=== PATIENT | male | born 1950 | race Caucasian/White ===

== ENCOUNTER 2016-09-15 08:14 | Emergency (ER) | payer OTHER ==
--- NOTE | 2016-09-15 08:38 | ED ---
Fall HPI - General Chief Complaint: Fall Stated Complaint: LEFT SHOULDER INJURY FROM FALL Time Seen by Provider: 09/15/16 08:14 Source: patient, EMS, RN notes reviewed Mode of arrival: EMS - History of Present Illness Initial Comments: This is a 66-year-old male who states he tripped while he was walking prior to admission he fell landing on his left shoulder. He complains left shoulder pain. He denies any head neck or back pain. He denies any loss of function to his lower extremities he has limited range of motion of left upper because of the pain. He points to the anterior left shoulder. He denies any hand wrist or forearm or elbow pain on the left side. No other injuries are reported. MD Complaint: fall - Related Data Home Medications Medication Instructions Recorded Confirmed amLODIPine [Norvasc] 10 mg PO DAILY 07/29/15 09/15/16 Previous Rx's Medication Instructions Recorded Metoprolol Tartrate [Lopressor] 12.5 mg PO BID #60 tab 12/31/14 Ibuprofen 800 mg PO Q6HR PRN #20 tablet 09/15/16 Allergies Allergy/AdvReac Type Severity Reaction Status Date / Time No Known Allergies Allergy Verified 09/15/16 08:41 Review of Systems ROS Statement: Those systems with pertinent positive or pertinent negative responses have been documented in the HPI. ROS Other: All systems not noted in ROS Statement are negative. Past Medical History Past Medical History: Hypertension Additional Past Medical History / Comment(s): Hx calculus of bile duct, acute cholecystitis, pancreatitis. History of Any Multi-Drug Resistant Organisms: None Reported Past Surgical History: Orthopedic Surgery Additional Past Surgical History / Comment(s): cervical surgery, bilateral cataract removal with lens implants, umbilical hernia as a baby, bile duct stent , ERCP, C3-6 plate Past Anesthesia/Blood Transfusion Reactions: No Reported Reaction Past Psychological History: No Psychological Hx Reported Additional Psychological History / Comment(s): Pt states at this time his younger brother lives with him. He ambulates with a cane. He does not drive. He has helpful neighbors who will drive him places. Smoking Status: Current every day smoker Past Alcohol Use History: Occasional Additional Past Alcohol Use History / Comment(s): Started smoking at age 27, smokes less than a ppd. Past Drug Use History: None Reported - Past Family History Father Family Medical History: Cancer Additional Family Medical History / Comment(s): Melanoma Mother Family Medical History: Cancer Additional Family Medical History / Comment(s): Breast cancer. General Exam - General Exam Comments Initial Comments: This is a well-developed well-nourished awake alert oriented times 3 male he does demonstrate a [place] Coma Scale of 15 Limitations: no limitations General appearance: alert Head exam: Present: atraumatic, normocephalic, normal inspection Eye exam: Present: normal appearance, PERRL, EOMI. Absent: scleral icterus, conjunctival injection, periorbital swelling ENT exam: Present: normal exam, mucous membranes moist Neck exam: Present: normal inspection, full ROM. Absent: tenderness, meningismus, lymphadenopathy Respiratory exam: Present: normal lung sounds bilaterally. Absent: respiratory distress, wheezes, rales, rhonchi, stridor Cardiovascular Exam: Present: regular rate, normal rhythm, normal heart sounds. Absent: systolic murmur, diastolic murmur, rubs, gallop, clicks GI/Abdominal exam: Present: soft, normal bowel sounds. Absent: distended, tenderness, guarding, rebound, rigid Extremities exam: Present: full ROM, tenderness (Tenderness to the anterior shoulder no clinical evidence of subluxation or some tenderness over the distal left clavicle no definite before meals step-off no crepitation. Distal to the proximal humerus no tenderness. Full range of motion elbow. There is some tenderness over the before meals joint with some evidence of separation.), normal capillary refill. Absent: pedal edema, joint swelling, calf tenderness Back exam: Present: normal inspection Neurological exam: Present: alert, oriented X3, CN II-XII intact Psychiatric exam: Present: normal affect, normal mood Skin exam: Present: warm, dry, intact, normal color. Absent: rash Course Vital Signs 09/15/16 08:15 Temperature 97.5 F L Pulse Rate 86 Respiratory 18 Rate Blood Pressure 146/76 O2 Sat by Pulse 98 Oximetry Medical Decision Making - Medical Decision Making I did discuss [employer] the patient he will be discharged with sling pain medication and orthopedic referral. - Radiology Data Radiology results: report reviewed (I did review the imaging and reports are is evidence of a grade 3 before meals separation a lot of no definite fractures with dorsal suspicious possible chip seen.), image reviewed Disposition Clinical Impression: Fall, Grade 3 separation of left shoulder Disposition: HOME SELF-CARE Condition: Good Instructions: Fall Prevention for Older Adults (ED), Acromioclavicular Separation (ED) Prescriptions: Ibuprofen 800 mg PO Q6HR PRN #20 tablet PRN Reason: Pain Referrals: Justice Silva MD [Primary Care Provider] - 1-2 days Gabriel Jensen DO [Doctor of Osteopathic Medicine] - 1-2 days
[2016-09-15] MEDS: IBUPROFEN 800 MG TAB PO STA (08:43)
--- NOTE | 2016-09-15 09:34 | XR ---
EXAMINATION TYPE: XR clavicle LT DATE OF EXAM: 09/15/2016 COMPARISON: NONE HISTORY: Pain TECHNIQUE: 2 views submitted FINDINGS: There is widening of the AC joint and elevation of the left clavicle. Bony density noted ap pears corticated. Clavicle grossly intact. Previous surgery involving the cervical spine and arthropa thy of the AC joint. IMPRESSION: 1. Findings are suggestive of grade 3 AC joint separation. 2. Nonspecific bony densities in the region of the AC joint could potentially represent tiny chip fra cture. Suspect this is more likely chronic given appears to be well corticated.
--- NOTE | 2016-09-15 09:35 | XR ---
EXAMINATION TYPE: XR shoulder limited LT DATE OF EXAM: 09/15/2016 COMPARISON: NONE HISTORY: Pain TECHNIQUE: 2 views left shoulder FINDINGS: Glenohumeral joint maintained. Humerus intact. There is marked elevation of the clavicle an d widening of the AC joint. Tiny bony densities are seen superior to the acromion. IMPRESSION: 1. AC joint separation grade 3. 2. Tiny bony densities in the soft tissues may been the basis of previous trauma. Tiny chip fracture not entirely excluded correlate with point tenderness.
[2016-09-15 10:09] VITALS: BP 134/76; PULSE 81; RESP 16; TEMP 97.9
== END 2016-09-15 10:37 | disposition home or self-care (01) ==
LOC: EC 08:14
DX: S43.102A Unspecified dislocation of left acromioclavicular joint, initial encounter (principal); I10 Essential (primary) hypertension; F17.200 Nicotine dependence, unspecified, uncomplicated; Z79.899 Other long term (current) drug therapy; W18.09XA Striking against other object with subsequent fall, initial encounter; Y93.01 Activity, walking, marching and hiking; Y92.009 Unspecified place in unspecified non-institutional (private) residence as the place of occurrence of the external cause
CPT/HCPCS: 99284

== ENCOUNTER 2018-06-29 01:11 | Inpatient (IN) | payer MEDICARE, OTHER ==
--- NOTE | 2018-06-29 01:31 | ED ---
SOB HPI - General Chief Complaint: Shortness of Breath Stated Complaint: NOEMI Time Seen by Provider: 06/29/18 01:25 Source: patient, EMS Mode of arrival: EMS Limitations: no limitations - History of Present Illness Initial Comments: R be 68-year-old gentleman with limited past medical history who presents to the emergency department today for evaluation of shortness of breath. Patient reports that over the past couple days she's been feeling progressively more short of breath today he feels like he is coughing up a lot of clear fluid. He's never experienced anything like this in the past. Patient denies any history of congestive heart failure or heart disease. He denies any history of COPD. He is not a smoker. Signed patient denies any fevers but does admit to feeling cold and tired. He denies any specific body aches was does report he's been having a pretty significant charley horse-like discomfort in his right calf. Skin happening intermittently throughout the evening and throughout his time in the emergency department. Denies any chest pain or palpitations. Denies any abdominal pain or change in bowel or bladder habits. - Related Data Home Medications Medication Instructions Recorded Confirmed amLODIPine [Norvasc] 10 mg PO DAILY 07/29/15 09/15/16 Previous Rx's Medication Instructions Recorded Metoprolol Tartrate [Lopressor] 12.5 mg PO BID #60 tab 12/31/14 Ibuprofen 800 mg PO Q6HR PRN #20 tablet 09/15/16 HYDROcodone/APAP 5-325MG [[place] 5] 1 each PO Q6HR PRN #12 tab 03/10/17 Allergies Allergy/AdvReac Type Severity Reaction Status Date / Time No Known Allergies Allergy Verified 06/29/18 01:19 Review of Systems ROS Statement: Those systems with pertinent positive or pertinent negative responses have been documented in the HPI. ROS Other: All systems not noted in ROS Statement are negative. Past Medical History Past Medical History: Hypertension Additional Past Medical History / Comment(s): Hx calculus of bile duct, acute cholecystitis, pancreatitis. History of Any Multi-Drug Resistant Organisms: None Reported Past Surgical History: Orthopedic Surgery Additional Past Surgical History / Comment(s): cervical surgery, bilateral cataract removal with lens implants, umbilical hernia as a baby, bile duct stent, ERCP, C3-6 plate Past Anesthesia/Blood Transfusion Reactions: No Reported Reaction Past Psychological History: No Psychological Hx Reported Smoking Status: Current every day smoker Past Alcohol Use History: Occasional Past Drug Use History: None Reported - Past Family History Father Family Medical History: Cancer Additional Family Medical History / Comment(s): Melanoma Mother Family Medical History: Cancer Additional Family Medical History / Comment(s): Breast cancer. General Exam - General Exam Comments Initial Comments: Physical Exam GENERAL: Chronically ill-appearing gentleman who appears much older than his stated age HENT: Normocephalic, Atraumatic. EYES: PERRL, EOMI Conjunctival pallor PULMONARY: Tachypnea, wet lung sounds Productive cough of clear sputum CARDIOVASCULAR: Bradycardic, regular 1+ pitting edema bilateral lower extremities ABDOMEN: Soft and nontender with normal bowel sounds. SKIN: Skin is pale and dry : Deferred NEUROLOGIC: Patient is alert and oriented x3. Moving all extremities spontaneously MUSCULOSKELETAL: Normal extremities with adequate strength and full range of motion. No lower extremity swelling or edema. No calf tenderness. PSYCHIATRIC: Normal psychiatric evaluation. Limitations: no limitations Limitations: no limitations Course Vital Signs 06/29/18 06/29/18 06/29/18 01:14 01:32 02:00 Pulse Rate 62 56 L 60 Respiratory 20 20 20 Rate Blood Pressure 88/46 90/44 90/44 O2 Sat by Pulse 95 100 Oximetry 06/29/18 06/29/18 06/29/18 02:30 03:00 03:30 Pulse Rate 60 60 64 Respiratory 20 20 20 Rate Blood Pressure 90/45 89/41 114/60 O2 Sat by Pulse 97 96 Oximetry Medical Decision Making - Medical Decision Making The patient was seen and evaluated, history was obtained from the patient Patient has not seen often in in our hospital has limited past medical history he is presenting with generalized malaise and cough productive of clear sputum Upon initial evaluation the patient's noted be hypotensive, bradycardic and hypothermic Sepsis workup was initiated as well as a TSH and evaluation for heart failure Labs resulted with significant abnormalities including acute anemia with hemoglobin of only 8.1, most recent hemoglobin was 14 but that was a number of years ago Patient has chronic kidney disease at baseline baseline creatinine is usually to however today his creatinine is greater than 4 with a very high BUNs suggestive of prerenal cause. I suspect that this is multifactorial relating to the acute anemia possible heart failure and dehydration TSH resulted greater than 8, this is indicative of hypothyroidism After patient's hemoglobin resulted low a stool guaiac was obtained. This is noted to be positive however there was no gross melena or bleeding. GI will be consult to during this admission. [facility] orders were placed - Lab Data Result diagrams: 06/29/18 01:56 06/29/18 01:56 Lab Results 06/29/18 06/29/18 06/29/18 Range/Units 01:56 01:56 01:56 WBC 7.7 (3.8-10.6) k/uL RBC 2.34 L (4.30-5.90) m/uL Hgb 8.1 L (13.0-17.5) gm/dL Hct 27.2 L (39.0-53.0) % MCV 116.4 H (80.0-100.0) fL MCH 34.6 (25.0-35.0) pg MCHC 29.8 L (31.0-37.0) g/dL RDW 18.1 H (11.5-15.5) % PT (9.0-12.0) sec INR (<1.2) APTT (22.0-30.0) sec Sodium 142 (137-145) mmol/L Potassium 5.0 (3.5-5.1) mmol/L Chloride 116 H (98-107) mmol/L Carbon Dioxide 11 L (22-30) mmol/L Anion Gap 15 mmol/L BUN 82 H (9-20) mg/dL Creatinine 4.84 H (0.66-1.25) mg/dL Est GFR (CKD-EPI)AfAm 13 (>60 ml/min/1.73 sqM) Est GFR (CKD-EPI)NonAf 12 (>60 ml/min/1.73 sqM) Glucose 85 (74-99) mg/dL Plasma Lactic Acid Fred 1.0 (0.7-2.0) mmol/L Calcium 6.5 L (8.4-10.2) mg/dL Total Bilirubin 0.3 (0.2-1.3) mg/dL AST 55 (17-59) U/L ALT 55 (21-72) U/L Alkaline Phosphatase 109 (38-126) U/L Troponin I (0.000-0.034) ng/mL Total Protein 5.1 L (6.3-8.2) g/dL Albumin 2.6 L (3.5-5.0) g/dL TSH 8.700 H (0.465-4.680) mIU/L Free T4 0.47 L (0.78-2.19) ng/dL Stool Occult Blood (Negative) 06/29/18 06/29/18 06/29/18 Range/Units 01:56 01:56 04:16 WBC (3.8-10.6) k/uL RBC (4.30-5.90) m/uL Hgb (13.0-17.5) gm/dL Hct (39.0-53.0) % MCV (80.0-100.0) fL MCH (25.0-35.0) pg MCHC (31.0-37.0) g/dL RDW (11.5-15.5) % PT 10.5 (9.0-12.0) sec INR 1.0 (<1.2) APTT 31.8 H (22.0-30.0) sec Sodium (137-145) mmol/L Potassium (3.5-5.1) mmol/L Chloride (98-107) mmol/L Carbon Dioxide (22-30) mmol/L Anion Gap mmol/L BUN (9-20) mg/dL Creatinine (0.66-1.25) mg/dL Est GFR (CKD-EPI)AfAm (>60 ml/min/1.73 sqM) Est GFR (CKD-EPI)NonAf (>60 ml/min/1.73 sqM) Glucose (74-99) mg/dL Plasma Lactic Acid Fred (0.7-2.0) mmol/L Calcium (8.4-10.2) mg/dL Total Bilirubin (0.2-1.3) mg/dL AST (17-59) U/L ALT (21-72) U/L Alkaline Phosphatase (38-126) U/L Troponin I <0.012 (0.000-0.034) ng/mL Total Protein (6.3-8.2) g/dL Albumin (3.5-5.0) g/dL TSH (0.465-4.680) mIU/L Free T4 (0.78-2.19) ng/dL Stool Occult Blood Positive (Negative) Disposition Clinical Impression: Acute anemia, GIB (gastrointestinal bleeding), Hypothyroid, MUMTAZ (acute kidney injury), Dehydration Disposition: ADMITTED IP TO THIS HOSP Condition: Serious Is patient prescribed a controlled substance at d/c from ED?: No Referrals: Justice Silva MD [Primary Care Provider] - 1-2 days
[2018-06-29] MEDS ORDERED: SODIUM CHLORIDE 0.9% 500 ML 500 ML IV SCH (01:45)
[2018-06-29 02:06] LABS: Anisocytosis Slight; Basophils % (A) 0 %; Eosinophils # (A) 0.1 k/uL (0-0.7); Eosinophils % (A) 1 %; HCT 27.2 % (39.0-53.0); HGB 8.1 gm/dL (13.0-17.5); Hypochromasia Marked; Lymphocytes # (A) 0.9 k/uL (1.0-4.8); Lymphocytes % (A) 12 %; MCH 34.6 pg (25.0-35.0); MCHC 29.8 g/dL (31.0-37.0); MCV 116.4 fL (80.0-100.0); Monocytes # (A) 0.3 k/uL (0-1.0); Monocytes % (A) 4 %; Neutrophils # (A) 6.3 k/uL (1.3-7.7); Neutrophils % (A) 83 %; Poikilocytosis Slight; RBC 2.34 m/uL (4.30-5.90); RDW 18.1 % (11.5-15.5); WBC 7.7 k/uL (3.8-10.6)
[2018-06-29 02:16] LABS: Albumin 2.6 g/dL (3.5-5.0); Total Bilirubin 0.3 mg/dL (0.2-1.3); Total Protein 5.1 g/dL (6.3-8.2)
[2018-06-29 02:20] LABS: Partial Thromboplastin Time 31.8 sec (22.0-30.0); Prothrombin Time 10.5 sec (9.0-12.0)
[2018-06-29 02:22] LABS: Calcium 6.5 mg/dL (8.4-10.2)
[2018-06-29] MEDS ORDERED: NALOXONE 0.4 MG/ML 1 ML VIAL IV PRN (02:51)
[2018-06-29] MEDS ORDERED: FUROSEMIDE 10 MG/ML 2 ML VIAL IV PRN (02:58)
[2018-06-29] MEDS ORDERED: SODIUM CHLORIDE 0.9% 1,000 ML IV ONE (02:58)
[2018-06-29 03:13] LABS: T4, Free (Free Thyroxine) 0.47 ng/dL (0.78-2.19)
[2018-06-29 05:52] LABS: Platelet Count 81 k/uL (150-450)
[2018-06-29 05:53] LABS: Macrocytosis Marked; Poikilocytosis (M) Present
[2018-06-29 06:49] LABS: Appearance,Urine Cloudy (Clear); Bilirubin,Urine Negative (Negative); Blood,Urine Moderate (Negative); Color,Urine Yellow; Glucose,Urine (UA) Negative (Negative); Ketones,Urine Negative (Negative); Leukocyte Esterase,Urine Moderate (Negative); Mucus,Urine Rare /hpf; Nitrite,Urine Negative (Negative); PH, Urine 5.5 (5.0-8.0); Protein,Urine 2+ (Negative); RBC,Urine 56 /hpf (0-5); Specific Gravity,Urine 1.015 (1.001-1.035); Squamous Epithelial Cell,Urine <1 /hpf (0-4); Urobilinogen,Urine <2.0 mg/dL (<2.0); WBC,Urine 26 /hpf (0-5)
--- NOTE | 2018-06-29 07:36 | XR ---
EXAMINATION TYPE: XR chest 2V DATE OF EXAM: 06/29/2018 COMPARISON: 12/30/2014 HISTORY: Fever TECHNIQUE: Frontal and lateral views of the chest are obtained. FINDINGS: Flattening of the diaphragms on the lateral view relates underlying COPD. Chronic healed l eft fracture deformity is seen of the humerus. Only trace pleural effusions remain, improved from the prior. No focal consolidation or pneumothorax. Cervical fusion device is partially visualized. Degen erative changes of the osseous structures are redemonstrated. Cardiomediastinal silhouette is stable. Minimal pulmonary vascular congestion is suspected. IMPRESSION: 1. Improved aeration of the left lung base. No focal consolidation to suggest pneumonia. 3. Very mild pulmonary vascular congestion.
[2018-06-29] MEDS ORDERED: LEVOTHYROXINE IVP 100 MCG/5 ML VIAL IV SCH (09:00)
--- NOTE | 2018-06-29 13:20 | P.CONS ---
History of Present Illness - Reason for Consult Consult date: 06/29/18 [facility] Requesting physician: Sabas Dukes - Chief Complaint Dyspnea - History of Present Illness 68-year-old gentleman admitted with shortness of breath 2-3 days with exertion. Past medical history of EtOH abuse drinks liquor beer on a daily basis, distal common bile duct stricture 2014 pancreatitis with previous biliary stenting, thrombocytopenia, macrocytic anemia. Admission hemoglobin 8.1. MCV 116. Platelet 81,000. INR 1.0. Previous hemoglobin 2016 was 14.6. BUN 82. Creatinine 4.8. FOBT positive. Chest x-ray no pneumonia. Very mild pulmonary vascular congestion. LFTs within normal limits. Troponin less than 0.012. Denies overt bleeding such as hematemesis hematochezia or melena. No history of GI bleed. No recent EGD colonoscopy. Mild indigestion over the last few days nothing severe no emesis. Review of Systems Constitutional: Denies fever, chills, sweats, weight gain, or loss. HEENT: Negative for migraines, blurred vision or loss, earaches, drainage, tinnitus, oral mucosal lesions, dysphagia, or odynophagia. Cardiac: Negative for chest pain, arrhythmias, or palpitation. Respiratory: Admitted with for shortness of breath, denies hemoptysis, cough, or sputum production. Gastrointestinal: See HPI for pertinent findings. Genitourinary: Negative for hematuria, urgency, frequency, polyuria, dysuria, or penile discharge. Musculoskeletal: Negative for muscle aches, swelling, arthritis, and arthralgias. Neurologic: Negative for stroke or TIA. Endocrine: Negative for thyroid problems. Skin: Negative for rash or itching. Psychiatric: Negative history for depression and anxiety Past Medical History Past Medical History: Hypertension Additional Past Medical History / Comment(s): Hx calculus of bile duct, acute cholecystitis, pancreatitis. History of Any Multi-Drug Resistant Organisms: None Reported Past Surgical History: Orthopedic Surgery Additional Past Surgical History / Comment(s): cervical surgery, bilateral cataract removal with lens implants, umbilical hernia as a baby, bile duct stent, ERCP, C3-6 plate Past Anesthesia/Blood Transfusion Reactions: No Reported Reaction Past Psychological History: No Psychological Hx Reported Smoking Status: Current every day smoker Past Alcohol Use History: Occasional Past Drug Use History: None Reported - Past Family History Father Family Medical History: Cancer Additional Family Medical History / Comment(s): Melanoma Mother Family Medical History: Cancer Additional Family Medical History / Comment(s): Breast cancer. Medications and Allergies Home Medications Medication Instructions Recorded Confirmed Type Metoprolol Tartrate [Lopressor] 12.5 mg PO BID #60 tab 12/31/14 06/29/18 Rx Ergocalciferol [Vitamin D2] 50,000 unit PO Q7D 06/29/18 06/29/18 History Magnesium Oxide [Mag-Ox] 400 mg PO DAILY 06/29/18 06/29/18 History Sodium Bicarbonate Tab 650 mg PO DAILY 06/29/18 06/29/18 History amLODIPine BESYLATE [Norvasc] 10 mg PO DAILY 06/29/18 06/29/18 History Allergies Allergy/AdvReac Type Severity Reaction Status Date / Time No Known Allergies Allergy Verified 06/29/18 10:05 Physical Exam Vitals: Vital Signs Temp Pulse Resp BP Pulse Ox 06/29/18 10:17 98 F 73 22 98/51 98 06/29/18 09:40 98.2 F 22 102/48 98 06/29/18 09:01 97.3 F L 72 22 99/52 98 06/29/18 08:39 97.4 F L 74 22 99/50 99 06/29/18 07:54 97.3 F L 74 22 97/49 99 06/29/18 07:14 97.3 F L 73 24 96/49 99 06/29/18 06:30 68 12 90/46 86 L 06/29/18 06:00 71 12 89/44 97 06/29/18 05:30 68 12 89/53 97 06/29/18 05:00 66 12 112/52 100 06/29/18 04:30 71 16 99/39 100 06/29/18 04:00 69 16 103/47 99 06/29/18 03:30 64 20 114/60 96 06/29/18 03:00 60 20 89/41 06/29/18 02:30 60 20 90/45 97 06/29/18 02:00 60 20 90/44 100 06/29/18 01:32 56 L 20 90/44 95 06/29/18 01:14 62 20 88/46 Intake and Output 06/28/18 06/29/18 06/29/18 22:59 06:59 14:59 Intake Total 0 Balance 0 Intake: Blood Product 0 Rc As-1 Unit 0 [id number] Rc As-1 Unit 0 [id number] Other: Weight 64.41 kg General appearance: The patient is alert, oriented, in no acute distress. HET: Head is normocephalic and atraumatic. Pupils are equal and reactive. Oropharynx is clear without lesions. Neck: Supple without lymphadenopathy. Trachea midline. Heart: S1 S2. Regular rate and rhythm. Lungs: Congested diminished in bases bilaterally intermittent dry cough. Abdomen: Soft, nontender, nondistended with bowel sounds. No peritoneal signs. No palpable organomegaly or masses. Extremities: Normal skin color and turgor. No cyanosis, rash, ulceration, clubbing, or edema. Radial and pedal pulses are 2/4 bilaterally. Neurological: No focal deficits. Strength and sensation are grossly intact. Results CBC & Chem 7: 06/29/18 01:56 06/29/18 01:56 Labs: Abnormal Lab Results - Last 24 Hours (Table) 06/29/18 06/29/18 06/29/18 Range/Units 01:56 01:56 01:56 RBC 2.34 L (4.30-5.90) m/uL Hgb 8.1 L (13.0-17.5) gm/dL Hct 27.2 L (39.0-53.0) % MCV 116.4 H (80.0-100.0) fL MCHC 29.8 L (31.0-37.0) g/dL RDW 18.1 H (11.5-15.5) % Plt Count 81 L (150-450) k/uL Lymphocytes # 0.9 L (1.0-4.8) k/uL APTT 31.8 H (22.0-30.0) sec Chloride 116 H (98-107) mmol/L Carbon Dioxide 11 L (22-30) mmol/L BUN 82 H (9-20) mg/dL Creatinine 4.84 H (0.66-1.25) mg/dL Calcium 6.5 L (8.4-10.2) mg/dL Total Protein 5.1 L (6.3-8.2) g/dL Albumin 2.6 L (3.5-5.0) g/dL TSH 8.700 H (0.465-4.680) mIU/L Free T4 0.47 L (0.78-2.19) ng/dL Urine Protein (Negative) Urine Blood (Negative) Ur Leukocyte Esterase (Negative) Urine RBC (0-5) /hpf Urine WBC (0-5) /hpf Urine Mucus (None) /hpf Crossmatch 06/29/18 06/29/18 Range/Units 03:30 06:22 RBC (4.30-5.90) m/uL Hgb (13.0-17.5) gm/dL Hct (39.0-53.0) % MCV (80.0-100.0) fL MCHC (31.0-37.0) g/dL RDW (11.5-15.5) % Plt Count (150-450) k/uL Lymphocytes # (1.0-4.8) k/uL APTT (22.0-30.0) sec Chloride (98-107) mmol/L Carbon Dioxide (22-30) mmol/L BUN (9-20) mg/dL Creatinine (0.66-1.25) mg/dL Calcium (8.4-10.2) mg/dL Total Protein (6.3-8.2) g/dL Albumin (3.5-5.0) g/dL TSH (0.465-4.680) mIU/L Free T4 (0.78-2.19) ng/dL Urine Protein 2+ H (Negative) Urine Blood Moderate H (Negative) Ur Leukocyte Esterase Moderate H (Negative) Urine RBC 56 H (0-5) /hpf Urine WBC 26 H (0-5) /hpf Urine Mucus Rare H (None) /hpf Crossmatch See Detail Chest x-ray: report reviewed (Dr. Bean) Assessment and Plan (1) Macrocytic anemia Narrative/Plan: 68-year-old male with a history of underlying daily EtOH abuse suspect underlying alcohol liver disease presents with acute kidney injury symptomatic anemia suspect component of acute blood loss dyspnea without overt bleeding macrocytic anemia underlying thrombocytopenia with positive FOBT. Underlying peptic ulcer disease portal gastropathy esophageal gastric varices in the setting of long-standing EtOH abuse bleeding AVM cannot be excluded. Current Visit: Yes Status: Acute Code(s): D53.9 - NUTRITIONAL ANEMIA, UNSPECIFIED SNOMED Code(s): 09483610 (2) Thrombocytopenia Current Visit: Yes Status: Acute Code(s): D69.6 - THROMBOCYTOPENIA, UNS PECIFIED SNOMED Code(s): 913992858 (3) Dyspnea Current Visit: Yes Status: Acute Code(s): R06.00 - DYSPNEA, UNSPECIFIED SNOMED Code(s): 698791710 (4) MUMTAZ (acute kidney injury) Current Visit: Yes Status: Acute Code(s): N17.9 - ACUTE KIDNEY FAILURE, UNSPECIFIED SNOMED Code(s): 99467423 Plan: 1. Stabilization of respiratory patient is still reporting shortness of breath status. Consideration for inpatient EGD colonoscopy per clinical course. Daily CBC. Protonix 40 mg twice daily. Alcohol abstinence advised. Clear liquid diet. Will follow closely with you. Thank you for this kind referral and the opportunity to participate in the care of your patient. This consultation was discussed with Dr. Bean. The impression and plan of care have been directed as dictated.
[2018-06-29] MEDS: PANTOPRAZOLE 40 MG/10 ML VIAL IVP SCH ×2 (16:04→20:46)
--- NOTE | 2018-06-29 16:14 | P.HPIM ---
History of Present Illness This is a pleasant 68 years old male with past medical history of hypertension and pancreatitis, status post ERCP and bile duct stent with cholecystitis, alcohol abuse. Presents because of dyspnea of one week duration getting wors ened over the last 3-4 days duration. With no chest pain, no nausea vomiting. The patient says he has a lot of is patent. He has harsh breath sounds that looks like weight. He has bilateral leg swelling. Patient looks tired and weak On admission his hemoglobin is 8.1, platelets 81, WBC 7.7. INR 1.0, sodium 142, creatinine 4.8, baseline creatinine 1.5-2.0. TSH 8.7, free T4 is low at 0.47. Urinalysis suspicious for infection. He is status post 2 units of blood transfusion . Chest x-ray showing mild pulmonary congestion as per radiologist's report. FOBT is positive. EKG shows sinus bradycardia at 59 with QTC is 522. Review of Systems CONSTITUTIONAL: No fever, no malaise, no fatigue. HEENT: No recent visual problems or hearing problems. Denied any sore throat. CARDIOVASCULAR: No orthopnea, PND, no palpitations, no syncope. PULMONARY: No shortness of breath, no cough, no hemoptysis. GASTROINTESTINAL: No diarrhea, no nausea, no vomiting, no abdominal pain. Normoactive bowel sounds. NEUROLOGICAL: No headaches, no weakness, no numbness. HEMATOLOGICAL: Denies any bleeding or petechiae. GENITOURINARY: Denies any burning micturition, frequency, or urgency. MUSCULOSKELETAL/RHEUMATOLOGICAL: Denies any joint pain, swelling, or any muscle pain. ENDOCRINE: Denies any polyuria or polydipsia. Past Medical History Past Medical History: Hypertension Additional Past Medical History / Comment(s): Hx calculus of bile duct, acute cholecystitis, pancreatitis. History of Any Multi-Drug Resistant Organisms: None Reported Past Surgical History: Orthopedic Surgery Additional Past Surgical History / Comment(s): cervical surgery, bilateral cataract removal with lens implants, umbilical hernia as a baby, bile duct stent, ERCP, C3-6 plate Past Anesthesia/Blood Transfusion Reactions: No Reported Reaction Past Psychological History: No Psychological Hx Reported Smoking Status: Current every day smoker Past Alcohol Use History: Occasional Past Drug Use History: None Reported - Past Family History Father Family Medical History: Cancer Additional Family Medical History / Comment(s): Melanoma Mother Family Medical History: Cancer Additional Family Medical History / Comment(s): Breast cancer. Medications and Allergies Home Medications Medication Instructions Recorded Confirmed Type Metoprolol Tartrate [Lopressor] 12.5 mg PO BID #60 tab 12/31/14 06/29/18 Rx Ergocalciferol [Vitamin D2] 50,000 unit PO Q7D 06/29/18 06/29/18 History Magnesium Oxide [Mag-Ox] 400 mg PO DAILY 06/29/18 06/29/18 History Sodium Bicarbonate Tab 650 mg PO DAILY 06/29/18 06/29/18 History amLODIPine BESYLATE [Norvasc] 10 mg PO DAILY 06/29/18 06/29/18 History Allergies Allergy/AdvReac Type Severity Reaction Status Date / Time No Known Allergies Allergy Verified 06/29/18 10:05 Physical Exam Vitals: Vital Signs Temp Pulse Pulse Resp BP BP Pulse Ox 06/29/18 14:57 97.7 F 66 16 112/57 95 06/29/18 12:03 72 24 108/55 98 06/29/18 12:00 79.9 F L 69 17 122/61 96 06/29/18 11:35 70 24 115/78 98 06/29/18 11:24 97.8 F 72 22 106/65 98 06/29/18 10:50 98 F 70 22 103/50 98 06/29/18 10:17 98 F 73 22 98/51 98 06/29/18 09:40 98.2 F 22 102/48 98 06/29/18 09:01 97.3 F L 72 22 99/52 98 06/29/18 08:39 97.4 F L 74 22 99/50 99 06/29/18 07:54 97.3 F L 74 22 97/49 99 06/29/18 07:14 97.3 F L 73 24 96/49 99 06/29/18 06:30 68 12 90/46 86 L 06/29/18 06:00 71 12 89/44 97 06/29/18 05:30 68 12 89/53 97 06/29/18 05:00 66 12 112/52 100 06/29/18 04:30 71 16 99/39 100 06/29/18 04:00 69 16 103/47 99 06/29/18 03:30 64 20 114/60 96 06/29/18 03:00 60 20 89/41 06/29/18 02:30 60 20 90/45 97 06/29/18 02:00 60 20 90/44 100 06/29/18 01:32 56 L 20 90/44 95 06/29/18 01:14 62 20 88/46 Intake and Output 06/29/18 06/29/18 06/29/18 06:59 14:59 22:59 Intake Total 0 Balance 0 Intake: Blood Product 0 Rc As-1 Unit 0 [id number] Rc As-1 Unit 0 [id number] Other: Voiding Method Indwelling Catheter Weight 64.41 kg GENERAL: The patient is alert and oriented x3, not in any acute distress. Well developed, well nourished. HEENT: Pupils are round and equally reacting to light. EOMI. No scleral icterus. No conjunctival pallor. Normocephalic, atraumatic. No pharyngeal erythema. No thyromegaly. CARDIOVASCULAR: S1 and S2 present. No murmurs, rubs, or gallops. -PULMONARY: Chest is clear to auscultation, no wheezing . Bilateral course crackles. ABDOMEN: Soft, nontender, nondistended, normoactive bowel sounds. No palpable organomegaly. MUSCULOSKELETAL: No joint swelling or deformity. -EXTREMITIES: No cyanosis, clubbing, . Bilateral leg edema NEUROLOGICAL: Gross neurological examination did not reveal any focal deficits. SKIN: No rashes. Results CBC & Chem 7: 06/29/18 01:56 06/29/18 01:56 Labs: Abnormal Lab Results - Last 24 Hours (Table) 06/29/18 06/29/18 06/29/18 Range/Units 01:56 01:56 01:56 RBC 2.34 L (4.30-5.90) m/uL Hgb 8.1 L (13.0-17.5) gm/dL Hct 27.2 L (39.0-53.0) % MCV 116.4 H (80.0-100.0) fL MCHC 29.8 L (31.0-37.0) g/dL RDW 18.1 H (11.5-15.5) % Plt Count 81 L (150-450) k/uL Lymphocytes # 0.9 L (1.0-4.8) k/uL APTT 31.8 H (22.0-30.0) sec Chloride 116 H (98-107) mmol/L Carbon Dioxide 11 L (22-30) mmol/L BUN 82 H (9-20) mg/dL Creatinine 4.84 H (0.66-1.25) mg/dL Calcium 6.5 L (8.4-10.2) mg/dL Total Protein 5.1 L (6.3-8.2) g/dL Albumin 2.6 L (3.5-5.0) g/dL TSH 8.700 H (0.465-4.680) mIU/L Free T4 0.47 L (0.78-2.19) ng/dL Urine Protein (Negative) Urine Blood (Negative) Ur Leukocyte Esterase (Negative) Urine RBC (0-5) /hpf Urine WBC (0-5) /hpf Urine Mucus (None) /hpf Crossmatch 06/29/18 06/29/18 Range/Units 03:30 06:22 RBC (4.30-5.90) m/uL Hgb (13.0-17.5) gm/dL Hct (39.0-53.0) % MCV (80.0-100.0) fL MCHC (31.0-37.0) g/dL RDW (11.5-15.5) % Plt Count (150-450) k/uL Lymphocytes # (1.0-4.8) k/uL APTT (22.0-30.0) sec Chloride (98-107) mmol/L Carbon Dioxide (22-30) mmol/L BUN (9-20) mg/dL Creatinine (0.66-1.25) mg/dL Calcium (8.4-10.2) mg/dL Total Protein (6.3-8.2) g/dL Albumin (3.5-5.0) g/dL TSH (0.465-4.680) mIU/L Free T4 (0.78-2.19) ng/dL Urine Protein 2+ H (Negative) Urine Blood Moderate H (Negative) Ur Leukocyte Esterase Moderate H (Negative) Urine RBC 56 H (0-5) /hpf Urine WBC 26 H (0-5) /hpf Urine Mucus Rare H (None) /hpf Crossmatch See Detail Microbiology - Last 24 Hours (Table) 06/29/18 06:22 Urine Culture - Preliminary Urine,Catheterized Thrombosis Risk Factor Assmnt - Choose All That Apply Any of the Below Risk Factors Present?: Yes Other Risk Factors: Yes Each Risk Factor Represents 2 Points: Age 61-74 years Other congenital or acquired thrombophilia - If yes, enter type in comment: No Thrombosis Risk Factor Assessment Total Risk Factor Score: 2 Thrombosis Risk Factor Assessment Level: Low Risk Assessment and Plan Assessment: Fluid overload, with pulmonary congestion, leg swelling. Possible GI bleed Acute blood loss anemia secondary to above Urinary tract infection Acute kidney injury Chronic kidney disease stage III Hypothyroidism Essential hypertension History of pancreatitis History of acute cholecystitis History of bilateral stones status post biliary stent Plan: This is a pleasant 68 years old male who presents because of GI bleed, renal failure and UTI. Continue with IV lasix. GI consult is appreciated and they plan for EGD/colonoscopy. Continue with Protonix twice a day. Continue with thyroid hormone therapy. Pulmonary consult was called. Pain management. Labs and medication were reviewed.. Continue same treatment. Continue with symptomatic treatment. Resume home medication. Monitor lytes and vitals. DVT and GI prophylaxis. Further recommendations of the clinical course of the patient DVT prophylaxis: no heparin and review of GI bleed GI Prophylaxis: ppi Prognosis is guarded
[2018-06-29] MEDS ORDERED: FUROSEMIDE 10 MG/ML 4 ML VIAL IV ONE (16:16)
[2018-06-29 17:28] LABS: Glucose,Whole Blood 111 mg/dL (75-99)
[2018-06-29 20:12] LABS: Glucose,Whole Blood 150 mg/dL (75-99)
[2018-06-30 06:56] LABS: Glucose,Whole Blood 129 mg/dL (75-99)
[2018-06-30] MEDS: PANTOPRAZOLE 40 MG/10 ML VIAL IVP SCH ×2 (08:21→22:24)
[2018-06-30] MEDS: SODIUM BICARBONATE TAB 650 MG TAB PO SCH (08:28)
[2018-06-30] MEDS: IPRATROPIUM-ALBUTEROL 3 ML NEB INHALATION PRN ×2 (08:57→19:48)
[2018-06-30 08:59] LABS: Potassium 5.5 mmol/L (3.5-5.1)
[2018-06-30 09:00] LABS: ABG Base Excess -19.1 mmol/L; ABG HCO3 11 mmol/L (21-25); ABG Oxygen Saturation 95.8 % (94-97); ABG PCO2 39 mmHg (35-45); ABG PO2 87 mmHg (83-108); ABG TCO2 12 mmol/L (19-24)
[2018-06-30] MEDS ORDERED: amLODIPine 10 MG TAB PO SCH (09:00)
[2018-06-30] MEDS ORDERED: METOPROLOL TARTRATE 25 MG TAB PO SCH (09:00)
[2018-06-30] MEDS ORDERED: FUROSEMIDE 10 MG/ML 4 ML VIAL IV SCH (09:00)
[2018-06-30 09:05] LABS: Anisocytosis Moderate; HGB 9.9 gm/dL (13.0-17.5); Hypochromasia Marked; MCH 35.3 pg (25.0-35.0); MCHC 31.8 g/dL (31.0-37.0); Macrocytosis Marked; Mean Platelet Volume 10.2; Poikilocytosis Slight; RBC 2.79 m/uL (4.30-5.90); WBC 15.5 k/uL (3.8-10.6)
[2018-06-30 09:07] LABS: ABG PH 7.07 (7.35-7.45)
[2018-06-30 09:08] LABS: MCV 111.1 fL (80.0-100.0); Platelet Count 67 k/uL (150-450)
[2018-06-30 09:09] LABS: Calcium 6.1 mg/dL (8.4-10.2)
--- NOTE | 2018-06-30 09:11 | XR ---
EXAMINATION TYPE: XR chest 1V portable DATE OF EXAM: 06/30/2018 HISTORY: dyspnea. REFERENCE: Previous study dated 06/29/2018. FINDINGS: Heart size upper limits of normal. Pulmonary vasculature has improved. Interstitial change has improved. There continues to be a small left effusion. IMPRESSION: IMPROVING CHANGES OF PULMONARY EDEMA.
[2018-06-30 09:24] LABS: Band Neutrophils % 8 %; Metamyelocytes # (M) 0.31 k/uL (0); Metamyelocytes % 2 %; Myelocytes # (M) 0.16 k/uL (0); Myelocytes % 1 %; Nucleated Red Blood Cells 0 /100 WBC (0-0)
[2018-06-30 09:26] LABS: Large Platelets Present; Lymphocytes # (M) 1.24 k/uL (1.0-4.8); Monocytes # (M) 0.62 k/uL (0-1.0); Neutrophils % (M) 78 %; Poikilocytosis (M) Present; Total Cells Counted 200; Toxic Granulation Present
[2018-06-30] MEDS ORDERED: SUCCINYLCHOLINE CHLORIDE 100 MG/5 ML SYR IV ONE (09:30)
[2018-06-30] MEDS ORDERED: ETOMIDATE 2 MG/ML 10 ML VIAL ONE (09:30)
[2018-06-30] MEDS ORDERED: ePHEDrine SULFATE/0.9% NACL/PF 50 MG/5 ML SYRINGE IV ONE (09:30)
[2018-06-30] MEDS ORDERED: MIDAZOLAM 2 MG/2 ML VIAL ONE (09:30)
[2018-06-30] MEDS ORDERED: PROPOFOL 10 MG/ML 20 ML VIAL IV ONE (09:30)
[2018-06-30] MEDS ORDERED: NOREPINEPHRINE 4 MG in SODIUM CHLORIDE 0.9% 250 ML IV SCH (10:00)
[2018-06-30 10:09] LABS: Magnesium 2.2 mg/dL (1.6-2.3)
[2018-06-30 10:19] LABS: Phosphorus 11.1 mg/dL (2.5-4.5)
--- NOTE | 2018-06-30 10:19 | XR ---
EXAMINATION TYPE: XR chest 1V portable DATE OF EXAM: 06/30/2018 HISTORY: Tube placement. REFERENCE: Previous study dated 06/30/2018. FINDINGS: The patient has been intubated. The tip of the ET tube overlies the T3 vertebral body appro ximately 10 cm from the brett. An NG tube is been passed but its tip cannot be followed beyond the m id esophagus. The heart is not enlarged. The lungs appear clear. There is a small left effusion. IMPRESSION: 1. HIGH RIDING NG TUBE. 2. SMALL LEFT EFFUSION.
[2018-06-30 10:43] LABS: Glucose,Whole Blood 129 mg/dL (75-99)
[2018-06-30 10:51] LABS: ABG HCO3 11 mmol/L (21-25); ABG PCO2 39 mmHg (35-45); ABG PO2 >400 mmHg (83-108); ABG TCO2 12 mmol/L (19-24)
[2018-06-30 10:54] LABS: ABG PH 7.07 (7.35-7.45)
[2018-06-30] MEDS ORDERED: CISATRACURIUM 2 MG/ML 5 ML VIAL IV ONE (11:00)
[2018-06-30] MEDS: DEXTROSE 5% IN WATER 1,000 ML with SODIUM BICARB (1 MEQ/ML) 150 ML IV SCH ×2 (11:00→16:18)
--- NOTE | 2018-06-30 11:12 | PN ---
PROGRESS NOTE DATE OF DICTATION: June 30, 2018 Patient is a 68-year-old white male admitted to the hospital with shortness of breath, chest tightness for the last 2 days duration. While in the hospital, he was noted to have anemia, and hence we are consulted in regards to this issue. The patient is known to our service from previous office visits. He had history of heavy alcohol abuse in the past, had chronic pancreatitis with distal common bile duct stricture for which he underwent multiple ERCPs with CBD stent placement. The last one was approximately 2 years ago. The patient was in fact scheduled for a stent removal about a year and half ago, but never followed up. He presently denies any abdominal pain. He reports no nausea or vomiting. Denies any rectal bleeding or melena. He states that his shortness of the breath has been progressively getting worse and presently he is being transferred to the intensive care unit for closer monitoring. PHYSICAL EXAMINATION: He appears slightly uncomfortable because of respiratory distress. VITAL SIGNS: Stable. Blood pressure is 120/49, pulse is 72, temperature 96.4. HEENT examination unremarkable. Conjunctivae pink. Sclerae anicteric. Oral cavity no lesions. NECK: No jugular venous distention or lymph node enlargement. CHEST: Decreased breath sounds bilaterally. HEART: Regular rate and rhythm. ABDOMEN: Soft. Bowel sounds are positive. No organomegaly. Extremities: No pedal edema. Skin no rashes. The skin severe dry skin with rash around the neck and upper abdomen and upper chest. NEUROLOGIC: Awake, alert and oriented x3. No focal deficits. LABS: Done at the time of admission to the hospital, WBC was 7.7. Today it is increased to 15.5, hemoglobin 9.9, platelets are 67,000. BUN 101, creatinine 6.33, T-bilirubin 0.3. ALT, AST and alkaline phosphatase is within normal limits. ABGs from today, pH is 7.07, pCO2 39, PO2 87, and saturation is 95.8%. Influenza A and B were negative. IMPRESSION: 1. Shortness of breath, probably evidence of pulmonary congestion/fluid overload. The patient has severe metabolic acidosis and hence has been transferred to the intensive care unit for close monitoring of his respiratory status. 2. Anemia with no clinical evidence of active bleeding. 3. Thrombocytopenia. 4. History of heavy alcohol abuse with chronic liver disease. 5. History of pancreatitis with a CBD stricture, status post ERCP with stent placement about 2 years ago. 6. Chronic kidney disease. RECOMMENDATIONS: 1. Agree with transfer to the intensive care unit for closer monitoring of his respiratory status. 2. No plans on any endoscopic intervention at the present time. 3. His cardiopulmonary status is stabilized. 4. At this time, we will follow him closely during his hospital stay. Thank you for this consultation. ENRIQUE / RAMILA: [id number] /
[2018-06-30 11:35] LABS: ABG Base Excess -7.5 mmol/L; ABG HCO3 20 mmol/L (21-25); ABG Oxygen Saturation 98.6 % (94-97); ABG PCO2 44 mmHg (35-45); ABG PH 7.26 (7.35-7.45); ABG PO2 157 mmHg (83-108); ABG TCO2 21 mmol/L (19-24)
--- NOTE | 2018-06-30 11:53 | P.CRDCN ---
History of Present Illness Consult date: 06/30/18 Consult reason: chest pain History of present illness: IMPRESSION / ASSESSMENT: Chest pain Hypertension Acute hypoxic respiratory failure, acidosis, hypotension Acute renal failure Possible GI bleed and acute blood loss anemia Acute kidney injury with chronic kidney disease stage III Hypothyroidism History of pancreatitis, acute cholecystitis and common bile duct stenosis status post biliary stent History of alcohol abuse Acute coronary syndrome ruled out PLAN: Continue current plan per Dr. Singh Cardiology will follow on an as-needed basis. No sign of acute coronary syndrome. Please contact for any cardiac concerns. HPI This is a 68-year-old male with past medical history of hypertension and pancreatitis status post ERCP of bile duct stent with colitis and alcohol abuse. Patient presented to [facility] for dyspnea for a week worsening over the past 3-4 days. Patient was transfused 2 units packed RBCs for hemoglobin of 8.1 and stool for occult blood was positive. GI is considering for EGD colonoscopy. Patient has been started on Protonix twice daily. Through the night, patient was hypothermic and was placed on a bear hugger. Lab work this morning was completely abnormal and patient developed respiratory distress and transferred to the intensive care unit where Dr. Singh is managing his care. Patient has been intubated and placed on mechanical ventilation. Apparently patient had complained this morning of chest pain and this consult was requested. Prior to that patient was on clear liquid diet without nausea or vomiting. He was coughing up copious amounts of yellow tinged sputum. ROS: No fever chills or rigors, no cough, phlegm or expectoration, no nausea, vomiting or diarrhea, no hematuria, dysuria, no musculoskeletal complaints, no strokes or seizures, no skin lesions. EXAMINATION: Gen: This is a 68-year-old male. He is resting in bed appears to be comfortable and in no acute distress. Vital signs: Afebrile, heart rate in the 60s and 70s, blood pressure 120/49, pulse ox 98% on 3 L HEENT: Head is atraumatic, normocephalic. Pupils equal, round. Sclerae is anicteric. NECK: Supple. No JVD. No lymphadenopathy. No thyromegaly. LUNGS: Clear to auscultation. No wheezes or rhonchi. No intercostal retractions. HEART: Regular rate and rhythm. No murmur. ABDOMEN: Soft. Bowel sounds are present. No masses. No tenderness. EXTREMITIES: No pedal edema. No calf tenderness. NEUROLOGICAL: Patient is awake, alert and oriented x3. Cranial nerves 2 through 12 are grossly intact. REVIEW OF LABS, ECG & MEDICAL DATA WBC 15.5, hemoglobin 9.9, platelet count 67. ABGs pH 7.07, pCO2 39, pCO2 87, bicarb 11, total CO2 12, base excess -19.1, O2 saturation 95.8. Sodium 144, potassium 5.5, chloride 119, CO2 12, BUN 101, creatinine 6.33. Calcium 6.1, troponin negative 2 draws. TSH 8.7, free T4 0.47. Influenza testing negative. Chest x-ray showing mild pulmonary congestion. EKG sinus bradycardia at 59. No acute ST-T wave changes. Nurse practitioner note has been reviewed, I agree with documented findings and plan of care. Patient was seen and examined. Past Medical History Past Medical History: Hypertension Additional Past Medical History / Comment(s): Hx calculus of bile duct, acute cholecystitis, pancreatitis. History of Any Multi-Drug Resistant Organisms: None Reported Past Surgical History: Orthopedic Surgery Additional Past Surgical History / Comment(s): cervical surgery, bilateral cataract removal with lens implants, umbilical hernia as a baby, bile duct stent, ERCP, C3-6 plate Past Anesthesia/Blood Transfusion Reactions: No Reported Reaction Past Psychological History: No Psychological Hx Reported Smoking Status: Current every day smoker Past Alcohol Use History: Occasional Past Drug Use History: None Reported - Past Family History Father Family Medical History: Cancer Additional Family Medical History / Comment(s): Melanoma Mother Family Medical History: Cancer Additional Family Medical History / Comment(s): Breast cancer. Medications and Allergies Home Medications Medication Instructions Recorded Confirmed Type Metoprolol Tartrate [Lopressor] 12.5 mg PO BID #60 tab 12/31/14 06/29/18 Rx Ergocalciferol [Vitamin D2] 50,000 unit PO Q7D 06/29/18 06/29/18 History Magnesium Oxide [Mag-Ox] 400 mg PO DAILY 06/29/18 06/29/18 History Sodium Bicarbonate Tab 650 mg PO DAILY 06/29/18 06/29/18 History amLODIPine BESYLATE [Norvasc] 10 mg PO DAILY 06/29/18 06/29/18 History Allergies Allergy/AdvReac Type Severity Reaction Status Date / Time No Known Allergies Allergy Verified 06/29/18 10:05 Physical Exam Vitals: Vital Signs Temp Pulse Pulse Resp BP BP Pulse Ox 06/30/18 09:05 66 18 06/30/18 08:57 66 20 06/30/18 08:30 72 16 120/49 06/30/18 07:28 96.4 F L 06/30/18 07:03 96.1 F L 68 16 112/66 98 06/29/18 23:54 97.6 F 67 16 111/55 94 L 06/29/18 21:48 20 06/29/18 19:42 97.5 F L 82 20 120/62 95 06/29/18 17:13 92 L 06/29/18 14:57 97.7 F 66 16 112/57 95 06/29/18 12:03 72 24 108/55 98 06/29/18 12:00 79.9 F L 69 17 122/61 96 06/29/18 11:35 70 24 115/78 98 06/29/18 11:24 97.8 F 72 22 106/65 98 06/29/18 10:50 98 F 70 22 103/50 98 06/29/18 10:17 98 F 73 22 98/51 98 Intake and Output 06/29/18 06/30/18 06/30/18 22:59 06:59 14:59 Intake Total 150 Output Total 375 Balance 150 -375 Intake: Oral 150 Output: Urine 375 Other: Voiding Method Indwelling Catheter Indwelling Catheter # Voids 0 Weight 64.41 kg 69 kg Results 06/30/18 07:48 06/30/18 07:48 Cardiac Enzymes 06/30/18 Range/Units 07:48 Troponin I <0.012 (0.000-0.034) ng/mL CBC 06/30/18 Range/Units 07:48 WBC 15.5 H (3.8-10.6) k/uL RBC 2.79 L (4.30-5.90) m/uL Hgb 9.9 L D (13.0-17.5) gm/dL Hct 31.0 L (39.0-53.0) % Plt Count 67 L (150-450) k/uL Comprehensive Metabolic Panel 06/30/18 Range/Units 07:48 Sodium 144 (137-145) mmol/L Potassium 5.5 H (3.5-5.1) mmol/L Chloride 119 H (98-107) mmol/L Carbon Dioxide 12 L (22-30) mmol/L BUN 101 H* (9-20) mg/dL Creatinine 6.33 H (0.66-1.25) mg/dL Glucose 105 H (74-99) mg/dL Calcium 6.1 L* (8.4-10.2) mg/dL Current Medications Generic Name Dose Route Start Last Admin Trade Name Freq PRN Reason Stop Dose Admin Albuterol/Ipratropium 3 ml 06/30/18 08:41 06/30/18 08:57 Duoneb 0.5 Mg-3 Mg/3 Ml Soln INHALATION 3 ml RT-QID PRN Administration Shortness Of Breath Or Wheezing Amlodipine Besylate 10 mg 06/30/18 09:00 06/30/18 08:27 Norvasc PO 10 mg DAILY ANTHONY Administration Chlorhexidine Gluconate 15 ml 06/30/18 21:00 Peridex MUCOUS MEM BID [facility] Furosemide 40 mg 06/30/18 09:00 06/30/18 08:22 Lasix IV 40 mg Q12HR ANTHONY Administration Ceftriaxone Sodium 1 gm/ 50 mls @ 100 mls/hr 06/29/18 23:45 06/30/18 00:37 Sodium Chloride IVPB 100 mls/hr Q24H ANTHONY Administration Piperacillin Sod/Tazobactam 100 mls @ 25 mls/hr 06/30/18 10:00 Sod 3.375 gm/ Sodium Chloride IVPB Q12HR [facility] Sodium Bicarbonate 150 ml/ 1,150 mls @ 100 mls/hr 06/30/18 10:00 Dextrose/Water IV .[id number] [facility] Propofol 1,000 mg/ IV Solution 100 mls @ 0 mls/hr 06/30/18 09:45 IV .Q0M [facility] Protocol Titrate Norepinephrine Bitartrate 4 mg 254 mls @ 13.145 mls/hr 06/30/18 10:00 / Sodium Chloride IV .[id number] [facility] Protocol 0.05 MCG/KG/MIN Levothyroxine Sodium 100 mcg 07/01/18 06:30 Synthroid PO DAILY@0630 [facility] Metoprolol Tartrate 12.5 mg 06/30/18 09:00 Lopressor PO BID ANTHONY Naloxone HCl 0.2 mg 06/29/18 02:51 Narcan IV Q2M PRN Opioid Reversal Pantoprazole Sodium 40 mg 06/29/18 13:30 06/30/18 08:21 Protonix IVP 40 mg BID ANTHONY Administration Sodium Bicarbonate 650 mg 06/30/18 09:00 06/30/18 08:28 Sodium Bicarbonate Tab PO 650 mg DAILY ANTHONY Administration Intake and Output 06/29/18 06/30/18 06/30/18 22:59 06:59 14:59 Intake Total 150 Output Total 375 Balance 150 -375 Intake: Oral 150 Output: Urine 375 Other: Voiding Method Indwelling Catheter Indwelling Catheter # Voids 0 Weight 64.41 kg 69 kg 06/30/18 07:48 06/30/18 07:48
[2018-06-30] MEDS: NOREPINEPHRINE 32 MG in SODIUM CHLORIDE 0.9% 218 ML IV SCH (12:20)
[2018-06-30] MEDS ORDERED: SODIUM BICARB 8.4% 50 ML SYR (1 MEQ/ML) IV ONE (12:21)
[2018-06-30] MEDS ORDERED: SODIUM CHLORIDE 0.9% 1,000 ML IV ONE ×2 (12:23→12:24)
[2018-06-30] MEDS: SODIUM CHLORIDE 0.9% 1,000 ML IV ONE ×3 (12:40→12:43)
[2018-06-30] MEDS: PIPERACILLIN-TAZOBACTAM 3.375 GM in SODIUM CHLORIDE 0.9% 100 ML IVPB SCH ×2 (12:41→22:24)
--- NOTE | 2018-06-30 12:43 | P.CNPUL ---
History of Present Illness Consult date: 06/30/18 Requesting physician: [place] E Sheet Reason for consult: other (septic shock, severe metabolic acidosis and hypotension.) Chief complaint: Shortness of breath History of present illness: This is a 68-year-old white male, known history of pancreatitis, attention, he had previous ERCP for bile duct stent with colitis and history of alcohol abuse. Patient presented to [facility] with 1 week history of worsening shortness of breath. Patient was noted to be anemic, and he was t ransfused with 2 units of packed RBCs upon presentation. He was seen by gastroenterology on consultation and he was being considered for EGD. In the meantime the patient was placed on Protonix. Patient is known to have history of alcohol abuse, drinks liquor on a daily basis, patient had previous history of bile duct stricture in 2014 and pancreatitis, requiring biliary stenting. Patient is also known to have history of thrombocytopenia and macrocytic anemia. Upon presentation, the patient was noted to have fecal occult blood test positive. The patient was admitted on 06/29, and this morning the rapid response team from the ICU and responded to the patient being hypotensive and short of breath. I was notified about the patient's ABG showing a pO2 of 87 pCO2 of 39 and pH of 7.07. His bicarb was noted to be 12. Hence I recommended immediate intubation fluids, and immediate transfer to the intensive care unit. Shortly after, the patient arrived to the ICU, and he was again noted to be hypotensive, more fluid boluses were given. Started the patient on norepinephrine and this will be titrated accordingly to a mean arterial pressure of 65 or higher. Patient was noted to be oliguric, and he likely developed acute tubular necrosis because of low blood pressure, and nephrology consultation was initiated. In the meantime the patient will need to be on broad-spectrum antibiotics for presumptive sepsis. His chest x-ray showed no evidence of infiltrate, however his urine may be infected based on the urinalysis upon admission. Patient is on Rocephin, and he is also on Zosyn. Review of Systems ROS unobtainable: due to endotracheal tube Past Medical History Past Medical History: Hypertension Additional Past Medical History / Comment(s): Hx calculus of bile duct, acute cholecystitis, pancreatitis. History of Any Multi-Drug Resistant Organisms: None Reported Past Surgical History: Orthopedic Surgery Additional Past Surgical History / Comment(s): cervical surgery, bilateral cataract removal with lens implants, umbilical hernia as a baby, bile duct stent, ERCP, C3-6 plate Past Anesthesia/Blood Transfusion Reactions: No Reported Reaction Past Psychological History: No Psychological Hx Reported Smoking Status: Current every day smoker Past Alcohol Use History: Occasional Past Drug Use History: None Reported - Past Family History Father Family Medical History: Cancer Additional Family Medical History / Comment(s): Melanoma Mother Family Medical History: Cancer Additional Family Medical History / Comment(s): Breast cancer. Medications and Allergies Home Medications Medication Instructions Recorded Confirmed Type Metoprolol Tartrate [Lopressor] 12.5 mg PO BID #60 tab 12/31/14 06/29/18 Rx Ergocalciferol [Vitamin D2] 50,000 unit PO Q7D 06/29/18 06/29/18 History Magnesium Oxide [Mag-Ox] 400 mg PO DAILY 06/29/18 06/29/18 History Sodium Bicarbonate Tab 650 mg PO DAILY 06/29/18 06/29/18 History amLODIPine BESYLATE [Norvasc] 10 mg PO DAILY 06/29/18 06/29/18 History Allergies Allergy/AdvReac Type Severity Reaction Status Date / Time No Known Allergies Allergy Verified 06/29/18 10:05 Physical Exam Vitals: Vital Signs Temp Pulse Pulse Resp BP Pulse Ox 06/30/18 09:05 66 18 06/30/18 08:57 66 20 06/30/18 08:30 72 16 120/49 06/30/18 07:28 96.4 F L 06/30/18 07:03 96.1 F L 68 16 112/66 98 06/29/18 23:54 97.6 F 67 16 111/55 94 L 06/29/18 21:48 20 06/29/18 19:42 97.5 F L 82 20 120/62 95 06/29/18 17:13 92 L 06/29/18 14:57 97.7 F 66 16 112/57 95 Intake and Output 06/29/18 06/30/18 06/30/18 22:59 06:59 14:59 Intake Total 150 Output Total 375 Balance 150 -375 Intake: Oral 150 Output: Urine 375 Other: Voiding Method Indwelling Catheter Indwelling Catheter # Voids 0 Weight 64.41 kg 69 kg Physical Exam: Revealed a 68-year-old white male, intubated, sedated, in no distress. Head: Atraumatic, normocephalic, HEENT:[Neck is supple.] [No neck masses.] [No thyromegaly.] [No JVD.] PERRLA, EOMI, no neck masses, Chest: [Diminished breath sounds at the bases no crackles or rhonchi or wheezes. Cardiac Exam: [Normal S1 and S2, no S3 gallop, no murmur.] Abdomen: [Soft, nontender, no megaly, no rebound, no guarding, normal bowel sounds.] Extremities: [No clubbing, no edema, no cyanosis.] Neurological Exam: Not be assessed, patient is sedated, on propofol drip, however according to the notes from previous physicians patient had normal mental status upon arrival. And he had no focal deficit. Psychiatric could not be assessed. Skin: Evidence of exfoliation of the skin and eczema-like lesions involving the neck area, clavicular areas, and even the arms bilaterally. Results - Laboratory Findings CBC and BMP: 06/30/18 07:48 06/30/18 07:48 ABG ABG pH 7.26 (7.35-7.45) L 06/30/18 11:34 ABG pCO2 44 mmHg (35-45) 06/30/18 11:34 ABG pO2 157 mmHg (83-108) H 06/30/18 11:34 ABG O2 Saturation 98.6 % (94-97) H 06/30/18 11:34 PT/INR, D-dimer PT 10.5 sec (9.0-12.0) 06/29/18 01:56 INR 1.0 (<1.2) 06/29/18 01:56 Abnormal lab findings: Abnormal Labs 06/29/18 06/29/18 06/29/18 01:56 01:56 01:56 WBC RBC 2.34 L Hgb 8.1 L Hct 27.2 L MCV 116.4 H MCH MCHC 29.8 L RDW 18.1 H Plt Count 81 L Neutrophils # (Manual) Lymphocytes # 0.9 L Metamyelocytes # (Man) Myelocytes # (Manual) APTT 31.8 H ABG pH ABG pO2 ABG HCO3 ABG Total CO2 ABG O2 Saturation Potassium Chloride 116 H Carbon Dioxide 11 L BUN 82 H Creatinine 4.84 H Glucose POC Glucose (mg/dL) Plasma Lactic Acid Fred Calcium 6.5 L Phosphorus Total Protein 5.1 L Albumin 2.6 L TSH 8.700 H Free T4 0.47 L Urine Protein Urine Blood Ur Leukocyte Esterase Urine RBC Urine WBC Urine Mucus Crossmatch 06/29/18 06/29/18 06/29/18 03:30 06:22 17:26 WBC RBC Hgb Hct MCV MCH MCHC RDW Plt Count Neutrophils # (Manual) Lymphocytes # Metamyelocytes # (Man) Myelocytes # (Manual) APTT ABG pH ABG pO2 ABG HCO3 ABG Total CO2 ABG O2 Saturation Potassium Chloride Carbon Dioxide BUN Creatinine Glucose POC Glucose (mg/dL) 111 H Plasma Lactic Acid Fred Calcium Phosphorus Total Protein Albumin TSH Free T4 Urine Protein 2+ H Urine Blood Moderate H Ur Leukocyte Esterase Moderate H Urine RBC 56 H Urine WBC 26 H Urine Mucus Rare H Crossmatch See Detail 06/29/18 06/30/18 06/30/18 20:00 06:55 07:48 WBC 15.5 H RBC 2.79 L Hgb 9.9 L D Hct 31.0 L MCV 111.1 H D MCH 35.3 H MCHC RDW 21.0 H Plt Count 67 L Neutrophils # (Manual) 13.30 H Lymphocytes # Metamyelocytes # (Man) 0.31 H Myelocytes # (Manual) 0.16 H APTT ABG pH ABG pO2 ABG HCO3 ABG Total CO2 ABG O2 Saturation Potassium Chloride Carbon Dioxide BUN Creatinine Glucose POC Glucose (mg/dL) 150 H 129 H Plasma Lactic Acid Fred Calcium Phosphorus Total Protein Albumin TSH Free T4 Urine Protein Urine Blood Ur Leukocyte Esterase Urine RBC Urine WBC Urine Mucus Crossmatch 06/30/18 06/30/18 06/30/18 07:48 07:48 08:57 WBC RBC Hgb Hct MCV MCH MCHC RDW Plt Count Neutrophils # (Manual) Lymphocytes # Metamyelocytes # (Man) Myelocytes # (Manual) APTT ABG pH ABG pO2 ABG HCO3 ABG Total CO2 ABG O2 Saturation Potassium 5.5 H Chloride 119 H Carbon Dioxide 12 L BUN 101 H* Creatinine 6.33 H Glucose 105 H POC Glucose (mg/dL) Plasma Lactic Acid Fred <0.5 L Calcium 6.1 L* Phosphorus 11.1 H* Total Protein Albumin TSH Free T4 Urine Protein Urine Blood Ur Leukocyte Esterase Urine RBC Urine WBC Urine Mucus Crossmatch 06/30/18 06/30/18 06/30/18 08:58 10:13 10:45 WBC RBC Hgb Hct MCV MCH MCHC RDW Plt Count Neutrophils # (Manual) Lymphocytes # Metamyelocytes # (Man) Myelocytes # (Manual) APTT ABG pH 7.07 L* 7.07 L* ABG pO2 >400 H ABG HCO3 11 L 11 L ABG Total CO2 12 L 12 L ABG O2 Saturation 100.0 H Potassium Chloride Carbon Dioxide BUN Creatinine Glucose POC Glucose (mg/dL) 129 H Plasma Lactic Acid Fred Calcium Phosphorus Total Protein Albumin TSH Free T4 Urine Protein Urine Blood Ur Leukocyte Esterase Urine RBC Urine WBC Urine Mucus Crossmatch 06/30/18 11:34 WBC RBC Hgb Hct MCV MCH MCHC RDW Plt Count Neutrophils # (Manual) Lymphocytes # Metamyelocytes # (Man) Myelocytes # (Manual) APTT ABG pH 7.26 L ABG pO2 157 H ABG HCO3 20 L ABG Total CO2 ABG O2 Saturation 98.6 H Potassium Chloride Carbon Dioxide BUN Creatinine Glucose POC Glucose (mg/dL) Plasma Lactic Acid Fred Calcium Phosphorus Total Protein Albumin TSH Free T4 Urine Protein Urine Blood Ur Leukocyte Esterase Urine RBC Urine WBC Urine Mucus Crossmatch - Diagnostic Findings Chest x-ray: image reviewed Assessment and Plan Assessment: Impression: 1 septic shock, exact source is not clear at this point, probably the primary source is urinary tract infection. However other sources are not entirely ruled out, but felt to be less likely from the lung since his chest x-ray showed no evidence of infiltrate. There is a small tiny left pleural effusion. 2 urinary tract infection is strongly suspected. 3 Acute metabolic acidosis and hypotension secondary to septic shock. 4 acute kidney injury and renal failure will be addressed by nephrology on the case. 5 possible GI bleeding on presentation. 6 hypothyroidism 7 history of pancreatitis 8 history of vocal abuse 9 chest pain, exact etiology not are not clear, could be cardiac in nature being addressed by cardiology. Recommendation: Continue ventilatory support, hemodynamic support, nutritional support, GI and DVT prophylaxis, broad-spectrum antibiotics, his ventilator settings will be adjusted accordingly and according to the next ABG which is pending. I have placed a central line and arterial line in this patient, and recommended norepinephrine. Prognosis is definitely poor and guarded, we'll continue to follow. Critical care time is 55 minutes not including the time spent on procedures Time with Patient: Greater than 30
--- NOTE | 2018-06-30 12:45 | PCN ---
PROCEDURE NOTE OPERATIVE REPORT: Placement of right femoral triple-lumen catheter. PREOPERATIVE DIAGNOSIS: Profound hypotension and acute septic shock requiring pressors. POSTOPERATIVE DIAGNOSIS: Profound hypotension and acute septic shock requiring pressors. ANESTHESIA USED: 2 mL of 1% lidocaine. PROCEDURE: The patient was placed in the supine position, the right groin was prepared in a sterile fashion and drapes were applied. The right femoral vein was cannulated easily, a guidewire was placed, and a triple-lumen catheter was inserted over the guidewire, and the guidewire was removed. Good blood flow was noted in the 3 different ports of the triple lumen catheter. The procedure was well tolerated and no evidence of any immediate complications. Line was secured using 3.0 silk sutures. MMODL / IJN: [id number] /
--- NOTE | 2018-06-30 12:48 | PCN ---
PROCEDURE NOTE PROCEDURE PERFORMED: Placement of a left radial arterial line. PREOPERATIVE DIAGNOSIS: Acute septic shock. POSTOPERATIVE DIAGNOSIS: Acute septic shock. ANESTHESIA: Used none deployed. PROCEDURE IN DETAIL: The left wrist was prepared in a sterile fashion and drapes were applied. The left radial artery was palpated, cannulated, and a guidewire was placed. A Cook's catheter was inserted over the guidewire, the guidewire was removed. Good blood flow and good waveform were noted, no evidence of any immediate complications. The line was secured using 3.0 silk sutures. MMODL / IJN: [id number] /
--- NOTE | 2018-06-30 14:15 | P.NPCON ---
History of Present Illness - Reason for Consult Consult date: 06/30/18 acute renal failure - Chief Complaint Shortness of breath - History of Present Illness Admitted to the hospital last night on the floor with the above complaints. This morning was transferred to ICU with metabolic acidosis and currently on a ventilator. Home medications reviewed no NSAID use. Currently hypotensive on levo fed. Baseline creatinine is 1.5-2.2 MG per DL. When presented to the hospital creatinine was 4.8 and 6.33 today. He was severely acidotic with a bicarb of 11 and a pH of 7.1. Currently on bicarb drip. No clear history available. Urine analysis showed blood and WBC and blood pressures in 70 systolic. Currently treated as urinary tract infection with ceftriaxone and Zosyn. Chest x-ray showed mild pulmonary congestion. No recent contrast studies. No history of nausea vomiting diarrhea. He is getting IV fluids normal saline and on bicarb drip. Urine output of 375 ML's since morning. Review of Systems ROS unobtainable: due to endotracheal tube Past Medical History Past Medical History: Hypertension Additional Past Medical History / Comment(s): Hx calculus of bile duct, acute cholecystitis, pancreatitis. History of Any Multi-Drug Resistant Organisms: None Reported Past Surgical History: Orthopedic Surgery Additional Past Surgical History / Comment(s): cervical surgery, bilateral cataract removal with lens implants, umbilical hernia as a baby, bile duct stent, ERCP, C3-6 plate Past Anesthesia/Blood Transfusion Reactions: No Reported Reaction Past Psychological History: No Psychological Hx Reported Smoking Status: Current every day smoker Past Alcohol Use History: Occasional Past Drug Use History: None Reported - Past Family History Father Family Medical History: Cancer Additional Family Medical History / Comment(s): Melanoma Mother Family Medical History: Cancer Additional Family Medical History / Comment(s): Breast cancer. Medications and Allergies Home Medications Medication Instructions Recorded Confirmed Type Metoprolol Tartrate [Lopressor] 12.5 mg PO BID #60 tab 12/31/14 06/29/18 Rx Ergocalciferol [Vitamin D2] 50,000 unit PO Q7D 06/29/18 06/29/18 History Magnesium Oxide [Mag-Ox] 400 mg PO DAILY 06/29/18 06/29/18 History Sodium Bicarbonate Tab 650 mg PO DAILY 06/29/18 06/29/18 History amLODIPine BESYLATE [Norvasc] 10 mg PO DAILY 06/29/18 06/29/18 History Allergies Allergy/AdvReac Type Severity Reaction Status Date / Time No Known Allergies Allergy Verified 06/29/18 10:05 Physical Exam Vitals: Vital Signs Temp Pulse Pulse Resp BP Pulse Ox 06/30/18 09:05 66 18 06/30/18 08:57 66 20 06/30/18 08:30 72 16 120/49 06/30/18 07:28 96.4 F L 06/30/18 07:03 96.1 F L 68 16 112/66 98 06/29/18 23:54 97.6 F 67 16 111/55 94 L 06/29/18 21:48 20 06/29/18 19:42 97.5 F L 82 20 120/62 95 06/29/18 17:13 92 L 06/29/18 14:57 97.7 F 66 16 112/57 95 Intake and Output 06/29/18 06/30/18 06/30/18 22:59 06:59 14:59 Intake Total 150 Output Total 375 Balance 150 -375 Intake: Oral 150 Output: Urine 375 Other: Voiding Method Indwelling Catheter Indwelling Catheter # Voids 0 Weight 64.41 kg 69 kg Intubated on a ventilator. S1-S2 heard Decreased breath sounds Abdomen soft Zhu Trace edema Results - Lab Results Most recent lab results ABG pH 7.26 (7.35-7.45) L 06/30/18 11:34 ABG pCO2 44 mmHg (35-45) 06/30/18 11:34 ABG pO2 157 mmHg (83-108) H 06/30/18 11:34 ABG HCO3 20 mmol/L (21-25) L 06/30/18 11:34 ABG O2 Saturation 98.6 % (94-97) H 06/30/18 11:34 Calcium 6.1 mg/dL (8.4-10.2) L* 06/30/18 07:48 Phosphorus 11.1 mg/dL (2.5-4.5) H* 06/30/18 07:48 Magnesium 2.2 mg/dL (1.6-2.3) 06/30/18 07:48 06/30/18 07:48 06/30/18 07:48 Assessment and Plan Assessment: #1 oliguric acute kidney injury suspect hemodynamic ATN with low blood pressures. Possible urinary sepsis. Rule out acute GN. #2 anion gap metabolic acidosis improving #3 hyperkalemia secondary to acute kidney injury #4 vent-dependent respiratory failure #5 shock #6 anemia with thrombocytopenia. Rule out TTP. Plan: #1 agree with fluid resuscitation. Stop Lasix. Continue with bicarb drip for now #2 check vasculitis screen. Also check osmolality #3 hematology evaluation for thrombocytopenia with normal coags to rule out TTP. #4 continue with vasopressors for hemodynamic support. #5 avoid nephrotoxic agents and hypotensive episodes #6 no acute indication for hemodialysis today. If renal function continues to worsen and electrolyte changes plan hemodialysis based on the labs
--- NOTE | 2018-06-30 14:51 | US ---
EXAMINATION TYPE: US kidneys/renal and bladder DATE OF EXAM: 06/30/2018 COMPARISON: CT 12/17/2014 CLINICAL HISTORY: Acute kidney injury. Difficult and limited exam. ICU patient who is intubated and c annot reposition. EXAM MEASUREMENTS: Right Kidney: 9.7 x 5.0 x 5.4 cm Left Kidney: Not visualized Right Kidney: No hydronephrosis. No cystic or solid mass visualized Left Kidney: Not visualized due to large amount of overlying bowel and inability to reposition patien t Bladder: Not assessed. There is a trace amount of free fluid visualized within the right upper quadrant and the left upper q uadrant. IMPRESSION: 1. Normal sonographic evaluation of the right kidney. 2. Nonvisualization of the left kidney. 3. Trace amount of ascites.
[2018-06-30] MEDS: PROPOFOL 1,000 MG in EMPTY BAG 1 BAG IV SCH ×3 (15:04→23:47)
--- NOTE | 2018-06-30 17:05 | P.PN ---
Subjective This is a pleasant 68 years old male with past medical history of hypertension and pancreatitis, status post ERCP and bile duct stent with cholecystitis, alcohol abuse. Presents because of dyspnea of one week duration getting worsened over the last 3-4 days duration. With no chest pain, no nausea vomiting. The patient says he has a lot of is patent. He has harsh breath sounds that looks like weight. He has bilateral leg swelling. Patient looks tired and weak On admission his hemoglobin is 8.1, platelets 81, WBC 7.7. INR 1.0, sodium 142, creatinine 4.8, baseline creatinine 1.5-2.0. TSH 8.7, free T4 is low at 0.47. Urinalysis suspicious for infection. He is status post 2 units of blood transfusion . Chest x-ray showing mild pulmonary congestion as per radiologist's report. FOBT is positive. EKG shows sinus bradycardia at 59 with QTC is 522. 06/30/2018 patient today become more hypotensive and hypothermic.when I saw the patient early this morning he was more awake however his blood pressure was 98/60s . he developed leukocytosis, his hemoglobin was 9.9,his creatinine went up to 6.3, potassium 5.5, glucose was 129, lactic acid less than 0.5,ABG showing pH of 7.0 patient has been transferred to the intensive care unit, where he got intubated and central line was placed, patient was started on pressors.patient developed probably acute tubular necrosis and acute renal failure secondary to hypotension and septic shock, and nephrology consult has been called. There is air this morning patient was complaining of from chest pressure, cartilage team has been consulted. Troponins were negative. review of system: Not applicable medication: Albuterol, ceftriaxone, Zosyn, levothyroxine,norepinephrine, Protonix Objective - Vital Signs Vital signs: Vital Signs Temp 96.4 F L 06/30/18 07:28 Pulse 61 06/30/18 15:00 Resp 20 06/30/18 15:00 BP 120/49 06/30/18 08:30 Pulse Ox 98 06/30/18 15:00 Intake & Output 06/29/18 06/30/18 06/30/18 18:59 06:59 18:59 Intake Total 0 150 3669.953 Output Total 375 Balance 0 150 3294.953 Weight 64.41 kg 69 kg Intake: IV 3650.0 Dextrose 5% in Water 1, 600 000 ml @ 100 mls/hr IV . [id number] ANTHONY with Sodium Bicarb (1 Meq/ml) 150 ml Rx#:[id number] Piperacillin-Tazobactam 3 50.0 .375 gm In Sodium Chloride 0.9% 100 ml @ 25 mls/hr IVPB Q12HR ANTHONY Rx #:[id number] Sodium Chloride 0.9% 1, 3000 000 ml @ 999 mls/hr IV . Q1H1M ONE Rx#:[id number] Intake, IV Titration 19.953 Amount Norepinephrine 32 mg In 4.635 Sodium Chloride 0.9% 218 ml @ 0.05 MCG/KG/MIN 1. 617 mls/hr IV .Q24H ANTHONY Rx#:[id number] Propofol 1,000 mg In 15.318 Empty Bag 1 bag @ Titrate IV .Q0M ANTHONY Rx#: [id number] Oral 150 Blood Product 0 Rc As-1 Unit 0 [id number] Rc As-1 Unit 0 [id number] Output: Urine 375 Other: Voiding Method Indwelling Catheter Indwelling Catheter Indwelling Catheter # Voids 0 ABP, PAP, CO, CI - Last Documented Arterial Blood Pressure 108/53 - Exam -GENERAL: patient is intubated and sedated HEENT: Pupils are round and equally reacting to light. EOMI. No scleral icterus. No conjunctival pallor. Normocephalic, atraumatic. No pharyngeal erythema. No thyromegaly. CARDIOVASCULAR: S1 and S2 present. No murmurs, rubs, or gallops. -PULMONARY: Chest is clear to auscultation, no wheezing . Bilateral course crackles. ABDOMEN: Soft, nontender, nondistended, normoactive bowel sounds. No palpable organomegaly. MUSCULOSKELETAL: No joint swelling or deformity. -EXTREMITIES: No cyanosis, clubbing, . Bilateral leg edema NEUROLOGICAL: Gross neurological examination did not reveal any focal deficits. SKIN: No rashes. - Labs CBC & Chem 7: 06/30/18 07:48 06/30/18 07:48 Labs: Abnormal Lab Results - Last 24 Hours (Table) 06/29/18 06/29/18 06/30/18 Range/Units 17:26 20:00 06:55 WBC (3.8-10.6) k/uL RBC (4.30-5.90) m/uL Hgb (13.0-17.5) gm/dL Hct (39.0-53.0) % MCV (80.0-100.0) fL MCH (25.0-35.0) pg RDW (11.5-15.5) % Plt Count (150-450) k/uL Neutrophils # (Manual) (1.3-7.7) k/uL Metamyelocytes # (Man) (0) k/uL Myelocytes # (Manual) (0) k/uL ABG pH (7.35-7.45) ABG pO2 (83-108) mmHg ABG HCO3 (21-25) mmol/L ABG Total CO2 (19-24) mmol/L ABG O2 Saturation (94-97) % Potassium (3.5-5.1) mmol/L Chloride (98-107) mmol/L Carbon Dioxide (22-30) mmol/L BUN (9-20) mg/dL Creatinine (0.66-1.25) mg/dL Glucose (74-99) mg/dL POC Glucose (mg/dL) 111 H 150 H 129 H (75-99) mg/dL Osmolality (280-301) mosm/kg Plasma Lactic Acid Fred (0.7-2.0) mmol/L Calcium (8.4-10.2) mg/dL Phosphorus (2.5-4.5) mg/dL 06/30/18 06/30/18 06/30/18 Range/Units 07:48 07:48 07:48 WBC 15.5 H (3.8-10.6) k/uL RBC 2.79 L (4.30-5.90) m/uL Hgb 9.9 L D (13.0-17.5) gm/dL Hct 31.0 L (39.0-53.0) % MCV 111.1 H D (80.0-100.0) fL MCH 35.3 H (25.0-35.0) pg RDW 21.0 H (11.5-15.5) % Plt Count 67 L (150-450) k/uL Neutrophils # (Manual) 13.30 H (1.3-7.7) k/uL Metamyelocytes # (Man) 0.31 H (0) k/uL Myelocytes # (Manual) 0.16 H (0) k/uL ABG pH (7.35-7.45) ABG pO2 (83-108) mmHg ABG HCO3 (21-25) mmol/L ABG Total CO2 (19-24) mmol/L ABG O2 Saturation (94-97) % Potassium 5.5 H (3.5-5.1) mmol/L Chloride 119 H (98-107) mmol/L Carbon Dioxide 12 L (22-30) mmol/L BUN 101 H* (9-20) mg/dL Creatinine 6.33 H (0.66-1.25) mg/dL Glucose 105 H (74-99) mg/dL POC Glucose (mg/dL) (75-99) mg/dL Osmolality (280-301) mosm/kg Plasma Lactic Acid Fred (0.7-2.0) mmol/L Calcium 6.1 L* (8.4-10.2) mg/dL Phosphorus 11.1 H* (2.5-4.5) mg/dL 06/30/18 06/30/18 06/30/18 Range/Units 07:48 08:57 08:58 WBC (3.8-10.6) k/uL RBC (4.30-5.90) m/uL Hgb (13.0-17.5) gm/dL Hct (39.0-53.0) % MCV (80.0-100.0) fL MCH (25.0-35.0) pg RDW (11.5-15.5) % Plt Count (150-450) k/uL Neutrophils # (Manual) (1.3-7.7) k/uL Metamyelocytes # (Man) (0) k/uL Myelocytes # (Manual) (0) k/uL ABG pH 7.07 L* (7.35-7.45) ABG pO2 (83-108) mmHg ABG HCO3 11 L (21-25) mmol/L ABG Total CO2 12 L (19-24) mmol/L ABG O2 Saturation (94-97) % Potassium (3.5-5.1) mmol/L Chloride (98-107) mmol/L Carbon Dioxide (22-30) mmol/L BUN (9-20) mg/dL Creatinine (0.66-1.25) mg/dL Glucose (74-99) mg/dL POC Glucose (mg/dL) (75-99) mg/dL Osmolality 340 H* (280-301) mosm/kg Plasma Lactic Acid Fred <0.5 L (0.7-2.0) mmol/L Calcium (8.4-10.2) mg/dL Phosphorus (2.5-4.5) mg/dL 06/30/18 06/30/18 06/30/18 Range/Units 10:13 10:45 11:34 WBC (3.8-10.6) k/uL RBC (4.30-5.90) m/uL Hgb (13.0-17.5) gm/dL Hct (39.0-53.0) % MCV (80.0-100.0) fL MCH (25.0-35.0) pg RDW (11.5-15.5) % Plt Count (150-450) k/uL Neutrophils # (Manual) (1.3-7.7) k/uL Metamyelocytes # (Man) (0) k/uL Myelocytes # (Manual) (0) k/uL ABG pH 7.07 L* 7.26 L (7.35-7.45) ABG pO2 >400 H 157 H (83-108) mmHg ABG HCO3 11 L 20 L (21-25) mmol/L ABG Total CO2 12 L (19-24) mmol/L ABG O2 Saturation 100.0 H 98.6 H (94-97) % Potassium (3.5-5.1) mmol/L Chloride (98-107) mmol/L Carbon Dioxide (22-30) mmol/L BUN (9-20) mg/dL Creatinine (0.66-1.25) mg/dL Glucose (74-99) mg/dL POC Glucose (mg/dL) 129 H (75-99) mg/dL Osmolality (280-301) mosm/kg Plasma Lactic Acid Fred (0.7-2.0) mmol/L Calcium (8.4-10.2) mg/dL Phosphorus (2.5-4.5) mg/dL Microbiology - Last 24 Hours (Table) 06/29/18 06:22 Urine Culture - Final Urine,Catheterized 06/29/18 01:56 Blood Culture - Preliminary Blood No Growth after 24 hours Assessment and Plan Assessment: septic shock Metabolic encephalopathy secondary to above metabolic acidosis Fluid overload, with pulmonary congestion, leg swelling. Possible GI bleed Acute blood loss anemia secondary to above Urinary tract infection Acute kidney injury Chronic kidney disease stage III Hypothyroidism Essential hypertension History of pancreatitis History of acute cholecystitis History of bilateral stones status post biliary stent Plan: patient's was sent to the ICU. He got intubated and started on a process. Several consults R following the case including critical/pulmonary care team. Hospice Fellow. Patient was started on Zosyn. Over ceftriaxone for possible urinary tract infection. However infectious disease consult for optimize his antibiotic therapy follow-up culture results. GI and cardiology team R following the case as well.DVT and GI prophylaxis. Monitor labs and vitals. Continue with the current medication. Further recommendations based on the clinical course of the patient Patient is in critical condition and prognosis is guarded
[2018-06-30 18:51] LABS: Glucose,Whole Blood 227 mg/dL (75-99)
[2018-06-30] MEDS ORDERED: INSULIN REGULAR BOLUS (FROM DRIP BAG) IV PRN (19:18)
[2018-06-30] MEDS ORDERED: INSULIN REGULAR 100 UNIT in SODIUM CHLORIDE 0.9% 100 ML IV SCH (19:30)
[2018-06-30] MEDS: CHLORHEXIDINE GLUCONATE 15 ML CUP MUCOUS MEM SCH (22:24)
[2018-06-30 22:54] LABS: Glucose,Whole Blood 194 mg/dL (75-99)
[2018-07-01 00:09] LABS: Glucose,Whole Blood 109 mg/dL (75-99)
[2018-07-01 00:52] LABS: Glucose,Whole Blood 92 mg/dL (75-99)
[2018-07-01 01:08] LABS: Glucose,Whole Blood 85 mg/dL (75-99)
[2018-07-01 01:56] LABS: Glucose,Whole Blood 90 mg/dL (75-99)
[2018-07-01 02:16] LABS: Glucose,Whole Blood 106 mg/dL (75-99)
[2018-07-01 03:13] LABS: Glucose,Whole Blood 131 mg/dL (75-99)
[2018-07-01 04:13] LABS: Glucose,Whole Blood 154 mg/dL (75-99)
[2018-07-01 05:12] LABS: Glucose,Whole Blood 166 mg/dL (75-99)
[2018-07-01 05:36] LABS: Anisocytosis Moderate; Basophils % (A) 0 %; Eosinophils # (A) 0.1 k/uL (0-0.7); Eosinophils % (A) 1 %; HCT 28.5 % (39.0-53.0); HGB 9.1 gm/dL (13.0-17.5); Hypochromasia Slight; Lymphocytes # (A) 0.7 k/uL (1.0-4.8); Lymphocytes % (A) 5 %; Mean Platelet Volume 9.9; Monocytes # (A) 0.6 k/uL (0-1.0); Monocytes % (A) 5 %; Neutrophils # (A) 11.1 k/uL (1.3-7.7); Neutrophils % (A) 88 %; Poikilocytosis Slight; RBC 2.76 m/uL (4.30-5.90); RDW 20.9 % (11.5-15.5); WBC 12.7 k/uL (3.8-10.6)
[2018-07-01 05:40] LABS: Platelet Count 59 k/uL (150-450)
[2018-07-01 05:43] LABS: MCV 103.1 fL (80.0-100.0); Macrocytosis Marked
[2018-07-01 05:45] LABS: Magnesium 1.7 mg/dL (1.6-2.3); Phosphorus 6.6 mg/dL (2.5-4.5); Potassium 3.9 mmol/L (3.5-5.1)
[2018-07-01] MEDS: PROPOFOL 1,000 MG in EMPTY BAG 1 BAG IV SCH (06:15)
[2018-07-01 06:16] LABS: Glucose,Whole Blood 162 mg/dL (75-99)
[2018-07-01] MEDS: LEVOTHYROXINE 100 MCG TAB PO SCH (06:16)
[2018-07-01] MEDS ORDERED: CALCIUM GLUCONATE 1 GM in SODIUM CHLORIDE 0.9% 100 ML IVPB ONE (06:51)
[2018-07-01 07:10] LABS: Glucose,Whole Blood 153 mg/dL (75-99)
[2018-07-01 07:13] LABS: ABG Base Excess -5.8 mmol/L; ABG HCO3 20 mmol/L (21-25); ABG Oxygen Saturation 97.4 % (94-97); ABG PCO2 38 mmHg (35-45); ABG PH 7.33 (7.35-7.45); ABG PO2 92 mmHg (83-108); ABG TCO2 21 mmol/L (19-24)
[2018-07-01] MEDS: IPRATROPIUM-ALBUTEROL 3 ML NEB INHALATION PRN ×4 (07:21→19:59)
[2018-07-01 09:07] LABS: Glucose,Whole Blood 128 mg/dL (75-99)
[2018-07-01] MEDS: PANTOPRAZOLE 40 MG/10 ML VIAL IVP SCH ×2 (09:42→22:08)
[2018-07-01] MEDS: CHLORHEXIDINE GLUCONATE 15 ML CUP MUCOUS MEM SCH ×2 (09:42→22:08)
[2018-07-01 09:46] LABS: Amylase 31 U/L (30-110); Lipase 127 U/L (23-300)
[2018-07-01] MEDS: SODIUM BICARBONATE TAB 650 MG TAB PO SCH (09:59)
--- NOTE | 2018-07-01 10:02 | P.PN ---
Subjective Progress Note Date: 07/01/18 Seen and examined for the follow-up of acute kidney injury. Still on ventilator. FiO2 of 40% with a PEEP of 5. Vasopressor requirement went down currently on 12.5 mics of levo fed. Urine output around 30 ML's an hour. Objective - Vital Signs Vital signs: Vital Signs Temp 94.5 F L 07/01/18 07:00 Pulse 58 L 07/01/18 07:41 Resp 20 07/01/18 07:00 BP 127/69 06/30/18 18:00 Pulse Ox 97 07/01/18 07:00 Intake & Output 06/30/18 07/01/18 07/01/18 18:59 06:59 18:59 Intake Total 4076.486 1380.159 100 Output Total 375 355 30 Balance 3701.486 1025.159 70 Weight 72.5 kg Intake: IV 4050.0 1100 100 Dextrose 5% in Water 1, 1000 1100 100 000 ml @ 100 mls/hr IV . [id number] ANTHONY with Sodium Bicarb (1 Meq/ml) 150 ml Rx#:[id number] Piperacillin-Tazobactam 3 50.0 .375 gm In Sodium Chloride 0.9% 100 ml @ 25 mls/hr IVPB Q12HR ANTHONY Rx #:[id number] Sodium Chloride 0.9% 1, 3000 000 ml @ 999 mls/hr IV . Q1H1M ONE Rx#:[id number] Intake, IV Titration 26.486 280.159 Amount Insulin Regular 100 unit 6.392 In Sodium Chloride 0.9% 100 ml @ Per Protocol IV .Q0M ANTHONY Rx#:[id number] Norepinephrine 32 mg In 11.168 73.767 Sodium Chloride 0.9% 218 ml @ 0.05 MCG/KG/MIN 1. 617 mls/hr IV .Q24H ANTHONY Rx#:[id number] Propofol 1,000 mg In 15.318 200.000 Empty Bag 1 bag @ Titrate IV .Q0M ANTHONY Rx#: [id number] Output: Urine 375 355 30 Other: Voiding Method Indwelling Catheter Indwelling Catheter # Voids 35 ABP, PAP, CO, CI - Last Documented Arterial Blood Pressure 134/56 - Exam Lying in the bed. Sedated on a ventilator S1-S2 heard Decreased breath sounds Trace edema Zhu catheter - Labs CBC & Chem 7: 07/01/18 05:15 07/01/18 05:15 Labs: Abnormal Lab Results - Last 24 Hours (Table) 06/30/18 06/30/18 06/30/18 Range/Units 07:48 07:48 10:13 WBC (3.8-10.6) k/uL RBC (4.30-5.90) m/uL Hgb (13.0-17.5) gm/dL Hct (39.0-53.0) % MCV (80.0-100.0) fL RDW (11.5-15.5) % Plt Count (150-450) k/uL Neutrophils # (1.3-7.7) k/uL Lymphocytes # (1.0-4.8) k/uL ABG pH (7.35-7.45) ABG pO2 (83-108) mmHg ABG HCO3 (21-25) mmol/L ABG Total CO2 (19-24) mmol/L ABG O2 Saturation (94-97) % Chloride (98-107) mmol/L Carbon Dioxide (22-30) mmol/L BUN (9-20) mg/dL Creatinine (0.66-1.25) mg/dL Glucose (74-99) mg/dL POC Glucose (mg/dL) 129 H (75-99) mg/dL Osmolality 340 H* (280-301) mosm/kg Calcium (8.4-10.2) mg/dL Ionized Calcium Cornelius (4.5-5.3) mg/dL Phosphorus 11.1 H* (2.5-4.5) mg/dL 06/30/18 06/30/18 06/30/18 Range/Units 10:45 11:34 18:39 WBC (3.8-10.6) k/uL RBC (4.30-5.90) m/uL Hgb (13.0-17.5) gm/dL Hct (39.0-53.0) % MCV (80.0-100.0) fL RDW (11.5-15.5) % Plt Count (150-450) k/uL Neutrophils # (1.3-7.7) k/uL Lymphocytes # (1.0-4.8) k/uL ABG pH 7.07 L* 7.26 L (7.35-7.45) ABG pO2 >400 H 157 H (83-108) mmHg ABG HCO3 11 L 20 L (21-25) mmol/L ABG Total CO2 12 L (19-24) mmol/L ABG O2 Saturation 100.0 H 98.6 H (94-97) % Chloride (98-107) mmol/L Carbon Dioxide (22-30) mmol/L BUN (9-20) mg/dL Creatinine (0.66-1.25) mg/dL Glucose (74-99) mg/dL POC Glucose (mg/dL) 227 H (75-99) mg/dL Osmolality (280-301) mosm/kg Calcium (8.4-10.2) mg/dL Ionized Calcium Cornelius (4.5-5.3) mg/dL Phosphorus (2.5-4.5) mg/dL 06/30/18 06/30/18 07/01/18 Range/Units 22:43 23:57 02:05 WBC (3.8-10.6) k/uL RBC (4.30-5.90) m/uL Hgb (13.0-17.5) gm/dL Hct (39.0-53.0) % MCV (80.0-100.0) fL RDW (11.5-15.5) % Plt Count (150-450) k/uL Neutrophils # (1.3-7.7) k/uL Lymphocytes # (1.0-4.8) k/uL ABG pH (7.35-7.45) ABG pO2 (83-108) mmHg ABG HCO3 (21-25) mmol/L ABG Total CO2 (19-24) mmol/L ABG O2 Saturation (94-97) % Chloride (98-107) mmol/L Carbon Dioxide (22-30) mmol/L BUN (9-20) mg/dL Creatinine (0.66-1.25) mg/dL Glucose (74-99) mg/dL POC Glucose (mg/dL) 194 H 109 H 106 H (75-99) mg/dL Osmolality (280-301) mosm/kg Calcium (8.4-10.2) mg/dL Ionized Calcium Cornelius (4.5-5.3) mg/dL Phosphorus (2.5-4.5) mg/dL 07/01/18 07/01/18 07/01/18 Range/Units 03:01 04:01 05:01 WBC (3.8-10.6) k/uL RBC (4.30-5.90) m/uL Hgb (13.0-17.5) gm/dL Hct (39.0-53.0) % MCV (80.0-100.0) fL RDW (11.5-15.5) % Plt Count (150-450) k/uL Neutrophils # (1.3-7.7) k/uL Lymphocytes # (1.0-4.8) k/uL ABG pH (7.35-7.45) ABG pO2 (83-108) mmHg ABG HCO3 (21-25) mmol/L ABG Total CO2 (19-24) mmol/L ABG O2 Saturation (94-97) % Chloride (98-107) mmol/L Carbon Dioxide (22-30) mmol/L BUN (9-20) mg/dL Creatinine (0.66-1.25) mg/dL Glucose (74-99) mg/dL POC Glucose (mg/dL) 131 H 154 H 166 H (75-99) mg/dL Osmolality (280-301) mosm/kg Calcium (8.4-10.2) mg/dL Ionized Calcium Cornelius (4.5-5.3) mg/dL Phosphorus (2.5-4.5) mg/dL 07/01/18 07/01/18 07/01/18 Range/Units 05:15 05:15 06:05 WBC 12.7 H (3.8-10.6) k/uL RBC 2.76 L (4.30-5.90) m/uL Hgb 9.1 L (13.0-17.5) gm/dL Hct 28.5 L (39.0-53.0) % MCV 103.1 H D (80.0-100.0) fL RDW 20.9 H (11.5-15.5) % Plt Count 59 L (150-450) k/uL Neutrophils # 11.1 H (1.3-7.7) k/uL Lymphocytes # 0.7 L (1.0-4.8) k/uL ABG pH (7.35-7.45) ABG pO2 (83-108) mmHg ABG HCO3 (21-25) mmol/L ABG Total CO2 (19-24) mmol/L ABG O2 Saturation (94-97) % Chloride 115 H (98-107) mmol/L Carbon Dioxide 19 L (22-30) mmol/L BUN 94 H (9-20) mg/dL Creatinine 5.81 H (0.66-1.25) mg/dL Glucose 154 H (74-99) mg/dL POC Glucose (mg/dL) 162 H (75-99) mg/dL Osmolality (280-301) mosm/kg Calcium 5.0 L* (8.4-10.2) mg/dL Ionized Calcium Cornelius (4.5-5.3) mg/dL Phosphorus 6.6 H (2.5-4.5) mg/dL 07/01/18 07/01/18 07/01/18 Range/Units 06:12 06:58 07:09 WBC (3.8-10.6) k/uL RBC (4.30-5.90) m/uL Hgb (13.0-17.5) gm/dL Hct (39.0-53.0) % MCV (80.0-100.0) fL RDW (11.5-15.5) % Plt Count (150-450) k/uL Neutrophils # (1.3-7.7) k/uL Lymphocytes # (1.0-4.8) k/uL ABG pH 7.33 L (7.35-7.45) ABG pO2 (83-108) mmHg ABG HCO3 20 L (21-25) mmol/L ABG Total CO2 (19-24) mmol/L ABG O2 Saturation 97.4 H (94-97) % Chloride (98-107) mmol/L Carbon Dioxide (22-30) mmol/L BUN (9-20) mg/dL Creatinine (0.66-1.25) mg/dL Glucose (74-99) mg/dL POC Glucose (mg/dL) 153 H (75-99) mg/dL Osmolality (280-301) mosm/kg Calcium (8.4-10.2) mg/dL Ionized Calcium Cornelius 3.2 L* (4.5-5.3) mg/dL Phosphorus (2.5-4.5) mg/dL 07/01/18 Range/Units 08:56 WBC (3.8-10.6) k/uL RBC (4.30-5.90) m/uL Hgb (13.0-17.5) gm/dL Hct (39.0-53.0) % MCV (80.0-100.0) fL RDW (11.5-15.5) % Plt Count (150-450) k/uL Neutrophils # (1.3-7.7) k/uL Lymphocytes # (1.0-4.8) k/uL ABG pH (7.35-7.45) ABG pO2 (83-108) mmHg ABG HCO3 (21-25) mmol/L ABG Total CO2 (19-24) mmol/L ABG O2 Saturation (94-97) % Chloride (98-107) mmol/L Carbon Dioxide (22-30) mmol/L BUN (9-20) mg/dL Creatinine (0.66-1.25) mg/dL Glucose (74-99) mg/dL POC Glucose (mg/dL) 128 H (75-99) mg/dL Osmolality (280-301) mosm/kg Calcium (8.4-10.2) mg/dL Ionized Calcium Cornelius (4.5-5.3) mg/dL Phosphorus (2.5-4.5) mg/dL Microbiology - Last 24 Hours (Table) 06/29/18 01:56 Blood Culture - Preliminary Blood No Growth after 48 hours 06/30/18 13:10 Gram Stain - Preliminary Sputum Sputum Culture - Preliminary 06/30/18 08:51 Urine Culture - Preliminary Urine,Catheterized 06/29/18 06:22 Urine Culture - Final Urine,Catheterized Assessment and Plan Assessment: #1 oliguric acute kidney injury currently nonoliguric suspect hemodynamic ATN with low blood pressures. Possible urinary sepsis. Rule out acute GN with active urine. #2 anion gap metabolic acidosis improving #3 hyperkalemia secondary to acute kidney injury, resolved. #4 vent-dependent respiratory failure #5 shock suspect septic on vasopressors #6 hypocalcemia secondary to hyperphosphatemia. #7 anemia with thrombocytopenia. Rule out TTP, low suspicion. Plan: #1 renal functions improving. Continue with bicarb drip. #2 vasculitis screen requested. #3 wean off pressors and ventilator area did #4 avoid nephrotoxic agents and hypotensive episodes. #5 hematology evaluation for thrombocytopenia with normal coags to rule out TTP. #6 no acute indication for hemodialysis today.
[2018-07-01] MEDS: DEXTROSE 5% IN WATER 1,000 ML with SODIUM BICARB (1 MEQ/ML) 150 ML IV SCH (10:11)
--- NOTE | 2018-07-01 10:22 | ECHOF ---
Referral Reason:chest pain MEASUREMENTS -------- HEIGHT: 172.7 cm WEIGHT: 68.9 kg BP: IVSd: 1.3 cm (0.6 - 1.1) LVIDd: 4.1 cm (3.9 - 5.3) LVPWd: 1.3 cm (0.6 - 1.1) IVSs: 1.7 cm LVIDs: 2.5 cm LVPWs: 1.9 cm RVIDd: 3.0 cm (< 3.3) LAESV Index (A-L): 23.20 ml/m Ao Diam: 2.9 cm (2.0 - 3.7) LA Diam: 3.9 cm (2.7 - 3.8) AV Cusp: 2.0 cm (1.5 - 2.6) EPSS: 0.8 cm MV E Juan Antonio: 1.08 m/s MV DecT: 229 ms MV A Juan Antonio: 0.97 m/s MV E/A Ratio: 1.12 AR PHT: 280 ms RAP: 20.00 mmHg RVSP: 44.59 mmHg MV EF SLOPE: 55.88 mm/s (70 - 150) MV EXCURSION: 11.45 mm (> 18.000) FINDINGS -------- Resting bradycardia (HR<60bpm). This was a technically good study. The left ventricular size is normal. There is mild concentric left ventricular hypertrophy. Overa ll left ventricular systolic function is low-normal with, an EF between 50 - 55 %. The right ventricle is normal in size. The left atrial size is normal. The right atrial size is normal. Aortic valve is trileaflet and is mildly thickened. There is mild aortic regurgitation. The mitral valve leaflets are mildly thickened. Mild mitral annular calcification present. Modera te mitral regurgitation is present. Mild tricuspid regurgitation present. The right ventricular systolic pressure, as measured by Doppl er, is 44.59mmHg. There is no pulmonic regurgitation present. The aortic root size is normal. The inferior vena cava is dilated with no significant inspiratory collapse which is consistent estima torri right atrial pressure of >20 mmHg. The pericardium is normal. CONCLUSIONS -------- 1. Resting bradycardia (HR<60bpm). 2. This was a technically good study. 3. The left ventricular size is normal. 4. There is mild concentric left ventricular hypertrophy. 5. Overall left ventricular systolic function is low-normal with, an EF between 50 - 55 %. 6. The right ventricle is normal in size. 7. The left atrial size is normal. 8. The right atrial size is normal. 9. Aortic valve is trileaflet and is mildly thickened. 10. There is mild aortic regurgitation. 11. The mitral valve leaflets are mildly thickened. 12. Mild mitral annular calcification present. 13. Moderate mitral regurgitation is present. 14. Mild tricuspid regurgitation present. 15. The right ventricular systolic pressure, as measured by Doppler, is 44.59mmHg. 16. There is no pulmonic regurgitation present. 17. The aortic root size is normal. 18. The inferior vena cava is dilated with no significant inspiratory collapse which is consistent es timated right atrial pressure of >20 mmHg. 19. The pericardium is normal. WAYS OPERATOR: Aubrie Back RDCS
--- NOTE | 2018-07-01 10:37 | P.PN ---
Subjective Patient remains intubated. Blood pressure 108-40 mmHg pulse rate in the 60s Breath sounds are reduced bilaterally heart sounds are distant S1 and S2 soft Elevated white count of 12.7 thousand, improving hemoglobin 9.1, remains acidotic Creatinine 5.81 Impression Patient initially complained of chest pain but became extremely short of breath was transferred urgently to the ICU from the medical floor and was rapidly extubated because he was acidotic. History of hypertension history of renal failure acute and chronic History of pancreatitis Suggest continue ICU care. From a chronic standpoint no further workup at this point. 2-D echo and Doppler studies reviewed left ventricular ejection fraction 50-55% Please call us for any new cardiac issue Will sign off Objective - Vital Signs Vital signs: Vital Signs Temp 97.9 F 07/01/18 08:00 Pulse 60 07/01/18 10:00 Resp 20 07/01/18 10:00 BP 127/69 06/30/18 18:00 Pulse Ox 97 07/01/18 10:00 Intake & Output 06/30/18 07/01/18 07/01/18 18:59 06:59 18:59 Intake Total 4076.486 1380.159 193.797 Output Total 375 355 30 Balance 3701.486 1025.159 163.797 Weight 72.5 kg Intake: IV 4050.0 1100 100 Dextrose 5% in Water 1, 1000 1100 100 000 ml @ 100 mls/hr IV . [id number] ANTHONY with Sodium Bicarb (1 Meq/ml) 150 ml Rx#:[id number] Piperacillin-Tazobactam 3 50.0 .375 gm In Sodium Chloride 0.9% 100 ml @ 25 mls/hr IVPB Q12HR ANTHON[facility] Rx #:[id number] Sodium Chloride 0.9% 1, 3000 000 ml @ 999 mls/hr IV . Q1H1M ONE Rx#:[id number] Intake, IV Titration 26.486 280.159 93.797 Amount Insulin Regular 100 unit 6.392 In Sodium Chloride 0.9% 100 ml @ Per Protocol IV .Q0M ANTHON[facility] Rx#:[id number] Norepinephrine 32 mg In 11.168 73.767 27.557 Sodium Chloride 0.9% 218 ml @ 0.05 MCG/KG/MIN 1. 617 mls/hr IV .Q24H ANTHONY Rx#:[id number] Propofol 1,000 mg In 15.318 200.000 66.24 Empty Bag 1 bag @ Titrate IV .Q0M [facility] Rx#: [id number] Output: Urine 375 355 30 Other: Voiding Method Indwelling Catheter Indwelling Catheter # Voids 35 ABP, PAP, CO, CI - Last Documented Arterial Blood Pressure 108/40 - Labs CBC & Chem 7: 07/01/18 05:15 07/01/18 05:15 Labs: Abnormal Lab Results - Last 24 Hours (Table) 06/30/18 06/30/18 06/30/18 Range/Units 07:48 10:13 10:45 WBC (3.8-10.6) k/uL RBC (4.30-5.90) m/uL Hgb (13.0-17.5) gm/dL Hct (39.0-53.0) % MCV (80.0-100.0) fL RDW (11.5-15.5) % Plt Count (150-450) k/uL Neutrophils # (1.3-7.7) k/uL Lymphocytes # (1.0-4.8) k/uL ABG pH 7.07 L* (7.35-7.45) ABG pO2 >400 H (83-108) mmHg ABG HCO3 11 L (21-25) mmol/L ABG Total CO2 12 L (19-24) mmol/L ABG O2 Saturation 100.0 H (94-97) % Chloride (98-107) mmol/L Carbon Dioxide (22-30) mmol/L BUN (9-20) mg/dL Creatinine (0.66-1.25) mg/dL Glucose (74-99) mg/dL POC Glucose (mg/dL) 129 H (75-99) mg/dL Osmolality 340 H* (280-301) mosm/kg Calcium (8.4-10.2) mg/dL Ionized Calcium Cornelius (4.5-5.3) mg/dL Phosphorus (2.5-4.5) mg/dL 06/30/18 06/30/18 06/30/18 Range/Units 11:34 18:39 22:43 WBC (3.8-10.6) k/uL RBC (4.30-5.90) m/uL Hgb (13.0-17.5) gm/dL Hct (39.0-53.0) % MCV (80.0-100.0) fL RDW (11.5-15.5) % Plt Count (150-450) k/uL Neutrophils # (1.3-7.7) k/uL Lymphocytes # (1.0-4.8) k/uL ABG pH 7.26 L (7.35-7.45) ABG pO2 157 H (83-108) mmHg ABG HCO3 20 L (21-25) mmol/L ABG Total CO2 (19-24) mmol/L ABG O2 Saturation 98.6 H (94-97) % Chloride (98-107) mmol/L Carbon Dioxide (22-30) mmol/L BUN (9-20) mg/dL Creatinine (0.66-1.25) mg/dL Glucose (74-99) mg/dL POC Glucose (mg/dL) 227 H 194 H (75-99) mg/dL Osmolality (280-301) mosm/kg Calcium (8.4-10.2) mg/dL Ionized Calcium Cornelius (4.5-5.3) mg/dL Phosphorus (2.5-4.5) mg/dL 06/30/18 07/01/18 07/01/18 Range/Units 23:57 02:05 03:01 WBC (3.8-10.6) k/uL RBC (4.30-5.90) m/uL Hgb (13.0-17.5) gm/dL Hct (39.0-53.0) % MCV (80.0-100.0) fL RDW (11.5-15.5) % Plt Count (150-450) k/uL Neutrophils # (1.3-7.7) k/uL Lymphocytes # (1.0-4.8) k/uL ABG pH (7.35-7.45) ABG pO2 (83-108) mmHg ABG HCO3 (21-25) mmol/L ABG Total CO2 (19-24) mmol/L ABG O2 Saturation (94-97) % Chloride (98-107) mmol/L Carbon Dioxide (22-30) mmol/L BUN (9-20) mg/dL Creatinine (0.66-1.25) mg/dL Glucose (74-99) mg/dL POC Glucose (mg/dL) 109 H 106 H 131 H (75-99) mg/dL Osmolality (280-301) mosm/kg Calcium (8.4-10.2) mg/dL Ionized Calcium Cornelius (4.5-5.3) mg/dL Phosphorus (2.5-4.5) mg/dL 07/01/18 07/01/18 07/01/18 Range/Units 04:01 05:01 05:15 WBC 12.7 H (3.8-10.6) k/uL RBC 2.76 L (4.30-5.90) m/uL Hgb 9.1 L (13.0-17.5) gm/dL Hct 28.5 L (39.0-53.0) % MCV 103.1 H D (80.0-100.0) fL RDW 20.9 H (11.5-15.5) % Plt Count 59 L (150-450) k/uL Neutrophils # 11.1 H (1.3-7.7) k/uL Lymphocytes # 0.7 L (1.0-4.8) k/uL ABG pH (7.35-7.45) ABG pO2 (83-108) mmHg ABG HCO3 (21-25) mmol/L ABG Total CO2 (19-24) mmol/L ABG O2 Saturation (94-97) % Chloride (98-107) mmol/L Carbon Dioxide (22-30) mmol/L BUN (9-20) mg/dL Creatinine (0.66-1.25) mg/dL Glucose (74-99) mg/dL POC Glucose (mg/dL) 154 H 166 H (75-99) mg/dL Osmolality (280-301) mosm/kg Calcium (8.4-10.2) mg/dL Ionized Calcium Cornelius (4.5-5.3) mg/dL Phosphorus (2.5-4.5) mg/dL 07/01/18 07/01/18 07/01/18 Range/Units 05:15 06:05 06:12 WBC (3.8-10.6) k/uL RBC (4.30-5.90) m/uL Hgb (13.0-17.5) gm/dL Hct (39.0-53.0) % MCV (80.0-100.0) fL RDW (11.5-15.5) % Plt Count (150-450) k/uL Neutrophils # (1.3-7.7) k/uL Lymphocytes # (1.0-4.8) k/uL ABG pH (7.35-7.45) ABG pO2 (83-108) mmHg ABG HCO3 (21-25) mmol/L ABG Total CO2 (19-24) mmol/L ABG O2 Saturation (94-97) % Chloride 115 H (98-107) mmol/L Carbon Dioxide 19 L (22-30) mmol/L BUN 94 H (9-20) mg/dL Creatinine 5.81 H (0.66-1.25) mg/dL Glucose 154 H (74-99) mg/dL POC Glucose (mg/dL) 162 H (75-99) mg/dL Osmolality (280-301) mosm/kg Calcium 5.0 L* (8.4-10.2) mg/dL Ionized Calcium Cornelius 3.2 L* (4.5-5.3) mg/dL Phosphorus 6.6 H (2.5-4.5) mg/dL 07/01/18 07/01/18 07/01/18 Range/Units 06:58 07:09 08:56 WBC (3.8-10.6) k/uL RBC (4.30-5.90) m/uL Hgb (13.0-17.5) gm/dL Hct (39.0-53.0) % MCV (80.0-100.0) fL RDW (11.5-15.5) % Plt Count (150-450) k/uL Neutrophils # (1.3-7.7) k/uL Lymphocytes # (1.0-4.8) k/uL ABG pH 7.33 L (7.35-7.45) ABG pO2 (83-108) mmHg ABG HCO3 20 L (21-25) mmol/L ABG Total CO2 (19-24) mmol/L ABG O2 Saturation 97.4 H (94-97) % Chloride (98-107) mmol/L Carbon Dioxide (22-30) mmol/L BUN (9-20) mg/dL Creatinine (0.66-1.25) mg/dL Glucose (74-99) mg/dL POC Glucose (mg/dL) 153 H 128 H (75-99) mg/dL Osmolality (280-301) mosm/kg Calcium (8.4-10.2) mg/dL Ionized Calcium Cornelius (4.5-5.3) mg/dL Phosphorus (2.5-4.5) mg/dL Microbiology - Last 24 Hours (Table) 06/29/18 01:56 Blood Culture - Preliminary Blood No Growth after 48 hours 06/30/18 13:10 Gram Stain - Preliminary Sputum Sputum Culture - Preliminary 06/30/18 08:51 Urine Culture - Preliminary Urine,Catheterized 06/29/18 06:22 Urine Culture - Final Urine,Catheterized
[2018-07-01] MEDS: PIPERACILLIN-TAZOBACTAM 3.375 GM in SODIUM CHLORIDE 0.9% 100 ML IVPB SCH (10:41)
--- NOTE | 2018-07-01 10:55 | PN ---
PROGRESS NOTE DATE OF SERVICE: 07/01/2018 Patient is a 68-year-old pleasant white male admitted to hospital with shortness of breath and anemia. He was on the floor yesterday, transferred to the Intensive Care Unit because of worsening shortness of breath/acute respiratory failure. Presently intubated and remains on the vent and sedated. As per the nursing staff, he was hypotensive and remains on Levophed at 12 mics an hour. Since being in the hospital, did not have any evidence of active gastrointestinal bleed. At the time of admission to the hospital, he did have a hemoglobin of 8 g/dL, but no history of melena or rectal bleeding. PHYSICAL EXAMINATION: He appears comfortable. No apparent distress. VITAL SIGNS: Stable. Blood pressure is 112/42, pulse 86, temperature 98. The patient is sedated on the vent. HEENT examination unremarkable. Conjunctivae pink. Sclerae anicteric. Oral cavity no lesions. CHEST: Clear to auscultation. HEART: Regular rate and rhythm. ABDOMEN: Soft, nontender, nondistended. Bowel sounds are positive. Extremities no pedal edema. Skin: Severe rash along the neckline. Neurological: Could not be assessed as the patient is sedated. LABS: Done today WBC 9.1, hemoglobin 12.7, platelets 59,000. Basic metabolic panel showed a BUN of 94 and creatinine 5.81. IMPRESSION: 1. Normocytic normochromic anemia with no active gastrointestinal bleed. 2. Acute respiratory failure. On the vent, sedated .. 3. History of chronic pancreatitis. 4. 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 RECOMMENDATION: 1. Continue with current ICU management. 2. No plans for any endoscopy intervention for workup of anemia until his cardiorespiratory status stabilizes. 3. We will follow him closely during his hospital stay. Thank you for this consultation. MMODL / IJN: [id number] /
--- NOTE | 2018-07-01 12:14 | P.PN ---
Subjective Progress Note Date: 07/01/18 Principal diagnosis: This is a 68-year-old white male, known history of pancreatitis, attention, he had previous ERCP for bile duct stent with colitis and history of alcohol abuse. Patient presented to [facility] with 1 week history of worsening shortness of breath. Patient was noted to be anemic, and he was transfused with 2 units of packed RBCs upon presentation. He was seen by gastroenterology on consultation and he was being considered for EGD. In the meantime the patient was placed on Protonix. Patient is known to have history of alcohol abuse, drinks liquor on a daily basis, patient had previous history of bile duct stricture in 2014 and pancreatitis, requiring biliary stenting. Patient is also known to have history of thrombocytopenia and macrocytic anemia. Upon presentation, the patient was noted to have fecal occult blood test positive. The patient was admitted on 06/29, and this morning the rapid response team from the ICU and responded to the patient being hypotensive and short of breath. I was notified about the patient's ABG showing a pO2 of 87 pCO2 of 39 and pH of 7.07. His bicarb was noted to be 12. Hence I recommended immediate intubation fluids, and immediate transfer to the intensive care unit. Shortly after, the patient arrived to the ICU, and he was again noted to be hypotensive, more fluid boluses were given. Started the patient on norepinephrine and this will be titrated accordingly to a mean arterial pressure of 65 or higher. Patient was noted to be oliguric, and he likely developed acute tubular necrosis because of low blood pressure, and nephrology consultation was initiated. In the meantime the patient will need to be on broad-spectrum antibiotics for presumptive sepsis. His chest x-ray showed no evidence of infiltrate, however his urine may be infected based on the urinalysis upon admission. Patient is on Rocephin, and he is also on Zosyn. Patient was reevaluated today on 07/01/2018, he remains on mechanical ventilation, his ventilator settings are assist control rate of 20, tidal volume of 450, FiO2 of 40%, and PEEP of 5. Chest x-ray is now shaving clearly bilateral pneumonia right lower lobe infiltrate is noted, and suspect left retrocardiac opacity/consolidation. His sputum is positive for presumptive Pseudomonas. ABG this morning showed a pO2 of 92 pCO2 of 38 pH of 7.33. Patient is metabolically acidotic, remains on sodium bicarb drip and this is related to his sepsis, and acute tubular necrosis/acute kidney injury. Patient remains on propofol, he is also on norepinephrine, 6 mcg/m,. Patient is also on insulin drip. Urine output is about 30 mL per hour. Continues to have a nasogastric tube in place, and he would have enteral feeding started today. Medication-alvarez the patient is on DuoNeb updrafts, Rocephin and Zosyn, will likely change Rocephin to Levaquin since we may be dealing with pseudomonas aeruginosa pneumonia. Patient received significant amount of fluid boluses yesterday, roughly a total of 4 L. And later on he required to be placed on norepinephrine. Again his blood pressure is marginal, but urine output seems to be improving steadily. His BUN today is 94, creatinine is 5.81, improved compared to creatinine yesterday. Patient does have a low ionized calcium, will give the patient calcium gluconate. We'll also cut down on the bicarb drip today. Objective - Vital Signs Vital signs: Vital Signs Temp 97.9 F 07/01/18 08:00 Pulse 60 07/01/18 11:20 Resp 20 07/01/18 10:00 BP 127/69 06/30/18 18:00 Pulse Ox 97 07/01/18 10:00 Intake & Output 06/30/18 07/01/18 07/01/18 18:59 06:59 18:59 Intake Total 4076.486 1380.159 193.797 Output Total 375 355 30 Balance 3701.486 1025.159 163.797 Weight 72.5 kg Intake: IV 4050.0 1100 100 Dextrose 5% in Water 1, 1000 1100 100 000 ml @ 100 mls/hr IV . [id number] ANTHONY with Sodium Bicarb (1 Meq/ml) 150 ml Rx#:[id number] Piperacillin-Tazobactam 3 50.0 .375 gm In Sodium Chloride 0.9% 100 ml @ 25 mls/hr IVPB Q12HR ANTHON[facility] Rx #:[id number] Sodium Chloride 0.9% 1, 3000 000 ml @ 999 mls/hr IV . Q1H1M ONE Rx#:[id number] Intake, IV Titration 26.486 280.159 93.797 Amount Insulin Regular 100 unit 6.392 In Sodium Chloride 0.9% 100 ml @ Per Protocol IV .Q0M ANTHONY Rx#:[id number] Norepinephrine 32 mg In 11.168 73.767 27.557 Sodium Chloride 0.9% 218 ml @ 0.05 MCG/KG/MIN 1. 617 mls/hr IV .Q24H ANTHONY Rx#:[id number] Propofol 1,000 mg In 15.318 200.000 66.24 Empty Bag 1 bag @ Titrate IV .Q0M AN[facility]ONY Rx#: [id number] Output: Urine 375 355 30 Other: Voiding Method Indwelling Catheter Indwelling Catheter # Voids 35 ABP, PAP, CO, CI - Last Documented Arterial Blood Pressure 108/40 - Exam Physical Exam: Revealed a 68-year-old white male, intubated, sedated, in no distress. On propofol, sodium bicarb drip, insulin, norepinephrine, Head: Atraumatic, normocephalic, HEENT:[Neck is supple.] [No neck masses.] [No thyromegaly.] [No JVD.] PERRLA, EOMI, no neck masses, Chest: [Diminished breath sounds at the bases no crackles or rhonchi or wheezes. Cardiac Exam: [Normal S1 and S2, no S3 gallop, no murmur.] Abdomen: [Soft, nontender, no megaly, no rebound, no guarding, normal bowel sounds.] Extremities: [No clubbing, no edema, no cyanosis.] Neurological Exam: Not be assessed, patient is sedated, on propofol drip, Psychiatric could not be assessed. Skin: Evidence of exfoliation of the skin and eczema-like lesions involving the neck area, clavicular areas, and even the arms bilaterally. - Labs CBC & Chem 7: 07/01/18 05:15 07/01/18 05:15 Labs: Abnormal Lab Results - Last 24 Hours (Table) 06/30/18 06/30/18 06/30/18 Range/Units 07:48 18:39 22:43 WBC (3.8-10.6) k/uL RBC (4.30-5.90) m/uL Hgb (13.0-17.5) gm/dL Hct (39.0-53.0) % MCV (80.0-100.0) fL RDW (11.5-15.5) % Plt Count (150-450) k/uL Neutrophils # (1.3-7.7) k/uL Lymphocytes # (1.0-4.8) k/uL ABG pH (7.35-7.45) ABG HCO3 (21-25) mmol/L ABG O2 Saturation (94-97) % Chloride (98-107) mmol/L Carbon Dioxide (22-30) mmol/L BUN (9-20) mg/dL Creatinine (0.66-1.25) mg/dL Glucose (74-99) mg/dL POC Glucose (mg/dL) 227 H 194 H (75-99) mg/dL Osmolality 340 H* (280-301) mosm/kg Calcium (8.4-10.2) mg/dL Ionized Calcium Cornelius (4.5-5.3) mg/dL Phosphorus (2.5-4.5) mg/dL 06/30/18 07/01/18 07/01/18 Range/Units 23:57 02:05 03:01 WBC (3.8-10.6) k/uL RBC (4.30-5.90) m/uL Hgb (13.0-17.5) gm/dL Hct (39.0-53.0) % MCV (80.0-100.0) fL RDW (11.5-15.5) % Plt Count (150-450) k/uL Neutrophils # (1.3-7.7) k/uL Lymphocytes # (1.0-4.8) k/uL ABG pH (7.35-7.45) ABG HCO3 (21-25) mmol/L ABG O2 Saturation (94-97) % Chloride (98-107) mmol/L Carbon Dioxide (22-30) mmol/L BUN (9-20) mg/dL Creatinine (0.66-1.25) mg/dL Glucose (74-99) mg/dL POC Glucose (mg/dL) 109 H 106 H 131 H (75-99) mg/dL Osmolality (280-301) mosm/kg Calcium (8.4-10.2) mg/dL Ionized Calcium Cornelius (4.5-5.3) mg/dL Phosphorus (2.5-4.5) mg/dL 07/01/18 07/01/1807/01/19 Range/Units 04:01 05:01 05:15 WBC 12.7 H (3.8-10.6) k/uL RBC 2.76 L (4.30-5.90) m/uL Hgb 9.1 L (13.0-17.5) gm/dL Hct 28.5 L (39.0-53.0) % MCV 103.1 H D (80.0-100.0) fL RDW 20.9 H (11.5-15.5) % Plt Count 59 L (150-450) k/uL Neutrophils # 11.1 H (1.3-7.7) k/uL Lymphocytes # 0.7 L (1.0-4.8) k/uL ABG pH (7.35-7.45) ABG HCO3 (21-25) mmol/L ABG O2 Saturation (94-97) % Chloride (98-107) mmol/L Carbon Dioxide (22-30) mmol/L BUN (9-20) mg/dL Creatinine (0.66-1.25) mg/dL Glucose (74-99) mg/dL POC Glucose (mg/dL) 154 H 166 H (75-99) mg/dL Osmolality (280-301) mosm/kg Calcium (8.4-10.2) mg/dL Ionized Calcium Cornelius (4.5-5.3) mg/dL Phosphorus (2.5-4.5) mg/dL 07/01/18 07/01/18 07/01/18 Range/Units 05:15 06:05 06:12 WBC (3.8-10.6) k/uL RBC (4.30-5.90) m/uL Hgb (13.0-17.5) gm/dL Hct (39.0-53.0) % MCV (80.0-100.0) fL RDW (11.5-15.5) % Plt Count (150-450) k/uL Neutrophils # (1.3-7.7) k/uL Lymphocytes # (1.0-4.8) k/uL ABG pH (7.35-7.45) ABG HCO3 (21-25) mmol/L ABG O2 Saturation (94-97) % Chloride 115 H (98-107) mmol/L Carbon Dioxide 19 L (22-30) mmol/L BUN 94 H (9-20) mg/dL Creatinine 5.81 H (0.66-1.25) mg/dL Glucose 154 H (74-99) mg/dL POC Glucose (mg/dL) 162 H (75-99) mg/dL Osmolality (280-301) mosm/kg Calcium 5.0 L* (8.4-10.2) mg/dL Ionized Calcium Cornelius 3.2 L* (4.5-5.3) mg/dL Phosphorus 6.6 H (2.5-4.5) mg/dL 07/01/18 07/01/18 07/01/18 Range/Units 06:58 07:09 08:56 WBC (3.8-10.6) k/uL RBC (4.30-5.90) m/uL Hgb (13.0-17.5) gm/dL Hct (39.0-53.0) % MCV (80.0-100.0) fL RDW (11.5-15.5) % Plt Count (150-450) k/uL Neutrophils # (1.3-7.7) k/uL Lymphocytes # (1.0-4.8) k/uL ABG pH 7.33 L (7.35-7.45) ABG HCO3 20 L (21-25) mmol/L ABG O2 Saturation 97.4 H (94-97) % Chloride (98-107) mmol/L Carbon Dioxide (22-30) mmol/L BUN (9-20) mg/dL Creatinine (0.66-1.25) mg/dL Glucose (74-99) mg/dL POC Glucose (mg/dL) 153 H 128 H (75-99) mg/dL Osmolality (280-301) mosm/kg Calcium (8.4-10.2) mg/dL Ionized Calcium Cornelius (4.5-5.3) mg/dL Phosphorus (2.5-4.5) mg/dL Microbiology - Last 24 Hours (Table) 06/30/18 13:10 Gram Stain - Preliminary Sputum Sputum Culture - Preliminary Presumptive Staph aureus 06/30/18 08:54 Blood Culture - Preliminary Blood No Growth after 24 hours 06/29/18 01:56 Blood Culture - Preliminary Blood No Growth after 48 hours 06/30/18 08:51 Urine Culture - Preliminary Urine,Catheterized 06/29/18 06:22 Urine Culture - Final Urine,Catheterized Assessment and Plan Assessment: Impression: 1 septic shock, most likely secondary to Pseudomonas pneumonia infection involving the lungs as noted on the chest x-ray today, this was not clearly appreciated on the chest x-ray upon admission. 2 urinary tract infection is strongly suspected. However cultures are pending 3 Acute metabolic acidosis and hypotension secondary to septic shock. 4 acute kidney injury and renal failure will be addressed by nephrology on the case. 5 possible GI bleeding on presentation. 6 hypothyroidism 7 history of pancreatitis 8 history of vocal abuse 9 chest pain, exact etiology not are not clear, could be cardiac in nature being addressed by cardiology. Recommendation: Patient will remain on mechanical ventilation today, ventilator settings will remain basically about the same. Continue norepinephrine, continue bicarb drip, continue insulin, nutritional support will be initiated, this will be via enteral feeding. Patient will have his antibiotics switched, I would recommend Zosyn and Levaquin since we are dealing with mostly Pseudomonas from the sputum cultures so far. Not ready for any weaning at this point, and continue GI and DVT prophylaxis, his platelets are low, hence the patient will have no heparin, but Venodyne boots and compression stockings were applied. Pr ognosis is definitely guarded, patient remains critically ill, we will continue to follow. Critical care time is 35 minutes. Time with Patient: Greater than 30
[2018-07-01 12:34] LABS: Glucose,Whole Blood 133 mg/dL (75-99)
[2018-07-01] MEDS: INSULIN ASPART (NovoLOG) 100 UNIT/ML VIAL SQ SCH ×3 (13:34→22:08)
--- NOTE | 2018-07-01 14:01 | XR ---
EXAMINATION TYPE: XR chest 1V portable DATE OF EXAM: 07/01/2018 COMPARISON: 06/30/2018 INDICATION: Tube placement TECHNIQUE: Single frontal view of the chest is obtained. FINDINGS: The heart size is normal. The pulmonary vasculature is normal. There is a right lower lobe consolidation. Correlate for pneumonia. Endotracheal tube tip remains above the brett. Nasogastric tube transverses the thorax. IMPRESSION: 1. Right lower lobe infiltrate. Correlate for pneumonia. 2. Lines and catheters discussed above.
[2018-07-01] MEDS: LEVOFLOXACIN 250MG-D5W PMX 250 MG in DEXTROSE/WATER 1 50ML.BAG IVPB SCH (14:19)
[2018-07-01] MEDS: NOREPINEPHRINE 32 MG in SODIUM CHLORIDE 0.9% 218 ML IV SCH (14:19)
--- NOTE | 2018-07-01 16:03 | P.PN ---
Subjective This is a pleasant 68 years old male with past medical history of hypertension and pancreatitis, status post ERCP and bile duct stent with cholecystitis, alcohol abuse. Presents because of dyspnea of one week duration getting worsened over the last 3-4 days duration. With no chest pain, no nausea vomiting. The patient says he has a lot of is patent. He has harsh breath sounds that looks like weight. He has bilateral leg swelling. Patient looks tired and weak On admission his hemoglobin is 8.1, platelets 81, WBC 7.7. INR 1.0, sodium 142, creatinine 4.8, baseline creatinine 1.5-2.0. TSH 8.7, free T4 is low at 0.47. Urinalysis suspicious for infection. He is status post 2 units of blood transfusion . Chest x-ray showing mild pulmonary congestion as per radiologist's report. FOBT is positive. EKG shows sinus bradycardia at 59 with QTC is 522. 06/30/2018 patient today become more hypotensive and hypothermic.when I saw the patient early this morning he was more awake however his blood pressure was 98/60s . he developed leukocytosis, his hemoglobin was 9.9,his creatinine went up to 6.3, potassium 5.5, glucose was 129, lactic acid less than 0.5,ABG showing pH of 7.0 patient has been transferred to the intensive care unit, where he got intubated and central line was placed, patient was started on pressors.patient developed probably acute tubular necrosis and acute renal failure secondary to hypotension and septic shock, and nephrology consult has been called. There is air this morning patient was complaining of from chest pressure, cartilage team has been consulted. Troponins were negative. 07/01/2018 Patient remains in the ICU intubated and sedated. His chest x-ray showing pneumonia today which wasn't obvious and the first chest x-ray. His leukocytosis is improved from 15.5 down to 12.7 K. Platelets is trending down 81 down to 59. Sugar controlled. Creatinine slightly improved from 6.3 down to 5.8. His urine output about 30 mL/h. He has low calcium which is replaced. PH 7.3 which is improved from yesterday. INR is 1.0. Influenza is negative. Sputum culture is growing staph aureus. Blood culture no growth after 24 hours. Urine culture is in the process. Discussed the findings with the infectious disease team. He is currently on clindamycin and livofloxacin. Enteric feeding started today through NG tube. He remains on pressors needing 12.5 mics of norepinephrine. Patient remains critically ill. review of system: Not applicable medication: Albuterol, ceftriaxone, clindamycin , levothyroxine, norepinephrine, Protonix, livofloxacin. Objective - Vital Signs Vital signs: Vital Signs Temp 97.9 F 07/01/18 12:00 Pulse 62 07/01/18 15:27 Resp 20 07/01/18 12:30 BP 127/69 06/30/18 18:00 Pulse Ox 97 07/01/18 12:30 Intake & Output 06/30/18 07/01/18 07/01/18 18:59 06:59 18:59 Intake Total 4076.486 1380.159 662.359 Output Total 375 355 165 Balance 3701.486 1025.159 497.359 Weight 72.5 kg 72.5 kg Intake: IV 4050.0 1100 537.5 Dextrose 5% in Water 1, 1000 1100 500 000 ml @ 75 mls/hr IV . [id number] ANTHONY with Sodium Bicarb (1 Meq/ml) 150 ml Rx#:[id number] Piperacillin-Tazobactam 3 50.0 37.5 .375 gm In Sodium Chloride 0.9% 100 ml @ 25 mls/hr IVPB Q12HR ANTHONY Rx #:[id number] Sodium Chloride 0.9% 1, 3000 000 ml @ 999 mls/hr IV . Q1H1M ONE Rx#:[id number] Intake, IV Titration 26.486 280.159 124.859 Amount Insulin Regular 100 unit 6.392 In Sodium Chloride 0.9% 100 ml @ Per Protocol IV .Q0M ANTHONY Rx#:[id number] Norepinephrine 32 mg In 11.168 73.767 58.619 Sodium Chloride 0.9% 218 ml @ 0.05 MCG/KG/MIN 1. 617 mls/hr IV .Q24H ANTHONY Rx#:[id number] Propofol 1,000 mg In 15.318 200.000 66.24 Empty Bag 1 bag @ Titrate IV .Q0M ANTHONY Rx#: [id number] Output: Urine 375 355 165 Other: Voiding Method Indwelling Catheter Indwelling Catheter # Voids 35 ABP, PAP, CO, CI - Last Documented Arterial Blood Pressure 139/47 - Exam -GENERAL: patient is intubated and sedated HEENT: Pupils are round and equally reacting to light. EOMI. No scleral icterus. No conjunctival pallor. Normocephalic, atraumatic. No pharyngeal erythema. No thyromegaly. CARDIOVASCULAR: S1 and S2 present. No murmurs, rubs, or gallops. -PULMONARY: Chest is clear to auscultation, no wheezing . Bilateral course crackles. ABDOMEN: Soft, nontender, nondistended, normoactive bowel sounds. No palpable organomegaly. MUSCULOSKELETAL: No joint swelling or deformity. -EXTREMITIES: No cyanosis, clubbing, . Bilateral leg edema NEUROLOGICAL: Gross neurological examination did not reveal any focal deficits. SKIN: No rashes. - Labs CBC & Chem 7: 07/01/18 05:15 07/01/18 05:15 Labs: Abnormal Lab Results - Last 24 Hours (Table) 06/30/18 06/30/18 06/30/18 Range/Units 18:39 22:43 23:57 WBC (3.8-10.6) k/uL RBC (4.30-5.90) m/uL Hgb (13.0-17.5) gm/dL Hct (39.0-53.0) % MCV (80.0-100.0) fL RDW (11.5-15.5) % Plt Count (150-450) k/uL Neutrophils # (1.3-7.7) k/uL Lymphocytes # (1.0-4.8) k/uL ABG pH (7.35-7.45) ABG HCO3 (21-25) mmol/L ABG O2 Saturation (94-97) % Chloride (98-107) mmol/L Carbon Dioxide (22-30) mmol/L BUN (9-20) mg/dL Creatinine (0.66-1.25) mg/dL Glucose (74-99) mg/dL POC Glucose (mg/dL) 227 H 194 H 109 H (75-99) mg/dL Calcium (8.4-10.2) mg/dL Ionized Calcium Cornelius (4.5-5.3) mg/dL Phosphorus (2.5-4.5) mg/dL 07/01/18 07/01/1819 Range/Units 02:05 03:01 04:01 WBC (3.8-10.6) k/uL RBC (4.30-5.90) m/uL Hgb (13.0-17.5) gm/dL Hct (39.0-53.0) % MCV (80.0-100.0) fL RDW (11.5-15.5) % Plt Count (150-450) k/uL Neutrophils # (1.3-7.7) k/uL Lymphocytes # (1.0-4.8) k/uL ABG pH (7.35-7.45) ABG HCO3 (21-25) mmol/L ABG O2 Saturation (94-97) % Chloride (98-107) mmol/L Carbon Dioxide (22-30) mmol/L BUN (9-20) mg/dL Creatinine (0.66-1.25) mg/dL Glucose (74-99) mg/dL POC Glucose (mg/dL) 106 H 131 H 154 H (75-99) mg/dL Calcium (8.4-10.2) mg/dL Ionized Calcium Cornelius (4.5-5.3) mg/dL Phosphorus (2.5-4.5) mg/dL 07/01/18 07/01/18 07/01/18 Range/Units 05:01 05:15 05:15 WBC 12.7 H (3.8-10.6) k/uL RBC 2.76 L (4.30-5.90) m/uL Hgb 9.1 L (13.0-17.5) gm/dL Hct 28.5 L (39.0-53.0) % MCV 103.1 H D (80.0-100.0) fL RDW 20.9 H (11.5-15.5) % Plt Count 59 L (150-450) k/uL Neutrophils # 11.1 H (1.3-7.7) k/uL Lymphocytes # 0.7 L (1.0-4.8) k/uL ABG pH (7.35-7.45) ABG HCO3 (21-25) mmol/L ABG O2 Saturation (94-97) % Chloride 115 H (98-107) mmol/L Carbon Dioxide 19 L (22-30) mmol/L BUN 94 H (9-20) mg/dL Creatinine 5.81 H (0.66-1.25) mg/dL Glucose 154 H (74-99) mg/dL POC Glucose (mg/dL) 166 H (75-99) mg/dL Calcium 5.0 L* (8.4-10.2) mg/dL Ionized Calcium Cornelius (4.5-5.3) mg/dL Phosphorus 6.6 H (2.5-4.5) mg/dL 07/01/18 07/01/18 07/01/18 Range/Units 06:05 06:12 06:58 WBC (3.8-10.6) k/uL RBC (4.30-5.90) m/uL Hgb (13.0-17.5) gm/dL Hct (39.0-53.0) % MCV (80.0-100.0) fL RDW (11.5-15.5) % Plt Count (150-450) k/uL Neutrophils # (1.3-7.7) k/uL Lymphocytes # (1.0-4.8) k/uL ABG pH (7.35-7.45) ABG HCO3 (21-25) mmol/L ABG O2 Saturation (94-97) % Chloride (98-107) mmol/L Carbon Dioxide (22-30) mmol/L BUN (9-20) mg/dL Creatinine (0.66-1.25) mg/dL Glucose (74-99) mg/dL POC Glucose (mg/dL) 162 H 153 H (75-99) mg/dL Calcium (8.4-10.2) mg/dL Ionized Calcium Cornelius 3.2 L* (4.5-5.3) mg/dL Phosphorus (2.5-4.5) mg/dL 07/01/18 07/01/18 07/01/18 Range/Units 07:09 08:56 12:21 WBC (3.8-10.6) k/uL RBC (4.30-5.90) m/uL Hgb (13.0-17.5) gm/dL Hct (39.0-53.0) % MCV (80.0-100.0) fL RDW (11.5-15.5) % Plt Count (150-450) k/uL Neutrophils # (1.3-7.7) k/uL Lymphocytes # (1.0-4.8) k/uL ABG pH 7.33 L (7.35-7.45) ABG HCO3 20 L (21-25) mmol/L ABG O2 Saturation 97.4 H (94-97) % Chloride (98-107) mmol/L Carbon Dioxide (22-30) mmol/L BUN (9-20) mg/dL Creatinine (0.66-1.25) mg/dL Glucose (74-99) mg/dL POC Glucose (mg/dL) 128 H 133 H (75-99) mg/dL Calcium (8.4-10.2) mg/dL Ionized Calcium Cornelius (4.5-5.3) mg/dL Phosphorus (2.5-4.5) mg/dL Microbiology - Last 24 Hours (Table) 06/30/18 13:10 Gram Stain - Preliminary Sputum Sputum Culture - Preliminary Presumptive Staph aureus 06/30/18 08:54 Blood Culture - Preliminary Blood No Growth after 24 hours 06/29/18 01:56 Blood Culture - Preliminary Blood No Growth after 48 hours 06/30/18 08:51 Urine Culture - Preliminary Urine,Catheterized Assessment and Plan Assessment: septic shock Metabolic encephalopathy secondary to above metabolic acidosis Fluid overload, with pulmonary congestion, leg swelling. Possible GI bleed Acute blood loss anemia secondary to above Urinary tract infection Acute kidney injury Chronic kidney disease stage III Hypothyroidism Essential hypertension History of pancreatitis History of acute cholecystitis History of bilateral stones status post biliary stent Plan: patient's was sent to the ICU. He got intubated and started on a process. Several consults R following the case including critical/pulmonary care team. [employer]. Patient was started on clindamycin and levofloxacin for possible urinary tract infection and pneumonia. However infectious disease consult for is appreciated to optimize his antibiotic therapy follow-up culture results. GI and cardiology team R following the case as well.DVT and GI prophylaxis. Monitor labs and vitals. Continue with the current medication. Further recommendations based on the clinical course of the patient Patient is in critical condition and prognosis is guarded
[2018-07-01] MEDS: CLINDAMYCIN 900 MG in DEXTROSE 5% IN WATER 50 ML IVPB SCH ×2 (16:55)
[2018-07-01 17:09] LABS: Glucose,Whole Blood 108 mg/dL (75-99)
--- NOTE | 2018-07-01 21:11 | P.CONS ---
History of Present Illness - Reason for Consult Consult date: 07/01/18 - Chief Complaint Progressive shortness of breath - History of Present Illness 68-year-old male that has multiple medical troubles that includes alcoholism, COPD and a history of pancreatitis. The patient required ERCP with pancreatic duct stenting after a recent illness. His related that in the week before admission he started to have progressive shortness of breath, he became profoundly weak and consequently did present for evaluation. Patient was noted to have acute blood loss anemia, acute renal failure and developed respiratory failure The patient did not have significant fever and influenza testing was negative and his lactic acid was normal. The patient hour developed progressive respiratory failure and is now required intubation with sedation and mechanical ventilation. Further information does come from the chart. Review of Systems ROS unobtainable: due to endotracheal tube Past Medical History Past Medical History: Hypertension Additional Past Medical History / Comment(s): Hx calculus of bile duct, acute cholecystitis, pancreatitis. History of Any Multi-Drug Resistant Organisms: None Reported Past Surgical History: Orthopedic Surgery Additional Past Surgical History / Comment(s): cervical surgery, bilateral cataract removal with lens implants, umbilical hernia as a baby, bile duct stent, ERCP, C3-6 plate Past Anesthesia/Blood Transfusion Reactions: No Reported Reaction Past Psychological History: No Psychological Hx Reported Smoking Status: Current every day smoker Past Alcohol Use History: Occasional Past Drug Use History: None Reported - Past Family History Father Family Medical History: Cancer Additional Family Medical History / Comment(s): Melanoma Mother Family Medical History: Cancer Additional Family Medical History / Comment(s): Breast cancer. Medications and Allergies Home Medications and Allergies Comment(s): Current Medications Albuterol/Ipratropium (Duoneb 0.5 Mg-3 Mg/3 Ml Soln) 3 ml INHALATION RT-QID PRN PRN Reason: Shortness Of Breath Or Wheezing Last Admin: 07/01/18 19:59 Dose: 3 ml Documented by: Chlorhexidine Gluconate (Peridex) 15 ml MUCOUS MEM BID [facility] Last Admin: 07/01/18 09:42 Dose: 15 ml Documented by: Sodium Bicarbonate 150 ml/ (Dextrose/Water) 1,150 mls @ 75 mls/hr IV .[id number] [facility] Last Admin: 07/01/18 10:11 Dose: 100 mls/hr Documented by: Propofol 1,000 mg/ IV Solution 100 mls @ 0 mls/hr IV .Q0M [facility]; Protocol Last Titration: 07/01/18 16:00 Dose: Infused Documented by: Norepinephrine Bitartrate 32 (mg/ Sodium Chloride) 250 mls @ 1.617 mls/hr IV .Q24H [facility]; Protocol Last Titration: 07/01/18 18:37 Dose: 0.1 mcg/kg/min, 3.234 mls/hr Documented by: Levofloxacin/Dextrose 250 mg/ (IV Solution) 50 mls @ 50 mls/hr IVPB Q24H [facility] Last Admin: 07/01/18 14:19 Dose: 50 mls/hr Documented by: Clindamycin Phosphate 900 mg/ (Dextrose/Water) 56 mls @ 50 mls/hr IVPB Q8HR [facility] Last Admin: 07/01/18 16:55 Dose: 50 mls/hr Documented by: Insulin Aspart (Novolog) 0 unit SQ Q4HR [facility]; Protocol Last Admin: 07/01/18 17:02 Dose: Not Given Documented by: Levothyroxine Sodium (Synthroid) 100 mcg PO DAILY@0630 [facility] Last Admin: 07/01/18 06:16 Dose: 100 mcg Documented by: Naloxone HCl (Narcan) 0.2 mg IV Q2M PRN PRN Reason: Opioid Reversal Pantoprazole Sodium (Protonix) 40 mg IVP BID [facility] Last Admin: 07/01/18 09:42 Dose: 40 mg Documented by: Sodium Bicarbonate (Sodium Bicarbonate Tab) 650 mg PO DAILY [facility] Last Admin: 07/01/18 09:59 Dose: 650 mg Documented by: Home Medications Medication Instructions Recorded Confirmed Type Metoprolol Tartrate [Lopressor] 12.5 mg PO BID #60 tab 12/31/14 06/29/18 Rx Ergocalciferol [Vitamin D2] 50,000 unit PO Q7D 06/29/18 06/29/18 History Magnesium Oxide [Mag-Ox] 400 mg PO DAILY 06/29/18 06/29/18 History Sodium Bicarbonate Tab 650 mg PO DAILY 06/29/18 06/29/18 History amLODIPine BESYLATE [Norvasc] 10 mg PO DAILY 06/29/18 06/29/18 History Allergies Allergy/AdvReac Type Severity Reaction Status Date / Time No Known Allergies Allergy Verified 06/29/18 10:05 Physical Exam Vitals: Vital Signs Temp Pulse Resp Pulse Ox 07/01/18 20:09 54 L 07/01/18 20:00 55 L 07/01/18 19:00 53 L 20 99 07/01/18 18:30 55 L 20 98 07/01/18 18:00 53 L 20 99 07/01/18 17:30 54 L 20 99 07/01/18 17:00 58 L 20 99 07/01/18 16:30 55 L 20 98 07/01/18 16:00 97.6 F 59 L 20 98 07/01/18 15:30 62 20 97 07/01/18 15:27 62 07/01/18 15:17 61 07/01/18 15:00 62 20 96 07/01/18 14:30 65 20 95 07/01/18 14:00 67 20 96 07/01/18 13:30 65 20 97 07/01/18 13:00 59 L 20 96 07/01/18 12:30 61 20 97 07/01/18 12:00 97.9 F 62 20 97 07/01/18 11:30 59 L 20 98 07/01/18 11:20 60 07/01/18 11:05 60 07/01/18 11:00 59 L 20 98 07/01/18 10:30 60 20 98 07/01/18 10:00 60 20 97 07/01/18 09:30 58 L 20 97 07/01/18 09:00 58 L 20 97 07/01/18 08:30 56 L 20 97 07/01/18 08:00 97.9 F 57 L 20 97 07/01/18 07:41 58 L 07/01/18 07:30 58 L 15 97 07/01/18 07:22 57 L 07/01/18 07:00 94.5 F L 57 L 20 97 07/01/18 06:30 56 L 20 98 07/01/18 06:00 59 L 21 97 07/01/18 05:30 58 L 20 97 07/01/18 05:00 57 L 20 97 07/01/18 04:30 51 L 20 99 07/01/18 04:00 94.5 F L 53 L 20 98 07/01/18 03:30 54 L 20 98 07/01/18 03:00 55 L 20 99 07/01/18 02:30 56 L 20 99 07/01/18 02:00 55 L 20 98 07/01/18 01:30 56 L 20 98 07/01/18 01:00 61 20 98 07/01/18 00:30 59 L 20 98 07/01/18 00:01 64 21 98 06/30/18 23:30 62 24 98 06/30/18 23:00 64 20 98 06/30/18 22:30 64 22 97 06/30/18 22:00 64 21 98 06/30/18 21:30 64 21 98 06/30/18 21:00 61 10 L 98 Intake and Output 07/01/18 07/01/18 07/01/18 06:59 14:59 22:59 Intake Total 1009.365 912.359 430.042 Output Total 190 230 165 Balance 819.365 682.359 265.042 Intake: IV 800 787.5 375 Clindamycin 900 mg In 50 Dextrose 5% in Water 50 ml @ 50 mls/hr IVPB Q8HR [facility] Rx#:[id number] Dextrose 5% in Water 1, 800 650 375 000 ml @ 75 mls/hr IV . [id number] ANTHONY with Sodium Bicarb (1 Meq/ml) 150 ml Rx#:[id number] Levofloxacin 250Mg-D5w 50 Pmx 250 mg In Dextrose/ Water 1 50ml.bag @ 50 mls /hr IVPB Q24H [facility] Rx#: [id number] Piperacillin-Tazobactam 3 37.5 .375 gm In Sodium Chloride 0.9% 100 ml @ 25 mls/hr IVPB Q12HR [facility] Rx #:[id number] Intake, IV Titration 209.365 124.859 55.042 Amount Insulin Regular 100 unit 6.392 In Sodium Chloride 0.9% 100 ml @ Per Protocol IV .Q0M ANTH[facility] Rx#:[id number] Norepinephrine 32 mg In 73.767 58.619 21.282 Sodium Chloride 0.9% 218 ml @ 0.05 MCG/KG/MIN 1. 617 mls/hr IV .Q24H [facility] Rx#:[id number] Propofol 1,000 mg In 129.206 66.24 33.76 Empty Bag 1 bag @ Titrate IV .Q0M [facility] Rx#: [id number] Output: Urine 190 230 165 Other: Voiding Method Indwelling Catheter Indwelling Catheter Indwelling Catheter # Voids 35 Weight 72.5 kg 72.5 kg ABP, PAP, CO, CI - Last 8 Hours Arterial Blood Pressure 121/47 Arterial Blood Pressure 121/48 Arterial Blood Pressure 135/51 Arterial Blood Pressure 135/51 Arterial Blood Pressure 147/55 Arterial Blood Pressure 138/51 Arterial Blood Pressure 142/50 Arterial Blood Pressure 138/48 Arterial Blood Pressure 129/44 Arterial Blood Pressure 125/43 Arterial Blood Pressure 156/50 Arterial Blood Pressure 170/54 Arterial Blood Pressure 105/36 68-year-old male who is intubated sedated and mechanically ventilated and has a normal body weight HEENT: Anicteric conjunctiva are pink and moist nasal mucosa grossly intact without significant lesions, no lesions are noted around the endotracheal tube and no thrush was seen Neck: The neck is not rigid without significant lymphadenopathy or thyromegaly. Lungs: Symmetrical bilateral air entry with coarse crackles throughout the lung yi Heart: Irregular with an audible S4no fever murmur click or rub PMI nondisplaced Abdomen: Positive bowel sounds soft without palpable masses or organomegaly. There was no rigidity Extremities: The upper extremities have excellent pulses they are symmetric, no significant petechiae or telangiectasia. No splinter hemorrhages were noted. Lower extremities have some trace edema no significant open ulcerations are seen Neuro: Intubated sedated and mechanically ventilated Results CBC & Chem 7: 07/01/18 05:15 07/01/18 05:15 Labs: Abnormal Lab Results - Last 24 Hours (Table) 06/30/18 06/30/18 07/01/18 Range/Units 22:43 23:57 02:05 WBC (3.8-10.6) k/uL RBC (4.30-5.90) m/uL Hgb (13.0-17.5) gm/dL Hct (39.0-53.0) % MCV (80.0-100.0) fL RDW (11.5-15.5) % Plt Count (150-450) k/uL Neutrophils # (1.3-7.7) k/uL Lymphocytes # (1.0-4.8) k/uL ABG pH (7.35-7.45) ABG HCO3 (21-25) mmol/L ABG O2 Saturation (94-97) % Chloride (98-107) mmol/L Carbon Dioxide (22-30) mmol/L BUN (9-20) mg/dL Creatinine (0.66-1.25) mg/dL Glucose (74-99) mg/dL POC Glucose (mg/dL) 194 H 109 H 106 H (75-99) mg/dL Calcium (8.4-10.2) mg/dL Ionized Calcium Cornelius (4.5-5.3) mg/dL Phosphorus (2.5-4.5) mg/dL 07/01/18 07/01/18 07/01/18 Range/Units 03:01 04:01 05:01 WBC (3.8-10.6) k/uL RBC (4.30-5.90) m/uL Hgb (13.0-17.5) gm/dL Hct (39.0-53.0) % MCV (80.0-100.0) fL RDW (11.5-15.5) % Plt Count (150-450) k/uL Neutrophils # (1.3-7.7) k/uL Lymphocytes # (1.0-4.8) k/uL ABG pH (7.35-7.45) ABG HCO3 (21-25) mmol/L ABG O2 Saturation (94-97) % Chloride (98-107) mmol/L Carbon Dioxide (22-30) mmol/L BUN (9-20) mg/dL Creatinine (0.66-1.25) mg/dL Glucose (74-99) mg/dL POC Glucose (mg/dL) 131 H 154 H 166 H (75-99) mg/dL Calcium (8.4-10.2) mg/dL Ionized Calcium Cornelius (4.5-5.3) mg/dL Phosphorus (2.5-4.5) mg/dL 07/01/18 07/01/18 07/01/18 Range/Units 05:15 05:15 06:05 WBC 12.7 H (3.8-10.6) k/uL RBC 2.76 L (4.30-5.90) m/uL Hgb 9.1 L (13.0-17.5) gm/dL Hct 28.5 L (39.0-53.0) % MCV 103.1 H D (80.0-100.0) fL RDW 20.9 H (11.5-15.5) % Plt Count 59 L (150-450) k/uL Neutrophils # 11.1 H (1.3-7.7) k/uL Lymphocytes # 0.7 L (1.0-4.8) k/uL ABG pH (7.35-7.45) ABG HCO3 (21-25) mmol/L ABG O2 Saturation (94-97) % Chloride 115 H (98-107) mmol/L Carbon Dioxide 19 L (22-30) mmol/L BUN 94 H (9-20) mg/dL Creatinine 5.81 H (0.66-1.25) mg/dL Glucose 154 H (74-99) mg/dL POC Glucose (mg/dL) 162 H (75-99) mg/dL Calcium 5.0 L* (8.4-10.2) mg/dL Ionized Calcium Cornelius (4.5-5.3) mg/dL Phosphorus 6.6 H (2.5-4.5) mg/dL 07/01/18 07/01/18 07/01/18 Range/Units 06:12 06:58 07:09 WBC (3.8-10.6) k/uL RBC (4.30-5.90) m/uL Hgb (13.0-17.5) gm/dL Hct (39.0-53.0) % MCV (80.0-100.0) fL RDW (11.5-15.5) % Plt Count (150-450) k/uL Neutrophils # (1.3-7.7) k/uL Lymphocytes # (1.0-4.8) k/uL ABG pH 7.33 L (7.35-7.45) ABG HCO3 20 L (21-25) mmol/L ABG O2 Saturation 97.4 H (94-97) % Chloride (98-107) mmol/L Carbon Dioxide (22-30) mmol/L BUN (9-20) mg/dL Creatinine (0.66-1.25) mg/dL Glucose (74-99) mg/dL POC Glucose (mg/dL) 153 H (75-99) mg/dL Calcium (8.4-10.2) mg/dL Ionized Calcium Cornelius 3.2 L* (4.5-5.3) mg/dL Phosphorus (2.5-4.5) mg/dL 07/01/18 07/01/18 07/01/18 Range/Units 08:56 12:21 16:57 WBC (3.8-10.6) k/uL RBC (4.30-5.90) m/uL Hgb (13.0-17.5) gm/dL Hct (39.0-53.0) % MCV (80.0-100.0) fL RDW (11.5-15.5) % Plt Count (150-450) k/uL Neutrophils # (1.3-7.7) k/uL Lymphocytes # (1.0-4.8) k/uL ABG pH (7.35-7.45) ABG HCO3 (21-25) mmol/L ABG O2 Saturation (94-97) % Chloride (98-107) mmol/L Carbon Dioxide (22-30) mmol/L BUN (9-20) mg/dL Creatinine (0.66-1.25) mg/dL Glucose (74-99) mg/dL POC Glucose (mg/dL) 128 H 133 H 108 H (75-99) mg/dL Calcium (8.4-10.2) mg/dL Ionized Calcium Cornelius (4.5-5.3) mg/dL Phosphorus (2.5-4.5) mg/dL Microbiology - Last 24 Hours (Table) 06/30/18 08:51 Urine Culture - Final Urine,Catheterized 06/30/18 13:10 Gram Stain - Preliminary Sputum Sputum Culture - Preliminary Presumptive Staph aureus 06/30/18 08:54 Blood Culture - Preliminary Blood No Growth after 24 hours 06/29/18 01:56 Blood Culture - Preliminary Blood No Growth after 48 hours Laboratory Results WBC 12.7 k/uL (3.8-10.6) H 07/01/18 05:15 RBC 2.76 m/uL (4.30-5.90) L 07/01/18 05:15 Hgb 9.1 gm/dL (13.0-17.5) L 07/01/18 05:15 Hct 28.5 % (39.0-53.0) L 07/01/18 05:15 MCV 103.1 fL (80.0-100.0) H D 07/01/18 05:15 MCH 33.0 pg (25.0-35.0) 07/01/18 05:15 MCHC 32.0 g/dL (31.0-37.0) 07/01/18 05:15 RDW 20.9 % (11.5-15.5) H 07/01/18 05:15 Plt Count 59 k/uL (150-450) L 07/01/18 05:15 Neutrophils % 88 % 07/01/18 05:15 Neutrophils % (Manual) 78 % 06/30/18 07:48 Band Neutrophils % 8 % 06/30/18 07:48 Lymphocytes % 5 % 07/01/18 05:15 Lymphocytes % (Manual) 8 % 06/30/18 07:48 Monocytes % 5 % 07/01/18 05:15 Monocytes % (Manual) 4 % 06/30/18 07:48 Eosinophils % 1 % 07/01/18 05:15 Basophils % 0 % 07/01/18 05:15 Metamyelocytes % 2 % 06/30/18 07:48 Myelocytes % 1 % 06/30/18 07:48 Neutrophils # 11.1 k/uL (1.3-7.7) H 07/01/18 05:15 Neutrophils # (Manual) 13.30 k/uL (1.3-7.7) H 06/30/18 07:48 Lymphocytes # 0.7 k/uL (1.0-4.8) L 07/01/18 05:15 Lymphocytes # (Manual) 1.24 k/uL (1.0-4.8) 06/30/18 07:48 Monocytes # 0.6 k/uL (0-1.0) 07/01/18 05:15 Monocytes # (Manual) 0.62 k/uL (0-1.0) 06/30/18 07:48 Eosinophils # 0.1 k/uL (0-0.7) 07/01/18 05:15 Basophils # 0.0 k/uL (0-0.2) 07/01/18 05:15 Metamyelocytes # (Man) 0.31 k/uL (0) H 06/30/18 07:48 Myelocytes # (Manual) 0.16 k/uL (0) H 06/30/18 07:48 Nucleated RBCs 0 /100 WBC (0-0) 06/30/18 07:48 Manual Slide Review Performed 06/30/18 07:48 Toxic Granulation Present 06/30/18 07:48 Large Platelets Present 06/30/18 07:48 Hypochromasia Slight 07/01/18 05:15 Poikilocytosis Slight 07/01/18 05:15 Poikilocytosis (manual Present 06/30/18 07:48 Anisocytosis Moderate 07/01/18 05:15 Macrocytosis Marked 07/01/18 05:15 PT 10.5 sec (9.0-12.0) 06/29/18 01:56 INR 1.0 (<1.2) 06/29/18 01:56 APTT 31.8 sec (22.0-30.0) H 06/29/18 01:56 Sample Site a line 07/01/18 07:09 ABG pH 7.33 (7.35-7.45) L 07/01/18 07:09 ABG pCO2 38 mmHg (35-45) 07/01/18 07:09 ABG pO2 92 mmHg (83-108) 07/01/18 07:09 ABG HCO3 20 mmol/L (21-25) L 07/01/18 07:09 ABG Total CO2 21 mmol/L (19-24) 07/01/18 07:09 ABG O2 Saturation 97.4 % (94-97) H 07/01/18 07:09 ABG Base Excess -5.8 mmol/L 07/01/18 07:09 Andreas Test no 07/01/18 07:09 FiO2 40 % 07/01/18 07:09 Sodium 144 mmol/L (137-145) 07/01/18 05:15 Potassium 3.9 mmol/L (3.5-5.1) 07/01/18 05:15 Chloride 115 mmol/L (98-107) H 07/01/18 05:15 Carbon Dioxide 19 mmol/L (22-30) L 07/01/18 05:15 Anion Gap 10 mmol/L 07/01/18 05:15 BUN 94 mg/dL (9-20) H 07/01/18 05:15 Creatinine 5.81 mg/dL (0.66-1.25) H 07/01/18 05:15 Est GFR (CKD-EPI)AfAm 11 (>60 ml/min/1.73 sqM) 07/01/18 05:15 Est GFR (CKD-EPI)NonAf 9 (>60 ml/min/1.73 sqM) 07/01/18 05:15 Glucose 154 mg/dL (74-99) H 07/01/18 05:15 POC Glucose (mg/dL) 108 mg/dL (75-99) H 07/01/18 16:57 POC Glu Breakfast Manager ID Radha Anderson 07/01/18 16:57 Osmolality 340 mosm/kg (280-301) H* 06/30/18 07:48 Plasma Lactic Acid Fred <0.5 mmol/L (0.7-2.0) L 06/30/18 08:57 Calcium 5.0 mg/dL (8.4-10.2) L* 07/01/18 05:15 Ionized Calcium Cornelius 3.2 mg/dL (4.5-5.3) L* 07/01/18 06:12 Phosphorus 6.6 mg/dL (2.5-4.5) H 07/01/18 05:15 Magnesium 1.7 mg/dL (1.6-2.3) 07/01/18 05:15 Total Bilirubin 0.3 mg/dL (0.2-1.3) 06/29/18 01:56 AST 55 U/L (17-59) 06/29/18 01:56 ALT 55 U/L (21-72) 06/29/18 01:56 Alkaline Phosphatase 109 U/L (38-126) 06/29/18 01:56 Troponin I <0.012 ng/mL (0.000-0.034) 06/30/18 07:48 Total Protein 5.1 g/dL (6.3-8.2) L 06/29/18 01:56 Albumin 2.6 g/dL (3.5-5.0) L 06/29/18 01:56 Amylase 31 U/L (30-110) 07/01/18 06:15 Lipase 127 U/L (23-300) 07/01/18 06:15 TSH 8.700 mIU/L (0.465-4.680) H 06/29/18 01:56 Free T4 0.47 ng/dL (0.78-2.19) L 06/29/18 01:56 Cortisol 16 ug/dL 07/01/18 06:15 Urine Color Yellow 06/29/18 06:22 Urine Appearance Cloudy (Clear) 06/29/18 06:22 Urine pH 5.5 (5.0-8.0) 06/29/18 06:22 Ur Specific Torrey 1.015 (1.001-1.035) 06/29/18 06:22 Urine Protein 2+ (Negative) H 06/29/18 06:22 Urine Glucose (UA) Negative (Negative) 06/29/18 06:22 Urine Ketones Negative (Negative) 06/29/18 06:22 Urine Blood Moderate (Negative) H 06/29/18 06:22 Urine Nitrite Negative (Negative) 06/29/18 06:22 Urine Bilirubin Negative (Negative) 06/29/18 06:22 Urine Urobilinogen <2.0 mg/dL (<2.0) 06/29/18 06:22 Ur Leukocyte Esterase Moderate (Negative) H 06/29/18 06:22 Urine RBC 56 /hpf (0-5) H 06/29/18 06:22 Urine WBC 26 /hpf (0-5) H 06/29/18 06:22 Ur Squamous Epith Cells <1 /hpf (0-4) 06/29/18 06:22 Urine Mucus Rare /hpf (None) H 06/29/18 06:22 Stool Occult Blood Positive (Negative) 06/29/18 04:16 Influenza Type A RNA Not Detected (Not Detectd) 06/30/18 07:50 Influenza Type B (PCR) Not Detected (Not Detectd) 06/30/18 07:50 Blood Type A Positive 06/29/18 03:30 Blood Type Recheck No 06/29/18 03:30 Antibody Screen NEGATIVE 06/29/18 03:30 Crossmatch See Detail 06/29/18 03:30 Spec Expiration Date 07/02/2018 - 6163 06/29/18 03:30 Microbiology 06/30/18 08:51 Urine,Catheterized Urine Culture - Final 06/30/18 13:10 Sputum Gram Stain - Preliminary 06/30/18 13:10 Sputum Sputum Culture - Preliminary Presumptive Staph aureus 06/30/18 08:54 Blood Blood Culture - Preliminary No Growth after 24 hours 06/29/18 01:56 Blood Blood Culture - Preliminary No Growth after 48 hours 06/29/18 06:22 Urine,Catheterized Urine Culture - Final Chest x-ray: image reviewed (Right lower lobe infiltrate, endotracheal tube in place) Assessment and Plan (1) MUMTAZ (acute kidney injury) Current Visit: Yes Status: Acute Code(s): N17.9 - ACUTE KIDNEY FAILURE, UNSPECIFIED SNOMED Code(s): 96753418 (2) Acute blood loss anemia Current Visit: Yes Status: Acute Code(s): D62 - ACUTE POSTHEMORRHAGIC ANEMIA SNOMED Code(s): 780698501 (3) Staphylococcus aureus pneumonia Narrative/Plan: 68 year old male that has multiple medical troubles including a history of pancreatitis requiring biliary stent. At this time he has developed respiratory failure as well as acute renal failure and blood loss anemia. The patient has been intubated and is mechanically ventilated. Sputum is showing evidence of a staphylococcal infection in is unknown at this point in time if this is MRSA. Consequently antibiotic therapy is enhanced by adding clindamycin intravenously. Vancomycin was avoided given his acute renal failure and avoidance of any other nephrotoxins. He is on Levophed consequently Zyvox is not possible Ceftaroline not available. Final culture result will help determine final choice of antibiotic therapy. With his chronic liver disease he is noticed to have thrombocytopenia which is likely worsened because of the current sepsis from his pneumonia. Blood cultures were negative so far. Influenza was negative. He did have relative hypothermia and a bear hugger is in place, this is concerning given his sepsis. Current Visit: Yes Status: Acute Code(s): J15.211 - PNEUMONIA DUE TO METHICILLIN SUSCEP STAPH SNOMED Code(s): 100291702
[2018-07-01 22:09] LABS: Glucose,Whole Blood 132 mg/dL (75-99)
[2018-07-01 23:52] LABS: Glucose,Whole Blood 138 mg/dL (75-99)
[2018-07-02] MEDS: DEXTROSE 5% IN WATER 1,000 ML with SODIUM BICARB (1 MEQ/ML) 150 ML IV SCH (00:10)
[2018-07-02] MEDS: INSULIN ASPART (NovoLOG) 100 UNIT/ML VIAL SQ SCH ×6 (00:14→22:01)
[2018-07-02] MEDS: CLINDAMYCIN 900 MG in DEXTROSE 5% IN WATER 50 ML IVPB SCH ×4 (00:30→08:10)
[2018-07-02] MEDS: PROPOFOL 1,000 MG in EMPTY BAG 1 BAG IV SCH ×3 (02:07→11:59)
[2018-07-02 04:22] LABS: ABG Base Excess 0.3 mmol/L; ABG HCO3 25 mmol/L (21-25); ABG Oxygen Saturation 99.4 % (94-97); ABG PCO2 38 mmHg (35-45); ABG PH 7.42 (7.35-7.45); ABG PO2 135 mmHg (83-108); ABG TCO2 26 mmol/L (19-24)
[2018-07-02 04:40] LABS: Glucose,Whole Blood 136 mg/dL (75-99)
[2018-07-02 04:44] LABS: Anisocytosis Moderate; Basophils % (A) 0 %; Eosinophils # (A) 0.2 k/uL (0-0.7); Eosinophils % (A) 2 %; HCT 26.1 % (39.0-53.0); HGB 8.5 gm/dL (13.0-17.5); Lymphocytes # (A) 0.9 k/uL (1.0-4.8); Lymphocytes % (A) 10 %; MCH 32.4 pg (25.0-35.0); MCHC 32.5 g/dL (31.0-37.0); MCV 99.6 fL (80.0-100.0); Macrocytosis Moderate; Mean Platelet Volume 10.9; Monocytes # (A) 0.6 k/uL (0-1.0); Monocytes % (A) 6 %; Neutrophils # (A) 7.5 k/uL (1.3-7.7); Neutrophils % (A) 81 %; Platelet Count 38 k/uL (150-450); Poikilocytosis Slight; RBC 2.62 m/uL (4.30-5.90); WBC 9.3 k/uL (3.8-10.6)
[2018-07-02 04:56] LABS: Potassium 3.2 mmol/L (3.5-5.1)
[2018-07-02] MEDS: LEVOTHYROXINE 100 MCG TAB PO SCH (07:01)
[2018-07-02] MEDS: IPRATROPIUM-ALBUTEROL 3 ML NEB INHALATION SCH ×5 (07:31→23:10)
--- NOTE | 2018-07-02 07:34 | XR ---
EXAMINATION TYPE: XR chest 1V portable DATE OF EXAM: 07/02/2018 CLINICAL HISTORY: Difficulty breathing progress study. TECHNIQUE: Single AP portable semiupright view of the chest is obtained. COMPARISON: Chest x-ray from one day earlier and older studies. FINDINGS: An endotracheal tube and orogastric tube are stable in appearance. There is cardiomegaly. There is bibasilar opacity. Upper lungs are clear without pneumothorax. Osseous structures are demine ralized. There is partial visualization of healing or healed fracture left proximal humerus. IMPRESSION: Overall stable findings, cardiomegaly with small bilateral pleural effusions and associ ated bibasilar atelectasis and/or infiltrate all redemonstrated.
[2018-07-02] MEDS: PANTOPRAZOLE 40 MG/10 ML VIAL IVP SCH ×2 (08:09→22:01)
[2018-07-02] MEDS: CHLORHEXIDINE GLUCONATE 15 ML CUP MUCOUS MEM SCH ×2 (08:10→22:01)
[2018-07-02] MEDS: SODIUM BICARBONATE TAB 650 MG TAB PO SCH (08:10)
--- NOTE | 2018-07-02 08:33 | PN ---
PROGRESS NOTE This is a patient seen by my partner in consultation a few days back. He apparently was admitted to the hospital on the 29 of June and was intubated for respiratory failure and shortness of breath on June 30. He was seen again in evaluation yesterday by my partner. The patient apparently has history of septic shock, likely secondary to pneumonia. He did have a sputum that was apparently positive for presumptive Staph aureus. In addition, he is suspected to have urinary tract infection, acute metabolic acidosis, acute kidney injury, possible GI bleed, hypothyroidism, pancreatitis, and chest pain. The patient was initially admitted with GI bleed and had 2 units of PRBCs, acute kidney injury and anemia. Currently, the patient is maintained on the mechanical ventilator. He is on the volume assist-control mode rate of 20, tidal volume 450, FiO2 40%, which is going to be dropped to 30% and PEEP of 5. Arterial blood gases show pO2 of 135, a PaCO2 of 38, pH 7.42. This is consistent with hyperoxia and a normal acid-base status. Because the pO2 was 135, the FiO2 was dropped down to 30%. He is getting IVs with 3 amps of sodium bicarbonate and D5W at 75 mL an hour, propofol at 27 mcg/kg per minute, Levophed at 7 mcg/minute, 0.9 at KVO and Vital high-protein at 35 with a goal of 50 mL an hour. Sputum does show evidence of presumptive Staph aureus. The patient is currently sedated. Apparently an uneventful night. When I went into the room initially, the patient's Levophed was off, but then it was turned back on as I entered the room. Current vital signs include a temperature 97.5, heart rate of 60, respiratory rate of 20, and a blood pressure of 94/44. Saturations are mid 90s. Appears in no acute distress, currently sedated. HEENT examination is grossly unremarkable. There is an orally placed endotracheal tube and NG tube. NECK: Supple. Full range of motion. No adenopathy or thyromegaly. Neck veins are flat. Cardiovascular examination reveals regular rhythm and rate. Heart rate about 60 per beats per minute. S1, S2 normal. Heart sounds are distant. Lungs reveal coarse breath sounds bilaterally. No wheezes or crackles. Breath sounds are equal. Abdomen is soft. Bowel sounds are heard. Extremities are intact. No cyanosis, clubbing, or edema. Skin without rash. Neurologic examination could not be adequately assessed. Current laboratory data includes a white count 9.3, hemoglobin 8.5, hematocrit 26.1, and platelet count is 38,000. Sodium 145, potassium 3.2, chloride 113, CO2 23. Anion gap is 9. BUN and creatinine were 95 and 5.78. Calcium is 5. C diff study is negative. Chest x-ray shows NG tube and endotracheal tube in proper position. There may be a right lower lobe infiltrate. There also may be some density in the retrocardiac area. Microbiology shows the sputum from the that show presumptive Staph aureus. Medications are reviewed. The patient received some calcium replacement, chlorhexidine, clindamycin, insulin, updrafts with DuoNeb, Levaquin, levothyroxine, Narcan, norepinephrine, Protonix, and the IVs. ASSESSMENT: 1. Acute hypoxemic respiratory failure requiring intubation and mechanical ventilation on June 30 for possible pneumonia secondary to Staphylococcus aureus. 2. Possible urinary tract infection, although urine sampling is thus far been negative. 3. Acute metabolic acidosis and hypotension secondary to septic shock. 4. History of acute kidney injury. 5. Gastrointestinal bleed, status post 2 units of PRBCs. 6. Hypothyroidism. 7. History of pancreatitis. 8. Chest discomfort/pain. 9. Thrombocytopenia. PLAN: The patient's FiO2 was dropped from 40% to 30%. We will turn off the IV bicarb drip. The acid-base status is now normal. The patient will get a daily interruption of sedation. The Levophed was turned back on for hypotension. The patient has received 2 units of PRBCs. The patient is being nourished with Vital high-protein. We will increase that to 50 mL an hour which is goal. Will have to add something for DVT prophylaxis. Additional recommendations and suggestions are forthcoming. Prognosis is very guarded given the fact that the patient does have multiorgan system failure. Additional recommendations and suggestions forthcoming. CRITICAL CARE TIME: 36 minutes. MMAMANUELL / HARPERN: [id number] /
[2018-07-02 08:54] LABS: Glucose,Whole Blood 150 mg/dL (75-99)
--- NOTE | 2018-07-02 09:29 | P.PN ---
Subjective This is a pleasant 68 years old male with past medical history of hypertension and pancreatitis, status post ERCP and bile duct stent with cholecystitis, alcohol abuse. Presents because of dyspnea of one week duration getting worsened over the last 3-4 days duration. With no chest pain, no nausea vomiting. The patient says he has a lot of is patent. He has harsh breath sounds that looks like weight. He has bilateral leg swelling. Patient looks tired and weak On admission his hemoglobin is 8.1, platelets 81, WBC 7.7. INR 1.0, sodium 142, creatinine 4.8, baseline creatinine 1.5-2.0. TSH 8.7, free T4 is low at 0.47. Urinalysis suspicious for infection. He is status post 2 units of blood transfusion . Chest x-ray showing mild pulmonary congestion as per radiologist's report. FOBT is positive. EKG shows sinus bradycardia at 59 with QTC is 522. 06/30/2018 patient today become more hypotensive and hypothermic.when I saw the patient early this morning he was more awake however his blood pressure was 98/60s . he developed leukocytosis, his hemoglobin was 9.9,his creatinine went up to 6.3, potassium 5.5, glucose was 129, lactic acid less than 0.5,ABG showing pH of 7.0 patient has been transferred to the intensive care unit, where he got intubated and central line was placed, patient was started on pressors.patient developed probably acute tubular necrosis and acute renal failure secondary to hypotension and septic shock, and nephrology consult has been called. There is air this morning patient was complaining of from chest pressure, cartilage team has been consulted. Troponins were negative. 07/01/2018 Patient remains in the ICU intubated and sedated. His chest x-ray showing pneumonia today which wasn't obvious and the first chest x-ray. His leukocytosis is improved from 15.5 down to 12.7 K. Platelets is trending down 81 down to 59. Sugar controlled. Creatinine slightly improved from 6.3 down to 5.8. His urine output about 30 mL/h. He has low calcium which is replaced. PH 7.3 which is improved from yesterday. INR is 1.0. Influenza is negative. Sputum culture is growing staph aureus. Blood culture no growth after 24 hours. Urine culture is in the process. Discussed the findings with the infectious disease team. He is currently on clindamycin and livofloxacin. Enteric feeding started today through NG tube. He remains on pressors needing 12.5 mics of norepinephrine. Patient remains critically ill. 07/02/2018 Patient remains in the ICU, his needing minimal amount of epinephrine drip, most likely is is going to be stopped today. Patient currently blood pressure is 106/44. Patient remains hypothermic with temperature 90.6 and he is on bear hugg. His culture and sputum is growing staph aureus, with final results are still pending. Patient is currently on clindamycin and Levaquin, recommended by infectious disease specialist. Patient bicarb drip was stopped and remains on oral bicarb. Patient is making about 30 mL per hour and his creatinine is 5.7. He has low calcium which is been replaced. Patient is still intubated, possible sedation holiday. Patient is minimally responsive to tactile and verbal stimuli. Patient has been followed by several consultants including pulmonary/critical care, infectious disease, GI, and entry level marketing assistant. Patient remains in critical condition review of system: Not applicable medication: Albuterol, ceftriaxone, clindamycin , levothyroxine, norepinephrine, Protonix, livofloxacin. Objective - Vital Signs Vital signs: Vital Signs Temp 96.0 F L 07/02/18 08:00 Pulse 55 L 07/02/18 08:00 Resp 20 07/02/18 08:00 BP 86/55 07/02/18 06:00 Pulse Ox 93 L 07/02/18 08:00 Intake & Output 07/01/18 07/02/18 07/02/18 18:59 06:59 18:59 Intake Total 8136.707 1129.948 254.210 Output Total 355 390 30 Balance 686.556 4905.948 224.210 Weight 72.5 kg Intake: IV 1087.5 1095 135 Clindamycin 900 mg In 50 50 Dextrose 5% in Water 50 ml @ 50 mls/hr IVPB Q8HR ANTHONY Rx#:[id number] Dextrose 5% in Water 1, 950 975 75 000 ml @ 75 mls/hr IV . [id number] ANTHONY with Sodium Bicarb (1 Meq/ml) 150 ml Rx#:[id number] Levofloxacin 250Mg-D5w 50 Pmx 250 mg In Dextrose/ Water 1 50ml.bag @ 50 mls /hr IVPB Q24H ANTHONY Rx#: [id number] Piperacillin-Tazobactam 3 37.5 .375 gm In Sodium Chloride 0.9% 100 ml @ 25 mls/hr IVPB Q12HR ANTHONY Rx #:[id number] carrier IV .9%NS 120 10 Intake, IV Titration 179.901 67.948 84.210 Amount Clindamycin 900 mg In 50 Dextrose 5% in Water 50 ml @ 50 mls/hr IVPB Q8HR ANTHONY Rx#:[id number] Norepinephrine 32 mg In 79.901 17.948 12.253 Sodium Chloride 0.9% 218 ml @ 0.05 MCG/KG/MIN 1. 617 mls/hr IV .Q24H ANTHONY Rx#:[id number] Propofol 1,000 mg In 100.00 71.957 Empty Bag 1 bag @ Titrate IV .Q0M ANTHONY Rx#: [id number] Tube Feeding 330 35 Other 60 Output: Urine 355 390 30 Other: Voiding Method Indwelling Catheter Indwelling Catheter # Voids 35 ABP, PAP, CO, CI - Last Documented Arterial Blood Pressure 106/44 - Exam -GENERAL: patient is intubated and sedated HEENT: Pupils are round and equally reacting to light. EOMI. No scleral icterus. No conjunctival pallor. Normocephalic, atraumatic. No pharyngeal erythema. No thyromegaly. CARDIOVASCULAR: S1 and S2 present. No murmurs, rubs, or gallops. -PULMONARY: Chest is clear to auscultation, no wheezing . Bilateral course crackles. ABDOMEN: Soft, nontender, nondistended, normoactive bowel sounds. No palpable organomegaly. MUSCULOSKELETAL: No joint swelling or deformity. -EXTREMITIES: No cyanosis, clubbing, . Bilateral leg edema NEUROLOGICAL: Gross neurological examination did not reveal any focal deficits. SKIN: No rashes. - Labs CBC & Chem 7: 07/02/18 04:20 07/02/18 04:20 Labs: Abnormal Lab Results - Last 24 Hours (Table) 07/01/18 07/01/18 07/01/18 Range/Units 12:21 16:57 21:58 RBC (4.30-5.90) m/uL Hgb (13.0-17.5) gm/dL Hct (39.0-53.0) % RDW (11.5-15.5) % Plt Count (150-450) k/uL Lymphocytes # (1.0-4.8) k/uL ABG pO2 (83-108) mmHg ABG Total CO2 (19-24) mmol/L ABG O2 Saturation (94-97) % Potassium (3.5-5.1) mmol/L Chloride (98-107) mmol/L BUN (9-20) mg/dL Creatinine (0.66-1.25) mg/dL Glucose (74-99) mg/dL POC Glucose (mg/dL) 133 H 108 H 132 H (75-99) mg/dL Calcium (8.4-10.2) mg/dL 07/01/18 07/02/18 07/02/18 Range/Units 23:41 04:19 04:20 RBC 2.62 L (4.30-5.90) m/uL Hgb 8.5 L (13.0-17.5) gm/dL Hct 26.1 L (39.0-53.0) % RDW 20.0 H (11.5-15.5) % Plt Count 38 L (150-450) k/uL Lymphocytes # 0.9 L (1.0-4.8) k/uL ABG pO2 135 H (83-108) mmHg ABG Total CO2 26 H (19-24) mmol/L ABG O2 Saturation 99.4 H (94-97) % Potassium (3.5-5.1) mmol/L Chloride (98-107) mmol/L BUN (9-20) mg/dL Creatinine (0.66-1.25) mg/dL Glucose (74-99) mg/dL POC Glucose (mg/dL) 138 H (75-99) mg/dL Calcium (8.4-10.2) mg/dL 07/02/18 07/02/18 07/02/18 Range/Units 04:20 04:30 08:33 RBC (4.30-5.90) m/uL Hgb (13.0-17.5) gm/dL Hct (39.0-53.0) % RDW (11.5-15.5) % Plt Count (150-450) k/uL Lymphocytes # (1.0-4.8) k/uL ABG pO2 (83-108) mmHg ABG Total CO2 (19-24) mmol/L ABG O2 Saturation (94-97) % Potassium 3.2 L (3.5-5.1) mmol/L Chloride 113 H (98-107) mmol/L BUN 95 H (9-20) mg/dL Creatinine 5.78 H (0.66-1.25) mg/dL Glucose 114 H (74-99) mg/dL POC Glucose (mg/dL) 136 H 150 H (75-99) mg/dL Calcium 5.0 L* (8.4-10.2) mg/dL Microbiology - Last 24 Hours (Table) 06/29/18 01:56 Blood Culture - Preliminary Blood No Growth after 72 hours 06/30/18 08:51 Urine Culture - Final Urine,Catheterized 06/30/18 13:10 Gram Stain - Preliminary Sputum Sputum Culture - Preliminary Presumptive Staph aureus 06/30/18 08:54 Blood Culture - Preliminary Blood No Growth after 24 hours Assessment and Plan Assessment: septic shock Metabolic encephalopathy secondary to above metabolic acidosis Fluid overload, with pulmonary congestion, leg swelling. Possible GI bleed Acute blood loss anemia secondary to above Urinary tract infection Acute kidney injury Chronic kidney disease stage III Hypothyroidism Essential hypertension History of pancreatitis History of acute cholecystitis History of bilateral stones status post biliary stent Plan: patient's was sent to the ICU. He got intubated and started on a process. Several consults R following the case including critical/pulmonary care team. Clinical Research Spec. Patient was started on clindamycin and levofloxacin for possible urinary tract infection and pneumonia. However infectious disease consult for is appreciated to optimize his antibiotic therapy follow-up culture results. GI and cardiology team R following the case as well.DVT and GI prophylaxis. Monitor labs and vitals. Continue with the current medication. Further recommendations based on the clinical course of the patient Patient is in critical condition and prognosis is guarded
[2018-07-02] MEDS: SODIUM CHLORIDE 0.45% 1,000 ML IV SCH ×2 (10:05→22:02)
--- NOTE | 2018-07-02 10:32 | P.CONS ---
History of Present Illness - Reason for Consult Consult date: 07/02/18 thrombocyopenia with normal coags Requesting physician: [place] E Sheet - Chief Complaint SOB - History of Present Illness Patient is seen in the intensive care unit. He is sedated and mechanically ventilated. History is taken from the chart. Patient was admitted 3 days ago with complaints of shortness of breath and difficulty in breathing, progressive over the past couple of days, increased sputum production, chills and fatigue. Shortly after admission patient deco mpensated rather quickly, hypotension, hypothermia, he was admitted to the intensive care unit intubated and on levophed. Blood and urine cultures are negative, influenza was negative, most recent chest x-ray showing a left lower lobe infiltrate, sputum culture is pending, presumptive staph. His labs showed macrocytic anemia with thrombocytopenia, and chart review this has been present but significantly worse this visit. He has been seen by Gastroenterology for suspect gastrointestinal bleeding- occult was positive, there is a suspicion for alcoholic liver disease due to patient's history of EtOH abuse, patient does have a history of ERCP with biliary stenting secondary to pancreatitis. C ardiology has evaluated the patient, no evidence of an acute coronary syndrome. Nephrology following for acute on chronic renal failure. He had a bronchoscopy with Pulmonary, patient is positive for infection with a staph species, Infectious Disease is seeing the patient for the same. Review of Systems ROS unobtainable: due to endotracheal tube Past Medical History Past Medical History: Hypertension Additional Past Medical History / Comment(s): Hx calculus of bile duct, acute cholecystitis, pancreatitis. History of Any Multi-Drug Resistant Organisms: None Reported Past Surgical History: Orthopedic Surgery Additional Past Surgical History / Comment(s): cervical surgery, bilateral cataract removal with lens implants, umbilical hernia as a baby, bile duct stent, ERCP, C3-6 plate Past Anesthesia/Blood Transfusion Reactions: No Reported Reaction Past Psychological History: No Psychological Hx Reported Smoking Status: Current every day smoker Past Alcohol Use History: Occasional Past Drug Use History: None Reported - Past Family History Father Family Medical History: Cancer Additional Family Medical History / Comment(s): Melanoma Mother Family Medical History: Cancer Additional Family Medical History / Comment(s): Breast cancer. Medications and Allergies Home Medications Medication Instructions Recorded Confirmed Type Metoprolol Tartrate [Lopressor] 12.5 mg PO BID #60 tab 12/31/14 06/29/18 Rx Ergocalciferol [Vitamin D2] 50,000 unit PO Q7D 06/29/18 06/29/18 History Magnesium Oxide [Mag-Ox] 400 mg PO DAILY 06/29/18 06/29/18 History Sodium Bicarbonate Tab 650 mg PO DAILY 06/29/18 06/29/18 History amLODIPine BESYLATE [Norvasc] 10 mg PO DAILY 06/29/18 06/29/18 History Allergies Allergy/AdvReac Type Severity Reaction Status Date / Time No Known Allergies Allergy Verified 06/29/18 10:05 Physical Exam Vitals: Vital Signs Temp Pulse Resp BP Pulse Ox 07/02/18 10:00 96.3 F L 59 L 20 95 07/02/18 09:00 57 L 20 97 07/02/18 08:00 96.0 F L 55 L 20 93 L 07/02/18 07:51 53 L 07/02/18 07:35 52 L 07/02/18 07:00 52 L 20 95 07/02/18 06:00 93.9 F L 51 L 20 86/55 94 L 07/02/18 05:00 48 L 20 95 07/02/18 04:00 97.5 F L 48 L 20 84/57 98 07/02/18 03:00 49 L 20 127/69 98 07/02/18 02:00 52 L 20 127/69 97 07/02/18 01:00 52 L 20 98 07/02/18 00:00 97.5 F L 56 L 20 127/69 99 07/01/18 23:00 56 L 20 127/69 96 07/01/18 22:00 56 L 20 127/69 97 07/01/18 21:00 56 L 20 127/69 97 07/01/18 20:09 54 L 07/01/18 20:00 97.6 F 53 L 20 127/69 98 07/01/18 19:00 53 L 20 99 07/01/18 18:30 55 L 20 98 07/01/18 18:00 53 L 20 99 07/01/18 17:30 54 L 20 99 07/01/18 17:00 58 L 20 99 07/01/18 16:30 55 L 20 98 07/01/18 16:00 97.6 F 59 L 20 98 07/01/18 15:30 62 20 97 07/01/18 15:27 62 07/01/18 15:17 61 07/01/18 15:00 62 20 96 07/01/18 14:30 65 20 95 07/01/18 14:00 67 20 96 07/01/18 13:30 65 20 97 07/01/18 13:00 59 L 20 96 07/01/18 12:30 61 20 97 07/01/18 12:00 97.9 F 62 20 97 07/01/18 11:30 59 L 20 98 07/01/18 11:20 60 07/01/18 11:05 60 07/01/18 11:00 59 L 20 98 07/01/18 10:30 60 20 98 Intake and Output 07/01/18 07/02/18 07/02/18 22:59 06:59 14:59 Intake Total 412.510 2114.36 524.210 Output Total 255 260 90 Balance 501.630 891.36 434.210 Intake: IV 630 765 155 Clindamycin 900 mg In 50 Dextrose 5% in Water 50 ml @ 50 mls/hr IVPB Q8HR ANTHON[facility] Rx#:[id number] Dextrose 5% in Water 1, 600 675 75 000 ml @ 75 mls/hr IV . [id number] ANTHONY with Sodium Bicarb (1 Meq/ml) 150 ml Rx#:[id number] carrier IV .9%NS 30 90 30 Intake, IV Titration 66.630 56.36 234.210 Amount Clindamycin 900 mg In 50 Dextrose 5% in Water 50 ml @ 50 mls/hr IVPB Q8HR ANTHONY Rx#:[id number] Norepinephrine 32 mg In 32.870 6.36 12.253 Sodium Chloride 0.9% 218 ml @ 0.05 MCG/KG/MIN 1. 617 mls/hr IV .Q24H ANTHONY Rx#:[id number] Propofol 1,000 mg In 33.76 71.957 Empty Bag 1 bag @ Titrate IV .Q0M ANTHONY Rx#: [id number] Sodium Chloride 0.45% 1, 150 000 ml @ 75 mls/hr IV . [id number] ANTHONY Rx#:[id number] Tube Feeding 60 270 105 Other 60 30 Output: Urine 255 260 90 Other: Voiding Method Indwelling Catheter Indwelling Catheter # Voids 35 ABP, PAP, CO, CI - Last 8 Hours Arterial Blood Pressure 114/50 Arterial Blood Pressure 130/55 Arterial Blood Pressure 106/44 Arterial Blood Pressure 124/52 Arterial Blood Pressure 86/40 Arterial Blood Pressure 94/44 Arterial Blood Pressure 141/66 Arterial Blood Pressure 129/54 - Constitutional General appearance: average body habitus, no acute distress - EENT Normocephalic, trachea is midline, no cervical, supraclavicular adenopathy Eyes: anicteric sclerae - Neck Neck: no lymphadenopathy - Respiratory Respiratory: bilateral: CTA - Cardiovascular Heart sounds: normal: S1, S2 Abnormal Heart Sounds: no systolic murmur, no diastolic murmur, no rub, no S3 Gallop, no S4 Gallop, no click, no other - Gastrointestinal General gastrointestinal: no absent bowel sounds, no decreased bowel sounds, no distended, no hepatomegaly, no hyperactive bowel sounds, normal bowel sounds, no organomegaly, no rigid, no scaphoid, soft, no tenderness, no umbilical hernia, no ventral hernia - Integumentary Integumentary: pale - Musculoskeletal Unable to assess due to sedation - Psychiatric Psychiatric: no A&O x's 3, no appropriate affect, no intact judgment & insight Results CBC & Chem 7: 07/02/18 04:20 07/02/18 04:20 Labs: Abnormal Lab Results - Last 24 Hours (Table) 06/30/18 07/01/18 07/01/18 Range/Units 15:43 12:21 16:57 RBC (4.30-5.90) m/uL Hgb (13.0-17.5) gm/dL Hct (39.0-53.0) % RDW (11.5-15.5) % Plt Count (150-450) k/uL Lymphocytes # (1.0-4.8) k/uL ABG pO2 (83-108) mmHg ABG Total CO2 (19-24) mmol/L ABG O2 Saturation (94-97) % Potassium (3.5-5.1) mmol/L Chloride (98-107) mmol/L BUN (9-20) mg/dL Creatinine (0.66-1.25) mg/dL Glucose (74-99) mg/dL POC Glucose (mg/dL) 133 H 108 H (75-99) mg/dL Calcium (8.4-10.2) mg/dL Complement C3 56.0 L (80.0-207.0) mg/dL Complement C4 9.7 L (10.0-53.0) mg/dL 07/01/18 07/01/18 07/02/18 Range/Units 21:58 23:41 04:19 RBC (4.30-5.90) m/uL Hgb (13.0-17.5) gm/dL Hct (39.0-53.0) % RDW (11.5-15.5) % Plt Count (150-450) k/uL Lymphocytes # (1.0-4.8) k/uL ABG pO2 135 H (83-108) mmHg ABG Total CO2 26 H (19-24) mmol/L ABG O2 Saturation 99.4 H (94-97) % Potassium (3.5-5.1) mmol/L Chloride (98-107) mmol/L BUN (9-20) mg/dL Creatinine (0.66-1.25) mg/dL Glucose (74-99) mg/dL POC Glucose (mg/dL) 132 H 138 H (75-99) mg/dL Calcium (8.4-10.2) mg/dL Complement C3 (80.0-207.0) mg/dL Complement C4 (10.0-53.0) mg/dL 07/02/18 07/02/18 07/02/18 Range/Units 04:20 04:20 04:30 RBC 2.62 L (4.30-5.90) m/uL Hgb 8.5 L (13.0-17.5) gm/dL Hct 26.1 L (39.0-53.0) % RDW 20.0 H (11.5-15.5) % Plt Count 38 L (150-450) k/uL Lymphocytes # 0.9 L (1.0-4.8) k/uL ABG pO2 (83-108) mmHg ABG Total CO2 (19-24) mmol/L ABG O2 Saturation (94-97) % Potassium 3.2 L (3.5-5.1) mmol/L Chloride 113 H (98-107) mmol/L BUN 95 H (9-20) mg/dL Creatinine 5.78 H (0.66-1.25) mg/dL Glucose 114 H (74-99) mg/dL POC Glucose (mg/dL) 136 H (75-99) mg/dL Calcium 5.0 L* (8.4-10.2) mg/dL Complement C3 (80.0-207.0) mg/dL Complement C4 (10.0-53.0) mg/dL 07/02/18 Range/Units 08:33 RBC (4.30-5.90) m/uL Hgb (13.0-17.5) gm/dL Hct (39.0-53.0) % RDW (11.5-15.5) % Plt Count (150-450) k/uL Lymphocytes # (1.0-4.8) k/uL ABG pO2 (83-108) mmHg ABG Total CO2 (19-24) mmol/L ABG O2 Saturation (94-97) % Potassium (3.5-5.1) mmol/L Chloride (98-107) mmol/L BUN (9-20) mg/dL Creatinine (0.66-1.25) mg/dL Glucose (74-99) mg/dL POC Glucose (mg/dL) 150 H (75-99) mg/dL Calcium (8.4-10.2) mg/dL Complement C3 (80.0-207.0) mg/dL Complement C4 (10.0-53.0) mg/dL Microbiology - Last 24 Hours (Table) 06/29/18 01:56 Blood Culture - Preliminary Blood No Growth after 72 hours 06/30/18 08:51 Urine Culture - Final Urine,Catheterized 06/30/18 13:10 Gram Stain - Preliminary Sputum Sputum Culture - Preliminary Presumptive Staph aureus 06/30/18 08:54 Blood Culture - Preliminary Blood No Growth after 24 hours Chest x-ray: report reviewed Assessment and Plan (1) Thrombocytopenia Narrative/Plan: Admission peripheral blood smear was reviewed, additional slide was requested on today's laboratory specimen. The initial slide did have some fragmented RBCs which appeared to be more related to artifact. The slide from today's laboratory draw showed no significant fragmentation of red blood cells, few crenated cells and toxic granulocytes. TTP is not highly suspected at this time. On chart review mild thrombocytopenia noted intermittently over the last several years. Suspect there is a component of splenic sequestration as well as decreased thrombopoiesis secondary to chronic liver disease. Exacerbation of the thrombocytopenia related to acute illness. LDH was ordered and pending. CBC daily Transfused for platelet count less than 10,000 or if patient is symptomatic Current Visit: Yes Status: Acute Priority: High Code(s): D69.6 - THROMBOCYTOPENIA, UNSPECIFIED SNOMED Code(s): 294679365 (2) Macrocytic anemia Narrative/Plan: Anemia workup ordered. Suspect related to EtOH marrow damage, exacerbated by acute illness. Transfuse for hemoglobin less than 7 or if symptomatic. Current Visit: Yes Status: Acute Priority: Medium Code(s): D53.9 - NUTRITIONAL ANEMIA, UNSPECIFIED SNOMED Code(s): 80073352 Plan: Doctor attests: I performed a history and physical examination of this patient and developed impression and plan with dictator. I agree with dictators note, documented as a scribe.
[2018-07-02] MEDS ORDERED: CALCIUM GLUCONATE 1 GM in SODIUM CHLORIDE 0.9% 100 ML IVPB ONE (11:07)
[2018-07-02] MEDS ORDERED: POTASSIUM BICARBONATE/CIT AC 20 MEQ TABLET.EFF PO ONE (11:15)
--- NOTE | 2018-07-02 11:27 | P.PN ---
Subjective Progress Note Date: 07/02/18 Principal diagnosis: Anemia, history of chronic pancreatitis Patient seen lying in bed intubated and sedated. Reports from nursing of frequent bowel movements with no signs or symptoms GI bleeding. No melena or hematochezia reported. Objective - Vital Signs Vital signs: Vital Signs Temp 96.3 F L 07/02/18 10:00 Pulse 59 L 07/02/18 10:00 Resp 20 07/02/18 10:00 BP 86/55 07/02/18 06:00 Pulse Ox 95 07/02/18 10:00 Intake & Output 07/01/18 07/02/18 07/02/18 18:59 06:59 18:59 Intake Total 2016.041 1189.948 542.915 Output Total 355 390 90 Balance 312.829 2654.948 452.915 Weight 72.5 kg Intake: IV 1087.5 1095 155 Clindamycin 900 mg In 50 50 Dextrose 5% in Water 50 ml @ 50 mls/hr IVPB Q8HR ANTHONY Rx#:[id number] Dextrose 5% in Water 1, 950 975 75 000 ml @ 75 mls/hr IV . [id number] ANTHONY with Sodium Bicarb (1 Meq/ml) 150 ml Rx#:[id number] Levofloxacin 250Mg-D5w 50 Pmx 250 mg In Dextrose/ Water 1 50ml.bag @ 50 mls /hr IVPB Q24H ANTHONY Rx#: [id number] Piperacillin-Tazobactam 3 37.5 .375 gm In Sodium Chloride 0.9% 100 ml @ 25 mls/hr IVPB Q12HR ANTHONY Rx #:[id number] carrier IV .9%NS 120 30 Intake, IV Titration 179.901 67.948 252.915 Amount Clindamycin 900 mg In 50 Dextrose 5% in Water 50 ml @ 50 mls/hr IVPB Q8HR ANTHONY Rx#:[id number] Norepinephrine 32 mg In 79.901 17.948 12.253 Sodium Chloride 0.9% 218 ml @ 0.05 MCG/KG/MIN 1. 617 mls/hr IV .Q24H ANTHONY Rx#:[id number] Propofol 1,000 mg In 100.00 90.662 Empty Bag 1 bag @ Titrate IV .Q0M ANTHONY Rx#: [id number] Sodium Chloride 0.45% 1, 150 000 ml @ 75 mls/hr IV . [id number] ANTHONY Rx#:[id number] Tube Feeding 330 105 Other 60 30 Output: Urine 355 390 90 Other: Voiding Method Indwelling Catheter Indwelling Catheter # Voids 35 # Bowel Movements 1 ABP, PAP, CO, CI - Last Documented Arterial Blood Pressure 114/50 - Exam On physical examination, patient appears comfortable in no apparent distress. HEAD: Normocephalic, atraumatic. EYES: No scleral icterus. No conjunctival injection. MOUTH: No lesions, tongue midline. NECK: Trachea midline, no gross abnormalities. CHEST: Coarse respiratory noises in all lung yi. HEART: Regular rate and rhythm. ABDOMEN: Soft, obese. Bowel sounds are positive. No organomegaly. No guarding or rigidity. EXTREMITIES: No pedal edema. SKIN: No rashes, no jaundice. NEUROLOGIC: Intubated and sedated. - Labs CBC & Chem 7: 07/02/18 04:20 07/02/18 04:20 Labs: Abnormal Lab Results - Last 24 Hours (Table) 06/30/18 07/01/18 07/01/18 Range/Units 15:43 12:21 16:57 RBC (4.30-5.90) m/uL Hgb (13.0-17.5) gm/dL Hct (39.0-53.0) % RDW (11.5-15.5) % Plt Count (150-450) k/uL Lymphocytes # (1.0-4.8) k/uL ABG pO2 (83-108) mmHg ABG Total CO2 (19-24) mmol/L ABG O2 Saturation (94-97) % Potassium (3.5-5.1) mmol/L Chloride (98-107) mmol/L BUN (9-20) mg/dL Creatinine (0.66-1.25) mg/dL Glucose (74-99) mg/dL POC Glucose (mg/dL) 133 H 108 H (75-99) mg/dL Calcium (8.4-10.2) mg/dL Ionized Calcium Cornelius (4.5-5.3) mg/dL Complement C3 56.0 L (80.0-207.0) mg/dL Complement C4 9.7 L (10.0-53.0) mg/dL 07/01/18 07/01/18 07/02/18 Range/Units 21:58 23:41 04:19 RBC (4.30-5.90) m/uL Hgb (13.0-17.5) gm/dL Hct (39.0-53.0) % RDW (11.5-15.5) % Plt Count (150-450) k/uL Lymphocytes # (1.0-4.8) k/uL ABG pO2 135 H (83-108) mmHg ABG Total CO2 26 H (19-24) mmol/L ABG O2 Saturation 99.4 H (94-97) % Potassium (3.5-5.1) mmol/L Chloride (98-107) mmol/L BUN (9-20) mg/dL Creatinine (0.66-1.25) mg/dL Glucose (74-99) mg/dL POC Glucose (mg/dL) 132 H 138 H (75-99) mg/dL Calcium (8.4-10.2) mg/dL Ionized Calcium Cornelius (4.5-5.3) mg/dL Complement C3 (80.0-207.0) mg/dL Complement C4 (10.0-53.0) mg/dL 07/02/18 07/02/18 07/02/18 Range/Units 04:20 04:20 04:30 RBC 2.62 L (4.30-5.90) m/uL Hgb 8.5 L (13.0-17.5) gm/dL Hct 26.1 L (39.0-53.0) % RDW 20.0 H (11.5-15.5) % Plt Count 38 L (150-450) k/uL Lymphocytes # 0.9 L (1.0-4.8) k/uL ABG pO2 (83-108) mmHg ABG Total CO2 (19-24) mmol/L ABG O2 Saturation (94-97) % Potassium 3.2 L (3.5-5.1) mmol/L Chloride 113 H (98-107) mmol/L BUN 95 H (9-20) mg/dL Creatinine 5.78 H (0.66-1.25) mg/dL Glucose 114 H (74-99) mg/dL POC Glucose (mg/dL) 136 H (75-99) mg/dL Calcium 5.0 L* (8.4-10.2) mg/dL Ionized Calcium Cornelius (4.5-5.3) mg/dL Complement C3 (80.0-207.0) mg/dL Complement C4 (10.0-53.0) mg/dL 07/02/18 07/02/18 Range/Units 08:33 08:35 RBC (4.30-5.90) m/uL Hgb (13.0-17.5) gm/dL Hct (39.0-53.0) % RDW (11.5-15.5) % Plt Count (150-450) k/uL Lymphocytes # (1.0-4.8) k/uL ABG pO2 (83-108) mmHg ABG Total CO2 (19-24) mmol/L ABG O2 Saturation (94-97) % Potassium (3.5-5.1) mmol/L Chloride (98-107) mmol/L BUN (9-20) mg/dL Creatinine (0.66-1.25) mg/dL Glucose (74-99) mg/dL POC Glucose (mg/dL) 150 H (75-99) mg/dL Calcium (8.4-10.2) mg/dL Ionized Calcium Cornelius 3.1 L* (4.5-5.3) mg/dL Complement C3 (80.0-207.0) mg/dL Complement C4 (10.0-53.0) mg/dL Microbiology - Last 24 Hours (Table) 06/30/18 08:54 Blood Culture - Preliminary Blood No Growth after 48 hours 06/30/18 13:10 Gram Stain - Final Sputum Sputum Culture - Final Staphylococcus aureus 06/29/18 01:56 Blood Culture - Preliminary Blood No Growth after 72 hours 06/30/18 08:51 Urine Culture - Final Urine,Catheterized Assessment and Plan (1) Macrocytic anemia Narrative/Plan: Patient with findings of macrocytic anemia on laboratory evaluation. No signs or symptoms of GI bleeding. The patient is having frequent stools with no hematochezia or melena reported. Hemoglobin remained stable at 8.5 from 9.1. Macrocytic indices. Current Visit: Yes Status: Acute Priority: Medium Code(s): D53.9 - NUTRITIONAL ANEMIA, UNSPECIFIED SNOMED Code(s): 65889939 (2) Pancreatitis Narrative/Plan: History of chronic pancreatitis. Current Visit: No Status: Acute Code(s): K85.9 - ACUTE PANCREATITIS, UNSPECIFIED * DO NOT USE * SNOMED Code(s): 76264293 Plan: Continue ICU management Plans for endoscopic intervention at this time Continue to monitor stool output Continue to monitor hemoglobin and hematocrit and transfuse as needed Gastroenterology will continue to follow, thank you for allowing us to participate in the care of the patient
[2018-07-02 11:40] LABS: ABG HCO3 26 mmol/L (21-25); ABG Oxygen Saturation 89.8 % (94-97); ABG PCO2 49 mmHg (35-45); ABG PH 7.34 (7.35-7.45); ABG PO2 62 mmHg (83-108); ABG TCO2 27 mmol/L (19-24)
[2018-07-02 12:07] LABS: Glucose,Whole Blood 113 mg/dL (75-99)
[2018-07-02 12:32] LABS: Anti-DNA, DS unit <1.0 IU/mL; DNA Double-Stranded NEGATIVE (NEGATIVE)
[2018-07-02 12:39] LABS: Reticulocyte % 0.7 % (0.5-2.0)
[2018-07-02] MEDS: LEVOFLOXACIN 250MG-D5W PMX 250 MG in DEXTROSE/WATER 1 50ML.BAG IVPB SCH (13:46)
--- NOTE | 2018-07-02 14:12 | PN ---
PROGRESS NOTE Patient is seen for followup for acute kidney injury. Currently patient is on a very low dose of Levophed. His blood pressure is better. The IV bicarb was discontinued. His Levophed is down to 1 mcg. The patient has been evaluated by Hematology and there is no significant concern for TTP at this time. A repeat peripheral smear has been ordered. The serum creatinine is down a little bit at 5.7 from 5.8 yesterday. The patient's mentation is also slightly better. He has had loose bowel movements. Patient had been tolerating his tube feedings. PHYSICAL EXAMINATION: On examination this morning, patient was sedated. Blood pressure was 130/55, heart rate of about 73 per minute. Patient is afebrile. He remains on the vent. FiO2 is at 30%. EXAMINATION OF THE HEART: S1, S2. EXAMINATION OF THE LUNGS: Decreased breath sounds at bases. Abdomen is soft, nontender. Examination of lower extremities shows 1+ edema bilaterally. TICKET ATTENDANT exam is not done. Mentation is better per nursing staff. LABS: Labs show this morning sodium 145, potassium 3.2, chloride 113, BUN 95, serum creatinine 5.78. Calcium was 5.0. Hemoglobin 8.5 g/dL, platelet count is 38,000. ASSESSMENT: 1. Acute kidney injury, mostly acute tubular necrosis, nonoliguric. Since patient does have hematuria and proteinuria, serologies for GN were sent out as well. So far, GENNA and anti double strand DNA are negative. However, C3 is low at 56 and C4 was site slightly low at 9.7. Other serologies are pending. At this time, I will hold off on proceeding with renal replacement therapy. Renal function is slightly better and patient is nonoliguric. We may need to consider a kidney biopsy down the road if his renal function does not improve, and this is mainly in view of the low complement levels. This could also be nonspecific. GENNA is so far negative. Will check a hepatitis profile and an ANCA level if it was not sent. No significant concern for TTP from Hematology standpoint. 2. Metabolic acidosis, currently off of bicarb drip. 3. Hypokalemia associated with gastrointestinal fluid loss, currently being replaced. 4. Vent dependent respiratory failure mainly acute hypoxic respiratory failure requiring mechanical ventilation. 5. Pneumonia secondary to Staphylococcus aureus. 6. Gastrointestinal bleed, status post 2 units packed RBCs transfusion. No active bleeding noted at this time. 7. Thrombocytopenia, most likely consumptive secondary to underlying infection, being followed by Hematology. PLAN: Continue with IV fluids for now. No need to proceed with renal replacement therapy. Follow up on ANCA levels as well as hepatitis profile. MMODL / IJN: [id number] /
[2018-07-02 14:14] LABS: C-ANCA <1:20 Titer (<1:20); P-ANCA <1:20 Titer (<1:20)
[2018-07-02] MEDS: ceFAZolin IN SWFI 2 GM/20 ML SYRINGE IVP SCH (15:23)
[2018-07-02] MEDS: NOREPINEPHRINE 32 MG in SODIUM CHLORIDE 0.9% 218 ML IV SCH (15:34)
[2018-07-02 16:06] LABS: Glucose,Whole Blood 125 mg/dL (75-99)
[2018-07-02 16:18] LABS: Magnesium 1.6 mg/dL (1.6-2.3); Potassium 3.9 mmol/L (3.5-5.1)
[2018-07-02 20:43] LABS: Hepatitis B Surface AB- Quant 3.5 mIU/mL; Hepatitis C IgG Antibody Non-Reactive (Non-Reactive)
--- NOTE | 2018-07-02 21:42 | P.PN ---
Subjective Progress Note Date: 07/02/18 68-year-old male that has multiple medical troubles that includes alcoholism, COPD and a history of pancreatitis. The patient required ERCP with pancreatic duct stenting after a recent illness. His related that in the week before admission he started to have progressive shortness of breath, he became profoundly weak and consequently did present for evaluation. Patient was noted to have acute blood loss anemia, acute renal failure and developed respiratory failure The patient did not have significant fever and influenza testing was negative and his lactic acid was normal. The patient hour developed progressive respiratory failure and is now required intubation with sedation and mechanical ventilation. Further information does come from the chart. 07/02/2018 patient remains intubated sedated and mechanically ventilated. Appears to be comfortable and is hematologically stable but still on vasopressor therapy. Objective - Vital Signs Vital signs: Vital Signs Temp 97.1 F L 07/02/18 16:00 Pulse 62 07/02/18 20:03 Resp 20 07/02/18 18:00 BP 86/55 07/02/18 16:00 Pulse Ox 97 07/02/18 18:00 Intake & Output 07/02/18 07/02/18 07/03/18 06:59 18:59 06:59 Intake Total 4084.826 6178.545 170 Output Total 390 332 100 Balance 1926.686 5569.545 70 Weight 72.8 kg Intake: IV 1095 760 170 Clindamycin 900 mg In 50 Dextrose 5% in Water 50 ml @ 50 mls/hr IVPB Q8HR ANTHONY Rx#:[id number] Dextrose 5% in Water 1, 975 75 000 ml @ 75 mls/hr IV . [id number] ANTHONY with Sodium Bicarb (1 Meq/ml) 150 ml Rx#:[id number] Sodium Chloride 0.45% 1, 525 150 000 ml @ 75 mls/hr IV . [id number] ANTHONY Rx#:[id number] carrier IV .9%NS 120 110 20 Intake, IV Titration 67.948 500.545 Amount Calcium Gluconate 1 gm In 100 Sodium Chloride 0.9% 100 ml @ 100 mls/hr IVPB ONCE ONE Rx#:[id number] Clindamycin 900 mg In 50 50 Dextrose 5% in Water 50 ml @ 50 mls/hr IVPB Q8HR ANTHONY Rx#:[id number] Norepinephrine 32 mg In 17.948 22.550 Sodium Chloride 0.9% 218 ml @ 0.05 MCG/KG/MIN 1. 617 mls/hr IV .Q24H ANTHONY Rx#:[id number] Propofol 1,000 mg In 177.995 Empty Bag 1 bag @ Titrate IV .Q0M ANTHONY Rx#: [id number] Sodium Chloride 0.45% 1, 150 000 ml @ 75 mls/hr IV . [id number] ANTHONY Rx#:[id number] Tube Feeding 330 390 Other 60 60 Output: Urine 390 332 100 Other: Voiding Method Indwelling Catheter Indwelling Catheter # Voids 35 # Bowel Movements 1 ABP, PAP, CO, CI - Last Documented Arterial Blood Pressure 116/47 - Exam 68-year-old male who is intubated sedated and mechanically ventilated and has a normal body weight HEENT: Anicteric conjunctiva are pink and moist nasal mucosa grossly intact with out significant lesions, no lesions are noted around the endotracheal tube and no thrush was seen Neck: The neck is not rigid without significant lymphadenopathy or thyromegaly. Lungs: Symmetrical bilateral air entry with coarse crackles throughout the lung yi Heart: Irregular with an audible S4no fever murmur click or rub PMI nondisplaced Abdomen: Positive bowel sounds soft without palpable masses or organomegaly. There was no rigidity Extremities: The upper extremities have excellent pulses they are symmetric, no significant petechiae or telangiectasia. No splinter hemorrhages were noted. Lower extremities have some trace edema no significant open ulcerations are seen Neuro: Intubated sedated and mechanically ventilated - Labs CBC & Chem 7: 07/02/18 04:20 07/02/18 15:59 Labs: Abnormal Lab Results - Last 24 Hours (Table) 06/30/18 07/01/18 07/01/18 Range/Units 15:43 21:58 23:41 RBC (4.30-5.90) m/uL Hgb (13.0-17.5) gm/dL Hct (39.0-53.0) % RDW (11.5-15.5) % Plt Count (150-450) k/uL Lymphocytes # (1.0-4.8) k/uL ABG pH (7.35-7.45) ABG pCO2 (35-45) mmHg ABG pO2 (83-108) mmHg ABG HCO3 (21-25) mmol/L ABG Total CO2 (19-24) mmol/L ABG O2 Saturation (94-97) % Potassium (3.5-5.1) mmol/L Chloride (98-107) mmol/L BUN (9-20) mg/dL Creatinine (0.66-1.25) mg/dL Glucose (74-99) mg/dL POC Glucose (mg/dL) 132 H 138 H (75-99) mg/dL Calcium (8.4-10.2) mg/dL Ionized Calcium Cornelius (4.5-5.3) mg/dL Iron (65-175) ug/dL TIBC (228-460) ug/dL Complement C3 56.0 L (80.0-207.0) mg/dL Complement C4 9.7 L (10.0-53.0) mg/dL 07/02/18 07/02/18 07/02/18 Range/Units 04:19 04:20 04:20 RBC 2.62 L (4.30-5.90) m/uL Hgb 8.5 L (13.0-17.5) gm/dL Hct 26.1 L (39.0-53.0) % RDW 20.0 H (11.5-15.5) % Plt Count 38 L (150-450) k/uL Lymphocytes # 0.9 L (1.0-4.8) k/uL ABG pH (7.35-7.45) ABG pCO2 (35-45) mmHg ABG pO2 135 H (83-108) mmHg ABG HCO3 (21-25) mmol/L ABG Total CO2 26 H (19-24) mmol/L ABG O2 Saturation 99.4 H (94-97) % Potassium 3.2 L (3.5-5.1) mmol/L Chloride 113 H (98-107) mmol/L BUN 95 H (9-20) mg/dL Creatinine 5.78 H (0.66-1.25) mg/dL Glucose 114 H (74-99) mg/dL POC Glucose (mg/dL) (75-99) mg/dL Calcium 5.0 L* (8.4-10.2) mg/dL Ionized Calcium Cornelius (4.5-5.3) mg/dL Iron (65-175) ug/dL TIBC (228-460) ug/dL Complement C3 (80.0-207.0) mg/dL Complement C4 (10.0-53.0) mg/dL 07/02/18 07/02/18 07/02/18 Range/Units 04:30 08:33 08:35 RBC (4.30-5.90) m/uL Hgb (13.0-17.5) gm/dL Hct (39.0-53.0) % RDW (11.5-15.5) % Plt Count (150-450) k/uL Lymphocytes # (1.0-4.8) k/uL ABG pH (7.35-7.45) ABG pCO2 (35-45) mmHg ABG pO2 (83-108) mmHg ABG HCO3 (21-25) mmol/L ABG Total CO2 (19-24) mmol/L ABG O2 Saturation (94-97) % Potassium (3.5-5.1) mmol/L Chloride (98-107) mmol/L BUN (9-20) mg/dL Creatinine (0.66-1.25) mg/dL Glucose (74-99) mg/dL POC Glucose (mg/dL) 136 H 150 H (75-99) mg/dL Calcium (8.4-10.2) mg/dL Ionized Calcium Cornelius 3.1 L* (4.5-5.3) mg/dL Iron (65-175) ug/dL TIBC (228-460) ug/dL Complement C3 (80.0-207.0) mg/dL Complement C4 (10.0-53.0) mg/dL 07/02/18 07/02/18 07/02/18 Range/Units 11:36 11:55 12:08 RBC (4.30-5.90) m/uL Hgb (13.0-17.5) gm/dL Hct (39.0-53.0) % RDW (11.5-15.5) % Plt Count (150-450) k/uL Lymphocytes # (1.0-4.8) k/uL ABG pH 7.34 L (7.35-7.45) ABG pCO2 49 H (35-45) mmHg ABG pO2 62 L (83-108) mmHg ABG HCO3 26 H (21-25) mmol/L ABG Total CO2 27 H (19-24) mmol/L ABG O2 Saturation 89.8 L (94-97) % Potassium (3.5-5.1) mmol/L Chloride (98-107) mmol/L BUN (9-20) mg/dL Creatinine (0.66-1.25) mg/dL Glucose (74-99) mg/dL POC Glucose (mg/dL) 113 H (75-99) mg/dL Calcium (8.4-10.2) mg/dL Ionized Calcium Cornelius (4.5-5.3) mg/dL Iron 52 L (65-175) ug/dL TIBC 200 L (228-460) ug/dL Complement C3 (80.0-207.0) mg/dL Complement C4 (10.0-53.0) mg/dL 07/02/18 Range/Units 15:53 RBC (4.30-5.90) m/uL Hgb (13.0-17.5) gm/dL Hct (39.0-53.0) % RDW (11.5-15.5) % Plt Count (150-450) k/uL Lymphocytes # (1.0-4.8) k/uL ABG pH (7.35-7.45) ABG pCO2 (35-45) mmHg ABG pO2 (83-108) mmHg ABG HCO3 (21-25) mmol/L ABG Total CO2 (19-24) mmol/L ABG O2 Saturation (94-97) % Potassium (3.5-5.1) mmol/L Chloride (98-107) mmol/L BUN (9-20) mg/dL Creatinine (0.66-1.25) mg/dL Glucose (74-99) mg/dL POC Glucose (mg/dL) 125 H (75-99) mg/dL Calcium (8.4-10.2) mg/dL Ionized Calcium Cornelius (4.5-5.3) mg/dL Iron (65-175) ug/dL TIBC (228-460) ug/dL Complement C3 (80.0-207.0) mg/dL Complement C4 (10.0-53.0) mg/dL Microbiology - Last 24 Hours (Table) 06/30/18 08:54 Blood Culture - Preliminary Blood No Growth after 48 hours 06/30/18 13:10 Gram Stain - Final Sputum Sputum Culture - Final Staphylococcus aureus 06/29/18 01:56 Blood Culture - Preliminary Blood No Growth after 72 hours 06/30/18 08:51 Urine Culture - Final Urine,Catheterized Laboratory Results WBC 9.3 k/uL (3.8-10.6) 07/02/18 04:20 RBC 2.62 m/uL (4.30-5.90) L 07/02/18 04:20 Hgb 8.5 gm/dL (13.0-17.5) L 07/02/18 04:20 Hct 26.1 % (39.0-53.0) L 07/02/18 04:20 MCV 99.6 fL (80.0-100.0) 07/02/18 04:20 MCH 32.4 pg (25.0-35.0) 07/02/18 04:20 MCHC 32.5 g/dL (31.0-37.0) 07/02/18 04:20 RDW 20.0 % (11.5-15.5) H 07/02/18 04:20 Plt Count 38 k/uL (150-450) L 07/02/18 04:20 Neutrophils % 81 % 07/02/18 04:20 Neutrophils % (Manual) 78 % 06/30/18 07:48 Band Neutrophils % 8 % 06/30/18 07:48 Lymphocytes % 10 % 07/02/18 04:20 Lymphocytes % (Manual) 8 % 06/30/18 07:48 Monocytes % 6 % 07/02/18 04:20 Monocytes % (Manual) 4 % 06/30/18 07:48 Eosinophils % 2 % 07/02/18 04:20 Basophils % 0 % 07/02/18 04:20 Metamyelocytes % 2 % 06/30/18 07:48 Myelocytes % 1 % 06/30/18 07:48 Neutrophils # 7.5 k/uL (1.3-7.7) 07/02/18 04:20 Neutrophils # (Manual) 13.30 k/uL (1.3-7.7) H 06/30/18 07:48 Lymphocytes # 0.9 k/uL (1.0-4.8) L 07/02/18 04:20 Lymphocytes # (Manual) 1.24 k/uL (1.0-4.8) 06/30/18 07:48 Monocytes # 0.6 k/uL (0-1.0) 07/02/18 04:20 Monocytes # (Manual) 0.62 k/uL (0-1.0) 06/30/18 07:48 Eosinophils # 0.2 k/uL (0-0.7) 07/02/18 04:20 Basophils # 0.0 k/uL (0-0.2) 07/02/18 04:20 Metamyelocytes # (Man) 0.31 k/uL (0) H 06/30/18 07:48 Myelocytes # (Manual) 0.16 k/uL (0) H 06/30/18 07:48 Nucleated RBCs 0 /100 WBC (0-0) 06/30/18 07:48 Manual Slide Review Performed 06/30/18 07:48 Toxic Granulation Present 06/30/18 07:48 Large Platelets Present 06/30/18 07:48 Hypochromasia Slight 07/01/18 05:15 Poikilocytosis Slight 07/02/18 04:20 Poikilocytosis (manual Present 06/30/18 07:48 Anisocytosis Moderate 07/02/18 04:20 Macrocytosis Moderate 07/02/18 04:20 Retic Count 0.7 % (0.5-2.0) 07/02/18 12:08 PT 10.5 sec (9.0-12.0) 06/29/18 01:56 INR 1.0 (<1.2) 06/29/18 01:56 APTT 31.8 sec (22.0-30.0) H 06/29/18 01:56 Sample Site poy sippi 07/02/18 11:36 ABG pH 7.34 (7.35-7.45) L 07/02/18 11:36 ABG pCO2 49 mmHg (35-45) H 07/02/18 11:36 ABG pO2 62 mmHg (83-108) L 07/02/18 11:36 ABG HCO3 26 mmol/L (21-25) H 07/02/18 11:36 ABG Total CO2 27 mmol/L (19-24) H 07/02/18 11:36 ABG O2 Saturation 89.8 % (94-97) L 07/02/18 11:36 ABG Base Excess 0.0 mmol/L 07/02/18 11:36 Andreas Test no 07/02/18 11:36 FiO2 30 % 07/02/18 11:36 Sodium 145 mmol/L (137-145) 07/02/18 04:20 Potassium 3.9 mmol/L (3.5-5.1) 07/02/18 15:59 Chloride 113 mmol/L (98-107) H 07/02/18 04:20 Carbon Dioxide 23 mmol/L (22-30) 07/02/18 04:20 Anion Gap 9 mmol/L 07/02/18 04:20 BUN 95 mg/dL (9-20) H 07/02/18 04:20 Creatinine 5.78 mg/dL (0.66-1.25) H 07/02/18 04:20 Est GFR (CKD-EPI)AfAm 11 (>60 ml/min/1.73 sqM) 07/02/18 04:20 Est GFR (CKD-EPI)NonAf 9 (>60 ml/min/1.73 sqM) 07/02/18 04:20 Glucose 114 mg/dL (74-99) H 07/02/18 04:20 POC Glucose (mg/dL) 125 mg/dL (75-99) H 07/02/18 15:53 POC Glu [employer] ID Samira 07/02/18 15:53 Osmolality 340 mosm/kg (280-301) H* 06/30/18 07:48 Plasma Lactic Acid Fred <0.5 mmol/L (0.7-2.0) L 06/30/18 08:57 Calcium 5.0 mg/dL (8.4-10.2) L* 07/02/18 04:20 Ionized Calcium Cornelius 3.1 mg/dL (4.5-5.3) L* 07/02/18 08:35 Phosphorus 6.6 mg/dL (2.5-4.5) H 07/01/18 05:15 Magnesium 1.6 mg/dL (1.6-2.3) 07/02/18 15:59 Iron 52 ug/dL (65-175) L 07/02/18 12:08 TIBC 200 ug/dL (228-460) L 07/02/18 12:08 Iron Saturation 26.00 (15.00-50.00) 07/02/18 12:08 Ferritin 76.9 ng/mL (22.0-322.0) 07/02/18 12:08 Total Bilirubin 0.3 mg/dL (0.2-1.3) 06/29/18 01:56 AST 55 U/L (17-59) 06/29/18 01:56 ALT 55 U/L (21-72) 06/29/18 01:56 Alkaline Phosphatase 109 U/L (38-126) 06/29/18 01:56 Lactate Dehydrogenase 563 U/L (313-618) 07/02/18 04:20 Troponin I <0.012 ng/mL (0.000-0.034) 06/30/18 07:48 Total Protein 5.1 g/dL (6.3-8.2) L 06/29/18 01:56 Albumin 2.6 g/dL (3.5-5.0) L 06/29/18 01:56 Amylase 31 U/L (30-110) 07/01/18 06:15 Lipase 127 U/L (23-300) 07/01/18 06:15 Vitamin B12 757.0 pg/mL (200.0-944.0) 07/02/18 12:08 TSH 8.700 mIU/L (0.465-4.680) H 06/29/18 01:56 Free T4 0.47 ng/dL (0.78-2.19) L 06/29/18 01:56 Cortisol 16 ug/dL 07/01/18 06:15 Urine Color Yellow 06/29/18 06:22 Urine Appearance Cloudy (Clear) 06/29/18 06:22 Urine pH 5.5 (5.0-8.0) 06/29/18 06:22 Ur Specific [place] 1.015 (1.001-1.035) 06/29/18 06:22 Urine Protein 2+ (Negative) H 06/29/18 06:22 Urine Glucose (UA) Negative (Negative) 06/29/18 06:22 Urine Ketones Negative (Negative) 06/29/18 06:22 Urine Blood Moderate (Negative) H 06/29/18 06:22 Urine Nitrite Negative (Negative) 06/29/18 06:22 Urine Bilirubin Negative (Negative) 06/29/18 06:22 Urine Urobilinogen <2.0 mg/dL (<2.0) 06/29/18 06:22 Ur Leukocyte Esterase Moderate (Negative) H 06/29/18 06:22 Urine RBC 56 /hpf (0-5) H 06/29/18 06:22 Urine WBC 26 /hpf (0-5) H 06/29/18 06:22 Ur Squamous Epith Cells <1 /hpf (0-4) 06/29/18 06:22 Urine Mucus Rare /hpf (None) H 06/29/18 06:22 Stool Occult Blood Positive (Negative) 06/29/18 04:16 GENNA Screen NEGATIVE (NEGATIVE) 06/30/18 15:43 c-ANCA <1:20 Titer (<1:20) 06/30/18 07:48 p-ANCA <1:20 Titer (<1:20) 06/30/18 07:48 Double Strand DNA Ab NEGATIVE (NEGATIVE) 06/30/18 15:43 Anti-DNA Ab Interp <1.0 IU/mL 06/30/18 15:43 Complement C3 56.0 mg/dL (80.0-207.0) L 06/30/18 15:43 Complement C4 9.7 mg/dL (10.0-53.0) L 06/30/18 15:43 C. difficile (EIA) Intrp Negative (Negative) 07/02/18 04:15 Hep Bs Antigen Non-Reactive (Non-Reactive) 07/02/18 04:20 Hep Bs Antibody Non-Reactive (Non-Reactive) 07/02/18 04:20 Hep Bs Antibody, Quant 3.5 mIU/mL 07/02/18 04:20 Hep C IgG Ab Non-Reactive (Non-Reactive) 07/02/18 04:20 Influenza Type A RNA Not Detected (Not Detectd) 06/30/18 07:50 Influenza Type B (PCR) Not Detected (Not Detectd) 06/30/18 07:50 Blood Type A Positive 06/29/18 03:30 Blood Type Recheck No 06/29/18 03:30 Antibody Screen NEGATIVE 06/29/18 03:30 Crossmatch See Detail 06/29/18 03:30 Spec Expiration Date 07/02/2018 - 2356 06/29/18 03:30 Microbiology 06/30/18 08:54 Blood Blood Culture - Preliminary No Growth after 48 hours 06/30/18 13:10 Sputum Gram Stain - Final 06/30/18 13:10 Sputum Sputum Culture - Final Staphylococcus aureus 06/29/18 01:56 Blood Blood Culture - Preliminary No Growth after 72 hours 06/30/18 08:51 Urine,Catheterized Urine Culture - Final 06/29/18 06:22 Urine,Catheterized Urine Culture - Final - Imaging and Cardiology Chest x-ray: image reviewed (Right lower lobe infiltrate) Assessment and Plan (1) MUMTAZ (acute kidney injury) Current Visit: Yes Status: Acute Code(s): N17.9 - ACUTE KIDNEY FAILURE, UNSPECIFIED SNOMED Code(s): 72355892 (2) Acute blood loss anemia Current Visit: Yes Status: Acute Code(s): D62 - ACUTE POSTHEMORRHAGIC ANEMIA SNOMED Code(s): 955089690 (3) Staphylococcus aureus pneumonia Narrative/Plan: 68 year old male that has multiple medical troubles including a hist ory of pancreatitis requiring biliary stent. At this time he has developed respiratory failure as well as acute renal failure and blood loss anemia. The patient has been intubated and is mechanically ventilated. Sputum is showing evidence of a staphylococcal infection in is unknown at this point in time if this is MRSA. Consequently antibiotic therapy is enhanced by adding clindamycin intravenously. Vancomycin was avoided given his acute renal failure and avoidance of any other nephrotoxins. He is on Levophed consequently Zyvox is not possible Ceftaroline not available. Final culture result will help determine final choice of antibiotic therapy. With his chronic liver disease he is noticed to have thrombocytopenia which is likely worsened because of the current sepsis from his pneumonia. Blood cultures were negative so far. Influenza was negative. He did have relative hypothermia and a bear hugger is in place, this is concerning given his sepsis. 07/02/2018 patient remains intubated sedated and mechanically ventilated and has evidence of MSSA infection. Consider clindamycin is discontinued. High-dose of Ancef is added dose appropriate for his current renal failure. Does appear to have some improvement of his status. His oxygen requirements have improved. He does have nonoliguric renal failure there's been some improvement of his creatinine. He is on less vasopressor therapy. He has not with evidence of acute bleeding. Has been seen by hematology and appears that there is bone marrow effect from his alcohol use with thrombocytopenia and anemia. No need for transfusions at this time. Current Visit: Yes Status: Acute Code(s): J15.211 - PNEUMONIA DUE TO METHICILLIN SUSCEP STAPH SNOMED Code(s): 189090769
[2018-07-02 23:08] LABS: Glucose,Whole Blood 144 mg/dL (75-99)
[2018-07-03 00:03] LABS: Glucose,Whole Blood 124 mg/dL (75-99)
[2018-07-03] MEDS: PROPOFOL 1,000 MG in EMPTY BAG 1 BAG IV SCH ×2 (00:59→02:06)
[2018-07-03] MEDS: INSULIN ASPART (NovoLOG) 100 UNIT/ML VIAL SQ SCH ×6 (00:59→21:05)
[2018-07-03] MEDS: IPRATROPIUM-ALBUTEROL 3 ML NEB INHALATION SCH ×6 (03:12→23:17)
[2018-07-03 04:12] LABS: Glucose,Whole Blood 90 mg/dL (75-99)
[2018-07-03 05:34] LABS: ABG Base Excess -1.3 mmol/L; ABG HCO3 24 mmol/L (21-25); ABG Oxygen Saturation 96.7 % (94-97); ABG PCO2 38 mmHg (35-45); ABG PO2 83 mmHg (83-108); ABG TCO2 25 mmol/L (19-24)
[2018-07-03 05:38] LABS: Potassium 3.8 mmol/L (3.5-5.1)
[2018-07-03 05:45] LABS: Anisocytosis Slight; Basophils % (A) 0 %; Eosinophils # (A) 0.2 k/uL (0-0.7); Eosinophils % (A) 3 %; HCT 22.3 % (39.0-53.0); HGB 7.5 gm/dL (13.0-17.5); Lymphocytes % (A) 11 %; MCH 33.2 pg (25.0-35.0); MCHC 33.6 g/dL (31.0-37.0); MCV 98.8 fL (80.0-100.0); Macrocytosis Slight; Mean Platelet Volume 11.2; Monocytes # (A) 0.5 k/uL (0-1.0); Monocytes % (A) 6 %; Neutrophils # (A) 7.2 k/uL (1.3-7.7); Neutrophils % (A) 80 %; Platelet Count 32 k/uL (150-450); RBC 2.26 m/uL (4.30-5.90); RDW 19.9 % (11.5-15.5)
[2018-07-03 05:49] LABS: Calcium 5.1 mg/dL (8.4-10.2)
[2018-07-03] MEDS: LEVOTHYROXINE 100 MCG TAB PO SCH (07:00)
[2018-07-03] MEDS ORDERED: CALCIUM GLUCONATE 2 GM in SODIUM CHLORIDE 0.9% 100 ML IVPB ONE (07:30)
--- NOTE | 2018-07-03 07:42 | XR ---
EXAMINATION TYPE: XR chest 1V portable DATE OF EXAM: 07/03/2018 COMPARISON: 07/02/2018 HISTORY: Shortness of breath TECHNIQUE: Single frontal view of the chest is obtained. FINDINGS: An endotracheal tube and orogastric tube are stable in appearance. There is cardiomegaly. There is bibasilar opacity. Upper lungs are clear without pneumothorax. Osseous structures are demine ralized. There is partial visualization of healing or healed fracture left proximal humerus. IMPRESSION: 1. Stable findings with bilateral consolidation and pleural effusion correlate for pneumonia versus C HF.
[2018-07-03 08:22] LABS: Glucose,Whole Blood 136 mg/dL (75-99)
[2018-07-03 08:51] LABS: ABG Base Excess -3.4 mmol/L; ABG HCO3 22 mmol/L (21-25); ABG Oxygen Saturation 96.3 % (94-97); ABG PCO2 42 mmHg (35-45); ABG PH 7.34 (7.35-7.45); ABG PO2 87 mmHg (83-108); ABG TCO2 24 mmol/L (19-24)
[2018-07-03] MEDS: SODIUM BICARBONATE TAB 650 MG TAB PO SCH (09:12)
[2018-07-03] MEDS: PANTOPRAZOLE 40 MG/10 ML VIAL IVP SCH ×2 (09:12→20:59)
[2018-07-03] MEDS: CHLORHEXIDINE GLUCONATE 15 ML CUP MUCOUS MEM SCH (09:12)
--- NOTE | 2018-07-03 09:20 | P.PN ---
Subjective This is a pleasant 68 years old male with past medical history of hypertension and pancreatitis, status post ERCP and bile duct stent with cholecystitis, alcohol abuse. Presents because of dyspnea of one week duration getting worsened over the last 3-4 days duration. With no chest pain, no nausea vomiting. The patient says he has a lot of is patent. He has harsh breath sounds that looks like weight. He has bilateral leg swelling. Patient looks tired and weak On admission his hemoglobin is 8.1, platelets 81, WBC 7.7. INR 1.0, sodium 142, creatinine 4.8, baseline creatinine 1.5-2.0. TSH 8.7, free T4 is low at 0.47. Urinalysis suspicious for infection. He is status post 2 units of blood transfusion . Chest x-ray showing mild pulmonary congestion as per radiologist's report. FOBT is positive. EKG shows sinus bradycardia at 59 with QTC is 522. 06/30/2018 patient today become more hypotensive and hypothermic.when I saw the patient early this morning he was more awake however his blood pressure was 98/60s . he developed leukocytosis, his hemoglobin was 9.9,his creatinine went up to 6.3, potassium 5.5, glucose was 129, lactic acid less than 0.5,ABG showing pH of 7.0 patient has been transferred to the intensive care unit, where he got intubated and central line was placed, patient was started on pressors.patient developed probably acute tubular necrosis and acute renal failure secondary to hypotension and septic shock, and nephrology consult has been called. There is air this morning patient was complaining of from chest pressure, cartilage team has been consulted. Troponins were negative. 07/01/2018 Patient remains in the ICU intubated and sedated. His chest x-ray showing pneumonia today which wasn't obvious and the first chest x-ray. His leukocytosis is improved from 15.5 down to 12.7 K. Platelets is trending down 81 down to 59. Sugar controlled. Creatinine slightly improved from 6.3 down to 5.8. His urine output about 30 mL/h. He has low calcium which is replaced. PH 7.3 which is improved from yesterday. INR is 1.0. Influenza is negative. Sputum culture is growing staph aureus. Blood culture no growth after 24 hours. Urine culture is in the process. Discussed the findings with the infectious disease team. He is currently on clindamycin and livofloxacin. Enteric feeding started today through NG tube. He remains on pressors needing 12.5 mics of norepinephrine. Patient remains critically ill. 07/02/2018 Patient remains in the ICU, his needing minimal amount of epinephrine drip, most likely is is going to be stopped today. Patient currently blood pressure is 106/44. Patient remains hypothermic with temperature 90.6 and he is on bear hugg. His culture and sputum is growing staph aureus, with final results are still pending. Patient is currently on clindamycin and Levaquin, recommended by infectious disease specialist. Patient bicarb drip was stopped and remains on oral bicarb. Patient is making about 30 mL per hour and his creatinine is 5.7. He has low calcium which is been replaced. Patient is still intubated, possible sedation holiday. Patient is minimally responsive to tactile and verbal stimuli. Patient has been followed by several consultants including pulmonary/critical care, infectious disease, GI, and cellars supervisor. Patient remains in critical condition 07/03/2018 Patient remains in the ICU, his of pressors currently. Hemodynamically impr oving. His oxygenation status is also improving and they were trying to wean him today. Patient is awake and he is been doing a lot of phlegm and secretions through the section of tube. Patient had hypothermia looks improved over the last 24 hours with no more such episodes. WBC came back to normal and his culture is growing MSSA, infectious disease input is appreciated and they switched his clindamycin to Ancef. His hematological picture which shows some external damage exacerbated by acute illness based upon hematological evaluation. His creatinine is slightly improved 5.7 down to 5.6. His sodium making about 30 mL/h urine output, patient has been followed by several consultants including critical care he units, cellars supervisor, cat scan technologist, test designer. Prognosis remains guarded review of system: Not applicable medication: Albuterol, ceftriaxone, Ancef , levothyroxine, norepinephrine, Protonix, livofloxacin. Objective - Vital Signs Vital signs: Vital Signs Temp 97.5 F L 07/03/18 08:00 Pulse 63 07/03/18 09:00 Resp 16 07/03/18 09:00 BP 110/65 07/03/18 09:00 Pulse Ox 96 07/03/18 09:00 Intake & Output 07/02/18 07/03/18 07/03/18 18:59 06:59 18:59 Intake Total 5858.399 1996.576 405 Output Total 332 405 80 Balance 1397.212 874.576 325 Weight 72.8 kg Intake: IV 760 1020 355 Calcium Gluconate 1 gm In 100 Sodium Chloride 0.9% 100 ml @ 100 mls/hr IVPB ONCE ONE Rx#:[id number] Clindamycin 900 mg In 50 Dextrose 5% in Water 50 ml @ 50 mls/hr IVPB Q8HR [facility] Rx#:[id number] Dextrose 5% in Water 1, 75 000 ml @ 75 mls/hr IV . [id number] [facility] with Sodium Bicarb (1 Meq/ml) 150 ml Rx#:[id number] Sodium Chloride 0.45% 1, 525 900 225 000 ml @ 75 mls/hr IV . [id number] [facility] Rx#:[id number] carrier IV .9%NS 110 120 30 Intake, IV Titration 519.212 59.576 Amount Calcium Gluconate 1 gm In 100 Sodium Chloride 0.9% 100 ml @ 100 mls/hr IVPB ONCE ONE Rx#:[id number] Clindamycin 900 mg In 50 Dextrose 5% in Water 50 ml @ 50 mls/hr IVPB Q8HR [facility] Rx#:[id number] Norepinephrine 32 mg In 22.550 5.737 Sodium Chloride 0.9% 218 ml @ 0.05 MCG/KG/MIN 1. 617 mls/hr IV .Q24H [facility] Rx#:[id number] Propofol 1,000 mg In 196.662 53.839 Empty Bag 1 bag @ Titrate IV .Q0M [facility] Rx#: [id number] Sodium Chloride 0.45% 1, 150 000 ml @ 75 mls/hr IV . [id number] [facility] Rx#:[id number] Oral 150 Tube Feeding 390 50 50 Other 60 Output: Urine 332 405 80 Other: Voiding Method Indwelling Catheter Indwelling Catheter # Bowel Movements 1 ABP, PAP, CO, CI - Last Documented Arterial Blood Pressure 144/58 - Exam -GENERAL: patient is intubated and sedated HEENT: Pupils are round and equally reacting to light. EOMI. No scleral icterus. No conjunctival pallor. Normocephalic, atraumatic. No pharyngeal erythema. No thyromegaly. CARDIOVASCULAR: S1 and S2 present. No murmurs, rubs, or gallops. -PULMONARY: Chest is clear to auscultation, no wheezing . Bilateral course crackles. ABDOMEN: Soft, nontender, nondistended, normoactive bowel sounds. No palpable o rganomegaly. MUSCULOSKELETAL: No joint swelling or deformity. -EXTREMITIES: No cyanosis, clubbing, . Bilateral leg edema NEUROLOGICAL: Gross neurological examination did not reveal any focal deficits. SKIN: No rashes. - Labs CBC & Chem 7: 07/03/18 05:10 07/03/18 05:10 Labs: Abnormal Lab Results - Last 24 Hours (Table) 06/30/18 07/02/18 07/02/18 Range/Units 15:43 08:35 11:36 RBC (4.30-5.90) m/uL Hgb (13.0-17.5) gm/dL Hct (39.0-53.0) % RDW (11.5-15.5) % Plt Count (150-450) k/uL ABG pH 7.34 L (7.35-7.45) ABG pCO2 49 H (35-45) mmHg ABG pO2 62 L (83-108) mmHg ABG HCO3 26 H (21-25) mmol/L ABG Total CO2 27 H (19-24) mmol/L ABG O2 Saturation 89.8 L (94-97) % Chloride (98-107) mmol/L Carbon Dioxide (22-30) mmol/L BUN (9-20) mg/dL Creatinine (0.66-1.25) mg/dL POC Glucose (mg/dL) (75-99) mg/dL Calcium (8.4-10.2) mg/dL Ionized Calcium Cornelius 3.1 L* (4.5-5.3) mg/dL Iron (65-175) ug/dL TIBC (228-460) ug/dL Complement C3 56.0 L (80.0-207.0) mg/dL Complement C4 9.7 L (10.0-53.0) mg/dL 07/02/18 07/02/18 07/02/18 Range/Units 11:55 12:08 15:53 RBC (4.30-5.90) m/uL Hgb (13.0-17.5) gm/dL Hct (39.0-53.0) % RDW (11.5-15.5) % Plt Count (150-450) k/uL ABG pH (7.35-7.45) ABG pCO2 (35-45) mmHg ABG pO2 (83-108) mmHg ABG HCO3 (21-25) mmol/L ABG Total CO2 (19-24) mmol/L ABG O2 Saturation (94-97) % Chloride (98-107) mmol/L Carbon Dioxide (22-30) mmol/L BUN (9-20) mg/dL Creatinine (0.66-1.25) mg/dL POC Glucose (mg/dL) 113 H 125 H (75-99) mg/dL Calcium (8.4-10.2) mg/dL Ionized Calcium Cornelius (4.5-5.3) mg/dL Iron 52 L (65-175) ug/dL TIBC 200 L (228-460) ug/dL Complement C3 (80.0-207.0) mg/dL Complement C4 (10.0-53.0) mg/dL 07/02/18 07/02/18 07/03/18 Range/Units 20:10 23:51 05:10 RBC 2.26 L (4.30-5.90) m/uL Hgb 7.5 L (13.0-17.5) gm/dL Hct 22.3 L (39.0-53.0) % RDW 19.9 H (11.5-15.5) % Plt Count 32 L (150-450) k/uL ABG pH (7.35-7.45) ABG pCO2 (35-45) mmHg ABG pO2 (83-108) mmHg ABG HCO3 (21-25) mmol/L ABG Total CO2 (19-24) mmol/L ABG O2 Saturation (94-97) % Chloride (98-107) mmol/L Carbon Dioxide (22-30) mmol/L BUN (9-20) mg/dL Creatinine (0.66-1.25) mg/dL POC Glucose (mg/dL) 144 H 124 H (75-99) mg/dL Calcium (8.4-10.2) mg/dL Ionized Calcium Cornelius (4.5-5.3) mg/dL Iron (65-175) ug/dL TIBC (228-460) ug/dL Complement C3 (80.0-207.0) mg/dL Complement C4 (10.0-53.0) mg/dL 07/03/18 07/03/18 07/03/18 Range/Units 05:10 05:31 08:10 RBC (4.30-5.90) m/uL Hgb (13.0-17.5) gm/dL Hct (39.0-53.0) % RDW (11.5-15.5) % Plt Count (150-450) k/uL ABG pH (7.35-7.45) ABG pCO2 (35-45) mmHg ABG pO2 (83-108) mmHg ABG HCO3 (21-25) mmol/L ABG Total CO2 25 H (19-24) mmol/L ABG O2 Saturation (94-97) % Chloride 113 H (98-107) mmol/L Carbon Dioxide 21 L (22-30) mmol/L BUN 95 H (9-20) mg/dL Creatinine 5.67 H (0.66-1.25) mg/dL POC Glucose (mg/dL) 136 H (75-99) mg/dL Calcium 5.1 L* (8.4-10.2) mg/dL Ionized Calcium Cornelius (4.5-5.3) mg/dL Iron (65-175) ug/dL TIBC (228-460) ug/dL Complement C3 (80.0-207.0) mg/dL Complement C4 (10.0-53.0) mg/dL 07/03/18 Range/Units 08:50 RBC (4.30-5.90) m/uL Hgb (13.0-17.5) gm/dL Hct (39.0-53.0) % RDW (11.5-15.5) % Plt Count (150-450) k/uL ABG pH 7.34 L (7.35-7.45) ABG pCO2 (35-45) mmHg ABG pO2 (83-108) mmHg ABG HCO3 (21-25) mmol/L ABG Total CO2 (19-24) mmol/L ABG O2 Saturation (94-97) % Chloride (98-107) mmol/L Carbon Dioxide (22-30) mmol/L BUN (9-20) mg/dL Creatinine (0.66-1.25) mg/dL POC Glucose (mg/dL) (75-99) mg/dL Calcium (8.4-10.2) mg/dL Ionized Calcium Cornelius (4.5-5.3) mg/dL Iron (65-175) ug/dL TIBC (228-460) ug/dL Complement C3 (80.0-207.0) mg/dL Complement C4 (10.0-53.0) mg/dL Microbiology - Last 24 Hours (Table) 06/29/18 01:56 Blood Culture - Preliminary Blood No Growth after 96 hours 06/30/18 08:54 Blood Culture - Preliminary Blood No Growth after 48 hours 06/30/18 13:10 Gram Stain - Final Sputum Sputum Culture - Final Staphylococcus aureus Assessment and Plan Assessment: septic shock Metabolic encephalopathy secondary to above metabolic acidosis Fluid overload, with pulmonary congestion, leg swelling. Possible GI bleed Acute blood loss anemia secondary to above Urinary tract infection Acute kidney injury Chronic kidney disease stage III Hypothyroidism Essential hypertension History of pancreatitis History of acute cholecystitis History of bilateral stones status post biliary stent Plan: patient's was sent to the ICU. He got intubated and started on a process. Several consults R following the case including critical/pulmonary care team. Cash Management Associate. Patient was started on clindamycin and levofloxacin for possible urinary tract infection and pneumonia. However infectious disease consult for is appreciated to optimize his antibiotic therapy follow-up culture results. GI and cardiology team R following the case as well.DVT and GI prophylaxis. Monitor labs and vitals. Continue with the current medication. Further recommendations based on the clinical course of the patient Patient is in critical condition and prognosis is guarded
--- NOTE | 2018-07-03 09:36 | PN ---
PROGRESS NOTE DATE OF SERVICE: July 03, 2018 This is a patient who is 68 years of age. The patient has acute respiratory failure with need for mechanical ventilation. The patient was admitted to the hospital on 29 of June and was intubated for respiratory failure on the . The patient has a history of septic shock, likely secondary to pneumonia. His sputum was positive for presumptive Staph aureus. In addition, he has a history of urinary tract infection, acute metabolic acidosis, acute kidney injury, possible GI bleed, hypothyroidism, pancreatitis, and chest pain. Currently, the patient is still on the mechanical ventilator. Yesterday, we did a daily interruption of sedation with a spontaneous breathing trial, but his parameters and his mental status were borderline so we chose not to extubate the patient. Today, he remains on the volume assist-control mode rate of 20, tidal volume 450, FiO2 30%, PEEP of 5. Blood gases show pO2 of 83 and PaCO2 of 38, and pH is 7.40. This is consistent with normoxemia and normal acid-base status. The sputum is positive for Staph. He is getting 0.45 IV at 75 mL an hour, propofol at 20 mcg/kg per minute, 0.9 at 20 mL an hour and Vital high-protein at 50 mL an hour with a goal of 50 mL an hour. The patient appears to be relatively stable at the current time, but is currently sedated. He had an uneventful night according to the nurses. Current vital signs are reviewed. His current temperature is 97.5, heart rate 63, respiratory rate 19, blood pressure 110/65, mean of 80, and saturations are 96%. Appears in no acute distress. He is currently sedated. He has got an orally placed endotracheal tube and NG tube. HEENT examination is grossly unremarkable. NECK: Supple. Full range of motion. No adenopathy or thyromegaly. Neck veins are flat. Cardiovascular examination reveals regular rhythm and rate. S1, S2 normal. No S3, S4, or murmur. Lungs reveal equal breath sounds bilaterally. Breath sounds are diminished throughout. There are a few scattered rhonchi. No wheezes or crackles. Abdomen is soft. Bowel sounds are heard. Extremities are intact. No cyanosis, clubbing, or edema. Skin without rash. Neurologic examination is difficult to assess given the fact that he is currently sedated. Microbiologic study show evidence of Staph aureus. The Staph is found in the sputum. It is oxacillin sensitive and not methicillin-resistant Staph aureus. Labs are reviewed. White count 9, hemoglobin 7.5, hematocrit 22.3, platelet count is 32,000. Sodium 142, potassium 3.8, chloride 113, CO2 is 21. Anion gap is 8. BUN and creatinine were 95 and 5.67. The rest of the labs look okay. His medications are reviewed. He is currently on Ancef, calcium replacement, Levaquin. He has been weaned off the Levophed. The rest of the medications are appropriate. ASSESSMENT: 1. Acute hypoxemic respiratory failure requiring intubation and mechanical ventilation on June 30 for pneumonia secondary to Staphylococcus aureus, oxacillin sensitive. 2. Possible urinary tract infection. 3. Acute metabolic acidosis and hypotension secondary to septic shock. 4. History of acute kidney injury. 5. Gastrointestinal bleed, status post 2 units of PRBCs. 6. Hypothyroidism. 7. History of pancreatitis. 8. Chest discomfort/pain. 9. Thrombocytopenia. PLAN: The patient will get a daily interruption of sedation and spontaneous breathing trial again. Hopefully we will be able to extubate the patient today. The patient's propofol will be discontinued. The Vital high-protein is on hold. The patient's antibiotics have been adjusted. The patient is currently on Ancef and Levaquin. That is more than adequate. Additional recommendations and suggestions are forthcoming. Labs, x-rays and medications are all reviewed. Unnecessary medications were discontinued. We will continue to follow. Prognosis is guarded. CRITICAL CARE TIME: 33 minutes. ENRIQUE / HARPERN: [id number] /
[2018-07-03] MEDS: ceFAZolin IN SWFI 2 GM/20 ML SYRINGE IVP SCH (12:01)
[2018-07-03] MEDS: SODIUM CHLORIDE 0.45% 1,000 ML IV SCH (12:02)
[2018-07-03 12:11] LABS: Glucose,Whole Blood 115 mg/dL (75-99)
--- NOTE | 2018-07-03 14:41 | P.PN ---
Subjective Progress Note Date: 07/03/18 Principal diagnosis: anemia, thrombocytopenia In follow-up today patient is extubated, has a harsh cough, expectorating copious amounts of thick clear sputum, no visible blood in the sputum. Patient denies any bleeding, difficulty in breathing or chest pain, he does have some pleuritic discomfort with deep inspiration, no other pain to report Objective - Vital Signs Vital signs: Vital Signs Temp 98.1 F 07/03/18 12:00 Pulse 70 07/03/18 13:07 Resp 14 07/03/18 12:00 BP 131/79 07/03/18 13:00 Pulse Ox 99 07/03/18 13:00 Intake & Output 07/02/18 07/03/18 07/03/18 18:59 06:59 18:59 Intake Total 9037.739 3457.576 745 Output Total 332 405 190 Balance 1397.212 874.576 555 Weight 72.8 kg Intake: IV 760 1020 695 Calcium Gluconate 1 gm In 100 Sodium Chloride 0.9% 100 ml @ 100 mls/hr IVPB ONCE ONE Rx#:[id number] Clindamycin 900 mg In 50 Dextrose 5% in Water 50 ml @ 50 mls/hr IVPB Q8HR [facility] Rx#:[id number] Dextrose 5% in Water 1, 75 000 ml @ 75 mls/hr IV . [id number] [facility] with Sodium Bicarb (1 Meq/ml) 150 ml Rx#:[id number] Sodium Chloride 0.45% 1, 525 900 525 000 ml @ 75 mls/hr IV . [id number] [facility] Rx#:[id number] carrier IV .9%NS 110 120 70 Intake, IV Titration 519.212 59.576 Amount Calcium Gluconate 1 gm In 100 Sodium Chloride 0.9% 100 ml @ 100 mls/hr IVPB ONCE ONE Rx#:[id number] Clindamycin 900 mg In 50 Dextrose 5% in Water 50 ml @ 50 mls/hr IVPB Q8HR [facility] Rx#:[id number] Norepinephrine 32 mg In 22.550 5.737 Sodium Chloride 0.9% 218 ml @ 0.05 MCG/KG/MIN 1. 617 mls/hr IV .Q24H [facility] Rx#:[id number] Propofol 1,000 mg In 196.662 53.839 Empty Bag 1 bag @ Titrate IV .Q0M [facility] Rx#: [id number] Sodium Chloride 0.45% 1, 150 000 ml @ 75 mls/hr IV . [id number] [facility] Rx#:[id number] Oral 150 Tube Feeding 390 50 50 Other 60 Output: Urine 332 405 190 Other: Voiding Method Indwelling Catheter Indwelling Catheter Indwelling Catheter # Bowel Movements 1 ABP, PAP, CO, CI - Last Documented Arterial Blood Pressure 144/58 - Constitutional General appearance: Present: average body habitus, cooperative, no acute distress - EENT Eyes: Present: anicteric sclerae, EOMI ENT: Present: hearing grossly normal - Respiratory Details: rhonchi inspiratory and expiratory, anterior and posterior - Cardiovascular Rhythm: regular Heart sounds: normal: S1, S2 Abnormal Heart Sounds: Absent: systolic murmur, diastolic murmur, rub, S3 Gallop, S4 Gallop, click, other - Peripheral edema leg Peripheral Edema: bilateral: None - Gastrointestinal General gastrointestinal: Present: normal bowel sounds, soft. Absent: absent scott wel sounds, decreased bowel sounds, distended, hepatomegaly, hyperactive bowel sounds, organomegaly, rigid, scaphoid, splenomegaly, tenderness, umbilical hernia, ventral hernia - Integumentary Integumentary Comment(s): dry skin and scaly plaques on several areas of the face, neck and chest - Musculoskeletal Musculoskeletal: Present: generalized weakness, strength equal bilaterally - Psychiatric Psychiatric Comment(s): Alert, oriented to self and place, patient has lost some time due to sedation, calm and pleasant - Labs CBC & Chem 7: 07/03/18 05:10 07/03/18 05:10 Labs: Abnormal Lab Results - Last 24 Hours (Table) 07/02/18 07/02/18 07/02/18 Range/Units 12:08 12:08 15:53 RBC (4.30-5.90) m/uL Hgb (13.0-17.5) gm/dL Hct (39.0-53.0) % RDW (11.5-15.5) % Plt Count (150-450) k/uL ABG pH (7.35-7.45) ABG Total CO2 (19-24) mmol/L Chloride (98-107) mmol/L Carbon Dioxide (22-30) mmol/L BUN (9-20) mg/dL Creatinine (0.66-1.25) mg/dL POC Glucose (mg/dL) 125 H (75-99) mg/dL Calcium (8.4-10.2) mg/dL Iron 52 L (65-175) ug/dL TIBC 200 L (228-460) ug/dL Erythropoietin 90.45 H (2.00-30.00) mIU/mL 07/02/18 07/02/18 07/03/18 Range/Units 20:10 23:51 05:10 RBC 2.26 L (4.30-5.90) m/uL Hgb 7.5 L (13.0-17.5) gm/dL Hct 22.3 L (39.0-53.0) % RDW 19.9 H (11.5-15.5) % Plt Count 32 L (150-450) k/uL ABG pH (7.35-7.45) ABG Total CO2 (19-24) mmol/L Chloride (98-107) mmol/L Carbon Dioxide (22-30) mmol/L BUN (9-20) mg/dL Creatinine (0.66-1.25) mg/dL POC Glucose (mg/dL) 144 H 124 H (75-99) mg/dL Calcium (8.4-10.2) mg/dL Iron (65-175) ug/dL TIBC (228-460) ug/dL Erythropoietin (2.00-30.00) mIU/mL 07/03/18 07/03/18 07/03/18 Range/Units 05:10 05:31 08:10 RBC (4.30-5.90) m/uL Hgb (13.0-17.5) gm/dL Hct (39.0-53.0) % RDW (11.5-15.5) % Plt Count (150-450) k/uL ABG pH (7.35-7.45) ABG Total CO2 25 H (19-24) mmol/L Chloride 113 H (98-107) mmol/L Carbon Dioxide 21 L (22-30) mmol/L BUN 95 H (9-20) mg/dL Creatinine 5.67 H (0.66-1.25) mg/dL POC Glucose (mg/dL) 136 H (75-99) mg/dL Calcium 5.1 L* (8.4-10.2) mg/dL Iron (65-175) ug/dL TIBC (228-460) ug/dL Erythropoietin (2.00-30.00) mIU/mL 07/03/18 07/03/18 Range/Units 08:50 12:00 RBC (4.30-5.90) m/uL Hgb (13.0-17.5) gm/dL Hct (39.0-53.0) % RDW (11.5-15.5) % Plt Count (150-450) k/uL ABG pH 7.34 L (7.35-7.45) ABG Total CO2 (19-24) mmol/L Chloride (98-107) mmol/L Carbon Dioxide (22-30) mmol/L BUN (9-20) mg/dL Creatinine (0.66-1.25) mg/dL POC Glucose (mg/dL) 115 H (75-99) mg/dL Calcium (8.4-10.2) mg/dL Iron (65-175) ug/dL TIBC (228-460) ug/dL Erythropoietin (2.00-30.00) mIU/mL Microbiology - Last 24 Hours (Table) 06/30/18 08:54 Blood Culture - Preliminary Blood No Growth after 72 hours 06/29/18 01:56 Blood Culture - Preliminary Blood No Growth after 96 hours 06/30/18 13:10 Gram Stain - Final Sputum Sputum Culture - Final Staphylococcus aureus Assessment and Plan (1) Thrombocytopenia Current Visit: Yes Status: Acute Priority: High Code(s): D69.6 - THROMBOCYTOPENIA, UNSPECIFIED SNOMED Code(s): 251710771 (2) Macrocytic anemia Current Visit: Yes Status: Acute Priority: Medium Code(s): D53.9 - NUTRITIONAL ANEMIA, UNSPECIFIED SNOMED Code(s): 83580241 Plan: Hemoglobin and platelet counts continue to trend down, slightly lower today than yesterday. No need for transfusion of either blood product today. Reticulocyte production index is more suggestive of a hyperproliferative anemia, i.e. marrow failure, iron deficiency, renal failure. Patient does have suspect EtOH marrow damage, iron deficiency- ferritin is 76, low iron and TIBC, and acute on chronic kidney disease. Erythropoetin is 3 times upper limit of normal at 90-kidneys trying to respond to anemia, low reticulocyte at 0.7-poor marrow response. Recommendations are reduce/abstinence from ETOH. Supplement with oral iron at t his time due to acute illness. Nephrology working to improve renal function CBC daily
[2018-07-03 15:55] LABS: Glucose,Whole Blood 105 mg/dL (75-99)
--- NOTE | 2018-07-03 19:49 | PN ---
PROGRESS NOTE Patient is seen for followup for acute kidney injury. This morning when patient was seen he was extubated. He was awake, comfortable, carrying on a conversation. Patient is maintained on half-normal saline at 75 mL/hour. He has been off of the Levophed. Calcium was low and this morning patient received 2 grams of calcium gluconate. Urine output has been about 30-40 mL/hour. On examination this morning, blood pressure was 110/65, heart rate of 63 per minute. Patient is afebrile. EXAMINATION OF THE HEART: S1 and S2. EXAMINATION OF LUNGS: Decreased breath sounds at the bases. ABDOMEN: Soft. Examination of lower extremities shows trace edema. POWER DISTRIBUTION ENGINEER exam is grossly intact. Patient is moving all 4 extremities. Labs reveal sodium 142, potassium 3.8, chloride 113, CO2 is 21, BUN 95, serum creatinine 5.67, calcium 5.1. ASSESSMENT: 1. Acute kidney injury, acute tubular necrosis, currently nonoliguric, with concern for possible acute GN, given the low complements. However, all other serologies are negative. Patient's renal function is not worsening. At this time he does not need renal replacement therapy; however, he may need a kidney biopsy prior to discharge. Previous creatinine was 1.5 to 2 mg/dL in 2016 and 2014. 2. Sepsis from pneumonia, maintained on antibiotics. Sputum was positive for Staph aureus. 3. Acute hypoxic respiratory failure from pneumonia and sepsis, currently extubated. 4. Thrombocytopenia from sepsis. Patient is being seen by Hematology, with no suspicion for TTP. 5. 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 However, regarding his acute anemia, the patient has not had any recent active bleed. However, his stool was positive for occult blood and he has been seen by GI this admission. He has not had an endoscopy, and again there has not been any active bleeding noted. Patient was transfused 2 units packed RBCs. I will start him on Aranesp. 6. Chronic kidney disease, stage IIIB. 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 In view of this, I believe patient should have a kidney biopsy done prior to discharge. I will also check a protein/creatinine ratio to quantify the proteinuria. So far serologies are negative, including GENNA, syry-pdbyfz-bohfzayp DNA, p-ANCA and C-ANCA, except for the complements, which are slightly on the lower side. Hepatitis serologies are negative as well. Serum and urine immunofixation has been ordered, currently pending. 7. Hypocalcemia, most likely secondary to underlying nutritional vitamin D deficiency which has become more apparent now after sepsis. A 25-hydroxy vitamin D level has been ordered. Previous level was as low as 5 in 2015. Patient has received IV calcium. He is maintained on oral Tums as well and I will start him on Rocaltrol. The hypocalcemia is also secondary to chronic kidney disease with underlying deficiency of active vitamin D. PTH will be ordered as well. PLAN: Check 25-hydroxy vitamin D. Check PTH level. Check random protein/creatinine ratio. Follow up on serum and urine immunofixation and consider kidney biopsy prior to discharge. No need for renal replacement therapy today. MMODL / IJN: [id number] /
--- NOTE | 2018-07-03 20:17 | P.PN ---
Subjective Progress Note Date: 07/03/18 Principal diagnosis: Anemia, history of chronic pancreatitis The patient is seen lying in bed, extubated this morning. Swallow study has not been performed to this point. The patient has a fecal management system in place with stool output but appears brown, nonbloody and non-melanotic. Objective - Vital Signs Vital signs: Vital Signs Temp 97.2 F L 07/03/18 16:00 Pulse 69 07/03/18 19:18 Resp 20 07/03/18 19:18 BP 113/66 07/03/18 19:00 Pulse Ox 100 07/03/18 19:00 Intake & Output 07/03/18 07/03/18 07/04/18 06:59 18:59 06:59 Intake Total 0654.760 5015 85 Output Total 405 990 40 Balance 874.576 170 45 Weight 72.8 kg Intake: IV 1020 1110 85 Calcium Gluconate 1 gm In 100 Sodium Chloride 0.9% 100 ml @ 100 mls/hr IVPB ONCE ONE Rx#:[id number] Sodium Chloride 0.45% 1, 900 900 75 000 ml @ 75 mls/hr IV . [id number] [facility] Rx#:[id number] carrier IV .9%NS 120 110 10 Intake, IV Titration 59.576 Amount Norepinephrine 32 mg In 5.737 Sodium Chloride 0.9% 218 ml @ 0.05 MCG/KG/MIN 1. 617 mls/hr IV .Q24H [facility] Rx#:[id number] Propofol 1,000 mg In 53.839 Empty Bag 1 bag @ Titrate IV .Q0M [facility] Rx#: [id number] Oral 150 Tube Feeding 50 50 Output: Urine 405 390 40 Stool 600 Other: Voiding Method Indwelling Catheter Indwelling Catheter ABP, PAP, CO, CI - Last Documented Arterial Blood Pressure 144/58 - Exam On physical examination, patient appears comfortable in no apparent distress. HEAD: Normocephalic, atraumatic. EYES: No scleral icterus. No conjunctival injection. MOUTH: No lesions, tongue midline. NECK: Trachea midline, no gross abnormalities. CHEST: Coarse respiratory noises in all lung yi. HEART: Regular rate and rhythm. ABDOMEN: Soft, obese. Bowel sounds are positive. No organomegaly. No guarding or rigidity. EXTREMITIES: No pedal edema. SKIN: No rashes, no jaundice. NEUROLOGIC: Awake and following commands. - Labs CBC & Chem 7: 07/03/18 05:10 07/03/18 05:10 Labs: Abnormal Lab Results - Last 24 Hours (Table) 07/02/18 07/02/18 07/02/18 Range/Units 12:08 12:08 20:10 RBC (4.30-5.90) m/uL Hgb (13.0-17.5) gm/dL Hct (39.0-53.0) % RDW (11.5-15.5) % Plt Count (150-450) k/uL ABG pH (7.35-7.45) ABG Total CO2 (19-24) mmol/L Chloride (98-107) mmol/L Carbon Dioxide (22-30) mmol/L BUN (9-20) mg/dL Creatinine (0.66-1.25) mg/dL POC Glucose (mg/dL) 144 H (75-99) mg/dL Calcium (8.4-10.2) mg/dL Erythropoietin 90.45 H (2.00-30.00) mIU/mL RBC Folate 840 H (280 - 791) ng/mL 07/02/18 07/03/18 07/03/18 Range/Units 23:51 05:10 05:10 RBC 2.26 L (4.30-5.90) m/uL Hgb 7.5 L (13.0-17.5) gm/dL Hct 22.3 L (39.0-53.0) % RDW 19.9 H (11.5-15.5) % Plt Count 32 L (150-450) k/uL ABG pH (7.35-7.45) ABG Total CO2 (19-24) mmol/L Chloride 113 H (98-107) mmol/L Carbon Dioxide 21 L (22-30) mmol/L BUN 95 H (9-20) mg/dL Creatinine 5.67 H (0.66-1.25) mg/dL POC Glucose (mg/dL) 124 H (75-99) mg/dL Calcium 5.1 L* (8.4-10.2) mg/dL Erythropoietin (2.00-30.00) mIU/mL RBC Folate (280 - 791) ng/mL 07/03/18 07/03/18 07/03/18 Range/Units 05:31 08:10 08:50 RBC (4.30-5.90) m/uL Hgb (13.0-17.5) gm/dL Hct (39.0-53.0) % RDW (11.5-15.5) % Plt Count (150-450) k/uL ABG pH 7.34 L (7.35-7.45) ABG Total CO2 25 H (19-24) mmol/L Chloride (98-107) mmol/L Carbon Dioxide (22-30) mmol/L BUN (9-20) mg/dL Creatinine (0.66-1.25) mg/dL POC Glucose (mg/dL) 136 H (75-99) mg/dL Calcium (8.4-10.2) mg/dL Erythropoietin (2.00-30.00) mIU/mL RBC Folate (280 - 791) ng/mL 07/03/18 07/03/18 Range/Units 12:00 15:43 RBC (4.30-5.90) m/uL Hgb (13.0-17.5) gm/dL Hct (39.0-53.0) % RDW (11.5-15.5) % Plt Count (150-450) k/uL ABG pH (7.35-7.45) ABG Total CO2 (19-24) mmol/L Chloride (98-107) mmol/L Carbon Dioxide (22-30) mmol/L BUN (9-20) mg/dL Creatinine (0.66-1.25) mg/dL POC Glucose (mg/dL) 115 H 105 H (75-99) mg/dL Calcium (8.4-10.2) mg/dL Erythropoietin (2.00-30.00) mIU/mL RBC Folate (280 - 791) ng/mL Microbiology - Last 24 Hours (Table) 06/30/18 08:54 Blood Culture - Preliminary Blood No Growth after 72 hours 06/29/18 01:56 Blood Culture - Preliminary Blood No Growth after 96 hours Assessment and Plan (1) Macrocytic anemia Narrative/Plan: Patient with findings of macrocytic anemia on laboratory evaluation. No signs or symptoms of GI bleeding. The patient is having frequent stools with no hematochezia or melena reported. Hemoglobin remained stable. Macrocytic indices. Current Visit: Yes Status: Acute Priority: Medium Code(s): D53.9 - NUTRITIONAL ANEMIA, UNSPECIFIED SNOMED Code(s): 58941526 (2) Pancreatitis Narrative/Plan: History of chronic pancreatitis. Current Visit: No Status: Acute Code(s): K85.9 - ACUTE PANCREATITIS, UNSPECIFIED * DO NOT USE * SNOMED Code(s): 97249190 Plan: Continue ICU management No plans for endoscopic intervention at this time Continue to monitor stool output, testing for Clostridium difficile negative Continue to monitor hemoglobin and hematocrit and transfuse as needed Hematology service following the patient, at this point is felt that the patient's anemia is likely multifactorial secondary to nutritional deficiencies, toxic effect of alcohol, iron deficiency etc. Gastroenterology will continue to follow, thank you for allowing us to participate in the care of the patient
[2018-07-03] MEDS: DARBEPOETIN ALFA 60 MCG/0.3 ML SYRINGE SQ SCH (21:14)
[2018-07-03 21:15] LABS: Glucose,Whole Blood 94 mg/dL (75-99)
[2018-07-03 23:38] LABS: Glucose,Whole Blood 87 mg/dL (75-99)
[2018-07-04] MEDS: SODIUM CHLORIDE 0.45% 1,000 ML IV SCH (02:30)
[2018-07-04] MEDS: INSULIN ASPART (NovoLOG) 100 UNIT/ML VIAL SQ SCH ×6 (03:23→21:48)
[2018-07-04] MEDS: IPRATROPIUM-ALBUTEROL 3 ML NEB INHALATION SCH ×5 (03:52→20:25)
[2018-07-04 05:00] LABS: Glucose,Whole Blood 91 mg/dL (75-99)
[2018-07-04 05:37] LABS: Potassium 2.7 mmol/L (3.5-5.1)
[2018-07-04 05:38] LABS: Calcium 4.4 mg/dL (8.4-10.2)
[2018-07-04 06:50] LABS: Anisocytosis Slight; Basophils % (A) 0 %; Eosinophils # (A) 0.2 k/uL (0-0.7); Eosinophils % (A) 2 %; HCT 23.1 % (39.0-53.0); HGB 7.6 gm/dL (13.0-17.5); Lymphocytes # (A) 0.7 k/uL (1.0-4.8); Lymphocytes % (A) 7 %; MCH 33.4 pg (25.0-35.0); MCHC 32.9 g/dL (31.0-37.0); MCV 101.6 fL (80.0-100.0); Macrocytosis Moderate; Mean Platelet Volume 11.1; Monocytes # (A) 0.4 k/uL (0-1.0); Monocytes % (A) 4 %; Neutrophils # (A) 7.9 k/uL (1.3-7.7); Neutrophils % (A) 86 %; RBC 2.28 m/uL (4.30-5.90); RDW 19.9 % (11.5-15.5); WBC 9.2 k/uL (3.8-10.6)
[2018-07-04] MEDS: LEVOTHYROXINE 100 MCG TAB PO SCH (07:07)
[2018-07-04 07:14] LABS: Platelet Count 40 k/uL (150-450)
--- NOTE | 2018-07-04 07:21 | XR ---
EXAMINATION TYPE: XR chest 1V portable DATE OF EXAM: 07/04/2018 COMPARISON: 07/03/2018 HISTORY: Shortness of breath TECHNIQUE: Single frontal view of the chest is obtained. FINDINGS: An endotracheal tube and orogastric tube have been removed. There is cardiomegaly. There i s bibasilar opacity. Upper lungs are clear without pneumothorax. Osseous structures are demineralized . There is partial visualization of healing or healed fracture left proximal humerus. IMPRESSION: Correlate for CHF otherwise consider pneumonia.
[2018-07-04 07:23] LABS: Magnesium 1.3 mg/dL (1.6-2.3); Potassium 3.2 mmol/L (3.5-5.1)
[2018-07-04] MEDS ORDERED: Potassium Replacement Protocol 1 EACH MISC MISCELLANE PRN (07:58)
[2018-07-04] MEDS ORDERED: CALCIUM GLUCONATE 2 GM in SODIUM CHLORIDE 0.9% 100 ML IVPB ONE (08:00)
[2018-07-04] MEDS ORDERED: POTASSIUM CHLORIDE 20 MEQ in WATER FOR INJECTION 1 100ML.BAG IVPB SCH (08:00)
[2018-07-04] MEDS: MAGNESIUM SULFATE-D5W PMX 1 GM in DEXTROSE/WATER 1 100ML.BAG IVPB SCH ×2 (08:07→10:20)
[2018-07-04 08:45] LABS: Glucose,Whole Blood 84 mg/dL (75-99)
[2018-07-04] MEDS: POTASSIUM CHLORIDE 20 MEQ in WATER FOR INJECTION 1 100ML.BAG IVPB SCH ×2 (08:51→11:05)
[2018-07-04] MEDS: PANTOPRAZOLE 40 MG/10 ML VIAL IVP SCH ×2 (08:52→22:18)
[2018-07-04] MEDS: ceFAZolin IN SWFI 2 GM/20 ML SYRINGE IVP SCH (08:52)
[2018-07-04] MEDS ORDERED: LEVOFLOXACIN 250MG-D5W PMX 250 MG in DEXTROSE/WATER 1 50ML.BAG IVPB SCH (09:00)
--- NOTE | 2018-07-04 09:53 | PN ---
PROGRESS NOTE DATE OF SERVICE: 07/04/2018 This is a 68-year-old male with a history of acute respiratory failure and hypoxemia, requiring intubation and mechanical ventilation. He was actually admitted to the hospital on June 29 and intubated for respiratory failure the next day on the June 30. He was actually extubated yesterday on July 03. He has a history of a septic shock, likely secondary to pneumonia. His sputum was positive for Staph aureus. He also has a history of urinary tract infection, acute metabolic acidosis, acute kidney injury, possible GI bleed, hypothyroidism, pancreatitis, and chest pain. Currently, the patient is on O2 by nasal cannula at 3 L. He is getting an IV of half-normal saline at 75 mL an hour. His C diff studies were negative. He has been having diarrhea and has a fecal management system in place. His Gram stain of the sputum was positive for Staph. His chest x-ray shows some mild fluid overload. Currently, his IV fluids as I mentioned is half-normal saline at 75 mL an hour. We are going to go ahead and pivil the IV. We are going to DC the arterial line and DC the triple-lumen catheter. Will make sure to replace his electrolytes to see if we cannot transfer the patient over to the general medical floor without telemetry. He is awake and alert, doing much better. His night last night according to the nurse was uneventful. Current vital signs are reviewed. Temperature is 97.5, heart rate 82, respiratory rate 12, blood pressure 142/92 mean 108 and 3 L saturation is 96%., 2 L saturation 94%. Appears in no acute distress. HEENT examination is grossly unremarkable. Mucous membranes are moist. Nasal O2 noted. Neck is supple. Full range of motion. No adenopathy or thyromegaly. Neck is otherwise normal. Cardiovascular examination reveals regular rhythm and rate. Heart rate 82. S1, S2 normal. No murmur. Lungs reveal a few scattered rhonchi. Breath sounds are diminished. No crackles. Breath sounds are equal bilaterally. Abdomen is soft. Bowel sounds are heard. Extremities are intact. No cyanosis, clubbing, or edema. Skin reveals very dry skin, almost like he has ichthyosis. No other lesions noted. Neurologic examination is brief but nonfocal. LABS: Reviewed. White count 9.2, hemoglobin 7.6, hematocrit 23.1, platelet count is 40,000. Sodium 145, potassium up to 3.2, chloride is 121, CO2 is 15, anion gap 9, BUN and creatinine were 74 and 0.48. His calcium is 5, his ionized calcium is 3.5, his magnesium is 1.3. His microbiologic studies show evidence of Staph aureus. The Staph is oxacillin sensitive. Off his medications are otherwise reviewed. ASSESSMENT: 1. Acute hypoxemic respiratory failure respiratory good acute hypoxemic respiratory failure requiring intubation and mechanical ventilation on June 30 for pneumonia secondary to oxacillin sensitive Staph aureus, with extubation yesterday on July 03. 2. Possible urinary tract infection. 3. Acute metabolic acidosis and hypotension secondary to septic shock, resolved. 4. History of acute kidney injury. 5. Gastrointestinal bleed, status post 2 units of PRBCs. 6. History of hypothyroidism. 7. History of pancreatitis. 8. Chest discomfort/pain, resolved. 9. Thrombocytopenia. PLAN: The patient was extubated successfully yesterday. He is on O2 at 2 L. Her going to have a Pivil. The patient's art line and triple-lumen will be discontinued. We will replace electrolytes including potassium and magnesium. He can be transferred to the general medical floor. Additional recommendations and suggestions are forthcoming. Prognosis is guarded. And start critical care time on Mr. Enamorado is 31 minutes. MMODL / IJN: [id number] /
[2018-07-04] MEDS: SODIUM BICARBONATE TAB 650 MG TAB PO SCH (11:06)
[2018-07-04 12:02] LABS: Glucose,Whole Blood 99 mg/dL (75-99)
--- NOTE | 2018-07-04 13:05 | P.PN ---
Subjective Progress Note Date: 07/04/18 Principal diagnosis: anemia, thrombocytopenia In follow-up today patient is more alert and able to speak, voice is hoarse, congested cough, expectorating copious amounts of thick clear sputum, no hemoptysis. No fever, nausea, bleeding or pain Objective - Vital Signs Vital signs: Vital Signs Temp 97.5 F L 07/04/18 08:00 Pulse 80 07/04/18 12:42 Resp 20 07/04/18 11:00 BP 135/75 07/04/18 11:00 Pulse Ox 93 L 07/04/18 11:00 Intake & Output 07/03/18 07/04/18 07/04/18 18:59 06:59 18:59 Intake Total 1160 1163 620 Output Total 990 605 195 Balance 170 558 425 Weight 72.8 kg 74.1 kg Intake: IV 1110 1163 620 Arterial line 0.9 33 15 Calcium Gluconate 1 gm In 100 Sodium Chloride 0.9% 100 ml @ 100 mls/hr IVPB ONCE ONE Rx#:[id number] Calcium Gluconate 2 gm In 100 Sodium Chloride 0.9% 100 ml @ 100 mls/hr IVPB ONCE ONE Rx#:[id number] Magnesium Sulfate-D5w Pmx 200 1 gm In Dextrose/Water 1 100ml.bag @ 100 mls/hr IVPB Q1H [facility] Rx#: [id number] Potassium Chloride 20 meq 150 In Water For Injection 1 100ml.bag @ 50 mls/hr IVPB Q2H [facility] Rx#: [id number] Sodium Chloride 0.45% 1, 900 900 95 000 ml @ 75 mls/hr IV . [id number] [facility] Rx#:[id number] carrier IV .9%NS 110 230 60 Tube Feeding 50 Output: Urine 390 605 195 Stool 600 Other: Voiding Method Indwelling Catheter Indwelling Catheter Indwelling Catheter ABP, PAP, CO, CI - Last Documented Arterial Blood Pressure 158/56 - Constitutional General appearance: Present: average body habitus, cooperative, no acute distress - EENT Eyes: Present: EOMI, poor dentition ENT: Present: hearing grossly normal - Respiratory Respiratory: bilateral: rhonchi (R>L), wheezing - Cardiovascular Heart sounds: normal: S1, S2 - Peripheral edema leg Peripheral Edema: bilateral: Trace - Gastrointestinal General gastrointestinal: Present: normal bowel sounds, soft - Musculoskeletal Musculoskeletal: Present: generalized weakness - Psychiatric Psychiatric: Present: A&O x's 3 - Labs CBC & Chem 7: 07/04/18 06:30 07/04/18 06:30 Labs: Abnormal Lab Results - Last 24 Hours (Table) 07/02/18 07/02/18 07/03/18 Range/Units 12:08 12:08 15:43 RBC (4.30-5.90) m/uL Hgb (13.0-17.5) gm/dL Hct (39.0-53.0) % MCV (80.0-100.0) fL RDW (11.5-15.5) % Plt Count (150-450) k/uL Neutrophils # (1.3-7.7) k/uL Lymphocytes # (1.0-4.8) k/uL Potassium (3.5-5.1) mmol/L Chloride (98-107) mmol/L Carbon Dioxide (22-30) mmol/L BUN (9-20) mg/dL Creatinine (0.66-1.25) mg/dL Glucose (74-99) mg/dL POC Glucose (mg/dL) 105 H (75-99) mg/dL Calcium (8.4-10.2) mg/dL Ionized Calcium Cornelius (4.5-5.3) mg/dL Magnesium (1.6-2.3) mg/dL Erythropoietin 90.45 H (2.00-30.00) mIU/mL RBC Folate 840 H (280 - 791) ng/mL U Random Total Protein (<12) mg/dL 07/03/18 07/04/18 07/04/18 Range/Units 22:50 04:50 05:45 RBC (4.30-5.90) m/uL Hgb (13.0-17.5) gm/dL Hct (39.0-53.0) % MCV (80.0-100.0) fL RDW (11.5-15.5) % Plt Count (150-450) k/uL Neutrophils # (1.3-7.7) k/uL Lymphocytes # (1.0-4.8) k/uL Potassium 2.7 L* (3.5-5.1) mmol/L Chloride 124 H (98-107) mmol/L Carbon Dioxide 13 L (22-30) mmol/L BUN 61 H (9-20) mg/dL Creatinine 3.93 H (0.66-1.25) mg/dL Glucose 56 L (74-99) mg/dL POC Glucose (mg/dL) (75-99) mg/dL Calcium 4.4 L* (8.4-10.2) mg/dL Ionized Calcium Cornelius 3.5 L* (4.5-5.3) mg/dL Magnesium (1.6-2.3) mg/dL Erythropoietin (2.00-30.00) mIU/mL RBC Folate (280 - 791) ng/mL U Random Total Protein 89 H (<12) mg/dL 07/04/18 07/04/18 Range/Units 06:30 06:30 RBC 2.28 L (4.30-5.90) m/uL Hgb 7.6 L (13.0-17.5) gm/dL Hct 23.1 L (39.0-53.0) % MCV 101.6 H (80.0-100.0) fL RDW 19.9 H (11.5-15.5) % Plt Count 40 L (150-450) k/uL Neutrophils # 7.9 H (1.3-7.7) k/uL Lymphocytes # 0.7 L (1.0-4.8) k/uL Potassium 3.2 L (3.5-5.1) mmol/L Chloride 121 H (98-107) mmol/L Carbon Dioxide 15 L (22-30) mmol/L BUN 70 H (9-20) mg/dL Creatinine 4.48 H (0.66-1.25) mg/dL Glucose 65 L (74-99) mg/dL POC Glucose (mg/dL) (75-99) mg/dL Calcium 5.0 L* (8.4-10.2) mg/dL Ionized Calcium Cornelius (4.5-5.3) mg/dL Magnesium 1.3 L (1.6-2.3) mg/dL Erythropoietin (2.00-30.00) mIU/mL RBC Folate (280 - 791) ng/mL U Random Total Protein (<12) mg/dL Microbiology - Last 24 Hours (Table) 06/30/18 08:54 Blood Culture - Preliminary Blood No Growth after 96 hours 06/29/18 01:56 Blood Culture - Preliminary Blood No Growth after 120 hours - Imaging and Cardiology Chest x-ray: report reviewed Assessment and Plan (1) Thrombocytopenia Narrative/Plan: Plt stable today at 40,000, LDH WNL. CBC daily. Transfused for platelet count less than 10,000 or if patient is symptomatic. On chart review mild thrombocytopenia noted intermittently over the last several years. 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 Exacerbation of the thrombocytopenia related to acute illness. Anticipate resolution to baseline with treatment of infection Current Visit: Yes Status: Acute Priority: High Code(s): D69.6 - THROMBOCYTOPENIA, UNSPECIFIED SNOMED Code(s): 289472668 (2) Macrocytic anemia Narrative/Plan: Anemia workup showing iron deficiency. Once pt out of intensive care will consider parenteral iron and oral iron at NM. GI notes reviewed. Does not appear to be any plans for endoscopy acutely. Suspect related to EtOH marrow damage, exacerbated by acute illness as contributing factor. Transfuse for hemoglobin less than 7 or if symptomatic. Current Visit: Yes Status: Acute Priority: Medium Code(s): D53.9 - NUTRITIONAL ANEMIA, UNSPECIFIED SNOMED Code(s): 87259090
[2018-07-04] MEDS ORDERED: ERGOCALCIFEROL 50,000 UNIT CAP PO SCH (14:15)
--- NOTE | 2018-07-04 15:47 | PN ---
PROGRESS NOTE Patient is seen for followup for acute kidney injury. His renal function has improved with serum creatinine going down to 4.48. The creatinine of 3.9 was not accurate. It was 5.6 yesterday. Patient has urine output about 40-50 mL an hour. He is currently awake, comfortable. He is not in any acute distress. This morning patient failed his swallowing eval and he had been choking on trying to eat or drink. Therefore, he has not received his oral medications including sodium bicarb. PHYSICAL EXAMINATION: On examination today, blood pressure was 142/92, heart rate of 70 per minute. Patient is afebrile. Examination of the heart, S1, S2. Examination of the lungs, bilateral breath sounds are heard. Decreased breath sounds at bases. Occasional basilar crackles are heard. Abdomen is soft, nontender. Examination of the lower extremities shows no significant edema. PARACHUTE TAPER exam shows patient moving all 4 extremities. LABS: Show sodium 145, potassium 3.2, chloride 121, CO2 is 15, BUN 70, serum creatinine 4.48, hemoglobin 7.6 g/dL. ASSESSMENT: 1. Acute kidney injury, acute tubular necrosis with possibility of underlying chronic GN. Protein creatinine ratio suggests about 1.5 g of proteinuria and complement levels are low. However, all other serologies are negative. Renal function is improving. Patient is not on any nephrotoxic medications. 2. Hypokalemia. We will replace the iron. The patient has had decreased oral intake. He is not maintained on any diuretics. 3. Hypocalcemia secondary to the hyperparathyroidism from CKD as well as primary nutrition vitamin D deficiency. Vitamin D level was quite low at 8.7. The patient is maintained on calcium. I will start him on vitamin D supplementation as well. 4. Metabolic acidosis. The patient is maintained on oral sodium bicarb. However, he is not able to take rolled oral tablets and another swallowing test has been scheduled. In the meantime, we will continue off of medications and if his acidosis is worse, I will start a small amount of IV bicarb. 5. 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 Patient did have proteinuria in 2014 as well. Again, all serologies are negative except for complements, which are slightly on the lower side. 6. Anemia with no active bleeding noted. Currently patient has been transfused packed RBCs. Previously the he is iron replete and the Aranesp was started. The stool was positive for occult blood and the patient has been evaluated by GI with no plans for endoscopy at this time. 7. A sepsis from pneumonia. The sputum was positive for Staph aureus. 8. Thrombocytopenia from sepsis as well as a history of ethanol abuse. 9. Acute hypoxic respiratory failure from pneumonia and sepsis status post extubation plan replace potassium. Start vitamin D in and we may need to start IV bicarb tomorrow depending on the labs. Continue with calcium supplementation. Continue with Aranesp and continue to avoid nephrotoxic medications. MMODL / IJN: [id number] /
[2018-07-04] MEDS: ERGOCALCIFEROL 50,000 UNIT CAP PO SCH (15:50)
--- NOTE | 2018-07-04 15:51 | P.PN ---
Subjective This is a pleasant 68 years old male with past medical history of hypertension and pancreatitis, status post ERCP and bile duct stent with cholecystitis, alcohol abuse. Presents because of dyspnea of one week duration getting worsened over the last 3-4 days duration. With no chest pain, no nausea vomiting. The patient says he has a lot of is patent. He has harsh breath sounds that looks like weight. He has bilateral leg swelling. Patient looks tired and weak On admission his hemoglobin is 8.1, platelets 81, WBC 7.7. INR 1.0, sodium 142, creatinine 4.8, baseline creatinine 1.5-2.0. TSH 8.7, free T4 is low at 0.47. Urinalysis suspicious for infection. He is status post 2 units of blood transfusion . Chest x-ray showing mild pulmonary congestion as per radiologist's report. FOBT is positive. EKG shows sinus bradycardia at 59 with QTC is 522. 06/30/2018 patient today become more hypotensive and hypothermic.when I saw the patient early this morning he was more awake however his blood pressure was 98/60s . he developed leukocytosis, his hemoglobin was 9.9,his creatinine went up to 6.3, potassium 5.5, glucose was 129, lactic acid less than 0.5,ABG showing pH of 7.0 patient has been transferred to the intensive care unit, where he got intubated and central line was placed, patient was started on pressors.patient developed probably acute tubular necrosis and acute renal failure secondary to hypotension and septic shock, and nephrology consult has been called. There is air this morning patient was complaining of from chest pressure, cartilage team has been consulted. Troponins were negative. 07/01/2018 Patient remains in the ICU intubated and sedated. His chest x-ray showing pneumonia today which wasn't obvious and the first chest x-ray. His leukocytosis is improved from 15.5 down to 12.7 K. Platelets is trending down 81 down to 59. Sugar controlled. Creatinine slightly improved from 6.3 down to 5.8. His urine output about 30 mL/h. He has low calcium which is replaced. PH 7.3 which is improved from yesterday. INR is 1.0. Influenza is negative. Sputum culture is growing staph aureus. Blood culture no growth after 24 hours. Urine culture is in the process. Discussed the findings with the infectious disease team. He is currently on clindamycin and livofloxacin. Enteric feeding started today through NG tube. He remains on pressors needing 12.5 mics of norepinephrine. Patient remains critically ill. 07/02/2018 Patient remains in the ICU, his needing minimal amount of epinephrine drip, most likely is is going to be stopped today. Patient currently blood pressure is 106/44. Patient remains hypothermic with temperature 90.6 and he is on bear hugg. His culture and sputum is growing staph aureus, with final results are still pending. Patient is currently on clindamycin and Levaquin, recommended by infectious disease specialist. Patient bicarb drip was stopped and remains on oral bicarb. Patient is making about 30 mL per hour and his creatinine is 5.7. He has low calcium which is been replaced. Patient is still intubated, possible sedation holiday. Patient is minimally responsive to tactile and verbal stimuli. Patient has been followed by several consultants including pulmonary/critical care, infectious disease, GI, and watch supervisor. Patient remains in critical condition 07/03/2018 Patient remains in the ICU, his of pressors currently. Hemodynamically impr oving. His oxygenation status is also improving and they were trying to wean him today. Patient is awake and he is been doing a lot of phlegm and secretions through the section of tube. Patient had hypothermia looks improved over the last 24 hours with no more such episodes. WBC came back to normal and his culture is growing MSSA, infectious disease input is appreciated and they switched his clindamycin to Ancef. His hematological picture which shows some external damage exacerbated by acute illness based upon hematological evaluation. His creatinine is slightly improved 5.7 down to 5.6. His sodium making about 30 mL/h urine output, patient has been followed by several consultants including critical care he units, watch supervisor, typesetting machine operator/tender, game design instructor. Prognosis remains guarded 07/04/2018 Patient remains in the ICU, no more on the pressors. He got extubated. He still dyspneic however improving gradually. Swallow evaluation done today showing patient have some subtle problem and we are going to order a swallow test. His creatinine is improved slightly to 4.4, similar to what he presented with. [employer] team thinking it might be some elements of mammary nephritis versus other and they recommended biopsy prior To discharge. Patient also with proteinuria. His urine output is around 30 mL/h. He remains on antibiotic for staph aureus, MSSA pneumonia review of system: CONSTITUTIONAL: No fever, no malaise, no fatigue. HEENT: No recent visual problems or hearing problems. Denied any sore throat. CARDIOVASCULAR: No orthopnea, PND, no palpitations, no syncope. PULMONARY: No shortness of breath, no cough, no hemoptysis. GASTROINTESTINAL: No diarrhea, no nausea, no vomiting, no abdominal pain. Normoactive bowel sounds. NEUROLOGICAL: No headaches, no weakness, no numbness. HEMATOLOGICAL: Denies any bleeding or petechiae. GENITOURINARY: Denies any burning micturition, frequency, or urgency. MUSCULOSKELETAL/RHEUMATOLOGICAL: Denies any joint pain, swelling, or any muscle pain. ENDOCRINE: Denies any polyuria or polydipsia. medication: Albuterol, ceftriaxone, Ancef , levothyroxine, norepinephrine, Protonix, livofloxacin. Objective - Vital Signs Vital signs: Vital Signs Temp 97.4 F L 07/04/18 12:00 Pulse 99 07/04/18 15:15 Resp 18 07/04/18 15:15 BP 138/85 07/04/18 15:00 Pulse Ox 97 07/04/18 15:00 Intake & Output 07/03/18 07/04/18 07/04/18 18:59 06:59 18:59 Intake Total 1160 1163 723 Output Total 990 605 385 Balance 170 558 338 Weight 72.8 kg 74.1 kg Intake: IV 1110 1163 723 Arterial line 0.9 33 18 Calcium Gluconate 1 gm In 100 Sodium Chloride 0.9% 100 ml @ 100 mls/hr IVPB ONCE ONE Rx#:[id number] Calcium Gluconate 2 gm In 100 Sodium Chloride 0.9% 100 ml @ 100 mls/hr IVPB ONCE ONE Rx#:[id number] Magnesium Sulfate-D5w Pmx 200 1 gm In Dextrose/Water 1 100ml.bag @ 100 mls/hr IVPB Q1H [facility] Rx#: [id number] Potassium Chloride 20 meq 200 In Water For Injection 1 100ml.bag @ 50 mls/hr IVPB Q2H [facility] Rx#: [id number] Sodium Chloride 0.45% 1, 900 900 105 000 ml @ 75 mls/hr IV . [id number] [facility] Rx#:[id number] carrier IV .9%NS 110 230 100 Tube Feeding 50 Output: Urine 390 605 385 Stool 600 Other: Voiding Method Indwelling Catheter Indwelling Catheter Indwelling Catheter ABP, PAP, CO, CI - Last Documented Arterial Blood Pressure 158/56 - Exam -GENERAL: patient is intubated and sedated HEENT: Pupils are round and equally reacting to light. EOMI. No scleral icterus. No conjunctival pallor. Normocephalic, atraumatic. No pharyngeal erythema. No thyromegaly. CARDIOVASCULAR: S1 and S2 present. No murmurs, rubs, or gallops. -PULMONARY: Chest is clear to auscultation, no wheezing . Bilateral course crackles. ABDOMEN: Soft, nontender, nondistended, normoactive bowel sounds. No palpable organomegaly. MUSCULOSKELETAL: No joint swelling or deformity. -EXTREMITIES: No cyanosis, clubbing, . Bilateral leg edema NEUROLOGICAL: Gross neurological examination did not reveal any focal deficits. SKIN: No rashes. - Labs CBC & Chem 7: 07/04/18 06:30 07/04/18 06:30 Labs: Abnormal Lab Results - Last 24 Hours (Table) 07/02/18 07/03/18 07/03/18 Range/Units 12:08 15:43 22:50 RBC (4.30-5.90) m/uL Hgb (13.0-17.5) gm/dL Hct (39.0-53.0) % MCV (80.0-100.0) fL RDW (11.5-15.5) % Plt Count (150-450) k/uL Neutrophils # (1.3-7.7) k/uL Lymphocytes # (1.0-4.8) k/uL Potassium (3.5-5.1) mmol/L Chloride (98-107) mmol/L Carbon Dioxide (22-30) mmol/L BUN (9-20) mg/dL Creatinine (0.66-1.25) mg/dL Glucose (74-99) mg/dL POC Glucose (mg/dL) 105 H (75-99) mg/dL Calcium (8.4-10.2) mg/dL Ionized Calcium Cornelius (4.5-5.3) mg/dL Magnesium (1.6-2.3) mg/dL Vitamin D 25-Hydroxy (30.0-100.0) ng/mL RBC Folate 840 H (280 - 791) ng/mL PTH Intact 208.7 H (14.0-72.0) pg/mL U Random Total Protein (<12) mg/dL 07/03/18 07/03/18 07/04/18 Range/Units 22:50 22:50 04:50 RBC (4.30-5.90) m/uL Hgb (13.0-17.5) gm/dL Hct (39.0-53.0) % MCV (80.0-100.0) fL RDW (11.5-15.5) % Plt Count (150-450) k/uL Neutrophils # (1.3-7.7) k/uL Lymphocytes # (1.0-4.8) k/uL Potassium 2.7 L* (3.5-5.1) mmol/L Chloride 124 H (98-107) mmol/L Carbon Dioxide 13 L (22-30) mmol/L BUN 61 H (9-20) mg/dL Creatinine 3.93 H (0.66-1.25) mg/dL Glucose 56 L (74-99) mg/dL POC Glucose (mg/dL) (75-99) mg/dL Calcium 4.4 L* (8.4-10.2) mg/dL Ionized Calcium Cornelius (4.5-5.3) mg/dL Magnesium (1.6-2.3) mg/dL Vitamin D 25-Hydroxy 8.7 L (30.0-100.0) ng/mL RBC Folate (280 - 791) ng/mL PTH Intact (14.0-72.0) pg/mL U Random Total Protein 89 H (<12) mg/dL 07/04/18 07/04/18 07/04/18 Range/Units 05:45 06:30 06:30 RBC 2.28 L (4.30-5.90) m/uL Hgb 7.6 L (13.0-17.5) gm/dL Hct 23.1 L (39.0-53.0) % MCV 101.6 H (80.0-100.0) fL RDW 19.9 H (11.5-15.5) % Plt Count 40 L (150-450) k/uL Neutrophils # 7.9 H (1.3-7.7) k/uL Lymphocytes # 0.7 L (1.0-4.8) k/uL Potassium 3.2 L (3.5-5.1) mmol/L Chloride 121 H (98-107) mmol/L Carbon Dioxide 15 L (22-30) mmol/L BUN 70 H (9-20) mg/dL Creatinine 4.48 H (0.66-1.25) mg/dL Glucose 65 L (74-99) mg/dL POC Glucose (mg/dL) (75-99) mg/dL Calcium 5.0 L* (8.4-10.2) mg/dL Ionized Calcium Cornelius 3.5 L* (4.5-5.3) mg/dL Magnesium 1.3 L (1.6-2.3) mg/dL Vitamin D 25-Hydroxy (30.0-100.0) ng/mL RBC Folate (280 - 791) ng/mL PTH Intact (14.0-72.0) pg/mL U Random Total Protein (<12) mg/dL Microbiology - Last 24 Hours (Table) 06/30/18 08:54 Blood Culture - Preliminary Blood No Growth after 96 hours 06/29/18 01:56 Blood Culture - Preliminary Blood No Growth after 120 hours Assessment and Plan Assessment: septic shock Metabolic encephalopathy secondary to above Aspiration pneumonia Possible GI bleed, Urinary tract infection Acute kidney injury Chronic kidney disease stage III Hypothyroidism Essential hypertension History of pancreatitis History of acute cholecystitis History of bilateral stones status post biliary stent Plan: patient's was sent to the ICU. He got intubated and started on a process. Several consults R following the case including critical/pulmonary care team. [employer]. Patient was started on clindamycin and levofloxacin for possible urinary tract infection and pneumonia. However infectious disease consult for is appreciated to optimize his antibiotic therapy follow-up culture results. GI and cardiology team R following the case as well.DVT and GI prophylaxis. Monitor labs and vitals. Continue with the current medication. Further recommendations based on the clinical course of the patient Patient is in critical condition and prognosis is guarded
[2018-07-04 16:21] LABS: Glucose,Whole Blood 87 mg/dL (75-99)
[2018-07-04 17:32] LABS: Potassium 4.5 mmol/L (3.5-5.1)
--- NOTE | 2018-07-04 17:39 | P.PN ---
Subjective Progress Note Date: 07/04/18 Principal diagnosis: Anemia, history of chronic pancreatitis Patient is seen sitting bedside. No reports of abdominal pain. He is still not eating as he was unable to pass a swallow evaluation. No reports of nausea, vomiting or coffee-ground emesis. No reports of lower GI bleeding. Objective - Vital Signs Vital signs: Vital Signs Temp 97.3 F L 07/04/18 16:36 Pulse 83 07/04/18 16:36 Resp 16 07/04/18 16:36 BP 147/77 07/04/18 16:36 Pulse Ox 96 07/04/18 16:36 Intake & Output 07/03/18 07/04/18 07/04/18 18:59 06:59 18:59 Intake Total 1160 1163 967.263 Output Total 990 605 385 Balance 170 558 582.263 Weight 72.8 kg 74.1 kg Intake: IV 1110 1163 723 Arterial line 0.9 33 18 Calcium Gluconate 1 gm In 100 Sodium Chloride 0.9% 100 ml @ 100 mls/hr IVPB ONCE ONE Rx#:[id number] Calcium Gluconate 2 gm In 100 Sodium Chloride 0.9% 100 ml @ 100 mls/hr IVPB ONCE ONE Rx#:[id number] Magnesium Sulfate-D5w Pmx 200 1 gm In Dextrose/Water 1 100ml.bag @ 100 mls/hr IVPB Q1H [facility] Rx#: [id number] Potassium Chloride 20 meq 200 In Water For Injection 1 100ml.bag @ 50 mls/hr IVPB Q2H [facility] Rx#: [id number] Sodium Chloride 0.45% 1, 900 900 105 000 ml @ 75 mls/hr IV . [id number] [facility] Rx#:[id number] carrier IV .9%NS 110 230 100 Intake, IV Titration 244.263 Amount Norepinephrine 32 mg In 244.263 Sodium Chloride 0.9% 218 ml @ 0.05 MCG/KG/MIN 1. 617 mls/hr IV .Q24H [facility] Rx#:[id number] Tube Feeding 50 Output: Urine 390 605 385 Stool 600 Other: Voiding Method Indwelling Catheter Indwelling Catheter Indwelling Catheter ABP, PAP, CO, CI - Last Documented Arterial Blood Pressure 158/56 - Exam On physical examination, patient appears comfortable in no apparent distress. HEAD: Normocephalic, atraumatic. EYES: No scleral icterus. No conjunctival injection. MOUTH: No lesions, tongue midline. NECK: Trachea midline, no gross abnormalities. CHEST: Coarse respiratory noises in all lung yi. HEART: Regular rate and rhythm. ABDOMEN: Soft, obese. Bowel sounds are positive. No organomegaly. No guarding o r rigidity. EXTREMITIES: No pedal edema. SKIN: No rashes, no jaundice. NEUROLOGIC: Awake and following commands. - Labs CBC & Chem 7: 07/04/18 06:30 07/04/18 16:56 Labs: Abnormal Lab Results - Last 24 Hours (Table) 06/29/18 07/02/18 07/03/18 Range/Units 03:30 12:08 22:50 RBC (4.30-5.90) m/uL Hgb (13.0-17.5) gm/dL Hct (39.0-53.0) % MCV (80.0-100.0) fL RDW (11.5-15.5) % Plt Count (150-450) k/uL Neutrophils # (1.3-7.7) k/uL Lymphocytes # (1.0-4.8) k/uL Potassium (3.5-5.1) mmol/L Chloride (98-107) mmol/L Carbon Dioxide (22-30) mmol/L BUN (9-20) mg/dL Creatinine (0.66-1.25) mg/dL Glucose (74-99) mg/dL Calcium (8.4-10.2) mg/dL Ionized Calcium Cornelius (4.5-5.3) mg/dL Magnesium (1.6-2.3) mg/dL Vitamin D 25-Hydroxy (30.0-100.0) ng/mL RBC Folate 840 H (280 - 791) ng/mL PTH Intact 208.7 H (14.0-72.0) pg/mL U Random Total Protein (<12) mg/dL Crossmatch See Detail 07/03/18 07/03/18 07/04/18 Range/Units 22:50 22:50 04:50 RBC (4.30-5.90) m/uL Hgb (13.0-17.5) gm/dL Hct (39.0-53.0) % MCV (80.0-100.0) fL RDW (11.5-15.5) % Plt Count (150-450) k/uL Neutrophils # (1.3-7.7) k/uL Lymphocytes # (1.0-4.8) k/uL Potassium 2.7 L* (3.5-5.1) mmol/L Chloride 124 H (98-107) mmol/L Carbon Dioxide 13 L (22-30) mmol/L BUN 61 H (9-20) mg/dL Creatinine 3.93 H (0.66-1.25) mg/dL Glucose 56 L (74-99) mg/dL Calcium 4.4 L* (8.4-10.2) mg/dL Ionized Calcium Cornelius (4.5-5.3) mg/dL Magnesium (1.6-2.3) mg/dL Vitamin D 25-Hydroxy 8.7 L (30.0-100.0) ng/mL RBC Folate (280 - 791) ng/mL PTH Intact (14.0-72.0) pg/mL U Random Total Protein 89 H (<12) mg/dL Crossmatch 07/04/18 07/04/18 07/04/18 Range/Units 05:45 06:30 06:30 RBC 2.28 L (4.30-5.90) m/uL Hgb 7.6 L (13.0-17.5) gm/dL Hct 23.1 L (39.0-53.0) % MCV 101.6 H (80.0-100.0) fL RDW 19.9 H (11.5-15.5) % Plt Count 40 L (150-450) k/uL Neutrophils # 7.9 H (1.3-7.7) k/uL Lymphocytes # 0.7 L (1.0-4.8) k/uL Potassium 3.2 L (3.5-5.1) mmol/L Chloride 121 H (98-107) mmol/L Carbon Dioxide 15 L (22-30) mmol/L BUN 70 H (9-20) mg/dL Creatinine 4.48 H (0.66-1.25) mg/dL Glucose 65 L (74-99) mg/dL Calcium 5.0 L* (8.4-10.2) mg/dL Ionized Calcium Cornelius 3.5 L* (4.5-5.3) mg/dL Magnesium 1.3 L (1.6-2.3) mg/dL Vitamin D 25-Hydroxy (30.0-100.0) ng/mL RBC Folate (280 - 791) ng/mL PTH Intact (14.0-72.0) pg/mL U Random Total Protein (<12) mg/dL Crossmatch 07/04/18 Range/Units 16:56 RBC (4.30-5.90) m/uL Hgb (13.0-17.5) gm/dL Hct (39.0-53.0) % MCV (80.0-100.0) fL RDW (11.5-15.5) % Plt Count (150-450) k/uL Neutrophils # (1.3-7.7) k/uL Lymphocytes # (1.0-4.8) k/uL Potassium (3.5-5.1) mmol/L Chloride 114 H (98-107) mmol/L Carbon Dioxide 18 L (22-30) mmol/L BUN (9-20) mg/dL Creatinine (0.66-1.25) mg/dL Glucose (74-99) mg/dL Calcium (8.4-10.2) mg/dL Ionized Calcium Cornelius (4.5-5.3) mg/dL Magnesium (1.6-2.3) mg/dL Vitamin D 25-Hydroxy (30.0-100.0) ng/mL RBC Folate (280 - 791) ng/mL PTH Intact (14.0-72.0) pg/mL U Random Total Protein (<12) mg/dL Crossmatch Microbiology - Last 24 Hours (Table) 06/30/18 08:54 Blood Culture - Preliminary Blood No Growth after 96 hours 06/29/18 01:56 Blood Culture - Preliminary Blood No Growth after 120 hours Assessment and Plan (1) Macrocytic anemia Narrative/Plan: Patient with findings of macrocytic anemia on laboratory evaluation. No signs or symptoms of GI bleeding. The patient is having frequent stools with no hematochezia or melena reported. Hemoglobin remained stable. Macrocytic indices. Current Visit: Yes Status: Acute Priority: Medium Code(s): D53.9 - NUTRITIONAL ANEMIA, UNSPECIFIED SNOMED Code(s): 48204614 (2) Pancreatitis Narrative/Plan: History of chronic pancreatitis. Current Visit: No Status: Acute Code(s): K85.9 - ACUTE PANCREATITIS, UNSPECIFIED * DO NOT USE * SNOMED Code(s): 77966439 Plan: Supportive care Okay for diet after patient passed a swallow evaluation No plans for endoscopic intervention at this time Continue to monitor stool output, testing for Clostridium difficile negative Continue to monitor hemoglobin and hematocrit and transfuse as needed Hematology service following the patient, at this point is felt that the patient's anemia is likely multifactorial secondary to nutritional deficiencies, toxic effect of alcohol, iron deficiency etc. Gastroenterology will continue to follow, thank you for allowing us to participate in the care of the patient
[2018-07-04] MEDS: CALCIUM GLUCONATE 1 GM in SODIUM CHLORIDE 0.9% 100 ML IVPB SCH (22:18)
--- NOTE | 2018-07-04 22:45 | P.PN ---
Subjective Progress Note Date: 07/04/18 68-year-old male that has multiple medical troubles that includes alcoholism, COPD and a history of pancreatitis. The patient required ERCP with pancreatic duct stenting after a recent illness. His related that in the week before admission he started to have progressive shortness of breath, he became profoundly weak and consequently did present for evaluation. Patient was noted to have acute blood loss anemia, acute renal failure and developed respiratory failure The patient did not have significant fever and influenza testing was negative and his lactic acid was normal. The patient hour developed progressive respiratory failure and is now required intubation with sedation and mechanical ventilation. Further information does come from the chart. 07/02/2018 patient remains intubated sedated and mechanically ventilated. Appears to be comfortable and is hemodynamically stable but still on vasopressor therapy. 07/04/2018 patient extubated having improvement of his status. His been moved out of the intensive care unit with his improved status. There is stability to his hemoglobin. He is tolerating high dose of Ancef for his MSSA pneumonia without difficulty. Objective - Vital Signs Vital signs: Vital Signs Temp 97.3 F L 07/04/18 22:14 Pulse 81 07/04/18 22:14 Resp 18 07/04/18 22:14 BP 146/76 07/04/18 22:14 Pulse Ox 98 07/04/18 22:14 Intake & Output 07/04/18 07/04/18 07/05/18 06:59 18:59 06:59 Intake Total 1163 967.263 Output Total 605 385 Balance 558 582.263 Weight 74.1 kg Intake: IV 1163 723 Arterial line 0.9 33 18 Calcium Gluconate 2 gm In 100 Sodium Chloride 0.9% 100 ml @ 100 mls/hr IVPB ONCE ONE Rx#:[id number] Magnesium Sulfate-D5w Pmx 200 1 gm In Dextrose/Water 1 100ml.bag @ 100 mls/hr IVPB Q1H [facility] Rx#: [id number] Potassium Chloride 20 meq 200 In Water For Injection 1 100ml.bag @ 50 mls/hr IVPB Q2H [facility] Rx#: [id number] Sodium Chloride 0.45% 1, 900 105 000 ml @ 75 mls/hr IV . [id number] [facility] Rx#:[id number] carrier IV .9%NS 230 100 Intake, IV Titration 244.263 Amount Norepinephrine 32 mg In 244.263 Sodium Chloride 0.9% 218 ml @ 0.05 MCG/KG/MIN 1. 617 mls/hr IV .Q24H [facility] Rx#:[id number] Output: Urine 605 385 Other: Voiding Method Indwelling Catheter Indwelling Catheter ABP, PAP, CO, CI - Last Documented Arterial Blood Pressure 158/56 - Exam 68-year-old male who extubated, comfortable denying severe shortness of breath HEENT: Anicteric conjunctiva are pink and moist nasal mucosa grossly intact without significant lesions, no lesions are noted around the endotracheal tube and no thrush was seen Neck: The neck is not rigid without significant lymphadenopathy or thyromegaly. Lungs: Symmetrical bilateral air entry with coarse crackles throughout the lung yi Heart: Irregular with an audible S4no fever murmur click or rub PMI nondisplaced Abdomen: Positive bowel sounds soft without palpable masses or organomegaly. There was no rigidity does have a fecal management system in place Extremities: The upper extremities have excellent pulses they are symmetric, no significant petechiae or telangiectasia. No splinter hemorrhages were noted. Lower extremities have some trace edema no significant open ulcerations are seen Neuro: Awake and alert but confused - Labs CBC & Chem 7: 07/04/18 06:30 07/04/18 16:56 Labs: Abnormal Lab Results - Last 24 Hours (Table) 06/29/18 07/03/18 07/03/18 Range/Units 03:30 22:50 22:50 RBC (4.30-5.90) m/uL Hgb (13.0-17.5) gm/dL Hct (39.0-53.0) % MCV (80.0-100.0) fL RDW (11.5-15.5) % Plt Count (150-450) k/uL Neutrophils # (1.3-7.7) k/uL Lymphocytes # (1.0-4.8) k/uL Potassium (3.5-5.1) mmol/L Chloride (98-107) mmol/L Carbon Dioxide (22-30) mmol/L BUN (9-20) mg/dL Creatinine (0.66-1.25) mg/dL Glucose (74-99) mg/dL Calcium (8.4-10.2) mg/dL Ionized Calcium Cornelius (4.5-5.3) mg/dL Magnesium (1.6-2.3) mg/dL Vitamin D 25-Hydroxy 8.7 L (30.0-100.0) ng/mL PTH Intact 208.7 H (14.0-72.0) pg/mL U Random Total Protein (<12) mg/dL Crossmatch See Detail 07/03/18 07/04/18 07/04/18 Range/Units 22:50 04:50 05:45 RBC (4.30-5.90) m/uL Hgb (13.0-17.5) gm/dL Hct (39.0-53.0) % MCV (80.0-100.0) fL RDW (11.5-15.5) % Plt Count (150-450) k/uL Neutrophils # (1.3-7.7) k/uL Lymphocytes # (1.0-4.8) k/uL Potassium 2.7 L* (3.5-5.1) mmol/L Chloride 124 H (98-107) mmol/L Carbon Dioxide 13 L (22-30) mmol/L BUN 61 H (9-20) mg/dL Creatinine 3.93 H (0.66-1.25) mg/dL Glucose 56 L (74-99) mg/dL Calcium 4.4 L* (8.4-10.2) mg/dL Ionized Calcium Cornelius 3.5 L* (4.5-5.3) mg/dL Magnesium (1.6-2.3) mg/dL Vitamin D 25-Hydroxy (30.0-100.0) ng/mL PTH Intact (14.0-72.0) pg/mL U Random Total Protein 89 H (<12) mg/dL Crossmatch 07/04/18 07/04/18 07/04/18 Range/Units 06:30 06:30 16:56 RBC 2.28 L (4.30-5.90) m/uL Hgb 7.6 L (13.0-17.5) gm/dL Hct 23.1 L (39.0-53.0) % MCV 101.6 H (80.0-100.0) fL RDW 19.9 H (11.5-15.5) % Plt Count 40 L (150-450) k/uL Neutrophils # 7.9 H (1.3-7.7) k/uL Lymphocytes # 0.7 L (1.0-4.8) k/uL Potassium 3.2 L (3.5-5.1) mmol/L Chloride 121 H 114 H (98-107) mmol/L Carbon Dioxide 15 L 18 L (22-30) mmol/L BUN 70 H (9-20) mg/dL Creatinine 4.48 H (0.66-1.25) mg/dL Glucose 65 L (74-99) mg/dL Calcium 5.0 L* (8.4-10.2) mg/dL Ionized Calcium Cornelius (4.5-5.3) mg/dL Magnesium 1.3 L (1.6-2.3) mg/dL Vitamin D 25-Hydroxy (30.0-100.0) ng/mL PTH Intact (14.0-72.0) pg/mL U Random Total Protein (<12) mg/dL Crossmatch Microbiology - Last 24 Hours (Table) 06/30/18 08:54 Blood Culture - Preliminary Blood No Growth after 96 hours 06/29/18 01:56 Blood Culture - Preliminary Blood No Growth after 120 hours Laboratory Results WBC 9.2 k/uL (3.8-10.6) 07/04/18 06:30 RBC 2.28 m/uL (4.30-5.90) L 07/04/18 06:30 Hgb 7.6 gm/dL (13.0-17.5) L 07/04/18 06:30 Hct 23.1 % (39.0-53.0) L 07/04/18 06:30 MCV 101.6 fL (80.0-100.0) H 07/04/18 06:30 MCH 33.4 pg (25.0-35.0) 07/04/18 06:30 MCHC 32.9 g/dL (31.0-37.0) 07/04/18 06:30 RDW 19.9 % (11.5-15.5) H 07/04/18 06:30 Plt Count 40 k/uL (150-450) L 07/04/18 06:30 Neutrophils % 86 % 07/04/18 06:30 Neutrophils % (Manual) 78 % 06/30/18 07:48 Band Neutrophils % 8 % 06/30/18 07:48 Lymphocytes % 7 % 07/04/18 06:30 Lymphocytes % (Manual) 8 % 06/30/18 07:48 Monocytes % 4 % 07/04/18 06:30 Monocytes % (Manual) 4 % 06/30/18 07:48 Eosinophils % 2 % 07/04/18 06:30 Basophils % 0 % 07/04/18 06:30 Metamyelocytes % 2 % 06/30/18 07:48 Myelocytes % 1 % 06/30/18 07:48 Neutrophils # 7.9 k/uL (1.3-7.7) H 07/04/18 06:30 Neutrophils # (Manual) 13.30 k/uL (1.3-7.7) H 06/30/18 07:48 Lymphocytes # 0.7 k/uL (1.0-4.8) L 07/04/18 06:30 Lymphocytes # (Manual) 1.24 k/uL (1.0-4.8) 06/30/18 07:48 Monocytes # 0.4 k/uL (0-1.0) 07/04/18 06:30 Monocytes # (Manual) 0.62 k/uL (0-1.0) 06/30/18 07:48 Eosinophils # 0.2 k/uL (0-0.7) 07/04/18 06:30 Basophils # 0.0 k/uL (0-0.2) 07/04/18 06:30 Metamyelocytes # (Man) 0.31 k/uL (0) H 06/30/18 07:48 Myelocytes # (Manual) 0.16 k/uL (0) H 06/30/18 07:48 Nucleated RBCs 0 /100 WBC (0-0) 06/30/18 07:48 Manual Slide Review Performed 06/30/18 07:48 Toxic Granulation Present 06/30/18 07:48 Large Platelets Present 06/30/18 07:48 Hypochromasia Slight 07/01/18 05:15 Poikilocytosis Slight 07/02/18 04:20 Poikilocytosis (manual Present 06/30/18 07:48 Anisocytosis Slight 07/04/18 06:30 Macrocytosis Moderate 07/04/18 06:30 Retic Count 0.7 % (0.5-2.0) 07/02/18 12:08 PT 10.5 sec (9.0-12.0) 06/29/18 01:56 INR 1.0 (<1.2) 06/29/18 01:56 APTT 31.8 sec (22.0-30.0) H 06/29/18 01:56 Sample Site dwayne 07/03/18 08:50 ABG pH 7.34 (7.35-7.45) L 07/03/18 08:50 ABG pCO2 42 mmHg (35-45) 07/03/18 08:50 ABG pO2 87 mmHg (83-108) 07/03/18 08:50 ABG HCO3 22 mmol/L (21-25) 07/03/18 08:50 ABG Total CO2 24 mmol/L (19-24) 07/03/18 08:50 ABG O2 Saturation 96.3 % (94-97) 07/03/18 08:50 ABG Base Excess -3.4 mmol/L 07/03/18 08:50 Andreas Test no 07/03/18 08:50 FiO2 30 % 07/03/18 08:50 Sodium 145 mmol/L (137-145) 07/04/18 16:56 Potassium 4.5 mmol/L (3.5-5.1) 07/04/18 16:56 Chloride 114 mmol/L (98-107) H 07/04/18 16:56 Carbon Dioxide 18 mmol/L (22-30) L 07/04/18 16:56 Anion Gap 13 mmol/L 07/04/18 16:56 BUN 70 mg/dL (9-20) H 07/04/18 06:30 Creatinine 4.48 mg/dL (0.66-1.25) H 07/04/18 06:30 Est GFR (CKD-EPI)AfAm 15 (>60 ml/min/1.73 sqM) 07/04/18 06:30 Est GFR (CKD-EPI)NonAf 13 (>60 ml/min/1.73 sqM) 07/04/18 06:30 Glucose 65 mg/dL (74-99) L 07/04/18 06:30 POC Glucose (mg/dL) 87 mg/dL (75-99) 07/04/18 16:09 POC Glu [employer] Bisi Nieto 07/04/18 16:09 Osmolality 340 mosm/kg (280-301) H* 06/30/18 07:48 Plasma Lactic Acid Fred <0.5 mmol/L (0.7-2.0) L 06/30/18 08:57 Calcium 5.0 mg/dL (8.4-10.2) L* 07/04/18 06:30 Ionized Calcium Cornelius 3.5 mg/dL (4.5-5.3) L* 07/04/18 05:45 Phosphorus 6.6 mg/dL (2.5-4.5) H 07/01/18 05:15 Magnesium 1.3 mg/dL (1.6-2.3) L 07/04/18 06:30 Iron 52 ug/dL (65-175) L 07/02/18 12:08 TIBC 200 ug/dL (228-460) L 07/02/18 12:08 Iron Saturation 26.00 (15.00-50.00) 07/02/18 12:08 Erythropoietin 90.45 mIU/mL (2.00-30.00) H 07/02/18 12:08 Ferritin 76.9 ng/mL (22.0-322.0) 07/02/18 12:08 Total Bilirubin 0.3 mg/dL (0.2-1.3) 06/29/18 01:56 AST 55 U/L (17-59) 06/29/18 01:56 ALT 55 U/L (21-72) 06/29/18 01:56 Alkaline Phosphatase 109 U/L (38-126) 06/29/18 01:56 Lactate Dehydrogenase 563 U/L (313-618) 07/02/18 04:20 Troponin I <0.012 ng/mL (0.000-0.034) 06/30/18 07:48 Total Protein 5.1 g/dL (6.3-8.2) L 06/29/18 01:56 Albumin 2.6 g/dL (3.5-5.0) L 06/29/18 01:56 Amylase 31 U/L (30-110) 07/01/18 06:15 Lipase 127 U/L (23-300) 07/01/18 06:15 Vitamin B12 757.0 pg/mL (200.0-944.0) 07/02/18 12:08 Vitamin D 25-Hydroxy 8.7 ng/mL (30.0-100.0) L 07/03/18 22:50 RBC Folate 840 ng/mL (280 - 791) H 07/02/18 12:08 TSH 8.700 mIU/L (0.465-4.680) H 06/29/18 01:56 Free T4 0.47 ng/dL (0.78-2.19) L 06/29/18 01:56 PTH Intact 208.7 pg/mL (14.0-72.0) H 07/03/18 22:50 Cortisol 16 ug/dL 07/01/18 06:15 Urine Color Yellow 06/29/18 06:22 Urine Appearance Cloudy (Clear) 06/29/18 06:22 Urine pH 5.5 (5.0-8.0) 06/29/18 06:22 Ur Specific [place] 1.015 (1.001-1.035) 06/29/18 06:22 Urine Protein 2+ (Negative) H 06/29/18 06:22 Urine Glucose (UA) Negative (Negative) 06/29/18 06:22 Urine Ketones Negative (Negative) 06/29/18 06:22 Urine Blood Moderate (Negative) H 06/29/18 06:22 Urine Nitrite Negative (Negative) 06/29/18 06:22 Urine Bilirubin Negative (Negative) 06/29/18 06:22 Urine Urobilinogen <2.0 mg/dL (<2.0) 06/29/18 06:22 Ur Leukocyte Esterase Moderate (Negative) H 06/29/18 06:22 Urine RBC 56 /hpf (0-5) H 06/29/18 06:22 Urine WBC 26 /hpf (0-5) H 06/29/18 06:22 Ur Squamous Epith Cells <1 /hpf (0-4) 06/29/18 06:22 Urine Mucus Rare /hpf (None) H 06/29/18 06:22 Ur Random Creatinine 57.8 mg/dL 07/03/18 22:50 U Random Total Protein 89 mg/dL (<12) H 07/03/18 22:50 Stool Occult Blood Positive (Negative) 06/29/18 04:16 Serum LUIS Interpret SEE NOTE 07/03/18 05:10 GENNA Screen NEGATIVE (NEGATIVE) 06/30/18 15:43 c-ANCA <1:20 Titer (<1:20) 06/30/18 07:48 p-ANCA <1:20 Titer (<1:20) 06/30/18 07:48 Double Strand DNA Ab NEGATIVE (NEGATIVE) 06/30/18 15:43 Anti-DNA Ab Interp <1.0 IU/mL 06/30/18 15:43 Complement C3 56.0 mg/dL (80.0-207.0) L 06/30/18 15:43 Complement C4 9.7 mg/dL (10.0-53.0) L 06/30/18 15:43 C. difficile (EIA) Intrp Negative (Negative) 07/02/18 04:15 Hep Bs Antigen Non-Reactive (Non-Reactive) 07/02/18 04:20 Hep Bs Antibody Non-Reactive (Non-Reactive) 07/02/18 04:20 Hep Bs Antibody, Quant 3.5 mIU/mL 07/02/18 04:20 Hep C IgG Ab Non-Reactive (Non-Reactive) 07/02/18 04:20 Influenza Type A RNA Not Detected (Not Detectd) 06/30/18 07:50 Influenza Type B (PCR) Not Detected (Not Detectd) 06/30/18 07:50 Blood Type A Positive 06/29/18 03:30 Blood Type Recheck No 06/29/18 03:30 Antibody Screen NEGATIVE 06/29/18 03:30 Crossmatch See Detail 06/29/18 03:30 Spec Expiration Date 07/02/2018235506/29/18 03:30 Microbiology 06/30/18 08:54 Blood Blood Culture - Preliminary No Growth after 96 hours 06/29/18 01:56 Blood Blood Culture - Preliminary No Growth after 120 hours 06/30/18 13:10 Sputum Gram Stain - Final 06/30/18 13:10 Sputum Sputum Culture - Final Staphylococcus aureus 06/30/18 08:51 Urine,Catheterized Urine Culture - Final 06/29/18 06:22 Urine,Catheterized Urine Culture - Final Assessment and Plan (1) MUMTAZ (acute kidney injury) Current Visit: Yes Status: Acute Code(s): N17.9 - ACUTE KIDNEY FAILURE, UNSPECIFIED SNOMED Code(s): 06573301 (2) Acute blood loss anemia Current Visit: Yes Status: Acute Code(s): D62 - ACUTE POSTHEMORRHAGIC ANEMIA SNOMED Code(s): 546742969 (3) Staphylococcus aureus pneumonia Narrative/Plan: 68 year old male that has multiple medical troubles including a history of pancreatitis requiring biliary stent. At this time he has developed respiratory failure as well as acute renal failure and blood loss anemia. The patient has been intubated and is mechanically ventilated. Sputum is showing evidence of a staphylococcal infection in is unknown at this point in time if this is MRSA. Consequently antibiotic therapy is enhanced by adding clindamycin intravenously. Vancomycin was avoided given his acute renal failure and avoidance of any other nephrotoxins. He is on Levophed consequently Zyvox is not possible Ceftaroline not available. Final culture result will help determine final choice of antibiotic therapy. With his chronic liver disease he is noticed to have thrombocytopenia which is likely worsened because of the current sepsis from his pneumonia. Blood cultures were negative so far. Influenza was negative. He did have relative hypothermia and a bear hugger is in place, this is concerning given his sepsis. 07/02/2018 patient remains intubated sedated and mechanically ventilated and has evidence of MSSA infection. Consider clindamycin is discontinued. High-dose of Ancef is added dose appropriate for his current renal failure. Does appear to have some improvement of his status. His oxygen requirements have improved. He does have nonoliguric renal failure there's been some improvement of his creatinine. He is on less vasopressor therapy. He has not with evidence of acute bleeding. Has been seen by hematology and appears that there is bone marrow effect from his alcohol use with thrombocytopenia and anemia. No need for transfusions at this time. 07/04/2018 the patient is improved. He has been extubated and is now on the medical floor. He has on high-dose cefazolin being dosed for his renal failure. This seemed to have some improvement in his status and has been seen by [facility]. GI is following with liver disease and pancreatitis in hematology is following regarding his hematological abnormality is all thought to be related to his chronic alcoholism. As he progresses will work with the discharge planners as to the best options for his antibiotic therapy as he transitions out of our facility. Current Visit: Yes Status: Acute Code(s): J15.211 - PNEUMONIA DUE TO METHICILLIN SUSCEP STAPH SNOMED Code(s): 734830625
[2018-07-05 00:11] LABS: Glucose,Whole Blood 84 mg/dL (75-99)
[2018-07-05] MEDS: INSULIN ASPART (NovoLOG) 100 UNIT/ML VIAL SQ SCH ×3 (00:28→13:26)
[2018-07-05] MEDS: IPRATROPIUM-ALBUTEROL 3 ML NEB INHALATION SCH ×7 (00:41→23:01)
[2018-07-05 01:51] LABS: Methylmalonic Acid 0.63 umol/L (<0.40)
[2018-07-05 06:08] LABS: Glucose,Whole Blood 81 mg/dL (75-99)
[2018-07-05] MEDS: LEVOTHYROXINE IVP 100 MCG/5 ML VIAL IV SCH (09:20)
[2018-07-05] MEDS: PANTOPRAZOLE 40 MG/10 ML VIAL IVP SCH ×2 (09:20→23:59)
[2018-07-05] MEDS: ceFAZolin IN SWFI 2 GM/20 ML SYRINGE IVP SCH (09:20)
[2018-07-05] MEDS: SODIUM BICARBONATE TAB 650 MG TAB PO SCH (09:21)
[2018-07-05] MEDS: CALCIUM GLUCONATE 1 GM in SODIUM CHLORIDE 0.9% 100 ML IVPB SCH ×2 (10:47→23:59)
[2018-07-05 11:00] LABS: Anisocytosis Slight; Basophils % (A) 0 %; Eosinophils # (A) 0.4 k/uL (0-0.7); Eosinophils % (A) 3 %; HCT 26.1 % (39.0-53.0); HGB 8.4 gm/dL (13.0-17.5); Hypochromasia Moderate; Lymphocytes # (A) 0.6 k/uL (1.0-4.8); Lymphocytes % (A) 5 %; MCH 33.7 pg (25.0-35.0); MCHC 32.2 g/dL (31.0-37.0); MCV 104.7 fL (80.0-100.0); Macrocytosis Marked; Mean Platelet Volume 10.6; Monocytes # (A) 0.4 k/uL (0-1.0); Monocytes % (A) 4 %; Neutrophils # (A) 10.2 k/uL (1.3-7.7); Neutrophils % (A) 87 %; RBC 2.49 m/uL (4.30-5.90); RDW 19.6 % (11.5-15.5); WBC 11.7 k/uL (3.8-10.6)
[2018-07-05 11:02] LABS: Calcium 7.8 mg/dL (8.4-10.2); Potassium 4.6 mmol/L (3.5-5.1)
[2018-07-05 11:10] LABS: Platelet Count 85 k/uL (150-450)
[2018-07-05] MEDS: SODIUM FERRIC GLUCONAT-SUCROSE 125 MG in SODIUM CHLORIDE 0.9% 100 ML IVPB SCH (11:47)
[2018-07-05] MEDS: methylPREDNISolone SOD SUCCI 40 MG/ML 1 ML VIAL IV SCH ×3 (12:19→23:59)
[2018-07-05 13:06] LABS: Polychromasia Present; Target Cells Present
[2018-07-05] MEDS ORDERED: DEXTROSE 50% SYRINGE 50 ML IVP ONE (13:24)
[2018-07-05 13:39] LABS: Glucose,Whole Blood 66 mg/dL (75-99)
[2018-07-05 13:48] LABS: Glucose,Whole Blood 73 mg/dL (75-99)
[2018-07-05] MEDS ORDERED: DEXTROSE 5%-0.45% NACL 1,000 ML IV SCH ×2 (14:30→17:00)
--- NOTE | 2018-07-05 14:37 | P.PN ---
Subjective Progress Note Date: 07/05/18 Principal diagnosis: Septic shock, likely related to Pseudomonas pneumonia infection, urinary tract infection, metabolic acidosis, acute kidney injury This is a 68-year-old white male, known history of pancreatitis, attention, he had previous ERCP for bile duct stent with colitis and history of alcohol abuse. Patient presented to [facility] with 1 week history of worsening shortness of breath. Patient was noted to be anemic, and he was transfused with 2 units of packed RBCs upon presentation. He was seen by gastroenterology on consultation and he was being considered for EGD. In the meantime the patient was placed on Protonix. Patient is known to have history of alcohol abuse, drinks liquor on a daily basis, patient had previous history of bile duct stricture in 2014 and pancreatitis, requiring biliary stenting. Patient is also known to have history of thrombocytopenia and macrocytic anemia. Upon presentation, the patient was noted to have fecal occult blood test positive. The patient was admitted on 06/29, and this morning the rapid response team from the ICU and responded to the patient being hypotensive and short of breath. I was notified about the patient's ABG showing a pO2 of 87 pCO2 of 39 and pH of 7.07. His bicarb was noted to be 12. Hence I recommended immediate intubation fluids, and immediate transfer to the intensive care unit. Shortly after, the patient arrived to the ICU, and he was again noted to be hypotensive, more fluid boluses were given. Started the patient on norepinephrine and this will be titrated accordingly to a mean arterial pressure of 65 or higher. Patient was noted to be oliguric, and he likely developed acute tubular necrosis because of low blood pressure, and nephrology consultation was initiated. In the meantime the patient will need to be on broad-spectrum antibiotics for presumptive sepsis. His chest x-ray showed no evidence of infiltrate, however his urine may be infected based on the urinalysis upon admission. Patient is on Rocephin, and he is also on Zosyn. Patient was reevaluated today on 07/01/2018, he remains on mechanical ventilation, his ventilator settings are assist control rate of 20, tidal volume of 450, FiO2 of 40%, and PEEP of 5. Chest x-ray is now shaving clearly bilateral pneumonia right lower lobe infiltrate is noted, and suspect left retrocardiac opacity/consolidation. His sputum is positive for presumptive Pseudomonas. ABG this morning showed a pO2 of 92 pCO2 of 38 pH of 7.33. Patient is metabolically acidotic, remains on sodium bicarb drip and this is related to his sepsis, and acute tubular necrosis/acute kidney injury. Patient remains on propofol, he is also on norepinephrine, 6 mcg/m,. Patient is also on insulin drip. Urine output is about 30 mL per hour. Continues to have a nasogastric tube in place, and he would have enteral feeding started today. Medication-alvarez the patient is on DuoNeb updrafts, Rocephin and Zosyn, will likely change Rocephin to Levaquin since we may be dealing with pseudomonas aeruginosa pneumonia. Patient received significant amount of fluid boluses yesterday, roughly a total of 4 L. And later on he required to be placed on norepinephrine. Again his blood pressure is marginal, but urine output seems to be improving steadily. His BUN today is 94, creatinine is 5.81, improved compared to creatinine yesterday. Patient does have a low ionized calcium, will give the patient calcium gluconate. We'll also cut down on the bicarb drip today. On 07/05/2018 patient seen in follow-up [facility] surgical floor. She is resting comfortably in bed, in no acute distress. 3 L of oxygen his pulse ox is 97%, no fever or chills, hemodynamic patient is stable, lung sounds are positive for coarse rhonchi, he is coughing, at times she is able to clear some stuff, but mostly dumbest nonproductive. Patient has failed a swallow evaluation, remains nothing by mouth at this time. Today's labs have been reviewed, shows a white blood cell count of 11.7, hemoglobin of 8.4, sodium is 147 potassium is 4.6. Sputum was positive for Staphylococcus aureus, with sensitivity to oxacillin. Abiotic coverage in the form of Kefzol, ID service is following, Objective - Vital Signs Vital signs: Vital Signs Temp 97.3 F L 07/05/18 13:22 Pulse 87 07/05/18 13:22 Resp 18 07/05/18 13:22 BP 158/80 07/05/18 13:22 Pulse Ox 97 07/05/18 13:22 Intake & Output 07/04/18 07/05/18 07/05/18 18:59 06:59 18:59 Intake Total 967.263 200 Output Total 385 1800 320 Balance 582.263 -1800 -120 Weight 74 kg Intake: IV 723 200 Arterial line 0.9 18 Calcium Gluconate 1 gm In 100 Sodium Chloride 0.9% 100 ml @ 100 mls/hr IVPB BID [facility] Rx#:[id number] Calcium Gluconate 2 gm In 100 Sodium Chloride 0.9% 100 ml @ 100 mls/hr IVPB ONCE ONE Rx#:[id number] Magnesium Sulfate-D5w Pmx 200 1 gm In Dextrose/Water 1 100ml.bag @ 100 mls/hr IVPB Q1H [facility] Rx#: [id number] Potassium Chloride 20 meq 200 In Water For Injection 1 100ml.bag @ 50 mls/hr IVPB Q2H [facility] Rx#: [id number] Sodium Chloride 0.45% 1, 105 000 ml @ 75 mls/hr IV . [id number] [facility] Rx#:[id number] Sodium Ferric Gluconat- 100 Sucrose 125 mg In Sodium Chloride 0.9% 100 ml @ 100 mls/hr IVPB DAILY [facility] Rx#:[id number] carrier IV .9%NS 100 Intake, IV Titration 244.263 Amount Norepinephrine 32 mg In 244.263 Sodium Chloride 0.9% 218 ml @ 0.05 MCG/KG/MIN 1. 617 mls/hr IV .Q24H [facility] Rx#:[id number] Output: Urine 385 900 320 Stool 900 Other: Voiding Method Indwelling Catheter Urinal # Voids 1 ABP, PAP, CO, CI - Last Documented Arterial Blood Pressure 158/56 - Exam GENERAL EXAM: Alert, pleasant 68-year-old white male on 3 L of oxygen comfortable in no apparent distress. HEAD: Normocephalic/atraumatic. EYES: Normal reaction of pupils, equal size. Conjunctiva pink, sclera white. NOSE: Clear with pink turbinates. THROAT: No erythema or exudates. NECK: No masses, no JVD, no thyroid enlargement, no adenopathy. CHEST: No chest wall deformity. Symmetrical expansion. LUNGS: Equal air entry with coarse rhonchi CVS: Regular rate and rhythm, normal S1 and S2, no gallops, no murmurs, no rubs ABDOMEN: Soft, nontender. No hepatosplenomegaly, normal bowel sounds, no guarding or rigidity. EXTREMITIES: No clubbing, no edema, no cyanosis, 2+ pulses and upper and lower extremities. MUSCULOSKELETAL: Muscle strength and tone normal. SPINE: No scoliosis or deformity SKIN: No rashes CENTRAL NERVOUS SYSTEM: Alert and oriented -3. No focal deficits, tone is normal in all 4 extremities. PSYCHIATRIC: Alert and oriented -3. Appropriate affect. Intact judgment and insight. - Labs CBC & Chem 7: 07/05/18 09:34 07/05/18 09:34 Labs: Abnormal Lab Results - Last 24 Hours (Table) 06/29/18 07/02/18 07/04/18 Range/Units 03:30 12:08 16:56 WBC (3.8-10.6) k/uL RBC (4.30-5.90) m/uL Hgb (13.0-17.5) gm/dL Hct (39.0-53.0) % MCV (80.0-100.0) fL RDW (11.5-15.5) % Plt Count (150-450) k/uL Neutrophils # (1.3-7.7) k/uL Lymphocytes # (1.0-4.8) k/uL Sodium (137-145) mmol/L Chloride 114 H (98-107) mmol/L Carbon Dioxide 18 L (22-30) mmol/L BUN (9-20) mg/dL Creatinine (0.66-1.25) mg/dL Glucose (74-99) mg/dL POC Glucose (mg/dL) (75-99) mg/dL Calcium (8.4-10.2) mg/dL Methylmalonic Acid 0.63 H (<0.40) umol/L Crossmatch See Detail 07/05/18 07/05/18 07/05/18 Range/Units 09:34 09:34 13:19 WBC 11.7 H (3.8-10.6) k/uL RBC 2.49 L (4.30-5.90) m/uL Hgb 8.4 L (13.0-17.5) gm/dL Hct 26.1 L (39.0-53.0) % MCV 104.7 H (80.0-100.0) fL RDW 19.6 H (11.5-15.5) % Plt Count 85 L D (150-450) k/uL Neutrophils # 10.2 H (1.3-7.7) k/uL Lymphocytes # 0.6 L (1.0-4.8) k/uL Sodium 147 H (137-145) mmol/L Chloride 116 H (98-107) mmol/L Carbon Dioxide 17 L (22-30) mmol/L BUN 78 H (9-20) mg/dL Creatinine 5.63 H (0.66-1.25) mg/dL Glucose 55 L (74-99) mg/dL POC Glucose (mg/dL) 66 L (75-99) mg/dL Calcium 7.8 L (8.4-10.2) mg/dL Methylmalonic Acid (<0.40) umol/L Crossmatch 07/05/18 Range/Units 13:44 WBC (3.8-10.6) k/uL RBC (4.30-5.90) m/uL Hgb (13.0-17.5) gm/dL Hct (39.0-53.0) % MCV (80.0-100.0) fL RDW (11.5-15.5) % Plt Count (150-450) k/uL Neutrophils # (1.3-7.7) k/uL Lymphocytes # (1.0-4.8) k/uL Sodium (137-145) mmol/L Chloride (98-107) mmol/L Carbon Dioxide (22-30) mmol/L BUN (9-20) mg/dL Creatinine (0.66-1.25) mg/dL Glucose (74-99) mg/dL POC Glucose (mg/dL) 73 L (75-99) mg/dL Calcium (8.4-10.2) mg/dL Methylmalonic Acid (<0.40) umol/L Crossmatch Microbiology - Last 24 Hours (Table) 06/30/18 08:54 Blood Culture - Preliminary Blood No Growth after 120 hours 06/29/18 01:56 Blood Culture - Final Blood No Growth after 144 hours Assessment and Plan Plan: Assessment: #1. Acute hypoxemic respiratory failure requiring intubation and mechanical ventilation for staph pneumonia, and the sputum culture showed staph was sensitive to oxacillin. She was intubated on June 30, and successfully extubated on July 03 #2. Astelin tract infection #3. Metabolic acidosis and hypotension secondary to septic shock, resolved #4. History of acute kidney injury #5. Gastrointestinal bleeding, status post 2 units of PRBCs #6. History of hypothyroidism #7. CODE STATUS #8. Thrombocytopenia Plan: Continue antibiotics per ID service recommendation. Continue aspiration precautions, patient remains nothing by mouth at this time, he has failed a swallow evaluation. We'll add IV Solu-Medrol 40 every 8 hours, continue with nebulized bronchodilators. Encourage patient to set up in the chair, encourage deep breathing and coughing clear of secretions. We'll continue to follow I performed a history & physical examination of the patient and discussed their management with my nurse practitioner, Ashley Vigil. I reviewed the nurse practitioner's note and agree with the documented findings and plan of care. Lung sounds are positive for diffuse rhonchi throughout the lung yi. The findings and the impression was discussed with the patient. I attest to the documentation by the nurse practitioner. Time with Patient: Less than 30
[2018-07-05 15:25] LABS: Anisocytosis Moderate; Basophils % (A) 0 %; Eosinophils # (A) 0.3 k/uL (0-0.7); Eosinophils % (A) 2 %; HCT 27.2 % (39.0-53.0); HGB 8.9 gm/dL (13.0-17.5); Hypochromasia Moderate; Lymphocytes # (A) 0.3 k/uL (1.0-4.8); Lymphocytes % (A) 2 %; MCH 34.4 pg (25.0-35.0); MCHC 32.6 g/dL (31.0-37.0); MCV 105.5 fL (80.0-100.0); Macrocytosis Marked; Mean Platelet Volume 9.8; Monocytes # (A) 0.4 k/uL (0-1.0); Monocytes % (A) 2 %; Neutrophils # (A) 13.7 k/uL (1.3-7.7); Neutrophils % (A) 93 %; Poikilocytosis Slight; RBC 2.58 m/uL (4.30-5.90); RDW 20.1 % (11.5-15.5); WBC 14.8 k/uL (3.8-10.6)
[2018-07-05 15:27] LABS: Platelet Count 99 k/uL (150-450)
[2018-07-05 15:48] LABS: Calcium 8.3 mg/dL (8.4-10.2); Potassium 4.8 mmol/L (3.5-5.1)
--- NOTE | 2018-07-05 15:53 | P.PN ---
Subjective Progress Note Date: 07/05/18 Principal diagnosis: anemia, thrombocytopenia In follow-up today patient continues to have a hoarse voice, cough is congested, he states his expectoration is decreased, no hemoptysis, no fever, nausea, bleeding or pain Objective - Vital Signs Vital signs: Vital Signs Temp 97.3 F L 07/05/18 13:22 Pulse 85 07/05/18 15:23 Resp 16 07/05/18 15:23 BP 158/80 07/05/18 13:22 Pulse Ox 97 07/05/18 13:22 Intake & Output 07/04/18 07/05/18 07/05/18 18:59 06:59 18:59 Intake Total 967.263 200 Output Total 385 1800 320 Balance 582.263 -1800 -120 Weight 74 kg Intake: IV 723 200 Arterial line 0.9 18 Calcium Gluconate 1 gm In 100 Sodium Chloride 0.9% 100 ml @ 100 mls/hr IVPB BID [facility] Rx#:[id number] Calcium Gluconate 2 gm In 100 Sodium Chloride 0.9% 100 ml @ 100 mls/hr IVPB ONCE ONE Rx#:[id number] Magnesium Sulfate-D5w Pmx 200 1 gm In Dextrose/Water 1 100ml.bag @ 100 mls/hr IVPB Q1H [facility] Rx#: [id number] Potassium Chloride 20 meq 200 In Water For Injection 1 100ml.bag @ 50 mls/hr IVPB Q2H [facility] Rx#: [id number] Sodium Chloride 0.45% 1, 105 000 ml @ 75 mls/hr IV . [id number] [facility] Rx#:[id number] Sodium Ferric Gluconat- 100 Sucrose 125 mg In Sodium Chloride 0.9% 100 ml @ 100 mls/hr IVPB DAILY [facility] Rx#:[id number] carrier IV .9%NS 100 Intake, IV Titration 244.263 Amount Norepinephrine 32 mg In 244.263 Sodium Chloride 0.9% 218 ml @ 0.05 MCG/KG/MIN 1. 617 mls/hr IV .Q24H [facility] Rx#:[id number] Output: Urine 385 900 320 Stool 900 Other: Voiding Method Indwelling Catheter Urinal # Voids 1 ABP, PAP, CO, CI - Last Documented Arterial Blood Pressure 158/56 - Constitutional General appearance: Present: average body habitus, cooperative, no acute distress - EENT Eyes: Present: anicteric sclerae, EOMI ENT: Present: hearing grossly normal - Respiratory Respiratory: bilateral: rhonchi, wheezing - Cardiovascular Heart sounds: normal: S1, S2 - Peripheral edema leg Peripheral Edema: bilateral: None - Gastrointestinal General gastrointestinal: Present: normal bowel sounds, soft - Neurologic Neurologic: Present: CNII-XII intact - Musculoskeletal Musculoskeletal: Present: generalized weakness - Psychiatric Psychiatric Comment(s): Unsure if patient is grasping what has recently happened to him, he seems suspicious, he stated "what are you coming to tell me?", When I mentioned his blood counts he seemed confused, he doesn't remember most of his hospital stay, he was intubated and sedated. Psychiatric: Present: A&O x's 3 - Labs CBC & Chem 7: 07/05/18 15:06 07/05/18 09:34 Labs: Abnormal Lab Results - Last 24 Hours (Table) 06/29/18 07/02/18 07/04/18 Range/Units 03:30 12:08 16:56 WBC (3.8-10.6) k/uL RBC (4.30-5.90) m/uL Hgb (13.0-17.5) gm/dL Hct (39.0-53.0) % MCV (80.0-100.0) fL RDW (11.5-15.5) % Plt Count (150-450) k/uL Neutrophils # (1.3-7.7) k/uL Lymphocytes # (1.0-4.8) k/uL Sodium (137-145) mmol/L Chloride 114 H (98-107) mmol/L Carbon Dioxide 18 L (22-30) mmol/L BUN (9-20) mg/dL Creatinine (0.66-1.25) mg/dL Glucose (74-99) mg/dL POC Glucose (mg/dL) (75-99) mg/dL Calcium (8.4-10.2) mg/dL Methylmalonic Acid 0.63 H (<0.40) umol/L Crossmatch See Detail 07/05/18 07/05/18 07/05/18 Range/Units 09:34 09:34 13:19 WBC 11.7 H (3.8-10.6) k/uL RBC 2.49 L (4.30-5.90) m/uL Hgb 8.4 L (13.0-17.5) gm/dL Hct 26.1 L (39.0-53.0) % MCV 104.7 H (80.0-100.0) fL RDW 19.6 H (11.5-15.5) % Plt Count 85 L D (150-450) k/uL Neutrophils # 10.2 H (1.3-7.7) k/uL Lymphocytes # 0.6 L (1.0-4.8) k/uL Sodium 147 H (137-145) mmol/L Chloride 116 H (98-107) mmol/L Carbon Dioxide 17 L (22-30) mmol/L BUN 78 H (9-20) mg/dL Creatinine 5.63 H (0.66-1.25) mg/dL Glucose 55 L (74-99) mg/dL POC Glucose (mg/dL) 66 L (75-99) mg/dL Calcium 7.8 L (8.4-10.2) mg/dL Methylmalonic Acid (<0.40) umol/L Crossmatch 07/05/18 07/05/18 Range/Units 13:44 15:06 WBC 14.8 H (3.8-10.6) k/uL RBC 2.58 L (4.30-5.90) m/uL Hgb 8.9 L (13.0-17.5) gm/dL Hct 27.2 L (39.0-53.0) % MCV 105.5 H (80.0-100.0) fL RDW 20.1 H (11.5-15.5) % Plt Count 99 L (150-450) k/uL Neutrophils # 13.7 H (1.3-7.7) k/uL Lymphocytes # 0.3 L (1.0-4.8) k/uL Sodium (137-145) mmol/L Chloride (98-107) mmol/L Carbon Dioxide (22-30) mmol/L BUN (9-20) mg/dL Creatinine (0.66-1.25) mg/dL Glucose (74-99) mg/dL POC Glucose (mg/dL) 73 L (75-99) mg/dL Calcium (8.4-10.2) mg/dL Methylmalonic Acid (<0.40) umol/L Crossmatch Microbiology - Last 24 Hours (Table) 06/30/18 08:54 Blood Culture - Preliminary Blood No Growth after 120 hours 06/29/18 01:56 Blood Culture - Final Blood No Growth after 144 hours Assessment and Plan (1) Thrombocytopenia Narrative/Plan: Plt improved today at 90,000. CBC daily. Transfused for platelet count less than 10,000 or if patient is symptomatic. On chart review mild thrombocytopenia noted intermittently over the last several years. 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 Exacerbation of the thrombocytopenia related to acute illness. Anticipate resolution to baseline with treatment of infection. Current Visit: Yes Status: Acute Priority: High Code(s): D69.6 - THROMBOCYTOPENIA, UNSPECIFIED SNOMED Code(s): 844969176 (2) Macrocytic anemia Narrative/Plan: Anemia workup showing iron deficiency. Parenteral iron x 2 doses, oral iron Erx for discharge. Recommend f/u with Nephrology who has started pt on aranesp. He can be referred back to Hematology on an as-needed basis No plans for endoscopy acutely. Suspect related to EtOH marrow damage, exacerbated by acute illness as contributing factor. Transfuse for hemoglobin less than 7 or if symptomatic. Current Visit: Yes Status: Acute Priority: Medium Code(s): D53.9 - NUTRITIONAL ANEMIA, UNSPECIFIED SNOMED Code(s): 93979383
--- NOTE | 2018-07-05 16:53 | P.PN ---
Subjective This is a pleasant 68 years old male with past medical history of hypertension and pancreatitis, status post ERCP and bile duct stent with cholecystitis, alcohol abuse. Presents because of dyspnea of one week duration getting worsened over the last 3-4 days duration. With no chest pain, no nausea vomiting. The patient says he has a lot of is patent. He has harsh breath sounds that looks like weight. He has bilateral leg swelling. Patient looks tired and weak On admission his hemoglobin is 8.1, platelets 81, WBC 7.7. INR 1.0, sodium 142, creatinine 4.8, baseline creatinine 1.5-2.0. TSH 8.7, free T4 is low at 0.47. Urinalysis suspicious for infection. He is status post 2 units of blood transfusion . Chest x-ray showing mild pulmonary congestion as per radiologist's report. FOBT is positive. EKG shows sinus bradycardia at 59 with QTC is 522. 06/30/2018 patient today become more hypotensive and hypothermic.when I saw the patient early this morning he was more awake however his blood pressure was 98/60s . he developed leukocytosis, his hemoglobin was 9.9,his creatinine went up to 6.3, potassium 5.5, glucose was 129, lactic acid less than 0.5,ABG showing pH of 7.0 patient has been transferred to the intensive care unit, where he got intubated and central line was placed, patient was started on pressors.patient developed probably acute tubular necrosis and acute renal failure secondary to hypotension and septic shock, and nephrology consult has been called. There is air this morning patient was complaining of from chest pressure, cartilage team has been consulted. Troponins were negative. 07/01/2018 Patient remains in the ICU intubated and sedated. His chest x-ray showing pneumonia today which wasn't obvious and the first chest x-ray. His leukocytosis is improved from 15.5 down to 12.7 K. Platelets is trending down 81 down to 59. Sugar controlled. Creatinine slightly improved from 6.3 down to 5.8. His urine output about 30 mL/h. He has low calcium which is replaced. PH 7.3 which is improved from yesterday. INR is 1.0. Influenza is negative. Sputum culture is growing staph aureus. Blood culture no growth after 24 hours. Urine culture is in the process. Discussed the findings with the infectious disease team. He is currently on clindamycin and livofloxacin. Enteric feeding started today through NG tube. He remains on pressors needing 12.5 mics of norepinephrine. Patient remains critically ill. 07/02/2018 Patient remains in the ICU, his needing minimal amount of epinephrine drip, most likely is is going to be stopped today. Patient currently blood pressure is 106/44. Patient remains hypothermic with temperature 90.6 and he is on bear hugg. His culture and sputum is growing staph aureus, with final results are still pending. Patient is currently on clindamycin and Levaquin, recommended by infectious disease specialist. Patient bicarb drip was stopped and remains on oral bicarb. Patient is making about 30 mL per hour and his creatinine is 5.7. He has low calcium which is been replaced. Patient is still intubated, possible sedation holiday. Patient is minimally responsive to tactile and verbal stimuli. Patient has been followed by several consultants including pulmonary/critical care, infectious disease, GI, and cereal chemist. Patient remains in critical condition 07/03/2018 Patient remains in the ICU, his of pressors currently. Hemodynamically impr oving. His oxygenation status is also improving and they were trying to wean him today. Patient is awake and he is been doing a lot of phlegm and secretions through the section of tube. Patient had hypothermia looks improved over the last 24 hours with no more such episodes. WBC came back to normal and his culture is growing MSSA, infectious disease input is appreciated and they switched his clindamycin to Ancef. His hematological picture which shows some external damage exacerbated by acute illness based upon hematological evaluation. His creatinine is slightly improved 5.7 down to 5.6. His sodium making about 30 mL/h urine output, patient has been followed by several consultants including critical care he units, cereal chemist, dye reel operator helper, community outreach coordinator. Prognosis remains guarded 07/04/2018 Patient remains in the ICU, no more on the pressors. He got extubated. He still dyspneic however improving gradually. Swallow evaluation done today showing patient have some subtle problem and we are going to order a swallow test. His creatinine is improved slightly to 4.4, similar to what he presented with. [place] Cut[employer] Machine Operator team thinking it might be some elements of mammary nephritis versus other and they recommended biopsy prior To discharge. Patient also with proteinuria. His urine output is around 30 mL/h. He remains on antibiotic for staph aureus, MSSA pneumonia 07/05/2018 Admission was moved out of the ICU to the general medical floor. Patient failed swallow evaluation to great extent. Also was complaining of from hoarseness of voice. Will call ENT evaluation. Also we'll ask for gastroenterology evaluation. Patient denies any chest pain. No headache. No dyspnea. No weakness on upper or lower extremity. No abnormal sensation. no Blurred vision, no difficulty speaking. No dizziness or vertigo. Vital signs stable. His leukocytosis is slightly up to 14.8 K. Hemoglobin 8.9. Platelets improved 99. Hypernatremia 148, D5 half normal saline was started. And we'll check sodium levels tomorrow. Creatinine 5.7. [place] [employer] Operator team R following the case closely. Antibiotics as per infectious disease team review of system: CONSTITUTIONAL: No fever, no malaise, no fatigue. HEENT: No recent visual problems or hearing problems. Denied any sore throat. CARDIOVASCULAR: No orthopnea, PND, no palpitations, no syncope. PULMONARY: No shortness of breath, no cough, no hemoptysis. GASTROINTESTINAL: No diarrhea, no nausea, no vomiting, no abdominal pain. Normoactive bowel sounds. NEUROLOGICAL: No headaches, no weakness, no numbness. HEMATOLOGICAL: Denies any bleeding or petechiae. GENITOURINARY: Denies any burning micturition, frequency, or urgency. MUSCULOSKELETAL/RHEUMATOLOGICAL: Denies any joint pain, swelling, or any muscle pain. ENDOCRINE: Denies any polyuria or polydipsia. medication: Albuterol, ceftriaxone, Ancef , levothyroxine, norepinephrine, Protonix, livofloxacin. Objective - Vital Signs Vital signs: Vital Signs Temp 97.3 F L 07/05/18 13:22 Pulse 85 07/05/18 15:23 Resp 16 07/05/18 15:23 BP 158/80 07/05/18 13:22 Pulse Ox 97 07/05/18 13:22 Intake & Output 07/04/18 07/05/18 07/05/18 18:59 06:59 18:59 Intake Total 967.263 200 Output Total 385 1800 320 Balance 582.263 -1800 -120 Weight 74 kg Intake: IV 723 200 Arterial line 0.9 18 Calcium Gluconate 1 gm In 100 Sodium Chloride 0.9% 100 ml @ 100 mls/hr IVPB BID [facility] Rx#:[id number] Calcium Gluconate 2 gm In 100 Sodium Chloride 0.9% 100 ml @ 100 mls/hr IVPB ONCE ONE Rx#:[id number] Magnesium Sulfate-D5w Pmx 200 1 gm In Dextrose/Water 1 100ml.bag @ 100 mls/hr IVPB Q1H [facility] Rx#: [id number] Potassium Chloride 20 meq 200 In Water For Injection 1 100ml.bag @ 50 mls/hr IVPB Q2H [facility] Rx#: [id number] Sodium Chloride 0.45% 1, 105 000 ml @ 75 mls/hr IV . [id number] [facility] Rx#:[id number] Sodium Ferric Gluconat- 100 Sucrose 125 mg In Sodium Chloride 0.9% 100 ml @ 100 mls/hr IVPB DAILY [facility] Rx#:[id number] carrier IV .9%NS 100 Intake, IV Titration 244.263 Amount Norepinephrine 32 mg In 244.263 Sodium Chloride 0.9% 218 ml @ 0.05 MCG/KG/MIN 1. 617 mls/hr IV .Q24H [facility] Rx#:[id number] Output: Urine 385 900 320 Stool 900 Other: Voiding Method Indwelling Catheter Urinal # Voids 1 ABP, PAP, CO, CI - Last Documented Arterial Blood Pressure 158/56 - Exam -GENERAL: patient is intubated and sedated HEENT: Pupils are round and equally reacting to light. EOMI. No scleral icterus. No conjunctival pallor. Normocephalic, atraumatic. No pharyngeal erythema. No thyromegaly. CARDIOVASCULAR: S1 and S2 present. No murmurs, rubs, or gallops. -PULMONARY: Chest is clear to auscultation, no wheezing . Bilateral course crackles. ABDOMEN: Soft, nontender, nondistended, normoactive bowel sounds. No palpable organomegaly. MUSCULOSKELETAL: No joint swelling or deformity. -EXTREMITIES: No cyanosis, clubbing, . Bilateral leg edema NEUROLOGICAL: Gross neurological examination did not reveal any focal deficits. SKIN: No rashes. - Labs CBC & Chem 7: 07/05/18 15:06 07/05/18 15:06 Labs: Abnormal Lab Results - Last 24 Hours (Table) 06/29/18 07/02/18 07/04/18 Range/Units 03:30 12:08 16:56 WBC (3.8-10.6) k/uL RBC (4.30-5.90) m/uL Hgb (13.0-17.5) gm/dL Hct (39.0-53.0) % MCV (80.0-100.0) fL RDW (11.5-15.5) % Plt Count (150-450) k/uL Neutrophils # (1.3-7.7) k/uL Lymphocytes # (1.0-4.8) k/uL Sodium (137-145) mmol/L Chloride 114 H (98-107) mmol/L Carbon Dioxide 18 L (22-30) mmol/L BUN (9-20) mg/dL Creatinine (0.66-1.25) mg/dL Glucose (74-99) mg/dL POC Glucose (mg/dL) (75-99) mg/dL Calcium (8.4-10.2) mg/dL Methylmalonic Acid 0.63 H (<0.40) umol/L Crossmatch See Detail 07/05/18 07/05/18 07/05/18 Range/Units 09:34 09:34 13:19 WBC 11.7 H (3.8-10.6) k/uL RBC 2.49 L (4.30-5.90) m/uL Hgb 8.4 L (13.0-17.5) gm/dL Hct 26.1 L (39.0-53.0) % MCV 104.7 H (80.0-100.0) fL RDW 19.6 H (11.5-15.5) % Plt Count 85 L D (150-450) k/uL Neutrophils # 10.2 H (1.3-7.7) k/uL Lymphocytes # 0.6 L (1.0-4.8) k/uL Sodium 147 H (137-145) mmol/L Chloride 116 H (98-107) mmol/L Carbon Dioxide 17 L (22-30) mmol/L BUN 78 H (9-20) mg/dL Creatinine 5.63 H (0.66-1.25) mg/dL Glucose 55 L (74-99) mg/dL POC Glucose (mg/dL) 66 L (75-99) mg/dL Calcium 7.8 L (8.4-10.2) mg/dL Methylmalonic Acid (<0.40) umol/L Crossmatch 07/05/18 07/05/18 07/05/18 Range/Units 13:44 15:06 15:06 WBC 14.8 H (3.8-10.6) k/uL RBC 2.58 L (4.30-5.90) m/uL Hgb 8.9 L (13.0-17.5) gm/dL Hct 27.2 L (39.0-53.0) % MCV 105.5 H (80.0-100.0) fL RDW 20.1 H (11.5-15.5) % Plt Count 99 L (150-450) k/uL Neutrophils # 13.7 H (1.3-7.7) k/uL Lymphocytes # 0.3 L (1.0-4.8) k/uL Sodium 148 H (137-145) mmol/L Chloride 117 H (98-107) mmol/L Carbon Dioxide 14 L (22-30) mmol/L BUN 77 H (9-20) mg/dL Creatinine 5.71 H (0.66-1.25) mg/dL Glucose 102 H (74-99) mg/dL POC Glucose (mg/dL) 73 L (75-99) mg/dL Calcium 8.3 L (8.4-10.2) mg/dL Methylmalonic Acid (<0.40) umol/L Crossmatch Microbiology - Last 24 Hours (Table) 06/30/18 08:54 Blood Culture - Preliminary Blood No Growth after 120 hours 06/29/18 01:56 Blood Culture - Final Blood No Growth after 144 hours Assessment and Plan Assessment: septic shock, resolved Aspiration pneumonia Dysphagia. With hoarseness of voice. GI and ENT consult ordered Possible GI bleed, Urinary tract infection Acute kidney injury Chronic kidney disease stage III Hypothyroidism Essential hypertension History of pancreatitis History of acute cholecystitis History of bilateral stones status post biliary stent Plan: patient's was sent to the ICU. He got intubated and started on a process. Several consults R following the case including critical/pulmonary care team. [employer] [place] [employer] Machine Operator. Patient was started on clindamycin and levofloxacin for possible urinary tract infection and pneumonia. However infectious disease consult for is appreciated to optimize his antibiotic therapy follow-up culture results. GI and cardiology team R following the case as well.DVT and GI prophylaxis. Monitor labs and vitals. Continue with the current medication. Further recommendations based on the clinical course of the patient Patient is in critical condition and prognosis is guarded
--- NOTE | 2018-07-05 16:58 | FL ---
MODIFIED SWALLOW / DEGLUTITION STUDY DATE OF EXAM: 07/05/2018 CLINICAL HISTORY: 68-year-old male gurgling and coughing after extubation. Rule out aspiration. TECHNIQUE: Deglutition study is performed utilizing thin liquid barium, honey and nectar thick liqui d barium, barium thick applesauce, and barium coated cracker. Total fluoroscopy time: 1 minute 18 seconds. Total images: None. Real-time fluoroscopy support was provided to speech pathology. COMPARISON: None. FINDINGS: There is howard large amount of aspiration with thin liquids. No aspiration seen with chin tuck maneuv er and pureed consistencies. Occasional flash penetration is demonstrated. However, repeat aspiration is demonstrated with honey liquid consistencies. The exam was terminated at this point. ACDF is pres ent. IMPRESSION: 1. Large amount of howard aspiration with thin liquids. Aspiration also seen with honey thickened liqu ids. 2. Pureed consistency with chin tuck maneuver reveals only occasional flash penetration but no aspira tion. Please refer to speech therapist notes for further details if necessary.
--- NOTE | 2018-07-05 17:08 | PN ---
PROGRESS NOTE Patient is seen for followup for acute kidney injury. He has been transferred out of the ICU. Renal function had improved, with serum creatinine at 4.48 yesterday. However, this morning it was up to 5.6 again. Patient has an indwelling Zhu catheter with 24-hour urine output of about 2.1 liters. His blood pressure has not been significantly low. Patient is maintained on half-normal saline at about 50 mL/hour. On examination this morning, blood pressure was 160/74, heart rate of 98 per minute. Patient is afebrile. EXAMINATION OF THE HEART: S1 and S2. EXAMINATION OF LUNGS: Bilateral breath sounds are heard. Decreased breath sounds in bases. ABDOMEN: Soft, non-tender. Examination of lower extremities shows no significant edema. OCCUPATIONAL THERAPY ASST exam is grossly intact. Patient is moving all 4 extremities. Labs show hemoglobin 8.9, sodium of 148, potassium 4.8, BUN 77, serum creatinine 5.7. Chest x-ray from yesterday showed possible CHF. ASSESSMENT: 1. Acute kidney injury. Acute tubular necrosis versus acute GN, currently nonoliguric. Serum creatinine is higher from yesterday. Patient remains on IV fluids. He continues to have a Zhu catheter. His blood pressure has not dropped. Given his low complements and presence of proteinuria of about 1.5 grams, I would proceed with a kidney biopsy. 2. Status post acute hypoxic respiratory failure. 3. Staphylococcus aureus pneumonia. 4. Hypocalcemia secondary to primary nutritional vitamin D deficiency and from chronic kidney disease, maintained on calcium supplements. We will start vitamin D supplementation when patient is able to take p.o. Hectorol is available IV; however, it is not available in the hospital. Once the patient is eating, we can resume the in the meantime we will continue with calcium supplementation. 5. Hypernatremia associated with free water deficit, maintained on half-normal saline. I will switch the IV fluids to D5W. 6. Iron deficiency, maintained on IV iron. 7. Thrombocytopenia from sepsis as well as previous history of ethanol abuse. PLAN: Change IV fluids to D5W. Repeat labs in a.m. Plan for kidney biopsy early next week. Patient is not on any aspirin currently. MMODL / IJN: [id number] /
[2018-07-05] MEDS: DEXTROSE 5% IN WATER 1,000 ML with SODIUM BICARB (1 MEQ/ML) 150 ML IV SCH (17:09)
--- NOTE | 2018-07-05 17:36 | PN ---
PROGRESS NOTE ADDENDUM TO PROGRESS NOTE: Patient also has metabolic acidosis, which is actually worse, as he has not been able to take his oral sodium bicarb. I will switch his IV fluids to IV bicarb for now. MMDIANE / IJN: [id number] /
--- NOTE | 2018-07-05 21:22 | P.PN ---
Subjective Progress Note Date: 07/05/18 Principal diagnosis: Anemia, history of chronic pancreatitis Patient is seen lying in bed today. No nausea, vomiting or signs or symptoms of GI bleeding reported. The patient went for swallow evaluation today which she failed. Objective - Vital Signs Vital signs: Vital Signs Temp 97.5 F L 07/05/18 21:15 Pulse 93 07/05/18 21:15 Resp 18 07/05/18 21:15 BP 146/81 07/05/18 21:15 Pulse Ox 95 07/05/18 21:15 Intake & Output 07/05/18 07/05/18 07/06/18 06:59 18:59 06:59 Intake Total 200 Output Total 1800 320 Balance -1800 -120 Weight 74 kg Intake: IV 200 Calcium Gluconate 1 gm In 100 Sodium Chloride 0.9% 100 ml @ 100 mls/hr IVPB BID [facility] Rx#:[id number] Sodium Ferric Gluconat- 100 Sucrose 125 mg In Sodium Chloride 0.9% 100 ml @ 100 mls/hr IVPB DAILY [facility] Rx#:[id number] Output: Urine 900 320 Stool 900 Other: Voiding Method Urinal # Voids 1 ABP, PAP, CO, CI - Last Documented Arterial Blood Pressure 158/56 - Exam On physical examination, patient appears comfortable in no apparent distress. HEAD: Normocephalic, atraumatic. EYES: No scleral icterus. No conjunctival injection. MOUTH: No lesions, tongue midline. NECK: Trachea midline, no gross abnormalities. CHEST: Coarse respiratory noises in all lung yi. HEART: Regular rate and rhythm. ABDOMEN: Soft, obese. Bowel sounds are positive. No organomegaly. No guarding or rigidity. EXTREMITIES: No pedal edema. SKIN: No rashes, no jaundice. NEUROLOGIC: Awake and alert. - Labs CBC & Chem 7: 07/05/18 15:06 07/05/18 15:06 Labs: Abnormal Lab Results - Last 24 Hours (Table) 07/02/18 07/05/18 07/05/18 Range/Units 12:08 09:34 09:34 WBC 11.7 H (3.8-10.6) k/uL RBC 2.49 L (4.30-5.90) m/uL Hgb 8.4 L (13.0-17.5) gm/dL Hct 26.1 L (39.0-53.0) % MCV 104.7 H (80.0-100.0) fL RDW 19.6 H (11.5-15.5) % Plt Count 85 L D (150-450) k/uL Neutrophils # 10.2 H (1.3-7.7) k/uL Lymphocytes # 0.6 L (1.0-4.8) k/uL Sodium 147 H (137-145) mmol/L Chloride 116 H (98-107) mmol/L Carbon Dioxide 17 L (22-30) mmol/L BUN 78 H (9-20) mg/dL Creatinine 5.63 H (0.66-1.25) mg/dL Glucose 55 L (74-99) mg/dL POC Glucose (mg/dL) (75-99) mg/dL Calcium 7.8 L (8.4-10.2) mg/dL Methylmalonic Acid 0.63 H (<0.40) umol/L 07/05/18 07/05/18 07/05/18 Range/Units 13:19 13:44 15:06 WBC 14.8 H (3.8-10.6) k/uL RBC 2.58 L (4.30-5.90) m/uL Hgb 8.9 L (13.0-17.5) gm/dL Hct 27.2 L (39.0-53.0) % MCV 105.5 H (80.0-100.0) fL RDW 20.1 H (11.5-15.5) % Plt Count 99 L (150-450) k/uL Neutrophils # 13.7 H (1.3-7.7) k/uL Lymphocytes # 0.3 L (1.0-4.8) k/uL Sodium (137-145) mmol/L Chloride (98-107) mmol/L Carbon Dioxide (22-30) mmol/L BUN (9-20) mg/dL Creatinine (0.66-1.25) mg/dL Glucose (74-99) mg/dL POC Glucose (mg/dL) 66 L 73 L (75-99) mg/dL Calcium (8.4-10.2) mg/dL Methylmalonic Acid (<0.40) umol/L 07/05/18 Range/Units 15:06 WBC (3.8-10.6) k/uL RBC (4.30-5.90) m/uL Hgb (13.0-17.5) gm/dL Hct (39.0-53.0) % MCV (80.0-100.0) fL RDW (11.5-15.5) % Plt Count (150-450) k/uL Neutrophils # (1.3-7.7) k/uL Lymphocytes # (1.0-4.8) k/uL Sodium 148 H (137-145) mmol/L Chloride 117 H (98-107) mmol/L Carbon Dioxide 14 L (22-30) mmol/L BUN 77 H (9-20) mg/dL Creatinine 5.71 H (0.66-1.25) mg/dL Glucose 102 H (74-99) mg/dL POC Glucose (mg/dL) (75-99) mg/dL Calcium 8.3 L (8.4-10.2) mg/dL Methylmalonic Acid (<0.40) umol/L Microbiology - Last 24 Hours (Table) 06/30/18 08:54 Blood Culture - Preliminary Blood No Growth after 120 hours 06/29/18 01:56 Blood Culture - Final Blood No Growth after 144 hours Assessment and Plan (1) Macrocytic anemia Narrative/Plan: Patient with findings of macrocytic anemia on laboratory evaluation. No signs or symptoms of GI bleeding. The patient is having frequent stools with no hematochezia or melena reported. Hemoglobin remained stable. Macrocytic i ndices. Current Visit: Yes Status: Acute Priority: Medium Code(s): D53.9 - NUTRITIONAL ANEMIA, UNSPECIFIED SNOMED Code(s): 69965966 (2) Pancreatitis Narrative/Plan: History of chronic pancreatitis. Current Visit: No Status: Acute Code(s): K85.9 - ACUTE PANCREATITIS, UNSPECIFIED * DO NOT USE * SNOMED Code(s): 82582168 (3) Oropharyngeal dysphagia Narrative/Plan: Patient to denies any problem swallowing prior to hospitalization, now failing speech and bedside swallow evaluation, likely secondary to acute illness and recent intubation. Current Visit: Yes Status: Acute Code(s): R13.12 - DYSPHAGIA, OROPHARYNGEAL PHASE SNOMED Code(s): 90972334 Plan: Supportive care Okay for diet after patient passed a swallow evaluation Oropharyngeal dysphagia is acute in nature this patient denies any problems swallowing prior to presentation, however the patient has remained nothing by mouth and will need nutritional support with options including placement of an NG tube or Dobbhoff tube, total parenteral nutrition for PEG tube placement Continue to monitor stool output, testing for Clostridium difficile negative Continue to monitor hemoglobin and hematocrit and transfuse as needed Hematology service following the patient, at this point is felt that the patient's anemia is likely multifactorial secondary to nutritional deficiencies, toxic effect of alcohol, iron deficiency etc. Gastroenterology will continue to follow, thank you for allowing us to participate in the care of the patient
--- NOTE | 2018-07-05 23:05 | P.OP ---
Date of Procedure: 07/05/18 Preoperative Diagnosis: Hoarseness, dysphagia, aspiration Postoperative Diagnosis: same Procedure(s) Performed: Flexible nasopharyngolaryngoscopy Anesthesia: none Surgeon: Jarrell Palomo Estimated Blood Loss (ml): 0 Pathology: none sent Condition: stable Disposition: PACU Indications for Procedure: This patient developed severe dysphagia and aspiration and hoarseness after extubation. He failed a barium swallow and I've been asked to consult regarding this patient's dysphagia. 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 Swallow effort was poor. Bulbar palsy suspect. Large amount of oropharyngeal secretions are noted. Description of Procedure: This patient was placed in a upright position. An EF GP nasopharyngoscope was inserted into the patient's right nares with care to avoid any pain or discomfort during the procedure. We followed the floor the nose into the nasopharynx. There was some intranasal crusting from the nasal cannula. The nasopharynx showed a large amount of mucinous debris. 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 There is good vocal cord movement. Patient swallow effort is poor. Jarrell aspiration is observed. No tumors polyps or masses are noted.
--- NOTE | 2018-07-05 23:12 | P.GSCN ---
History of Present Illness Consult date: 07/05/18 Reason for Consult: Difficulty swallowing, aspiration, feels modified barium swallow Requesting physician: [place] E Sheet History of present illness: This is a 68-year-old white male who was intubated for respiratory distress for approximately 2-3 days. Since extubation the patient's having difficulty swallowing and severe hoarseness. A barium swallow was performed demonstrating aspiration freely. Chin tuck procedure did show some improvement. His voice is terrible and is minimally intelligible. He cannot raise his voice above a whisper. He denies any throat pain. Denies any focal neurologic dysfunction. He did have a previous cervical neurosurgical procedure but that was over 3-4 years ago and that was without any complications. He has not had any hemoptysis. He is frustrated as she cannot talk and swallow. Review of Systems - Constitutional Reports chills, Denies chronic headaches - EENT Ears, nose, mouth and throat: Denies bleeding gums - Cardiovascular Denies chest pain - Respiratory Reports cough - Gastrointestinal Denies belching - Genitourinary Denies dysuria - Musculoskeletal Denies frequent falls - Integumentary Denies acne - Neurological Reports as per HPI, Denies ataxia, Denies burning pain, Denies change in mentation, Denies change in smell/taste, Denies confusion, Denies convulsions, Denies double vision, Denies headaches, Denies loss of vision, Denies memory loss, Denies migraines - Psychiatric Reports anxiety Past Medical History Past Medical History: Hypertension Additional Past Medical History / Comment(s): Hx calculus of bile duct, acute cholecystitis, pancreatitis. History of Any Multi-Drug Resistant Organisms: None Reported Past Surgical History: Orthopedic Surgery Additional Past Surgical History / Comment(s): cervical surgery, bilateral cataract removal with lens implants, umbilical hernia as a baby, bile duct stent , ERCP, C3-6 plate Past Anesthesia/Blood Transfusion Reactions: No Reported Reaction Past Psychological History: No Psychological Hx Reported Smoking Status: Current every day smoker Past Alcohol Use History: Occasional Past Drug Use History: None Reported - Past Family History Father Family Medical History: Cancer Additional Family Medical History / Comment(s): Melanoma Mother Family Medical History: Cancer Additional Family Medical History / Comment(s): Breast cancer. Medications and Allergies Home Medications Medication Instructions Recorded Confirmed Type Metoprolol Tartrate [Lopressor] 12.5 mg PO BID #60 tab 12/31/14 06/29/18 Rx Ergocalciferol [Vitamin D2] 50,000 unit PO Q7D 06/29/18 06/29/18 History Magnesium Oxide [Mag-Ox] 400 mg PO DAILY 06/29/18 06/29/18 History Sodium Bicarbonate Tab 650 mg PO DAILY 06/29/18 06/29/18 History amLODIPine BESYLATE [Norvasc] 10 mg PO DAILY 06/29/18 06/29/18 History Ferrous Sulfate [Feosol] 325 mg PO DAILY #30 tab 07/04/18 Rx Allergies Allergy/AdvReac Type Severity Reaction Status Date / Time No Known Allergies Allergy Verified 06/29/18 10:05 Surgical - Exam Osteopathic Statement: *. No significant issues noted on an osteopathic structural exam other than those noted in the History and Physical/Consult. Vital Signs Pulse Resp BP 62 20 88/46 06/29/18 01:14 06/29/18 01:14 06/29/18 01:14 - General well developed, well nourished, no distress, chronically ill - Eyes PERRL, normal ocular movement - ENT Head is normocephalic the face is symmetric. There are no tumors or masses of the scalp. Auricles are well-formed canals are clear the tympanic members are without bulging or retraction. Nose shows intranasal crusting from the nasal cannula oxygen. Mouth and throat very dry patient has a large amount of oral secretions. No tumors or masses. Neck is unremarkable. normal pinna, normal nares, normal mucosa, no hearing loss, no congestion - Neck no masses, no bruits, trachea midline - Integumentary no rash - Neurologic normal coordination, normal sensation - Musculoskeletal normal gait - Psychiatric oriented to time, oriented to person, oriented to place Results - Labs 07/05/18 15:06 07/05/18 15:06 Abnormal Lab Results - Last 24 Hours (Table) 07/02/18 07/05/18 07/05/18 Range/Units 12:08 09:34 09:34 WBC 11.7 H (3.8-10.6) k/uL RBC 2.49 L (4.30-5.90) m/uL Hgb 8.4 L (13.0-17.5) gm/dL Hct 26.1 L (39.0-53.0) % MCV 104.7 H (80.0-100.0) fL RDW 19.6 H (11.5-15.5) % Plt Count 85 L D (150-450) k/uL Neutrophils # 10.2 H (1.3-7.7) k/uL Lymphocytes # 0.6 L (1.0-4.8) k/uL Sodium 147 H (137-145) mmol/L Chloride 116 H (98-107) mmol/L Carbon Dioxide 17 L (22-30) mmol/L BUN 78 H (9-20) mg/dL Creatinine 5.63 H (0.66-1.25) mg/dL Glucose 55 L (74-99) mg/dL POC Glucose (mg/dL) (75-99) mg/dL Calcium 7.8 L (8.4-10.2) mg/dL Methylmalonic Acid 0.63 H (<0.40) umol/L 07/05/18 07/05/18 07/05/18 Range/Units 13:19 13:44 15:06 WBC 14.8 H (3.8-10.6) k/uL RBC 2.58 L (4.30-5.90) m/uL Hgb 8.9 L (13.0-17.5) gm/dL Hct 27.2 L (39.0-53.0) % MCV 105.5 H (80.0-100.0) fL RDW 20.1 H (11.5-15.5) % Plt Count 99 L (150-450) k/uL Neutrophils # 13.7 H (1.3-7.7) k/uL Lymphocytes # 0.3 L (1.0-4.8) k/uL Sodium (137-145) mmol/L Chloride (98-107) mmol/L Carbon Dioxide (22-30) mmol/L BUN (9-20) mg/dL Creatinine (0.66-1.25) mg/dL Glucose (74-99) mg/dL POC Glucose (mg/dL) 66 L 73 L (75-99) mg/dL Calcium (8.4-10.2) mg/dL Methylmalonic Acid (<0.40) umol/L 07/05/18 Range/Units 15:06 WBC (3.8-10.6) k/uL RBC (4.30-5.90) m/uL Hgb (13.0-17.5) gm/dL Hct (39.0-53.0) % MCV (80.0-100.0) fL RDW (11.5-15.5) % Plt Count (150-450) k/uL Neutrophils # (1.3-7.7) k/uL Lymphocytes # (1.0-4.8) k/uL Sodium 148 H (137-145) mmol/L Chloride 117 H (98-107) mmol/L Carbon Dioxide 14 L (22-30) mmol/L BUN 77 H (9-20) mg/dL Creatinine 5.71 H (0.66-1.25) mg/dL Glucose 102 H (74-99) mg/dL POC Glucose (mg/dL) (75-99) mg/dL Calcium 8.3 L (8.4-10.2) mg/dL Methylmalonic Acid (<0.40) umol/L Microbiology - Last 24 Hours (Table) 06/30/18 08:54 Blood Culture - Preliminary Blood No Growth after 120 hours 06/29/18 01:56 Blood Culture - Final Blood No Growth after 144 hours Diabetes panel 07/05/18 07/05/18 Range/Units 09:34 15:06 Sodium 147 H 148 H (137-145) mmol/L Potassium 4.6 4.8 (3.5-5.1) mmol/L Chloride 116 H 117 H (98-107) mmol/L Carbon Dioxide 17 L 14 L (22-30) mmol/L BUN 78 H 77 H (9-20) mg/dL Creatinine 5.63 H 5.71 H (0.66-1.25) mg/dL Glucose 55 L 102 H (74-99) mg/dL Calcium 7.8 L 8.3 L (8.4-10.2) mg/dL Calcium panel 07/05/18 07/05/18 Range/Units 09:34 15:06 Calcium 7.8 L 8.3 L (8.4-10.2) mg/dL Pituitary panel 07/05/18 07/05/18 Range/Units 09:34 15:06 Sodium 147 H 148 H (137-145) mmol/L Potassium 4.6 4.8 (3.5-5.1) mmol/L Chloride 116 H 117 H (98-107) mmol/L Carbon Dioxide 17 L 14 L (22-30) mmol/L BUN 78 H 77 H (9-20) mg/dL Creatinine 5.63 H 5.71 H (0.66-1.25) mg/dL Glucose 55 L 102 H (74-99) mg/dL Calcium 7.8 L 8.3 L (8.4-10.2) mg/dL Adrenal panel 07/05/18 07/05/18 Range/Units 09:34 15:06 Sodium 147 H 148 H (137-145) mmol/L Potassium 4.6 4.8 (3.5-5.1) mmol/L Chloride 116 H 117 H (98-107) mmol/L Carbon Dioxide 17 L 14 L (22-30) mmol/L BUN 78 H 77 H (9-20) mg/dL Creatinine 5.63 H 5.71 H (0.66-1.25) mg/dL Glucose 55 L 102 H (74-99) mg/dL Calcium 7.8 L 8.3 L (8.4-10.2) mg/dL Assessment and Plan (1) Acute laryngitis Current Visit: Yes Status: Acute Code(s): J04.0 - ACUTE LARYNGITIS SNOMED Code(s): 9839719 (2) Dysphasia Current Visit: Yes Status: Acute Code(s): R47.02 - DYSPHASIA SNOMED Code(s): 89459590 Plan: This patient has severe hoarseness which appears to be from a bilateral vocal cord hemorrhage and laryngitis. We do see good vocal cord movement and I think in time his vocal cord function will return. Some of the secretions have the appearance of yeast and Mycelex troches will be ordered. Regards to the patient's dysphagia, the patient appears to have a limited pharyngeal movement and evidence of a possible bulbar type palsy. I do recommend neurologic consultation. He does not have any focal neurologic symptoms but a neurologist is needed to rule out cerebrovascular accident. In addition I would've recommended imaging but he has a disc in his neck and an MRI is not able to be utilized. We also can utilize gadolinium or contrast dye for computed tomography scan. Therefore neurologic consultation is recommended to rule out bulbar palsy. Regarding his difficulty swallowing and aspiration, speech therapy and swallow therapy is definitely recommended. Until this resolves, feeding tube is highly recommended and the patient is to be nothing by mouth. He is a very high risk candidate for aspiration pneumonia. Thank you very much for alarming to participate in the care of this patient if I can be of any further service to you please do not hesitate to contact me. Best personal regards. Time with Patient: Greater than 30
[2018-07-06] MEDS: IPRATROPIUM-ALBUTEROL 3 ML NEB INHALATION SCH ×6 (03:28→23:18)
[2018-07-06] MEDS: methylPREDNISolone SOD SUCCI 40 MG/ML 1 ML VIAL IV SCH ×3 (05:45→17:39)
[2018-07-06] MEDS: DEXTROSE 5% IN WATER 1,000 ML with SODIUM BICARB (1 MEQ/ML) 150 ML IV SCH (07:10)
[2018-07-06 09:04] LABS: Anisocytosis Moderate; Basophils % (A) 0 %; Calcium 8.9 mg/dL (8.4-10.2); Eosinophils # (A) 0.2 k/uL (0-0.7); Eosinophils % (A) 1 %; HGB 8.5 gm/dL (13.0-17.5); Hypochromasia Slight; Lymphocytes # (A) 0.3 k/uL (1.0-4.8); Lymphocytes % (A) 2 %; MCH 34.1 pg (25.0-35.0); MCHC 32.8 g/dL (31.0-37.0); MCV 104.1 fL (80.0-100.0); Macrocytosis Marked; Mean Platelet Volume 9.9; Monocytes # (A) 0.2 k/uL (0-1.0); Monocytes % (A) 2 %; Neutrophils # (A) 11.7 k/uL (1.3-7.7); Neutrophils % (A) 94 %; Platelet Count 145 k/uL (150-450); Potassium 4.7 mmol/L (3.5-5.1); WBC 12.4 k/uL (3.8-10.6)
[2018-07-06] MEDS: SODIUM FERRIC GLUCONAT-SUCROSE 125 MG in SODIUM CHLORIDE 0.9% 100 ML IVPB SCH (09:35)
[2018-07-06] MEDS: PANTOPRAZOLE 40 MG/10 ML VIAL IVP SCH ×2 (09:36→22:59)
[2018-07-06] MEDS: ceFAZolin IN SWFI 2 GM/20 ML SYRINGE IVP SCH (09:36)
[2018-07-06] MEDS: LEVOTHYROXINE IVP 100 MCG/5 ML VIAL IV SCH (09:38)
[2018-07-06] MEDS: SODIUM BICARBONATE TAB 650 MG TAB PO SCH (09:45)
[2018-07-06] MEDS: CALCIUM GLUCONATE 1 GM in SODIUM CHLORIDE 0.9% 100 ML IVPB SCH ×2 (10:35→22:56)
[2018-07-06 10:49] LABS: Crenated RBC Present; Poikilocytosis (M) Present; Target Cells Present
--- NOTE | 2018-07-06 11:23 | P.PN ---
Subjective Progress Note Date: 07/06/18 Principal diagnosis: Septic shock, likely related to Pseudomonas pneumonia infection, urinary tract infection, metabolic acidosis, acute kidney injury This is a 68-year-old white male, known history of pancreatitis, attention, he had previous ERCP for bile duct stent with colitis and history of alcohol abuse. Patient presented to [facility] with 1 week history of worsening shortness of breath. Patient was noted to be anemic, and he was transfused with 2 units of packed RBCs upon presentation. He was seen by gastroenterology on consultation and he was being considered for EGD. In the meantime the patient was placed on Protonix. Patient is known to have history of alcohol abuse, drinks liquor on a daily basis, patient had previous history of bile duct stricture in 2014 and pancreatitis, requiring biliary stenting. Patient is also known to have history of thrombocytopenia and macrocytic anemia. Upon presentation, the patient was noted to have fecal occult blood test positive. The patient was admitted on 06/29, and this morning the rapid response team from the ICU and responded to the patient being hypotensive and short of breath. I was notified about the patient's ABG showing a pO2 of 87 pCO2 of 39 and pH of 7.07. His bicarb was noted to be 12. Hence I recommended immediate intubation fluids, and immediate transfer to the intensive care unit. Shortly after, the patient arrived to the ICU, and he was again noted to be hypotensive, more fluid boluses were given. Started the patient on norepinephrine and this will be titrated accordingly to a mean arterial pressure of 65 or higher. Patient was noted to be oliguric, and he likely developed acute tubular necrosis because of low blood pressure, and nephrology consultation was initiated. In the meantime the patient will need to be on broad-spectrum antibiotics for presumptive sepsis. His chest x-ray showed no evidence of infiltrate, however his urine may be infected based on the urinalysis upon admission. Patient is on Rocephin, and he is also on Zosyn. Patient was reevaluated today on 07/01/2018, he remains on mechanical ventilation, his ventilator settings are assist control rate of 20, tidal volume of 450, FiO2 of 40%, and PEEP of 5. Chest x-ray is now shaving clearly bilateral pneumonia right lower lobe infiltrate is noted, and suspect left retrocardiac opacity/consolidation. His sputum is positive for presumptive Pseudomonas. ABG this morning showed a pO2 of 92 pCO2 of 38 pH of 7.33. Patient is metabolically acidotic, remains on sodium bicarb drip and this is related to his sepsis, and acute tubular necrosis/acute kidney injury. Patient remains on propofol, he is also on norepinephrine, 6 mcg/m,. Patient is also on insulin drip. Urine output is about 30 mL per hour. Continues to have a nasogastric tube in place, and he would have enteral feeding started today. Medication-alvarez the patient is on DuoNeb updrafts, Rocephin and Zosyn, will likely change Rocephin to Levaquin since we may be dealing with pseudomonas aeruginosa pneumonia. Patient received significant amount of fluid boluses yesterday, roughly a total of 4 L. And later on he required to be placed on norepinephrine. Again his blood pressure is marginal, but urine output seems to be improving steadily. His BUN today is 94, creatinine is 5.81, improved compared to creatinine yesterday. Patient does have a low ionized calcium, will give the patient calcium gluconate. We'll also cut down on the bicarb drip today. On 07/05/2018 patient seen in follow-up [facility] surgical floor. She is resting comfortably in bed, in no acute distress. 3 L of oxygen his pulse ox is 97%, no fever or chills, hemodynamic patient is stable, lung sounds are positive for coarse rhonchi, he is coughing, at times she is able to clear some stuff, but mostly dumbest nonproductive. Patient has failed a swallow evaluation, remains nothing by mouth at this time. Today's labs have been reviewed, shows a white blood cell count of 11.7, hemoglobin of 8.4, sodium is 147 potassium is 4.6. Sputum was positive for Staphylococcus aureus, with sensitivity to oxacillin. Abiotic coverage in the form of Kefzol, ID service is following 07/06/2016 patient seen in follow-up on medical surgical floor. He is resting comfortably in bed, in no acute distress, lung sounds remain wheezy, but slightly improved from yesterday's exam, he is on 3 L of oxygen per nasal cannula his pulse ox is 90%, hemodynamically stable, afebrile. His voice remains quite hoarse, his swallowing is impaired. 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 Patient remains nothing by mouth right now, history we started him on IV steroids, antibiotic coverage in the form of Kefzol for oxacillin sensitive staph pneumonia. GI service has been consulted for possibility of PEG tube placement. Today's labs have been reviewed, white blood cell count is 12.4, hemoglobin is 8.5, serum sodium is on the rise, up to 151 07/03/1945 on yesterday's labs, potassium is 4.7, chloride is 117, CO2 is 15, B1 is 77, creatinine is 5.43. Objective - Vital Signs Vital signs: Vital Signs Temp 97.6 F 07/06/18 05:18 Pulse 80 07/06/18 11:04 Resp 18 07/06/18 05:18 BP 157/82 07/06/18 05:18 Pulse Ox 99 07/06/18 05:18 Intake & Output 07/05/18 07/06/18 07/06/18 18:59 06:59 18:59 Intake Total 200 Output Total 320 550 Balance -120 -550 Weight 76 kg 76 kg Intake: IV 200 Calcium Gluconate 1 gm In 100 Sodium Chloride 0.9% 100 ml @ 100 mls/hr IVPB BID ANTHONY Rx#:[id number] Sodium Ferric Gluconat- 100 Sucrose 125 mg In Sodium Chloride 0.9% 100 ml @ 100 mls/hr IVPB DAILY ANTHONY Rx#:[id number] Output: Urine 320 550 ABP, PAP, CO, CI - Last Documented Arterial Blood Pressure 158/56 - Exam GENERAL EXAM: Alert, pleasant 68-year-old white male on 3 L of oxygen comfortable in no apparent distress. HEAD: Normocephalic/atraumatic. EYES: Normal reaction of pupils, equal size. Conjunctiva pink, sclera white. NOSE: Clear with pink turbinates. THROAT: No erythema or exudates. NECK: No masses, no JVD, no thyroid enlargement, no adenopathy. CHEST: No chest wall deformity. Symmetrical expansion. LUNGS: Equal air entry with scattered wheezes, and some rhonchi CVS: Regular rate and rhythm, normal S1 and S2, no gallops, no murmurs, no rubs ABDOMEN: Soft, nontender. No hepatosplenomegaly, normal bowel sounds, no guarding or rigidity. EXTREMITIES: No clubbing, no edema, no cyanosis, 2+ pulses and upper and lower extremities. MUSCULOSKELETAL: Muscle strength and tone normal. SPINE: No scoliosis or deformity SKIN: No rashes CENTRAL NERVOUS SYSTEM: Alert and oriented -3. No focal deficits, tone is normal in all 4 extremities. PSYCHIATRIC: Alert and oriented -3. Appropriate affect. Intact judgment and insight. - Labs CBC & Chem 7: 07/06/18 08:03 07/06/18 08:03 Labs: Abnormal Lab Results - Last 24 Hours (Table) 07/05/18 07/05/18 07/05/18 Range/Units 09:34 13:19 13:44 WBC 11.7 H (3.8-10.6) k/uL RBC 2.49 L (4.30-5.90) m/uL Hgb 8.4 L (13.0-17.5) gm/dL Hct 26.1 L (39.0-53.0) % MCV 104.7 H (80.0-100.0) fL RDW 19.6 H (11.5-15.5) % Plt Count 85 L D (150-450) k/uL Neutrophils # 10.2 H (1.3-7.7) k/uL Lymphocytes # 0.6 L (1.0-4.8) k/uL Sodium (137-145) mmol/L Chloride (98-107) mmol/L Carbon Dioxide (22-30) mmol/L BUN (9-20) mg/dL Creatinine (0.66-1.25) mg/dL Glucose (74-99) mg/dL POC Glucose (mg/dL) 66 L 73 L (75-99) mg/dL Calcium (8.4-10.2) mg/dL 07/05/18 07/05/18 07/06/18 Range/Units 15:06 15:06 08:03 WBC 14.8 H 12.4 H (3.8-10.6) k/uL RBC 2.58 L 2.50 L (4.30-5.90) m/uL Hgb 8.9 L 8.5 L (13.0-17.5) gm/dL Hct 27.2 L 26.0 L (39.0-53.0) % MCV 105.5 H 104.1 H (80.0-100.0) fL RDW 20.1 H 20.0 H (11.5-15.5) % Plt Count 99 L 145 L (150-450) k/uL Neutrophils # 13.7 H 11.7 H (1.3-7.7) k/uL Lymphocytes # 0.3 L 0.3 L (1.0-4.8) k/uL Sodium 148 H (137-145) mmol/L Chloride 117 H (98-107) mmol/L Carbon Dioxide 14 L (22-30) mmol/L BUN 77 H (9-20) mg/dL Creatinine 5.71 H (0.66-1.25) mg/dL Glucose 102 H (74-99) mg/dL POC Glucose (mg/dL) (75-99) mg/dL Calcium 8.3 L (8.4-10.2) mg/dL 07/06/18 Range/Units 08:03 WBC (3.8-10.6) k/uL RBC (4.30-5.90) m/uL Hgb (13.0-17.5) gm/dL Hct (39.0-53.0) % MCV (80.0-100.0) fL RDW (11.5-15.5) % Plt Count (150-450) k/uL Neutrophils # (1.3-7.7) k/uL Lymphocytes # (1.0-4.8) k/uL Sodium 151 H (137-145) mmol/L Chloride 117 H (98-107) mmol/L Carbon Dioxide 15 L (22-30) mmol/L BUN 77 H (9-20) mg/dL Creatinine 5.43 H (0.66-1.25) mg/dL Glucose 121 H (74-99) mg/dL POC Glucose (mg/dL) (75-99) mg/dL Calcium (8.4-10.2) mg/dL Microbiology - Last 24 Hours (Table) 06/30/18 08:54 Blood Culture - Final Blood No Growth after 144 hours Assessment and Plan Plan: Assessment: #1. Acute hypoxemic respiratory failure requiring intubation and mechanical ventilation for staph pneumonia, and the sputum culture showed staph was sensitive to oxacillin. She was intubated on June 30, and successfully extubated on July 03 #2. Dysphagia related to vocal cord edema, and redness, ENT evaluation was obtained, please refer to her note #3. Hypernatremia, likely related to free water deficit, patient is nothing by mouth for dysphagia #4. Possible tract infection #5. Metabolic acidosis and hypotension secondary to septic shock, resolved #6. History of acute kidney injury #7. Gastrointestinal bleeding, status post 2 units of PRBCs #8. History of hypothyroidism #9. CODE STATUS #10. Thrombocytopenia, improving Plan: We will continue current plan of treatment, nebulized bronchodilators, IV steroids and antibiotics. GI service has been consulted for placement of PEG tube, ENT evaluation consult was noted. Nephrology is following, and managing p atient's electrolytes, patient has been nothing by mouth, his serum sodium is on the rise. We'll continue to closely follow I performed a history & physical examination of the patient and discussed their management with my nurse practitioner, Ashley Vigil. I reviewed the nurse practitioner's note and agree with the documented findings and plan of care. Lung sounds are positive for diffuse rhonchi throughout the lung yi. The findings and the impression was discussed with the patient. I attest to the documentation by the nurse practitioner. Time with Patient: Less than 30
[2018-07-06] MEDS: DEXTROSE 5% IN WATER 1,000 ML with SODIUM BICARB (1 MEQ/ML) 100 ML IV SCH (11:24)
[2018-07-06 12:08] LABS: Glucose,Whole Blood 123 mg/dL (75-99)
--- NOTE | 2018-07-06 14:37 | PN ---
PROGRESS NOTE Patient is seen for followup for acute kidney injury. Patient's serum creatinine is staying at about 5.4 mg/dL. He does have about 1.5 grams of protein. His complement levels are low and kidney biopsy should ideally be performed. However, in the mean time, patient has had issues with swallowing and there is concern for possible brainstem CVA. The patient cannot have an MRI done secondary to hardware. There is consideration for possible transfer. His renal function has been fairly stable and patient is not uremic. Therefore, we have held off on renal replacement therapy for now. Sodium has been elevated and patient has not been able to take anything orally. He has been maintained on IV bicarb. PHYSICAL EXAMINATION: On examination today, patient is comfortable, awake. He is not in any acute distress. Alert and oriented x3. Blood pressure was 157/82, heart rate 88 per minute. Patient is afebrile. EXAMINATION OF THE HEART: S1, S2. EXAMINATION OF THE LUNGS: Bilateral breath sounds are heard. Abdomen is soft, nontender. Examination of the lower extremities shows no evidence of edema. [employer] exam shows no focal deficits. LABS: Labs show sodium 151, potassium 4.7, BUN of 77, serum creatinine 5.43. CO2 is 15. ASSESSMENT: 1. Acute kidney injury, acute tubular necrosis versus acute GN. Patient should have a kidney biopsy done. If he is not getting transferred, we can arrange for the biopsy here next week. His complement levels were low. However, rest of this other serologies have been negative. 2. Status post acute hypoxic respiratory failure, currently extubated. 3. Dysphagia associated with vocal cord dysfunction versus a stroke/bulbar palsy being evaluated by ENT. 4. Staphylococcus aureus pneumonia. 5. Hypocalcemia secondary to severe nutrition vitamin D deficiency and chronic kidney disease and hyperparathyroidism. Maintained on calcium supplements. The patient cannot take oral vitamin D and IV Hectorol is not available as inpatient. 6. Hypernatremia associated with free water deficit. I will change the IV fluids to more hypotonic fluid. The patient cannot have free water p.o. 7. Iron deficiency, maintained on IV iron. 8. Thrombocytopenia from sepsis and history of EtOH abuse. 9. 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 Patient did have proteinuria all the way back in 2014. Serum creatinine was about 1.8 to 2 mg/dL, all the way back in 2014. 10.Metabolic acidosis. Maintained on IV bicarb, which we will continue. PLAN: Continue with IV bicarb. Change IV fluids to D5W with 100 mEq of sodium bicarb to allow a more hypotonic fluid. Avoid nephrotoxic agents. The patient should be set up for a kidney biopsy next week. We will follow up on the recommendations from ENT. MMDIANE / RAMILA: [id number] /
[2018-07-06 17:28] LABS: Glucose,Whole Blood 158 mg/dL (75-99)
--- NOTE | 2018-07-06 19:07 | P.PN ---
Subjective Progress Note Date: 07/06/18 Principal diagnosis: Anemia, history of chronic pancreatitis, oropharyngeal dysphagia Patient is seen lying in bed today. No nausea, vomiting or signs or symptoms of GI bleeding reported. Patient is somewhat frustrated by inability to swallow or eat. Objective - Vital Signs Vital signs: Vital Signs Temp 97.8 F 07/06/18 15:00 Pulse 90 07/06/18 15:24 Resp 18 07/06/18 15:00 BP 154/79 07/06/18 15:00 Pulse Ox 98 07/06/18 15:00 Intake & Output 07/06/18 07/06/18 07/07/18 06:59 18:59 06:59 Intake Total 520 Output Total 550 300 Balance -550 220 Weight 76 kg 76 kg Intake: IV 200 Calcium Gluconate 1 gm In 100 Sodium Chloride 0.9% 100 ml @ 100 mls/hr IVPB BID [facility] Rx#:[id number] Sodium Ferric Gluconat- 100 Sucrose 125 mg In Sodium Chloride 0.9% 100 ml @ 100 mls/hr IVPB DAILY [facility] Rx#:[id number] Intake, IV Titration 320 Amount Dextrose 5% in Water 1, 320 000 ml @ 80 mls/hr IV . [id number] [facility] with Sodium Bicarb (1 Meq/ml) 100 ml Rx#:[id number] Output: Urine 550 300 Other: Voiding Method Urinal ABP, PAP, CO, CI - Last Documented Arterial Blood Pressure 158/56 - Exam On physical examination, patient appears comfortable in no apparent distress. HEAD: Normocephalic, atraumatic. EYES: No scleral icterus. No conjunctival injection. MOUTH: No lesions, tongue midline. NECK: Trachea midline, no gross abnormalities. CHEST: Coarse respiratory noises in all lung yi. HEART: Regular rate and rhythm. ABDOMEN: Soft, obese. Bowel sounds are positive. No organomegaly. No guarding or rigidity. EXTREMITIES: No pedal edema. SKIN: No rashes, no jaundice. NEUROLOGIC: Awake and alert. - Labs CBC & Chem 7: 07/06/18 08:03 07/06/18 08:03 Labs: Abnormal Lab Results - Last 24 Hours (Table) 07/06/18 07/06/18 07/06/18 Range/Units 08:03 08:03 12:04 WBC 12.4 H (3.8-10.6) k/uL RBC 2.50 L (4.30-5.90) m/uL Hgb 8.5 L (13.0-17.5) gm/dL Hct 26.0 L (39.0-53.0) % MCV 104.1 H (80.0-100.0) fL RDW 20.0 H (11.5-15.5) % Plt Count 145 L (150-450) k/uL Neutrophils # 11.7 H (1.3-7.7) k/uL Lymphocytes # 0.3 L (1.0-4.8) k/uL Sodium 151 H (137-145) mmol/L Chloride 117 H (98-107) mmol/L Carbon Dioxide 15 L (22-30) mmol/L BUN 77 H (9-20) mg/dL Creatinine 5.43 H (0.66-1.25) mg/dL Glucose 121 H (74-99) mg/dL POC Glucose (mg/dL) 123 H (75-99) mg/dL 07/06/18 Range/Units 17:27 WBC (3.8-10.6) k/uL RBC (4.30-5.90) m/uL Hgb (13.0-17.5) gm/dL Hct (39.0-53.0) % MCV (80.0-100.0) fL RDW (11.5-15.5) % Plt Count (150-450) k/uL Neutrophils # (1.3-7.7) k/uL Lymphocytes # (1.0-4.8) k/uL Sodium (137-145) mmol/L Chloride (98-107) mmol/L Carbon Dioxide (22-30) mmol/L BUN (9-20) mg/dL Creatinine (0.66-1.25) mg/dL Glucose (74-99) mg/dL POC Glucose (mg/dL) 158 H (75-99) mg/dL Microbiology - Last 24 Hours (Table) 06/30/18 08:54 Blood Culture - Final Blood No Growth after 144 hours Assessment and Plan (1) Macrocytic anemia Narrative/Plan: Patient with findings of macrocytic anemia on laboratory evaluation. No signs or symptoms of GI bleeding. The patient is having frequent stools with no hematochezia or melena reported. Hemoglobin remained stable. Macrocytic indices. Current Visit: Yes Status: Acute Priority: Medium Code(s): D53.9 - NUTRITIONAL ANEMIA, UNSPECIFIED SNOMED Code(s): 64103367 (2) Pancreatitis Narrative/Plan: History of chronic pancreatitis. Current Visit: No Status: Acute Code(s): K85.9 - ACUTE PANCREATITIS, UNSPECIFIED * DO NOT USE * SNOMED Code(s): 81101582 (3) Oropharyngeal dysphagia Narrative/Plan: Patient to denies any problem swallowing prior to hospitalization, now failing speech and bedside swallow evaluation, likely secondary to acute illness and recent intubation, however CVA and is on the differential however the patient refuses transfer for further neurologic workup. Current Visit: Yes Status: Acute Code(s): R13.12 - DYSPHAGIA, OROPHARYNGEAL PHASE SNOMED Code(s): 14187220 Plan: Supportive care Nothing by mouth Plan for EGD with PEG tube placement in the morning Continue to monitor stool output, testing for Clostridium difficile negative Continue to monitor hemoglobin and hematocrit and transfuse as needed Hematology service following the patient, at this point is felt that the patient's anemia is likely multifactorial secondary to nutritional deficiencies, toxic effect of alcohol, iron deficiency etc. Gastroenterology will continue to follow, thank you for allowing us to participate in the care of the patient
[2018-07-07 00:27] LABS: Glucose,Whole Blood 141 mg/dL (75-99)
[2018-07-07] MEDS: methylPREDNISolone SOD SUCCI 40 MG/ML 1 ML VIAL IV SCH ×5 (00:30→23:41)
[2018-07-07] MEDS: hydrALAZINE HCL 20 MG/ML 1 ML VIAL IVP PRN ×2 (00:37→13:34)
[2018-07-07] MEDS: IPRATROPIUM-ALBUTEROL 3 ML NEB INHALATION SCH ×6 (03:08→23:51)
[2018-07-07] MEDS: DEXTROSE 5% IN WATER 1,000 ML with SODIUM BICARB (1 MEQ/ML) 100 ML IV SCH ×2 (04:24→12:00)
[2018-07-07 06:42] LABS: Glucose,Whole Blood 152 mg/dL (75-99)
--- NOTE | 2018-07-07 08:47 | P.PN ---
Subjective Patient is seen in follow-up for acute kidney injury. Creatinine was 5.4 as of yesterday. He is noted to have proteinuria along with low complement levels. He is scheduled to undergo PEG tube today. This concern for a CVA. No vomiting or diarrhea. He is awake and alert. He is maintained on hypotonic bicarb drip for hypernatremia. Vital signs are stable. General: The patient appeared well nourished and normally developed. HEENT: Head exam is unremarkable. Neck is without jugular venous distension. LUNGS: Scattered rhonchi. Breath sounds decreased. HEART: Rate and Rhythm are regular. First and second heart sounds normal. No murmurs, rubs or gallops. ABDOMEN: Abdominal exam reveals normal bowel sounds. Non-tender and non-distended. No evidence of peritonitis. EXTREMITITES: No clubbing, cyanosis, or edema. Objective - Vital Signs Vital signs: Vital Signs Temp 97.9 F 07/07/18 05:26 Pulse 104 H 07/07/18 08:27 Resp 16 07/07/18 05:26 BP 162/84 07/07/18 05:26 Pulse Ox 93 L 07/07/18 05:26 Intake & Output 07/06/18 07/07/18 07/07/18 18:59 06:59 18:59 Intake Total 520 0 Output Total 300 700 Balance 220 -700 Weight 76 kg 73 kg Intake: IV 200 Calcium Gluconate 1 gm In 100 Sodium Chloride 0.9% 100 ml @ 100 mls/hr IVPB BID [facility] Rx#:[id number] Sodium Ferric Gluconat- 100 Sucrose 125 mg In Sodium Chloride 0.9% 100 ml @ 100 mls/hr IVPB DAILY [facility] Rx#:[id number] Intake, IV Titration 320 Amount Dextrose 5% in Water 1, 320 000 ml @ 80 mls/hr IV . [id number] AN[facility] with Sodium Bicarb (1 Meq/ml) 100 ml Rx#:[id number] Oral 0 Output: Urine 300 700 Other: Voiding Method Urinal Urinal # Voids 2 # Bowel Movements 0 ABP, PAP, CO, CI - Last Documented Arterial Blood Pressure 158/56 - Labs CBC & Chem 7: 07/06/18 08:03 07/06/18 08:03 Labs: Abnormal Lab Results - Last 24 Hours (Table) 07/06/18 07/06/18 07/06/18 Range/Units 08:03 08:03 12:04 WBC 12.4 H (3.8-10.6) k/uL RBC 2.50 L (4.30-5.90) m/uL Hgb 8.5 L (13.0-17.5) gm/dL Hct 26.0 L (39.0-53.0) % MCV 104.1 H (80.0-100.0) fL RDW 20.0 H (11.5-15.5) % Plt Count 145 L (150-450) k/uL Neutrophils # 11.7 H (1.3-7.7) k/uL Lymphocytes # 0.3 L (1.0-4.8) k/uL Sodium 151 H (137-145) mmol/L Chloride 117 H (98-107) mmol/L Carbon Dioxide 15 L (22-30) mmol/L BUN 77 H (9-20) mg/dL Creatinine 5.43 H (0.66-1.25) mg/dL Glucose 121 H (74-99) mg/dL POC Glucose (mg/dL) 123 H (75-99) mg/dL 07/06/18 07/07/18 07/07/18 Range/Units 17:27 00:07 06:34 WBC (3.8-10.6) k/uL RBC (4.30-5.90) m/uL Hgb (13.0-17.5) gm/dL Hct (39.0-53.0) % MCV (80.0-100.0) fL RDW (11.5-15.5) % Plt Count (150-450) k/uL Neutrophils # (1.3-7.7) k/uL Lymphocytes # (1.0-4.8) k/uL Sodium (137-145) mmol/L Chloride (98-107) mmol/L Carbon Dioxide (22-30) mmol/L BUN (9-20) mg/dL Creatinine (0.66-1.25) mg/dL Glucose (74-99) mg/dL POC Glucose (mg/dL) 158 H 141 H 152 H (75-99) mg/dL Microbiology - Last 24 Hours (Table) 06/30/18 08:54 Blood Culture - Final Blood No Growth after 144 hours Assessment and Plan Plan: Assessment: 1. Acute kidney injury secondary to ATN. There is also concern for acute GN as he does have some nephrotic range proteinuria along with low complement levels. 2. 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 Possible CVA. Scheduled for PEG tube today. 3. 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 Baseline creatinine in the range of 1.8-2. 4. Metabolic acidosis secondary to acute kidney injury. 5. Hypernatremia secondary to lack of oral water intake. 6. Staph aureus pneumonia. Maintained on antibiotics. 7. Anemia of chronic kidney disease maintained on Aranesp. Plan: Maintain hypotonic bicarbonate drip. Follow-up morning labs. Will plan for kidney biopsy next week.
[2018-07-07] MEDS: PANTOPRAZOLE 40 MG/10 ML VIAL IVP SCH ×2 (09:09→22:22)
[2018-07-07] MEDS: LEVOTHYROXINE IVP 100 MCG/5 ML VIAL IV SCH (09:12)
[2018-07-07] MEDS: CALCIUM GLUCONATE 1 GM in SODIUM CHLORIDE 0.9% 100 ML IVPB SCH ×2 (09:21→22:16)
[2018-07-07] MEDS: ceFAZolin IN SWFI 2 GM/20 ML SYRINGE IVP SCH (09:22)
--- NOTE | 2018-07-07 10:50 | P.PN ---
Subjective Progress Note Date: 07/06/18 07/06/2016 patient seen in follow-up on medical surgical floor. He is resting comfortably in bed, in no acute distress, lung sounds remain wheezy, but slightly improved from yesterday's exam, he is on 3 L of oxygen per nasal cannula his pulse ox is 90%, hemodynamically stable, afebrile. His voice remains quite hoarse, his swallowing is impaired. 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 Patient was recommended neurology evaluation to rule out bulbar type Palsy; I had detailed discussion with the patient at bedside regarding recommendations and need for neurology evaluation and was offered transferred to [facility] for further neuro evaluation; patient does understand but remains reluctant; patient relates that he will think about it and will make a decision later; I did offer to call patient's family for update and forth their input and possible transfer; patient relates he has a friend and he does not want him called and he will to make a decision himself; case management prednisone is endorsed; I did note [facility] number [phone] to call and report if patient agrees to transfer Patient remains nothing by mouth right now, history we started him on IV steroids, antibiotic coverage in the form of Kefzol for oxacillin sensitive staph pneumonia. GI service has been consulted for possibility of PEG tube placement. Today's labs have been reviewed, white blood cell count is 12.4, he moglobin is 8.5, serum sodium is on the rise, up to 151 07/03/1945 on yesterday's labs, potassium is 4.7, chloride is 117, CO2 is 15, B1 is 77, creatinine is 5.43. Objective - Vital Signs Vital signs: Vital Signs Temp 97.6 F 07/06/18 05:18 Pulse 84 07/06/18 07:04 Resp 18 07/06/18 05:18 BP 157/82 07/06/18 05:18 Pulse Ox 99 07/06/18 05:18 Intake & Output 07/05/18 07/06/18 07/06/18 18:59 06:59 18:59 Intake Total 200 Output Total 320 550 Balance -120 -550 Weight 76 kg Intake: IV 200 Calcium Gluconate 1 gm In 100 Sodium Chloride 0.9% 100 ml @ 100 mls/hr IVPB BID [facility] Rx#:[id number] Sodium Ferric Gluconat- 100 Sucrose 125 mg In Sodium Chloride 0.9% 100 ml @ 100 mls/hr IVPB DAILY [facility] Rx#:[id number] Output: Urine 320 550 ABP, PAP, CO, CI - Last Documented Arterial Blood Pressure 158/56 - Exam GENERAL EXAM: Alert, pleasant 68-year-old white male on 3 L of oxygen comfortable in no apparent distress. HEAD: Normocephalic/atraumatic. EYES: Normal reaction of pupils, equal size. Conjunctiva pink, sclera white. NECK: No masses, no JVD, no thyroid enlargement, no adenopathy. CHEST: No chest wall deformity. Symmetrical expansion. LUNGS: Equal air entry with scattered wheezes, and some rhonchi CVS: Regular rate and rhythm, normal S1 and S2, no gallops, no murmurs, no rubs ABDOMEN: Soft, nontender. No hepatosplenomegaly, normal bowel sounds, no guarding or rigidity. EXTREMITIES: No clubbing, no edema, no cyanosis, 2+ pulses and upper and lower extremities. SKIN: No rashes - Labs CBC & Chem 7: 07/06/18 08:03 07/06/18 08:03 Labs: Abnormal Lab Results - Last 24 Hours (Table) 07/05/18 07/05/18 07/05/18 Range/Units 09:34 09:34 13:19 WBC 11.7 H (3.8-10.6) k/uL RBC 2.49 L (4.30-5.90) m/uL Hgb 8.4 L (13.0-17.5) gm/dL Hct 26.1 L (39.0-53.0) % MCV 104.7 H (80.0-100.0) fL RDW 19.6 H (11.5-15.5) % Plt Count 85 L D (150-450) k/uL Neutrophils # 10.2 H (1.3-7.7) k/uL Lymphocytes # 0.6 L (1.0-4.8) k/uL Sodium 147 H (137-145) mmol/L Chloride 116 H (98-107) mmol/L Carbon Dioxide 17 L (22-30) mmol/L BUN 78 H (9-20) mg/dL Creatinine 5.63 H (0.66-1.25) mg/dL Glucose 55 L (74-99) mg/dL POC Glucose (mg/dL) 66 L (75-99) mg/dL Calcium 7.8 L (8.4-10.2) mg/dL 07/05/18 07/05/18 07/05/18 Range/Units 13:44 15:06 15:06 WBC 14.8 H (3.8-10.6) k/uL RBC 2.58 L (4.30-5.90) m/uL Hgb 8.9 L (13.0-17.5) gm/dL Hct 27.2 L (39.0-53.0) % MCV 105.5 H (80.0-100.0) fL RDW 20.1 H (11.5-15.5) % Plt Count 99 L (150-450) k/uL Neutrophils # 13.7 H (1.3-7.7) k/uL Lymphocytes # 0.3 L (1.0-4.8) k/uL Sodium 148 H (137-145) mmol/L Chloride 117 H (98-107) mmol/L Carbon Dioxide 14 L (22-30) mmol/L BUN 77 H (9-20) mg/dL Creatinine 5.71 H (0.66-1.25) mg/dL Glucose 102 H (74-99) mg/dL POC Glucose (mg/dL) 73 L (75-99) mg/dL Calcium 8.3 L (8.4-10.2) mg/dL 07/06/18 07/06/18 Range/Units 08:03 08:03 WBC 12.4 H (3.8-10.6) k/uL RBC 2.50 L (4.30-5.90) m/uL Hgb 8.5 L (13.0-17.5) gm/dL Hct 26.0 L (39.0-53.0) % MCV 104.1 H (80.0-100.0) fL RDW 20.0 H (11.5-15.5) % Plt Count 145 L (150-450) k/uL Neutrophils # (1.3-7.7) k/uL Lymphocytes # (1.0-4.8) k/uL Sodium 151 H (137-145) mmol/L Chloride 117 H (98-107) mmol/L Carbon Dioxide 15 L (22-30) mmol/L BUN 77 H (9-20) mg/dL Creatinine 5.43 H (0.66-1.25) mg/dL Glucose 121 H (74-99) mg/dL POC Glucose (mg/dL) (75-99) mg/dL Calcium (8.4-10.2) mg/dL Microbiology - Last 24 Hours (Table) 06/30/18 08:54 Blood Culture - Preliminary Blood No Growth after 120 hours Assessment and Plan Assessment: 1. Acute hypoxemic respiratory failure requiring intubation and mechanical ventilation for staph pneumonia, - sputum culture showed staph was sensitive to oxacillin. - Patient was intubated on June 30, and successfully extubated on July 03 - Solu-Medrol 40 mg IV every 6 hours; DuoNeb nebulizer treatments every 4 hours - Kefzol 2 g IV daily 2. Dysphagia related to vocal cord edema, and redness, ENT evaluation was obtained - Please refer to interval history above for details 3. Hypernatremia, likely related to free water deficit, patient is nothing by mouth for dysphagia; worsening - Sodium level of 151 this morning; we will continue with IV fluids and continue to monitor electrolytes and renal function 4. Possible Urinary tract infection; final urine culture is unremarkable 5. Metabolic acidosis and hypotension secondary to septic shock, resolved 6. Acute kidney injury - Continue with IV fluids D5 water at a rate of 80 mL an hour mixed with sodium bicarbonate 7. Gastrointestinal bleeding, status post 2 units of PRBCs - Patient remains on Protonix 40 mg IV twice a day 8. Hypothyroidism; continue with levothyroxine 50 MCG daily 9. Thrombocytopenia; improving DVT prophylaxis; SCDs only due to thrombocytopenia CODE STATUS; full code Time with Patient: Greater than 30
[2018-07-07 11:57] LABS: Anisocytosis Moderate; Basophils % (A) 0 %; Eosinophils # (A) 0.1 k/uL (0-0.7); Eosinophils % (A) 0 %; HCT 26.2 % (39.0-53.0); HGB 8.9 gm/dL (13.0-17.5); Hypochromasia Slight; Lymphocytes # (A) 0.3 k/uL (1.0-4.8); Lymphocytes % (A) 2 %; MCH 35.4 pg (25.0-35.0); MCV 104.1 fL (80.0-100.0); Macrocytosis Moderate; Mean Platelet Volume 9.2; Monocytes # (A) 0.5 k/uL (0-1.0); Monocytes % (A) 3 %; Neutrophils # (A) 16.1 k/uL (1.3-7.7); Neutrophils % (A) 94 %; Platelet Count 223 k/uL (150-450); RBC 2.52 m/uL (4.30-5.90); RDW 20.3 % (11.5-15.5); WBC 17.1 k/uL (3.8-10.6)
[2018-07-07 11:58] LABS: Glucose,Whole Blood 152 mg/dL (75-99)
[2018-07-07 12:18] LABS: Calcium 8.7 mg/dL (8.4-10.2)
[2018-07-07] MEDS ORDERED: FUROSEMIDE 10 MG/ML 10 ML VIAL IV STA (13:48)
--- NOTE | 2018-07-07 13:52 | P.PN ---
Subjective Progress Note Date: 07/07/18 Principal diagnosis: Septic shock likely related to Pseudomonas pneumonia infection, urinary tract infection, metabolic acidosis, acute kidney injury This is a 68-year-old white male, known history of pancreatitis, attention, he had previous ERCP for bile duct stent with colitis and history of alcohol abuse. Patient presented to [facility] with 1 week history of worsening shortness of breath. Patient was noted to be anemic, and he was transfused with 2 units of packed RBCs upon presentation. He was seen by gastroenterology on consultation and he was being considered for EGD. In the meantime the patient was placed on Protonix. Patient is known to have history of alcohol abuse, drinks liquor on a daily basis, patient had previous history of bile duct stricture in 2014 and pancreatitis, requiring biliary stenting. Patient is also known to have history of thrombocytopenia and macrocytic anemia. Upon presentation, the patient was noted to have fecal occult blood test positive. The patient was admitted on 06/29, and this morning the rapid response team from the ICU and responded to the patient being hypotensive and short of breath. I was notified about the patient's ABG showing a pO2 of 87 pCO2 of 39 and pH of 7.07. His bicarb was noted to be 12. Hence I recommended immediate intubation fluids, and immediate transfer to the intensive care unit. Shortly after, the patient arrived to the ICU, and he was again noted to be hypotensive, more fluid boluses were given. Started the patient on norepinephrine and this will be titrated accordingly to a mean arterial pressure of 65 or higher. Patient was noted to be oliguric, and he likely developed acute tubular necrosis because of low blood pressure, and nephrology consultation was initiated. In the meantime the patient will need to be on broad-spectrum antibiotics for presumptive sepsis. His chest x-ray showed no evidence of infiltrate, however his urine may be infected based on the urinalysis upon admission. Patient is on Rocephin, and he is also on Zosyn. Patient was reevaluated today on 07/01/2018, he remains on mechanical ventilation, his ventilator settings are assist control rate of 20, tidal volume of 450, FiO2 of 40%, and PEEP of 5. Chest x-ray is now shaving clearly bilateral pneumonia right lower lobe infiltrate is noted, and suspect left retrocardiac opacity/consolidation. His sputum is positive for presumptive Pseudomonas. ABG this morning showed a pO2 of 92 pCO2 of 38 pH of 7.33. Patient is metabolically acidotic, remains on sodium bicarb drip and this is related to his sepsis, and acute tubular necrosis/acute kidney injury. Patient remains on propofol, he is also on norepinephrine, 6 mcg/m,. Patient is also on insulin drip. Urine output is about 30 mL per hour. Continues to have a nasogastric tube in place, and he would have enteral feeding started today. Medication-alvarez the patient is on DuoNeb updrafts, Rocephin and Zosyn, will likely change Rocephin to Levaquin since we may be dealing with pseudomonas aeruginosa pneumonia. Patient received significant amount of fluid boluses yesterday, roughly a total of 4 L. And later on he required to be placed on norepinephrine. Again his blood pressure is marginal, but urine output seems to be improving steadily. His BUN today is 94, creatinine is 5.81, improved compared to creatinine yesterday. Patient does have a low ionized calcium, will give the patient calcium gluconate. We'll also cut down on the bicarb drip today. On 07/05/2018 patient seen in follow-up [facility] surgical floor. She is resting comfortably in bed, in no acute distress. 3 L of oxygen his pulse ox is 97%, no fever or chills, hemodynamic patient is stable, lung sounds are positive for coarse rhonchi, he is coughing, at times she is able to clear some stuff, but mostly dumbest nonproductive. Patient has failed a swallow evaluation, remains nothing by mouth at this time. Today's labs have been reviewed, shows a white blood cell count of 11.7, hemoglobin of 8.4, sodium is 147 potassium is 4.6. Sputum was positive for Staphylococcus aureus, with sensitivity to oxacillin. Abiotic coverage in the form of Kefzol, ID service is following 07/06/2016 patient seen in follow-up on medical surgical floor. He is resting comfortably in bed, in no acute distress, lung sounds remain wheezy, but slightly improved from yesterday's exam, he is on 3 L of oxygen per nasal cannula his pulse ox is 90%, hemodynamically stable, afebrile. His voice remains quite hoarse, his swallowing is impaired. 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 Patient remains nothing by mouth right now, history we started him on IV steroids, antibiotic coverage in the form of Kefzol for oxacillin sensitive staph pneumonia. GI service has been consulted for possibility of PEG tube placement. Today's labs have been reviewed, white blood cell count is 12.4, hemoglobin is 8.5, serum sodium is on the rise, up to 151 07/03/1945 on yesterday's labs, potassium is 4.7, chloride is 117, CO2 is 15, B1 is 77, creatinine is 5.43. The patient is seen today 07/07/2018 in follow-up on the regular medical floor. He is currently resting quite comfortably in bed. Awake and alert in no acute distress. He is breathing easier today compared to yesterday. His voice is still quite hoarse and soft. He is maintaining O2 saturations in the 90s on 3 L/m per nasal cannula. He's been afebrile. Hemodynamically stable. Hemoglobin 8.9. He is status post 2 units packed red blood cells this admission. Sputum culture positive for methicillin sensitive Staphylococcus aureus. Blood and urine cultures reveal no growth. White count 17.1. Hemoglobin 8.9. Creatinine 4.84. Sodium 152. Nephrology is on the case. Objective - Vital Signs Vital signs: Vital Signs Temp 97.9 F 07/07/18 05:26 Pulse 108 H 07/07/18 13:03 Resp 16 07/07/18 05:26 BP 162/84 07/07/18 05:26 Pulse Ox 93 L 07/07/18 05:26 Intake & Output 07/06/18 07/07/18 07/07/18 18:59 06:59 18:59 Intake Total 520 0 Output Total 300 700 Balance 220 -700 Weight 76 kg 73 kg Intake: IV 200 Calcium Gluconate 1 gm In 100 Sodium Chloride 0.9% 100 ml @ 100 mls/hr IVPB BID ANTHONY Rx#:[id number] Sodium Ferric Gluconat- 100 Sucrose 125 mg In Sodium Chloride 0.9% 100 ml @ 100 mls/hr IVPB DAILY ANTHONY Rx#:[id number] Intake, IV Titration 320 Amount Dextrose 5% in Water 1, 320 000 ml @ 80 mls/hr IV . [id number] ANTHONY with Sodium Bicarb (1 Meq/ml) 100 ml Rx#:[id number] Oral 0 Output: Urine 300 700 Other: Voiding Method Urinal Urinal Urinal # Voids 2 4 # Bowel Movements 0 ABP, PAP, CO, CI - Last Documented Arterial Blood Pressure 158/56 - Exam GENERAL EXAM: Alert, pleasant 68-year-old white male on 3 L of oxygen comfortable in no apparent distress. HEAD: Normocephalic/atraumatic. EYES: Normal reaction of pupils, equal size. Conjunctiva pink, sclera white. NOSE: Clear with pink turbinates. THROAT: No erythema or exudates. NECK: No masses, no JVD, no thyroid enlargement, no adenopathy. CHEST: No chest wall deformity. Symmetrical expansion. LUNGS: Equal air entry with scattered wheezes, and some rhonchi CVS: Regular rate and rhythm, normal S1 and S2, no gallops, no murmurs, no rubs ABDOMEN: Soft, nontender. No hepatosplenomegaly, normal bowel sounds, no guarding or rigidity. EXTREMITIES: No clubbing, no edema, no cyanosis, 2+ pulses and upper and lower extremities. MUSCULOSKELETAL: Muscle strength and tone normal. SPINE: No scoliosis or deformity SKIN: No rashes CENTRAL NERVOUS SYSTEM: Alert and oriented -3. No focal deficits, tone is n ormal in all 4 extremities. PSYCHIATRIC: Alert and oriented -3. Appropriate affect. Intact judgment and insight. - Labs CBC & Chem 7: 07/07/18 10:35 07/07/18 10:35 Labs: Abnormal Lab Results - Last 24 Hours (Table) 07/06/18 07/07/18 07/07/18 Range/Units 17:27 00:07 06:34 WBC (3.8-10.6) k/uL RBC (4.30-5.90) m/uL Hgb (13.0-17.5) gm/dL Hct (39.0-53.0) % MCV (80.0-100.0) fL MCH (25.0-35.0) pg RDW (11.5-15.5) % Neutrophils # (1.3-7.7) k/uL Lymphocytes # (1.0-4.8) k/uL Sodium (137-145) mmol/L Chloride (98-107) mmol/L Carbon Dioxide (22-30) mmol/L BUN (9-20) mg/dL Creatinine (0.66-1.25) mg/dL Glucose (74-99) mg/dL POC Glucose (mg/dL) 158 H 141 H 152 H (75-99) mg/dL 07/07/18 07/07/18 07/07/18 Range/Units 10:35 10:35 11:47 WBC 17.1 H (3.8-10.6) k/uL RBC 2.52 L (4.30-5.90) m/uL Hgb 8.9 L (13.0-17.5) gm/dL Hct 26.2 L (39.0-53.0) % MCV 104.1 H (80.0-100.0) fL MCH 35.4 H (25.0-35.0) pg RDW 20.3 H (11.5-15.5) % Neutrophils # 16.1 H (1.3-7.7) k/uL Lymphocytes # 0.3 L (1.0-4.8) k/uL Sodium 152 H (137-145) mmol/L Chloride 118 H (98-107) mmol/L Carbon Dioxide 19 L (22-30) mmol/L BUN 77 H (9-20) mg/dL Creatinine 4.84 H (0.66-1.25) mg/dL Glucose 131 H (74-99) mg/dL POC Glucose (mg/dL) 152 H (75-99) mg/dL Microbiology - Last 24 Hours (Table) 06/30/18 08:54 Blood Culture - Final Blood No Growth after 144 hours Assessment and Plan Assessment: Assessment: #1. Acute hypoxemic respiratory failure requiring intubation and mechanical ventilation for staph pneumonia, and the sputum culture showed staph was sensitive to oxacillin. She was intubated on June 30, and successfully extubated on July 03 #2. Dysphagia related to vocal cord edema, and redness, ENT evaluation was obtained, please refer to her note #3. Hypernatremia, likely related to free water deficit, patient is nothing by mouth for dysphagia #4. Possible tract infection #5. Metabolic acidosis and hypotension secondary to septic shock, resolved #6. History of acute kidney injury #7. Gastrointestinal bleeding, status post 2 units of PRBCs #8. History of hypothyroidism #9. CODE STATUS #10. Thrombocytopenia, improving Plan: The patient was seen and evaluated by Dr. Zapien. He is currently stable from the pulmonary standpoint. We'll continue with his current treatment plan including bronchodilators steroids and antibiotics. The patient will most likely need PEG tube placement. Nephrology is on the case regarding creatinine and sodium levels. We will continue to low and make further recommendations based on his clinical status. I, the cosigning physician, performed a history & physical examination of the patient. Lungs sounds with few scattered rhonchi. Maintaining good O2 saturati ons in the 90s on 3 L/m per nasal cannula. I discussed the assessment and plan of care with my nurse practitioner, Kylee Phan. I attest to the above note as dictated by her.
[2018-07-07] MEDS: DEXTROSE 5% IN WATER 1,000 ML IV SCH (13:58)
--- NOTE | 2018-07-07 14:08 | XR ---
EXAMINATION TYPE: XR chest 1V portable DATE OF EXAM: 07/07/2018 COMPARISON: 07/02/2018 INDICATION: Decreased pulse ox, short of breath TECHNIQUE: Single frontal view of the chest is obtained. FINDINGS: The heart size is normal. The pulmonary vasculature is prominent. There is diffuse perihilar infiltrate greater into the right mid and lower lung field. Findings are w orsening over the interval. Correlate for pulmonary edema. IMPRESSION: 1. Clinical correlation recommended for pulmonary edema. Developing right lower lobe pneumonia could be considered. Additional infiltrate are present in the right perihilar and left lower lung yi.
[2018-07-07] MEDS: ERGOCALCIFEROL 50,000 UNIT CAP PO SCH (16:12)
[2018-07-07 17:28] LABS: Glucose,Whole Blood 173 mg/dL (75-99)
[2018-07-08 00:23] LABS: Glucose,Whole Blood 166 mg/dL (75-99)
[2018-07-08] MEDS: DEXTROSE 5% IN WATER 1,000 ML IV SCH ×2 (03:10→17:18)
[2018-07-08] MEDS: hydrALAZINE HCL 20 MG/ML 1 ML VIAL IVP PRN (03:44)
[2018-07-08] MEDS: IPRATROPIUM-ALBUTEROL 3 ML NEB INHALATION SCH ×5 (03:53→20:46)
[2018-07-08 04:02] LABS: ABG Base Excess -2.4 mmol/L; ABG HCO3 24 mmol/L (21-25); ABG Oxygen Saturation 98.2 % (94-97); ABG PCO2 51 mmHg (35-45); ABG PH 7.29 (7.35-7.45); ABG PO2 115 mmHg (83-108); ABG TCO2 26 mmol/L (19-24)
[2018-07-08] MEDS ORDERED: FUROSEMIDE 10 MG/ML 4 ML VIAL IV STA (04:12)
--- NOTE | 2018-07-08 04:26 | XR ---
EXAM: XR Chest, 1 View CLINICAL HISTORY: Pulm edema TECHNIQUE: Frontal view of the chest. COMPARISON: 07/07/18 FINDINGS: Lungs: Mild improvement in bilateral infiltrates. Pleural space: Unremarkable. No pneumothorax. Heart: Unremarkable. No cardiomegaly. Mediastinum: Unremarkable. Bones/joints: Unremarkable. IMPRESSION: Slight improvement in bilateral infiltrates
[2018-07-08 04:40] LABS: Anisocytosis Moderate; Basophils % (A) 0 %; Eosinophils # (A) 0.1 k/uL (0-0.7); Eosinophils % (A) 0 %; HCT 26.1 % (39.0-53.0); HGB 8.6 gm/dL (13.0-17.5); Hypochromasia Moderate; Lymphocytes # (A) 0.3 k/uL (1.0-4.8); Lymphocytes % (A) 2 %; MCH 33.5 pg (25.0-35.0); MCHC 32.8 g/dL (31.0-37.0); MCV 102.2 fL (80.0-100.0); Macrocytosis Marked; Mean Platelet Volume 11.2; Monocytes # (A) 0.5 k/uL (0-1.0); Monocytes % (A) 3 %; Neutrophils # (A) 15.9 k/uL (1.3-7.7); Neutrophils % (A) 94 %; Platelet Count 234 k/uL (150-450); Poikilocytosis Slight; RBC 2.55 m/uL (4.30-5.90); RDW 22.8 % (11.5-15.5)
[2018-07-08] MEDS: methylPREDNISolone SOD SUCCI 40 MG/ML 1 ML VIAL IV SCH ×4 (05:06→23:49)
[2018-07-08 05:38] LABS: Calcium 8.6 mg/dL (8.4-10.2); Magnesium 1.9 mg/dL (1.6-2.3); Potassium 3.6 mmol/L (3.5-5.1)
[2018-07-08 06:00] LABS: Glucose,Whole Blood 154 mg/dL (75-99)
[2018-07-08] MEDS: CALCIUM GLUCONATE 1 GM in SODIUM CHLORIDE 0.9% 100 ML IVPB SCH ×2 (07:29→20:27)
[2018-07-08] MEDS: PANTOPRAZOLE 40 MG/10 ML VIAL IVP SCH ×2 (07:29→20:27)
[2018-07-08] MEDS: ceFAZolin IN SWFI 2 GM/20 ML SYRINGE IVP SCH (07:29)
[2018-07-08] MEDS: LEVOTHYROXINE IVP 100 MCG/5 ML VIAL IV SCH (07:29)
--- NOTE | 2018-07-08 08:19 | P.PN ---
Subjective Patient is seen in follow-up for acute kidney injury. Renal function is slightly improved. Creatinine 4.7 to this morning. He is noted to have pr oteinuria along with low complement levels. Patient remains quite short of breath. He did receive Lasix 60 mg IV yesterday and another dose of 40 mg IV last night. Urine output overnight was 1200 mL. PEG tube was not placed yesterday due to his respiratory status. Vital signs are stable. General: The patient appeared well nourished and normally developed. HEENT: Head exam is unremarkable. Neck is without jugular venous distension. LUNGS: Scattered rhonchi. Breath sounds decreased. HEART: Rate and Rhythm are regular. First and second heart sounds normal. No murmurs, rubs or gallops. ABDOMEN: Abdominal exam reveals normal bowel sounds. Non-tender and non- distended. No evidence of peritonitis. EXTREMITITES: No clubbing, cyanosis, or edema. Objective - Vital Signs Vital signs: Vital Signs Temp 97.2 F L 07/08/18 05:00 Pulse 95 07/08/18 07:22 Resp 20 07/08/18 05:00 BP 159/85 07/08/18 05:00 Pulse Ox 97 07/08/18 07:10 Intake & Output 07/07/18 07/08/18 07/08/18 18:59 06:59 18:59 Intake Total 0 Output Total 6 1350 Balance -6 -1350 Intake: Oral 0 Output: Urine 6 1350 Stool 0 Other: Voiding Method Urinal Urinal # Voids 3 0 # Bowel Movements 0 ABP, PAP, CO, CI - Last Documented Arterial Blood Pressure 158/56 - Labs CBC & Chem 7: 07/08/18 04:20 07/08/18 04:20 Labs: Abnormal Lab Results - Last 24 Hours (Table) 07/07/18 07/07/18 07/07/18 Range/Units 10:35 10:35 11:47 WBC 17.1 H (3.8-10.6) k/uL RBC 2.52 L (4.30-5.90) m/uL Hgb 8.9 L (13.0-17.5) gm/dL Hct 26.2 L (39.0-53.0) % MCV 104.1 H (80.0-100.0) fL MCH 35.4 H (25.0-35.0) pg RDW 20.3 H (11.5-15.5) % Neutrophils # 16.1 H (1.3-7.7) k/uL Lymphocytes # 0.3 L (1.0-4.8) k/uL ABG pH (7.35-7.45) ABG pCO2 (35-45) mmHg ABG pO2 (83-108) mmHg ABG Total CO2 (19-24) mmol/L ABG O2 Saturation (94-97) % Sodium 152 H (137-145) mmol/L Chloride 118 H (98-107) mmol/L Carbon Dioxide 19 L (22-30) mmol/L BUN 77 H (9-20) mg/dL Creatinine 4.84 H (0.66-1.25) mg/dL Glucose 131 H (74-99) mg/dL POC Glucose (mg/dL) 152 H (75-99) mg/dL 07/07/18 07/08/18 07/08/18 Range/Units 17:22 00:16 03:56 WBC (3.8-10.6) k/uL RBC (4.30-5.90) m/uL Hgb (13.0-17.5) gm/dL Hct (39.0-53.0) % MCV (80.0-100.0) fL MCH (25.0-35.0) pg RDW (11.5-15.5) % Neutrophils # (1.3-7.7) k/uL Lymphocytes # (1.0-4.8) k/uL ABG pH 7.29 L (7.35-7.45) ABG pCO2 51 H (35-45) mmHg ABG pO2 115 H (83-108) mmHg ABG Total CO2 26 H (19-24) mmol/L ABG O2 Saturation 98.2 H (94-97) % Sodium (137-145) mmol/L Chloride (98-107) mmol/L Carbon Dioxide (22-30) mmol/L BUN (9-20) mg/dL Creatinine (0.66-1.25) mg/dL Glucose (74-99) mg/dL POC Glucose (mg/dL) 173 H 166 H (75-99) mg/dL 07/08/18 07/08/18 07/08/18 Range/Units 04:20 04:20 05:54 WBC 17.0 H (3.8-10.6) k/uL RBC 2.55 L (4.30-5.90) m/uL Hgb 8.6 L (13.0-17.5) gm/dL Hct 26.1 L (39.0-53.0) % MCV 102.2 H (80.0-100.0) fL MCH (25.0-35.0) pg RDW 22.8 H (11.5-15.5) % Neutrophils # 15.9 H (1.3-7.7) k/uL Lymphocytes # 0.3 L (1.0-4.8) k/uL ABG pH (7.35-7.45) ABG pCO2 (35-45) mmHg ABG pO2 (83-108) mmHg ABG Total CO2 (19-24) mmol/L ABG O2 Saturation (94-97) % Sodium 150 H (137-145) mmol/L Chloride 116 H (98-107) mmol/L Carbon Dioxide (22-30) mmol/L BUN 77 H (9-20) mg/dL Creatinine 4.72 H (0.66-1.25) mg/dL Glucose 158 H (74-99) mg/dL POC Glucose (mg/dL) 154 H (75-99) mg/dL Assessment and Plan Plan: Assessment: 1. Acute kidney injury secondary to ATN. There is also concern for acute GN as he does have sub-nephrotic range proteinuria along with low complement levels. 2. 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 Possible CVA. PEG tube was not placed yesterday due to worsening of his respiratory status. 3. 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 Baseline creatinine in the range of 1.8-2. 4. Metabolic acidosis secondary to acute kidney injury. Better. 5. Hypernatremia secondary to lack of oral water intake. Gradually improving. 6. Staph aureus pneumonia. Maintained on antibiotics. 7. Anemia of chronic kidney disease maintained on Aranesp. Plan: Maintain D5W at 75 mL an hour. Add Lasix 60 mg IV twice daily. Strict Is and Os. Transfer to selective floor. Continue to monitor respiratory status closely.
[2018-07-08] MEDS: FUROSEMIDE 10 MG/ML 10 ML VIAL IV SCH ×2 (09:01→20:27)
--- NOTE | 2018-07-08 11:16 | P.PN ---
Subjective Progress Note Date: 07/08/18 Principal diagnosis: Septic shock, likely related to Pseudomonas pneumonia infection, urinary tract infection, metabolic acidosis, acute kidney injury This is a 68-year-old white male, known history of pancreatitis, attention, he had previous ERCP for bile duct stent with colitis and history of alcohol abuse. Patient presented to [facility] with 1 week history of worsening shortness of breath. Patient was noted to be anemic, and he was transfused with 2 units of packed RBCs upon presentation. He was seen by gastroenterology on consultation and he was being considered for EGD. In the meantime the patient was placed on Protonix. Patient is known to have history of alcohol abuse, drinks liquor on a daily basis, patient had previous history of bile duct stricture in 2014 and pancreatitis, requiring biliary stenting. Patient is also known to have history of thrombocytopenia and macrocytic anemia. Upon presentation, the patient was noted to have fecal occult blood test positive. The patient was admitted on 06/29, and this morning the rapid response team from the ICU and responded to the patient being hypotensive and short of breath. I was notified about the patient's ABG showing a pO2 of 87 pCO2 of 39 and pH of 7.07. His bicarb was noted to be 12. Hence I recommended immediate intubation fluids, and immediate transfer to the intensive care unit. Shortly after, the patient arrived to the ICU, and he was again noted to be hypotensive, more fluid boluses were given. Started the patient on norepinephrine and this will be titrated accordingly to a mean arterial pressure of 65 or higher. Patient was noted to be oliguric, and he likely developed acute tubular necrosis because of low blood pressure, and nephrology consultation was initiated. In the meantime the patient will need to be on broad-spectrum antibiotics for presumptive sepsis. His chest x-ray showed no evidence of infiltrate, however his urine may be infected based on the urinalysis upon admission. Patient is on Rocephin, and he is also on Zosyn. Patient was reevaluated today on 07/01/2018, he remains on mechanical ventilation, his ventilator settings are assist control rate of 20, tidal volume of 450, FiO2 of 40%, and PEEP of 5. Chest x-ray is now shaving clearly bilateral pneumonia right lower lobe infiltrate is noted, and suspect left retrocardiac opacity/consolidation. His sputum is positive for presumptive Pseudomonas. ABG this morning showed a pO2 of 92 pCO2 of 38 pH of 7.33. Patient is metabolically acidotic, remains on sodium bicarb drip and this is related to his sepsis, and acute tubular necrosis/acute kidney injury. Patient remains on propofol, he is also on norepinephrine, 6 mcg/m,. Patient is also on insulin drip. Urine output is about 30 mL per hour. Continues to have a nasogastric tube in place, and he would have enteral feeding started today. Medication-alvarez the patient is on DuoNeb updrafts, Rocephin and Zosyn, will likely change Rocephin to Levaquin since we may be dealing with pseudomonas aeruginosa pneumonia. Patient received significant amount of fluid boluses yesterday, roughly a total of 4 L. And later on he required to be placed on norepinephrine. Again his blood pressure is marginal, but urine output seems to be improving steadily. His BUN today is 94, creatinine is 5.81, improved compared to creatinine yesterday. Patient does have a low ionized calcium, will give the patient calcium gluconate. We'll also cut down on the bicarb drip today. On 07/05/2018 patient seen in follow-up [facility] surgical floor. She is resting comfortably in bed, in no acute distress. 3 L of oxygen his pulse ox is 97%, no fever or chills, hemodynamic patient is stable, lung sounds are positive for coarse rhonchi, he is coughing, at times she is able to clear some stuff, but mostly dumbest nonproductive. Patient has failed a swallow evaluation, remains nothing by mouth at this time. Today's labs have been reviewed, shows a white blood cell count of 11.7, hemoglobin of 8.4, sodium is 147 potassium is 4.6. Sputum was positive for Staphylococcus aureus, with sensitivity to oxacillin. Abiotic coverage in the form of Kefzol, ID service is following 07/06/2016 patient seen in follow-up on medical surgical floor. He is resting comfortably in bed, in no acute distress, lung sounds remain wheezy, but slightly improved from yesterday's exam, he is on 3 L of oxygen per nasal cannula his pulse ox is 90%, hemodynamically stable, afebrile. His voice remains quite hoarse, his swallowing is impaired. 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 Patient remains nothing by mouth right now, history we started him on IV steroids, antibiotic coverage in the form of Kefzol for oxacillin sensitive staph pneumonia. GI service has been consulted for possibility of PEG tube placement. Today's labs have been reviewed, white blood cell count is 12.4, hemoglobin is 8.5, serum sodium is on the rise, up to 151 07/03/1945 on yesterday's labs, potassium is 4.7, chloride is 117, CO2 is 15, BUN is 77, creatinine is 5.43. On 07/08/2018 patient seen in follow-up on medical surgical floor. Apparently he was experiencing respiratory distress last night, and rapid response team was called. Lung sounds are congested, and wet sounding, patient was given a dose of IV Lasix. Chest x-ray was obtained showing pulmonary edema, bilateral pleural effusions. Nephrology service has been following, and has increased patient's Lasix to 60 mg twice daily. 's morning we were called in regards to patient still experiencing shortness of breath, wheezing, wet sounding, congested. Patient was placed on BiPAP support, with pressures of 10 and 5, and 50%. He started to diurese, indwelling catheter was placed. At the time of her evaluation his were comfortable, tolerating BiPAP support very well, awake and alert, lung sounds are diminished, with scattered rhonchi. Starting to produce dilute clear yellow urine. No fever or chills, today's labs have been reviewed, and showed a white blood cell count of 17.0, hemoglobin of 8.6, serum sodium is 150, potassium is 3.6, chloride is 116, CO2 is 23, BUN 77, creatinine is 4.72. Objective - Vital Signs Vital signs: Vital Signs Temp 97.2 F L 07/08/18 05:00 Pulse 92 07/08/18 10:57 Resp 20 07/08/18 05:00 BP 159/85 07/08/18 05:00 Pulse Ox 97 07/08/18 07:10 Intake & Output 07/07/18 07/08/18 07/08/18 18:59 06:59 18:59 Intake Total 0 Output Total 6 1350 725 Balance -6 -1350 -725 Intake: Oral 0 Output: Urine 6 4980 729 Stool 0 Other: Voiding Method Urinal Urinal Urinal # Voids 3 0 # Bowel Movements 0 ABP, PAP, CO, CI - Last Documented Arterial Blood Pressure 158/56 - Exam GENERAL EXAM: Alert, pleasant 68-year-old white male on BiPAP support pressures of 10 and 5, and FiO2 50% HEAD: Normocephalic/atraumatic. EYES: Normal reaction of pupils, equal size. Conjunctiva pink, sclera white. NOSE: Clear with pink turbinates. THROAT: No erythema or exudates. NECK: No masses, no JVD, no thyroid enlargement, no adenopathy. CHEST: No chest wall deformity. Symmetrical expansion. LUNGS: Equal air entry with scattered wheezes, and some rhonchi CVS: Regular rate and rhythm, normal S1 and S2, no gallops, no murmurs, no rubs ABDOMEN: Soft, nontender. No hepatosplenomegaly, normal bowel sounds, no guarding or rigidity. EXTREMITIES: No clubbing, no edema, no cyanosis, 2+ pulses and upper and lower extremities. MUSCULOSKELETAL: Muscle strength and tone normal. SPINE: No scoliosis or deformity SKIN: No rashes CENTRAL NERVOUS SYSTEM: Alert and oriented -3. No focal deficits, tone is normal in all 4 extremities. PSYCHIATRIC: Alert and oriented -3. Appropriate affect. Intact judgment and insight. - Labs CBC & Chem 7: 07/08/18 04:20 07/08/18 04:20 Labs: Abnormal Lab Results - Last 24 Hours (Table) 07/07/18 07/07/18 07/07/18 Range/Units 10:35 10:35 11:47 WBC 17.1 H (3.8-10.6) k/uL RBC 2.52 L (4.30-5.90) m/uL Hgb 8.9 L (13.0-17.5) gm/dL Hct 26.2 L (39.0-53.0) % MCV 104.1 H (80.0-100.0) fL MCH 35.4 H (25.0-35.0) pg RDW 20.3 H (11.5-15.5) % Neutrophils # 16.1 H (1.3-7.7) k/uL Lymphocytes # 0.3 L (1.0-4.8) k/uL ABG pH (7.35-7.45) ABG pCO2 (35-45) mmHg ABG pO2 (83-108) mmHg ABG Total CO2 (19-24) mmol/L ABG O2 Saturation (94-97) % Sodium 152 H (137-145) mmol/L Chloride 118 H (98-107) mmol/L Carbon Dioxide 19 L (22-30) mmol/L BUN 77 H (9-20) mg/dL Creatinine 4.84 H (0.66-1.25) mg/dL Glucose 131 H (74-99) mg/dL POC Glucose (mg/dL) 152 H (75-99) mg/dL 07/07/18 07/08/18 07/08/18 Range/Units 17:22 00:16 03:56 WBC (3.8-10.6) k/uL RBC (4.30-5.90) m/uL Hgb (13.0-17.5) gm/dL Hct (39.0-53.0) % MCV (80.0-100.0) fL MCH (25.0-35.0) pg RDW (11.5-15.5) % Neutrophils # (1.3-7.7) k/uL Lymphocytes # (1.0-4.8) k/uL ABG pH 7.29 L (7.35-7.45) ABG pCO2 51 H (35-45) mmHg ABG pO2 115 H (83-108) mmHg ABG Total CO2 26 H (19-24) mmol/L ABG O2 Saturation 98.2 H (94-97) % Sodium (137-145) mmol/L Chloride (98-107) mmol/L Carbon Dioxide (22-30) mmol/L BUN (9-20) mg/dL Creatinine (0.66-1.25) mg/dL Glucose (74-99) mg/dL POC Glucose (mg/dL) 173 H 166 H (75-99) mg/dL 07/08/18 07/08/18 07/08/18 Range/Units 04:20 04:20 05:54 WBC 17.0 H (3.8-10.6) k/uL RBC 2.55 L (4.30-5.90) m/uL Hgb 8.6 L (13.0-17.5) gm/dL Hct 26.1 L (39.0-53.0) % MCV 102.2 H (80.0-100.0) fL MCH (25.0-35.0) pg RDW 22.8 H (11.5-15.5) % Neutrophils # 15.9 H (1.3-7.7) k/uL Lymphocytes # 0.3 L (1.0-4.8) k/uL ABG pH (7.35-7.45) ABG pCO2 (35-45) mmHg ABG pO2 (83-108) mmHg ABG Total CO2 (19-24) mmol/L ABG O2 Saturation (94-97) % Sodium 150 H (137-145) mmol/L Chloride 116 H (98-107) mmol/L Carbon Dioxide (22-30) mmol/L BUN 77 H (9-20) mg/dL Creatinine 4.72 H (0.66-1.25) mg/dL Glucose 158 H (74-99) mg/dL POC Glucose (mg/dL) 154 H (75-99) mg/dL Assessment and Plan Plan: Assessment: #1. Acute hypoxemic respiratory failure requiring intubation and mechanical ventilation for staph pneumonia, and the sputum culture showed staph was sensitive to oxacillin. Patient was intubated on June 30, and successfully extubated on July 03 On 07/08/2018 patient was placed on BiPAP support for worsening congestive heart failure, or edema, bilateral pleural effusions. Dose of Lasix was increased. #2. Dysphagia related to vocal cord edema, and redness, ENT evaluation was obtained, please refer to their note #3. Hypernatremia, likely related to free water deficit, patient is nothing by mouth for dysphagia #4. Possible tract infection #5. Metabolic acidosis and hypotension secondary to septic shock, resolved #6. History of acute kidney injury #7. Gastrointestinal bleeding, status post 2 units of PRBCs #8. History of hypothyroidism #9. CODE STATUS #10. Thrombocytopenia, improving Plan: Continue with BiPAP support, blood gases, chest x-ray vital signs, labs have all been reviewed by Dr. Zapien, patient was evaluated by Dr. Howard, currently, comfortable, tolerating BiPAP support very well, awake and alert, no worsening dyspnea. Patient may remain on medical surgical floor. Lasix has been increa sed, Zhu catheter has been placed, patient started to diurese. Renal profile remains relatively stable, nephrology service following. No fever or chills, patient is on Kefzol for antibiotic coverage. Continue to follow I performed a history & physical examination of the patient and discussed their management with my nurse practitioner, Ashley Vigil. I reviewed the nurse practitioner's note and agree with the documented findings and plan of care. Lung sounds are positive for diffuse rhonchi throughout the lung yi. The findings and the impression was discussed with the patient. I attest to the documentation by the nurse practitioner. Time with Patient: Less than 30
[2018-07-08 11:53] LABS: Glucose,Whole Blood 149 mg/dL (75-99)
--- NOTE | 2018-07-08 14:43 | P.PN ---
Subjective Progress Note Date: 07/07/18 Principal diagnosis: Acute metabolic dependent respiratory failure Pneumonia/sepsis Acute renal failure 07/06/2018 patient seen in follow-up on medical surgical floor. He is resting comfortably in bed, in no acute distress, lung sounds remain wheezy, but slightly improved from yesterday's exam, he is on 3 L of oxygen per nasal cannula his pulse ox is 90%, hemodynamically stable, afebrile. His voice remains quite hoarse, his swallowing is impaired. 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 Patient was recommended neurology evaluation to rule out bulbar type Palsy; I had detailed discussion with the patient at bedside regarding recommendations and need for neurology evaluation and was offered transferred to [facility] for further neuro evaluation; patient does understand but remains reluctant; patient relates that he will think about it and will make a decision later; I did offer to call patient's family for update and forth their input and possible transfer; patient relates he has a friend and he does not want him called and he will to make a decision himself; case management prednisone is endorsed; I did note [facility] number [phone] to call and report if patient agrees to transfer Patient remains nothing by mouth right now, history we started him on IV steroids, antibiotic coverage in the form of Kefzol for oxacillin sensitive staph pneumonia. GI service has been consulted for possibility of PEG tube placement. Today's labs have been reviewed, white blood cell count is 12.4, hemoglobin is 8.5, serum sodium is on the rise, up to 151 07/03/1945 on yesterday's labs, potassium is 4.7, chloride is 117, CO2 is 15, B1 is 77, creatinine is 5.43. 07/07/2018 Patient is seen in follow-up; Creatinine was 5.4 as of yesterday. He is noted to have proteinuria along with low complement levels. He is scheduled to undergo PEG tube today. There is concern for a CVA; patient continues to refuse transfer to an outside facility for neurology evaluation. No vomiting or diarrhea. He is awake and alert. He is maintained on hypotonic bicarb drip for hypernatremia. Vital signs are stable Objective - Vital Signs Vital signs: Vital Signs Temp 97.9 F 07/07/18 05:26 Pulse 96 07/07/18 08:42 Resp 16 07/07/18 05:26 BP 162/84 07/07/18 05:26 Pulse Ox 93 L 07/07/18 05:26 Intake & Output 07/06/18 07/07/18 07/07/18 18:59 06:59 18:59 Intake Total 520 0 Output Total 300 700 Balance 220 -700 Weight 76 kg 73 kg Intake: IV 200 Calcium Gluconate 1 gm In 100 Sodium Chloride 0.9% 100 ml @ 100 mls/hr IVPB BID ANTHONY Rx#:[id number] Sodium Ferric Gluconat- 100 Sucrose 125 mg In Sodium Chloride 0.9% 100 ml @ 100 mls/hr IVPB DAILY ANTHONY Rx#:[id number] Intake, IV Titration 320 Amount Dextrose 5% in Water 1, 320 000 ml @ 80 mls/hr IV . [id number] ANTHONY with Sodium Bicarb (1 Meq/ml) 100 ml Rx#:[id number] Oral 0 Output: Urine 300 700 Other: Voiding Method Urinal Urinal Urinal # Voids 2 4 # Bowel Movements 0 ABP, PAP, CO, CI - Last Documented Arterial Blood Pressure 158/56 - Exam GENERAL EXAM: Alert, pleasant 68-year-old white male on 3 L of oxygen com fortable in no apparent distress. HEAD: Normocephalic/atraumatic. EYES: Normal reaction of pupils, equal size. Conjunctiva pink, sclera white. NECK: No masses, no JVD, no thyroid enlargement, no adenopathy. CHEST: No chest wall deformity. Symmetrical expansion. LUNGS: Equal air entry with scattered wheezes, and some rhonchi CVS: Regular rate and rhythm, normal S1 and S2, no gallops, no murmurs, no rubs ABDOMEN: Soft, nontender. No hepatosplenomegaly, normal bowel sounds, no guarding or rigidity. EXTREMITIES: No clubbing, no edema, no cyanosis, 2+ pulses and upper and lower extremities. SKIN: No rashes - Labs CBC & Chem 7: 07/06/18 08:03 07/06/18 08:03 Labs: Abnormal Lab Results - Last 24 Hours (Table) 07/06/18 07/06/18 07/06/18 Range/Units 08:03 12:04 17:27 Neutrophils # 11.7 H (1.3-7.7) k/uL Lymphocytes # 0.3 L (1.0-4.8) k/uL POC Glucose (mg/dL) 123 H 158 H (75-99) mg/dL 07/07/18 07/07/18 Range/Units 00:07 06:34 Neutrophils # (1.3-7.7) k/uL Lymphocytes # (1.0-4.8) k/uL POC Glucose (mg/dL) 141 H 152 H (75-99) mg/dL Microbiology - Last 24 Hours (Table) 06/30/18 08:54 Blood Culture - Final Blood No Growth after 144 hours Assessment and Plan Assessment: 1. Acute hypoxemic respiratory failure requiring intubation and mechanical ventilation for staph pneumonia, - sputum culture showed staph was sensitive to oxacillin. - Patient was intubated on June 30, and successfully extubated on July 03 - Solu-Medrol 40 mg IV every 6 hours; DuoNeb nebulizer treatments every 4 hours - Kefzol 2 g IV daily 2. Dysphagia related to vocal cord edema, and redness, ENT evaluation was obtained - Please refer to interval history above for details 3. Hypernatremia, likely related to free water deficit, patient is nothing by mouth for dysphagia; worsening - Sodium level of 151 this morning; we will continue with IV fluids and continue to monitor electrolytes and renal function 4. Possible Urinary tract infection; final urine culture is unremarkable 5. Metabolic acidosis and hypotension secondary to septic shock, resolved 6. Acute kidney injury - Continue with IV fluids D5 water at a rate of 80 mL an hour mixed with sodium bicarbonate 7. Gastrointestinal bleeding, status post 2 units of PRBCs - Patient remains on Protonix 40 mg IV twice a day 8. Hypothyroidism; continue with levothyroxine 50 MCG daily 9. Thrombocytopenia; improving DVT prophylaxis; SCDs only due to thrombocytopenia CODE STATUS; full code Time with Patient: Greater than 30
[2018-07-08 17:38] LABS: Glucose,Whole Blood 136 mg/dL (75-99)
[2018-07-09 00:05] LABS: Glucose,Whole Blood 137 mg/dL (75-99)
[2018-07-09] MEDS: IPRATROPIUM-ALBUTEROL 3 ML NEB INHALATION SCH ×7 (00:11→23:52)
[2018-07-09] MEDS: methylPREDNISolone SOD SUCCI 40 MG/ML 1 ML VIAL IV SCH ×4 (05:15→23:15)
[2018-07-09] MEDS: DEXTROSE 5% IN WATER 1,000 ML IV SCH ×2 (05:15→19:45)
[2018-07-09 05:55] LABS: Glucose,Whole Blood 143 mg/dL (75-99)
[2018-07-09] MEDS: PANTOPRAZOLE 40 MG/10 ML VIAL IVP SCH ×2 (08:26→21:06)
[2018-07-09] MEDS: LEVOTHYROXINE IVP 100 MCG/5 ML VIAL IV SCH (08:26)
[2018-07-09] MEDS: FUROSEMIDE 10 MG/ML 10 ML VIAL IV SCH (08:26)
[2018-07-09 09:15] LABS: Anisocytosis Moderate; Basophils % (A) 0 %; Eosinophils # (A) 0.1 k/uL (0-0.7); Eosinophils % (A) 0 %; HCT 27.1 % (39.0-53.0); HGB 9.3 gm/dL (13.0-17.5); Hypochromasia Moderate; Lymphocytes # (A) 0.3 k/uL (1.0-4.8); Lymphocytes % (A) 2 %; MCHC 34.2 g/dL (31.0-37.0); MCV 105.4 fL (80.0-100.0); Macrocytosis Marked; Mean Platelet Volume 8.9; Monocytes # (A) 0.5 k/uL (0-1.0); Monocytes % (A) 2 %; Neutrophils % (A) 95 %; Platelet Count 262 k/uL (150-450); RBC 2.57 m/uL (4.30-5.90); RDW 20.1 % (11.5-15.5)
[2018-07-09 09:22] LABS: Calcium 8.3 mg/dL (8.4-10.2); Magnesium 1.8 mg/dL (1.6-2.3); Potassium 3.4 mmol/L (3.5-5.1)
[2018-07-09] MEDS: CALCIUM GLUCONATE 1 GM in SODIUM CHLORIDE 0.9% 100 ML IVPB SCH ×2 (09:36→20:54)
[2018-07-09] MEDS ORDERED: ASPIRIN 300 MG SUPP RECTAL STA (10:00)
[2018-07-09] MEDS: ceFAZolin IN SWFI 2 GM/20 ML SYRINGE IVP SCH (10:10)
--- NOTE | 2018-07-09 10:51 | CT ---
EXAMINATION TYPE: CT brain wo con DATE OF EXAM: 07/09/2018 COMPARISON: 12/23/2014 HISTORY: poss brainstem stroke Unenhanced CT of the brain was performed. The ventricles, basal cisterns and sulci overlying the cerebral convexities demonstrate mild enlargem ent. There is no evidence for intracranial hemorrhage or sulcal effacement. There is decreased attenuation about the periventricular white matter and deep white matter of both c erebral hemispheres, compatible with chronic small vessel ischemia. Differential diagnosis does inclu de demyelination. No mass effects are seen.No midline shift. Osseous calvarium is intact. If symptoms persist consider MRI. IMPRESSION: 1. Age related atrophic and chronic small vessel ischemic change without acute intracranial process s een at this time.
[2018-07-09 11:53] LABS: Glucose,Whole Blood 156 mg/dL (75-99)
[2018-07-09 12:37] LABS: ABG Base Excess 2.1 mmol/L; ABG HCO3 29 mmol/L (21-25); ABG Oxygen Saturation 94.8 % (94-97); ABG PCO2 59 mmHg (35-45); ABG PO2 74 mmHg (83-108); ABG TCO2 30 mmol/L (19-24)
--- NOTE | 2018-07-09 12:49 | PN ---
PROGRESS NOTE Patient was seen this morning. He was lying in bed. He was awake but not responding much. He was eventually transferred to the ICU this morning. A brain CT was unremarkable. The patient continues to have good urine output. He is maintained on D5W, it is ordered for 75 mL an hour, but it looks like it was not running at that it was running at 20 an hour. The patient's renal function is about the same as it has been for the last 2 to 3 days with creatinine down a little bit at 4.7 mg/dL. PHYSICAL EXAMINATION: On examination this morning, blood pressure was 168/84, heart rate of 102 per minute. Patient is afebrile. EXAMINATION OF THE HEART: S1, S2. EXAMINATION OF THE LUNGS: Bilateral breath sounds are heard. Decreased breath sounds bases. Abdomen is soft, nontender. Examination of the lower extremities shows edema, trace bilaterally. TEACHING ASSOCIATE exam cannot be performed. The patient was moving all 4 extremities. LABS: Labs show hemoglobin 9.3, white cell count 21,000. Sodium 153, potassium 3.4, chloride 112, BUN 78, serum creatinine 4.7. ASSESSMENT: 1. Acute kidney injury mostly acute tubular necrosis, currently somewhat improved. There is consideration for underlying acute GN as well. We will try and biopsy the patient during this admission. 2. Dysphagia associated vocal cord dysfunction, possible cerebrovascular accident. 3. Volume overload. Continue with the Lasix. 4. Hypernatremia secondary to decreased free water intake. Maintained on D5W. 5. Metabolic acidosis associated with renal failure, now better. 6. 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 7. Staphylococcus aureus pneumonia. PLAN: Continue D5W at 75 mL an hour. May continue with the Lasix to help with the volume overload. Repeat chest x-ray. Replace potassium and repeat labs in a.m.. MMODL / IJN: [id number] /
[2018-07-09] MEDS ORDERED: SODIUM CHLORIDE 0.45% 1,000 ML IV ONE (13:45)
--- NOTE | 2018-07-09 13:51 | XR ---
EXAMINATION TYPE: XR chest 1V DATE OF EXAM: 07/09/2018 COMPARISON: Prior chest x-ray 07/08/2018 HISTORY: Altered mental status and shortness of breath TECHNIQUE: frontal view of the chest is obtained on 2 images. FINDINGS: Left jugular central venous catheter has been placed, distal tip is at the cavoatrial junc tion level. There is no pneumothorax evident. Bibasilar increased density persists, the heart size is stable. Central vascularity and interstitium are increased. Left hemidiaphragm is obscured. Patient is rotated. IMPRESSION: Correlate for congestive heart failure with pleural effusions. Pneumonia not excluded.
--- NOTE | 2018-07-09 14:26 | P.PN ---
Subjective Progress Note Date: 07/09/18 This is a 68-year-old male patient who was in the intensive care unit for septic shock related to a staphylococcal pneumonia, urinary tract infection, metabolic acidosis, acute kidney injury. The patient has also previous history of alcoholism, previous history of pancreatitis, previous history of ERCP with insertion of a bile duct stent. The patient is known to us. The patient got treated in the intensive care unit for acute hypoxic respiratory failure and the patient required intubation mechanical ventilation for a staphylococcal pneumonia as cultured in his sputum and the staph was sensitive to assess 11, MSSA. The patient was intubated on 06/30/2018 and the patient was successfully extubated on 07/03/2018. The patient subsequently required BiPAP for breast are supported the patient developed some worsening in CHF/bilateral pleural effusion and edema. The patient was also placed on Lasix. Noted post exhibition the patient also developed dysphagia and some vocal cords edema resulting into restaurant assess and hoarseness and difficulty in speech. ENT evaluation was done. The ENT evaluation done by Dr. Street showed bilateral vocal cords hemorrhage and laryngitis. Vocal cord movement was not good and was anticipated in the vocal cord function was gradually improve and the patient was given Mycelex tortious. Regarding his dysphagia, the patient was noted to have limi torri pharyngeal movement, there was a concern towards possibility of a bulbar palsy and for that reason it was recommended for this patient to have an MRI. For now he is unable to swallow and the patient is still nothing by mouth. GI consultation has been obtained due to difficulty in swallowing and the patient is being considered for a PEG tube insertion. As far as his metabolic acidosis, this improved and the patient's hypotension also improved and resolved. The acute kidney injury was improving and the creatinine was on the decline. He did develop hypernatremia related to free water deficit and the patient was receiving IV fluids. This morning, the patient was requested to be transferred back to the intensive care unit as the patient was found to be more lethargic and obtunded. CAT scan of the brain was done on route to the ICU and it showed age-related atrophy and chronic small vessel ischemia without any acute intracranial process. The white cell count is slightly higher at 21.0. The patient is afebrile for now. Platelet count started to 62 and hemoglobin stable at 9.3.The chest x-ray from yesterday showed bilateral lower lobe pneumonia and apparently there was some slight improvement in the bilateral pulmonary infiltrates compared to previous films. I noted a blood gases from yesterday showed a pH of 7.29 with a pCO2 of 51 and pO2 of 115. The echocardiogram showed an ejection fraction of 50-55%, moderate MR, moderate pulmonary hypertension with a PA pressure of 44, rest of the cardiac structures were all within normal limits. Currently the patient is currently on IV Kefzol 2 g on a daily basis. The patient is receiving an S4 chronic anemia. He is also on Lasix 60 mg IV every 12 hours and don't of the right treatments around the clock and IV Solu Medrol 40 mg every 6 hours. He is also on D5 water at the rate of 75 mL an hour. Objective - Vital Signs Vital signs: Vital Signs Temp 97.6 F 07/09/18 05:09 Pulse 103 H 07/09/18 09:40 Resp 20 07/09/18 09:40 BP 155/76 07/09/18 09:40 Pulse Ox 99 07/09/18 09:40 Intake & Output 07/08/18 07/09/18 07/09/18 18:59 06:59 18:59 Output Total 1875 1750 Balance -1875 -1750 Weight 57 kg Output: Urine 1874 1750 Other: Voiding Method Indwelling Catheter Indwelling Catheter Indwelling Catheter ABP, PAP, CO, CI - Last Documented Arterial Blood Pressure 158/56 - Exam GENERAL EXAM: Lethargic, obtunded 68-year-old white male on BiPAP support pres sures of 12 and 5, and FiO2 50% HEAD: Normocephalic/atraumatic. EYES: Normal reaction of pupils, equal size. Conjunctiva pink, sclera white. NOSE: Clear with pink turbinates. THROAT: No erythema or exudates. NECK: No masses, no JVD, no thyroid enlargement, no adenopathy. CHEST: No chest wall deformity. Symmetrical expansion. LUNGS: Breath sounds bilaterally along with few scattered expiratory wheezes and rhonchi heard throughout the lung yi CVS: Regular rate and rhythm, normal S1 and S2, no gallops, no murmurs, no rubs ABDOMEN: Soft, nontender. No hepatosplenomegaly, normal bowel sounds, no guarding or rigidity. EXTREMITIES: No clubbing, no edema, no cyanosis, 2+ pulses and upper and lower extremities. MUSCULOSKELETAL: Muscle strength and tone normal. SPINE: No scoliosis or deformity SKIN: No rashes CENTRAL NERVOUS SYSTEM: No focal deficits, tone is normal in all 4 extremities. Diminished level of consciousness, withdraws to painful stimulation, occasional response to verbal stimulation. PSYCHIATRIC: Able to obtain a psychiatric evaluation due to the above-mentioned condition. - Labs CBC & Chem 7: 07/09/18 08:19 07/09/18 08:19 Labs: Abnormal Lab Results - Last 24 Hours (Table) 07/08/18 07/08/18 07/09/18 Range/Units 11:47 17:26 00:04 WBC (3.8-10.6) k/uL RBC (4.30-5.90) m/uL Hgb (13.0-17.5) gm/dL Hct (39.0-53.0) % MCV (80.0-100.0) fL MCH (25.0-35.0) pg RDW (11.5-15.5) % Neutrophils # (1.3-7.7) k/uL Lymphocytes # (1.0-4.8) k/uL Sodium (137-145) mmol/L Potassium (3.5-5.1) mmol/L Chloride (98-107) mmol/L BUN (9-20) mg/dL Creatinine (0.66-1.25) mg/dL Glucose (74-99) mg/dL POC Glucose (mg/dL) 149 H 136 H 137 H (75-99) mg/dL Calcium (8.4-10.2) mg/dL 07/09/18 07/09/18 07/09/18 Range/Units 05:54 08:19 08:19 WBC 21.0 H (3.8-10.6) k/uL RBC 2.57 L (4.30-5.90) m/uL Hgb 9.3 L (13.0-17.5) gm/dL Hct 27.1 L (39.0-53.0) % MCV 105.4 H (80.0-100.0) fL MCH 36.0 H (25.0-35.0) pg RDW 20.1 H (11.5-15.5) % Neutrophils # 20.0 H (1.3-7.7) k/uL Lymphocytes # 0.3 L (1.0-4.8) k/uL Sodium 153 H (137-145) mmol/L Potassium 3.4 L (3.5-5.1) mmol/L Chloride 112 H (98-107) mmol/L BUN 78 H (9-20) mg/dL Creatinine 4.77 H (0.66-1.25) mg/dL Glucose 128 H (74-99) mg/dL POC Glucose (mg/dL) 143 H (75-99) mg/dL Calcium 8.3 L (8.4-10.2) mg/dL Assessment and Plan Plan: #1. Acute hypoxemic respiratory failure requiring intubation and mechanical ventilation for staph pneumonia, and the sputum culture showed staph was se nsitive to oxacillin/MSSA and the patient was being treated with IV Solu.. Patient was intubated on June 30, and successfully extubated on July 03, and the patient had bilateral lower lobe pulmonary infiltrate was improving on yesterday's chest x-ray. The patient got transferred to the ICU today because of diminished level of consciousness and worsening in the mentation and respiratory status. On route to the ICU, the patient underwent a CAT scan of the head that showed age-related atrophy without any acute abnormalities. #2. Dysphagia related to vocal cord edema, and redness, ENT evaluation was obtained, please refer to their note #3. Hypernatremia, likely related to free water deficit, patient is nothing by mouth for dysphagia, the patient is still on IV Lasix and the patient is receiving free water in the form of D5 at the rate of 75 mL an hour. #4. Possible tract infection, cultures are negative #5. Metabolic acidosis and hypotension secondary to septic shock, resolved and the most recent blood work shows a component of respiratory acidosis with a pH of 7.29 and a pCO2 51 and the patient was on BiPAP for respiratory support and rest or acidosis. #6. History of acute kidney injury [facility] improving and the creatinine is down to 4.7 #7. Gastrointestinal bleeding, status post 2 units of PRBCs #8. History of hypothyroidism #9. Full CODE STATUS #10. Thrombocytopenia, improving Plan: The patient is currently on a BiPAP and will continue BiPAP support. We'll obtain a stat chest x-ray. We'll obtain a stat blood gas. We will insert a triple lumen catheter. We'll give the patient a liter of half-normal saline and following that will increase the D5 water to 150 mL an hour. Keep him nothing by mouth for now. Broadened antibiotic coverage to use IV Zosyn. We'll monitored urine output. Monitor the electrolytes. Stop the IV. Aspiration precautions. We'll continue to follow make further recommendations based on his progress.
[2018-07-09] MEDS: SODIUM CHLORIDE 0.45% 1,000 ML IV SCH ×3 (15:20→19:00)
--- NOTE | 2018-07-09 15:28 | PCN ---
PROCEDURE NOTE TRIPLE-LUMEN CATHETER INSERTION: Site of insertion of the left IJ. PREOPERATIVE DIAGNOSIS: Hypotension. POSTOPERATIVE DIAGNOSIS: Hypotension. A time-out was completed verifying correct patient, procedure, site, positioning, and implant(s) or special equipment if applicable. The patient was placed in a dependent position appropriate for triple lumen catheter placement based on the vein to be cannulated. The patient's left neck was prepped and draped in sterile fashion. 1% Lidocaine was used to anesthetize the surrounding skin area. A triple lumen 9F Cordis catheter was introduced into the internal jugular vein using Seldinger technique. The catheter was threaded smoothly over the guide wire and appropriate blood return was obtained. Each lumen of the catheter was evacuated of air and flushed with sterile saline. The catheter was then sutured in place to the skin and a sterile dressing applied. Perfusion to the extremity distal to the point of catheter insertion was checked and found to be adequate. This was done without ultrasound guidance. Chest x-ray showed no pneumothorax and the line is in a good location. MMODL / IJN: [id number] /
[2018-07-09 19:07] LABS: Glucose,Whole Blood 239 mg/dL (75-99)
[2018-07-09 19:14] LABS: Calcium 7.2 mg/dL (8.4-10.2); Potassium 3.2 mmol/L (3.5-5.1); Total Bilirubin 1.9 mg/dL (0.2-1.3); Total Protein 4.1 g/dL (6.3-8.2)
--- NOTE | 2018-07-09 20:26 | P.PN ---
Subjective Progress Note Date: 07/09/18 Principal diagnosis: Anemia, history of chronic pancreatitis, oropharyngeal dysphagia Patient is seen lying in bed today lying in bed. He is arousable but not interactive. No acute events reported per nursing. Objective - Vital Signs Vital signs: Vital Signs Temp 97.2 F L 07/09/18 19:00 Pulse 89 07/09/18 20:12 Resp 15 07/09/18 19:00 BP 109/53 07/09/18 19:00 Pulse Ox 100 07/09/18 19:00 Intake & Output 07/09/18 07/09/18 07/10/18 06:59 18:59 06:59 Intake Total 2840 153 Output Total 1750 1060 545 Balance -1750 1780 -392 Weight 57 kg 57 kg Intake: IV 2840 153 CVP 15 3 Dextrose 5% in Water 1, 825 150 000 ml @ 150 mls/hr IV . Q6H40M ANTHONY Rx#:[id number] Sodium Chloride 0.45% 1, 2000 000 ml @ 999 mls/hr IV . Q1H1M ONE Rx#:[id number] Output: Urine 1750 1060 45 Stool 500 Other: Voiding Method Indwelling Catheter Indwelling Catheter ABP, PAP, CO, CI - Last Documented Arterial Blood Pressure 158/56 - Exam On physical examination, patient appears comfortable in no apparent distress. HEAD: Normocephalic, atraumatic. EYES: No scleral icterus. No conjunctival injection. MOUTH: No lesions, tongue midline. NECK: Trachea midline, no gross abnormalities. CHEST: Coarse respiratory noises in all lung yi. HEART: S1-S2 appreciated. ABDOMEN: Soft, obese. Bowel sounds are positive. No organomegaly. No guarding or rigidity. EXTREMITIES: No pedal edema. SKIN: No rashes, no jaundice. NEUROLOGIC: Arousable but not interactive - Labs CBC & Chem 7: 07/09/18 08:19 07/09/18 18:46 Labs: Abnormal Lab Results - Last 24 Hours (Table) 07/09/18 07/09/18 07/09/18 Range/Units 00:04 05:54 08:19 WBC (3.8-10.6) k/uL RBC (4.30-5.90) m/uL Hgb (13.0-17.5) gm/dL Hct (39.0-53.0) % MCV (80.0-100.0) fL MCH (25.0-35.0) pg RDW (11.5-15.5) % Neutrophils # (1.3-7.7) k/uL Lymphocytes # (1.0-4.8) k/uL ABG pH (7.35-7.45) ABG pCO2 (35-45) mmHg ABG pO2 (83-108) mmHg ABG HCO3 (21-25) mmol/L ABG Total CO2 (19-24) mmol/L Sodium 153 H (137-145) mmol/L Potassium 3.4 L (3.5-5.1) mmol/L Chloride 112 H (98-107) mmol/L BUN 78 H (9-20) mg/dL Creatinine 4.77 H (0.66-1.25) mg/dL Glucose 128 H (74-99) mg/dL POC Glucose (mg/dL) 137 H 143 H (75-99) mg/dL Calcium 8.3 L (8.4-10.2) mg/dL Total Bilirubin (0.2-1.3) mg/dL AST (17-59) U/L ALT (21-72) U/L Alkaline Phosphatase (38-126) U/L Total Protein (6.3-8.2) g/dL Albumin (3.5-5.0) g/dL 07/09/18 07/09/18 07/09/18 Range/Units 08:19 11:51 12:35 WBC 21.0 H (3.8-10.6) k/uL RBC 2.57 L (4.30-5.90) m/uL Hgb 9.3 L (13.0-17.5) gm/dL Hct 27.1 L (39.0-53.0) % MCV 105.4 H (80.0-100.0) fL MCH 36.0 H (25.0-35.0) pg RDW 20.1 H (11.5-15.5) % Neutrophils # 20.0 H (1.3-7.7) k/uL Lymphocytes # 0.3 L (1.0-4.8) k/uL ABG pH 7.30 L (7.35-7.45) ABG pCO2 59 H (35-45) mmHg ABG pO2 74 L (83-108) mmHg ABG HCO3 29 H (21-25) mmol/L ABG Total CO2 30 H (19-24) mmol/L Sodium (137-145) mmol/L Potassium (3.5-5.1) mmol/L Chloride (98-107) mmol/L BUN (9-20) mg/dL Creatinine (0.66-1.25) mg/dL Glucose (74-99) mg/dL POC Glucose (mg/dL) 156 H (75-99) mg/dL Calcium (8.4-10.2) mg/dL Total Bilirubin (0.2-1.3) mg/dL AST (17-59) U/L ALT (21-72) U/L Alkaline Phosphatase (38-126) U/L Total Protein (6.3-8.2) g/dL Albumin (3.5-5.0) g/dL 07/09/18 07/09/18 Range/Units 18:46 19:06 WBC (3.8-10.6) k/uL RBC (4.30-5.90) m/uL Hgb (13.0-17.5) gm/dL Hct (39.0-53.0) % MCV (80.0-100.0) fL MCH (25.0-35.0) pg RDW (11.5-15.5) % Neutrophils # (1.3-7.7) k/uL Lymphocytes # (1.0-4.8) k/uL ABG pH (7.35-7.45) ABG pCO2 (35-45) mmHg ABG pO2 (83-108) mmHg ABG HCO3 (21-25) mmol/L ABG Total CO2 (19-24) mmol/L Sodium 146 H (137-145) mmol/L Potassium 3.2 L (3.5-5.1) mmol/L Chloride 111 H (98-107) mmol/L BUN 75 H (9-20) mg/dL Creatinine 4.24 H (0.66-1.25) mg/dL Glucose 199 H (74-99) mg/dL POC Glucose (mg/dL) 239 H (75-99) mg/dL Calcium 7.2 L (8.4-10.2) mg/dL Total Bilirubin 1.9 H (0.2-1.3) mg/dL AST 591 H (17-59) U/L ALT 97 H (21-72) U/L Alkaline Phosphatase 319 H (38-126) U/L Total Protein 4.1 L (6.3-8.2) g/dL Albumin 2.0 L (3.5-5.0) g/dL Assessment and Plan (1) Macrocytic anemia Narrative/Plan: Patient with findings of macrocytic anemia on laboratory evaluation. No signs or symptoms of GI bleeding. The patient is having frequent stools with no hematochezia or melena reported. Hemoglobin remained stable. Macrocytic indices. Current Visit: Yes Status: Acute Priority: Medium Code(s): D53.9 - NUTRITIONAL ANEMIA, UNSPECIFIED SNOMED Code(s): 99918344 (2) Pancreatitis Narrative/Plan: History of chronic pancreatitis. Current Visit: No Status: Acute Code(s): K85.9 - ACUTE PANCREATITIS, UNSPECIFIED * DO NOT USE * SNOMED Code(s): 55285505 (3) Oropharyngeal dysphagia Narrative/Plan: Patient to denies any problem swallowing prior to hospitalization, now failing speech and bedside swallow evaluation, likely secondary to acute illness and recent intubation, however CVA is on the differential and the patient refuses transfer for further neurologic workup. Current Visit: Yes Status: Acute Code(s): R13.12 - DYSPHAGIA, OROPHARYNGEAL PHASE SNOMED Code(s): 59514404 Plan: Supportive care Nothing by mouth The patient had been scheduled for EGD with PEG tube placement on the weekend, however this was postponed due to the patient's poor respiratory status Overall clinically worsened today with decreased mentation and worsening respiratory function the patient was transferred to the ICU and the procedure will be put on hold at this time Extensive discussion with the primary care team about the patient and he will be started on TPN therapy Continue to monitor stool output, testing for Clostridium difficile negative Continue to monitor hemoglobin and hematocrit and transfuse as needed Hematology service following the patient, at this point is felt that the patient's anemia is likely multifactorial secondary to nutritional deficiencies, toxic effect of alcohol, iron deficiency etc. Gastroenterology will continue to follow, thank you for allowing us to participate in the care of the patient
[2018-07-09] MEDS: POTASSIUM CHLORIDE 20 MEQ in WATER FOR INJECTION 1 100ML.BAG IVPB SCH ×2 (21:07→23:13)
[2018-07-09 23:40] LABS: Glucose,Whole Blood 212 mg/dL (75-99)
[2018-07-10] MEDS: INSULIN ASPART (NovoLOG) 100 UNIT/ML VIAL SQ SCH ×4 (00:48→18:23)
[2018-07-10] MEDS: DEXTROSE 5% IN WATER 1,000 ML IV SCH ×2 (00:48→09:27)
--- NOTE | 2018-07-10 00:58 | PN ---
PROGRESS NOTE DATE OF SERVICE: July 09, 2018. PRESENTING COMPLAINT: Lethargic. INTERVAL HISTORY: This patient was seen by me earlier today this morning. The patient has been in the hospital for multiple issues, including pneumonia, UTI and metabolic acidosis, acute kidney injury. The patient has a known history of alcoholism. The patient has been status post on the ventilator and was extubated on July 03, 2018 and has also required BiPAP. The patient is also having dysphagia and hoarseness, difficulty in swallowing and seen by Dr. Palomo and vocal cord movement was not good. Gastroenterology consultation was obtained to get a PEG tube. This morning patient has been more rattly in the chest. The patient this morning was found to be more lethargic. Some congestion anteriorly in the chest. I had ordered a CT scan of the chest. Aspiration precautions. Neuro checks. Talked briefly to Vale from the Pulmonary team and transferred the patient to the ICU. The patient has previously expressed through the notes of my colleague that he did not want anybody else to be informed. Did not want any neurological evaluation in terms of being transferred out. He has no other power of document review attorney. I did speak to the nurse refractory manager on the 4th floor that I am going to write consent in the patient's best interest for an IV access and patient will be moved to the ICU. REVIEW OF SYSTEMS: Cannot be done as patient is rather lethargic. CURRENT MEDICATIONS: Reviewed that include DuoNeb. I did order aspirin and IV Synthroid, IV Solu-Medrol, IV Protonix. PHYSICAL EXAMINATION: VITAL SIGNS: On examination temperature 97.6, pulse 101, respiration 20, blood pressure 160/84, pulse ox 96% on 4 L. GENERAL APPEARANCE: Lethargic. Lying in bed but arousable. EYES: Pupils equal. Conjunctivae sluggish. HEENT: External appearance of nose and ears normal. Oral cavity dry. NECK: JVD unable to assess. Mass not palpable. Poor oral hygiene. RESPIRATORY: Effort increased. LUNGS: Diminished breath sounds. CARDIOVASCULAR: 1st and 2nd sounds normal. No edema. ABDOMEN: Soft, nontender. Liver and spleen not palpable. PSYCHIATRY: Patient lethargic to be assessed. NEUROLOGICAL: Patient has tone in all the 4 limbs. INVESTIGATIONS: White count 21, hemoglobin 9.3. Sodium 146, potassium 3.2, BUN 25, creatinine 4.24. AST, ALT 591 and 97. Ammonia less than 9. Albumin 2. CT scan of the brain shows age- related changes. Chest x-ray film personally reviewed by me shows increasing opacity. ASSESSMENT: 1. Possible right lower lobe aspiration pneumonia. 2. Acute metabolic encephalopathy. No obvious stroke reported on the CT scan. 3. Acute hypoxic respiratory failure, status post ventilator assistance. 4. Pneumonia from MSSA. 5. Dysphagia related to vocal cord edema. 6. Acute hypernatremia, likely due to free water deficit. 7. Metabolic acidosis. 8. Hypertensive shock fluid deficit septic shock. 9. Acute kidney injury likely acute tubular necrosis. 10.Status post acute gastrointestinal bleed requiring 2 units of packed red blood cells. 11.Hypothyroidism. 12.CODE STATUS: FULL CODE. 13.Thrombocytopenia due to sepsis, improving. PLAN: The patient has moved to the ICU, given IV fluids. The patient has had a course of antibiotics. Prognosis remains guarded. Neuro checks will be maintained. Spoke to nurse from the ICU. Total time spent was about 1 hour. MMAMANUELL / HARPERN: [id number] /
[2018-07-10] MEDS: IPRATROPIUM-ALBUTEROL 3 ML NEB INHALATION SCH ×6 (03:34→23:57)
[2018-07-10] MEDS ORDERED: FUROSEMIDE 10 MG/ML 10 ML VIAL IV STA (05:43)
[2018-07-10 06:23] LABS: Calcium 7.5 mg/dL (8.4-10.2); Magnesium 1.6 mg/dL (1.6-2.3); Phosphorus 4.2 mg/dL (2.5-4.5); Potassium 3.4 mmol/L (3.5-5.1)
[2018-07-10 06:31] LABS: Glucose,Whole Blood 88 mg/dL (75-99)
[2018-07-10] MEDS: methylPREDNISolone SOD SUCCI 40 MG/ML 1 ML VIAL IV SCH ×2 (06:47→16:32)
[2018-07-10 07:07] LABS: Anisocytosis Moderate; Basophils % (A) 0 %; Eosinophils % (A) 0 %; Hypochromasia Marked; Lymphocytes # (A) 0.3 k/uL (1.0-4.8); Lymphocytes % (A) 1 %; MCH 33.2 pg (25.0-35.0); MCHC 31.8 g/dL (31.0-37.0); MCV 104.4 fL (80.0-100.0); Macrocytosis Marked; Mean Platelet Volume 8.5; Monocytes # (A) 0.4 k/uL (0-1.0); Monocytes % (A) 2 %; Neutrophils # (A) 20.5 k/uL (1.3-7.7); Neutrophils % (A) 97 %; Platelet Count 187 k/uL (150-450); RBC 1.65 m/uL (4.30-5.90); WBC 21.2 k/uL (3.8-10.6)
--- NOTE | 2018-07-10 07:19 | XR ---
EXAMINATION TYPE: XR chest 1V portable DATE OF EXAM: 07/10/2018 HISTORY: Shortness of breath. COMPARISON: 07/09/2018 TECHNIQUE: Single view of the chest is submitted. FINDINGS: Demonstrated are scattered senescent parenchymal change. Increasing perihilar and basilar infiltrates as well as pleural effusions. Correlate for underlying c ongestive failure. Infiltrates of other etiology not excluded. Central venous line unchanged. The heart is stable. Hilar and mediastinal structures are within normal limits. Degenerative changes are seen of the dorsal spine. IMPRESSION: 1. Increasing perihilar and basilar infiltrates as well as pleural effusions. Correlate for underlyi ng congestive failure. Infiltrates of other etiology not excluded.
[2018-07-10 07:35] LABS: HGB 5.5 gm/dL (13.0-17.5)
[2018-07-10 07:36] LABS: HCT 17.2 % (39.0-53.0)
[2018-07-10 07:48] LABS: Poikilocytosis (M) Present
[2018-07-10] MEDS ORDERED: ASPIRIN 300 MG SUPP RECTAL SCH (09:00)
--- NOTE | 2018-07-10 09:23 | P.PN ---
Subjective Progress Note Date: 07/10/18 Principal diagnosis: GI bleed. Anemia. History chronic pancreatitis. Oropharyngeal dysphagia. Alert. Afebrile. Passed large blood tinged bowel movement this morning per nursing with a drop in hemoglobin 5.5 previously 9.3. Receiving 2 units of blood. BUN 73. Creatinine 4.3. No emesis. Minimal abdominal discomfort. Central line placed. PEG tube on hold TPN requested presently not infusing. Objective - Vital Signs Vital signs: Vital Signs Temp 98.8 F 07/10/18 08:00 Pulse 90 07/10/18 09:00 Resp 18 07/10/18 09:00 BP 130/62 07/10/18 09:00 Pulse Ox 97 07/10/18 09:00 Intake & Output 07/09/18 07/10/18 07/10/18 18:59 06:59 18:59 Intake Total 2840 1290 129 Output Total 1060 915 130 Balance 1780 375 -1 Weight 57 kg 66.1 kg Intake: IV 2840 1290 129 CVP 15 30 9 Calcium Gluconate 1 gm In 100 Sodium Chloride 0.9% 100 ml @ 100 mls/hr IVPB BID [facility] Rx#:[id number] Dextrose 5% in Water 1, 825 1060 120 000 ml @ 40 mls/hr IV . Q24H [facility] Rx#:[id number] Potassium Chloride 20 meq 100 In Water For Injection 1 100ml.bag @ 50 mls/hr IVPB Q2H [facility] Rx#: [id number] Sodium Chloride 0.45% 1, 2000 000 ml @ 999 mls/hr IV . Q1H1M [facility] Rx#:[id number] Oral 0 Output: Urine 1060 415 130 Stool 500 Other: Voiding Method Indwelling Catheter Indwelling Catheter ABP, PAP, CO, CI - Last Documented Arterial Blood Pressure 158/56 - Exam General appearance: The patient is alert, oriented, in no acute distress. HET: Head is normocephalic and atraumatic. Pupils are equal and reactive. Oropharynx is clear without lesions. Neck: Supple without lymphadenopathy. Trachea midline. Heart: S1 S2. Regular rate and rhythm. Lungs: No crackles or wheezes are heard. Abdomen: Soft, nontender, nondistended with bowel sounds. No peritoneal signs. No palpable organomegaly or masses. Extremities: Normal skin color and turgor. No cyanosis, rash, ulceration, clubbing, or edema. Radial and pedal pulses are 2/4 bilaterally. Neurological: No focal deficits. Strength and sensation are grossly intact. - Labs CBC & Chem 7: 07/10/18 06:50 07/10/18 05:23 Labs: Abnormal Lab Results - Last 24 Hours (Table) 07/09/18 07/09/18 07/09/18 Range/Units 08:19 08:19 11:51 WBC 21.0 H (3.8-10.6) k/uL RBC 2.57 L (4.30-5.90) m/uL Hgb 9.3 L (13.0-17.5) gm/dL Hct 27.1 L (39.0-53.0) % MCV 105.4 H (80.0-100.0) fL MCH 36.0 H (25.0-35.0) pg RDW 20.1 H (11.5-15.5) % Neutrophils # 20.0 H (1.3-7.7) k/uL Lymphocytes # 0.3 L (1.0-4.8) k/uL ABG pH (7.35-7.45) ABG pCO2 (35-45) mmHg ABG pO2 (83-108) mmHg ABG HCO3 (21-25) mmol/L ABG Total CO2 (19-24) mmol/L Sodium 153 H (137-145) mmol/L Potassium 3.4 L (3.5-5.1) mmol/L Chloride 112 H (98-107) mmol/L BUN 78 H (9-20) mg/dL Creatinine 4.77 H (0.66-1.25) mg/dL Glucose 128 H (74-99) mg/dL POC Glucose (mg/dL) 156 H (75-99) mg/dL Calcium 8.3 L (8.4-10.2) mg/dL Total Bilirubin (0.2-1.3) mg/dL AST (17-59) U/L ALT (21-72) U/L Alkaline Phosphatase (38-126) U/L Total Protein (6.3-8.2) g/dL Albumin (3.5-5.0) g/dL 07/09/18 07/09/18 07/09/18 Range/Units 12:35 18:46 19:06 WBC (3.8-10.6) k/uL RBC (4.30-5.90) m/uL Hgb (13.0-17.5) gm/dL Hct (39.0-53.0) % MCV (80.0-100.0) fL MCH (25.0-35.0) pg RDW (11.5-15.5) % Neutrophils # (1.3-7.7) k/uL Lymphocytes # (1.0-4.8) k/uL ABG pH 7.30 L (7.35-7.45) ABG pCO2 59 H (35-45) mmHg ABG pO2 74 L (83-108) mmHg ABG HCO3 29 H (21-25) mmol/L ABG Total CO2 30 H (19-24) mmol/L Sodium 146 H (137-145) mmol/L Potassium 3.2 L (3.5-5.1) mmol/L Chloride 111 H (98-107) mmol/L BUN 75 H (9-20) mg/dL Creatinine 4.24 H (0.66-1.25) mg/dL Glucose 199 H (74-99) mg/dL POC Glucose (mg/dL) 239 H (75-99) mg/dL Calcium 7.2 L (8.4-10.2) mg/dL Total Bilirubin 1.9 H (0.2-1.3) mg/dL AST 591 H (17-59) U/L ALT 97 H (21-72) U/L Alkaline Phosphatase 319 H (38-126) U/L Total Protein 4.1 L (6.3-8.2) g/dL Albumin 2.0 L (3.5-5.0) g/dL 07/09/18 07/10/18 07/10/18 Range/Units 23:38 05:23 06:50 WBC 21.2 H (3.8-10.6) k/uL RBC 1.65 L (4.30-5.90) m/uL Hgb 5.5 L* D (13.0-17.5) gm/dL Hct 17.2 L* (39.0-53.0) % MCV 104.4 H (80.0-100.0) fL MCH (25.0-35.0) pg RDW 20.0 H (11.5-15.5) % Neutrophils # 20.5 H (1.3-7.7) k/uL Lymphocytes # 0.3 L (1.0-4.8) k/uL ABG pH (7.35-7.45) ABG pCO2 (35-45) mmHg ABG pO2 (83-108) mmHg ABG HCO3 (21-25) mmol/L ABG Total CO2 (19-24) mmol/L Sodium (137-145) mmol/L Potassium 3.4 L (3.5-5.1) mmol/L Chloride 110 H (98-107) mmol/L BUN 73 H (9-20) mg/dL Creatinine 4.33 H (0.66-1.25) mg/dL Glucose (74-99) mg/dL POC Glucose (mg/dL) 212 H (75-99) mg/dL Calcium 7.5 L (8.4-10.2) mg/dL Total Bilirubin (0.2-1.3) mg/dL AST (17-59) U/L ALT (21-72) U/L Alkaline Phosphatase (38-126) U/L Total Protein (6.3-8.2) g/dL Albumin (3.5-5.0) g/dL Assessment and Plan (1) GIB (gastrointestinal bleeding) Current Visit: Yes Status: Acute Code(s): K92.2 - GASTROINTESTINAL HEMORRHAGE, UNSPECIFIED SNOMED Code(s): 76034764 (2) Macrocytic anemia Current Visit: Yes Status: Acute Priority: Medium Code(s): D53.9 - NUTRITIONAL ANEMIA, UNSPECIFIED SNOMED Code(s): 44396178 (3) MUMTAZ (acute kidney injury) Current Visit: Yes Status: Acute Code(s): N17.9 - ACUTE KIDNEY FAILURE, UNSPECIFIED SNOMED Code(s): 55630193 (4) Acute blood loss anemia Current Visit: Yes Status: Acute Code(s): D62 - ACUTE POSTHEMORRHAGIC ANEMIA SNOMED Code(s): 245239866 (5) Oropharyngeal dysphagia Current Visit: Yes Status: Acute Code(s): R13.12 - DYSPHAGIA, OROPHARYNGEAL PHASE SNOMED Code(s): 59368400 (6) Pancreatitis Current Visit: No Status: Acute Code(s): K85.9 - ACUTE PANCREATITIS, UNSPECIFIED * DO NOT USE * SNOMED Code(s): 37788872 Plan: 1. Nothing by mouth. Patient scheduled to received 2 units of blood. CBC every 6 hours. Protonix 40 mg twice daily. EGD PEG tube insertion contingent on clinical course. Will follow closely with you. Assessment and plan a care discussed with Dr. Bean.
[2018-07-10] MEDS: PANTOPRAZOLE 40 MG/10 ML VIAL IVP SCH ×2 (09:26→20:51)
[2018-07-10] MEDS: LEVOTHYROXINE IVP 100 MCG/5 ML VIAL IV SCH (09:27)
[2018-07-10] MEDS: CALCIUM GLUCONATE 1 GM in SODIUM CHLORIDE 0.9% 100 ML IVPB SCH ×2 (09:28→20:51)
[2018-07-10] MEDS: DEXTROSE 5%-0.45% NACL 1,000 ML IV SCH ×2 (09:32→23:00)
[2018-07-10] MEDS: PIPERACILLIN-TAZOBACTAM 3.375 GM in SODIUM CHLORIDE 0.9% 100 ML IVPB SCH ×2 (10:29→20:50)
[2018-07-10 11:43] LABS: Glucose,Whole Blood 120 mg/dL (75-99)
[2018-07-10] MEDS ORDERED: MVI, ADULT NO.4 WITH VIT K 10 ML, TRACE (CONC-1ML/DOSE) 1 ML in AMINO ACID 5%-D15W+LYTE... IV ONE ×3 (12:00)
--- NOTE | 2018-07-10 12:31 | P.PN ---
Subjective Progress Note Date: 07/10/18 This is a 68-year-old male patient who was in the intensive care unit for septic shock related to a staphylococcal pneumonia, urinary tract infection, metabolic acidosis, acute kidney injury. The patient has also previous history of alcoholism, previous history of pancreatitis, previous history of ERCP with insertion of a bile duct stent. The patient is known to us. The patient got treated in the intensive care unit for acute hypoxic respiratory failure and the patient required intubation mechanical ventilation for a staphylococcal pneumonia as cultured in his sputum and the staph was sensitive to assess 11, MSSA. The patient was intubated on 06/30/2018 and the patient was successfully extubated on 07/03/2018. The patient subsequently required BiPAP for breast are supported the patient developed some worsening in CHF/bilateral pleural effusion and edema. The patient was also placed on Lasix. Noted post exhibition the patient also developed dysphagia and some vocal cords edema resulting into restaurant assess and hoarseness and difficulty in speech. ENT evaluation was done. The ENT evaluation done by Dr. Street showed bilateral vocal cords hemorrhage and laryngitis. Vocal cord movement was not good and was anticipated in the vocal cord function was gradually improve and the patient was given Mycelex tortious. Regarding his dysphagia, the patient was noted to have limi torri pharyngeal movement, there was a concern towards possibility of a bulbar palsy and for that reason it was recommended for this patient to have an MRI. For now he is unable to swallow and the patient is still nothing by mouth. GI consultation has been obtained due to difficulty in swallowing and the patient is being considered for a PEG tube insertion. As far as his metabolic acidosis, this improved and the patient's hypotension also improved and resolved. The acute kidney injury was improving and the creatinine was on the decline. He did develop hypernatremia related to free water deficit and the patient was receiving IV fluids. This morning, the patient was requested to be transferred back to the intensive care unit as the patient was found to be more lethargic and obtunded. CAT scan of the brain was done on route to the ICU and it showed age-related atrophy and chronic small vessel ischemia without any acute intracranial process. The white cell count is slightly higher at 21.0. The patient is afebrile for now. Platelet count started to 62 and hemoglobin stable at 9.3.The chest x-ray from yesterday showed bilateral lower lobe pneumonia and apparently there was some slight improvement in the bilateral pulmonary infiltrates compared to previous films. I noted a blood gases from yesterday showed a pH of 7.29 with a pCO2 of 51 and pO2 of 115. The echocardiogram showed an ejection fraction of 50-55%, moderate MR, moderate pulmonary hypertension with a PA pressure of 44, rest of the cardiac structures were all within normal limits. Currently the patient is currently on IV Kefzol 2 g on a daily basis. The patient is receiving an S4 chronic anemia. He is also on Lasix 60 mg IV every 12 hours and don't of the right treatments around the clock and IV Solu Medrol 40 mg every 6 hours. He is also on D5 water at the rate of 75 mL an hour. On today's evaluation of 07/10/2018, the patient is much more awake and alert compared to yesterday. The patient was given IV fluids throughout the night and the patient responded nicely of the sodium level dropped down to 145. The rest of the electrolytes are essentially within normal limits with a potassium level of 3.4 with a chloride level of 110. Serum bicarbonate 29. The creatinine is still abnormal with a creatinine level of 4.3 with a BUN of 73. Overnight, the patient was given a dose of Lasix despite him being intravascular depleted and having a very low CVP. This morning the CVP still low. I started on IV fluids again and currently is on D5 half-normal saline at the rate of 75 mL's an hour. Urine output is in order of 30-40 mL's an hour. He is on oxygen at 4 L per minute nasal cannula. He declined using the BiPAP overnight. His chest x-ray from today increasing perihilar and basilar infiltrate as well as pleural effusion. This could be CHF although an aspiration pneumonia cannot be com pletely excluded. Note that the patient has been nothing by mouth for the past 1 week at least due to difficulty in swallowing. This evolved following his intubation mechanical ventilation. Note that he has been diagnosed having an MSSA pneumonia. I started him back on antibiotics and currently is on IV Zosyn and he is afebrile. White cell count is elevated at 21.2. Hemoglobin dropped down to 5.5 this morning and this was attributed to a large bloody bowel movement that occurred earlier this morning. I was told that the patient had a bright red blood per rectum and large amounts and this obviously contributed to his massive drop in hemoglobin which is down to 5.5. His platelet count is at 187. Coagulation profile from admission was within normal limits. Objective - Vital Signs Vital signs: Vital Signs Temp 98.6 F 07/10/18 12:13 Pulse 96 07/10/18 12:13 Resp 18 07/10/18 12:13 BP 136/67 07/10/18 12:13 Pulse Ox 95 07/10/18 12:13 Intake & Output 07/09/18 07/10/18 07/10/18 18:59 06:59 18:59 Intake Total 2840 1290 372 Output Total 1060 915 205 Balance 1780 375 167 Weight 57 kg 66.1 kg 66.1 kg Intake: IV 2840 1290 272 CVP 15 30 12 Calcium Gluconate 1 gm In 100 100 Sodium Chloride 0.9% 100 ml @ 100 mls/hr IVPB BID [facility] Rx#:[id number] Dextrose 5% in Water 1, 825 1060 160 000 ml @ 40 mls/hr IV . Q24H [facility] Rx#:[id number] Potassium Chloride 20 meq 100 In Water For Injection 1 100ml.bag @ 50 mls/hr IVPB Q2H [facility] Rx#: [id number] Sodium Chloride 0.45% 1, 2000 000 ml @ 999 mls/hr IV . Q1H1M [facility] Rx#:[id number] Intake, IV Titration 100 Amount Piperacillin-Tazobactam 3 100 .375 gm In Sodium Chloride 0.9% 100 ml @ 25 mls/hr IVPB Q12HR [facility] Rx #:[id number] Oral 0 Blood Product 0 Rc As-1 Unit 0 [id number] Output: Urine 1060 415 205 Stool 500 Other: Voiding Method Indwelling Catheter Indwelling Catheter Indwelling Catheter ABP, PAP, CO, CI - Last Documented Arterial Blood Pressure 158/56 - Exam GENERAL EXAM: Lethargic, obtunded 68-year-old white male on oxygen at 4 L per nasal cannula HEAD: Normocephalic/atraumatic. EYES: Normal reaction of pupils, equal size. Conjunctiva pink, sclera white. NOSE: Clear with pink turbinates. THROAT: No erythema or exudates. NECK: No masses, no JVD, no thyroid enlargement, no adenopathy. CHEST: No chest wall deformity. Symmetrical expansion. LUNGS: Breath sounds bilaterally along with few scattered expiratory wheezes and rhonchi heard throughout the lung yi CVS: Regular rate and rhythm, normal S1 and S2, no gallops, no murmurs, no rubs ABDOMEN: Soft, nontender. No hepatosplenomegaly, normal bowel sounds, no guarding or rigidity. EXTREMITIES: No clubbing, no edema, no cyanosis, 2+ pulses and upper and lower extremities. MUSCULOSKELETAL: Muscle strength and tone normal. SPINE: No scoliosis or deformity SKIN: No rashes CENTRAL NERVOUS SYSTEM: No focal deficits, tone is normal in all 4 extremities. Diminished level of consciousness, withdraws to painful stimulation, occasional response to verbal stimulation. PSYCHIATRIC: Able to obtain a psychiatric evaluation due to the above-mentioned condition. - Labs CBC & Chem 7: 07/10/18 06:50 07/10/18 05:23 Labs: Abnormal Lab Results - Last 24 Hours (Table) 07/09/18 07/09/18 07/09/18 Range/Units 12:35 18:46 19:06 WBC (3.8-10.6) k/uL RBC (4.30-5.90) m/uL Hgb (13.0-17.5) gm/dL Hct (39.0-53.0) % MCV (80.0-100.0) fL RDW (11.5-15.5) % Neutrophils # (1.3-7.7) k/uL Lymphocytes # (1.0-4.8) k/uL ABG pH 7.30 L (7.35-7.45) ABG pCO2 59 H (35-45) mmHg ABG pO2 74 L (83-108) mmHg ABG HCO3 29 H (21-25) mmol/L ABG Total CO2 30 H (19-24) mmol/L Sodium 146 H (137-145) mmol/L Potassium 3.2 L (3.5-5.1) mmol/L Chloride 111 H (98-107) mmol/L BUN 75 H (9-20) mg/dL Creatinine 4.24 H (0.66-1.25) mg/dL Glucose 199 H (74-99) mg/dL POC Glucose (mg/dL) 239 H (75-99) mg/dL Calcium 7.2 L (8.4-10.2) mg/dL Total Bilirubin 1.9 H (0.2-1.3) mg/dL AST 591 H (17-59) U/L ALT 97 H (21-72) U/L Alkaline Phosphatase 319 H (38-126) U/L Total Protein 4.1 L (6.3-8.2) g/dL Albumin 2.0 L (3.5-5.0) g/dL Crossmatch 07/09/18 07/10/18 07/10/18 Range/Units 23:38 05:23 06:50 WBC 21.2 H (3.8-10.6) k/uL RBC 1.65 L (4.30-5.90) m/uL Hgb 5.5 L* D (13.0-17.5) gm/dL Hct 17.2 L* (39.0-53.0) % MCV 104.4 H (80.0-100.0) fL RDW 20.0 H (11.5-15.5) % Neutrophils # 20.5 H (1.3-7.7) k/uL Lymphocytes # 0.3 L (1.0-4.8) k/uL ABG pH (7.35-7.45) ABG pCO2 (35-45) mmHg ABG pO2 (83-108) mmHg ABG HCO3 (21-25) mmol/L ABG Total CO2 (19-24) mmol/L Sodium (137-145) mmol/L Potassium 3.4 L (3.5-5.1) mmol/L Chloride 110 H (98-107) mmol/L BUN 73 H (9-20) mg/dL Creatinine 4.33 H (0.66-1.25) mg/dL Glucose (74-99) mg/dL POC Glucose (mg/dL) 212 H (75-99) mg/dL Calcium 7.5 L (8.4-10.2) mg/dL Total Bilirubin (0.2-1.3) mg/dL AST (17-59) U/L ALT (21-72) U/L Alkaline Phosphatase (38-126) U/L Total Protein (6.3-8.2) g/dL Albumin (3.5-5.0) g/dL Crossmatch 07/10/18 07/10/18 Range/Units 09:38 11:41 WBC (3.8-10.6) k/uL RBC (4.30-5.90) m/uL Hgb (13.0-17.5) gm/dL Hct (39.0-53.0) % MCV (80.0-100.0) fL RDW (11.5-15.5) % Neutrophils # (1.3-7.7) k/uL Lymphocytes # (1.0-4.8) k/uL ABG pH (7.35-7.45) ABG pCO2 (35-45) mmHg ABG pO2 (83-108) mmHg ABG HCO3 (21-25) mmol/L ABG Total CO2 (19-24) mmol/L Sodium (137-145) mmol/L Potassium (3.5-5.1) mmol/L Chloride (98-107) mmol/L BUN (9-20) mg/dL Creatinine (0.66-1.25) mg/dL Glucose (74-99) mg/dL POC Glucose (mg/dL) 120 H (75-99) mg/dL Calcium (8.4-10.2) mg/dL Total Bilirubin (0.2-1.3) mg/dL AST (17-59) U/L ALT (21-72) U/L Alkaline Phosphatase (38-126) U/L Total Protein (6.3-8.2) g/dL Albumin (3.5-5.0) g/dL Crossmatch See Detail Assessment and Plan Plan: #1. Acute hypoxemic respiratory failure requiring intubation and mechanical ventilation for staph pneumonia, and the sputum culture showed staph was se nsitive to oxacillin/MSSA and the patient was being treated with IV Solu.. Patient was intubated on June 30, and successfully extubated on July 03, and the patient had bilateral lower lobe pulmonary infiltrate was improving on yesterday's chest x-ray. The patient got transferred to the ICU today because of diminished level of consciousness and worsening in the mentation and respiratory status. On route to the ICU, the patient underwent a CAT scan of the head that showed age-related atrophy without any acute abnormalities. On 07/10/2018, the patient remains on oxygen at 4 L per minute nasal cannula. Chest x-ray showing worsening in lower lobe consolidation and effusions. Suspect pneumonia with possibly development of a pleural effusion. Despite all this, the patient is not having any worsening shortness of breath is off the BiPAP and is currently on 40s about 2 by nasal cannula. Consider aspiration pneumonia. Consider hospital-acquired pneumonia. #2. Dysphagia related to vocal cord edema, and redness, ENT evaluation was obtained, please refer to their note. The patient has not had anything to eat for the past 8-10 days. I think is reasonable to start the patient on TPN knowing that he would not be able to take any form of enteral nutrition especially with his recent GI bleeding. #3. Hypernatremia, likely related to free water deficit, patient is nothing by mouth for dysphagia, the patient is still on IV Lasix and the patient is receiving free water in the form of D5 at the rate of 75 mL an hour. The sodium level improved and the patient's sodium level is normalized and I switched him to D5 half-normal saline today to have 75 mL an hour #4. Possible tract infection, cultures are negative #5. Blood loss anemia secondary to GI bleed. Hemoglobin dropped down to 5.5 and the patient is receiving 2 units of packed RBCs #6. History of acute kidney injury [place] improving only over the past few days. Creatinine on 07/06/2018 was at 5.4 is currently down to 4.3 and the patient is producing urine #7. Gastrointestinal bleeding, status post 2 units of PRBCs, on admission, and subsequently the patient had another large volume GI bleed this morning with significant drop in hemoglobin down to 5.5. GI is on the case. Suspect a lower GI bleed. #8. History of hypothyroidism #9. Full CODE STATUS #10. Thrombocytopenia, improving #11 abnormal LFTs, likely secondary to hypotension/shock liver Plan: The patient oxygen 4 L per minute nasal cannula. Aspiration precautions. Keep him nothing by mouth for now. Initiate TPN. Continue D5 half normal state rate of 75 mL an hour. Avoid diuretics. Monitor renal function. Monitor hemoglobin. Monitor oxygenation and keep him on 40s of oxygen nasal cannula. Repeat chest x-ray in the morning. IV antibiotics with Zosyn. Prognosis in general is poor baseline above-mentioned comorbidities. Nephrology on the case. We'll ask GI to reconsult on this patient regarding his ongoing lower GI bleed. Keep the patient IV Protonix. Recheck his coagulation profile. We'll continue to follow. LFTs be monitored. We'll continue to follow.
[2018-07-10] MEDS ORDERED: MAGNESIUM SULFATE-D5W PMX 1 GM in DEXTROSE/WATER 1 100ML.BAG IVPB ONE (13:00)
[2018-07-10] MEDS: POTASSIUM CHLORIDE 20 MEQ in WATER FOR INJECTION 1 100ML.BAG IVPB SCH ×2 (13:17→15:33)
[2018-07-10] MEDS: FAT EMULSION 20% 250 ML IV SCH (15:31)
[2018-07-10] MEDS: ERGOCALCIFEROL 50,000 UNIT CAP PO SCH (16:30)
[2018-07-10 18:15] LABS: Glucose,Whole Blood 204 mg/dL (75-99)
[2018-07-10] MEDS: DARBEPOETIN ALFA 60 MCG/0.3 ML SYRINGE SQ SCH (18:27)
--- NOTE | 2018-07-10 18:55 | PN ---
PROGRESS NOTE Patient is seen for followup for chronic kidney disease and acute kidney injury. Renal function has been fairly stable. Patient was transferred to the ICU with significant mental status changes, which seem to have improved today. However, hemoglobin was down to 5.5 grams and patient has had bloody bowel movement. He is hemodynamically stable and has not required any pressors. Patient continues to have fair amount of urine output. On examination this morning, blood pressure was 133/67, heart rate about 100 per minute. He is afebrile. EXAMINATION OF THE HEART: S1 and S2. EXAMINATION OF LUNGS: Bilateral breath sounds are heard. ABDOMEN: Soft, non-tender. Examination of lower extremities shows trace edema bilaterally. [employer]AR REPA[employer]ER exam is grossly intact. Labs show sodium 145, potassium 3.4, chloride 110, BUN 73, serum creatinine 4.3, hemoglobin 5.5 g/dL. ASSESSMENT: 1. Acute kidney injury, acute tubular necrosis, currently improving. Serum creatinine seems to have stabilized at about 4.3 from 6.3 at peak. 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 2. Hypernatremia, maintained on D5W, currently improved. 3. Hypokalemia. Will be replaced. It is associated with decreased oral intake. Patient will be started on TPN. 4. Dysphagia associated with vocal cord paralysis. Scheduled to have PEG tube placed. 5. Anemia with gastrointestinal bleed. 6. Volume overload, currently improved. Patient had been on Lasix. Currently diuretics are on hold. PLAN: Continue with gentle IV hydration. Repeat labs in a.m. Monitor volume status closely, as patient was recently quite volume-overloaded. MMODL / IJN: [id number] /
[2018-07-10 21:06] LABS: Anisocytosis Moderate; Basophils % (A) 0 %; Eosinophils % (A) 0 %; HCT 22.9 % (39.0-53.0); Lymphocytes # (A) 0.4 k/uL (1.0-4.8); Lymphocytes % (A) 2 %; MCH 33.6 pg (25.0-35.0); MCHC 34.9 g/dL (31.0-37.0); Macrocytosis Slight; Mean Platelet Volume 9.1; Monocytes # (A) 0.4 k/uL (0-1.0); Monocytes % (A) 2 %; Neutrophils # (A) 19.7 k/uL (1.3-7.7); Neutrophils % (A) 96 %; Platelet Count 177 k/uL (150-450); Poikilocytosis Slight; RBC 2.38 m/uL (4.30-5.90); RDW 21.5 % (11.5-15.5); WBC 20.6 k/uL (3.8-10.6)
[2018-07-10 21:08] LABS: MCV 96.2 fL (80.0-100.0)
[2018-07-10 21:15] LABS: Calcium 7.4 mg/dL (8.4-10.2); Potassium 3.6 mmol/L (3.5-5.1)
[2018-07-10 23:42] LABS: Glucose,Whole Blood 173 mg/dL (75-99)
[2018-07-11] MEDS: INSULIN ASPART (NovoLOG) 100 UNIT/ML VIAL SQ SCH ×4 (00:10→17:46)
[2018-07-11] MEDS: methylPREDNISolone SOD SUCCI 40 MG/ML 1 ML VIAL IV SCH ×3 (00:10→15:45)
--- NOTE | 2018-07-11 00:43 | PN ---
PROGRESS NOTE DATE OF SERVICE: 07/10/2018 PRESENTING COMPLAINT: Tired. INTERVAL HISTORY: This patient has been in the hospital for multiple problems including pneumonia, UTI and metabolic acidosis, acute kidney injury with a history of alcoholism. The patient was on the ventilator and extubated on July 03 and required BiPAP. The patient also has had dysphagia and hoarseness. The patient was transferred to the ICU yesterday and found to be rather lethargic. Patient overnight had a bloody bowel movement also required 2 units of blood for hemoglobin drop and this morning was started on TPN and lipids. More awake, actually communicating. Did require BiPAP overnight, currently on 4 L of oxygen. Telemetry shows sinus rhythm. REVIEW OF SYSTEMS: Done for constitutional, cardiovascular, GI, pulmonary and relevant findings as above. The patient is currently n.p.o. CURRENT MEDICATIONS: Reviewed that include DuoNeb, D5W, Synthroid, Solu-Medrol, IV Protonix, TPN, lipids, IV Zosyn. PHYSICAL EXAMINATION: VITAL SIGNS: Temperature 98.7, pulse 92, respiration 19, blood pressure 136/69, pulse ox 95 percent on 4 L. GENERAL APPEARANCE: Lying in bed, a bit more awake tired. EYES: Pupils equal. Conjunctivae normal. HEENT: External appearance of nose and ears normal. Oral cavity dry with some dry secretions. NECK: JVD unable to assess. Mass not palpable. RESPIRATORY: Effort increased. LUNGS: Decreased breath sounds. CARDIOVASCULAR: 1st and 2nd sounds normal. No edema. ABDOMEN: Soft, nontender. Liver and spleen not palpable. PSYCHIATRY: The patient is answering questions. Following commands. NEUROLOGICAL: Moving all 4 limbs. INVESTIGATIONS: White count 20.6, hemoglobin 8. It was 5.5 this morning. Potassium 3.6, BUN 76, creatinine 4.30. Chest x-ray film personally reviewed by me shows bibasilar infiltrate/effusion. ASSESSMENT: 1. Pneumonia, possibly aspiration. 2. Acute metabolic encephalopathy with some improvement. 3. Acute hypoxic respiratory failure status post ventilator assistance, currently on 4 L of oxygen. 4. Pneumonia from MSSA. 5. Dysphagia related to vocal cord edema. 6. Acute hypernatremia, likely due to free water deficit. 7. Metabolic acidosis. 8. Hypotensive shock from free water deficit and septic shock. 9. Acute kidney injury likely acute tubular necrosis, slow to respond. 10.Acute gastrointestinal bleed requiring 2 units of packed red blood cells. 11.Hypothyroidism. 12.CODE STATUS: FULL CODE. 13.Thrombocytopenia likely from sepsis. PLAN: The patient's rectal aspirin will be discontinued. Gastroenterology is being reconsulted. Continue with the current medication and treatment plan. Prognosis is guarded. MMODL / IJN: [id number] /
[2018-07-11] MEDS: IPRATROPIUM-ALBUTEROL 3 ML NEB INHALATION SCH ×6 (03:37→23:07)
[2018-07-11 04:28] LABS: Albumin 2.2 g/dL (3.5-5.0); Anisocytosis Moderate; Basophils % (A) 0 %; Calcium 7.6 mg/dL (8.4-10.2); Macrocytosis Slight; Magnesium 1.7 mg/dL (1.6-2.3); Monocytes % (A) 2 %; Phosphorus 3.2 mg/dL (2.5-4.5); Poikilocytosis Moderate; Potassium 3.6 mmol/L (3.5-5.1); Total Bilirubin 4.2 mg/dL (0.2-1.3); Total Protein 4.4 g/dL (6.3-8.2)
[2018-07-11 04:33] LABS: INR 1.3 (<1.2); Partial Thromboplastin Time 26.2 sec (22.0-30.0); Prothrombin Time 13.7 sec (9.0-12.0)
[2018-07-11 04:38] LABS: Eosinophils # (A) 0.1 k/uL (0-0.7); Eosinophils % (A) 0 %; HCT 23.5 % (39.0-53.0); HGB 7.9 gm/dL (13.0-17.5); Lymphocytes # (A) 0.3 k/uL (1.0-4.8); Lymphocytes % (A) 2 %; MCH 32.2 pg (25.0-35.0); MCHC 33.9 g/dL (31.0-37.0); MCV 95.1 fL (80.0-100.0); Mean Platelet Volume 9.2; Monocytes # (A) 0.4 k/uL (0-1.0); Neutrophils # (A) 21.3 k/uL (1.3-7.7); Neutrophils % (A) 96 %; Platelet Count 169 k/uL (150-450); RBC 2.47 m/uL (4.30-5.90); RDW 20.7 % (11.5-15.5); WBC 22.1 k/uL (3.8-10.6)
[2018-07-11 05:35] LABS: Glucose,Whole Blood 173 mg/dL (75-99)
--- NOTE | 2018-07-11 07:35 | XR ---
EXAMINATION TYPE: XR chest 1V portable DATE OF EXAM: 07/11/2018 COMPARISON: 07/10/2018 HISTORY: Shortness of breath TECHNIQUE: Single frontal view of the chest is obtained. FINDINGS: There is improved aeration of the left midlung. There are stable bilateral layering opacit ies and bibasilar consolidations, right greater than left. Patient's chin obscures the left lung apex . Left-sided internal jugular central venous catheter is unchanged. Pulmonary vascular congestion and interstitial edema have improved. IMPRESSION: Improved aeration of the left midlung and improved pulmonary vascular congestion. Stable bilateral layering pleural effusions and bibasilar consolidations that may represent atelectasis and /or pneumonia.
[2018-07-11] MEDS: PANTOPRAZOLE 40 MG/10 ML VIAL IVP SCH ×2 (08:23→21:00)
[2018-07-11] MEDS: LEVOTHYROXINE IVP 100 MCG/5 ML VIAL IV SCH (08:23)
[2018-07-11] MEDS: DEXTROSE 5%-0.45% NACL 1,000 ML IV SCH (08:24)
[2018-07-11] MEDS: CALCIUM GLUCONATE 1 GM in SODIUM CHLORIDE 0.9% 100 ML IVPB SCH ×2 (09:12→21:00)
[2018-07-11] MEDS: PIPERACILLIN-TAZOBACTAM 3.375 GM in SODIUM CHLORIDE 0.9% 100 ML IVPB SCH ×2 (09:12→21:00)
[2018-07-11] MEDS ORDERED: POTASSIUM CHLORIDE 10 MEQ in WATER FOR INJECTION 1 100ML.BAG IVPB SCH (09:30)
[2018-07-11] MEDS ORDERED: POTASSIUM CHLORIDE 20 MEQ in WATER FOR INJECTION 1 100ML.BAG IVPB ONE (10:00)
--- NOTE | 2018-07-11 10:38 | US ---
EXAMINATION TYPE: US gallbladder DATE OF EXAM: 07/11/2018 COMPARISON: CT abdomen and pelvis December 17, 2014 CLINICAL HISTORY: Elevated LFTs. Elevated liver enzymes EXAM MEASUREMENTS: Liver Length: 17.9 cm Gallbladder Wall: 0.3 cm CBD: 1.2 cm Right Kidney: 10.4 x 4.7 x 4.0 cm Pancreas: unable to visualize Liver: enlarged Gallbladder: sludge Evidence for sonographic Jensen's sign: no CBD: dilated with sludge, stent noted Right Kidney: no evidence of hydronephrosis Right pleural effusion Pancreas is poorly seen on images saved. Visualized liver is heterogeneously hyperechoic with trace s urrounding ascites. Evaluation for focal masses suboptimal due to the heterogeneity. Small right-side d pleural effusion is noted. There is mild to moderate central intrahepatic biliary dilatation and ex trahepatic biliary dilatation. Gallbladder shows multiple small stones and/or gallbladder sludge. No pericholecystic fluid or abnormal gallbladder wall thickening is seen. Gallbladder has distended nereida ins and appears prominent. IMPRESSION: Mild to moderate biliary dilatation. Multiple small gallstones and/or gallbladder sludge redemonstrated. Diffuse fatty infiltration of liver or underlying hepatocellular disease is felt pres ent. Trace perihepatic ascites. Small right pleural effusion. Advise further investigation with CT or MRCP. Patient has history of prior ERCP from 2014 and 2016, correlate clinically.
--- NOTE | 2018-07-11 11:46 | P.PN ---
Subjective Progress Note Date: 07/11/18 Principal diagnosis: Cytopenias secondary to Infection and ETOH Liver Disease Remains under the care of ICU, Platlets and Hemoglobin stable. LFTs are increased and creatinine, per primary ICU Team. He is stable on 4L of oxygen currently although per EMR he desaturated Bipap overnight. Repeat Chest xray and restart of antibiotics per pulm. Objective - Vital Signs Vital signs: Vital Signs Temp 97.6 F 07/11/18 08:00 Pulse 96 07/11/18 11:19 Resp 22 07/11/18 09:00 BP 145/81 07/11/18 09:00 Pulse Ox 92 L 07/11/18 08:30 Intake & Output 07/10/18 07/11/18 07/11/18 18:59 06:59 18:59 Intake Total 2629 1304 78 Output Total 985 735 125 Balance 1644 569 -47 Weight 66.1 kg 65.4 kg Intake: IV 659 1304 78 CVP 39 36 3 Calcium Gluconate 1 gm In 100 100 Sodium Chloride 0.9% 100 ml @ 100 mls/hr IVPB BID [facility] Rx#:[id number] Dextrose 5% in Water 1, 520 000 ml @ 40 mls/hr IV . Q24H [facility] Rx#:[id number] Dextrose 5%-0.45% NaCl 1, 540 45 000 ml @ 75 mls/hr IV . [id number] [facility] Rx#:[id number] Fat Emulsion 20% 250 ml @ 168 21 mls/hr IV Q24H [facility] Rx #:[id number] Mvi, Adult No.4 with Vit 360 30 K 10 ml Trace (Conc-1Ml/ Dose) 1 ml In Amino Acid 5%-D15w+Lytes*E* 1,000 ml @ 30 mls/hr IV .Q24H [facility] Rx#:[id number] Piperacillin-Tazobactam 3 100 .375 gm In Sodium Chloride 0.9% 100 ml @ 25 mls/hr IVPB Q12HR [facility] Rx #:[id number] Intake, IV Titration 730 Amount Fat Emulsion 20% 250 ml @ 250 21 mls/hr IV Q24H [facility] Rx #:[id number] Mvi, Adult No.4 with Vit 180 K 10 ml Trace (Conc-1Ml/ Dose) 1 ml In Amino Acid 5%-D15w+Lytes*E* 1,000 ml @ 30 mls/hr IV .Q24H [facility] Rx#:[id number] Piperacillin-Tazobactam 3 100 .375 gm In Sodium Chloride 0.9% 100 ml @ 25 mls/hr IVPB Q12HR [facility] Rx #:[id number] Potassium Chloride 20 meq 200 In Water For Injection 1 100ml.bag @ 50 mls/hr IVPB Q2H [facility] Rx#: [id number] Oral 0 Blood Product 1240 Rc As-1 Unit 310 [id number] Rc As-1 Unit 310 [id number] Output: Urine 985 735 125 Other: Voiding Method Indwelling Catheter Indwelling Catheter Indwelling Catheter # Voids 0 # Bowel Movements 1 1 ABP, PAP, CO, CI - Last Documented Arterial Blood Pressure 158/56 - Exam Gen: nad Head:NC, NT Oropharynx is clear without lesions. Neck: Supple without lymphadenopathy. Trachea midline. Heart: Regular rate and rhythm. Lungs: Diminished Abdomen: Soft, nontender, nondistended Extremities:no rash or irene. - Labs CBC & Chem 7: 07/11/18 15:42 07/11/18 04:00 Labs: Abnormal Lab Results - Last 24 Hours (Table) 07/10/18 07/10/18 07/10/18 Range/Units 09:38 11:41 18:03 WBC (3.8-10.6) k/uL RBC (4.30-5.90) m/uL Hgb (13.0-17.5) gm/dL Hct (39.0-53.0) % RDW (11.5-15.5) % Neutrophils # (1.3-7.7) k/uL Lymphocytes # (1.0-4.8) k/uL PT (9.0-12.0) sec INR (<1.2) Sodium (137-145) mmol/L Chloride (98-107) mmol/L BUN (9-20) mg/dL Creatinine (0.66-1.25) mg/dL Glucose (74-99) mg/dL POC Glucose (mg/dL) 120 H 204 H (75-99) mg/dL Calcium (8.4-10.2) mg/dL Total Bilirubin (0.2-1.3) mg/dL AST (17-59) U/L ALT (21-72) U/L Alkaline Phosphatase (38-126) U/L Total Protein (6.3-8.2) g/dL Albumin (3.5-5.0) g/dL Crossmatch See Detail 07/10/18 07/10/18 07/10/18 Range/Units 20:45 20:45 23:41 WBC 20.6 H (3.8-10.6) k/uL RBC 2.38 L (4.30-5.90) m/uL Hgb 8.0 L D (13.0-17.5) gm/dL Hct 22.9 L (39.0-53.0) % RDW 21.5 H (11.5-15.5) % Neutrophils # 19.7 H (1.3-7.7) k/uL Lymphocytes # 0.4 L (1.0-4.8) k/uL PT (9.0-12.0) sec INR (<1.2) Sodium (137-145) mmol/L Chloride 111 H (98-107) mmol/L BUN 76 H (9-20) mg/dL Creatinine 4.30 H (0.66-1.25) mg/dL Glucose 151 H (74-99) mg/dL POC Glucose (mg/dL) 173 H (75-99) mg/dL Calcium 7.4 L (8.4-10.2) mg/dL Total Bilirubin (0.2-1.3) mg/dL AST (17-59) U/L ALT (21-72) U/L Alkaline Phosphatase (38-126) U/L Total Protein (6.3-8.2) g/dL Albumin (3.5-5.0) g/dL Crossmatch 07/11/18 07/11/18 07/11/18 Range/Units 04:00 04:00 04:00 WBC 22.1 H (3.8-10.6) k/uL RBC 2.47 L (4.30-5.90) m/uL Hgb 7.9 L (13.0-17.5) gm/dL Hct 23.5 L (39.0-53.0) % RDW 20.7 H (11.5-15.5) % Neutrophils # 21.3 H (1.3-7.7) k/uL Lymphocytes # 0.3 L (1.0-4.8) k/uL PT 13.7 H (9.0-12.0) sec INR 1.3 H (<1.2) Sodium 146 H (137-145) mmol/L Chloride 111 H (98-107) mmol/L BUN 76 H (9-20) mg/dL Creatinine 4.37 H (0.66-1.25) mg/dL Glucose 167 H (74-99) mg/dL POC Glucose (mg/dL) (75-99) mg/dL Calcium 7.6 L (8.4-10.2) mg/dL Total Bilirubin 4.2 H (0.2-1.3) mg/dL AST 509 H (17-59) U/L ALT 104 H (21-72) U/L Alkaline Phosphatase 584 H (38-126) U/L Total Protein 4.4 L (6.3-8.2) g/dL Albumin 2.2 L (3.5-5.0) g/dL Crossmatch 07/11/18 Range/Units 05:32 WBC (3.8-10.6) k/uL RBC (4.30-5.90) m/uL Hgb (13.0-17.5) gm/dL Hct (39.0-53.0) % RDW (11.5-15.5) % Neutrophils # (1.3-7.7) k/uL Lymphocytes # (1.0-4.8) k/uL PT (9.0-12.0) sec INR (<1.2) Sodium (137-145) mmol/L Chloride (98-107) mmol/L BUN (9-20) mg/dL Creatinine (0.66-1.25) mg/dL Glucose (74-99) mg/dL POC Glucose (mg/dL) 173 H (75-99) mg/dL Calcium (8.4-10.2) mg/dL Total Bilirubin (0.2-1.3) mg/dL AST (17-59) U/L ALT (21-72) U/L Alkaline Phosphatase (38-126) U/L Total Protein (6.3-8.2) g/dL Albumin (3.5-5.0) g/dL Crossmatch Assessment and Plan Plan: Assessment and Recommendations: Normocytic Anemia: Secondary to multiple factors ?Gi Blood Loss gastric varices, underlying liver disease and possible renal disease, exacernated with acute infection - Per nursing recent bloody stool - Stable today 7.9, two units of blood - No intervention required today from hematological standpoint - PLan Per GI for EGD and Peg tube placement today MSSA Pneumonia Leukocytosis: Increasing - Possible increased infection - Pulm restarted antibiotics 07/10/18 - Neutrophilia with known diagnosis of MSSA Pneumonia - NPO recently; previous concern of aspiration Thrombocytopenia: Resolved - Stable, Platlet Count 167 - Secondary to history of ETOH Liver Disease - With newly increasing Liber enzymes and bilirubin monitor for worsening platelets and/or prolonged coags Acute Renal Failure: - No Change, creatinine remains 4.37 Increasing Liver Transiminitis/Increased Bili - Noted Ultrasound Gallbladder - Following for anticipation of worsening coagulation - Per ICU and Primary - INR 1.3 today, Would continue monitoring with risk of coagulapathy realated to worsening liver, underlying liver disease, and probable vitamin K deficiency with prolonged acute illness. Lucita PEREZP
--- NOTE | 2018-07-11 11:53 | P.PN ---
Subjective Progress Note Date: 07/11/18 Principal diagnosis: GI bleed. Anemia. History chronic pancreatitis. Oropharyngeal dysphagia. Alert. Afebrile. Passed to medium sized blood tinged bowel movement this morning per nursing. Present hemoglobin is 8 received 2 units of blood yesterday. Denies abdominal pain. No emesis. Minimal abdominal discomfort. Central line placed. Receiving TPN. Objective - Vital Signs Vital signs: Vital Signs Temp 97.6 F 07/11/18 08:00 Pulse 93 07/11/18 09:00 Resp 22 07/11/18 09:00 BP 145/81 07/11/18 09:00 Pulse Ox 92 L 07/11/18 08:30 Intake & Output 07/10/18 07/11/18 07/11/18 18:59 06:59 18:59 Intake Total 2629 1304 78 Output Total 985 735 125 Balance 1644 569 -47 Weight 66.1 kg 65.4 kg Intake: IV 659 1304 78 CVP 39 36 3 Calcium Gluconate 1 gm In 100 100 Sodium Chloride 0.9% 100 ml @ 100 mls/hr IVPB BID [facility] Rx#:[id number] Dextrose 5% in Water 1, 520 000 ml @ 40 mls/hr IV . Q24H [facility] Rx#:[id number] Dextrose 5%-0.45% NaCl 1, 540 45 000 ml @ 75 mls/hr IV . [id number] [facility] Rx#:[id number] Fat Emulsion 20% 250 ml @ 168 21 mls/hr IV Q24H [facility] Rx #:[id number] Mvi, Adult No.4 with Vit 360 30 K 10 ml Trace (Conc-1Ml/ Dose) 1 ml In Amino Acid 5%-D15w+Lytes*E* 1,000 ml @ 30 mls/hr IV .Q24H [facility] Rx#:[id number] Piperacillin-Tazobactam 3 100 .375 gm In Sodium Chloride 0.9% 100 ml @ 25 mls/hr IVPB Q12HR [facility] Rx #:[id number] Intake, IV Titration 730 Amount Fat Emulsion 20% 250 ml @ 250 21 mls/hr IV Q24H [facility] Rx #:[id number] Mvi, Adult No.4 with Vit 180 K 10 ml Trace (Conc-1Ml/ Dose) 1 ml In Amino Acid 5%-D15w+Lytes*E* 1,000 ml @ 30 mls/hr IV .Q24H [facility] Rx#:[id number] Piperacillin-Tazobactam 3 100 .375 gm In Sodium Chloride 0.9% 100 ml @ 25 mls/hr IVPB Q12HR [facility] Rx #:[id number] Potassium Chloride 20 meq 200 In Water For Injection 1 100ml.bag @ 50 mls/hr IVPB Q2H [facility] Rx#: [id number] Oral 0 Blood Product 1240 Rc As-1 Unit 310 [id number] Rc As-1 Unit 310 [id number] Output: Urine 985 735 125 Other: Voiding Method Indwelling Catheter Indwelling Catheter # Voids 0 # Bowel Movements 1 1 ABP, PAP, CO, CI - Last Documented Arterial Blood Pressure 158/56 - Exam General appearance: The patient is alert, oriented, in no acute distress. HET: Head is normocephalic and atraumatic. Pupils are equal and reactive. Oropharynx is clear without lesions. Neck: Supple without lymphadenopathy. Trachea midline. Heart: S1 S2. Regular rate and rhythm. Lungs: No crackles or wheezes are heard. Abdomen: Soft, nontender, nondistended with bowel sounds. No peritoneal signs. No palpable organomegaly or masses. Extremities: Normal skin color and turgor. No cyanosis, rash, ulceration, clubbing, or edema. Radial and pedal pulses are 2/4 bilaterally. Neurological: No focal deficits. Strength and sensation are grossly intact. - Labs CBC & Chem 7: 07/11/18 04:00 07/11/18 04:00 Labs: Abnormal Lab Results - Last 24 Hours (Table) 07/10/18 07/10/18 07/10/18 Range/Units 09:38 11:41 18:03 WBC (3.8-10.6) k/uL RBC (4.30-5.90) m/uL Hgb (13.0-17.5) gm/dL Hct (39.0-53.0) % RDW (11.5-15.5) % Neutrophils # (1.3-7.7) k/uL Lymphocytes # (1.0-4.8) k/uL PT (9.0-12.0) sec INR (<1.2) Sodium (137-145) mmol/L Chloride (98-107) mmol/L BUN (9-20) mg/dL Creatinine (0.66-1.25) mg/dL Glucose (74-99) mg/dL POC Glucose (mg/dL) 120 H 204 H (75-99) mg/dL Calcium (8.4-10.2) mg/dL Total Bilirubin (0.2-1.3) mg/dL AST (17-59) U/L ALT (21-72) U/L Alkaline Phosphatase (38-126) U/L Total Protein (6.3-8.2) g/dL Albumin (3.5-5.0) g/dL Crossmatch See Detail 07/10/18 07/10/18 07/10/18 Range/Units 20:45 20:45 23:41 WBC 20.6 H (3.8-10.6) k/uL RBC 2.38 L (4.30-5.90) m/uL Hgb 8.0 L D (13.0-17.5) gm/dL Hct 22.9 L (39.0-53.0) % RDW 21.5 H (11.5-15.5) % Neutrophils # 19.7 H (1.3-7.7) k/uL Lymphocytes # 0.4 L (1.0-4.8) k/uL PT (9.0-12.0) sec INR (<1.2) Sodium (137-145) mmol/L Chloride 111 H (98-107) mmol/L BUN 76 H (9-20) mg/dL Creatinine 4.30 H (0.66-1.25) mg/dL Glucose 151 H (74-99) mg/dL POC Glucose (mg/dL) 173 H (75-99) mg/dL Calcium 7.4 L (8.4-10.2) mg/dL Total Bilirubin (0.2-1.3) mg/dL AST (17-59) U/L ALT (21-72) U/L Alkaline Phosphatase (38-126) U/L Total Protein (6.3-8.2) g/dL Albumin (3.5-5.0) g/dL Crossmatch 07/11/18 07/11/18 07/11/18 Range/Units 04:00 04:00 04:00 WBC 22.1 H (3.8-10.6) k/uL RBC 2.47 L (4.30-5.90) m/uL Hgb 7.9 L (13.0-17.5) gm/dL Hct 23.5 L (39.0-53.0) % RDW 20.7 H (11.5-15.5) % Neutrophils # 21.3 H (1.3-7.7) k/uL Lymphocytes # 0.3 L (1.0-4.8) k/uL PT 13.7 H (9.0-12.0) sec INR 1.3 H (<1.2) Sodium 146 H (137-145) mmol/L Chloride 111 H (98-107) mmol/L BUN 76 H (9-20) mg/dL Creatinine 4.37 H (0.66-1.25) mg/dL Glucose 167 H (74-99) mg/dL POC Glucose (mg/dL) (75-99) mg/dL Calcium 7.6 L (8.4-10.2) mg/dL Total Bilirubin 4.2 H (0.2-1.3) mg/dL AST 509 H (17-59) U/L ALT 104 H (21-72) U/L Alkaline Phosphatase 584 H (38-126) U/L Total Protein 4.4 L (6.3-8.2) g/dL Albumin 2.2 L (3.5-5.0) g/dL Crossmatch 07/11/18 Range/Units 05:32 WBC (3.8-10.6) k/uL RBC (4.30-5.90) m/uL Hgb (13.0-17.5) gm/dL Hct (39.0-53.0) % RDW (11.5-15.5) % Neutrophils # (1.3-7.7) k/uL Lymphocytes # (1.0-4.8) k/uL PT (9.0-12.0) sec INR (<1.2) Sodium (137-145) mmol/L Chloride (98-107) mmol/L BUN (9-20) mg/dL Creatinine (0.66-1.25) mg/dL Glucose (74-99) mg/dL POC Glucose (mg/dL) 173 H (75-99) mg/dL Calcium (8.4-10.2) mg/dL Total Bilirubin (0.2-1.3) mg/dL AST (17-59) U/L ALT (21-72) U/L Alkaline Phosphatase (38-126) U/L Total Protein (6.3-8.2) g/dL Albumin (3.5-5.0) g/dL Crossmatch Assessment and Plan (1) GIB (gastrointestinal bleeding) Current Visit: Yes Status: Acute Code(s): K92.2 - GASTROINTESTINAL HEMORRHAGE, UNSPECIFIED SNOMED Code(s): 66510879 (2) Macrocytic anemia Narrative/Plan: 68-year-old male with a history of underlying daily EtOH abuse suspect underlying alcohol liver disease presents with acute kidney injury symptomatic anemia suspect component of acute blood loss dyspnea without overt bleeding macrocytic anemia underlying thrombocytopenia with positive FOBT. Underlying peptic ulcer disease portal gastropathy esophageal gastric varices in the setting of long-standing EtOH abuse bleeding AVM cannot be excluded. Current Visit: Yes Status: Acute Priority: Medium Code(s): D53.9 - NUTRITIONAL ANEMIA, UNSPECIFIED SNOMED Code(s): 21078417 (3) MUMTAZ (acute kidney injury) Current Visit: Yes Status: Acute Code(s): N17.9 - ACUTE KIDNEY FAILURE, UNSPECIFIED SNOMED Code(s): 96810763 (4) Acute blood loss anemia Current Visit: Yes Status: Acute Code(s): D62 - ACUTE POSTHEMORRHAGIC ANEMIA SNOMED Code(s): 266549598 (5) Oropharyngeal dysphagia Current Visit: Yes Status: Acute Code(s): R13.12 - DYSPHAGIA, OROPHARYNGEAL PHASE SNOMED Code(s): 70743628 (6) Pancreatitis Current Visit: No Status: Acute Code(s): K85.9 - ACUTE PANCREATITIS, UNSPECIFIED * DO NOT USE * SNOMED Code(s): 82769569 Plan: 1. Nothing by mouth. CBC at noon. Protonix 40 mg twice daily. EGD possible PEG insertion today. Will follow closely with you. The business continuity management director has discussed the risks, benefits and alternative therapies for the above-mentioned procedure and for both sedation/analgesia as well as necessary blood product administration, if indicated, as they pertain to this patient. The patient has indicated understanding and acceptance of the risks and procedures discussed. Assessment and plan a care discussed with Dr. Bean.
[2018-07-11 11:55] LABS: Glucose,Whole Blood 207 mg/dL (75-99)
[2018-07-11] MEDS ORDERED: 1: MVI, ADULT NO.4 WITH VIT K 10 ML, TRACE (CONC-1ML/DOSE) 1 ML in AMINO ACID 5%-D15W+LY IV SCH ×3 (12:00)
--- NOTE | 2018-07-11 12:01 | CT ---
EXAMINATION TYPE: CT chest wo con DATE OF EXAM: 07/11/2018 COMPARISON: X-ray earlier today and older x-rays. HISTORY: Rt lung consolidation, abnormal x-ray. CT DLP: 291.4 mGycm. Automated Exposure Control for Dose Reduction was Utilized. TECHNIQUE: CT scan of the thorax is performed without IV contrast. FINDINGS: LUNGS there are persistent moderate bilateral pleural effusions extending to lung apices level with a ssociated compressive atelectasis in the bases. There is some atelectasis and/or consolidation abutti ng the bilateral major fissures, left greater than right. Background of mild to moderate emphysematou s change in the upper lungs is seen. No pneumothorax is evident. Tracheobronchial tree is patent. MEDIASTINUM: Lack of IV contrast is noted to limit evaluation for mediastinal and especially hilar ad enopathy. There are no definitive greater than 1 cm hilar or mediastinal lymph nodes. No cardiomega ly is seen. Trace pericardial effusion is noted anteriorly inferiorly. Coronary artery calcification and/or stents are present. Prominence of the intra-arterial fat consistent with lipomatous hypertroph y of the intra-arterial septum is noted. OTHER: Redemonstration of left internal jugular central venous catheter terminating in SVC. Bilateral gynecomastia is noted. There is atrophy and calcification of the pancreas. There is internal biliary stent noted. Trace perihepatic ascites is seen. Trace scattered abdominal ascites is noted. Underlyi ng scoliotic curvature positioning is seen. IMPRESSION: There is background mild to moderate emphysematous change with symmetric moderate size bi lateral pleural effusions and associated compressive atelectasis, areas of acute infiltrate felt less likely but not entirely excluded. Correlate for fluid overload state. Heart size is felt normal.
[2018-07-11] MEDS: MAGNESIUM SULFATE-D5W PMX 1 GM in DEXTROSE/WATER 1 100ML.BAG IVPB SCH ×2 (13:13→15:45)
[2018-07-11] MEDS: FAT EMULSION 20% 250 ML IV SCH (13:13)
[2018-07-11] MEDS ORDERED: PROPOFOL 10 MG/ML 20 ML VIAL IV ONE (13:58)
[2018-07-11] MEDS ORDERED: LIDOCAINE 1% INJ 10MG/ML (20 ML MDV) ONE (13:58)
[2018-07-11] MEDS ORDERED: KETAMINE 10 MG/ML 20 ML VIAL ONE (13:58)
[2018-07-11] MEDS ORDERED: MIDAZOLAM 2 MG/2 ML VIAL ONE (13:58)
[2018-07-11] MEDS ORDERED: fentaNYL (PF) 50 MCG/ML 2 ML AMP ONE (13:58)
--- NOTE | 2018-07-11 14:04 | P.PN ---
Subjective Progress Note Date: 07/11/18 This is a 68-year-old male patient who was in the intensive care unit for septic shock related to a staphylococcal pneumonia, urinary tract infection, metabolic acidosis, acute kidney injury. The patient has also previous history of alcoholism, previous history of pancreatitis, previous history of ERCP with insertion of a bile duct stent. The patient is known to us. The patient got treated in the intensive care unit for acute hypoxic respiratory failure and the patient required intubation mechanical ventilation for a staphylococcal pneumonia as cultured in his sputum and the staph was sensitive to assess 11, MSSA. The patient was intubated on 06/30/2018 and the patient was successfully extubated on 07/03/2018. The patient subsequently required BiPAP for breast are supported the patient developed some worsening in CHF/bilateral pleural effusion and edema. The patient was also placed on Lasix. Noted post exhibition the patient also developed dysphagia and some vocal cords edema resulting into restaurant assess and hoarseness and difficulty in speech. ENT evaluation was done. The ENT evaluation done by Dr. Street showed bilateral vocal cords hemorrhage and laryngitis. Vocal cord movement was not good and was anticipated in the vocal cord function was gradually improve and the patient was given Mycelex tortious. Regarding his dysphagia, the patient was noted to have limi torri pharyngeal movement, there was a concern towards possibility of a bulbar palsy and for that reason it was recommended for this patient to have an MRI. For now he is unable to swallow and the patient is still nothing by mouth. GI consultation has been obtained due to difficulty in swallowing and the patient is being considered for a PEG tube insertion. As far as his metabolic acidosis, this improved and the patient's hypotension also improved and resolved. The acute kidney injury was improving and the creatinine was on the decline. He did develop hypernatremia related to free water deficit and the patient was receiving IV fluids. This morning, the patient was requested to be transferred back to the intensive care unit as the patient was found to be more lethargic and obtunded. CAT scan of the brain was done on route to the ICU and it showed age-related atrophy and chronic small vessel ischemia without any acute intracranial process. The white cell count is slightly higher at 21.0. The patient is afebrile for now. Platelet count started to 62 and hemoglobin stable at 9.3.The chest x-ray from yesterday showed bilateral lower lobe pneumonia and apparently there was some slight improvement in the bilateral pulmonary infiltrates compared to previous films. I noted a blood gases from yesterday showed a pH of 7.29 with a pCO2 of 51 and pO2 of 115. The echocardiogram showed an ejection fraction of 50-55%, moderate MR, moderate pulmonary hypertension with a PA pressure of 44, rest of the cardiac structures were all within normal limits. Currently the patient is currently on IV Kefzol 2 g on a daily basis. The patient is receiving an S4 chronic anemia. He is also on Lasix 60 mg IV every 12 hours and don't of the right treatments around the clock and IV Solu Medrol 40 mg every 6 hours. He is also on D5 water at the rate of 75 mL an hour. On today's evaluation of 07/10/2018, the patient is much more awake and alert compared to yesterday. The patient was given IV fluids throughout the night and the patient responded nicely of the sodium level dropped down to 145. The rest of the electrolytes are essentially within normal limits with a potassium level of 3.4 with a chloride level of 110. Serum bicarbonate 29. The creatinine is still abnormal with a creatinine level of 4.3 with a BUN of 73. Overnight, the patient was given a dose of Lasix despite him being intravascular depleted and having a very low CVP. This morning the CVP still low. I started on IV fluids again and currently is on D5 half-normal saline at the rate of 75 mL's an hour. Urine output is in order of 30-40 mL's an hour. He is on oxygen at 4 L per minute nasal cannula. He declined using the BiPAP overnight. His chest x-ray from today increasing perihilar and basilar infiltrate as well as pleural effusion. This could be CHF although an aspiration pneumonia cannot be com pletely excluded. Note that the patient has been nothing by mouth for the past 1 week at least due to difficulty in swallowing. This evolved following his intubation mechanical ventilation. Note that he has been diagnosed having an MSSA pneumonia. I started him back on antibiotics and currently is on IV Zosyn and he is afebrile. White cell count is elevated at 21.2. Hemoglobin dropped down to 5.5 this morning and this was attributed to a large bloody bowel movement that occurred earlier this morning. I was told that the patient had a bright red blood per rectum and large amounts and this obviously contributed to his massive drop in hemoglobin which is down to 5.5. His platelet count is at 187. Coagulation profile from admission was within normal limits. on 07/11/2018, the patient is awake and alert and following commands and answering questions. The patient remains nothing by mouth. Unable to swallow. He was started on TPN for nutritional support. He did have another bout of bloody bowel movement that was medium in size and blood-tinged and for that reason the patient is being considered for school today where the patient is going to have EGD and colonoscopy and possibly a PEG tube insertion. The patient's hemoglobin today is at 8.0. Note that he had already received a total of 2 units of packed RBCs. No nausea. No vomiting. No abdominal pain. No shortness of breath. He is on 3 L of oxygen by nasal cannula. His chest x-ray showing bilateral lower lobe consolidation, possibly related to underlying pneumonia. I'm going to order a CAT scan of the chest without contrast to characterize abnormalities. Meanwhile, the patient is producing urine output. Renal function is still impaired although slowly improving.the patient's serum creatinine is at 4.3 and the sodium level is at 146. White cell count is at 22.1. No focal neurological deficits. He is moving all 4 extremities without any limitation. Objective - Vital Signs Vital signs: Vital Signs Temp 97.6 F 07/11/18 08:00 Pulse 90 07/11/18 13:00 Resp 21 07/11/18 13:00 BP 160/79 07/11/18 13:00 Pulse Ox 93 L 07/11/18 13:00 Intake & Output 07/10/18 07/11/18 07/11/18 18:59 06:59 18:59 Intake Total 2629 1304 668 Output Total 985 735 375 Balance 1644 569 293 Weight 66.1 kg 65.4 kg Intake: IV 659 1304 668 CVP 39 36 18 Calcium Gluconate 1 gm In 100 100 100 Sodium Chloride 0.9% 100 ml @ 100 mls/hr IVPB BID [facility] Rx#:[id number] Dextrose 5% in Water 1, 520 000 ml @ 40 mls/hr IV . Q24H [facility] Rx#:[id number] Dextrose 5%-0.45% NaCl 1, 540 270 000 ml @ 75 mls/hr IV . [id number] [facility] Rx#:[id number] Fat Emulsion 20% 250 ml @ 168 21 mls/hr IV Q24H [facility] Rx #:[id number] Mvi, Adult No.4 with Vit 360 180 K 10 ml Trace (Conc-1Ml/ Dose) 1 ml In Amino Acid 5%-D15w+Lytes*E* 1,000 ml @ 30 mls/hr IV .Q24H [facility] Rx#:[id number] Piperacillin-Tazobactam 3 100 100 .375 gm In Sodium Chloride 0.9% 100 ml @ 25 mls/hr IVPB Q12HR [facility] Rx #:[id number] Intake, IV Titration 730 Amount Fat Emulsion 20% 250 ml @ 250 21 mls/hr IV Q24H [facility] Rx #:[id number] Mvi, Adult No.4 with Vit 180 K 10 ml Trace (Conc-1Ml/ Dose) 1 ml In Amino Acid 5%-D15w+Lytes*E* 1,000 ml @ 30 mls/hr IV .Q24H [facility] Rx#:[id number] Piperacillin-Tazobactam 3 100 .375 gm In Sodium Chloride 0.9% 100 ml @ 25 mls/hr IVPB Q12HR [facility] Rx #:[id number] Potassium Chloride 20 meq 200 In Water For Injection 1 100ml.bag @ 50 mls/hr IVPB Q2H [facility] Rx#: [id number] Oral 0 Blood Product 1240 Rc As-1 Unit 310 [id number] Rc As-1 Unit 310 [id number] Output: Urine 985 735 375 Other: Voiding Method Indwelling Catheter Indwelling Catheter Indwelling Catheter # Voids 0 # Bowel Movements 1 1 1 ABP, PAP, CO, CI - Last Documented Arterial Blood Pressure 158/56 - Exam GENERAL EXAM: Lethargic, obtunded 68-year-old white male on oxygen at 4 L per nasal cannula HEAD: Normocephalic/atraumatic. EYES: Normal reaction of pupils, equal size. Conjunctiva pink, sclera white. NOSE: Clear with pink turbinates. THROAT: No erythema or exudates. NECK: No masses, no JVD, no thyroid enlargement, no adenopathy. CHEST: No chest wall deformity. Symmetrical expansion. LUNGS: Breath sounds bilaterally , Patient is quite diminished in lung bases bilaterally along with some dullness to percussion. CVS: Regular rate and rhythm, normal S1 and S2, no gallops, no murmurs, no rubs ABDOMEN: Soft, nontender. No hepatosplenomegaly, normal bowel sounds, no guarding or rigidity. EXTREMITIES: No clubbing, no edema, no cyanosis, 2+ pulses and upper and lower extremities. MUSCULOSKELETAL: Muscle strength and tone normal. SPINE: No scoliosis or deformity SKIN: No rashes CENTRAL NERVOUS SYSTEM: No focal deficits, tone is normal in all 4 extremities. Diminished level of consciousness, withdraws to painful stimu lation, occasional response to verbal stimulation. PSYCHIATRIC: Able to obtain a psychiatric evaluation due to the above-mentioned condition. - Labs CBC & Chem 7: 07/11/18 04:00 07/11/18 04:00 Labs: Abnormal Lab Results - Last 24 Hours (Table) 07/10/18 07/10/18 07/10/18 Range/Units 09:38 18:03 20:45 WBC 20.6 H (3.8-10.6) k/uL RBC 2.38 L (4.30-5.90) m/uL Hgb 8.0 L D (13.0-17.5) gm/dL Hct 22.9 L (39.0-53.0) % RDW 21.5 H (11.5-15.5) % Neutrophils # 19.7 H (1.3-7.7) k/uL Lymphocytes # 0.4 L (1.0-4.8) k/uL PT (9.0-12.0) sec INR (<1.2) Sodium (137-145) mmol/L Chloride (98-107) mmol/L BUN (9-20) mg/dL Creatinine (0.66-1.25) mg/dL Glucose (74-99) mg/dL POC Glucose (mg/dL) 204 H (75-99) mg/dL Calcium (8.4-10.2) mg/dL Total Bilirubin (0.2-1.3) mg/dL AST (17-59) U/L ALT (21-72) U/L Alkaline Phosphatase (38-126) U/L Total Protein (6.3-8.2) g/dL Albumin (3.5-5.0) g/dL Crossmatch See Detail 07/10/18 07/10/18 07/11/18 Range/Units 20:45 23:41 04:00 WBC 22.1 H (3.8-10.6) k/uL RBC 2.47 L (4.30-5.90) m/uL Hgb 7.9 L (13.0-17.5) gm/dL Hct 23.5 L (39.0-53.0) % RDW 20.7 H (11.5-15.5) % Neutrophils # 21.3 H (1.3-7.7) k/uL Lymphocytes # 0.3 L (1.0-4.8) k/uL PT (9.0-12.0) sec INR (<1.2) Sodium (137-145) mmol/L Chloride 111 H (98-107) mmol/L BUN 76 H (9-20) mg/dL Creatinine 4.30 H (0.66-1.25) mg/dL Glucose 151 H (74-99) mg/dL POC Glucose (mg/dL) 173 H (75-99) mg/dL Calcium 7.4 L (8.4-10.2) mg/dL Total Bilirubin (0.2-1.3) mg/dL AST (17-59) U/L ALT (21-72) U/L Alkaline Phosphatase (38-126) U/L Total Protein (6.3-8.2) g/dL Albumin (3.5-5.0) g/dL Crossmatch 07/11/18 07/11/18 07/11/18 Range/Units 04:00 04:00 05:32 WBC (3.8-10.6) k/uL RBC (4.30-5.90) m/uL Hgb (13.0-17.5) gm/dL Hct (39.0-53.0) % RDW (11.5-15.5) % Neutrophils # (1.3-7.7) k/uL Lymphocytes # (1.0-4.8) k/uL PT 13.7 H (9.0-12.0) sec INR 1.3 H (<1.2) Sodium 146 H (137-145) mmol/L Chloride 111 H (98-107) mmol/L BUN 76 H (9-20) mg/dL Creatinine 4.37 H (0.66-1.25) mg/dL Glucose 167 H (74-99) mg/dL POC Glucose (mg/dL) 173 H (75-99) mg/dL Calcium 7.6 L (8.4-10.2) mg/dL Total Bilirubin 4.2 H (0.2-1.3) mg/dL AST 509 H (17-59) U/L ALT 104 H (21-72) U/L Alkaline Phosphatase 584 H (38-126) U/L Total Protein 4.4 L (6.3-8.2) g/dL Albumin 2.2 L (3.5-5.0) g/dL Crossmatch 07/11/18 Range/Units 11:53 WBC (3.8-10.6) k/uL RBC (4.30-5.90) m/uL Hgb (13.0-17.5) gm/dL Hct (39.0-53.0) % RDW (11.5-15.5) % Neutrophils # (1.3-7.7) k/uL Lymphocytes # (1.0-4.8) k/uL PT (9.0-12.0) sec INR (<1.2) Sodium (137-145) mmol/L Chloride (98-107) mmol/L BUN (9-20) mg/dL Creatinine (0.66-1.25) mg/dL Glucose (74-99) mg/dL POC Glucose (mg/dL) 207 H (75-99) mg/dL Calcium (8.4-10.2) mg/dL Total Bilirubin (0.2-1.3) mg/dL AST (17-59) U/L ALT (21-72) U/L Alkaline Phosphatase (38-126) U/L Total Protein (6.3-8.2) g/dL Albumin (3.5-5.0) g/dL Crossmatch Assessment and Plan Plan: #1. Acute hypoxemic respiratory failure requiring intubation and mechanical ventilation for staph pneumonia, and the sputum culture showed staph was sensitive to oxacillin/MSSA and the patient was being treated with IV Solu.. Patient was intubated on June 30, and successfully extubated on July 03, and the patient had bilateral lower lobe pulmonary infiltrate was improving on yesterday's chest x-ray. The patient got transferred to the ICU today because of diminished level of consciousness and worsening in the mentation and res piratory status. On route to the ICU, the patient underwent a CAT scan of the head that showed age-related atrophy without any acute abnormalities. On 07/10/2018, the patient remains on oxygen at 4 L per minute nasal cannula. Chest x-ray showing worsening in lower lobe consolidation and effusions. Suspect pneumonia with possibly development of a pleural effusion. Despite all this, the patient is not having any worsening shortness of breath is off the BiPAP and is currently on 40s about 2 by nasal cannula. Consider aspiration pneumonia. Consider hospital-acquired pneumonia. on 07/11/2018, the patient is going to have a CAT scan of the chest knowing that the patient has persistent opacification of the lung bases and I suspect pleural effusion with possibility of an underlying aspiration pneumonia. For that reason, a CAT scan of the chest without contrast will be obtained. #2. Dysphagia related to vocal cord edema, and redness, ENT evaluation was obtained, please refer to their note. The patient has not had anything to eat for the past 8-10 days. the patient is currently on TPN for nutritional support. #3. Hypernatremia, improving as the patient was being resuscitated with IV fluids and currently he is on D5 half-normal saline. #4. Possible tract infection, cultures are negative #5. Blood loss anemia secondary to GI bleed. Hemoglobin dropped down to 5.5 and the patient is receiving 2 units of packed RBCsMR current hemoglobin is at 7.9. There is concern that the patient is on of bleeding and the patient will need to be further investigated with EGD and colonoscopy. #6. History of acute kidney injury [place] improving only over the past few days. Creatinine on 07/06/2018 was at 5.4 is currently down to 4.3 and the patient is producing urine #7. Gastrointestinal bleeding, status post 2 units of PRBCs, on admission, and subsequently the patient had another large volume GI bleed this morning with significant drop in hemoglobin down to 5.5. GI is on the case. Suspect a lower GI bleed. #8. History of hypothyroidism #9. Full CODE STATUS #10. Thrombocytopenia, improving #11 abnormal LFTs, likely secondary to hypotension/shock liver Plan: The patient oxygen3 L per minute nasal cannula. we'll proceed with a CAT scan of the chest without contrast. We'll proceed with thoracentesis if there is any significant pleural effusion. Ultimately the patient will need an EGD and colonoscopy and possibly a PEG tube insertion. Meanwhile continue TPN for nutritional support. Continue IV fluids with D5 half-normal saline at the rate of 75 mL an hour. Monitor hemoglobin.monitor the renal function. Creatinine today is at 4.3. He clinically looks more awake and alert. We'll monitor the liver function tests. We'll continue to follow make further recommendations based on his progress.
[2018-07-11] MEDS ORDERED: IV FLUID CONTINUATION 1,000 ML IV ONE (14:15)
--- NOTE | 2018-07-11 14:44 | P.PCN ---
Date of Procedure: 07/11/18 Description of Procedure: Brief history: 68-year-old gentleman admitted with shortness of breath 2-3 days with exertion. Past medical history of EtOH abuse drinks liquor beer on a daily basis, distal common bile duct stricture 2015 pancreatitis with previous biliary stenting, thrombocytopenia, macrocytic anemia. Initially the gastroenterology team was called to see the patient due to concern over coffee-ground emesis from the NG tube which was placed for enteral nutrition and pills when the patient was intubated. The patient had no further signs or symptoms of GI bleeding and hemoglobin remained stable. However, after extubation the patient has been unable to swallow with severe oropharyngeal dysphagia noted on swallow evaluation with modified barium swallow. Yesterday there was concerned over further dark-colored stool. Stable at 7.9 from yesterday. Procedure performed: EGD with PEG tube placement and biliary stent removal Preoperative diagnosis: Oropharyngeal dysphagia, melena IV sedation by anesthesia Estimated blood loss: Minimal. Procedure: After informed consent was obtained with the patient as well as the family the patient was brought into the endoscopy unit. IV conscious sedation was administered by anesthesia under continuous monitoring. The Olympus GF 190 video endoscope was inserted into the mouth and esophagus intubated without any difficulty and was gradually advanced to the stomach and duodenum. There was diffuse inflammation of the distal esophagus consistent with LA grade B esophagitis. The bulb and second part of the duodenum was visualized which appeared normal, with 2 plastic biliary stents noted protruding from the ampulla which had previously been placed. One biliary stent was snared and removed through the stomach and esophagus. The scope was then inserted back into the mouth and esophagus was intubated without any difficulty and gradually advanced back into the stomach. Adequate transillumination was achieved onto the anterior abdominal wall. At the site of adequate transillumination and maximal finger indentation, on the anterior abdominal wall, this area was sterilely prepped and draped. One percent Lidocaine was infiltrated into the skin and a small incision was made. Trocar and cannula was passed through the incision i nto the stomach cavity. The trocar was removed. The insertion wire was passed through the cannula into the stomach. Insertion wire was snared and then the insertion wire, snare and endoscope were withdrawn from the mouth. The insertion wire was then attached to a [employer] PEG tube. The insertion wire was then pulled with the PEG tube through the incision site. PEG tube was pulled until the internal bolster was sitting snugly against the gastric mucosa which was confirmed with repeat EGD. On repeat EGD the esophagus was intubated without any difficulty and was advanced into the stomach. The internal bumper appeared to be in secure position. The visualized portions of the antrum body cardia and fundus of the stomach appeared normal. The esophagus was carefully examined as the scope was gradually being withdrawn which appeared normal. At this time external bumper was placed on the PEG tube closer to the anterior abdominal wall at 2 cm imtiaz. The patient tolerated the procedure well. Impression: Successful [employer] PEG tube placement as described above. One plastic biliary stent removed (second biliary stent was not removed due to moderate to severe esophagitis and concerned over further irritation of the area and bleeding). Recommendations: Findings of this examination were discussed with the patient's family. The patient will be started on tube feeds tomorrow. Post-PEG tube orders were written. Okay for water flushes and pills through the PEG tube tonight at 6 PM. Local PEG tube site care.
[2018-07-11 16:26] LABS: Anisocytosis Moderate; Basophils % (A) 0 %; Eosinophils # (A) 0.1 k/uL (0-0.7); Eosinophils % (A) 0 %; HCT 24.9 % (39.0-53.0); Hypochromasia Slight; Lymphocytes # (A) 0.4 k/uL (1.0-4.8); Lymphocytes % (A) 2 %; MCH 32.2 pg (25.0-35.0); MCHC 32.3 g/dL (31.0-37.0); MCV 99.5 fL (80.0-100.0); Macrocytosis Moderate; Mean Platelet Volume 8.9; Monocytes # (A) 0.5 k/uL (0-1.0); Monocytes % (A) 2 %; Neutrophils # (A) 19.7 k/uL (1.3-7.7); Neutrophils % (A) 95 %; Platelet Count 170 k/uL (150-450); Poikilocytosis Slight; RDW 20.1 % (11.5-15.5); WBC 20.7 k/uL (3.8-10.6)
[2018-07-11 17:00] LABS: Poikilocytosis (M) Present; Polychromasia Present
[2018-07-11 17:38] LABS: Glucose,Whole Blood 196 mg/dL (75-99)
[2018-07-11] MEDS: 1: MVI, ADULT NO.4 WITH VIT K 10 ML, TRACE (CONC-1ML/DOSE) 1 ML in AMINO ACID 5%-D15W+LY IV SCH ×3 (17:41)
--- NOTE | 2018-07-11 21:57 | PN ---
PROGRESS NOTE Patient is seen for followup for chronic kidney disease and acute kidney injury. His renal function has been fairly stable. Patient has had good urine output. He did have another maroon-colored bowel movement last night. Hemoglobin is stable at about 8.0 g/dL. Patient is maintained on IV fluids. His hypernatremia has improved. On examination this morning, blood pressure was 145/81, heart rate of 91 per minute. Patient is afebrile. EXAMINATION OF THE HEART: S1 and S2. EXAMINATION OF LUNGS: Bilateral breath sounds are heard. ABDOMEN: Soft, non-tender. Examination of lower extremities shows no significant edema. Labs show sodium of 146, potassium 3.6, chloride 111, BUN 76, serum creatinine 4.37, phosphorus 3.2, calcium 7.6, albumin 2.2. ASSESSMENT: 1. Acute kidney injury, currently slightly improved. Differential diagnosis includes ATN versus acute GN. 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 His creatinine had peaked at about 6.3, and it is now staying stable at about 4.3 mg/dL. All serologies have been negative except for low complements and patient will need a kidney biopsy. 2. Gastrointestinal bleed. Patient has been evaluated by GI. He did have an EGD and PEG tube placed this afternoon. 3. Hypernatremia associated with free water deficit, currently improved. 4. Dysphagia and vocal cord dysfunction, currently n.p.o. Patient had a PEG tube placed this afternoon. 5. Volume overload last week, which has now improved. Patient's chest x-ray continues to show infiltrates, and a chest CT has been ordered. 6. Metabolic acidosis, now improved. PLAN: Start tube feeding as per Surgery. We can decrease the fluids/TPN when tube feeding is at goal. Continue to avoid nephrotoxic agents. Once he is stable, we can proceed with a kidney biopsy for his possible underlying GN with about 4.5 grams of proteinuria. MMODL / IJN: [id number] /
--- NOTE | 2018-07-11 22:51 | PN ---
PROGRESS NOTE DATE OF SERVICE: 07/11/2018 PRESENTING COMPLAINT: Tired. INTERVAL HISTORY: The patient has been in the hospital for multiple problems, including pneumonia, UTI, metabolic acidosis, acute kidney injury with a history of alcoholism. The patient was on the ventilator and extubated on July 03 and required BiPAP then. Patient was moved out of the ICU, then moved back to the ICU, as patient had become rather lethargic. Patient had a bloody bowel movement and had required 2 units of blood. Patient has been on TPN and lipids. Patient today had a PEG tube placed, but there is oozing around the PEG tube site. Also, one of the biliary stents was removed. Patient was found to have severe esophagitis. REVIEW OF SYSTEMS: Done for constitutional, cardiovascular, GI, pulmonary; relevant findings as above. Patient is awake and does answer questions. CURRENT MEDICATIONS: Reviewed. They include: 1. TPN, lipids. 2. Synthroid. 3. Solu-Medrol. 4. IV Zosyn. PHYSICAL EXAMINATION: Temperature 98.2, pulse 90, respiration 21, blood pressure 151/81, pulse ox 92% on 4 L. GENERAL APPEARANCE: Lying in bed, awake, tired. EYES: Pupils equal. Conjunctivae pale. HEENT: External appearance of nose and ears normal. Oral cavity dry. NECK: JVD unable to assess. Mass not palpable. RESPIRATORY: Effort increased. LUNGS: Decreased breath sounds. CARDIOVASCULAR: First and second sounds normal. No edema. ABDOMEN: Soft, non-tender. Liver and spleen not palpable. PSYCHIATRY: Patient is able to answer questions. Moving his limbs. INVESTIGATIONS: CT scan of the chest shows bilateral pleural effusion. White count 20.7, hemoglobin 8. BUN 76, creatinine 4.37. ASSESSMENT: 1. Pneumonia, possibly aspiration. 2. Acute metabolic encephalopathy with significant improvement. 3. Acute hypoxic respiratory failure, status post ventilator assistance, currently on nasal cannula. 4. Pneumonia with methicillin-susceptible Staphylococcus aeruginosa .. 5. Dysphagia related to vocal cord edema. 6. Severe esophagitis. 7. Acute hypernatremia, likely due to free water deficit, improving. 8. Metabolic acidosis. 9. Hypotensive shock from free water deficit and septic shock. 10.Acute kidney injury, likely acute tubular necrosis, slow to respond. 11.Acute gastrointestinal bleed requiring 2 units of packed red blood cells. 12.Hypothyroidism. 13.Thrombocytopenia, likely from sepsis. 14.CODE STATUS: FULL CODE. 15.PEG tube in place. PLAN: Overall prognosis remains guarded. Continue current medication and treatment plan, antibiotics. I spoke to the nurse. She did call GI back. Some pressure dressing has been applied around the PEG tube site. Repeat patient's hemoglobin in the morning. Antibiotics are to continue. Patient still remains significantly sick and in the ICU. MMODL / IJN: [id number] /
[2018-07-12 00:11] LABS: Glucose,Whole Blood 247 mg/dL (75-99)
[2018-07-12 01:34] LABS: Glucose,Whole Blood 271 mg/dL (75-99)
[2018-07-12] MEDS: MORPHINE SULFATE 2 MG/ML SYRINGE IVP PRN (01:47)
[2018-07-12] MEDS: INSULIN ASPART (NovoLOG) 100 UNIT/ML VIAL SQ SCH ×4 (01:48→18:27)
[2018-07-12] MEDS: methylPREDNISolone SOD SUCCI 40 MG/ML 1 ML VIAL IV SCH ×3 (01:48→16:23)
[2018-07-12] MEDS: IPRATROPIUM-ALBUTEROL 3 ML NEB INHALATION SCH ×6 (03:12→23:34)
[2018-07-12] MEDS: DEXTROSE 5%-0.45% NACL 1,000 ML IV SCH ×2 (04:06→16:23)
[2018-07-12 04:57] LABS: Anisocytosis Moderate; HCT 23.2 % (39.0-53.0); HGB 7.3 gm/dL (13.0-17.5); Hypochromasia Moderate; MCH 31.7 pg (25.0-35.0); MCHC 31.5 g/dL (31.0-37.0); MCV 100.5 fL (80.0-100.0); Macrocytosis Moderate; Mean Platelet Volume 9.4; Platelet Count 146 k/uL (150-450); Poikilocytosis Slight; RBC 2.31 m/uL (4.30-5.90); RDW 20.2 % (11.5-15.5); WBC 19.3 k/uL (3.8-10.6)
[2018-07-12 05:05] LABS: Partial Thromboplastin Time 23.8 sec (22.0-30.0); Prothrombin Time 10.7 sec (9.0-12.0)
[2018-07-12 05:14] LABS: Albumin 2.1 g/dL (3.5-5.0); Calcium 7.7 mg/dL (8.4-10.2); Magnesium 2.1 mg/dL (1.6-2.3); Phosphorus 3.3 mg/dL (2.5-4.5); Potassium 3.6 mmol/L (3.5-5.1); Total Bilirubin 2.1 mg/dL (0.2-1.3); Total Protein 4.5 g/dL (6.3-8.2)
[2018-07-12 06:00] LABS: Band Neutrophils % 1 %; Lymphocytes # (M) 0.19 k/uL (1.0-4.8); Monocytes # (M) 0.39 k/uL (0-1.0); Neutrophils % (M) 96 %; Nucleated Red Blood Cells 0 /100 WBC (0-0); Total Cells Counted 100
[2018-07-12 06:01] LABS: RBC Fragments Present; Target Cells Present
[2018-07-12 06:44] LABS: Glucose,Whole Blood 275 mg/dL (75-99)
--- NOTE | 2018-07-12 07:22 | XR ---
EXAMINATION TYPE: XR chest 1V portable DATE OF EXAM: 07/12/2018 COMPARISON: 07/11/2018 HISTORY: Shortness of breath TECHNIQUE: Single frontal view of the chest is obtained. FINDINGS: Postsurgical change overlying the cervical spine. Arthropathy of the shoulders. Diffuse in terstitial pattern with bilateral consolidation and pleural effusion. Heart size normal. Hypertrophic and degenerative changes of the spine. IMPRESSION: Bilateral consolidation and pleural effusion correlate for CHF otherwise consider pneumo dusty.
[2018-07-12] MEDS: PIPERACILLIN-TAZOBACTAM 3.375 GM in SODIUM CHLORIDE 0.9% 100 ML IVPB SCH ×2 (08:29→21:22)
[2018-07-12] MEDS: LEVOTHYROXINE IVP 100 MCG/5 ML VIAL IV SCH (08:30)
[2018-07-12] MEDS: PANTOPRAZOLE 40 MG/10 ML VIAL IVP SCH ×2 (08:30→21:23)
[2018-07-12] MEDS: CALCIUM GLUCONATE 1 GM in SODIUM CHLORIDE 0.9% 100 ML IVPB SCH ×2 (08:30→21:23)
[2018-07-12] MEDS: 1: MVI, ADULT NO.4 WITH VIT K 10 ML, TRACE (CONC-1ML/DOSE) 1 ML in AMINO ACID 5%-D15W+LY IV SCH ×6 (08:31→22:56)
[2018-07-12] MEDS ORDERED: POTASSIUM CHLORIDE 20 MEQ in WATER FOR INJECTION 1 100ML.BAG IVPB ONE (09:00)
--- NOTE | 2018-07-12 09:54 | P.PN ---
Subjective Progress Note Date: 07/12/18 Principal diagnosis: Septic shock, likely related to Pseudomonas pneumonia infection, urinary tract infection, metabolic acidosis, acute kidney injury This is a 68-year-old white male, known history of pancreatitis, attention, he had previous ERCP for bile duct stent with colitis and history of alcohol abuse. Patient presented to [facility] with 1 week history of worsening shortness of breath. Patient was noted to be anemic, and he was transfused with 2 units of packed RBCs upon presentation. He was seen by gastroenterology on consultation and he was being considered for EGD. In the meantime the patient was placed on Protonix. Patient is known to have history of alcohol abuse, drinks liquor on a daily basis, patient had previous history of bile duct stricture in 2014 and pancreatitis, requiring biliary stenting. Patient is also known to have history of thrombocytopenia and macrocytic anemia. Upon presentation, the patient was noted to have fecal occult blood test positive. The patient was admitted on 06/29, and this morning the rapid response team from the ICU and responded to the patient being hypotensive and short of breath. I was notified about the patient's ABG showing a pO2 of 87 pCO2 of 39 and pH of 7.07. His bicarb was noted to be 12. Hence I recommended immediate intubation fluids, and immediate transfer to the intensive care unit. Shortly after, the patient arrived to the ICU, and he was again noted to be hypotensive, more fluid boluses were given. Started the patient on norepinephrine and this will be titrated accordingly to a mean arterial pressure of 65 or higher. Patient was noted to be oliguric, and he likely developed acute tubular necrosis because of low blood pressure, and nephrology consultation was initiated. In the meantime the patient will need to be on broad-spectrum antibiotics for presumptive sepsis. His chest x-ray showed no evidence of infiltrate, however his urine may be infected based on the urinalysis upon admission. Patient is on Rocephin, and he is also on Zosyn. Patient was reevaluated today on 07/01/2018, he remains on mechanical ventilation, his ventilator settings are assist control rate of 20, tidal volume of 450, FiO2 of 40%, and PEEP of 5. Chest x-ray is now shaving clearly bilateral pneumonia right lower lobe infiltrate is noted, and suspect left retrocardiac opacity/consolidation. His sputum is positive for presumptive Pseudomonas. ABG this morning showed a pO2 of 92 pCO2 of 38 pH of 7.33. Patient is metabolically acidotic, remains on sodium bicarb drip and this is related to his sepsis, and acute tubular necrosis/acute kidney injury. Patient remains on propofol, he is also on norepinephrine, 6 mcg/m,. Patient is also on insulin drip. Urine output is about 30 mL per hour. Continues to have a nasogastric tube in place, and he would have enteral feeding started today. Medication-alvarez the patient is on DuoNeb updrafts, Rocephin and Zosyn, will likely change Rocephin to Levaquin since we may be dealing with pseudomonas aeruginosa pneumonia. Patient received significant amount of fluid boluses yesterday, roughly a total of 4 L. And later on he required to be placed on norepinephrine. Again his blood pressure is marginal, but urine output seems to be improving steadily. His BUN today is 94, creatinine is 5.81, improved compared to creatinine yesterday. Patient does have a low ionized calcium, will give the patient calcium gluconate. We'll also cut down on the bicarb drip today. On 07/05/2018 patient seen in follow-up [facility] surgical floor. She is resting comfortably in bed, in no acute distress. 3 L of oxygen his pulse ox is 97%, no fever or chills, hemodynamic patient is stable, lung sounds are positive for coarse rhonchi, he is coughing, at times she is able to clear some stuff, but mostly dumbest nonproductive. Patient has failed a swallow evaluation, remains nothing by mouth at this time. Today's labs have been reviewed, shows a white blood cell count of 11.7, hemoglobin of 8.4, sodium is 147 potassium is 4.6. Sputum was positive for Staphylococcus aureus, with sensitivity to oxacillin. Abiotic coverage in the form of Kefzol, ID service is following 07/06/2016 patient seen in follow-up on medical surgical floor. He is resting comfortably in bed, in no acute distress, lung sounds remain wheezy, but slightly improved from yesterday's exam, he is on 3 L of oxygen per nasal cannula his pulse ox is 90%, hemodynamically stable, afebrile. His voice remains quite hoarse, his swallowing is impaired. 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 Patient remains nothing by mouth right now, history we started him on IV steroids, antibiotic coverage in the form of Kefzol for oxacillin sensitive staph pneumonia. GI service has been consulted for possibility of PEG tube placement. Today's labs have been reviewed, white blood cell count is 12.4, hemoglobin is 8.5, serum sodium is on the rise, up to 151 07/03/1945 on yesterday's labs, potassium is 4.7, chloride is 117, CO2 is 15, BUN is 77, creatinine is 5.43. On 07/08/2018 patient seen in follow-up on medical surgical floor. Apparently he was experiencing respiratory distress last night, and rapid response team was called. Lung sounds are congested, and wet sounding, patient was given a dose of IV Lasix. Chest x-ray was obtained showing pulmonary edema, bilateral pleural effusions. Nephrology service has been following, and has increased patient's Lasix to 60 mg twice daily. 's morning we were called in regards to patient still experiencing shortness of breath, wheezing, wet sounding, congested. Patient was placed on BiPAP support, with pressures of 10 and 5, and 50%. He started to diurese, indwelling catheter was placed. At the time of her evaluation his were comfortable, tolerating BiPAP support very well, awake and alert, lung sounds are diminished, with scattered rhonchi. Starting to produce dilute clear yellow urine. No fever or chills, today's labs have been reviewed, and showed a white blood cell count of 17.0, hemoglobin of 8.6, serum sodium is 150, potassium is 3.6, chloride is 116, CO2 is 23, BUN 77, creatinine is 4.72. On 07/12/2016 patient seen in follow-up in the intensive care unit, he is resting in bed, is on 3 L of oxygen with pulse ox of 96-98%, he states he is mildly short of breath, but no acute distress, he is afebrile, hemodynamically patient stable, patient had a PEG tube inserted yesterday, and one of his biliary stents was removed during the procedure, patient had diffusely inflamed esophagitis, and that there was some bleeding encountered and patient started desaturating, and the second biliary stent was not removed at this time. We spoke to the GI service and apparently patient had the biliary stents in for a long time for probability of biliary strictures, patient was at [facility], and apparently the malignancy was ruled out, and the stents were due to come out over a year ago. PEG tube was placed, no active bleeding was encountered other than some bleeding from the esophageal irritation. Overnight patient experienced some bleeding from the from the PEG tube insertion site, significant blood is seen in the gastric tube aspirate, the bleeding is noted to be coming from the outside of the abdominal wall. Surgicel packing was applied, today's blood work has been reviewed, white blood cell count is 19.3, hemoglobin is 7.3, platelet count is 146, sodium is 146, potassium 3.6, BUN is 75, creatinine is 4.12. INR 1.0, PT is 10.7. Today's chest x-ray has been reviewed by Dr. Medel, bilateral consolidation and pleural effusion, right greater than the left. Sputum cultures were positive for Staphylococcus aureus Zosyn to clindamycin, and erythromycin. Back coverage in the form of Zosyn continues. Lung sounds are grossly rhonchorous. She continues on TPN for nutritional support, 0.9 half-normal saline at a rate of 75 ML is infusing, lipids infusing 12 hours on 12 hours off. he has a Zhu catheter in place, patient is nonoliguric. Objective - Vital Signs Vital signs: Vital Signs Temp 98.0 F 07/12/18 08:00 Pulse 93 07/12/18 09:19 Resp 16 07/12/18 09:00 BP 145/75 07/12/18 09:00 Pulse Ox 96 07/12/18 09:00 Intake & Output 07/11/18 07/12/18 07/12/18 18:59 06:59 18:59 Intake Total 1658 1814 128 Output Total 745 840 70 Balance 913 974 58 Weight 62.8 kg Intake: IV 1108 1814 128 CVP 33 33 3 Calcium Gluconate 1 gm In 100 100 Sodium Chloride 0.9% 100 ml @ 100 mls/hr IVPB BID [facility] Rx#:[id number] Dextrose 5%-0.45% NaCl 1, 495 495 45 000 ml @ 75 mls/hr IV . [id number] [facility] Rx#:[id number] Fat Emulsion 20% 250 ml @ 126 21 mls/hr IV Q24H [facility] Rx #:[id number] Mvi, Adult No.4 with Vit 380 960 80 K 10 ml Trace (Conc-1Ml/ Dose) 1 ml In Amino Acid 5%-D15w+Lytes*E* 1,000 ml @ 30 mls/hr IV .Q24H [facility] Rx#:[id number] Piperacillin-Tazobactam 3 100 100 .375 gm In Sodium Chloride 0.9% 100 ml @ 25 mls/hr IVPB Q12HR [facility] Rx #:[id number] Intake, IV Titration 550 Amount Fat Emulsion 20% 250 ml @ 250 21 mls/hr IV Q24H [facility] Rx #:[id number] Magnesium Sulfate-D5w Pmx 200 1 gm In Dextrose/Water 1 100ml.bag @ 100 mls/hr IVPB Q1H [facility] Rx#: [id number] Potassium Chloride 20 meq 100 In Water For Injection 1 100ml.bag @ 50 mls/hr IVPB ONCE ONE Rx#: [id number] Output: Urine 745 840 70 Other: Voiding Method Indwelling Catheter Indwelling Catheter Indwelling Catheter # Voids 0 0 # Bowel Movements 1 ABP, PAP, CO, CI - Last Documented Arterial Blood Pressure 158/56 - Exam GENERAL EXAM: Alert, pleasant 68-year-old white male on 3 days of oxygen per nasal cannula HEAD: Normocephalic/atraumatic. EYES: Normal reaction of pupils, equal size. Conjunctiva pink, sclera white. NOSE: Clear with pink turbinates. THROAT: No erythema or exudates. NECK: No masses, no JVD, no thyroid enlargement, no adenopathy. CHEST: No chest wall deformity. Symmetrical expansion. LUNGS: Equal air entry with mesh breath sounds at bilateral bases, with the diffuse rhonchi and wheezes CVS: Regular rate and rhythm, normal S1 and S2, no gallops, no murmurs, no rubs ABDOMEN: Soft, nontender. No hepatosplenomegaly, normal bowel sounds, no guarding or rigidity. PEG tube is in place, and there is some continues bleeding from the session site, the site was packed with Surgicel, gastric tube aspirate was not grossly bloody EXTREMITIES: No clubbing, no edema, no cyanosis, 2+ pulses and upper and lower extremities. MUSCULOSKELETAL: Muscle strength and tone normal. SPINE: No scoliosis or deformity SKIN: No rashes CENTRAL NERVOUS SYSTEM: Alert and oriented -3. No focal deficits, tone is normal in all 4 extremities. PSYCHIATRIC: Alert and oriented -3. Appropriate affect. Intact judgment and insight. - Labs CBC & Chem 7: 07/12/18 04:49 07/12/18 04:49 Labs: Abnormal Lab Results - Last 24 Hours (Table) 06/29/18 07/10/18 07/11/18 Range/Units 03:30 09:38 11:53 WBC (3.8-10.6) k/uL RBC (4.30-5.90) m/uL Hgb (13.0-17.5) gm/dL Hct (39.0-53.0) % MCV (80.0-100.0) fL RDW (11.5-15.5) % Plt Count (150-450) k/uL Neutrophils # (1.3-7.7) k/uL Neutrophils # (Manual) (1.3-7.7) k/uL Lymphocytes # (1.0-4.8) k/uL Lymphocytes # (Manual) (1.0-4.8) k/uL Sodium (137-145) mmol/L Chloride (98-107) mmol/L BUN (9-20) mg/dL Creatinine (0.66-1.25) mg/dL Glucose (74-99) mg/dL POC Glucose (mg/dL) 207 H (75-99) mg/dL Calcium (8.4-10.2) mg/dL Total Bilirubin (0.2-1.3) mg/dL AST (17-59) U/L ALT (21-72) U/L Alkaline Phosphatase (38-126) U/L Total Protein (6.3-8.2) g/dL Albumin (3.5-5.0) g/dL Crossmatch See Detail See Detail 07/11/18 07/11/18 07/12/18 Range/Units 15:42 17:36 00:09 WBC 20.7 H (3.8-10.6) k/uL RBC 2.50 L (4.30-5.90) m/uL Hgb 8.0 L (13.0-17.5) gm/dL Hct 24.9 L (39.0-53.0) % MCV (80.0-100.0) fL RDW 20.1 H (11.5-15.5) % Plt Count (150-450) k/uL Neutrophils # 19.7 H (1.3-7.7) k/uL Neutrophils # (Manual) (1.3-7.7) k/uL Lymphocytes # 0.4 L (1.0-4.8) k/uL Lymphocytes # (Manual) (1.0-4.8) k/uL Sodium (137-145) mmol/L Chloride (98-107) mmol/L BUN (9-20) mg/dL Creatinine (0.66-1.25) mg/dL Glucose (74-99) mg/dL POC Glucose (mg/dL) 196 H 247 H (75-99) mg/dL Calcium (8.4-10.2) mg/dL Total Bilirubin (0.2-1.3) mg/dL AST (17-59) U/L ALT (21-72) U/L Alkaline Phosphatase (38-126) U/L Total Protein (6.3-8.2) g/dL Albumin (3.5-5.0) g/dL Crossmatch 07/12/18 07/12/18 07/12/18 Range/Units 01:32 04:49 04:49 WBC 19.3 H (3.8-10.6) k/uL RBC 2.31 L (4.30-5.90) m/uL Hgb 7.3 L (13.0-17.5) gm/dL Hct 23.2 L (39.0-53.0) % MCV 100.5 H (80.0-100.0) fL RDW 20.2 H (11.5-15.5) % Plt Count 146 L (150-450) k/uL Neutrophils # (1.3-7.7) k/uL Neutrophils # (Manual) 18.70 H (1.3-7.7) k/uL Lymphocytes # (1.0-4.8) k/uL Lymphocytes # (Manual) 0.19 L (1.0-4.8) k/uL Sodium 146 H (137-145) mmol/L Chloride 112 H (98-107) mmol/L BUN 75 H (9-20) mg/dL Creatinine 4.12 H (0.66-1.25) mg/dL Glucose 220 H (74-99) mg/dL POC Glucose (mg/dL) 271 H (75-99) mg/dL Calcium 7.7 L (8.4-10.2) mg/dL Total Bilirubin 2.1 H (0.2-1.3) mg/dL AST 162 H (17-59) U/L ALT 83 H (21-72) U/L Alkaline Phosphatase 460 H (38-126) U/L Total Protein 4.5 L (6.3-8.2) g/dL Albumin 2.1 L (3.5-5.0) g/dL Crossmatch 07/12/18 Range/Units 06:43 WBC (3.8-10.6) k/uL RBC (4.30-5.90) m/uL Hgb (13.0-17.5) gm/dL Hct (39.0-53.0) % MCV (80.0-100.0) fL RDW (11.5-15.5) % Plt Count (150-450) k/uL Neutrophils # (1.3-7.7) k/uL Neutrophils # (Manual) (1.3-7.7) k/uL Lymphocytes # (1.0-4.8) k/uL Lymphocytes # (Manual) (1.0-4.8) k/uL Sodium (137-145) mmol/L Chloride (98-107) mmol/L BUN (9-20) mg/dL Creatinine (0.66-1.25) mg/dL Glucose (74-99) mg/dL POC Glucose (mg/dL) 275 H (75-99) mg/dL Calcium (8.4-10.2) mg/dL Total Bilirubin (0.2-1.3) mg/dL AST (17-59) U/L ALT (21-72) U/L Alkaline Phosphatase (38-126) U/L Total Protein (6.3-8.2) g/dL Albumin (3.5-5.0) g/dL Crossmatch Assessment and Plan Plan: Assessment: #1. Acute hypoxemic respiratory failure requiring intubation and mechanical v entilation for staph pneumonia, and the sputum culture showed staph was sensitive to oxacillin/MSSA and the patient was being treated with IV Solu.. Patient was intubated on June 30, and successfully extubated on July 03, and the patient had bilateral lower lobe pulmonary infiltrate was improving on yesterday's chest x-ray. The patient got transferred to the ICU today because of diminished level of consciousness and worsening in the mentation and respiratory status. On route to the ICU, the patient underwent a CAT scan of the head that showed age-related atrophy without any acute abnormalities. On 07/10/2018, the patient remains on oxygen at 4 L per minute nasal cannula. Chest x-ray showing worsening in lower lobe consolidation and effusions. Suspect pneumonia with possibly development of a pleural effusion. Despite all this, the patient is not having any worsening shortness of breath is off the BiPAP and is currently on 40s about 2 by nasal cannula. Consider aspiration pneumonia. Consider hospital-acquired pneumonia. on 07/11/2018, the patient is going to have a CAT scan of the chest knowing that the patient has persistent opacification of the lung bases and I suspect pleural effusion with possibility of an underlying aspiration pneumonia. For that reason, a CAT scan of the chest without contrast will be obtained. #2. Dysphagia related to vocal cord edema, and redness, ENT evaluation was obtained, please refer to their note. The patient has not had anything to eat for the past 8-10 days. the patient is currently on TPN for nutritional support. Status post PEG tube insertion, postop day 1, and TPN for nutritional support, tube feedings are on hold right now, and there is been some continuous oozing from the PEG tube insertion site, the site has been packed with Surgicel gauze. #3. Hypernatremia, improving as the patient was being resuscitated with IV fluids and currently he is on D5 half-normal saline. #4. Possible tract infection, cultures are negative #5. Blood loss anemia secondary to GI bleed. Hemoglobin dropped down to 5.5 and the patient is receiving 2 units of packed RBCsMR current hemoglobin is at 7.9. There is concern that the patient is on of bleeding and the patient will need to be further investigated with EGD and colonoscopy. #6. History of acute kidney injury IN improving only over the past few days. Creatinine on 07/06/2018 was at 5.4 is currently down to 4.3 and the patient is producing urine #7. Gastrointestinal bleeding, status post 2 units of PRBCs, on admission, and subsequently the patient had another large volume GI bleed this morning with significant drop in hemoglobin down to 5.5. GI is on the case. Suspect a lower GI bleed. #8. History of hypothyroidism #9. Full CODE STATUS #10. Thrombocytopenia, improving #11 abnormal LFTs, likely secondary to hypotension/shock liver Plan: Continue current antibiotic coverage, we spoke to the GI service, the PEG tube site has been packed with Surgicel, continue monitoring hemodynamics, hemoglobin, patient will need thoracentesis today, patient has large pleural effusions bilaterally, right greater than the left. We'll plan for today, continue with the TPN and IV fluids, sodium is stable, patient's mentation is appropriate, remains off BiPAP support. Remain the ICU. No profile is relatively stable, nephrology is following and making recommendations. Patient is nonoliguric. I performed a history & physical examination of the patient and discussed their management with my nurse practitioner, Ashley Vigil. I reviewed the nurse sunitha cagle's note and agree with the documented findings and plan of care. Lung sounds are positive for diffuse rhonchi throughout the lung yi. The findings and the impression was discussed with the patient. I attest to the documentation by the nurse practitioner. Time with Patient: Greater than 30
[2018-07-12] MEDS ORDERED: DESMOPRESSIN ACETATE 19 MCG in SODIUM CHLORIDE 0.9% 50 ML IVPB ONE (10:00)
--- NOTE | 2018-07-12 11:32 | P.PN ---
Subjective Progress Note Date: 07/12/18 Principal diagnosis: GI bleed. Anemia. History chronic pancreatitis. Oropharyngeal dysphagia. Status post EGD PEG tube insertion yesterday with evidence of 2 biliary stents 1 removed. Postprocedure patient experienced persistent bleeding around PEG site per nursing. No rectal bleeding. No emesis. White count 19.3. He will and 7.3. Platelet 146. INR 1.0. LFTs improved total bilirubin 2.1. AST 162. ALT 83. AP 460. Objective - Vital Signs Vital signs: Vital Signs Temp 98.0 F 07/12/18 08:00 Pulse 93 07/12/18 10:00 Resp 15 07/12/18 10:00 BP 142/74 07/12/18 10:00 Pulse Ox 98 07/12/18 10:00 Intake & Output 07/11/18 07/12/18 07/12/18 18:59 06:59 18:59 Intake Total 1708 1814 762 Output Total 745 840 195 Balance 963 974 567 Weight 62.8 kg Intake: IV 1158 1814 607 CVP 33 33 12 Calcium Gluconate 1 gm In 100 100 100 Sodium Chloride 0.9% 100 ml @ 100 mls/hr IVPB BID [facility] Rx#:[id number] Dextrose 5%-0.45% NaCl 1, 495 495 75 000 ml @ 75 mls/hr IV . [id number] [facility] Rx#:[id number] Fat Emulsion 20% 250 ml @ 126 21 mls/hr IV Q24H [facility] Rx #:[id number] Mvi, Adult No.4 with Vit 380 960 320 K 10 ml Trace (Conc-1Ml/ Dose) 1 ml In Amino Acid 5%-D15w+Lytes*E* 1,000 ml @ 30 mls/hr IV .Q24H [facility] Rx#:[id number] Piperacillin-Tazobactam 3 100 100 100 .375 gm In Sodium Chloride 0.9% 100 ml @ 25 mls/hr IVPB Q12HR [facility] Rx #:[id number] Intake, IV Titration 550 155 Amount Desmopressin Acetate 19 55 mcg In Sodium Chloride 0. 9% 50 ml @ 200 mls/hr IVPB ONCE [facility] Rx#: [id number] Fat Emulsion 20% 250 ml @ 250 21 mls/hr IV Q24H [facility] Rx #:[id number] Magnesium Sulfate-D5w Pmx 200 1 gm In Dextrose/Water 1 100ml.bag @ 100 mls/hr IVPB Q1H [facility] Rx#: [id number] Potassium Chloride 20 meq 100 In Water For Injection 1 100ml.bag @ 50 mls/hr IVPB ONCE ONE Rx#: [id number] Potassium Chloride 20 meq 100 In Water For Injection 1 100ml.bag @ 50 mls/hr IVPB ONCE ONE Rx#: [id number] Output: Urine 745 840 195 Other: Voiding Method Indwelling Catheter Indwelling Catheter Indwelling Catheter # Voids 0 0 # Bowel Movements 1 ABP, PAP, CO, CI - Last Documented Arterial Blood Pressure 158/56 - Exam General appearance: The patient is alert, oriented, in no acute distress. HET: Head is normocephalic and atraumatic. Pupils are equal and reactive. Oropharynx is clear without lesions. Neck: Supple without lymphadenopathy. Trachea midline. Heart: S1 S2. Regular rate and rhythm. Lungs: No crackles or wheezes are heard. Abdomen: Soft, tenderness around PEG site. 10 o'clock position active bloody loose with no hematoma. Normal bowel sounds. No peritoneal signs. No palpable organomegaly or masses. Extremities: Normal skin color and turgor. No cyanosis, rash, ulceration, clu bbing, or edema. Radial and pedal pulses are 2/4 bilaterally. Neurological: No focal deficits. Strength and sensation are grossly intact. - Labs CBC & Chem 7: 07/13/18 04:29 07/13/18 04:29 Labs: Abnormal Lab Results - Last 24 Hours (Table) 06/29/18 07/10/18 07/11/18 Range/Units 03:30 09:38 11:53 WBC (3.8-10.6) k/uL RBC (4.30-5.90) m/uL Hgb (13.0-17.5) gm/dL Hct (39.0-53.0) % MCV (80.0-100.0) fL RDW (11.5-15.5) % Plt Count (150-450) k/uL Neutrophils # (1.3-7.7) k/uL Neutrophils # (Manual) (1.3-7.7) k/uL Lymphocytes # (1.0-4.8) k/uL Lymphocytes # (Manual) (1.0-4.8) k/uL Sodium (137-145) mmol/L Chloride (98-107) mmol/L BUN (9-20) mg/dL Creatinine (0.66-1.25) mg/dL Glucose (74-99) mg/dL POC Glucose (mg/dL) 207 H (75-99) mg/dL Calcium (8.4-10.2) mg/dL Total Bilirubin (0.2-1.3) mg/dL AST (17-59) U/L ALT (21-72) U/L Alkaline Phosphatase (38-126) U/L Total Protein (6.3-8.2) g/dL Albumin (3.5-5.0) g/dL Crossmatch See Detail See Detail 07/11/18 07/11/18 07/12/18 Range/Units 15:42 17:36 00:09 WBC 20.7 H (3.8-10.6) k/uL RBC 2.50 L (4.30-5.90) m/uL Hgb 8.0 L (13.0-17.5) gm/dL Hct 24.9 L (39.0-53.0) % MCV (80.0-100.0) fL RDW 20.1 H (11.5-15.5) % Plt Count (150-450) k/uL Neutrophils # 19.7 H (1.3-7.7) k/uL Neutrophils # (Manual) (1.3-7.7) k/uL Lymphocytes # 0.4 L (1.0-4.8) k/uL Lymphocytes # (Manual) (1.0-4.8) k/uL Sodium (137-145) mmol/L Chloride (98-107) mmol/L BUN (9-20) mg/dL Creatinine (0.66-1.25) mg/dL Glucose (74-99) mg/dL POC Glucose (mg/dL) 196 H 247 H (75-99) mg/dL Calcium (8.4-10.2) mg/dL Total Bilirubin (0.2-1.3) mg/dL AST (17-59) U/L ALT (21-72) U/L Alkaline Phosphatase (38-126) U/L Total Protein (6.3-8.2) g/dL Albumin (3.5-5.0) g/dL Crossmatch 07/12/18 07/12/18 07/12/18 Range/Units 01:32 04:49 04:49 WBC 19.3 H (3.8-10.6) k/uL RBC 2.31 L (4.30-5.90) m/uL Hgb 7.3 L (13.0-17.5) gm/dL Hct 23.2 L (39.0-53.0) % MCV 100.5 H (80.0-100.0) fL RDW 20.2 H (11.5-15.5) % Plt Count 146 L (150-450) k/uL Neutrophils # (1.3-7.7) k/uL Neutrophils # (Manual) 18.70 H (1.3-7.7) k/uL Lymphocytes # (1.0-4.8) k/uL Lymphocytes # (Manual) 0.19 L (1.0-4.8) k/uL Sodium 146 H (137-145) mmol/L Chloride 112 H (98-107) mmol/L BUN 75 H (9-20) mg/dL Creatinine 4.12 H (0.66-1.25) mg/dL Glucose 220 H (74-99) mg/dL POC Glucose (mg/dL) 271 H (75-99) mg/dL Calcium 7.7 L (8.4-10.2) mg/dL Total Bilirubin 2.1 H (0.2-1.3) mg/dL AST 162 H (17-59) U/L ALT 83 H (21-72) U/L Alkaline Phosphatase 460 H (38-126) U/L Total Protein 4.5 L (6.3-8.2) g/dL Albumin 2.1 L (3.5-5.0) g/dL Crossmatch 07/12/18 Range/Units 06:43 WBC (3.8-10.6) k/uL RBC (4.30-5.90) m/uL Hgb (13.0-17.5) gm/dL Hct (39.0-53.0) % MCV (80.0-100.0) fL RDW (11.5-15.5) % Plt Count (150-450) k/uL Neutrophils # (1.3-7.7) k/uL Neutrophils # (Manual) (1.3-7.7) k/uL Lymphocytes # (1.0-4.8) k/uL Lymphocytes # (Manual) (1.0-4.8) k/uL Sodium (137-145) mmol/L Chloride (98-107) mmol/L BUN (9-20) mg/dL Creatinine (0.66-1.25) mg/dL Glucose (74-99) mg/dL POC Glucose (mg/dL) 275 H (75-99) mg/dL Calcium (8.4-10.2) mg/dL Total Bilirubin (0.2-1.3) mg/dL AST (17-59) U/L ALT (21-72) U/L Alkaline Phosphatase (38-126) U/L Total Protein (6.3-8.2) g/dL Albumin (3.5-5.0) g/dL Crossmatch Assessment and Plan (1) GIB (gastrointestinal bleeding) Narrative/Plan: Status post EGD PEG tube insertion removal of one biliary stent, second biliary stent in place, no evidence of peptic ulcer disease etiology of rectal bleeding could be colonic in nature possible distal small bowel source. Current Visit: Yes Status: Acute Code(s): K92.2 - GASTROINTESTINAL HEMORRHAGE, UNSPECIFIED SNOMED Code(s): 19493547 (2) Macrocytic anemia Current Visit: Yes Status: Acute Priority: Medium Code(s): D53.9 - NUTRITIONAL ANEMIA, UNSPECIFIED SNOMED Code(s): 80398974 (3) MUMTAZ (acute kidney injury) Current Visit: Yes Status: Acute Code(s): N17.9 - ACUTE KIDNEY FAILURE, UNSPECIFIED SNOMED Code(s): 33771770 (4) Acute blood loss anemia Current Visit: Yes Status: Acute Code(s): D62 - ACUTE POSTHEMORRHAGIC ANEMIA SNOMED Code(s): 149205303 (5) Oropharyngeal dysphagia Current Visit: Yes Status: Acute Code(s): R13.12 - DYSPHAGIA, OROPHARYNGEAL PHASE SNOMED Code(s): 83704863 (6) Pancreatitis Current Visit: No Status: Acute Code(s): K85.9 - ACUTE PANCREATITIS, UNSPECIFIED * DO NOT USE * SNOMED Code(s): 05430832 Plan: 1. Surgicel placed around PEG site with dressings. Case discussed with nephrology will give DDAVP. Continue symptomatic supportive measures. Do not use PEG tube for feeds her meds at this time. Inpatient colonoscopy contingent on clinical course but not planned at this time. Pleural effusions per radiographic imaging pulmonary following closely. CBC monitoring. Continue GI prophylaxis. Assessment and plan a care discussed with Dr. Bean
--- NOTE | 2018-07-12 11:49 | PN ---
PROGRESS NOTE Patient is seen for followup for acute kidney injury on chronic kidney disease. He had PEG tube placed yesterday. This morning it has been bleeding. Otherwise, patient is doing fairly well. He has had good urine output. PHYSICAL EXAMINATION: Upon examination this morning, blood pressure was 145/75, heart rate 93 per minute. He is afebrile. EXAMINATION OF THE ABDOMEN: Soft, nontender. Examination of lower extremities shows no significant edema. There is bleeding noted at the site of the PEG tube, currently local pressure is being applied. [employer] exam is grossly intact. LABS: Labs show sodium 146, potassium 3.6, BUN 75, serum creatinine 4.12. Hemoglobin 7.3 g/dL. ASSESSMENT: 1. Acute kidney injury, mostly acute tubular necrosis, currently improved with creatinine down from 6.3 to 4.1 now. 2. Chronic kidney disease, mostly underlying chronic GN. The patient will need a kidney biopsy. We can plan on a biopsy early next week. At this time, patient was had been unstable. Therefore it was held. His renal function has been fairly stable. levels were low. Other serologies have been negative. Proteinuria is about 1.5 grams. 3. Bleeding at the site of the PEG tube. We will give a dose of DDAVP given his advanced renal failure. 4. Hypernatremia, improved. 5. Vocal cord dysfunction and dysphagia. 6. MSSA pneumonia. 7. Status post acute hypoxic respiratory failure. 8. Encephalopathy, currently improved. 9. Recent pneumonia most likely aspiration, maintained on antibiotics. PLAN: DDAVP x1. We will continue with the fluids and I will send for a kidney biopsy next week. MMODL / IJN: [id number] /
[2018-07-12 11:58] LABS: Glucose,Whole Blood 206 mg/dL (75-99)
[2018-07-12] MEDS: FAT EMULSION 20% 250 ML IV SCH (12:25)
[2018-07-12 18:24] LABS: Glucose,Whole Blood 228 mg/dL (75-99)
[2018-07-12 18:49] LABS: Anisocytosis Moderate; Hypochromasia Moderate; MCH 32.8 pg (25.0-35.0); MCHC 32.2 g/dL (31.0-37.0); MCV 102.1 fL (80.0-100.0); Macrocytosis Moderate; Mean Platelet Volume 9.3; Platelet Count 136 k/uL (150-450); Poikilocytosis Slight; RBC 1.73 m/uL (4.30-5.90); RDW 22.4 % (11.5-15.5); WBC 18.2 k/uL (3.8-10.6)
[2018-07-12 18:55] LABS: HGB 5.7 gm/dL (13.0-17.5)
[2018-07-12 18:59] LABS: HCT 17.6 % (39.0-53.0)
[2018-07-12 23:39] LABS: Glucose,Whole Blood 317 mg/dL (75-99)
[2018-07-12] MEDS ORDERED: INSULIN DETEMIR (LEVEMIR) 100 UNIT/ML SYR SQ SCH (23:45)
--- NOTE | 2018-07-13 00:01 | PN ---
PROGRESS NOTE DATE OF SERVICE: 07/12/2018 PRESENTING COMPLAINT: Tired. INTERVAL HISTORY: This patient was admitted to the hospital with multiple issues, including pneumonia, UTI, metabolic acidosis, acute kidney injury with a history of alcoholism. The patient had been on ventilator, was extubated on July 03, required BiPAP, moving out of the ICU then moved back to the ICU. Patient had a bloody bowel movement and required 2 units of blood. Patient has been on TPN and lipids. Patient had a PEG tube placed on 07/11/2018 and has bleeding around the site. Pressure and a binder has been ordered. Patient also had one of the biliary stents removed. Telemetry shows sinus rhythm. He was on 2 L of oxygen. Awake. Tired. REVIEW OF SYSTEMS: Done for constitutional, cardiovascular, GI, pulmonary; relevant findings as above. CURRENT MEDICATIONS: Reviewed. They include TPN, lipids, Aranesp, IV Zosyn. PHYSICAL EXAMINATION: Temperature 98.3, pulse 99, respiration 17, blood pressure 115/76, pulse ox 98% on 4 L. GENERAL APPEARANCE: Lying in bed, awake. Tired. EYES: Pupils equal. Conjunctivae pale. HEENT: Oral cavity dry. NECK: JVD unable to assess. Mass not palpable. RESPIRATORY: Effort increased. LUNGS: Diminished breath sounds. CARDIOVASCULAR: First and second sounds normal. No edema. ABDOMEN: Soft, non-tender. Liver and spleen not palpable. PSYCHIATRY: Awake. Answering questions. INVESTIGATIONS: White count 19.3, hemoglobin 7.3, potassium 3.6, BUN 75, creatinine 4.12. ASSESSMENT: 1. Pneumonia, possibly aspiration. 2. Acute metabolic encephalopathy with significant improvement. 3. Acute hypoxic respiratory failure, status post ventilator assistance, currently on nasal cannula 4 L. 4. Pneumonia with Staphylococcus aureus. 5. Dysphagia related to vocal cord edema. 6. Severe esophagitis. 7. Acute hypernatremia, likely due to free water deficit. 8. Metabolic acidosis. 9. Hypotensive shock from free water deficit and septic shock. 10.Acute kidney injury, likely acute tubular necrosis, slow to respond. 11.Acute gastrointestinal bleed requiring 2 units of packed red blood cells. 12.Acute blood loss anemia, both from gastrointestinal bleed and also bleeding around the PEG tube site. 13.Hypothyroidism. 14.Thrombocytopenia, likely from sepsis. 15.CODE STATUS: FULL CODE. 16.PEG tube in place with bleeding around the PEG tube site. PLAN: Repeat hemoglobin was ordered for this evening. Antibiotics are to continue. Patient remains in the ICU. Prognosis is guarded. JAMESONL / HARPERN: [id number] /
[2018-07-13] MEDS: INSULIN ASPART (NovoLOG) 100 UNIT/ML VIAL SQ SCH ×5 (00:46→20:56)
[2018-07-13] MEDS: methylPREDNISolone SOD SUCCI 40 MG/ML 1 ML VIAL IV SCH ×3 (00:46→16:48)
[2018-07-13] MEDS: IPRATROPIUM-ALBUTEROL 3 ML NEB INHALATION SCH ×6 (03:32→23:34)
[2018-07-13 04:38] LABS: Anisocytosis Slight; Basophils % (A) 0 %; Eosinophils % (A) 0 %; HCT 26.8 % (39.0-53.0); Hypochromasia Slight; Lymphocytes # (A) 0.4 k/uL (1.0-4.8); Lymphocytes % (A) 2 %; MCH 31.7 pg (25.0-35.0); MCHC 33.4 g/dL (31.0-37.0); Macrocytosis Slight; Mean Platelet Volume 9.9; Monocytes # (A) 0.5 k/uL (0-1.0); Monocytes % (A) 3 %; Neutrophils # (A) 16.9 k/uL (1.3-7.7); Neutrophils % (A) 95 %; Platelet Count 120 k/uL (150-450); Poikilocytosis Slight; RBC 2.82 m/uL (4.30-5.90); RDW 19.6 % (11.5-15.5); WBC 17.8 k/uL (3.8-10.6)
[2018-07-13 04:41] LABS: HGB 8.9 gm/dL (13.0-17.5)
[2018-07-13 04:46] LABS: Partial Thromboplastin Time 23.8 sec (22.0-30.0); Prothrombin Time 10.5 sec (9.0-12.0)
[2018-07-13 04:49] LABS: Albumin 2.2 g/dL (3.5-5.0); Calcium 7.6 mg/dL (8.4-10.2); Magnesium 2.1 mg/dL (1.6-2.3); Phosphorus 4.6 mg/dL (2.5-4.5); Potassium 4.4 mmol/L (3.5-5.1); Total Bilirubin 1.3 mg/dL (0.2-1.3); Total Protein 4.5 g/dL (6.3-8.2)
[2018-07-13 06:51] LABS: Glucose,Whole Blood 268 mg/dL (75-99)
[2018-07-13 07:26] LABS: MCV 94.9 fL (80.0-100.0)
--- NOTE | 2018-07-13 07:35 | XR ---
EXAMINATION TYPE: XR chest 1V portable DATE OF EXAM: 07/13/2018 HISTORY: Shortness of breath. COMPARISON: 07/12/2018 TECHNIQUE: Single view of the chest is submitted. FINDINGS: Left IJ central venous line unchanged in position. Perihilar and basilar infiltrates and small effusi ons persist. No significant change appreciated. Cardiomediastinal silhouette is stable. IMPRESSION: 1. Stable chest.
[2018-07-13] MEDS: PANTOPRAZOLE 40 MG/10 ML VIAL IVP SCH ×2 (08:55→20:55)
[2018-07-13] MEDS: LEVOTHYROXINE IVP 100 MCG/5 ML VIAL IV SCH (08:56)
[2018-07-13] MEDS: PIPERACILLIN-TAZOBACTAM 3.375 GM in SODIUM CHLORIDE 0.9% 100 ML IVPB SCH ×2 (08:56→20:54)
--- NOTE | 2018-07-13 10:36 | P.PN ---
Subjective Progress Note Date: 07/13/18 Principal diagnosis: GI bleed. Anemia. History chronic pancreatitis. Oropharyngeal dysphagia. Status post EGD PEG tube insertion 2 days ago with evidence of 2 biliary stents 1 removed. Postprocedure patient experienced persistent bleeding around PEG site per nursing. No rectal bleeding. No emesis. LFTs improving. Hemoglobin decreased to 5.7 initially received 2 units of blood current hemoglobin is 8.9. Bleeding around PEG site has significantly improved however a very mild ooze is still present. Objective - Vital Signs Vital signs: Vital Signs Temp 97.5 F L 07/13/18 09:00 Pulse 93 07/13/18 10:00 Resp 21 07/13/18 10:00 BP 149/72 07/13/18 10:00 Pulse Ox 97 07/13/18 10:00 Intake & Output 07/12/18 07/13/18 07/13/18 18:59 06:59 18:59 Intake Total 1493 2062 402 Output Total 605 520 325 Balance 888 1542 77 Weight 66 kg Intake: IV 711 356 82 CVP 36 36 12 Calcium Gluconate 1 gm In 100 100 Sodium Chloride 0.9% 100 ml @ 100 mls/hr IVPB BID [facility] Rx#:[id number] Dextrose 5%-0.45% NaCl 1, 155 120 20 000 ml @ 10 mls/hr IV . Q24H [facility] Rx#:[id number] Mvi, Adult No.4 with Vit 320 K 10 ml Trace (Conc-1Ml/ Dose) 1 ml In Amino Acid 5%-D15w+Lytes*E* 1,000 ml @ 30 mls/hr IV .Q24H [facility] Rx#:[id number] Piperacillin-Tazobactam 3 100 100 50 .375 gm In Sodium Chloride 0.9% 100 ml @ 25 mls/hr IVPB Q12HR [facility] Rx #:[id number] Intake, IV Titration 782 1086 320 Amount Amino Acid 5%-D15w+Lytes* 240 E* 1,000 ml @ 80 mls/hr IV .BY DURATION [facility] Rx#: [id number] Amino Acid 5%-D15w+Lytes* 240 960 320 E* 1,000 ml @ 80 mls/hr IV .BY DURATION [facility] Rx#: [id number] Desmopressin Acetate 19 55 mcg In Sodium Chloride 0. 9% 50 ml @ 200 mls/hr IVPB ONCE [facility] Rx#: [id number] Fat Emulsion 20% 250 ml @ 147 126 21 mls/hr IV Q24H [facility] Rx #:[id number] Potassium Chloride 20 meq 100 In Water For Injection 1 100ml.bag @ 50 mls/hr IVPB ONCE [facility] Rx#: [id number] Blood Product 620 Rc As-1 Unit 310 [id number] Rc As-1 Unit 310 [id number] Output: Urine 605 520 325 Other: Voiding Method Indwelling Catheter Indwelling Catheter # Voids 0 ABP, PAP, CO, CI - Last Documented Arterial Blood Pressure 158/56 - Exam General appearance: The patient is alert, oriented, in no acute distress. HET: Head is normocephalic and atraumatic. Pupils are equal and reactive. Oropharynx is clear without lesions. Neck: Supple without lymphadenopathy. Trachea midline. Heart: S1 S2. Regular rate and rhythm. Lungs: No crackles or wheezes are heard. Abdomen: Soft, tenderness around PEG site. Surgicell wrapped around peg site with old blood drainage and clot mild ooze noted in o'clock position much improved from yesterday without hematoma formation. Normal bowel sounds. No peritoneal signs. No palpable organomegaly or masses. Extremities: Normal skin color and turgor. No cyanosis, rash, ulceration, clubbing, or edema. Radial and pedal pulses are 2/4 bilaterally. Neurological: No focal deficits. Strength and sensation are grossly intact. - Labs CBC & Chem 7: 07/13/18 04:29 07/13/18 04:29 Labs: Abnormal Lab Results - Last 24 Hours (Table) 07/10/18 07/12/18 07/12/18 Range/Units 09:38 11:56 18:20 WBC 18.2 H (3.8-10.6) k/uL RBC 1.73 L (4.30-5.90) m/uL Hgb 5.7 L* D (13.0-17.5) gm/dL Hct 17.6 L* (39.0-53.0) % MCV 102.1 H (80.0-100.0) fL RDW 22.4 H (11.5-15.5) % Plt Count 136 L (150-450) k/uL Neutrophils # (1.3-7.7) k/uL Lymphocytes # (1.0-4.8) k/uL Chloride (98-107) mmol/L BUN (9-20) mg/dL Creatinine (0.66-1.25) mg/dL Glucose (74-99) mg/dL POC Glucose (mg/dL) 206 H (75-99) mg/dL Calcium (8.4-10.2) mg/dL Phosphorus (2.5-4.5) mg/dL AST (17-59) U/L Alkaline Phosphatase (38-126) U/L Total Protein (6.3-8.2) g/dL Albumin (3.5-5.0) g/dL Crossmatch See Detail 07/12/18 07/12/18 07/13/18 Range/Units 18:21 23:37 04:29 WBC 17.8 H (3.8-10.6) k/uL RBC 2.82 L (4.30-5.90) m/uL Hgb 8.9 L D (13.0-17.5) gm/dL Hct 26.8 L (39.0-53.0) % MCV (80.0-100.0) fL RDW 19.6 H (11.5-15.5) % Plt Count 120 L (150-450) k/uL Neutrophils # 16.9 H (1.3-7.7) k/uL Lymphocytes # 0.4 L (1.0-4.8) k/uL Chloride (98-107) mmol/L BUN (9-20) mg/dL Creatinine (0.66-1.25) mg/dL Glucose (74-99) mg/dL POC Glucose (mg/dL) 228 H 317 H (75-99) mg/dL Calcium (8.4-10.2) mg/dL Phosphorus (2.5-4.5) mg/dL AST (17-59) U/L Alkaline Phosphatase (38-126) U/L Total Protein (6.3-8.2) g/dL Albumin (3.5-5.0) g/dL Crossmatch 07/13/18 07/13/18 Range/Units 04:29 06:50 WBC (3.8-10.6) k/uL RBC (4.30-5.90) m/uL Hgb (13.0-17.5) gm/dL Hct (39.0-53.0) % MCV (80.0-100.0) fL RDW (11.5-15.5) % Plt Count (150-450) k/uL Neutrophils # (1.3-7.7) k/uL Lymphocytes # (1.0-4.8) k/uL Chloride 112 H (98-107) mmol/L BUN 85 H (9-20) mg/dL Creatinine 3.86 H (0.66-1.25) mg/dL Glucose 267 H (74-99) mg/dL POC Glucose (mg/dL) 268 H (75-99) mg/dL Calcium 7.6 L (8.4-10.2) mg/dL Phosphorus 4.6 H (2.5-4.5) mg/dL AST 62 H (17-59) U/L Alkaline Phosphatase 297 H (38-126) U/L Total Protein 4.5 L (6.3-8.2) g/dL Albumin 2.2 L (3.5-5.0) g/dL Crossmatch Assessment and Plan (1) GIB (gastrointestinal bleeding) Narrative/Plan: Status post EGD PEG tube insertion removal of one biliary stent, second biliary stent in place, no evidence of peptic ulcer disease etiology of rectal bleeding could be colonic in nature possible distal small bowel source. Post-peg insertion bleeding around site suspect blood vessel in nature. Surgicel presently in place with marked improvement over the last 24 hours. Current Visit: Yes Status: Acute Code(s): K92.2 - GASTROINTESTINAL HEMORRHAGE, UNSPECIFIED SNOMED Code(s): 80960291 (2) Macrocytic anemia Current Visit: Yes Status: Acute Priority: Medium Code(s): D53.9 - NUTRITIONAL ANEMIA, UNSPECIFIED SNOMED Code(s): 84860581 (3) MUMTAZ (acute kidney injury) Current Visit: Yes Status: Acute Code(s): N17.9 - ACUTE KIDNEY FAILURE, UNSPECIFIED SNOMED Code(s): 43122575 (4) Acute blood loss anemia Current Visit: Yes Status: Acute Code(s): D62 - ACUTE POSTHEMORRHAGIC ANEMIA SNOMED Code(s): 998909508 (5) Oropharyngeal dysphagia Current Visit: Yes Status: Acute Code(s): R13.12 - DYSPHAGIA, OROPHARYNGEAL PHASE SNOMED Code(s): 41161214 (6) Pancreatitis Current Visit: No Status: Acute Code(s): K85.9 - ACUTE PANCREATITIS, UNSPECIFIED * DO NOT USE * SNOMED Code(s): 78439371 Plan: 1. Continue to hold feeds and meds through PEG. Continue with local PEG site care. CBC monitoring. We'll continue to follow. Sessile and plan a care discussed with Dr. Bean
[2018-07-13] MEDS: CALCIUM GLUCONATE 1 GM in SODIUM CHLORIDE 0.9% 100 ML IVPB SCH ×2 (10:55→20:55)
--- NOTE | 2018-07-13 11:04 | XR ---
EXAMINATION TYPE: XR chest 1V portable DATE OF EXAM: 07/13/2018 COMPARISON: 07/13/2018 HISTORY: Respiratory distress TECHNIQUE: Single frontal view of the chest is obtained. FINDINGS: There is reduced pleural effusion on the right. Persistent left-sided consolidation and pl eural effusion. Interstitium is improved. Left-sided central line is stable. 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 Previous trauma left humerus and left AC joint with separation suspected. N o pneumothorax. Arthropathy of the shoulders. IMPRESSION: 1. Improving pleural effusion on the right with reducing suspected venous congestion. 2. Stable left-sided consolidation and pleural effusion.
[2018-07-13 11:49] LABS: Glucose,Whole Blood 220 mg/dL (75-99)
[2018-07-13] MEDS: 1: MVI, ADULT NO.4 WITH VIT K 10 ML, TRACE (CONC-1ML/DOSE) 1 ML in AMINO ACID 5%-D15W+LY IV SCH ×3 (12:15)
[2018-07-13] MEDS: FAT EMULSION 20% 250 ML IV SCH (12:18)
--- NOTE | 2018-07-13 14:32 | P.PN ---
Subjective Progress Note Date: 07/13/18 This is a 68-year-old male patient who was in the intensive care unit for septic shock related to a staphylococcal pneumonia, urinary tract infection, metabolic acidosis, acute kidney injury. The patient has also previous history of alcoholism, previous history of pancreatitis, previous history of ERCP with insertion of a bile duct stent. The patient is known to us. The patient got treated in the intensive care unit for acute hypoxic respiratory failure and the patient required intubation mechanical ventilation for a staphylococcal pneumonia as cultured in his sputum and the staph was sensitive to assess 11, MSSA. The patient was intubated on 06/30/2018 and the patient was successfully extubated on 07/03/2018. The patient subsequently required BiPAP for breast are supported the patient developed some worsening in CHF/bilateral pleural effusion and edema. The patient was also placed on Lasix. Noted post exhibition the patient also developed dysphagia and some vocal cords edema resulting into restaurant assess and hoarseness and difficulty in speech. ENT evaluation was done. The ENT evaluation done by Dr. Street showed bilateral vocal cords hemorrhage and laryngitis. Vocal cord movement was not good and was anticipated in the vocal cord function was gradually improve and the patient was given Mycelex tortious. Regarding his dysphagia, the patient was noted to have limi torri pharyngeal movement, there was a concern towards possibility of a bulbar palsy and for that reason it was recommended for this patient to have an MRI. For now he is unable to swallow and the patient is still nothing by mouth. GI consultation has been obtained due to difficulty in swallowing and the patient is being considered for a PEG tube insertion. As far as his metabolic acidosis, this improved and the patient's hypotension also improved and resolved. The acute kidney injury was improving and the creatinine was on the decline. He did develop hypernatremia related to free water deficit and the patient was receiving IV fluids. This morning, the patient was requested to be transferred back to the intensive care unit as the patient was found to be more lethargic and obtunded. CAT scan of the brain was done on route to the ICU and it showed age-related atrophy and chronic small vessel ischemia without any acute intracranial process. The white cell count is slightly higher at 21.0. The patient is afebrile for now. Platelet count started to 62 and hemoglobin stable at 9.3.The chest x-ray from yesterday showed bilateral lower lobe pneumonia and apparently there was some slight improvement in the bilateral pulmonary infiltrates compared to previous films. I noted a blood gases from yesterday showed a pH of 7.29 with a pCO2 of 51 and pO2 of 115. The echocardiogram showed an ejection fraction of 50-55%, moderate MR, moderate pulmonary hypertension with a PA pressure of 44, rest of the cardiac structures were all within normal limits. Currently the patient is currently on IV Kefzol 2 g on a daily basis. The patient is receiving an S4 chronic anemia. He is also on Lasix 60 mg IV every 12 hours and don't of the right treatments around the clock and IV Solu Medrol 40 mg every 6 hours. He is also on D5 water at the rate of 75 mL an hour. On today's evaluation of 07/10/2018, the patient is much more awake and alert compared to yesterday. The patient was given IV fluids throughout the night and the patient responded nicely of the sodium level dropped down to 145. The rest of the electrolytes are essentially within normal limits with a potassium level of 3.4 with a chloride level of 110. Serum bicarbonate 29. The creatinine is still abnormal with a creatinine level of 4.3 with a BUN of 73. Overnight, the patient was given a dose of Lasix despite him being intravascular depleted and having a very low CVP. This morning the CVP still low. I started on IV fluids again and currently is on D5 half-normal saline at the rate of 75 mL's an hour. Urine output is in order of 30-40 mL's an hour. He is on oxygen at 4 L per minute nasal cannula. He declined using the BiPAP overnight. His chest x-ray from today increasing perihilar and basilar infiltrate as well as pleural effusion. This could be CHF although an aspiration pneumonia cannot be com pletely excluded. Note that the patient has been nothing by mouth for the past 1 week at least due to difficulty in swallowing. This evolved following his intubation mechanical ventilation. Note that he has been diagnosed having an MSSA pneumonia. I started him back on antibiotics and currently is on IV Zosyn and he is afebrile. White cell count is elevated at 21.2. Hemoglobin dropped down to 5.5 this morning and this was attributed to a large bloody bowel movement that occurred earlier this morning. I was told that the patient had a bright red blood per rectum and large amounts and this obviously contributed to his massive drop in hemoglobin which is down to 5.5. His platelet count is at 187. Coagulation profile from admission was within normal limits. on 07/11/2018, the patient is awake and alert and following commands and answering questions. The patient remains nothing by mouth. Unable to swallow. He was started on TPN for nutritional support. He did have another bout of bloody bowel movement that was medium in size and blood-tinged and for that reason the patient is being considered for school today where the patient is going to have EGD and colonoscopy and possibly a PEG tube insertion. The patient's hemoglobin today is at 8.0. Note that he had already received a total of 2 units of packed RBCs. No nausea. No vomiting. No abdominal pain. No shortness of breath. He is on 3 L of oxygen by nasal cannula. His chest x-ray showing bilateral lower lobe consolidation, possibly related to underlying pneumonia. I'm going to order a CAT scan of the chest without contrast to characterize abnormalities. Meanwhile, the patient is producing urine output. Renal function is still impaired although slowly improving.the patient's serum creatinine is at 4.3 and the sodium level is at 146. White cell count is at 22.1. No focal neurological deficits. He is moving all 4 extremities without any limitation. On 07/12/2018 I'm seeing this patient for a follow-up. The patient is awake and alert. A bit short of breath and has a congested cough. Unable to swallowing it and the patient has a PEG tube inserted for nutritional purposes. He developed some bleeding from the insertion site and we were able to control this with pressures application and Surgicel application. Currently the tube is in place and there is no bleeding around it. Noted the patient drop in hemoglobin down to 5.7 because of persistent bleeding. He received 2 units of packed RBC and hemoglobin is up to 8.9. The patient is currently receiving TPN for nutritional support. Chest x-ray shows bilateral pleural effusions right more than left. A bedside thoracentesis was done and I drained approximately 1 L of pleural fluid from the right lung. Chest x-ray postthoracentesis showed improvement in the right-sided pleural effusion. There was still a stable left- sided pleural effusion and a component of more vessel congestion. The patient remains on IV Zosyn. The renal function continues to improve in the creatinine is down to a 0.86. The rest of the blood work carotids are all within normal limits. He is awake. He is alert. Is following questions appropriately. His voice is hoarse. He is weak. Has difficulty with mobility. His white cell count is gradually improving is down to 17.8. No other significant events otherwise for now. He is currently off the BiPAP. No further episodes of lower GI bleeding. Objective - Vital Signs Vital signs: Vital Signs Temp 98.2 F 07/13/18 12:00 Pulse 93 07/13/18 13:00 Resp 19 07/13/18 13:00 BP 144/67 07/13/18 13:00 Pulse Ox 97 07/13/18 13:00 Intake & Output 07/12/18 07/13/18 07/13/18 18:59 06:59 18:59 Intake Total 1493 3062 782 Output Total 605 520 485 Balance 888 2542 297 Weight 66 kg 66 kg Intake: IV 711 356 302 Amino Acid 5%-D15w+Lytes* 80 E* 1,000 ml @ 80 mls/hr IV .BY DURATION [facility] Rx#: [id number] CVP 36 36 21 Calcium Gluconate 1 gm In 100 100 100 Sodium Chloride 0.9% 100 ml @ 100 mls/hr IVPB BID [facility] Rx#:[id number] Dextrose 5%-0.45% NaCl 1, 155 120 30 000 ml @ 10 mls/hr IV . Q24H [facility] Rx#:[id number] Fat Emulsion 20% 250 ml @ 21 21 mls/hr IV Q24H [facility] Rx #:[id number] Mvi, Adult No.4 with Vit 320 K 10 ml Trace (Conc-1Ml/ Dose) 1 ml In Amino Acid 5%-D15w+Lytes*E* 1,000 ml @ 30 mls/hr IV .Q24H [facility] Rx#:[id number] Piperacillin-Tazobactam 3 100 100 50 .375 gm In Sodium Chloride 0.9% 100 ml @ 25 mls/hr IVPB Q12HR [facility] Rx #:[id number] Intake, IV Titration 782 2086 480 Amount Amino Acid 5%-D15w+Lytes* 240 E* 1,000 ml @ 80 mls/hr IV .BY DURATION [facility] Rx#: [id number] Amino Acid 5%-D15w+Lytes* 240 1960 480 E* 1,000 ml @ 80 mls/hr IV .BY DURATION [facility] Rx#: [id number] Desmopressin Acetate 19 55 mcg In Sodium Chloride 0. 9% 50 ml @ 200 mls/hr IVPB ONCE ONE Rx#: [id number] Fat Emulsion 20% 250 ml @ 147 126 21 mls/hr IV Q24H [facility] Rx #:[id number] Potassium Chloride 20 meq 100 In Water For Injection 1 100ml.bag @ 50 mls/hr IVPB ONCE ONE Rx#: [id number] Blood Product 620 Rc As-1 Unit 310 [id number] Rc As-1 Unit 310 [id number] Output: Urine 605 520 485 Other: Voiding Method Indwelling Catheter Indwelling Catheter # Voids 0 ABP, PAP, CO, CI - Last Documented Arterial Blood Pressure 158/56 - Exam GENERAL EXAM: Lethargic, obtunded 68-year-old white male on oxygen at 4 L per nasal cannula HEAD: Normocephalic/atraumatic. EYES: Normal reaction of pupils, equal size. Conjunctiva pink, sclera white. NOSE: Clear with pink turbinates. THROAT: No erythema or exudates. NECK: No masses, no JVD, no thyroid enlargement, no adenopathy. CHEST: No chest wall deformity. Symmetrical expansion. LUNGS: Breath sounds bilaterally , Patient is quite diminished in lung bases bilaterally along with some dullness to percussion. The breath sounds improved on the right following the thoracentesis. CVS: Regular rate and rhythm, normal S1 and S2, no gallops, no murmurs, no rubs ABDOMEN: Soft, nontender. No hepatosplenomegaly, normal bowel sounds, no guarding or rigidity. EXTREMITIES: No clubbing, no edema, no cyanosis, 2+ pulses and upper and lower extremities. MUSCULOSKELETAL: Muscle strength and tone normal. SPINE: No scoliosis or deformity SKIN: No rashes CENTRAL NERVOUS SYSTEM: No focal deficits, tone is normal in all 4 extremities. Diminished level of consciousness, withdraws to painful stimulation, occasional response to verbal stimulation. PSYCHIATRIC: Able to obtain a psychiatric evaluation due to the above-mentioned condition. - Labs CBC & Chem 7: 07/13/18 04:29 07/13/18 04:29 Labs: Abnormal Lab Results - Last 24 Hours (Table) 07/10/18 07/12/18 07/12/18 Range/Units 09:38 18:20 18:21 WBC 18.2 H (3.8-10.6) k/uL RBC 1.73 L (4.30-5.90) m/uL Hgb 5.7 L* D (13.0-17.5) gm/dL Hct 17.6 L* (39.0-53.0) % MCV 102.1 H (80.0-100.0) fL RDW 22.4 H (11.5-15.5) % Plt Count 136 L (150-450) k/uL Neutrophils # (1.3-7.7) k/uL Lymphocytes # (1.0-4.8) k/uL Chloride (98-107) mmol/L BUN (9-20) mg/dL Creatinine (0.66-1.25) mg/dL Glucose (74-99) mg/dL POC Glucose (mg/dL) 228 H (75-99) mg/dL Calcium (8.4-10.2) mg/dL Phosphorus (2.5-4.5) mg/dL AST (17-59) U/L Alkaline Phosphatase (38-126) U/L Total Protein (6.3-8.2) g/dL Albumin (3.5-5.0) g/dL Crossmatch See Detail 07/12/18 07/13/18 07/13/18 Range/Units 23:37 04:29 04:29 WBC 17.8 H (3.8-10.6) k/uL RBC 2.82 L (4.30-5.90) m/uL Hgb 8.9 L D (13.0-17.5) gm/dL Hct 26.8 L (39.0-53.0) % MCV (80.0-100.0) fL RDW 19.6 H (11.5-15.5) % Plt Count 120 L (150-450) k/uL Neutrophils # 16.9 H (1.3-7.7) k/uL Lymphocytes # 0.4 L (1.0-4.8) k/uL Chloride 112 H (98-107) mmol/L BUN 85 H (9-20) mg/dL Creatinine 3.86 H (0.66-1.25) mg/dL Glucose 267 H (74-99) mg/dL POC Glucose (mg/dL) 317 H (75-99) mg/dL Calcium 7.6 L (8.4-10.2) mg/dL Phosphorus 4.6 H (2.5-4.5) mg/dL AST 62 H (17-59) U/L Alkaline Phosphatase 297 H (38-126) U/L Total Protein 4.5 L (6.3-8.2) g/dL Albumin 2.2 L (3.5-5.0) g/dL Crossmatch 07/13/18 07/13/18 Range/Units 06:50 11:48 WBC (3.8-10.6) k/uL RBC (4.30-5.90) m/uL Hgb (13.0-17.5) gm/dL Hct (39.0-53.0) % MCV (80.0-100.0) fL RDW (11.5-15.5) % Plt Count (150-450) k/uL Neutrophils # (1.3-7.7) k/uL Lymphocytes # (1.0-4.8) k/uL Chloride (98-107) mmol/L BUN (9-20) mg/dL Creatinine (0.66-1.25) mg/dL Glucose (74-99) mg/dL POC Glucose (mg/dL) 268 H 220 H (75-99) mg/dL Calcium (8.4-10.2) mg/dL Phosphorus (2.5-4.5) mg/dL AST (17-59) U/L Alkaline Phosphatase (38-126) U/L Total Protein (6.3-8.2) g/dL Albumin (3.5-5.0) g/dL Crossmatch Assessment and Plan Plan: #1. Acute hypoxemic respiratory failure requiring intubation and mechanical ventilation for staph pneumonia, and the sputum culture showed staph was sensitive to oxacillin/MSSA and the patient was being treated with IV Solu.. Patient was intubated on June 30, and successfully extubated on July 03, and the patient had bilateral lower lobe pulmonary infiltrate was improving on yesterday's chest x-ray. The patient got transferred to the ICU today because of diminished level of consciousness and worsening in the mentation and respirat ory status. On route to the ICU, the patient underwent a CAT scan of the head that showed age-related atrophy without any acute abnormalities. On 07/10/2018, the patient remains on oxygen at 4 L per minute nasal cannula. Chest x-ray showing worsening in lower lobe consolidation and effusions. S uspect pneumonia with possibly development of a pleural effusion. Despite all this, the patient is not having any worsening shortness of breath is off the BiPAP and is currently on 2 by nasal cannula. Consider aspiration pneumonia. Consider hospital-acquired pneumonia. on 07/11/2018, the patient is going to have a CAT scan of the chest knowing that the patient has persistent opacification of the lung bases and I suspect pleural effusion with possibility of an underlying aspiration pneumonia. For that reason, a CAT scan of the chest without contrast will be obtained. On 07/12/2018, the patient underwent a right-sided thoracentesis and a total of 1 L of fluid was aspirated. No complications. The right lung is well expanded. The patient is still on 40s of oxygen nasal cannula. White cell count is gradually improving as the patient continues to be on IV Zosyn. #2. Dysphagia related to vocal cord edema, and redness, ENT evaluation was obtained, please refer to their note. The patient has not had anything to eat for the past 8-10 days. the patient is currently on TPN for nutritional support. The patient also has a PEG tube insertion and the patient will be started on PEG tube feeding with the next 24 hours. The feeding was delayed as the patient was having bleeding around the site of the tube. #3. Hypernatremia, improved and the patient's sodium level is normalized. Currently the patient on TPN for nutritional support. #4. Possible tract infection, cultures are negative #5. Blood loss anemia secondary to GI bleed. The PEG tube site was also bleeding and the bleeding has been controlled for now. #6. Acute on top of chronic kidney injury, the acute component is improving and the creatinine gradually is declining #7. Gastrointestinal bleeding, suspect lower, and the EGD at the time of the PEG tube insertion shows no evidence of any upper GI source of bleeding. #8. History of hypothyroidism #9. Full CODE STATUS #10. Thrombocytopenia, improving #11 abnormal LFTs, likely secondary to hypotension/shock liver, improved Plan: The patient is stable. Thoracentesis is of the right lung was done. The procedure was successful. I may consider doing the left side tomorrow. The patient's FiO2 will be gradually weaned down. Continued IV Zosyn. Monitor the white count. Monitor renal function. Watch for any signs of GI bleed. May start enteral feeding as of tomorrow. He did TPN for another 24 hours. We'll continue to follow make further recommendations based on his progress. He is weak. He needs aggressive physical therapy.
[2018-07-13] MEDS: ERGOCALCIFEROL 50,000 UNIT CAP PO SCH (15:11)
--- NOTE | 2018-07-13 15:14 | PCN ---
PROCEDURE NOTE PREOPERATIVE DIAGNOSIS: Bilateral pleural effusion. POSTOPERATIVE DIAGNOSIS: Bilateral pleural effusion. A time-out was completed verifying correct patient, procedure, site, positioning , and implant (s) or special equipment if applicable. Ultrasound guidance was not used and appropriate fluid pocket was identified and marked. Patient was positioned, prepped and draped in usual sterile fashion. Lidocaine was used to anesthetize the area. A Thoracentesis catheter was introduced into the pleural space and fluid was removed. Blood loss was none. A chest x-ray was ordered to evaluate for pneumothorax. Total Fluid Removed 1 L Color of Fluid Dark, turbid, yellowish in color. Patient tolerated the procedure well. No complication, no bleeding, no pneumothorax based on the followup chest x-ray. MMODL / IJN: [id number] /
[2018-07-13 16:44] LABS: Glucose,Whole Blood 217 mg/dL (75-99)
--- NOTE | 2018-07-13 18:58 | PN ---
PROGRESS NOTE Patient is seen for followup for acute kidney injury and chronic kidney disease. He has had a PEG tube placed. He is currently awake, comfortable. He denies any significant complaints. Patient is maintained on TPN and will be switched over to tube feedings. He had bleeding from his PEG tube site yesterday. Currently there is no bleeding noted. On examination, blood pressure this morning was 150/78, heart rate of 90 per minute. He is afebrile. EXAMINATION OF THE HEART: S1 and S2. EXAMINATION OF LUNGS: Decreased breath sounds at the bases. ABDOMEN: Soft, non-tender. Examination of lower extremities shows no significant edema. [employer] exam is grossly intact. Patient moving all 4 extremities. Labs show hemoglobin 8.9, sodium 143, potassium 4.4, BUN 85, serum creatinine 3.86, calcium 7.6, phosphorus 4.6. ASSESSMENT: 1. Acute kidney injury, acute tubular necrosis, currently continuing to improve. Patient is maintained on IV fluids. 2. 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 All serologies are negative except for complements, which are low. Considering a kidney biopsy down the road. However, there is no acute indication for it right now. 3. Vocal cord dysfunction with dysphagia, status post PEG tube placement. 4. Staphylococcus aureus pneumonia, status post acute hypoxic respiratory failure, currently off the vent. 5. Anemia of chronic disease, maintained on Aranesp. 6. Gastrointestinal bleed. No further bleeding noted at this time. 7. 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 8. Hypernatremia, currently resolved. PLAN: Continue fluids. Repeat labs in a.m. Continue to avoid nephrotoxic agents. MMODL / IJN: [id number] /
[2018-07-13 20:35] LABS: Glucose,Whole Blood 225 mg/dL (75-99)
[2018-07-13] MEDS: INSULIN DETEMIR (LEVEMIR) 100 UNIT/ML SYR SQ SCH (21:07)
[2018-07-13 22:12] LABS: Appearance,BF Hazy; Color,BF Yellow; Nucleated Cells, Body Fluid 8 /uL; RBC, Body Fluid 113 /uL
--- NOTE | 2018-07-13 23:23 | PN ---
PROGRESS NOTE DATE OF SERVICE: July 13, 2018. PRESENTING COMPLAINT: Tired. INTERVAL HISTORY: The patient is in the ICU with multiple problems including pneumonia, UTI and metabolic acidosis, acute kidney injury, history of alcoholism. The patient had been on the ventilator, was extubated on July 03, 2018, had required BiPAP, moved out of ICU and then readmitted after having a bloody bowel movement, required 2 units of blood. The patient remains on TPN lipids, had a brown bowel movement yesterday. The patient is now on 2 L nasal cannula. Telemetry shows sinus rhythm. The patient has got a PEG tube, still oozing around the PEG tube site and the patient has a pressure dressing and a binder. The patient also had a thoracentesis carried out today. 1.2 L of fluid was removed. REVIEW OF SYSTEMS: Done for constitutional, cardiovascular, GI, pulmonary and relevant findings as above. CURRENT MEDICATIONS: Reviewed and include TPN, lipids, IV Zosyn. PHYSICAL EXAMINATION: VITAL SIGNS: Temperature 98.2, pulse 87, respiration 17, blood pressure 139/67, pulse ox 97% on 2 L. GENERAL APPEARANCE: Lying in bed, awake, tired-appearing. Eyes: Pupils equal. Conjunctivae pale. HEENT: External appearance of nose and ears normal. Oral cavity dry. NECK: JVD unable to assess. Mass not palpable. RESPIRATORY: Effort increased. LUNGS: Decreased breath sounds. CARDIOVASCULAR: 1st and 2nd sounds normal. No edema. ABDOMEN: Soft, nontender. Liver and spleen not palpable. PSYCHIATRY: Awake, answering questions though tired-appearing. INVESTIGATIONS: White count 17.8, hemoglobin 8.9, potassium 4.4, BUN 85, creatinine 3.86. ASSESSMENT: 1. Pneumonia, possibly aspiration. 2. Acute metabolic encephalopathy with some improvement. 3. Acute hypoxic respiratory failure status post ventilator, currently down to nasal cannula at 2 L. 4. Pneumonia with Staph aureus. 5. Dysphagia due to local cord edema. 6. Severe esophagitis. 7. Acute hypernatremia from free water deficit. 8. Metabolic acidosis. 9. Hypotensive shock from free water deficit and septic shock. 10.Acute kidney injury likely from ATN, slow to respond. 11.Acute gastrointestinal bleed requiring 2 units of blood. 12.Acute blood loss anemia both from GI bleed and also bleeding around the PEG tube site. 13.Hypothyroidism. 14.Thrombocytopenia likely from sepsis. 15.PEG tube with bleeding around the PEG tube site. The patient did receive DDAVP yesterday. 16.Right pleural effusion status post thoracentesis on July 13, 2018. 17.CODE STATUS: FULL CODE. PLAN: The patient was further given blood yesterday after he dropped hemoglobin. Antibiotics are to continue. The patient is status post thoracentesis. Prognosis remains guarded. Continue with other consultants. Follow. MMODL / IJN: [id number] /
[2018-07-14 00:09] LABS: Glucose,Whole Blood 242 mg/dL (75-99)
[2018-07-14] MEDS: DEXTROSE 5%-0.45% NACL 1,000 ML IV SCH ×2 (00:12→17:24)
[2018-07-14] MEDS: INSULIN ASPART (NovoLOG) 100 UNIT/ML VIAL SQ SCH ×7 (00:12→23:48)
[2018-07-14] MEDS: methylPREDNISolone SOD SUCCI 40 MG/ML 1 ML VIAL IV SCH ×4 (00:12→23:48)
[2018-07-14] MEDS: 1: MVI, ADULT NO.4 WITH VIT K 10 ML, TRACE (CONC-1ML/DOSE) 1 ML in AMINO ACID 5%-D15W+LY IV SCH ×6 (00:13→12:04)
[2018-07-14] MEDS: IPRATROPIUM-ALBUTEROL 3 ML NEB INHALATION SCH ×6 (03:22→23:12)
[2018-07-14 04:11] LABS: Glucose,Whole Blood 222 mg/dL (75-99)
[2018-07-14 04:17] LABS: Anisocytosis Moderate; Basophils % (A) 0 %; Eosinophils # (A) 0.2 k/uL (0-0.7); Eosinophils % (A) 1 %; HCT 24.1 % (39.0-53.0); HGB 7.7 gm/dL (13.0-17.5); Hypochromasia Moderate; Lymphocytes # (A) 0.3 k/uL (1.0-4.8); Lymphocytes % (A) 3 %; MCH 31.2 pg (25.0-35.0); MCHC 32.1 g/dL (31.0-37.0); MCV 97.3 fL (80.0-100.0); Macrocytosis Slight; Mean Platelet Volume 9.8; Monocytes # (A) 0.4 k/uL (0-1.0); Monocytes % (A) 3 %; Neutrophils # (A) 12.7 k/uL (1.3-7.7); Neutrophils % (A) 93 %; Platelet Count 111 k/uL (150-450); Poikilocytosis Slight; RBC 2.47 m/uL (4.30-5.90); RDW 20.3 % (11.5-15.5); WBC 13.7 k/uL (3.8-10.6)
[2018-07-14 04:27] LABS: Albumin 2.3 g/dL (3.5-5.0); Calcium 7.6 mg/dL (8.4-10.2); Magnesium 1.9 mg/dL (1.6-2.3); Phosphorus 5.1 mg/dL (2.5-4.5); Potassium 4.8 mmol/L (3.5-5.1); Total Bilirubin 0.9 mg/dL (0.2-1.3); Total Protein 4.5 g/dL (6.3-8.2)
--- NOTE | 2018-07-14 06:44 | XR ---
EXAMINATION TYPE: XR chest 1V portable DATE OF EXAM: 07/14/2018 HISTORY: sob. REFERENCE: Previous study dated 07/13/2018. FINDINGS: The left internal jugular catheter remains in place. Its tip is in the superior vena cava. There is worsening bilateral airspace disease. There are small, bilateral effusions. The heart is not enlarged. IMPRESSION: 1. WORSENING BIBASILAR AIRSPACE DISEASE. 2. SMALL, BILATERAL EFFUSIONS.
[2018-07-14 08:52] LABS: Glucose,Whole Blood 228 mg/dL (75-99)
[2018-07-14] MEDS: PANTOPRAZOLE 40 MG/10 ML VIAL IVP SCH ×2 (08:55→20:28)
[2018-07-14] MEDS: LEVOTHYROXINE IVP 100 MCG/5 ML VIAL IV SCH (09:01)
[2018-07-14] MEDS: PIPERACILLIN-TAZOBACTAM 3.375 GM in SODIUM CHLORIDE 0.9% 100 ML IVPB SCH ×2 (09:04→20:40)
[2018-07-14] MEDS: CALCIUM GLUCONATE 1 GM in SODIUM CHLORIDE 0.9% 100 ML IVPB SCH ×2 (10:35→20:37)
[2018-07-14 12:13] LABS: Glucose,Whole Blood 202 mg/dL (75-99)
[2018-07-14] MEDS: FAT EMULSION 20% 250 ML IV SCH (14:12)
--- NOTE | 2018-07-14 15:02 | P.PN ---
Subjective Progress Note Date: 07/14/18 This is a 68-year-old male patient who was in the intensive care unit for septic shock related to a staphylococcal pneumonia, urinary tract infection, metabolic acidosis, acute kidney injury. The patient has also previous history of alcoholism, previous history of pancreatitis, previous history of ERCP with insertion of a bile duct stent. The patient is known to us. The patient got treated in the intensive care unit for acute hypoxic respiratory failure and the patient required intubation mechanical ventilation for a staphylococcal pneumonia as cultured in his sputum and the staph was sensitive to assess 11, MSSA. The patient was intubated on 06/30/2018 and the patient was successfully extubated on 07/03/2018. The patient subsequently required BiPAP for breast are supported the patient developed some worsening in CHF/bilateral pleural effusion and edema. The patient was also placed on Lasix. Noted post exhibition the patient also developed dysphagia and some vocal cords edema resulting into restaurant assess and hoarseness and difficulty in speech. ENT evaluation was done. The ENT evaluation done by Dr. Street showed bilateral vocal cords hemorrhage and laryngitis. Vocal cord movement was not good and was anticipated in the vocal cord function was gradually improve and the patient was given Mycelex tortious. Regarding his dysphagia, the patient was noted to have limi torri pharyngeal movement, there was a concern towards possibility of a bulbar palsy and for that reason it was recommended for this patient to have an MRI. For now he is unable to swallow and the patient is still nothing by mouth. GI consultation has been obtained due to difficulty in swallowing and the patient is being considered for a PEG tube insertion. As far as his metabolic acidosis, this improved and the patient's hypotension also improved and resolved. The acute kidney injury was improving and the creatinine was on the decline. He did develop hypernatremia related to free water deficit and the patient was receiving IV fluids. This morning, the patient was requested to be transferred back to the intensive care unit as the patient was found to be more lethargic and obtunded. CAT scan of the brain was done on route to the ICU and it showed age-related atrophy and chronic small vessel ischemia without any acute intracranial process. The white cell count is slightly higher at 21.0. The patient is afebrile for now. Platelet count started to 62 and hemoglobin stable at 9.3.The chest x-ray from yesterday showed bilateral lower lobe pneumonia and apparently there was some slight improvement in the bilateral pulmonary infiltrates compared to previous films. I noted a blood gases from yesterday showed a pH of 7.29 with a pCO2 of 51 and pO2 of 115. The echocardiogram showed an ejection fraction of 50-55%, moderate MR, moderate pulmonary hypertension with a PA pressure of 44, rest of the cardiac structures were all within normal limits. Currently the patient is currently on IV Kefzol 2 g on a daily basis. The patient is receiving an S4 chronic anemia. He is also on Lasix 60 mg IV every 12 hours and don't of the right treatments around the clock and IV Solu Medrol 40 mg every 6 hours. He is also on D5 water at the rate of 75 mL an hour. On today's evaluation of 07/10/2018, the patient is much more awake and alert compared to yesterday. The patient was given IV fluids throughout the night and the patient responded nicely of the sodium level dropped down to 145. The rest of the electrolytes are essentially within normal limits with a potassium level of 3.4 with a chloride level of 110. Serum bicarbonate 29. The creatinine is still abnormal with a creatinine level of 4.3 with a BUN of 73. Overnight, the patient was given a dose of Lasix despite him being intravascular depleted and having a very low CVP. This morning the CVP still low. I started on IV fluids again and currently is on D5 half-normal saline at the rate of 75 mL's an hour. Urine output is in order of 30-40 mL's an hour. He is on oxygen at 4 L per minute nasal cannula. He declined using the BiPAP overnight. His chest x-ray from today increasing perihilar and basilar infiltrate as well as pleural effusion. This could be CHF although an aspiration pneumonia cannot be com pletely excluded. Note that the patient has been nothing by mouth for the past 1 week at least due to difficulty in swallowing. This evolved following his intubation mechanical ventilation. Note that he has been diagnosed having an MSSA pneumonia. I started him back on antibiotics and currently is on IV Zosyn and he is afebrile. White cell count is elevated at 21.2. Hemoglobin dropped down to 5.5 this morning and this was attributed to a large bloody bowel movement that occurred earlier this morning. I was told that the patient had a bright red blood per rectum and large amounts and this obviously contributed to his massive drop in hemoglobin which is down to 5.5. His platelet count is at 187. Coagulation profile from admission was within normal limits. on 07/11/2018, the patient is awake and alert and following commands and answering questions. The patient remains nothing by mouth. Unable to swallow. He was started on TPN for nutritional support. He did have another bout of bloody bowel movement that was medium in size and blood-tinged and for that reason the patient is being considered for school today where the patient is going to have EGD and colonoscopy and possibly a PEG tube insertion. The patient's hemoglobin today is at 8.0. Note that he had already received a total of 2 units of packed RBCs. No nausea. No vomiting. No abdominal pain. No shortness of breath. He is on 3 L of oxygen by nasal cannula. His chest x-ray showing bilateral lower lobe consolidation, possibly related to underlying pneumonia. I'm going to order a CAT scan of the chest without contrast to characterize abnormalities. Meanwhile, the patient is producing urine output. Renal function is still impaired although slowly improving.the patient's serum creatinine is at 4.3 and the sodium level is at 146. White cell count is at 22.1. No focal neurological deficits. He is moving all 4 extremities without any limitation. On 07/12/2018 I'm seeing this patient for a follow-up. The patient is awake and alert. A bit short of breath and has a congested cough. Unable to swallowing it and the patient has a PEG tube inserted for nutritional purposes. He developed some bleeding from the insertion site and we were able to control this with pressures application and Surgicel application. Currently the tube is in place and there is no bleeding around it. Noted the patient drop in hemoglobin down to 5.7 because of persistent bleeding. He received 2 units of packed RBC and hemoglobin is up to 8.9. The patient is currently receiving TPN for nutritional support. Chest x-ray shows bilateral pleural effusions right more than left. A bedside thoracentesis was done and I drained approximately 1 L of pleural fluid from the right lung. Chest x-ray postthoracentesis showed improvement in the right-sided pleural effusion. There was still a stable left- sided pleural effusion and a component of more vessel congestion. The patient remains on IV Zosyn. The renal function continues to improve in the creatinine is down to a 3.86. The rest of the blood work carotids are all within normal limits. He is awake. He is alert. Is following questions appropriately. His voice is hoarse. He is weak. Has difficulty with mobility. His white cell count is gradually improving is down to 17.8. No other significant events otherwise for now. He is currently off the BiPAP. No further episodes of lower GI bleeding. On 07/13/2018 I'm seeing this patient for a follow-up. Awake and alert. No major respiratory distress. The patient underwent a right-sided thoracentesis with a major difficulties. The patient is currently down to 10 L of oxygen by nasal cannula. His voice is hoarse and muffled and this is due to underlying vocal cords disease. PEG tube is in place.No bleeding from the PEG tube site and the patient will be started on enteral feeding for nutritional support and the TPN will be discontinued. He remains on IV Zosyn. Kidney function is still abnormal although continued continues to improve slowly and the creatinine is down to 3.8. No fever. No chills. No other significant events overnight. The patient is resting comfortably in bed. The patient is awake and alert. He is weak and he would benefit from physical therapy and rehabilitation. The responded well to 13.7. Objective - Vital Signs Vital signs: Vital Signs Temp 98.9 F 07/14/18 14:00 Pulse 97 07/14/18 14:00 Resp 17 07/14/18 14:00 BP 142/70 07/14/18 14:00 Pulse Ox 95 07/14/18 14:00 Intake & Output 07/13/18 07/14/18 07/14/18 18:59 06:59 18:59 Intake Total 2417 1328 924 Output Total 9346 615 565 Balance 352 713 359 Weight 66 kg 67 kg Intake: IV 926 1328 764 Amino Acid 5%-D15w+Lytes* 560 880 480 E* 1,000 ml @ 80 mls/hr IV .BY DURATION [facility] Rx#: [id number] CVP 39 33 24 Calcium Gluconate 1 gm In 100 100 100 Sodium Chloride 0.9% 100 ml @ 100 mls/hr IVPB BID [facility] Rx#:[id number] Dextrose 5%-0.45% NaCl 1, 30 110 60 000 ml @ 10 mls/hr IV . Q24H [facility] Rx#:[id number] Fat Emulsion 20% 250 ml @ 147 105 21 mls/hr IV Q24H [facility] Rx #:[id number] Piperacillin-Tazobactam 3 50 100 100 .375 gm In Sodium Chloride 0.9% 100 ml @ 25 mls/hr IVPB Q12HR [facility] Rx #:[id number] Intake, IV Titration 1491 160 Amount Amino Acid 5%-D15w+Lytes* 480 E* 1,000 ml @ 80 mls/hr IV .BY DURATION [facility] Rx#: [id number] Mvi, Adult No.4 with Vit 1011 K 10 ml Trace (Conc-1Ml/ Dose) 1 ml In Amino Acid 5%-D15w+Lytes*E* 1,000 ml @ 80 mls/hr IV .BY DURATION [facility] Rx#: [id number] Potassium Chloride 20 meq 160 Sodium Acetate 20 meq Magnesium Sulfate gm 2 gm Calcium Gluconate 1 gm In Amino Acid 5%-D15w 1, 000 ml @ 80 mls/hr IV .BY DURATION [facility] Rx#: [id number] Output: Urine 865 615 565 Other 1200 Other: Voiding Method Indwelling Catheter Indwelling Catheter Indwelling Catheter # Voids 0 ABP, PAP, CO, CI - Last Documented Arterial Blood Pressure 158/56 - Exam GENERAL EXAM: The patient is awake and alert 68-year-old white male on oxygen at 2 L per nasal cannula HEAD: Normocephalic/atraumatic. EYES: Normal reaction of pupils, equal size. Conjunctiva pink, sclera white. NOSE: Clear with pink turbinates. THROAT: No erythema or exudates. NECK: No masses, no JVD, no thyroid enlargement, no adenopathy. CHEST: No chest wall deformity. Symmetrical expansion. LUNGS: Breath sounds bilaterally , Patient is quite diminished in lung bases bilaterally along with some dullness to percussion. The breath sounds improved on the right following the thoracentesis. CVS: Regular rate and rhythm, normal S1 and S2, no gallops, no murmurs, no rubs ABDOMEN: Soft, nontender. No hepatosplenomegaly, normal bowel sounds, no g uarding or rigidity. EXTREMITIES: No clubbing, no edema, no cyanosis, 2+ pulses and upper and lower extremities. MUSCULOSKELETAL: Muscle strength and tone diminished for now. SPINE: No scoliosis or deformity SKIN: No rashes CENTRAL NERVOUS SYSTEM: Motor weakness in all 4 extremities. For the most part, neurologic exam is nonfocal and the patient has equal and symmetrical facial expression without any asymmetry, equal pupils and equal water function all 4 extremities. PSYCHIATRIC: Able to obtain a psychiatric evaluation due to the above-mentioned condition. - Labs CBC & Chem 7: 07/14/18 04:01 07/14/18 04:01 Labs: Abnormal Lab Results - Last 24 Hours (Table) 07/13/18 07/13/18 07/14/18 Range/Units 16:43 20:33 00:08 WBC (3.8-10.6) k/uL RBC (4.30-5.90) m/uL Hgb (13.0-17.5) gm/dL Hct (39.0-53.0) % RDW (11.5-15.5) % Plt Count (150-450) k/uL Neutrophils # (1.3-7.7) k/uL Lymphocytes # (1.0-4.8) k/uL Chloride (98-107) mmol/L BUN (9-20) mg/dL Creatinine (0.66-1.25) mg/dL Glucose (74-99) mg/dL POC Glucose (mg/dL) 217 H 225 H 242 H (75-99) mg/dL Calcium (8.4-10.2) mg/dL Phosphorus (2.5-4.5) mg/dL Alkaline Phosphatase (38-126) U/L Total Protein (6.3-8.2) g/dL Albumin (3.5-5.0) g/dL 07/14/18 07/14/18 07/14/18 Range/Units 04:01 04:01 04:09 WBC 13.7 H (3.8-10.6) k/uL RBC 2.47 L (4.30-5.90) m/uL Hgb 7.7 L (13.0-17.5) gm/dL Hct 24.1 L (39.0-53.0) % RDW 20.3 H (11.5-15.5) % Plt Count 111 L (150-450) k/uL Neutrophils # 12.7 H (1.3-7.7) k/uL Lymphocytes # 0.3 L (1.0-4.8) k/uL Chloride 112 H (98-107) mmol/L BUN 96 H (9-20) mg/dL Creatinine 3.81 H (0.66-1.25) mg/dL Glucose 222 H (74-99) mg/dL POC Glucose (mg/dL) 222 H (75-99) mg/dL Calcium 7.6 L (8.4-10.2) mg/dL Phosphorus 5.1 H (2.5-4.5) mg/dL Alkaline Phosphatase 232 H (38-126) U/L Total Protein 4.5 L (6.3-8.2) g/dL Albumin 2.3 L (3.5-5.0) g/dL 07/14/18 07/14/18 Range/Units 08:49 12:12 WBC (3.8-10.6) k/uL RBC (4.30-5.90) m/uL Hgb (13.0-17.5) gm/dL Hct (39.0-53.0) % RDW (11.5-15.5) % Plt Count (150-450) k/uL Neutrophils # (1.3-7.7) k/uL Lymphocytes # (1.0-4.8) k/uL Chloride (98-107) mmol/L BUN (9-20) mg/dL Creatinine (0.66-1.25) mg/dL Glucose (74-99) mg/dL POC Glucose (mg/dL) 228 H 202 H (75-99) mg/dL Calcium (8.4-10.2) mg/dL Phosphorus (2.5-4.5) mg/dL Alkaline Phosphatase (38-126) U/L Total Protein (6.3-8.2) g/dL Albumin (3.5-5.0) g/dL Microbiology - Last 24 Hours (Table) 07/13/18 10:30 Gram Stain - Preliminary Pleural Fluid Body Fluid Culture - Preliminary 07/13/18 10:30 Acid Fast Bacilli Culture - Preliminary Lung - Right 07/13/18 10:30 Fungal Culture - Preliminary Pleural Fluid Assessment and Plan Plan: #1. Acute hypoxemic respiratory failure requiring intubation and mechanical ventilation for staph pneumonia, and the sputum culture showed staph was sensitive to oxacillin/MSSA . Subsequently the patient developed bilateral pleural effusion. The patient underwent a right-sided thoracentesis were total of 1 L of fluid was removed from the right lung. The patient remains on IV Zosyn. Chest x-ray shows improvement in the right lower lobe opacity in the patient's oxidation is improved and currently is down to 2 L about 2 by nasal cannula. #2. Dysphagia related to vocal cord edema, and redness, ENT evaluation was obtained, please refer to their note. The patient has not had anything to eat for the past 8-10 days. the patient is currently on TPN for nutritional support. The patient also has a PEG tube insertion and the patient will be started on PE G tube for nutritional support. #3. Hypernatremia, recovered #4. Possible tract infection, cultures are negative #5. Blood loss anemia secondary to GI bleed. The PEG tube site is not bleeding and the patient has not showed any signs of lower GI bleed and the patient's hemoglobin is stable at 7.7 #6. Acute on top of chronic kidney injury, the acute component is improving and the creatinine gradually is declining #7. Gastrointestinal bleeding, suspect lower, and the EGD at the time of the PEG tube insertion shows no evidence of any upper GI source of bleeding. #8. History of hypothyroidism #9. Full CODE STATUS #10. Thrombocytopenia, improving #11 abnormal LFTs, likely secondary to hypotension/shock liver, improved Plan: Physical therapy. For by the patient an incentive spirometer. Continue IV Zosyn and completed a course regarding his MSSA pneumonia. Clinically improved. Oxygen has been weaned down to 2 L of oxygen by nasal cannula. We'll start enteral feeding for nutritional support. We'll stop TPN. We'll continue to follow. We'll keep the patient ICU for another 24 hours.
--- NOTE | 2018-07-14 16:18 | P.PN ---
Subjective Progress Note Date: 07/14/18 Principal diagnosis: Anemia, history of chronic pancreatitis, oropharyngeal dysphagia Patient is seen lying in bed today. No acute events reported. Still receiving TPN. Less oozing of blood from PEG tube site reported. Objective - Vital Signs Vital signs: Vital Signs Temp 98.9 F 07/14/18 14:00 Pulse 97 07/14/18 15:54 Resp 22 07/14/18 15:00 BP 141/66 07/14/18 15:00 Pulse Ox 97 07/14/18 15:00 Intake & Output 07/13/18 07/14/18 07/14/18 18:59 06:59 18:59 Intake Total 2417 1328 1038 Output Total 2065 615 640 Balance 352 713 398 Weight 66 kg 67 kg 67 kg Intake: IV 926 1328 798 Amino Acid 5%-D15w+Lytes* 560 880 480 E* 1,000 ml @ 80 mls/hr IV .BY DURATION [facility] Rx#: [id number] CVP 39 33 27 Calcium Gluconate 1 gm In 100 100 100 Sodium Chloride 0.9% 100 ml @ 100 mls/hr IVPB BID [facility] Rx#:[id number] Dextrose 5%-0.45% NaCl 1, 30 110 70 000 ml @ 10 mls/hr IV . Q24H [facility] Rx#:[id number] Fat Emulsion 20% 250 ml @ 147 105 21 21 mls/hr IV Q24H [facility] Rx #:[id number] Piperacillin-Tazobactam 3 50 100 100 .375 gm In Sodium Chloride 0.9% 100 ml @ 25 mls/hr IVPB Q12HR [facility] Rx #:[id number] Intake, IV Titration 1491 240 Amount Amino Acid 5%-D15w+Lytes* 480 E* 1,000 ml @ 80 mls/hr IV .BY DURATION [facility] Rx#: [id number] Mvi, Adult No.4 with Vit 1011 K 10 ml Trace (Conc-1Ml/ Dose) 1 ml In Amino Acid 5%-D15w+Lytes*E* 1,000 ml @ 80 mls/hr IV .BY DURATION [facility] Rx#: [id number] Potassium Chloride 20 meq 240 Sodium Acetate 20 meq Magnesium Sulfate gm 2 gm Calcium Gluconate 1 gm In Amino Acid 5%-D15w 1, 000 ml @ 80 mls/hr IV .BY DURATION [facility] Rx#: [id number] Output: Urine 865 615 640 Other 1200 Other: Voiding Method Indwelling Catheter Indwelling Catheter Indwelling Catheter # Voids 0 ABP, PAP, CO, CI - Last Documented Arterial Blood Pressure 158/56 - Exam On physical examination, patient appears comfortable in no apparent distress. HEAD: Normocephalic, atraumatic. EYES: No scleral icterus. No conjunctival injection. MOUTH: No lesions, tongue midline. NECK: Trachea midline, no gross abnormalities. CHEST: Coarse respiratory noises in all lung yi. HEART: S1-S2 appreciated. ABDOMEN: Soft, PEG tube is in place with. Bowel sounds are positive. No organomegaly. No guarding or rigidity. EXTREMITIES: No pedal edema. SKIN: No rashes, no jaundice. NEUROLOGIC: Awake and interactive. - Labs CBC & Chem 7: 07/14/18 04:01 07/14/18 04:01 Labs: Abnormal Lab Results - Last 24 Hours (Table) 07/13/18 07/13/18 07/14/18 Range/Units 16:43 20:33 00:08 WBC (3.8-10.6) k/uL RBC (4.30-5.90) m/uL Hgb (13.0-17.5) gm/dL Hct (39.0-53.0) % RDW (11.5-15.5) % Plt Count (150-450) k/uL Neutrophils # (1.3-7.7) k/uL Lymphocytes # (1.0-4.8) k/uL Chloride (98-107) mmol/L BUN (9-20) mg/dL Creatinine (0.66-1.25) mg/dL Glucose (74-99) mg/dL POC Glucose (mg/dL) 217 H 225 H 242 H (75-99) mg/dL Calcium (8.4-10.2) mg/dL Phosphorus (2.5-4.5) mg/dL Alkaline Phosphatase (38-126) U/L Total Protein (6.3-8.2) g/dL Albumin (3.5-5.0) g/dL 07/14/18 07/14/18 07/14/18 Range/Units 04:01 04:01 04:09 WBC 13.7 H (3.8-10.6) k/uL RBC 2.47 L (4.30-5.90) m/uL Hgb 7.7 L (13.0-17.5) gm/dL Hct 24.1 L (39.0-53.0) % RDW 20.3 H (11.5-15.5) % Plt Count 111 L (150-450) k/uL Neutrophils # 12.7 H (1.3-7.7) k/uL Lymphocytes # 0.3 L (1.0-4.8) k/uL Chloride 112 H (98-107) mmol/L BUN 96 H (9-20) mg/dL Creatinine 3.81 H (0.66-1.25) mg/dL Glucose 222 H (74-99) mg/dL POC Glucose (mg/dL) 222 H (75-99) mg/dL Calcium 7.6 L (8.4-10.2) mg/dL Phosphorus 5.1 H (2.5-4.5) mg/dL Alkaline Phosphatase 232 H (38-126) U/L Total Protein 4.5 L (6.3-8.2) g/dL Albumin 2.3 L (3.5-5.0) g/dL 07/14/18 07/14/18 Range/Units 08:49 12:12 WBC (3.8-10.6) k/uL RBC (4.30-5.90) m/uL Hgb (13.0-17.5) gm/dL Hct (39.0-53.0) % RDW (11.5-15.5) % Plt Count (150-450) k/uL Neutrophils # (1.3-7.7) k/uL Lymphocytes # (1.0-4.8) k/uL Chloride (98-107) mmol/L BUN (9-20) mg/dL Creatinine (0.66-1.25) mg/dL Glucose (74-99) mg/dL POC Glucose (mg/dL) 228 H 202 H (75-99) mg/dL Calcium (8.4-10.2) mg/dL Phosphorus (2.5-4.5) mg/dL Alkaline Phosphatase (38-126) U/L Total Protein (6.3-8.2) g/dL Albumin (3.5-5.0) g/dL Microbiology - Last 24 Hours (Table) 07/13/18 10:30 Gram Stain - Preliminary Pleural Fluid Body Fluid Culture - Preliminary 07/13/18 10:30 Acid Fast Bacilli Culture - Preliminary Lung - Right 07/13/18 10:30 Fungal Culture - Preliminary Pleural Fluid Assessment and Plan (1) Macrocytic anemia Narrative/Plan: Patient with findings of macrocytic anemia on laboratory evaluation. No signs or symptoms of GI bleeding. Hemoglobin stable at 7.7 from 8.9 yesterday. Losing of blood from PEG tube site has decreased. Still receiving TPN with plan to start tube feeds today. Current Visit: Yes Status: Acute Priority: Medium Code(s): D53.9 - NUTRITIONAL ANEMIA, UNSPECIFIED SNOMED Code(s): 95563636 (2) Pancreatitis Narrative/Plan: History of chronic pancreatitis. Current Visit: No Status: Acute Code(s): K85.9 - ACUTE PANCREATITIS, UNSPECIFIED * DO NOT USE * SNOMED Code(s): 39687963 (3) Oropharyngeal dysphagia Narrative/Plan: Patient to denies any problem swallowing prior to hospitalization, now failing speech and bedside swallow evaluation, likely secondary to acute illness and recent intubation, however CVA is on the differential and the patient refuses transfer for further neurologic workup. Current Visit: Yes Status: Acute Code(s): R13.12 - DYSPHAGIA, OROPHARYNGEAL PHASE SNOMED Code(s): 18653828 Plan: Supportive care Nothing by mouth PEG tube in place with minimal oozing of blood, we will reapply binder with plan to remove once hemostasis is achieved Okay to start tube feeds Continue to monitor stool output, testing for Clostridium difficile negative Continue to monitor hemoglobin and hematocrit and transfuse as needed Hematology service following the patient, at this point is felt that the patient's anemia is likely multifactorial secondary to nutritional deficiencies, toxic effect of alcohol, iron deficiency etc. Gastroenterology will continue to follow, thank you for allowing us to participate in the care of the patient
[2018-07-14 16:34] LABS: Glucose,Whole Blood 255 mg/dL (75-99)
[2018-07-14 20:11] LABS: Glucose,Whole Blood 255 mg/dL (75-99)
--- NOTE | 2018-07-14 20:23 | PN ---
PROGRESS NOTE The patient is seen for followup for acute kidney injury and chronic kidney disease. He has been fairly stable over the last few days with renal function being stable with creatinine about 3.8 mg/dL for the last 2 days. PHYSICAL EXAMINATION: This afternoon, blood pressure was 142/70, heart rate 92 per minute. Patient is afebrile. Examination of the heart S1, S2. Examination of lungs bilateral breath sounds are heard. Abdomen is soft, nontender. PEG tube site is not bleeding. Examination of lower extremities shows no significant edema. LAB: Show hemoglobin 7.7, sodium 144, potassium 4.8, BUN 96, serum creatinine 3.8. ASSESSMENT: 1. Acute kidney injury, acute tubular necrosis, currently improved with renal functions staying stable with creatinine around 3.8 mg/dL. 2. Chronic kidney disease, most likely secondary to underlying chronic glomerular nephritis. Serologies were negative, but complements were low. The patient has about 1.5 g of proteinuria. There are plans for possible kidney biopsy down the road. 3. Vocal cord dysfunction and dysphagia status post PEG tube placement to start tube feedings. 4. Hypernatremia, currently resolved. 5. Staphylococcus aureus pneumonia, status post antibiotics. 6. Hypertension currently not on any significant antihypertensive medications. 7. Anemia associated with chronic kidney disease maintained on Aranesp. No current active bleeding noted. PLAN: Advance tube feedings as tolerated and decrease TPN. MMODL / IJN: [id number] /
[2018-07-14] MEDS: INSULIN DETEMIR (LEVEMIR) 100 UNIT/ML SYR SQ SCH (20:28)
[2018-07-14] MEDS: MORPHINE SULFATE 2 MG/ML SYRINGE IVP PRN (22:52)
[2018-07-14 23:44] LABS: Glucose,Whole Blood 292 mg/dL (75-99)
[2018-07-15] MEDS: MORPHINE SULFATE 2 MG/ML SYRINGE IVP PRN (03:26)
[2018-07-15] MEDS: IPRATROPIUM-ALBUTEROL 3 ML NEB INHALATION SCH ×5 (03:29→20:19)
[2018-07-15 04:22] LABS: Glucose,Whole Blood 190 mg/dL (75-99)
[2018-07-15] MEDS: INSULIN ASPART (NovoLOG) 100 UNIT/ML VIAL SQ SCH ×6 (04:24→20:36)
[2018-07-15 05:22] LABS: Anisocytosis Moderate; Hypochromasia Marked; MCH 30.2 pg (25.0-35.0); MCHC 30.5 g/dL (31.0-37.0); MCV 98.8 fL (80.0-100.0); Macrocytosis Moderate; Mean Platelet Volume 9.8; Platelet Count 97 k/uL (150-450); Poikilocytosis Slight; RDW 20.5 % (11.5-15.5)
[2018-07-15 05:37] LABS: Calcium 7.7 mg/dL (8.4-10.2); Potassium 4.5 mmol/L (3.5-5.1)
[2018-07-15 05:55] LABS: HGB 5.4 gm/dL (13.0-17.5)
[2018-07-15 05:56] LABS: HCT 17.8 % (39.0-53.0)
[2018-07-15 06:20] LABS: Magnesium 2.4 mg/dL (1.6-2.3)
[2018-07-15 06:21] LABS: Band Neutrophils % 1 %; Lymphocytes # (M) 0.47 k/uL (1.0-4.8); Monocytes # (M) 0.94 k/uL (0-1.0); Neutrophils % (M) 87 %; Nucleated Red Blood Cells 3 /100 WBC (0-0); Total Cells Counted 200; WBC 11.7 k/uL (3.8-10.6)
[2018-07-15 06:22] LABS: Polychromasia Present
--- NOTE | 2018-07-15 06:29 | XR ---
EXAMINATION TYPE: XR chest 1V portable DATE OF EXAM: 07/15/2018 HISTORY: sob. REFERENCE: Previous study dated 07/14/2018. FINDINGS: There has been an ACDF of the lower cervical spine. There is a left internal jugular catheter in place. Its tip is in the superior vena cava. There is a bibasilar airspace disease. There are small, bilateral effusions, greater on the left than the right. The heart is not enlarged. IMPRESSION: 1. CONTINUING BIBASILAR AIRSPACE DISEASE. 2. BILATERAL EFFUSIONS, GREATER ON THE LEFT THAN THE RIGHT.
[2018-07-15] MEDS: PIPERACILLIN-TAZOBACTAM 3.375 GM in SODIUM CHLORIDE 0.9% 100 ML IVPB SCH ×2 (08:02→20:35)
[2018-07-15] MEDS: LEVOTHYROXINE IVP 100 MCG/5 ML VIAL IV SCH (08:03)
[2018-07-15] MEDS: CALCIUM GLUCONATE 1 GM in SODIUM CHLORIDE 0.9% 100 ML IVPB SCH ×2 (08:03→20:45)
[2018-07-15] MEDS: PANTOPRAZOLE 40 MG/10 ML VIAL IVP SCH ×2 (08:03→20:35)
[2018-07-15] MEDS: methylPREDNISolone SOD SUCCI 40 MG/ML 1 ML VIAL IV SCH ×2 (08:04→16:32)
[2018-07-15 08:14] LABS: Albumin 2.1 g/dL (3.5-5.0); Phosphorus 4.7 mg/dL (2.5-4.5)
[2018-07-15 09:55] LABS: Glucose,Whole Blood 125 mg/dL (75-99)
--- NOTE | 2018-07-15 11:25 | PN ---
PROGRESS NOTE The patient is seen for followup for acute kidney injury and chronic kidney disease. Last night it appears that the patient's hemoglobin dropped down to about 5.4 g/dL. Urine output has also dropped. The patient has had about 5-10 mL/hour of urine output. He is being transfused packed RBCs. Blood pressure has been borderline. No fever. No other changes. No obvious bleeding noted at this time. The patient has had a GI bleed previously during this admission. PHYSICAL EXAMINATION: This morning, blood pressure was 91/50, heart rate of 100 per minute. He is afebrile. HEENT: Atraumatic, normocephalic. Pupils are equal, round. The patient's voice is hoarse. He is coughing. No bleeding noted from the PEG tube site. Examination of the lungs, decreased breath sounds at the bases. Abdomen is soft, nontender. Examination lower extremities shows trace edema bilaterally. MANAGER BENEFIT exam is grossly intact. LABS: Show hemoglobin 5.4, sodium 145, potassium 4.5, BUN 105, serum creatinine 4.02. ASSESSMENT: 1. Acute kidney injury, acute tubular necrosis, which had improved; however, renal function is worse again with significant decline in urine output secondary to hypotension, severe anemia. We will give a fluid bolus until the blood is transfused. 2. Chronic kidney disease most likely secondary to underlying chronic glomerulonephritis with serologies negative except for complements, which were low. 3. Acute anemia, most likely from underlying gastrointestinal bleed. No obvious bleeding noted at this time. Patient is being transfused packed RBCs. He did have an EGD when the PEG tube was placed, which did not show any active bleeding. 4. Vocal cord dysfunction and dysphagia, currently status post PEG tube, maintained on TPN. 5. Elevated BUN secondary to underlying gastrointestinal bleed. Monitor potassium level as it may increase given the decreased urine output and ongoing GI bleed. PLAN: IV fluid bolus x1. Transfuse packed RBCs and avoid nephrotoxic agents. We may need to start pressors if patient remains hypotensive. MMODL / IJN: [id number] /
[2018-07-15 12:25] LABS: Glucose,Whole Blood 128 mg/dL (75-99)
--- NOTE | 2018-07-15 12:32 | P.PN ---
Subjective Progress Note Date: 07/15/18 On 07/15/2018 and seeing this patient for a follow-up. After being well and doing good progress, the patient dropped his urine output yesterday and earlier this morning it was noted that there is significant drop in hemoglobin down to 5.5. At a later stage he started developing some abdominal pain and discomfort and that she'll feeds were placed on hold and the patient started having bloody output from his PEG tube which is consistent with GI bleeding, likely of an upper GI source. The 2 beats of is in good location and there is no bleeding around the tube. The patient is currently receiving total of 2 units of packed RBCs. GI was informed of this changes there were asked to come and reevaluate the patient. Currently tube is on hold. His mental status is acceptable. He is awake and alert. He is unable to swallow and his voice remains hoarse and his mouth is dry and is undergoing oral care. He underwent a right-sided thoracentesis and there was significant improvement in his overall pulmonary status and breathing following the procedure. The renal function is abnormal as the patient developed an acute GI bleed. Creatinine is up to 4.02 with a mean of 105. No fever. No chest pain.. The patient is still calm and comfortable in bed. Note that this patient was initially hospitalized for septic shock and staph pneumonia. He also developed acute kidney injury. He has previous history of alcoholism and previous history of pancreatitis and during an earlier endoscopy his bili ducts were removed. 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 He is known to have a moderate degree of mitral regurgitation, moderate pulmonary hypertension with a preserved LV function and ejection fraction of 50-55%. Objective - Vital Signs Vital signs: Vital Signs Temp 97.9 F 07/15/18 10:35 Pulse 96 07/15/18 11:41 Resp 22 07/15/18 10:35 BP 119/52 07/15/18 10:35 Pulse Ox 99 07/15/18 10:35 Intake & Output 07/14/18 07/15/18 07/15/18 18:59 06:59 18:59 Intake Total 1410 1580 856 Output Total 833 960 5279 Balance 560 1029 -149 Weight 67 kg 67 kg Intake: IV 900 1350 546 Amino Acid 5%-D15w+Lytes* 480 880 320 E* 1,000 ml @ 80 mls/hr IV .BY DURATION [facility] Rx#: [id number] CVP 36 3 6 Calcium Gluconate 1 gm In 100 100 100 Sodium Chloride 0.9% 100 ml @ 100 mls/hr IVPB BID [facility] Rx#:[id number] Dextrose 5%-0.45% NaCl 1, 100 120 20 000 ml @ 10 mls/hr IV . Q24H [facility] Rx#:[id number] Fat Emulsion 20% 250 ml @ 84 147 21 mls/hr IV Q24H [facility] Rx #:[id number] Piperacillin-Tazobactam 3 100 100 100 .375 gm In Sodium Chloride 0.9% 100 ml @ 25 mls/hr IVPB Q12HR [facility] Rx #:[id number] Intake, IV Titration 480 80 Amount Potassium Chloride 20 meq 480 80 Sodium Acetate 20 meq Magnesium Sulfate gm 2 gm Calcium Gluconate 1 gm In Amino Acid 5%-D15w 1, 000 ml @ 80 mls/hr IV .BY DURATION [facility] Rx#: [id number] Tube Feeding 30 90 Blood Product 310 Rc As-1 Unit 0 [id number] Rc As-1 Unit 310 [id number] Other 60 Output: Gastric Drainage 1000 Urine 850 551 5 Other: Voiding Method Indwelling Catheter Indwelling Catheter Indwelling Catheter # Voids 0 0 ABP, PAP, CO, CI - Last Documented Arterial Blood Pressure 158/56 - Exam GENERAL EXAM: The patient is awake yet quite sleepy and seems to be more lethargic as the day goes on and alert 68-year-old white male on oxygen at 2 L per nasal cannula HEAD: Normocephalic/atraumatic. EYES: Normal reaction of pupils, equal size. Conjunctiva pink, sclera white. NOSE: Clear with pink turbinates. THROAT: No erythema or exudates. NECK: No masses, no JVD, no thyroid enlargement, no adenopathy. CHEST: No chest wall deformity. Symmetrical expansion. LUNGS: Breath sounds bilaterally , Patient is quite diminished in lung bases bilaterally along with some dullness to percussion. The breath sounds improved on the right following the thoracentesis. CVS: Regular rate and rhythm, normal S1 and S2, no gallops, no murmurs, no rubs ABDOMEN: Soft, nontender. No hepatosplenomegaly, normal bowel sounds, no guarding or rigidity. The patient has a PEG tube in place. Exit site is not bleeding and there is a clot that has formed circumferentially around the PEG tube. The abdomen is nontender. No significant direct tenderness. No rebound tenderness or guarding at this point in time. Bowel sounds are hypoactive. No major distention. That she'll feeds 7 placed on hold and the patient's activity was placed to suction with 1200 mL of blood out port has been obtained which is dark tarry in nature. EXTREMITIES: No clubbing, no edema, no cyanosis, 2+ pulses and upper and lower extremities. MUSCULOSKELETAL: Muscle strength and tone diminished for now. SPINE: No scoliosis or deformity SKIN: No rashes CENTRAL NERVOUS SYSTEM: Motor weakness in all 4 extremities. For the most part, neurologic exam is nonfocal and the patient has equal and symmetrical facial expression without any asymmetry, equal pupils and equal water function all 4 extremities. However, overall condition is declining as the patient is p rogressively being noted to be more lethargic and is developing some diminished level of consciousness. PSYCHIATRIC: Able to obtain a psychiatric evaluation due to the above-mentioned condition. - Labs CBC & Chem 7: 07/15/18 04:57 07/15/18 04:57 Labs: Abnormal Lab Results - Last 24 Hours (Table) 07/14/18 07/14/18 07/14/18 Range/Units 16:33 20:10 23:42 WBC (3.8-10.6) k/uL RBC (4.30-5.90) m/uL Hgb (13.0-17.5) gm/dL Hct (39.0-53.0) % MCHC (31.0-37.0) g/dL RDW (11.5-15.5) % Plt Count (150-450) k/uL Neutrophils # (Manual) (1.3-7.7) k/uL Lymphocytes # (Manual) (1.0-4.8) k/uL Nucleated RBCs (0-0) /100 WBC Chloride (98-107) mmol/L BUN (9-20) mg/dL Creatinine (0.66-1.25) mg/dL Glucose (74-99) mg/dL POC Glucose (mg/dL) 255 H 255 H 292 H (75-99) mg/dL Calcium (8.4-10.2) mg/dL Phosphorus (2.5-4.5) mg/dL Magnesium (1.6-2.3) mg/dL Albumin (3.5-5.0) g/dL Crossmatch 07/15/18 07/15/18 07/15/18 Range/Units 04:21 04:57 04:57 WBC 11.7 H (3.8-10.6) k/uL RBC 1.80 L (4.30-5.90) m/uL Hgb 5.4 L* D (13.0-17.5) gm/dL Hct 17.8 L* (39.0-53.0) % MCHC 30.5 L (31.0-37.0) g/dL RDW 20.5 H (11.5-15.5) % Plt Count 97 L (150-450) k/uL Neutrophils # (Manual) 10.20 H (1.3-7.7) k/uL Lymphocytes # (Manual) 0.47 L (1.0-4.8) k/uL Nucleated RBCs 3 H (0-0) /100 WBC Chloride 113 H (98-107) mmol/L BUN 105 H* (9-20) mg/dL Creatinine 4.02 H (0.66-1.25) mg/dL Glucose 158 H (74-99) mg/dL POC Glucose (mg/dL) 190 H (75-99) mg/dL Calcium 7.7 L (8.4-10.2) mg/dL Phosphorus (2.5-4.5) mg/dL Magnesium 2.4 H (1.6-2.3) mg/dL Albumin (3.5-5.0) g/dL Crossmatch 07/15/18 07/15/18 07/15/18 Range/Units 04:57 05:40 09:54 WBC (3.8-10.6) k/uL RBC (4.30-5.90) m/uL Hgb (13.0-17.5) gm/dL Hct (39.0-53.0) % MCHC (31.0-37.0) g/dL RDW (11.5-15.5) % Plt Count (150-450) k/uL Neutrophils # (Manual) (1.3-7.7) k/uL Lymphocytes # (Manual) (1.0-4.8) k/uL Nucleated RBCs (0-0) /100 WBC Chloride (98-107) mmol/L BUN (9-20) mg/dL Creatinine (0.66-1.25) mg/dL Glucose (74-99) mg/dL POC Glucose (mg/dL) 125 H (75-99) mg/dL Calcium (8.4-10.2) mg/dL Phosphorus 4.7 H (2.5-4.5) mg/dL Magnesium (1.6-2.3) mg/dL Albumin 2.1 L (3.5-5.0) g/dL Crossmatch See Detail Microbiology - Last 24 Hours (Table) 07/13/18 10:30 Acid Fast Bacilli Smear - Final Lung - Right Acid Fast Bacilli Culture - Preliminary 07/13/18 10:30 Gram Stain - Preliminary Pleural Fluid Body Fluid Culture - Preliminary Assessment and Plan Plan: #1. Acute hypoxemic respiratory failure requiring intubation and mechanical ventilation for staph pneumonia, and the sputum culture showed staph was sensitive to oxacillin/MSSA . Subsequently the patient developed bilateral pleural effusion. The patient underwent a right-sided thoracentesis were total of 1 L of fluid was removed from the right lung. The patient remains on IV Zosyn. Chest x-ray shows improvement in the right lower lobe opacity in the patient's oxidation is improved and currently is down to 2 L about 2 by nasal cannula. #2. Dysphagia related to vocal cord edema, and redness, ENT evaluation was obtained, please refer to their note. The patient lost his ability to eat. the patient is currently on TPN for nutritional support. The patient also has a PEG tube insertion and the patient was started on enteral feeding for nutritional support yesterday and the tube feeds had to be stopped because of ongoing GI ble ed which seems to be an upper GI source of bleeding. #3. Upper GI source of bleeding problems related to PEG tube insertion. At the same time the patient had external bleeding at the site of the PEG tube insertion which was controlled locally. For now I think there is a internal bleed causing significant amount of hemorrhage and drop in hemoglobin down to 5.4 and the patient's tube feeds are currently on hold. He still receiving TPN for incision support. #4. abnormal LFTs, likely secondary to hypotension/shock liver, improved #5. Blood loss anemia secondary to GI bleed. The PEG tube site was bleeding earlier this was controlled and this was essentially external bleeding. Currently the patient is having bleeding internally with a significant drop in hemoglobin. #6. Acute on top of chronic kidney injury, the acute component is improving and the creatinine is back up again to 4.0 to as the patient developed GI bleeding and the currently urine output is quite minimal. #8. History of hypothyroidism #9. Full CODE STATUS #10. Thrombocytopenia Plan: Active issue for now as the GI bleeds. I think the GI bleed source is the stomach with the PEG tube was inserted. Initially the bleeding was external and this was controlled and currently the patient is having internal bleed with significant drop in hemoglobin down to 5.4. The patient developed drop in urine output. He also has diminished level of consciousness. He is going to be given 2 L of IV fluids with normal saline. He will be receiving 2 units of packed RBCs. Will monitor the hemoglobin repeat the levels. I contacted gastroenterology and the patient will likely need an endoscopy both upper and lo wer. Keep the tube feeds on hold. Put the PEG tube to suctioning and monitor the output. IV Protonix. IV fluids. IV antibiotics with Zosyn. Monitor platelet count. Monitor coagulation profile. We'll continue to follow. Keep the patient on TPN for now. Condition is critical.
[2018-07-15] MEDS: FAT EMULSION 20% 250 ML IV SCH (12:35)
--- NOTE | 2018-07-15 13:36 | P.PN ---
Subjective Progress Note Date: 07/14/18 Principal diagnosis: Pneumonia and acute metabolic encephalopathy Covering for Dr. Elliott through the weekend 68-year-old male currently in the ICU. Patient has been on a ventilator, extubated on 07/03/2018 later on was on BiPAP 10 transferred out of ICU. Later on patient had a bloody bowel movement and required 2 units of blood sodium admitted to the ICU. Patient remains on TPN for nutritional support. Vision had thoracentesis done on July 12 with 1.2 L of fluid removal. Patient required 2 units of blood couple of days back as his hemoglobin dropped to 5.7. Today the patient is lying in bed stating the ICU. He states he has been feeling weak and tired. Patient is a poor historian. But overall he denies having any fevers. No complaints of chest pain or difficulty in breathing. He denies having any abdominal pain. Patient's medications and labs have been reviewed. Active Medications Albuterol/Ipratropium (Duoneb 0.5 Mg-3 Mg/3 Ml Soln) 3 ml INHALATION RT-Q4H [facility] Last Admin: 07/14/18 10:54 Dose: 3 ml Documented by: Darbepoetin Von (Aranesp) 60 mcg SQ Q7D [facility] Last Admin: 07/10/18 18:27 Dose: 60 mcg Documented by: Ergocalciferol (Vitamin D2) 50,000 unit PO Q72H [facility] Last Admin: 07/13/18 15:11 Dose: Not Given Documented by: Hydralazine HCl (Apresoline) 10 mg IVP Q6HR PRN PRN Reason: Blood Pressure - High Last Admin: 07/08/18 03:44 Dose: 10 mg Documented by: Calcium Gluconate 1 gm/ Sodium (Chloride) 110 mls @ 100 mls/hr IVPB BID [facility] Last Admin: 07/14/18 10:35 Dose: 100 mls/hr Documented by: Piperacillin Sod/Tazobactam (Sod 3.375 gm/ Sodium Chloride) 100 mls @ 25 mls/hr IVPB Q12HR [facility] Last Admin: 07/14/18 09:04 Dose: 25 mls/hr Documented by: Dextrose/Sodium Chloride (Dextrose 5%-1/2ns Iv Soln) 1,000 mls @ 10 mls/hr IV .Q24H [facility] Last Admin: 07/14/18 00:12 Dose: 10 mls/hr Documented by: Fat Emulsion Intravenous (Lipids 20%) 250 mls @ 21 mls/hr IV Q24H [facility] Last Admin: 07/14/18 14:12 Dose: 21 mls/hr Documented by: Potassium Chloride 20 meq/Sodium Acetate 20 meq/Magnesium Sulfate 2 gm/Calcium Gluconate 1 gm/ Amino Acids/Dextrose 1,034 mls @ 80 mls/hr IV .BY DURATION [facility] Last Admin: 07/14/18 12:57 Dose: 80 mls/hr Documented by: Potassium Chloride 20 meq/Sodium Acetate 20 meq/Magnesium Sulfate 2 gm/Calcium Gluconate 1 gm/Parenteral Vitamin Supplement 10 ml/ Chromium /Copper/Manganese/Seleni/Zn 1 ml/Amino Acids/Dextrose 1,045 mls @ 80 mls/hr IV .BY DURATION [facility] Insulin Aspart (Novolog) 0 unit SQ Q4H [facility]; Protocol Last Admin: 07/14/18 12:55 Dose: 2 unit Documented by: Insulin Detemir (Levemir) [address] [facility] Last Admin: 07/13/18 21:07 Dose: 18 unit Documented by: Levothyroxine Sodium (Synthroid Ivp) 50 mcg IV DAILY [facility] Last Admin: 07/14/18 09:01 Dose: 50 mcg Documented by: Methylprednisolone Sodium Succinate (Solu-Medrol) 40 mg IV Q8HR [facility] Last Admin: 07/14/18 08:58 Dose: 40 mg Documented by: Morphine Sulfate (Morphine Sulfate (Inj)) 1 mg IVP Q4H PRN PRN Reason: Pain/Discomfort Last Admin: 07/12/18 01:47 Dose: 1 mg Documented by: Naloxone HCl (Narcan) 0.2 mg IV Q2M PRN PRN Reason: Opioid Reversal Pantoprazole Sodium (Protonix) 40 mg IVP BID [facility] Last Admin: 07/14/18 08:55 Dose: 40 mg Documented by: Objective - Vital Signs Vital signs: Vital Signs Temp 98.9 F 07/14/18 14:00 Pulse 97 07/14/18 14:00 Resp 17 07/14/18 14:00 BP 142/70 07/14/18 14:00 Pulse Ox 95 07/14/18 14:00 Intake & Output 07/13/18 07/14/18 07/14/18 18:59 06:59 18:59 Intake Total 2417 1328 924 Output Total 2065 615 565 Balance 352 713 359 Weight 66 kg 67 kg Intake: IV 926 1328 764 Amino Acid 5%-D15w+Lytes* 560 880 480 E* 1,000 ml @ 80 mls/hr IV .BY DURATION [facility] Rx#: [id number] CVP 39 33 24 Calcium Gluconate 1 gm In 100 100 100 Sodium Chloride 0.9% 100 ml @ 100 mls/hr IVPB BID [facility] Rx#:[id number] Dextrose 5%-0.45% NaCl 1, 30 110 60 000 ml @ 10 mls/hr IV . Q24H [facility] Rx#:[id number] Fat Emulsion 20% 250 ml @ 147 105 21 mls/hr IV Q24H [facility] Rx #:[id number] Piperacillin-Tazobactam 3 50 100 100 .375 gm In Sodium Chloride 0.9% 100 ml @ 25 mls/hr IVPB Q12HR [facility] Rx #:[id number] Intake, IV Titration 1491 160 Amount Amino Acid 5%-D15w+Lytes* 480 E* 1,000 ml @ 80 mls/hr IV .BY DURATION [facility] Rx#: [id number] Mvi, Adult No.4 with Vit 1011 K 10 ml Trace (Conc-1Ml/ Dose) 1 ml In Amino Acid 5%-D15w+Lytes*E* 1,000 ml @ 80 mls/hr IV .BY DURATION [facility] Rx#: [id number] Potassium Chloride 20 meq 160 Sodium Acetate 20 meq Magnesium Sulfate gm 2 gm Calcium Gluconate 1 gm In Amino Acid 5%-D15w 1, 000 ml @ 80 mls/hr IV .BY DURATION [facility] Rx#: [id number] Output: Urine 865 615 565 Other 1200 Other: Voiding Method Indwelling Catheter Indwelling Catheter Indwelling Catheter # Voids 0 ABP, PAP, CO, CI - Last Documented Arterial Blood Pressure 158/56 - Exam GEN. APPEARANCE: alert, in no apparent distress HEAD EXAM: atraumatic, normocephalic, normal inspection EYE EXAM: normal appearance, PERRL, EOMI. Absent: scleral icterus, conjunctival injection, periorbital swelling ENT EXAM: normal exam, mucous membranes moist NECK EXAM: normal inspection. Absent: tenderness, meningismus, full ROM, lymphadenopathy RESPIRATORY EXAM: Bilateral breath sounds are positive. Decreased at the lower lung bases. CARDIOVASCULAR EXAM: regular rate, normal rhythm, normal heart sounds. Absent: systolic murmur, diastolic murmur, rubs, gallop, clicks GI/ABDOMINAL EXAM: soft, normal bowel sounds. Absent: distended, tenderness, guarding, rebound, rigid EXTREMITIES EXAM: No edema. NEUROLOGICAL EXAM: alert, oriented 2-3 PSYCHIATRIC EXAM: normal affect, normal mood SKIN EXAM: warm, dry, intact, normal color. Absent: rash - Labs CBC & Chem 7: 07/14/18 04:01 07/14/18 04:01 Labs: Abnormal Lab Results - Last 24 Hours (Table) 07/13/18 07/13/18 07/14/18 Range/Units 16:43 20:33 00:08 WBC (3.8-10.6) k/uL RBC (4.30-5.90) m/uL Hgb (13.0-17.5) gm/dL Hct (39.0-53.0) % RDW (11.5-15.5) % Plt Count (150-450) k/uL Neutrophils # (1.3-7.7) k/uL Lymphocytes # (1.0-4.8) k/uL Chloride (98-107) mmol/L BUN (9-20) mg/dL Creatinine (0.66-1.25) mg/dL Glucose (74-99) mg/dL POC Glucose (mg/dL) 217 H 225 H 242 H (75-99) mg/dL Calcium (8.4-10.2) mg/dL Phosphorus (2.5-4.5) mg/dL Alkaline Phosphatase (38-126) U/L Total Protein (6.3-8.2) g/dL Albumin (3.5-5.0) g/dL 07/14/18 07/14/18 07/14/18 Range/Units 04:01 04:01 04:09 WBC 13.7 H (3.8-10.6) k/uL RBC 2.47 L (4.30-5.90) m/uL Hgb 7.7 L (13.0-17.5) gm/dL Hct 24.1 L (39.0-53.0) % RDW 20.3 H (11.5-15.5) % Plt Count 111 L (150-450) k/uL Neutrophils # 12.7 H (1.3-7.7) k/uL Lymphocytes # 0.3 L (1.0-4.8) k/uL Chloride 112 H (98-107) mmol/L BUN 96 H (9-20) mg/dL Creatinine 3.81 H (0.66-1.25) mg/dL Glucose 222 H (74-99) mg/dL POC Glucose (mg/dL) 222 H (75-99) mg/dL Calcium 7.6 L (8.4-10.2) mg/dL Phosphorus 5.1 H (2.5-4.5) mg/dL Alkaline Phosphatase 232 H (38-126) U/L Total Protein 4.5 L (6.3-8.2) g/dL Albumin 2.3 L (3.5-5.0) g/dL 07/14/18 07/14/18 Range/Units 08:49 12:12 WBC (3.8-10.6) k/uL RBC (4.30-5.90) m/uL Hgb (13.0-17.5) gm/dL Hct (39.0-53.0) % RDW (11.5-15.5) % Plt Count (150-450) k/uL Neutrophils # (1.3-7.7) k/uL Lymphocytes # (1.0-4.8) k/uL Chloride (98-107) mmol/L BUN (9-20) mg/dL Creatinine (0.66-1.25) mg/dL Glucose (74-99) mg/dL POC Glucose (mg/dL) 228 H 202 H (75-99) mg/dL Calcium (8.4-10.2) mg/dL Phosphorus (2.5-4.5) mg/dL Alkaline Phosphatase (38-126) U/L Total Protein (6.3-8.2) g/dL Albumin (3.5-5.0) g/dL Microbiology - Last 24 Hours (Table) 07/13/18 10:30 Gram Stain - Preliminary Pleural Fluid Body Fluid Culture - Preliminary 07/13/18 10:30 Acid Fast Bacilli Culture - Preliminary Lung - Right 07/13/18 10:30 Fungal Culture - Preliminary Pleural Fluid Assessment and Plan Assessment: ASSESSMENT Acute hypoxic respiratory failure- status post extubation Pneumonia secondary to MSSA Right-sided pleural effusion- status post 1.2 liters of fluid removal Hyponatremia resolving Acute blood loss anemia secondary to GI bleed AK I on CK D Hypothyroidism Elevated LFTs possibly shock liver On TPN - due to dysphagia from vocal cord edema PEG tube site with bleeding Plan: Patient received 2 units of PRBCs and his hemoglobin has been stable. Antibiotics in the form of Zosyn for his MSSA pneumonia. Continue with TPN. Continue with the rest of his medication regimen. Further recommendations depending on the progress of the patient. Overall prognosis is poor. CODE STATUS is full.
--- NOTE | 2018-07-15 13:44 | P.PN ---
Subjective Progress Note Date: 07/15/18 Principal diagnosis: Pneumonia and acute metabolic encephalopathy, Acute GI Bleed Covering for Dr. Elliott through the weekend 68-year-old male currently in the ICU. Patient has been on a ventilator, extubated on 07/03/2018 later on was on BiPAP 10 transferred out of ICU. Later on patient had a bloody bowel movement and required 2 units of blood sodium admitted to the ICU. Patient remains on TPN for nutritional support. [facility] had thoracentesis done on July 12 with 1.2 L of fluid removal. Patient required 2 units of blood couple of days back as his hemoglobin dropped to 5.7. On 07/15/18- as per the nursing staff report the patient had bloody secretions from his PEG tube along with some bleeding around the PEG tube site. Patient's hemoglobin dropped to 5.5 this morning. Patient did not have urinary output last night. After bolusing him with couple of liters of IV fluids, he started to make urine at 10 mL per hour. He is lying comfortably in the bed in the ICU. Patient appears to be less likely today compared to yesterday. He opens his eyes on calling his name but is not able to hold a conversation with me. He drifts back to sleep again. Complete review of systems could not be done as the patient drifts back and forth into sleep. Active Medications Albuterol/Ipratropium (Duoneb 0.5 Mg-3 Mg/3 Ml Soln) 3 ml INHALATION RT-Q4H [facility] Last Admin: 07/15/18 11:25 Dose: 3 ml Documented by: Darbepoetin Von (Aranesp) 60 mcg SQ Q7D [facility] Last Admin: 07/10/18 18:27 Dose: 60 mcg Documented by: Ergocalciferol (Vitamin D2) 50,000 unit PO Q72H [facility] Last Admin: 07/13/18 15:11 Dose: Not Given Documented by: Hydralazine HCl (Apresoline) 10 mg IVP Q6HR PRN PRN Reason: Blood Pressure - High Last Admin: 07/08/18 03:44 Dose: 10 mg Documented by: Calcium Gluconate 1 gm/ Sodium (Chloride) 110 mls @ 100 mls/hr IVPB BID [facility] Last Admin: 07/15/18 08:03 Dose: 100 mls/hr Documented by: Piperacillin Sod/Tazobactam (Sod 3.375 gm/ Sodium Chloride) 100 mls @ 25 mls/hr IVPB Q12HR [facility] Last Admin: 07/15/18 08:02 Dose: 25 mls/hr Documented by: Dextrose/Sodium Chloride (Dextrose 5%-1/2ns Iv Soln) 1,000 mls @ 10 mls/hr IV .Q24H [facility] Last Admin: 07/14/18 17:24 Dose: 10 mls/hr Documented by: Fat Emulsion Intravenous (Lipids 20%) 250 mls @ 21 mls/hr IV Q24H [facility] Last Admin: 07/15/18 12:35 Dose: 21 mls/hr Documented by: Potassium Chloride 20 meq/Sodium Acetate 20 meq/Magnesium Sulfate 2 gm/Calcium Gluconate 1 gm/ Amino Acids/Dextrose 1,034 mls @ 80 mls/hr IV .BY DURATION [facility] Stop: 07/15/18 15:59 Last Admin: 07/14/18 12:57 Dose: 80 mls/hr Documented by: Potassium Chloride 20 meq/Sodium Acetate 20 meq/Magnesium Sulfate 2 gm/Calcium Gluconate 1 gm/Parenteral Vitamin Supplement 10 ml/ Chromium/Coppe r/Manganese/Seleni/Zn 1 ml/Amino Acids/Dextrose 1,045 mls @ 80 mls/hr IV .BY DURATION [facility] Stop: 07/15/18 15:59 Last Admin: 07/15/18 02:45 Dose: 80 mls/hr Documented by: Potassium Acetate 20 meq/Sodium Acetate 20 meq/ Calcium Gluconate 1 gm/ Amino Acids/Dextrose 1,030 mls @ 80 mls/hr IV .BY DURATION [facility] Potassium Acetate 20 meq/Sodium Acetate 20 meq/ Calcium Gluconate 1 gm/ Parenteral Vitamin Supplement 10 ml/Chromium/Copper/Manganese/Seleni/Zn 1 ml/ Amino Acids/Dextrose 1,041 mls @ 80 mls/hr IV .BY DURATION [facility] Insulin Aspart (Novolog) 0 unit SQ Q4H [facility]; Protocol Last Admin: 07/15/18 13:10 Dose: Not Given Documented by: Insulin Detemir (Levemir) 18 unit SQ HS [facility] Last Admin: 07/14/18 20:28 Dose: 18 unit Documented by: Levothyroxine Sodium (Synthroid Ivp) 50 mcg IV DAILY [facility] Last Admin: 07/15/18 08:03 Dose: 50 mcg Documented by: Methylprednisolone Sodium Succinate (Solu-Medrol) 40 mg IV Q8HR [facility] Last Admin: 07/15/18 08:04 Dose: 40 mg Documented by: Morphine Sulfate (Morphine Sulfate (Inj)) 1 mg IVP Q4H PRN PRN Reason: Pain/Discomfort Last Admin: 07/15/18 03:26 Dose: 1 mg Documented by: Naloxone HCl (Narcan) 0.2 mg IV Q2M PRN PRN Reason: Opioid Reversal Pantoprazole Sodium (Protonix) 40 mg IVP BID [facility] Last Admin: 07/15/18 08:03 Dose: 40 mg Documented by: Objective - Vital Signs Vital signs: Vital Signs Temp 97.9 F 07/15/18 12:00 Pulse 90 07/15/18 13:00 Resp 16 07/15/18 12:00 BP 122/62 07/15/18 13:00 Pulse Ox 100 07/15/18 13:00 Intake & Output 07/14/18 07/15/18 07/15/18 18:59 06:59 18:59 Intake Total 1410 1580 2295 Output Total 965 032 3265 Balance 560 1029 1255 Weight 67 kg 67 kg Intake: IV 900 1350 835 Amino Acid 5%-D15w+Lytes* 480 880 320 E* 1,000 ml @ 80 mls/hr IV .BY DURATION [facility] Rx#: [id number] CVP 36 3 15 Calcium Gluconate 1 gm In 100 100 100 Sodium Chloride 0.9% 100 ml @ 100 mls/hr IVPB BID [facility] Rx#:[id number] Dextrose 5%-0.45% NaCl 1, 100 120 50 000 ml @ 10 mls/hr IV . Q24H [facility] Rx#:[id number] Fat Emulsion 20% 250 ml @ 84 147 250 21 mls/hr IV Q24H [facility] Rx #:[id number] Piperacillin-Tazobactam 3 100 100 100 .375 gm In Sodium Chloride 0.9% 100 ml @ 25 mls/hr IVPB Q12HR [facility] Rx #:[id number] Intake, IV Titration 480 80 240 Amount Potassium Acetate 20 meq 240 Sodium Acetate 20 meq Calcium Gluconate 1 gm Mvi, Adult No.4 with Vit K 10 ml Trace (Conc-1Ml/ Dose) 1 ml In Amino Acid 5%-D15w 1,000 ml @ 80 mls /hr IV .BY DURATION [facility] Rx#:[id number] Potassium Chloride 20 meq 480 80 Sodium Acetate 20 meq Magnesium Sulfate gm 2 gm Calcium Gluconate 1 gm In Amino Acid 5%-D15w 1, 000 ml @ 80 mls/hr IV .BY DURATION [facility] Rx#: [id number] Tube Feeding 30 90 Blood Product 1220 Rc As-1 Unit 310 [id number] Rc As-1 Unit 310 [id number] Other 60 Output: Gastric Drainage 1000 Urine 850 551 40 Other: Voiding Method Indwelling Catheter Indwelling Catheter Indwelling Catheter # Voids 0 0 ABP, PAP, CO, CI - Last Documented Arterial Blood Pressure 158/56 - Exam GEN. APPEARANCE: alert, in no apparent distress HEAD EXAM: atraumatic, normocephalic, normal inspection EYE EXAM: normal appearance, PERRL, EOMI. Absent: scleral icterus, conjunctival injection, periorbital swelling ENT EXAM: normal exam, mucous membranes moist NECK EXAM: normal inspection. Absent: tenderness, meningismus, full ROM, lymphadenopathy RESPIRATORY EXAM: Bilateral breath sounds are positive. Decreased at the lower lung bases. CARDIOVASCULAR EXAM: regular rate, normal rhythm, normal heart sounds. Absent: systolic murmur, diastolic murmur, rubs, gallop, clicks GI/ABDOMINAL EXAM: Abdomen is tender to touch. Not distended. No guarding or rigidity. Bowel sounds are normal. PEG tube site has dried blood. EXTREMITIES EXAM: Mild pitting pedal edema. NEUROLOGICAL EXAM: alert, patient opens his eyes on calling his name but drifts back to sleep. - Labs CBC & Chem 7: 07/15/18 04:57 07/15/18 04:57 Labs: Abnormal Lab Results - Last 24 Hours (Table) 07/14/18 07/14/18 07/14/18 Range/Units 16:33 20:10 23:42 WBC (3.8-10.6) k/uL RBC (4.30-5.90) m/uL Hgb (13.0-17.5) gm/dL Hct (39.0-53.0) % MCHC (31.0-37.0) g/dL RDW (11.5-15.5) % Plt Count (150-450) k/uL Neutrophils # (Manual) (1.3-7.7) k/uL Lymphocytes # (Manual) (1.0-4.8) k/uL Nucleated RBCs (0-0) /100 WBC Chloride (98-107) mmol/L BUN (9-20) mg/dL Creatinine (0.66-1.25) mg/dL Glucose (74-99) mg/dL POC Glucose (mg/dL) 255 H 255 H 292 H (75-99) mg/dL Calcium (8.4-10.2) mg/dL Phosphorus (2.5-4.5) mg/dL Magnesium (1.6-2.3) mg/dL Albumin (3.5-5.0) g/dL Crossmatch 07/15/18 07/15/18 07/15/18 Range/Units 04:21 04:57 04:57 WBC 11.7 H (3.8-10.6) k/uL RBC 1.80 L (4.30-5.90) m/uL Hgb 5.4 L* D (13.0-17.5) gm/dL Hct 17.8 L* (39.0-53.0) % MCHC 30.5 L (31.0-37.0) g/dL RDW 20.5 H (11.5-15.5) % Plt Count 97 L (150-450) k/uL Neutrophils # (Manual) 10.20 H (1.3-7.7) k/uL Lymphocytes # (Manual) 0.47 L (1.0-4.8) k/uL Nucleated RBCs 3 H (0-0) /100 WBC Chloride 113 H (98-107) mmol/L BUN 105 H* (9-20) mg/dL Creatinine 4.02 H (0.66-1.25) mg/dL Glucose 158 H (74-99) mg/dL POC Glucose (mg/dL) 190 H (75-99) mg/dL Calcium 7.7 L (8.4-10.2) mg/dL Phosphorus (2.5-4.5) mg/dL Magnesium 2.4 H (1.6-2.3) mg/dL Albumin (3.5-5.0) g/dL Crossmatch 07/15/18 07/15/18 07/15/18 Range/Units 04:57 05:40 09:54 WBC (3.8-10.6) k/uL RBC (4.30-5.90) m/uL Hgb (13.0-17.5) gm/dL Hct (39.0-53.0) % MCHC (31.0-37.0) g/dL RDW (11.5-15.5) % Plt Count (150-450) k/uL Neutrophils # (Manual) (1.3-7.7) k/uL Lymphocytes # (Manual) (1.0-4.8) k/uL Nucleated RBCs (0-0) /100 WBC Chloride (98-107) mmol/L BUN (9-20) mg/dL Creatinine (0.66-1.25) mg/dL Glucose (74-99) mg/dL POC Glucose (mg/dL) 125 H (75-99) mg/dL Calcium (8.4-10.2) mg/dL Phosphorus 4.7 H (2.5-4.5) mg/dL Magnesium (1.6-2.3) mg/dL Albumin 2.1 L (3.5-5.0) g/dL Crossmatch See Detail 07/15/18 Range/Units 12:23 WBC (3.8-10.6) k/uL RBC (4.30-5.90) m/uL Hgb (13.0-17.5) gm/dL Hct (39.0-53.0) % MCHC (31.0-37.0) g/dL RDW (11.5-15.5) % Plt Count (150-450) k/uL Neutrophils # (Manual) (1.3-7.7) k/uL Lymphocytes # (Manual) (1.0-4.8) k/uL Nucleated RBCs (0-0) /100 WBC Chloride (98-107) mmol/L BUN (9-20) mg/dL Creatinine (0.66-1.25) mg/dL Glucose (74-99) mg/dL POC Glucose (mg/dL) 128 H (75-99) mg/dL Calcium (8.4-10.2) mg/dL Phosphorus (2.5-4.5) mg/dL Magnesium (1.6-2.3) mg/dL Albumin (3.5-5.0) g/dL Crossmatch Microbiology - Last 24 Hours (Table) 07/13/18 10:30 Acid Fast Bacilli Smear - Final Lung - Right Acid Fast Bacilli Culture - Preliminary 07/13/18 10:30 Gram Stain - Preliminary Pleural Fluid Body Fluid Culture - Preliminary Assessment and Plan Assessment: ASSESSMENT Acute blood loss anemia - secondary to GI bleed Acute hypoxic respiratory failure- status post extubation Pneumonia secondary to MSSA Right-sided pleural effusion- status post 1.2 liters of fluid removal Hyponatremia resolving AK I on CK D - worsening Hypothyroidism Elevated LFTs possibly shock liver On TPN - due to dysphagia from vocal cord edema PEG tube site with bleeding Plan: patient's hemoglobin dropped to 5.5 this morning. He is currently being transfused with 2 units of PRBCs. PEG tube feeds on hold. Patient still has pretty discharge from the PEG tube. GI on board and possibly for planning for an endoscopy and colonoscopy tomorrow. Antibiotics in the form of Zosyn for his MSSA pneumonia. Continue with TPN. Continue with the rest of his medication regimen. Further recommendations depending on the progress of the patient. Overall prognosis is very poor. CODE STATUS is full. Dr. Elliott will be following the patient from tomorrow.
[2018-07-15] MEDS ORDERED: SODIUM CHLORIDE 0.9% 2,000 ML IV ONE (14:06)
[2018-07-15 15:22] LABS: Anisocytosis Moderate; Basophils % (A) 0 %; Eosinophils % (A) 0 %; Hypochromasia Slight; Lymphocytes # (A) 0.4 k/uL (1.0-4.8); Lymphocytes % (A) 4 %; MCH 31.3 pg (25.0-35.0); MCHC 33.9 g/dL (31.0-37.0); Macrocytosis Slight; Mean Platelet Volume 9.7; Monocytes # (A) 0.6 k/uL (0-1.0); Monocytes % (A) 5 %; Neutrophils # (A) 10.5 k/uL (1.3-7.7); Neutrophils % (A) 90 %; Poikilocytosis Slight; RDW 20.3 % (11.5-15.5); WBC 11.7 k/uL (3.8-10.6)
[2018-07-15 15:23] LABS: HGB 8.5 gm/dL (13.0-17.5); MCV 92.3 fL (80.0-100.0); Platelet Count 94 k/uL (150-450)
[2018-07-15] MEDS: DEXTROSE 5%-0.45% NACL 1,000 ML IV SCH (15:58)
[2018-07-15] MEDS ORDERED: PEG 3350-NA SULF,BICARB,CL/KCL 4,000 ML BOTTLE PO ONE (16:01)
--- NOTE | 2018-07-15 16:08 | P.PN ---
Subjective Progress Note Date: 07/15/18 Principal diagnosis: Anemia, history of chronic pancreatitis, oropharyngeal dysphagia, GI bleed Patient is seen lying in bed today. No further oozing from the PEG tube site. However the patient had further fall in hemoglobin with dark output when PEG tube was put on to suction. He's also had episodes of blood per rectum during hospitalization. No bowel movements reported today. Objective - Vital Signs Vital signs: Vital Signs Temp 97.9 F 07/15/18 10:35 Pulse 99 07/15/18 10:35 Resp 22 07/15/18 10:35 BP 119/52 07/15/18 10:35 Pulse Ox 99 07/15/18 10:35 Intake & Output 07/14/18 07/15/18 07/15/18 18:59 06:59 18:59 Intake Total 1410 1580 856 Output Total 243 030 5758 Balance 560 1029 -149 Weight 67 kg 67 kg Intake: IV 900 1350 546 Amino Acid 5%-D15w+Lytes* 480 880 320 E* 1,000 ml @ 80 mls/hr IV .BY DURATION [facility] Rx#: [id number] CVP 36 3 6 Calcium Gluconate 1 gm In 100 100 100 Sodium Chloride 0.9% 100 ml @ 100 mls/hr IVPB BID [facility] Rx#:[id number] Dextrose 5%-0.45% NaCl 1, 100 120 20 000 ml @ 10 mls/hr IV . Q24H [facility] Rx#:[id number] Fat Emulsion 20% 250 ml @ 84 147 21 mls/hr IV Q24H [facility] Rx #:[id number] Piperacillin-Tazobactam 3 100 100 100 .375 gm In Sodium Chloride 0.9% 100 ml @ 25 mls/hr IVPB Q12HR [facility] Rx #:[id number] Intake, IV Titration 480 80 Amount Potassium Chloride 20 meq 480 80 Sodium Acetate 20 meq Magnesium Sulfate gm 2 gm Calcium Gluconate 1 gm In Amino Acid 5%-D15w 1, 000 ml @ 80 mls/hr IV .BY DURATION [facility] Rx#: [id number] Tube Feeding 30 90 Blood Product 310 Rc As-1 Unit 0 [id number] Rc As-1 Unit 310 [id number] Other 60 Output: Gastric Drainage 1000 Urine 850 551 5 Other: Voiding Method Indwelling Catheter Indwelling Catheter Indwelling Catheter # Voids 0 0 ABP, PAP, CO, CI - Last Documented Arterial Blood Pressure 158/56 - Exam On physical examination, patient appears comfortable in no apparent distress. HEAD: Normocephalic, atraumatic. EYES: No scleral icterus. No conjunctival injection. MOUTH: No lesions, tongue midline. NECK: Trachea midline, no gross abnormalities. CHEST: Coarse respiratory noises in all lung yi. HEART: S1-S2 appreciated. ABDOMEN: Soft, PEG tube is in place with old blood and no active bleeding seen. Bowel sounds are positive. No organomegaly. No guarding or rigidity. EXTREMITIES: No pedal edema. SKIN: No rashes, no jaundice. NEUROLOGIC: Awake and interactive. - Labs CBC & Chem 7: 07/15/18 14:30 07/15/18 04:57 Labs: Abnormal Lab Results - Last 24 Hours (Table) 07/14/18 07/14/18 07/14/18 Range/Units 12:12 16:33 20:10 WBC (3.8-10.6) k/uL RBC (4.30-5.90) m/uL Hgb (13.0-17.5) gm/dL Hct (39.0-53.0) % MCHC (31.0-37.0) g/dL RDW (11.5-15.5) % Plt Count (150-450) k/uL Neutrophils # (Manual) (1.3-7.7) k/uL Lymphocytes # (Manual) (1.0-4.8) k/uL Nucleated RBCs (0-0) /100 WBC Chloride (98-107) mmol/L BUN (9-20) mg/dL Creatinine (0.66-1.25) mg/dL Glucose (74-99) mg/dL POC Glucose (mg/dL) 202 H 255 H 255 H (75-99) mg/dL Calcium (8.4-10.2) mg/dL Phosphorus (2.5-4.5) mg/dL Magnesium (1.6-2.3) mg/dL Albumin (3.5-5.0) g/dL Crossmatch 07/14/18 07/15/18 07/15/18 Range/Units 23:42 04:21 04:57 WBC 11.7 H (3.8-10.6) k/uL RBC 1.80 L (4.30-5.90) m/uL Hgb 5.4 L* D (13.0-17.5) gm/dL Hct 17.8 L* (39.0-53.0) % MCHC 30.5 L (31.0-37.0) g/dL RDW 20.5 H (11.5-15.5) % Plt Count 97 L (150-450) k/uL Neutrophils # (Manual) 10.20 H (1.3-7.7) k/uL Lymphocytes # (Manual) 0.47 L (1.0-4.8) k/uL Nucleated RBCs 3 H (0-0) /100 WBC Chloride (98-107) mmol/L BUN (9-20) mg/dL Creatinine (0.66-1.25) mg/dL Glucose (74-99) mg/dL POC Glucose (mg/dL) 292 H 190 H (75-99) mg/dL Calcium (8.4-10.2) mg/dL Phosphorus (2.5-4.5) mg/dL Magnesium (1.6-2.3) mg/dL Albumin (3.5-5.0) g/dL Crossmatch 07/15/18 07/15/18 07/15/18 Range/Units 04:57 04:57 05:40 WBC (3.8-10.6) k/uL RBC (4.30-5.90) m/uL Hgb (13.0-17.5) gm/dL Hct (39.0-53.0) % MCHC (31.0-37.0) g/dL RDW (11.5-15.5) % Plt Count (150-450) k/uL Neutrophils # (Manual) (1.3-7.7) k/uL Lymphocytes # (Manual) (1.0-4.8) k/uL Nucleated RBCs (0-0) /100 WBC Chloride 113 H (98-107) mmol/L BUN 105 H* (9-20) mg/dL Creatinine 4.02 H (0.66-1.25) mg/dL Glucose 158 H (74-99) mg/dL POC Glucose (mg/dL) (75-99) mg/dL Calcium 7.7 L (8.4-10.2) mg/dL Phosphorus 4.7 H (2.5-4.5) mg/dL Magnesium 2.4 H (1.6-2.3) mg/dL Albumin 2.1 L (3.5-5.0) g/dL Crossmatch See Detail 07/15/18 Range/Units 09:54 WBC (3.8-10.6) k/uL RBC (4.30-5.90) m/uL Hgb (13.0-17.5) gm/dL Hct (39.0-53.0) % MCHC (31.0-37.0) g/dL RDW (11.5-15.5) % Plt Count (150-450) k/uL Neutrophils # (Manual) (1.3-7.7) k/uL Lymphocytes # (Manual) (1.0-4.8) k/uL Nucleated RBCs (0-0) /100 WBC Chloride (98-107) mmol/L BUN (9-20) mg/dL Creatinine (0.66-1.25) mg/dL Glucose (74-99) mg/dL POC Glucose (mg/dL) 125 H (75-99) mg/dL Calcium (8.4-10.2) mg/dL Phosphorus (2.5-4.5) mg/dL Magnesium (1.6-2.3) mg/dL Albumin (3.5-5.0) g/dL Crossmatch Microbiology - Last 24 Hours (Table) 07/13/18 10:30 Acid Fast Bacilli Smear - Final Lung - Right Acid Fast Bacilli Culture - Preliminary 07/13/18 10:30 Gram Stain - Preliminary Pleural Fluid Body Fluid Culture - Preliminary Assessment and Plan (1) Macrocytic anemia Narrative/Plan: Patient with findings of macrocytic anemia on laboratory evaluation. No signs or symptoms of GI bleeding. The patient had further fall in hemoglobin today with hemoglobin 5.4 from 7.7 previously. PEG tube was put on to suction with dark output. Plan is for EGD and colonoscopy tomorrow given prior episodes of bright red blood per rectum. Current Visit: Yes Status: Acute Priority: Medium Code(s): D53.9 - NUTRITIONAL ANEMIA, UNSPECIFIED SNOMED Code(s): 17343348 (2) Pancreatitis Narrative/Plan: History of chronic pancreatitis. Current Visit: No Status: Acute Code(s): K85.9 - ACUTE PANCREATITIS, UNSP ECIFIED * DO NOT USE * SNOMED Code(s): 33862961 (3) Oropharyngeal dysphagia Narrative/Plan: Unclear etiology, the patient is status post PEG tube placement. Current Visit: Yes Status: Acute Code(s): R13.12 - DYSPHAGIA, OROPHARYNGEAL PHASE SNOMED Code(s): 83605116 Plan: Supportive care Nothing by mouth PEG tube in place with no bleeding seen today Plan is for EGD and colonoscopy tomorrow, with GoLYTELY ordered to be given through the PEG tube and the patient nothing by mouth with dosing feeds after midnight Continue to monitor stool output, testing for Clostridium difficile negative Continue to monitor hemoglobin and hematocrit and transfuse as needed Hematology service following the patient, at this point is felt that the patient's anemia is likely multifactorial secondary to nutritional deficiencies, toxic effect of alcohol, iron deficiency etc. Gastroenterology will continue to follow, thank you for allowing us to participate in the care of the patient
[2018-07-15 16:13] LABS: Glucose,Whole Blood 142 mg/dL (75-99)
[2018-07-15 20:23] LABS: Glucose,Whole Blood 233 mg/dL (75-99)
[2018-07-15] MEDS: INSULIN DETEMIR (LEVEMIR) 100 UNIT/ML SYR SQ SCH (20:45)
[2018-07-16] MEDS: IPRATROPIUM-ALBUTEROL 3 ML NEB INHALATION SCH ×7 (00:02→23:35)
[2018-07-16] MEDS: methylPREDNISolone SOD SUCCI 40 MG/ML 1 ML VIAL IV SCH ×3 (00:55→16:30)
[2018-07-16] MEDS: INSULIN ASPART (NovoLOG) 100 UNIT/ML VIAL SQ SCH ×6 (00:55→20:45)
[2018-07-16 01:02] LABS: Glucose,Whole Blood 254 mg/dL (75-99)
[2018-07-16] MEDS: POTASSIUM ACETATE IV SCH ×12 (02:21→16:17)
[2018-07-16] MEDS: CALCIUM GLUCONATE IV SCH ×12 (02:21→16:17)
[2018-07-16] MEDS: SODIUM ACETATE IV SCH ×12 (02:21→16:17)
[2018-07-16] MEDS: [UNRECOGNIZED DRUG - OTHER] IV SCH ×12 (02:21→16:17)
[2018-07-16 04:25] LABS: Glucose,Whole Blood 186 mg/dL (75-99)
[2018-07-16] MEDS: MORPHINE SULFATE 2 MG/ML SYRINGE IVP PRN (04:33)
[2018-07-16 04:58] LABS: Anisocytosis Moderate; HCT 23.5 % (39.0-53.0); HGB 7.5 gm/dL (13.0-17.5); Hypochromasia Slight; MCH 29.5 pg (25.0-35.0); MCHC 31.9 g/dL (31.0-37.0); MCV 92.5 fL (80.0-100.0); Macrocytosis Slight; Mean Platelet Volume 9.8; Poikilocytosis Slight; RBC 2.55 m/uL (4.30-5.90); WBC 11.4 k/uL (3.8-10.6)
[2018-07-16 05:04] LABS: Platelet Count 87 k/uL (150-450)
[2018-07-16 05:19] LABS: Albumin 2.1 g/dL (3.5-5.0); Calcium 7.8 mg/dL (8.4-10.2); Magnesium 2.4 mg/dL (1.6-2.3); Phosphorus 4.7 mg/dL (2.5-4.5); Potassium 4.5 mmol/L (3.5-5.1)
--- NOTE | 2018-07-16 07:56 | XR ---
EXAMINATION TYPE: XR chest 1V portable DATE OF EXAM: 07/16/2018 Comparison: 07/15/2018 Clinical History: 68-year-old male shortness of breath Findings: Heart normal size. Small to moderate layering left pleural effusion probably trace to small the right . This is similar to possibly slightly improved from prior. Left-sided CVC tip at the mid SVC level. ACDF hardware. Impression: Small to moderate partially layering left pleural effusion and likely trace to small right effusion, similar to minimally improved from prior. Adjacent atelectasis and/or consolidation at the left base.
[2018-07-16] MEDS: LEVOTHYROXINE IVP 100 MCG/5 ML VIAL IV SCH (08:55)
[2018-07-16] MEDS: PIPERACILLIN-TAZOBACTAM 3.375 GM in SODIUM CHLORIDE 0.9% 100 ML IVPB SCH ×2 (08:55→20:51)
[2018-07-16] MEDS: PANTOPRAZOLE 40 MG/10 ML VIAL IVP SCH ×2 (08:56→20:51)
[2018-07-16 09:00] LABS: Glucose,Whole Blood 185 mg/dL (75-99)
[2018-07-16] MEDS: CALCIUM GLUCONATE 1 GM in SODIUM CHLORIDE 0.9% 100 ML IVPB SCH ×2 (11:31→20:53)
--- NOTE | 2018-07-16 11:35 | P.PN ---
Subjective Progress Note Date: 07/16/18 Principal diagnosis: Acute hypoxic respiratory failure secondary to staph aureus pneumonia requiring intubation and mechanical ventilation. This is a 68-year-old white male, known history of pancreatitis, attention, he had previous ERCP for bile duct stent with colitis and history of alcohol abuse. Patient presented to [facility] with 1 week history of worsen ing shortness of breath. Patient was noted to be anemic, and he was transfused with 2 units of packed RBCs upon presentation. He was seen by gastroenterology on consultation and he was being considered for EGD. In the meantime the patient was placed on Protonix. Patient is known to have history of alcohol abuse, drinks liquor on a daily basis, patient had previous history of bile duct stricture in 2014 and pancreatitis, requiring biliary stenting. Patient is also known to have history of thrombocytopenia and macrocytic anemia. Upon presentation, the patient was noted to have fecal occult blood test positive. The patient was admitted on 06/29, and this morning the rapid response team from the ICU and responded to the patient being hypotensive and short of breath. I was notified about the patient's ABG showing a pO2 of 87 pCO2 of 39 and pH of 7.07. His bicarb was noted to be 12. Hence I recommended immediate intubation fluids, and immediate transfer to the intensive care unit. Shortly after, the patient arrived to the ICU, and he was again noted to be hypotensive, more fluid boluses were given. Started the patient on norepinephrine and this will be titrated accordingly to a mean arterial pressure of 65 or higher. Patient was noted to be oliguric, and he likely developed acute tubular necrosis because of low blood pressure, and nephrology consultation was initiated. In the meantime the patient will need to be on broad-spectrum antibiotics for presumptive sepsis. His chest x-ray showed no evidence of infiltrate, however his urine may be infected based on the urinalysis upon admission. Patient is on Rocephin, and he is also on Zosyn. On 07/15/2018 and seeing this patient for a follow-up. After being well and doing good progress, the patient dropped his urine output yesterday and earlier this morning it was noted that there is significant drop in hemoglobin down to 5.5. At a later stage he started developing some abdominal pain and discomfort and that she'll feeds were placed on hold and the patient started having bloody output from his PEG tube which is consistent with GI bleeding, likely of an upper GI source. The patient is currently receiving total of 2 units of packed RBCs. GI was informed of this changes there were asked to come and reevaluate the patient. Currently tube is on hold. His mental status is acceptable. He is awake and alert. He is unable to swallow and his voice remains hoarse and his mouth is dry and is undergoing oral care. He underwent a right-sided thoracentesis and there was significant improvement in his overall pulmonary status and breathing following the procedure. The renal function is abnormal as the patient developed an acute GI bleed. Creatinine is up to 4.02 with a mean of 105. No fever. No chest pain.. The patient is still calm and comfortable in bed. Note that this patient was initially hospitalized for septic shock and staph pneumonia. He also developed acute kidney injury. He has previous history of alcoholism and previous history of pancreatitis and during an earlier endoscopy his bili ducts were removed. 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 He is known to have a moderate degree of mitral regurgitation, moderate pulmonary hypertension with a preserved LV function and ejection fraction of 50-55%. Patient was reevaluated today on 07/16/2018, he is mostly on 3 L nasal cannula, but refuses to keep his nasal cannula on. Comfortable, in no distress, receiving a unit of packed RBCs during my evaluation, and he is scheduled to have EGD and colonoscopy today. Hemoglobin this morning is 7.5. His BUN is 109 creatinine 3.75. Chest x-ray today showed small to moderate left pleural effusion, and trace of right sided small pleural effusion. On 07/13, patient underwent thoracentesis, and 1 L of fluid was removed. Chest x-ray this morning continues to show small left pleural effusion, and hardly any pleural effusion on the right side. Patient is comfortable, in no distress. Being followed by many consultants. But today he is undergoing EGD and colonoscopy as per GI. Objective - Vital Signs Vital signs: Vital Signs Temp 97.2 F L 07/16/18 08:37 Pulse 77 07/16/18 11:07 Resp 18 07/16/18 08:37 BP 145/77 07/16/18 08:37 Pulse Ox 93 L 07/16/18 07:03 Intake & Output 07/15/18 07/16/18 07/16/18 18:59 06:59 18:59 Intake Total 5760 2196 93 Output Total 1790 587 50 Balance 3970 1609 43 Weight 67.8 kg Intake: IV 900 1106 93 Amino Acid 5%-D15w+Lytes* 320 240 E* 1,000 ml @ 80 mls/hr IV .BY DURATION [facility] Rx#: [id number] CVP 30 36 3 Calcium Gluconate 1 gm In 100 100 Sodium Chloride 0.9% 100 ml @ 100 mls/hr IVPB BID [facility] Rx#:[id number] Dextrose 5%-0.45% NaCl 1, 100 90 10 000 ml @ 10 mls/hr IV . Q24H [facility] Rx#:[id number] Fat Emulsion 20% 250 ml @ 250 21 mls/hr IV Q24H [facility] Rx #:[id number] Piperacillin-Tazobactam 3 100 .375 gm In Sodium Chloride 0.9% 100 ml @ 25 mls/hr IVPB Q12HR [facility] Rx #:[id number] Potassium Chloride 20 meq 640 80 Sodium Acetate 20 meq Magnesium Sulfate gm 2 gm Calcium Gluconate 1 gm In Amino Acid 5%-D15w 1, 000 ml @ 80 mls/hr IV .BY DURATION [facility] Rx#: [id number] Intake, IV Titration 2640 90 Amount Dextrose 5%-0.45% NaCl 1, 10 000 ml @ 10 mls/hr IV . Q24H [facility] Rx#:[id number] Potassium Acetate 20 meq 640 80 Sodium Acetate 20 meq Calcium Gluconate 1 gm Mvi, Adult No.4 with Vit K 10 ml Trace (Conc-1Ml/ Dose) 1 ml In Amino Acid 5%-D15w 1,000 ml @ 80 mls /hr IV .BY DURATION [facility] Rx#:[id number] Sodium Chloride 0.9% 2, 2000 000 ml @ 999 mls/hr IV . Q2H1M [facility] Rx#:[id number] Oral 1000 1000 Blood Product 1220 0 Rc As-1 Unit 0 [id number] Rc As-1 Unit 310 [id number] Rc As-1 Unit 310 [id number] Output: Gastric Drainage 1550 Urine 240 587 50 Other: Voiding Method Indwelling Catheter Indwelling Catheter # Voids 0 # Bowel Movements 1 1 ABP, PAP, CO, CI - Last Documented Arterial Blood Pressure 158/56 - Exam On physical examination, patient appears comfortable in no apparent distress. HEAD: Normocephalic, atraumatic. EYES: No scleral icterus. No conjunctival injection. MOUTH: No lesions, tongue midline. NECK: Trachea midline, no gross abnormalities. CHEST: Coarse respiratory noises in all lung yi. HEART: S1-S2 appreciated. ABDOMEN: Soft, PEG tube is in place with old blood and no active bleeding seen. Bowel sounds are positive. No organomegaly. No guarding or rigidity. EXTREMITIES: No pedal edema. SKIN: No rashes, no jaundice. NEUROLOGIC: Awake and interactive. - Labs CBC & Chem 7: 07/16/18 04:47 07/16/18 04:47 Labs: Abnormal Lab Results - Last 24 Hours (Table) 07/15/18 07/15/18 07/15/18 Range/Units 05:40 12:23 14:30 WBC 11.7 H (3.8-10.6) k/uL RBC 2.70 L (4.30-5.90) m/uL Hgb 8.5 L D (13.0-17.5) gm/dL Hct 25.0 L (39.0-53.0) % RDW 20.3 H (11.5-15.5) % Plt Count 94 L (150-450) k/uL Neutrophils # 10.5 H (1.3-7.7) k/uL Lymphocytes # 0.4 L (1.0-4.8) k/uL Chloride (98-107) mmol/L BUN (9-20) mg/dL Creatinine (0.66-1.25) mg/dL Glucose (74-99) mg/dL POC Glucose (mg/dL) 128 H (75-99) mg/dL Calcium (8.4-10.2) mg/dL Phosphorus (2.5-4.5) mg/dL Magnesium (1.6-2.3) mg/dL Albumin (3.5-5.0) g/dL Crossmatch See Detail 07/15/18 07/15/18 07/16/18 Range/Units 16:11 20:11 00:49 WBC (3.8-10.6) k/uL RBC (4.30-5.90) m/uL Hgb (13.0-17.5) gm/dL Hct (39.0-53.0) % RDW (11.5-15.5) % Plt Count (150-450) k/uL Neutrophils # (1.3-7.7) k/uL Lymphocytes # (1.0-4.8) k/uL Chloride (98-107) mmol/L BUN (9-20) mg/dL Creatinine (0.66-1.25) mg/dL Glucose (74-99) mg/dL POC Glucose (mg/dL) 142 H 233 H 254 H (75-99) mg/dL Calcium (8.4-10.2) mg/dL Phosphorus (2.5-4.5) mg/dL Magnesium (1.6-2.3) mg/dL Albumin (3.5-5.0) g/dL Crossmatch 07/16/18 07/16/18 07/16/18 Range/Units 04:23 04:47 04:47 WBC 11.4 H (3.8-10.6) k/uL RBC 2.55 L (4.30-5.90) m/uL Hgb 7.5 L (13.0-17.5) gm/dL Hct 23.5 L (39.0-53.0) % RDW 20.0 H (11.5-15.5) % Plt Count 87 L (150-450) k/uL Neutrophils # (1.3-7.7) k/uL Lymphocytes # (1.0-4.8) k/uL Chloride 115 H (98-107) mmol/L BUN 109 H* (9-20) mg/dL Creatinine 3.75 H (0.66-1.25) mg/dL Glucose 174 H (74-99) mg/dL POC Glucose (mg/dL) 186 H (75-99) mg/dL Calcium 7.8 L (8.4-10.2) mg/dL Phosphorus 4.7 H (2.5-4.5) mg/dL Magnesium 2.4 H (1.6-2.3) mg/dL Albumin 2.1 L (3.5-5.0) g/dL Crossmatch 07/16/18 Range/Units 08:58 WBC (3.8-10.6) k/uL RBC (4.30-5.90) m/uL Hgb (13.0-17.5) gm/dL Hct (39.0-53.0) % RDW (11.5-15.5) % Plt Count (150-450) k/uL Neutrophils # (1.3-7.7) k/uL Lymphocytes # (1.0-4.8) k/uL Chloride (98-107) mmol/L BUN (9-20) mg/dL Creatinine (0.66-1.25) mg/dL Glucose (74-99) mg/dL POC Glucose (mg/dL) 185 H (75-99) mg/dL Calcium (8.4-10.2) mg/dL Phosphorus (2.5-4.5) mg/dL Magnesium (1.6-2.3) mg/dL Albumin (3.5-5.0) g/dL Crossmatch Microbiology - Last 24 Hours (Table) 07/13/18 10:30 Gram Stain - Preliminary Pleural Fluid Body Fluid Culture - Preliminary Assessment and Plan Assessment: Impression: 1 acute hypoxic respiratory failure secondary to staph pneumonia him a requiring intubation and mechanical ventilation. Staph aureus was MSSA. Patient remains on Zosyn. 2 upper GI bleeding, being evaluated by gastroenterology, scheduled to have EGD and colonoscopy today. 3 hypothyroidism 4 thrombocytopenia 5 acute on top of chronic kidney injury being followed by nephrology. 6 abnormal liver enzymes related to hypotension and shock liver. Improved. 7 dysphagia secondary to focal cords edema resolving. Recommendation: Continue present supportive care measures, continue to monitor the patient in the ICU, awaiting findings from endoscopies scheduled to be done today by gastroenterology. It is likely that the bleeding is upper GI in nature. Continue to monitor renal status, monitor fluids closely, transfuse as needed for hemoglobin below 7. Continue IV Protonix, and IV antibiotics. Continue to monitor platelets, and correlation profile. Patient remains relatively critically ill, and we'll continue to monitor in the ICU. Time with Patient: Less than 30
[2018-07-16 12:00] LABS: Glucose,Whole Blood 138 mg/dL (75-99)
--- NOTE | 2018-07-16 12:34 | P.PN ---
Subjective Progress Note Date: 07/16/18 Principal diagnosis: Cytopenias secondary to Infection and ETOH Liver Disease On 07/15/18 = Patients hemoglobin dropped 5.4, received PRBC, up to 8.5 later in afternoon. Today has dropped back one to 7.5. He is scheduled to undergo GI evaluation today with EGD and Colonoscopy. He is in no apparent distress during evaluation. Objective - Vital Signs Vital signs: Vital Signs Temp 97.2 F L 07/16/18 09:07 Pulse 77 07/16/18 11:07 Resp 10 L 07/16/18 11:00 BP 141/74 07/16/18 10:00 Pulse Ox 100 07/16/18 11:00 Intake & Output 07/15/18 07/16/18 07/16/18 18:59 06:59 18:59 Intake Total 5760 2196 945 Output Total 1790 587 325 Balance 3970 1609 620 Weight 67.8 kg Intake: IV 900 1106 635 Amino Acid 5%-D15w+Lytes* 320 240 E* 1,000 ml @ 80 mls/hr IV .BY DURATION [facility] Rx#: [id number] CVP 30 36 15 Calcium Gluconate 1 gm In 100 100 100 Sodium Chloride 0.9% 100 ml @ 100 mls/hr IVPB [facility]ID [facility] Rx#:[id number] Dextrose 5%-0.45% NaCl 1, 100 90 20 000 ml @ 10 mls/hr IV . Q24H [facility] Rx#:[id number] Fat Emulsion 20% 250 ml @ 250 21 mls/hr IV Q24H [facility] Rx #:[id number] Piperacillin-Tazobactam 3 100 100 .375 gm In Sodium Chloride 0.9% 100 ml @ 25 mls/hr IVPB Q12HR [facility] Rx #:[id number] Potassium Chloride 20 meq 640 400 Sodium Acetate 20 meq Magnesium Sulfate gm 2 gm Calcium Gluconate 1 gm In Amino Acid 5%-D15w 1, 000 ml @ 80 mls/hr IV .BY DURATION [facility] Rx#: [id number] Intake, IV Titration 2640 90 Amount Dextrose 5%-0.45% NaCl 1, 10 000 ml @ 10 mls/hr IV . Q24H [facility] Rx#:[id number] Potassium Acetate 20 meq 640 80 Sodium Acetate 20 meq Calcium Gluconate 1 gm Mvi, Adult No.4 with Vit K 10 ml Trace (Conc-1Ml/ Dose) 1 ml In Amino Acid 5%-D15w 1,000 ml @ 80 mls /hr IV .BY DURATION [facility] Rx#:[id number] Sodium Chloride 0.9% 2, 2000 000 ml @ 999 mls/hr IV . Q2H1M [facility] Rx#:[id number] Oral 1000 1000 Blood Product 1220 310 Rc As-1 Unit 0 [id number] Rc As-1 Unit 310 [id number] Rc As-1 Unit 310 [id number] Output: Gastric Drainage 1550 Urine 240 587 325 Other: Voiding Method Indwelling Catheter Indwelling Catheter Indwelling Catheter # Voids 0 # Bowel Movements 1 1 ABP, PAP, CO, CI - Last Documented Arterial Blood Pressure 158/56 - Exam GEN:No acute Distress, NC 3L HEAD: NC, AT NECK: Supple, No palpable adenopathy MOUTH: No lesions, No Thrush, Dry Mucous Membranes CHEST: Coarse through all yi anterior, Left Diminished greater at base than Right. No increased effort noted HEART:RRR, S1, S2 ABDOMEN: Soft, NT, ND, PEG tube is in place EXT:: No pedal edema. SKIN: No rashes, no jaundice. NEURO: Awake No Sensory or motor Deficits - Labs CBC & Chem 7: 07/16/18 04:47 07/16/18 04:47 Labs: Abnormal Lab Results - Last 24 Hours (Table) 07/15/18 07/15/18 07/15/18 Range/Units 05:40 12:23 14:30 WBC 11.7 H (3.8-10.6) k/uL RBC 2.70 L (4.30-5.90) m/uL Hgb 8.5 L D (13.0-17.5) gm/dL Hct 25.0 L (39.0-53.0) % RDW 20.3 H (11.5-15.5) % Plt Count 94 L (150-450) k/uL Neutrophils # 10.5 H (1.3-7.7) k/uL Lymphocytes # 0.4 L (1.0-4.8) k/uL Chloride (98-107) mmol/L BUN (9-20) mg/dL Creatinine (0.66-1.25) mg/dL Glucose (74-99) mg/dL POC Glucose (mg/dL) 128 H (75-99) mg/dL Calcium (8.4-10.2) mg/dL Phosphorus (2.5-4.5) mg/dL Magnesium (1.6-2.3) mg/dL Albumin (3.5-5.0) g/dL Crossmatch See Detail 07/15/18 07/15/18 07/16/18 Range/Units 16:11 20:11 00:49 WBC (3.8-10.6) k/uL RBC (4.30-5.90) m/uL Hgb (13.0-17.5) gm/dL Hct (39.0-53.0) % RDW (11.5-15.5) % Plt Count (150-450) k/uL Neutrophils # (1.3-7.7) k/uL Lymphocytes # (1.0-4.8) k/uL Chloride (98-107) mmol/L BUN (9-20) mg/dL Creatinine (0.66-1.25) mg/dL Glucose (74-99) mg/dL POC Glucose (mg/dL) 142 H 233 H 254 H (75-99) mg/dL Calcium (8.4-10.2) mg/dL Phosphorus (2.5-4.5) mg/dL Magnesium (1.6-2.3) mg/dL Albumin (3.5-5.0) g/dL Crossmatch 07/16/18 07/16/18 07/16/18 Range/Units 04:23 04:47 04:47 WBC 11.4 H (3.8-10.6) k/uL RBC 2.55 L (4.30-5.90) m/uL Hgb 7.5 L (13.0-17.5) gm/dL Hct 23.5 L (39.0-53.0) % RDW 20.0 H (11.5-15.5) % Plt Count 87 L (150-450) k/uL Neutrophils # (1.3-7.7) k/uL Lymphocytes # (1.0-4.8) k/uL Chloride 115 H (98-107) mmol/L BUN 109 H* (9-20) mg/dL Creatinine 3.75 H (0.66-1.25) mg/dL Glucose 174 H (74-99) mg/dL POC Glucose (mg/dL) 186 H (75-99) mg/dL Calcium 7.8 L (8.4-10.2) mg/dL Phosphorus 4.7 H (2.5-4.5) mg/dL Magnesium 2.4 H (1.6-2.3) mg/dL Albumin 2.1 L (3.5-5.0) g/dL Crossmatch 07/16/18 07/16/18 Range/Units 08:58 11:58 WBC (3.8-10.6) k/uL RBC (4.30-5.90) m/uL Hgb (13.0-17.5) gm/dL Hct (39.0-53.0) % RDW (11.5-15.5) % Plt Count (150-450) k/uL Neutrophils # (1.3-7.7) k/uL Lymphocytes # (1.0-4.8) k/uL Chloride (98-107) mmol/L BUN (9-20) mg/dL Creatinine (0.66-1.25) mg/dL Glucose (74-99) mg/dL POC Glucose (mg/dL) 185 H 138 H (75-99) mg/dL Calcium (8.4-10.2) mg/dL Phosphorus (2.5-4.5) mg/dL Magnesium (1.6-2.3) mg/dL Albumin (3.5-5.0) g/dL Crossmatch Microbiology - Last 24 Hours (Table) 07/13/18 10:30 Gram Stain - Preliminary Pleural Fluid Body Fluid Culture - Preliminary Assessment and Plan Plan: Assessment and Recommendations: Normocytic Anemia: - Secondary to multiple factors ?Gi Blood Loss gastric varices, underlying liver disease and possible renal disease, exacerbated with acute infection - Per nursing recent bloody stool - Acute Drop in Hgb 07/15/18 = 5.4, status Post transfusion up 8.5, this am 07/16 = 7.5 - Patient did not make urine 07/15/18 and per nephrology was given fluid bolus's, therefore partial acute drop could be related to dilution - GI plan for EGD and Colonoscopy today - 07/16/18 Acute Hypoxic Respiratory Failure Related to MSSA Pneumonia: - Pulmonary, Infectious Disease, and ICU Teams Leukocytosis: - Improved and stable, Reactive acute Illness - Iv Antibiotics - Neutrophilia with known diagnosis of MSSA Pneumonia Thrombocytopenia: - Initially resolved, trending down over past 3 days. - Now with quick drop in hemoglobin, concern for recurrent acute bleeding, GI Blood Loss - Prolonged Hospitalization with acute infection and signs of bleeding with thrombocytopenia will furhter assess for DIC - Check PT, PTT, INR, and Fibrinogen today - If Fibrinogen less than 100 may benefit Cryo if active bleeding. - platelet Count Today 87K - Secondary factor to history of ETOH Liver Disease Acute Renal Failure on Chronic Kidney Disease (Stage unknown-per Nephrology) - Nephrology is following - Anuric 07/15/18, IV Bolus's given per nephrology - On Epoetin per Nephrology Dosing Increasing Liver Transiminitis/Increased Bili - Resolved, likely Shock Liver Bilateral Pleural Effusions: - Status Post 1.2Liters Removed Via Thoracentesis on 07/13/18 (Right) Hyponatremia: Resolved Protein calorie Malnutrition: Moderate Albumin 2.1 - Continues on TPN secondary to concern of aspiration/Dysphagia/Volcal Ansley wang - Peg Tube in Place, although with scant bleeding at site of insertion Plan: - Await GI Evaluation - Monitor Coags, CBC - Check Fibrinogen and if active bleeding with Fibrinogen under 100, give Cryo Lucita MORGAN
[2018-07-16 13:02] LABS: Partial Thromboplastin Time 25.6 sec (22.0-30.0); Prothrombin Time 10.5 sec (9.0-12.0)
[2018-07-16] MEDS ORDERED: LIDOCAINE 1% INJ 10MG/ML (20 ML MDV) ONE (14:16)
[2018-07-16] MEDS ORDERED: PROPOFOL 10 MG/ML 20 ML VIAL IV ONE (14:16)
[2018-07-16] MEDS ORDERED: KETAMINE 10 MG/ML 20 ML VIAL ONE (14:16)
[2018-07-16] MEDS ORDERED: SODIUM CHLORIDE 0.9% 500 ML 500 ML IV ONE (14:19)
--- NOTE | 2018-07-16 14:32 | PN ---
PROGRESS NOTE Patient is seen for followup for acute kidney injury on top of chronic kidney disease. Patient was initially admitted to the hospital with the sepsis. He was hypotensive. He had ATN, with serum creatinine peaking at about 6.3 mg/dL. Renal function has started to improved with serum creatinine currently staying at about 3.8-4 mg/dL. 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 His serologies were negative, except C3 and C4, which were low and kidney biopsy has not been performed yet this admission as renal function has improved and currently remaining fairly stable. Patient has had issues with vocal cord dysfunction for which he has had a PEG tube placed to avoid aspiration. He has also had issues with GI bleed and his hemoglobin had dropped yesterday to 5.4 g/dL. Patient was transfused packed RBCs and the. There was no evidence of active bleeding noted on an EGD that was done when the PEG tube was placed. Urine output had dropped yesterday to about 520 mL/hour for about 8 hours, when patient was acutely anemic and it looks like it has picked up now. The patient is maintained on TPN with plans to the switch from TPN to tube feeding. This morning, patient is comfortable, awake, he is not in any acute distress. Blood pressure is 148/75, heart rate of 77 per minute. He is afebrile. Examination of the heart, S1, S2. Examination of the lungs, bilateral breath sounds are heard. Abdomen is soft, nontender. Examination of the lower extremities shows no significant edema. LABS: Show sodium 144, potassium 4.5, BUN 109, serum creatinine 3.75, calcium 7.8, phosphorus 4.7. White cell count 11.4. ASSESSMENT: 1. Acute kidney injury, acute tubular necrosis, currently improved. 2. CKD, most likely secondary to underlying chronic GN with 1.5 grams of protein with consideration for kidney biopsy down the road. Serologies have been negative except for C3, C4, which was low. 3. Gastrointestinal bleed, status post packed RBCs. The no active bleeding noted. Patient has dropped his hemoglobin previously as well and was transfused packed RBCs. 4. Vocal cord dysfunction with dysphagia and aspiration, currently n.p.o. and maintained on tube feedings. 5. Acute hypoxic respiratory failure secondary to Staphylococcus pneumonia, currently status post active extubation and doing well. PLAN: Continue the TPN and switch to tube feeding when the patient will start his feedings. He is scheduled for EGD today. Continue to avoid nephrotoxic agents. MMODL / IJN: [id number] /
--- NOTE | 2018-07-16 15:38 | P.PCN ---
Date of Procedure: 07/16/18 Description of Procedure: Brief history: 68-year-old gentleman admitted with shortness of breath 2-3 days with exertion. Past medical history of EtOH abuse drinks liquor beer on a daily basis, distal common bile duct stricture 2015 pancreatitis with previous biliary stenting, thrombocytopenia, macrocytic anemia. Initially the gastroenterology team was called to see the patient due to concern over coffee-ground emesis from the NG tube which was placed for enteral nutrition and pills when the patient was intubated. The patient had no further signs or symptoms of GI bleeding and hemoglobin remained stable. However, after extubation the patient has been unable to swallow with severe oropharyngeal dysphagia noted on swallow evaluation with modified barium swallow. The patient had a PEG tube placed. However he subsequently was noted to have maroon color and dark stool. Fall in hemoglobin was initially thought to be secondary to bleeding from the PEG site, however hemostasis was eventually achieved and the patient continued to have signs and symptoms GI bleeding. Decision was made for further endoscopic evaluation. Procedure performed: Esophagogastroduodenoscopy with biliary stent removal Colonoscopy Estimated blood loss: Minimal. Preoperative diagnosis: Anemia of acute blood loss, hematochezia, melena Anesthesia: MAC Procedure: After informed consent was obtained from the patient was brought into the endoscopy unit and IV sedation was administered by anesthesia under continuous monitoring. Initially upper endoscopy was done. The Olympus GF 190 video endoscope was inserted inserted into the mouth and esophagus intubated without any difficulty and was gradually advanced into the stomach and duodenum and carefully examined. The bulb and second part of the duodenum appeared normal. The patient had a plastic stent which was previously placed noted per chart and from the ampulla. The scope was then withdrawn into the stomach adequately insufflated with air and upon careful examination the antrum and body, cardia and fundus appeared normal. The scope was then withdrawn into the esophagus. The GE junction was located at 39 cm to the incisors. It appeared regular with no erythema erosions or ulcerations, previously noted esophagitis was improved likely after initiation of PPI therapy. The scope was then advanced back into the second portion of the duodenum and plastic biliary stent was snared and then removed as the scope was withdrawn through the stomach into the esophagus and out of the patient's mouth. Patient tolerated the procedure well. At this time the patient continued to remain sedation. Initial digital rectal examination was normal. Olympus CF 190 video colonoscope was then inserted into the rectum and gradually advanced to the cecum without any difficulty. Careful examination was performed as the scope was gradually being withdrawn. The prep was fair with a large amount of old blood noted throughout the colon. The visualized cecum, ascending colon, transverse colon, descending colon, sigmoid colon and rectum appeared normal. 2 diminutive hepatic flexure polyps were noted, however they were not removed in the setting of recent GI bleeding. Mild internal hemorrhoids were noted. Patient tolerated the procedure well. Impression: 1. No old blood or active bleeding noted on EGD. Old blood noted throughout the entire colon with no active bleeding or source of bleeding noted. 2. Biliary stent was snared and removed. 3. Diminutive hepatic flexure polyps not removed in the setting of recent GI bleeding. 4. Mild internal hemorrhoids. 5. Fair prep. Recommendations: Findings of this examination were discussed with the patient as well as the nursing team. Okay to resume tube feeds. Continue to monitor hemoglobin and hematocrit and transfuse as needed. No plans for further endoscopy at this time. If patient has further signs or symptoms of GI bleeding can consider push enteroscopy, however at this time likely source of GI bleeding is from a small bowel source such as an AVM, however video capsule endoscopy is precluded given the patient's inability to swallow.
[2018-07-16] MEDS: ERGOCALCIFEROL 50,000 UNIT CAP PO SCH (15:52)
[2018-07-16] MEDS: FAT EMULSION 20% 250 ML IV SCH (15:52)
[2018-07-16 16:31] LABS: Glucose,Whole Blood 156 mg/dL (75-99)
[2018-07-16 20:20] LABS: Glucose,Whole Blood 239 mg/dL (75-99)
--- NOTE | 2018-07-16 20:40 | PN ---
PROGRESS NOTE DATE OF SERVICE: 07/16/2018 PRESENTING COMPLAINT: Tired. INTERVAL HISTORY: This patient remains in the ICU with multiple problems, initially presenting with pneumonia, UTI, metabolic acidosis, acute kidney injury, history of alcoholism. Patient initially was on the ventilator, extubated on July 03, then had a BiPAP. He was moved out of the ICU and readmitted after bowel movement. Patient remains on TPN lipids. Patient did get another unit of blood this morning; has received a total of 9 units by now. The patient did have a PEG tube in place; also status post thoracentesis. Telemetry shows sinus rhythm. The patient is more awake. Urine output dropped over the weekend; has picked up now to about about 30-40 mL/hour. On nasal cannula at 2 L. The patient did undergo EGD and colonoscopy today; essentially unremarkable, with some old blood in the colon. REVIEW OF SYSTEMS: Done for constitutional, cardiovascular, GI, pulmonary; relevant findings as above. CURRENT MEDICATIONS: Reviewed. They include TPN lipids, IV Zosyn. PHYSICAL EXAMINATION: Afebrile. Pulse 85, respiration 18, blood pressure 143/69, pulse ox 99% on 2 L. GENERAL APPEARANCE: Lying in bed. Awake. Answering questions. EYES: Pupils equal. Conjunctivae pale. HEENT: External appearance of nose and ears normal. Oral cavity mucous membranes moist. NECK: JVD unable to assess. Mass not palpable. RESPIRATORY: Effort increased. LUNGS: Decreased breath sounds. CARDIOVASCULAR: First and second sounds normal. No edema. ABDOMEN: Soft, non-tender. Liver and spleen not palpable. PEG tube in place. PSYCHIATRY: Awake. Answering simple questions. INVESTIGATIONS: White count 11.4, hemoglobin 7.5, platelets 87, potassium 4.5. BUN 109, creatinine 3.75. Albumin 2.1. ASSESSMENT: 1. Pneumonia, possibly aspiration. 2. Acute metabolic encephalopathy, improved. 3. Acute hypoxic respiratory failure, status post ventilator support, currently on nasal cannula 2 L. 4. Pneumonia with Staphylococcus aureus. 5. Severe esophagitis. 6. Acute hypernatremia from free water deficit, now improved. 7. Metabolic acidosis. 8. Hypotensive shock from free water deficit and from septic shock. 9. Acute kidney injury, likely from acute tubular necrosis, slow to respond. 10.Acute gastrointestinal bleed. The patient has received a total of 9 units of blood. 11.Acute blood loss anemia, both from gastrointestinal bleed and also bleeding around the PEG tube site. 12.Hypothyroidism. 13.Thrombocytopenia, likely multifactorial sepsis. 14.PEG tube. 15.Right pleural effusion, status post thoracentesis on July 13. 16.CODE STATUS: FULL CODE. PLAN: Patient did get a unit of blood today, status post EGD and colonoscopy. Patient is probably having small bowel bleeding. TPN lipids are to continue. Hopefully patient can be started on clear liquids shortly prognosis remains guarded. MMODL / IJN: [id number] /
[2018-07-16] MEDS: INSULIN DETEMIR (LEVEMIR) 100 UNIT/ML SYR SQ SCH (20:51)
[2018-07-16 23:48] LABS: Glucose,Whole Blood 294 mg/dL (75-99)
[2018-07-17] MEDS: INSULIN ASPART (NovoLOG) 100 UNIT/ML VIAL SQ SCH ×7 (00:13→23:56)
[2018-07-17] MEDS: methylPREDNISolone SOD SUCCI 40 MG/ML 1 ML VIAL IV SCH ×4 (00:14→23:59)
[2018-07-17] MEDS: MORPHINE SULFATE 2 MG/ML SYRINGE IVP PRN ×3 (01:52→21:42)
[2018-07-17] MEDS: IPRATROPIUM-ALBUTEROL 3 ML NEB INHALATION SCH ×6 (03:29→23:51)
[2018-07-17 04:16] LABS: Glucose,Whole Blood 217 mg/dL (75-99)
[2018-07-17 04:47] LABS: Anisocytosis Slight; Basophils % (A) 0 %; Eosinophils % (A) 0 %; HCT 26.3 % (39.0-53.0); HGB 8.6 gm/dL (13.0-17.5); Hypochromasia Slight; Lymphocytes # (A) 0.3 k/uL (1.0-4.8); Lymphocytes % (A) 3 %; MCH 30.1 pg (25.0-35.0); MCHC 32.5 g/dL (31.0-37.0); MCV 92.7 fL (80.0-100.0); Macrocytosis Slight; Mean Platelet Volume 10.7; Monocytes # (A) 0.6 k/uL (0-1.0); Monocytes % (A) 5 %; Neutrophils # (A) 9.9 k/uL (1.3-7.7); Neutrophils % (A) 90 %; Platelet Count 85 k/uL (150-450); Poikilocytosis Slight; RBC 2.84 m/uL (4.30-5.90); RDW 19.1 % (11.5-15.5)
[2018-07-17 04:56] LABS: Ionized Calcium 5.1 mg/dL (4.5-5.3)
[2018-07-17 05:03] LABS: Calcium 8.3 mg/dL (8.4-10.2); Phosphorus 3.5 mg/dL (2.5-4.5); Potassium 4.3 mmol/L (3.5-5.1)
[2018-07-17] MEDS: CALCIUM GLUCONATE IV SCH ×12 (05:12→17:25)
[2018-07-17] MEDS: POTASSIUM ACETATE IV SCH ×12 (05:12→17:25)
[2018-07-17] MEDS: SODIUM ACETATE IV SCH ×12 (05:12→17:25)
[2018-07-17] MEDS: [UNRECOGNIZED DRUG - OTHER] IV SCH ×12 (05:12→17:25)
[2018-07-17] MEDS: PIPERACILLIN-TAZOBACTAM 3.375 GM in SODIUM CHLORIDE 0.9% 100 ML IVPB SCH ×2 (07:57→20:32)
[2018-07-17] MEDS: LEVOTHYROXINE IVP 100 MCG/5 ML VIAL IV SCH (07:58)
[2018-07-17] MEDS: PANTOPRAZOLE 40 MG/10 ML VIAL IVP SCH ×2 (07:58→20:32)
[2018-07-17 08:10] LABS: Glucose,Whole Blood 140 mg/dL (75-99)
--- NOTE | 2018-07-17 09:16 | XR ---
EXAMINATION TYPE: XR chest 1V portable DATE OF EXAM: 07/17/2018 COMPARISON: 07/16/2018 INDICATION: Shortness of breath TECHNIQUE: Single frontal view of the chest is obtained. FINDINGS: The heart size is upper limits of normal for size. The pulmonary vasculature is normal. Retrocardiac infiltrate is present. Small left pleural effusion is likely present. Mild infiltrate is at the posterior right base. Findings are stable over the interval A left central venous catheter is present with tip in this superior vena cava region. EKG leads overl ie the chest. IMPRESSION: 1. Retrocardiac infiltrate with small bilateral pleural effusions. Exam appears stable from compariso n.
[2018-07-17] MEDS: CALCIUM GLUCONATE 1 GM in SODIUM CHLORIDE 0.9% 100 ML IVPB SCH ×2 (10:18→20:35)
--- NOTE | 2018-07-17 10:19 | P.PN ---
Subjective Patient is seen in follow-up for acute kidney injury. Renal function is gradually improving. Creatinine 3.53 today. He is noted to have proteinuria along with low complement levels and will need a kidney biopsy down the road. Currently resting in bed. He is frustrated with long hospital stay. Currently maintained on TPN. Denies chest pain or shortness of breath. Vital signs are stable. General: The patient appeared well nourished and normally developed. HEENT: Head exam is unremarkable. Neck is without jugular venous distension. LUNGS: Breath sounds decreased. HEART: Rate and Rhythm are regular. First and second heart sounds normal. No murmurs, rubs or gallops. ABDOMEN: Abdominal exam reveals normal bowel sounds. Non-tender and non- distended. No evidence of peritonitis. EXTREMITITES: No clubbing, cyanosis, or edema. Objective - Vital Signs Vital signs: Vital Signs Temp 98.1 F 07/17/18 00:00 Pulse 85 07/17/18 08:00 Resp 20 07/17/18 08:00 BP 152/84 07/17/18 08:00 Pulse Ox 95 07/17/18 08:00 Intake & Output 07/16/18 07/17/18 07/17/18 18:59 06:59 18:59 Intake Total 3576 1113 276 Output Total 655 660 200 Balance 2921 453 76 Weight 68 kg Intake: IV 1366 153 116 .9 Normal Saline 100 10 CVP 36 33 6 Calcium Gluconate 1 gm In 100 Sodium Chloride 0.9% 100 ml @ 100 mls/hr IVPB BID [facility] Rx#:[id number] Dextrose 5%-0.45% NaCl 1, 80 20 000 ml @ 10 mls/hr IV . Q24H [facility] Rx#:[id number] Fat Emulsion 20% 250 ml @ 250 21 mls/hr IV Q24H [facility] Rx #:[id number] Piperacillin-Tazobactam 3 100 100 .375 gm In Sodium Chloride 0.9% 100 ml @ 25 mls/hr IVPB Q12HR [facility] Rx #:[id number] Potassium Chloride 20 meq 400 Sodium Acetate 20 meq Magnesium Sulfate gm 2 gm Calcium Gluconate 1 gm In Amino Acid 5%-D15w 1, 000 ml @ 80 mls/hr IV .BY DURATION [facility] Rx#: [id number] Intake, IV Titration 1590 960 160 Amount Potassium Acetate 20 meq 1030 Sodium Acetate 20 meq Calcium Gluconate 1 gm In Amino Acid 5%-D15w 1,000 ml @ 80 mls/hr IV .BY DURATION [facility] Rx#: [id number] Potassium Acetate 20 meq 560 960 160 Sodium Acetate 20 meq Calcium Gluconate 1 gm Mvi, Adult No.4 with Vit K 10 ml Trace (Conc-1Ml/ Dose) 1 ml In Amino Acid 5%-D15w 1,000 ml @ 80 mls /hr IV .BY DURATION [facility] Rx#:[id number] Blood Product 620 Rc As-1 Unit 310 [id number] Output: Urine 655 660 200 Other: Voiding Method Indwelling Catheter Indwelling Catheter Indwelling Catheter # Voids 0 0 # Bowel Movements 1 ABP, PAP, CO, CI - Last Documented Arterial Blood Pressure 158/56 - Labs CBC & Chem 7: 07/17/18 04:38 07/17/18 04:38 Labs: Abnormal Lab Results - Last 24 Hours (Table) 07/15/18 07/16/18 07/16/18 Range/Units 05:40 11:58 16:30 WBC (3.8-10.6) k/uL RBC (4.30-5.90) m/uL Hgb (13.0-17.5) gm/dL Hct (39.0-53.0) % RDW (11.5-15.5) % Plt Count (150-450) k/uL Neutrophils # (1.3-7.7) k/uL Lymphocytes # (1.0-4.8) k/uL Chloride (98-107) mmol/L BUN (9-20) mg/dL Creatinine (0.66-1.25) mg/dL Glucose (74-99) mg/dL POC Glucose (mg/dL) 138 H 156 H (75-99) mg/dL Calcium (8.4-10.2) mg/dL Crossmatch See Detail 07/16/18 07/16/18 07/17/18 Range/Units 20:18 23:46 04:15 WBC (3.8-10.6) k/uL RBC (4.30-5.90) m/uL Hgb (13.0-17.5) gm/dL Hct (39.0-53.0) % RDW (11.5-15.5) % Plt Count (150-450) k/uL Neutrophils # (1.3-7.7) k/uL Lymphocytes # (1.0-4.8) k/uL Chloride (98-107) mmol/L BUN (9-20) mg/dL Creatinine (0.66-1.25) mg/dL Glucose (74-99) mg/dL POC Glucose (mg/dL) 239 H 294 H 217 H (75-99) mg/dL Calcium (8.4-10.2) mg/dL Crossmatch 07/17/18 07/17/18 07/17/18 Range/Units 04:38 04:38 08:08 WBC 11.0 H (3.8-10.6) k/uL RBC 2.84 L (4.30-5.90) m/uL Hgb 8.6 L (13.0-17.5) gm/dL Hct 26.3 L (39.0-53.0) % RDW 19.1 H (11.5-15.5) % Plt Count 85 L (150-450) k/uL Neutrophils # 9.9 H (1.3-7.7) k/uL Lymphocytes # 0.3 L (1.0-4.8) k/uL Chloride 114 H (98-107) mmol/L BUN 107 H* (9-20) mg/dL Creatinine 3.53 H (0.66-1.25) mg/dL Glucose 188 H (74-99) mg/dL POC Glucose (mg/dL) 140 H (75-99) mg/dL Calcium 8.3 L (8.4-10.2) mg/dL Crossmatch Microbiology - Last 24 Hours (Table) 07/13/18 10:30 Gram Stain - Preliminary Pleural Fluid Body Fluid Culture - Preliminary Assessment and Plan Plan: Assessment: 1. Acute kidney injury secondary to ATN. There is also concern for acute GN as he does have sub-nephrotic range proteinuria along with low complement levels. Renal function gradually improving - cr 3.53 today. 2. 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 Currently on TPN. 3. 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 Baseline creatinine in the range of 1.8-2. 4. Metabolic acidosis secondary to acute kidney injury. Stable. 5. Hypernatremia secondary to lack of oral water intake. Stable. 6. Staph aureus pneumonia. Maintained on antibiotics. 7. Anemia of chronic kidney disease maintained on Aranesp. Status post blood transfusion. No active bleeding noted at this time. Status post EGD and colonoscopy on July 16 which revealed no active bleeding. Plan: Maintain TPN. PEG tube feeding to be resumed today. Avoid nephrotoxins. Patient will need a kidney biopsy down the road.
--- NOTE | 2018-07-17 10:46 | P.PN ---
Subjective Progress Note Date: 07/17/18 Principal diagnosis: GI bleed. Anemia. History chronic pancreatitis. Oropharyngeal dysphagia. Status post EGD colonoscopy no evidence of active bleeding secondary biliary stent removed yesterday. No GI bleeding 24 hours. Platelet 85,000. Hemoglobin 8.6. Objective - Vital Signs Vital signs: Vital Signs Temp 98.1 F 07/17/18 00:00 Pulse 85 07/17/18 08:00 Resp 20 07/17/18 08:00 BP 152/84 07/17/18 08:00 Pulse Ox 95 07/17/18 08:00 Intake & Output 07/16/18 07/17/18 07/17/18 18:59 06:59 18:59 Intake Total 3576 1113 276 Output Total 655 660 200 Balance 2921 453 76 Weight 68 kg 68 kg Intake: IV 1366 153 116 .9 Normal Saline 100 10 CVP 36 33 6 Calcium Gluconate 1 gm In 100 Sodium Chloride 0.9% 100 ml @ 100 mls/hr IVPB BID [facility] Rx#:[id number] Dextrose 5%-0.45% NaCl 1, 80 20 000 ml @ 10 mls/hr IV . Q24H [facility] Rx#:[id number] Fat Emulsion 20% 250 ml @ 250 21 mls/hr IV Q24H [facility] Rx #:[id number] Piperacillin-Tazobactam 3 100 100 .375 gm In Sodium Chloride 0.9% 100 ml @ 25 mls/hr IVPB Q12HR [facility] Rx #:[id number] Potassium Chloride 20 meq 400 Sodium Acetate 20 meq Magnesium Sulfate gm 2 gm Calcium Gluconate 1 gm In Amino Acid 5%-D15w 1, 000 ml @ 80 mls/hr IV .BY DURATION [facility] Rx#: [id number] Intake, IV Titration 1590 960 160 Amount Potassium Acetate 20 meq 1030 Sodium Acetate 20 meq Calcium Gluconate 1 gm In Amino Acid 5%-D15w 1,000 ml @ 80 mls/hr IV .BY DURATION [facility] Rx#: [id number] Potassium Acetate 20 meq 560 960 160 Sodium Acetate 20 meq Calcium Gluconate 1 gm Mvi, Adult No.4 with Vit K 10 ml Trace (Conc-1Ml/ Dose) 1 ml In Amino Acid 5%-D15w 1,000 ml @ 80 mls /hr IV .BY DURATION [facility] Rx#:[id number] Blood Product 620 Rc As-1 Unit 310 [id number] Output: Urine 655 660 200 Other: Voiding Method Indwelling Catheter Indwelling Catheter Indwelling Catheter # Voids 0 0 # Bowel Movements 1 ABP, PAP, CO, CI - Last Documented Arterial Blood Pressure 158/56 - Exam General appearance: The patient is alert, oriented, in no acute distress. HET: Head is normocephalic and atraumatic. Pupils are equal and reactive. Oropharynx is clear without lesions. Neck: Supple without lymphadenopathy. Trachea midline. Heart: S1 S2. Regular rate and rhythm. Lungs: No crackles or wheezes are heard. Abdomen: Soft, nontender PEG tube without bleeding receiving tube feeds. Normal bowel sounds. No peritoneal signs. No palpable organomegaly or masses. Extremities: Normal skin color and turgor. No cyanosis, rash, ulceration, clubbing, or edema. Radial and pedal pulses are 2/4 bilaterally. Neurological: No focal deficits. Strength and sensation are grossly intact. - Labs CBC & Chem 7: 07/17/18 04:38 07/17/18 04:38 Labs: Abnormal Lab Results - Last 24 Hours (Table) 07/15/18 07/16/18 07/16/18 Range/Units 05:40 11:58 16:30 WBC (3.8-10.6) k/uL RBC (4.30-5.90) m/uL Hgb (13.0-17.5) gm/dL Hct (39.0-53.0) % RDW (11.5-15.5) % Plt Count (150-450) k/uL Neutrophils # (1.3-7.7) k/uL Lymphocytes # (1.0-4.8) k/uL Chloride (98-107) mmol/L BUN (9-20) mg/dL Creatinine (0.66-1.25) mg/dL Glucose (74-99) mg/dL POC Glucose (mg/dL) 138 H 156 H (75-99) mg/dL Calcium (8.4-10.2) mg/dL Crossmatch See Detail 07/16/18 07/16/18 07/17/18 Range/Units 20:18 23:46 04:15 WBC (3.8-10.6) k/uL RBC (4.30-5.90) m/uL Hgb (13.0-17.5) gm/dL Hct (39.0-53.0) % RDW (11.5-15.5) % Plt Count (150-450) k/uL Neutrophils # (1.3-7.7) k/uL Lymphocytes # (1.0-4.8) k/uL Chloride (98-107) mmol/L BUN (9-20) mg/dL Creatinine (0.66-1.25) mg/dL Glucose (74-99) mg/dL POC Glucose (mg/dL) 239 H 294 H 217 H (75-99) mg/dL Calcium (8.4-10.2) mg/dL Crossmatch 07/17/18 07/17/18 07/17/18 Range/Units 04:38 04:38 08:08 WBC 11.0 H (3.8-10.6) k/uL RBC 2.84 L (4.30-5.90) m/uL Hgb 8.6 L (13.0-17.5) gm/dL Hct 26.3 L (39.0-53.0) % RDW 19.1 H (11.5-15.5) % Plt Count 85 L (150-450) k/uL Neutrophils # 9.9 H (1.3-7.7) k/uL Lymphocytes # 0.3 L (1.0-4.8) k/uL Chloride 114 H (98-107) mmol/L BUN 107 H* (9-20) mg/dL Creatinine 3.53 H (0.66-1.25) mg/dL Glucose 188 H (74-99) mg/dL POC Glucose (mg/dL) 140 H (75-99) mg/dL Calcium 8.3 L (8.4-10.2) mg/dL Crossmatch Microbiology - Last 24 Hours (Table) 07/13/18 10:30 Gram Stain - Preliminary Pleural Fluid Body Fluid Culture - Preliminary Assessment and Plan (1) GIB (gastrointestinal bleeding) Narrative/Plan: Status post EGD colonoscopy removal of second biliary stent no obvious evidence of active bleeding or bleeding sources possible small bowel source resolved. Current Visit: Yes Status: Acute Code(s): K92.2 - GASTROINTESTINAL HEMORRHAGE, UNSPECIFIED SNOMED Code(s): 66925618 (2) Macrocytic anemia Current Visit: Yes Status: Acute Priority: Medium Code(s): D53.9 - NUTRITIONAL ANEMIA, UNSPECIFIED SNOMED Code(s): 10559427 (3) MUMTAZ (acute kidney injury) Current Visit: Yes Status: Acute Code(s): N17.9 - ACUTE KIDNEY FAILURE, UNSPECIFIED SNOMED Code(s): 04689554 (4) Acute blood loss anemia Current Visit: Yes Status: Acute Code(s): D62 - ACUTE POSTHEMORRHAGIC ANEMIA SNOMED Code(s): 771682506 (5) Oropharyngeal dysphagia Current Visit: Yes Status: Acute Code(s): R13.12 - DYSPHAGIA, OROPHARYNGEAL PHASE SNOMED Code(s): 20585587 (6) Pancreatitis Current Visit: No Status: Acute Code(s): K85.9 - ACUTE PANCREATITIS, UNS PECIFIED * DO NOT USE * SNOMED Code(s): 33182998 Plan: 1. Discharge planning. Continue GI prophylaxis. CBC monitoring. Continue tube feeds as directed. We'll follow as needed. Call GI service for questions or concerns. Assessment and plan a care discussed with Dr. Bean
[2018-07-17 11:56] LABS: Glucose,Whole Blood 148 mg/dL (75-99)
--- NOTE | 2018-07-17 12:27 | P.PN ---
Subjective Progress Note Date: 07/17/18 Principal diagnosis: Acute hypoxic respiratory failure secondary to staph aureus pneumonia requiring intubation and mechanical ventilation. This is a 68-year-old white male, known history of pancreatitis, attention, he had previous ERCP for bile duct stent with colitis and history of alcohol abuse. Patient presented to [facility] with 1 week history of worsen ing shortness of breath. Patient was noted to be anemic, and he was transfused with 2 units of packed RBCs upon presentation. He was seen by gastroenterology on consultation and he was being considered for EGD. In the meantime the patient was placed on Protonix. Patient is known to have history of alcohol abuse, drinks liquor on a daily basis, patient had previous history of bile duct stricture in 2014 and pancreatitis, requiring biliary stenting. Patient is also known to have history of thrombocytopenia and macrocytic anemia. Upon presentation, the patient was noted to have fecal occult blood test positive. The patient was admitted on 06/29, and this morning the rapid response team from the ICU and responded to the patient being hypotensive and short of breath. I was notified about the patient's ABG showing a pO2 of 87 pCO2 of 39 and pH of 7.07. His bicarb was noted to be 12. Hence I recommended immediate intubation fluids, and immediate transfer to the intensive care unit. Shortly after, the patient arrived to the ICU, and he was again noted to be hypotensive, more fluid boluses were given. Started the patient on norepinephrine and this will be titrated accordingly to a mean arterial pressure of 65 or higher. Patient was noted to be oliguric, and he likely developed acute tubular necrosis because of low blood pressure, and nephrology consultation was initiated. In the meantime the patient will need to be on broad-spectrum antibiotics for presumptive sepsis. His chest x-ray showed no evidence of infiltrate, however his urine may be infected based on the urinalysis upon admission. Patient is on Rocephin, and he is also on Zosyn. On 07/15/2018 and seeing this patient for a follow-up. After being well and doing good progress, the patient dropped his urine output yesterday and earlier this morning it was noted that there is significant drop in hemoglobin down to 5.5. At a later stage he started developing some abdominal pain and discomfort and that she'll feeds were placed on hold and the patient started having bloody output from his PEG tube which is consistent with GI bleeding, likely of an upper GI source. The patient is currently receiving total of 2 units of packed RBCs. GI was informed of this changes there were asked to come and reevaluate the patient. Currently tube is on hold. His mental status is acceptable. He is awake and alert. He is unable to swallow and his voice remains hoarse and his mouth is dry and is undergoing oral care. He underwent a right-sided thoracentesis and there was significant improvement in his overall pulmonary status and breathing following the procedure. The renal function is abnormal as the patient developed an acute GI bleed. Creatinine is up to 4.02 with a mean of 105. No fever. No chest pain.. The patient is still calm and comfortable in bed. Note that this patient was initially hospitalized for septic shock and staph pneumonia. He also developed acute kidney injury. He has previous history of alcoholism and previous history of pancreatitis and during an earlier endoscopy his bili ducts were removed. 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 He is known to have a moderate degree of mitral regurgitation, moderate pulmonary hypertension with a preserved LV function and ejection fraction of 50-55%. Patient was reevaluated today on 07/16/2018, he is mostly on 3 L nasal cannula, but refuses to keep his nasal cannula on. Comfortable, in no distress, receiving a unit of packed RBCs during my evaluation, and he is scheduled to have EGD and colonoscopy today. Hemoglobin this morning is 7.5. His BUN is 109 creatinine 3.75. Chest x-ray today showed small to moderate left pleural effusion, and trace of right sided small pleural effusion. On 07/13, patient underwent thoracentesis, and 1 L of fluid was removed. Chest x-ray this morning continues to show small left pleural effusion, and hardly any pleural effusion on the right side. Patient is comfortable, in no distress. Being followed by many consultants. But today he is undergoing EGD and colonoscopy as per GI. Reevaluated today on 07/17/2018, remains in the ICU, he is status post colonoscopy and EGD and there was no evidence of any active bleeding. Patient seems to be comfortable, in no distress, his hemoglobin is 8.6 today. Since admission the patient received a total of 9 units of packed RBCs. GI is r ecommending starting tube feeding again via PEG tube. His acute kidney injury seems to be gradually improving. Creatinine is 3.53 today. However the soil and plant scientist is recommending kidney biopsy in the future. He is concerned about the possibility of acute glomerulonephritis mostly because of his proteinuria and low complement levels. Chest x-ray continues to show good signs retrocardiac infiltrate and possibly left-sided parapneumonic pleural effusion. I will recommend ultrasound of the chest, May have to consider left-sided thoracentesis. Objective - Vital Signs Vital signs: Vital Signs Temp 97.5 F L 07/17/18 12:00 Pulse 96 07/17/18 12:00 Resp 23 07/17/18 12:00 BP 170/95 07/17/18 12:00 Pulse Ox 94 L 07/17/18 12:00 Intake & Output 07/16/18 07/17/18 07/17/18 18:59 06:59 18:59 Intake Total 3576 1113 978 Output Total 655 660 475 Balance 2921 453 503 Weight 68 kg 68 kg Intake: IV 1366 153 238 .9 Normal Saline 100 20 CVP 36 33 18 Calcium Gluconate 1 gm In 100 100 Sodium Chloride 0.9% 100 ml @ 100 mls/hr IVPB BID [facility] Rx#:[id number] Dextrose 5%-0.45% NaCl 1, 80 20 000 ml @ 10 mls/hr IV . Q24H [facility] Rx#:[id number] Fat Emulsion 20% 250 ml @ 250 21 mls/hr IV Q24H [facility] Rx #:[id number] Piperacillin-Tazobactam 3 100 100 .375 gm In Sodium Chloride 0.9% 100 ml @ 25 mls/hr IVPB Q12HR [facility] Rx #:[id number] Potassium Chloride 20 meq 400 Sodium Acetate 20 meq Magnesium Sulfate gm 2 gm Calcium Gluconate 1 gm In Amino Acid 5%-D15w 1, 000 ml @ 80 mls/hr IV .BY DURATION [facility] Rx#: [id number] Intake, IV Titration 1590 960 730 Amount Fat Emulsion 20% 250 ml @ 250 21 mls/hr IV Q24H [facility] Rx #:[id number] Potassium Acetate 20 meq 1030 Sodium Acetate 20 meq Calcium Gluconate 1 gm In Amino Acid 5%-D15w 1,000 ml @ 80 mls/hr IV .BY DURATION [facility] Rx#: [id number] Potassium Acetate 20 meq 560 960 480 Sodium Acetate 20 meq Calcium Gluconate 1 gm Mvi, Adult No.4 with Vit K 10 ml Trace (Conc-1Ml/ Dose) 1 ml In Amino Acid 5%-D15w 1,000 ml @ 80 mls /hr IV .BY DURATION [facility] Rx#:[id number] Tube Feeding 10 Blood Product 620 Rc As-1 Unit 310 [id number] Output: Urine 655 660 475 Other: Voiding Method Indwelling Catheter Indwelling Catheter Indwelling Catheter # Voids 0 0 # Bowel Movements 1 ABP, PAP, CO, CI - Last Documented Arterial Blood Pressure 158/56 - Exam GEN:physical examination, patient appears comfortable in no apparent distress. HEAD: Normocephalic, atraumatic. EYES: No scleral icterus. No conjunctival injection. MOUTH: No lesions, tongue midline. NECK: Trachea midline, no gross abnormalities. CHEST: Coarse respiratory noises in all lung yi. HEART: S1-S2 appreciated. ABDOMEN: Soft, PEG tube is in place with old blood and no active bleeding seen. Bowel sounds are positive. No organomegaly. No guarding or rigidity. EXTREMITIES: No pedal edema. SKIN: No rashes, no jaundice. NEUROLOGIC: Awake and interactive. - Labs CBC & Chem 7: 07/17/18 04:38 07/17/18 04:38 Labs: Abnormal Lab Results - Last 24 Hours (Table) 07/16/18 07/16/18 07/16/18 Range/Units 16:30 20:18 23:46 WBC (3.8-10.6) k/uL RBC (4.30-5.90) m/uL Hgb (13.0-17.5) gm/dL Hct (39.0-53.0) % RDW (11.5-15.5) % Plt Count (150-450) k/uL Neutrophils # (1.3-7.7) k/uL Lymphocytes # (1.0-4.8) k/uL Chloride (98-107) mmol/L BUN (9-20) mg/dL Creatinine (0.66-1.25) mg/dL Glucose (74-99) mg/dL POC Glucose (mg/dL) 156 H 239 H 294 H (75-99) mg/dL Calcium (8.4-10.2) mg/dL 07/17/18 07/17/18 07/17/18 Range/Units 04:15 04:38 04:38 WBC 11.0 H (3.8-10.6) k/uL RBC 2.84 L (4.30-5.90) m/uL Hgb 8.6 L (13.0-17.5) gm/dL Hct 26.3 L (39.0-53.0) % RDW 19.1 H (11.5-15.5) % Plt Count 85 L (150-450) k/uL Neutrophils # 9.9 H (1.3-7.7) k/uL Lymphocytes # 0.3 L (1.0-4.8) k/uL Chloride 114 H (98-107) mmol/L BUN 107 H* (9-20) mg/dL Creatinine 3.53 H (0.66-1.25) mg/dL Glucose 188 H (74-99) mg/dL POC Glucose (mg/dL) 217 H (75-99) mg/dL Calcium 8.3 L (8.4-10.2) mg/dL 07/17/18 07/17/18 Range/Units 08:08 11:55 WBC (3.8-10.6) k/uL RBC (4.30-5.90) m/uL Hgb (13.0-17.5) gm/dL Hct (39.0-53.0) % RDW (11.5-15.5) % Plt Count (150-450) k/uL Neutrophils # (1.3-7.7) k/uL Lymphocytes # (1.0-4.8) k/uL Chloride (98-107) mmol/L BUN (9-20) mg/dL Creatinine (0.66-1.25) mg/dL Glucose (74-99) mg/dL POC Glucose (mg/dL) 140 H 148 H (75-99) mg/dL Calcium (8.4-10.2) mg/dL Microbiology - Last 24 Hours (Table) 07/13/18 10:30 Gram Stain - Preliminary Pleural Fluid Body Fluid Culture - Preliminary Assessment and Plan Assessment: Impression: 1 acute hypoxic respiratory failure secondary to staph pneumonia him a requiring intubation and mechanical ventilation. Staph aureus was MSSA. Patient remains on Zosyn. 2 upper GI bleeding, being evaluated by gastroenterology, EGD and colonoscopy were both nondiagnostic and there was no evidence of active bleeding. However the patient received a total of 9 units of packed RBCs since admission. 3 hypothyroidism 4 thrombocytopenia 5 acute on top of chronic kidney injury being followed by nephrology. 6 abnormal liver enzymes related to hypotension and shock liver. Improved. 7 dysphagia secondary to focal cords edema resolving. Recommendation: Continue present supportive care measures, we will restart the tube feeding via PEG tube, we will arrange for ultrasound of the chest, may recommend thoracentesis is based on the ultrasound findings and this will likely be on the left side. We'll continue to monitor his hemoglobin on a daily basis, continue to monitor renal profile, may eventually require kidney biopsy. Long- term prognosis remains poor and guarded, we'll continue to follow. Time with Patient: Less than 30
[2018-07-17] MEDS: FAT EMULSION 20% 250 ML IV SCH (13:06)
--- NOTE | 2018-07-17 13:42 | US ---
EXAMINATION TYPE: US chest DATE OF EXAM: 07/17/2018 COMPARISON: NONE CLINICAL HISTORY: Markings for thoracentesis by pulmonary staff. Pleural effusion TECHNIQUE: Targeted ultrasound of the posterior lower bilateral hemithoraces EXAM MEASUREMENTS: Right Pleural Effusion pocket size: 11.8 cm Right skin surface to fluid distance: 3.1 cm Left Pleural Effusion pocket size: 4.6 cm Left skin surface to fluid distance: 3.0 cm Right side marked for possible thoracentesis outside the dept. Left side marked for possible thoracentesis outside the dept. Pulmonologists are able to review the images in the patient?s EMR. IMPRESSIONS: 1. Bilateral pleural effusions.
[2018-07-17 15:54] LABS: Glucose,Whole Blood 216 mg/dL (75-99)
--- NOTE | 2018-07-17 16:46 | P.PN ---
Subjective Progress Note Date: 07/17/18 68-year-old male that has multiple medical troubles that includes alcoholism, COPD and a history of pancreatitis. The patient required ERCP with pancreatic duct stenting after a recent illness. His related that in the week before admission he started to have progressive shortness of breath, he became profoundly weak and consequently did present for evaluation. Patient was noted to have acute blood loss anemia, acute renal failure and developed respiratory failure The patient did not have significant fever and influenza testing was negative and his lactic acid was normal. The patient hour developed progressive respiratory failure and is now required intubation with sedation and mechanical ventilation. Further information does come from the chart. 07/02/2018 patient remains intubated sedated and mechanically ventilated. Appears to be comfortable and is hemodynamically stable but still on vasopressor therapy. 07/04/2018 patient extubated having improvement of his status. His been moved out of the intensive care unit with his improved status. There is stability to his hemoglobin. He is tolerating high dose of Ancef for his MSSA pneumonia without difficulty. 07/17/2018 patient has had endoscopy performedFor evaluation of gastrointestinal bleeding. No interventions were required. Patient is now stable. Overall goal is for stability of his gastric intestinal track with all be to restart tube feeds and tolerated. The patient has been on Zosyn. Objective - Vital Signs Vital signs: Vital Signs Temp 97.5 F L 07/17/18 12:00 Pulse 86 07/17/18 16:21 Resp 23 07/17/18 12:00 BP 170/95 07/17/18 12:00 Pulse Ox 96 07/17/18 16:14 Intake & Output 07/16/18 07/17/18 07/17/18 18:59 06:59 18:59 Intake Total 3576 1113 978 Output Total 65 660 018 Balance 2921 453 503 Weight 68 kg 68 kg Intake: IV 1366 153 238 .9 Normal Saline 100 20 CVP 36 33 18 Calcium Gluconate 1 gm In 100 100 Sodium Chloride 0.9% 100 ml @ 100 mls/hr IVPB BID [facility] Rx#:[id number] Dextrose 5%-0.45% NaCl 1, 80 20 000 ml @ 10 mls/hr IV . Q24H [facility] Rx#:[id number] Fat Emulsion 20% 250 ml @ 250 21 mls/hr IV Q24H [facility] Rx #:[id number] Piperacillin-Tazobactam 3 100 100 .375 gm In Sodium Chloride 0.9% 100 ml @ 25 mls/hr IVPB Q12HR [facility] Rx #:[id number] Potassium Chloride 20 meq 400 Sodium Acetate 20 meq Magnesium Sulfate gm 2 gm Calcium Gluconate 1 gm In Amino Acid 5%-D15w 1, 000 ml @ 80 mls/hr IV .BY DURATION [facility] Rx#: [id number] Intake, IV Titration 1590 960 730 Amount Fat Emulsion 20% 250 ml @ 250 21 mls/hr IV Q24H [facility] Rx #:[id number] Potassium Acetate 20 meq 1030 Sodium Acetate 20 meq Calcium Gluconate 1 gm In Amino Acid 5%-D15w 1,000 ml @ 80 mls/hr IV .BY DURATION [facility] Rx#: [id number] Potassium Acetate 20 meq 560 960 480 Sodium Acetate 20 meq Calcium Gluconate 1 gm Mvi, Adult No.4 with Vit K 10 ml Trace (Conc-1Ml/ Dose) 1 ml In Amino Acid 5%-D15w 1,000 ml @ 80 mls /hr IV .BY DURATION [facility] Rx#:[id number] Tube Feeding 10 Blood Product 620 Rc As-1 Unit 310 [id number] Output: Urine 655 660 475 Other: Voiding Method Indwelling Catheter Indwelling Catheter Indwelling Catheter # Voids 0 0 # Bowel Movements 1 ABP, PAP, CO, CI - Last Documented Arterial Blood Pressure 158/56 - Exam 68-year-old male who extubated, comfortable denying severe shortness o f breath HEENT: Anicteric conjunctiva are pink and moist nasal mucosa grossly intact without significant lesions, no lesions are noted around the endotracheal tube and no thrush was seen Neck: The neck is not rigid without significant lymphadenopathy or thyromegaly. Lungs: Symmetrical bilateral air entry with coarse crackles throughout the lung yi Heart: Irregular with an audible S4no fever murmur click or rub PMI nondisplaced Abdomen: Positive bowel sounds soft without palpable masses or organomegaly. There was no rigidity does have a fecal management system in place Extremities: The upper extremities have excellent pulses they are symmetric, no significant petechiae or telangiectasia. No splinter hemorrhages were noted. Lower extremities have some trace edema no significant open ulcerations are seen Neuro: Awake and alert mildly irritated but cooperative - Labs CBC & Chem 7: 07/17/18 04:38 07/17/18 04:38 Labs: Abnormal Lab Results - Last 24 Hours (Table) 07/16/18 07/16/18 07/16/18 Range/Units 16:30 20:18 23:46 WBC (3.8-10.6) k/uL RBC (4.30-5.90) m/uL Hgb (13.0-17.5) gm/dL Hct (39.0-53.0) % RDW (11.5-15.5) % Plt Count (150-450) k/uL Neutrophils # (1.3-7.7) k/uL Lymphocytes # (1.0-4.8) k/uL Chloride (98-107) mmol/L BUN (9-20) mg/dL Creatinine (0.66-1.25) mg/dL Glucose (74-99) mg/dL POC Glucose (mg/dL) 156 H 239 H 294 H (75-99) mg/dL Calcium (8.4-10.2) mg/dL 07/17/18 07/17/18 07/17/18 Range/Units 04:15 04:38 04:38 WBC 11.0 H (3.8-10.6) k/uL RBC 2.84 L (4.30-5.90) m/uL Hgb 8.6 L (13.0-17.5) gm/dL Hct 26.3 L (39.0-53.0) % RDW 19.1 H (11.5-15.5) % Plt Count 85 L (150-450) k/uL Neutrophils # 9.9 H (1.3-7.7) k/uL Lymphocytes # 0.3 L (1.0-4.8) k/uL Chloride 114 H (98-107) mmol/L BUN 107 H* (9-20) mg/dL Creatinine 3.53 H (0.66-1.25) mg/dL Glucose 188 H (74-99) mg/dL POC Glucose (mg/dL) 217 H (75-99) mg/dL Calcium 8.3 L (8.4-10.2) mg/dL 07/17/18 07/17/18 07/17/18 Range/Units 08:08 11:55 15:53 WBC (3.8-10.6) k/uL RBC (4.30-5.90) m/uL Hgb (13.0-17.5) gm/dL Hct (39.0-53.0) % RDW (11.5-15.5) % Plt Count (150-450) k/uL Neutrophils # (1.3-7.7) k/uL Lymphocytes # (1.0-4.8) k/uL Chloride (98-107) mmol/L BUN (9-20) mg/dL Creatinine (0.66-1.25) mg/dL Glucose (74-99) mg/dL POC Glucose (mg/dL) 140 H 148 H 216 H (75-99) mg/dL Calcium (8.4-10.2) mg/dL Microbiology - Last 24 Hours (Table) 07/13/18 10:30 Gram Stain - Preliminary Pleural Fluid Body Fluid Culture - Preliminary Laboratory Results WBC 11.0 k/uL (3.8-10.6) H 07/17/18 04:38 RBC 2.84 m/uL (4.30-5.90) L 07/17/18 04:38 Hgb 8.6 gm/dL (13.0-17.5) L 07/17/18 04:38 Hct 26.3 % (39.0-53.0) L 07/17/18 04:38 MCV 92.7 fL (80.0-100.0) 07/17/18 04:38 MCH 30.1 pg (25.0-35.0) 07/17/18 04:38 MCHC 32.5 g/dL (31.0-37.0) 07/17/18 04:38 RDW 19.1 % (11.5-15.5) H 07/17/18 04:38 Plt Count 85 k/uL (150-450) L 07/17/18 04:38 Neutrophils % 90 % 07/17/18 04:38 Neutrophils % (Manual) 87 % 07/15/18 04:57 Band Neutrophils % 1 % 07/15/18 04:57 Lymphocytes % 3 % 07/17/18 04:38 Lymphocytes % (Manual) 4 % 07/15/18 04:57 Monocytes % 5 % 07/17/18 04:38 Monocytes % (Manual) 8 % 07/15/18 04:57 Eosinophils % 0 % 07/17/18 04:38 Basophils % 0 % 07/17/18 04:38 Metamyelocytes % 2 % 06/30/18 07:48 Myelocytes % 1 % 06/30/18 07:48 Other Cells % % 07/15/18 04:57 Neutrophils # 9.9 k/uL (1.3-7.7) H 07/17/18 04:38 Neutrophils # (Manual) 10.20 k/uL (1.3-7.7) H 07/15/18 04:57 Lymphocytes # 0.3 k/uL (1.0-4.8) L 07/17/18 04:38 Lymphocytes # (Manual) 0.47 k/uL (1.0-4.8) L 07/15/18 04:57 Monocytes # 0.6 k/uL (0-1.0) 07/17/18 04:38 Monocytes # (Manual) 0.94 k/uL (0-1.0) 07/15/18 04:57 Eosinophils # 0.0 k/uL (0-0.7) 07/17/18 04:38 Basophils # 0.0 k/uL (0-0.2) 07/17/18 04:38 Metamyelocytes # (Man) 0.31 k/uL (0) H 06/30/18 07:48 Myelocytes # (Manual) 0.16 k/uL (0) H 06/30/18 07:48 Nucleated RBCs 3 /100 WBC (0-0) H 07/15/18 04:57 Manual Slide Review Performed 07/15/18 04:57 Toxic Granulation Present 06/30/18 07:48 Large Platelets Present 06/30/18 07:48 Polychromasia Present 07/15/18 04:57 Hypochromasia Slight 07/17/18 04:38 Poikilocytosis Slight 07/17/18 04:38 Poikilocytosis (manual Present 07/11/18 15:42 Anisocytosis Slight 07/17/18 04:38 Macrocytosis Slight 07/17/18 04:38 Target Cells Present 07/12/18 04:49 Crenated Cell Present 07/06/18 08:03 Fragmented RBCs Present 07/12/18 04:49 Retic Count 0.7 % (0.5-2.0) 07/02/18 12:08 PT 10.5 sec (9.0-12.0) 07/16/18 12:44 INR 1.0 (<1.2) 07/16/18 12:44 APTT 25.6 sec (22.0-30.0) 07/16/18 12:44 Fibrinogen 285 mg/dL (200-500) 07/16/18 12:44 [facility] 07/09/18 12:35 ABG pH 7.30 (7.35-7.45) L 07/09/18 12:35 ABG pCO2 59 mmHg (35-45) H 07/09/18 12:35 ABG pO2 74 mmHg (83-108) L 07/09/18 12:35 ABG HCO3 29 mmol/L (21-25) H 07/09/18 12:35 ABG Total CO2 30 mmol/L (19-24) H 07/09/18 12:35 ABG O2 Saturation 94.8 % (94-97) 07/09/18 12:35 ABG Base Excess 2.1 mmol/L 07/09/18 12:35 Andresa Test Yes 07/09/18 12:35 FiO2 36 % 07/09/18 12:35 Sodium 144 mmol/L (137-145) 07/17/18 04:38 Potassium 4.3 mmol/L (3.5-5.1) 07/17/18 04:38 Chloride 114 mmol/L (98-107) H 07/17/18 04:38 Carbon Dioxide 22 mmol/L (22-30) 07/17/18 04:38 Anion Gap 8 mmol/L 07/17/18 04:38 BUN 107 mg/dL (9-20) H* 07/17/18 04:38 Creatinine 3.53 mg/dL (0.66-1.25) H 07/17/18 04:38 Est GFR (CKD-EPI)AfAm 20 (>60 ml/min/1.73 sqM) 07/17/18 04:38 Est GFR (CKD-EPI)NonAf 17 (>60 ml/min/1.73 sqM) 07/17/18 04:38 Glucose 188 mg/dL (74-99) H 07/17/18 04:38 POC Glucose (mg/dL) 216 mg/dL (75-99) H 07/17/18 15:53 POC Glu [employer] ID Opal Strauss 07/17/18 15:53 Osmolality 340 mosm/kg (280-301) H* 06/30/18 07:48 Plasma Lactic Acid Fred 0.8 mmol/L (0.7-2.0) 07/08/18 04:20 Calcium 8.3 mg/dL (8.4-10.2) L 07/17/18 04:38 Ionized Calcium Cornelius 5.1 mg/dL (4.5-5.3) 07/17/18 04:38 Phosphorus 3.5 mg/dL (2.5-4.5) 07/17/18 04:38 Magnesium 2.0 mg/dL (1.6-2.3) 07/17/18 04:38 Iron 52 ug/dL (65-175) L 07/02/18 12:08 TIBC 200 ug/dL (228-460) L 07/02/18 12:08 Iron Saturation 26.00 (15.00-50.00) 07/02/18 12:08 Erythropoietin 90.45 mIU/mL (2.00-30.00) H 07/02/18 12:08 Ferritin 76.9 ng/mL (22.0-322.0) 07/02/18 12:08 Total Bilirubin 0.9 mg/dL (0.2-1.3) 07/14/18 04:01 AST 49 U/L (17-59) 07/14/18 04:01 ALT 62 U/L (21-72) 07/14/18 04:01 Alkaline Phosphatase 232 U/L (38-126) H 07/14/18 04:01 Ammonia <9 umol/L (<30) 07/09/18 19:59 Lactate Dehydrogenase 563 U/L (313-618) 07/02/18 04:20 Troponin I <0.012 ng/mL (0.000-0.034) 06/30/18 07:48 Total Protein 4.5 g/dL (6.3-8.2) L 07/14/18 04:01 Albumin 2.1 g/dL (3.5-5.0) L 07/16/18 04:47 Triglycerides 58 mg/dL (<150) 07/16/18 04:47 Amylase 31 U/L (30-110) 07/01/18 06:15 Lipase 127 U/L (23-300) 07/01/18 06:15 Vitamin B12 757.0 pg/mL (200.0-944.0) 07/02/18 12:08 Methylmalonic Acid 0.63 umol/L (<0.40) H 07/02/18 12:08 Vitamin D 25-Hydroxy 8.7 ng/mL (30.0-100.0) L 07/03/18 22:50 RBC Folate 840 ng/mL (280 - 791) H 07/02/18 12:08 TSH 8.700 mIU/L (0.465-4.680) H 06/29/18 01:56 Free T4 0.47 ng/dL (0.78-2.19) L 06/29/18 01:56 PTH Intact 208.7 pg/mL (14.0-72.0) H 07/03/18 22:50 Cortisol 16 ug/dL 07/01/18 06:15 Urine Color Yellow 06/29/18 06:22 Urine Appearance Cloudy (Clear) 06/29/18 06:22 Urine pH 5.5 (5.0-8.0) 06/29/18 06:22 Ur Specific [place] 1.015 (1.001-1.035) 06/29/18 06:22 Urine Protein 2+ (Negative) H 06/29/18 06:22 Urine Glucose (UA) Negative (Negative) 06/29/18 06:22 Urine Ketones Negative (Negative) 06/29/18 06:22 Urine Blood Moderate (Negative) H 06/29/18 06:22 Urine Nitrite Negative (Negative) 06/29/18 06:22 Urine Bilirubin Negative (Negative) 06/29/18 06:22 Urine Urobilinogen <2.0 mg/dL (<2.0) 06/29/18 06:22 Ur Leukocyte Esterase Moderate (Negative) H 06/29/18 06:22 Urine RBC 56 /hpf (0-5) H 06/29/18 06:22 Urine WBC 26 /hpf (0-5) H 06/29/18 06:22 Ur Squamous Epith Cells <1 /hpf (0-4) 06/29/18 06:22 Urine Mucus Rare /hpf (None) H 06/29/18 06:22 Ur Random Creatinine 57.8 mg/dL 07/03/18 22:50 U Random Total Protein 89 mg/dL (<12) H 07/03/18 22:50 Fluid Source Pleural 07/13/18 10:30 Fluid Color Yellow 07/13/18 10:30 Fluid Appearance Hazy 07/13/18 10:30 Fluid RBC 113 /uL 07/13/18 10:30 Fluid Nucleated Cells 8 /uL 07/13/18 10:30 Body Fluid Protein Source Pleural Fluid 07/13/18 10:30 Fluid Total Protein 908.0 mg/dL 07/13/18 10:30 Body Fluid LDH Source Pleural Fluid 07/13/18 10:30 Fluid LDH 133 U/L 07/13/18 10:30 Stool Occult Blood Positive (Negative) 06/29/18 04:16 Serum LUIS Interpret SEE NOTE 07/03/18 05:10 Urine Immunofixation SEE NOTE 07/03/18 22:50 GENNA Screen NEGATIVE (NEGATIVE) 06/30/18 15:43 c-ANCA <1:20 Titer (<1:20) 06/30/18 07:48 p-ANCA <1:20 Titer (<1:20) 06/30/18 07:48 Double Strand DNA Ab NEGATIVE (NEGATIVE) 06/30/18 15:43 Anti-DNA Ab Interp <1.0 IU/mL 06/30/18 15:43 Complement C3 56.0 mg/dL (80.0-207.0) L 06/30/18 15:43 Complement C4 9.7 mg/dL (10.0-53.0) L 06/30/18 15:43 C. difficile (EIA) Intrp Negative (Negative) 07/02/18 04:15 Hep Bs Antigen Non-Reactive (Non-Reactive) 07/02/18 04:20 Hep Bs Antibody Non-Reactive (Non-Reactive) 07/02/18 04:20 Hep Bs Antibody, Quant 3.5 mIU/mL 07/02/18 04:20 Hep C IgG Ab Non-Reactive (Non-Reactive) 07/02/18 04:20 Influenza Type A RNA Not Detected (Not Detectd) 06/30/18 07:50 Influenza Type B (PCR) Not Detected (Not Detectd) 06/30/18 07:50 Virus Source See Below 07/13/18 10:30 Viral Test See Below 07/13/18 10:30 Virus Analysis Interp See Below 07/13/18 10:30 Blood Type A Positive 07/15/18 05:40 Blood Type Recheck No 07/15/18 05:40 Antibody Screen NEGATIVE 07/15/18 05:40 Crossmatch See Detail 07/15/18 05:40 Spec Expiration Date 07/18/2018233907/15/18 05:40 Microbiology 07/13/18 10:30 Pleural Fluid Gram Stain - Preliminary 07/13/18 10:30 Pleural Fluid Body Fluid Culture - Preliminary 07/13/18 10:30 Lung - Right Acid Fast Bacilli Smear - Final 07/13/18 10:30 Lung - Right Acid Fast Bacilli Culture - Preliminary 07/13/18 10:30 Pleural Fluid Fungal Culture - Preliminary 06/30/18 08:54 Blood Blood Culture - Final No Growth after 144 hours 06/29/18 01:56 Blood Blood Culture - Final No Growth after 144 hours 06/30/18 13:10 Sputum Gram Stain - Final 06/30/18 13:10 Sputum Sputum Culture - Final Staphylococcus aureus 06/30/18 08:51 Urine,Catheterized Urine Culture - Final 06/29/18 06:22 Urine,Catheterized Urine Culture - Final Assessment and Plan (1) MUMTAZ (acute kidney injury) Current Visit: Yes Status: Acute Code(s): N17.9 - ACUTE KIDNEY FAILURE, UNSPECIFIED SNOMED Code(s): 43232208 (2) Acute blood loss anemia Current Visit: Yes Status: Acute Code(s): D62 - ACUTE POSTHEMORRHAGIC ANEMIA SNOMED Code(s): 460713342 (3) Staphylococcus aureus pneumonia Narrative/Plan: 68 year old male that has multiple medical troubles including a history of pancreatitis requiring biliary stent. At this time he has developed respiratory failure as well as acute renal failure and blood loss anemia. The patient has been intubated and is mechanically ventilated. Sputum is showing evidence of a staphylococcal infection in is unknown at this point in time if this is MRSA. Consequently antibiotic therapy is enhanced by adding clindamycin intravenously. Vancomycin was avoided given his acute renal failure and avoidance of any other nephrotoxins. He is on Levophed consequently Zyvox is not possible Ceftaroline not available. Final culture result will help determine final choice of antibiotic therapy. With his chronic liver disease he is noticed to have thrombocytopenia which is likely worsened because of the current sepsis from his pneumonia. Blood cult ures were negative so far. Influenza was negative. He did have relative hypothermia and a bear hugger is in place, this is concerning given his sepsis. 07/02/2018 patient remains intubated sedated and mechanically ventilated and has evidence of MSSA infection. Consider clindamycin is discontinued. High-dose of Ancef is added dose appropriate for his current renal failure. Does appear to have some improvement of his status. His oxygen requirements have improved. He does have nonoliguric renal failure there's been some improvement of his creatinine. He is on less vasopressor therapy. He has not with evidence of acute bleeding. Has been seen by hematology and appears that there is bone marrow effect from his alcohol use with thrombocytopenia and anemia. No need for transfusions at this time. 07/04/2018 the patient is improved. He has been extubated and is now on the medical floor. He has on high-dose cefazolin being dosed for his renal failure. This seemed to have some improvement in his status and has been seen by multiple consultants. GI is following with liver disease and pancreatitis in hematology is following regarding his hematological abnormality is all thought to be related to his chronic alcoholism. As he progresses will work with the discharge planners as to the best options for his antibiotic therapy as he transitions out of our facility. 07/17/2018 the patient has had improvement of his status. MSSA pneumonia has been well treated. Antibiotic therapy may be discontinued. Pulmonary is following in May provide another thoracentesis for the effusion. Most recent tap did not show evidence of any infection within the pleural fluid. Current Visit: Yes Status: Acute Code(s): J15.211 - PNEUMONIA DUE TO METHICILLIN SUSCEP STAPH SNOMED Code(s): 113162331
[2018-07-17] MEDS: DARBEPOETIN ALFA 60 MCG/0.3 ML SYRINGE SQ SCH (17:25)
--- NOTE | 2018-07-17 19:48 | PN ---
PROGRESS NOTE DATE OF SERVICE: 07/17/2018. PRESENTING COMPLAINT: Tired. INTERVAL HISTORY: Patient in the ICU with multiple problems initially presenting with UTI, pneumonia, metabolic acidosis, acute kidney injury, history of alcoholism. The patient was intubated and extubated on July 03 and had a BiPAP. The patient has moved to the ICU and readmitted after bloody bowel movements. The patient is started on tube feeding today through the PEG tube and Nepro 10 mL an hour. The patient is on room air. Telemetry shows sinus rhythm. Urine output has been good. TPN lipids are continued. The patient is awake, communicating. REVIEW OF SYSTEMS: Done for constitutional, cardiovascular, GI, pulmonary; relevant findings as above. CURRENT MEDICATIONS: Reviewed that include TPN, lipids, IV Zosyn. EXAMINATION: VITAL SIGNS: Afebrile. Pulse 86, respiration 22, blood pressure 180/86, pulse ox 96% on room air. GENERAL APPEARANCE: Lying in bed, awake. Answering questions. EYES: Pupils equal. Conjunctivae pale. HEENT: External appearance of nose and ears normal. Oral cavity normal. NECK: JVD unable to assess. Mass not palpable. RESPIRATORY: Effort increased. LUNGS: Diminished breath sounds. CARDIOVASCULAR: 1st and 2nd sounds normal. No edema. ABDOMEN: Soft, nontender. Liver and spleen not palpable. PEG tube in place. PSYCHIATRY: Awake, answering questions appropriately. INVESTIGATIONS: White count 11, hemoglobin 8.6, platelets 85. Potassium 4.3, BUN 107, creatinine 3.53. ASSESSMENT: 1. Pneumonia, possibly aspiration. 2. Acute metabolic encephalopathy, resolved. 3. Acute hypoxic respiratory failure status post ventilator support, now on room air. 4. Pneumonia with Staph aureus. 5. Severe esophagitis. 6. Acute hyponatremia from free water deficit now corrected. 7. Metabolic acidosis. 8. Hypertensive shock from free water deficit and septic shock, now improved. 9. Acute kidney injury likely from acute tubular necrosis, slow to respond. 10.Acute gastrointestinal bleed, the patient received a total of 9 units of blood. 11.Acute blood loss anemia both from gastrointestinal bleed and also bleeding around the PEG tube site. 12.Hypothyroidism. 13.Thrombocytopenia likely multifactorial and contribution from sepsis. 14.PEG tube feeding is being started. 15.Right pleural effusion status post thoracentesis on July 13. 16.CODE STATUS: FULL CODE. PLAN: The patient is started on tube feeding Nepro at 10 mL an hour. We will get a speech evaluation to see if the patient can be started on oral diet. The patient TPN therefore can be weaned off. MMODL / IJN: [id number] /
[2018-07-17 19:59] LABS: Glucose,Whole Blood 198 mg/dL (75-99)
[2018-07-17] MEDS: INSULIN DETEMIR (LEVEMIR) 100 UNIT/ML SYR SQ SCH (20:32)
[2018-07-17] MEDS: hydrALAZINE HCL 20 MG/ML 1 ML VIAL IVP PRN (20:37)
[2018-07-17] MEDS: METOPROLOL TARTRATE 50 MG TAB PO SCH (23:47)
[2018-07-17 23:56] LABS: Glucose,Whole Blood 137 mg/dL (75-99)
[2018-07-18 04:02] LABS: Glucose,Whole Blood 135 mg/dL (75-99)
[2018-07-18] MEDS: INSULIN ASPART (NovoLOG) 100 UNIT/ML VIAL SQ SCH ×5 (04:10→20:38)
[2018-07-18 04:22] LABS: Anisocytosis Moderate; Basophils % (A) 0 %; Eosinophils % (A) 0 %; HCT 29.7 % (39.0-53.0); HGB 9.8 gm/dL (13.0-17.5); Hypochromasia Slight; Lymphocytes # (A) 0.3 k/uL (1.0-4.8); Lymphocytes % (A) 2 %; MCH 31.1 pg (25.0-35.0); MCHC 32.9 g/dL (31.0-37.0); MCV 94.6 fL (80.0-100.0); Macrocytosis Slight; Mean Platelet Volume 10.6; Monocytes # (A) 0.5 k/uL (0-1.0); Monocytes % (A) 4 %; Neutrophils # (A) 13.6 k/uL (1.3-7.7); Neutrophils % (A) 93 %; Platelet Count 100 k/uL (150-450); Poikilocytosis Slight; RBC 3.14 m/uL (4.30-5.90); RDW 21.3 % (11.5-15.5); WBC 14.6 k/uL (3.8-10.6)
[2018-07-18 04:24] LABS: Ionized Calcium 5.2 mg/dL (4.5-5.3)
[2018-07-18] MEDS: IPRATROPIUM-ALBUTEROL 3 ML NEB INHALATION SCH ×5 (04:41→19:26)
[2018-07-18] MEDS: hydrALAZINE HCL 20 MG/ML 1 ML VIAL IVP PRN (06:02)
[2018-07-18 06:41] LABS: Calcium 8.7 mg/dL (8.4-10.2); Magnesium 1.7 mg/dL (1.6-2.3); Phosphorus 3.2 mg/dL (2.5-4.5); Potassium 4.5 mmol/L (3.5-5.1)
[2018-07-18] MEDS: POTASSIUM ACETATE IV SCH ×20 (07:11→23:12)
[2018-07-18] MEDS: [UNRECOGNIZED DRUG - OTHER] IV SCH ×6 (07:11)
[2018-07-18] MEDS: SODIUM ACETATE IV SCH ×20 (07:11→23:12)
[2018-07-18] MEDS: CALCIUM GLUCONATE IV SCH ×6 (07:11)
[2018-07-18] MEDS: LEVOTHYROXINE IVP 100 MCG/5 ML VIAL IV SCH (08:56)
[2018-07-18] MEDS: PANTOPRAZOLE 40 MG/10 ML VIAL IVP SCH ×2 (08:56→20:38)
[2018-07-18] MEDS ORDERED: MAGNESIUM SULFATE-D5W PMX 1 GM in DEXTROSE/WATER 1 100ML.BAG IVPB ONE (09:00)
[2018-07-18] MEDS: methylPREDNISolone SOD SUCCI 40 MG/ML 1 ML VIAL IV SCH ×2 (09:02→16:41)
[2018-07-18 09:03] LABS: Glucose,Whole Blood 212 mg/dL (75-99)
[2018-07-18] MEDS: METOPROLOL TARTRATE 50 MG TAB PO SCH ×2 (09:16→20:38)
--- NOTE | 2018-07-18 09:18 | XR ---
EXAMINATION TYPE: XR chest 1V portable DATE OF EXAM: 07/18/2018 COMPARISON: 07/17/2018 INDICATION: Shortness of breath TECHNIQUE: Single frontal view of the chest is obtained. FINDINGS: The heart size is normal. The pulmonary vasculature is somewhat prominent. Bibasilar infiltrates are present. Minimal bilateral pleural effusions are likely present. Retrocardiac infiltrate is likely present. IMPRESSION: 1. Bibasilar atelectasis with small bilateral pleural effusions. Exam is similar to the prior study.
[2018-07-18] MEDS: PIPERACILLIN-TAZOBACTAM 3.375 GM in SODIUM CHLORIDE 0.9% 100 ML IVPB SCH ×2 (09:23→22:20)
[2018-07-18] MEDS: MAGNESIUM SULFATE IV SCH ×14 (09:40→23:12)
[2018-07-18] MEDS: [UNRECOGNIZED DRUG - OTHER] IV SCH ×14 (09:40→23:12)
--- NOTE | 2018-07-18 10:18 | P.PN ---
Subjective Patient is seen in follow-up for acute kidney injury. Renal function is gradually improving. Creatinine 3.4 today. He is noted to have proteinuria along with low complement levels and will need a kidney biopsy down the road. Currently working with PT. He is now receiving TFs via PEG tube. TPN discontinued. Vital signs are stable. General: The patient appeared well nourished and normally developed. HEENT: Head exam is unremarkable. Neck is without jugular venous distension. LUNGS: Breath sounds decreased. HEART: Rate and Rhythm are regular. First and second heart sounds normal. No murmurs, rubs or gallops. ABDOMEN: Abdominal exam reveals normal bowel sounds. Non-tender and non- distended. No evidence of peritonitis. EXTREMITITES: No clubbing, cyanosis, or edema. Objective - Vital Signs Vital signs: Vital Signs Temp 98.2 F 07/18/18 00:00 Pulse 88 07/18/18 07:41 Resp 23 07/18/18 07:00 BP 161/87 07/18/18 07:00 Pulse Ox 94 L 07/18/18 07:00 Intake & Output 07/17/18 07/18/18 07/18/18 18:59 06:59 18:59 Intake Total 1616 1116 93 Output Total 870 815 100 Balance 746 301 -7 Weight 68 kg 67.7 kg Intake: IV 316 156 13 .9 Normal Saline 80 120 10 CVP 36 36 3 Calcium Gluconate 1 gm In 100 Sodium Chloride 0.9% 100 ml @ 100 mls/hr IVPB BID ANTHONY Rx#:[id number] Piperacillin-Tazobactam 3 100 .375 gm In Sodium Chloride 0.9% 100 ml @ 25 mls/hr IVPB Q12HR ANTHONY Rx #:[id number] Intake, IV Titration 1130 Amount Fat Emulsion 20% 250 ml @ 250 21 mls/hr IV Q24H ANTHONY Rx #:[id number] Potassium Acetate 20 meq 880 Sodium Acetate 20 meq Calcium Gluconate 1 gm Mvi, Adult No.4 with Vit K 10 ml Trace (Conc-1Ml/ Dose) 1 ml In Amino Acid 5%-D15w 1,000 ml @ 80 mls /hr IV .BY DURATION ANTHONY Rx#:[id number] Tube Feeding 60 TPN/PPN 80 960 80 .9 Normal Saline 80 960 80 Other 30 Output: Urine 870 815 100 Other: Voiding Method Indwelling Catheter Indwelling Catheter # Voids 0 # Bowel Movements 1 ABP, PAP, CO, CI - Last Documented Arterial Blood Pressure 158/56 - Labs CBC & Chem 7: 07/18/18 04:12 07/18/18 04:12 Labs: Abnormal Lab Results - Last 24 Hours (Table) 07/17/18 07/17/18 07/17/18 Range/Units 11:55 15:53 19:58 WBC (3.8-10.6) k/uL RBC (4.30-5.90) m/uL Hgb (13.0-17.5) gm/dL Hct (39.0-53.0) % RDW (11.5-15.5) % Plt Count (150-450) k/uL Neutrophils # (1.3-7.7) k/uL Lymphocytes # (1.0-4.8) k/uL Chloride (98-107) mmol/L BUN (9-20) mg/dL Creatinine (0.66-1.25) mg/dL Glucose (74-99) mg/dL POC Glucose (mg/dL) 148 H 216 H 198 H (75-99) mg/dL 07/17/18 07/18/18 07/18/18 Range/Units 23:54 03:59 04:12 WBC (3.8-10.6) k/uL RBC (4.30-5.90) m/uL Hgb (13.0-17.5) gm/dL Hct (39.0-53.0) % RDW (11.5-15.5) % Plt Count (150-450) k/uL Neutrophils # (1.3-7.7) k/uL Lymphocytes # (1.0-4.8) k/uL Chloride 114 H (98-107) mmol/L BUN 110 H* (9-20) mg/dL Creatinine 3.40 H (0.66-1.25) mg/dL Glucose 138 H (74-99) mg/dL POC Glucose (mg/dL) 137 H 135 H (75-99) mg/dL 07/18/18 07/18/18 Range/Units 04:12 09:01 WBC 14.6 H (3.8-10.6) k/uL RBC 3.14 L (4.30-5.90) m/uL Hgb 9.8 L (13.0-17.5) gm/dL Hct 29.7 L (39.0-53.0) % RDW 21.3 H (11.5-15.5) % Plt Count 100 L (150-450) k/uL Neutrophils # 13.6 H (1.3-7.7) k/uL Lymphocytes # 0.3 L (1.0-4.8) k/uL Chloride (98-107) mmol/L BUN (9-20) mg/dL Creatinine (0.66-1.25) mg/dL Glucose (74-99) mg/dL POC Glucose (mg/dL) 212 H (75-99) mg/dL Microbiology - Last 24 Hours (Table) 07/13/18 10:30 Gram Stain - Final Pleural Fluid Body Fluid Culture - Final Assessment and Plan Plan: Assessment: 1. Acute kidney injury secondary to ATN. There is also concern for acute GN as he does have sub-nephrotic range proteinuria along with low complement levels. Renal function gradually improving - cr 3.4 today. 2. 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 Maintained on tube feeding via PEG tube. TPN discontinued. 3. 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 Baseline creatinine in the range of 1.8-2. 4. Metabolic acidosis secondary to acute kidney injury. Stable. 5. Hypernatremia secondary to lack of oral water intake. Stable. 6. Staph aureus pneumonia. Maintained on antibiotics. 7. Anemia of chronic kidney disease maintained on Aranesp. Status post blood transfusion. No active bleeding noted at this time. Status post EGD and colonoscopy on July 16 which revealed no active bleeding. Plan: Maintain tube feeding. Avoid nephrotoxins. Patient will need a kidney biopsy down the road.
[2018-07-18] MEDS: CALCIUM GLUCONATE 1 GM in SODIUM CHLORIDE 0.9% 100 ML IVPB SCH (10:24)
--- NOTE | 2018-07-18 11:54 | P.PN ---
Subjective Progress Note Date: 07/18/18 Principal diagnosis: Acute hypoxic respiratory failure secondary to staph aureus pneumonia requiring intubation and mechanical ventilation. This is a 68-year-old white male, known history of pancreatitis, attention, he had previous ERCP for bile duct stent with colitis and history of alcohol abuse. Patient presented to [facility] with 1 week history of worsen ing shortness of breath. Patient was noted to be anemic, and he was transfused with 2 units of packed RBCs upon presentation. He was seen by gastroenterology on consultation and he was being considered for EGD. In the meantime the patient was placed on Protonix. Patient is known to have history of alcohol abuse, drinks liquor on a daily basis, patient had previous history of bile duct stricture in 2014 and pancreatitis, requiring biliary stenting. Patient is also known to have history of thrombocytopenia and macrocytic anemia. Upon presentation, the patient was noted to have fecal occult blood test positive. The patient was admitted on 06/29, and this morning the rapid response team from the ICU and responded to the patient being hypotensive and short of breath. I was notified about the patient's ABG showing a pO2 of 87 pCO2 of 39 and pH of 7.07. His bicarb was noted to be 12. Hence I recommended immediate intubation fluids, and immediate transfer to the intensive care unit. Shortly after, the patient arrived to the ICU, and he was again noted to be hypotensive, more fluid boluses were given. Started the patient on norepinephrine and this will be titrated accordingly to a mean arterial pressure of 65 or higher. Patient was noted to be oliguric, and he likely developed acute tubular necrosis because of low blood pressure, and nephrology consultation was initiated. In the meantime the patient will need to be on broad-spectrum antibiotics for presumptive sepsis. His chest x-ray showed no evidence of infiltrate, however his urine may be infected based on the urinalysis upon admission. Patient is on Rocephin, and he is also on Zosyn. On 07/15/2018 and seeing this patient for a follow-up. After being well and doing good progress, the patient dropped his urine output yesterday and earlier this morning it was noted that there is significant drop in hemoglobin down to 5.5. At a later stage he started developing some abdominal pain and discomfort and that she'll feeds were placed on hold and the patient started having bloody output from his PEG tube which is consistent with GI bleeding, likely of an upper GI source. The patient is currently receiving total of 2 units of packed RBCs. GI was informed of this changes there were asked to come and reevaluate the patient. Currently tube is on hold. His mental status is acceptable. He is awake and alert. He is unable to swallow and his voice remains hoarse and his mouth is dry and is undergoing oral care. He underwent a right-sided thoracentesis and there was significant improvement in his overall pulmonary status and breathing following the procedure. The renal function is abnormal as the patient developed an acute GI bleed. Creatinine is up to 4.02 with a mean of 105. No fever. No chest pain.. The patient is still calm and comfortable in bed. Note that this patient was initially hospitalized for septic shock and staph pneumonia. He also developed acute kidney injury. He has previous history of alcoholism and previous history of pancreatitis and during an earlier endoscopy his bili ducts were removed. 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 He is known to have a moderate degree of mitral regurgitation, moderate pulmonary hypertension with a preserved LV function and ejection fraction of 50-55%. Patient was reevaluated today on 07/16/2018, he is mostly on 3 L nasal cannula, but refuses to keep his nasal cannula on. Comfortable, in no distress, receiving a unit of packed RBCs during my evaluation, and he is scheduled to have EGD and colonoscopy today. Hemoglobin this morning is 7.5. His BUN is 109 creatinine 3.75. Chest x-ray today showed small to moderate left pleural effusion, and trace of right sided small pleural effusion. On 07/13, patient underwent thoracentesis, and 1 L of fluid was removed. Chest x-ray this morning continues to show small left pleural effusion, and hardly any pleural effusion on the right side. Patient is comfortable, in no distress. Being followed by many consultants. But today he is undergoing EGD and colonoscopy as per GI. Reevaluated today on 07/17/2018, remains in the ICU, he is status post colonoscopy and EGD and there was no evidence of any active bleeding. Patient seems to be comfortable, in no distress, his hemoglobin is 8.6 today. Since admission the patient received a total of 9 units of packed RBCs. GI is r ecommending starting tube feeding again via PEG tube. His acute kidney injury seems to be gradually improving. Creatinine is 3.53 today. 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 He is concerned about the possibility of acute glomerulonephritis mostly because of his proteinuria and low complement levels. Chest x-ray continues to show good signs retrocardiac infiltrate and possibly left-sided parapneumonic pleural effusion. I will recommend ultrasound of the chest, May have to consider left-sided thoracentesis. Reevaluated today on 07/18/2010, patient is feeling better, no clinical evidence of active bleeding, his hemoglobin is holding, he denies being short of breath, ultrasound showed good sized right-sided pleural effusion, but looks improved on the chest x-ray, and considering the patient is asymptomatic, I have no plans to consider thoracentesis at this point. Patient has decent urine output, feeling better overall. And he is sitting in bed, I would likely transfer the patient out of the ICU to a regular medical floor today. Hemoglobin today is 9.8 electrolytes are normal BUN is remains elevated at 110 creatinine 3.40 improving steadily compared to baseline on admission. Objective - Vital Signs Vital signs: Vital Signs Temp 97.7 F 07/18/18 08:00 Pulse 84 07/18/18 11:03 Resp 28 H 07/18/18 10:00 BP 165/85 07/18/18 10:00 Pulse Ox 94 L 07/18/18 10:00 Intake & Output 07/17/18 07/18/18 07/18/18 18:59 06:59 18:59 Intake Total 1616 1116 93 Output Total 870 815 100 Balance 746 301 -7 Weight 68 kg 67.7 kg Intake: IV 316 156 13 .9 Normal Saline 80 120 10 CVP 36 36 3 Calcium Gluconate 1 gm In 100 Sodium Chloride 0.9% 100 ml @ 100 mls/hr IVPB BID ANTHONY Rx#:[id number] Piperacillin-Tazobactam 3 100 .375 gm In Sodium Chloride 0.9% 100 ml @ 25 mls/hr IVPB Q12HR ANTHONY Rx #:[id number] Intake, IV Titration 1130 Amount Fat Emulsion 20% 250 ml @ 250 21 mls/hr IV Q24H ANTHONY Rx #:[id number] Potassium Acetate 20 meq 880 Sodium Acetate 20 meq Calcium Gluconate 1 gm Mvi, Adult No.4 with Vit K 10 ml Trace (Conc-1Ml/ Dose) 1 ml In Amino Acid 5%-D15w 1,000 ml @ 80 mls /hr IV .BY DURATION ANTHONY Rx#:[id number] Tube Feeding 60 TPN/PPN 80 960 80 .9 Normal Saline 80 960 80 Other 30 Output: Urine 870 815 100 Other: Voiding Method Indwelling Catheter Indwelling Catheter Indwelling Catheter # Voids 0 0 # Bowel Movements 1 ABP, PAP, CO, CI - Last Documented Arterial Blood Pressure 158/56 - Exam GEN:physical examination, patient appears comfortable in no apparent distress. HEAD: Normocephalic, atraumatic. EYES: No scleral icterus. No conjunctival injection. MOUTH: No lesions, tongue midline. NECK: Trachea midline, no gross abnormalities. CHEST: Coarse respiratory noises in all lung yi. HEART: S1-S2 appreciated. ABDOMEN: Soft, PEG tube is in place with old blood and no active bleeding seen. Bowel sounds are positive. No organomegaly. No guarding or rigidity. EXTREMITIES: No pedal edema. SKIN: No rashes, no jaundice. NEUROLOGIC: Awake and interactive. No gross focal neurologic deficit noted. Psychiatric: Normal mood affect and mental status examination. Lymphatics: No lymphadenopathy - Labs CBC & Chem 7: 07/18/18 04:12 07/18/18 04:12 Labs: Abnormal Lab Results - Last 24 Hours (Table) 07/17/18 07/17/18 07/17/18 Range/Units 11:55 15:53 19:58 WBC (3.8-10.6) k/uL RBC (4.30-5.90) m/uL Hgb (13.0-17.5) gm/dL Hct (39.0-53.0) % RDW (11.5-15.5) % Plt Count (150-450) k/uL Neutrophils # (1.3-7.7) k/uL Lymphocytes # (1.0-4.8) k/uL Chloride (98-107) mmol/L BUN (9-20) mg/dL Creatinine (0.66-1.25) mg/dL Glucose (74-99) mg/dL POC Glucose (mg/dL) 148 H 216 H 198 H (75-99) mg/dL 07/17/18 07/18/18 07/18/18 Range/Units 23:54 03:59 04:12 WBC (3.8-10.6) k/uL RBC (4.30-5.90) m/uL Hgb (13.0-17.5) gm/dL Hct (39.0-53.0) % RDW (11.5-15.5) % Plt Count (150-450) k/uL Neutrophils # (1.3-7.7) k/uL Lymphocytes # (1.0-4.8) k/uL Chloride 114 H (98-107) mmol/L BUN 110 H* (9-20) mg/dL Creatinine 3.40 H (0.66-1.25) mg/dL Glucose 138 H (74-99) mg/dL POC Glucose (mg/dL) 137 H 135 H (75-99) mg/dL 07/18/18 07/18/18 Range/Units 04:12 09:01 WBC 14.6 H (3.8-10.6) k/uL RBC 3.14 L (4.30-5.90) m/uL Hgb 9.8 L (13.0-17.5) gm/dL Hct 29.7 L (39.0-53.0) % RDW 21.3 H (11.5-15.5) % Plt Count 100 L (150-450) k/uL Neutrophils # 13.6 H (1.3-7.7) k/uL Lymphocytes # 0.3 L (1.0-4.8) k/uL Chloride (98-107) mmol/L BUN (9-20) mg/dL Creatinine (0.66-1.25) mg/dL Glucose (74-99) mg/dL POC Glucose (mg/dL) 212 H (75-99) mg/dL Microbiology - Last 24 Hours (Table) 07/13/18 10:30 Gram Stain - Final Pleural Fluid Body Fluid Culture - Final Assessment and Plan Assessment: Impression: 1 acute hypoxic respiratory failure secondary to staph pneumonia,requiring intubation and mechanical ventilation. Staph aureus was MSSA. Patient remains on Zosyn. 2 upper GI bleeding, being evaluated by gastroenterology, EGD and colonoscopy were both nondiagnostic and there was no evidence of active bleeding. However the patient received a total of 9 units of packed RBCs since admission. 3 hypothyroidism 4 thrombocytopenia 5 acute on top of chronic kidney injury being followed by nephrology. Improving steadily over the last few days 6 abnormal liver enzymes related to hypotension and shock liver. Improved. 7 dysphagia secondary to focal cords edema resolving. Recommendation: Continue present treatment plan, patient is being fed via PEG tube, reviewed and discussed the ultrasound finding of the chest with the patient, no plans to do thoracentesis since the patient is asymptomatic, and his chest x-ray is showing definite clearing of the pleural effusions bilaterally. Patient could be transferred out of the ICU to a regular bed on the regular medical floor, but not quite ready for discharge planning. All his meds were reviewed, and no changes will be made at this point. Continue PEG tube feeding, continue antibiotics, ambulate, consult executive secretary social welfare for placement in the next few days. Time with Patient: Less than 30
[2018-07-18 11:56] LABS: Glucose,Whole Blood 130 mg/dL (75-99)
--- NOTE | 2018-07-18 13:59 | CDI ---
Documentation Clarification Form Date: 07/18/2018 12:20:03 PM From: Sheeba Talley RN, CCDS Admit Date: 06/29/2018 2:55:00 AM Patient Name: Twin Enamorado Visit Number: [id number] Discharge Date: ATTENTION: The Clinical Documentation Specialists (CDI) and [facility] Coding Staff appreciate your assistance in clarifying documentation. Please respond to the clarification below the line at the bottom and electronically sign. The CDI & [facility] Coding staff will review the response and follow-up if needed. Please note: Queries are made part of the Legal Health Record. If you have any questions, please contact the author of this message via ITS. Dr. Howard Palomo 06/3018 Intubation, mechanical ventilation is documented in the progress notes. 07/03/18 0900 extubate patient was documented and carried out, per progress notes. Patients Admitting Diagnosis: Acute respiratory failure, Septic shock likely secondary to pneumonia, UTI Post-procedure Diagnosis: same Procedure performed: Intubation 06/3018, extubation on 07/03/18 History/Risk Factors: Hypertension, Cervical Surgery, Alcohol abuse, Pancreatitis, Current every day smoker Clinical Indicators: 68-year-old male present because of dyspnea, with bilateral leg swelling. He denied any sore throat on admission. He developed acute respiratory failure requiring intubation. Labs on admission: WBC 7.7, HGB 8.1, HCT 27.2 PLT 81 07/03/18 Extubate, has a harsh cough, expectorating copious amounts of thick clear sputum, no visible blood in sputum 07/04/18 Able to speak voice is hoarse, congested cough, expectorating copious amounts of thick clear sputum, no hemoptysis 07/05/18 Modified swallow: Large amount of howard aspiration with thin liquids. Aspiration also seen with honey thickened liquids 07/05/18 Flexible nasopharyngolaryngoscopy: Patient developed severe dysphagia and aspiration and hoarseness after extubation. He failed a barium swallow. Findings: Extremely erythematous vocal cords with what appear to be bilateral vocal cord hemorrhage with associated laryngitis. Swallow effort was poor Neurology evaluation to rule out bulbar type Palsy. Treatment: NPO NGT (initially placed for meds/feedings) PegTube/feedings per orders Aspiration precautions Solu-medrol IV DuoNeb nebulizers Zosyn IV In order to accurately reflect this patients severity of illness, please further clarify if the Acute laryngitis, Dysphasia diagnosis post intubation and extubation are: An expected post-procedural or post-surgical condition Integral to the procedure Inherent to the procedure An unexpected post-procedural or post-surgical condition related to surgical care or other, please specify.--- Unable to determine but not an expected complication or finding. KRISHAN Other, please specify Unable to determine (Last Revision: July 2017) MTDD
--- NOTE | 2018-07-18 15:10 | FL ---
EXAMINATION TYPE: FL barium swallow w video DATE OF EXAM: 07/18/2018 COMPARISON: NONE HISTORY: Silent aspiration bedside TECHNIQUE: Fluoroscopy. FINDINGS: Fluoroscopic guidance was provided for the procedure performed in conjunction with the [facility] pathology department. Please see complete report forthcoming from the Speech Pathology departmen t. Various consistencies from thin liquid to solids were administered. Fluoroscopy time 2 minutes 57 seconds Number of images: 0. There was silent aspiration with thin liquids. There is penetration with nectar thick liquids. Honey thickened greater consistencies were without aspiration. Swallowing improved with chin tuck. There is some pooling within the vallecula. There was normal propulsion of the bolus. IMPRESSION: 1. Aspiration with thin liquids and penetration evident with thick liquids.
[2018-07-18 16:36] LABS: Glucose,Whole Blood 146 mg/dL (75-99)
[2018-07-18 20:04] LABS: Glucose,Whole Blood 136 mg/dL (75-99)
[2018-07-18] MEDS: FAT EMULSION 20% 250 ML IV SCH (20:07)
[2018-07-18] MEDS: INSULIN DETEMIR (LEVEMIR) 100 UNIT/ML SYR SQ SCH (20:38)
--- NOTE | 2018-07-18 23:31 | PN ---
PROGRESS NOTE DATE OF SERVICE: July 18, 2018. PRESENTING COMPLAINT: Tired. INTERVAL HISTORY: Patient has been in the ICU with multiple medical problems, presenting with UTI, pneumonia, metabolic acidosis, acute kidney injury, and history of alcoholism. The patient was extubated on July 03 and also had a BiPAP. The patient has been moved out of the ICU then readmitted after bloody bowel movements. Today, patient's TPN lipids have been taken off. The patient has moved out of the ICU. Did have a modified barium swallow. Started on honey thick liquids. The patient is much more cheerful and peppy. REVIEW OF SYSTEMS: Done for constitutional, cardiovascular, GI, pulmonary; relevant findings as above. There is some congestion in the chest. CURRENT MEDICATIONS: Reviewed and include IV Zosyn. PHYSICAL EXAMINATION: VITAL SIGNS: Temperature 97.3, pulse 69, respiration 22, blood pressure 116/73, pulse ox 93 percent on room air. GENERAL APPEARANCE: Sitting up, far more awake. EYES: Pupils equal. Conjunctivae pale. HEENT: External appearance of nose and ears normal. Oral cavity normal. NECK: JVD unable to assess. Mass not palpable. RESPIRATORY: Effort increased. LUNGS: Decreased breath sounds. Some scattered crackles. CARDIOVASCULAR: First and second sounds normal. Minimal edema. ABDOMEN: Soft, nontender. PEG tube in place. PSYCHIATRY: Awake, answering questions appropriately. INVESTIGATIONS: White count 14.6, hemoglobin 9.8, potassium 4.5. BUN 110, creatinine 3.40. Accu-Cheks are noted. A modified barium swallow showed penetration especially with thin liquids. ASSESSMENT: 1. Pneumonia, possibly aspiration. 2. Acute metabolic encephalopathy, resolved. 3. Acute hypoxic respiratory failure status post ventilator support, now on room air. 4. Pneumonia with Staph aureus. 5. Severe esophagitis. 6. Acute hyponatremia from free water deficit, now corrected. 7. Metabolic acidosis. 8. Hypotensive shock from free water deficit, septic shock, now resolved. 9. Acute kidney injury likely from acute tubular necrosis. 10.Acute gastrointestinal bleed. The patient received a total of 9 units of blood. 11.Acute blood loss anemia both from GI bleed and also bleeding around the PEG tube site. 12.Hypothyroidism. 13.Thrombocytopenia likely from multifactorial contribution from sepsis. 14.PEG tube. 15.Right pleural effusion status post thoracentesis on July 13. 16.CODE STATUS: FULL CODE. 17.Dysphagia to thin liquids. PLAN: Continue current medication and treatment plan. Diet will be advanced as per speech therapy. The patient has been moved out of the ICU to the medical floor. Prognosis remains guarded. Follow closely. MMAMANUELL / IJN: [id number] /
[2018-07-19 00:02] LABS: Glucose,Whole Blood 119 mg/dL (75-99)
[2018-07-19] MEDS: INSULIN ASPART (NovoLOG) 100 UNIT/ML VIAL SQ SCH ×6 (00:16→21:36)
[2018-07-19] MEDS: methylPREDNISolone SOD SUCCI 40 MG/ML 1 ML VIAL IV SCH ×3 (00:19→22:12)
[2018-07-19] MEDS: IPRATROPIUM-ALBUTEROL 3 ML NEB INHALATION SCH ×7 (00:31→23:09)
[2018-07-19] MEDS: MORPHINE SULFATE 2 MG/ML SYRINGE IVP PRN (02:07)
[2018-07-19 04:42] LABS: Glucose,Whole Blood 93 mg/dL (75-99)
[2018-07-19 07:03] LABS: Glucose,Whole Blood 73 mg/dL (75-99)
[2018-07-19 07:55] LABS: Anisocytosis Moderate; Basophils % (A) 0 %; Eosinophils % (A) 0 %; HCT 30.9 % (39.0-53.0); HGB 9.7 gm/dL (13.0-17.5); Hypochromasia Slight; Lymphocytes # (A) 0.4 k/uL (1.0-4.8); Lymphocytes % (A) 3 %; MCH 29.8 pg (25.0-35.0); MCHC 31.4 g/dL (31.0-37.0); MCV 94.8 fL (80.0-100.0); Macrocytosis Slight; Mean Platelet Volume 9.8; Monocytes # (A) 0.5 k/uL (0-1.0); Monocytes % (A) 4 %; Neutrophils # (A) 13.8 k/uL (1.3-7.7); Neutrophils % (A) 93 %; Platelet Count 116 k/uL (150-450); Poikilocytosis Slight; RBC 3.26 m/uL (4.30-5.90); RDW 20.5 % (11.5-15.5); WBC 14.8 k/uL (3.8-10.6)
[2018-07-19 08:10] LABS: Calcium 8.5 mg/dL (8.4-10.2); Magnesium 1.9 mg/dL (1.6-2.3); Phosphorus 4.1 mg/dL (2.5-4.5); Potassium 4.2 mmol/L (3.5-5.1)
[2018-07-19] MEDS: PANTOPRAZOLE 40 MG/10 ML VIAL IVP SCH ×2 (08:25→22:12)
[2018-07-19] MEDS: amLODIPine 10 MG TAB PO SCH (08:25)
[2018-07-19] MEDS: METOPROLOL TARTRATE 50 MG TAB PO SCH ×2 (08:25→22:12)
[2018-07-19] MEDS: LEVOTHYROXINE IVP 100 MCG/5 ML VIAL IV SCH (08:55)
[2018-07-19] MEDS: PIPERACILLIN-TAZOBACTAM 3.375 GM in SODIUM CHLORIDE 0.9% 100 ML IVPB SCH ×2 (08:56→15:20)
--- NOTE | 2018-07-19 09:38 | P.PN ---
Subjective Patient is seen in follow-up for acute kidney injury. Renal function is gradually improving. Creatinine 3.28 today. He is noted to have proteinuria along with low complement levels and will need a kidney biopsy down the road. He was transferred out of the intensive care unit on July 18. He is now receiving TFs via PEG tube. TPN discontinued. No active complaints at this time. Vital signs are stable. General: The patient appeared well nourished and normally developed. HEENT: Head exam is unremarkable. Neck is without jugular venous distension. LUNGS: Breath sounds decreased. HEART: Rate and Rhythm are regular. First and second heart sounds normal. No murmurs, rubs or gallops. ABDOMEN: Abdominal exam reveals normal bowel sounds. Non-tender and non- distended. No evidence of peritonitis. EXTREMITITES: No clubbing, cyanosis, or edema. Objective - Vital Signs Vital signs: Vital Signs Temp 97.3 F L 07/19/18 05:00 Pulse 84 07/19/18 07:29 Resp 20 07/19/18 05:00 BP 169/85 07/19/18 05:00 Pulse Ox 96 07/19/18 05:00 Intake & Output 07/18/18 07/19/18 07/19/18 18:59 06:59 18:59 Intake Total 343 500 180 Output Total 885 450 Balance -542 50 180 Weight 71 kg Intake: IV 263 .9 Normal Saline 60 CVP 3 Magnesium Sulfate-D5w Pmx 100 1 gm In Dextrose/Water 1 100ml.bag @ 100 mls/hr IVPB ONCE ONE Rx#: [id number] Piperacillin-Tazobactam 3 100 .375 gm In Sodium Chloride 0.9% 100 ml @ 25 mls/hr IVPB Q12HR [facility] Rx #:[id number] Tube Feeding 500 180 TPN/PPN 80 .9 Normal Saline 80 Output: Urine 885 450 Other: Voiding Method Indwelling Catheter # Voids 0 ABP, PAP, CO, CI - Last Documented Arterial Blood Pressure 158/56 - Labs CBC & Chem 7: 07/19/18 07:36 07/19/18 07:36 Labs: Abnormal Lab Results - Last 24 Hours (Table) 07/18/18 07/18/18 07/18/18 Range/Units 11:54 16:34 20:03 WBC (3.8-10.6) k/uL RBC (4.30-5.90) m/uL Hgb (13.0-17.5) gm/dL Hct (39.0-53.0) % RDW (11.5-15.5) % Plt Count (150-450) k/uL Neutrophils # (1.3-7.7) k/uL Lymphocytes # (1.0-4.8) k/uL Sodium (137-145) mmol/L Chloride (98-107) mmol/L Carbon Dioxide (22-30) mmol/L BUN (9-20) mg/dL Creatinine (0.66-1.25) mg/dL Glucose (74-99) mg/dL POC Glucose (mg/dL) 130 H 146 H 136 H (75-99) mg/dL 07/19/18 07/19/18 07/19/18 Range/Units 00:00 07:01 07:36 WBC (3.8-10.6) k/uL RBC (4.30-5.90) m/uL Hgb (13.0-17.5) gm/dL Hct (39.0-53.0) % RDW (11.5-15.5) % Plt Count (150-450) k/uL Neutrophils # (1.3-7.7) k/uL Lymphocytes # (1.0-4.8) k/uL Sodium 146 H (137-145) mmol/L Chloride 116 H (98-107) mmol/L Carbon Dioxide 21 L (22-30) mmol/L BUN 107 H* (9-20) mg/dL Creatinine 3.28 H (0.66-1.25) mg/dL Glucose 68 L (74-99) mg/dL POC Glucose (mg/dL) 119 H 73 L (75-99) mg/dL 07/19/18 Range/Units 07:36 WBC 14.8 H (3.8-10.6) k/uL RBC 3.26 L (4.30-5.90) m/uL Hgb 9.7 L (13.0-17.5) gm/dL Hct 30.9 L (39.0-53.0) % RDW 20.5 H (11.5-15.5) % Plt Count 116 L (150-450) k/uL Neutrophils # 13.8 H (1.3-7.7) k/uL Lymphocytes # 0.4 L (1.0-4.8) k/uL Sodium (137-145) mmol/L Chloride (98-107) mmol/L Carbon Dioxide (22-30) mmol/L BUN (9-20) mg/dL Creatinine (0.66-1.25) mg/dL Glucose (74-99) mg/dL POC Glucose (mg/dL) (75-99) mg/dL Assessment and Plan Plan: Assessment: 1. Acute kidney injury secondary to ATN. There is also concern for acute GN as he does have sub-nephrotic range proteinuria along with low complement levels. Renal function gradually improving - cr 3.28 today. 2. 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 Maintained on tube feeding via PEG tube. TPN discontinued. 3. 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 Baseline creatinine in the range of 1.8-2. 4. Metabolic acidosis secondary to acute kidney injury. 5. Hypernatremia secondary to lack of oral water intake. 6. Staph aureus pneumonia. Maintained on antibiotics. 7. Anemia of chronic kidney disease maintained on Aranesp. Status post blood transfusion. No active bleeding noted at this time. Status post EGD and colonoscopy on July 16 which revealed no active bleeding. Plan: Maintain tube feeding. Avoid nephrotoxins. Patient will need a kidney biopsy down the road. Monitor bicarb. Start D5W at 50 mL an hour. Patient unable to drink free water due to aspiration.
[2018-07-19] MEDS: DEXTROSE 5% IN WATER 1,000 ML IV SCH (10:56)
[2018-07-19 11:13] LABS: Glucose,Whole Blood 53 mg/dL (75-99)
[2018-07-19 11:29] LABS: Glucose,Whole Blood 50 mg/dL (75-99)
[2018-07-19 11:53] LABS: Glucose,Whole Blood 69 mg/dL (75-99)
[2018-07-19 12:08] LABS: Glucose,Whole Blood 73 mg/dL (75-99)
--- NOTE | 2018-07-19 13:41 | P.PN ---
Subjective Progress Note Date: 07/19/18 Principal diagnosis: Septic shock likely related to Pseudomonas pneumonia infection, urinary tract infection, metabolic acidosis, acute kidney injury Patient is seen today 07/19/2017 in follow-up on the regular medical floor. He is awake and alert in no acute distress. His cough is stronger. His voice is stronger now. He did undergo a barium swallow with video yesterday that revealed aspiration with thin liquids and penetration evident with thick liquids. He's been encouraged regarding chin top and is currently on any thick liquids. He remains on aspiration precautions. No straws. He denies any worsening shortness of breath. He is maintaining O2 saturations in the upper 90s on room air now. He is afebrile. White count 14.8. Hemoglobin 9.7. Sodium 146. Bicarb 21. Creatinine 3.28. He remains on DuoNeb inhalations, IV Solu-Medrol and Zosyn. Chest x-ray revealed bibasilar atelectasis with small bilateral pleural effusions. Stable compared to previous. Objective - Vital Signs Vital signs: Vital Signs Temp 98 F 07/19/18 12:26 Pulse 83 07/19/18 12:26 Resp 22 07/19/18 12:26 BP 156/81 07/19/18 12:26 Pulse Ox 99 07/19/18 12:26 Intake & Output 07/18/18 07/19/18 07/19/18 18:59 06:59 18:59 Intake Total 343 500 360 Output Total 885 450 Balance -542 50 360 Weight 71 kg 71 kg Intake: IV 263 .9 Normal Saline 60 CVP 3 Magnesium Sulfate-D5w Pmx 100 1 gm In Dextrose/Water 1 100ml.bag @ 100 mls/hr IVPB ONCE ONE Rx#: [id number] Piperacillin-Tazobactam 3 100 .375 gm In Sodium Chloride 0.9% 100 ml @ 25 mls/hr IVPB Q12HR [facility] Rx #:[id number] Tube Feeding 500 360 TPN/PPN 80 .9 Normal Saline 80 Output: Urine 885 450 Other: Voiding Method Indwelling Catheter # Voids 0 ABP, PAP, CO, CI - Last Documented Arterial Blood Pressure 158/56 - Exam GENERAL EXAM: Alert, pleasant 68-year-old white male on air, comfortable in no apparent distress. HEAD: Normocephalic/atraumatic. EYES: Normal reaction of pupils, equal size. Conjunctiva pink, sclera white. NOSE: Clear with pink turbinates. THROAT: No erythema or exudates. NECK: No masses, no JVD, no thyroid enlargement, no adenopathy. CHEST: No chest wall deformity. Symmetrical expansion. LUNGS: Equal air entry with few crackles in the bilateral posterior bases. CVS: Regular rate and rhythm, normal S1 and S2, no gallops, no murmurs, no rubs ABDOMEN: Soft, nontender. No hepatosplenomegaly, normal bowel sounds, no guarding or rigidity. EXTREMITIES: No clubbing, no edema, no cyanosis, 2+ pulses and upper and lower extremities. MUSCULOSKELETAL: Muscle strength and tone normal. SPINE: No scoliosis or deformity SKIN: No rashes CENTRAL NERVOUS SYSTEM: Alert and oriented -3. No focal deficits, tone is normal in all 4 extremities. PSYCHIATRIC: Alert and oriented -3. Appropriate affect. Intact judgment and insight. - Labs CBC & Chem 7: 07/19/18 07:36 07/19/18 07:36 Labs: Abnormal Lab Results - Last 24 Hours (Table) 07/18/18 07/18/18 07/19/18 Range/Units 16:34 20:03 00:00 WBC (3.8-10.6) k/uL RBC (4.30-5.90) m/uL Hgb (13.0-17.5) gm/dL Hct (39.0-53.0) % RDW (11.5-15.5) % Plt Count (150-450) k/uL Neutrophils # (1.3-7.7) k/uL Lymphocytes # (1.0-4.8) k/uL Sodium (137-145) mmol/L Chloride (98-107) mmol/L Carbon Dioxide (22-30) mmol/L BUN (9-20) mg/dL Creatinine (0.66-1.25) mg/dL Glucose (74-99) mg/dL POC Glucose (mg/dL) 146 H 136 H 119 H (75-99) mg/dL 07/19/18 07/19/18 07/19/18 Range/Units 07:01 07:36 07:36 WBC 14.8 H (3.8-10.6) k/uL RBC 3.26 L (4.30-5.90) m/uL Hgb 9.7 L (13.0-17.5) gm/dL Hct 30.9 L (39.0-53.0) % RDW 20.5 H (11.5-15.5) % Plt Count 116 L (150-450) k/uL Neutrophils # 13.8 H (1.3-7.7) k/uL Lymphocytes # 0.4 L (1.0-4.8) k/uL Sodium 146 H (137-145) mmol/L Chloride 116 H (98-107) mmol/L Carbon Dioxide 21 L (22-30) mmol/L BUN 107 H* (9-20) mg/dL Creatinine 3.28 H (0.66-1.25) mg/dL Glucose 68 L (74-99) mg/dL POC Glucose (mg/dL) 73 L (75-99) mg/dL 07/19/18 07/19/18 07/19/18 Range/Units 11:08 11:28 11:51 WBC (3.8-10.6) k/uL RBC (4.30-5.90) m/uL Hgb (13.0-17.5) gm/dL Hct (39.0-53.0) % RDW (11.5-15.5) % Plt Count (150-450) k/uL Neutrophils # (1.3-7.7) k/uL Lymphocytes # (1.0-4.8) k/uL Sodium (137-145) mmol/L Chloride (98-107) mmol/L Carbon Dioxide (22-30) mmol/L BUN (9-20) mg/dL Creatinine (0.66-1.25) mg/dL Glucose (74-99) mg/dL POC Glucose (mg/dL) 53 L 50 L 69 L (75-99) mg/dL 07/19/18 Range/Units 12:05 WBC (3.8-10.6) k/uL RBC (4.30-5.90) m/uL Hgb (13.0-17.5) gm/dL Hct (39.0-53.0) % RDW (11.5-15.5) % Plt Count (150-450) k/uL Neutrophils # (1.3-7.7) k/uL Lymphocytes # (1.0-4.8) k/uL Sodium (137-145) mmol/L Chloride (98-107) mmol/L Carbon Dioxide (22-30) mmol/L BUN (9-20) mg/dL Creatinine (0.66-1.25) mg/dL Glucose (74-99) mg/dL POC Glucose (mg/dL) 73 L (75-99) mg/dL Assessment and Plan Assessment: Assessment: 1 acute hypoxic respiratory failure secondary to staph pneumonia,requiring intubation and mechanical ventilation. Staph aureus was MSSA. Patient remains on Zosyn. 2 upper GI bleeding, being evaluated by gastroenterology, EGD and colonoscopy were both nondiagnostic and there was no evidence of active bleeding. However the patient received a total of 9 units of packed RBCs since admission. 3 hypothyroidism 4 thrombocytopenia 5 acute on top of chronic kidney injury being followed by nephrology. Improving steadily over the last few days 6 abnormal liver enzymes related to hypotension and shock liver. Improved. 7 dysphagia secondary to focal cords edema resolving. Plan: The patient was seen and evaluated by Dr. Singh. There is still some concern regarding microaspiration. He'll remain nothing by mouth. Tube feedings continue. Aspiration but cautioned some place. Add daily Lasix. We'll continue to follow and make further recommendations based on his clinical status. I, the cosigning physician, performed a history & physical examination of the patient. Lungs sounds with few scattered rhonchi. Maintaining good O2 saturations in the 90s on room air. I discussed the assessment and plan of care with my nurse practitioner, Kylee Phan. I attest to the above note as dictated by her.
--- NOTE | 2018-07-19 13:46 | XR ---
EXAMINATION TYPE: XR chest 1V portable DATE OF EXAM: 07/19/2018 CLINICAL HISTORY: Difficulty breathing progress study. TECHNIQUE: Single AP portable frontal view of the chest is obtained. COMPARISON: Chest x-ray from one day earlier and older studies. FINDINGS: Cardiac silhouette size is stable and upper limits of normal. Bibasilar opacities remain p resent. Interval removal of left internal jugular central venous catheter. Persistent central vascula r congestion. Osseous structures are demineralized. Surgical change cervical spine is redemonstrated. IMPRESSION: Overall stable findings, persistent central vascular congestion with small left greater than right pleural effusions, correlate for fluid overload state. Persistent bibasilar opacities fav oring compressive atelectasis.
[2018-07-19] MEDS: ERGOCALCIFEROL 50,000 UNIT CAP PO SCH (15:18)
[2018-07-19] MEDS: FUROSEMIDE 20 MG TAB PO SCH (15:21)
[2018-07-19 17:14] LABS: Glucose,Whole Blood 139 mg/dL (75-99)
[2018-07-19 20:41] LABS: Glucose,Whole Blood 148 mg/dL (75-99)
[2018-07-19] MEDS ORDERED: diphenhydrAMINE 50 MG/ML 1 ML VIAL IVP PRN (22:29)
[2018-07-19] MEDS ORDERED: diphenhydrAMINE 50 MG/ML 1 ML VIAL IVP STA (22:30)
--- NOTE | 2018-07-19 23:08 | PN ---
PROGRESS NOTE DATE OF SERVICE: 07/19/2018. PRESENTING COMPLAINT: Tired. INTERVAL HISTORY: This patient was transferred to ICU initially with multiple problems with UTI, pneumonia, metabolic acidosis with acute kidney injury, history of alcoholism. The patient was extubated on July 03 and was readmitted to the ICU with bloody bowel movements, has been in the ICU now for last 2 days. The patient has been aspirating to thin liquids. Is on a pureed diet. Slight baseline cough. Overall feeling much better. REVIEW OF SYSTEMS: Done for constitutional, cardiovascular, GI, pulmonary and relevant findings above. Still some congestion in the chest. CURRENT MEDICATIONS: Reviewed that include Norvasc, p.o. Lasix, IV Solu-Medrol, IV Zosyn. PHYSICAL EXAMINATION: VITAL SIGNS: Temperature 98, pulse 83, respiratory rate 22, blood pressure 136/81, pulse ox 99% on room air. GENERAL APPEARANCE: Sitting up, awake. EYES: Pupils equal. Conjunctivae pale. HEENT: External appearance of nose and ears normal. Oral cavity normal. NECK: JVD unable to assess. Mass not palpable. RESPIRATORY: Effort increased. LUNGS: Decreased breath sounds. Some crackles. CARDIOVASCULAR: 1st and 2nd sounds normal. Minimal edema. ABDOMEN: Soft, nontender. Liver and spleen not palpable. PEG tube in place. PSYCHIATRY: Answering questions. INVESTIGATIONS: White count 3.8, hemoglobin 9.7, platelets 216, potassium 4.2, sodium 146, BUN 107, creatinine 3.28, glucose 68. Chest x-ray shows some fluid . ASSESSMENT: 1. Pneumonia, possibly aspiration. 2. Acute metabolic encephalopathy, improved. 3. Acute hypoxic respiratory failure status post ventilator support. 4. Pneumonia with Staph aureus. 5. Severe esophagitis. 6. Acute hypernatremia from free water deficit. 7. Metabolic acidosis. 8. Hypertensive shock from free water deficit. 9. Septic shock, now corrected. 10.Acute kidney injury likely acute tubular necrosis, slow to respond. 11.Acute gastrointestinal bleed. The patient did see receive of blood. 12.Acute blood loss anemia from gastrointestinal bleed and bleeding on the PEG tube site. 13.Hypothyroidism. 14.Thrombocytopenia likely multifactorial contribution from sepsis. 15.PEG tube. 16.Right pleural effusion status post thoracentesis on July 13. 17.Dysphagia to thin liquids. PLAN: The patient remains on a pureed diet. We will change the Lasix to 40 mg p.o. daily. The patient has remained afebrile. Antibiotics have been quoted by Dr. Jon Cisneros. Follow. The patient did sat up in a chair and did stand up for some time with physical therapy. MMODL / IJN: [id number] /
[2018-07-20] MEDS: INSULIN DETEMIR (LEVEMIR) 100 UNIT/ML SYR SQ SCH ×2 (00:18→20:42)
[2018-07-20] MEDS: PIPERACILLIN-TAZOBACTAM 3.375 GM in SODIUM CHLORIDE 0.9% 100 ML IVPB SCH ×4 (00:42→23:41)
[2018-07-20 00:51] LABS: Glucose,Whole Blood 137 mg/dL (75-99)
[2018-07-20] MEDS: INSULIN ASPART (NovoLOG) 100 UNIT/ML VIAL SQ SCH ×8 (00:52→23:47)
[2018-07-20] MEDS: IPRATROPIUM-ALBUTEROL 3 ML NEB INHALATION SCH ×6 (03:14→23:22)
[2018-07-20 04:28] LABS: Glucose,Whole Blood 203 mg/dL (75-99)
[2018-07-20 07:04] LABS: Glucose,Whole Blood 189 mg/dL (75-99)
[2018-07-20] MEDS: DEXTROSE 5% IN WATER 1,000 ML IV SCH (07:06)
[2018-07-20] MEDS: amLODIPine 10 MG TAB PO SCH (08:20)
[2018-07-20] MEDS: LEVOTHYROXINE IVP 100 MCG/5 ML VIAL IV SCH (08:21)
[2018-07-20] MEDS: METOPROLOL TARTRATE 50 MG TAB PO SCH ×2 (08:21→20:41)
[2018-07-20] MEDS: PANTOPRAZOLE 40 MG/10 ML VIAL IVP SCH ×2 (08:21→20:41)
[2018-07-20] MEDS: FUROSEMIDE 20 MG TAB PO SCH ×2 (08:21→16:34)
[2018-07-20] MEDS: methylPREDNISolone SOD SUCCI 40 MG/ML 1 ML VIAL IV SCH ×2 (08:21→20:41)
[2018-07-20 08:37] LABS: Glucose,Whole Blood 133 mg/dL (75-99)
--- NOTE | 2018-07-20 11:38 | P.PN ---
Subjective Progress Note Date: 07/20/18 Principal diagnosis: Septic shock likely related to Pseudomonas pneumonia infection, urinary tract infection, metabolic acidosis, acute kidney injury The patient is seen today 07/20/2018 in follow-up on the regular medical floor. He is awake and alert in no acute distress. Resting fairly comfortably in bed. Denies any worsening shortness of breath, cough or congestion. He is maintaining good O2 saturations in the 90s on room air. He remains afebrile. Hemodynamically stable. Aspiration precautions continue. He remains on Zosyn. Nourished via PEG tube. Objective - Vital Signs Vital signs: Vital Signs Temp 97.9 F 07/20/18 04:36 Pulse 94 07/20/18 11:10 Resp 22 07/20/18 04:36 BP 147/67 07/20/18 04:36 Pulse Ox 93 L 07/20/18 04:36 Intake & Output 07/19/18 07/20/18 07/20/18 18:59 06:59 18:59 Intake Total 540 310 180 Output Total 1050 500 Balance 540 -740 -320 Weight 71 kg 72.5 kg Intake: Tube Feeding 540 310 180 Output: Urine 550 500 Stool 500 Other: Voiding Method Indwelling Catheter Urinal # Voids 2 # Bowel Movements 1 ABP, PAP, CO, CI - Last Documented Arterial Blood Pressure 158/56 - Exam GENERAL EXAM: Alert, pleasant 68-year-old white male on air, comfortable in no apparent distress. On room air. HEAD: Normocephalic/atraumatic. EYES: Normal reaction of pupils, equal size. Conjunctiva pink, sclera white. NOSE: Clear with pink turbinates. THROAT: No erythema or exudates. NECK: No masses, no JVD, no thyroid enlargement, no adenopathy. CHEST: No chest wall deformity. Symmetrical expansion. LUNGS: Equal air entry with few crackles in the bilateral posterior bases. CVS: Regular rate and rhythm, normal S1 and S2, no gallops, no murmurs, no rubs ABDOMEN: PEG tube exit site clean and dry. Soft, nontender. No hepatosplenomegaly, normal bowel sounds, no guarding or rigidity. EXTREMITIES: No clubbing, no edema, no cyanosis, 2+ pulses and upper and lower extremities. MUSCULOSKELETAL: Muscle strength and tone normal. SPINE: No scoliosis or deformity SKIN: No rashes CENTRAL NERVOUS SYSTEM: No focal deficits, tone is normal in all 4 extremities. PSYCHIATRIC: Alert and oriented -3. Appropriate affect. Intact judgment and insight. - Labs CBC & Chem 7: 07/19/18 07:36 07/19/18 07:36 Labs: Abnormal Lab Results - Last 24 Hours (Table) 07/19/18 07/19/18 07/19/18 Range/Units 11:51 12:05 17:12 POC Glucose (mg/dL) 69 L 73 L 139 H (75-99) mg/dL 07/19/18 07/20/18 07/20/18 Range/Units 20:24 00:48 04:14 POC Glucose (mg/dL) 148 H 137 H 203 H (75-99) mg/dL 07/20/18 07/20/18 Range/Units 07:00 08:35 POC Glucose (mg/dL) 189 H 133 H (75-99) mg/dL Assessment and Plan Assessment: Assessment: 1 acute hypoxic respiratory failure secondary to staph pneumonia,requiring intubation and mechanical ventilation. Staph aureus was MSSA. Patient remains on Zosyn. 2 upper GI bleeding, being evaluated by gastroenterology, EGD and colonoscopy were both nondiagnostic and there was no evidence of active bleeding. However the patient received a total of 9 units of packed RBCs since admission. 3 hypothyroidism 4 thrombocytopenia 5 acute on top of chronic kidney injury being followed by nephrology. Improving steadily over the last few days 6 abnormal liver enzymes related to hypotension and shock liver. Improved. 7 dysphagia secondary to focal cords edema resolving. PEG tube in place. Plan: The patient was seen and evaluated by Dr. Singh. He is currently stable from the pulmonary standpoint. On room air. He remains nothing by mouth and being fed via the PEG tube. Continue aspiration precautions. Initiated on Zosyn. Chest x-ray in a.m. We'll continue to follow and make further recommendations b ased on his clinical status. I, the cosigning physician, performed a history & physical examination of the patient. Lungs sounds with few scattered rhonchi. Maintaining good O2 sat urations in the 90s on room air. I discussed the assessment and plan of care with my nurse practitioner, Kylee Phan. I attest to the above note as dictated by her.
[2018-07-20 11:42] LABS: Calcium 7.9 mg/dL (8.4-10.2); Phosphorus 4.2 mg/dL (2.5-4.5); Potassium 4.3 mmol/L (3.5-5.1)
[2018-07-20 12:08] LABS: Glucose,Whole Blood 123 mg/dL (75-99)
--- NOTE | 2018-07-20 13:15 | P.PN ---
Subjective Patient is seen in follow-up for acute kidney injury. Renal function is stable - cr 3.35 today. He is noted to have proteinuria along with low complement levels and will need a kidney biopsy down the road. He was transferred out of the intensive care unit on July 18. He is now receiving TFs via PEG tube. TPN discontinued. No active complaints at this time. Sodium level 145 today. Vital signs are stable. General: The patient appeared well nourished and normally developed. HEENT: Head exam is unremarkable. Neck is without jugular venous distension. LUNGS: Breath sounds decreased. HEART: Rate and Rhythm are regular. First and second heart sounds normal. No murmurs, rubs or gallops. ABDOMEN: Abdominal exam reveals normal bowel sounds. Non-tender and non- distended. No evidence of peritonitis. EXTREMITITES: No clubbing, cyanosis, or edema. Objective - Vital Signs Vital signs: Vital Signs Temp 97.9 F 07/20/18 04:36 Pulse 94 07/20/18 11:10 Resp 22 07/20/18 04:36 BP 147/67 07/20/18 04:36 Pulse Ox 93 L 07/20/18 04:36 Intake & Output 07/19/18 07/20/18 07/20/18 18:59 06:59 18:59 Intake Total 540 310 360 Output Total 1050 500 Balance 540 -740 -140 Weight 71 kg 72.5 kg Intake: Tube Feeding 540 310 360 Output: Urine 550 500 Stool 500 Other: Voiding Method Indwelling Catheter Urinal # Voids 2 # Bowel Movements 1 ABP, PAP, CO, CI - Last Documented Arterial Blood Pressure 158/56 - Labs CBC & Chem 7: 07/19/18 07:36 07/20/18 11:01 Labs: Abnormal Lab Results - Last 24 Hours (Table) 07/19/18 07/19/18 07/20/18 Range/Units 17:12 20:24 00:48 Chloride (98-107) mmol/L BUN (9-20) mg/dL Creatinine (0.66-1.25) mg/dL POC Glucose (mg/dL) 139 H 148 H 137 H (75-99) mg/dL Calcium (8.4-10.2) mg/dL 07/20/18 07/20/18 07/20/18 Range/Units 04:14 07:00 08:35 Chloride (98-107) mmol/L BUN (9-20) mg/dL Creatinine (0.66-1.25) mg/dL POC Glucose (mg/dL) 203 H 189 H 133 H (75-99) mg/dL Calcium (8.4-10.2) mg/dL 07/20/18 07/20/18 Range/Units 11:01 12:06 Chloride 116 H (98-107) mmol/L BUN 98 H (9-20) mg/dL Creatinine 3.35 H (0.66-1.25) mg/dL POC Glucose (mg/dL) 123 H (75-99) mg/dL Calcium 7.9 L (8.4-10.2) mg/dL Assessment and Plan Plan: Assessment: 1. Acute kidney injury secondary to ATN. There is also concern for acute GN as he does have sub-nephrotic range proteinuria along with low complement levels. Renal function stable - creatinine 2.35 today. 2. 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 Maintained on tube feeding via PEG tube. TPN discontinued. 3. 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 Baseline creatinine in the range of 1.8-2. 4. Metabolic acidosis secondary to acute kidney injury. Better. 5. Hypernatremia secondary to lack of oral water intake. Slightly better. 6. Staph aureus pneumonia. Maintained on antibiotics. 7. Anemia of chronic kidney disease maintained on Aranesp. Status post blood transfusion. No active bleeding noted at this time. Status post EGD and colonoscopy on July 16 which revealed no active bleeding. 8. Mild volume overload maintained on oral diuretics. Plan: Maintain tube feeding. Maintain D5W at 50 mL an hour. If hypoglycemia is resolved, D5W can be discontinued and he can be started on free water flushes via tube feeding at a rate of 200 mL every 4 hours. Patient unable to drink free water due to aspiration. Avoid nephrotoxins. Patient will need a kidney biopsy down the road.
[2018-07-20 13:32] LABS: Potassium 4.3 mmol/L (3.5-5.1)
[2018-07-20 13:33] LABS: Calcium 7.8 mg/dL (8.4-10.2)
[2018-07-20 16:59] LABS: Glucose,Whole Blood 185 mg/dL (75-99)
[2018-07-20 20:15] LABS: Glucose,Whole Blood 131 mg/dL (75-99)
[2018-07-20] MEDS: MORPHINE SULFATE 2 MG/ML SYRINGE IVP PRN (22:27)
[2018-07-20 23:57] LABS: Glucose,Whole Blood 122 mg/dL (75-99)
[2018-07-21] MEDS: IPRATROPIUM-ALBUTEROL 3 ML NEB INHALATION SCH ×6 (03:01→23:02)
[2018-07-21 04:27] LABS: Glucose,Whole Blood 120 mg/dL (75-99)
[2018-07-21] MEDS: INSULIN ASPART (NovoLOG) 100 UNIT/ML VIAL SQ SCH ×6 (04:27→23:24)
[2018-07-21] MEDS: DEXTROSE 5% IN WATER 1,000 ML IV SCH ×2 (04:27→20:42)
--- NOTE | 2018-07-21 07:15 | PN ---
PROGRESS NOTE DATE OF SERVICE: July 20, 2018. PRESENTING COMPLAINT: Tired. INTERVAL HISTORY: This is a patient with multiple problems presented with UTI, pneumonia, metabolic acidosis, acute kidney injury, history of alcoholism. The patient was in the ICU then extubated on July 03, was readmitted to the ICU with bloody bowel movements, now has been moved out of the ICU. The patient has been aspirating, then has been made n.p.o. Patient is getting PEG tube feeding with congested in the chest. REVIEW OF SYSTEMS: Done for constitutional, cardiovascular, GI, pulmonary and relevant findings as above. CURRENT MEDICATIONS: Reviewed that include IV Zosyn, IV Solu-Medrol, bronchodilators. PHYSICAL EXAMINATION: Temperature 97.4, pulse 81, respiratory 18, blood pressure 147/69, pulse ox 93 percent on room air. GENERAL APPEARANCE: Propped up, awake. EYES: Pupils equal. Conjunctivae pale. NECK: JVD unable to assess. Mass not palpable. RESPIRATORY: Effort increased. LUNGS: Scattered crackles. Decreased breath sounds. CARDIOVASCULAR: 1st and 2nd sounds normal. No edema. ABDOMEN: Soft, nontender. Liver and spleen not palpable. PEG tube in place. PSYCHIATRY: Awake, answering questions. INVESTIGATIONS: Potassium 4.3, BUN 98, creatinine 3.39. Accu-Cheks are noted. ASSESSMENT: 1. Pneumonia, possibly aspiration. 2. Acute metabolic encephalopathy, improved. 3. Acute hypoxic respiratory failure status post ventilator support. 4. Pneumonia with Staph aureus. 5. Severe esophagitis. 6. Acute hyponatremia from free water deficit improved. 7. Metabolic acidosis. 8. Hypotensive shock from free water deficit. 9. Septic shock, now corrected. 10.Acute kidney injury likely acute tubular necrosis, slow to respond. 11.Acute gastrointestinal bleed. Patient did receive several units of blood. 12.Acute blood loss anemia from above and bleeding from the PEG tube site. 13.Hypothyroidism. 14.Thrombocytopenia likely multifactorial including contribution from sepsis. 15.PEG tube feeding. 16.Right pleural effusion status post thoracentesis on July 13. 17.Dysphagia to thin liquids the patient again has been made n.p.o. PLAN: Patient has been made n.p.o. Prognosis guarded. Will discuss with Dr. Singh to see if patient might benefit from bronchoscopy with lavage. PT/OT to work with the patient. MMODL / IJN: [id number] /
[2018-07-21] MEDS: PANTOPRAZOLE 40 MG/10 ML VIAL IVP SCH ×2 (07:33→20:16)
[2018-07-21] MEDS: PIPERACILLIN-TAZOBACTAM 3.375 GM in SODIUM CHLORIDE 0.9% 100 ML IVPB SCH ×3 (07:33→23:23)
[2018-07-21] MEDS: LEVOTHYROXINE IVP 100 MCG/5 ML VIAL IV SCH (07:34)
[2018-07-21] MEDS: amLODIPine 10 MG TAB PO SCH (07:34)
[2018-07-21] MEDS: methylPREDNISolone SOD SUCCI 40 MG/ML 1 ML VIAL IV SCH ×2 (07:34→20:15)
[2018-07-21] MEDS: FUROSEMIDE 20 MG TAB PO SCH ×2 (07:34→15:24)
[2018-07-21] MEDS: METOPROLOL TARTRATE 50 MG TAB PO SCH ×2 (07:34→20:20)
[2018-07-21 08:24] LABS: Glucose,Whole Blood 133 mg/dL (75-99)
--- NOTE | 2018-07-21 09:11 | XR ---
EXAMINATION TYPE: XR chest 1V portable DATE OF EXAM: 07/21/2018 Comparison: 07/19/2018 Clinical History: 68-year-old male Aspiration pneumonia Findings: Heart upper limits of normal in size. Small to moderate effusions with bibasilar opacities persist. E ffusions may be slightly larger in the interval. Impression: Small to moderate effusions with bibasilar atelectasis and/or consolidation, slightly increased in th e interval.
[2018-07-21 09:38] LABS: Calcium 7.5 mg/dL (8.4-10.2); Magnesium 1.9 mg/dL (1.6-2.3); Phosphorus 4.8 mg/dL (2.5-4.5); Potassium 3.7 mmol/L (3.5-5.1)
[2018-07-21] MEDS ORDERED: diphenhydrAMINE 25 MG CAP PO PRN (11:14)
[2018-07-21 11:30] LABS: Glucose,Whole Blood 166 mg/dL (75-99)
--- NOTE | 2018-07-21 15:02 | P.PN ---
Subjective Progress Note Date: 07/21/18 Principal diagnosis: Patient is seen in follow-up for acute kidney injury. Renal function is stable - cr 3.34 today. He is noted to have proteinuria along with low complement lev els and will need a kidney biopsy down the road. He was transferred out of the intensive care unit on July 18. He is now receiving TFs via PEG tube. TPN discontinued. No active complaints at this time. Sodium level 145 today. Initially he was admitted with staph pneumonia history of all call his him pancreatitis stent placement remotely as well as thrombocytopenia. Last platelet count is 116,000. Urine output is 900 mL Objective - Vital Signs Vital signs: Vital Signs Temp 97.9 F 07/21/18 11:53 Pulse 80 07/21/18 14:40 Resp 17 07/21/18 14:40 BP 152/76 07/21/18 11:53 Pulse Ox 95 07/21/18 11:53 Intake & Output 07/20/18 07/21/18 07/21/18 18:59 06:59 18:59 Intake Total 540 540 135 Output Total 900 400 Balance -360 540 -265 Weight 69.5 kg Intake: Tube Feeding 540 540 135 Output: Urine 900 400 Other: Voiding Method Urinal Urinal Urinal Incontinent Diaper Incontinent # Voids 4 4 # Bowel Movements 3 ABP, PAP, CO, CI - Last Documented Arterial Blood Pressure 158/56 Vital signs are stable. General: The patient appeared well nourished and normally developed. HEENT: Head exam is unremarkable. Neck is without jugular venous distension. LUNGS: Breath sounds decreased, bilateral occasional crackles. A chest x-ray shows small to moderate bilateral effusions with atelectasis and or consolation. HEART: Rate and Rhythm are regular. First and second heart sounds normal. No murmurs, rubs or gallops. ABDOMEN: Abdominal exam reveals normal bowel sounds. Non-tender and non- distended. No evidence of peritonitis. EXTREMITITES: No clubbing, cyanosis, or edema. Neurologically awake alert oriented - Labs CBC & Chem 7: 07/19/18 07:36 07/21/18 08:49 Labs: Abnormal Lab Results - Last 24 Hours (Table) 07/20/18 07/20/18 07/20/18 Range/Units 16:55 20:14 23:40 Chloride (98-107) mmol/L BUN (9-20) mg/dL Creatinine (0.66-1.25) mg/dL Glucose (74-99) mg/dL POC Glucose (mg/dL) 185 H 131 H 122 H (75-99) mg/dL Calcium (8.4-10.2) mg/dL Phosphorus (2.5-4.5) mg/dL 07/21/18 07/21/18 07/21/18 Range/Units 04:24 08:23 08:49 Chloride 114 H (98-107) mmol/L BUN 96 H (9-20) mg/dL Creatinine 3.34 H (0.66-1.25) mg/dL Glucose 122 H (74-99) mg/dL POC Glucose (mg/dL) 120 H 133 H (75-99) mg/dL Calcium 7.5 L (8.4-10.2) mg/dL Phosphorus 4.8 H (2.5-4.5) mg/dL 07/21/18 Range/Units 11:29 Chloride (98-107) mmol/L BUN (9-20) mg/dL Creatinine (0.66-1.25) mg/dL Glucose (74-99) mg/dL POC Glucose (mg/dL) 166 H (75-99) mg/dL Calcium (8.4-10.2) mg/dL Phosphorus (2.5-4.5) mg/dL Assessment and Plan Assessment: Assessment: 1. Acute kidney injury secondary to ATN. There is also concern for acute GN as he does have sub-nephrotic range proteinuria along with low complement levels. Renal function stable - creatinine 3.39 today. 2. 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 Maintained on tube feeding via PEG tube. TPN discontinued. 3. 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 Baseline creatinine in the range of 1.8-2. 4. Metabolic acidosis secondary to acute kidney injury. Better. 5. Hypernatremia secondary to lack of oral water intake. Slightly better. 6. Staph aureus pneumonia. Maintained on antibiotics. 7. Anemia of chronic kidney disease maintained on Aranesp. Status post blood transfusion. No active bleeding noted at this time. Status post EGD and colonoscopy on July 16 which revealed no active bleeding. 8. Mild volume overload maintained on oral diuretics. 9. Mild degree of hypernatremia secondary to chronic kidney disease and decrease free water 10. Bilateral small effusions with atelectasis and/or consolidation Plan: Maintain tube feeding. Maintain water flushes via tube feeding at a rate of 200 mL every 4 hours. Patient unable to drink free water due to aspiration. Avoid nephrotoxins. Patient may need a kidney biopsy down the road.
[2018-07-21 16:31] LABS: Glucose,Whole Blood 195 mg/dL (75-99)
[2018-07-21 20:09] LABS: Glucose,Whole Blood 135 mg/dL (75-99)
[2018-07-21] MEDS: INSULIN DETEMIR (LEVEMIR) 100 UNIT/ML SYR SQ SCH (20:49)
[2018-07-21 23:25] LABS: Glucose,Whole Blood 80 mg/dL (75-99)
--- NOTE | 2018-07-22 00:48 | PN ---
PROGRESS NOTE DATE OF SERVICE: July 21, 2018. PRESENT COMPLAINT: Tired. INTERVAL HISTORY: Patient admitted with UTI, pneumonia, metabolic acidosis, acute kidney injury, history of alcoholism. The patient was in the ICU, then extubated on July 03 and readmitted to the ICU with bloody bowel movements. Then, now has moved out of the ICU. Because of aspiration, patient has been made n.p.o. PEG tube feeding is to go. The patient is not very happy with the fact that he has been made n.p.o. and remains to have a congested cough. REVIEW OF SYSTEMS: Done for constitutional, cardiovascular, GI, pulmonary and relevant findings as above. CURRENT MEDICATIONS: Reviewed that include DuoNeb, p.o. Lasix, IV Solu-Medrol and IV Zosyn. PHYSICAL EXAMINATION: VITAL SIGNS: Temperature 97.8, pulse 80, respiratory 18, blood pressure 130/65, pulse ox 95 percent on 3 L. GENERAL APPEARANCE: Lying in bed, awake. EYES: Pupils equal. Conjunctivae normal. NECK: JVD not raised. Mass not palpable. RESPIRATORY: Effort increased. LUNGS: Decreased breath sounds. Some scattered crackles. CARDIOVASCULAR: First and second sounds normal. No edema. ABDOMEN: Soft, nontender. Liver, spleen, palpable. PEG tube in place. PSYCHIATRY: Awake, answering questions appropriately. INVESTIGATIONS: Potassium 3.7, BUN 96, creatinine 3.34. ASSESSMENT: 1. Pneumonia probably aspiration. 2. Acute metabolic encephalopathy, improved. 3. Acute hypoxic respiratory failure status post ventilator support. 4. Pneumonia, Staph aureus. 5. Severe esophagitis. 6. Acute hypernatremia from free water deficit improved. 7. Metabolic acidosis. 8. Hypotensive shock from free water deficit. 9. Septic shock, now corrected. 10.Acute kidney injury likely acute tubular necrosis, slow to respond. 11.Acute gastrointestinal bleed. The patient did receive 2 units of blood. 12.Acute blood loss anemia from above and also bleeding from the PEG tube site. 13.Hypothyroidism. 14.Thrombocytopenia likely multifactorial including contribution from sepsis. 15.PEG tube feeding continues. 16.Right pleural effusion status post thoracentesis of July 13. 17.Dysphagia with thin liquids. The patient has been made n.p.o. PLAN: Continue current medication and treatment plan. Work with PT. Prognosis remains guarded. MMODL / IJN: [id number] /
[2018-07-22 00:54] LABS: Glucose,Whole Blood 56 mg/dL (75-99)
[2018-07-22] MEDS ORDERED: DEXTROSE 50% SYRINGE 50 ML IVP ONE (01:07)
[2018-07-22 01:23] LABS: Glucose,Whole Blood 167 mg/dL (75-99)
[2018-07-22] MEDS: IPRATROPIUM-ALBUTEROL 3 ML NEB INHALATION SCH ×5 (03:03→19:40)
[2018-07-22 03:48] LABS: Glucose,Whole Blood 92 mg/dL (75-99)
[2018-07-22] MEDS: INSULIN ASPART (NovoLOG) 100 UNIT/ML VIAL SQ SCH ×6 (04:17→23:41)
[2018-07-22] MEDS ORDERED: DEXTROSE 50% SYRINGE 50 ML IVP PRN (06:16)
[2018-07-22] MEDS: PANTOPRAZOLE 40 MG/10 ML VIAL IVP SCH ×2 (08:16→20:27)
[2018-07-22] MEDS: METOPROLOL TARTRATE 50 MG TAB PO SCH ×2 (08:17→20:27)
[2018-07-22] MEDS: FUROSEMIDE 20 MG TAB PO SCH ×2 (08:17→16:44)
[2018-07-22] MEDS: amLODIPine 10 MG TAB PO SCH (08:17)
[2018-07-22] MEDS: PIPERACILLIN-TAZOBACTAM 3.375 GM in SODIUM CHLORIDE 0.9% 100 ML IVPB SCH ×2 (08:17→16:41)
[2018-07-22] MEDS: methylPREDNISolone SOD SUCCI 40 MG/ML 1 ML VIAL IV SCH ×2 (08:17→20:27)
[2018-07-22] MEDS: LEVOTHYROXINE IVP 100 MCG/5 ML VIAL IV SCH (08:19)
[2018-07-22 08:24] LABS: Glucose,Whole Blood 143 mg/dL (75-99)
[2018-07-22 08:58] LABS: Calcium 7.2 mg/dL (8.4-10.2); Magnesium 1.8 mg/dL (1.6-2.3); Phosphorus 5.3 mg/dL (2.5-4.5); Potassium 3.5 mmol/L (3.5-5.1)
[2018-07-22 12:19] LABS: Glucose,Whole Blood 150 mg/dL (75-99)
[2018-07-22] MEDS: DEXTROSE 5% IN WATER 1,000 ML IV SCH (12:21)
--- NOTE | 2018-07-22 13:56 | P.PN ---
Subjective Progress Note Date: 07/22/18 Principal diagnosis: Patient is seen in follow-up for acute kidney injury. Renal function is stable - cr 3.34 today. He is noted to have proteinuria along with low complement lev els and will need a kidney biopsy down the road. He had acute hypoxic respiratory failure secondary to staph pneumonia,requiring intubation and mechanical ventilation. Staph aureus was MSSA. .He was transferred out of the intensive care unit on July 18. He is now receiving TFs via PEG tube. TPN discontinued. No active complaints at this time. Initially he was admitted with staph pneumonia acute hypoxic respiratory failure secondary to staph pneumonia,requiring intubation and mechanical ventilation. Staph aureus was MSSA.,history of pancreatitis stent placement remotely as well as thrombocytopenia. Last platelet count is 116,000. 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, requiring biliary stenting Objective - Vital Signs Vital signs: Vital Signs Temp 98.0 F 07/22/18 12:29 Pulse 87 07/22/18 12:29 Resp 18 07/22/18 12:29 BP 149/77 07/22/18 12:29 Pulse Ox 96 07/22/18 12:29 Intake & Output 07/21/18 07/22/18 07/22/18 18:59 06:59 18:59 Intake Total 135 135 90 Output Total 400 900 600 Balance -265 -765 -510 Weight 70 kg Intake: Tube Feeding 135 135 90 Output: Urine 400 900 600 Other: Voiding Method Urinal Urinal Urinal Diaper Diaper Diaper Incontinent Incontinent Incontinent # Voids 4 # Bowel Movements 1 2 ABP, PAP, CO, CI - Last Documented Arterial Blood Pressure 158/56 On examination is awake alert oriented comfortable HEENT exam no JVP neck is supple no facial asymmetry Lungs clear to auscultation good air entry bilaterally Heart sounds are unremarkable for any murmur rub gallop Abdomen soft nontender Extremity exam reveals no edema Neurologically awake alert oriented - Labs CBC & Chem 7: 07/19/18 07:36 07/22/18 07:50 Labs: Abnormal Lab Results - Last 24 Hours (Table) 07/21/18 07/21/18 07/22/18 Range/Units 16:30 20:08 00:53 Chloride (98-107) mmol/L BUN (9-20) mg/dL Creatinine (0.66-1.25) mg/dL Glucose (74-99) mg/dL POC Glucose (mg/dL) 195 H 135 H 56 L (75-99) mg/dL Calcium (8.4-10.2) mg/dL Phosphorus (2.5-4.5) mg/dL 07/22/18 07/22/18 07/22/18 Range/Units 01:22 07:50 08:14 Chloride 110 H (98-107) mmol/L BUN 87 H (9-20) mg/dL Creatinine 3.38 H (0.66-1.25) mg/dL Glucose 133 H (74-99) mg/dL POC Glucose (mg/dL) 167 H 143 H (75-99) mg/dL Calcium 7.2 L (8.4-10.2) mg/dL Phosphorus 5.3 H (2.5-4.5) mg/dL 07/22/18 Range/Units 12:09 Chloride (98-107) mmol/L BUN (9-20) mg/dL Creatinine (0.66-1.25) mg/dL Glucose (74-99) mg/dL POC Glucose (mg/dL) 150 H (75-99) mg/dL Calcium (8.4-10.2) mg/dL Phosphorus (2.5-4.5) mg/dL Assessment and Plan Assessment: Assessment: 1. Acute kidney injury secondary to ATN. There is also concern for acute GN as he does have sub-nephrotic range proteinuria along with low complement levels. Renal function stable - creatinine 3.38 today. 2. 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 Maintained on tube feeding via PEG tube. TPN discontinued. 3. 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 Baseline creatinine in the range of 1.8-2. 4. Metabolic acidosis secondary to acute kidney injury. Better. 5. Hypernatremia secondary to lack of oral water intake. Slightly better. 6. Staph aureus pneumonia. Maintained on antibiotics. Resolved 7. Anemia of chronic kidney disease maintained on Aranesp. Status post blood transfusion. No active bleeding noted at this time. Status post EGD and colonoscopy on July 16 which revealed no active bleeding. 8. Mild volume overload maintained on oral diuretics. 9. Bilateral small effusions with atelectasis and/or consolidation Plan: Maintain tube feeding. Maintain water flushes via tube feeding at a rate of 200 mL every 4 hours. Patient unable to drink free water due to aspiration. Avoid nephrotoxins. Patient may need a kidney biopsy down the road.
[2018-07-22 16:20] LABS: Glucose,Whole Blood 174 mg/dL (75-99)
[2018-07-22] MEDS: ERGOCALCIFEROL 50,000 UNIT CAP PO SCH (16:40)
[2018-07-22 19:46] LABS: Glucose,Whole Blood 173 mg/dL (75-99)
[2018-07-22] MEDS: INSULIN DETEMIR (LEVEMIR) 100 UNIT/ML SYR SQ SCH (20:08)
[2018-07-22 23:40] LABS: Glucose,Whole Blood 134 mg/dL (75-99)
[2018-07-23] MEDS: IPRATROPIUM-ALBUTEROL 3 ML NEB INHALATION SCH ×6 (00:05→21:25)
[2018-07-23 03:49] LABS: Glucose,Whole Blood 210 mg/dL (75-99)
[2018-07-23] MEDS: INSULIN ASPART (NovoLOG) 100 UNIT/ML VIAL SQ SCH ×5 (03:51→21:02)
--- NOTE | 2018-07-23 04:11 | PN ---
PROGRESS NOTE DATE OF SERVICE: July 22, 2018. PRESENTING COMPLAINT: Tired. INTERVAL HISTORY: The patient admitted, UTI, pneumonia, metabolic acidosis, acute kidney injury, history of alcoholism, was in the ICU, then extubated on July 03 and readmitted to the ICU with bloody bowel movements. Has been out of ICU. Because of recurrent aspiration, has been made n.p.o. PEG tube feeding is in place. Other congested-sounding appearing but doing well. Pulse ox on room air. Very keen to eat but at high risk of aspiration. REVIEW OF SYSTEMS: Done for constitutional, cardiovascular, GI, pulmonary; relevant findings as above. Patient reluctant to get up in a chair. CURRENT MEDICATIONS: Reviewed that include IV Zosyn, IV Solu-Medrol. PHYSICAL EXAMINATION: VITAL SIGNS: Temperature 97.9, pulse 87, respiratory rate 16, blood pressure 139/68, pulse ox 99% on room air. GENERAL APPEARANCE: Lying in bed, awake. EYES: Pupils equal. Conjunctivae normal. NECK: JVD unable to assess. Mass not palpable. RESPIRATORY: Effort increased. LUNGS: Decreased breath sounds. Some crackles. CARDIOVASCULAR: First and second sounds normal. No edema. ABDOMEN: Soft, nontender. Liver and spleen not palpable. PEG tube in place. PSYCHIATRY: Awake, answering questions. INVESTIGATIONS: BUN 87, creatinine 3.38. ASSESSMENT: 1. Pneumonia probably aspiration, recurrent. 2. Acute metabolic encephalopathy, improved. 3. Acute hypoxic respiratory failure status post ventilator support, now on room air. 4. Severe esophagitis. 5. Acute hypernatremia from free water deficit corrected. 6. Metabolic acidosis. 7. Hypertensive shock from free water deficit. 8. Septic shock, now corrected. 9. Acute kidney injury likely acute tubular necrosis, slow to respond. 10.Acute gastrointestinal bleed. Patient did receive blood. 11.Acute blood loss anemia from above and bleeding from the PEG tube site. 12.Hypothyroidism. 13.Thrombocytopenia likely multifactorial including contribution of sepsis. 14.PEG tube feeding. 15.Right pleural effusion status post thoracentesis on July 13. 16.Dysphagia to thin liquids. Patient has improvement in the n.p.o. PLAN: At this point we will switch the patient over to oral prednisone, antibiotics per Dr. Cisneros. We will get a final word from Pulmonary. MMODL / IJN: [id number] /
--- NOTE | 2018-07-23 08:23 | P.PN ---
Subjective Patient is seen in follow-up for acute kidney injury. Renal function is stable - cr 3.38 as of yesterday. He is noted to have proteinuria along with low complement levels and will need a kidney biopsy down the road. He was transferred out of the intensive care unit on July 18. He is now receiving TFs via PEG tube. TPN discontinued. No active complaints at this time. Maintained on D5W for hypernatremia and episodes of hypoglycemia. Vital signs are stable. General: The patient appeared well nourished and normally developed. HEENT: Head exam is unremarkable. Neck is without jugular venous distension. LUNGS: Breath sounds decreased. HEART: Rate and Rhythm are regular. First and second heart sounds normal. No murmurs, rubs or gallops. ABDOMEN: Abdominal exam reveals normal bowel sounds. Non-tender and non- distended. No evidence of peritonitis. EXTREMITITES: No clubbing, cyanosis, or edema. Objective - Vital Signs Vital signs: Vital Signs Temp 98.1 F 07/23/18 05:00 Pulse 83 07/23/18 05:00 Resp 18 07/23/18 05:00 BP 133/63 07/23/18 05:00 Pulse Ox 97 07/23/18 05:00 Intake & Output 07/22/18 07/23/18 07/23/18 18:59 06:59 18:59 Intake Total 135 1040 Output Total 600 950 Balance -465 90 Weight 69.5 kg Intake: Intake, IV Titration 500 Amount Dextrose 5% in Water 1, 400 000 ml @ 50 mls/hr IV . Q20H [facility] Rx#:[id number] Piperacillin-Tazobactam 3 100 .375 gm In Sodium Chloride 0.9% 100 ml @ 25 mls/hr IVPB Q8HR [facility] Rx# :[id number] Tube Feeding 135 540 Output: Urine 600 950 Other: Voiding Method Urinal Urinal Diaper Diaper Incontinent Incontinent # Bowel Movements 2 1 ABP, PAP, CO, CI - Last Documented Arterial Blood Pressure 158/56 - Labs CBC & Chem 7: 07/19/18 07:36 07/22/18 07:50 Labs: Abnormal Lab Results - Last 24 Hours (Table) 07/22/18 07/22/18 07/22/18 Range/Units 07:50 08:14 12:09 Chloride 110 H (98-107) mmol/L BUN 87 H (9-20) mg/dL Creatinine 3.38 H (0.66-1.25) mg/dL Glucose 133 H (74-99) mg/dL POC Glucose (mg/dL) 143 H 150 H (75-99) mg/dL Calcium 7.2 L (8.4-10.2) mg/dL Phosphorus 5.3 H (2.5-4.5) mg/dL 07/22/18 07/22/18 07/22/18 Range/Units 16:18 19:44 23:38 Chloride (98-107) mmol/L BUN (9-20) mg/dL Creatinine (0.66-1.25) mg/dL Glucose (74-99) mg/dL POC Glucose (mg/dL) 174 H 173 H 134 H (75-99) mg/dL Calcium (8.4-10.2) mg/dL Phosphorus (2.5-4.5) mg/dL 07/23/18 Range/Units 03:48 Chloride (98-107) mmol/L BUN (9-20) mg/dL Creatinine (0.66-1.25) mg/dL Glucose (74-99) mg/dL POC Glucose (mg/dL) 210 H (75-99) mg/dL Calcium (8.4-10.2) mg/dL Phosphorus (2.5-4.5) mg/dL Assessment and Plan Plan: Assessment: 1. Acute kidney injury secondary to ATN. There is also concern for acute GN as he does have sub-nephrotic range proteinuria along with low complement levels. Renal function stable - creatinine 3.38 as of yesterday. 2. 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 Maintained on tube feeding via PEG tube. TPN discontinued. 3. 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 Baseline creatinine in the range of 1.8-2. 4. Metabolic acidosis secondary to acute kidney injury. Better. 5. Hypernatremia secondary to lack of oral water intake. Better with D5W. 6. Staph aureus pneumonia. Maintained on antibiotics. 7. Anemia of chronic kidney disease maintained on Aranesp. Status post blood transfusion. No active bleeding noted at this time. Status post EGD and colonoscopy on July 16 which revealed no active bleeding. 8. Mild volume overload maintained on oral diuretics. Plan: Maintain tube feeding. Maintain D5W at 50 mL an hour. If hypoglycemia is resolved, D5W can be d iscontinued and he can be started on free water flushes via tube feeding at a rate of 200 mL every 4 hours. Patient unable to drink free water due to aspiration. Avoid nephrotoxins. Patient will need a kidney biopsy down the road.
[2018-07-23 08:49] LABS: Glucose,Whole Blood 190 mg/dL (75-99)
[2018-07-23] MEDS: FUROSEMIDE 20 MG TAB PO SCH ×2 (09:53→17:08)
[2018-07-23] MEDS: predniSONE 20 MG TAB PO SCH (09:53)
[2018-07-23] MEDS: amLODIPine 10 MG TAB PO SCH (09:53)
[2018-07-23] MEDS: METOPROLOL TARTRATE 50 MG TAB PO SCH ×2 (09:53→21:03)
[2018-07-23] MEDS: PANTOPRAZOLE 40 MG/10 ML VIAL IVP SCH ×2 (09:54→21:03)
[2018-07-23] MEDS: AMOXIC-POT CLAV 875-125MG 1 EACH TAB PO SCH ×2 (09:54→21:03)
[2018-07-23] MEDS: LEVOTHYROXINE IVP 100 MCG/5 ML VIAL IV SCH (09:57)
[2018-07-23 11:11] LABS: Glucose,Whole Blood 146 mg/dL (75-99)
[2018-07-23 11:36] VITALS: BMI 23.3
--- NOTE | 2018-07-23 13:58 | PN ---
PROGRESS NOTE This is a 68-year-old gentleman who was admitted way back on June 29. He has a history of hypoxemic respiratory failure secondary to Staph pneumonia, which required intubation and mechanical ventilation. In addition, he has a history of upper GI bleed. He did receive a total of 9 units of PRBCs during his admission here. Other diagnoses include hypothyroidism, thrombocytopenia, acute on chronic kidney injury, abnormal liver enzymes, and dysphagia with focal cord edema. The patient actually had a PEG tube placed. We were asked by Dr. Elliott today whether or not the patient needed a bronchoscopy prior to discharge. Currently, the patient is resting comfortably in the room. He is lying nearly flat in bed. He is only requiring 2 L of nasal O2. He is not demonstrating any signs or symptoms of respiratory distress. There is no conversational dyspnea. There is no use of accessory muscles. There is no audible wheezing. Anyway, the patient was asked to cough. The cough is mostly dry. The patient is likely being discharged to a shelter or rehab facility. Current vital signs are reviewed. His temperature is 97.6. Heart rate is 84. Respiratory rate is 16. Blood pressure 136/64, mean 88 and 2 L saturation 98%. Appears in no acute distress. HEENT examination is grossly unremarkable. Mucous membranes are moist. NECK: Supple. Full range of motion. No adenopathy. Neck veins are flat. Cardiovascular examination reveals regular rhythm and rate. Heart rate in mid 80s. S1, S2 normal. There is no murmur. Lungs reveal a few scattered rhonchi. Breath sounds equal bilaterally. No wheezes or crackles. Abdomen is soft. Bowel sounds are heard. Extremities are intact. No cyanosis, clubbing, or edema. Skin without rash. Neurologic examination is brief but nonfocal. Labs are reviewed. Nothing new from today. No recent chest x-rays to report. The last chest x-ray was done on July 21. It shows some minimal bibasilar atelectasis. ASSESSMENT: 1. Acute hypoxemic respiratory failure secondary to methicillin sensitive Staphylococcus aureus pneumonia, which required intubation and mechanical ventilation and eventual extubation. 2. Upper gastrointestinal bleed, with nondiagnostic/negative EGD and colonoscopy despite the patient requiring 9 units of PRBCs. 3. Hypothyroidism. 4. Thrombocytopenia. 5. Acute on chronic kidney injury. 6. Abnormal liver enzymes. 7. Dysphagia, secondary to vocal cord edema, status post PEG tube placement. PLAN: The patient is doing well. The patient is currently on just 2 L nasal O2. His cough is dry and not wet sounding. The patient is not demonstrating any signs or symptoms of respiratory distress. No bronchoscopy is necessary at this time in my opinion. We will follow only as needed. ENRIQUE / RAMILA: [id number] /
[2018-07-23 16:56] LABS: Glucose,Whole Blood 161 mg/dL (75-99)
[2018-07-23] MEDS: DEXTROSE 5% IN WATER 1,000 ML IV SCH (17:47)
--- NOTE | 2018-07-23 20:07 | PN ---
PROGRESS NOTE DATE OF SERVICE: July 23, 2018 PRESENTING COMPLAINT: Tired. INTERVAL HISTORY: Patient admitted with UTI pneumonia, metabolic acidosis, acute kidney injury, history of alcoholism, was in the ICU and then extubated on July 03 and readmitted to the ICU with bloody bowel movements. The patient required several blood transfusions. The patient had a recurrent aspiration. Has remained n.p.o. PEG tube feeding is in place. Physical therapy worked with the patient, did take a couple of steps. The patient otherwise has been reluctant to get out of bed. REVIEW OF SYSTEMS: Done for constitutional, cardiovascular, GI, pulmonary relevant findings as above. CURRENT MEDICATIONS: Reviewed that include oral prednisone, Augmentin. PHYSICAL EXAMINATION: VITAL SIGNS: Temperature 97.6, pulse 80, respirations 16, blood pressure 132/64, pulse ox 98% on 2 L. GENERAL APPEARANCE: Lying in bed, awake. EYES: Pupils equal. Conjunctivae normal. NECK: JVD unable to assess. Mass not palpable. RESPIRATORY: Effort increased. LUNGS: Decreased breath sounds, basal crackles. CARDIOVASCULAR: First and second sounds normal. No edema. ABDOMEN: Soft, nontender. Liver and spleen not palpable. PEG tube in place. PSYCHIATRY: Awake, answering questions. INVESTIGATIONS: Accu-Cheks are noted. ASSESSMENT: 1. Pneumonia probably aspiration recurrent. 2. Acute metabolic encephalopathy, improved. 3. Acute hypoxic respiratory failure status post ventilator support now on 2 L nasal cannula. 4. Severe esophagitis. 5. Acute hyponatremia from free water deficit, corrected. 6. Metabolic acidosis. 7. Hypotensive, shock from free water deficit. 8. Septic shock, now corrected. 9. Acute kidney injury likely acute tubular necrosis, slow to respond. 10.Acute gastrointestinal bleed, the patient did receive blood. 11.Acute blood loss anemia from above and bleeding from the PEG tube site. 12.Hypothyroid. 13.Thrombocytopenia likely multifactorial including contribution from sepsis. 14.PEG tube feeding. 15.Right pleural effusion status post thoracentesis on July 13. 16.Dysphagia with thin liquids. The patient remained n.p.o. PLAN: Earlier spoke to get opinion from Dr. Zapien. The patient may benefit from bronchoscopy and lavage. Seems to have a lot of inverted, junk in the lung. Later this afternoon, Dr. Zapien did evaluate the patient and felt there was no need for the same. I will then in that case arrange for patient to go to the rehab tomorrow. The patient's antibiotics could be actually discontinued and patient will be tapered. The patient is to remain n.p.o. with further swallow evaluation down the road. ENRIQUE / RAMILA: [id number] /
[2018-07-23 20:48] LABS: Glucose,Whole Blood 143 mg/dL (75-99)
[2018-07-23] MEDS: INSULIN DETEMIR (LEVEMIR) 100 UNIT/ML SYR SQ SCH (21:03)
[2018-07-24] MEDS: INSULIN ASPART (NovoLOG) 100 UNIT/ML VIAL SQ SCH ×6 (00:13→21:50)
[2018-07-24 00:18] LABS: Glucose,Whole Blood 124 mg/dL (75-99)
[2018-07-24] MEDS: IPRATROPIUM-ALBUTEROL 3 ML NEB INHALATION SCH ×7 (00:30→23:39)
[2018-07-24 03:49] LABS: Glucose,Whole Blood 98 mg/dL (75-99)
[2018-07-24] MEDS: METOPROLOL TARTRATE 50 MG TAB PO SCH ×2 (07:38→21:51)
[2018-07-24] MEDS: amLODIPine 10 MG TAB PO SCH (07:39)
[2018-07-24] MEDS: predniSONE 20 MG TAB PO SCH (07:39)
[2018-07-24] MEDS: FUROSEMIDE 20 MG TAB PO SCH ×2 (07:39→16:14)
[2018-07-24] MEDS: AMOXIC-POT CLAV 875-125MG 1 EACH TAB PO SCH ×2 (07:40→21:49)
[2018-07-24] MEDS: LEVOTHYROXINE IVP 100 MCG/5 ML VIAL IV SCH (07:40)
[2018-07-24] MEDS: PANTOPRAZOLE 40 MG/10 ML VIAL IVP SCH ×2 (07:41→21:51)
[2018-07-24 08:28] LABS: Calcium 6.7 mg/dL (8.4-10.2); Magnesium 1.6 mg/dL (1.6-2.3); Potassium 3.4 mmol/L (3.5-5.1)
--- NOTE | 2018-07-24 09:44 | P.PN ---
Subjective Patient is seen in follow-up for acute kidney injury. Renal function is gradually improving - creatinine 2.99 today. He is noted to have proteinuria along with low complement levels and will need a kidney biopsy down the road. He was transferred out of the intensive care unit on July 18. He is now receiving TFs via PEG tube. TPN discontinued. No active complaints at this time. Maintained on D5W for hypernatremia and episodes of hypoglycemia. Blood sugars have been stable. Vital signs are stable. General: The patient appeared well nourished and normally developed. HEENT: Head exam is unremarkable. Neck is without jugular venous distension. LUNGS: Breath sounds decreased. HEART: Rate and Rhythm are regular. First and second heart sounds normal. No murmurs, rubs or gallops. ABDOMEN: Abdominal exam reveals normal bowel sounds. Non-tender and non- distended. No evidence of peritonitis. EXTREMITITES: No clubbing, cyanosis, or edema. Objective - Vital Signs Vital signs: Vital Signs Temp 98 F 07/24/18 05:00 Pulse 80 07/24/18 08:43 Resp 17 07/24/18 05:00 BP 131/68 07/24/18 05:00 Pulse Ox 98 07/24/18 08:34 Intake & Output 07/23/18 07/24/18 07/24/18 18:59 06:59 18:59 Intake Total 540 1260 Output Total 800 Balance 540 460 Weight 69.5 kg 67.5 kg Intake: IV 120 .9 Normal Saline 120 Intake, IV Titration 600 Amount Dextrose 5% in Water 1, 600 000 ml @ 50 mls/hr IV . Q20H [facility] Rx#:[id number] Tube Feeding 540 540 Output: Urine 800 Other: Voiding Method Urinal Urinal Diaper Incontinent # Bowel Movements 1 ABP, PAP, CO, CI - Last Documented Arterial Blood Pressure 158/56 - Labs CBC & Chem 7: 07/19/18 07:36 07/24/18 07:51 Labs: Abnormal Lab Results - Last 24 Hours (Table) 07/23/18 07/23/18 07/23/18 Range/Units 11:05 16:54 20:19 Potassium (3.5-5.1) mmol/L Chloride (98-107) mmol/L BUN (9-20) mg/dL Creatinine (0.66-1.25) mg/dL POC Glucose (mg/dL) 146 H 161 H 143 H (75-99) mg/dL Calcium (8.4-10.2) mg/dL 07/24/18 07/24/18 Range/Units 00:13 07:51 Potassium 3.4 L (3.5-5.1) mmol/L Chloride 108 H (98-107) mmol/L BUN 74 H (9-20) mg/dL Creatinine 2.99 H (0.66-1.25) mg/dL POC Glucose (mg/dL) 124 H (75-99) mg/dL Calcium 6.7 L (8.4-10.2) mg/dL Microbiology - Last 24 Hours (Table) 07/13/18 10:30 Acid Fast Bacilli Smear - Final Lung - Right Acid Fast Bacilli Culture - Preliminary 07/13/18 10:30 Fungal Culture - Preliminary Pleural Fluid Assessment and Plan Plan: Assessment: 1. Acute kidney injury secondary to ATN. There is also concern for acute GN as he does have sub-nephrotic range proteinuria along with low complement levels. Renal function improving - creatinine 2.99 today. 2. 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 Maintained on tube feeding via PEG tube. TPN discontinued. 3. 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 Baseline creatinine in the range of 1.8-2. 4. Metabolic acidosis secondary to acute kidney injury. Better. 5. Hypernatremia secondary to lack of oral water intake. Better with D5W. 6. Staph aureus pneumonia. Maintained on antibiotics. 7. Anemia of chronic kidney disease maintained on Aranesp. Status post blood transfusion. No active bleeding noted at this time. Status post EGD and colonoscopy on July 16 which revealed no active bleeding. 8. Mild volume overload maintained on oral diuretics. 9. Hypokalemia secondary to diuretics. 10. Hypomagnesemia secondary to diuretics. Plan: Maintain tube feeding. Since blood sugars are stable, can discontinue D5W and start free water flushes 200 mL every 6 hours with tube feeding. Patient unable to drink free water due to aspiration. Avoid nephrotoxins. Patient will need a kidney biopsy down the road. Replace potassium. 40 mEq today. Replace magnesium. 2 g IV today.
[2018-07-24 11:29] LABS: Glucose,Whole Blood 107 mg/dL (75-99)
[2018-07-24] MEDS: POTASSIUM CHLORIDE 10 MEQ in WATER FOR INJECTION 1 100ML.BAG IVPB SCH ×4 (12:58→19:54)
[2018-07-24] MEDS: MAGNESIUM SULFATE-D5W PMX 1 GM in DEXTROSE/WATER 1 100ML.BAG IVPB SCH ×2 (15:07→17:31)
[2018-07-24 15:56] LABS: Glucose,Whole Blood 204 mg/dL (75-99)
[2018-07-24] MEDS: DEXTROSE 5% IN WATER 1,000 ML IV SCH (16:03)
--- NOTE | 2018-07-24 16:11 | DS ---
DISCHARGE SUMMARY DATE OF ADMISSION: 06/29/2018 DATE OF DISCHARGE: 07/24/2018 FINAL DIAGNOSES: 1. Pneumonia, probably aspiration, POA. 2. Acute metabolic encephalopathy, multifactorial, improved. 3. Acute hypoxic respiratory failure, status post ventilator support, now on 2 L nasal cannula. 4. Severe esophagitis. 5. Acute hypernatremia from free water deficit, corrected. 6. Metabolic acidosis. 7. Hypotensive and septic shock. 8. Acute kidney injury, likely acute tubular necrosis, multifactorial, slow to respond. 9. Acute gastrointestinal bleed. Patient did get multiple blood transfusions. 10.Acute blood loss anemia from above and bleeding from the PEG tube site. 11.Hypothyroid. 12.Thrombocytopenia, likely multifactorial, including contribution from sepsis. 13.Right pleural effusion, status post thoracentesis. 14.Dysphagia. Patient strictly n.p.o. HOSPITAL COURSE: This patient was admitted with multiple problems and eventually was intubated and successfully extubated. Patient failed swallowing and has been made n.p.o. and is getting PEG tube feeding. Patient did have a 2-D echocardiogram that showed EF of 50% to 55% and moderate mitral regurgitation. Patient had a right femoral triple-lumen catheter also placed. He also had a radial arterial line. He had an abdominal ultrasound that showed non-visualization of the left kidney, maybe because of bowels. His modified barium swallow showed aspiration and he has been made n.p.o. Trial of feeding was done, but the patient again aspirated. The patient also had an ultrasound of the gallbladder that showed multiple small gallstones and fatty infiltration of the liver. Chest CT showed moderate emphysema changes, pleural effusions. Dr. Bean carried out an EGD and PEG tube placement was done. Biliary stent was removed. The patient did have some bleeding around the PEG tube site that finally settled down. Patient also had thoracentesis on the right side. I did tell the patient today that he needs to have a repeat swallow evaluation as an outpatient. CONSULTATIONS: 1. Dr. Callahan and colleagues from Nephrology. 2. Dr. Singh and colleagues from Critical Care and Pulmonary. 3. Dr. Cisneros from Infectious Disease. 4. Dr. Valdes from Hematology. 5. Dr. Palomo from ENT. PHYSICAL EXAMINATION: Temperature 97.3, pulse 80, respiration 17, blood pressure 150/73, pulse ox 95% on 2 L. LUNGS: Occasional crackles. PSYCH: Patient is able to answer questions. INVESTIGATIONS: Potassium 3.4, BUN 74, creatinine 2.99, hemoglobin 9.7, platelets 116. Patient is to remain n.p.o. DISCHARGE MEDICATIONS: 1. Vitamin D2 50,000 units every 7 days. 2. Sodium bicarb 650 mg daily. 3. Norvasc 10 mg daily. 4. Iron 325 daily. 5. Augmentin 875 one tablet q.12; 10 tablets. 6. Darbepoetin 60 mcg subcutaneously every 7 days. 7. Lasix 20 mg b.i.d. 8. DuoNeb q.i.d. 9. Synthroid 25 mcg daily. 10.Lopressor 50 mg b.i.d. 11.Prilosec 20 mg b.i.d. 12.Prednisone taper. ADDITIONAL INSTRUCTION: Patient is to remain n.p.o. PEG tube feeding to continue as ordered. Patient to have TSH checked in 4 weeks. CBC, BMP to be checked in 7 days. Aspiration precautions to be maintained. Patient to have a swallow evaluation with modified barium in 2 weeks' time. DISPOSITION: [facility]. Follow up with Dr. Silva in the [facility]. Follow up with Dr. Keating in 2 weeks. Follow up with Dr. Medel in 10 days. Follow up with Dr. Uribe in 2 weeks. Discussion and discharge planning more than 35 minutes. MMODL / HARPERN: [id number] /
[2018-07-24] MEDS: DARBEPOETIN ALFA 60 MCG/0.3 ML SYRINGE SQ SCH (19:54)
[2018-07-24 20:28] LABS: Glucose,Whole Blood 168 mg/dL (75-99)
[2018-07-24 21:28] VITALS: RESP 20
[2018-07-24] MEDS: INSULIN DETEMIR (LEVEMIR) 100 UNIT/ML SYR SQ SCH (21:51)
[2018-07-25] LABS: Glucose,Whole Blood 113 mg/dL (75-99)
[2018-07-25] MEDS: INSULIN ASPART (NovoLOG) 100 UNIT/ML VIAL SQ SCH ×3 (00:04→07:58)
[2018-07-25] MEDS: IPRATROPIUM-ALBUTEROL 3 ML NEB INHALATION SCH ×3 (03:07→10:58)
[2018-07-25] MEDS: DEXTROSE 5% IN WATER 1,000 ML IV SCH (03:49)
[2018-07-25 03:52] LABS: Glucose,Whole Blood 51 mg/dL (75-99)
[2018-07-25 04:09] LABS: Glucose,Whole Blood 137 mg/dL (75-99)
[2018-07-25 05:16] VITALS: BP 121/53; TEMP 98.3
[2018-07-25 07:20] VITALS: PULSE 78
[2018-07-25 07:26] LABS: Glucose,Whole Blood 86 mg/dL (75-99)
[2018-07-25] MEDS: PANTOPRAZOLE 40 MG/10 ML VIAL IVP SCH (07:59)
[2018-07-25] MEDS: LEVOTHYROXINE IVP 100 MCG/5 ML VIAL IV SCH (08:00)
[2018-07-25] MEDS: AMOXIC-POT CLAV 875-125MG 1 EACH TAB PO SCH (08:00)
[2018-07-25] MEDS: METOPROLOL TARTRATE 50 MG TAB PO SCH (08:00)
[2018-07-25] MEDS: predniSONE 20 MG TAB PO SCH (08:00)
[2018-07-25] MEDS: FUROSEMIDE 20 MG TAB PO SCH (08:00)
[2018-07-25] MEDS: amLODIPine 10 MG TAB PO SCH (08:00)
[2018-07-25 08:01] LABS: Magnesium 2.1 mg/dL (1.6-2.3); Potassium 3.4 mmol/L (3.5-5.1)
[2018-07-25] MEDS ORDERED: POTASSIUM CHLORIDE ER 20 MEQ TAB.ER PO STA (08:26)
--- NOTE | 2018-07-25 08:28 | P.PN ---
Subjective Patient is seen in follow-up for acute kidney injury. Renal function is gradually improving - creatinine 2.73 today. He is noted to have proteinuria along with low complement levels and will need a kidney biopsy down the road. He was transferred out of the intensive care unit on July 18. He is now receiving TFs via PEG tube. TPN discontinued. No active complaints at this time. Vital signs are stable. General: The patient appeared well nourished and normally developed. HEENT: Head exam is unremarkable. Neck is without jugular venous distension. LUNGS: Breath sounds decreased. HEART: Rate and Rhythm are regular. First and second heart sounds normal. No murmurs, rubs or gallops. ABDOMEN: Abdominal exam reveals normal bowel sounds. Non-tender and non- distended. No evidence of peritonitis. EXTREMITITES: No clubbing, cyanosis, or edema. Objective - Vital Signs Vital signs: Vital Signs Temp 98.3 F 07/25/18 05:00 Pulse 78 07/25/18 07:20 Resp 20 07/25/18 05:00 BP 121/53 07/25/18 05:00 Pulse Ox 96 07/25/18 05:00 Intake & Output 07/24/18 07/25/18 07/25/18 18:59 06:59 18:59 Intake Total 540 860 Output Total 1300 800 Balance -760 60 Weight 66.5 kg Intake: IV 120 .9 Normal Saline 120 Intake, IV Titration 200 Amount Dextrose 5% in Water 1, 100 000 ml @ 50 mls/hr IV . Q20H [facility] Rx#:[id number] Potassium Chloride 10 meq 100 In Water For Injection 1 100ml.bag @ 100 mls/hr IVPB Q1H [facility] Rx#: [id number] Tube Feeding 540 540 Output: Urine 800 800 Stool 500 Other: Voiding Method Urinal Urinal # Voids 4 # Bowel Movements 2 ABP, PAP, CO, CI - Last Documented Arterial Blood Pressure 158/56 - Labs CBC & Chem 7: 07/19/18 07:36 07/25/18 07:18 Labs: Abnormal Lab Results - Last 24 Hours (Table) 07/24/18 07/24/18 07/24/18 Range/Units 07:51 11:28 15:55 Potassium 3.4 L (3.5-5.1) mmol/L Chloride 108 H (98-107) mmol/L BUN 74 H (9-20) mg/dL Creatinine 2.99 H (0.66-1.25) mg/dL POC Glucose (mg/dL) 107 H 204 H (75-99) mg/dL Calcium 6.7 L (8.4-10.2) mg/dL 07/24/18 07/24/18 07/25/18 Range/Units 20:27 23:59 03:39 Potassium (3.5-5.1) mmol/L Chloride (98-107) mmol/L BUN (9-20) mg/dL Creatinine (0.66-1.25) mg/dL POC Glucose (mg/dL) 168 H 113 H 51 L (75-99) mg/dL Calcium (8.4-10.2) mg/dL 07/25/18 07/25/18 Range/Units 04:08 07:18 Potassium 3.4 L (3.5-5.1) mmol/L Chloride 110 H (98-107) mmol/L BUN 72 H (9-20) mg/dL Creatinine 2.73 H (0.66-1.25) mg/dL POC Glucose (mg/dL) 137 H (75-99) mg/dL Calcium 7.0 L (8.4-10.2) mg/dL Microbiology - Last 24 Hours (Table) 07/13/18 10:30 Acid Fast Bacilli Smear - Final Lung - Right Acid Fast Bacilli Culture - Preliminary Assessment and Plan Plan: Assessment: 1. Acute kidney injury secondary to ATN. There is also concern for acute GN as he does have sub-nephrotic range proteinuria along with low complement levels. Renal function improving - creatinine 2.73 today. 2. 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 Maintained on tube feeding via PEG tube. TPN discontinued. 3. 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 Baseline creatinine in the range of 1.8-2. 4. Metabolic acidosis secondary to acute kidney injury. Better. 5. Hypernatremia secondary to lack of oral water intake. Better with D5W. 6. Staph aureus pneumonia. Maintained on antibiotics. 7. Anemia of chronic kidney disease maintained on Aranesp. Status post blood transfusion. No active bleeding noted at this time. Status post EGD and colonoscopy on July 16 which revealed no active bleeding. 8. Mild volume overload maintained on oral diuretics. 9. Hypokalemia secondary to diuretics. Magnesium normal. 10. Hypomagnesemia secondary to diuretics. Status post placement. Plan: Maintain tube feeding. Start free water flushes 200 mL every 6 hours with tube feeding. Patient unable to drink free water due to aspiration. Avoid nephrotoxins. Patient will need a kidney biopsy down the road. Replace potassium. 40 mEq today. I will also had maintenance potassium supplementation since he is on diuretics. Potential discharge to rehab today. He will need to follow-up outpatient in the next 1-2 weeks.
[2018-07-25] MEDS ORDERED: POTASSIUM CHLORIDE ER 10 MEQ TAB.ER.PRT PO SCH (09:00)
--- NOTE | 2018-07-25 16:13 | P.PN ---
Subjective Progress Note Date: 07/25/18 Principal diagnosis: anemia, thrombocytopenia In follow-up today patient is receiving tube feeding for dysphagia, voice is near normal, not hoarse, cough is still congested but, improved, no hemoptysis, no fever, nausea, bleeding or pain Objective - Vital Signs Vital signs: Vital Signs Temp 98.3 F 07/25/18 05:00 Pulse 78 07/25/18 11:13 Resp 20 07/25/18 05:00 BP 121/53 07/25/18 05:00 Pulse Ox 96 07/25/18 05:00 Intake & Output 07/24/18 07/25/18 07/25/18 18:59 06:59 18:59 Intake Total 540 860 180 Output Total 1300 800 Balance -760 60 180 Weight 66.5 kg Intake: IV 120 .9 Normal Saline 120 Intake, IV Titration 200 Amount Dextrose 5% in Water 1, 100 000 ml @ 50 mls/hr IV . Q20H [facility] Rx#:[id number] Potassium Chloride 10 meq 100 In Water For Injection 1 100ml.bag @ 100 mls/hr IVPB Q1H [facility] Rx#: [id number] Tube Feeding 540 540 180 Output: Urine 800 800 Stool 500 Other: Voiding Method Urinal Urinal # Voids 4 # Bowel Movements 2 ABP, PAP, CO, CI - Last Documented Arterial Blood Pressure 158/56 - Constitutional General appearance: Present: average body habitus, cooperative, no acute distress - EENT Eyes: Present: anicteric sclerae, EOMI - Respiratory Respiratory: right: wheezing (anterior, inspiratory and expiratory) - Cardiovascular Rhythm: regular Heart sounds: normal: S1, S2 - Peripheral edema leg Peripheral Edema: bilateral: None - Gastrointestinal General gastrointestinal: Present: normal bowel sounds, soft - Integumentary Integumentary: Present: normal - Neurologic Neurologic: Present: CNII-XII intact - Musculoskeletal Musculoskeletal: Present: generalized weakness - Psychiatric Psychiatric: Present: A&O x's 3, appropriate affect, intact judgment & insight - Labs CBC & Chem 7: 07/19/18 07:36 07/25/18 07:18 Labs: Abnormal Lab Results - Last 24 Hours (Table) 07/24/18 07/24/18 07/25/18 Range/Units 20:27 23:59 03:39 Potassium (3.5-5.1) mmol/L Chloride (98-107) mmol/L BUN (9-20) mg/dL Creatinine (0.66-1.25) mg/dL POC Glucose (mg/dL) 168 H 113 H 51 L (75-99) mg/dL Calcium (8.4-10.2) mg/dL 07/25/18 07/25/18 Range/Units 04:08 07:18 Potassium 3.4 L (3.5-5.1) mmol/L Chloride 110 H (98-107) mmol/L BUN 72 H (9-20) mg/dL Creatinine 2.73 H (0.66-1.25) mg/dL POC Glucose (mg/dL) 137 H (75-99) mg/dL Calcium 7.0 L (8.4-10.2) mg/dL Assessment and Plan (1) Thrombocytopenia Narrative/Plan: Plt cont to improve. Winfall to be due to splenic sequestration as well as decreased thrombopoiesis secondary to chronic liver disease. Exacerbation of the thrombocytopenia related to acute illness with anticipated resolution to baseline with treatment. No further work up or treatments required at this time Status: Acute Priority: High Code(s): D69.6 - THROMBOCYTOPENIA, UNSPECIFIED SNOMED Code(s): 772359375 (2) Macrocytic anemia Narrative/Plan: Anemia workup showing iron deficiency. Parenteral iron x 2 doses given, oral iron Erx for discharge. He can be referred back to Hematology as-needed EtOH marrow damage, exacerbated by acute illness as contributing factor to drop in Hgb. Also, CKD, Nephrology has started pt on aranesp, Hgb stable as of now. Status: Acute Priority: Medium Code(s): D53.9 - NUTRITIONAL ANEMIA, UNSPECIFIED SNOMED Code(s): 61643189
--- NOTE | 2018-07-27 11:30 | CDI ---
Documentation Clarification Form Date: 07/27/2018 From: Flora Cornell Phone: If questions call Helena Robbins @ [phone], Hours-8:30 am & 5 pm M- F Admit Date: 06/29/2018 2:55:00 AM Patient Name: Twin Enamorado Visit Number: [id number] Discharge Date: 07/25/2018 11:48:00 AM ATTENTION: The Clinical Documentation Specialists (CDI) and [facility] Coding Staff appreciate your assistance in clarifying documentation. Please respond to the clarification below the line at the bottom and electronically sign. The CDI & [facility] Coding staff will review the response and follow-up if needed. Please note: Queries are made part of the Legal Health Record. If you have any questions, please contact the author of this message via ITS. Dr. John Elliott Patient presents in fluid overload and UTI on 06/29. On admission: WBC-7.7, Neutrophils-6.3 & lactic acid 1.0 and BP-88/46. On 06/30 patient develops acute hypoxic respiratory failure, intubated, develops septic shock and started on Levophed and sodium bicarb. 06/29 CXR reveals very mild pulmonary vascular congestion. 07/01 CXR reveals right lower lobe infiltrate. Correlate for pneumonia. 07/01 consult - Staph aureus pneumonia 07/05 PN- Oropharyngeal dysphagia - patient denies any problem prior to hospitalization, now failing speech and bedside swallow evaluation, likely secondary to acute illness and recent intubation 07/[address] Palomo states patient has severe hoarseness which appears to be from bilateral vocal cord hemorrhage and laryngitis. The dysphagia, appears to have a limited pharyngeal movement and evidence of a possible bulbar palsy, recommends neuro consult. Feeding tube is highly recommended and the patient is to be nothing by mouth. High risk for aspiration pneumonia. Treatment - 06/29 @ 23:45 started on IV Rocephin; 06/30 @ 10:00 started on IV Zosyn Definition of Present on Admission (POA): A diagnosis present at the time the order for admission to inpatient status was written. For each diagnosis, documentation must be clear to determine if the condition was present at the time of the patients inpatient admission or developed during the hospital stay. Please clarify if sepsis was POA: ____Y = Yes, the condition was present at the time of the order for inpatient admission. ____N = No, the condition was not present at the time of the order for inpatient admission. ____W = Clinically undetermined if the condition was present at the time of the order for inpatient admission. sepsis with septic shock from psuedomonas pneumonia,POA MTDD
--- NOTE | 2018-07-27 11:36 | CDI ---
Documentation Clarification Form Date: 07/27/18 From: Flora Cornell Phone: If questions call Helena Robbins @ [phone], Hours-8:30 am & 5 pm M- F Admit Date: 06/29/2018 2:55:00 AM Patient Name: Twin Enamorado Visit Number: [id number] Discharge Date: 07/25/2018 11:48:00 AM ATTENTION: The Clinical Documentation Specialists (CDI) and [facility] Coding Staff appreciate your assistance in clarifying documentation. Please respond to the clarification below the line at the bottom and electronically sign. The CDI & [facility] Coding staff will review the response and follow-up if needed. Please note: Queries are made part of the Legal Health Record. If you have any questions, please contact the author of this message via ITS. Dr. John Elliott Patient presents in fluid overload and UTI on 06/29. On admission: WBC-7.7, Neutrophils-6.3 & lactic acid 1.0 and BP-88/46. On 06/30 patient develops acute hypoxic respiratory failure, intubated, develops septic shock and started on Levophed and sodium bicarb. 06/29 CXR reveals very mild pulmonary vascular congestion. 07/01 CXR reveals right lower lobe infiltrate. Correlate for pneumonia. 07/01 consult - Staph aureus pneumonia 07/05 PN- Oropharyngeal dysphagia - patient denies any problem prior to hospitalization, now failing speech and bedside swallow evaluation, likely secondary to acute illness and recent intubation 07/[address] Palomo states patient has severe hoarseness which appears to be from bilateral vocal cord hemorrhage and laryngitis. The dysphagia, appears to have a limited pharyngeal movement and evidence of a possible bulbar palsy, recommends neuro consult. Feeding tube is highly recommended (and placed) and the patient is to be nothing by mouth. High risk for aspiration pneumonia. Treatment - 06/29 @ 23:45 started on IV Rocephin; 06/30 @ 10:00 started on IV Zosyn Definition of Present on Admission (POA): A diagnosis present at the time the order for admission to inpatient status was written. For each diagnosis, documentation must be clear to determine if the condition was present at the time of the patients inpatient admission or developed during the hospital stay. Please clarify if aspiration pneumonia was POA: ____Y = Yes, the condition was present at the time of the order for inpatient admission. ____N = No, the condition was not present at the time of the order for inpatient admission. ____W = Clinically undetermined if the condition was present at the time of the order for inpatient admission NO. MTDD
--- NOTE | 2018-07-27 11:40 | CDI ---
Documentation Clarification Form Date: 07/27/18 From: Flora Cornell Phone: If questions call Helena Robbins @ [phone], Hours-8:30 am & 5 pm M- F Admit Date: 06/29/2018 2:55:00 AM Patient Name: Twin Enamorado Visit Number: [id number] Discharge Date: 07/25/2018 11:48:00 AM ATTENTION: The Clinical Documentation Specialists (CDI) and [facility] Coding Staff appreciate your assistance in clarifying documentation. Please respond to the clarification below the line at the bottom and electronically sign. The CDI & [facility] Coding staff will review the response and follow-up if needed. Please note: Queries are made part of the Legal Health Record. If you have any questions, please contact the author of this message via ITS. Dr. John Elliott Patient presents in fluid overload and UTI on 06/29. On admission: WBC-7.7, Neutrophils-6.3 & lactic acid 1.0 and BP-88/46. On 06/30 patient develops acute hypoxic respiratory failure, intubated, develops septic shock and started on Levophed and sodium bicarb. 06/29 CXR reveals very mild pulmonary vascular congestion. 07/01 CXR reveals right lower lobe infiltrate. Correlate for pneumonia. 07/01 consult - Staph aureus pneumonia 07/05 PN- Oropharyngeal dysphagia - patient denies any problem prior to hospitalization, now failing speech and bedside swallow evaluation, likely secondary to acute illness and recent intubation 07/[address] Palomo states patient has severe hoarseness which appears to be from bilateral vocal cord hemorrhage and laryngitis. The dysphagia, appears to have a limited pharyngeal movement and evidence of a possible bulbar palsy, recommends neuro consult. Feeding tube is highly recommended and the patient is to be nothing by mouth. High risk for aspiration pneumonia. Treatment - 06/29 @ 23:45 started on IV Rocephin; 06/30 @ 10:00 started on IV Zosyn Definition of Present on Admission (POA): A diagnosis present at the time the order for admission to inpatient status was written. For each diagnosis, documentation must be clear to determine if the condition was present at the time of the patients inpatient admission or developed during the hospital stay. Please clarify if MSSA pneumonia was POA: ____Y = Yes, the condition was present at the time of the order for inpatient admission. ____N = No, the condition was not present at the time of the order for inpatient admission. ____W = Clinically undetermined if the condition was present at the time of the order for inpatient admission. Yes MTDD
== END 2018-07-25 11:48 | DRG 871 ==
LOC: EC 01:11 → 3SCARD 02:55 → 4SSUR 11:53 → 2SICU 06-30 10:13 → 4MS4W 07-04 16:21 → 2SICU 07-09 11:09 → 3NMEDONC 07-18 18:39
PROVIDERS: ADMIT Hospitalist; ATTEND Hospitalist
PROC: 30230N1 Transfusion of Nonautologous Red Blood Cells into Peripheral Vein, Open Approach (ICD-10-PCS; 2018-06-29)
PROC: 5A1945Z Respiratory Ventilation, 24-96 Consecutive Hours (ICD-10-PCS; principal; 2018-06-30)
PROC: 0BH17EZ Insertion of Endotracheal Airway into Trachea, Via Natural or Artificial Opening (ICD-10-PCS; 2018-06-30)
PROC: 06HM33Z Insertion of Infusion Device into Right Femoral Vein, Percutaneous Approach (ICD-10-PCS; 2018-06-30)
PROC: 03HY32Z Insertion of Monitoring Device into Upper Artery, Percutaneous Approach (ICD-10-PCS; 2018-06-30)
PROC: 4A133B1 Monitoring of Arterial Pressure, Peripheral, Percutaneous Approach (ICD-10-PCS; 2018-06-30)
PROC: 4A133J1 Monitoring of Arterial Pulse, Peripheral, Percutaneous Approach (ICD-10-PCS; 2018-06-30)
PROC: 0D9670Z Drainage of Stomach with Drainage Device, Via Natural or Artificial Opening (ICD-10-PCS; 2018-06-30)
PROC: 3E0G76Z Introduction of Nutritional Substance into Upper GI, Via Natural or Artificial Opening (ICD-10-PCS; 2018-07-01)
PROC: 0CJY8ZZ Inspection of Mouth and Throat, Via Natural or Artificial Opening Endoscopic (ICD-10-PCS; 2018-07-05)
PROC: 5A09557 Assistance with Respiratory Ventilation, Greater than 96 Consecutive Hours, Continuous Positive Airway Pressure (ICD-10-PCS; 2018-07-08)
PROC: 05HN33Z Insertion of Infusion Device into Left Internal Jugular Vein, Percutaneous Approach (ICD-10-PCS; 2018-07-09)
PROC: 3E0436Z Introduction of Nutritional Substance into Central Vein, Percutaneous Approach (ICD-10-PCS; 2018-07-10)
PROC: 0FPB8DZ Removal of Intraluminal Device from Hepatobiliary Duct, Via Natural or Artificial Opening Endoscopic (ICD-10-PCS; 2018-07-11)
PROC: 0DH63UZ Insertion of Feeding Device into Stomach, Percutaneous Approach (ICD-10-PCS; 2018-07-11)
PROC: 0W993ZX Drainage of Right Pleural Cavity, Percutaneous Approach, Diagnostic (ICD-10-PCS; 2018-07-13)
PROC: 0FPB8DZ Removal of Intraluminal Device from Hepatobiliary Duct, Via Natural or Artificial Opening Endoscopic (ICD-10-PCS; 2018-07-16)
PROC: 0DJD8ZZ Inspection of Lower Intestinal Tract, Via Natural or Artificial Opening Endoscopic (ICD-10-PCS; 2018-07-16)
DX: A41.52 Sepsis due to Pseudomonas (principal); N17.0 Acute kidney failure with tubular necrosis; J96.01 Acute respiratory failure with hypoxia; R65.21 Severe sepsis with septic shock; J15.211 Pneumonia due to Methicillin susceptible Staphylococcus aureus; G93.41 Metabolic encephalopathy; J69.0 Pneumonitis due to inhalation of food and vomit; K72.00 Acute and subacute hepatic failure without coma; N39.0 Urinary tract infection, site not specified; E87.2 Acidosis; D62 Acute posthemorrhagic anemia; K51.40 Inflammatory polyps of colon without complications; J44.0 Chronic obstructive pulmonary disease with (acute) lower respiratory infection; K92.1 Melena; E87.0 Hyperosmolality and hypernatremia; J98.11 Atelectasis; E46 Unspecified protein-calorie malnutrition; J90 Pleural effusion, not elsewhere classified; N25.81 Secondary hyperparathyroidism of renal origin; K94.21 Gastrostomy hemorrhage; D69.59 Other secondary thrombocytopenia; R13.12 Dysphagia, oropharyngeal phase; J38.00 Paralysis of vocal cords and larynx, unspecified; I27.20 Pulmonary hypertension, unspecified; E83.51 Hypocalcemia; E83.39 Other disorders of phosphorus metabolism; E83.42 Hypomagnesemia; E87.5 Hyperkalemia; N18.3 Chronic kidney disease, stage 3 (moderate); K70.9 Alcoholic liver disease, unspecified; I12.9 Hypertensive chronic kidney disease with stage 1 through stage 4 chronic kidney disease, or unspecified chronic kidney disease; E55.9 Vitamin D deficiency, unspecified; D63.1 Anemia in chronic kidney disease; E16.2 Hypoglycemia, unspecified; K31.89 Other diseases of stomach and duodenum; I34.0 Nonrheumatic mitral (valve) insufficiency; E87.6 Hypokalemia; J04.0 Acute laryngitis; E86.0 Dehydration; E03.9 Hypothyroidism, unspecified; D53.9 Nutritional anemia, unspecified; L30.9 Dermatitis, unspecified; K20.9 Esophagitis, unspecified; K64.8 Other hemorrhoids; M62.831 Muscle spasm of calf; F10.20 Alcohol dependence, uncomplicated; K27.9 Peptic ulcer, site unspecified, unspecified as acute or chronic, without hemorrhage or perforation; T50.2X5A Adverse effect of carbonic-anhydrase inhibitors, benzothiadiazides and other diuretics, initial encounter; R26.9 Unspecified abnormalities of gait and mobility; Z68.22 Body mass index [BMI] 22.0-22.9, adult; F17.200 Nicotine dependence, unspecified, uncomplicated; Z71.6 Tobacco abuse counseling; Z79.899 Other long term (current) drug therapy; Z87.19 Personal history of other diseases of the digestive system; Z87.440 Personal history of urinary (tract) infections; Z98.1 Arthrodesis status; Z96.1 Presence of intraocular lens; Z98.41 Cataract extraction status, right eye; Z98.42 Cataract extraction status, left eye; Z80.8 Family history of malignant neoplasm of other organs or systems; Z80.3 Family history of malignant neoplasm of breast
CPT/HCPCS: 36415; 36600; 43246; 43247; 44799; 45378; 70450; 71045; 71046; 71250; 74230; 76604; 76705; 76770; 80048; 80051; 80053; 81001; 82040; 82140; 82150; 82272; 82306; 82330; 82533; 82570; 82607; 82668; 82728; 82747; 82805; 83540; 83550; 83605; 83615; 83690; 83735; 83921; 83930; 83970; 84100; 84132; 84156; 84157; 84439; 84443; 84478; 84484; 85025; 85027; 85045; 85384; 85610; 85730; 86038; 86160; 86225; 86255; 86334; 86335; 86706; 86803; 86850; 86900; 86901; 86920; 87040; 87070; 87077; 87086; 87102; 87116; 87186; 87205; 87206; 87252; 87324; 87340; 87496; 87498; 87502; 87529; 87634; 87798; 88108; 88305; 88341; 88342; 89050; 93005; 93306; 94002; 94003; 94640; 94660; 94760; 96361; 96374; 96375; 99285

== ENCOUNTER 2018-08-31 21:03 | Inpatient (IN) | payer MEDICARE, OTHER ==
[2018-08-31] MEDS ORDERED: IBUPROFEN 600 MG TAB PO STA (21:46)
[2018-08-31] MEDS ORDERED: ACETAMINOPHEN TAB 500 MG TAB PO STA (21:46)
[2018-08-31] MEDS ORDERED: SODIUM CHLORIDE 0.9% 1,000 ML IV STA (21:46)
[2018-08-31 22:13] LABS: Anisocytosis Slight; Basophils % (A) 0 %; Eosinophils # (A) 0.3 k/uL (0-0.7); Eosinophils % (A) 1 %; HCT 32.6 % (39.0-53.0); HGB 10.2 gm/dL (13.0-17.5); Hypochromasia Marked; Lymphocytes # (A) 1.3 k/uL (1.0-4.8); Lymphocytes % (A) 5 %; MCH 28.8 pg (25.0-35.0); MCHC 31.3 g/dL (31.0-37.0); Mean Platelet Volume 7.3; Monocytes % (A) 4 %; Neutrophils # (A) 21.5 k/uL (1.3-7.7); Neutrophils % (A) 88 %; Platelet Count 398 k/uL (150-450); Poikilocytosis Slight; RBC 3.54 m/uL (4.30-5.90); RDW 19.7 % (11.5-15.5); WBC 24.3 k/uL (3.8-10.6)
[2018-08-31 22:23] LABS: ALT <6 U/L (21-72); AST 11 U/L (17-59); Albumin 3.1 g/dL (3.5-5.0); Alkaline Phosphatase 135 U/L (38-126); Anion Gap 15 mmol/L; Blood Urea Nitrogen 54 mg/dL (9-20); Calcium 8.9 mg/dL (8.4-10.2); Carbon Dioxide 10 mmol/L (22-30); Chloride 114 mmol/L (98-107); Glucose 130 mg/dL (74-99); Magnesium 1.6 mg/dL (1.6-2.3); Phosphorus 5.1 mg/dL (2.5-4.5); Potassium 5.3 mmol/L (3.5-5.1); Sodium 139 mmol/L (137-145); Total Bilirubin 0.2 mg/dL (0.2-1.3); Total Protein 6.8 g/dL (6.3-8.2)
[2018-08-31 22:26] LABS: Partial Thromboplastin Time 27.4 sec (22.0-30.0); Prothrombin Time 10.4 sec (9.0-12.0)
--- NOTE | 2018-08-31 22:40 | ED ---
Abdominal Pain HPI - General Chief Complaint: Abdominal Pain Stated Complaint: Infection Time Seen by Provider: 08/31/18 21:45 Source: EMS, RN notes reviewed, old records reviewed Mode of arrival: EMS Limitations: no limitations - History of Present Illness Initial Comments: This is a 68-year-old male the ER for evaluation. This patient resents to ER t [place] for evaluation of possible sepsis. No known sick contacts no recent travel history. Patient denies prior complaints of similar issues. A she is coming from home with fever. Not feeling well weakness. No nausea no vomiting no diarrhea. No cough or congestion. Denies new rashes. No change in medications. Patient has history of high blood pressure with recent diagnosis of pneumonia MD Complaint: other (Patient has no specific complaints) -: hour(s) Consistency: constant Improves With: nothing Worsens With: nothing Associated Symptoms: fever, chills, other (Weakness) - Related Data Home Medications Medication Instructions Recorded Confirmed Sodium Bicarbonate Tab 650 mg PO DAILY 06/29/18 08/31/18 amLODIPine BESYLATE [Norvasc] 10 mg PO DAILY 06/29/18 08/31/18 Acetaminophen Tab [Tylenol] 650 mg PO Q6H 08/31/18 08/31/18 Cholecalciferol [Vitamin D3 (25 1,000 unit PO DAILY 08/31/18 08/31/18 Mcg = 1000 Iu)] Ergocalciferol (Vitamin D2) 66,000 unit PO Q7D 08/31/18 08/31/18 [Ergocalciferol] Magnesium Oxide [Mag-Ox] 400 mg PO DAILY 08/31/18 08/31/18 Previous Rx's Medication Instructions Recorded Ferrous Sulfate [Feosol] 325 mg PO DAILY #30 tab 07/04/18 Ipratropium-Albuterol Nebulize 3 ml INHALATION RT-QID ampul.neb 07/24/18 [Duoneb 0.5 mg-3 mg/3 ml Soln] Levothyroxine Sodium [Synthroid] 25 mcg PO DAILY #1 tab 07/24/18 Metoprolol Tartrate [Lopressor] 50 mg PO BID tab 07/24/18 Omeprazole [PriLOSEC] 20 mg PO AC-BID #1 cap 07/24/18 Allergies Allergy/AdvReac Type Severity Reaction Status Date / Time No Known Allergies Allergy Verified 08/31/18 22:19 Review of Systems ROS Statement: Those systems with pertinent positive or pertinent negative responses have been documented in the HPI. ROS Other: All systems not noted in ROS Statement are negative. Past Medical History Past Medical History: Hypertension, Pneumonia Additional Past Medical History / Comment(s): Hx calculus of bile duct, acute cholecystitis, pancreatitis. History of Any Multi-Drug Resistant Organisms: None Reported Past Surgical History: Orthopedic Surgery Additional Past Surgical History / Comment(s): cervical surgery, bilateral cataract removal with lens implants, umbilical hernia as a baby, bile duct ej nt, ERCP, C3-6 plate Past Anesthesia/Blood Transfusion Reactions: No Reported Reaction Past Psychological History: No Psychological Hx Reported Smoking Status: Former smoker Past Alcohol Use History: Occasional Past Drug Use History: None Reported - Past Family History Father Family Medical History: Cancer Additional Family Medical History / Comment(s): Melanoma Mother Family Medical History: Cancer Additional Family Medical History / Comment(s): Breast cancer. General Exam Limitations: no limitations General appearance: alert, in no apparent distress Head exam: Present: atraumatic, normocephalic, normal inspection Eye exam: Present: normal appearance, PERRL, EOMI. Absent: scleral icterus, conjunctival injection, periorbital swelling ENT exam: Present: normal exam, mucous membranes moist Neck exam: Present: normal inspection. Absent: tenderness, meningismus, lymphadenopathy Respiratory exam: Present: normal lung sounds bilaterally. Absent: respiratory distress, wheezes, rales, rhonchi, stridor Cardiovascular Exam: Present: regular rate, normal rhythm, tachycardia, normal heart sounds. Absent: systolic murmur, diastolic murmur, rubs, gallop, clicks GI/Abdominal exam: Present: soft, normal bowel sounds. Absent: distended, tenderness, guarding, rebound, rigid Extremities exam: Present: normal inspection, full ROM, normal capillary refill. Absent: tenderness, pedal edema, joint swelling, calf tenderness Back exam: Present: normal inspection Neurological exam: Present: alert, oriented X3, CN II-XII intact Psychiatric exam: Present: normal affect, normal mood Skin exam: Present: warm, dry, intact, normal color. Absent: rash Course Vital Signs 08/31/18 08/31/18 21:44 23:40 Temperature 100.2 F H 99.2 F Pulse Rate 105 H 99 Respiratory 17 18 Rate Blood Pressure 126/71 115/65 O2 Sat by Pulse 94 L 96 Oximetry - Reevaluation(s) Reevaluation #1: Medical records reviewed Patient's feeling better with fever control Procedures - Sepsis Sepsis Focused Exam #1 Time Sepsis Criteria Met: 22:00 Sepsis Focused Exam Date: 08/31/18 Sepsis Focused Exam Time: 23:30 Capillary Refill: < 2 Seconds: Fingers, Toes Peripheral Pulses: Normal: Radial (R), Radial (L), Posterior Tibialis (R), Posterior Tibialis (L), Dorsalis Pedis (R), Dorsalis Pedis (L) Skin Color: Normal for Patient Respiratory Exam: normal lung sounds Cardiovascular Exam: bradycardia Medical Decision Making - Medical Decision Making 68 male the ER for evaluation of fever and weakness. Significantly tract infection significant leukocytosis and fever. Patient will be admitted for IV antibiotics and hydration. - Lab Data Result diagrams: 08/31/18 21:51 08/31/18 21:51 Lab Results 08/31/18 08/31/18 08/31/18 Range/Units 21:51 21:51 21:51 WBC 24.3 H (3.8-10.6) k/uL RBC 3.54 L (4.30-5.90) m/uL Hgb 10.2 L (13.0-17.5) gm/dL Hct 32.6 L (39.0-53.0) % MCV 92.0 (80.0-100.0) fL MCH 28.8 (25.0-35.0) pg MCHC 31.3 (31.0-37.0) g/dL RDW 19.7 H (11.5-15.5) % Plt Count 398 (150-450) k/uL Neutrophils % 88 % Lymphocytes % 5 % Monocytes % 4 % Eosinophils % 1 % Basophils % 0 % Neutrophils # 21.5 H (1.3-7.7) k/uL Lymphocytes # 1.3 (1.0-4.8) k/uL Monocytes # 1.0 (0-1.0) k/uL Eosinophils # 0.3 (0-0.7) k/uL Basophils # 0.0 (0-0.2) k/uL Hypochromasia Marked Poikilocytosis Slight Anisocytosis Slight PT (9.0-12.0) sec INR (<1.2) APTT (22.0-30.0) sec Sodium 139 (137-145) mmol/L Potassium 5.3 H (3.5-5.1) mmol/L Chloride 114 H (98-107) mmol/L Carbon Dioxide 10 L (22-30) mmol/L Anion Gap 15 mmol/L BUN 54 H (9-20) mg/dL Creatinine 2.77 H (0.66-1.25) mg/dL Est GFR (CKD-EPI)AfAm 26 (>60 ml/min/1.73 sqM) Est GFR (CKD-EPI)NonAf 23 (>60 ml/min/1.73 sqM) Glucose 130 H (74-99) mg/dL Plasma Lactic Acid Fred 1.3 (0.7-2.0) mmol/L Calcium 8.9 (8.4-10.2) mg/dL Phosphorus 5.1 H (2.5-4.5) mg/dL Magnesium 1.6 (1.6-2.3) mg/dL Total Bilirubin 0.2 (0.2-1.3) mg/dL AST 11 L (17-59) U/L ALT <6 L (21-72) U/L Alkaline Phosphatase 135 H (38-126) U/L Troponin I (0.000-0.034) ng/mL Total Protein 6.8 (6.3-8.2) g/dL Albumin 3.1 L (3.5-5.0) g/dL Urine Color Urine Appearance (Clear) Urine pH (5.0-8.0) Ur Specific Mullins (1.001-1.035) Urine Protein (Negative) Urine Glucose (UA) (Negative) Urine Ketones (Negative) Urine Blood (Negative) Urine Nitrite (Negative) Urine Bilirubin (Negative) Urine Urobilinogen (<2.0) mg/dL Ur Leukocyte Esterase (Negative) Urine RBC (0-5) /hpf Urine WBC (0-5) /hpf Urine WBC Clumps (None) /hpf Ur Squamous Epith Cells (0-4) /hpf Urine Mucus (None) /hpf 08/31/18 08/31/18 08/31/18 Range/Units 21:51 21:51 22:56 WBC (3.8-10.6) k/uL RBC (4.30-5.90) m/uL Hgb (13.0-17.5) gm/dL Hct (39.0-53.0) % MCV (80.0-100.0) fL MCH (25.0-35.0) pg MCHC (31.0-37.0) g/dL RDW (11.5-15.5) % Plt Count (150-450) k/uL Neutrophils % % Lymphocytes % % Monocytes % % Eosinophils % % Basophils % % Neutrophils # (1.3-7.7) k/uL Lymphocytes # (1.0-4.8) k/uL Monocytes # (0-1.0) k/uL Eosinophils # (0-0.7) k/uL Basophils # (0-0.2) k/uL Hypochromasia Poikilocytosis Anisocytosis PT 10.4 (9.0-12.0) sec INR 1.0 (<1.2) APTT 27.4 (22.0-30.0) sec Sodium (137-145) mmol/L Potassium (3.5-5.1) mmol/L Chloride (98-107) mmol/L Carbon Dioxide (22-30) mmol/L Anion Gap mmol/L BUN (9-20) mg/dL Creatinine (0.66-1.25) mg/dL Est GFR (CKD-EPI)AfAm (>60 ml/min/1.73 sqM) Est GFR (CKD-EPI)NonAf (>60 ml/min/1.73 sqM) Glucose (74-99) mg/dL Plasma Lactic Acid Fred (0.7-2.0) mmol/L Calcium (8.4-10.2) mg/dL Phosphorus (2.5-4.5) mg/dL Magnesium (1.6-2.3) mg/dL Total Bilirubin (0.2-1.3) mg/dL AST (17-59) U/L ALT (21-72) U/L Alkaline Phosphatase (38-126) U/L Troponin I <0.012 (0.000-0.034) ng/mL Total Protein (6.3-8.2) g/dL Albumin (3.5-5.0) g/dL Urine Color Light Yellow Urine Appearance Cloudy (Clear) Urine pH 5.5 (5.0-8.0) Ur Specific Mullins 1.014 (1.001-1.035) Urine Protein 2+ H (Negative) Urine Glucose (UA) Negative (Negative) Urine Ketones Negative (Negative) Urine Blood Trace H (Negative) Urine Nitrite Negative (Negative) Urine Bilirubin Negative (Negative) Urine Urobilinogen <2.0 (<2.0) mg/dL Ur Leukocyte Esterase Large H (Negative) Urine RBC 2 (0-5) /hpf Urine WBC 156 H (0-5) /hpf Urine WBC Clumps Rare H (None) /hpf Ur Squamous Epith Cells <1 (0-4) /hpf Urine Mucus Rare H (None) /hpf - EKG Data -: EKG Interpreted by Me - Radiology Data Radiology results: report reviewed (Chest x-rays negative for acute disease, CT head and pelvis positive stool significant amount of stool and likely ileus), image reviewed Critical Care Time Critical Care Time: Yes Total Critical Care Time: 31 Disposition Clinical Impression: Acute renal failure, MUMTAZ (acute kidney injury), Dehydration, Abdominal pain, Fever, Ileus Disposition: ADMITTED IP TO THIS HOSP Condition: Fair Is patient prescribed a controlled substance at d/c from ED?: No
--- NOTE | 2018-08-31 22:46 | XR ---
EXAM: XR Chest, 2 Views CLINICAL HISTORY: ITS.REASON XR Reason: Weakness TECHNIQUE: Frontal and lateral views of the chest. COMPARISON: 07/21/2018 FINDINGS: Lungs: Patchy right hilar infiltrates and peribronchial thickening which is worse on the right. Left lower lobe airspace disease is also present obscuring a portion of the hemidiaphragm. Pleural space: Small left pleural effusion, decreased in size since the previous exam. No visualized pneumothorax. Heart: Cardiac silhouette size is within normal limits. Mediastinum: Unremarkable. Bones/joints: Degenerative changes of the bilateral acromioclavicular joints. Stable degenerative changes along spine. IMPRESSION: 1. Right hilar and left basilar airspace disease superimposed on peribronchial thickening. Findings concerning for acute infectious/inflammatory infiltrate. Posttreatment imaging is recommended to confirm resolution. 2. Small left pleural effusion.
[2018-08-31] MEDS ORDERED: VANCOMYCIN IV PER PHARMACY 1 EACH MISC MISCELLANE PRN (23:15)
[2018-08-31] MEDS ORDERED: PIPERACILLIN-TAZOBACTAM 3.375 GM in SODIUM CHLORIDE 0.9% 100 ML IVPB STA (23:15)
[2018-08-31 23:17] LABS: Appearance,Urine Cloudy (Clear); Bilirubin,Urine Negative (Negative); Blood,Urine Trace (Negative); Color,Urine Light Yellow; Glucose,Urine (UA) Negative (Negative); Ketones,Urine Negative (Negative); Leukocyte Esterase,Urine Large (Negative); Mucus,Urine Rare /hpf; Nitrite,Urine Negative (Negative); PH, Urine 5.5 (5.0-8.0); Protein,Urine 2+ (Negative); RBC,Urine 2 /hpf (0-5); Specific Gravity,Urine 1.014 (1.001-1.035); Squamous Epithelial Cell,Urine <1 /hpf (0-4); Urobilinogen,Urine <2.0 mg/dL (<2.0); WBC,Urine 156 /hpf (0-5)
[2018-08-31] MEDS: SODIUM CHLORIDE 0.9% 500 ML 500 ML IV SCH (23:45)
--- NOTE | 2018-08-31 23:48 | CT ---
EXAM: CT Abdomen and Pelvis Without Intravenous Contrast CLINICAL HISTORY: ITS.REASON CT Reason: pain TECHNIQUE: Axial computed tomography images of the abdomen and pelvis without intravenous contrast. CTDI is 5.4 mGy and DLP is 329.7 mGy-cm. This CT exam was performed using one or more of the following dose reduction techniques: automated exposure control, adjustment of the mA and/or kV according to patient size, and/or use of iterative reconstruction technique. Coronal and sagittal reformatted images were created and reviewed. COMPARISON: 12/17/14 FINDINGS: Lung bases: See below. Pleural space: Bilateral pleural effusions. Bilateral lower lung airspace disease favoring atelectasis. Mediastinum: Possible small hiatal hernia. ABDOMEN: Liver: Slightly heterogeneous attenuation of the liver, limited by motion artifact and unenhanced imaging. Gallbladder and bile ducts: Gallbladder is partially contracted with associated wall thickening. No calcified gallstones identified. No ductal dilation. Pancreas: Extensive calcifications of the pancreatic head level and throughout the parenchyma suggesting sequela of chronic pancreatitis. No ductal dilation. Spleen: Unremarkable. No splenomegaly. Adrenals: Unremarkable. No mass. Kidneys and ureters: Bilateral perinephric stranding, slightly worse on the left side with equivocal for acute reactive changes. Bilateral renal cysts, ill-defined on noncontrast imaging the measuring up to approximately 1.7 cm on the left with simple fluid density. No evidence for hydronephrosis or obstructing calcified urinary stones at this time. Stomach and bowel: Moderately prominent colonic stool burden. No evidence for focal mucosal edema or pericolonic inflammatory changes at this time. The small bowel has a normal caliber, with a few nonspecific fluid levels. A percutaneous gastrostomy tube is present with grossly appropriate position. PELVIS: Appendix: No findings to suggest acute appendicitis. Bladder: There is circumferential urinary bladder wall thickening, nonspecific and possibly related to underdistention or prostate hypertrophy. No stones. Reproductive: Prostate BX lobe hypertrophy is present. ABDOMEN and PELVIS: Intraperitoneal space: No free air. No significant fluid collection. Bones/joints: Multilevel disc space height loss and osteophytosis and Schmorl's node formation. Multilevel facet arthropathy. No acute fracture. No dislocation. Soft tissues: Nonacute. Vasculature: Diffuse atherosclerotic changes are present, limited characterization on unenhanced imaging. No abdominal aortic aneurysm. Lymph nodes: Small nodular soft tissue component along the leftward periphery of the prostate is again noted and may represent a small vessel or lymph node, also seen previously. IMPRESSION: 1. Moderately prominent colonic stool burden which could suggest constipation. There are a few scattered fluid levels throughout the small bowel without evidence for focal obstruction. Query ileus or nonspecific gastroenteritis. 2. Bilateral perinephric stranding which could be related to scarring or reactive changes, slightly worse on the left side. No evidence for obstruction. Correlate to exclude pyelonephritis. 3. Bilateral pleural effusions. 4. Other nonacute and incidental findings as discussed above.
[2018-09-01] MEDS ORDERED: VANCOMYCIN 1,000 MG in SODIUM CHLORIDE 0.9% 250 ML IVPB ONE ×2
[2018-09-01] MEDS: SODIUM CHLORIDE 0.9% 1,000 ML IV SCH ×5 (00:57→20:13)
[2018-09-01] MEDS ORDERED: ENOXAPARIN 40 MG/0.4 ML SYRINGE SQ SCH (09:00)
[2018-09-01] MEDS: ACETAMINOPHEN TAB 325 MG TAB PO PRN ×2 (09:45→19:16)
[2018-09-01] MEDS: IPRATROPIUM-ALBUTEROL 3 ML NEB INHALATION SCH ×3 (11:50→20:19)
[2018-09-01] MEDS ORDERED: VANCOMYCIN 1,250 MG in SODIUM CHLORIDE 0.9% 250 ML IVPB ONE (14:00)
[2018-09-01] MEDS: LEVOTHYROXINE 25 MCG TAB PO SCH (14:14)
[2018-09-01] MEDS: METOPROLOL TARTRATE 50 MG TAB PO SCH ×2 (14:14→20:12)
[2018-09-01] MEDS: MAGNESIUM OXIDE 400 MG TAB PO SCH (14:14)
[2018-09-01] MEDS: FERROUS SULFATE 325 MG TAB PO SCH (14:14)
[2018-09-01] MEDS: CHOLECALCIFEROL 1,000 UNIT TAB PO SCH (14:14)
[2018-09-01] MEDS: PIPERACILLIN-TAZOBACTAM 3.375 GM in SODIUM CHLORIDE 0.9% 100 ML IVPB SCH ×2 (14:14→23:44)
[2018-09-01] MEDS: amLODIPine 10 MG TAB PO SCH (14:14)
[2018-09-01] MEDS: SODIUM BICARBONATE TAB 650 MG TAB PO SCH (14:15)
[2018-09-01 15:57] VITALS: BMI 18.7
--- NOTE | 2018-09-01 17:16 | HP ---
HISTORY AND PHYSICAL DATE OF ADMISSION: 08/31/2018. DATE OF SERVICE: 09/01/2018. PRESENTING COMPLAINT: Fever. HISTORY OF PRESENTING COMPLAINT: This is a 68-year-old patient who presented here from the [facility]. The patient was here in the hospital about 5 weeks ago, had a rather extensive course in the hospital at that time and was treated for pneumonia, metabolic encephalopathy and acute respiratory failure. Was on the ventilator. Also found to have esophagitis and hyponatremia, was in septic shock. Also had acute tubular necrosis. GI bleed with multiple blood transfusions. No obvious source was found. Patient also had a pleural effusion. Thoracentesis was carried out. The patient was dysphagic and had to be placed on the PEG tube. Since then, patient is doing better, now able to walk about in his room. He has been tolerating oral diet and not be using his PEG tube feeding. The patient was found to have a fever and was sent in here. Also white count was really up to about 30,000. Started on antibiotics in the ER including Zosyn. The patient's urine also came back rather infected appearing and chest x-ray is reporting infiltrates. The patient is rather restricted about his symptoms. He states he has fed up with the [facility]. REVIEW OF SYSTEMS: CONSTITUTIONAL: Fevers. HEENT: None. RESPIRATORY: Cough. CARDIOVASCULAR: None. GASTROINTESTINAL: None. MUSCULOSKELETAL: None. DERMATOLOGICAL, HEMATOLOGIC, LYMPHATICS: None. PSYCHIATRY: None. NEUROLOGIC: None. PAST MEDICAL HISTORY: Acute respiratory failure being on the ventilator, esophagitis, kidney failure, GI bleed, hypothyroid, left pleural effusion. PAST SURGICAL HISTORY: Cervical surgery, bilateral cataract removal with lens implant, umbilical hernia, PEG tube, biliary stent. SOCIAL HISTORY: Was drinking a fifth of whiskey in the past but down in the last few years. Also was a smoker. HOME MEDICATIONS: 1. Norvasc 10 mg a day. 2. Sodium bicarb 650 mg a day. 3. Prilosec 20 mg b.i.d. 4. Lopressor 50 mg b.i.d. 5. Magnesium oxide 400 mcg a day. 6. Synthroid 25 mcg a day. 7. DuoNeb q.i.d. 8. Iron 325 p.o. daily. 9. Vitamin D2, 66,000 units every 7 days. 10.Vitamin D3, 1000 units p.o. daily. 11.Tylenol 650 mg every 6h. ALLERGIES: None. PHYSICAL EXAMINATION: Vital signs on presentation, temperature 100.2, pulse 105, respirations 17, blood pressure 126/71, pulse ox 94 percent on room air. GENERAL APPEARANCE: Average built, lying in bed, tired-appearing. EYES: Pupils equal. Conjunctivae normal. HEENT: External appearance of nose and ears normal. Oral cavity normal. NECK: JVD not raised. Mass not palpable. Respiratory effort normal. LUNGS: Diminished breath sounds. CARDIOVASCULAR: 1st and 2nd sounds. No edema. ABDOMEN: Soft, nontender. Liver and spleen not palpable. PEG tube in place. LYMPHATIC: No lymph nodes palpable in the neck and axilla. PSYCHIATRY: Alert and oriented x3. Mood and affect slightly anxious-appearing. NEUROLOGICAL: Pupils equal. Cranial nerves grossly intact. Power and sensation grossly intact. INVESTIGATIONS: Resting white count 24.3, hemoglobin 10.2, potassium 5.3, BUN 54, creatinine 2.77. BUN and creatinine was 72/2.73 on 07/25/2018. UA positive for leukocyte esterase, WBC. EKG tracing personally reviewed by me shows sinus tachycardia CT scan of the abdomen and pelvis shows partially contracted gallbladder, moderately prominent colonic stool burden, bilateral pleural effusion. Chest x-ray film personally reviewed by me shows some infiltrates. ASSESSMENT: 1. Possible pneumonia, the patient being having some cough. 2. Acute UTI from cystitis. 3. Chronic esophagitis. 4. PEG tube, currently not being used. 5. Hypothyroid. 6. Chronic kidney disease stage 4 from nephrosclerosis. 7. Metabolic acidosis from chronic kidney disease. 8. Hyperkalemia in a setting of chronic kidney disease. 9. Normocytic anemia. 10.Sepsis from pneumonia. PLAN: Patient is started on IV Zosyn. Cultures have been sent and we will await the same. Will add sodium bicarbonate. Hold of vancomycin. Bronchodilators will be given. Care was discussed with the patient. manager of information will be involved. MMODL / IJN: [id number] /
[2018-09-01] MEDS: PANTOPRAZOLE 40 MG TABLET PO SCH (17:34)
[2018-09-02] MEDS: IPRATROPIUM-ALBUTEROL 3 ML NEB INHALATION PRN (01:47)
[2018-09-02] MEDS: LEVOTHYROXINE 25 MCG TAB PO SCH (05:58)
[2018-09-02] MEDS: IPRATROPIUM-ALBUTEROL 3 ML NEB INHALATION SCH ×4 (08:22→20:39)
[2018-09-02] MEDS: SODIUM BICARBONATE TAB 650 MG TAB PO SCH (09:11)
[2018-09-02] MEDS: ENOXAPARIN 30 MG/0.3 ML SYRINGE SQ SCH (09:11)
[2018-09-02] MEDS: METOPROLOL TARTRATE 50 MG TAB PO SCH ×2 (09:13→20:32)
[2018-09-02] MEDS: FERROUS SULFATE 325 MG TAB PO SCH (09:13)
[2018-09-02] MEDS: amLODIPine 10 MG TAB PO SCH (09:13)
[2018-09-02] MEDS: MAGNESIUM OXIDE 400 MG TAB PO SCH (09:13)
[2018-09-02] MEDS: PANTOPRAZOLE 40 MG TABLET PO SCH (09:13)
[2018-09-02] MEDS: CHOLECALCIFEROL 1,000 UNIT TAB PO SCH (09:13)
[2018-09-02] MEDS: ACETAMINOPHEN TAB 325 MG TAB PO PRN ×2 (09:19→20:32)
[2018-09-02] MEDS: PIPERACILLIN-TAZOBACTAM 3.375 GM in SODIUM CHLORIDE 0.9% 100 ML IVPB SCH ×2 (12:04→23:50)
[2018-09-02] MEDS: SODIUM CHLORIDE 0.9% 1,000 ML IV SCH (20:31)
--- NOTE | 2018-09-03 00:03 | PN ---
PROGRESS NOTE DATE OF SERVICE: September 02, 2018. PRESENTING COMPLAINT: Tired. INTERVAL HISTORY: This patient presented with a sepsis picture, urinary tract infection and pneumonia. Tolerating a diet, feeling better. REVIEW OF SYSTEMS: Done for constitutional, cardiovascular, GI, pulmonary; relevant findings as above. CURRENT MEDICATIONS: Reviewed that include IV Zosyn. EXAMINATION: VITAL SIGNS: On examination, afebrile. Pulse 78, respirations 12, blood pressure 91/44, pulse ox 99 percent. GENERAL APPEARANCE: Sitting up, more awake. Comfortable. EYES: Pupils equal. Conjunctivae normal. NECK: JVD not raised. Mass not palpable. RESPIRATORY: Effort normal. LUNGS: Diminished breath sounds. CARDIOVASCULAR: First and second sounds normal. No edema. ABDOMEN: Soft, nontender. Liver and spleen not palpable. PEG tube placed. PSYCHIATRY: Alert and oriented times three. Mood and affect normal. INVESTIGATIONS: No blood work from today. Urine culture has been negative. ASSESSMENT: 1. Sepsis from pneumonia suspect gram-negative organism and acute urinary tract infection from cystitis. 2. Chronic esophagitis. 3. PEG tube currently not being used. 4. Hypothyroid. 5. Chronic kidney disease stage 4 from nephrosclerosis. 6. Metabolic acidosis from chronic kidney disease. 7. Hyperkalemia in a setting of chronic kidney disease. 8. Normocytic anemia. PLAN: Continue current medication and treatment plan. Repeat labs in the morning. Care was discussed with the patient. Clinically looking better. MMODL / IJN: [id number] /
[2018-09-03] MEDS: BENZOCAINE/MENTHOL LOZENG 1 EACH LOZENGE MUCOUS MEM PRN (00:19)
[2018-09-03] MEDS: IPRATROPIUM-ALBUTEROL 3 ML NEB INHALATION PRN (04:59)
[2018-09-03] MEDS: LEVOTHYROXINE 25 MCG TAB PO SCH (05:51)
[2018-09-03 07:44] LABS: Calcium 8.4 mg/dL (8.4-10.2); Potassium 4.7 mmol/L (3.5-5.1)
[2018-09-03] MEDS: IPRATROPIUM-ALBUTEROL 3 ML NEB INHALATION SCH ×4 (08:05→20:28)
[2018-09-03 08:14] LABS: Anisocytosis Slight; Basophils # (A) 0.1 k/uL (0-0.2); Basophils % (A) 0 %; Eosinophils % (A) 7 %; HCT 26.4 % (39.0-53.0); Hypochromasia Marked; Lymphocytes # (A) 0.8 k/uL (1.0-4.8); Lymphocytes % (A) 6 %; MCHC 30.7 g/dL (31.0-37.0); MCV 94.4 fL (80.0-100.0); Macrocytosis Slight; Mean Platelet Volume 7.4; Monocytes # (A) 0.3 k/uL (0-1.0); Monocytes % (A) 2 %; Neutrophils # (A) 12.4 k/uL (1.3-7.7); Neutrophils % (A) 84 %; Platelet Count 448 k/uL (150-450); Poikilocytosis Slight; RDW 19.8 % (11.5-15.5); WBC 14.7 k/uL (3.8-10.6)
[2018-09-03 08:15] LABS: HGB 8.1 gm/dL (13.0-17.5)
[2018-09-03] MEDS: PANTOPRAZOLE 40 MG TABLET PO SCH (08:54)
[2018-09-03] MEDS: METOPROLOL TARTRATE 50 MG TAB PO SCH ×2 (08:54→20:43)
[2018-09-03] MEDS: SODIUM BICARBONATE TAB 650 MG TAB PO SCH (08:55)
[2018-09-03] MEDS: FERROUS SULFATE 325 MG TAB PO SCH (08:55)
[2018-09-03] MEDS: CHOLECALCIFEROL 1,000 UNIT TAB PO SCH (08:55)
[2018-09-03] MEDS: amLODIPine 10 MG TAB PO SCH (08:55)
[2018-09-03] MEDS: MAGNESIUM OXIDE 400 MG TAB PO SCH (08:55)
[2018-09-03] MEDS: ENOXAPARIN 30 MG/0.3 ML SYRINGE SQ SCH (08:55)
[2018-09-03] MEDS: ACETAMINOPHEN TAB 325 MG TAB PO PRN ×2 (09:13→16:57)
[2018-09-03] MEDS: PIPERACILLIN-TAZOBACTAM 3.375 GM in SODIUM CHLORIDE 0.9% 100 ML IVPB SCH ×2 (11:30→23:47)
--- NOTE | 2018-09-03 11:34 | CDI ---
Documentation Clarification Form Date: 09/03/2018 11:17:36 AM From: Bisi Husain RN, CCDS Admit Date: 08/31/2018 11:17:00 PM Patient Name: Twin Enamorado Visit Number: [id number] ATTENTION: The Clinical Documentation Specialists (CDI) and [facility] Coding Staff appreciate your assistance in clarifying documentation. Please respond to the clarification below the line at the bottom and electronically sign. The CDI & [facility] Coding staff will review the response and follow-up if needed. Please note: Queries are made part of the Legal Health Record. If you have any questions, please contact the author of this message via ITS. Dr. John Elliott A diagnosis of anemia lacks specificity to accurately reflect your patients severity of condition and clarification is needed. History/Risk Factors: CKD stage 4, sepsis, gram neg pneumonia, chronic esophagitis Clinical indicators: H&P and Progress Note: "normocytic anemia" Hemoglobin: 10.2/8.1 Hematocrit: 32.6/26.4 Treatment: Monitoring labs am daily Feosol 325 mg PO QD IVF Bolus In order to capture the severity of condition, please clarify the type of anemia and etiology if known: Acute blood loss anemia Acute on chronic blood loss anemia Chronic blood loss anemia Iron deficiency anemia Nutritional anemia Anemia of chronic kidney disease Anemia of chronic disease (please specify) Unable to determine Other, please specify (Last Revision: January 2017) anemia of chronic kidney disease MTDD
[2018-09-04] MEDS: IPRATROPIUM-ALBUTEROL 3 ML NEB INHALATION PRN (00:54)
[2018-09-04] MEDS: BENZOCAINE/MENTHOL LOZENG 1 EACH LOZENGE MUCOUS MEM PRN (01:11)
[2018-09-04] MEDS: SODIUM CHLORIDE 0.9% 1,000 ML IV SCH (01:47)
[2018-09-04] MEDS: LEVOTHYROXINE 25 MCG TAB PO SCH (05:38)
--- NOTE | 2018-09-04 06:23 | PN ---
PROGRESS NOTE DATE OF SERVICE: 09/03/2018 PRESENTING COMPLAINT: Tired. INTERVAL HISTORY: Patient presented with sepsis with both pneumonia and UTI. Continues to feel better. Speech therapist saw the patient, evaluating his diet. They may do some further testing. Overall, patient is feeling better. REVIEW OF SYSTEMS: Done for constitutional, cardiovascular, GI, pulmonary; relevant findings as above. CURRENT MEDICATIONS: Current medications are reviewed include IV Zosyn. PHYSICAL EXAMINATION: On examination, temperature 97.9, pulse 81, respiration 16, blood pressure 99/63, pulse ox 100% on nasal cannula. GENERAL APPEARANCE: Sitting up, comfortable. EYES: Pupils equal. Conjunctivae normal. NECK: JVD not raised. Mass not palpable. RESPIRATORY: Effort LUNGS: Decreased breath sounds. CARDIOVASCULAR: First and second sounds normal. No edema. ABDOMEN: Soft, nontender. Liver and spleen not palpable. PEG tube in place. PSYCHIATRY: Alert and oriented x3. Mood and affect normal. INVESTIGATIONS: White count 14.7, hemoglobin 8.1. Potassium 4.7. BUN 54, creatinine 2.88. ASSESSMENT: 1. Sepsis from pneumonia suspect gram-negative organism, an acute urinary tract infection from cystitis. 2. Chronic esophagitis. 3. PEG tube, currently not being used. 4. Hypothyroid. 5. Chronic kidney disease stage 4 from nephrosclerosis. 6. Metabolic acidosis from chronic kidney disease. 7. Hyperkalemia in a setting of chronic kidney disease. 8. Anemia of chronic kidney disease. 9. Also anemia from recent gastrointestinal blood loss. PLAN: Continue the patient on sodium bicarbonate. Will get an opinion from Nephrology. Speech therapist will determine the patient's diet. MMODL / IJN: [id number] /
[2018-09-04 08:27] LABS: Anisocytosis Moderate; Basophils # (A) 0.1 k/uL (0-0.2); Basophils % (A) 0 %; Eosinophils % (A) 7 %; HCT 29.7 % (39.0-53.0); Hypochromasia Marked; Lymphocytes % (A) 7 %; MCH 28.7 pg (25.0-35.0); MCHC 30.5 g/dL (31.0-37.0); MCV 94.1 fL (80.0-100.0); Macrocytosis Slight; Mean Platelet Volume 7.3; Monocytes # (A) 0.4 k/uL (0-1.0); Monocytes % (A) 3 %; Neutrophils % (A) 82 %; Platelet Count 486 k/uL (150-450); Poikilocytosis Slight; RBC 3.15 m/uL (4.30-5.90); RDW 20.4 % (11.5-15.5); WBC 14.8 k/uL (3.8-10.6)
[2018-09-04 08:40] LABS: Calcium 8.4 mg/dL (8.4-10.2); Potassium 4.7 mmol/L (3.5-5.1)
[2018-09-04] MEDS: IPRATROPIUM-ALBUTEROL 3 ML NEB INHALATION SCH ×4 (09:03→21:15)
[2018-09-04] MEDS: SODIUM BICARBONATE TAB 650 MG TAB PO SCH (09:18)
[2018-09-04] MEDS: PANTOPRAZOLE 40 MG TABLET PO SCH (09:18)
[2018-09-04] MEDS: amLODIPine 10 MG TAB PO SCH (09:18)
[2018-09-04] MEDS: ENOXAPARIN 30 MG/0.3 ML SYRINGE SQ SCH (09:18)
[2018-09-04] MEDS: FERROUS SULFATE 325 MG TAB PO SCH (09:18)
[2018-09-04] MEDS: METOPROLOL TARTRATE 50 MG TAB PO SCH ×2 (09:18→21:03)
[2018-09-04] MEDS: CHOLECALCIFEROL 1,000 UNIT TAB PO SCH (09:18)
[2018-09-04] MEDS: MAGNESIUM OXIDE 400 MG TAB PO SCH (09:18)
[2018-09-04] MEDS: ACETAMINOPHEN TAB 325 MG TAB PO PRN ×2 (09:27→16:59)
--- NOTE | 2018-09-04 12:05 | FL ---
Modified barium swallow HISTORY: Aspiration, history laryngeal penetration 2 minute 16 seconds fluoroscopy time. No images obtained. Real-time evaluation during ingestion of solids and liquids under fluoroscopy in the lateral projecti on. Food and liquids mixed with barium. Vallecular residuals are noted during the exam. Some minimal laryngeal penetration noted on thin liqu ids. No howard aspiration. See dictated report from speech pathology for full evaluation.
--- NOTE | 2018-09-04 12:09 | P.NPCON ---
History of Present Illness - Reason for Consult acute renal failure, chronic renal failure - History of Present Illness Reason for consultation: Acute kidney injury on chronic kidney disease History of present illness: Patient is a 68-year-old male seen in renal consultation for acute kidney injury on chronic kidney disease. Patient was recently admitted at [facility] in June 2018. At that point the patient had staph pneumonia. Patient had also developed acute kidney injury with creatinine greater than 6 which subsequently improved over time. Patient was seen in the office in July and at that time his creatinine was 2.2. Patient presented to the hospital with fever. His temperature was 100.2 on admission on August 31. He's been afebrile the last 2-3 days. Patient has vocal cord dysfunction and has a PEG tube in place. Patient states he has not been using the PEG tube but his oral intake has been quite poor. He denies any vomiting or diarrhea. No edema. Denies chest pain or shortness of breath. Renal function is stable this admission. Creatinine is 2.77 today. He admits to good urine output. No hematuria or dysuria. Denies use of nonsteroidals. Cultures have been negative. Vital signs are stable. General: The patient appeared well nourished and normally developed. HEENT: Head exam is unremarkable. Neck is without jugular venous distension. LUNGS: Lungs are clear to auscultation and percussion. Breath sounds decreased. HEART: Rate and Rhythm are regular. First and second heart sounds normal. No murmurs, rubs or gallops. ABDOMEN: Abdominal exam reveals normal bowel sounds. Non-tender and non- distended. No evidence of peritonitis. EXTREMITITES: No clubbing, cyanosis, or edema. Past Medical History Past Medical History: Hypertension, Pneumonia Additional Past Medical History / Comment(s): Hx calculus of bile duct, acute cholecystitis, pancreatitis. History of Any Multi-Drug Resistant Organisms: None Reported Past Surgical History: Orthopedic Surgery Additional Past Surgical History / Comment(s): cervical surgery, bilateral cataract removal with lens implants, umbilical hernia as a baby, bile duct stent, ERCP, C3-6 plate Past Anesthesia/Blood Transfusion Reactions: No Reported Reaction Past Psychological History: No Psychological Hx Reported Smoking Status: Former smoker Past Alcohol Use History: Occasional Past Drug Use History: None Reported - Past Family History Father Family Medical History: Cancer Additional Family Medical History / Comment(s): Melanoma Mother Family Medical History: Cancer Additional Family Medical History / Comment(s): Breast cancer. Medications and Allergies Home Medications Medication Instructions Recorded Confirmed Type Sodium Bicarbonate Tab 650 mg PO DAILY 06/29/18 08/31/18 History amLODIPine BESYLATE [Norvasc] 10 mg PO DAILY 06/29/18 08/31/18 History Ferrous Sulfate [Feosol] 325 mg PO DAILY #30 tab 07/04/18 08/31/18 Rx Ipratropium-Albuterol Nebulize 3 ml INHALATION RT-QID ampul.neb 07/24/18 08/31/18 Rx [Duoneb 0.5 mg-3 mg/3 ml Soln] Levothyroxine Sodium [Synthroid] 25 mcg PO DAILY #1 tab 07/24/18 08/31/18 Rx Metoprolol Tartrate [Lopressor] 50 mg PO BID tab 07/24/18 08/31/18 Rx Omeprazole [PriLOSEC] 20 mg PO AC-BID #1 cap 07/24/18 08/31/18 Rx Acetaminophen Tab [Tylenol] 650 mg PO Q6H 08/31/18 08/31/18 History Cholecalciferol [Vitamin D3 (25 1,000 unit PO DAILY 08/31/18 08/31/18 History Mcg = 1000 Iu)] Ergocalciferol (Vitamin D2) 66,000 unit PO Q7D 08/31/18 08/31/18 History [Ergocalciferol] Magnesium Oxide [Mag-Ox] 400 mg PO DAILY 08/31/18 08/31/18 History Allergies Allergy/AdvReac Type Severity Reaction Status Date / Time No Known Allergies Allergy Verified 08/31/18 22:19 Physical Exam Vitals: Vital Signs Temp Pulse Pulse Resp BP Pulse Ox 09/04/18 09:13 84 09/04/18 09:03 88 09/04/18 07:18 97.9 F 81 18 127/51 98 09/04/18 01:14 97.6 F 82 18 119/67 97 09/04/18 01:02 82 16 09/04/18 00:54 82 16 09/03/18 20:40 72 09/03/18 20:29 70 09/03/18 20:00 98.7 F 58 L 16 120/65 97 09/03/18 16:22 72 09/03/18 16:12 70 09/03/18 12:10 72 09/03/18 11:58 70 Intake and Output 09/03/18 09/04/18 09/04/18 22:59 06:59 14:59 Intake Total 60 Output Total 350 400 Balance -290 -400 Intake: Oral 60 Output: Urine 350 400 Other: Voiding Method Urinal # Bowel Movements 2 1 Results - Lab Results Most recent lab results Calcium 8.4 mg/dL (8.4-10.2) 09/04/18 07:46 Phosphorus 5.1 mg/dL (2.5-4.5) H 08/31/18 21:51 Magnesium 1.6 mg/dL (1.6-2.3) 08/31/18 21:51 09/04/18 07:46 09/04/18 07:46 Assessment and Plan Plan: Assessment: 1. Acute kidney injury mostly prerenal from poor oral intake and hypotension. Also there is concern for underlying GN. During his last admission in June 2018 he was noted to have low complement levels. Rest of the serologies were negative. 2. Chronic kidney disease stage III. Creatinine in July 2018 was 2.2. Prior to that it was in the range of 1.5-2. 3. Metabolic acidosis secondary to acute kidney injury. 4. Vocal cord dysfunction. Patient passed swallow eval this morning. PEG tube is currently not been used. 5. Hypertension with chronic kidney disease. Controlled. 6. Fever. Currently on antibiotics for pneumonia and cystitis. Cultures have been negative. 7. Anemia of chronic kidney disease. Rule out iron deficiency. Plan: Start bicarb drip at 60 mL an hour. Patient to start oral intake today. Avoid nephrotoxins. Check iron studies. I will check complement levels. If still low, will need a kidney biopsy. Hold antihypertensives if systolic blood pressure less than 120. Thank you for the consultation. I will continue to follow the patient with you during his hospital stay.
[2018-09-04] MEDS: PIPERACILLIN-TAZOBACTAM 3.375 GM in SODIUM CHLORIDE 0.9% 100 ML IVPB SCH ×2 (12:54→23:58)
[2018-09-04] MEDS: DEXTROSE 5% IN WATER 1,000 ML with SODIUM BICARB (1 MEQ/ML) 150 ML IV SCH (14:00)
--- NOTE | 2018-09-05 00:02 | PN ---
PROGRESS NOTE DATE OF SERVICE: 09/04/2018 PRESENTING COMPLAINT: Tired. INTERVAL HISTORY: Patient presents sepsis with both pneumonia and UTI. I spoke to Nohemi from [employer]. She is going to do modified barium swallow. print binding worker is looking into place rehab. REVIEW OF SYSTEMS: Done for constitutional, cardiovascular, GI, pulmonary; relevant findings as above. CURRENT MEDICATIONS: Reviewed that include IV Zosyn. PHYSICAL EXAMINATION: VITAL SIGNS: Temperature 97.9, pulse 81, respiratory 18, blood pressure 127/51, pulse ox 98% on 2 L. GENERAL APPEARANCE: Sitting up, comfortable. EYES: Pupils equal. Conjunctivae normal. NECK: JVD not raised. Mass not palpable. RESPIRATORY: Effort normal. LUNGS: Decreased breath sounds. CARDIOVASCULAR: 1st and 2nd sounds normal. No edema. ABDOMEN: Soft, nontender. Liver and spleen not palpable. PEG tube in place. PSYCHIATRY: Alert and oriented x3. Mood and affect normal. INVESTIGATIONS: White count 14.8, hemoglobin 9, potassium 4.7, bicarb 12, BUN 55, creatinine 2.77. ASSESSMENT: 1. Sepsis from pneumonia suspect gram-negative organism and acute urinary tract infection from cystitis. 2. Chronic esophagitis. 3. PEG tube currently not being used. 4. Hypothyroid. 5. Chronic kidney disease stage 4 from nephrosclerosis. 6. Metabolic acidosis from chronic kidney disease. 7. Hypokalemia setting of chronic kidney disease. 8. Anemia of chronic kidney disease. 9. Anemia from recent gastrointestinal blood loss. PLAN: I had a lengthy discussion with Nohemi Jauregui from [employer]. She discussed patient is supposed to do a chin tuck and lets observe the patient for another 24 hours to see how she does with instructions. Also spoke to experimental worker, the patient should be able to go to [facility]. The patient's cultures have been negative. Probably we will discharge the patient tomorrow, depending on the clinical course. Also per Nephrology, patient may need a kidney biopsy. MMODL / IJN: [id number] /
[2018-09-05] MEDS: SODIUM CHLORIDE 0.9% 1,000 ML IV SCH ×2 (00:05→20:22)
[2018-09-05 01:00] LABS: Iron Saturation 20.96 (15.00-50.00)
[2018-09-05] MEDS: ACETAMINOPHEN TAB 325 MG TAB PO PRN ×3 (02:25→20:15)
[2018-09-05 07:44] LABS: Calcium 7.9 mg/dL (8.4-10.2); Magnesium 1.5 mg/dL (1.6-2.3); Potassium 4.8 mmol/L (3.5-5.1)
[2018-09-05 07:50] VITALS: RESP 16
[2018-09-05] MEDS: PANTOPRAZOLE 40 MG TABLET PO SCH (07:59)
[2018-09-05] MEDS: LEVOTHYROXINE 25 MCG TAB PO SCH (07:59)
[2018-09-05] MEDS: DEXTROSE 5% IN WATER 1,000 ML with SODIUM BICARB (1 MEQ/ML) 150 ML IV SCH (08:37)
[2018-09-05] MEDS: MAGNESIUM OXIDE 400 MG TAB PO SCH (09:34)
[2018-09-05] MEDS: METOPROLOL TARTRATE 50 MG TAB PO SCH ×2 (09:34→20:15)
[2018-09-05] MEDS: ENOXAPARIN 30 MG/0.3 ML SYRINGE SQ SCH (09:35)
[2018-09-05] MEDS: CHOLECALCIFEROL 1,000 UNIT TAB PO SCH (09:35)
[2018-09-05] MEDS: FERROUS SULFATE 325 MG TAB PO SCH (09:35)
[2018-09-05] MEDS: SODIUM BICARBONATE TAB 650 MG TAB PO SCH (09:35)
[2018-09-05] MEDS: amLODIPine 10 MG TAB PO SCH (09:35)
[2018-09-05] MEDS: IPRATROPIUM-ALBUTEROL 3 ML NEB INHALATION SCH ×5 (10:02→20:43)
[2018-09-05] MEDS ORDERED: ASPIRIN 325 MG TAB PO STA (12:24)
[2018-09-05] MEDS: PIPERACILLIN-TAZOBACTAM 3.375 GM in SODIUM CHLORIDE 0.9% 100 ML IVPB SCH ×2 (12:53→23:16)
--- NOTE | 2018-09-05 18:18 | PN ---
PROGRESS NOTE Patient is seen for followup for acute kidney injury and chronic kidney disease. Renal function is slowly improving. His creatinine is down to 2.5 from 2.8 mg/dL. Currently patient is not on any IV fluids or diuretics. He has had good urine output. On examination, blood pressure this morning was 121/64, heart rate 84 per minute. He is afebrile EXAMINATION OF THE HEART: S1 and S2. EXAMINATION OF LUNGS: Bilateral breath sounds are heard. ABDOMEN: Soft, non-tender. Examination of lower extremities shows no significant edema. Labs show sodium of 144, potassium 4.8, BUN 53, serum creatinine 2.58. ASSESSMENT: 1. Chronic kidney disease, stage IV. Current baseline about 2 to 2.2. Patient did have proteinuria on his last admission, and his complements were low. However, repeat complement levels are not low. 2. Vocal cord dysfunction, status post feeding tube placement. Currently tolerating by mouth. 3. Pneumonia, maintained on antibiotics. PLAN: Continue off of IV bicarb. Continue with oral sodium bicarb for metabolic acidosis and repeat labs in a.m. Continue to avoid nephrotoxic agents. At this time I do not believe we need to proceed with kidney biopsy. MMODL / IJN: [id number] /
[2018-09-06] MEDS: DEXTROSE 5% IN WATER 1,000 ML with SODIUM BICARB (1 MEQ/ML) 150 ML IV SCH (02:13)
--- NOTE | 2018-09-06 05:41 | PN ---
PROGRESS NOTE DATE OF SERVICE: 09/05/2018 PRESENTING COMPLAINT: Tired. INTERVAL HISTORY: This patient presents sepsis with both pneumonia and UTI. Patient earlier today developed some chest pain. I ordered EKG and troponins. Patient's discharge to rehab was canceled. It was described as pressure-like, no radiation. No change in shortness of breath. No dizziness. No perspiration. REVIEW OF SYSTEMS: Done for constitutional, cardiovascular, GI, pulmonary; relevant findings as above. CURRENT MEDICATIONS: Current medications are reviewed that include IV Zosyn. PHYSICAL EXAMINATION: On examination, temperature 98.3, pulse 91, respiration 16, blood pressure 125/68, pulse ox 100% on 2.5 L. GENERAL APPEARANCE: Lying in bed, awake. EYES: Pupils equal. Conjunctivae normal. NECK: JVD not raised. Mass not palpable. RESPIRATORY: Effort normal. LUNGS: Decreased breath sounds. CARDIOVASCULAR: First and second sounds normal. No edema. ABDOMEN: Soft, nontender. Liver and spleen not palpable. PEG tube in place. PSYCHIATRY: Alert and oriented x3. Mood and affect normal. INVESTIGATIONS: Potassium 4.8. BUN 53, creatinine 2.58. First troponin was less than 0.012. EKG personally reviewed by me showed normal sinus rhythm. ASSESSMENT: 1. Chest pain, probably noncardiac. We will get a cardiology opinion. 2. Sepsis from pneumonia suspect gram-negative organism. 3. Acute urinary tract infection from cystitis. 4. Chronic esophagitis. 5. PEG tube currently not being used. 6. Hypothyroid. 7. Chronic kidney disease stage 4 from nephrosclerosis. 8. Metabolic acidosis from chronic kidney disease. 9. Hyperkalemia. 10.Anemia of chronic kidney disease. 11.Anemia, also from recent gastrointestinal blood loss. PLAN: Serial cardiac enzymes are done. Follow up with Nephrology. Will get a cardiology opinion. If all good patient hopefully can go [facility] the [facility] tomorrow. MMODL / IJN: [id number] /
[2018-09-06] MEDS: LEVOTHYROXINE 25 MCG TAB PO SCH (05:59)
[2018-09-06] MEDS: PANTOPRAZOLE 40 MG TABLET PO SCH (07:29)
[2018-09-06] MEDS: SODIUM BICARBONATE TAB 650 MG TAB PO SCH (07:29)
[2018-09-06] MEDS: METOPROLOL TARTRATE 50 MG TAB PO SCH (07:29)
[2018-09-06] MEDS: amLODIPine 10 MG TAB PO SCH (07:29)
[2018-09-06] MEDS: FERROUS SULFATE 325 MG TAB PO SCH (07:30)
[2018-09-06] MEDS: MAGNESIUM OXIDE 400 MG TAB PO SCH (07:30)
[2018-09-06] MEDS: ENOXAPARIN 30 MG/0.3 ML SYRINGE SQ SCH (07:30)
[2018-09-06] MEDS: PIPERACILLIN-TAZOBACTAM 3.375 GM in SODIUM CHLORIDE 0.9% 100 ML IVPB SCH (07:30)
[2018-09-06] MEDS: CHOLECALCIFEROL 1,000 UNIT TAB PO SCH (07:39)
[2018-09-06 08:09] LABS: Calcium 7.5 mg/dL (8.4-10.2); Potassium 4.9 mmol/L (3.5-5.1)
[2018-09-06] MEDS: IPRATROPIUM-ALBUTEROL 3 ML NEB INHALATION SCH ×2 (08:21→12:10)
[2018-09-06 08:33] VITALS: BP 114/71; TEMP 98.3
[2018-09-06] MEDS ORDERED: ASPIRIN 81 MG PO SCH (09:00)
--- NOTE | 2018-09-06 11:38 | P.PN ---
Subjective Patient is seen in follow-up for acute kidney injury on chronic kidney disease. Renal function is better. Creatinine 2.31 today. Oral intake is fair. He admits to good urine output. No vomiting or diarrhea. Vital signs are stable. General: The patient appeared well nourished and normally developed. HEENT: Head exam is unremarkable. Neck is without jugular venous distension. LUNGS: Lungs are clear to auscultation and percussion. Breath sounds decreased. HEART: Rate and Rhythm are regular. First and second heart sounds normal. No murmurs, rubs or gallops. ABDOMEN: Abdominal exam reveals normal bowel sounds. Non-tender and non-distende d. No evidence of peritonitis. EXTREMITITES: No clubbing, cyanosis, or edema. Objective - Vital Signs Vital signs: Vital Signs Temp 98.3 F 09/06/18 07:40 Pulse 78 09/06/18 08:35 Resp 16 09/06/18 07:40 BP 114/71 09/06/18 07:40 Pulse Ox 96 09/06/18 08:22 Intake & Output 09/05/18 09/06/18 09/06/18 18:59 06:59 18:59 Intake Total 1200 590 240 Output Total 600 300 Balance 600 290 240 Weight 55.792 kg Intake: Oral 1200 590 240 Output: Urine 600 300 Other: Voiding Method Urinal Urinal Urinal # Voids 2 3 # Bowel Movements 1 - Labs CBC & Chem 7: 09/04/18 07:46 09/06/18 07:12 Labs: Abnormal Lab Results - Last 24 Hours (Table) 09/06/18 Range/Units 07:12 BUN 50 H (9-20) mg/dL Creatinine 2.31 H (0.66-1.25) mg/dL Calcium 7.5 L (8.4-10.2) mg/dL Microbiology - Last 24 Hours (Table) 08/31/18 21:51 Blood Culture - Preliminary Blood No Growth after 120 hours Assessment and Plan Plan: Assessment: 1. Acute kidney injury mostly prerenal from poor oral intake and hypotension. Also there is concern for underlying GN. During his last admission in June 2018 he was noted to have low complement levels - now in the normal range. Rest of the serologies were negative. 2. Chronic kidney disease stage III. Creatinine in July 2018 was 2.2. Prior to that it was in the range of 1.5-2. 3. Metabolic acidosis secondary to acute kidney injury.Better. 4. Vocal cord dysfunction. Patient passed swallow eval and is tolerating oral intake. PEG tube is currently not been used. 5. Hypertension with chronic kidney disease. Controlled. 6. Fever. Currently on antibiotics for pneumonia and cystitis. Cultures have been negative. 7. Anemia of chronic kidney disease. iron deficiency noted. Plan: Discontinue bicarbonate drip. Start normal saline at 50 mL an hour. Maintain oral sodium bicarbonate. Encouraged oral intake. IV iron 2 doses. First dose today. Add Aranesp.
[2018-09-06] MEDS ORDERED: SODIUM CHLORIDE 0.9% 1,000 ML IV SCH (11:45)
[2018-09-06] MEDS ORDERED: SODIUM FERRIC GLUCONAT-SUCROSE 125 MG in SODIUM CHLORIDE 0.9% 100 ML IVPB SCH (12:00)
[2018-09-06 12:23] VITALS: PULSE 86
[2018-09-06] MEDS ORDERED: DARBEPOETIN ALFA 40 MCG/0.4 ML SYRINGE SQ SCH (12:30)
--- NOTE | 2018-09-06 12:50 | P.CRDCN ---
History of Present Illness Consult date: 09/06/18 Chief complaint: Chest pain History of present illness: This is a pleasant 68-year-old gentleman with a past medical history significant for hypertension as well as thyroid disorder and also chronic kidney disease who was admitted to the hospital with pneumonia and sepsis. During his hospital stay, he did have a chest discomfort and because of that we consulted to see the patient. The patient stated that he did have an episode of chest discomfort 2 days ago and he described the discomfort as a sharp kind of discomfort, in the mid of the chest, without any radiation, and without any associated symptoms. No dizziness or lightheadedness, heart racing or fluttering, or syncope. No established history of coronary artery disease or congestive heart failure or cardiac arrhythmia and the patient does not follow with any municipal court judge on a regular basis. The EKG showed sinus rhythm without any significant ST or T-wave abnormalities. 3 sets of cardiac enzymes were checked and came in to be unremarkable. In the absence of any chest or discomfort currently, and in view of the chronic kidney disease, in the absence of any ischemic ST or T-wave abnormalities and normal cardiac enzymes, I would recommend the patient to have a stress is probably as an outpatient. Past Medical History Past Medical History: Hypertension, Pneumonia Additional Past Medical History / Comment(s): Hx calculus of bile duct, acute cholecystitis, pancreatitis. History of Any Multi-Drug Resistant Organisms: None Reported Past Surgical History: Orthopedic Surgery Additional Past Surgical History / Comment(s): cervical surgery, bilateral cataract removal with lens implants, umbilical hernia as a baby, bile duct sten t, ERCP, C3-6 plate Past Anesthesia/Blood Transfusion Reactions: No Reported Reaction Past Psychological History: No Psychological Hx Reported Smoking Status: Former smoker Past Alcohol Use History: Occasional Past Drug Use History: None Reported - Past Family History Father Family Medical History: Cancer Additional Family Medical History / Comment(s): Melanoma Mother Family Medical History: Cancer Additional Family Medical History / Comment(s): Breast cancer. Medications and Allergies Home Medications Medication Instructions Recorded Confirmed Type amLODIPine BESYLATE [Norvasc] 10 mg PO DAILY 06/29/18 08/31/18 History Ferrous Sulfate [Feosol] 325 mg PO DAILY #30 tab 07/04/18 08/31/18 Rx Ipratropium-Albuterol Nebulize 3 ml INHALATION RT-QID ampul.neb 07/24/18 08/31/18 Rx [Duoneb 0.5 mg-3 mg/3 ml Soln] Levothyroxine Sodium [Synthroid] 25 mcg PO DAILY #1 tab 07/24/18 08/31/18 Rx Metoprolol Tartrate [Lopressor] 50 mg PO BID tab 07/24/18 08/31/18 Rx Omeprazole [PriLOSEC] 20 mg PO AC-BID #1 cap 07/24/18 08/31/18 Rx Acetaminophen Tab [Tylenol] 650 mg PO Q6H 08/31/18 08/31/18 History Cholecalciferol [Vitamin D3 (25 1,000 unit PO DAILY 08/31/18 08/31/18 History Mcg = 1000 Iu)] Ergocalciferol (Vitamin D2) 66,000 unit PO Q7D 08/31/18 08/31/18 History [Ergocalciferol] Magnesium Oxide [Mag-Ox] 400 mg PO DAILY 08/31/18 08/31/18 History Amoxicillin/Potassium Clav 1 tab PO Q12HR #10 tab 09/06/18 Rx [Augmentin 875-125 Tablet] Aspirin 81 mg PO DAILY chew 09/06/18 Rx Epoetin Von [Procrit] 4,000 unit IJ DIRECTED #1 vial 09/06/18 Rx Sodium Bicarbonate Tab 650 mg PO BID #0 09/06/18 08/31/18 Rx Allergies Allergy/AdvReac Type Severity Reaction Status Date / Time No Known Allergies Allergy Verified 08/31/18 22:19 Physical Exam Vitals: Vital Signs Temp Pulse Pulse Pulse Resp BP Pulse Ox 09/06/18 12:22 86 09/06/18 12:10 84 09/06/18 08:35 78 09/06/18 08:22 83 96 09/06/18 07:40 98.3 F 97 16 114/71 99 09/06/18 01:38 97.9 F 84 16 108/64 98 09/05/18 20:56 78 09/05/18 20:43 80 09/05/18 19:49 97.5 F L 96 16 115/67 98 09/05/18 16:53 82 09/05/18 16:40 80 96 09/05/18 16:00 16 09/05/18 14:32 98.3 F 91 16 125/68 100 09/05/18 13:32 84 09/05/18 13:22 84 Intake and Output 09/05/18 09/06/18 09/06/18 22:59 06:59 14:59 Intake Total 590 240 Output Total 300 Balance 290 240 Intake: Oral 590 240 Output: Urine 300 Other: Voiding Method Urinal Urinal # Voids 3 - Constitutional General appearance: no acute distress - Respiratory Respiratory: bilateral: CTA - Cardiovascular Rhythm: regular Heart sounds: normal: S1, S2 Results 09/04/18 07:46 09/06/18 07:12 Cardiac Enzymes 09/05/18 09/05/18 09/06/18 Range/Units 13:51 18:08 00:02 Troponin I <0.012 <0.012 <0.012 (0.000-0.034) ng/mL Comprehensive Metabolic Panel 09/06/18 Range/Units 07:12 Sodium 141 (137-145) mmol/L Potassium 4.9 (3.5-5.1) mmol/L Chloride 107 (98-107) mmol/L Carbon Dioxide 22 (22-30) mmol/L BUN 50 H (9-20) mg/dL Creatinine 2.31 H (0.66-1.25) mg/dL Glucose 80 (74-99) mg/dL Calcium 7.5 L (8.4-10.2) mg/dL Current Medications Generic Name Dose Route Start Last Admin Trade Name Freq PRN Reason Stop Dose Admin Acetaminophen 650 mg 09/01/18 00:05 09/05/18 20:15 Tylenol Tab PO 650 mg Q6HR PRN Administration Fever and/ or Pain Albuterol/Ipratropium 3 ml 09/01/18 12:00 09/06/18 12:10 Duoneb 0.5 Mg-3 Mg/3 Ml Soln INHALATION 3 ml RT-QID ANTHONY Administration Albuterol/Ipratropium 3 ml 09/02/18 01:25 09/04/18 00:54 Duoneb 0.5 Mg-3 Mg/3 Ml Soln INHALATION 3 ml RT-TID PRN Administration Shortness Of Breath Or Wheezing Amlodipine Besylate 10 mg 09/01/18 11:45 09/06/18 07:29 Norvasc PO 10 mg DAILY ANTHONY Administration Aspirin 81 mg 09/06/18 09:00 09/06/18 07:29 Aspirin PO 81 mg DAILY ANTHONY Administration Benzocaine/Menthol 1 each 09/03/18 00:00 09/04/18 01:11 Cepacol Lozenge MUCOUS MEM 1 each Q4HR PRN Administration Sore Throat Cholecalciferol 1,000 unit 09/01/18 11:45 09/06/18 07:39 Vitamin D3 (25 Mcg = 1000 Iu) PO 1,000 unit DAILY ANTHONY Administration Enoxaparin Sodium 30 mg 09/02/18 09:00 09/06/18 07:30 Lovenox SQ 30 mg DAILY ANTHONY Administration Ferrous Sulfate 325 mg 09/01/18 11:45 09/06/18 07:30 Feosol PO 325 mg DAILY ANTHONY Administration Sodium Chloride 1,000 mls @ 20 mls/hr 09/01/18 20:15 09/05/18 20:22 Saline 0.9% IV Not Given .Q24H ANTHONY Piperacillin Sod/Tazobactam 100 mls @ 25 mls/hr 09/06/18 00:00 09/06/18 07:30 Sod 3.375 gm/ Sodium Chloride IVPB 25 mls/hr Q8HR ANTHONY Administration Sodium Chloride 1,000 mls @ 50 mls/hr 09/06/18 11:45 Saline 0.9% IV .Q20H ANTHONY Ferric Sodium Gluconate 125 mg 110 mls @ 100 mls/hr 09/06/18 12:00 / Sodium Chloride IVPB 09/08/18 12:01 DAILY ANTHONY Levothyroxine Sodium 25 mcg 09/01/18 11:45 09/06/18 05:59 Synthroid PO 25 mcg DAILY@0630 ANTHONY Administration Magnesium Oxide 400 mg 09/01/18 11:45 09/06/18 07:30 Mag-Ox PO 400 mg DAILY ANTHONY Administration Metoprolol Tartrate 50 mg 09/01/18 11:45 09/06/18 07:29 Lopressor PO 50 mg BID ANTHONY Administration Pantoprazole Sodium 40 mg 09/01/18 17:30 09/06/18 07:29 Protonix PO 40 mg [id number]-[id number] ANTHONY Administration Sodium Bicarbonate 650 mg 09/06/18 21:00 Sodium Bicarbonate Tab PO BID ANTHONY Intake and Output 09/05/18 09/06/18 09/06/18 22:59 06:59 14:59 Intake Total 590 240 Output Total 300 Balance 290 240 Intake: Oral 590 240 Output: Urine 300 Other: Voiding Method Urinal Urinal # Voids 3 09/04/18 07:46 09/06/18 07:12 Assessment and Plan Assessment: Assessment #1 atypical chest discomfort. Currently the patient is chest pain-free #2 chronic kidney disease #3 pneumonia/sepsis #4 multiple comorbid conditions Plan #1 acute coronary event was ruled out #2 I will advise a conservative medical approach at this point #3 the patient currently is chest pain-free Thank you for allowing us participate in his care.
--- NOTE | 2018-09-06 13:06 | DS ---
DISCHARGE SUMMARY DATE OF ADMISSION: 08/31/2018 DATE OF DISCHARGE: 09/06/2018 FINAL DIAGNOSES: 1. Sepsis from pneumonia, suspect gram-negative organism, POA. 2. Acute urinary tract infection from cystitis, POA. 3. Chronic esophagitis. 4. PEG tube currently not being used. 5. Hypothyroid. 6. Chronic kidney disease stage III from nephrosclerosis. 7. Metabolic acidosis from chronic kidney disease. 8. Hyperkalemia from renal failure. 9. Anemia of chronic kidney disease. 10.Anemia from recent gastrointestinal blood loss. 11.Acute renal failure likely acute tubular necrosis from sepsis. HOSPITAL COURSE: This patient who was in the hospital 5 weeks ago was at that time treated for pneumonia, metabolic encephalopathy, acute respiratory failure, was on the ventilator. Also was treated for esophagitis, hyponatremia, was in septic shock, had acute tubular necrosis, GI bleed with multiple blood transfusion. No obvious source of bleeding was found. Also had a thoracentesis for pleural effusion. The patient was dysphagic, had a PEG tube. The patient is now admitted with pneumonia and UTI. Cultures were negative. Has responded well to IV Zosyn. Patient on this admission again was in ATN. The creatinine had gone up to 2.88, did come down to 2.31 by the time of discharge. The patient was seen by speech therapist, had a modified barium swallow. The patient's diet has been advanced with slight maneuvers as per Speech Therapy. The patient is not using his PEG tube anymore. The patient also had some chest pain, felt to be noncardiac. EKG and troponins were unremarkable. The patient doing well, tolerating a diet. PHYSICAL EXAMINATION: Temperature 98.3, pulse 97, respirations 16, blood pressure 114/71, pulse ox 99% on room air. GENERAL APPEARANCE: Sitting up, awake. EYES: Pupils equal, conjunctivae normal. NECK: JVD not raised. Mass not palpable. RESPIRATORY: Effort normal. LUNGS: Decreased breath sounds. CARDIOVASCULAR: First and second sounds normal, no edema. ABDOMEN: Soft, nontender. Liver and spleen not palpable. PEG tube in place. PSYCHIATRY: Alert and oriented x3. Mood and affect is normal. CONSULTATION: Dr. Keating and associates from Nephrology. Initially patient did have a CT scan of the abdomen and pelvis, with primarily chronic changes. DISCHARGE MEDICATIONS: 1. Norvasc 10 mg p.o. daily. 2. Iron 325 p.o. daily. 3. DuoNeb q.i.d. 4. Synthroid 125 mcg a day. 5. Lopressor 50 mg b.i.d. 6. Prilosec 20 mg b.i.d. 7. Tylenol 650 mg q.6. 8. Vitamin D3 one thousand units p.o. daily. 9. Vitamin D2 sixty-six thousand units p.o. every 7 days. 10.Magnesium oxide 400 mg p.o. daily. 11.Augmentin 875 one tablet p.o. q.12, ten tablets. 12.Aspirin 81 mg a day. 13. 40 mcg subcu every 7 days. 14.Sodium bicarb 650 mg b.i.d. DISPOSITION: [facility]. Follow up with Dr. Smith in the ECF. Follow up with Dr. Keating in 10 days. Diet with [facility] posturing. LABS: CBC, BMP in 5 days. MMODL / IJN: [id number] /
[2018-09-06] MEDS ORDERED: SODIUM BICARBONATE TAB 650 MG TAB PO SCH (21:00)
== END 2018-09-06 14:20 | DRG 871 ==
LOC: EC 21:03 → 4SSUR 23:17
PROVIDERS: ADMIT Hospitalist; ATTEND Hospitalist
DX: A41.50 Gram-negative sepsis, unspecified (principal); N17.0 Acute kidney failure with tubular necrosis; J15.6 Pneumonia due to other Gram-negative bacteria; N18.4 Chronic kidney disease, stage 4 (severe); E87.2 Acidosis; N30.90 Cystitis, unspecified without hematuria; E86.0 Dehydration; E87.5 Hyperkalemia; R13.10 Dysphagia, unspecified; Z93.1 Gastrostomy status; R07.89 Other chest pain; E03.9 Hypothyroidism, unspecified; I12.9 Hypertensive chronic kidney disease with stage 1 through stage 4 chronic kidney disease, or unspecified chronic kidney disease; K20.9 Esophagitis, unspecified; J38.3 Other diseases of vocal cords; D63.1 Anemia in chronic kidney disease; D50.0 Iron deficiency anemia secondary to blood loss (chronic); Z96.1 Presence of intraocular lens; Z87.891 Personal history of nicotine dependence; Z87.01 Personal history of pneumonia (recurrent); Z98.42 Cataract extraction status, left eye; Z98.41 Cataract extraction status, right eye; Z79.890 Hormone replacement therapy; Z79.899 Other long term (current) drug therapy; Z79.82 Long term (current) use of aspirin; Z80.3 Family history of malignant neoplasm of breast; Z80.8 Family history of malignant neoplasm of other organs or systems
CPT/HCPCS: 36415; 71046; 74176; 74230; 80048; 80053; 80202; 81001; 82728; 83540; 83550; 83605; 83735; 84100; 84484; 85025; 85610; 85730; 86160; 86162; 87040; 87086; 93005; 94640; 94760; 96361; 96365; 99291

== ENCOUNTER 2018-09-09 21:15 | Inpatient (IN) | payer MEDICARE, OTHER ==
--- NOTE | 2018-09-09 21:16 | ED ---
General Adult HPI - General Stated complaint: Fever Time Seen by Provider: 09/09/18 21:16 - History of Present Illness Initial comments: Twin is a 68y gentleman with extensive PMH, most significant for recent admissions for sepsis secondary to pneumonia complicated by aspiration for which he had a PEG tube placed, GI bleeding and anemia. Patient improved, was tolerating PO intake and not using PEG tube, he was discharged home on PO Augmentin for further management of penumonia. Today caregivers at the patients skilled nursing noted that he had a fever, he was given Tylenol and the fever improved however did remain mildly elevated. Given his recent history and frequent bouts of sepsis they were concerned decided to come to the ER for further evaluation. Patient denies any complaints. He reports he has been eating and drinking lately not using his PEG tube. He denies any cough or shortness of breath. - Related Data Home Medications Medication Instructions Recorded Confirmed amLODIPine BESYLATE [Norvasc] 10 mg PO DAILY 06/29/18 09/09/18 Acetaminophen Tab [Tylenol] 650 mg PO Q6H 08/31/18 09/09/18 Cholecalciferol [Vitamin D3 (25 1,000 unit PO DAILY 08/31/18 09/09/18 Mcg = 1000 Iu)] Ergocalciferol (Vitamin D2) 66,000 unit PO Q7D 08/31/18 09/09/18 [Ergocalciferol] Magnesium Oxide [Mag-Ox] 400 mg PO DAILY 08/31/18 09/09/18 Previous Rx's Medication Instructions Recorded Ferrous Sulfate [Feosol] 325 mg PO DAILY #30 tab 07/04/18 Ipratropium-Albuterol Nebulize 3 ml INHALATION RT-QID ampul.neb 07/24/18 [Duoneb 0.5 mg-3 mg/3 ml Soln] Levothyroxine Sodium [Synthroid] 25 mcg PO DAILY #1 tab 07/24/18 Metoprolol Tartrate [Lopressor] 50 mg PO BID tab 07/24/18 Omeprazole [PriLOSEC] 20 mg PO AC-BID #1 cap 07/24/18 Amoxicillin/Potassium Clav 1 tab PO Q12HR #10 tab 09/06/18 [Augmentin 875-125 Tablet] Aspirin 81 mg PO DAILY chew 09/06/18 Epoetin Von [Procrit] 4,000 unit IJ DIRECTED #1 vial 09/06/18 Sodium Bicarbonate Tab 650 mg PO BID #0 09/06/18 Allergies Allergy/AdvReac Type Severity Reaction Status Date / Time No Known Allergies Allergy Verified 09/09/18 22:14 Review of Systems ROS Statement: Those systems with pertinent positive or pertinent negative responses have been documented in the HPI. ROS Other: All systems not noted in ROS Statement are negative. Past Medical History Past Medical History: GI Bleed, Hypertension, Neurologic Disorder (difficulty swallowing), Pneumonia, Renal Disease Additional Past Medical History / Comment(s): Hx calculus of bile duct, acute cholecystitis, pancreatitis. History of Any Multi-Drug Resistant Organisms: None Reported Past Surgical History: Orthopedic Surgery Additional Past Surgical History / Comment(s): cervical surgery, bilateral cataract removal with lens implants, umbilical hernia as a baby, bile duct stent, ERCP, C3-6 plate Past Anesthesia/Blood Transfusion Reactions: No Reported Reaction Past Psychological History: No Psychological Hx Reported Smoking Status: Former smoker Past Alcohol Use History: Occasional Past Drug Use History: None Reported - Past Family History Father Family Medical History: Cancer Additional Family Medical History / Comment(s): Melanoma Mother Family Medical History: Cancer Additional Family Medical History / Comment(s): Breast cancer. General Exam - General Exam Comments Initial Comments: Physical Exam GENERAL: Chronically ill appearing HENT: Normocephalic, Atraumatic. EYES: PERRL, EOMI PULMONARY: Unlabored respirations. No audible rales rhonchi or wheezing was noted. CARDIOVASCULAR: RRR ABDOMEN: Soft and nontender with normal bowel sounds. PEG tube in place SKIN: Skin is clear with no lesions or rashes and otherwise unremarkable. : Deferred NEUROLOGIC: Patient is alert and oriented x3. Moving all extremities spontaneously MUSCULOSKELETAL: Normal extremities with adequate strength and full range of motion. No lower extremity swelling or edema. No calf tenderness. PSYCHIATRIC: Normal psychiatric evaluation Course Vital Signs 09/09/18 21:19 Temperature 100.9 F H Pulse Rate 85 Respiratory 19 Rate Blood Pressure 128/7 O2 Sat by Pulse 98 Oximetry Medical Decision Making - Medical Decision Making The patient was seen and evaluated history was obtained from the patient and review of medical record This chronically ill 68-year-old gentleman presenting from a skilled nursing with concern for sepsis patient has fever he is noted to be mildly tachycardic but has no complaints. Patient's currently being treated with Augmentin for pneumonia. A sepsis workup was initiated labs resulted with chronic anemia, leukocytosis with white count of 20, chronic kidney disease potassium is 5.3, urine is consis tent with urinary tract infection and a culture was obtained. Patient has fever tachycardia tachypnea and a source of infection sepsis was identified he was treated with Rocephin. Patient will be admitted for sepsis secondary to urinary tract infection. This plan was discussed with the patient who is agreeable. I did discuss the patient is consistent reports that he is a full code. - Lab Data Result diagrams: 09/09/18 21:30 09/09/18 21:30 Lab Results 09/09/18 09/09/18 09/09/18 Range/Units 21:30 21:30 21:30 WBC 20.9 H (3.8-10.6) k/uL RBC 3.14 L (4.30-5.90) m/uL Hgb 9.0 L (13.0-17.5) gm/dL Hct 28.9 L (39.0-53.0) % MCV 91.8 (80.0-100.0) fL MCH 28.6 (25.0-35.0) pg MCHC 31.2 (31.0-37.0) g/dL RDW 21.7 H (11.5-15.5) % Plt Count 499 H (150-450) k/uL Neutrophils % 84 % Lymphocytes % 9 % Monocytes % 4 % Eosinophils % 2 % Basophils % 0 % Neutrophils # 17.6 H (1.3-7.7) k/uL Lymphocytes # 1.9 (1.0-4.8) k/uL Monocytes # 0.8 (0-1.0) k/uL Eosinophils # 0.3 (0-0.7) k/uL Basophils # 0.1 (0-0.2) k/uL Manual Slide Review Performed Hypochromasia Marked Anisocytosis Moderate Macrocytosis Slight Target Cells Present PT (9.0-12.0) sec INR (<1.2) APTT (22.0-30.0) sec Sodium 138 (137-145) mmol/L Potassium 5.3 H (3.5-5.1) mmol/L Chloride 110 H (98-107) mmol/L Carbon Dioxide 20 L (22-30) mmol/L Anion Gap 8 mmol/L BUN 41 H (9-20) mg/dL Creatinine 2.20 H (0.66-1.25) mg/dL Est GFR (CKD-EPI)AfAm 35 (>60 ml/min/1.73 sqM) Est GFR (CKD-EPI)NonAf 30 (>60 ml/min/1.73 sqM) Glucose 99 (74-99) mg/dL Plasma Lactic Acid Fred 1.2 (0.7-2.0) mmol/L Calcium 7.6 L (8.4-10.2) mg/dL Total Bilirubin 0.2 (0.2-1.3) mg/dL AST 10 L (17-59) U/L ALT <6 L (21-72) U/L Alkaline Phosphatase 118 (38-126) U/L Total Protein 6.1 L (6.3-8.2) g/dL Albumin 2.6 L (3.5-5.0) g/dL Urine Color Urine Appearance (Clear) Urine pH (5.0-8.0) Ur Specific [place] (1.001-1.035) Urine Protein (Negative) Urine Glucose (UA) (Negative) Urine Ketones (Negative) Urine Blood (Negative) Urine Nitrite (Negative) Urine Bilirubin (Negative) Urine Urobilinogen (<2.0) mg/dL Ur Leukocyte Esterase (Negative) Urine RBC (0-5) /hpf Urine WBC (0-5) /hpf 09/09/18 09/09/18 Range/Units 21:30 21:30 WBC (3.8-10.6) k/uL RBC (4.30-5.90) m/uL Hgb (13.0-17.5) gm/dL Hct (39.0-53.0) % MCV (80.0-100.0) fL MCH (25.0-35.0) pg MCHC (31.0-37.0) g/dL RDW (11.5-15.5) % Plt Count (150-450) k/uL Neutrophils % % Lymphocytes % % Monocytes % % Eosinophils % % Basophils % % Neutrophils # (1.3-7.7) k/uL Lymphocytes # (1.0-4.8) k/uL Monocytes # (0-1.0) k/uL Eosinophils # (0-0.7) k/uL Basophils # (0-0.2) k/uL Manual Slide Review Hypochromasia Anisocytosis Macrocytosis Target Cells PT 10.9 (9.0-12.0) sec INR 1.0 (<1.2) APTT 28.4 (22.0-30.0) sec Sodium (137-145) mmol/L Potassium (3.5-5.1) mmol/L Chloride (98-107) mmol/L Carbon Dioxide (22-30) mmol/L Anion Gap mmol/L BUN (9-20) mg/dL Creatinine (0.66-1.25) mg/dL Est GFR (CKD-EPI)AfAm (>60 ml/min/1.73 sqM) Est GFR (CKD-EPI)NonAf (>60 ml/min/1.73 sqM) Glucose (74-99) mg/dL Plasma Lactic Acid Fred (0.7-2.0) mmol/L Calcium (8.4-10.2) mg/dL Total Bilirubin (0.2-1.3) mg/dL AST (17-59) U/L ALT (21-72) U/L Alkaline Phosphatase (38-126) U/L Total Protein (6.3-8.2) g/dL Albumin (3.5-5.0) g/dL Urine Color Light Yellow Urine Appearance Cloudy (Clear) Urine pH 6.5 (5.0-8.0) Ur Specific [place] 1.012 (1.001-1.035) Urine Protein 1+ H (Negative) Urine Glucose (UA) Negative (Negative) Urine Ketones Negative (Negative) Urine Blood Trace H (Negative) Urine Nitrite Negative (Negative) Urine Bilirubin Negative (Negative) Urine Urobilinogen <2.0 (<2.0) mg/dL Ur Leukocyte Esterase Large H (Negative) Urine RBC 2 (0-5) /hpf Urine WBC >182 H (0-5) /hpf Disposition Clinical Impression: Sepsis, Macrocytic anemia, UTI (urinary tract infection) Disposition: ADMITTED IP TO THIS [facility] Condition: Stable Referrals: Justice Silva MD [Primary Care Provider] - 1-2 days
[2018-09-09] MEDS ORDERED: ACETAMINOPHEN TAB 500 MG TAB PO STA (21:33)
[2018-09-09] MEDS ORDERED: IBUPROFEN 600 MG TAB PO STA (21:33)
[2018-09-09 21:55] LABS: Anisocytosis Moderate; Basophils # (A) 0.1 k/uL (0-0.2); Basophils % (A) 0 %; Eosinophils # (A) 0.3 k/uL (0-0.7); Eosinophils % (A) 2 %; HCT 28.9 % (39.0-53.0); Hypochromasia Marked; Lymphocytes # (A) 1.9 k/uL (1.0-4.8); Lymphocytes % (A) 9 %; MCH 28.6 pg (25.0-35.0); MCHC 31.2 g/dL (31.0-37.0); MCV 91.8 fL (80.0-100.0); Macrocytosis Slight; Mean Platelet Volume 7.5; Monocytes # (A) 0.8 k/uL (0-1.0); Monocytes % (A) 4 %; Neutrophils # (A) 17.6 k/uL (1.3-7.7); Neutrophils % (A) 84 %; Platelet Count 499 k/uL (150-450); RBC 3.14 m/uL (4.30-5.90); RDW 21.7 % (11.5-15.5); WBC 20.9 k/uL (3.8-10.6)
--- NOTE | 2018-09-09 22:02 | XR ---
EXAMINATION TYPE: XR chest 2V DATE OF EXAM: 09/09/2018 COMPARISON: 08/31/2018 HISTORY: Fever TECHNIQUE: Frontal and lateral views of the chest are obtained. FINDINGS: There is significant pleural thickening posteriorly in the left lower lobe. There is mild blunting of the costophrenic angles. There is mild pulmonary congestion. Heart is slightly enlarged. There are chest leads. IMPRESSION: Left lower lobe posterior pleural thickening probably increased slightly compared to las t exam. There is clearing of some right upper lobe pneumonia compared to last exam. Mild Congestion w ithout overt heart failure.
[2018-09-09 22:03] LABS: Appearance,Urine Cloudy (Clear); Bilirubin,Urine Negative (Negative); Blood,Urine Trace (Negative); Color,Urine Light Yellow; Glucose,Urine (UA) Negative (Negative); Ketones,Urine Negative (Negative); Leukocyte Esterase,Urine Large (Negative); Nitrite,Urine Negative (Negative); PH, Urine 6.5 (5.0-8.0); Protein,Urine 1+ (Negative); RBC,Urine 2 /hpf (0-5); Specific Gravity,Urine 1.012 (1.001-1.035); Urobilinogen,Urine <2.0 mg/dL (<2.0); WBC,Urine >182 /hpf (0-5)
[2018-09-09 22:04] LABS: ALT <6 U/L (21-72); AST 10 U/L (17-59); African American GFR (CKD) 35 (>60 ml/min/1.73 sqM); Albumin 2.6 g/dL (3.5-5.0); Alkaline Phosphatase 118 U/L (38-126); Anion Gap 8 mmol/L; Blood Urea Nitrogen 41 mg/dL (9-20); Calcium 7.6 mg/dL (8.4-10.2); Carbon Dioxide 20 mmol/L (22-30); Chloride 110 mmol/L (98-107); Glucose 99 mg/dL (74-99); Potassium 5.3 mmol/L (3.5-5.1); Sodium 138 mmol/L (137-145); Total Bilirubin 0.2 mg/dL (0.2-1.3); Total Protein 6.1 g/dL (6.3-8.2)
[2018-09-09] MEDS ORDERED: cefTRIAXone IN SWFI 1,000 MG/10 ML SYRINGE IVP STA (22:05)
[2018-09-09 22:10] LABS: Partial Thromboplastin Time 28.4 sec (22.0-30.0); Prothrombin Time 10.9 sec (9.0-12.0)
[2018-09-09] MEDS ORDERED: IBUPROFEN 400 MG TAB PO PRN (22:49)
[2018-09-09] MEDS ORDERED: NALOXONE 0.4 MG/ML 1 ML VIAL IV PRN (22:49)
[2018-09-09 22:52] LABS: Target Cells Present
[2018-09-10] MEDS: LEVOTHYROXINE 25 MCG TAB PO SCH (05:10)
[2018-09-10] MEDS: IPRATROPIUM-ALBUTEROL 3 ML NEB INHALATION SCH ×4 (08:03→20:44)
[2018-09-10] MEDS: ACETAMINOPHEN TAB 325 MG TAB PO PRN (09:18)
[2018-09-10] MEDS: SODIUM BICARBONATE TAB 650 MG TAB PO SCH ×2 (09:18→22:28)
[2018-09-10] MEDS: amLODIPine 10 MG TAB PO SCH (09:19)
[2018-09-10] MEDS: PANTOPRAZOLE 40 MG TABLET PO SCH (09:19)
[2018-09-10] MEDS: METOPROLOL TARTRATE 50 MG TAB PO SCH ×2 (09:19→22:28)
[2018-09-10] MEDS: ASPIRIN 81 MG PO SCH (09:19)
[2018-09-10 14:25] VITALS: BMI 18.3
--- NOTE | 2018-09-10 20:13 | HP ---
HISTORY AND PHYSICAL DATE OF ADMISSION: September 09, 2018. DATE OF SERVICE: September 10, 2018. PRESENTING COMPLAINT: Fever. HISTORY OF PRESENTING COMPLAINT: This is a pleasant 68-year-old patient who was discharged from the hospital on September 06, 2018 to [facility]. The patient in the hospital about 6 to 7 weeks ago and had a rather protracted course in the hospital and was at that time treated for pneumonia, metabolic encephalopathy, acute respiratory failure also was on the ventilator. That admission also was found to have esophagitis, hypernatremia, was in septic shock, also had acute tubular necrosis. Also had a GI bleed with multiple blood transfusions. No obvious source of bleeding was found. The patient also found to have a pleural effusion and thoracentesis carried out. The patient was dysphagic and was placed on the PEG tube. Last admission patient was seen again by the speech therapist at least on 2 or 3 occasions and okayed to proceed with oral feeding. PEG tube had to be held, last admission when patient was discharged on 09/06/2018, the patient was found to have both acute urinary tract infection with cystitis and sepsis from pneumonia. The patient was discharged on Augmentin, was doing well. The patient now presents through the ER. The patient developed a fever there. The patient denies any urinary symptoms. Has occasional cough which is no different than before. He has been tolerating his diet okay and actually overall patient feels better. The patient, on presentation, had a fever of 100.9 and had an elevated white count from the last admission. REVIEW OF SYSTEMS: CONSTITUTIONAL: Febrile. HEENT: None. RESPIRATORY: Occasional cough. GASTROINTESTINAL none. GENITOURINARY: None. DERMATOLOGICAL: None. HEMATOLOGICAL: None. LYMPHATIC: None. PSYCHIATRY: Occasionally anxious. NEUROLOGICAL none. PAST MEDICAL HISTORY: Past medical history, pneumonia, UTI, esophagitis, hypothyroid, chronic kidney disease stage 4, normocytic anemia. PAST SURGICAL HISTORY: Cervical surgery, bilateral cataract removal with lens implant, umbilical hernia, PEG tube placed, biliary stent. SOCIAL HISTORY: The patient was drinking a fifth of whiskey in the past but did cut back the last few years. Also was a smoker up until recently. Currently at [facility]. HOME MEDICATIONS: 1. Norvasc 10 mg p.o. daily. 2. Sodium bicarb 650 mg b.i.d. 3. Prilosec 20 mg p.o. b.i.d. 4. Lopressor 50 mg b.i.d. 5. Magnesium oxide 400 mg p.o. daily. 6. Synthroid 25 mcg a day. 7. DuoNeb q.i.d. 8. Iron 325 p.o. daily. 9. Vitamin D2 66,000 p.o. every 7 days. 10.Procrit 4000 units IV as directed. 11.Vitamin D3 1000 units p.o. daily. 12.Aspirin 81 mg p.o. daily. 13.Augmentin 875 1 tablet p.o. q.12h. 14.Tylenol 650 mg q.6h. ALLERGIES: None. PHYSICAL EXAMINATION: VITAL SIGNS: Vital signs on presentation: Temperature 100.9, pulse 85, respiratory rate 19, blood pressure 128/68. Pulse ox 98% on room air. GENERAL APPEARANCE: Average built. BMI 18. Sitting up, appears comfortable. EYES: Pupils equal. Conjunctivae normal. HEENT: External appearance of nose and ears normal. Oral cavity normal. NECK: JVD not raised. Mass not palpable. RESPIRATORY effort normal. LUNGS decreased breath sounds. CARDIOVASCULAR 1st and 2nd sounds normal. No edema. ABDOMEN: Soft, nontender. Liver and spleen not palpable. PEG tubed placed. LYMPHATIC: No lymph nodes palpable in the neck and axilla. PSYCHIATRY: Alert and oriented x3. Mood and affect normal. NEUROLOGICAL: Pupils equal. Cranial nerves grossly intact. Power and sensation grossly intact. INVESTIGATIONS: White count 20.9, hemoglobin 9, platelets 499. Potassium 5.3, BUN 41, creatinine 0.20, albumin 2.6. UA positive for leukocyte esterase, WBC. The patient's labs from last admission showed a white count of 14.8, hemoglobin of 9, BUN 50, creatinine 2.31. Chest x-ray film personally reviewed by me shows chest x-ray on the posterior aspect shows increased more pleural thickening. The infiltrate is somewhat actually improved. ASSESSMENT: 1. This is a patient who was just diagnosed with hospice 3 years ago, was treated for pneumonia and acute urinary tract infection from cystitis, now presented with a fever. The patient has no new really respiratory symptoms and also does not have any urinary symptoms except for some frequency and does have elevated white count. 2. Chronic esophagitis. 3. PEG tube not being used. 4. Hypothyroid. 5. Chronic kidney disease stage 3 from nephrosclerosis. 6. Hyperkalemia from renal failure. 7. Anemia of chronic kidney disease. 8. Anemia from recent gastrointestinal blood loss. PLAN: Home medications will be resumed. The patient has not demonstrated any obvious manifestations of aspiration. We will continue with Augmentin. We will get input from Infectious Disease, Dr. Cisneros. Care was discussed with the patient. Copy to Dr. Silva. MMAMANUELL / HARPERN: [id number] /
[2018-09-10] MEDS: AMOXIC-POT CLAV 500-125 MG 1 EACH TAB PO SCH (22:28)
[2018-09-11] MEDS: IPRATROPIUM-ALBUTEROL 3 ML NEB INHALATION SCH ×4 (08:19→19:45)
[2018-09-11] MEDS: FERROUS SULFATE 325 MG TAB PO SCH (08:59)
[2018-09-11] MEDS: PANTOPRAZOLE 40 MG TABLET PO SCH (08:59)
[2018-09-11] MEDS: MAGNESIUM OXIDE 400 MG TAB PO SCH (08:59)
[2018-09-11] MEDS: ASPIRIN 81 MG PO SCH (09:00)
[2018-09-11] MEDS: LEVOTHYROXINE 25 MCG TAB PO SCH (09:00)
[2018-09-11] MEDS: AMOXIC-POT CLAV 500-125 MG 1 EACH TAB PO SCH ×2 (09:00→21:34)
[2018-09-11] MEDS: METOPROLOL TARTRATE 50 MG TAB PO SCH ×2 (09:00→21:33)
[2018-09-11] MEDS: SODIUM BICARBONATE TAB 650 MG TAB PO SCH ×2 (09:04→21:34)
[2018-09-11] MEDS: amLODIPine 10 MG TAB PO SCH (09:04)
[2018-09-11 11:18] LABS: Anisocytosis Moderate; Basophils % (A) 0 %; Eosinophils # (A) 0.2 k/uL (0-0.7); Eosinophils % (A) 1 %; HCT 27.6 % (39.0-53.0); HGB 8.2 gm/dL (13.0-17.5); Hypochromasia Marked; Lymphocytes # (A) 1.4 k/uL (1.0-4.8); Lymphocytes % (A) 8 %; MCHC 29.9 g/dL (31.0-37.0); MCV 93.7 fL (80.0-100.0); Macrocytosis Slight; Mean Platelet Volume 7.4; Monocytes # (A) 0.7 k/uL (0-1.0); Monocytes % (A) 4 %; Neutrophils # (A) 16.2 k/uL (1.3-7.7); Neutrophils % (A) 87 %; Platelet Count 542 k/uL (150-450); RBC 2.94 m/uL (4.30-5.90); RDW 21.1 % (11.5-15.5); WBC 18.7 k/uL (3.8-10.6)
[2018-09-11 11:38] LABS: Calcium 8.2 mg/dL (8.4-10.2); Potassium 5.6 mmol/L (3.5-5.1)
[2018-09-11] MEDS: ACETAMINOPHEN TAB 325 MG TAB PO PRN (21:39)
[2018-09-11] MEDS ORDERED: SODIUM POLYSTYRENE SULFONATE 15 GM/60 ML BOTTLE PO STA (23:05)
--- NOTE | 2018-09-11 23:57 | P.CONS ---
History of Present Illness - Reason for Consult Consult date: 09/11/18 - Chief Complaint Weakness - History of Present Illness 68-year-old male that has multiple medical troubles that includes alcoholism, COPD and a history of pancreatitis. The patient required ERCP with pancreatic duct stenting after a recent illness. The patient was recently hospitalized at which point in time he is taking pneumonia with respiratory failure requiring intubation sedation and mechanical ventilation. Eventually improved and did get transferred to rehabilitation. He now presents with significant weakness in his mood with concerns to pneumonia and urinary infection. Patient remains a poor historian but does relate he feels poorly. Review of Systems ROS unobtainable: due to mental status Past Medical History Past Medical History: GI Bleed, Hypertension, Neurologic Disorder, Pneumonia, Renal Disease Additional Past Medical History / Comment(s): Hx calculus of bile duct, acute cholecystitis, pancreatitis. History of Any Multi-Drug Resistant Organisms: None Reported Past Surgical History: Orthopedic Surgery Additional Past Surgical History / Comment(s): cervical surgery, bilateral cataract removal with lens implants, umbilical hernia as a baby, bile duct stent, ERCP, C3-6 plate Past Anesthesia/Blood Transfusion Reactions: No Reported Reaction Past Psychological History: No Psychological Hx Reported Additional Psychological History / Comment(s): Pt resides alone in a mobile home with 3 steps that lately have been difficult for him to navigate. He ambulates with a cane or walker. He does drives. He has helpful neighbors. Smoking Status: Former smoker Past Alcohol Use History: Occasional Additional Past Alcohol Use History / Comment(s): Started smoking at age 27, smokes about a ppd. Pt states in the past he drank a fifth of whiskey a day but in 2013 cut back to a drink a day and a few drinks on weekends. He drinks beer or vodka now. Past Drug Use History: None Reported - Past Family History Father Family Medical History: Cancer Additional Family Medical History / Comment(s): Melanoma Mother Family Medical History: Cancer Additional Family Medical History / Comment(s): Breast cancer. Medications and Allergies Home Medications and Allergies Comment(s): Current Medications Acetaminophen (Tylenol Tab) 650 mg PO Q6HR PRN PRN Reason: Mild Pain or Fever > 100.5 Last Admin: 09/11/18 21:39 Dose: 650 mg Documented by: Albuterol/Ipratropium (Duoneb 0.5 Mg-3 Mg/3 Ml Soln) 3 ml INHALATION RT-QID [facility] Last Admin: 09/11/18 19:45 Dose: 3 ml Documented by: Amlodipine Besylate (Norvasc) 10 mg PO DAILY [facility] Last Admin: 09/11/18 09:04 Dose: 10 mg Documented by: Aspirin (Aspirin) 81 mg PO DAILY [facility] Last Admin: 09/11/18 09:00 Dose: 81 mg Documented by: Ferrous Sulfate (Feosol) 325 mg PO DAILY [facility] Last Admin: 09/11/18 08:59 Dose: 325 mg Documented by: Ceftriaxone Sodium 1 gm/ (Sodium Chloride) 50 mls @ 100 mls/hr IVPB Q24H [facility] Sodium Chloride (Saline 0.9%) 1,000 mls @ 100 mls/hr IV .Q10H [facility] Levothyroxine Sodium (Synthroid) 25 mcg PO DAILY@0630 [facility] Last Admin: 09/11/18 09:00 Dose: 25 mcg Documented by: Magnesium Oxide (Mag-Ox) 400 mg PO DAILY [facility] Last Admin: 09/11/18 08:59 Dose: 400 mg Documented by: Metoprolol Tartrate (Lopressor) 50 mg PO BID [facility] Last Admin: 09/11/18 21:33 Dose: 50 mg Documented by: Naloxone HCl (Narcan) 0.2 mg IV Q2M PRN PRN Reason: Opioid Reversal Pantoprazole Sodium (Protonix) 40 mg PO DAILY@0730 [facility] Last Admin: 09/11/18 08:59 Dose: 40 mg Documented by: Sodium Bicarbonate (Sodium Bicarbonate Tab) 650 mg PO BID [facility] Last Admin: 09/11/18 21:34 Dose: Not Given Documented by: Home Medications Medication Instructions Recorded Confirmed Type amLODIPine BESYLATE [Norvasc] 10 mg PO DAILY 06/29/18 09/09/18 History Ferrous Sulfate [Feosol] 325 mg PO DAILY #30 tab 07/04/18 09/09/18 Rx Ipratropium-Albuterol Nebulize 3 ml INHALATION RT-QID ampul.neb 07/24/18 09/09/18 Rx [Duoneb 0.5 mg-3 mg/3 ml Soln] Levothyroxine Sodium [Synthroid] 25 mcg PO DAILY #1 tab 07/24/18 09/09/18 Rx Metoprolol Tartrate [Lopressor] 50 mg PO BID tab 07/24/18 09/09/18 Rx Omeprazole [PriLOSEC] 20 mg PO AC-BID #1 cap 07/24/18 09/09/18 Rx Acetaminophen Tab [Tylenol] 650 mg PO Q6H 08/31/18 09/09/18 History Cholecalciferol [Vitamin D3 (25 1,000 unit PO DAILY 08/31/18 09/09/18 History Mcg = 1000 Iu)] Ergocalciferol (Vitamin D2) 66,000 unit PO Q7D 08/31/18 09/09/18 History [Ergocalciferol] Magnesium Oxide [Mag-Ox] 400 mg PO DAILY 08/31/18 09/09/18 History Amoxicillin/Potassium Clav 1 tab PO Q12HR #10 tab 09/06/18 09/09/18 Rx [Augmentin 875-125 Tablet] Aspirin 81 mg PO DAILY chew 09/06/18 09/09/18 Rx Epoetin Von [Procrit] 4,000 unit IJ DIRECTED #1 vial 09/06/18 09/09/18 Rx Sodium Bicarbonate Tab 650 mg PO BID #0 09/06/18 09/09/18 Rx Allergies Allergy/AdvReac Type Severity Reaction Status Date / Time No Known Allergies Allergy Verified 09/09/18 22:14 Physical Exam Vitals: Vital Signs Temp Pulse Pulse Resp BP Pulse Ox 09/11/18 19:55 84 09/11/18 19:45 82 09/11/18 19:28 98.5 F 87 18 123/67 98 09/11/18 15:48 86 09/11/18 15:37 84 09/11/18 15:00 98.4 F 83 12 128/66 99 09/11/18 11:24 82 09/11/18 11:07 82 09/11/18 08:32 86 09/11/18 08:21 90 09/11/18 07:00 99.3 F 91 12 125/62 97 09/11/18 02:00 99.0 F 85 18 133/71 96 Intake and Output 09/11/18 09/11/18 09/12/18 14:59 22:59 06:59 Output Total 500 300 Balance -500 -300 Output: Urine 500 300 Other: # Voids 275 # Bowel Movements 1 Elderly gentleman not currently in distress, not with significant shortness of breath as during his last stay. As stated in generalized weakness HEENT: Anicteric conjunctiva are pink and moist nasal mucosa grossly intact without significant lesions, there is no thrush. Neck: The neck is supple without significant lymphadenopathy or thyromegaly. Lungs: Symmetrical air entry with expiratory wheezes no howard bronchial sounds Heart: Irregular with a positive S4. No murmur click or rub Abdomen: Positive bowel sounds soft and nontender without palpable masses or organomegaly. There was no guarding or rebound. Extremities: The upper extremities have excellent pulses they are symmetric, no significant petechiae or telangiectasia. No splinter hemorrhages were noted. The lower extremities are free from significant edema. The peripheral pulses were 2+ and symmetric. Neuro: The patient is awake and alert he is able to answer a few questions only he is not very cooperative at this time. Results CBC & Chem 7: 09/11/18 10:42 09/11/18 10:42 Labs: Abnormal Lab Results - Last 24 Hours (Table) 09/11/18 09/11/18 Range/Units 10:42 10:42 WBC 18.7 H (3.8-10.6) k/uL RBC 2.94 L (4.30-5.90) m/uL Hgb 8.2 L (13.0-17.5) gm/dL Hct 27.6 L (39.0-53.0) % MCHC 29.9 L (31.0-37.0) g/dL RDW 21.1 H (11.5-15.5) % Plt Count 542 H (150-450) k/uL Neutrophils # 16.2 H (1.3-7.7) k/uL Potassium 5.6 H (3.5-5.1) mmol/L Chloride 110 H (98-107) mmol/L Carbon Dioxide 18 L (22-30) mmol/L BUN 35 H (9-20) mg/dL Creatinine 2.26 H (0.66-1.25) mg/dL Glucose 118 H (74-99) mg/dL Calcium 8.2 L (8.4-10.2) mg/dL Microbiology - Last 24 Hours (Table) 09/09/18 21:30 Urine Culture - Final Urine,Voided 09/09/18 22:40 Blood Culture - Preliminary Blood No Growth after 24 hours Laboratory Results WBC 18.7 k/uL (3.8-10.6) H 09/11/18 10:42 RBC 2.94 m/uL (4.30-5.90) L 09/11/18 10:42 Hgb 8.2 gm/dL (13.0-17.5) L 09/11/18 10:42 Hct 27.6 % (39.0-53.0) L 09/11/18 10:42 MCV 93.7 fL (80.0-100.0) 09/11/18 10:42 MCH 28.0 pg (25.0-35.0) 09/11/18 10:42 MCHC 29.9 g/dL (31.0-37.0) L 09/11/18 10:42 RDW 21.1 % (11.5-15.5) H 09/11/18 10:42 Plt Count 542 k/uL (150-450) H 09/11/18 10:42 Neutrophils % 87 % 09/11/18 10:42 Lymphocytes % 8 % 09/11/18 10:42 Monocytes % 4 % 09/11/18 10:42 Eosinophils % 1 % 09/11/18 10:42 Basophils % 0 % 09/11/18 10:42 Neutrophils # 16.2 k/uL (1.3-7.7) H 09/11/18 10:42 Lymphocytes # 1.4 k/uL (1.0-4.8) 09/11/18 10:42 Monocytes # 0.7 k/uL (0-1.0) 09/11/18 10:42 Eosinophils # 0.2 k/uL (0-0.7) 09/11/18 10:42 Basophils # 0.0 k/uL (0-0.2) 09/11/18 10:42 Manual Slide Review Performed 09/09/18 21:30 Hypochromasia Marked 09/11/18 10:42 Anisocytosis Moderate 09/11/18 10:42 Macrocytosis Slight 09/11/18 10:42 Target Cells Present 09/09/18 21:30 PT 10.9 sec (9.0-12.0) 09/09/18 21:30 INR 1.0 (<1.2) 09/09/18 21:30 APTT 28.4 sec (22.0-30.0) 09/09/18 21:30 Sodium 137 mmol/L (137-145) 09/11/18 10:42 Potassium 5.6 mmol/L (3.5-5.1) H 09/11/18 10:42 Chloride 110 mmol/L (98-107) H 09/11/18 10:42 Carbon Dioxide 18 mmol/L (22-30) L 09/11/18 10:42 Anion Gap 9 mmol/L 09/11/18 10:42 BUN 35 mg/dL (9-20) H 09/11/18 10:42 Creatinine 2.26 mg/dL (0.66-1.25) H 09/11/18 10:42 Est GFR (CKD-EPI)AfAm 34 (>60 ml/min/1.73 sqM) 09/11/18 10:42 Est GFR (CKD-EPI)NonAf 29 (>60 ml/min/1.73 sqM) 09/11/18 10:42 Glucose 118 mg/dL (74-99) H 09/11/18 10:42 Plasma Lactic Acid Fred 1.2 mmol/L (0.7-2.0) 09/09/18 21:30 Calcium 8.2 mg/dL (8.4-10.2) L 09/11/18 10:42 Total Bilirubin 0.2 mg/dL (0.2-1.3) 09/09/18 21:30 AST 10 U/L (17-59) L 09/09/18 21:30 ALT <6 U/L (21-72) L 09/09/18 21:30 Alkaline Phosphatase 118 U/L (38-126) 09/09/18 21:30 Total Protein 6.1 g/dL (6.3-8.2) L 09/09/18 21:30 Albumin 2.6 g/dL (3.5-5.0) L 09/09/18 21:30 Urine Color Light Yellow 09/09/18 21:30 Urine Appearance Cloudy (Clear) 09/09/18 21:30 Urine pH 6.5 (5.0-8.0) 09/09/18 21:30 Ur Specific [place] 1.012 (1.001-1.035) 09/09/18 21:30 Urine Protein 1+ (Negative) H 09/09/18 21:30 Urine Glucose (UA) Negative (Negative) 09/09/18 21:30 Urine Ketones Negative (Negative) 09/09/18 21:30 Urine Blood Trace (Negative) H 09/09/18 21:30 Urine Nitrite Negative (Negative) 09/09/18 21:30 Urine Bilirubin Negative (Negative) 09/09/18 21:30 Urine Urobilinogen <2.0 mg/dL (<2.0) 09/09/18 21:30 Ur Leukocyte Esterase Large (Negative) H 09/09/18 21:30 Urine RBC 2 /hpf (0-5) 09/09/18 21:30 Urine WBC >182 /hpf (0-5) H 09/09/18 21:30 Microbiology Entire Visit 09/09/18 21:30 Urine,Voided Urine Culture - Final 09/09/18 22:40 Blood Blood Culture - Preliminary No Growth after 24 hours Chest x-ray: report reviewed (Without acute interval change) Assessment and Plan (1) UTI (urinary tract infection) Narrative/Plan: Dljal-fix-mmsg-old male but has multiple medical troubles presents back to Hospital from extended care with increasing weakness and concerns of sepsis. Patient's urinalysis is markedly abnormal. Culture is pending blood cultures are pending. Given his history ceftriaxone was utilized for treatment of prior MSSA and other urinary pathogens. This is extremity without evidence of new infiltrate actually in the left-sided infiltrate is improving. For now, pending supportive care at this point in time. Discharge plan will be challenging cultures to be monitored and course of antibiotic therapy will be elucidated as cultures become available. Current Visit: Yes Status: Acute Code(s): N39.0 - URINARY TRACT INFECTION, SITE NOT SPECIFIED SNOMED Code(s): 03811556 (2) Fever Current Visit: No Status: Acute Code(s): R50.9 - FEVER, UNSPECIFIED SNOMED Code(s): 817171768
[2018-09-12] MEDS: SODIUM CHLORIDE 0.9% 1,000 ML IV SCH ×3 (00:43→21:19)
[2018-09-12] MEDS: LEVOTHYROXINE 25 MCG TAB PO SCH (05:56)
[2018-09-12] MEDS: ACETAMINOPHEN TAB 325 MG TAB PO PRN ×3 (06:03→21:17)
--- NOTE | 2018-09-12 06:56 | PN ---
PROGRESS NOTE DATE OF SERVICE: 09/11/2018 PRESENTING COMPLAINT: Fever. INTERVAL HISTORY: Patient has multiple medical problems presented with fever, felt to be from UTI and cystitis, recently treated for the same. Patient's symptoms are minimal. Overall feeling better. Tolerating a diet. Sitting up in a chair. REVIEW OF SYSTEMS: Done for constitutional, cardiovascular, GI, pulmonary; relevant findings as above. CURRENT MEDICATIONS: Current medications are reviewed that include ceftriaxone. PHYSICAL EXAMINATION: On examination, afebrile, pulse 91, respiration 12, blood pressure 125/62, pulse ox 97% on room air. GENERAL APPEARANCE: Sitting up in a chair, comfortable. EYES: Pupils equal. Conjunctivae normal. NECK: JVD not raised. Mass not palpable. RESPIRATORY: Effort normal. LUNGS: Decreased breath sounds. CARDIOVASCULAR: First and second sounds normal. No edema. ABDOMEN: Soft, nontender. Liver and spleen not palpable. PEG tube placed. PSYCHIATRY: Alert and oriented x3. Mood and affect normal. INVESTIGATIONS: White count 8.7, potassium 5.6, BUN 35, creatinine 2.26. Urine culture negative. ASSESSMENT: 1. Acute urinary tract infection with sepsis. 2. Chronic esophagitis. 3. PEG tube, not being used. 4. Hypothyroid. 5. Chronic kidney disease stage 3 from nephrosclerosis. 6. Hyperkalemia from renal failure. 7. Anemia of chronic kidney disease. 8. Anemia from recent gastrointestinal blood loss. PLAN: Continue with IV ceftriaxone. Give another dose of Kayexalate. Give IV fluids. Will DC the Motrin. MMODL / IJN: [id number] /
[2018-09-12] MEDS: IPRATROPIUM-ALBUTEROL 3 ML NEB INHALATION SCH ×4 (07:22→20:52)
[2018-09-12 08:53] LABS: Calcium 8.1 mg/dL (8.4-10.2); Potassium 5.4 mmol/L (3.5-5.1)
[2018-09-12 09:11] LABS: Anisocytosis Slight; Basophils % (A) 0 %; Eosinophils # (A) 0.3 k/uL (0-0.7); Eosinophils % (A) 2 %; HCT 27.2 % (39.0-53.0); HGB 7.9 gm/dL (13.0-17.5); Hypochromasia Moderate; Lymphocytes # (A) 1.7 k/uL (1.0-4.8); Lymphocytes % (A) 11 %; MCH 26.6 pg (25.0-35.0); MCHC 29.1 g/dL (31.0-37.0); MCV 91.6 fL (80.0-100.0); Mean Platelet Volume 7.6; Monocytes # (A) 0.9 k/uL (0-1.0); Monocytes % (A) 6 %; Neutrophils # (A) 12.2 k/uL (1.3-7.7); Neutrophils % (A) 80 %; Platelet Count 572 k/uL (150-450); RBC 2.97 m/uL (4.30-5.90); RDW 18.4 % (11.5-15.5); WBC 15.3 k/uL (3.8-10.6)
[2018-09-12] MEDS: MAGNESIUM OXIDE 400 MG TAB PO SCH (09:44)
[2018-09-12] MEDS: METOPROLOL TARTRATE 50 MG TAB PO SCH ×2 (09:44→21:17)
[2018-09-12] MEDS: ASPIRIN 81 MG PO SCH (09:44)
[2018-09-12] MEDS: SODIUM BICARBONATE TAB 650 MG TAB PO SCH ×2 (09:44→21:17)
[2018-09-12] MEDS: FERROUS SULFATE 325 MG TAB PO SCH (09:44)
[2018-09-12] MEDS: amLODIPine 10 MG TAB PO SCH (09:44)
[2018-09-12] MEDS: PANTOPRAZOLE 40 MG TABLET PO SCH (09:45)
[2018-09-12] MEDS ORDERED: SODIUM POLYSTYRENE SULFONATE 15 GM/60 ML BOTTLE PO STA (10:28)
--- NOTE | 2018-09-12 23:54 | PN ---
PROGRESS NOTE DATE OF SERVICE: September 12, 2018 PRESENT COMPLAINT: Fever. INTERVAL HISTORY: Patient has multiple medical problems presented with fever, felt to be from urinary tract infection and cystitis. The patient's only symptoms of urinary frequency. Otherwise, tolerating a diet. Sitting up. No new issues. Cultures are pending. REVIEW OF SYSTEMS: For constitutional, vascular, GI, pulmonary and relevant findings as above. CURRENT MEDICATIONS: Reviewed that include IV ceftriaxone, IV fluids. PHYSICAL EXAMINATION: VITAL SIGNS: Temperature 98.3, pulse 85, respirations 16, blood pressure 130/72, pulse ox 98% on room air. GENERAL: The patient was sitting up in a chair, awake, comfortable EYES: Pupils equal. Conjunctivae normal. NECK: JVD not raised. Mass not palpable. RESPIRATORY: Effort normal. LUNGS: Decreased breath sounds CARDIOVASCULAR: 1st and 2nd sounds normal. No edema. ABDOMEN: Soft, nontender. Liver and spleen not palpable. PEG tube in place. PSYCHIATRY alert x3. Mood and affect normal. INVESTIGATIONS: White count 15.3, hemoglobin 7.9, platelets 572. Potassium 5.4, BUN 35, creatinine 2.34. ASSESSMENT: 1. Acute urinary tract infection with sepsis, pending culture. 2. Chronic esophagitis. 3. PEG tube not being used. 4. Hypothyroid. 5. Chronic kidney disease stage 3 from nephrosclerosis. 6. Hyperkalemia from renal failure. 7. Anemia of chronic kidney disease. 8. Anemia. Also from recent gastrointestinal blood loss type unknown. PLAN: Continue with IV antibiotics. Follow with ID and will stop the IV fluids later tonight. The patient was put on a low-potassium diet. Kayexalate was given will give another Kayexalate in the morning. MMODL / IJN: [id number] /
[2018-09-13] MEDS: IPRATROPIUM-ALBUTEROL 3 ML NEB INHALATION SCH ×4 (07:16→20:05)
[2018-09-13] MEDS: SODIUM CHLORIDE 0.9% 1,000 ML IV SCH ×2 (08:12→21:34)
[2018-09-13] MEDS: PANTOPRAZOLE 40 MG TABLET PO SCH (08:13)
[2018-09-13] MEDS: FERROUS SULFATE 325 MG TAB PO SCH (08:13)
[2018-09-13] MEDS: LEVOTHYROXINE 25 MCG TAB PO SCH (08:13)
[2018-09-13] MEDS: METOPROLOL TARTRATE 50 MG TAB PO SCH ×2 (08:13→21:32)
[2018-09-13] MEDS: ASPIRIN 81 MG PO SCH (08:13)
[2018-09-13] MEDS: MAGNESIUM OXIDE 400 MG TAB PO SCH (08:13)
[2018-09-13] MEDS: SODIUM POLYSTYRENE SULFONATE 15 GM/60 ML BOTTLE PO SCH (08:14)
[2018-09-13] MEDS: amLODIPine 10 MG TAB PO SCH (08:14)
[2018-09-13] MEDS: ACETAMINOPHEN TAB 325 MG TAB PO PRN ×2 (08:20→21:32)
[2018-09-13 09:33] LABS: Anisocytosis Moderate; Basophils # (A) 0.1 k/uL (0-0.2); Basophils % (A) 0 %; Eosinophils # (A) 0.3 k/uL (0-0.7); Eosinophils % (A) 2 %; HCT 26.3 % (39.0-53.0); HGB 8.1 gm/dL (13.0-17.5); Hypochromasia Marked; Lymphocytes # (A) 1.5 k/uL (1.0-4.8); Lymphocytes % (A) 10 %; MCH 29.2 pg (25.0-35.0); MCHC 30.7 g/dL (31.0-37.0); Macrocytosis Slight; Mean Platelet Volume 6.9; Monocytes # (A) 0.6 k/uL (0-1.0); Monocytes % (A) 4 %; Neutrophils # (A) 13.1 k/uL (1.3-7.7); Neutrophils % (A) 84 %; Platelet Count 594 k/uL (150-450); RBC 2.77 m/uL (4.30-5.90); RDW 21.1 % (11.5-15.5); WBC 15.7 k/uL (3.8-10.6)
[2018-09-13 09:45] LABS: Potassium 4.6 mmol/L (3.5-5.1)
[2018-09-13] MEDS: SODIUM BICARBONATE TAB 650 MG TAB PO SCH ×2 (11:11→21:33)
[2018-09-14] MEDS: SODIUM CHLORIDE 0.9% 1,000 ML IV SCH ×2 (02:37→12:31)
[2018-09-14] MEDS: LEVOTHYROXINE 25 MCG TAB PO SCH (06:51)
[2018-09-14 07:44] VITALS: RESP 14
[2018-09-14] MEDS: ACETAMINOPHEN TAB 325 MG TAB PO PRN (07:53)
[2018-09-14] MEDS: amLODIPine 10 MG TAB PO SCH (07:55)
[2018-09-14] MEDS: FERROUS SULFATE 325 MG TAB PO SCH (07:55)
[2018-09-14] MEDS: PANTOPRAZOLE 40 MG TABLET PO SCH (07:55)
[2018-09-14] MEDS: ASPIRIN 81 MG PO SCH (07:56)
[2018-09-14] MEDS: MAGNESIUM OXIDE 400 MG TAB PO SCH (07:56)
[2018-09-14] MEDS: METOPROLOL TARTRATE 50 MG TAB PO SCH (07:56)
[2018-09-14] MEDS: SODIUM BICARBONATE TAB 650 MG TAB PO SCH (07:57)
[2018-09-14] MEDS: IPRATROPIUM-ALBUTEROL 3 ML NEB INHALATION SCH ×2 (08:04→11:26)
[2018-09-14 08:43] LABS: Anisocytosis Moderate; Basophils # (A) 0.1 k/uL (0-0.2); Basophils % (A) 0 %; Eosinophils # (A) 0.4 k/uL (0-0.7); Eosinophils % (A) 3 %; HCT 28.3 % (39.0-53.0); HGB 8.5 gm/dL (13.0-17.5); Hypochromasia Marked; Lymphocytes # (A) 1.7 k/uL (1.0-4.8); Lymphocytes % (A) 12 %; MCHC 30.1 g/dL (31.0-37.0); Macrocytosis Slight; Mean Platelet Volume 7.3; Monocytes # (A) 0.6 k/uL (0-1.0); Monocytes % (A) 4 %; Neutrophils # (A) 11.4 k/uL (1.3-7.7); Neutrophils % (A) 80 %; Platelet Count 626 k/uL (150-450); RBC 3.04 m/uL (4.30-5.90); RDW 20.6 % (11.5-15.5); WBC 14.3 k/uL (3.8-10.6)
[2018-09-14 09:02] LABS: Calcium 8.3 mg/dL (8.4-10.2); Potassium 4.9 mmol/L (3.5-5.1)
[2018-09-14] MEDS: SODIUM POLYSTYRENE SULFONATE 15 GM/60 ML BOTTLE PO SCH (12:31)
[2018-09-14 13:55] VITALS: BP 121/67; PULSE 78; TEMP 97.8
== END 2018-09-14 15:01 | DRG 871 ==
LOC: EC 21:15 → OBSVTOIN 22:55 → 4SSUR 22:55
PROVIDERS: ADMIT Hospitalist; ATTEND Hospitalist
DX: A41.9 Sepsis, unspecified organism (principal); J18.9 Pneumonia, unspecified organism; E87.5 Hyperkalemia; J44.9 Chronic obstructive pulmonary disease, unspecified; Z93.1 Gastrostomy status; R13.10 Dysphagia, unspecified; N18.3 Chronic kidney disease, stage 3 (moderate); N30.90 Cystitis, unspecified without hematuria; E03.9 Hypothyroidism, unspecified; I12.9 Hypertensive chronic kidney disease with stage 1 through stage 4 chronic kidney disease, or unspecified chronic kidney disease; D63.1 Anemia in chronic kidney disease; D50.0 Iron deficiency anemia secondary to blood loss (chronic); K20.9 Esophagitis, unspecified; F10.20 Alcohol dependence, uncomplicated; Z79.82 Long term (current) use of aspirin; Z79.890 Hormone replacement therapy; Z79.899 Other long term (current) drug therapy; Z87.891 Personal history of nicotine dependence; Z87.19 Personal history of other diseases of the digestive system; Z87.01 Personal history of pneumonia (recurrent); Z86.19 Personal history of other infectious and parasitic diseases; Z96.1 Presence of intraocular lens; Z98.41 Cataract extraction status, right eye; Z98.42 Cataract extraction status, left eye; Z80.8 Family history of malignant neoplasm of other organs or systems; Z80.3 Family history of malignant neoplasm of breast
CPT/HCPCS: 36415; 71046; 80048; 80053; 81001; 83605; 85025; 85610; 85730; 87040; 87086; 93005; 94640; 96374; 99285

== ENCOUNTER 2018-10-06 16:41 | Inpatient (IN) | payer MEDICARE, OTHER ==
[2018-10-06] MEDS ORDERED: SODIUM CHLORIDE 0.9% 1,000 ML IV STA ×3 (16:58→18:15)
--- NOTE | 2018-10-06 16:59 | ED ---
Fall HPI - General Chief Complaint: Fall Stated Complaint: Fall Time Seen by Provider: 10/06/18 16:57 Source: patient, EMS, RN notes reviewed, old records reviewed Mode of arrival: EMS Limitations: altered mental status - History of Present Illness Initial Comments: This is a 68-year-old male the ER for evaluation. Patient's a poor strain secondary to decreased level responsiveness. Patient was found down. Per EMS is been going on for greater than 24 hours since his discharge from [facility] yesterday. Patient unable to give any history as far as his symptoms. MD Complaint: fall, other (Weakness) -: days(s) (1) Fall From: standing When Fall Occurred: 24 hours [employer] Fall Witnessed: yes, by family Place Fall Occurred: home Loss of Consciousness: none Prolonged Down Time?: no Symptoms Prior to Fall: none Severity: moderate Severity scale (1-10): 2 Context: tripped/slipped, history of frequent falls Associated Symptoms: denies - Related Data Home Medications Medication Instructions Recorded Confirmed amLODIPine BESYLATE [Norvasc] 10 mg PO DAILY 06/29/18 10/06/18 Acetaminophen Tab [Tylenol] 650 mg PO Q6H PRN 08/31/18 10/06/18 Ergocalciferol (Vitamin D2) 66,000 unit PO Q7D 08/31/18 10/06/18 [Ergocalciferol] Magnesium Oxide [Mag-Ox] 400 mg PO DAILY 08/31/18 10/06/18 Epoetin Von [Procrit] 4,000 unit IJ MOWEFR 10/06/18 10/06/18 Previous Rx's Medication Instructions Recorded Ferrous Sulfate [Feosol] 325 mg PO DAILY #30 tab 07/04/18 Ipratropium-Albuterol Nebulize 3 ml INHALATION RT-QID ampul.neb 07/24/18 [Duoneb 0.5 mg-3 mg/3 ml Soln] Levothyroxine Sodium [Synthroid] 25 mcg PO DAILY #1 tab 07/24/18 Metoprolol Tartrate [Lopressor] 50 mg PO BID tab 07/24/18 Omeprazole [PriLOSEC] 20 mg PO AC-BID #1 cap 07/24/18 Aspirin 81 mg PO DAILY chew 09/06/18 Sodium Bicarbonate Tab 650 mg PO BID #0 09/06/18 Allergies Allergy/AdvReac Type Severity Reaction Status Date / Time No Known Allergies Allergy Verified 10/06/18 17:44 Review of Systems ROS Statement: Those systems with pertinent positive or pertinent negative responses have been documented in the HPI. ROS Other: All systems not noted in ROS Statement are negative. Past Medical History Past Medical History: GI Bleed, Hypertension, Neurologic Disorder, Pneumonia, Renal Disease Additional Past Medical History / Comment(s): Hx calculus of bile duct, acute cholecystitis, pancreatitis. History of Any Multi-Drug Resistant Organisms: None Reported Past Surgical History: Orthopedic Surgery Additional Past Surgical History / Comment(s): cervical surgery, bilateral cataract removal with lens implants, umbilical hernia as a baby, bile duct stent, ERCP, C3-6 plate Past Anesthesia/Blood Transfusion Reactions: No Reported Reaction Past Psychological History: No Psychological Hx Reported Smoking Status: Former smoker Past Alcohol Use History: Occasional Past Drug Use History: None Reported - Past Family History Father Family Medical History: Cancer Additional Family Medical History / Comment(s): Melanoma Mother Family Medical History: Cancer Additional Family Medical History / Comment(s): Breast cancer. General Exam Limitations: physical limitation General appearance: alert, in no apparent distress Head exam: Present: atraumatic, normocephalic, normal inspection Eye exam: Present: normal appearance, PERRL, EOMI. Absent: scleral icterus, conjunctival injection, periorbital swelling ENT exam: Present: normal exam, mucous membranes moist Neck exam: Present: normal inspection. Absent: tenderness, meningismus, lymphadenopathy Respiratory exam: Present: normal lung sounds bilaterally. Absent: respiratory distress, wheezes, rales, rhonchi, stridor Cardiovascular Exam: Present: regular rate, normal rhythm, normal heart sounds. Absent: systolic murmur, diastolic murmur, rubs, gallop, clicks GI/Abdominal exam: Present: soft, normal bowel sounds. Absent: distended, tenderness, guarding, rebound, rigid Extremities exam: Present: normal inspection, full ROM, normal capillary refill. Absent: tenderness, pedal edema, joint swelling, calf tenderness Back exam: Present: normal inspection Neurological exam: Present: alert, oriented X3, CN II-XII intact Psychiatric exam: Present: normal affect, normal mood Skin exam: Present: warm, dry, intact, normal color. Absent: rash Course Vital Signs 0710/06/18 10/06/18 16:43 16:58 17:00 Temperature Pulse Rate 72 Respiratory 18 Rate Blood Pressure 95/52 95/52 94/49 O2 Sat by Pulse 99 99 100 Oximetry 10/06/18 10/06/18 10/06/18 17:05 17:30 17:45 Temperature 95.2 F L Pulse Rate 74 73 Respiratory 13 15 Rate Blood Pressure 90/48 96/47 O2 Sat by Pulse 100 100 Oximetry 10/06/18 10/06/18 10/06/18 18:15 18:19 18:22 Temperature 93.5 F L Pulse Rate 73 74 Respiratory 13 18 Rate Blood Pressure 95/46 95/46 O2 Sat by Pulse 94 L 97 Oximetry 10/06/18 10/06/18 10/06/18 18:59 19:45 20:00 Temperature 97.4 F L Pulse Rate 74 84 85 Respiratory 18 16 13 Rate Blood Pressure 96/49 91/47 91/47 O2 Sat by Pulse 97 92 L 99 Oximetry 10/06/18 10/06/18 10/06/18 20:15 20:30 20:45 Temperature Pulse Rate 86 90 89 Respiratory 12 10 L 14 Rate Blood Pressure 95/46 103/53 86/76 O2 Sat by Pulse 98 99 Oximetry 10/06/18 10/06/18 10/06/18 21:08 21:15 21:23 Temperature Pulse Rate 86 87 87 Respiratory 15 Rate Blood Pressure 111/52 O2 Sat by Pulse 100 Oximetry 10/06/18 10/06/18 10/06/18 21:30 21:45 22:00 Temperature Pulse Rate 87 91 Respiratory 12 13 15 Rate Blood Pressure 101/53 110/61 110/61 O2 Sat by Pulse 99 95 97 Oximetry 10/06/18 10/06/18 10/06/18 22:01 22:13 22:15 Temperature 97.2 F L Pulse Rate 90 89 Respiratory 15 Rate Blood Pressure 100/54 O2 Sat by Pulse 95 Oximetry 10/06/18 10/06/18 10/06/18 22:30 22:45 22:59 Temperature 97.7 F Pulse Rate 87 89 Respiratory 14 18 17 Rate Blood Pressure 103/80 100/55 O2 Sat by Pulse 98 98 Oximetry 10/06/18 10/06/18 10/07/18 23:00 23:45 00:00 Temperature 97.9 F Pulse Rate 87 89 91 Respiratory 17 19 22 Rate Blood Pressure 100/55 102/52 102/52 O2 Sat by Pulse 98 95 95 Oximetry - Reevaluation(s) Reevaluation #1: 10/06/18 20:15 Medical record is reviewed Reevaluation #2: 10/06/18 20:16 [place] with nephrology recommending HCO3 bicarbonate. And treatment of high potassium recheck potassium 2 hours Reevaluation #3: 10/06/18 20:16 Spoke with ICU who is accepting of patient Medical Decision Making - Medical Decision Making 68 male the ER for evaluation. Patient resents today for evaluation regards to altered mental status. Patient's remains altered throughout ER stay. She'll be admitted for significant rehydration treatment of UTI was infection, sepsis, monitoring of electrolytes. Critical care - Lab Data Result diagrams: 10/07/18 04:36 10/07/18 15:47 Lab Results 10/06/18 10/06/18 10/06/18 Range/Units 17:17 17:17 17:17 WBC 24.5 H (3.8-10.6) k/uL RBC 2.94 L (4.30-5.90) m/uL Hgb 8.3 L (13.0-17.5) gm/dL Hct 28.1 L (39.0-53.0) % MCV 95.6 (80.0-100.0) fL MCH 28.3 (25.0-35.0) pg MCHC 29.7 L (31.0-37.0) g/dL RDW 21.3 H (11.5-15.5) % Plt Count 512 H (150-450) k/uL Neutrophils % 91 % Lymphocytes % 4 % Monocytes % 3 % Eosinophils % 2 % Basophils % 0 % Neutrophils # 22.2 H (1.3-7.7) k/uL Lymphocytes # 1.0 (1.0-4.8) k/uL Monocytes # 0.6 (0-1.0) k/uL Eosinophils # 0.5 (0-0.7) k/uL Basophils # 0.0 (0-0.2) k/uL Hypochromasia Marked Poikilocytosis Moderate Anisocytosis Moderate Macrocytosis Slight PT (9.0-12.0) sec INR (<1.2) APTT (22.0-30.0) sec Sodium 142 (137-145) mmol/L Potassium 7.3 H* (3.5-5.1) mmol/L Chloride 115 H (98-107) mmol/L Carbon Dioxide 5 L* (22-30) mmol/L Anion Gap 22 mmol/L BUN 117 H* (9-20) mg/dL Creatinine 7.27 H* (0.66-1.25) mg/dL Est GFR (CKD-EPI)AfAm 8 (>60 ml/min/1.73 sqM) Est GFR (CKD-EPI)NonAf 7 (>60 ml/min/1.73 sqM) Glucose 83 (74-99) mg/dL Plasma Lactic Acid Fred 0.8 (0.7-2.0) mmol/L Calcium 7.9 L (8.4-10.2) mg/dL Phosphorus 12.5 H* (2.5-4.5) mg/dL Magnesium 2.4 H (1.6-2.3) mg/dL Total Bilirubin 0.6 (0.2-1.3) mg/dL AST 29 (17-59) U/L ALT 10 L (21-72) U/L Alkaline Phosphatase 158 H (38-126) U/L Creatine Kinase 122 (55-170) U/L Troponin I (0.000-0.034) ng/mL NT-Pro-B Natriuret Pep pg/mL Total Protein 6.9 (6.3-8.2) g/dL Albumin 3.1 L (3.5-5.0) g/dL Urine Color Urine Appearance (Clear) Urine pH (5.0-8.0) Ur Specific [place] (1.001-1.035) Urine Protein (Negative) Urine Glucose (UA) (Negative) Urine Ketones (Negative) Urine Blood (Negative) Urine Nitrite (Negative) Urine Bilirubin (Negative) Urine Urobilinogen (<2.0) mg/dL Ur Leukocyte Esterase (Negative) Urine WBC (0-5) /hpf Urine WBC Clumps (None) /hpf Urine Bacteria (None) /hpf 10/06/18 10/06/18 10/06/18 Range/Units 17:17 17:17 17:17 WBC (3.8-10.6) k/uL RBC (4.30-5.90) m/uL Hgb (13.0-17.5) gm/dL Hct (39.0-53.0) % MCV (80.0-100.0) fL MCH (25.0-35.0) pg MCHC (31.0-37.0) g/dL RDW (11.5-15.5) % Plt Count (150-450) k/uL Neutrophils % % Lymphocytes % % Monocytes % % Eosinophils % % Basophils % % Neutrophils # (1.3-7.7) k/uL Lymphocytes # (1.0-4.8) k/uL Monocytes # (0-1.0) k/uL Eosinophils # (0-0.7) k/uL Basophils # (0-0.2) k/uL Hypochromasia Poikilocytosis Anisocytosis Macrocytosis PT 10.7 (9.0-12.0) sec INR 1.0 (<1.2) APTT 30.7 H (22.0-30.0) sec Sodium (137-145) mmol/L Potassium (3.5-5.1) mmol/L Chloride (98-107) mmol/L Carbon Dioxide (22-30) mmol/L Anion Gap mmol/L BUN (9-20) mg/dL Creatinine (0.66-1.25) mg/dL Est GFR (CKD-EPI)AfAm (>60 ml/min/1.73 sqM) Est GFR (CKD-EPI)NonAf (>60 ml/min/1.73 sqM) Glucose (74-99) mg/dL Plasma Lactic Acid Fred (0.7-2.0) mmol/L Calcium (8.4-10.2) mg/dL Phosphorus (2.5-4.5) mg/dL Magnesium (1.6-2.3) mg/dL Total Bilirubin (0.2-1.3) mg/dL AST (17-59) U/L ALT (21-72) U/L Alkaline Phosphatase (38-126) U/L Creatine Kinase (55-170) U/L Troponin I <0.012 (0.000-0.034) ng/mL NT-Pro-B Natriuret Pep 39817 pg/mL Total Protein (6.3-8.2) g/dL Albumin (3.5-5.0) g/dL Urine Color Urine Appearance (Clear) Urine pH (5.0-8.0) Ur Specific [place] (1.001-1.035) Urine Protein (Negative) Urine Glucose (UA) (Negative) Urine Ketones (Negative) Urine Blood (Negative) Urine Nitrite (Negative) Urine Bilirubin (Negative) Urine Urobilinogen (<2.0) mg/dL Ur Leukocyte Esterase (Negative) Urine WBC (0-5) /hpf Urine WBC Clumps (None) /hpf Urine Bacteria (None) /hpf 10/06/18 Range/Units 19:45 WBC (3.8-10.6) k/uL RBC (4.30-5.90) m/uL Hgb (13.0-17.5) gm/dL Hct (39.0-53.0) % MCV (80.0-100.0) fL MCH (25.0-35.0) pg MCHC (31.0-37.0) g/dL RDW (11.5-15.5) % Plt Count (150-450) k/uL Neutrophils % % Lymphocytes % % Monocytes % % Eosinophils % % Basophils % % Neutrophils # (1.3-7.7) k/uL Lymphocytes # (1.0-4.8) k/uL Monocytes # (0-1.0) k/uL Eosinophils # (0-0.7) k/uL Basophils # (0-0.2) k/uL Hypochromasia Poikilocytosis Anisocytosis Macrocytosis PT (9.0-12.0) sec INR (<1.2) APTT (22.0-30.0) sec Sodium (137-145) mmol/L Potassium (3.5-5.1) mmol/L Chloride (98-107) mmol/L Carbon Dioxide (22-30) mmol/L Anion Gap mmol/L BUN (9-20) mg/dL Creatinine (0.66-1.25) mg/dL Est GFR (CKD-EPI)AfAm (>60 ml/min/1.73 sqM) Est GFR (CKD-EPI)NonAf (>60 ml/min/1.73 sqM) Glucose (74-99) mg/dL Plasma Lactic Acid Fred (0.7-2.0) mmol/L Calcium (8.4-10.2) mg/dL Phosphorus (2.5-4.5) mg/dL Magnesium (1.6-2.3) mg/dL Total Bilirubin (0.2-1.3) mg/dL AST (17-59) U/L ALT (21-72) U/L Alkaline Phosphatase (38-126) U/L Creatine Kinase (55-170) U/L Troponin I (0.000-0.034) ng/mL NT-Pro-B Natriuret Pep pg/mL Total Protein (6.3-8.2) g/dL Albumin (3.5-5.0) g/dL Urine Color Light Red Urine Appearance Turbid (Clear) Urine pH 5.5 (5.0-8.0) Ur Specific [place] 1.015 (1.001-1.035) Urine Protein 2+ H (Negative) Urine Glucose (UA) Negative (Negative) Urine Ketones Trace H (Negative) Urine Blood Trace H (Negative) Urine Nitrite Negative (Negative) Urine Bilirubin Negative (Negative) Urine Urobilinogen <2.0 (<2.0) mg/dL Ur Leukocyte Esterase Large H (Negative) Urine WBC >182 H (0-5) /hpf Urine WBC Clumps Many H (None) /hpf Urine Bacteria Occasional H (None) /hpf - EKG Data -: EKG Interpreted by Me (EKG shows sinus rhythm rate of 72, ND 180, QRS 80, QTC 479) - Radiology Data Radiology results: report reviewed (CT brain chest x-rays negative for acute disease), image reviewed Critical Care Time Critical Care Time: Yes Total Critical Care Time: 65 Disposition Clinical Impression: Fall, Acute renal failure, Hyperkalemia, Hypothermia, Nosocomial pneumonia, MUMTAZ (acute kidney injury), UTI (urinary tract infection), Sepsis Disposition: ADMITTED IP TO THIS HOSP Condition: Critical Is patient prescribed a controlled substance at d/c from ED?: No
[2018-10-06 17:30] LABS: Anisocytosis Moderate; Basophils % (A) 0 %; Eosinophils # (A) 0.5 k/uL (0-0.7); Eosinophils % (A) 2 %; HCT 28.1 % (39.0-53.0); HGB 8.3 gm/dL (13.0-17.5); Hypochromasia Marked; Lymphocytes % (A) 4 %; MCH 28.3 pg (25.0-35.0); MCHC 29.7 g/dL (31.0-37.0); MCV 95.6 fL (80.0-100.0); Macrocytosis Slight; Mean Platelet Volume 7.7; Monocytes # (A) 0.6 k/uL (0-1.0); Monocytes % (A) 3 %; Neutrophils # (A) 22.2 k/uL (1.3-7.7); Neutrophils % (A) 91 %; Platelet Count 512 k/uL (150-450); Poikilocytosis Moderate; RBC 2.94 m/uL (4.30-5.90); RDW 21.3 % (11.5-15.5); WBC 24.5 k/uL (3.8-10.6)
[2018-10-06 17:45] LABS: Albumin 3.1 g/dL (3.5-5.0); Calcium 7.9 mg/dL (8.4-10.2); Magnesium 2.4 mg/dL (1.6-2.3); Total Bilirubin 0.6 mg/dL (0.2-1.3); Total Protein 6.9 g/dL (6.3-8.2)
[2018-10-06 17:49] LABS: Partial Thromboplastin Time 30.7 sec (22.0-30.0); Prothrombin Time 10.7 sec (9.0-12.0)
[2018-10-06 18:12] LABS: Potassium 7.3 mmol/L (3.5-5.1)
[2018-10-06] MEDS ORDERED: PIPERACILLIN-TAZOBACTAM 3.375 GM in SODIUM CHLORIDE 0.9% 100 ML IVPB STA (18:15)
[2018-10-06] MEDS ORDERED: VANCOMYCIN IV PER PHARMACY 1 EACH MISC MISCELLANE PRN (18:15)
[2018-10-06] MEDS ORDERED: SODIUM CHLORIDE 0.9% 500 ML 500 ML IV STA (18:15)
[2018-10-06] MEDS ORDERED: CALCIUM GLUCONATE 2 GM in SODIUM CHLORIDE 0.9% 100 ML IVPB ONE (18:15)
[2018-10-06] MEDS ORDERED: SODIUM BICARB 8.4% 50 ML SYR (1 MEQ/ML) IV STA ×3 (18:15→20:06)
[2018-10-06] MEDS ORDERED: SODIUM CHLORIDE 0.9% 2,000 ML IV STA (18:15)
[2018-10-06] MEDS ORDERED: INSULIN REGULAR 100 UNIT/ML VIAL IV ONE (18:15)
[2018-10-06] MEDS ORDERED: DEXTROSE 50% SYRINGE 50 ML IVP STA (18:15)
[2018-10-06 18:16] LABS: Phosphorus 12.5 mg/dL (2.5-4.5)
[2018-10-06] MEDS ORDERED: VANCOMYCIN 1,000 MG in SODIUM CHLORIDE 0.9% 250 ML IVPB ONE (18:30)
--- NOTE | 2018-10-06 18:42 | CT ---
EXAMINATION TYPE: CT brain leonides segundo DATE OF EXAM: 10/06/2018 COMPARISON: CT brain 07/09/2018 HISTORY: Headache. Neck pain CT DLP: mGycm Automated exposure control for dose reduction was used. TECHNIQUE: CT scan of the head and cervical spine are performed without contrast. FINDINGS: There is cerebral cortical atrophy. There is mild hypodensity in the periventricular whit e matter. There is no mass effect nor midline shift. There is no sign of intracranial hemorrhage. The calvarium is intact. 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 There is multilevel anterior fusion surgery from C3 to C7. Posterior elements are intact. There is a mild cervical kyphotic deformity. The skull base is intact. I see no acute fracture of the cervical s pine. IMPRESSION: Cerebral atrophy and chronic small vessel ischemia. No change. No acute intracranial abnormality. Previous cervical spine multilevel fusion surgery. No acute bony abnormality. No fracture seen. Mild anterior subluxation deformity at C5-6 appears chronic.
[2018-10-06] MEDS ORDERED: ALBUTEROL NEBULIZED 2.5 MG/3 ML INHALATION STA ×2 (20:08→20:44)
--- NOTE | 2018-10-06 20:13 | XR ---
EXAMINATION TYPE: XR pelvis AP view DATE OF EXAM: 10/06/2018 COMPARISON: 08/20/2010 HISTORY: Pain TECHNIQUE: Single view FINDINGS: There is vascular calcification. Pelvic ring is intact. Proximal femurs are intact. I see n o fracture. There is osteopenia. IMPRESSION: No acute bony abnormality. There is osteopenia that appears new compared to old exam.
[2018-10-06 20:35] LABS: Appearance,Urine Turbid (Clear); Bacteria,Urine Occasional /hpf; Bilirubin,Urine Negative (Negative); Blood,Urine Trace (Negative); Color,Urine Light Red; Glucose,Urine (UA) Negative (Negative); Ketones,Urine Trace (Negative); Leukocyte Esterase,Urine Large (Negative); Nitrite,Urine Negative (Negative); PH, Urine 5.5 (5.0-8.0); Protein,Urine 2+ (Negative); Urobilinogen,Urine <2.0 mg/dL (<2.0); WBC,Urine >182 /hpf (0-5)
[2018-10-06 20:37] LABS: Specific Gravity,Urine 1.015 (1.001-1.035)
[2018-10-06] MEDS ORDERED: FLUCONAZOLE IN NACL,ISO-OSM 200 MG in SALINE 1 100ML.BAG IVPB ONE (21:00)
--- NOTE | 2018-10-06 21:27 | CT ---
EXAMINATION TYPE: CT abdomen pelvis wo con DATE OF EXAM: 10/06/2018 COMPARISON: 12/17/2014 HISTORY: Abdominal pain. CT DLP: 416.2 mGycm Automated exposure control for dose reduction was used. TECHNIQUE: Helical acquisition of images was performed from the lung bases through the pelvis. FINDINGS: There are bilateral pleural effusions. There is bilateral basilar pulmonary infiltrates and atelectas is. Liver shows no focal defect. Spleen is normal. There is extensive pancreatic calcification. Gallbladd er appears normal. Bile ducts are not dilated. There is no adrenal mass. The kidneys show no hydronephrosis. Ureters are not dilated. There is 2 cm cortical cyst posterior left kidney. There is Zhu catheter in the urinary bladder. Bladder is empty. There is no free fluid in the pelvi s. There is no evidence of a pelvic mass. There is no mesenteric edema. The lumbar spine is intact. B noreen pelvis is intact. There is no free air. There is no evidence of ascites. IMPRESSION: THERE IS EXTENSIVE PANCREATIC CALCIFICATION CONSISTENT WITH CHRONIC PANCREATITIS THAT SHOWS SIGNIFICA NT INCREASED CALCIFICATION COMPARED TO OLD EXAM. THERE IS CLEARING OF THE HIGH ATTENUATION MATERIAL I N THE GALLBLADDER COMPARED TO OLD EXAM. THERE IS POSTERIOR LEFT RENAL APPARENT CORTICAL CYSTS THAT SHOULD BE CONFIRMED BY ULTRASOUND. THIS IS A CHANGE COMPARED TO OLD EXAM. EXTENSIVE BASILAR PULMONARY INFILTRATES AND ATELECTASIS AND LATERAL FLUID IS NEW COMPARED TO OLD EXAM .
[2018-10-06] MEDS ORDERED: NALOXONE 0.4 MG/ML 1 ML VIAL IV PRN (22:31)
[2018-10-07] MEDS: DEXTROSE 5% IN WATER 1,000 ML with SODIUM BICARB (1 MEQ/ML) 150 ML IV SCH ×3 (00:22→20:27)
--- NOTE | 2018-10-07 00:23 | XR ---
EXAM: XR Chest, 2 Views CLINICAL HISTORY: ITS.REASON XR Reason: Pain TECHNIQUE: Frontal and lateral views of the chest. COMPARISON: No relevant prior studies available. FINDINGS: Lungs: Infiltrate in the mid to lower left lung. Pleural space: Unremarkable. No pneumothorax. Heart: No suspicious enlargement. Mediastinum: Unremarkable. Bones/joints: No acute fracture. IMPRESSION: Infiltrate in the mid to lower left lung
[2018-10-07 00:29] LABS: Glucose,Whole Blood 84 mg/dL (75-99)
[2018-10-07 01:43] LABS: Calcium 7.4 mg/dL (8.4-10.2); Potassium 4.8 mmol/L (3.5-5.1)
[2018-10-07 05:30] LABS: Anisocytosis Moderate; Basophils % (A) 0 %; Eosinophils # (A) 0.1 k/uL (0-0.7); Eosinophils % (A) 1 %; HCT 24.3 % (39.0-53.0); Hypochromasia Marked; Lymphocytes # (A) 0.3 k/uL (1.0-4.8); Lymphocytes % (A) 1 %; MCH 27.9 pg (25.0-35.0); MCHC 28.8 g/dL (31.0-37.0); MCV 96.6 fL (80.0-100.0); Macrocytosis Slight; Mean Platelet Volume 7.7; Monocytes # (A) 0.7 k/uL (0-1.0); Monocytes % (A) 3 %; Neutrophils # (A) 22.4 k/uL (1.3-7.7); Neutrophils % (A) 95 %; Platelet Count 369 k/uL (150-450); Poikilocytosis Moderate; RBC 2.52 m/uL (4.30-5.90); RDW 21.9 % (11.5-15.5); WBC 23.6 k/uL (3.8-10.6)
[2018-10-07 05:42] LABS: Calcium 7.1 mg/dL (8.4-10.2); Potassium 4.2 mmol/L (3.5-5.1)
[2018-10-07] MEDS: IPRATROPIUM-ALBUTEROL 3 ML NEB INHALATION SCH ×6 (07:33→20:45)
[2018-10-07] MEDS: PIPERACILLIN-TAZOBACTAM 3.375 GM in SODIUM CHLORIDE 0.9% 100 ML IVPB SCH ×2 (08:10→20:27)
[2018-10-07] MEDS: PANTOPRAZOLE 40 MG/10 ML VIAL IV SCH (08:11)
[2018-10-07] MEDS ORDERED: SODIUM BICARB 8.4% 50 ML SYR (1 MEQ/ML) IV STA ×2 (08:30→08:31)
[2018-10-07 10:41] LABS: ALT 12 U/L (21-72); AST 25 U/L (17-59); African American GFR (CKD) 11 (>60 ml/min/1.73 sqM); Albumin 2.4 g/dL (3.5-5.0); Alcohol <10 mg/dL; Alkaline Phosphatase 113 U/L (38-126); Anion Gap 20 mmol/L; Calcium 6.9 mg/dL (8.4-10.2); Carbon Dioxide 11 mmol/L (22-30); Chloride 117 mmol/L (98-107); Glucose 181 mg/dL (74-99); Potassium 4.5 mmol/L (3.5-5.1); Sodium 148 mmol/L (137-145); Total Bilirubin 0.4 mg/dL (0.2-1.3); Total Protein 5.3 g/dL (6.3-8.2)
[2018-10-07 10:49] LABS: Blood Urea Nitrogen 101 mg/dL (9-20)
--- NOTE | 2018-10-07 11:56 | P.HPIM ---
History of Present Illness This is a pleasant 68 years old male with past medical history of GI bleed, hypertension, pneumonia, bile stones and acute cholecystitis and pancreatitis status post ERCP, He was recently discharged from [facility] to his home, to be followed by his friend few days later on the ground. Patient subsequently confused and can only answer a few questions like his name, he does not know where his at and why he is in the hospital for. He doesn't to be in distress or complaining from pain. On admission patient was hypotensive with blood pressure 95/52, saturating 99% on room air, heart rate 72 and breathing at 18, patient also was hypothermic with temperature was as low as 93.5. Labs showing marked leukocytosis with 20 3.6K, hemoglobin 7.0, platelets 369, sodium 147-148, potassium 4.5, creatinine 5.9, carbon dioxide was 6-7, currently 11. Sugar was low at 63, and liver enzymes not elevated. UA is suspicious of infections with urine WBC more than 182, serum alcohol less than 10, acetone is positive. INR is 1.0. Chest x-ray showing left mid to lower lobe infiltrate. CT of the abdomen and pelvis without contrast: Left posterior renal cyst, 2 cm. Pelvic x-ray no fracture. CT of the brain and cervical spine shows no acute fracture. Patient was started on IV fluids, sodium bicarb, he got 1 dose of vancomycin and started on Zosyn. Patient was admitted to the ICU for further management Review of Systems N/a Past Medical History Past Medical History: GI Bleed, Hypertension, Neurologic Disorder, Pneumonia, Renal Disease Additional Past Medical History / Comment(s): Hx calculus of bile duct, acute cholecystitis, pancreatitis. History of Any Multi-Drug Resistant Organisms: None Reported Past Surgical History: Orthopedic Surgery Additional Past Surgical History / Comment(s): cervical surgery, bilateral cataract removal with lens implants, umbilical hernia as a baby, bile duct stent, ERCP, C3-6 plate Past Anesthesia/Blood Transfusion Reactions: No Reported Reaction Past Psychological History: No Psychological Hx Reported Additional Psychological History / Comment(s): Pt resides alone in a mobile home with 3 steps that lately have been difficult for him to navigate. He ambulates with a cane or walker. He does drives. He has helpful neighbors. Smoking Status: Former smoker Past Alcohol Use History: Occasional Additional Past Alcohol Use History / Comment(s): Started smoking at age 27, smokes about a ppd. Pt states in the past he drank a fifth of whiskey a day but in 2013 cut back to a drink a day and a few drinks on weekends. He drinks beer or vodka now. Past Drug Use History: None Reported - Past Family History Father Family Medical History: Cancer Additional Family Medical History / Comment(s): Melanoma Mother Family Medical History: Cancer Additional Family Medical History / Comment(s): Breast cancer. Medications and Allergies Home Medications Medication Instructions Recorded Confirmed Type amLODIPine BESYLATE [Norvasc] 10 mg PO DAILY 06/29/18 10/06/18 History Ferrous Sulfate [Feosol] 325 mg PO DAILY #30 tab 07/04/18 10/06/18 Rx Ipratropium-Albuterol Nebulize 3 ml INHALATION RT-QID ampul.neb 07/24/18 10/06/18 Rx [Duoneb 0.5 mg-3 mg/3 ml Soln] Levothyroxine Sodium [Synthroid] 25 mcg PO DAILY #1 tab 07/24/18 10/06/18 Rx Metoprolol Tartrate [Lopressor] 50 mg PO BID tab 07/24/18 10/06/18 Rx Omeprazole [PriLOSEC] 20 mg PO AC-BID #1 cap 07/24/18 10/06/18 Rx Acetaminophen Tab [Tylenol] 650 mg PO Q6H PRN 08/31/18 10/06/18 History Ergocalciferol (Vitamin D2) 66,000 unit PO Q7D 08/31/18 10/06/18 History [Ergocalciferol] Magnesium Oxide [Mag-Ox] 400 mg PO DAILY 08/31/18 10/06/18 History Aspirin 81 mg PO DAILY chew 09/06/18 10/06/18 Rx Sodium Bicarbonate Tab 650 mg PO BID #0 09/06/18 10/06/18 Rx Epoetin Von [Procrit] 4,000 unit IJ MOWEFR 10/06/18 10/06/18 History Allergies Allergy/AdvReac Type Severity Reaction Status Date / Time No Known Allergies Allergy Verified 10/06/18 17:44 Physical Exam Vitals: Vital Signs Temp Pulse Resp BP Pulse Ox 10/07/18 11:31 92 10/07/18 11:27 90 10/07/18 11:00 86 12 100/51 96 10/07/18 10:00 87 20 104/52 95 10/07/18 09:00 88 16 92/59 97 10/07/18 08:00 99.0 F 85 17 94/64 95 10/07/18 07:45 88 10/07/18 07:34 86 10/07/18 06:00 85 28 H 77/55 94 L 10/07/18 05:00 86 15 90/45 93 L 10/07/18 04:00 98.0 F 88 14 88/43 96 10/07/18 03:00 88 14 76/48 97 10/07/18 02:00 91 16 92/49 93 L 10/07/18 01:30 90 16 98/50 94 L 10/07/18 01:15 91 20 98/50 95 10/07/18 01:00 92 19 97/56 84 L 10/07/18 00:45 93 18 97/56 94 L 10/07/18 00:30 19 89/59 83 L 10/07/18 00:15 102/52 10/07/18 00:00 97.9 F 91 22 102/52 95 10/06/18 23:45 89 19 102/52 95 10/06/18 23:00 87 17 100/55 98 10/06/18 22:59 17 10/06/18 22:45 97.7 F 89 18 100/55 98 10/06/18 22:30 87 14 103/80 98 10/06/18 22:15 89 15 100/54 95 10/06/18 22:13 97.2 F L 10/06/18 22:01 90 10/06/18 22:00 91 15 110/61 97 10/06/18 21:45 13 110/61 95 10/06/18 21:30 87 12 101/53 99 10/06/18 21:23 87 10/06/18 21:15 87 15 111/52 100 10/06/18 21:08 86 10/06/18 20:45 89 14 86/76 10/06/18 20:30 90 10 L 103/53 99 10/06/18 20:15 86 12 95/46 98 10/06/18 20:00 85 13 91/47 99 10/06/18 19:45 84 16 91/47 92 L 10/06/18 18:59 97.4 F L 74 18 96/49 97 10/06/18 18:22 74 18 95/46 97 10/06/18 18:19 93.5 F L 10/06/18 18:15 73 13 95/46 94 L 10/06/18 17:45 73 15 96/47 100 10/06/18 17:30 74 13 90/48 100 10/06/18 17:05 95.2 F L 10/06/18 17:00 94/49 100 10/06/18 16:58 95/52 99 10/06/18 16:43 72 18 95/52 99 Intake and Output 10/06/18 10/07/18 10/07/18 22:59 06:59 14:59 Intake Total 800 700 Output Total 125 375 260 Balance -125 425 440 Intake: IV 800 700 Dextrose 5% in Water 1, 800 600 000 ml @ 200 mls/hr IV . Q5H45M ANTHONY with Sodium Bicarb (1 Meq/ml) 150 ml Rx#:[id number] Piperacillin-Tazobactam 3 100 .375 gm In Sodium Chloride 0.9% 100 ml @ 25 mls/hr IVPB Q12H ANTHONY Rx# :[id number] Output: Urine 125 375 260 Uretheral (Zhu) 125 Other: Voiding Method Indwelling Catheter Indwelling Catheter Weight 47 kg 58 kg -GENERAL: The patient is confused , he opens eyes spontaneously and answer a few questions like his name HEENT: Pupils are round and equally reacting to light. EOMI. No scleral icterus. No conjunctival pallor. Normocephalic, atraumatic. No pharyngeal erythema. No thyromegaly. Looks dehydrated CARDIOVASCULAR: S1 and S2 present. No murmurs, rubs, or gallops. PULMONARY: Chest is clear to auscultation, no wheezing or crackles. ABDOMEN: Soft, nontender, nondistended, normoactive bowel sounds. No palpable organomegaly. MUSCULOSKELETAL: No joint swelling or deformity. EXTREMITIES: No cyanosis, clubbing, or pedal edema. NEUROLOGICAL: Gross neurological examination did not reveal any focal deficits. SKIN: No rashes. Results CBC & Chem 7: 10/07/18 04:36 10/07/18 10:05 Labs: Abnormal Lab Results - Last 24 Hours (Table) 10/06/18 10/06/18 10/06/18 Range/Units 17:17 17:17 17:17 WBC 24.5 H (3.8-10.6) k/uL RBC 2.94 L (4.30-5.90) m/uL Hgb 8.3 L (13.0-17.5) gm/dL Hct 28.1 L (39.0-53.0) % MCHC 29.7 L (31.0-37.0) g/dL RDW 21.3 H (11.5-15.5) % Plt Count 512 H (150-450) k/uL Neutrophils # 22.2 H (1.3-7.7) k/uL Lymphocytes # (1.0-4.8) k/uL APTT 30.7 H (22.0-30.0) sec Sodium (137-145) mmol/L Potassium 7.3 H* (3.5-5.1) mmol/L Chloride 115 H (98-107) mmol/L Carbon Dioxide 5 L* (22-30) mmol/L BUN 117 H* (9-20) mg/dL Creatinine 7.27 H* (0.66-1.25) mg/dL Glucose (74-99) mg/dL Calcium 7.9 L (8.4-10.2) mg/dL Phosphorus 12.5 H* (2.5-4.5) mg/dL Magnesium 2.4 H (1.6-2.3) mg/dL ALT 10 L (21-72) U/L Alkaline Phosphatase 158 H (38-126) U/L Total Protein (6.3-8.2) g/dL Albumin 3.1 L (3.5-5.0) g/dL Urine Protein (Negative) Urine Ketones (Negative) Urine Blood (Negative) Ur Leukocyte Esterase (Negative) Urine WBC (0-5) /hpf Urine WBC Clumps (None) /hpf Urine Bacteria (None) /hpf 10/06/18 10/07/18 10/07/18 Range/Units 19:45 01:18 01:18 WBC (3.8-10.6) k/uL RBC (4.30-5.90) m/uL Hgb (13.0-17.5) gm/dL Hct (39.0-53.0) % MCHC (31.0-37.0) g/dL RDW (11.5-15.5) % Plt Count (150-450) k/uL Neutrophils # (1.3-7.7) k/uL Lymphocytes # (1.0-4.8) k/uL APTT (22.0-30.0) sec Sodium 147 H (137-145) mmol/L Potassium (3.5-5.1) mmol/L Chloride 121 H (98-107) mmol/L Carbon Dioxide 7 L* (22-30) mmol/L BUN 99 H (9-20) mg/dL Creatinine 5.94 H (0.66-1.25) mg/dL Glucose 63 L (74-99) mg/dL Calcium 7.4 L (8.4-10.2) mg/dL Phosphorus 9.2 H* (2.5-4.5) mg/dL Magnesium (1.6-2.3) mg/dL ALT (21-72) U/L Alkaline Phosphatase (38-126) U/L Total Protein (6.3-8.2) g/dL Albumin (3.5-5.0) g/dL Urine Protein 2+ H (Negative) Urine Ketones Trace H (Negative) Urine Blood Trace H (Negative) Ur Leukocyte Esterase Large H (Negative) Urine WBC >182 H (0-5) /hpf Urine WBC Clumps Many H (None) /hpf Urine Bacteria Occasional H (None) /hpf 10/07/18 10/07/18 10/07/18 Range/Units 04:36 04:36 10:05 WBC 23.6 H (3.8-10.6) k/uL RBC 2.52 L (4.30-5.90) m/uL Hgb 7.0 L (13.0-17.5) gm/dL Hct 24.3 L (39.0-53.0) % MCHC 28.8 L (31.0-37.0) g/dL RDW 21.9 H (11.5-15.5) % Plt Count (150-450) k/uL Neutrophils # 22.4 H (1.3-7.7) k/uL Lymphocytes # 0.3 L (1.0-4.8) k/uL APTT (22.0-30.0) sec Sodium 147 H 148 H (137-145) mmol/L Potassium (3.5-5.1) mmol/L Chloride 119 H 117 H (98-107) mmol/L Carbon Dioxide 6 L* 11 L (22-30) mmol/L BUN 99 H 101 H* (9-20) mg/dL Creatinine 5.98 H 5.81 H (0.66-1.25) mg/dL Glucose 181 H (74-99) mg/dL Calcium 7.1 L 6.9 L (8.4-10.2) mg/dL Phosphorus (2.5-4.5) mg/dL Magnesium (1.6-2.3) mg/dL ALT 12 L (21-72) U/L Alkaline Phosphatase (38-126) U/L Total Protein 5.3 L (6.3-8.2) g/dL Albumin 2.4 L (3.5-5.0) g/dL Urine Protein (Negative) Urine Ketones (Negative) Urine Blood (Negative) Ur Leukocyte Esterase (Negative) Urine WBC (0-5) /hpf Urine WBC Clumps (None) /hpf Urine Bacteria (None) /hpf Microbiology - Last 24 Hours (Table) 10/06/18 19:45 Urine Culture - Preliminary Urine,Catheterized Thrombosis Risk Factor Assmnt - Choose All That Apply Any of the Below Risk Factors Present?: Yes Each Factor Represents 1 point: Sepsis (< 1month) Other Risk Factors: No Other congenital or acquired thrombophilia - If yes, enter type in comment: No Thrombosis Risk Factor Assessment Total Risk Factor Score: 1 Thrombosis Risk Factor Assessment Level: Low Risk Assessment and Plan Assessment: Altered mental status, mostly metabolic encephalopathy Severe metabolic acidosis Acute kidney injury and failure Acute urinary tract infection Left lung pneumonia Hypotension hyperthermia Hypoglycemia on admission Hypovolemia and dehydration 2 cm left kidney cyst Plan: This is a 68 years old male who presents with severe sepsis secondary to pneumonia and UTI, with altered mental status and acidosis, severe dehydration. Continue with IV fluids, continue with antibiotics. Follow-up recommendation by pulmonary/critical care team and nephrology team. Placenta occult blood in stoo l and monitor hemoglobin level. Labs and medication were reviewed.. Continue same treatment. Continue with symptomatic treatment. Resume home medication. Monitor lytes and vitals. DVT and GI prophylaxis. Further recommendations of the clinical course of the patient DVT prophylaxis no heparin in view of her severe anemia and dropping hemoglobin GI Prophylaxis: Protonix Prognosis is guarded
--- NOTE | 2018-10-07 12:29 | CONS ---
CONSULTATION REASON FOR CONSULT: Renal failure, metabolic acidosis and hyperkalemia. HISTORY OF PRESENT STAY: The patient is a 68-year-old male with previous history of chronic kidney disease as well as multiple episodes of acute kidney injury, who was recently discharged from the hospital in the first week of September. It appears the patient was discharged to rehab from where he was discharged home about 1-2 days ago. He was brought into the hospital as his friend found him on the floor. The patient's CO2 has been 6-7 since admission, he has been maintained on IV bicarb. Serum potassium was elevated at 7.3 on initial admission. His serum creatinine was 7.27, it is down to 5.8. Previous creatinine had been about 2.2-2.5 mg/dL. The patient does have CKD and NKF stage IV, most likely secondary to underlying chronic GN. It is not clear if the patient had increased intake of alcohol prior to admission. 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 Baseline creatinine 2.2-2.4 mg/dL, history of GI bleed. History of pneumonia, recent hospitalization, history of PEG tube placement. Currently, patient has been eating with there were plans for removal of the PEG tube. PAST SURGICAL HISTORY: Cataract surgery, PEG tube placement, ERCP, umbilical hernia repair, ERCP. SOCIAL HISTORY: Patient is a former smoker. No history of drug abuse or alcohol abuse. MEDICATIONS: Prior to admission included Norvasc, Tylenol, vitamin D2, magnesium, Procrit, iron, Prilosec, Lopressor, Synthroid, aspirin, sodium bicarb. ALLERGIES: None. REVIEW OF SYSTEMS: Cannot be obtained. PHYSICAL EXAMINATION: On examination, patient is comfortable, awake, not in any acute distress. He is sleepy but arousable. Blood pressure this morning was 92/59, heart rate 88 per minute. He is afebrile. Examination of the heart S1, S2. Examination of the lungs, bilateral breath sounds are heard. Abdomen is soft, nontender. Exam of lower extremities shows no evidence of edema. No drainage noted at the site of the PEG tube. SHIELD RUNNER exam shows patient has been moving all 4 extremities. Detailed exam cannot be performed. LAB: Show sodium 148, potassium 4.5, BUN 101, serum creatinine 5.8, hemoglobin was 7.0 g/dL. ASSESSMENT: 1. Acute kidney injury, most likely prerenal, currently improved with IV hydration. The patient has an indwelling Zhu catheter. He has had urine output. I will continue with IV fluids for now. No nephrotoxic agents on board. 2. Severe anion gap metabolic acidosis. Rule out underlying poisoning. Check alcohol level and check toxic alcohol profile and increase sodium bicarb drip. If patient remains acidotic, he will need to be dialyzed. We will repeat labs this afternoon. 3. Hyperphosphatemia associated with advanced renal failure. Add binders once the patient is eating. Expect improvement with improving renal function. 4. Starvation ketosis. Check serum acetone level. 5. Anemia with previous history of gastrointestinal bleed. Currently no active bleeding noted. 6. Mild hypernatremia. We can increase free water once the acidosis is corrected. PLAN: Increase bicarb drip to 200 mL an hour. Repeat electrolytes this afternoon. If patient remains acidotic, he will need to be dialyzed. Thank you for this consultation. We will continue to follow the patient during his hospitalization. MMODL / IJN: [id number] /
--- NOTE | 2018-10-07 13:33 | P.CNPUL ---
History of Present Illness Consult date: 10/07/18 Chief complaint: Acute kidney injury, dehydration/sepsis History of present illness: A 68-year-old male patient with extensive medical problems and comorbidities, who was recently discharged home and he was being followed up by a friend and few days later he was found on the ground confused altered weak and he was brought into the hospital where he was found to be hypotensive, hypothermic with temperature of 93.5 and having some leukocytosis with hypernatremia and the sodium ranging 147 and 148 and a creatinine of 5.9 and he was quite acidotic with serum bicarb level was as low as 6 and anion gap of 22. Lactic acid was nonelevated. The patient's blood sugar was at 63. 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 Chest x-ray showed some limited infiltration of the left lung base. CAT scan of the abdomen was done and it showed no significant acute abnormalities in the abdomen other than chronic pancreatitis-type of picture with extensive pancreatic calcification. The patient was given IV fluids, bicarb infusion and the patient was covered with a combination of Zosyn and vancomycin and Diflucan. Currently the patient is in the intensive care unit. Laying comfortably in bed. Urine was quite cloudy and dirty at time of admission and this has improved. The patient is not requiring any pressors at this point in time. This bonding and answering questions appropriately. Note that the patient has a PEG tube in place. This was placed on previous admission due to difficulties in swallowing In terms of his previous history, this 68-year-old male patient was in our intensive care unit back in July 2018. He was in for septic shock related complications related to staph pneumonia and an same time he had UTI, metabolic acidosis and acute kidney injury. He has previous history of alcoholism and previous history of pancreatitis and previous history of ERCP with insertion of a biliary stent. The patient had staph pneumonia and MSSA was cultured in his sputum. He was intubated back in 06/30/2018 and he was successfully extubated on 07/03/2018. He required BiPAP for some point. He had CHF and bilateral pleural effusion. He was treated with diuretics. He was noted that he was unable to swallow and he was having difficulties with his voice. ENT evaluated the patient the patient was seen by Dr. Street and the patient showed bilateral vocal cord hemorrhage/laryngitis. Vocal cord movement was not good and the patient was anticipated to have vocal cord dysfunction for an extended period of time. In regards to his dysphagia, it was noted that the patient had limited pharyngeal movement and there was concern towards bulbar palsy. He was worked up with an MRI. He is swallow was poor. He was aspirating and he was given a PEG tube for enteral feeding and nutritional support. His acute kidney injury improved and the creatinine on dropped significantly. He was discharged to be readmitted back in October 2018 for another urine checked infection. He was treated and he was discharged home after being treated for pneumonia/UTI. He was discharged home on oral Augmentin. Review of Systems Constitutional: Reports daytime sleepiness, Reports fatigue, Reports lethargy, Reports weakness, Reports weight loss Eyes: bilateral blurred vision, bilateral decreased vision, denies bulging eye Ears: deny: decreased hearing, ear discharge, earache, tinnitus Ears, nose, mouth and throat: Denies headache, Denies sore throat Cardiovascular: Reports decreased exercise tolerance Respiratory: Reports as per HPI Gastrointestinal: Reports as per HPI (Dysphagia and the patient is a PEG tube in place), Reports loss of appetite Genitourinary: Reports as per HPI (recurrent urine checked infection including fungalwith Aracelis glabrata) Musculoskeletal: Reports limitation of motion, Reports muscle weakness Musculoskeletal: absent: ankle stiffness, ankle swelling, as per HPI Integumentary: Reports as per HPI Neurological: Reports change in mentation, Reports gait dysfunction, Reports weakness Psychiatric: Reports as per HPI Endocrine: Reports as per HPI, Reports fatigue Hematologic/Lymphatic: Reports as per HPI Allergic/Immunologic: Reports as per HPI Past Medical History Past Medical History: GI Bleed, Hypertension, Neurologic Disorder, Pneumonia, Renal Disease Additional Past Medical History / Comment(s): Alcoholism, previous history of staphylococcal pneumonia and respiratory failure requiring intubation mechanical ventilation, dysphagia, PEG tube insertion for enteral feeding and nutritional support, chronic kidney disease, hypothyroidism, history of chronic pancreatitis , previous history of GI bleed, previous history of recurrent UTIs, previous history of cholecystitis and biliary duct calculus post-insertion and removal of biliary stent History of Any Multi-Drug Resistant Organisms: None Reported Past Surgical History: Orthopedic Surgery Additional Past Surgical History / Comment(s): cervical surgery, bilateral cataract removal with lens implants, umbilical hernia as a baby, bile duct stent, ERCP, C3-6 plate Past Anesthesia/Blood Transfusion Reactions: No Reported Reaction Past Psychological History: No Psychological Hx Reported Additional Psychological History / Comment(s): Pt resides alone in a mobile home with 3 steps that lately have been difficult for him to navigate. He ambulates with a cane or walker. He does drives. He has helpful neighbors. Smoking Status: Former smoker Past Alcohol Use History: Occasional Additional Past Alcohol Use History / Comment(s): Started smoking at age 27, smokes about a ppd. Pt states in the past he drank a fifth of whiskey a day but in 2013 cut back to a drink a day and a few drinks on weekends. He drinks beer or vodka now. Past Drug Use History: None Reported - Past Family History Father Family Medical History: Cancer Additional Family Medical History / Comment(s): Melanoma Mother Family Medical History: Cancer Additional Family Medical History / Comment(s): Breast cancer. Medications and Allergies Home Medications Medication Instructions Recorded Confirmed Type amLODIPine BESYLATE [Norvasc] 10 mg PO DAILY 06/29/18 10/06/18 History Ferrous Sulfate [Feosol] 325 mg PO DAILY #30 tab 07/04/18 10/06/18 Rx Ipratropium-Albuterol Nebulize 3 ml INHALATION RT-QID ampul.neb 07/24/18 10/06/18 Rx [Duoneb 0.5 mg-3 mg/3 ml Soln] Levothyroxine Sodium [Synthroid] 25 mcg PO DAILY #1 tab 07/24/18 10/06/18 Rx Metoprolol Tartrate [Lopressor] 50 mg PO BID tab 07/24/18 10/06/18 Rx Omeprazole [PriLOSEC] 20 mg PO AC-BID #1 cap 07/24/18 10/06/18 Rx Acetaminophen Tab [Tylenol] 650 mg PO Q6H PRN 08/31/18 10/06/18 History Ergocalciferol (Vitamin D2) 66,000 unit PO Q7D 08/31/18 10/06/18 History [Ergocalciferol] Magnesium Oxide [Mag-Ox] 400 mg PO DAILY 08/31/18 10/06/18 History Aspirin 81 mg PO DAILY chew 09/06/18 10/06/18 Rx Sodium Bicarbonate Tab 650 mg PO BID #0 09/06/18 10/06/18 Rx Epoetin Von [Procrit] 4,000 unit IJ MOWEFR 10/06/18 10/06/18 History Allergies Allergy/AdvReac Type Severity Reaction Status Date / Time No Known Allergies Allergy Verified 10/06/18 17:44 Physical Exam Vitals: Vital Signs Temp Pulse Resp BP Pulse Ox 10/07/18 13:00 90 18 104/52 99 10/07/18 12:00 98.5 F 91 15 114/91 96 10/07/18 11:47 12 10/07/18 11:31 92 10/07/18 11:27 90 10/07/18 11:00 86 12 100/51 96 10/07/18 10:00 87 20 104/52 95 10/07/18 09:00 88 16 92/59 97 10/07/18 08:00 99.0 F 85 17 94/64 95 10/07/18 07:45 88 10/07/18 07:34 86 10/07/18 06:00 85 28 H 77/55 94 L 10/07/18 05:00 86 15 90/45 93 L 10/07/18 04:00 98.0 F 88 14 88/43 96 10/07/18 03:00 88 14 76/48 97 10/07/18 02:00 91 16 92/49 93 L 10/07/18 01:30 90 16 98/50 94 L 10/07/18 01:15 91 20 98/50 95 10/07/18 01:00 92 19 97/56 84 L 10/07/18 00:45 93 18 97/56 94 L 10/07/18 00:30 19 89/59 83 L 10/07/18 00:15 102/52 10/07/18 00:00 97.9 F 91 22 102/52 95 10/06/18 23:45 89 19 102/52 95 10/06/18 23:00 87 17 100/55 98 10/06/18 22:59 17 10/06/18 22:45 97.7 F 89 18 100/55 98 10/06/18 22:30 87 14 103/80 98 10/06/18 22:15 89 15 100/54 95 10/06/18 22:13 97.2 F L 07/06/19 22:01 90 10/06/18 22:00 91 15 110/61 97 10/06/18 21:45 13 110/61 95 10/06/18 21:30 87 12 101/53 99 10/06/18 21:23 87 10/06/18 21:15 87 15 111/52 100 10/06/18 21:08 86 10/06/18 20:45 89 14 86/76 10/06/18 20:30 90 10 L 103/53 99 10/06/18 20:15 86 12 95/46 98 10/06/18 20:00 85 13 91/47 99 10/06/18 19:45 84 16 91/47 92 L 10/06/18 18:59 97.4 F L 74 18 96/49 97 10/06/18 18:22 74 18 95/46 97 10/06/18 18:19 93.5 F L 10/06/18 18:15 73 13 95/46 94 L 10/06/18 17:45 73 15 96/47 100 10/06/18 17:30 74 13 90/48 100 10/06/18 17:05 95.2 F L 10/06/18 17:00 94/49 100 10/06/18 16:58 95/52 99 10/06/18 16:43 72 18 95/52 99 Intake and Output 10/06/18 10/07/18 10/07/18 22:59 06:59 14:59 Intake Total 800 1100 Output Total 125 375 485 Balance -125 425 615 Intake: IV 800 1100 Dextrose 5% in Water 1, 800 1000 000 ml @ 200 mls/hr IV . Q5H45M ANTHONY with Sodium Bicarb (1 Meq/ml) 150 ml Rx#:[id number] Piperacillin-Tazobactam 3 100 .375 gm In Sodium Chloride 0.9% 100 ml @ 25 mls/hr IVPB Q12H ANTHONY Rx# :[id number] Output: Urine 125 375 485 Uretheral (Zhu) 125 Other: Voiding Method Indwelling Catheter Indwelling Catheter Weight 47 kg 58 kg 58 kg GENERAL EXAM: Lethargic, obtunded 68-year-old white male on oxygen at 2 L per nasal cannula HEAD: Normocephalic/atraumatic. EYES: Normal reaction of pupils, equal size. Conjunctiva pink, sclera white. NOSE: Clear with pink turbinates. THROAT: No erythema or exudates. NECK: No masses, no JVD, no thyroid enlargement, no adenopathy. CHEST: No chest wall deformity. Symmetrical expansion. LUNGS: Breath sounds bilaterally along with few scattered expiratory wheezes and rhonchi heard throughout the lung yi CVS: Regular rate and rhythm, normal S1 and S2, no gallops, no murmurs, no rubs ABDOMEN: Soft, nontender. No hepatosplenomegaly, normal bowel sounds, no guarding or rigidity. EXTREMITIES: No clubbing, no edema, no cyanosis, 1+ pulses and upper and lower extremities. MUSCULOSKELETAL: Muscle strength and tone normal. SPINE: No scoliosis or deformity SKIN: No rashes CENTRAL NERVOUS SYSTEM: No focal deficits, tone is normal in all 4 extremities. Diminished level of consciousness, withdraws to painful stimulation, occasional response to verbal stimulation. PSYCHIATRIC: Able to obtain a psychiatric evaluation due to the above-mentioned condition. Results - Laboratory Findings CBC and BMP: 10/07/18 04:36 10/07/18 10:05 PT/INR, D-dimer PT 10.7 sec (9.0-12.0) 10/06/18 17:17 INR 1.0 (<1.2) 10/06/18 17:17 Abnormal lab findings: Abnormal Labs 10/06/18 10/06/18 10/06/18 17:17 17:17 17:17 WBC 24.5 H RBC 2.94 L Hgb 8.3 L Hct 28.1 L MCHC 29.7 L RDW 21.3 H Plt Count 512 H Neutrophils # 22.2 H Lymphocytes # APTT 30.7 H Sodium Potassium 7.3 H* Chloride 115 H Carbon Dioxide 5 L* BUN 117 H* Creatinine 7.27 H* Glucose Calcium 7.9 L Phosphorus 12.5 H* Magnesium 2.4 H ALT 10 L Alkaline Phosphatase 158 H Total Protein Albumin 3.1 L Urine Protein Urine Ketones Urine Blood Ur Leukocyte Esterase Urine WBC Urine WBC Clumps Urine Bacteria 10/06/18 10/07/18 10/07/18 19:45 01:18 01:18 WBC RBC Hgb Hct MCHC RDW Plt Count Neutrophils # Lymphocytes # APTT Sodium 147 H Potassium Chloride 121 H Carbon Dioxide 7 L* BUN 99 H Creatinine 5.94 H Glucose 63 L Calcium 7.4 L Phosphorus 9.2 H* Magnesium ALT Alkaline Phosphatase Total Protein Albumin Urine Protein 2+ H Urine Ketones Trace H Urine Blood Trace H Ur Leukocyte Esterase Large H Urine WBC >182 H Urine WBC Clumps Many H Urine Bacteria Occasional H 10/07/18 10/07/18 10/07/18 04:36 04:36 10:05 WBC 23.6 H RBC 2.52 L Hgb 7.0 L Hct 24.3 L MCHC 28.8 L RDW 21.9 H Plt Count Neutrophils # 22.4 H Lymphocytes # 0.3 L APTT Sodium 147 H 148 H Potassium Chloride 119 H 117 H Carbon Dioxide 6 L* 11 L BUN 99 H 101 H* Creatinine 5.98 H 5.81 H Glucose 181 H Calcium 7.1 L 6.9 L Phosphorus Magnesium ALT 12 L Alkaline Phosphatase Total Protein 5.3 L Albumin 2.4 L Urine Protein Urine Ketones Urine Blood Ur Leukocyte Esterase Urine WBC Urine WBC Clumps Urine Bacteria - Diagnostic Findings Chest x-ray: image reviewed Assessment and Plan Plan: 1 sepsis secondary to an acute urinary tract infection. Urine was cloudy and purulent and abnormal on the UA and the cultures still pending for now. Previous cultures from last hospitalization had shown Aracelis glabrata. There is a left lower lobe infiltrate yet pneumonia is highly doubtful. 2 leukocytosis 3 acute kidney injury on top of chronic stage III kidney disease, creatinine was at 7.27 minutes improving with fluid resuscitation and the patient is currently on a bicarb infusion 4 acute dehydration 5 hyperchloremic hypernatremia 6 metabolic acidosis with a combination of anion and non-anion gap type. Anion gap was only 19 at time of admission and his not related to lactic acidosis. 7. Hyperphosphatemia improving 8 chronic pancreatitis 9 history of alcoholism 10 chronic normocytic anemia 11 previous history of ventilator dependent respiratory failure secondary to MSSA pneumonia 12 chronic dysphagia secondary to vocal cord injury in addition to possibly ce ntral/neurologic deficits affecting the patient's swallowing the patient has a PEG tube in place, consider underlying neurodegenerative disorder 13 previous history of GI bleed 14 cerebral atrophy along with chronic small vessel ischemia in addition to cervical spine multilevel fusion based on the CAT scan of the head and spine Plan Continue bicarb infusion. The findings on the case. Monitor electrolytes. Monitor creatinine. Monitor renal function. Clinically improving. Producing urine output. No pressors for now. Continue same antibiotic coverage. Consider an underlying fungal UTI. Consult ID. We'll continue to follow. Establish also a CODE STATUS. Routine chest x-ray to be repeated in a.m.
[2018-10-07] MEDS ORDERED: VANCOMYCIN 1,000 MG in SODIUM CHLORIDE 0.9% 250 ML IVPB ONE (14:00)
[2018-10-07 14:23] LABS: ABG Base Excess -7.5 mmol/L; ABG HCO3 18 mmol/L (21-25); ABG Oxygen Saturation 82.8 % (94-97); ABG PCO2 34 mmHg (35-45); ABG PH 7.34 (7.35-7.45); ABG TCO2 19 mmol/L (19-24); Allen Test Performed? Yes
[2018-10-07 14:26] LABS: ABG PO2 47 mmHg (83-108)
[2018-10-07] MEDS ORDERED: CISATRACURIUM 2 MG/ML 5 ML VIAL IV ONE (15:10)
--- NOTE | 2018-10-07 15:30 | XR ---
EXAMINATION TYPE: XR chest 1V portable DATE OF EXAM: 10/07/2018 COMPARISON: Yesterday HISTORY: Short of breath TECHNIQUE: Single frontal view of the chest is obtained. FINDINGS: There is airspace consolidation in the left lower lobe. There is also some infiltrate righ t lower lobe. There is pulmonary vascular congestion. There is blunting of the costophrenic angles. T here are chest leads. IMPRESSION: Bilateral pneumonia increased compared to yesterday. Heart failure is probably present.
--- NOTE | 2018-10-07 15:37 | XR ---
EXAMINATION TYPE: XR chest 1V portable DATE OF EXAM: 10/07/2018 COMPARISON: Today HISTORY: Check tube placement TECHNIQUE: Single frontal view of the chest is obtained. FINDINGS: Endotracheal tube is 6.5 cm from the brett. There is airspace consolidation left lower lo be. Right lung is fairly clear. There are chest leads. Heart and mediastinum are shifted slightly to the left side. IMPRESSION: There is consolidation and atelectasis left lower lobe. Shift of heart to the left side is slightly more than exam 20 minutes ago.
--- NOTE | 2018-10-07 15:40 | XR ---
EXAMINATION TYPE: XR chest 1V portable DATE OF EXAM: 10/07/2018 COMPARISON: Today HISTORY: Check tube placement TECHNIQUE: Single frontal view of the chest is obtained. FINDINGS: Endotracheal tube is 6 cm from the brett. There is extensive airspace consolidation left lower lobe. There is no heart failure. Heart size is normal. Heart deviated slightly to the left side . IMPRESSION: Left lower lobe pneumonia and atelectasis.
[2018-10-07 15:46] LABS: ABG Base Excess -6.4 mmol/L; ABG HCO3 19 mmol/L (21-25); ABG Oxygen Saturation 98.9 % (94-97); ABG PCO2 32 mmHg (35-45); ABG PH 7.38 (7.35-7.45); ABG PO2 >400 mmHg (83-108); ABG TCO2 20 mmol/L (19-24); Allen Test Performed? Yes
[2018-10-07] MEDS: PROPOFOL 1,000 MG in EMPTY BAG 1 BAG IV SCH ×2 (16:03→19:53)
[2018-10-07 16:14] LABS: Albumin 2.3 g/dL (3.5-5.0); Calcium 6.5 mg/dL (8.4-10.2); Potassium 3.5 mmol/L (3.5-5.1); Total Bilirubin 0.3 mg/dL (0.2-1.3); Total Protein 5.2 g/dL (6.3-8.2)
[2018-10-07 16:21] LABS: Anisocytosis Moderate; HCT 21.6 % (39.0-53.0); Hypochromasia Marked; MCH 27.8 pg (25.0-35.0); MCHC 31.4 g/dL (31.0-37.0); MCV 88.5 fL (80.0-100.0); Mean Platelet Volume 7.5; Platelet Count 350 k/uL (150-450); Poikilocytosis Moderate; RBC 2.44 m/uL (4.30-5.90); RDW 22.1 % (11.5-15.5); WBC 18.8 k/uL (3.8-10.6)
[2018-10-07 16:43] LABS: HGB 6.8 gm/dL (13.0-17.5)
[2018-10-07] MEDS ORDERED: POTASSIUM CHLORIDE 20 MEQ in WATER FOR INJECTION 1 100ML.BAG IVPB ONE (17:49)
[2018-10-07] MEDS: CHLORHEXIDINE GLUCONATE 15 ML CUP MUCOUS MEM SCH (20:26)
[2018-10-07] MEDS: METOPROLOL TARTRATE 50 MG TAB PO SCH (20:26)
[2018-10-07] MEDS: FLUCONAZOLE IN NACL,ISO-OSM 100 MG in SALINE 1 50ML.BAG IVPB SCH (20:30)
[2018-10-07 21:14] LABS: Anisocytosis Moderate; HCT 22.2 % (39.0-53.0); HGB 7.1 gm/dL (13.0-17.5); Hypochromasia Marked; MCH 27.8 pg (25.0-35.0); MCHC 31.8 g/dL (31.0-37.0); MCV 87.3 fL (80.0-100.0); Mean Platelet Volume 8.2; Platelet Count 306 k/uL (150-450); Poikilocytosis Moderate; RBC 2.54 m/uL (4.30-5.90); WBC 17.2 k/uL (3.8-10.6)
[2018-10-07 21:29] LABS: Potassium 3.8 mmol/L (3.5-5.1)
[2018-10-07 21:39] LABS: Calcium 6.1 mg/dL (8.4-10.2)
[2018-10-07 22:33] LABS: Ethanol Negative (Negative); Isopropanol Negative (Negative)
--- NOTE | 2018-10-07 22:50 | P.CONS ---
History of Present Illness - Reason for Consult Consult date: 10/07/18 Sepsis Requesting physician: Charlotte Medel - Chief Complaint Found unresponsive by the neighbor - History of Present Illness Patient is a 68 year male who was recently admitted to this facility subsequently discharged to rehab. The patient had been discharged from rehab 2 days ago patient was noticed to be unresponsive on the ground by the neighbor for which EMS was called and the patient was noticed to be hypothermic and hypotensive with elevated white count patient did have a respiratory distress and admitted intubated to protect the airways, patient has significant purulent tracheal secretion of time of intubation as per the information provided by the RN he was also and has significantly cloudy urine patient has received fluid boluses and has been started on broad-spectrum antibiotics, Zosyn and Diflucan infectious disease was consulted for further recommendation regarding antibiotic most information has been obtained talking to the nursing staff and review of his chart as patient is currently intubated on the vent and unable to provide an y reliable history Review of Systems Positive point has been mentioned in HPI complete review could not be obtained Past Medical History Past Medical History: GI Bleed, Hypertension, Neurologic Disorder, Pneumonia, Renal Disease Additional Past Medical History / Comment(s): Hx calculus of bile duct, acute cholecystitis, pancreatitis. History of Any Multi-Drug Resistant Organisms: None Reported Past Surgical History: Orthopedic Surgery Additional Past Surgical History / Comment(s): cervical surgery, bilateral cataract removal with lens implants, umbilical hernia as a baby, bile duct stent, ERCP, C3-6 plate Past Anesthesia/Blood Transfusion Reactions: No Reported Reaction Past Psychological History: No Psychological Hx Reported Smoking Status: Former smoker Past Alcohol Use History: Occasional Past Drug Use History: None Reported - Past Family History Father Family Medical History: Cancer Additional Family Medical History / Comment(s): Melanoma Mother Family Medical History: Cancer Additional Family Medical History / Comment(s): Breast cancer. Medications and Allergies Home Medications Medication Instructions Recorded Confirmed Type amLODIPine BESYLATE [Norvasc] 10 mg PO DAILY 06/29/18 10/06/18 History Ferrous Sulfate [Feosol] 325 mg PO DAILY #30 tab 07/04/18 10/06/18 Rx Ipratropium-Albuterol Nebulize 3 ml INHALATION RT-QID ampul.neb 07/24/18 10/06/18 Rx [Duoneb 0.5 mg-3 mg/3 ml Soln] Levothyroxine Sodium [Synthroid] 25 mcg PO DAILY #1 tab 07/24/18 10/06/18 Rx Metoprolol Tartrate [Lopressor] 50 mg PO BID tab 07/24/18 10/06/18 Rx Omeprazole [PriLOSEC] 20 mg PO AC-BID #1 cap 07/24/18 10/06/18 Rx Acetaminophen Tab [Tylenol] 650 mg PO Q6H PRN 08/31/18 10/06/18 History Ergocalciferol (Vitamin D2) 66,000 unit PO Q7D 08/31/18 10/06/18 History [Ergocalciferol] Magnesium Oxide [Mag-Ox] 400 mg PO DAILY 08/31/18 10/06/18 History Aspirin 81 mg PO DAILY chew 09/06/18 10/06/18 Rx Sodium Bicarbonate Tab 650 mg PO BID #0 09/06/18 10/06/18 Rx Epoetin Von [Procrit] 4,000 unit IJ MOWEFR 10/06/18 10/06/18 History Allergies Allergy/AdvReac Type Severity Reaction Status Date / Time No Known Allergies Allergy Verified 10/06/18 17:44 Physical Exam Vitals: Vital Signs Temp Pulse Resp BP Pulse Ox 10/07/18 22:00 71 25 H 98 10/07/18 21:00 82 24 97 10/07/18 20:00 98.1 F 82 24 99 10/07/18 19:07 81 10/07/18 19:00 81 24 99 10/07/18 18:57 82 10/07/18 18:00 84 24 99 10/07/18 17:00 85 24 99 10/07/18 16:24 86 10/07/18 16:14 86 10/07/18 16:00 86 24 100 10/07/18 15:00 81 24 106/50 98 10/07/18 14:00 93 20 107/54 79 L 10/07/18 13:00 90 18 104/52 99 10/07/18 12:00 98.5 F 91 15 114/91 96 10/07/18 11:47 12 10/07/18 11:31 92 10/07/18 11:27 90 10/07/18 11:00 86 12 100/51 96 10/07/18 10:00 87 20 104/52 95 10/07/18 09:00 88 16 92/59 97 10/07/18 08:00 99.0 F 85 17 94/64 95 10/07/18 07:45 88 10/07/18 07:34 86 10/07/18 06:00 85 28 H 77/55 94 L 10/07/18 05:00 86 15 90/45 93 L 10/07/18 04:00 98.0 F 88 14 88/43 96 10/07/18 03:00 88 14 76/48 97 10/07/18 02:00 91 16 92/49 93 L 10/07/18 01:30 90 16 98/50 94 L 10/07/18 01:15 91 20 98/50 95 10/07/18 01:00 92 19 97/56 84 L 10/07/18 00:45 93 18 97/56 94 L 10/07/18 00:30 19 89/59 83 L 10/07/18 00:15 102/52 10/07/18 00:00 97.9 F 91 22 102/52 95 10/06/18 23:45 89 19 102/52 95 10/06/18 23:00 87 17 100/55 98 10/06/18 22:59 17 10/06/18 22:45 97.7 F 89 18 100/55 98 10/06/18 22:30 87 14 103/80 98 Intake and Output 10/07/18 10/07/18 10/07/18 06:59 14:59 22:59 Intake Total 800 1300 1610.02 Output Total 375 585 514 Balance 977 898 5761.02 Intake: IV 800 1300 1500 Dextrose 5% in Water 1, 800 1200 1000 000 ml @ 100 mls/hr IV . [id number] ANTHONY with Sodium Bicarb (1 Meq/ml) 150 ml Rx#:[id number] Fluconazole in NaCl,Iso- 50 Osm 100 mg In Saline 1 50ml.bag @ 50 mls/hr IVPB Q24H ANTHONY Rx#:[id number] Piperacillin-Tazobactam 3 100 100 .375 gm In Sodium Chloride 0.9% 100 ml @ 25 mls/hr IVPB Q12H ANTHONY Rx# :[id number] Potassium Chloride 20 meq 100 In Water For Injection 1 100ml.bag @ 50 mls/hr IVPB ONCE ONE Rx#: [id number] Vancomycin 1,000 mg In 250 Sodium Chloride 0.9% 250 ml @ 125 mls/hr IVPB ONCE ONE Rx#:[id number] Intake, IV Titration 40.02 Amount Propofol 1,000 mg In 40.02 Empty Bag 1 bag @ Titrate IV .Q0M [facility], 1928–1983 Rx#: [id number] Tube Feeding 40 Other 30 Output: Urine 375 585 514 Other: Voiding Method Indwelling Catheter Indwelling Catheter Indwelling Catheter Weight 58 kg 58 kg ABP, PAP, CO, CI - Last 8 Hours Arterial Blood Pressure 119/36 Arterial Blood Pressure 125/38 Arterial Blood Pressure 124/39 Arterial Blood Pressure 123/41 Arterial Blood Pressure 128/42 Arterial Blood Pressure 124/41 Arterial Blood Pressure 131/44 GENERAL DESCRIPTION: An elderly male intubated on the vent No tachypnea or accessory muscle of respiration use. HEENT: Shows Pallor , no scleral icterus. Patient is orally intubated. Limited examination of oral cavity NECK: Trachea central, no thyromegaly. LUNGS: Unlabored breathing. Decreased breath sound at the base No wheeze or crackle. HEART: S1, S2, regular rate and rhythm. No loud murmur ABDOMEN: Soft, no tenderness , guarding or rigidity, no organomegaly EXTREMITIES: No edema of feet. SKIN: No rash, no masses palpable. NEUROLOGICAL: The patient is sedated on the vent Results CBC & Chem 7: 10/07/18 21:10 10/07/18 21:10 Labs: Abnormal Lab Results - Last 24 Hours (Table) 10/07/18 10/07/18 10/07/18 Range/Units 01:18 01:18 04:36 WBC 23.6 H (3.8-10.6) k/uL RBC 2.52 L (4.30-5.90) m/uL Hgb 7.0 L (13.0-17.5) gm/dL Hct 24.3 L (39.0-53.0) % MCHC 28.8 L (31.0-37.0) g/dL RDW 21.9 H (11.5-15.5) % Neutrophils # 22.4 H (1.3-7.7) k/uL Lymphocytes # 0.3 L (1.0-4.8) k/uL ABG pH (7.35-7.45) ABG pCO2 (35-45) mmHg ABG pO2 (83-108) mmHg ABG HCO3 (21-25) mmol/L ABG O2 Saturation (94-97) % Sodium 147 H (137-145) mmol/L Chloride 121 H (98-107) mmol/L Carbon Dioxide 7 L* (22-30) mmol/L BUN 99 H (9-20) mg/dL Creatinine 5.94 H (0.66-1.25) mg/dL Glucose 63 L (74-99) mg/dL Calcium 7.4 L (8.4-10.2) mg/dL Phosphorus 9.2 H* (2.5-4.5) mg/dL ALT (21-72) U/L Total Protein (6.3-8.2) g/dL Albumin (3.5-5.0) g/dL 10/07/18 10/07/18 10/07/18 Range/Units 04:36 10:05 14:21 WBC (3.8-10.6) k/uL RBC (4.30-5.90) m/uL Hgb (13.0-17.5) gm/dL Hct (39.0-53.0) % MCHC (31.0-37.0) g/dL RDW (11.5-15.5) % Neutrophils # (1.3-7.7) k/uL Lymphocytes # (1.0-4.8) k/uL ABG pH 7.34 L (7.35-7.45) ABG pCO2 34 L (35-45) mmHg ABG pO2 47 L* (83-108) mmHg ABG HCO3 18 L (21-25) mmol/L ABG O2 Saturation 82.8 L (94-97) % Sodium 147 H 148 H (137-145) mmol/L Chloride 119 H 117 H (98-107) mmol/L Carbon Dioxide 6 L* 11 L (22-30) mmol/L BUN 99 H 101 H* (9-20) mg/dL Creatinine 5.98 H 5.81 H (0.66-1.25) mg/dL Glucose 181 H (74-99) mg/dL Calcium 7.1 L 6.9 L (8.4-10.2) mg/dL Phosphorus (2.5-4.5) mg/dL ALT 12 L (21-72) U/L Total Protein 5.3 L (6.3-8.2) g/dL Albumin 2.4 L (3.5-5.0) g/dL 10/07/18 10/07/18 10/07/18 Range/Units 15:43 15:47 15:47 WBC 18.8 H (3.8-10.6) k/uL RBC 2.44 L (4.30-5.90) m/uL Hgb 6.8 L* (13.0-17.5) gm/dL Hct 21.6 L (39.0-53.0) % MCHC (31.0-37.0) g/dL RDW 22.1 H (11.5-15.5) % Neutrophils # (1.3-7.7) k/uL Lymphocytes # (1.0-4.8) k/uL ABG pH (7.35-7.45) ABG pCO2 32 L (35-45) mmHg ABG pO2 >400 H (83-108) mmHg ABG HCO3 19 L (21-25) mmol/L ABG O2 Saturation 98.9 H (94-97) % Sodium 149 H (137-145) mmol/L Chloride 113 H (98-107) mmol/L Carbon Dioxide 18 L (22-30) mmol/L BUN 98 H (9-20) mg/dL Creatinine 5.34 H (0.66-1.25) mg/dL Glucose 198 H (74-99) mg/dL Calcium 6.5 L (8.4-10.2) mg/dL Phosphorus (2.5-4.5) mg/dL ALT (21-72) U/L Total Protein 5.2 L (6.3-8.2) g/dL Albumin 2.3 L (3.5-5.0) g/dL 10/07/18 10/07/18 Range/Units 21:10 21:10 WBC 17.2 H (3.8-10.6) k/uL RBC 2.54 L (4.30-5.90) m/uL Hgb 7.1 L (13.0-17.5) gm/dL Hct 22.2 L (39.0-53.0) % MCHC (31.0-37.0) g/dL RDW 21.0 H (11.5-15.5) % Neutrophils # (1.3-7.7) k/uL Lymphocytes # (1.0-4.8) k/uL ABG pH (7.35-7.45) ABG pCO2 (35-45) mmHg ABG pO2 (83-108) mmHg ABG HCO3 (21-25) mmol/L ABG O2 Saturation (94-97) % Sodium 146 H (137-145) mmol/L Chloride 112 H (98-107) mmol/L Carbon Dioxide 21 L (22-30) mmol/L BUN 95 H (9-20) mg/dL Creatinine 5.24 H (0.66-1.25) mg/dL Glucose 196 H (74-99) mg/dL Calcium 6.1 L* (8.4-10.2) mg/dL Phosphorus (2.5-4.5) mg/dL ALT (21-72) U/L Total Protein (6.3-8.2) g/dL Albumin (3.5-5.0) g/dL Microbiology - Last 24 Hours (Table) 10/06/18 19:45 Urine Culture - Preliminary Urine,Catheterized Assessment and Plan Assessment: 1-patient admitted hospital with sepsis in this patient who did have hypothermia hypotension tachycardia and elevated white count, and this patient has been found unresponsive on the floor with significant purulent secretion at the time of intubation and a positive UA source is likely combination of aspiration pneumonia and a UTI in this patient has been recently admitted to hospital will need to cover for resistant gram-negative such as Pseudomonas Plan: 1-we'll try to obtained sputum for Gram stain and culture 2-urine and blood cultures will be followed 3-Zosyn 3.375 grams every 12 hours 4-IV fluid we will follow up on clinical condition and cultures to further adjust medication if needed Thank you for this consultation will follow this patient along with you Time with Patient: Greater than 30
[2018-10-07] MEDS ORDERED: CALCIUM GLUCONATE 2 GM in SODIUM CHLORIDE 0.9% 100 ML IVPB ONE (23:01)
[2018-10-07 23:53] LABS: Glucose,Whole Blood 190 mg/dL (75-99)
[2018-10-07] MEDS: INSULIN ASPART (NovoLOG) 100 UNIT/ML VIAL SQ SCH (23:54)
--- NOTE | 2018-10-08 00:02 | PCN ---
PROCEDURE NOTE ENDOTRACHEAL INTUBATION: INDICATION: Respiratory compromise. A time-out was completed verifying correct patient, procedure, site, positioning, and implant(s) or special equipment if applicable. The patient was positioned appropriately and using a #4 MAC blade, #8 orotracheal tube was placed under direct laryngoscopy. The tube was anchored at 22 cm at the teeth. Correct placement was confirmed by presence of bilateral breath sounds without air sounds in the abdomen on auscultation. An end-tidal CO2 monitor was also used to confirm tracheal placement of the ET tube. A chest x-ray was ordered to assess for pneumothorax and verify endotracheal tube placement. The patient tolerated the procedure well and there were no complications. MMODL / IJN: [id number] /
--- NOTE | 2018-10-08 00:02 | PCN ---
PROCEDURE NOTE TRIPLE LUMEN CATHETER PLACEMENT: Indication Hemodynamic monitoring/Intravenous access. A time-out was completed verifying correct patient, procedure, site, positioning, and implant(s) or special equipment if applicable. The patient was placed in a dependent position appropriate for triple lumen catheter placement based on the vein to be cannulated. The patient's right groin was prepped and draped in sterile fashion. 1% Lidocaine was used to anesthetize the surrounding skin area. A triple lumen 9F Cordis catheter was introduced into the common femoral vein using Seldinger technique. The catheter was threaded smoothly over the guide wire and appropriate blood return was obtained. Each lumen of the catheter was evacuated of air and flushed with sterile saline. The catheter was then sutured in place to the skin and a sterile dressing applied. Perfusion to the extremity distal to the point of catheter insertion was checked and found to be adequate. No complications. MMODL / IJN: [id number] /
--- NOTE | 2018-10-08 00:08 | PCN ---
PROCEDURE NOTE ARTERIAL LINE PLACEMENT: Indications: Hemodynamic monitoring. PREOP DIAGNOSES: Respiratory failure. Left lower lobe pneumonia. POSTOP DIAGNOSES: Respiratory failure. Left lower lobe pneumonia. A time-out was completed verifying correct patient, procedure, site, positioning, and implant(s) or special equipment if applicable. Andreas's test was performed to ensure adequate perfusion. The patient's right wrist was prepped and draped in sterile fashion. 1% Lidocaine was used to anesthetize the area. An 18G Arrow arterial line was introduced into the radial artery. The catheter was threaded over the guide wire and the needle was removed with appropriate pulsatile blood return. Blood loss was minimal. The catheter was then sutured in place to the skin and a sterile dressing applied. Perfusion to the extremity distal to the point of catheter insertion was checked and found to be adequate. The patient tolerated the procedure well and there were no complications. MMODL / IJN: [id number] /
[2018-10-08 04:26] LABS: Anisocytosis Moderate; Basophils % (A) 0 %; Eosinophils # (A) 0.2 k/uL (0-0.7); Eosinophils % (A) 1 %; HCT 20.6 % (39.0-53.0); Hypochromasia Moderate; Lymphocytes # (A) 0.5 k/uL (1.0-4.8); Lymphocytes % (A) 4 %; MCH 27.2 pg (25.0-35.0); MCHC 31.4 g/dL (31.0-37.0); MCV 86.7 fL (80.0-100.0); Mean Platelet Volume 8.8; Monocytes # (A) 0.3 k/uL (0-1.0); Monocytes % (A) 3 %; Neutrophils # (A) 12.4 k/uL (1.3-7.7); Neutrophils % (A) 91 %; Platelet Count 247 k/uL (150-450); Poikilocytosis Moderate; RBC 2.38 m/uL (4.30-5.90); RDW 21.1 % (11.5-15.5); WBC 13.6 k/uL (3.8-10.6)
[2018-10-08 04:33] LABS: ABG Base Excess -1.3 mmol/L; ABG HCO3 24 mmol/L (21-25); ABG Oxygen Saturation 98.2 % (94-97); ABG PCO2 41 mmHg (35-45); ABG PH 7.37 (7.35-7.45); ABG PO2 177 mmHg (83-108); ABG TCO2 25 mmol/L (19-24)
[2018-10-08 04:41] LABS: HGB 6.5 gm/dL (13.0-17.5)
[2018-10-08 04:45] LABS: Potassium 3.8 mmol/L (3.5-5.1)
[2018-10-08 04:48] LABS: Allen Test Performed? no
[2018-10-08 04:50] LABS: Vancomycin,Random 20.9 ug/mL
[2018-10-08 04:51] LABS: Calcium 6.5 mg/dL (8.4-10.2)
[2018-10-08 06:03] LABS: Glucose,Whole Blood 89 mg/dL (75-99)
[2018-10-08] MEDS: INSULIN ASPART (NovoLOG) 100 UNIT/ML VIAL SQ SCH ×4 (06:24→23:47)
[2018-10-08] MEDS: LEVOTHYROXINE 25 MCG TAB PO SCH (06:27)
[2018-10-08] MEDS: DEXTROSE 5% IN WATER 1,000 ML with SODIUM BICARB (1 MEQ/ML) 150 ML IV SCH (06:27)
[2018-10-08] MEDS: IPRATROPIUM-ALBUTEROL 3 ML NEB INHALATION SCH ×4 (07:38→20:56)
[2018-10-08] MEDS ORDERED: SODIUM CHLORIDE 0.45% 1,000 ML IV ONE (07:40)
--- NOTE | 2018-10-08 07:40 | XR ---
EXAMINATION TYPE: XR chest 1V portable DATE OF EXAM: 10/08/2018 Comparison: 10/07/2018 Clinical History: 68-year-old male tube placement Findings: Right subclavian CVC catheter appears to have been removed in the interval. Within the left lower jhon g persist but show some improvement from prior. Old surgical neck fracture deformity proximal left hu merus. Impression: COPD with a persistent but improving left basilar pneumonia.
[2018-10-08] MEDS: amLODIPine 10 MG TAB PO SCH (08:16)
[2018-10-08] MEDS: POTASSIUM CHLORIDE ER 20 MEQ TAB.ER PO SCH ×3 (09:30→14:12)
[2018-10-08] MEDS: PIPERACILLIN-TAZOBACTAM 3.375 GM in SODIUM CHLORIDE 0.9% 100 ML IVPB SCH ×2 (10:14→20:19)
[2018-10-08] MEDS: METOPROLOL TARTRATE 50 MG TAB PO SCH ×2 (10:14→20:19)
[2018-10-08] MEDS: CHLORHEXIDINE GLUCONATE 15 ML CUP MUCOUS MEM SCH ×2 (10:15→20:19)
[2018-10-08] MEDS: PANTOPRAZOLE 40 MG/10 ML VIAL IV SCH (10:15)
[2018-10-08] MEDS: FERROUS SULFATE 325 MG TAB PO SCH (10:15)
--- NOTE | 2018-10-08 10:55 | P.PN ---
Subjective Progress Note Date: 10/08/18 Principal diagnosis: Acute sepsis secondary to urinary tract infection and left lower lobe pneumonia. A 68-year-old male patient with extensive medical problems and comorbidities, who was recently discharged home and he was being followed up by a friend and few days later he was found on the ground confused altered weak and he was brought into the hospital where he was found to be hypotensive, hypothermic with temperature of 93.5 and having some leukocytosis with hypernatremia and the sodium ranging 147 and 148 and a creatinine of 5.9 and he was quite acidotic with serum bicarb level was as low as 6 and anion gap of 22. Lactic acid was nonelevated. The patient's blood sugar was at 63. 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 Chest x-ray showed some limited infiltration of the left lung base. CAT scan of the abdomen was done and it showed no significant acute abnormalities in the abdomen other than chronic pancreatitis-type of picture with extensive pancreatic calcification. The patient was given IV fluids, bicarb infusion and the patient was covered with a combination of Zosyn and vancomycin and Diflucan. Currently the patient is in the intensive care unit. Laying comfortably in bed. Urine was quite cloudy and dirty at time of admission and this has improved. The patient is not requiring any pressors at this point in time. This bonding and answering questions appropriately. Note that the patient has a PEG tube in place. This was placed on previous admission due to difficulties in swallowing.In terms of his previous history, this 68-year-old male patient was in our intensive care unit back in July 2018. He was in for septic shock related complications related to staph pneumonia and an same time he had UTI, metabolic acidosis and acute kidney injury. He has previous history of alcoholism and previous history of pancreatitis and previous history of ERCP with insertion of a biliary stent. The patient had staph pneumonia and MSSA was cultured in his sputum. He was intubated back in 06/30/2018 and he was successfully extubated on 07/03/2018. He required BiPAP for some point. He had CHF and bilateral pleural effusion. He was treated with diuretics. He was noted that he was unable to swallow and he was having difficulties with his voice. ENT evaluated the patient the patient was seen by Dr. Street and the patient showed bilateral vocal cord hemorrhage/laryngitis. Vocal cord movement was not good and the patient was anticipated to have vocal cord dysfunction for an extended period of time. In regards to his dysphagia, it was noted that the patient had limited pharyngeal movement and there was concern towards bulbar palsy. He was worked up with an MRI. He is swallow was poor. He was aspirating and he was given a PEG tube for enteral feeding and nutritional support. His acute kidney injury improved and the creatinine on dropped significantly. He was discharged to be readmitted back in October 2018 for another urine checked infection. He was treated and he was discharged home after being treated for pneumonia/UTI. He was discharged home on oral Augmentin. Patient was evaluated today in the intensive care unit on 10/08/2018, remains on mechanical ventilation, patient is on the following ventilator settings assist control rate of 24 tidal volume of 450 FiO2 of 50% and PEEP was done but I cut it down to 8. Patient is off bicarb drip, his IV fluid is 0.45 at 100 mL/h, he is not requiring any pressors, remains on antibiotics in the form of Zosyn and he is also on Diflucan. Propofol is at 45 mcg/kg/m. Again no pressors and no inotropes. His labs showed low hemoglobin of 6.5 hence I will recommend a unit of packed RBCs to be given, his ABG this morning showed a pO2 of 177 pCO2 of 41 pH of 7.37 hence I plan to cut down his PEEP to 5. His electrolytes are normal BUN however is 95 creatinine 4.99, improving considering his creatinine on admission was 7.27. Cultures including blood and urine and sputum are pending. Meds were all reviewed patient is on the when up, Norvasc, fluconazole, insulin as per protocol, levothyroxine, metoprolol, Protonix, Zosyn, propofol, chest x- ray showed COPD and left basilar pneumonia quite extensive. Nutrition-alvarez, the patient will be started on enteral feeding/Nepro today. Objective - Vital Signs Vital signs: Vital Signs Temp 98.5 F 10/08/18 08:00 Pulse 81 10/08/18 10:00 Resp 24 10/08/18 10:00 BP 106/50 10/07/18 15:00 Pulse Ox 97 10/08/18 10:00 Intake & Output 10/07/18 10/08/18 10/08/18 18:59 06:59 18:59 Intake Total 2250 1673.02 772 Output Total 900 581 205 Balance 1350 1092.02 567 Weight 58 kg 57.5 kg Intake: IV 2250 1383 512 Dextrose 5% in Water 1, 1800 1200 100 000 ml @ 100 mls/hr IV . [id number] ANTHONY with Sodium Bicarb (1 Meq/ml) 150 ml Rx#:[id number] Fluconazole in NaCl,Iso- 50 Osm 100 mg In Saline 1 50ml.bag @ 50 mls/hr IVPB Q24H [facility] Rx#:[id number] Piperacillin-Tazobactam 3 100 100 100 .375 gm In Sodium Chloride 0.9% 100 ml @ 25 mls/hr IVPB Q12H [facility] Rx# :[id number] Potassium Chloride 20 meq 100 In Water For Injection 1 100ml.bag @ 50 mls/hr IVPB ONCE ONE Rx#: [id number] Pressure bag 0.9NS 33 12 Sodium Chloride 0.45% 1, 300 000 ml @ 100 mls/hr IV . Q10H ONE Rx#:[id number] Vancomycin 1,000 mg In 250 Sodium Chloride 0.9% 250 ml @ 125 mls/hr IVPB ONCE ONE Rx#:[id number] Intake, IV Titration 0 40.02 100 Amount Propofol 1,000 mg In 0 40.02 100 Empty Bag 1 bag @ Titrate IV .Q0M [facility] Rx#: [id number] Tube Feeding 160 130 Other 90 30 Output: Urine 900 581 205 Other: Voiding Method Indwelling Catheter Indwelling Catheter ABP, PAP, CO, CI - Last Documented Arterial Blood Pressure 102/37 - Exam GENERAL EXAM: Revealed 68-year-old white male on mechanical ventilation, sedated, on propofol. HEAD: Normocephalic/atraumatic. EYES: PERRLA, EOMI, no icterus. NOSE: Clear with pink turbinates. THROAT: No erythema or exudates. Moist mucous membranes, endotracheal tube is intact. NECK: No masses, no JVD, no thyroid enlargement, no adenopathy. CHEST: No chest wall deformity. Symmetrical expansion. LUNGS: Crackles and rhonchi and wheezes noted bilaterally. CVS: Regular rate and rhythm, normal S1 and S2, no gallops, no murmurs, no rubs ABDOMEN: Soft nontender no megaly no rebound no guarding. EXTREMITIES: Trace of edema no clubbing no cyanosis. MUSCULOSKELETAL cannot be assessed, patient is on propofol drip. CENTRAL NERVOUS SYSTEM: Cannot be assessed. PSYCHIATRIC: Cannot be assessed. Skin: No rashes. - Labs CBC & Chem 7: 10/08/18 04:15 10/08/18 04:15 Labs: Abnormal Lab Results - Last 24 Hours (Table) 10/07/18 10/07/18 10/07/18 Range/Units 10:05 14:21 15:43 WBC (3.8-10.6) k/uL RBC (4.30-5.90) m/uL Hgb (13.0-17.5) gm/dL Hct (39.0-53.0) % RDW (11.5-15.5) % Neutrophils # (1.3-7.7) k/uL Lymphocytes # (1.0-4.8) k/uL ABG pH 7.34 L (7.35-7.45) ABG pCO2 34 L 32 L (35-45) mmHg ABG pO2 47 L* >400 H (83-108) mmHg ABG HCO3 18 L 19 L (21-25) mmol/L ABG Total CO2 (19-24) mmol/L ABG O2 Saturation 82.8 L 98.9 H (94-97) % Sodium 148 H (137-145) mmol/L Chloride 117 H (98-107) mmol/L Carbon Dioxide 11 L (22-30) mmol/L BUN 101 H* (9-20) mg/dL Creatinine 5.81 H (0.66-1.25) mg/dL Glucose 181 H (74-99) mg/dL POC Glucose (mg/dL) (75-99) mg/dL Calcium 6.9 L (8.4-10.2) mg/dL ALT 12 L (21-72) U/L Total Protein 5.3 L (6.3-8.2) g/dL Albumin 2.4 L (3.5-5.0) g/dL Crossmatch 10/07/18 10/07/18 10/07/18 Range/Units 15:47 15:47 21:10 WBC 18.8 H (3.8-10.6) k/uL RBC 2.44 L (4.30-5.90) m/uL Hgb 6.8 L* (13.0-17.5) gm/dL Hct 21.6 L (39.0-53.0) % RDW 22.1 H (11.5-15.5) % Neutrophils # (1.3-7.7) k/uL Lymphocytes # (1.0-4.8) k/uL ABG pH (7.35-7.45) ABG pCO2 (35-45) mmHg ABG pO2 (83-108) mmHg ABG HCO3 (21-25) mmol/L ABG Total CO2 (19-24) mmol/L ABG O2 Saturation (94-97) % Sodium 149 H 146 H (137-145) mmol/L Chloride 113 H 112 H (98-107) mmol/L Carbon Dioxide 18 L 21 L (22-30) mmol/L BUN 98 H 95 H (9-20) mg/dL Creatinine 5.34 H 5.24 H (0.66-1.25) mg/dL Glucose 198 H 196 H (74-99) mg/dL POC Glucose (mg/dL) (75-99) mg/dL Calcium 6.5 L 6.1 L* (8.4-10.2) mg/dL ALT (21-72) U/L Total Protein 5.2 L (6.3-8.2) g/dL Albumin 2.3 L (3.5-5.0) g/dL Crossmatch 10/07/18 10/07/18 10/08/18 Range/Units 21:10 23:41 00:55 WBC 17.2 H (3.8-10.6) k/uL RBC 2.54 L (4.30-5.90) m/uL Hgb 7.1 L (13.0-17.5) gm/dL Hct 22.2 L (39.0-53.0) % RDW 21.0 H (11.5-15.5) % Neutrophils # (1.3-7.7) k/uL Lymphocytes # (1.0-4.8) k/uL ABG pH (7.35-7.45) ABG pCO2 (35-45) mmHg ABG pO2 (83-108) mmHg ABG HCO3 (21-25) mmol/L ABG Total CO2 (19-24) mmol/L ABG O2 Saturation (94-97) % Sodium (137-145) mmol/L Chloride (98-107) mmol/L Carbon Dioxide (22-30) mmol/L BUN (9-20) mg/dL Creatinine (0.66-1.25) mg/dL Glucose (74-99) mg/dL POC Glucose (mg/dL) 190 H (75-99) mg/dL Calcium (8.4-10.2) mg/dL ALT (21-72) U/L Total Protein (6.3-8.2) g/dL Albumin (3.5-5.0) g/dL Crossmatch See Detail 10/08/18 10/08/18 10/08/18 Range/Units 04:15 04:15 04:32 WBC 13.6 H (3.8-10.6) k/uL RBC 2.38 L (4.30-5.90) m/uL Hgb 6.5 L* (13.0-17.5) gm/dL Hct 20.6 L (39.0-53.0) % RDW 21.1 H (11.5-15.5) % Neutrophils # 12.4 H (1.3-7.7) k/uL Lymphocytes # 0.5 L (1.0-4.8) k/uL ABG pH (7.35-7.45) ABG pCO2 (35-45) mmHg ABG pO2 177 H (83-108) mmHg ABG HCO3 (21-25) mmol/L ABG Total CO2 25 H (19-24) mmol/L ABG O2 Saturation 98.2 H (94-97) % Sodium 146 H (137-145) mmol/L Chloride 111 H (98-107) mmol/L Carbon Dioxide (22-30) mmol/L BUN 95 H (9-20) mg/dL Creatinine 4.99 H (0.66-1.25) mg/dL Glucose (74-99) mg/dL POC Glucose (mg/dL) (75-99) mg/dL Calcium 6.5 L (8.4-10.2) mg/dL ALT (21-72) U/L Total Protein (6.3-8.2) g/dL Albumin (3.5-5.0) g/dL Crossmatch Microbiology - Last 24 Hours (Table) 10/07/18 16:10 Gram Stain - Preliminary Sputum Sputum Culture - Preliminary 10/06/18 19:45 Urine Culture - Preliminary Urine,Catheterized Assessment and Plan Assessment: Impression: 1 acute hypoxic respiratory failure secondary to acute sepsis, likely sources include urine/urinary tract infection, and pneumonia involving the left lower lobe, could be gram-negative pneumonia or could be MSSA pneumonia as he had previously exact nature of his pneumonia is not clear at this point. Nonetheless, patient does have extensive infiltrate in the left lower lobe consistent with pneumonia. 2 acute kidney injury secondary to acute tubular necrosis, patient is known to have history of chronic kidney disease stage III. Presently off bicarb infusion. 3 acute dehydration, improved. 4 acute metabolic acidosis, anion gap on admission was 19. 5 history of chronic pancreatitis 6 history of alcoholism 7 history of chronic normocytic anemia, considering his hemoglobin is 6.7, patient will be transfused with 1 unit of packed RBCs today. 8 previous history of MSSA pneumonia requiring intubation and mechanical ventilation 9 history of focal cord dysfunction 10 previous history of GI bleeding 12 leukocytosis secondary to above. Recommendation: Ventilator settings were noted and adjusted, patient will remain on propofol today, continue GI and DVT prophylaxis, corrected electrolytes and renal profile accordingly, transfuse for a hemoglobin of 6.7 at present, continue antibiotics and antifungal therapy, patient remains off pressors, nutritional support via enteral feeding, patient is not ready for any weaning trials at this point, we'll continue to monitor his renal profile obviously it is improving, and responding to treatment. My plan is to consider weaning trials in the next 24 hours. Prognosis is definitely guarded at this point. We'll continue to follow. Critical care time is 40 minutes. Time with Patient: Greater than 30
[2018-10-08] MEDS: ASPIRIN 81 MG PO SCH (11:00)
[2018-10-08] MEDS: PROPOFOL 1,000 MG in EMPTY BAG 1 BAG IV SCH ×3 (11:04→23:24)
--- NOTE | 2018-10-08 11:57 | PN ---
PROGRESS NOTE Patient is seen for followup for acute kidney injury. Yesterday, he developed worsening respiratory distress and was therefore intubated. Patient was noted to have large amount of secretions from the ET tube and chest x-ray does show infiltrates. Hemoglobin was down to 6.5 g/dL. Patient is maintained on bicarb drip, CO2 was up to this morning. Patient remains on the sedation. PHYSICAL EXAMINATION: This morning blood pressure was 124/41, heart rate of 80 per minute. He is afebrile. Examination of the heart S1, S2. Examination of the lungs, bilateral breath sounds are heard. Abdomen is soft, nontender. Examination of the lower extremities shows no significant edema. ORCHESTRATOR exam cannot be performed. LABS: Show hemoglobin 6.5 g/dL, sodium 146, potassium 3.8, 111, CO2 is 23, BUN 95, serum creatinine 4.9. ASSESSMENT: 1. Acute kidney injury, currently nonoliguric, slowly improving. 2. Sepsis from pneumonia maintained on antibiotics. 3. Left basilar pneumonia maintained on antibiotics. 4. Severe metabolic acidosis, currently improved, status post bicarb drip, the volatile alcohols were negative. Serum acetone was positive. 5. Dependent respiratory failure secondary to pneumonia. 6. Severe anemia with no active bleeding noted. Transfuse one unit packed RBCs and I will maintain the patient on Aranesp as well. PLAN: Add Aranesp, DC bicarb drip, switch to half-normal saline. Transfuse packed RBCs and repeat labs in a.m. Continue antibiotics. Monitor vancomycin levels closely. MMODL / IJN: [id number] /
[2018-10-08 12:15] LABS: Urine Alcohol Negative (Negative); Urine Barbiturate Negative (Negative); Urine Cocaine Negative (Negative); Urine Methadone Negative (Negative); Urine Opiates Positive (Negative); Urine Phencyclidine Negative (Negative)
[2018-10-08] MEDS ORDERED: VANCOMYCIN 1,000 MG in SODIUM CHLORIDE 0.9% 250 ML IVPB ONE (13:30)
[2018-10-08 13:55] LABS: Glucose,Whole Blood 106 mg/dL (75-99)
[2018-10-08] MEDS: DARBEPOETIN ALFA 60 MCG/0.3 ML SYRINGE SQ SCH (14:10)
--- NOTE | 2018-10-08 15:35 | US ---
EXAMINATION TYPE: US venous doppler duplex UE RT DATE OF EXAM: 10/08/2018 COMPARISON: NONE CLINICAL HISTORY: 68-year-old male Arm swelling . Right forearm swelling for upright patient in ICU. Patient is intubated. Patient's neighbor stated patient fell. SIDE PERFORMED: right FINDINGS: Sheepskin Pickler notes: US exam is technically limited for scanning as patient is sedated and unable to ex ternally rotate arm and arm is rigid in flexed position. Right Arm: Negative for DVT as tech was able to assess veins. IMPRESSION: Technical limitations. The patient was sedated and the arm was rigid in a flexed position. To the ext ent that could be assessed by the senior economist, no right upper extremity DVT is visualized.
--- NOTE | 2018-10-08 16:28 | XR ---
EXAMINATION TYPE: XR forearm RT DATE OF EXAM: 10/08/2018 COMPARISON: NONE HISTORY: 68-year-old male with right arm swelling TECHNIQUE: 2 views FINDINGS: Generalized soft tissue swelling throughout the visualized upper extremity. There is some density is present in the region of the antecubital fossa adjacent to the olecranon process on the lateral view that could be external artifact and should be correlated clinically to exclude retained foreign body material. IV line is present at the antecubital fossa and at the wrist. There is some soft tissue air in the antecubital fossa region at the IV site. No acute fracture. IMPRESSION: 1. Generalized soft tissue swelling. Consider soft tissue edema or cellulitis. 2. Soft tissue air in the region of the anterior cubital fossa near the patient's IV site. This could be secondary to recent placement. Again, correlate to exclude cellulitis. 3. 2 densities, one in the proximal antecubital fossa region and one near the olecranon process proba jessi representing external artifact. Clinically correlate to exclude retained foreign body material.
[2018-10-08 17:57] LABS: Glucose,Whole Blood 122 mg/dL (75-99)
[2018-10-08 18:01] LABS: Anisocytosis Moderate; HCT 24.6 % (39.0-53.0); Hypochromasia Moderate; MCHC 32.6 g/dL (31.0-37.0); MCV 85.8 fL (80.0-100.0); Mean Platelet Volume 8.2; Platelet Count 234 k/uL (150-450); Poikilocytosis Moderate; RBC 2.87 m/uL (4.30-5.90); RDW 21.1 % (11.5-15.5); WBC 16.3 k/uL (3.8-10.6)
[2018-10-08 18:04] LABS: Ionized Calcium 3.7 mg/dL (4.5-5.3)
[2018-10-08 18:14] LABS: Magnesium 1.4 mg/dL (1.6-2.3)
--- NOTE | 2018-10-08 18:47 | PN ---
PROGRESS NOTE DATE OF SERVICE: 10/08/2018. REASON FOR FOLLOW UP: pneumonia and UTI. INTERVAL HISTORY: The patient did have a low-grade fever of 99.7 axillary. The patient is currently sedated on the vent. Hemodynamics slightly better. FiO2 is currently stable. No other information obtained from the patient as the patient is currently on the vent and no changes reported per nursing staff. PHYSICAL EXAMINATION: Blood pressure 121/43 with a pulse of 75, temperature 99.6. He is 96% on 50% FiO2. General description is an elderly male lying in bed in no distress. Respiratory system: Unlabored breathing, decreased breath sounds at the bases. No wheeze. Heart S1, S2 regular rate and rhythm. Abdomen soft, no tenderness. LABS: Hemoglobin 6.5, white count 13.6, BUN of 95, creatinine 4.99, white count almost 20, less sputum. Urine cultures currently pending. DIAGNOSTIC IMPRESSION AND PLAN: Patient admitted to the hospital with sepsis in this patient who has been unresponsive/with concern for possible aspiration pneumonia as well as UTI. The patient is currently broadly covered with Zosyn and that will be continue while waiting for the culture to finalize. Continue supportive care. MMODL / IJN: [id number] /
[2018-10-08] MEDS: FLUCONAZOLE IN NACL,ISO-OSM 100 MG in SALINE 1 50ML.BAG IVPB SCH (20:20)
--- NOTE | 2018-10-08 22:28 | P.PN ---
Progress Note - Text Progress Note Date: 10/08/18 Presenting complaint: Decreased responsiveness Interval history: This patient was initially admitted to the hospital in August of this year. Was here for quite some time. At that was treated for pneumonia and metabolic nephropathy and was on the ventilator. Patient also found to esophagitis was in septic shock and had acute tubular necrosis. Also GI bleed with multiple blood transfusions. No obvious source of bleeding was found. Patient also had thoracentesis for pleural effusion. Patient also had a PEG tube placed. Patient was here in the hospital about a month ago for UTI and cystitis. This admission patient was found unresponsive at home. [place] to be possible aspiration pneumonia and/or UTI. Today-currently in the ICU. Intubated. FiO2 50 and PEEP of 8. Telemetry shows sinus rhythm. Drips include propofol at 40 mics. PEG tube is in place. Running Nepro at 40 mL an hour. Review of systems cannot be done as patient is intubated Current medications are reviewed that include: DuoNeb, aspirin, IV Diflucan, IV vancomycin, IV Zosyn, IV propofol On examination: VITAL SIGNS: [Afebrile, 83, 23, 118/46, 95% on ventilator] GENERAL APPEARANCE: thin build. Lying in bed, intubated. HEENT: Normal external appearance of nose and ear. Oral cavity dry with endotracheal tube in place EYES: Pupils equal. Conjunctiva pale NECK: JVD unable to assess. Mass not palpable. RESPIRATORY: Respiratory effort increased. Lungs-decreased breath sounds CARDIOVASCULAR: First and second sounds normal. No edema. ABDOMEN: Soft. Liver and spleen not palpable. No tenderness. No mass palpable. PEG tube in place PSYCHIATRY: Intubated, unable to assess NEUROLOGICAL: Pupils equal reactive, does respond to pain Investigations, in clinical context: White count 16.3 hemoglobin 6.5, repeat 8.0 platelets 234 Creatinine on September 14 was 2.23 Potassium 3.8. 95 creatinine 4.99 Chest x-ray film-personally reviewed by me shows hyperinflation and left basilar infiltrate Assessment: -Left lower lobe pneumonia suspected aspiration pneumonia, causing sepsis on admission -Acute hypoxic respiratory failure, secondary to pneumonia, requiring ventilator assistance, slow to respond -Chronic esophagitis -PEG tube -Hypothyroid -Chronic kidney disease stage III from nephrosclerosis at baseline -Anemia of chronic kidney disease -Anemia from recent GI bleed exact source unknown -Acute renal failure from acute tubal necrosis from underlying sepsis, slow to respond -Severe metabolic acidosis status post bicarbonate drip Plan: Patient remains critically ill. Remains on the ventilator. Patient is on IV Diflucan, IV Zosyn. Antibiotics per ID. Also being followed by nephrology and title search manager. Prognosis guarded.
[2018-10-08] MEDS: SODIUM CHLORIDE 0.45% 1,000 ML IV SCH (23:24)
[2018-10-08] MEDS: MAGNESIUM SULFATE-D5W PMX 1 GM in DEXTROSE/WATER 1 100ML.BAG IVPB SCH (23:26)
[2018-10-08] MEDS ORDERED: CALCIUM GLUCONATE 1 GM in SODIUM CHLORIDE 0.9% 100 ML IVPB ONE (23:30)
[2018-10-08] MEDS: IPRATROPIUM-ALBUTEROL 3 ML NEB INHALATION PRN (23:32)
[2018-10-08 23:56] LABS: Glucose,Whole Blood 140 mg/dL (75-99)
[2018-10-09] MEDS: MAGNESIUM SULFATE-D5W PMX 1 GM in DEXTROSE/WATER 1 100ML.BAG IVPB SCH (00:29)
[2018-10-09] MEDS: IPRATROPIUM-ALBUTEROL 3 ML NEB INHALATION PRN (03:16)
[2018-10-09 04:59] LABS: Anisocytosis Moderate; Basophils % (A) 0 %; Eosinophils # (A) 0.5 k/uL (0-0.7); Eosinophils % (A) 3 %; HCT 25.2 % (39.0-53.0); HGB 8.1 gm/dL (13.0-17.5); Hypochromasia Moderate; Lymphocytes # (A) 0.7 k/uL (1.0-4.8); Lymphocytes % (A) 3 %; MCH 27.9 pg (25.0-35.0); MCHC 32.4 g/dL (31.0-37.0); MCV 86.2 fL (80.0-100.0); Mean Platelet Volume 8.7; Monocytes # (A) 0.4 k/uL (0-1.0); Monocytes % (A) 2 %; Neutrophils # (A) 19.6 k/uL (1.3-7.7); Neutrophils % (A) 91 %; Platelet Count 214 k/uL (150-450); Poikilocytosis Marked; RBC 2.92 m/uL (4.30-5.90); RDW 20.6 % (11.5-15.5); WBC 21.5 k/uL (3.8-10.6)
[2018-10-09 05:08] LABS: Potassium 3.9 mmol/L (3.5-5.1)
[2018-10-09 05:23] LABS: Calcium 6.3 mg/dL (8.4-10.2)
[2018-10-09 06:06] LABS: Glucose,Whole Blood 145 mg/dL (75-99)
[2018-10-09] MEDS: LEVOTHYROXINE 25 MCG TAB PO SCH (06:12)
[2018-10-09] MEDS: INSULIN ASPART (NovoLOG) 100 UNIT/ML VIAL SQ SCH ×4 (06:12→23:16)
[2018-10-09 07:57] LABS: ABG Base Excess -0.2 mmol/L; ABG HCO3 24 mmol/L (21-25); ABG Oxygen Saturation 98.3 % (94-97); ABG PCO2 38 mmHg (35-45); ABG PH 7.42 (7.35-7.45); ABG PO2 130 mmHg (83-108); ABG TCO2 26 mmol/L (19-24)
[2018-10-09] MEDS: IPRATROPIUM-ALBUTEROL 3 ML NEB INHALATION SCH ×4 (08:00→19:42)
--- NOTE | 2018-10-09 08:01 | XR ---
EXAMINATION TYPE: XR chest 1V portable DATE OF EXAM: 10/09/2018 COMPARISON: 10/08/2018 HISTORY: Ventilatory dependent respiratory failure TECHNIQUE: Single frontal view of the chest is obtained. FINDINGS: Stable endotracheal tube. Persistent retrocardiac airspace disease. Strand-like probable a telectasis at the right lung base. Hyperinflation from underlying COPD. No sizable pneumothorax. Slig ht dextroscoliosis and mild degenerative changes of the spine. IMPRESSION: Persistent retrocardiac airspace disease at the left lung base may represent pneumonia o r pleural effusion with atelectasis.
[2018-10-09] MEDS: PIPERACILLIN-TAZOBACTAM 3.375 GM in SODIUM CHLORIDE 0.9% 100 ML IVPB SCH ×2 (08:32→20:09)
[2018-10-09] MEDS: CALCIUM CARBONATE LIQUID 500 MG/5 ML CUP PO SCH ×2 (08:32→17:27)
[2018-10-09] MEDS: FERROUS SULFATE 325 MG TAB PO SCH (08:33)
[2018-10-09] MEDS: METOPROLOL TARTRATE 50 MG TAB PO SCH ×2 (08:33→20:10)
[2018-10-09] MEDS: PANTOPRAZOLE 40 MG/10 ML VIAL IV SCH (08:33)
[2018-10-09] MEDS: ASPIRIN 81 MG PO SCH (08:33)
[2018-10-09] MEDS: CHLORHEXIDINE GLUCONATE 15 ML CUP MUCOUS MEM SCH ×2 (08:33→20:09)
[2018-10-09] MEDS: amLODIPine 10 MG TAB PO SCH (08:33)
[2018-10-09] MEDS: PROPOFOL 1,000 MG in EMPTY BAG 1 BAG IV SCH ×3 (08:49→20:01)
[2018-10-09 11:40] LABS: Glucose,Whole Blood 122 mg/dL (75-99)
--- NOTE | 2018-10-09 12:40 | P.PN ---
Subjective Progress Note Date: 10/09/18 Principal diagnosis: Acute sepsis secondary to urinary tract infection and left lower lobe pneumonia. A 68-year-old male patient with extensive medical problems and comorbidities, who was recently discharged home and he was being followed up by a friend and few days later he was found on the ground confused altered weak and he was brought into the hospital where he was found to be hypotensive, hypothermic with temperature of 93.5 and having some leukocytosis with hypernatremia and the sodium ranging 147 and 148 and a creatinine of 5.9 and he was quite acidotic with serum bicarb level was as low as 6 and anion gap of 22. Lactic acid was nonelevated. The patient's blood sugar was at 63. 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 Chest x-ray showed some limited infiltration of the left lung base. CAT scan of the abdomen was done and it showed no significant acute abnormalities in the abdomen other than chronic pancreatitis-type of picture with extensive pancreatic calcification. The patient was given IV fluids, bicarb infusion and the patient was covered with a combination of Zosyn and vancomycin and Diflucan. Currently the patient is in the intensive care unit. Laying comfortably in bed. Urine was quite cloudy and dirty at time of admission and this has improved. The patient is not requiring any pressors at this point in time. This bonding and answering questions appropriately. Note that the patient has a PEG tube in place. This was placed on previous admission due to difficulties in swallowing.In terms of his previous history, this 68-year-old male patient was in our intensive care unit back in July 2018. He was in for septic shock related complications related to staph pneumonia and an same time he had UTI, metabolic acidosis and acute kidney injury. He has previous history of alcoholism and previous history of pancreatitis and previous history of ERCP with insertion of a biliary stent. The patient had staph pneumonia and MSSA was cultured in his sputum. He was intubated back in 06/30/2018 and he was successfully extubated on 07/03/2018. He required BiPAP for some point. He had CHF and bilateral pleural effusion. He was treated with diuretics. He was noted that he was unable to swallow and he was having difficulties with his voice. ENT evaluated the patient the patient was seen by Dr. Street and the patient showed bilateral vocal cord hemorrhage/laryngitis. Vocal cord movement was not good and the patient was anticipated to have vocal cord dysfunction for an extended period of time. In regards to his dysphagia, it was noted that the patient had limited pharyngeal movement and there was concern towards bulbar palsy. He was worked up with an MRI. He is swallow was poor. He was aspirating and he was given a PEG tube for enteral feeding and nutritional support. His acute kidney injury improved and the creatinine on dropped significantly. He was discharged to be readmitted back in October 2018 for another urine checked infection. He was treated and he was discharged home after being treated for pneumonia/UTI. He was discharged home on oral Augmentin. Patient was evaluated today in the intensive care unit on 10/08/2018, remains on mechanical ventilation, patient is on the following ventilator settings assist control rate of 24 tidal volume of 450 FiO2 of 50% and PEEP was done but I cut it down to 8. Patient is off bicarb drip, his IV fluid is 0.45 at 100 mL/h, he is not requiring any pressors, remains on antibiotics in the form of Zosyn and he is also on Diflucan. Propofol is at 45 mcg/kg/m. Again no pressors and no inotropes. His labs showed low hemoglobin of 6.5 hence I will recommend a unit of packed RBCs to be given, his ABG this morning showed a pO2 of 177 pCO2 of 41 pH of 7.37 hence I plan to cut down his PEEP to 5. His electrolytes are normal BUN however is 95 creatinine 4.99, improving considering his creatinine on admission was 7.27. Cultures including blood and urine and sputum are pending. Meds were all reviewed patient is on the when up, Norvasc, fluconazole, insulin as per protocol, levothyroxine, metoprolol, Protonix, Zosyn, propofol, chest x- ray showed COPD and left basilar pneumonia quite extensive. Nutrition-alvarez, the patient will be started on enteral feeding/Nepro today. Reevaluated today on 10/09/2018, remains in the ICU on mechanical ventilation, tidal volume 450 assist-control rate of 24 FiO2 is 50% and I cut down his PEEP down to 5. ABG showed a pO2 of 130 pCO2 of 38 pH of 7.42. Continues to have leukocytosis with WBC count of 21.5 hemoglobin of 8.1. Electrolytes are normal. However his BUN is 84 creatinine 4.40, seems to be a bit improving slowly. Chest x-ray continues to show persistent retrocardiac pneumonia involving the left lower lobe. And possible some pleural effusion/small. Sputum culture is positive for Aracelis and presumptive staph aureus. Urine culture is also positive for Aracelis glabrata. Patient remains on antibiotics in the form of Zosyn, vancomycin, and fluconazole. Patient is on propofol, plan to assess his mental status today by holding propofol he is not quite ready for weaning. Objective - Vital Signs Vital signs: Vital Signs Temp 98.2 F 10/09/18 08:00 Pulse 70 10/09/18 11:56 Resp 24 10/09/18 11:00 BP 111/59 10/09/18 11:00 Pulse Ox 99 10/09/18 11:00 Intake & Output 10/08/18 10/09/18 10/09/18 18:59 06:59 18:59 Intake Total 2653.000 2007.47 1042.063 Output Total 730 787 490 Balance 1276.272 7921.47 552.063 Weight 60 kg 60 kg Intake: IV 1580 1266 565 .9 KVO 290 100 Calcium Gluconate 1 gm In 100 Sodium Chloride 0.9% 100 ml @ 100 mls/hr IVPB ONCE ONE Rx#:[id number] Dextrose 5% in Water 1, 100 000 ml @ 100 mls/hr IV . [id number] ANTHON[facility] with Sodium Bicarb (1 Meq/ml) 150 ml Rx#:[id number] Fluconazole in NaCl,Iso- 50 Osm 100 mg In Saline 1 50ml.bag @ 50 mls/hr IVPB Q24H [facility] Rx#:[id number] Magnesium Sulfate-D5w Pmx 200 1 gm In Dextrose/Water 1 100ml.bag @ 100 mls/hr IVPB Q1H [facility] Rx#: [id number] Piperacillin-Tazobactam 3 350 100 100 .375 gm In Sodium Chloride 0.9% 100 ml @ 25 mls/hr IVPB Q12H [facility] Rx# :[id number] Pressure bag 0.9NS 30 36 15 Sodium Chloride 0.45% 1, 1100 000 ml @ 100 mls/hr IV . Q10H [facility] Rx#:[id number] Sodium Chloride 0.45% 1, 490 350 000 ml @ 70 mls/hr IV . [id number] [facility] Rx#:[id number] Intake, IV Titration 200.000 166.47 27.063 Amount Propofol 1,000 mg In 200.000 166.47 27.063 Empty Bag 1 bag @ Titrate IV .Q0M AN[facility] Rx#: [id number] Tube Feeding 470 485 360 Blood Product 310 Rc As-3 Unit 310 [id number] Lipid 3 Pressure bag 0.9NS 3 Other 90 90 90 Output: Urine 730 787 490 Other: Voiding Method Indwelling Catheter Indwelling Catheter Indwelling Catheter ABP, PAP, CO, CI - Last Documented Arterial Blood Pressure 104/46 - Exam GENERAL EXAM: Revealed 68-year-old white male on mechanical ventilation, sedated, on propofol. HEAD: Normocephalic/atraumatic. EYES: PERRLA, EOMI, no icterus. NOSE: Clear with pink turbinates. THROAT: No erythema or exudates. Moist mucous membranes, endotracheal tube is intact. NECK: No masses, no JVD, no thyroid enlargement, no adenopathy. CHEST: No chest wall deformity. Symmetrical expansion. LUNGS: Rhonchi and wheezes noted bilaterally, CVS: Regular rate and rhythm, normal S1 and S2, no gallops, no murmurs, no rubs ABDOMEN: Soft nontender no megaly no rebound no guarding. EXTREMITIES: Trace of edema no clubbing no cyanosis. MUSCULOSKELETAL cannot be assessed, patient is on propofol drip. CENTRAL NERVOUS SYSTEM: Cannot be assessed. PSYCHIATRIC: Cannot be assessed. Skin: No rashes. - Labs CBC & Chem 7: 10/09/18 04:50 10/09/18 04:50 Labs: Abnormal Lab Results - Last 24 Hours (Table) 10/08/18 10/08/18 10/08/18 Range/Units 00:55 04:15 13:43 WBC (3.8-10.6) k/uL RBC (4.30-5.90) m/uL Hgb (13.0-17.5) gm/dL Hct (39.0-53.0) % RDW (11.5-15.5) % Neutrophils # (1.3-7.7) k/uL Lymphocytes # (1.0-4.8) k/uL ABG pO2 (83-108) mmHg ABG Total CO2 (19-24) mmol/L ABG O2 Saturation (94-97) % Chloride (98-107) mmol/L BUN (9-20) mg/dL Creatinine (0.66-1.25) mg/dL Glucose (74-99) mg/dL POC Glucose (mg/dL) 106 H (75-99) mg/dL Calcium (8.4-10.2) mg/dL Ionized Calcium Cornelius (4.5-5.3) mg/dL Phosphorus 6.6 H (2.5-4.5) mg/dL Magnesium (1.6-2.3) mg/dL Crossmatch See Detail 10/08/18 10/08/18 10/08/18 Range/Units 17:45 17:45 17:46 WBC 16.3 H (3.8-10.6) k/uL RBC 2.87 L (4.30-5.90) m/uL Hgb 8.0 L D (13.0-17.5) gm/dL Hct 24.6 L (39.0-53.0) % RDW 21.1 H (11.5-15.5) % Neutrophils # (1.3-7.7) k/uL Lymphocytes # (1.0-4.8) k/uL ABG pO2 (83-108) mmHg ABG Total CO2 (19-24) mmol/L ABG O2 Saturation (94-97) % Chloride (98-107) mmol/L BUN (9-20) mg/dL Creatinine (0.66-1.25) mg/dL Glucose (74-99) mg/dL POC Glucose (mg/dL) 122 H (75-99) mg/dL Calcium (8.4-10.2) mg/dL Ionized Calcium Cornelius 3.7 L (4.5-5.3) mg/dL Phosphorus (2.5-4.5) mg/dL Magnesium 1.4 L (1.6-2.3) mg/dL Crossmatch 10/08/18 10/09/18 10/09/18 Range/Units 23:44 04:50 04:50 WBC 21.5 H (3.8-10.6) k/uL RBC 2.92 L (4.30-5.90) m/uL Hgb 8.1 L (13.0-17.5) gm/dL Hct 25.2 L (39.0-53.0) % RDW 20.6 H (11.5-15.5) % Neutrophils # 19.6 H (1.3-7.7) k/uL Lymphocytes # 0.7 L (1.0-4.8) k/uL ABG pO2 (83-108) mmHg ABG Total CO2 (19-24) mmol/L ABG O2 Saturation (94-97) % Chloride 109 H (98-107) mmol/L BUN 84 H (9-20) mg/dL Creatinine 4.40 H (0.66-1.25) mg/dL Glucose 107 H (74-99) mg/dL POC Glucose (mg/dL) 140 H (75-99) mg/dL Calcium 6.3 L* (8.4-10.2) mg/dL Ionized Calcium Cornelius (4.5-5.3) mg/dL Phosphorus (2.5-4.5) mg/dL Magnesium (1.6-2.3) mg/dL Crossmatch 10/09/18 10/09/18 10/09/18 Range/Units 05:50 05:55 07:53 WBC (3.8-10.6) k/uL RBC (4.30-5.90) m/uL Hgb (13.0-17.5) gm/dL Hct (39.0-53.0) % RDW (11.5-15.5) % Neutrophils # (1.3-7.7) k/uL Lymphocytes # (1.0-4.8) k/uL ABG pO2 130 H (83-108) mmHg ABG Total CO2 26 H (19-24) mmol/L ABG O2 Saturation 98.3 H (94-97) % Chloride (98-107) mmol/L BUN (9-20) mg/dL Creatinine (0.66-1.25) mg/dL Glucose (74-99) mg/dL POC Glucose (mg/dL) 145 H (75-99) mg/dL Calcium (8.4-10.2) mg/dL Ionized Calcium Cornelius 3.9 L (4.5-5.3) mg/dL Phosphorus (2.5-4.5) mg/dL Magnesium (1.6-2.3) mg/dL Crossmatch 10/09/18 Range/Units 11:29 WBC (3.8-10.6) k/uL RBC (4.30-5.90) m/uL Hgb (13.0-17.5) gm/dL Hct (39.0-53.0) % RDW (11.5-15.5) % Neutrophils # (1.3-7.7) k/uL Lymphocytes # (1.0-4.8) k/uL ABG pO2 (83-108) mmHg ABG Total CO2 (19-24) mmol/L ABG O2 Saturation (94-97) % Chloride (98-107) mmol/L BUN (9-20) mg/dL Creatinine (0.66-1.25) mg/dL Glucose (74-99) mg/dL POC Glucose (mg/dL) 122 H (75-99) mg/dL Calcium (8.4-10.2) mg/dL Ionized Calcium Cornelius (4.5-5.3) mg/dL Phosphorus (2.5-4.5) mg/dL Magnesium (1.6-2.3) mg/dL Crossmatch Microbiology - Last 24 Hours (Table) 10/07/18 16:10 Gram Stain - Preliminary Sputum Sputum Culture - Preliminary Aracelis albicans Presumptive Staph aureus 10/06/18 19:45 Urine Culture - Final Urine,Catheterized Aracelis glabrata 10/06/18 12:50 Blood Culture - Preliminary Blood No Growth after 24 hours Assessment and Plan Assessment: Impression: 1 acute hypoxic respiratory failure secondary to acute sepsis, likely sources include urine/urinary tract infection, and pneumonia involving the left lower lobe, could be gram-negative pneumonia or could be MSSA pneumonia as he had previously exact nature of his pneumonia is not clear at this point. Nonetheless, patient does have extensive infiltrate in the left lower lobe consistent with pneumonia. 2 acute kidney injury secondary to acute tubular necrosis, patient is known to have history of chronic kidney disease stage III. Presently off bicarb infusion. 3 acute dehydration, improved. 4 acute metabolic acidosis, anion gap on admission was 19. Resolved. 5 history of chronic pancreatitis 6 history of alcoholism 7 history of chronic normocytic anemia, considering his hemoglobin is 6.7, patient will be transfused with 1 unit of packed RBCs today. 8 previous history of MSSA pneumonia requiring intubation and mechanical ventilation 9 history of focal cord dysfunction 10 previous history of GI bleeding 12 leukocytosis secondary to above. Recommendation: Continue ventilatory support, continue sedation interruption on a daily basis and assess mental status beginning today, continue nutritional support, continue antibiotics including Zosyn and vancomycin and Diflucan. Daily assessment of weaning after holding sedatives, and narcotics. Patient is not quite ready for weaning today because of his clinical findings on examination of the lungs. However will definitely try to assess mental status off propofol. Patient is obviously critically ill, we'll continue to follow, critical care time is 35 minutes. Time with Patient: Greater than 30
[2018-10-09] MEDS: ERGOCALCIFEROL 50,000 UNIT CAP PO SCH (13:11)
[2018-10-09] MEDS: SODIUM CHLORIDE 0.45% 1,000 ML IV SCH (13:12)
--- NOTE | 2018-10-09 16:19 | PN ---
PROGRESS NOTE Patient is seen for followup for acute kidney injury. He is currently intubated. He is sedated. The patient remains on the vent. FiO2 is at 50%. On examination, blood pressure was 97/63, heart rate 73 per minute. He is afebrile. EXAMINATION OF THE HEART: S1 and S2. EXAMINATION OF LUNGS: Bilateral breath sounds are heard. ABDOMEN: Soft, non-tender. PEG tube is in place. Examination of lower extremities shows no significant edema. PACK OPERATOR exam cannot be performed. Labs show sodium 143, potassium 3.9, BUN 84, serum creatinine 4.4, serum calcium 6.3. Magnesium was 2.1. ASSESSMENT: 1. Acute kidney injury, acute tubular necrosis and prerenal, currently somewhat improved. Renal function continues to improve. Continue with gentle IV hydration. 2. Chronic kidney disease, NKF stage IIIB to IV, secondary to underlying chronic GN with baseline creatinine at about 2.3 to 2.5 mg/dL. 3. Vent-dependent respiratory failure secondary to pneumonia and sepsis. 4. Severe metabolic acidosis, anion gap, status post bicarb drip, currently improved. 5. Hypocalcemia. Total calcium 6.3. Corrected calcium mg/dL. Patient had significant nutritional vitamin D deficiency on his previous admission, with vitamin D level at 6.7 on 08/16/2018. Continue with vitamin D supplementation for now. 6. Hypernatremia secondary to free water deficit, currently improved. 7. Pneumonia with sputum culture growing yazmin and Staphylococcus aureus, maintained on fluconazole and Zosyn. 8. Anemia of chronic disease. No active bleeding noted, maintained on Aranesp. PLAN: Continue with oral vitamin D supplementation. Continue with IV fluids. Repeat labs in a.m. MMODL / IJN: [id number] /
[2018-10-09 17:32] LABS: Glucose,Whole Blood 160 mg/dL (75-99)
--- NOTE | 2018-10-09 19:43 | PN ---
PROGRESS NOTE DATE OF SERVICE: 10/09/2018 REASON FOR FOLLOWUP: Aspiration pneumonia and UTI. INTERVAL HISTORY: The patient is currently afebrile. The patient is hemodynamically stable, not on any pressor support. The patient was earlier taken off sedation and apparently was responding appropriately. No significant purulent secretions from ET or any diarrhea reported by the nursing staff. PHYSICAL EXAMINATION: Blood pressure 104/54 with a pulse of 81, temperature 98.3. He is 96% on 50% FiO2. General description is an elderly male lying in bed in no distress. RESPIRATORY SYSTEM: Unlabored breathing with decreased breath sounds at the base. No wheeze. HEART: S1, S2. Regular rate and rhythm. ABDOMEN: Soft. No tenderness. LABS: Hemoglobin 8.1, white count 21.5 with a BUN of 84, creatinine 4.40. DIAGNOSTIC IMPRESSION AND PLAN: Patient with sepsis. Source is likely a component of aspiration pneumonia plus/minute UTI. Urine is currently showing Aracelis glabrata sputum Staphylococcus aureus. We will add Zyvox to the IV antibiotic regimen, as the patient is currently at high risk of nephrotoxicity from the vancomycin. Continue with supportive care. MMODL / IJN: [id number] /
[2018-10-09] MEDS: LINEZOLID 600 MG in DEXTROSE/WATER 1 300ML.BAG IVPB SCH (20:10)
[2018-10-09] MEDS: FLUCONAZOLE IN NACL,ISO-OSM 100 MG in SALINE 1 50ML.BAG IVPB SCH (20:10)
[2018-10-09 22:30] LABS: Magnesium 1.8 mg/dL (1.6-2.3); Potassium 3.7 mmol/L (3.5-5.1)
[2018-10-09 22:44] LABS: Calcium 6.3 mg/dL (8.4-10.2)
[2018-10-09] MEDS ORDERED: MAGNESIUM SULFATE-D5W PMX 1 GM in DEXTROSE/WATER 1 100ML.BAG IVPB ONE (22:55)
[2018-10-09] MEDS ORDERED: POTASSIUM BICARBONATE/CIT AC 20 MEQ TABLET.EFF PO ONE (22:55)
[2018-10-09] MEDS ORDERED: CALCIUM GLUCONATE 2 GM in SODIUM CHLORIDE 0.9% 100 ML IVPB ONE (23:00)
[2018-10-09 23:24] LABS: Glucose,Whole Blood 187 mg/dL (75-99)
--- NOTE | 2018-10-10 00:06 | P.PN ---
Progress Note - Text Progress Note Date: 10/09/18 Presenting complaint: Decreased responsiveness Interval history: This patient was initially admitted to the hospital in August of this year. Was here for quite some time. At that was treated for pneumonia and metabolic nephropathy and was on the ventilator. Patient also found to esophagitis was in septic shock and had acute tubular necrosis. Also GI bleed with multiple blood transfusions. No obvious source of bleeding was found. Patient also had thoracentesis for pleural effusion. Patient also had a PEG tube placed. Patient was here in the hospital about a month ago for UTI and cystitis. This admission patient was found unresponsive at home. Alkol to be possible aspiration pneumonia and/or UTI. Today-currently in the ICU. Intubated. FiO2 50 and PEEP of 5. Telemetry shows sinus rhythm. Did get a sedation holiday today. Tube feeding at 45 mL an hour. Review of systems cannot be done as patient is intubated Current medications are reviewed that include: DuoNeb, IV Diflucan, IV linezolid, IV Zosyn On examination: VITAL SIGNS: [Afebrile, 77, 28, 99/55, 96% on the ventilator] GENERAL APPEARANCE:. Lying in bed, intubated. HEENT: Normal external appearance of nose and ear. Oral cavity dry with endotracheal tube in place EYES: Pupils equal. Conjunctiva pale NECK: JVD unable to assess. Mass not palpable. RESPIRATORY: Respiratory effort increased. Lungs-decreased breath sounds CARDIOVASCULAR: First and second sounds normal. No edema. ABDOMEN: Soft. Liver and spleen not palpable. No tenderness. No mass palpable. PEG tube in place PSYCHIATRY: Intubated, unable to assess NEUROLOGICAL: Pupils equal reactive, does respond to pain Investigations, in clinical context: Potassium 3.7, BUN 79, creatinine 3.83, Assessment: -Left lower lobe pneumonia suspected aspiration pneumonia, causing sepsis on adm ission -Acute hypoxic respiratory failure, secondary to pneumonia, requiring ventilator assistance, slow to respond -Chronic esophagitis -PEG tube, chronic -Hypothyroid -Chronic kidney disease stage III from nephrosclerosis at baseline -Anemia of chronic kidney disease -Anemia from recent GI bleed exact source unknown -Acute renal failure from acute tubal necrosis from underlying sepsis, some impr ovement -Severe metabolic acidosis status post bicarbonate drip Plan: Patient remains critically ill. Remains on the ventilator. Continue with IV antibiotics. Prognosis remains guarded. Kidney function showing some improvement.
[2018-10-10] MEDS: PROPOFOL 1,000 MG in EMPTY BAG 1 BAG IV SCH ×2 (01:13→05:50)
[2018-10-10] MEDS ORDERED: LACTULOSE 20 GM/30 ML CUP PO ONE (02:30)
[2018-10-10] MEDS: SODIUM CHLORIDE 0.45% 1,000 ML IV SCH ×2 (03:08→17:53)
[2018-10-10 03:41] LABS: Ionized Calcium 4.3 mg/dL (4.5-5.3)
[2018-10-10 03:42] LABS: Anisocytosis Moderate; Basophils % (A) 0 %; Eosinophils # (A) 0.5 k/uL (0-0.7); Eosinophils % (A) 2 %; HCT 23.7 % (39.0-53.0); HGB 7.5 gm/dL (13.0-17.5); Hypochromasia Marked; Lymphocytes # (A) 0.7 k/uL (1.0-4.8); Lymphocytes % (A) 3 %; MCH 27.7 pg (25.0-35.0); MCHC 31.7 g/dL (31.0-37.0); MCV 87.4 fL (80.0-100.0); Mean Platelet Volume 8.6; Monocytes # (A) 0.4 k/uL (0-1.0); Monocytes % (A) 2 %; Neutrophils # (A) 21.7 k/uL (1.3-7.7); Neutrophils % (A) 93 %; Platelet Count 168 k/uL (150-450); Poikilocytosis Moderate; RBC 2.71 m/uL (4.30-5.90); RDW 20.5 % (11.5-15.5); WBC 23.4 k/uL (3.8-10.6)
[2018-10-10 03:49] LABS: Calcium 6.7 mg/dL (8.4-10.2); Magnesium 2.1 mg/dL (1.6-2.3); Phosphorus 3.5 mg/dL (2.5-4.5); Potassium 4.1 mmol/L (3.5-5.1)
[2018-10-10 03:54] LABS: Vancomycin,Random 22.3 ug/mL
[2018-10-10] MEDS: INSULIN ASPART (NovoLOG) 100 UNIT/ML VIAL SQ SCH ×3 (04:57→17:52)
[2018-10-10 05:05] LABS: Glucose,Whole Blood 155 mg/dL (75-99)
[2018-10-10] MEDS: LEVOTHYROXINE 25 MCG TAB PO SCH (05:51)
[2018-10-10] MEDS: CALCIUM CARBONATE LIQUID 500 MG/5 ML CUP PO SCH ×2 (06:39→17:53)
[2018-10-10 07:39] LABS: ABG Base Excess 0.2 mmol/L; ABG HCO3 24 mmol/L (21-25); ABG Oxygen Saturation 98.2 % (94-97); ABG PCO2 34 mmHg (35-45); ABG PH 7.46 (7.35-7.45); ABG PO2 146 mmHg (83-108); ABG TCO2 25 mmol/L (19-24)
[2018-10-10] MEDS: IPRATROPIUM-ALBUTEROL 3 ML NEB INHALATION SCH ×4 (07:41→20:40)
[2018-10-10] MEDS: PIPERACILLIN-TAZOBACTAM 3.375 GM in SODIUM CHLORIDE 0.9% 100 ML IVPB SCH ×2 (08:27→21:06)
[2018-10-10] MEDS: FERROUS SULFATE 325 MG TAB PO SCH (08:28)
[2018-10-10] MEDS: PANTOPRAZOLE 40 MG/10 ML VIAL IV SCH (08:28)
[2018-10-10] MEDS: LINEZOLID 600 MG in DEXTROSE/WATER 1 300ML.BAG IVPB SCH ×2 (08:28→21:07)
[2018-10-10] MEDS: METOPROLOL TARTRATE 50 MG TAB PO SCH (08:28)
[2018-10-10] MEDS: CHLORHEXIDINE GLUCONATE 15 ML CUP MUCOUS MEM SCH (08:28)
--- NOTE | 2018-10-10 08:37 | XR ---
EXAMINATION TYPE: XR chest 1V portable DATE OF EXAM: 10/10/2018 COMPARISON: 10/09/2018 HISTORY: Ventilatory dependent respiratory failure TECHNIQUE: Single frontal view of the chest is obtained. FINDINGS: Endotracheal tube is similar in position. There is partial visualization of a cervical fus ion device. There is a persistent small left pleural effusion and trace right pleural effusion with r etrocardiac airspace disease. Mild pulmonary vascular congestion and interstitial prominence. IMPRESSION: Similar-appearing small left pleural effusion, trace right pleural effusion and retrocar diac airspace disease that may represent pneumonia or atelectasis. Mild interstitial pulmonary edema.
[2018-10-10] MEDS: ASPIRIN 81 MG PO SCH (10:16)
--- NOTE | 2018-10-10 10:29 | P.PN ---
Subjective Progress Note Date: 10/10/18 Principal diagnosis: Acute sepsis secondary to urinary tract infection and left lower lobe pneumonia. A 68-year-old male patient with extensive medical problems and comorbidities, who was recently discharged home and he was being followed up by a friend and few days later he was found on the ground confused altered weak and he was brought into the hospital where he was found to be hypotensive, hypothermic with temperature of 93.5 and having some leukocytosis with hypernatremia and the sodium ranging 147 and 148 and a creatinine of 5.9 and he was quite acidotic with serum bicarb level was as low as 6 and anion gap of 22. Lactic acid was nonelevated. The patient's blood sugar was at 63. 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 Chest x-ray showed some limited infiltration of the left lung base. CAT scan of the abdomen was done and it showed no significant acute abnormalities in the abdomen other than chronic pancreatitis-type of picture with extensive pancreatic calcification. The patient was given IV fluids, bicarb infusion and the patient was covered with a combination of Zosyn and vancomycin and Diflucan. Currently the patient is in the intensive care unit. Laying comfortably in bed. Urine was quite cloudy and dirty at time of admission and this has improved. The patient is not requiring any pressors at this point in time. This bonding and answering questions appropriately. Note that the patient has a PEG tube in place. This was placed on previous admission due to difficulties in swallowing.In terms of his previous history, this 68-year-old male patient was in our intensive care unit back in July 2018. He was in for septic shock related complications related to staph pneumonia and an same time he had UTI, metabolic acidosis and acute kidney injury. He has previous history of alcoholism and previous history of pancreatitis and previous history of ERCP with insertion of a biliary stent. The patient had staph pneumonia and MSSA was cultured in his sputum. He was intubated back in 06/30/2018 and he was successfully extubated on 07/03/2018. He required BiPAP for some point. He had CHF and bilateral pleural effusion. He was treated with diuretics. He was noted that he was unable to swallow and he was having difficulties with his voice. ENT evaluated the patient the patient was seen by Dr. Street and the patient showed bilateral vocal cord hemorrhage/laryngitis. Vocal cord movement was not good and the patient was anticipated to have vocal cord dysfunction for an extended period of time. In regards to his dysphagia, it was noted that the patient had limited pharyngeal movement and there was concern towards bulbar palsy. He was worked up with an MRI. He is swallow was poor. He was aspirating and he was given a PEG tube for enteral feeding and nutritional support. His acute kidney injury improved and the creatinine on dropped significantly. He was discharged to be readmitted back in October 2018 for another urine checked infection. He was treated and he was discharged home after being treated for pneumonia/UTI. He was discharged home on oral Augmentin. Patient was evaluated today in the intensive care unit on 10/08/2018, remains on mechanical ventilation, patient is on the following ventilator settings assist control rate of 24 tidal volume of 450 FiO2 of 50% and PEEP was done but I cut it down to 8. Patient is off bicarb drip, his IV fluid is 0.45 at 100 mL/h, he is not requiring any pressors, remains on antibiotics in the form of Zosyn and he is also on Diflucan. Propofol is at 45 mcg/kg/m. Again no pressors and no inotropes. His labs showed low hemoglobin of 6.5 hence I will recommend a unit of packed RBCs to be given, his ABG this morning showed a pO2 of 177 pCO2 of 41 pH of 7.37 hence I plan to cut down his PEEP to 5. His electrolytes are normal BUN however is 95 creatinine 4.99, improving considering his creatinine on admission was 7.27. Cultures including blood and urine and sputum are pending. Meds were all reviewed patient is on the when up, Norvasc, fluconazole, insulin as per protocol, levothyroxine, metoprolol, Protonix, Zosyn, propofol, chest x- ray showed COPD and left basilar pneumonia quite extensive. Nutrition-alvarez, the patient will be started on enteral feeding/Nepro today. Reevaluated today on 10/09/2018, remains in the ICU on mechanical ventilation, tidal volume 450 assist-control rate of 24 FiO2 is 50% and I cut down his PEEP down to 5. ABG showed a pO2 of 130 pCO2 of 38 pH of 7.42. Continues to have leukocytosis with WBC count of 21.5 hemoglobin of 8.1. Electrolytes are normal. However his BUN is 84 creatinine 4.40, seems to be a bit improving slowly. Chest x-ray continues to show persistent retrocardiac pneumonia involving the left lower lobe. And possible some pleural effusion/small. Sputum culture is positive for Aracelis and presumptive staph aureus. Urine culture is also positive for Aracelis glabrata. Patient remains on antibiotics in the form of Zosyn, vancomycin, and fluconazole. Patient is on propofol, plan to assess his mental status today by holding propofol he is not quite ready for weaning. Reevaluated today on 10/10/2018, remains in the ICU, on mechanical ventilation, same ventilator settings however his FiO2 down to 35%. Patient is arousable, off propofol at present, seems to follow simple instructions. He is not requiring any pressors. No inotropes, remains on multiple antibiotics including Zyvox, Zosyn, and Diflucan. ABG this morning showed a pO2 of 146 pCO2 of 34 pH of 7.46, and this was on a 50% FiO2. His FiO2 is down to 35% at present. Chest x-ray is showing improvement in his retrocardiac airspace disease and pneumonia/atelectasis at the left lower lobe area. Continues to have leukocytosis with WBC count of 23.4 hemoglobin is 7.5. Electrolytes are normal. Renal profile is improving, creatinine is down to 3.69 steadily declining. Since admission. Urine output is excellent about 100 mL per hour. Objective - Vital Signs Vital signs: Vital Signs Temp 99.0 F 10/10/18 08:00 Pulse 83 10/10/18 10:00 Resp 24 10/10/18 10:00 BP 110/57 10/10/18 09:00 Pulse Ox 95 10/10/18 10:00 Intake & Output 10/09/18 10/10/18 10/10/18 18:59 06:59 18:59 Intake Total 2407.463 2690.7 1004.115 Output Total 1115 1290 325 Balance 7212.921 1029.7 679.115 Weight 60 kg 64.9 kg Intake: IV 1216 1659 614 .9 KVO 240 260 20 Fluconazole in NaCl,Iso- 50 Osm 100 mg In Saline 1 50ml.bag @ 50 mls/hr IVPB Q24H [facility] Rx#:[id number] Linezolid 600 mg In 300 300 Dextrose/Water 1 300ml. bag @ 150 mls/hr IVPB Q12HR [facility] Rx#:[id number] Piperacillin-Tazobactam 3 100 100 75 .375 gm In Sodium Chloride 0.9% 100 ml @ 25 mls/hr IVPB Q12H [facility] Rx# :[id number] Pressure bag 0.9NS 36 39 9 Sodium Chloride 0.45% 1, 840 910 210 000 ml @ 70 mls/hr IV . [id number] [facility] Rx#:[id number] Intake, IV Titration 171.463 176.7 75.115 Amount Propofol 1,000 mg In 171.463 176.7 75.115 Empty Bag 1 bag @ Titrate IV .Q0M [facility] Rx#: [id number] Tube Feeding 810 765 225 Other 210 90 90 Output: Urine 1115 1290 325 Other: Voiding Method Indwelling Catheter Indwelling Catheter Indwelling Catheter ABP, PAP, CO, CI - Last Documented Arterial Blood Pressure 121/40 - Exam GENERAL EXAM: Revealed 68-year-old white male on mechanical ventilation, off propofol, arousable, follows simple instructions. HEAD: Normocephalic/atraumatic. EYES: PERRLA, EOMI, no icterus. NOSE: Clear with pink turbinates. THROAT: No erythema or exudates. Moist mucous membranes, endotracheal tube is intact. NECK: No masses, no JVD, no thyroid enlargement, no adenopathy. CHEST: No chest wall deformity. Symmetrical expansion. LUNGS: Rhonchi and wheezes noted bilaterally, CVS: Regular rate and rhythm, normal S1 and S2, no gallops, no murmurs, no rubs ABDOMEN: Soft nontender no megaly no rebound no guarding. EXTREMITIES: Trace of edema no clubbing no cyanosis. MUSCULOSKELETAL arousable, follows simple instructions. Generally weak. CENTRAL NERVOUS SYSTEM: Arousable, follows simple instruction Skin: No rashes. Psychiatric: Could not be assessed. Lymphatics: No lymphadenopathy. - Labs CBC & Chem 7: 10/10/18 03:28 10/10/18 03:28 Labs: Abnormal Lab Results - Last 24 Hours (Table) 10/09/18 10/09/18 10/09/18 Range/Units 11:29 17:18 22:00 WBC (3.8-10.6) k/uL RBC (4.30-5.90) m/uL Hgb (13.0-17.5) gm/dL Hct (39.0-53.0) % RDW (11.5-15.5) % Neutrophils # (1.3-7.7) k/uL Lymphocytes # (1.0-4.8) k/uL ABG pH (7.35-7.45) ABG pCO2 (35-45) mmHg ABG pO2 (83-108) mmHg ABG Total CO2 (19-24) mmol/L ABG O2 Saturation (94-97) % BUN 79 H (9-20) mg/dL Creatinine 3.83 H (0.66-1.25) mg/dL Glucose 165 H (74-99) mg/dL POC Glucose (mg/dL) 122 H 160 H (75-99) mg/dL Calcium 6.3 L* (8.4-10.2) mg/dL Ionized Calcium Cornelius (4.5-5.3) mg/dL 10/09/18 10/10/18 10/10/18 Range/Units 23:12 03:28 03:28 WBC 23.4 H (3.8-10.6) k/uL RBC 2.71 L (4.30-5.90) m/uL Hgb 7.5 L (13.0-17.5) gm/dL Hct 23.7 L (39.0-53.0) % RDW 20.5 H (11.5-15.5) % Neutrophils # 21.7 H (1.3-7.7) k/uL Lymphocytes # 0.7 L (1.0-4.8) k/uL ABG pH (7.35-7.45) ABG pCO2 (35-45) mmHg ABG pO2 (83-108) mmHg ABG Total CO2 (19-24) mmol/L ABG O2 Saturation (94-97) % BUN 76 H (9-20) mg/dL Creatinine 3.69 H (0.66-1.25) mg/dL Glucose 132 H (74-99) mg/dL POC Glucose (mg/dL) 187 H (75-99) mg/dL Calcium 6.7 L (8.4-10.2) mg/dL Ionized Calcium Cornelius 4.3 L (4.5-5.3) mg/dL 10/10/18 10/10/18 Range/Units 04:53 07:34 WBC (3.8-10.6) k/uL RBC (4.30-5.90) m/uL Hgb (13.0-17.5) gm/dL Hct (39.0-53.0) % RDW (11.5-15.5) % Neutrophils # (1.3-7.7) k/uL Lymphocytes # (1.0-4.8) k/uL ABG pH 7.46 H (7.35-7.45) ABG pCO2 34 L (35-45) mmHg ABG pO2 146 H (83-108) mmHg ABG Total CO2 25 H (19-24) mmol/L ABG O2 Saturation 98.2 H (94-97) % BUN (9-20) mg/dL Creatinine (0.66-1.25) mg/dL Glucose (74-99) mg/dL POC Glucose (mg/dL) 155 H (75-99) mg/dL Calcium (8.4-10.2) mg/dL Ionized Calcium Cornelius (4.5-5.3) mg/dL Microbiology - Last 24 Hours (Table) 10/06/18 12:50 Blood Culture - Preliminary Blood No Growth after 48 hours 10/07/18 16:10 Gram Stain - Preliminary Sputum Sputum Culture - Preliminary Aracelis albicans Presumptive Staph aureus 10/06/18 19:45 Urine Culture - Final Urine,Catheterized Aracelis glabrata Assessment and Plan Assessment: Impression: 1 acute hypoxic respiratory failure secondary to acute sepsis, likely sources include urine/urinary tract infection, and pneumonia involving the left lower lobe, sputum cultures are positive for presumptive staph and Aracelis albicans 2 acute kidney injury secondary to acute tubular necrosis, patient is known to have history of chronic kidney disease stage III. Steadily improving. 3 acute dehydration, improved. 4 acute metabolic acidosis, anion gap on admission was 19. Resolved. 5 history of chronic pancreatitis 6 history of alcoholism 7 history of chronic normocytic anemia, hemoglobin today is 7.5. 8 previous history of MSSA pneumonia requiring intubation and mechanical ventilation 9 history of focal cord dysfunction 10 previous history of GI bleeding 12 leukocytosis secondary to above. Recommendation: Continue ventilatory support for now, patient will be given a weaning trial with a pressure support of 8 and CPAP, and if tolerated may proceed to further weaning and possibly extubation. In the meantime continue antibiotics, nutritional support, patient is on Zosyn and Zyvox and Diflucan, continue GI and DVT prophylaxis, his mental status was briefly assessed yesterday, and previously assessed today, seems to be intact. His chest x-ray is showing improvement, ABG is also showing some improvement, patient will be considered for weaning later today. In the meantime remains critically ill, and we'll continue to follow. We'll continue to keep in the ICU even if extubated today. Critical care time is 33 minutes Time with Patient: Greater than 30
--- NOTE | 2018-10-10 10:44 | PN ---
PROGRESS NOTE Patient is seen for followup for acute kidney injury. He remains on the vent. IV fluids at 70 mL an hour. Urine output is 100 to 125 mL an hour. FiO2 is at 40%. PHYSICAL EXAMINATION: On examination, patient is comfortable. Blood pressure is 110/57, heart rate 81 per minute. He is afebrile. EXAMINATION OF THE HEART: S1, S2. EXAMINATION OF THE LUNGS: Bilateral breath sounds are heard. Abdomen is soft, nontender. Examination of the lower extremities shows no significant edema. BELT OPERATOR exam cannot be performed. LABS: Labs show sodium 139, potassium 4.1, BUN 76, serum creatinine 3.69. Calcium was 6.7, magnesium 2.1. ASSESSMENT: 1. Acute kidney injury, acute tubular necrosis, currently improving. Patient is maintained on IV fluids which I will continue. 2. Respiratory failure, hypoxic secondary to pneumonia, currently on the vent and stable. 3. Anemia with no active bleeding noticed, status post packed RBC transfusion. 4. Hypocalcemia with nutritional vitamin D deficiency maintained on supplementation and calcium supplementation as well. 5. Pneumonia with sputum culture growing Staphylococcus aureus and Aracelis, maintained on antifungals and vancomycin. PLAN: Continue IV fluids. Repeat labs in a.m. Monitor electrolytes. MMODL / IJN: [id number] /
[2018-10-10 11:12] LABS: ABG Base Excess -1.5 mmol/L; ABG HCO3 23 mmol/L (21-25); ABG Oxygen Saturation 95.4 % (94-97); ABG PCO2 37 mmHg (35-45); ABG PH 7.41 (7.35-7.45); ABG PO2 78 mmHg (83-108); ABG TCO2 24 mmol/L (19-24)
[2018-10-10 11:26] LABS: Glucose,Whole Blood 154 mg/dL (75-99)
[2018-10-10] MEDS ORDERED: METOPROLOL TARTRATE 25 MG TAB PO STA (13:07)
[2018-10-10] MEDS: ACETAMINOPHEN TAB 325 MG TAB PO PRN ×2 (13:15→19:15)
--- NOTE | 2018-10-10 16:17 | PN ---
PROGRESS NOTE DATE OF SERVICE: 10/10/2018 REASON FOR FOLLOWUP: Aspiration pneumonia and UTI. INTERVAL HISTORY: The patient is currently afebrile. The patient is sedated, intubated on the vent. He is hemodynamically stable, not requiring any pressor support. He has been tolerating his tube feeds. No reported by the nursing staff, as the patient did receive yesterday per the RN. PHYSICAL EXAMINATION: His blood pressure is 116/62 with a pulse of 87, temperature 98.6. He is 97% on 35% FiO2. General description is a middle-aged male lying in bed in no distress. RESPIRATORY SYSTEM: Unlabored breathing with decreased breath sounds at the base. HEART: S1, S2. Regular rate and rhythm. ABDOMEN: Soft. No tenderness. LABS: Hemoglobin 7.5, white count 23.4, creatinine 3.69, random vancomycin 22.3. Sputum showing Aracelis albicans and presumptive Staph aureus. Sensitivity of Staph aureus is pending. Urine with Aracelis glabrata. DIAGNOSTIC IMPRESSION AND PLAN: 1. Patient admitted to hospital with sepsis. Source is multifactorial in this patient who did have a component of pneumonia, sputum showing presumptive Staph aureus. Currently covered with Zyvox because of high risk of nephrotoxicity because of underlying kidney function. To continue. On Zosyn as well. There is no evidence of any gram-negative infection. Zosyn will be discontinued. 2. Patient with positive urine culture with Aracelis glabrata. RN has been advised to change his Zhu catheter and obtain a urine culture from the new Zhu. MMODL / IJN: [id number] /
[2018-10-10 17:58] LABS: Glucose,Whole Blood 94 mg/dL (75-99)
[2018-10-10 18:12] LABS: Calcium 6.9 mg/dL (8.4-10.2); Potassium 4.2 mmol/L (3.5-5.1)
[2018-10-10] MEDS: FLUCONAZOLE IN NACL,ISO-OSM 100 MG in SALINE 1 50ML.BAG IVPB SCH (21:07)
[2018-10-10] MEDS: METOPROLOL TARTRATE 25 MG TAB PO SCH (21:08)
--- NOTE | 2018-10-10 22:00 | P.PN ---
Progress Note - Text Progress Note Date: 10/10/18 Presenting complaint: Short of breath Interval history: This patient was initially admitted to the hospital in August of this year. Was here for quite some time. At that was treated for pneumonia and metabolic nephropathy and was on the ventilator. Patient also found to esophagitis was in septic shock and had acute tubular necrosis. Also GI bleed with multiple blood transfusions. No obvious source of bleeding was found. Patient also had thoracentesis for pleural effusion. Patient also had a PEG tube placed. Patient was here in the hospital about a month ago for UTI and cystitis. This admission patient was found unresponsive at home. [place] to be possible aspiration pneumonia and/or UTI. Today- patient was extubated earlier today. Laying in bed. Awake. Answering questions. Tired. Congested cough. On nasal cannula. Review of systems: Was done for constitutional, cardiovascular, GI, pulmonary. relevant finding as above Current medications are reviewed that include: DuoNeb, IV Diflucan, IV linezolid, IV Zosyn On examination: VITAL SIGNS: [Afebrile, 73, 13, 103/58, 97% on 6 L GENERAL APPEARANCE:. Propped up in bed, tired appearing awake HEENT: Normal external appearance of nose and ear. Oral cavity dry EYES: Pupils equal. Conjunctiva pale NECK: JVD unable to assess. Mass not palpable. RESPIRATORY: Respiratory effort increased. Lungs-decreased breath sounds CARDIOVASCULAR: First and second sounds normal. No edema. ABDOMEN: Soft. Liver and spleen not palpable. No tenderness. No mass palpable. PEG tube in place PSYCHIATRY: Able to answer questions NEUROLOGICAL: Following commands, moving all 4 limbs Investigations, in clinical context: White count 23.4, hemoglobin 7.5, potassium 4.2, urine 72, creatinine 3.57 Sputum showing Aracelis albicans and's presumptive staph aureus Assessment: -pneumonia suspected aspiration pneumonia, causing sepsis from staph aureus on admission -Acute hypoxic respiratory failure, secondary to pneumonia, status post ventilator assistance, currently on nasal cannula -Chronic esophagitis -PEG tube, chronic -Hypothyroid -Chronic kidney disease stage III from nephrosclerosis at baseline -Anemia of chronic kidney disease -Anemia from recent GI bleed exact source unknown -Acute renal failure from acute tubal necrosis from underlying sepsis, some improvement -Severe metabolic acidosis status post bicarbonate drip Plan: Patient now extubated. Awake. The medicating. Continue with broad-spectrum IV antibiotics.
[2018-10-11] MEDS: ACETAMINOPHEN TAB 325 MG TAB PO PRN ×4 (01:00→18:19)
[2018-10-11] MEDS: INSULIN ASPART (NovoLOG) 100 UNIT/ML VIAL SQ SCH ×4 (01:02→18:12)
[2018-10-11 01:10] LABS: Glucose,Whole Blood 136 mg/dL (75-99)
[2018-10-11 05:36] LABS: Anisocytosis Moderate; Basophils % (A) 0 %; Eosinophils # (A) 0.3 k/uL (0-0.7); Eosinophils % (A) 1 %; HCT 23.5 % (39.0-53.0); HGB 7.7 gm/dL (13.0-17.5); Hypochromasia Marked; Lymphocytes % (A) 4 %; MCH 28.4 pg (25.0-35.0); MCHC 32.5 g/dL (31.0-37.0); MCV 87.2 fL (80.0-100.0); Mean Platelet Volume 8.9; Monocytes # (A) 0.7 k/uL (0-1.0); Monocytes % (A) 2 %; Neutrophils # (A) 25.2 k/uL (1.3-7.7); Neutrophils % (A) 92 %; Platelet Count 162 k/uL (150-450); Poikilocytosis Moderate; WBC 27.3 k/uL (3.8-10.6)
[2018-10-11 05:39] LABS: Ionized Calcium 4.5 mg/dL (4.5-5.3)
[2018-10-11 06:03] LABS: Calcium 7.1 mg/dL (8.4-10.2); Potassium 3.8 mmol/L (3.5-5.1)
[2018-10-11] MEDS: LEVOTHYROXINE 25 MCG TAB PO SCH (06:27)
[2018-10-11] MEDS: CALCIUM CARBONATE LIQUID 500 MG/5 ML CUP PO SCH ×2 (06:32→18:12)
[2018-10-11 06:41] LABS: Glucose,Whole Blood 127 mg/dL (75-99)
--- NOTE | 2018-10-11 07:39 | XR ---
EXAMINATION TYPE: XR chest 1V portable DATE OF EXAM: 10/11/2018 COMPARISON: 10/10/2018 HISTORY: Shortness of breath. Follow-up exam. TECHNIQUE: Single frontal view of the chest is obtained. FINDINGS: Endotracheal tube has been removed in the interim. There is an increasing small left pleur al effusion and increasing bibasilar airspace disease with mild pulmonary vascular congestion. Reticu lar left lower lung airspace disease is also seen. The cardiomediastinal silhouette is shifted second frantz to patient rotation and dextroscoliosis of the thoracic spine is likely positional. Cervical fusi on device is partially visualized. Osteophyte or joint body is seen partially within the left shoulde r. IMPRESSION: Interval extubation with new multifocal right basilar opacities, worsening reticular lef t basilar opacity and worsening small left pleural effusion. Mild pulmonary vascular congestion is al so now seen.
[2018-10-11] MEDS: IPRATROPIUM-ALBUTEROL 3 ML NEB INHALATION SCH ×4 (08:26→20:00)
--- NOTE | 2018-10-11 09:35 | ECHOF ---
Referral Reason:PVCs MEASUREMENTS -------- HEIGHT: 172.7 cm WEIGHT: 64.0 kg BP: RVIDd: 2.7 cm (< 3.3) IVSd: 1.0 cm (0.6 - 1.1) LVIDd: 4.3 cm (3.9 - 5.3) LVPWd: 1.1 cm (0.6 - 1.1) IVSs: 1.4 cm LVIDs: 2.7 cm LVPWs: 1.5 cm LAESV Index (A-L): 26.49 ml/m Ao Diam: 3.2 cm (2.0 - 3.7) AV Cusp: 2.0 cm (1.5 - 2.6) LA Diam: 3.7 cm (2.7 - 3.8) MV EXCURSION: 17.701 mm (> 18.000) MV EF SLOPE: 89 mm/s (70 - 150) EPSS: 0.7 cm MV E Juan Antonio: 1.17 m/s MV DecT: 136 ms MV A Juan Antonio: 1.21 m/s MV E/A Ratio: 0.97 AR PHT: 385 ms RAP: 5.00 mmHg RVSP: 34.35 mmHg FINDINGS -------- Sinus rhythm with extra systolic beats. This was a technically good study. The left ventricular size is normal. Left ventricular wall thickness is normal. Overall left vent ricular systolic function is normal with, an EF between 55 - 60 %. The right ventricle is normal in size. The left atrial size is normal. Normal LA size by volume 22+/-6 ml/m2. The right atrial size is normal. Interatrial and interventricular septum intact. Aortic valve is trileaflet and is mildly thickened. Trace amount of aortic regurgitation. The mitral valve is normal. Mild mitral regurgitation is present. The tricuspid valve appears structurally normal. Mild tricuspid regurgitation present. Right vent ricular systolic pressure is normal at < 35 mmHg. There is no pulmonic regurgitation present. The aortic root size is normal. Normal inferior vena cava with normal inspiratory collapse consistent with estimated right atrial pre ssure of 5 mmHg. The flow patterns, measured by Doppler, appear normal. There is no pericardial effusion. CONCLUSIONS -------- 1. Sinus rhythm with extra systolic beats. 2. This was a technically good study. 3. The left ventricular size is normal. 4. Left ventricular wall thickness is normal. 5. Overall left ventricular systolic function is normal with, an EF between 55 - 60 %. 6. The right ventricle is normal in size. 7. The left atrial size is normal. 8. Normal LA size by volume 22+/-6 ml/m2. 9. The right atrial size is normal. 10. Interatrial and interventricular septum intact. 11. Aortic valve is trileaflet and is mildly thickened. 12. Trace amount of aortic regurgitation. 13. The mitral valve is normal. 14. Mild mitral regurgitation is present. 15. The tricuspid valve appears structurally normal. 16. Mild tricuspid regurgitation present. 17. Right ventricular systolic pressure is normal at < 35 mmHg. 18. There is no pulmonic regurgitation present. 19. The aortic root size is normal. 20. Normal inferior vena cava with normal inspiratory collapse consistent with estimated right atrial pressure of 5 mmHg. 21. The flow patterns, measured by Doppler, appear normal. 22. There is no pericardial effusion. LEATHER GOODS II ASSEMBLER: Aubrie Back RDCS
[2018-10-11] MEDS: PIPERACILLIN-TAZOBACTAM 3.375 GM in SODIUM CHLORIDE 0.9% 100 ML IVPB SCH ×2 (10:03→20:11)
[2018-10-11] MEDS: SODIUM CHLORIDE 0.45% 1,000 ML IV SCH (10:03)
[2018-10-11] MEDS: PANTOPRAZOLE 40 MG/10 ML VIAL IV SCH (10:04)
[2018-10-11] MEDS: ASPIRIN 81 MG PO SCH (10:05)
[2018-10-11] MEDS: FERROUS SULFATE 325 MG TAB PO SCH (10:05)
[2018-10-11] MEDS: METOPROLOL TARTRATE 25 MG TAB PO SCH ×2 (10:05→20:16)
[2018-10-11] MEDS: LINEZOLID 600 MG in DEXTROSE/WATER 1 300ML.BAG IVPB SCH ×2 (10:20→20:12)
--- NOTE | 2018-10-11 11:33 | PN ---
PROGRESS NOTE The patient is seen for followup for acute kidney injury, severe metabolic acidosis. He was extubated this morning. Patient is doing well. He denies any significant complaints. Renal function is stable and continues to improve. The patient has adequate urine output. He is maintained on IV fluids at 70 mL an hour. PHYSICAL EXAMINATION: On examination today, blood pressure was 145/53, heart rate 81 per minute. He is afebrile. EXAMINATION OF THE HEART: S1, S2. EXAMINATION OF THE LUNGS: Decreased breath sounds at the bases. Abdomen is soft, nontender. Examination of lower extremities shows no significant edema. PRINTER FLOOR COVERING ASSISTANT exam shows patient is moving all 4 extremities. LABS: Labs show sodium of 140, potassium 3.8, BUN 68, creatinine 3.45, hemoglobin 7.7 g/dL. ASSESSMENT: 1. Acute kidney injury secondary to sepsis, acute tubular necrosis, currently improved. Renal function continues to improve. The patient is maintained on IV fluids. I will decrease the dose to about 40 mL an hour since he has been extubated. 2. Pneumonia maintained on antibiotics. Sputum culture growing Staphylococcus aureus and Aracelis. Patient is maintained on vancomycin. 3. Hypoxic respiratory failure secondary to pneumonia, status post extubation yesterday. 4. Hypocalcemia with nutritional vitamin D deficiency, maintained on calcium supplementation and vitamin D supplementation. 5. Hypernatremia, currently improved. PLAN: Decrease half-normal saline to about 40 mL an hour. Repeat labs in a.m.. MMAMANUELL / HARPERN: [id number] /
[2018-10-11 12:01] LABS: Glucose,Whole Blood 156 mg/dL (75-99)
--- NOTE | 2018-10-11 12:51 | P.PN ---
Subjective Progress Note Date: 10/11/18 Principal diagnosis: Acute sepsis secondary to urinary tract infection and left lower lobe pneumonia. A 68-year-old male patient with extensive medical problems and comorbidities, who was recently discharged home and he was being followed up by a friend and few days later he was found on the ground confused altered weak and he was brought into the hospital where he was found to be hypotensive, hypothermic with temperature of 93.5 and having some leukocytosis with hypernatremia and the sodium ranging 147 and 148 and a creatinine of 5.9 and he was quite acidotic with serum bicarb level was as low as 6 and anion gap of 22. Lactic acid was nonelevated. The patient's blood sugar was at 63. 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 Chest x-ray showed some limited infiltration of the left lung base. CAT scan of the abdomen was done and it showed no significant acute abnormalities in the abdomen other than chronic pancreatitis-type of picture with extensive pancreatic calcification. The patient was given IV fluids, bicarb infusion and the patient was covered with a combination of Zosyn and vancomycin and Diflucan. Currently the patient is in the intensive care unit. Laying comfortably in bed. Urine was quite cloudy and dirty at time of admission and this has improved. The patient is not requiring any pressors at this point in time. This bonding and answering questions appropriately. Note that the patient has a PEG tube in place. This was placed on previous admission due to difficulties in swallowing.In terms of his previous history, this 68-year-old male patient was in our intensive care unit back in July 2018. He was in for septic shock related complications related to staph pneumonia and an same time he had UTI, metabolic acidosis and acute kidney injury. He has previous history of alcoholism and previous history of pancreatitis and previous history of ERCP with insertion of a biliary stent. The patient had staph pneumonia and MSSA was cultured in his sputum. He was intubated back in 06/30/2018 and he was successfully extubated on 07/03/2018. He required BiPAP for some point. He had CHF and bilateral pleural effusion. He was treated with diuretics. He was noted that he was unable to swallow and he was having difficulties with his voice. ENT evaluated the patient the patient was seen by Dr. Street and the patient showed bilateral vocal cord hemorrhage/laryngitis. Vocal cord movement was not good and the patient was anticipated to have vocal cord dysfunction for an extended period of time. In regards to his dysphagia, it was noted that the patient had limited pharyngeal movement and there was concern towards bulbar palsy. He was worked up with an MRI. He is swallow was poor. He was aspirating and he was given a PEG tube for enteral feeding and nutritional support. His acute kidney injury improved and the creatinine on dropped significantly. He was discharged to be readmitted back in October 2018 for another urine checked infection. He was treated and he was discharged home after being treated for pneumonia/UTI. He was discharged home on oral Augmentin. Patient was evaluated today in the intensive care unit on 10/08/2018, remains on mechanical ventilation, patient is on the following ventilator settings assist control rate of 24 tidal volume of 450 FiO2 of 50% and PEEP was done but I cut it down to 8. Patient is off bicarb drip, his IV fluid is 0.45 at 100 mL/h, he is not requiring any pressors, remains on antibiotics in the form of Zosyn and he is also on Diflucan. Propofol is at 45 mcg/kg/m. Again no pressors and no inotropes. His labs showed low hemoglobin of 6.5 hence I will recommend a unit of packed RBCs to be given, his ABG this morning showed a pO2 of 177 pCO2 of 41 pH of 7.37 hence I plan to cut down his PEEP to 5. His electrolytes are normal BUN however is 95 creatinine 4.99, improving considering his creatinine on admission was 7.27. Cultures including blood and urine and sputum are pending. Meds were all reviewed patient is on the when up, Norvasc, fluconazole, insulin as per protocol, levothyroxine, metoprolol, Protonix, Zosyn, propofol, chest x- ray showed COPD and left basilar pneumonia quite extensive. Nutrition-alvarez, the patient will be started on enteral feeding/Nepro today. Reevaluated today on 10/09/2018, remains in the ICU on mechanical ventilation, tidal volume 450 assist-control rate of 24 FiO2 is 50% and I cut down his PEEP down to 5. ABG showed a pO2 of 130 pCO2 of 38 pH of 7.42. Continues to have leukocytosis with WBC count of 21.5 hemoglobin of 8.1. Electrolytes are normal. However his BUN is 84 creatinine 4.40, seems to be a bit improving slowly. Chest x-ray continues to show persistent retrocardiac pneumonia involving the left lower lobe. And possible some pleural effusion/small. Sputum culture is positive for Aracelis and presumptive staph aureus. Urine culture is also positive for Aracelis glabrata. Patient remains on antibiotics in the form of Zosyn, vancomycin, and fluconazole. Patient is on propofol, plan to assess his mental status today by holding propofol he is not quite ready for weaning. Reevaluated today on 10/10/2018, remains in the ICU, on mechanical ventilation, same ventilator settings however his FiO2 down to 35%. Patient is arousable, off propofol at present, seems to follow simple instructions. He is not requiring any pressors. No inotropes, remains on multiple antibiotics including Zyvox, Zosyn, and Diflucan. ABG this morning showed a pO2 of 146 pCO2 of 34 pH of 7.46, and this was on a 50% FiO2. His FiO2 is down to 35% at present. Chest x-ray is showing improvement in his retrocardiac airspace disease and pneumonia/atelectasis at the left lower lobe area. Continues to have leukocytosis with WBC count of 23.4 hemoglobin is 7.5. Electrolytes are normal. Renal profile is improving, creatinine is down to 3.69 steadily declining. Since admission. Urine output is excellent about 100 mL per hour. Patient was reevaluated today on 10/11/2018, patient was extubated yesterday, and he tolerated the extubation well over the last 24 hours. However the patient is not doing well with incentive spirometry, he is not able to cough, and his chest x-ray is showing slight worsening of his infiltrates and atelectasis at the bases. Patient was made aware of his condition, and he was since [place] on the use of his incentive spirometer, and instructed on deep coughing and deep breathing. In the meantime the patient will remain on bronchodilators antibiotics, and oxygen. And I will keep him in the intensive care unit. Patient continues to have PEG tube feeding. Patient is a great set up for aspiration pneumonia. CBC is a bit worse today, WBC count is up to 27.3 hemoglobin is 7.7 electrolytes are normal however his BUN and creatinine are improving BUN is 68 creatinine is 3.45, urine output is excellent. Not requiring any diuretics. Sputum cultures are positive for Aracelis and for MSSA. Objective - Vital Signs Vital signs: Vital Signs Temp 97.5 F L 10/11/18 12:00 Pulse 67 10/11/18 12:00 Resp 16 10/11/18 12:00 BP 120/65 10/11/18 06:00 Pulse Ox 96 10/11/18 12:00 Intake & Output 10/10/18 10/11/18 10/11/18 18:59 06:59 18:59 Intake Total 7298.595 2077 1078 Output Total 1200 1510 600 Balance 778.439 206 478 Weight 64.4 kg 64.4 kg Intake: IV 1363 1566 658 .9 KVO 160 240 120 Fluconazole in NaCl,Iso- 50 Osm 100 mg In Saline 1 50ml.bag @ 50 mls/hr IVPB Q24H [facility] Rx#:[id number] Linezolid 600 mg In 300 300 150 Dextrose/Water 1 300ml. bag @ 150 mls/hr IVPB Q12HR [facility] Rx#:[id number] Piperacillin-Tazobactam 3 100 100 100 .375 gm In Sodium Chloride 0.9% 100 ml @ 25 mls/hr IVPB Q12H [facility] Rx# :[id number] Pressure bag 0.9NS 33 36 18 Sodium Chloride 0.45% 1, 770 840 270 000 ml @ 40 mls/hr IV . Q24H [facility] Rx#:[id number] Intake, IV Titration 75.439 Amount Propofol 1,000 mg In 75.439 Empty Bag 1 bag @ Titrate IV .Q0M [facility] Rx#: [id number] Tube Feeding 270 90 360 Other 270 60 60 Output: Urine 1200 1510 600 Other: Voiding Method Indwelling Catheter Indwelling Catheter Indwelling Catheter # Bowel Movements 1 1 ABP, PAP, CO, CI - Last Documented Arterial Blood Pressure 146/51 - Exam GENERAL EXAM: Revealed 68-year-old white male on 5 L nasal cannula, in no distress, asymptomatic. HEAD: Normocephalic/atraumatic. EYES: PERRLA, EOMI, no icterus. NOSE: Clear with pink turbinates. THROAT: No erythema or exudates. Moist mucous membranes, endotracheal tube is intact. NECK: No masses, no JVD, no thyroid enlargement, no adenopathy. CHEST: No chest wall deformity. Symmetrical expansion. LUNGS: Rhonchi and wheezes noted bilaterally, diminished breath sounds at the bases especially at the left base. CVS: Regular rate and rhythm, normal S1 and S2, no gallops, no murmurs, no rubs ABDOMEN: Soft nontender no megaly no rebound no guarding. PEG tube is noted to be intact. EXTREMITIES: Trace of edema no clubbing no cyanosis. MUSCULOSKELETAL arousable, follows simple instructions. Generally weak. CENTRAL NERVOUS SYSTEM: Alert oriented 3, no gross focal neurologic deficits. Skin: No rashes. Psychiatric: Depressed mood blunt affect normal mental status.. Lymphatics: No lymphadenopathy. - Labs CBC & Chem 7: 10/11/18 05:00 10/11/18 05:00 Labs: Abnormal Lab Results - Last 24 Hours (Table) 10/10/18 10/11/18 10/11/18 Range/Units 17:45 00:58 05:00 WBC 27.3 H (3.8-10.6) k/uL RBC 2.70 L (4.30-5.90) m/uL Hgb 7.7 L (13.0-17.5) gm/dL Hct 23.5 L (39.0-53.0) % RDW 21.0 H (11.5-15.5) % Neutrophils # 25.2 H (1.3-7.7) k/uL Chloride 108 H (98-107) mmol/L Carbon Dioxide 20 L (22-30) mmol/L BUN 72 H (9-20) mg/dL Creatinine 3.57 H (0.66-1.25) mg/dL Glucose (74-99) mg/dL POC Glucose (mg/dL) 136 H (75-99) mg/dL Calcium 6.9 L (8.4-10.2) mg/dL 10/11/18 10/11/18 10/11/18 Range/Units 05:00 06:29 11:50 WBC (3.8-10.6) k/uL RBC (4.30-5.90) m/uL Hgb (13.0-17.5) gm/dL Hct (39.0-53.0) % RDW (11.5-15.5) % Neutrophils # (1.3-7.7) k/uL Chloride 108 H (98-107) mmol/L Carbon Dioxide (22-30) mmol/L BUN 68 H (9-20) mg/dL Creatinine 3.45 H (0.66-1.25) mg/dL Glucose 107 H (74-99) mg/dL POC Glucose (mg/dL) 127 H 156 H (75-99) mg/dL Calcium 7.1 L (8.4-10.2) mg/dL Microbiology - Last 24 Hours (Table) 10/07/18 16:10 Gram Stain - Final Sputum Sputum Culture - Final Aracelis albicans Staphylococcus aureus 10/10/18 09:45 Urine Culture - Preliminary Urine,Catheterized 10/06/18 12:50 Blood Culture - Preliminary Blood No Growth after 72 hours Assessment and Plan Assessment: Impression: 1 acute hypoxic respiratory failure secondary to acute sepsis, likely sources include urine/urinary tract infection, and pneumonia involving the left lower lobe, sputum cultures are positive for MSSA and Aracelis albicans. 2 acute kidney injury secondary to acute tubular necrosis, patient is known to have history of chronic kidney disease stage III. Steadily improving. 3 acute dehydration, improved. 4 acute metabolic acidosis, anion gap on admission was 19. Resolved. 5 history of chronic pancreatitis 6 history of alcoholism 7 history of chronic normocytic anemia, hemoglobin is 7.7 today. 8 previous history of MSSA pneumonia requiring intubation and mechanical ventilation 9 history of focal cord dysfunction 10 previous history of GI bleeding 12 leukocytosis secondary to above. Recommendation: Patient was extubated on 10/10/2018, and so far he seems to be tolerating the extubation well. However I'm a bit concerned since the patient is not doing well with incentive spirometry, not doing much of deep coughing and deep breathing, chest x-ray is a bit worse today, and his WBC count is up to 27,000. Patient was made aware of his condition, we will continue antibiotics, bronchodilators, incentive spirometry, we'll continue to monitor the patient in the ICU. Prognosis remains extremely poor and guarded. Time with Patient: Less than 30
[2018-10-11 13:02] LABS: Glucose,Whole Blood 137 mg/dL (75-99)
--- NOTE | 2018-10-11 16:46 | PN ---
PROGRESS NOTE DATE OF SERVICE: 10/11/2018. REASON FOR FOLLOWUP: MSSA aspiration pneumonia and UTI. INTERVAL HISTORY: The patient is afebrile. The patient has been successfully extubated. The patient has been breathing comfortably on nasal cannula oxygen. Denies having any chest pain. Occasional cough. No nausea or vomiting. No abdominal pain or any diarrhea. PHYSICAL EXAMINATION: Blood pressure 159/50 with a pulse of 73, temperature 97.5. He is 91% on 4 L nasal cannula. General description is an elderly male lying in bed in no distress. RESPIRATORY SYSTEM: Unlabored breathing. Some coarse breath sounds at the bases. No wheeze. HEART: S1, S2. Regular rate and rhythm. ABDOMEN: Soft. No tenderness. LABS: Hemoglobin 7.7, white count 27.3 with a BUN of 68, creatinine 3.45. DIAGNOSTIC IMPRESSION AND PLAN: 1. Patient with sepsis. Source is likely aspiration pneumonia, sputum showing an MSSA and Aracelis albicans. At this time antibiotic will be adjusted to Unasyn. Discontinue the Zyvox and monitor his clinical course closely. 2. Positive urine culture patient's Zhu catheter has been changed and repeat cultures have been negative so far. No need for further workup for the same. Son at the bedside. His questions were answered. MMODL / IJN: [id number] /
--- NOTE | 2018-10-11 17:12 | P.CRDCN ---
<Felicia Hurtado - Last Filed: 10/11/18 17:08> History of Present Illness History of present illness: This is Felicia Hurtado PA-C dictating a consult on this patient The patient was interviewed and examined by me IMPRESSION / ASSESSMENT: PACs and atrial triplet, asymptomatic Hypertension Current smoker PLAN: Order echocardiogram to evaluate cardiac structure and function Check TSH Continue to monitor for ventricular arrhythmias no nonsustained ventricular tachycardia seen so far, awaiting full disclosure telemetry strips from nursing We'll monitor blood pressure and make decisions regarding antihypertensive therapy tomorrow HPI Patient is a 68-year-old male with past medical history of hypertension who presented to the emergency department after a fall. He was found to have pneumonia and sepsis and was admitted for treatment. We are consulted for evaluation of NSVT. Patient denies any symptoms of chest pain, palpitations, dizziness, or syncope. He is short of breath secondary to pneumonia but denies any shortness of breath prior to getting sick. Patient denies any history of heart problems or family history of heart problems. Patient smokes a half pack cigarettes per day Patient is a nondiabetic EXAMINATION: Temperature 97.5F, pulse 81, respirations 16, blood pressure 145/53, oxygen saturation 94 on 2 L nasal cannula Should seen and examined resting comfortably in bed bilateral diffuse rhonchi Heart is regular, normal S1-S2, no murmurs appreciated No lower extremity edema No elevated JVD REVIEW OF LABS, ECG & MEDICAL DATA Rhythm strips show sinus rhythm with some PACs, 1 atrial triplet, no NSVT noted on the strips provided by nursing WBC 27.3, hemoglobin 7.7, potassium 3.8, BUN 68, creatinine 3.45 Update TSH normal at 2.2 Past Medical History Past Medical History: GI Bleed, Hypertension, Neurologic Disorder, Pneumonia, Renal Disease Additional Past Medical History / Comment(s): Hx calculus of bile duct, acute cholecystitis, pancreatitis. History of Any Multi-Drug Resistant Organisms: None Reported Past Surgical History: Orthopedic Surgery Additional Past Surgical History / Comment(s): cervical surgery, bilateral c ataract removal with lens implants, umbilical hernia as a baby, bile duct stent, ERCP, C3-6 plate Past Anesthesia/Blood Transfusion Reactions: No Reported Reaction Past Psychological History: No Psychological Hx Reported Smoking Status: Former smoker Past Alcohol Use History: Occasional Past Drug Use History: None Reported - Past Family History Father Family Medical History: Cancer Additional Family Medical History / Comment(s): Melanoma Mother Family Medical History: Cancer Additional Family Medical History / Comment(s): Breast cancer. Medications and Allergies Home Medications Medication Instructions Recorded Confirmed Type amLODIPine BESYLATE [Norvasc] 10 mg PO DAILY 06/29/18 10/06/18 History Ferrous Sulfate [Feosol] 325 mg PO DAILY #30 tab 07/04/18 10/06/18 Rx Ipratropium-Albuterol Nebulize 3 ml INHALATION RT-QID ampul.neb 07/24/18 10/06/18 Rx [Duoneb 0.5 mg-3 mg/3 ml Soln] Levothyroxine Sodium [Synthroid] 25 mcg PO DAILY #1 tab 07/24/18 10/06/18 Rx Metoprolol Tartrate [Lopressor] 50 mg PO BID tab 07/24/18 10/06/18 Rx Omeprazole [PriLOSEC] 20 mg PO AC-BID #1 cap 07/24/18 10/06/18 Rx Acetaminophen Tab [Tylenol] 650 mg PO Q6H PRN 08/31/18 10/06/18 History Ergocalciferol (Vitamin D2) 66,000 unit PO Q7D 08/31/18 10/06/18 History [Ergocalciferol] Magnesium Oxide [Mag-Ox] 400 mg PO DAILY 08/31/18 10/06/18 History Aspirin 81 mg PO DAILY chew 09/06/18 10/06/18 Rx Sodium Bicarbonate Tab 650 mg PO BID #0 09/06/18 10/06/18 Rx Epoetin Von [Procrit] 4,000 unit IJ MOWEFR 10/06/18 10/06/18 History Allergies Allergy/AdvReac Type Severity Reaction Status Date / Time No Known Allergies Allergy Verified 10/06/18 17:44 Physical Exam Vitals: Vital Signs Temp Pulse Resp BP Pulse Ox 10/11/18 16:09 82 10/11/18 15:00 81 15 91 L 10/11/18 14:00 73 15 91 L 10/11/18 13:00 72 19 95 10/11/18 12:58 68 10/11/18 12:00 97.5 F L 67 16 96 10/11/18 11:00 81 25 H 90 L 10/11/18 10:00 80 17 97 10/11/18 09:00 81 20 94 L 10/11/18 08:35 84 10/11/18 08:21 80 95 10/11/18 08:00 97.5 F L 75 17 92 L 10/11/18 07:00 75 13 94 L 10/11/18 06:00 73 15 120/65 95 10/11/18 05:00 76 16 119/65 93 L 10/11/18 04:00 97.5 F L 80 16 112/59 92 L 10/11/18 03:00 76 18 121/72 91 L 10/11/18 02:00 71 15 112/60 97 10/11/18 01:00 73 15 95/55 95 10/11/18 00:00 97.6 F 69 15 112/61 96 10/10/18 23:00 81 13 109/60 98 10/10/18 22:00 74 14 82/69 94 L 10/10/18 21:00 14 95/56 92 L 10/10/18 20:51 78 10/10/18 20:42 98 10/10/18 20:41 80 10/10/18 20:00 74 14 105/55 98 10/10/18 19:00 77 19 96 10/10/18 18:00 76 14 103/51 97 10/10/18 17:05 74 10/10/18 17:00 73 13 103/58 97 10/10/18 16:59 96 10/10/18 16:58 75 Intake and Output 10/11/18 10/11/18 10/11/18 06:59 14:59 22:59 Intake Total 839 1339 108 Output Total 1060 800 125 Balance -221 539 -17 Intake: IV 794 784 63 .9 KVO 160 160 20 Linezolid 600 mg In 150 Dextrose/Water 1 300ml. bag @ 150 mls/hr IVPB Q12HR [facility] Rx#:[id number] Piperacillin-Tazobactam 3 50 100 .375 gm In Sodium Chloride 0.9% 100 ml @ 25 mls/hr IVPB Q12H [facility] Rx# :[id number] Pressure bag 0.9NS 24 24 3 Sodium Chloride 0.45% 1, 560 350 40 000 ml @ 40 mls/hr IV . Q24H [facility] Rx#:[id number] Tube Feeding 45 495 45 Other 60 Output: Urine 1060 800 125 Other: Voiding Method Indwelling Catheter Indwelling Catheter Weight 64.4 kg 64.4 kg ABP, PAP, CO, CI - Last 8 Hours Arterial Blood Pressure 148/45 Arterial Blood Pressure 159/50 Arterial Blood Pressure 149/48 Arterial Blood Pressure 146/51 Arterial Blood Pressure 148/51 Arterial Blood Pressure 154/48 Arterial Blood Pressure 145/53 Results 10/11/18 05:00 10/11/18 05:00 CBC 10/11/18 Range/Units 05:00 WBC 27.3 H (3.8-10.6) k/uL RBC 2.70 L (4.30-5.90) m/uL Hgb 7.7 L (13.0-17.5) gm/dL Hct 23.5 L (39.0-53.0) % Plt Count 162 (150-450) k/uL Comprehensive Metabolic Panel 10/10/18 10/11/18 Range/Units 17:45 05:00 Sodium 140 140 (137-145) mmol/L Potassium 4.2 3.8 (3.5-5.1) mmol/L Chloride 108 H 108 H (98-107) mmol/L Carbon Dioxide 20 L 22 (22-30) mmol/L BUN 72 H 68 H (9-20) mg/dL Creatinine 3.57 H 3.45 H (0.66-1.25) mg/dL Glucose 87 107 H (74-99) mg/dL Calcium 6.9 L 7.1 L (8.4-10.2) mg/dL Current Medications Generic Name Dose Route Start Last Admin Trade Name Freq PRN Reason Stop Dose Admin Acetaminophen 650 mg 10/07/18 14:09 10/11/18 12:52 Tylenol Tab PO 650 mg Q6H PRN Administration Fever and/ or Pain Albuterol/Ipratropium 3 ml 10/06/18 23:27 10/09/18 03:16 Duoneb 0.5 Mg-3 Mg/3 Ml Soln INHALATION 3 ml RT-Q2H PRN Administration Shortness Of Breath Or Wheezing Albuterol/Ipratropium 3 ml 10/07/18 16:00 10/11/18 16:11 Duoneb 0.5 Mg-3 Mg/3 Ml Soln INHALATION 3 ml RT-QID AN[facility] Administration Aspirin 81 mg 10/08/18 09:00 10/11/18 10:05 Aspirin PO 81 mg DAILY ANTHONY Administration Calcium Carbonate/Glycine 500 mg 10/09/18 07:30 10/11/18 06:32 Tums Liquid PO 500 mg BID-W/MEALS ANTHONY Administration Darbepoetin Von 60 mcg 10/08/18 12:00 10/08/18 14:10 Aranesp SQ 60 mcg Q7D [facility] Administration Ergocalciferol 50,000 unit 10/09/18 12:00 10/09/18 13:11 Vitamin D2 PO 50,000 unit Q72H [facility] Administration Ferrous Sulfate 325 mg 10/08/18 09:00 10/11/18 10:05 Feosol PO 325 mg DAILY ANTHONY Administration Piperacillin Sod/Tazobactam 100 mls @ 25 mls/hr 10/07/18 08:00 10/11/18 10:03 Sod 3.375 gm/ Sodium Chloride IVPB 25 mls/hr Q12H [facility] Administration Fluconazole/Sodium Chloride 50 mls @ 50 mls/hr 10/07/18 21:00 10/10/18 21:07 100 mg/ IV Solution IVPB 50 mls/hr Q24H [facility] Administration Sodium Chloride 1,000 mls @ 40 mls/hr 10/08/18 23:30 10/11/18 10:03 Saline 0.45% IV 70 mls/hr .Q24H [facility] Administration Linezolid 600 mg/ IV Solution 300 mls @ 150 mls/hr 10/09/18 21:00 10/11/18 10:20 IVPB 150 mls/hr Q12HR [facility] Administration Protocol Insulin Aspart 0 unit 10/07/18 23:45 10/11/18 12:53 Novolog SQ 100 unit Q6H AN[facility] Administration Protocol Levothyroxine Sodium 25 mcg 10/08/18 06:30 10/11/18 06:27 Synthroid PO 25 mcg 0630 AN[facility] Administration Metoprolol Tartrate 75 mg 10/10/18 21:00 10/11/18 10:05 Lopressor PO 75 mg BID AN[facility]Y Administration Naloxone HCl 0.2 mg 10/06/18 22:31 Narcan IV Q2M PRN Opioid Reversal Pantoprazole Sodium 40 mg 10/12/18 09:00 Protonix PO DAILY [facility] Intake and Output 10/11/18 10/11/18 10/11/18 06:59 14:59 22:59 Intake Total 839 1339 108 Output Total 1060 800 125 Balance -221 539 -17 Intake: IV 794 784 63 .9 KVO 160 160 20 Linezolid 600 mg In 150 Dextrose/Water 1 300ml. bag @ 150 mls/hr IVPB Q12HR [facility] Rx#:[id number] Piperacillin-Tazobactam 3 50 100 .375 gm In Sodium Chloride 0.9% 100 ml @ 25 mls/hr IVPB Q12H [facility] Rx# :[id number] Pressure bag 0.9NS 24 24 3 Sodium Chloride 0.45% 1, 560 350 40 000 ml @ 40 mls/hr IV . Q24H [facility] Rx#:[id number] Tube Feeding 45 495 45 Other 60 Output: Urine 1060 800 125 Other: Voiding Method Indwelling Catheter Indwelling Catheter Weight 64.4 kg 64.4 kg Patient Weight 10/12/18 06:59 Weight 64.4 kg 10/11/18 05:00 10/11/18 05:00 <Andre Uribe - Last Filed: 10/11/18 17:53> Physical Exam Vitals: Vital Signs Temp Pulse Resp BP Pulse Ox 10/11/18 17:00 80 19 92 L 10/11/18 16:20 80 10/11/18 16:09 82 10/11/18 16:00 97.7 F 75 16 93 L 10/11/18 15:00 81 15 91 L 10/11/18 14:00 73 15 91 L 10/11/18 13:00 72 19 95 10/11/18 12:58 68 10/11/18 12:00 97.5 F L 67 16 96 10/11/18 11:00 81 25 H 90 L 10/11/18 10:00 80 17 97 10/11/18 09:00 81 20 94 L 10/11/18 08:35 84 10/11/18 08:21 80 95 10/11/18 08:00 97.5 F L 75 17 92 L 10/11/18 07:00 75 13 94 L 10/11/18 06:00 73 15 120/65 95 10/11/18 05:00 76 16 119/65 93 L 10/11/18 04:00 97.5 F L 80 16 112/59 92 L 10/11/18 03:00 76 18 121/72 91 L 10/11/18 02:00 71 15 112/60 97 10/11/18 01:00 73 15 95/55 95 10/11/18 00:00 97.6 F 69 15 112/61 96 10/10/18 23:00 81 13 109/60 98 10/10/18 22:00 74 14 82/69 94 L 10/10/18 21:00 14 95/56 92 L 10/10/18 20:51 78 10/10/18 20:42 98 10/10/18 20:41 80 10/10/18 20:00 74 14 105/55 98 10/10/18 19:00 77 19 96 10/10/18 18:00 76 14 103/51 97 Intake and Output 10/11/18 10/11/18 10/11/18 06:59 14:59 22:59 Intake Total 839 1339 399 Output Total 1060 800 425 Balance -221 539 -26 Intake: IV 794 784 189 .9 KVO 160 160 60 Linezolid 600 mg In 150 Dextrose/Water 1 300ml. bag @ 150 mls/hr IVPB Q12HR [facility] Rx#:[id number] Piperacillin-Tazobactam 3 50 100 .375 gm In Sodium Chloride 0.9% 100 ml @ 25 mls/hr IVPB Q12H [facility] Rx# :[id number] Pressure bag 0.9NS 24 24 9 Sodium Chloride 0.45% 1, 560 350 120 000 ml @ 40 mls/hr IV . Q24H [facility] Rx#:[id number] Tube Feeding 45 495 180 Other 60 30 Output: Urine 1060 800 425 Other: Voiding Method Indwelling Catheter Indwelling Catheter Indwelling Catheter Weight 64.4 kg 64.4 kg ABP, PAP, CO, CI - Last 8 Hours Arterial Blood Pressure 155/53 Arterial Blood Pressure 158/49 Arterial Blood Pressure 148/45 Arterial Blood Pressure 159/50 Arterial Blood Pressure 149/48 Arterial Blood Pressure 146/51 Arterial Blood Pressure 148/51 Arterial Blood Pressure 154/48 Results 10/11/18 05:00 10/11/18 05:00 CBC 10/11/18 Range/Units 05:00 WBC 27.3 H (3.8-10.6) k/uL RBC 2.70 L (4.30-5.90) m/uL Hgb 7.7 L (13.0-17.5) gm/dL Hct 23.5 L (39.0-53.0) % Plt Count 162 (150-450) k/uL Comprehensive Metabolic Panel 10/10/18 10/11/18 Range/Units 17:45 05:00 Sodium 140 140 (137-145) mmol/L Potassium 4.2 3.8 (3.5-5.1) mmol/L Chloride 108 H 108 H (98-107) mmol/L Carbon Dioxide 20 L 22 (22-30) mmol/L BUN 72 H 68 H (9-20) mg/dL Creatinine 3.57 H 3.45 H (0.66-1.25) mg/dL Glucose 87 107 H (74-99) mg/dL Calcium 6.9 L 7.1 L (8.4-10.2) mg/dL Current Medications Generic Name Dose Route Start Last Admin Trade Name Freq PRN Reason Stop Dose Admin Acetaminophen 650 mg 10/07/18 14:09 10/11/18 12:52 Tylenol Tab PO 650 mg Q6H PRN Administration Fever and/ or Pain Albuterol/Ipratropium 3 ml 10/06/18 23:27 10/09/18 03:16 Duoneb 0.5 Mg-3 Mg/3 Ml Soln INHALATION 3 ml RT-Q2H PRN Administration Shortness Of Breath Or Wheezing Albuterol/Ipratropium 3 ml 10/07/18 16:00 10/11/18 16:11 Duoneb 0.5 Mg-3 Mg/3 Ml Soln INHALATION 3 ml RT-QID [facility] Administration Aspirin 81 mg 10/08/18 09:00 10/11/18 10:05 Aspirin PO 81 mg DAILY [facility] Administration Calcium Carbonate/Glycine 500 mg 10/09/18 07:30 10/11/18 06:32 Tums Liquid PO 500 mg BID-W/MEALS [facility] Administration Darbepoetin Von 60 mcg 10/08/18 12:00 10/08/18 14:10 Aranesp SQ 60 mcg Q7D [facility] Administration Ergocalciferol 50,000 unit 10/09/18 12:00 10/09/18 13:11 Vitamin D2 PO 50,000 unit Q72H [facility] Administration Ferrous Sulfate 325 mg 10/08/18 09:00 10/11/18 10:05 Feosol PO 325 mg DAILY AN[facility] Administration Piperacillin Sod/Tazobactam 100 mls @ 25 mls/hr 10/07/18 08:00 10/11/18 10:03 Sod 3.375 gm/ Sodium Chloride IVPB 25 mls/hr Q12H [facility] Administration Fluconazole/Sodium Chloride 50 mls @ 50 mls/hr 10/07/18 21:00 10/10/18 21:07 100 mg/ IV Solution IVPB 50 mls/hr Q24H [facility] Administration Sodium Chloride 1,000 mls @ 40 mls/hr 10/08/18 23:30 10/11/18 10:03 Saline 0.45% IV 70 mls/hr .Q24H AN[facility] Administration Linezolid 600 mg/ IV Solution 300 mls @ 150 mls/hr 10/09/18 21:00 10/11/18 10:20 IVPB 150 mls/hr Q12HR [facility] Administration Protocol Insulin Aspart 0 unit 10/07/18 23:45 10/11/18 12:53 Novolog SQ 100 unit Q6H AN[facility] Administration Protocol Levothyroxine Sodium 25 mcg 10/08/18 06:30 10/11/18 06:27 Synthroid PO 25 mcg 0630 ANTHONY Administration Metoprolol Tartrate 75 mg 10/10/18 21:00 10/11/18 10:05 Lopressor PO 75 mg BID AN[facility] Administration Naloxone HCl 0.2 mg 10/06/18 22:31 Narcan IV Q2M PRN Opioid Reversal Pantoprazole Sodium 40 mg 10/12/18 09:00 Protonix PO DAILY AN[facility]Y Intake and Output 10/11/18 10/11/18 10/11/18 06:59 14:59 22:59 Intake Total 839 1339 399 Output Total 1060 800 425 Balance -221 539 -26 Intake: IV 794 784 189 .9 KVO 160 160 60 Linezolid 600 mg In 150 Dextrose/Water 1 300ml. bag @ 150 mls/hr IVPB Q12HR [facility] Rx#:[id number] Piperacillin-Tazobactam 3 50 100 .375 gm In Sodium Chloride 0.9% 100 ml @ 25 mls/hr IVPB Q12H [facility] Rx# :[id number] Pressure bag 0.9NS 24 24 9 Sodium Chloride 0.45% 1, 560 350 120 000 ml @ 40 mls/hr IV . Q24H [facility] Rx#:[id number] Tube Feeding 45 495 180 Other 60 30 Output: Urine 1060 800 425 Other: Voiding Method Indwelling Catheter Indwelling Catheter Indwelling Catheter Weight 64.4 kg 64.4 kg Patient Weight 10/12/18 06:59 Weight 64.4 kg 10/11/18 05:00 10/11/18 05:00
[2018-10-11 18:10] LABS: Glucose,Whole Blood 137 mg/dL (75-99)
[2018-10-11] MEDS: FLUCONAZOLE IN NACL,ISO-OSM 100 MG in SALINE 1 50ML.BAG IVPB SCH (20:11)
--- NOTE | 2018-10-11 21:36 | P.PN ---
Progress Note - Text Progress Note Date: 10/11/18 Presenting complaint: Short of breath Interval history: This patient was initially admitted to the hospital in August of this year. Was here for quite some time. At that was treated for pneumonia and metabolic nephropathy and was on the ventilator. Patient also found to esophagitis was in septic shock and had acute tubular necrosis. Also GI bleed with multiple blood transfusions. No obvious source of bleeding was found. Patient also had thoracentesis for pleural effusion. Patient also had a PEG tube placed. Patient was here in the hospital about a month ago for UTI and cystitis. This admission patient was found unresponsive at home. [place] to be possible aspiration pneumonia and/or UTI. Patient was extubated on 10/10/2018 Today- . Laying in bed. Tired appearing. Getting tube feeding through his PEG tube running at goal. Patient failed a swallow evaluation today. Telemetry shows PACs . Was not out of the bed. Patient is coughing quite a bit with's swallow trials Review of systems: Was done for constitutional, cardiovascular, GI, pulmonary. relevant finding as above Current medications are reviewed that include: DuoNeb, IV Diflucan, IV linezolid, IV Zosyn On examination: VITAL SIGNS: 97.8, 100, 18, 129/82, 92% on 5 L GENERAL APPEARANCE:. Laying in bed,, tired appearing HEENT: Normal external appearance of nose and ear. Oral cavity dry EYES: Pupils equal. Conjunctiva pale NECK: JVD unable to assess. Mass not palpable. RESPIRATORY: Respiratory effort increased. Lungs-decreased breath sounds CARDIOVASCULAR: First and second sounds normal. No edema. ABDOMEN: Soft. Liver and spleen not palpable. No tenderness. No mass palpable. PEG tube in place PSYCHIATRY: Able to answer questions NEUROLOGICAL: Following commands, moving all 4 limbs Investigations, in clinical context: White count 27.3, hemoglobin 7.7, potassium 3.8, BUN 68, creatinine 3.45 Sputum showing Aracelis albicans and's presumptive staph aureus Assessment: -pneumonia suspected aspiration pneumonia, causing sepsis from staph aureus on admission -Acute hypoxic respiratory failure, secondary to pneumonia, status post ventilator assistance, currently on nasal cannula -Chronic esophagitis -PEG tube, chronic -Hypothyroid -Chronic kidney disease stage III from nephrosclerosis at baseline -Anemia of chronic kidney disease -Anemia from recent GI bleed exact source unknown -Acute renal failure from acute tubal necrosis from underlying sepsis, some improvement -Severe metabolic acidosis status post bicarbonate drip -Dysphagia, failed swallow eval Plan: Continue with current medication treatment plan. Failed swallow eval. Keep nothing by mouth. Continue with PEG tube feeding.
[2018-10-12 00:40] LABS: Glucose,Whole Blood 136 mg/dL (75-99)
[2018-10-12] MEDS: INSULIN ASPART (NovoLOG) 100 UNIT/ML VIAL SQ SCH ×4 (03:54→17:55)
[2018-10-12] MEDS: SODIUM CHLORIDE 0.45% 1,000 ML IV SCH (03:54)
[2018-10-12 06:15] LABS: Glucose,Whole Blood 130 mg/dL (75-99)
[2018-10-12] MEDS: LEVOTHYROXINE 25 MCG TAB PO SCH (06:36)
[2018-10-12] MEDS: CALCIUM CARBONATE LIQUID 500 MG/5 ML CUP PO SCH ×2 (06:37→17:58)
--- NOTE | 2018-10-12 07:32 | XR ---
EXAMINATION TYPE: XR chest 1V portable DATE OF EXAM: 10/12/2018 COMPARISON: 10/11/2018 INDICATION: Tube placement, previous abnormal chest TECHNIQUE: Single frontal view of the chest is obtained. FINDINGS: The heart size is upper limits of normal. The pulmonary vasculature is normal. There is consolidation in the right lower lobe. Consolidation is through the left lower lung field wi th silhouetting the diaphragm. Findings are worsening over the interval. Correlate for pneumonia. IMPRESSION: 1. Worsening bibasilar consolidations. Correlate for pneumonia. Continued follow-up is recommended.
[2018-10-12 07:41] LABS: Calcium 7.5 mg/dL (8.4-10.2); Potassium 3.6 mmol/L (3.5-5.1)
[2018-10-12 07:45] LABS: Anisocytosis Moderate; HCT 29.1 % (39.0-53.0); Hypochromasia Marked; MCH 27.9 pg (25.0-35.0); MCHC 30.9 g/dL (31.0-37.0); MCV 90.3 fL (80.0-100.0); Macrocytosis Slight; Mean Platelet Volume 8.6; Platelet Count 193 k/uL (150-450); Poikilocytosis Moderate; RBC 3.22 m/uL (4.30-5.90); RDW 22.1 % (11.5-15.5); WBC 27.9 k/uL (3.8-10.6)
[2018-10-12] MEDS: IPRATROPIUM-ALBUTEROL 3 ML NEB INHALATION SCH ×4 (07:58→19:31)
[2018-10-12] MEDS: LINEZOLID 600 MG in DEXTROSE/WATER 1 300ML.BAG IVPB SCH (08:19)
[2018-10-12] MEDS: ERGOCALCIFEROL 50,000 UNIT CAP PO SCH (08:20)
[2018-10-12] MEDS: PIPERACILLIN-TAZOBACTAM 3.375 GM in SODIUM CHLORIDE 0.9% 100 ML IVPB SCH (08:20)
[2018-10-12] MEDS: PANTOPRAZOLE SODIUM 40 MG GRANULE PKT PO SCH (08:20)
[2018-10-12] MEDS: FERROUS SULFATE 325 MG TAB PO SCH (08:21)
[2018-10-12] MEDS: ASPIRIN 81 MG PO SCH (08:21)
[2018-10-12] MEDS ORDERED: METOPROLOL TARTRATE 50 MG TAB PO SCH (08:30)
[2018-10-12] MEDS: METOPROLOL TARTRATE 50 MG TAB PO SCH ×2 (08:48→20:38)
[2018-10-12] MEDS: ACETAMINOPHEN TAB 325 MG TAB PO PRN ×2 (09:13→20:38)
[2018-10-12] MEDS ORDERED: FUROSEMIDE 10 MG/ML 4 ML VIAL IV STA (10:26)
[2018-10-12] MEDS: methylPREDNISolone SOD SUCCI 125 MG/2 ML VIAL IV SCH ×2 (11:01→17:57)
[2018-10-12] MEDS: AMPICILLIN-SULBACTAM 3 GM in SODIUM CHLORIDE 0.9% 100 ML IVPB SCH (11:02)
--- NOTE | 2018-10-12 12:08 | PN ---
PROGRESS NOTE The patient is seen for followup for acute kidney injury on top of chronic kidney disease. He was admitted to the hospital with severe metabolic acidosis, sepsis and was eventually intubated for pneumonia. The patient has been extubated. He is doing much better. He has been maintained on IV fluids, which I cut down to 40 mL an hour yesterday. The patient has had good urine output. He has had good oral intake as well. PHYSICAL EXAMINATION: This morning blood pressure was 145/78, heart rate is 72 per minute. Patient is afebrile. EXAMINATION OF THE HEART: S1, S2. EXAMINATION OF THE LUNGS: Bilateral breath sounds are heard. Abdomen is soft, nontender. Examination of lower extremities shows no significant edema. [employer] exam is grossly intact. Patient is moving all 4 extremities. LABS: Labs show sodium 141, potassium 3.6, chloride 108, BUN 61, serum creatinine 3.03, hemoglobin 9.0 g/dL. ASSESSMENT: 1. Acute kidney injury secondary to sepsis, currently improving. Creatinine is down to 3.0. 2. 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 3. Anemia with no active bleeding noted, status post packed RBCs transfusion. Hemoglobin staying stable at 9.0. The patient is maintained on Aranesp. Iron studies were adequate. 4. Pneumonia with hypoxic respiratory failure requiring intubation. Sputum culture growing Aracelis and Staphylococcus aureus. Patient is maintained on antifungal and antibacterial agents. He is on Zyvox and fluconazole. The Zyvox has been switched over to Unasyn. The patient is being followed by ID. 5. Generalized debility. 6. Hypothyroidism. 7. Hypocalcemia associated with severe nutritional vitamin D deficiency, maintained on supplementation. PLAN: Continue to encourage increased oral intake. Continue current IV fluids. Monitor electrolytes. Avoid nephrotoxic agents. Continue calcium and vitamin D supplementation. MMODL / IJN: [id number] /
--- NOTE | 2018-10-12 12:15 | P.PN ---
Subjective Progress Note Date: 10/12/18 Principal diagnosis: Acute sepsis secondary to urinary tract infection and left lower lobe pneumonia. A 68-year-old male patient with extensive medical problems and comorbidities, who was recently discharged home and he was being followed up by a friend and few days later he was found on the ground confused altered weak and he was brought into the hospital where he was found to be hypotensive, hypothermic with temperature of 93.5 and having some leukocytosis with hypernatremia and the sodium ranging 147 and 148 and a creatinine of 5.9 and he was quite acidotic with serum bicarb level was as low as 6 and anion gap of 22. Lactic acid was nonelevated. The patient's blood sugar was at 63. 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 Chest x-ray showed some limited infiltration of the left lung base. CAT scan of the abdomen was done and it showed no significant acute abnormalities in the abdomen other than chronic pancreatitis-type of picture with extensive pancreatic calcification. The patient was given IV fluids, bicarb infusion and the patient was covered with a combination of Zosyn and vancomycin and Diflucan. Currently the patient is in the intensive care unit. Laying comfortably in bed. Urine was quite cloudy and dirty at time of admission and this has improved. The patient is not requiring any pressors at this point in time. This bonding and answering questions appropriately. Note that the patient has a PEG tube in place. This was placed on previous admission due to difficulties in swallowing.In terms of his previous history, this 68-year-old male patient was in our intensive care unit back in July 2018. He was in for septic shock related complications related to staph pneumonia and an same time he had UTI, metabolic acidosis and acute kidney injury. He has previous history of alcoholism and previous history of pancreatitis and previous history of ERCP with insertion of a biliary stent. The patient had staph pneumonia and MSSA was cultured in his sputum. He was intubated back in 06/30/2018 and he was successfully extubated on 07/03/2018. He required BiPAP for some point. He had CHF and bilateral pleural effusion. He was treated with diuretics. He was noted that he was unable to swallow and he was having difficulties with his voice. ENT evaluated the patient the patient was seen by Dr. Street and the patient showed bilateral vocal cord hemorrhage/laryngitis. Vocal cord movement was not good and the patient was anticipated to have vocal cord dysfunction for an extended period of time. In regards to his dysphagia, it was noted that the patient had limited pharyngeal movement and there was concern towards bulbar palsy. He was worked up with an MRI. He is swallow was poor. He was aspirating and he was given a PEG tube for enteral feeding and nutritional support. His acute kidney injury improved and the creatinine on dropped significantly. He was discharged to be readmitted back in October 2018 for another urine checked infection. He was treated and he was discharged home after being treated for pneumonia/UTI. He was discharged home on oral Augmentin. Patient was evaluated today in the intensive care unit on 10/08/2018, remains on mechanical ventilation, patient is on the following ventilator settings assist control rate of 24 tidal volume of 450 FiO2 of 50% and PEEP was done but I cut it down to 8. Patient is off bicarb drip, his IV fluid is 0.45 at 100 mL/h, he is not requiring any pressors, remains on antibiotics in the form of Zosyn and he is also on Diflucan. Propofol is at 45 mcg/kg/m. Again no pressors and no inotropes. His labs showed low hemoglobin of 6.5 hence I will recommend a unit of packed RBCs to be given, his ABG this morning showed a pO2 of 177 pCO2 of 41 pH of 7.37 hence I plan to cut down his PEEP to 5. His electrolytes are normal BUN however is 95 creatinine 4.99, improving considering his creatinine on admission was 7.27. Cultures including blood and urine and sputum are pending. Meds were all reviewed patient is on the when up, Norvasc, fluconazole, insulin as per protocol, levothyroxine, metoprolol, Protonix, Zosyn, propofol, chest x- ray showed COPD and left basilar pneumonia quite extensive. Nutrition-alvarez, the patient will be started on enteral feeding/Nepro today. Reevaluated today on 10/09/2018, remains in the ICU on mechanical ventilation, tidal volume 450 assist-control rate of 24 FiO2 is 50% and I cut down his PEEP down to 5. ABG showed a pO2 of 130 pCO2 of 38 pH of 7.42. Continues to have leukocytosis with WBC count of 21.5 hemoglobin of 8.1. Electrolytes are normal. However his BUN is 84 creatinine 4.40, seems to be a bit improving slowly. Chest x-ray continues to show persistent retrocardiac pneumonia involving the left lower lobe. And possible some pleural effusion/small. Sputum culture is positive for Aracelis and presumptive staph aureus. Urine culture is also positive for Aracelis glabrata. Patient remains on antibiotics in the form of Zosyn, vancomycin, and fluconazole. Patient is on propofol, plan to assess his mental status today by holding propofol he is not quite ready for weaning. Reevaluated today on 10/10/2018, remains in the ICU, on mechanical ventilation, same ventilator settings however his FiO2 down to 35%. Patient is arousable, off propofol at present, seems to follow simple instructions. He is not requiring any pressors. No inotropes, remains on multiple antibiotics including Zyvox, Zosyn, and Diflucan. ABG this morning showed a pO2 of 146 pCO2 of 34 pH of 7.46, and this was on a 50% FiO2. His FiO2 is down to 35% at present. Chest x-ray is showing improvement in his retrocardiac airspace disease and pneumonia/atelectasis at the left lower lobe area. Continues to have leukocytosis with WBC count of 23.4 hemoglobin is 7.5. Electrolytes are normal. Renal profile is improving, creatinine is down to 3.69 steadily declining. Since admission. Urine output is excellent about 100 mL per hour. Patient was reevaluated today on 10/11/2018, patient was extubated yesterday, and he tolerated the extubation well over the last 24 hours. However the patient is not doing well with incentive spirometry, he is not able to cough, and his chest x-ray is showing slight worsening of his infiltrates and atelectasis at the bases. Patient was made aware of his condition, and he was since Raymond on the use of his incentive spirometer, and instructed on deep coughing and deep breathing. In the meantime the patient will remain on bronchodilators antibiotics, and oxygen. And I will keep him in the intensive care unit. Patient continues to have PEG tube feeding. Patient is a great set up for aspiration pneumonia. CBC is a bit worse today, WBC count is up to 27.3 hemoglobin is 7.7 electrolytes are normal however his BUN and creatinine are improving BUN is 68 creatinine is 3.45, urine output is excellent. Not requiring any diuretics. Sputum cultures are positive for Aracelis and for MSSA. Patient was reevaluated today on 10/12/2018, remains in the ICU, his O2 saturation worsened last night, hence the patient was placed on airvo at 60% FiO2 and 60 L/m flow. Saturated presently in the low 90s, patient looks comfortable, however his chest x-ray is showing worsening. There is definitely worsening bibasilar consolidations and infiltrates. Patient is on broad- spectrum antibiotics, he definitely has some difficulty clearing secretions, and he was made aware that if his condition gets any worse, patient may end up requiring reintubation, and eventually will likely require tracheostomy since the patient does have significant difficulty clearing his secretions and he has a very weak cough. WBC count remains high at 27.9, hemoglobin is 9.0 electrodes lites are normal renal profile is improving BUN is 61 creatinine is 3.03. Sputum cultures have been positive for Aracelis and staph aureus/MSSA Objective - Vital Signs Vital signs: Vital Signs Temp 98.5 F 10/12/18 08:00 Pulse 71 10/12/18 11:25 Resp 17 10/12/18 08:00 BP 134/79 10/12/18 08:00 Pulse Ox 94 L 10/12/18 11:25 Intake & Output 10/11/18 10/12/18 10/12/18 18:59 06:59 18:59 Intake Total 1846 2028 865 Output Total 1325 1030 585 Balance 521 998 280 Weight 64.4 kg 66.1 kg Intake: IV 1036 1173 520 .9 KVO 240 240 60 Fluconazole in NaCl,Iso- 50 Osm 100 mg In Saline 1 50ml.bag @ 50 mls/hr IVPB Q24H ANTHONY Rx#:[id number] Linezolid 600 mg In 150 300 300 Dextrose/Water 1 300ml. bag @ 150 mls/hr IVPB Q12HR ANTHONY Rx#:[id number] Piperacillin-Tazobactam 3 100 100 .375 gm In Sodium Chloride 0.9% 100 ml @ 25 mls/hr IVPB Q12H ANTHONY Rx# :[id number] Pressure bag 0.9NS 36 3 Sodium Chloride 0.45% 1, 510 480 160 000 ml @ 40 mls/hr IV . Q24H ANTHONY Rx#:[id number] Tube Feeding 720 765 315 Other 90 90 30 Output: Urine 1325 1030 585 Other: Voiding Method Indwelling Catheter Indwelling Catheter Indwelling Catheter ABP, PAP, CO, CI - Last Documented Arterial Blood Pressure 142/54 - Exam GENERAL EXAM: Revealed 68-year-old white male on high flow oxygen utilizing ai rvo at 60% FiO2 and 60 m/m. HEAD: Normocephalic/atraumatic. EYES: PERRLA, EOMI, no icterus. NOSE: Clear with pink turbinates. THROAT: No erythema or exudates. Moist mucous membranes, endotracheal tube is intact. NECK: No masses, no JVD, no thyroid enlargement, no adenopathy. CHEST: No chest wall deformity. Symmetrical expansion. LUNGS: Crackles and rhonchi noted bilaterally. CVS: Regular rate and rhythm, normal S1 and S2, no gallops, no murmurs, no rubs ABDOMEN: Soft nontender no megaly no rebound no guarding. PEG tube is noted to be intact. EXTREMITIES: Trace of edema no clubbing no cyanosis. MUSCULOSKELETAL arousable, follows simple instructions. Generally weak. CENTRAL NERVOUS SYSTEM: Alert oriented 3, no gross focal neurologic deficits. Skin: No rashes. Psychiatric: Depressed mood blunt affect normal mental status.. Lymphatics: No lymphadenopathy. - Labs CBC & Chem 7: 10/12/18 07:15 10/12/18 07:15 Labs: Abnormal Lab Results - Last 24 Hours (Table) 10/11/18 10/11/18 10/12/18 Range/Units 12:51 17:59 00:27 WBC (3.8-10.6) k/uL RBC (4.30-5.90) m/uL Hgb (13.0-17.5) gm/dL Hct (39.0-53.0) % MCHC (31.0-37.0) g/dL RDW (11.5-15.5) % Chloride (98-107) mmol/L Carbon Dioxide (22-30) mmol/L BUN (9-20) mg/dL Creatinine (0.66-1.25) mg/dL Glucose (74-99) mg/dL POC Glucose (mg/dL) 137 H 137 H 136 H (75-99) mg/dL Calcium (8.4-10.2) mg/dL 10/12/18 10/12/18 10/12/18 Range/Units 06:03 07:15 07:15 WBC 27.9 H (3.8-10.6) k/uL RBC 3.22 L (4.30-5.90) m/uL Hgb 9.0 L (13.0-17.5) gm/dL Hct 29.1 L (39.0-53.0) % MCHC 30.9 L (31.0-37.0) g/dL RDW 22.1 H (11.5-15.5) % Chloride 108 H (98-107) mmol/L Carbon Dioxide 21 L (22-30) mmol/L BUN 61 H (9-20) mg/dL Creatinine 3.03 H (0.66-1.25) mg/dL Glucose 118 H (74-99) mg/dL POC Glucose (mg/dL) 130 H (75-99) mg/dL Calcium 7.5 L (8.4-10.2) mg/dL Microbiology - Last 24 Hours (Table) 10/06/18 12:50 Blood Culture - Preliminary Blood No Growth after 96 hours 10/10/18 09:45 Urine Culture - Final Urine,Catheterized 10/07/18 16:10 Gram Stain - Final Sputum Sputum Culture - Final Aracelis albicans Staphylococcus aureus Assessment and Plan Assessment: Impression: 1 acute hypoxic respiratory failure secondary to acute sepsis, likely sources include urine/urinary tract infection, and pneumonia involving both lower lobes. 2 acute kidney injury secondary to acute tubular necrosis, patient is known to have history of chronic kidney disease stage III. Steadily improving. 3 acute dehydration, improved. 4 acute metabolic acidosis, anion gap on admission was 19. Resolved. 5 history of chronic pancreatitis 6 history of alcoholism 7 history of chronic normocytic anemia, hemoglobin is 7.7 today. 8 previous history of MSSA pneumonia requiring intubation and mechanical venti lation 9 history of focal cord dysfunction 10 previous history of GI bleeding 12 leukocytosis secondary to above. Recommendation: Patient was extubated on 10/10/2018, however considering the worsening chest x-ray, and the relative increase in FiO2 over the last 2 days, I have a feeling the patient may eventually require reintubation and mechanical ventilation. Presently he seems clinically better than expected considering the abnormal findings on the chest x-ray, he is very comfortable and in no distress. Patient was made aware that if reintubated and he will end up requiring tracheostomy and PEG tube placement. CODE STATUS remains full. Condition is extremely guarded. Patient will remain in the ICU. Critical care time is 35 minutes. Time with Patient: Greater than 30
[2018-10-12 12:36] LABS: Glucose,Whole Blood 137 mg/dL (75-99)
--- NOTE | 2018-10-12 13:20 | P.PN ---
Subjective This is Felicia Hurtado PA-C dictating a progress note on this patient The patient was interviewed and examined by me IMPRESSION / ASSESSMENT: Nonsustained wide complex tachycardia, NSVT versus supraventricular tachycardia with aberrancy, asymptomatic echo revealed normal LV function Hypertension PLAN: Increase metoprolol to 100 mg twice a day Continue to monitor telemetry further workup outpatient HPI/interval history Patient is a 68-year-old male who presented to the hospital after a mechanical fall and was found to have pneumonia and sepsis. We were consulted for reported NSVT on telemetry. Patient was asymptomatic. Denies any chest pain, palpitations, dizziness, lightheadedness, or syncope. States the fall that he had at home was related to "tripping over his feet", states he never lost consciousness and remembers the entire incident. He did have a few episodes of nonsustained wide complex tachycardia overnight. Patient did not report any symptoms at that time. EXAMINATION Blood pressure has been in the 130s to 140s systolic, heart rate in the 90s Patient is afebrile, respirations 17, oxygen saturation 93% on high flow nasal cannula Patient seen and examined resting comfortably in bed, no acute distress Lungs with bilateral diffuse rhonchi Heart is regular, normal S1 and S2, no murmurs appreciated No elevated JVD No lower extremity edema REVIEW OF LABS, ECG Echocardiogram showed normal LV size and function, EF 55-60% Telemetry strips revealed a few runs of nonsustained wide complex tachycardia WBC 27.9, hemoglobin 9.0, potassium 3.6, BUN 61, creatinine 3.03 Objective - Vital Signs Vital signs: Vital Signs Temp 98.5 F 10/12/18 12:00 Pulse 71 10/12/18 12:00 Resp 18 10/12/18 12:00 BP 130/84 10/12/18 12:00 Pulse Ox 95 10/12/18 12:00 Intake & Output 10/11/18 10/12/18 10/12/18 18:59 06:59 18:59 Intake Total 1846 2028 1000 Output Total 1325 1030 825 Balance 521 998 175 Weight 64.4 kg 66.1 kg Intake: IV 1036 1173 580 .9 KVO 240 240 80 Fluconazole in NaCl,Iso- 50 Osm 100 mg In Saline 1 50ml.bag @ 50 mls/hr IVPB Q24H [facility] Rx#:[id number] Linezolid 600 mg In 150 300 300 Dextrose/Water 1 300ml. bag @ 150 mls/hr IVPB Q12HR [facility] Rx#:[id number] Piperacillin-Tazobactam 3 100 100 .375 gm In Sodium Chloride 0.9% 100 ml @ 25 mls/hr IVPB Q12H AN[facility] Rx# :[id number] Pressure bag 0.9NS 36 3 Sodium Chloride 0.45% 1, 510 480 200 000 ml @ 40 mls/hr IV . Q24H ANTHONY Rx#:[id number] Tube Feeding 720 765 360 Other 90 90 60 Output: Urine 1325 1030 825 Other: Voiding Method Indwelling Catheter Indwelling Catheter Indwelling Catheter ABP, PAP, CO, CI - Last Documented Arterial Blood Pressure 142/54 - Labs CBC & Chem 7: 10/12/18 07:15 10/12/18 07:15 Labs: Abnormal Lab Results - Last 24 Hours (Table) 10/11/18 10/11/18 10/12/18 Range/Units 12:51 17:59 00:27 WBC (3.8-10.6) k/uL RBC (4.30-5.90) m/uL Hgb (13.0-17.5) gm/dL Hct (39.0-53.0) % MCHC (31.0-37.0) g/dL RDW (11.5-15.5) % Chloride (98-107) mmol/L Carbon Dioxide (22-30) mmol/L BUN (9-20) mg/dL Creatinine (0.66-1.25) mg/dL Glucose (74-99) mg/dL POC Glucose (mg/dL) 137 H 137 H 136 H (75-99) mg/dL Calcium (8.4-10.2) mg/dL 10/12/18 10/12/18 10/12/18 Range/Units 06:03 07:15 07:15 WBC 27.9 H (3.8-10.6) k/uL RBC 3.22 L (4.30-5.90) m/uL Hgb 9.0 L (13.0-17.5) gm/dL Hct 29.1 L (39.0-53.0) % MCHC 30.9 L (31.0-37.0) g/dL RDW 22.1 H (11.5-15.5) % Chloride 108 H (98-107) mmol/L Carbon Dioxide 21 L (22-30) mmol/L BUN 61 H (9-20) mg/dL Creatinine 3.03 H (0.66-1.25) mg/dL Glucose 118 H (74-99) mg/dL POC Glucose (mg/dL) 130 H (75-99) mg/dL Calcium 7.5 L (8.4-10.2) mg/dL 10/12/18 Range/Units 12:24 WBC (3.8-10.6) k/uL RBC (4.30-5.90) m/uL Hgb (13.0-17.5) gm/dL Hct (39.0-53.0) % MCHC (31.0-37.0) g/dL RDW (11.5-15.5) % Chloride (98-107) mmol/L Carbon Dioxide (22-30) mmol/L BUN (9-20) mg/dL Creatinine (0.66-1.25) mg/dL Glucose (74-99) mg/dL POC Glucose (mg/dL) 137 H (75-99) mg/dL Calcium (8.4-10.2) mg/dL Microbiology - Last 24 Hours (Table) 10/06/18 12:50 Blood Culture - Preliminary Blood No Growth after 96 hours 10/10/18 09:45 Urine Culture - Final Urine,Catheterized 10/07/18 16:10 Gram Stain - Final Sputum Sputum Culture - Final Aracelis albicans Staphylococcus aureus
[2018-10-12] MEDS: POTASSIUM CHLORIDE 20 MEQ in WATER FOR INJECTION 1 100ML.BAG IVPB SCH ×2 (14:26→17:57)
--- NOTE | 2018-10-12 15:00 | PN ---
PROGRESS NOTE DATE OF SERVICE: 10/12/2018 REASON FOR FOLLOWUP: 1. MSSA aspiration pneumonia. 2. UTI. INTERVAL HISTORY: The patient is currently afebrile. The patient has been breathing comfortably. Denies having any chest pain. Occasional cough. No nausea or vomiting. No abdominal pain or any worsening diarrhea. PHYSICAL EXAMINATION: Blood pressure is 130/84 with a pulse of 71, temperature 98.5. He is 95% on high-flow oxygen. General description is an elderly male lying in bed in no distress. RESPIRATORY SYSTEM: Unlabored breathing with decreased breath sounds at the base. No wheeze. HEART: S1, S2. Regular rate and rhythm. ABDOMEN: Soft. No tenderness. EXTREMITIES: No edema of the feet. LABS: Hemoglobin 9, white count 27.9. BUN of 61, creatinine 3.03. DIAGNOSTIC IMPRESSION AND PLAN: 1. Patient with aspiration pneumonia. Sputum has grown MSSA, Aracelis albicans. Patient is currently on Unasyn 3 grams q.12. Dose has been adjusted to the kidney function. 2. Elevated white count, more likely steroid effect. The patient is currently on Solu- Medrol 60 q.6. There is no evidence of any worsening of his clinical condition. Will monitor his clinical course closely. MMODL / IJN: [id number] /
[2018-10-12 18:07] LABS: Glucose,Whole Blood 97 mg/dL (75-99)
[2018-10-12] MEDS: FLUCONAZOLE IN NACL,ISO-OSM 100 MG in SALINE 1 50ML.BAG IVPB SCH (20:38)
--- NOTE | 2018-10-12 22:56 | P.PN ---
Progress Note - Text Progress Note Date: 10/12/18 Presenting complaint: Short of breath Interval history: This patient was initially admitted to the hospital in August of this year. Was here for quite some time. At that was treated for pneumonia and metabolic nephropathy and was on the ventilator. Patient also found to esophagitis was in septic shock and had acute tubular necrosis. Also GI bleed with multiple blood transfusions. No obvious source of bleeding was found. Patient also had thoracentesis for pleural effusion. Patient also had a PEG tube placed. Patient was here in the hospital about a month ago for UTI and cystitis. This admission patient was found unresponsive at home. Arabi to be possible aspiration pneumonia and/or UTI. Patient was extubated on 10/10/2018 Today- remains in the ICU. Tired. Telemetry which shows sinus rhythm with some PVCs.. To be short of breath. Placed on Airvo with FiO2 60%. Tired. The c ough. Getting tube feedings. Review of systems: Was done for constitutional, cardiovascular, GI, pulmonary. relevant finding as above Current medications are reviewed that include: DuoNeb, IV Unasyn, IV Diflucan IV Solu-Medrol 60 every 6 On examination: VITAL SIGNS: 98.2, 73, 14, 139/85, 97% on high flow 60% GENERAL APPEARANCE:. Laying in bed,, tired appearing HEENT: Normal external appearance of nose and ear. Oral cavity dry EYES: Pupils equal. Conjunctiva pale NECK: JVD unable to assess. Mass not palpable. RESPIRATORY: Respiratory effort increased. Lungs-decreased breath sounds, occasional crackles CARDIOVASCULAR: First and second sounds normal. No edema. ABDOMEN: Soft. Liver and spleen not palpable. No tenderness. No mass palpable. PEG tube in place PSYCHIATRY: Able to answer questions NEUROLOGICAL: Following commands, moving all 4 limbs Investigations, in clinical context: White count 27.9, hemoglobin 9, potassium 3.6, BUN 61, creatinine 3.03 Sputum showing Aracelis albicans and's MSSA Assessment: -pneumonia suspected aspiration pneumonia, causing sepsis from staph aureus on admission -Acute hypoxic respiratory failure, secondary to pneumonia, status post ventilator assistance, currently on high flow nasal cannula -Chronic esophagitis -PEG tube, chronic -Hypothyroid -Chronic kidney disease stage III from nephrosclerosis at baseline -Anemia of chronic kidney disease -Anemia from recent GI bleed exact source unknown -Acute renal failure from acute tubal necrosis from underlying sepsis, some improvement -Severe metabolic acidosis status post bicarbonate drip -Dysphagia, failed swallow eval Plan: Prognosis remains guarded. Now on IV Unasyn, IV Diflucan. IV Solu-Medrol dose increase. Dr. Keyes from rehab was consulted.
[2018-10-12 23:45] LABS: Glucose,Whole Blood 142 mg/dL (75-99)
[2018-10-13] MEDS: SODIUM CHLORIDE 0.45% 1,000 ML IV SCH (00:26)
[2018-10-13] MEDS: INSULIN ASPART (NovoLOG) 100 UNIT/ML VIAL SQ SCH ×5 (00:26→23:58)
[2018-10-13] MEDS: methylPREDNISolone SOD SUCCI 125 MG/2 ML VIAL IV SCH ×5 (00:29→23:58)
[2018-10-13] MEDS: AMPICILLIN-SULBACTAM 3 GM in SODIUM CHLORIDE 0.9% 100 ML IVPB SCH ×3 (00:29→23:58)
[2018-10-13 05:55] LABS: Anisocytosis Moderate; HCT 30.3 % (39.0-53.0); HGB 9.5 gm/dL (13.0-17.5); Hypochromasia Marked; MCH 28.5 pg (25.0-35.0); MCHC 31.2 g/dL (31.0-37.0); MCV 91.5 fL (80.0-100.0); Macrocytosis Slight; Mean Platelet Volume 9.2; Platelet Count 189 k/uL (150-450); Poikilocytosis Moderate; RBC 3.32 m/uL (4.30-5.90); RDW 22.6 % (11.5-15.5); WBC 15.2 k/uL (3.8-10.6)
[2018-10-13 06:35] LABS: Albumin 2.2 g/dL (3.5-5.0); Calcium 7.7 mg/dL (8.4-10.2); Potassium 4.2 mmol/L (3.5-5.1); Total Bilirubin 0.4 mg/dL (0.2-1.3); Total Protein 5.2 g/dL (6.3-8.2)
[2018-10-13] MEDS ORDERED: FUROSEMIDE 10 MG/ML 4 ML VIAL IV STA (06:46)
[2018-10-13 06:54] LABS: Glucose,Whole Blood 182 mg/dL (75-99)
[2018-10-13] MEDS: LEVOTHYROXINE 25 MCG TAB PO SCH (06:54)
[2018-10-13] MEDS: CALCIUM CARBONATE LIQUID 500 MG/5 ML CUP PO SCH ×2 (06:54→18:11)
--- NOTE | 2018-10-13 07:14 | XR ---
EXAMINATION TYPE: XR chest 1V portable DATE OF EXAM: 10/13/2018 CLINICAL HISTORY: Difficulty breathing progress study. TECHNIQUE: Single AP portable upright view of the chest is obtained. COMPARISON: Chest x-ray from one day earlier and older studies. FINDINGS: Surgical change cervical spine is partially imaged. Cardiac silhouette size is stable and upper limits of normal. There is chronic parenchymal change bilaterally with persistent bibasilar opa cities though some improved aeration is noted since most recent prior. No pneumothorax is seen bilate rally. Osseous structures are intact. IMPRESSION: Chronic parenchymal changes bilaterally with bilateral lower lung edema and/or infiltrate s redemonstrated but improved from most recent prior.
[2018-10-13] MEDS: IPRATROPIUM-ALBUTEROL 3 ML NEB INHALATION SCH ×4 (07:46→20:11)
[2018-10-13] MEDS: METOPROLOL TARTRATE 50 MG TAB PO SCH ×2 (08:17→20:36)
[2018-10-13] MEDS: ASPIRIN 81 MG PO SCH (08:17)
[2018-10-13] MEDS: ACETAMINOPHEN TAB 325 MG TAB PO PRN ×2 (08:17→20:36)
[2018-10-13] MEDS: FERROUS SULFATE 325 MG TAB PO SCH (08:18)
[2018-10-13] MEDS: PANTOPRAZOLE SODIUM 40 MG GRANULE PKT PO SCH (08:18)
--- NOTE | 2018-10-13 11:06 | P.PN ---
Subjective Progress Note Date: 10/13/18 Principal diagnosis: Acute sepsis secondary to urinary tract infection and left lower lobe pneumonia. A 68-year-old male patient with extensive medical problems and comorbidities, who was recently discharged home and he was being followed up by a friend and few days later he was found on the ground confused altered weak and he was brought into the hospital where he was found to be hypotensive, hypothermic with temperature of 93.5 and having some leukocytosis with hypernatremia and the sodium ranging 147 and 148 and a creatinine of 5.9 and he was quite acidotic with serum bicarb level was as low as 6 and anion gap of 22. Lactic acid was nonelevated. The patient's blood sugar was at 63. 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 Chest x-ray showed some limited infiltration of the left lung base. CAT scan of the abdomen was done and it showed no significant acute abnormalities in the abdomen other than chronic pancreatitis-type of picture with extensive pancreatic calcification. The patient was given IV fluids, bicarb infusion and the patient was covered with a combination of Zosyn and vancomycin and Diflucan. Currently the patient is in the intensive care unit. Laying comfortably in bed. Urine was quite cloudy and dirty at time of admission and this has improved. The patient is not requiring any pressors at this point in time. This bonding and answering questions appropriately. Note that the patient has a PEG tube in place. This was placed on previous admission due to difficulties in swallowing.In terms of his previous history, this 68-year-old male patient was in our intensive care unit back in July 2018. He was in for septic shock related complications related to staph pneumonia and an same time he had UTI, metabolic acidosis and acute kidney injury. He has previous history of alcoholism and previous history of pancreatitis and previous history of ERCP with insertion of a biliary stent. The patient had staph pneumonia and MSSA was cultured in his sputum. He was intubated back in 06/30/2018 and he was successfully extubated on 07/03/2018. He required BiPAP for some point. He had CHF and bilateral pleural effusion. He was treated with diuretics. He was noted that he was unable to swallow and he was having difficulties with his voice. ENT evaluated the patient the patient was seen by Dr. Street and the patient showed bilateral vocal cord hemorrhage/laryngitis. Vocal cord movement was not good and the patient was anticipated to have vocal cord dysfunction for an extended period of time. In regards to his dysphagia, it was noted that the patient had limited pharyngeal movement and there was concern towards bulbar palsy. He was worked up with an MRI. He is swallow was poor. He was aspirating and he was given a PEG tube for enteral feeding and nutritional support. His acute kidney injury improved and the creatinine on dropped significantly. He was discharged to be readmitted back in October 2018 for another urine checked infection. He was treated and he was discharged home after being treated for pneumonia/UTI. He was discharged home on oral Augmentin. Patient was evaluated today in the intensive care unit on 10/08/2018, remains on mechanical ventilation, patient is on the following ventilator settings assist control rate of 24 tidal volume of 450 FiO2 of 50% and PEEP was done but I cut it down to 8. Patient is off bicarb drip, his IV fluid is 0.45 at 100 mL/h, he is not requiring any pressors, remains on antibiotics in the form of Zosyn and he is also on Diflucan. Propofol is at 45 mcg/kg/m. Again no pressors and no inotropes. His labs showed low hemoglobin of 6.5 hence I will recommend a unit of packed RBCs to be given, his ABG this morning showed a pO2 of 177 pCO2 of 41 pH of 7.37 hence I plan to cut down his PEEP to 5. His electrolytes are normal BUN however is 95 creatinine 4.99, improving considering his creatinine on admission was 7.27. Cultures including blood and urine and sputum are pending. Meds were all reviewed patient is on the when up, Norvasc, fluconazole, insulin as per protocol, levothyroxine, metoprolol, Protonix, Zosyn, propofol, chest x- ray showed COPD and left basilar pneumonia quite extensive. Nutrition-alvarez, the patient will be started on enteral feeding/Nepro today. Reevaluated today on 10/09/2018, remains in the ICU on mechanical ventilation, tidal volume 450 assist-control rate of 24 FiO2 is 50% and I cut down his PEEP down to 5. ABG showed a pO2 of 130 pCO2 of 38 pH of 7.42. Continues to have leukocytosis with WBC count of 21.5 hemoglobin of 8.1. Electrolytes are normal. However his BUN is 84 creatinine 4.40, seems to be a bit improving slowly. Chest x-ray continues to show persistent retrocardiac pneumonia involving the left lower lobe. And possible some pleural effusion/small. Sputum culture is positive for Aracelis and presumptive staph aureus. Urine culture is also positive for Aracelis glabrata. Patient remains on antibiotics in the form of Zosyn, vancomycin, and fluconazole. Patient is on propofol, plan to assess his mental status today by holding propofol he is not quite ready for weaning. Reevaluated today on 10/10/2018, remains in the ICU, on mechanical ventilation, same ventilator settings however his FiO2 down to 35%. Patient is arousable, off propofol at present, seems to follow simple instructions. He is not requiring any pressors. No inotropes, remains on multiple antibiotics including Zyvox, Zosyn, and Diflucan. ABG this morning showed a pO2 of 146 pCO2 of 34 pH of 7.46, and this was on a 50% FiO2. His FiO2 is down to 35% at present. Chest x-ray is showing improvement in his retrocardiac airspace disease and pneumonia/atelectasis at the left lower lobe area. Continues to have leukocytosis with WBC count of 23.4 hemoglobin is 7.5. Electrolytes are normal. Renal profile is improving, creatinine is down to 3.69 steadily declining. Since admission. Urine output is excellent about 100 mL per hour. Patient was reevaluated today on 10/11/2018, patient was extubated yesterday, and he tolerated the extubation well over the last 24 hours. However the patient is not doing well with incentive spirometry, he is not able to cough, and his chest x-ray is showing slight worsening of his infiltrates and atelectasis at the bases. Patient was made aware of his condition, and he was since [place] on the use of his incentive spirometer, and instructed on deep coughing and deep breathing. In the meantime the patient will remain on bronchodilators antibiotics, and oxygen. And I will keep him in the intensive care unit. Patient continues to have PEG tube feeding. Patient is a great set up for aspiration pneumonia. CBC is a bit worse today, WBC count is up to 27.3 hemoglobin is 7.7 electrolytes are normal however his BUN and creatinine are improving BUN is 68 creatinine is 3.45, urine output is excellent. Not requiring any diuretics. Sputum cultures are positive for Aracelis and for MSSA. Patient was reevaluated today on 10/12/2018, remains in the ICU, his O2 saturation worsened last night, hence the patient was placed on airvo at 60% FiO2 and 60 L/m flow. Saturated presently in the low 90s, patient looks comfortable, however his chest x-ray is showing worsening. There is definitely worsening bibasilar consolidations and infiltrates. Patient is on broad- spectrum antibiotics, he definitely has some difficulty clearing secretions, and he was made aware that if his condition gets any worse, patient may end up requiring reintubation, and eventually will likely require tracheostomy since the patient does have significant difficulty clearing his secretions and he has a very weak cough. WBC count remains high at 27.9, hemoglobin is 9.0 electrodes lites are normal renal profile is improving BUN is 61 creatinine is 3.03. Sputum cultures have been positive for Aracelis and staph aureus/MSSA Reevaluated today on 10/13/2018, patient is feeling much better today compared to yesterday. Clinically the patient is feeling better, less shortness of breath, able to cough better and able to clear some secretions, and he denies any shortness of breath at present. His FiO2 went down from 60% to 40%, remains on high flow airvo at 40 L/m. Patient could be switched possibly to a high flow nasal cannula today. Chest x-ray is improving, but continues to have significant infiltrates and possibly some component of interstitial edema in both lungs. I believe it is mostly pneumonia affecting both lungs. Patient remains on bronchodilators, steroids, antibiotics, and more diuretics will be given today since the patient improved significantly in the last 24 hours. However he is not ready to be transferred out of the ICU at this point yet. CBC showed improvement in his leukocytosis WBC count is down to 15.2. Electrolytes are normal BUN is down to 62 creatinine is down to 3.03. Objective - Vital Signs Vital signs: Vital Signs Temp 98.4 F 10/13/18 08:00 Pulse 75 10/13/18 08:00 Resp 12 10/13/18 08:00 BP 138/87 10/13/18 08:00 Pulse Ox 97 10/13/18 08:55 Intake & Output 10/12/18 10/13/18 10/13/18 18:59 06:59 18:59 Intake Total 1670 1025 335 Output Total 1790 560 595 Balance -120 465 -260 Weight 66.1 kg Intake: IV 800 260 80 .9 KVO 170 210 80 Fluconazole in NaCl,Iso- 50 Osm 100 mg In Saline 1 50ml.bag @ 50 mls/hr IVPB Q24H ANTHONY Rx#:[id number] Linezolid 600 mg In 300 Dextrose/Water 1 300ml. bag @ 150 mls/hr IVPB Q12HR ANTHONY Rx#:[id number] Sodium Chloride 0.45% 1, 330 000 ml @ 10 mls/hr IV . Q24H ANTHONY Rx#:[id number] Tube Feeding 810 675 225 Other 60 90 30 Output: Urine 1790 560 295 Stool 300 Other: Voiding Method Indwelling Catheter Indwelling Catheter Indwelling Catheter ABP, PAP, CO, CI - Last Documented Arterial Blood Pressure 142/54 - Exam GENERAL EXAM: Revealed 68-year-old white male on high flow oxygen utilizing air vo at 40% FiO2 and 40 L/m flow HEAD: Normocephalic/atraumatic. EYES: PERRLA, EOMI, no icterus. NOSE: Clear with pink turbinates. THROAT: No erythema or exudates. Moist mucous membranes, endotracheal tube is intact. NECK: No masses, no JVD, no thyroid enlargement, no adenopathy. CHEST: No chest wall deformity. Symmetrical expansion. LUNGS: Crackles and rhonchi noted bilaterally. More so on forced expiratory maneuver. CVS: Regular rate and rhythm, normal S1 and S2, no gallops, no murmurs, no rubs ABDOMEN: Soft nontender no megaly no rebound no guarding. PEG tube is noted to be intact. EXTREMITIES: Trace of edema no clubbing no cyanosis. MUSCULOSKELETAL arousable, follows simple instructions. Generally weak. CENTRAL NERVOUS SYSTEM: Alert oriented 3, no gross focal neurologic deficits. Skin: No rashes. Psychiatric: Depressed mood blunt affect normal mental status.. Lymphatics: No lymphadenopathy. - Labs CBC & Chem 7: 10/13/18 05:12 10/13/18 05:12 Labs: Abnormal Lab Results - Last 24 Hours (Table) 10/12/18 10/12/18 10/13/18 Range/Units 12:24 23:33 05:12 WBC 15.2 H (3.8-10.6) k/uL RBC 3.32 L (4.30-5.90) m/uL Hgb 9.5 L (13.0-17.5) gm/dL Hct 30.3 L (39.0-53.0) % RDW 22.6 H (11.5-15.5) % Carbon Dioxide (22-30) mmol/L BUN (9-20) mg/dL Creatinine (0.66-1.25) mg/dL Glucose (74-99) mg/dL POC Glucose (mg/dL) 137 H 142 H (75-99) mg/dL Calcium (8.4-10.2) mg/dL AST (17-59) U/L ALT (21-72) U/L Total Protein (6.3-8.2) g/dL Albumin (3.5-5.0) g/dL 10/13/18 10/13/18 Range/Units 05:12 06:42 WBC (3.8-10.6) k/uL RBC (4.30-5.90) m/uL Hgb (13.0-17.5) gm/dL Hct (39.0-53.0) % RDW (11.5-15.5) % Carbon Dioxide 20 L (22-30) mmol/L BUN 62 H (9-20) mg/dL Creatinine 3.03 H (0.66-1.25) mg/dL Glucose 178 H (74-99) mg/dL POC Glucose (mg/dL) 182 H (75-99) mg/dL Calcium 7.7 L (8.4-10.2) mg/dL AST 11 L (17-59) U/L ALT 16 L (21-72) U/L Total Protein 5.2 L (6.3-8.2) g/dL Albumin 2.2 L (3.5-5.0) g/dL Microbiology - Last 24 Hours (Table) 10/06/18 12:50 Blood Culture - Preliminary Blood No Growth after 120 hours Assessment and Plan Assessment: Impression: 1 acute hypoxic respiratory failure secondary to acute sepsis, likely sources i nclude urine/urinary tract infection, and pneumonia involving both lower lobes. 2 acute kidney injury secondary to acute tubular necrosis, patient is known to have history of chronic kidney disease stage III. Steadily improving. 3 acute dehydration, improved. 4 acute metabolic acidosis, anion gap on admission was 19. Resolved. 5 history of chronic pancreatitis 6 history of alcoholism 7 history of chronic normocytic anemia, hemoglobin is 7.7 today. 8 previous history of MSSA pneumonia requiring intubation and mechanical ventilation 9 history of focal cord dysfunction 10 previous history of GI bleeding 12 leukocytosis secondary to above. Improving today compared to yesterday. Recommendation: Patient was extubated on 10/10/2018, yesterday the patient was not doing great, however today he seems to be better, his FiO2 requirement is less, his O2 flow is less, patient is able to clear secretions, chest x-ray is showing improvement, hence my plan is to give the patient in the ICU, continue present supportive care measures including antibiotics, diuretics, bronchodilators, steroids, and if he continues to do well in the next 24 hours may consider transfer out of the ICU. Overall prognosis remains extremely poor and guarded. Time with Patient: Less than 30
[2018-10-13 12:11] LABS: Glucose,Whole Blood 178 mg/dL (75-99)
--- NOTE | 2018-10-13 16:21 | P.PN ---
Subjective Progress Note Date: 10/13/18 This 68-year-old male seen in consultation because of acute kidney injury secondary to septic syndrome. His creatinine is improving. His urine output is documented at the 23 50 mL. Intake of 2695. Vital signs are stable Is unable to eat because of some vocal cord problems in the recent past. He has the PACU. Currently he is on oxygen via nasal cannula. He is awake alert. He has a PEG tube which was placed a few months ago. This admission patient was found unresponsive at home. [place] to be possible aspiration pneumonia and/or UTI. Patient was extubated on 10/10/2018 His known with nonsustained wide-complex tachycardia, pneumonia, Objective - Vital Signs Vital signs: Vital Signs Temp 98.2 F 10/13/18 12:00 Pulse 74 10/13/18 15:06 Resp 21 10/13/18 15:00 BP 144/76 10/13/18 15:00 Pulse Ox 97 10/13/18 15:00 Intake & Output 10/12/18 10/13/18 10/13/18 18:59 06:59 18:59 Intake Total 1670 1025 870 Output Total 1790 560 935 Balance -120 465 -65 Weight 66.1 kg Intake: IV 800 260 180 .9 KVO 170 210 180 Fluconazole in NaCl,Iso- 50 Osm 100 mg In Saline 1 50ml.bag @ 50 mls/hr IVPB Q24H ANTH[facility] Rx#:[id number] Linezolid 600 mg In 300 Dextrose/Water 1 300ml. bag @ 150 mls/hr IVPB Q12HR ANTHONY Rx#:[id number] Sodium Chloride 0.45% 1, 330 000 ml @ 10 mls/hr IV . Q24H ANTHONY Rx#:[id number] Tube Feeding 810 675 630 Other 60 90 60 Output: Urine 1790 560 635 Stool 300 Other: Voiding Method Indwelling Catheter Indwelling Catheter Indwelling Catheter ABP, PAP, CO, CI - Last Documented Arterial Blood Pressure 142/54 On examination is awake alert oriented comfortable on nasal cannula HEENT exam no JVP neck is supple no facial asymmetry Lungs clear to auscultation good air entry bilaterally Heart sounds are unremarkable for any murmur rub gallop Abdomen soft nontender PEG tube Extremity exam was no edema Neurologically awake alert oriented - Labs CBC & Chem 7: 10/13/18 05:12 10/13/18 05:12 Labs: Abnormal Lab Results - Last 24 Hours (Table) 10/12/18 10/13/18 10/13/18 Range/Units 23:33 05:12 05:12 WBC 15.2 H (3.8-10.6) k/uL RBC 3.32 L (4.30-5.90) m/uL Hgb 9.5 L (13.0-17.5) gm/dL Hct 30.3 L (39.0-53.0) % RDW 22.6 H (11.5-15.5) % Carbon Dioxide 20 L (22-30) mmol/L BUN 62 H (9-20) mg/dL Creatinine 3.03 H (0.66-1.25) mg/dL Glucose 178 H (74-99) mg/dL POC Glucose (mg/dL) 142 H (75-99) mg/dL Calcium 7.7 L (8.4-10.2) mg/dL AST 11 L (17-59) U/L ALT 16 L (21-72) U/L Total Protein 5.2 L (6.3-8.2) g/dL Albumin 2.2 L (3.5-5.0) g/dL 10/13/18 10/13/18 Range/Units 06:42 12:00 WBC (3.8-10.6) k/uL RBC (4.30-5.90) m/uL Hgb (13.0-17.5) gm/dL Hct (39.0-53.0) % RDW (11.5-15.5) % Carbon Dioxide (22-30) mmol/L BUN (9-20) mg/dL Creatinine (0.66-1.25) mg/dL Glucose (74-99) mg/dL POC Glucose (mg/dL) 182 H 178 H (75-99) mg/dL Calcium (8.4-10.2) mg/dL AST (17-59) U/L ALT (21-72) U/L Total Protein (6.3-8.2) g/dL Albumin (3.5-5.0) g/dL Microbiology - Last 24 Hours (Table) 10/06/18 12:50 Blood Culture - Final Blood No Growth after 144 hours Assessment and Plan Assessment: Impression 1. Acute kidney injury secondary to septic syndrome responding now with creatinine coming down from a peak of 7.27 on 10/06/2018 to 3.03 yesterday and today stable 2. Chronic kidney disease, baseline creatinine is approximately 2.23 on 09/14/2018 and the past has varied up to 6.3 on 06/30/2018 and creatinine was 5 mg dated 07/01/2018 3. mild degree of acidosis improving mostly non-gap. Bicarb is 20. 4. Anemia of chronic kidney disease. Recommendations. 1. Continue PEG feeding. 2. Watch labs. Including hemoglobin renal profile calcium phosphorus.
[2018-10-13 18:20] LABS: Glucose,Whole Blood 140 mg/dL (75-99)
[2018-10-13] MEDS: FLUCONAZOLE IN NACL,ISO-OSM 100 MG in SALINE 1 50ML.BAG IVPB SCH (20:36)
--- NOTE | 2018-10-13 20:39 | P.PN ---
Progress Note - Text Progress Note Date: 10/13/18 Presenting complaint: Short of breath Interval history: This patient was initially admitted to the hospital in August of this year. Was here for quite some time. At that was treated for pneumonia and metabolic nephropathy and was on the ventilator. Patient also found to esophagitis was in septic shock and had acute tubular necrosis. Also GI bleed with multiple blood transfusions. No obvious source of bleeding was found. Patient also had thoracentesis for pleural effusion. Patient also had a PEG tube placed. Patient was here in the hospital about a month ago for UTI and cystitis. This admission patient was found unresponsive at home. [place] to be possible aspiration pneumonia and/or UTI. Patient was extubated on 10/10/2018 Today- . Improving. Set up in a chair. More alert. Still on a airvo, but FiO2 is down to 30%. Patient is nothing by mouth because of failed swallow. tu be feeding to goal. Review of systems: Was done for constitutional, cardiovascular, GI, pulmonary. relevant finding as above Current medications are reviewed that include: DuoNeb, IV Unasyn, IV Diflucan IV Solu-Medrol 60 every 6 On examination: VITAL SIGNS: 98.5, 78, 17, 139/80, 95% on 4 L GENERAL APPEARANCE:. Sitting up in a chair, more perky HEENT: Normal external appearance of nose and ear. Oral cavity dry EYES: Pupils equal. Conjunctiva pale NECK: JVD unable to assess. Mass not palpable. RESPIRATORY: Respiratory effort increased. Lungs-decreased breath sounds, occasional crackles CARDIOVASCULAR: First and second sounds normal. No edema. ABDOMEN: Soft. Liver and spleen not palpable. No tenderness. No mass palpable. PEG tube in place PSYCHIATRY: Able to answer questions NEUROLOGICAL: Following commands, moving all 4 limbs Investigations, in clinical context: White count 15.2 hemoglobin 9.5 potassium 4.2 BUN 62 creatinine 3.03 Sputum showing Aracelis albicans and's MSSA Assessment: -pneumonia suspected aspiration pneumonia, causing sepsis from staph aureus on admission -Acute hypoxic respiratory failure, secondary to pneumonia, status post ventilator assistance, currently on high flow nasal cannula -Chronic esophagitis -PEG tube, chronic -Hypothyroid -Chronic kidney disease stage III from nephrosclerosis at baseline -Anemia of chronic kidney disease -Anemia from recent GI bleed exact source unknown -Acute renal failure from acute tubal necrosis from underlying sepsis, some improvement -Severe metabolic acidosis status post bicarbonate drip -Dysphagia, failed swallow eval, currently nothing by mouth Plan: Patient is looking better. Repeat swallow eval on Monday. Tube feeding and antibiotics to continue. Solu-Medrol dose can be cut back tomorrow.
--- NOTE | 2018-10-13 20:55 | P.PN ---
Subjective Mr. Enamorado is resting comfortably in bed. his blood pressure is 138/87 mmHg respirations are 12 pulse rate in the 70s Afebrile 98.4 F Breath sounds are clear no rhonchi no crackles Heart sounds S1 S2 are normal and regular Abdomen soft nontender Extremities warm no edema Impression patient with multiple medical problems being for infection Cardiology consultation for nonsustained wide-complex tachycardia ,occasional spells , asymptomatic Since yesterday I do not see any further arrhythmias His labs were reviewed sodium is 139 BUN 62 creatinine 3.03 Suggest from a cardiac standpoint 2-D echo Doppler study are normal with normal LV function and he is on IV antibiotics at this time and metoprolol 100 mg twice daily which he is tolerating well Plan Continue metoprolol and aspirin I will add statins Continue diabetes management and management of his infection. Outpatient follow-up with Dr. Uribe for further evaluation. He is completely asymptomatic at this time Objective - Vital Signs Vital signs: Vital Signs Temp 98.2 F 10/13/18 12:00 Pulse 74 10/13/18 15:06 Resp 21 10/13/18 15:00 BP 144/76 10/13/18 15:00 Pulse Ox 97 10/13/18 15:00 Intake & Output 10/12/18 10/13/18 10/13/18 18:59 06:59 18:59 Intake Total 1670 1025 870 Output Total 1790 560 935 Balance -120 465 -65 Weight 66.1 kg Intake: IV 800 260 180 .9 KVO 170 210 180 Fluconazole in NaCl,Iso- 50 Osm 100 mg In Saline 1 50ml.bag @ 50 mls/hr IVPB Q24H AN[facility] Rx#:[id number] Linezolid 600 mg In 300 Dextrose/Water 1 300ml. bag @ 150 mls/hr IVPB Q12HR ANTHONY Rx#:[id number] Sodium Chloride 0.45% 1, 330 000 ml @ 10 mls/hr IV . Q24H ANTHONY Rx#:[id number] Tube Feeding 810 675 630 Other 60 90 60 Output: Urine 1790 560 635 Stool 300 Other: Voiding Method Indwelling Catheter Indwelling Catheter Indwelling Catheter ABP, PAP, CO, CI - Last Documented Arterial Blood Pressure 142/54 - Labs CBC & Chem 7: 10/13/18 05:12 10/13/18 05:12 Labs: Abnormal Lab Results - Last 24 Hours (Table) 10/12/18 10/13/18 10/13/18 Range/Units 23:33 05:12 05:12 WBC 15.2 H (3.8-10.6) k/uL RBC 3.32 L (4.30-5.90) m/uL Hgb 9.5 L (13.0-17.5) gm/dL Hct 30.3 L (39.0-53.0) % RDW 22.6 H (11.5-15.5) % Carbon Dioxide 20 L (22-30) mmol/L BUN 62 H (9-20) mg/dL Creatinine 3.03 H (0.66-1.25) mg/dL Glucose 178 H (74-99) mg/dL POC Glucose (mg/dL) 142 H (75-99) mg/dL Calcium 7.7 L (8.4-10.2) mg/dL AST 11 L (17-59) U/L ALT 16 L (21-72) U/L Total Protein 5.2 L (6.3-8.2) g/dL Albumin 2.2 L (3.5-5.0) g/dL 10/13/18 10/13/18 Range/Units 06:42 12:00 WBC (3.8-10.6) k/uL RBC (4.30-5.90) m/uL Hgb (13.0-17.5) gm/dL Hct (39.0-53.0) % RDW (11.5-15.5) % Carbon Dioxide (22-30) mmol/L BUN (9-20) mg/dL Creatinine (0.66-1.25) mg/dL Glucose (74-99) mg/dL POC Glucose (mg/dL) 182 H 178 H (75-99) mg/dL Calcium (8.4-10.2) mg/dL AST (17-59) U/L ALT (21-72) U/L Total Protein (6.3-8.2) g/dL Albumin (3.5-5.0) g/dL Microbiology - Last 24 Hours (Table) 10/06/18 12:50 Blood Culture - Final Blood No Growth after 144 hours
[2018-10-13 23:59] LABS: Glucose,Whole Blood 170 mg/dL (75-99)
[2018-10-14] MEDS: ACETAMINOPHEN TAB 325 MG TAB PO PRN ×2 (02:45→21:44)
[2018-10-14 05:46] LABS: Anisocytosis Moderate; HCT 31.2 % (39.0-53.0); HGB 9.2 gm/dL (13.0-17.5); Hypochromasia Marked; MCH 27.8 pg (25.0-35.0); MCHC 29.6 g/dL (31.0-37.0); MCV 93.8 fL (80.0-100.0); Macrocytosis Slight; Mean Platelet Volume 8.2; Platelet Count 215 k/uL (150-450); Poikilocytosis Slight; RBC 3.33 m/uL (4.30-5.90); RDW 22.2 % (11.5-15.5); WBC 12.8 k/uL (3.8-10.6)
[2018-10-14 06:00] LABS: Albumin 2.4 g/dL (3.5-5.0); Calcium 7.9 mg/dL (8.4-10.2); Potassium 3.6 mmol/L (3.5-5.1); Total Bilirubin 0.4 mg/dL (0.2-1.3); Total Protein 5.6 g/dL (6.3-8.2)
[2018-10-14 06:20] LABS: Glucose,Whole Blood 169 mg/dL (75-99)
[2018-10-14] MEDS: INSULIN ASPART (NovoLOG) 100 UNIT/ML VIAL SQ SCH ×3 (06:21→18:37)
[2018-10-14] MEDS: LEVOTHYROXINE 25 MCG TAB PO SCH (06:47)
[2018-10-14] MEDS: CALCIUM CARBONATE LIQUID 500 MG/5 ML CUP PO SCH ×2 (06:47→18:37)
[2018-10-14] MEDS: methylPREDNISolone SOD SUCCI 125 MG/2 ML VIAL IV SCH ×2 (06:47→12:24)
[2018-10-14] MEDS: IPRATROPIUM-ALBUTEROL 3 ML NEB INHALATION SCH ×4 (07:57→20:13)
[2018-10-14] MEDS: SODIUM CHLORIDE 0.45% 1,000 ML IV SCH (08:04)
[2018-10-14] MEDS: ASPIRIN 81 MG PO SCH (08:05)
[2018-10-14] MEDS: FERROUS SULFATE 325 MG TAB PO SCH (08:05)
[2018-10-14] MEDS: PANTOPRAZOLE SODIUM 40 MG GRANULE PKT PO SCH (08:06)
--- NOTE | 2018-10-14 09:15 | P.PN ---
Subjective Progress Note Date: 10/14/18 This 68-year-old male seen in consultation because of acute kidney injury secondary to septic syndrome. He was unresponsive at home and had aspiration pneumonia and Aracelis in his urine culture. He is improving overall. Continues to have cough. No shortness of breath. No nausea vomiting but does have significant diarrhea. His creatinine is improving. His chest x-rays improving His urine output is documented at the 21 20 mL an intake of 21 50 mL Vital signs are stable Is unable to eat because of some vocal cord problems in the recent past. he does have a good appetite though. He has a PEG feeding. He has a PEG tube which was placed a few months ago. Patient was extubated on 10/10/2018 His known with nonsustained wide-complex tachycardia, pneumonia, Objective - Vital Signs Vital signs: Vital Signs Temp 97.4 F L 10/14/18 08:00 Pulse 74 10/14/18 08:07 Resp 15 10/14/18 08:00 BP 137/83 10/14/18 08:00 Pulse Ox 96 10/14/18 08:00 Intake & Output 10/13/18 10/14/18 10/14/18 18:59 06:59 18:59 Intake Total 1065 1085 130 Output Total 1195 925 210 Balance -130 160 -80 Weight 62.9 kg Intake: IV 240 350 40 .9 KVO 240 130 20 Ampicillin-Sulbactam 3 gm 100 In Sodium Chloride 0.9% 100 ml @ 200 mls/hr IVPB Q12H [facility] Rx#:[id number] Fluconazole in NaCl,Iso- 50 Osm 100 mg In Saline 1 50ml.bag @ 50 mls/hr IVPB Q24H [facility] Rx#:[id number] Sodium Chloride 0.45% 1, 70 20 000 ml @ 10 mls/hr IV . Q24H [facility] Rx#:[id number] Tube Feeding 765 675 90 Other 60 60 Output: Urine 895 925 210 Stool 300 Other: Voiding Method Indwelling Catheter Indwelling Catheter Indwelling Catheter ABP, PAP, CO, CI - Last Documented Arterial Blood Pressure 142/54 On examination is awake alert oriented comfortable He has a PEG feeding. Unable to read because of vocal cord problems. Last few months. HEENT exam no JVP neck is supple no facial asymmetry Lungs are clear to auscultation fair air entry bilaterally Heart sounds are unremarkable for any murmur rub gallop Abdomen soft nontender nondistended PEG tube Extremity exam was no edema Neurologically awake alert oriented has generalized weakness - Labs CBC & Chem 7: 10/14/18 05:22 10/14/18 05:22 Labs: Abnormal Lab Results - Last 24 Hours (Table) 10/13/18 10/13/18 10/13/18 Range/Units 12:00 18:09 23:46 WBC (3.8-10.6) k/uL RBC (4.30-5.90) m/uL Hgb (13.0-17.5) gm/dL Hct (39.0-53.0) % MCHC (31.0-37.0) g/dL RDW (11.5-15.5) % Chloride (98-107) mmol/L Carbon Dioxide (22-30) mmol/L BUN (9-20) mg/dL Creatinine (0.66-1.25) mg/dL Glucose (74-99) mg/dL POC Glucose (mg/dL) 178 H 140 H 170 H (75-99) mg/dL Calcium (8.4-10.2) mg/dL AST (17-59) U/L ALT (21-72) U/L Total Protein (6.3-8.2) g/dL Albumin (3.5-5.0) g/dL 10/14/18 10/14/18 10/14/18 Range/Units 05:22 05:22 05:57 WBC 12.8 H (3.8-10.6) k/uL RBC 3.33 L (4.30-5.90) m/uL Hgb 9.2 L (13.0-17.5) gm/dL Hct 31.2 L (39.0-53.0) % MCHC 29.6 L (31.0-37.0) g/dL RDW 22.2 H (11.5-15.5) % Chloride 108 H (98-107) mmol/L Carbon Dioxide 21 L (22-30) mmol/L BUN 70 H (9-20) mg/dL Creatinine 2.97 H (0.66-1.25) mg/dL Glucose 161 H (74-99) mg/dL POC Glucose (mg/dL) 169 H (75-99) mg/dL Calcium 7.9 L (8.4-10.2) mg/dL AST 14 L (17-59) U/L ALT 11 L (21-72) U/L Total Protein 5.6 L (6.3-8.2) g/dL Albumin 2.4 L (3.5-5.0) g/dL Microbiology - Last 24 Hours (Table) 10/06/18 12:50 Blood Culture - Final Blood No Growth after 144 hours Assessment and Plan Assessment: Impression 1. Acute kidney injury secondary to septic syndrome responding now with creatinine coming down from a peak of 7.27 on 10/06/2018 to 2.97 today 2. Chronic kidney disease, baseline creatinine is approximately 2.23 on 09/14/2018 and the past has varied up to 6.3 on 06/30/2018 and creatinine was 5 mg dated 07/01/2018 3. mild degree of acidosis improving mostly non-gap. Bicarb is 21. 4. Anemia of chronic kidney disease. hemoglobin 9.2, stable Recommendations. 1. Continue PEG feeding. 2. Watch labs. Including hemoglobin renal profile calcium phosphorus.
--- NOTE | 2018-10-14 09:29 | XR ---
EXAMINATION TYPE: XR chest 1V portable DATE OF EXAM: 10/14/2018 COMPARISON: 10/13/2018 INDICATION: Pneumonia cough TECHNIQUE: Single frontal view of the chest is obtained. FINDINGS: The heart size is mildly prominent. The pulmonary vasculature is bibasilar infiltrates are present. This is slightly improved from the pr evious study.. IMPRESSION: 1. Resolving bibasilar infiltrates. Correlate for pneumonia. 2. Small left pleural effusion may be present.
--- NOTE | 2018-10-14 11:27 | P.PN ---
Subjective Progress Note Date: 10/14/18 Principal diagnosis: Acute sepsis secondary to urinary tract infection and left lower lobe pneumonia. A 68-year-old male patient with extensive medical problems and comorbidities, who was recently discharged home and he was being followed up by a friend and few days later he was found on the ground confused altered weak and he was brought into the hospital where he was found to be hypotensive, hypothermic with temperature of 93.5 and having some leukocytosis with hypernatremia and the sodium ranging 147 and 148 and a creatinine of 5.9 and he was quite acidotic with serum bicarb level was as low as 6 and anion gap of 22. Lactic acid was nonelevated. The patient's blood sugar was at 63. 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 Chest x-ray showed some limited infiltration of the left lung base. CAT scan of the abdomen was done and it showed no significant acute abnormalities in the abdomen other than chronic pancreatitis-type of picture with extensive pancreatic calcification. The patient was given IV fluids, bicarb infusion and the patient was covered with a combination of Zosyn and vancomycin and Diflucan. Currently the patient is in the intensive care unit. Laying comfortably in bed. Urine was quite cloudy and dirty at time of admission and this has improved. The patient is not requiring any pressors at this point in time. This bonding and answering questions appropriately. Note that the patient has a PEG tube in place. This was placed on previous admission due to difficulties in swallowing.In terms of his previous history, this 68-year-old male patient was in our intensive care unit back in July 2018. He was in for septic shock related complications related to staph pneumonia and an same time he had UTI, metabolic acidosis and acute kidney injury. He has previous history of alcoholism and previous history of pancreatitis and previous history of ERCP with insertion of a biliary stent. The patient had staph pneumonia and MSSA was cultured in his sputum. He was intubated back in 06/30/2018 and he was successfully extubated on 07/03/2018. He required BiPAP for some point. He had CHF and bilateral pleural effusion. He was treated with diuretics. He was noted that he was unable to swallow and he was having difficulties with his voice. ENT evaluated the patient the patient was seen by Dr. Street and the patient showed bilateral vocal cord hemorrhage/laryngitis. Vocal cord movement was not good and the patient was anticipated to have vocal cord dysfunction for an extended period of time. In regards to his dysphagia, it was noted that the patient had limited pharyngeal movement and there was concern towards bulbar palsy. He was worked up with an MRI. He is swallow was poor. He was aspirating and he was given a PEG tube for enteral feeding and nutritional support. His acute kidney injury improved and the creatinine on dropped significantly. He was discharged to be readmitted back in October 2018 for another urine checked infection. He was treated and he was discharged home after being treated for pneumonia/UTI. He was discharged home on oral Augmentin. Patient was evaluated today in the intensive care unit on 10/08/2018, remains on mechanical ventilation, patient is on the following ventilator settings assist control rate of 24 tidal volume of 450 FiO2 of 50% and PEEP was done but I cut it down to 8. Patient is off bicarb drip, his IV fluid is 0.45 at 100 mL/h, he is not requiring any pressors, remains on antibiotics in the form of Zosyn and he is also on Diflucan. Propofol is at 45 mcg/kg/m. Again no pressors and no inotropes. His labs showed low hemoglobin of 6.5 hence I will recommend a unit of packed RBCs to be given, his ABG this morning showed a pO2 of 177 pCO2 of 41 pH of 7.37 hence I plan to cut down his PEEP to 5. His electrolytes are normal BUN however is 95 creatinine 4.99, improving considering his creatinine on admission was 7.27. Cultures including blood and urine and sputum are pending. Meds were all reviewed patient is on the when up, Norvasc, fluconazole, insulin as per protocol, levothyroxine, metoprolol, Protonix, Zosyn, propofol, chest x- ray showed COPD and left basilar pneumonia quite extensive. Nutrition-alvarez, the patient will be started on enteral feeding/Nepro today. Reevaluated today on 10/09/2018, remains in the ICU on mechanical ventilation, tidal volume 450 assist-control rate of 24 FiO2 is 50% and I cut down his PEEP down to 5. ABG showed a pO2 of 130 pCO2 of 38 pH of 7.42. Continues to have leukocytosis with WBC count of 21.5 hemoglobin of 8.1. Electrolytes are normal. However his BUN is 84 creatinine 4.40, seems to be a bit improving slowly. Chest x-ray continues to show persistent retrocardiac pneumonia involving the left lower lobe. And possible some pleural effusion/small. Sputum culture is positive for Aracelis and presumptive staph aureus. Urine culture is also positive for Aracelis glabrata. Patient remains on antibiotics in the form of Zosyn, vancomycin, and fluconazole. Patient is on propofol, plan to assess his mental status today by holding propofol he is not quite ready for weaning. Reevaluated today on 10/10/2018, remains in the ICU, on mechanical ventilation, same ventilator settings however his FiO2 down to 35%. Patient is arousable, off propofol at present, seems to follow simple instructions. He is not requiring any pressors. No inotropes, remains on multiple antibiotics including Zyvox, Zosyn, and Diflucan. ABG this morning showed a pO2 of 146 pCO2 of 34 pH of 7.46, and this was on a 50% FiO2. His FiO2 is down to 35% at present. Chest x-ray is showing improvement in his retrocardiac airspace disease and pneumonia/atelectasis at the left lower lobe area. Continues to have leukocytosis with WBC count of 23.4 hemoglobin is 7.5. Electrolytes are normal. Renal profile is improving, creatinine is down to 3.69 steadily declining. Since admission. Urine output is excellent about 100 mL per hour. Patient was reevaluated today on 10/11/2018, patient was extubated yesterday, and he tolerated the extubation well over the last 24 hours. However the patient is not doing well with incentive spirometry, he is not able to cough, and his chest x-ray is showing slight worsening of his infiltrates and atelectasis at the bases. Patient was made aware of his condition, and he was since [place] on the use of his incentive spirometer, and instructed on deep coughing and deep breathing. In the meantime the patient will remain on bronchodilators antibiotics, and oxygen. And I will keep him in the intensive care unit. Patient continues to have PEG tube feeding. Patient is a great set up for aspiration pneumonia. CBC is a bit worse today, WBC count is up to 27.3 hemoglobin is 7.7 electrolytes are normal however his BUN and creatinine are improving BUN is 68 creatinine is 3.45, urine output is excellent. Not requiring any diuretics. Sputum cultures are positive for Aracelis and for MSSA. Patient was reevaluated today on 10/12/2018, remains in the ICU, his O2 saturation worsened last night, hence the patient was placed on airvo at 60% FiO2 and 60 L/m flow. Saturated presently in the low 90s, patient looks comfortable, however his chest x-ray is showing worsening. There is definitely worsening bibasilar consolidations and infiltrates. Patient is on broad- spectrum antibiotics, he definitely has some difficulty clearing secretions, and he was made aware that if his condition gets any worse, patient may end up requiring reintubation, and eventually will likely require tracheostomy since the patient does have significant difficulty clearing his secretions and he has a very weak cough. WBC count remains high at 27.9, hemoglobin is 9.0 electrodes lites are normal renal profile is improving BUN is 61 creatinine is 3.03. Sputum cultures have been positive for Aracelis and staph aureus/MSSA Reevaluated today on 10/13/2018, patient is feeling much better today compared to yesterday. Clinically the patient is feeling better, less shortness of breath, able to cough better and able to clear some secretions, and he denies any shortness of breath at present. His FiO2 went down from 60% to 40%, remains on high flow airvo at 40 L/m. Patient could be switched possibly to a high flow nasal cannula today. Chest x-ray is improving, but continues to have significant infiltrates and possibly some component of interstitial edema in both lungs. I believe it is mostly pneumonia affecting both lungs. Patient remains on bronchodilators, steroids, antibiotics, and more diuretics will be given today since the patient improved significantly in the last 24 hours. However he is not ready to be transferred out of the ICU at this point yet. CBC showed improvement in his leukocytosis WBC count is down to 15.2. Electrolytes are normal BUN is down to 62 creatinine is down to 3.03. Reevaluated today on 10/14/2018, patient continues to show slow but steady improvement. He remains in the ICU, remains on bronchodilators, antibiotics, steroids, and diuretics. He remains on high flow oxygen, and has been clearly showing some improvement in the last 2 days only. Patient was extubated 3 days ago. And he tolerated the extubation well. His renal functioning continues to improve, initial creatinine was 7.27, and now it is 2.97. His basic metabolic profile otherwise is unremarkable. WBC count is down to 12.8 hemoglobin is 9.2. Patient is comfortable, in no distress, he is able to cough much better today compared to the last few days, and he remains in the ICU, I plan to keep him another day, possibly transfer out of the ICU in the next 24 hours. Objective - Vital Signs Vital signs: Vital Signs Temp 97.4 F L 10/14/18 08:00 Pulse 70 10/14/18 11:00 Resp 11 L 10/14/18 11:00 BP 141/76 10/14/18 11:00 Pulse Ox 99 10/14/18 11:00 Intake & Output 10/13/18 10/14/18 10/14/18 18:59 06:59 18:59 Intake Total 1065 1085 445 Output Total 1195 925 410 Balance -130 160 35 Weight 62.9 kg Intake: IV 240 350 100 .9 KVO 240 130 50 Ampicillin-Sulbactam 3 gm 100 In Sodium Chloride 0.9% 100 ml @ 200 mls/hr IVPB Q12H [facility] Rx#:[id number] Fluconazole in NaCl,Iso- 50 Osm 100 mg In Saline 1 50ml.bag @ 50 mls/hr IVPB Q24H [facility] Rx#:[id number] Sodium Chloride 0.45% 1, 70 50 000 ml @ 10 mls/hr IV . Q24H [facility] Rx#:[id number] Tube Feeding 765 675 315 Other 60 60 30 Output: Urine 895 925 410 Stool 300 Other: Voiding Method Indwelling Catheter Indwelling Catheter Indwelling Catheter ABP, PAP, CO, CI - Last Documented Arterial Blood Pressure 142/54 - Exam GENERAL EXAM: Revealed 68-year-old white male on high flow oxygen utilizing airvo HEAD: Normocephalic/atraumatic. EYES: PERRLA, EOMI, no icterus. NOSE: Clear with pink turbinates. THROAT: No erythema or exudates. Moist mucous membranes, endotracheal tube is intact. NECK: No masses, no JVD, no thyroid enlargement, no adenopathy. CHEST: No chest wall deformity. Symmetrical expansion. LUNGS: Crackles at the bases, no rhonchi no wheezes. CVS: Regular rate and rhythm, normal S1 and S2, no gallops, no murmurs, no rubs ABDOMEN: Soft nontender no megaly no rebound no guarding. PEG tube is noted to be intact. EXTREMITIES: Trace of edema no clubbing no cyanosis. MUSCULOSKELETAL generally weak, otherwise unremarkable. CENTRAL NERVOUS SYSTEM: Alert oriented 3, no gross focal neurologic deficits. Skin: No rashes. Psychiatric: Depressed mood blunt affect normal mental status.. Lymphatics: No lymphadenopathy. - Labs CBC & Chem 7: 10/14/18 05:22 10/14/18 05:22 Labs: Abnormal Lab Results - Last 24 Hours (Table) 10/13/18 10/13/18 10/13/18 Range/Units 12:00 18:09 23:46 WBC (3.8-10.6) k/uL RBC (4.30-5.90) m/uL Hgb (13.0-17.5) gm/dL Hct (39.0-53.0) % MCHC (31.0-37.0) g/dL RDW (11.5-15.5) % Chloride (98-107) mmol/L Carbon Dioxide (22-30) mmol/L BUN (9-20) mg/dL Creatinine (0.66-1.25) mg/dL Glucose (74-99) mg/dL POC Glucose (mg/dL) 178 H 140 H 170 H (75-99) mg/dL Calcium (8.4-10.2) mg/dL AST (17-59) U/L ALT (21-72) U/L Total Protein (6.3-8.2) g/dL Albumin (3.5-5.0) g/dL 10/14/18 10/14/18 10/14/18 Range/Units 05:22 05:22 05:57 WBC 12.8 H (3.8-10.6) k/uL RBC 3.33 L (4.30-5.90) m/uL Hgb 9.2 L (13.0-17.5) gm/dL Hct 31.2 L (39.0-53.0) % MCHC 29.6 L (31.0-37.0) g/dL RDW 22.2 H (11.5-15.5) % Chloride 108 H (98-107) mmol/L Carbon Dioxide 21 L (22-30) mmol/L BUN 70 H (9-20) mg/dL Creatinine 2.97 H (0.66-1.25) mg/dL Glucose 161 H (74-99) mg/dL POC Glucose (mg/dL) 169 H (75-99) mg/dL Calcium 7.9 L (8.4-10.2) mg/dL AST 14 L (17-59) U/L ALT 11 L (21-72) U/L Total Protein 5.6 L (6.3-8.2) g/dL Albumin 2.4 L (3.5-5.0) g/dL Microbiology - Last 24 Hours (Table) 10/06/18 12:50 Blood Culture - Final Blood No Growth after 144 hours Assessment and Plan Assessment: Impression: 1 acute hypoxic respiratory failure secondary to acute sepsis, likely sources include urine/urinary tract infection, and pneumonia involving both lower lobes. 2 acute kidney injury secondary to acute tubular necrosis, patient is known to have history of chronic kidney disease stage III. Steadily improving. Continues to improve including improvement noted today. 3 acute dehydration, improved. 4 acute metabolic acidosis, anion gap on admission was 19. Resolved. 5 history of chronic pancreatitis 6 history of alcoholism 7 history of chronic normocytic anemia, hemoglobin is 7.7 today. 8 previous history of MSSA pneumonia requiring intubation and mechanical ventilation 9 history of focal cord dysfunction 10 previous history of GI bleeding 12 leukocytosis secondary to above. Improving today compared to yesterday. Recommendation: Patient was extubated on 10/10/2018, slow but steady improvement since extubation. his FiO2 requirement is less, his O2 flow is less, patient is able to clear secretions, chest x-ray is showing improvement, hence my plan is to keep the patient in the ICU for the next 24 hours, continue present treatment plan including antibiotics, bronchodilators, steroids, diuretics, close monitoring of his labs and renal profile, close monitoring of his chest x-ray, possibly transfer out of the ICU in the next 24 hours. Long-term prognosis remains definitely poor and guarded. We'll continue to follow. Time with Patient: Less than 30
[2018-10-14 12:12] LABS: Glucose,Whole Blood 183 mg/dL (75-99)
[2018-10-14] MEDS: AMPICILLIN-SULBACTAM 3 GM in SODIUM CHLORIDE 0.9% 100 ML IVPB SCH (12:24)
--- NOTE | 2018-10-14 14:12 | P.PN ---
Subjective This is Felicia Hurtado PA-C dictating a progress note on this patient The patient was interviewed and examined by me as well as by Dr. Uribe Case discussed with Dr. Uribe and he agrees with the plan of care IMPRESSION / ASSESSMENT: Wide complex tachycardia, occasional, asymptomatic, no further arrhythmias noted overnight Hypertension Acute kidney injury, creatinine improving PLAN: Reduce metoprolol to 50 mg twice a day, continue to monitor for bradycardia and arrhythmias Start atorvastatin 20 mg daily Continue aspirin Outpatient follow-up for further cardiac evaluation and management HPI/interval history Patient is a 68-year-old male who is admitted with for treatment of pneumonia and sepsis. We were consulted for NSVT. Yesterday we increased his metoprolol and he has had episodes of intermittent sinus bradycardia. Patient has been asymptomatic, denies lightheadedness, dizziness, palpitations, chest pain. States his breathing is improving. EXAMINATION Patient is afebrile, pulse 66, respirations 15, blood pressure 137/83, oxygen saturation 96% on 2 L nasal cannula Patient seen and examined resting comfortably in bed Breath sounds equal and clear bilaterally Heart is regular, normal S1, normal S2, no murmurs appreciated No lower extremity edema No elevated JVD REVIEW OF LABS, ECG Rhythm strips reveal sinus rhythm with intermittent sinus bradycardia, no arrhythmias noted WBC 12.8, hemoglobin 9.2, BUN 70, creatinine 2.97 Objective - Vital Signs Vital signs: Vital Signs Temp 98.1 F 10/14/18 12:00 Pulse 73 10/14/18 12:00 Resp 12 10/14/18 12:00 BP 143/75 10/14/18 12:00 Pulse Ox 98 10/14/18 12:00 Intake & Output 10/13/18 10/14/18 10/14/18 18:59 06:59 18:59 Intake Total 1065 1085 540 Output Total 1195 925 490 Balance -130 160 50 Weight 62.9 kg Intake: IV 240 350 120 .9 KVO 240 130 60 Ampicillin-Sulbactam 3 gm 100 In Sodium Chloride 0.9% 100 ml @ 200 mls/hr IVPB Q12H [facility] Rx#:[id number] Fluconazole in NaCl,Iso- 50 Osm 100 mg In Saline 1 50ml.bag @ 50 mls/hr IVPB Q24H [facility] Rx#:[id number] Sodium Chloride 0.45% 1, 70 60 000 ml @ 10 mls/hr IV . Q24H [facility] Rx#:[id number] Tube Feeding 765 675 360 Other 60 60 60 Output: Urine 895 925 490 Stool 300 Other: Voiding Method Indwelling Catheter Indwelling Catheter Indwelling Catheter ABP, PAP, CO, CI - Last Documented Arterial Blood Pressure 142/54 - Labs CBC & Chem 7: 10/14/18 05:22 10/14/18 05:22 Labs: Abnormal Lab Results - Last 24 Hours (Table) 10/13/18 10/13/18 10/14/18 Range/Units 18:09 23:46 05:22 WBC 12.8 H (3.8-10.6) k/uL RBC 3.33 L (4.30-5.90) m/uL Hgb 9.2 L (13.0-17.5) gm/dL Hct 31.2 L (39.0-53.0) % MCHC 29.6 L (31.0-37.0) g/dL RDW 22.2 H (11.5-15.5) % Chloride (98-107) mmol/L Carbon Dioxide (22-30) mmol/L BUN (9-20) mg/dL Creatinine (0.66-1.25) mg/dL Glucose (74-99) mg/dL POC Glucose (mg/dL) 140 H 170 H (75-99) mg/dL Calcium (8.4-10.2) mg/dL AST (17-59) U/L ALT (21-72) U/L Total Protein (6.3-8.2) g/dL Albumin (3.5-5.0) g/dL 10/14/18 10/14/18 10/14/18 Range/Units 05:22 05:57 12:01 WBC (3.8-10.6) k/uL RBC (4.30-5.90) m/uL Hgb (13.0-17.5) gm/dL Hct (39.0-53.0) % MCHC (31.0-37.0) g/dL RDW (11.5-15.5) % Chloride 108 H (98-107) mmol/L Carbon Dioxide 21 L (22-30) mmol/L BUN 70 H (9-20) mg/dL Creatinine 2.97 H (0.66-1.25) mg/dL Glucose 161 H (74-99) mg/dL POC Glucose (mg/dL) 169 H 183 H (75-99) mg/dL Calcium 7.9 L (8.4-10.2) mg/dL AST 14 L (17-59) U/L ALT 11 L (21-72) U/L Total Protein 5.6 L (6.3-8.2) g/dL Albumin 2.4 L (3.5-5.0) g/dL Microbiology - Last 24 Hours (Table) 10/06/18 12:50 Blood Culture - Final Blood No Growth after 144 hours
--- NOTE | 2018-10-14 15:46 | P.PN ---
Progress Note - Text Progress Note Date: 10/14/18 Presenting complaint: Short of breath Interval history: This patient was initially admitted to the hospital in August of this year. Was here for quite some time. At that was treated for pneumonia and metabolic nephropathy and was on the ventilator. Patient also found to esophagitis was in septic shock and had acute tubular necrosis. Also GI bleed with multiple blood transfusions. No obvious source of bleeding was found. Patient also had thoracentesis for pleural effusion. Patient also had a PEG tube placed. Patient was here in the hospital about a month ago for UTI and cystitis. This admission patient was found unresponsive at home. [place] to be possible aspiration pneumonia and/or UTI. Patient was extubated on 10/10/2018 Today- . Propped up in bed. Awake. Getting tube feeding at goal. Remains nothing by mouth. Some cough. Review of systems: Was done for constitutional, cardiovascular, GI, pulmonary. relevant finding as above Current medications are reviewed that include: DuoNeb, IV Unasyn, IV Diflucan IV Solu-Medrol 60 every 6 On examination: VITAL SIGNS: 98.1, 73, 12, 1 43/75, 98% on 2 L GENERAL APPEARANCE:. Propped up in bed, awake HEENT: Normal external appearance of nose and ear. Oral cavity dry EYES: Pupils equal. Conjunctiva pale NECK: JVD unable to assess. Mass not palpable. RESPIRATORY: Respiratory effort increased. Lungs-decreased breath sounds, occasional crackles CARDIOVASCULAR: First and second sounds normal. No edema. ABDOMEN: Soft. Liver and spleen not palpable. No tenderness. No mass palpable. PEG tube in place PSYCHIATRY: Answering questions NEUROLOGICAL: Following commands, moving all 4 limbs Investigations, in clinical context: White count 12.8 hemoglobin 9.2 potassium 3.6 be 170 creatinine 2.97 Sputum showing Aracelis albicans and's MSSA Assessment: -pneumonia suspected aspiration pneumonia, causing sepsis from staph aureus on admission -Acute hypoxic respiratory failure, secondary to pneumonia, status post ventilator assistance, down to 2 L nasal cannula -Chronic esophagitis -PEG tube, chronic -Hypothyroid -Chronic kidney disease stage III from nephrosclerosis at baseline -Anemia of chronic kidney disease -Anemia from recent GI bleed exact source unknown -Acute renal failure from acute tubal necrosis from underlying sepsis, some improvement -Severe metabolic acidosis status post bicarbonate drip -Dysphagia, failed swallow eval, currently nothing by mouth Plan: We'll cut back on Solu-Medrol to 40 every 8. Other medications to continue. Including antibiotics. Repeat swallow eval tomorrow morning. Patient to be moved out of the ICU.
[2018-10-14 18:22] LABS: Glucose,Whole Blood 179 mg/dL (75-99)
[2018-10-14] MEDS: methylPREDNISolone SOD SUCCI 40 MG/ML 1 ML VIAL IV SCH (18:36)
[2018-10-14] MEDS: ATORVASTATIN 20 MG TAB PO SCH (21:44)
[2018-10-14] MEDS: FLUCONAZOLE IN NACL,ISO-OSM 100 MG in SALINE 1 50ML.BAG IVPB SCH (21:45)
[2018-10-15] MEDS: methylPREDNISolone SOD SUCCI 40 MG/ML 1 ML VIAL IV SCH ×2 (00:41→08:05)
[2018-10-15] MEDS: INSULIN ASPART (NovoLOG) 100 UNIT/ML VIAL SQ SCH ×4 (00:41→17:34)
[2018-10-15] MEDS: AMPICILLIN-SULBACTAM 3 GM in SODIUM CHLORIDE 0.9% 100 ML IVPB SCH ×2 (00:41→14:31)
[2018-10-15 00:46] LABS: Glucose,Whole Blood 172 mg/dL (75-99)
[2018-10-15 05:11] LABS: Anisocytosis Moderate; HCT 28.2 % (39.0-53.0); HGB 8.7 gm/dL (13.0-17.5); Hypochromasia Marked; MCH 28.5 pg (25.0-35.0); MCHC 30.9 g/dL (31.0-37.0); MCV 92.4 fL (80.0-100.0); Macrocytosis Slight; Mean Platelet Volume 8.8; Platelet Count 194 k/uL (150-450); Poikilocytosis Slight; RBC 3.05 m/uL (4.30-5.90); WBC 11.6 k/uL (3.8-10.6)
[2018-10-15 05:24] LABS: Albumin 2.4 g/dL (3.5-5.0); Calcium 7.6 mg/dL (8.4-10.2); Total Bilirubin 0.4 mg/dL (0.2-1.3); Total Protein 5.4 g/dL (6.3-8.2)
[2018-10-15 06:38] LABS: Glucose,Whole Blood 172 mg/dL (75-99)
[2018-10-15] MEDS: METOPROLOL TARTRATE 50 MG TAB PO SCH ×3 (06:42→22:02)
[2018-10-15] MEDS: CALCIUM CARBONATE LIQUID 500 MG/5 ML CUP PO SCH ×2 (06:54→17:34)
[2018-10-15] MEDS: LEVOTHYROXINE 25 MCG TAB PO SCH (06:54)
[2018-10-15] MEDS: IPRATROPIUM-ALBUTEROL 3 ML NEB INHALATION SCH ×4 (06:56→19:18)
[2018-10-15] MEDS: ASPIRIN 81 MG PO SCH (08:05)
[2018-10-15] MEDS: FERROUS SULFATE 325 MG TAB PO SCH (08:05)
[2018-10-15] MEDS: PANTOPRAZOLE SODIUM 40 MG GRANULE PKT PO SCH (08:05)
[2018-10-15] MEDS: ACETAMINOPHEN TAB 325 MG TAB PO PRN ×3 (08:08→22:04)
--- NOTE | 2018-10-15 09:35 | P.PN ---
Subjective This is Felicia Hurtado PA-C dictating a progress note on this patient The patient was interviewed and examined by me as well as by Dr. Uribe Case discussed with Dr. Uribe and he agrees with the plan of care IMPRESSION / ASSESSMENT: Wide-complex tachycardia, occasional, asymptomatic, no arrhythmias noted overnight Hypertension, blood pressure elevated in the 140s to 150s systolic PLAN: Start him on amlodipine 5 mg daily Continue metoprolol 50 mg twice a day Continue atorvastatin and aspirin Further cardiac workup can be done on an outpatient basis HPI/interval history Patient is a 68-year-old male who was admitted for treatment of pneumonia and sepsis. Yesterday we decreased his metoprolol due to some episodes of intermittent sinus bradycardia. Normal episodes noted overnight. Blood pressure is been elevated in the 140s to 150 systolic He continues to improve, breathing is improving. Denies chest pain or palpitations, no lightheadedness or dizziness. EXAMINATION Afebrile, pulse 70, blood pressure 153/86, respirations 12, oxygen saturation 98% on 2 L nasal cannula He should seen and examined resting comfortably in bed Heart is regular, normal S1 normal S2, no murmurs appreciated Lungs clear to auscultation bilaterally No lower extremity edema noted REVIEW OF LABS, ECG Rhythm strips reveal sinus rhythm with few PVCs and PACs, no arrhythmias noted overnight, no more episodes of bradycardia noted WBCs 11.6, hemoglobin 8.7, potassium 3.0, BUN 79, creatinine 2.66 Objective - Vital Signs Vital signs: Vital Signs Temp 98.5 F 10/15/18 00:00 Pulse 70 10/15/18 07:12 Resp 12 10/15/18 04:00 BP 153/86 10/15/18 04:00 Pulse Ox 98 10/15/18 04:00 Intake & Output 10/14/18 10/15/18 10/15/18 18:59 06:59 18:59 Intake Total 705 1180 65 Output Total 990 950 300 Balance -285 230 -235 Weight 64 kg Intake: IV 240 370 20 .9 KVO 180 110 10 Ampicillin-Sulbactam 3 gm 100 In Sodium Chloride 0.9% 100 ml @ 200 mls/hr IVPB Q12H [facility] Rx#:[id number] Fluconazole in NaCl,Iso- 50 Osm 100 mg In Saline 1 50ml.bag @ 50 mls/hr IVPB Q24H [facility] Rx#:[id number] Sodium Chloride 0.45% 1, 60 110 10 000 ml @ 10 mls/hr IV . Q24H [facility] Rx#:[id number] Tube Feeding 405 720 45 Other 60 90 Output: Urine 990 950 100 Stool 200 Other: Voiding Method Indwelling Catheter Indwelling Catheter ABP, PAP, CO, CI - Last Documented Arterial Blood Pressure 142/54 - Labs CBC & Chem 7: 10/15/18 04:55 10/15/18 04:55 Labs: Abnormal Lab Results - Last 24 Hours (Table) 10/14/18 10/14/18 10/15/18 Range/Units 12:01 18:09 00:33 WBC (3.8-10.6) k/uL RBC (4.30-5.90) m/uL Hgb (13.0-17.5) gm/dL Hct (39.0-53.0) % MCHC (31.0-37.0) g/dL RDW (11.5-15.5) % Potassium (3.5-5.1) mmol/L Chloride (98-107) mmol/L BUN (9-20) mg/dL Creatinine (0.66-1.25) mg/dL Glucose (74-99) mg/dL POC Glucose (mg/dL) 183 H 179 H 172 H (75-99) mg/dL Calcium (8.4-10.2) mg/dL AST (17-59) U/L ALT (21-72) U/L Total Protein (6.3-8.2) g/dL Albumin (3.5-5.0) g/dL 10/15/18 10/15/18 10/15/18 Range/Units 04:55 04:55 06:26 WBC 11.6 H (3.8-10.6) k/uL RBC 3.05 L (4.30-5.90) m/uL Hgb 8.7 L (13.0-17.5) gm/dL Hct 28.2 L (39.0-53.0) % MCHC 30.9 L (31.0-37.0) g/dL RDW 22.0 H (11.5-15.5) % Potassium 3.0 L (3.5-5.1) mmol/L Chloride 108 H (98-107) mmol/L BUN 79 H (9-20) mg/dL Creatinine 2.66 H (0.66-1.25) mg/dL Glucose 156 H (74-99) mg/dL POC Glucose (mg/dL) 172 H (75-99) mg/dL Calcium 7.6 L (8.4-10.2) mg/dL AST 16 L (17-59) U/L ALT 13 L (21-72) U/L Total Protein 5.4 L (6.3-8.2) g/dL Albumin 2.4 L (3.5-5.0) g/dL
[2018-10-15] MEDS: POTASSIUM BICARBONATE/CIT AC 20 MEQ TABLET.EFF PO SCH ×4 (10:08→22:03)
[2018-10-15] MEDS: SODIUM CHLORIDE 0.45% 1,000 ML IV SCH (10:09)
[2018-10-15] MEDS: amLODIPine 5 MG TAB PO SCH (10:16)
[2018-10-15 10:23] VITALS: BMI 21.4
--- NOTE | 2018-10-15 11:47 | PN ---
PROGRESS NOTE DATE OF SERVICE: October 15, 2018 This is a 68-year-old male who was admitted back on October 06. He came in initially with urosepsis and pneumonia. He developed howard respiratory failure with hypoxemia and required intubation on October 06 and he was extubated successfully on October 10. In addition, he has a history of acute kidney injury, acute dehydration, metabolic acidosis, chronic pancreatitis, alcohol abuse, normocytic, normochromic anemia, methicillin sensitive Staph aureus pneumonia, vocal cord dysfunction, GI bleeding and leukocytosis. The patient is currently on 2 L by nasal cannula. He is getting an IV of saline at 10 mL an hour and an IV of 0.45 at 10 mL an hour. He also has a PEG tube in place and is receiving Nepro at 45 mL an hour with a goal of 45 mL an hour. The patient is currently on Diflucan and Unasyn. He did have oxacillin sensitive Staph aureus infection. He is an overflow patient. He is resting comfortably in bed. Lying flat. Just on 2 L nasal cannula. He has no complaints. Denies any fever, chills, cough, wheezing, phlegm production, chest pain, chest discomfort, difficulty breathing, or any GI or complaints. PHYSICAL EXAMINATION: VITAL SIGNS: Currently, his temperature is 98, heart rate 60, respiratory rate 13, blood pressure 150/79, mean 102 and 2 L saturations 99%. He appears in no acute distress. HEENT: Examination is grossly unremarkable. Mucous membranes are moist. Nasal O2 in place. NECK: Supple. Full range of motion. No adenopathy. Neck veins are flat. CARDIOVASCULAR: Examination reveals regular rhythm and rate. S1, S2 normal. No S3, S4, or murmur. LUNGS: Reveal mostly clear breath sounds. No wheezes or rhonchi. Breath sounds equal bilaterally. No crackles. ABDOMEN: Soft. Bowel sounds are heard. PEG tube is noted. EXTREMITIES: Are intact. No cyanosis, clubbing, or edema. SKIN: Without rash. NEUROLOGIC: Examination is brief but nonfocal. LABS: Labs are reviewed. White count 11.6, hemoglobin 8.7, hematocrit 28.2, platelet count a 194,000. Sodium 141, potassium 3, chloride 108, CO2 is 22 and anion gap 11, BUN and creatinine were 79 and 2.66. The rest of the labs are reviewed. Microbiology shows evidence of Aracelis glabrata in the urine. Aracelis albicans in the sputum and Staph aureus in the sputum, oxacillin sensitive. MEDICATIONS: Medications are reviewed. Medications include Tylenol, amlodipine, Unasyn, aspirin, Lipitor, calcium carbonate, Aranesp, vitamin D2, iron, insulin, updrafts, levothyroxine, Solu-Medrol, metoprolol, Narcan, Protonix and 0.45 IV. ASSESSMENT: 1. Acute hypoxemic respiratory failure secondary to acute sepsis, likely secondary to either urinary tract infection and/or pneumonia, improved, with intubation on October 06 and extubation successfully on October 10. 2. Acute kidney injury secondary to acute tubular necrosis in a patient with a history of stage 3 chronic kidney disease. 3. Acute dehydration, improved. 4. Anion gap metabolic acidosis, resolved. 5. History of chronic pancreatitis. 6. History of chronic alcohol abuse. 7. History of chronic normocytic anemia. 8. Previous history of methicillin-sensitive Staphylococcus aureus pneumonia. 9. History of vocal cord dysfunction. 10.Previous history of gastrointestinal bleed. PLAN: The patient is doing well. Medications are reviewed. Adjustments will be made. We will continue to follow. Will DC the steroids. No additional recommendations are made. Prognosis is guarded. The patient is an overflow patient. Diflucan is also discontinued. No additional recommendations are made. MMODL / IJN: [id number] /
--- NOTE | 2018-10-15 12:08 | PN ---
PROGRESS NOTE The patient is seen for followup for acute kidney injury and chronic kidney disease. Renal function has improved significantly. The patient's creatinine is down to 2.6 from 7.27 on initial admission. The patient was being diuresed. Currently he is off of Lasix. No significant complaints today. PHYSICAL EXAMINATION: On examination, blood pressure was 156/82, heart rate 75 per minute. Patient is afebrile. EXAMINATION OF THE HEART: S1, S2. EXAMINATION OF THE LUNGS: Bilateral breath sounds are heard. Abdomen is soft, nontender. Examination of the lower extremities shows no significant edema. LABS: Labs show sodium 141, potassium 3.0, chloride 108, BUN 79, serum creatinine 2.6, hemoglobin 8.7 g/dL. ASSESSMENT: 1. Acute kidney injury secondary to sepsis, currently improved. 2. Chronic kidney disease NKF stage 4. 3. Anion gap metabolic acidosis, currently improving. 4. Anemia of chronic disease. 5. Pneumonia, maintained on antibiotics. 6. Hypokalemia, will replace. PLAN: Continue off IV fluids and diuretics. Continue with the antibiotics. MMODL / IJN: [id number] /
[2018-10-15 12:23] LABS: Glucose,Whole Blood 192 mg/dL (75-99)
--- NOTE | 2018-10-15 12:32 | FL ---
COMPARISON: NONE DATE OF EXAM: 10/15/2018 HISTORY: Dysphasia A number of thin and thick substances were ingested under the care of the department of speech pathol ogy. There is ingestion of pudding and honey. 41 seconds of fluoroscopy and 0 images submitted. There is evidence of significant residuals post ingestion of pudding with vallecular pooling. There is evidence of penetration and aspiration with honey. IMPRESSION: 1. See above.
[2018-10-15] MEDS: DARBEPOETIN ALFA 60 MCG/0.3 ML SYRINGE SQ SCH (12:37)
[2018-10-15] MEDS: ERGOCALCIFEROL 50,000 UNIT CAP PO SCH (12:38)
--- NOTE | 2018-10-15 17:35 | P.PN ---
Progress Note - Text Progress Note Date: 10/15/18 Presenting complaint: Short of breath Interval history: This patient was initially admitted to the hospital in August of this year. Was here for quite some time. At that was treated for pneumonia and metabolic nephropathy and was on the ventilator. Patient also found to esophagitis was in septic shock and had acute tubular necrosis. Also GI bleed with multiple blood transfusions. No obvious source of bleeding was found. Patient also had thoracentesis for pleural effusion. Patient also had a PEG tube placed. Patient was here in the hospital about a month ago for UTI and cystitis. This admission patient was found unresponsive at home. [place] to be possible aspiration pneumonia and/or UTI. Patient was extubated on 10/10/2018 Today- . Sitting up. Tired. Awake. Did fail a swallow evaluation this morning. Getting 2 feeding.. Review of systems: Was done for constitutional, cardiovascular, GI, pulmonary. relevant finding as above Current medications are reviewed that include: DuoNeb, IV Unasyn, tube feeding On examination: VITAL SIGNS: 98, 75, 13, 156-82, 99% on 2 L GENERAL APPEARANCE:. Propped up in bed, awake HEENT: Normal external appearance of nose and ear. Oral cavity dry EYES: Pupils equal. Conjunctiva pale NECK: JVD unable to assess. Mass not palpable. RESPIRATORY: Respiratory effort increased. Lungs-decreased breath sounds, occasional crackles CARDIOVASCULAR: First and second sounds normal. No edema. ABDOMEN: Soft. Liver and spleen not palpable. No tenderness. No mass palpable. PEG tube in place PSYCHIATRY: Awake answering questions NEUROLOGICAL: Following commands, moving all 4 limbs Investigations, in clinical context: White count 11.6, hemoglobin 8.7, potassium 3, BUN 79, creatinine 2.66, albumin 2.4 Sputum showing Aracelis albicans and's MSSA Assessment: -pneumonia suspected aspiration pneumonia, causing sepsis from staph aureus on admission -Acute hypoxic respiratory failure, secondary to pneumonia, status post ventilator assistance, down to 2 L nasal cannula -Chronic esophagitis -PEG tube, chronic -Hypothyroid -Chronic kidney disease stage III from nephrosclerosis at baseline -Anemia of chronic kidney disease -Anemia from recent GI bleed exact source unknown -Acute renal failure from acute tubal necrosis from underlying sepsis, some improvement -Severe metabolic acidosis status post bicarbonate drip -Dysphagia, showed gross silent aspiration. [facility] Plan: Looking at possible patient being discharged to inpatient rehab. Shortly. Steroids were DC'd by pulmonary. Diflucan will also DC'd by pulmonary. Looking at patient going to the rehab. Care was discussed with the patient. Continue with tube feeding
[2018-10-15 17:53] LABS: Glucose,Whole Blood 180 mg/dL (75-99)
[2018-10-15] MEDS: ATORVASTATIN 20 MG TAB PO SCH (22:02)
[2018-10-15 23:50] LABS: Glucose,Whole Blood 165 mg/dL (75-99)
[2018-10-16] MEDS: AMPICILLIN-SULBACTAM 3 GM in SODIUM CHLORIDE 0.9% 100 ML IVPB SCH ×2 (00:32→13:02)
[2018-10-16] MEDS: SODIUM CHLORIDE 0.45% 1,000 ML IV SCH (00:33)
[2018-10-16] MEDS: INSULIN ASPART (NovoLOG) 100 UNIT/ML VIAL SQ SCH ×4 (00:33→18:34)
--- NOTE | 2018-10-16 05:05 | PN ---
PROGRESS NOTE DATE OF SERVICE: 10/15/2018 REASON FOR FOLLOWUP: 1. MSSA aspiration pneumonia. 2. Diarrhea. INTERVAL HISTORY: The patient is currently afebrile. The patient has been breathing comfortably. Denies having any chest pain. Occasional cough. No abdominal pain. The patient has noted significant diarrhea for which a fecal management system has been placed. PHYSICAL EXAMINATION: On examination, blood pressure 136/80 with a pulse of 79, temperature 98.5. General description is an elderly male lying in bed in no distress. RESPIRATORY SYSTEM: Unlabored breathing with decreased breath sounds at the bases. HEART: S1, S2. Regular rate and rhythm. ABDOMEN: Soft, no tenderness. LABS: Hemoglobin 8.7, white count 11.6, BUN of 79, creatinine 2.66. DIAGNOSTIC IMPRESSION AND PLAN: 1. Patient admitted to the hospital with sepsis a component of aspiration pneumonia. Sputum has been Staphylococcus aureus and Aracelis. Patient is currently on Unasyn and Diflucan. 2. Diarrhea. We will check a stool for Clostridium difficile and treat if positive. Will add Questran for symptomatic relief. 3. Positive urine cultures in the . Patient's urine cultures have been negative after change of Zhu. No need for further treatment for the same. MMODL / IJN: [id number] /
[2018-10-16 05:31] LABS: Glucose,Whole Blood 157 mg/dL (75-99)
[2018-10-16] MEDS: LEVOTHYROXINE 25 MCG TAB PO SCH (05:42)
[2018-10-16] MEDS: ACETAMINOPHEN TAB 325 MG TAB PO PRN (05:45)
[2018-10-16] MEDS: IPRATROPIUM-ALBUTEROL 3 ML NEB INHALATION SCH ×4 (08:02→19:36)
[2018-10-16] MEDS: ASPIRIN 81 MG PO SCH (09:35)
[2018-10-16] MEDS: FERROUS SULFATE 325 MG TAB PO SCH (09:35)
[2018-10-16] MEDS: CALCIUM CARBONATE LIQUID 500 MG/5 ML CUP PO SCH ×2 (09:35→18:34)
[2018-10-16] MEDS: METOPROLOL TARTRATE 50 MG TAB PO SCH ×2 (09:35→22:47)
[2018-10-16] MEDS: amLODIPine 5 MG TAB PO SCH (09:35)
[2018-10-16] MEDS: PANTOPRAZOLE SODIUM 40 MG GRANULE PKT PO SCH (09:36)
[2018-10-16] MEDS ORDERED: CHOLESTYRAMINE (WITH SUGAR) 4 GM PACKET PO SCH (10:00)
--- NOTE | 2018-10-16 11:07 | P.PN ---
Subjective Progress Note Date: 10/16/18 Principal diagnosis: Acute sepsis secondary to urinary tract infection and left lower lobe pneumonia A 68-year-old male patient with extensive medical problems and comorbidities, who was recently discharged home and he was being followed up by a friend and few days later he was found on the ground confused altered weak and he was brought into the hospital where he was found to be hypotensive, hypothermic with temperature of 93.5 and having some leukocytosis with hypernatremia and the sodium ranging 147 and 148 and a creatinine of 5.9 and he was quite acidotic with serum bicarb level was as low as 6 and anion gap of 22. Lactic acid was nonelevated. The patient's blood sugar was at 63. 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 Chest x-ray showed some limited infiltration of the left lung base. CAT scan of the abdomen was done and it showed no significant acute abnormalities in the abdomen other than chronic pancreatitis-type of picture with extensive pancreatic calcification. The patient was given IV fluids, bicarb infusion and the patient was covered with a combination of Zosyn and vancomycin and Diflucan. Currently the patient is in the intensive care unit. Laying comfortably in bed. Urine was quite cloudy and dirty at time of admission and this has improved. The patient is not requiring any pressors at this point in time. This bonding and answering questions appropriately. Note that the patient has a PEG tube in place. This was placed on previous admission due to difficulties in swallowing.In terms of his previous history, this 68-year-old male patient was in our intensive care unit back in July 2018. He was in for septic shock related complications related to staph pneumonia and an same time he had UTI, metabolic acidosis and acute kidney injury. He has previous history of alcoholism and previous history of pancreatitis and previous history of ERCP with insertion of a biliary stent. The patient had staph pneumonia and MSSA was cultured in his sputum. He was intubated back in 06/30/2018 and he was successfully extubated on 07/03/2018. He required BiPAP for some point. He had CHF and bilateral pleural effusion. He was treated with diuretics. He was noted that he was unable to swallow and he was having difficulties with his voice. ENT evaluated the patient the patient was seen by Dr. Street and the patient showed bilateral vocal cord hemorrhage/laryngitis. Vocal cord movement was not good and the patient was anticipated to have vocal cord dysfunction for an extended period of time. In regards to his dysphagia, it was noted that the patient had limited pharyngeal movement and there was concern towards bulbar palsy. He was worked up with an MRI. He is swallow was poor. He was aspirating and he was given a PEG tube for enteral feeding and nutritional support. His acute kidney injury improved and the creatinine on dropped significantly. He was discharged to be readmitted back in October 2018 for another urine checked infection. He was treated and he was discharged home after being treated for pneumonia/UTI. He was discharged home on oral Augmentin. Patient seen today 10/16/2018 in follow-up on the regular medical floor. He is currently awake and alert in no acute distress. Resting comfortably in bed. No worsening shortness of breath, cough or congestion. He is maintaining good O2 saturations in the high 90s on 2 L/m per nasal cannula. He's been afebrile. He did undergo a barium swallow yesterday that was positive for significant residuals postingestion of putting with vallecular pooling as well as evidence of penetration and aspiration with any. He remains nothing by mouth. Tube feedings are continued. Sputum was positive for methicillin sensitive Staphylococcus aureus. Currently on Unasyn. Objective - Vital Signs Vital signs: Vital Signs Temp 97.6 F 10/16/18 06:50 Pulse 66 10/16/18 08:05 Resp 16 10/16/18 08:05 BP 163/79 10/16/18 06:50 Pulse Ox 99 10/16/18 06:50 Intake & Output 10/15/18 10/16/18 10/16/18 18:59 06:59 18:59 Intake Total 285 135 45 Output Total 1050 700 325 Balance -765 -565 -280 Weight 64 kg 67 kg Intake: IV 60 .9 KVO 30 Sodium Chloride 0.45% 1, 30 000 ml @ 10 mls/hr IV . Q24H [facility] Rx#:[id number] Tube Feeding 225 135 45 Output: Urine 850 700 125 Stool 200 200 Other: Voiding Method Indwelling Catheter Urinal Urinal # Voids 1 ABP, PAP, CO, CI - Last Documented Arterial Blood Pressure 142/54 - Exam GENERAL EXAM: Revealed 68-year-old white male, comfortable in no acute distress. On 2 L nasal cannula. HEAD: Normocephalic/atraumatic. EYES: PERRLA, EOMI, no icterus. NOSE: Clear with pink turbinates. THROAT: No erythema or exudates. Moist mucous membranes. NECK: No masses, no JVD, no thyroid enlargement, no adenopathy. CHEST: No chest wall deformity. Symmetrical expansion. LUNGS: Few scattered rhonchi. CVS: Regular rate and rhythm, normal S1 and S2, no gallops, no murmurs, no rubs ABDOMEN: Soft nontender no megaly no rebound no guarding. PEG tube is noted to be intact. EXTREMITIES: Trace of edema no clubbing no cyanosis. MUSCULOSKELETAL generally weak, otherwise unremarkable. CENTRAL NERVOUS SYSTEM: Alert oriented 3, no gross focal neurologic deficits. Skin: No rashes. Psychiatric: Depressed mood blunt affect normal mental status. Lymphatics: No lymphadenopathy. - Labs CBC & Chem 7: 10/15/18 04:55 10/15/18 22:49 Labs: Abnormal Lab Results - Last 24 Hours (Table) 10/15/18 10/15/18 10/15/18 Range/Units 12:12 17:13 17:31 Potassium 3.2 L (3.5-5.1) mmol/L POC Glucose (mg/dL) 192 H 180 H (75-99) mg/dL 10/15/18 10/15/18 10/16/18 Range/Units 22:49 23:48 05:29 Potassium 3.1 L (3.5-5.1) mmol/L POC Glucose (mg/dL) 165 H 157 H (75-99) mg/dL Assessment and Plan Assessment: Impression: 1 acute hypoxic respiratory failure secondary to acute sepsis, likely sources include urine/urinary tract infection, and pneumonia involving both lower lobes. Improved and on 2 L nasal cannula. 2 acute kidney injury secondary to acute tubular necrosis, patient is known to have history of chronic kidney disease stage III. 3 acute dehydration, improved. 4 acute metabolic acidosis, anion gap on admission was 19. Resolved. 5 history of chronic pancreatitis 6 history of alcoholism 7 history of chronic normocytic anemia. 8 previous history of MSSA pneumonia requiring intubation and mechanical ventilation 9 history of focal cord dysfunction 10 previous history of GI bleeding 12 leukocytosis secondary to above. Plan: The patient was seen and evaluated by Dr. Zapien. He is currently stable from the pulmonary standpoint. We'll continue with his current medications. Remains nothing by mouth for now. 2 feedings continue. We'll continue to follow make further recommendations based on his clinical status. I, the cosigning physician, performed a history & physical examination of the patient. Lungs sounds with few scattered rhonchi. Maintaining good O2 saturations in the 90s on 2 L/m per nasal cannula. I discussed the assessment and plan of care with my nurse practitioner, Kylee Phan. I attest to the above note as dictated by her.
[2018-10-16 11:52] LABS: Glucose,Whole Blood 152 mg/dL (75-99)
[2018-10-16] MEDS ORDERED: amLODIPine 5 MG TAB PO STA (12:13)
--- NOTE | 2018-10-16 12:25 | P.DS ---
Providers Date of admission: 10/06/18 23:07 Expected date of discharge: 10/16/18 Attending physician: John Elliott Consults: 10/06/18 22:31 Consult Physician Urgent Consulting Provider: Charlotte Medel Consult Reason/Comments: sepsis Do you want consulting provider notified?: Already Contacted Consult Physician Urgent Consulting Provider: Ximena Callahan Consult Reason/Comments: Renal failure Do you want consulting provider notified?: Already Contacted 10/07/18 13:44 Consult Physician Routine Consulting Provider: Rickie Sloan Consult Reason/Comments: Sepsis/UTI Do you want consulting provider notified?: Yes 10/10/18 12:10 Consult Physician Routine Consulting Provider: Andre Uribe Consult Reason/Comments: Frequent ectopy Do you want consulting provider notified?: Yes Primary care physician: Justice Silva Hospital Course: Hospital course: This patient was initially admitted to the hospital in August of this year. Was here for quite some time. At that was treated for pneumonia and metabolic nephropathy and was on the ventilator. Patient also found to esophagitis was in septic shock and had acute tubular necrosis. Also GI bleed with multiple blood transfusions. No obvious source of bleeding was found. Patient also had thoracentesis for pleural effusion. Patient also had a PEG tube placed. Patient was here in the hospital about a month ago for UTI and cystitis. This admission patient was found unresponsive at home. [place] to be possible aspiration pneumonia and/or UTI. Patient was extubated on 10/10/2018 Patient failed his swallowing exam. Continue with tube feeding. Discussed with Dr. Keating from nephrology. Okay to [place]. Discussed with Dr. dozier from [place]. [facility] on Augmentin. Discussed with the patient. Questions answered. Informed social psychologist Discussion and discharge planning more than 35 minutes Consultations: Dr. Renteria and associates from pulmonary Dr. Sloan from infectious disease Dr. Callahan and associates from nephrology Dr. echo fedlman from cardiology On examination: VITAL SIGNS: 97.6, 72, 16, 163/76, 99% on 2 L GENERAL APPEARANCE:. Sitting up in a chair, awake HEENT: Normal external appearance of nose and ear. Oral cavity dry EYES: Pupils equal. Conjunctiva pale NECK: JVD unable to assess. Mass not palpable. RESPIRATORY: Respiratory effort increased. Lungs-decreased breath sounds, oc casional crackles CARDIOVASCULAR: First and second sounds normal. No edema. ABDOMEN: Soft. Liver and spleen not palpable. No tenderness. No mass palpable. PEG tube in place PSYCHIATRY: Awake answering questions NEUROLOGICAL: Following commands, moving all 4 limbs Investigations, in clinical context: White count 11.6, hemoglobin 8.7, potassium 3, BUN 79, creatinine 2.66, albumin 2.4 Sputum showing Aracelis albicans and's MSSA 2-D echo shows EF of 55-60% Assessment: -pneumonia suspected aspiration pneumonia, causing sepsis from staph aureus on admission -Acute hypoxic respiratory failure, secondary to pneumonia, status post ventilator assistance, down to 2 L nasal cannula -Chronic esophagitis -PEG tube, chronic -Hypothyroid -Chronic kidney disease stage III from nephrosclerosis at baseline -Anemia of chronic kidney disease -Anemia from recent GI bleed exact source unknown -Acute renal failure from acute tubal necrosis from underlying sepsis, some improvement -Severe metabolic acidosis status post bicarbonate drip -Dysphagia, showed gross silent aspiration. By MBS. Patient to repeat swallowing exam down the road Disposition: ECF/[facility] Patient Condition at Discharge: Stable Plan - Discharge Summary Discharge Rx Participant: Yes New Discharge Prescriptions: New Amoxicillin/Potassium Clav [Augmentin 875-125 Tablet] 1 tab PO Q12HR #14 tab Atorvastatin [Lipitor] 20 mg PO HS #0 tab Psyllium Husk 100% [Metamucil Packet] 6 gm PO BID #1 packet Ampicillin-Sulbactam [Unasyn] 3 gm IVPB Q12H vial Continue amLODIPine BESYLATE [Norvasc] 10 mg PO DAILY Ferrous Sulfate [Feosol] 325 mg PO DAILY #30 tab Ipratropium-Albuterol Nebulize [Duoneb 0.5 mg-3 mg/3 ml Soln] 3 ml INHALATION RT-QID ampul.neb Metoprolol Tartrate [Lopressor] 50 mg PO BID tab Omeprazole [PriLOSEC] 20 mg PO AC-BID #1 cap Levothyroxine Sodium [Synthroid] 25 mcg PO DAILY #1 tab Magnesium Oxide [Mag-Ox] 400 mg PO DAILY Ergocalciferol (Vitamin D2) [Ergocalciferol] 66,000 unit PO Q7D Acetaminophen Tab [Tylenol] 650 mg PO Q6H PRN PRN Reason: Fever And/ Or Pain Aspirin 81 mg PO DAILY chew Sodium Bicarbonate Tab 650 mg PO BID #0 Epoetin Von [Procrit] 4,000 unit IJ MOWEFR Discharge Medication List amLODIPine BESYLATE [Norvasc] 10 mg PO DAILY 06/29/18 [History] Ferrous Sulfate [Feosol] 325 mg PO DAILY #30 tab 07/04/18 [Rx] Ipratropium-Albuterol Nebulize [Duoneb 0.5 mg-3 mg/3 ml Soln] 3 ml INHALATION RT-QID ampul.neb 07/24/18 [Rx] Levothyroxine Sodium [Synthroid] 25 mcg PO DAILY #1 tab 07/24/18 [Rx] Metoprolol Tartrate [Lopressor] 50 mg PO BID tab 07/24/18 [Rx] Omeprazole [PriLOSEC] 20 mg PO AC-BID #1 cap 07/24/18 [Rx] Acetaminophen Tab [Tylenol] 650 mg PO Q6H PRN 08/31/18 [History] Ergocalciferol (Vitamin D2) [Ergocalciferol] 66,000 unit PO Q7D 08/31/18 [History] Magnesium Oxide [Mag-Ox] 400 mg PO DAILY 08/31/18 [History] Aspirin 81 mg PO DAILY chew 09/06/18 [Rx] Sodium Bicarbonate Tab 650 mg PO BID #0 09/06/18 [Rx] Epoetin Von [Procrit] 4,000 unit IJ MOWEFR 10/06/18 [History] Amoxicillin/Potassium Clav [Augmentin 875-125 Tablet] 1 tab PO Q12HR #14 tab 10/16/18 [Rx] Ampicillin-Sulbactam [Unasyn] 3 gm IVPB Q12H vial 10/16/18 [Rx] Atorvastatin [Lipitor] 20 mg PO HS #0 tab 10/16/18 [Rx] Psyllium Husk 100% [Metamucil Packet] 6 gm PO BID #1 packet 10/16/18 [Rx] Follow up Appointment(s)/Referral(s): Justice Silva MD [Primary Care Provider] - 1-2 days
[2018-10-16] MEDS: PSYLLIUM HUSK 100% 6 GM PACKET PO SCH ×2 (13:02→22:47)
--- NOTE | 2018-10-16 13:52 | P.PN ---
Subjective Patient is seen in follow-up for acute kidney injury on chronic kidney disease. He was transferred out of the intensive care unit yesterday. Renal function is improved. Creatinine was 2.66 as of yesterday. He is maintained on tube feeding which is at goal. He feels tired. No chest pain or shortness of breath. Vital signs are stable. General: The patient appeared well nourished and normally developed. HEENT: Head exam is unremarkable. Neck is without jugular venous distension. LUNGS: Lungs are clear to auscultation and percussion. Breath sounds decreased. HEART: Rate and Rhythm are regular. First and second heart sounds normal. No mu rmurs, rubs or gallops. ABDOMEN: Abdominal exam reveals normal bowel sounds. Non-tender and non-dis tended. No evidence of peritonitis. EXTREMITITES: No clubbing, cyanosis, or edema. Objective - Vital Signs Vital signs: Vital Signs Temp 97.6 F 10/16/18 06:50 Pulse 68 10/16/18 11:15 Resp 16 10/16/18 08:05 BP 163/79 10/16/18 06:50 Pulse Ox 99 10/16/18 06:50 Intake & Output 10/15/18 10/16/18 10/16/18 18:59 06:59 18:59 Intake Total 285 135 90 Output Total 1050 700 600 Balance -765 -565 -510 Weight 64 kg 67 kg Intake: IV 60 .9 KVO 30 Sodium Chloride 0.45% 1, 30 000 ml @ 10 mls/hr IV . Q24H [facility] Rx#:[id number] Tube Feeding 225 135 90 Output: Urine 850 700 400 Stool 200 200 Other: Voiding Method Indwelling Catheter Urinal Urinal # Voids 1 ABP, PAP, CO, CI - Last Documented Arterial Blood Pressure 142/54 - Labs CBC & Chem 7: 10/15/18 04:55 10/15/18 22:49 Labs: Abnormal Lab Results - Last 24 Hours (Table) 10/15/18 10/15/18 10/15/18 Range/Units 17:13 17:31 22:49 Potassium 3.2 L 3.1 L (3.5-5.1) mmol/L POC Glucose (mg/dL) 180 H (75-99) mg/dL 10/15/18 10/16/18 10/16/18 Range/Units 23:48 05:29 11:40 Potassium (3.5-5.1) mmol/L POC Glucose (mg/dL) 165 H 157 H 152 H (75-99) mg/dL Assessment and Plan Plan: Assessment: 1. Acute kidney injury mostly prerenal secondary to sepsis. Improved. Creatinine 2.66 as of yesterday. 2. Chronic kidney disease stage IV with baseline creatinine in the range of 2.2-2.5 outpatient. 3. Pneumonia maintained on antibiotics. 4. Hypokalemia from poor oral intake status post placement. 5. Hypertension with chronic kidney disease. Controlled. Plan: Maintain tube feeding. Check labs today. Avoid nephrotoxins. Anticipate discharge soon. Follow up outpatient in the next 1-2 weeks.
[2018-10-16 14:16] LABS: Calcium 7.5 mg/dL (8.4-10.2)
[2018-10-16] MEDS ORDERED: POTASSIUM CHLORIDE ER 20 MEQ TAB.ER PO STA ×2 (17:12→22:32)
--- NOTE | 2018-10-16 17:12 | P.PN ---
Progress Note - Text Progress Note Date: 10/16/18 Presenting complaint: Short of breath Interval history: This patient was initially admitted to the hospital in August of this year. Was here for quite some time. At that was treated for pneumonia and metabolic nephropathy and was on the ventilator. Patient also found to esophagitis was in septic shock and had acute tubular necrosis. Also GI bleed with multiple blood transfusions. No obvious source of bleeding was found. Patient also had thoracentesis for pleural effusion. Patient also had a PEG tube placed. Patient was here in the hospital about a month ago for UTI and cystitis. This admission patient was found unresponsive at home. [place] to be possible aspiration pneumonia and/or UTI. Patient was extubated on 10/10/2018 Today- . Stable. Sitting up. Nothing by mouth. Getting tube feeding. Still has a rectal tube. Having loose stools. Review of systems: Was done for constitutional, cardiovascular, GI, pulmonary. relevant finding as above Current medications are reviewed that include: DuoNeb, IV Unasyn, tube feeding On examination: VITAL SIGNS: 98, 72, 16, 156/82, 100% on 3 L GENERAL APPEARANCE:. Laying in bed, comfortable HEENT: Normal external appearance of nose and ear. Oral cavity dry EYES: Pupils equal. Conjunctiva pale NECK: JVD unable to assess. Mass not palpable. RESPIRATORY: Respiratory effort increased. Lungs-decreased breath sounds, occasional crackles CARDIOVASCULAR: First and second sounds normal. No edema. ABDOMEN: Soft. Liver and spleen not palpable. No tenderness. No mass palpable. PEG tube in place PSYCHIATRY: Awake answering questions NEUROLOGICAL: Following commands, moving all 4 limbs Investigations, in clinical context: Potassium 3 bun 73 creatinine 2.51 C. diff negative Sputum showing Aracelis albicans and's MSSA Assessment: -pneumonia suspected aspiration pneumonia, causing sepsis from staph aureus on admission -Acute hypoxic respiratory failure, secondary to pneumonia, status post ventilator assistance, down to 2 L nasal cannula -Chronic esophagitis -PEG tube, chronic -Hypothyroid -Chronic kidney disease stage III from nephrosclerosis at baseline -Anemia of chronic kidney disease -Anemia from recent GI bleed exact source unknown -Acute renal failure from acute tubal necrosis from underlying sepsis, some improvement -Severe metabolic acidosis status post bicarbonate drip -Dysphagia, showed gross silent aspiration. By MBS -Acute antibiotic associated diarrhea. Negative for C. diff. Plan: Discussed with Dr. Wang from ID. DC IV Zosyn and switch over to oral Augmentin. We'll add Metamucil to form up the stool. Was that is then patient can have the FMS discontinued and can go to the ECF. Care was discussed with the patient. Replace potassium
--- NOTE | 2018-10-16 17:34 | PN ---
PROGRESS NOTE DATE OF SERVICE: 10/16/2018 REASON FOR FOLLOWUP: Aspiration pneumonia MSSA and diarrhea. INTERVAL HISTORY: The patient is currently afebrile. The patient has been breathing comfortably. Denies having any chest pain. Occasional cough. No nausea, no vomiting. The patient still has significant diarrhea with a fecal management system, and stool for C difficile was requested last night; not done. PHYSICAL EXAMINATION: Blood pressure is 156/82 with pulse of 72, temperature 98. He is 100% on 3 L nasal cannula. General description is an elderly male up in the chair in no distress. RESPIRATORY SYSTEM: Unlabored breathing with decreased breath sounds at the bases. HEART: S1, S2. Regular rate and rhythm. ABDOMEN: Soft. No tenderness. LABS: BUN of 73, creatinine 2.51. DIAGNOSTIC IMPRESSION AND PLAN: 1. Patient with aspiration pneumonia. Sputum has been MSSA and Aracelis albicans; patient was on Unasyn. That was transitioned to a course of oral Augmentin. 2. Diarrhea, possibly antibiotic-associated, improved with discontinuation of IV Unasyn. Currently on Questran. Stool for C difficile requested again. Plan of care was discussed with the admitting physician. MMODL / IJN: [id number] /
[2018-10-16 17:40] LABS: Glucose,Whole Blood 141 mg/dL (75-99)
[2018-10-16 21:47] LABS: Magnesium 1.7 mg/dL (1.6-2.3); Potassium 2.9 mmol/L (3.5-5.1)
[2018-10-16] MEDS: ATORVASTATIN 20 MG TAB PO SCH (22:47)
[2018-10-16] MEDS: AMOXIC-POT CLAV 500-125 MG 1 EACH TAB PO SCH (22:47)
[2018-10-17 00:07] LABS: Glucose,Whole Blood 101 mg/dL (75-99)
[2018-10-17] MEDS: INSULIN ASPART (NovoLOG) 100 UNIT/ML VIAL SQ SCH ×3 (00:35→12:24)
[2018-10-17] MEDS: SODIUM CHLORIDE 0.45% 1,000 ML IV SCH (00:35)
[2018-10-17 05:58] LABS: Glucose,Whole Blood 150 mg/dL (75-99)
[2018-10-17] MEDS: ACETAMINOPHEN TAB 325 MG TAB PO PRN (06:09)
[2018-10-17] MEDS: LEVOTHYROXINE 25 MCG TAB PO SCH (06:09)
[2018-10-17 06:29] VITALS: RESP 16
[2018-10-17 06:40] LABS: Magnesium 1.6 mg/dL (1.6-2.3)
[2018-10-17] MEDS: METOPROLOL TARTRATE 50 MG TAB PO SCH ×2 (07:08→09:14)
[2018-10-17] MEDS ORDERED: POTASSIUM CHLORIDE ER 20 MEQ TAB.ER PO STA (08:51)
[2018-10-17] MEDS: IPRATROPIUM-ALBUTEROL 3 ML NEB INHALATION SCH ×2 (08:57→12:12)
[2018-10-17] MEDS ORDERED: MAGNESIUM OXIDE 400 MG TAB PO SCH (09:00)
[2018-10-17] MEDS ORDERED: amLODIPine 10 MG TAB PO SCH (09:00)
[2018-10-17] MEDS: PANTOPRAZOLE SODIUM 40 MG GRANULE PKT PO SCH (09:13)
[2018-10-17] MEDS: ASPIRIN 81 MG PO SCH (09:13)
[2018-10-17] MEDS: AMOXIC-POT CLAV 500-125 MG 1 EACH TAB PO SCH (09:14)
[2018-10-17] MEDS: CALCIUM CARBONATE LIQUID 500 MG/5 ML CUP PO SCH (09:14)
[2018-10-17] MEDS: PSYLLIUM HUSK 100% 6 GM PACKET PO SCH (09:14)
[2018-10-17] MEDS: FERROUS SULFATE 325 MG TAB PO SCH (09:14)
[2018-10-17] MEDS ORDERED: POTASSIUM CHLORIDE ER 20 MEQ TAB.ER PO ONE (11:00)
[2018-10-17 11:21] LABS: Glucose,Whole Blood 138 mg/dL (75-99)
--- NOTE | 2018-10-17 11:26 | P.PN ---
Subjective Patient is seen in follow-up for acute kidney injury on chronic kidney disease. He was transferred out of the intensive care unit on October 15. Renal function is improved. Creatinine 2.17 today. He is maintained on tube feeding which is at goal. No chest pain or shortness of breath. No active complaints at this time. Vital signs are stable. General: The patient appeared well nourished and normally developed. HEENT: Head exam is unremarkable. Neck is without jugular venous distension. LUNGS: Lungs are clear to auscultation and percussion. Breath sounds decreased. HEART: Rate and Rhythm are regular. First and second heart sounds normal. No murmurs, rubs or gallops. ABDOMEN: Abdominal exam reveals normal bowel sounds. Non-tender and non- distended. No evidence of peritonitis. EXTREMITITES: No clubbing, cyanosis, or edema. Objective - Vital Signs Vital signs: Vital Signs Temp 98.2 F 10/17/18 06:27 Pulse 76 10/17/18 09:10 Resp 16 10/17/18 06:27 BP 150/75 10/17/18 06:27 Pulse Ox 99 10/17/18 06:27 Intake & Output 10/16/18 10/17/18 10/17/18 18:59 06:59 18:59 Intake Total 1095 135 Output Total 1050 650 Balance 45 -515 Weight 65 kg Intake: Intake, IV Titration 120 Amount Sodium Chloride 0.45% 1, 120 000 ml @ 10 mls/hr IV . Q24H [facility] Rx#:[id number] Tube Feeding 675 135 Other 300 Output: Urine 400 650 Stool 650 Other: Voiding Method Urinal Urinal # Voids 1 ABP, PAP, CO, CI - Last Documented Arterial Blood Pressure 142/54 - Labs CBC & Chem 7: 10/15/18 04:55 10/17/18 06:18 Labs: Abnormal Lab Results - Last 24 Hours (Table) 10/16/18 10/16/18 10/16/18 Range/Units 11:40 13:37 17:38 Potassium 3.0 L (3.5-5.1) mmol/L BUN 73 H (9-20) mg/dL Creatinine 2.51 H (0.66-1.25) mg/dL Glucose 105 H (74-99) mg/dL POC Glucose (mg/dL) 152 H 141 H (75-99) mg/dL Calcium 7.5 L (8.4-10.2) mg/dL 10/16/18 10/17/18 10/17/18 Range/Units 21:11 00:05 05:57 Potassium 2.9 L (3.5-5.1) mmol/L BUN (9-20) mg/dL Creatinine (0.66-1.25) mg/dL Glucose (74-99) mg/dL POC Glucose (mg/dL) 101 H 150 H (75-99) mg/dL Calcium (8.4-10.2) mg/dL 10/17/18 10/17/18 Range/Units 06:18 11:19 Potassium 3.0 L (3.5-5.1) mmol/L BUN 65 H (9-20) mg/dL Creatinine 2.17 H (0.66-1.25) mg/dL Glucose 128 H (74-99) mg/dL POC Glucose (mg/dL) 138 H (75-99) mg/dL Calcium 7.0 L (8.4-10.2) mg/dL Assessment and Plan Plan: Assessment: 1. Acute kidney injury mostly prerenal secondary to sepsis. Improved. Creatinine 2.17 today. 2. Chronic kidney disease stage IV with baseline creatinine in the range of 2.2-2.5 outpatient. 3. Pneumonia maintained on antibiotics. 4. Hypokalemia from poor oral intake status post placement. 5. Hypertension with chronic kidney disease. Controlled. 6. Hypomagnesemia from poor oral intake maintained on Mag-Ox. Plan: Maintain tube feeding. Replace potassium. 60 mEq today. Add maintenance potassium supplementation. Avoid nephrotoxins. Anticipate discharge soon. Follow up outpatient in the next 1-2 weeks.
--- NOTE | 2018-10-17 12:00 | P.DS ---
Providers Date of admission: 10/06/18 23:07 Expected date of discharge: 10/17/18 Attending physician: John Elliott Consults: 10/06/18 22:31 Consult Physician Urgent Consulting Provider: Charlotte Medel Consult Reason/Comments: sepsis Do you want consulting provider notified?: Already Contacted Consult Physician Urgent Consulting Provider: Ximena Callahan Consult Reason/Comments: Renal failure Do you want consulting provider notified?: Already Contacted 10/07/18 13:44 Consult Physician Routine Consulting Provider: Rickie Sloan Consult Reason/Comments: Sepsis/UTI Do you want consulting provider notified?: Yes 10/10/18 12:10 Consult Physician Routine Consulting Provider: Andre Uribe Consult Reason/Comments: Frequent ectopy Do you want consulting provider notified?: Yes Primary care physician: Justice Silva Hospital Course: Hospital course: This patient was initially admitted to the hospital in August of this year. Was here for quite some time. At that was treated for pneumonia and metabolic nephropathy and was on the ventilator. Patient also found to esophagitis was in septic shock and had acute tubular necrosis. Also GI bleed with multiple blood transfusions. No obvious source of bleeding was found. Patient also had thoracentesis for pleural effusion. Patient also had a PEG tube placed. Patient was here in the hospital about a month ago for UTI and cystitis. This admission patient was found unresponsive at home. [place] to be possible aspiration pneumonia and/or UTI. Patient was extubated on 10/10/2018 Patient failed his swallowing exam. Continue with tube feeding. Discussed with Dr. Keating from nephrology. Okay to [place]. Discussed with Dr. dozier from [place]. [facility] on Augmentin. Patient was having some diarrhea. C. diff was negative. Started on Metamucil. Diarrhea is stopped. Consultations: Dr. Liu and associates from pulmonary Dr. Sloan from infectious disease Dr. Callahan and associates from nephrology Dr. echo feldman from cardiology On examination: VITAL SIGNS: 98.2, 81, 16, 150/75, 99% on 3 L GENERAL APPEARANCE:. Sitting up in a chair, awake HEENT: Normal external appearance of nose and ear. Oral cavity dry EYES: Pupils equal. Conjunctiva pale NECK: JVD unable to assess. Mass not palpable. RESPIRATORY: Respiratory effort increased. Lungs-decreased breath sounds, occasional crackles CARDIOVASCULAR: First and second sounds normal. No edema. ABDOMEN: Soft. Liver and spleen not palpable. No tenderness. No mass palpable. PEG tube in place PSYCHIATRY: Awake answering questions NEUROLOGICAL: Following commands, moving all 4 limbs Investigations, in clinical context: Bun 65 creatinine 2.17 Sputum showing Aracelis albicans and's MSSA 2-D echo shows EF of 55-60% Assessment: -pneumonia suspected aspiration pneumonia, causing sepsis from staph aureus on admission -Acute hypoxic respiratory failure, secondary to pneumonia, status post ventilator assistance, down to 2 L nasal cannula -Chronic esophagitis -PEG tube, chronic -Hypothyroid -Chronic kidney disease stage III from nephrosclerosis at baseline -Anemia of chronic kidney disease -Anemia from recent GI bleed exact source unknown -Acute renal failure from acute tubal necrosis from underlying sepsis, some improvement -Severe metabolic acidosis status post bicarbonate drip -Dysphagia, showed gross silent aspiration. By MBS. Patient to repeat swallowing exam down the road -Antibiotic associated diarrhea. Responded well to Metamucil Disposition: ECF/[facility] Patient Condition at Discharge: Stable Plan - Discharge Summary Discharge Rx Participant: Yes New Discharge Prescriptions: New Amoxicillin/Potassium Clav [Augmentin 875-125 Tablet] 1 tab PO Q12HR #14 tab Atorvastatin [Lipitor] 20 mg PO HS #0 tab Psyllium Husk 100% [Metamucil Packet] 6 gm PO BID #1 packet Continue amLODIPine BESYLATE [Norvasc] 10 mg PO DAILY Ferrous Sulfate [Feosol] 325 mg PO DAILY #30 tab Ipratropium-Albuterol Nebulize [Duoneb 0.5 mg-3 mg/3 ml Soln] 3 ml INHALATION RT-QID ampul.neb Metoprolol Tartrate [Lopressor] 50 mg PO BID tab Omeprazole [PriLOSEC] 20 mg PO AC-BID #1 cap Levothyroxine Sodium [Synthroid] 25 mcg PO DAILY #1 tab Magnesium Oxide [Mag-Ox] 400 mg PO DAILY Ergocalciferol (Vitamin D2) [Ergocalciferol] 66,000 unit PO Q7D Acetaminophen Tab [Tylenol] 650 mg PO Q6H PRN PRN Reason: Fever And/ Or Pain Aspirin 81 mg PO DAILY chew Sodium Bicarbonate Tab 650 mg PO BID #0 Epoetin Von [Procrit] 4,000 unit IJ MOWEFR Discharge Medication List amLODIPine BESYLATE [Norvasc] 10 mg PO DAILY 06/29/18 [History] Ferrous Sulfate [Feosol] 325 mg PO DAILY #30 tab 07/04/18 [Rx] Ipratropium-Albuterol Nebulize [Duoneb 0.5 mg-3 mg/3 ml Soln] 3 ml INHALATION RT-QID ampul.neb 07/24/18 [Rx] Levothyroxine Sodium [Synthroid] 25 mcg PO DAILY #1 tab 07/24/18 [Rx] Metoprolol Tartrate [Lopressor] 50 mg PO BID tab 07/24/18 [Rx] Omeprazole [PriLOSEC] 20 mg PO AC-BID #1 cap 07/24/18 [Rx] Acetaminophen Tab [Tylenol] 650 mg PO Q6H PRN 08/31/18 [History] Ergocalciferol (Vitamin D2) [Ergocalciferol] 66,000 unit PO Q7D 08/31/18 [History] Magnesium Oxide [Mag-Ox] 400 mg PO DAILY 08/31/18 [History] Aspirin 81 mg PO DAILY chew 09/06/18 [Rx] Sodium Bicarbonate Tab 650 mg PO BID #0 09/06/18 [Rx] Epoetin Von [Procrit] 4,000 unit IJ MOWEFR 10/06/18 [History] Amoxicillin/Potassium Clav [Augmentin 875-125 Tablet] 1 tab PO Q12HR #14 tab 10/16/18 [Rx] Atorvastatin [Lipitor] 20 mg PO HS #0 tab 10/16/18 [Rx] Psyllium Husk 100% [Metamucil Packet] 6 gm PO BID #1 packet 10/16/18 [Rx] Follow up Appointment(s)/Referral(s): Andre Uribe MD [STAFF PHYSICIAN] - 2 Weeks Justice Silva MD [Primary Care Provider] - 1-2 days
--- NOTE | 2018-10-17 13:46 | PN ---
PROGRESS NOTE DATE OF SERVICE: 10/17/2018 REASON FOR FOLLOWUP: 1. Aspiration pneumonia MSSA. 2. Diarrhea. INTERVAL HISTORY: The patient is currently afebrile. Patient has been breathing comfortably. Denies having any chest pain. Occasional cough. No nausea or vomiting. No abdominal pain. The patient's stool fecal management system was removed this morning. Did not have any bowel movement since then. PHYSICAL EXAMINATION: On examination, blood pressure 105/75 with a pulse of 81, temperature 98.2. He is 99% on 3 L nasal cannula. General description is an elderly male lying in bed in no distress. RESPIRATORY SYSTEM: Unlabored breathing with decreased breath sounds at the bases. HEART: S1, S2. Regular rate and rhythm. ABDOMEN: Soft, no tenderness. LABS: BUN of 65, creatinine is 2.17. DIAGNOSTIC IMPRESSION AND PLAN: 1. Patient with aspiration pneumonia. Sputum has been MSSA and currently the patient showed overall clinical improvement. Finish therapy with short course of oral Augmentin. 2. Diarrhea, possibly antibiotic sensitive. Stool for Clostridium difficile negative. Symptomatic treatment. MMODL / IJN: [id number] /
[2018-10-17 14:16] VITALS: BP 138/71; PULSE 72; TEMP 98.7
--- NOTE | 2018-10-17 15:06 | P.PN ---
Subjective Progress Note Date: 10/17/18 Principal diagnosis: Acute sepsis secondary to urinary tract infection in the left lower lobe pneumonia A 68-year-old male patient with extensive medical problems and comorbidities, who was recently discharged home and he was being followed up by a friend and few days later he was found on the ground confused altered weak and he was brought into the hospital where he was found to be hypotensive, hypothermic with temperature of 93.5 and having some leukocytosis with hypernatremia and the sodium ranging 147 and 148 and a creatinine of 5.9 and he was quite acidotic with serum bicarb level was as low as 6 and anion gap of 22. Lactic acid was nonelevated. The patient's blood sugar was at 63. 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 Chest x-ray showed some limited infiltration of the left lung base. CAT scan of the abdomen was done and it showed no significant acute abnormalities in the abdomen other than chronic pancreatitis-type of picture with extensive pancreatic calcification. The patient was given IV fluids, bicarb infusion and the patient was covered with a combination of Zosyn and vancomycin and Diflucan. Currently the patient is in the intensive care unit. Laying comfortably in bed. Urine was quite cloudy and dirty at time of admission and this has improved. The patient is not requiring any pressors at this point in time. This bonding and answering questions appropriately. Note that the patient has a PEG tube in place. This was placed on previous admission due to difficulties in swallowing.In terms of his previous history, this 68-year-old male patient was in our intensive care unit back in July 2018. He was in for septic shock related complications related to staph pneumonia and an same time he had UTI, metabolic acidosis and acute kidney injury. He has previous history of alcoholism and previous history of pancreatitis and previous history of ERCP with insertion of a biliary stent. The patient had staph pneumonia and MSSA was cultured in his sputum. He was intubated back in 06/30/2018 and he was successfully extubated on 07/03/2018. He required BiPAP for some point. He had CHF and bilateral pleural effusion. He was treated with diuretics. He was noted that he was unable to swallow and he was having difficulties with his voice. ENT evaluated the patient the patient was seen by Dr. Street and the patient showed bilateral vocal cord hemorrhage/laryngitis. Vocal cord movement was not good and the patient was anticipated to have vocal cord dysfunction for an extended period of time. In regards to his dysphagia, it was noted that the patient had limited pharyngeal movement and there was concern towards bulbar palsy. He was worked up with an MRI. He is swallow was poor. He was aspirating and he was given a PEG tube for enteral feeding and nutritional support. His acute kidney injury improved and the creatinine on dropped significantly. He was discharged to be readmitted back in October 2018 for another urine checked infection. He was treated and he was discharged home after being treated for pneumonia/UTI. He was discharged home on oral Augmentin. Patient seen today 10/16/2018 in follow-up on the regular medical floor. He is currently awake and alert in no acute distress. Resting comfortably in bed. No worsening shortness of breath, cough or congestion. He is maintaining good O2 saturations in the high 90s on 2 L/m per nasal cannula. He's been afebrile. He did undergo a barium swallow yesterday that was positive for significant residu als postingestion of putting with vallecular pooling as well as evidence of penetration and aspiration with any. He remains nothing by mouth. Tube feedings are continued. Sputum was positive for methicillin sensitive Staphylococcus aureus. Currently on Unasyn. On 10/17/2018 patient seen in follow-up on medical surgical floor. He is awake and alert, resting comfortably in bed, no acute distress, 3 L of oxygen and the pulse ox of 99%, afebrile, hemodynamically stable, denies any shortness of breath or chest pain, denies any specific complaints. Antibiotic coverage has been switched to oral Augmentin MSSA pneumonia. Clinically patient is stable, follow-up chest x-ray on 10/14/2018 showed resolving bibasilar infiltrates, and small left pleural effusion. Likely improving, lung sounds are clear, diminished at the bases with a few scattered rales Objective - Vital Signs Vital signs: Vital Signs Temp 98.7 F 10/17/18 14:15 Pulse 72 10/17/18 14:15 Resp 16 10/17/18 14:15 BP 138/71 10/17/18 14:15 Pulse Ox 99 10/17/18 14:15 Intake & Output 10/16/18 10/17/18 10/17/18 18:59 06:59 18:59 Intake Total 1095 135 430 Output Total 1050 650 600 Balance 45 -515 -170 Weight 65 kg Intake: IV 70 Sodium Chloride 0.45% 1, 70 000 ml @ 10 mls/hr IV . Q24H ANTHONY Rx#:[id number] Intake, IV Titration 120 Amount Sodium Chloride 0.45% 1, 120 000 ml @ 10 mls/hr IV . Q24H ANTHONY Rx#:[id number] Tube Feeding 675 135 360 Other 300 Output: Urine 400 650 Stool 650 600 Other: Voiding Method Urinal Urinal Urinal # Voids 1 ABP, PAP, CO, CI - Last Documented Arterial Blood Pressure 142/54 - Exam GENERAL EXAM: Alert, pleasant, 68-year-old white male, cooperative liters of oxygen with pulse ox of 99%, comfortable in no apparent distress. HEAD: Normocephalic/atraumatic. EYES: Normal reaction of pupils, equal size. Conjunctiva pink, sclera white. NOSE: Clear with pink turbinates. THROAT: No erythema or exudates. NECK: No masses, no JVD, no thyroid enlargement, no adenopathy. CHEST: No chest wall deformity. Symmetrical expansion. LUNGS: Equal air entry with diminished breath sounds with a few bibasilar crackles CVS: Regular rate and rhythm, normal S1 and S2, no gallops, no murmurs, no rubs ABDOMEN: Soft, nontender. No hepatosplenomegaly, normal bowel sounds, no gua rding or rigidity. EXTREMITIES: No clubbing, no edema, no cyanosis, 2+ pulses and upper and lower extremities. MUSCULOSKELETAL: Muscle strength and tone normal. SPINE: No scoliosis or deformity SKIN: No rashes CENTRAL NERVOUS SYSTEM: Alert and oriented -3. No focal deficits, tone is normal in all 4 extremities. PSYCHIATRIC: Alert and oriented -3. Appropriate affect. Intact judgment and insight. - Labs CBC & Chem 7: 10/15/18 04:55 10/17/18 12:03 Labs: Abnormal Lab Results - Last 24 Hours (Table) 10/16/18 10/16/18 10/17/18 Range/Units 17:38 21:11 00:05 Potassium 2.9 L (3.5-5.1) mmol/L BUN (9-20) mg/dL Creatinine (0.66-1.25) mg/dL Glucose (74-99) mg/dL POC Glucose (mg/dL) 141 H 101 H (75-99) mg/dL Calcium (8.4-10.2) mg/dL 10/17/18 10/17/18 10/17/18 Range/Units 05:57 06:18 11:19 Potassium 3.0 L (3.5-5.1) mmol/L BUN 65 H (9-20) mg/dL Creatinine 2.17 H (0.66-1.25) mg/dL Glucose 128 H (74-99) mg/dL POC Glucose (mg/dL) 150 H 138 H (75-99) mg/dL Calcium 7.0 L (8.4-10.2) mg/dL 10/17/18 Range/Units 12:03 Potassium 3.4 L (3.5-5.1) mmol/L BUN (9-20) mg/dL Creatinine (0.66-1.25) mg/dL Glucose (74-99) mg/dL POC Glucose (mg/dL) (75-99) mg/dL Calcium (8.4-10.2) mg/dL Assessment and Plan Plan: Assessment: 1 acute hypoxic respiratory failure secondary to acute sepsis, related to MSSA pneumonia, and urinary tract infection with culture positive for Aracelis glabrata species 2 acute kidney injury secondary to acute tubular necrosis, patient is known to have history of chronic kidney disease stage III, and proved 3 acute dehydration, improved. 4 acute metabolic acidosis, anion gap on admission was 19. Resolved. 5 history of chronic pancreatitis 6 history of alcoholism 7 history of chronic normocytic anemia. 8 previous history of MSSA pneumonia requiring intubation and mechanical ventilation 9 history of focal cord dysfunction 10 previous history of GI bleeding 12 leukocytosis secondary to above, improved Plan: Patient is clinically stable, doing good from pulmonary perspective, no shortness of breath, no chest pain, patient is afebrile, patient has completed IV antibiotics for MSSA pneumonia, and has been transitioned to oral Augmentin. No acute events overnight, no specific complaints, patient is being discharged to [facility] today. Follow-up in the office with Dr. Medel I performed a history & physical examination of the patient and discussed their management with my nurse practitioner, Ashley Vigil. I reviewed the nurse practitioner's note and agree with the documented findings and plan of care. Lung sounds are positive for diminished breath sounds. The findings and the impression was discussed with the patient. I attest to the documentation by the nurse practitioner. Time with Patient: Less than 30
--- NOTE | 2018-10-18 13:31 | CDI ---
Documentation Clarification Form Date: 10/18/2018 From: Flora Cornell Phone: If questions call Helena Robbins @ [phone], Hours-8:30 am & 5 pm M- F Admit Date: 10/06/2018 11:07:00 PM Patient Name: Twin Enamorado Visit Number: [id number] Discharge Date: 10/17/2018 3:55:00 PM ATTENTION: The Clinical Documentation Specialists (CDI) and [facility] Coding Staff appreciate your assistance in clarifying documentation. Please respond to the clarification below the line at the bottom and electronically sign. The CDI & [facility] Coding staff will review the response and follow-up if needed. Please note: Queries are made part of the Legal Health Record. If you have any questions, please contact the author of this message via ITS. Dr. Luiz Singh CHF is documented in the documented in 10/07 consult, PNs 10/08, 10/09, 10/10, 10/11, 10/12, 10/13, 10/14, 10/16 & 10/17. History/Risk Factors: severe sepsis, pneumonia, ATN VS/Pulse OX: 10/11-T-9705, P-80, R-16, BP-112/59, O2 sat-92 BNP: 10/06-13067 Echocardiogram Results: left ventricular systolic function is normal, EF between 55-60% Chest X Ray: 10/10-bilateral pleural effusion Treatment: 10/12 IV Lasix In your professional opinion, can you please clarify the acuity and type of CHF if known? TYPE Systolic Heart Failure Diastolic Heart Failure Systolic & Diastolic Heart Failure ACUITY Acute Chronic Acute on Chronic Heart Failure Unable to Determine Other, please specify MTDD
== END 2018-10-17 15:55 | DRG 871 ==
LOC: EC 16:41 → 2SICU 23:07 → 4SSUR 10-15 21:03
PROVIDERS: ADMIT Hospitalist; ATTEND Hospitalist
PROC: 5A1945Z Respiratory Ventilation, 24-96 Consecutive Hours (ICD-10-PCS; principal; 2018-10-07)
PROC: 0BH17EZ Insertion of Endotracheal Airway into Trachea, Via Natural or Artificial Opening (ICD-10-PCS; 2018-10-07)
PROC: 06HM33Z Insertion of Infusion Device into Right Femoral Vein, Percutaneous Approach (ICD-10-PCS; 2018-10-07)
PROC: 30243N1 Transfusion of Nonautologous Red Blood Cells into Central Vein, Percutaneous Approach (ICD-10-PCS; 2018-10-08)
PROC: 03HY32Z Insertion of Monitoring Device into Upper Artery, Percutaneous Approach (ICD-10-PCS; 2018-10-08)
PROC: 4A133B1 Monitoring of Arterial Pressure, Peripheral, Percutaneous Approach (ICD-10-PCS; 2018-10-08)
PROC: 4A133J1 Monitoring of Arterial Pulse, Peripheral, Percutaneous Approach (ICD-10-PCS; 2018-10-08)
DX: A41.01 Sepsis due to Methicillin susceptible Staphylococcus aureus (principal); G93.41 Metabolic encephalopathy; J69.0 Pneumonitis due to inhalation of food and vomit; N17.0 Acute kidney failure with tubular necrosis; J96.01 Acute respiratory failure with hypoxia; J15.211 Pneumonia due to Methicillin susceptible Staphylococcus aureus; B37.1 Pulmonary candidiasis; E87.2 Acidosis; E87.0 Hyperosmolality and hypernatremia; N18.4 Chronic kidney disease, stage 4 (severe); K86.1 Other chronic pancreatitis; J44.0 Chronic obstructive pulmonary disease with (acute) lower respiratory infection; G12.22 Progressive bulbar palsy; J98.11 Atelectasis; I47.2 Ventricular tachycardia; I13.0 Hypertensive heart and chronic kidney disease with heart failure and stage 1 through stage 4 chronic kidney disease, or unspecified chronic kidney disease; K52.1 Toxic gastroenteritis and colitis; B37.41 Candidal cystitis and urethritis; R65.20 Severe sepsis without septic shock; E87.8 Other disorders of electrolyte and fluid balance, not elsewhere classified; E88.89 Other specified metabolic disorders; I50.9 Heart failure, unspecified; E87.5 Hyperkalemia; N28.1 Cyst of kidney, acquired; E83.39 Other disorders of phosphorus metabolism; R13.19 Other dysphagia; E83.51 Hypocalcemia; E83.42 Hypomagnesemia; E86.0 Dehydration; E16.2 Hypoglycemia, unspecified; E86.1 Hypovolemia; D63.1 Anemia in chronic kidney disease; I49.3 Ventricular premature depolarization; E55.9 Vitamin D deficiency, unspecified; E87.6 Hypokalemia; G31.9 Degenerative disease of nervous system, unspecified; E03.9 Hypothyroidism, unspecified; J38.3 Other diseases of vocal cords; K20.9 Esophagitis, unspecified; R29.6 Repeated falls; T36.95XA Adverse effect of unspecified systemic antibiotic, initial encounter; F10.20 Alcohol dependence, uncomplicated; Z93.1 Gastrostomy status; Z79.82 Long term (current) use of aspirin; Z79.890 Hormone replacement therapy; Z79.899 Other long term (current) drug therapy; Z87.01 Personal history of pneumonia (recurrent); Z87.19 Personal history of other diseases of the digestive system; Z87.891 Personal history of nicotine dependence; Z91.81 History of falling; Z98.890 Other specified postprocedural states; Z98.1 Arthrodesis status; Z87.440 Personal history of urinary (tract) infections; Z86.19 Personal history of other infectious and parasitic diseases; Z96.1 Presence of intraocular lens; Z98.41 Cataract extraction status, right eye; Z98.42 Cataract extraction status, left eye; Z80.8 Family history of malignant neoplasm of other organs or systems; W18.30XA Fall on same level, unspecified, initial encounter; Z80.3 Family history of malignant neoplasm of breast
CPT/HCPCS: 36415; 36600; 51702; 70450; 71045; 71046; 72125; 72170; 74176; 74220; 80048; 80053; 80202; 80306; 80320; 81001; 82009; 82330; 82550; 82805; 83605; 83735; 83880; 84100; 84132; 84443; 84484; 84600; 85025; 85027; 85610; 85730; 86850; 86900; 86901; 86920; 87040; 87070; 87077; 87086; 87186; 87205; 87324; 93005; 93306; 94002; 94003; 94640; 94644; 96361; 96365; 96366; 96367; 96368; 96375; 96376; 99291

== ENCOUNTER 2018-10-19 07:55 | Inpatient (IN) | payer MEDICARE, OTHER ==
--- NOTE | 2018-10-19 08:13 | ED ---
Extremity Problem HPI <Gumaro Coreas - Last Filed: 10/19/18 12:04> - General Source: patient, EMS Mode of arrival: EMS Limitations: no limitations <Taryn Mcguire - Last Filed: 10/19/18 12:21> - General Chief complaint: Extremity Problem,Nontraumatic Stated complaint: Infection Time Seen by Provider: 10/19/18 08:04 - History of Present Illness Initial comments: 68-year-old male recently discharged from [facility] for sepsis. Patient had a IV established in the right femoral. Patient states that was removed on October 17. He states that he had pain at time of the removal. He states has been increasing since. Patient noticed swelling in the groin and notified a nurse at his rehab facility, he states he notified nursing staff and her sent to the emergency department for evaluation. They felt there may be an infection. Patient denies fever chills night sweats Gen. malaise or flulike symptoms. Patient denies any significant redness however the area is very tender. Patient denies any testicular pain redness or swelling. Patient denies nausea vomiting abdominal pain chest pain or SOB. EMS transferred patient to [facility] ER for evaluation from rehabilitation facility. Remaining ROS (-). Upon arrival patient appears well there is no signs of acute distress. Patient VS within acceptable limits upon arrival. (Taryn Mcguire) - Related Data Home Medications Medication Instructions Recorded Confirmed amLODIPine BESYLATE [Norvasc] 10 mg PEG/G-TUBE DAILY 06/29/18 10/19/18 Acetaminophen Tab [Tylenol] 650 mg PEG/G-TUBE Q6H PRN 08/31/18 10/19/18 Ergocalciferol (Vitamin D2) 66,000 unit PEG/G-TUBE TH 08/31/18 10/19/18 [Ergocalciferol] Magnesium Oxide [Mag-Ox] 400 mg PEG/G-TUBE DAILY 08/31/18 10/19/18 Epoetin Von [Procrit] 4,000 unit IJ MOWEFR 10/06/18 10/19/18 Amoxicillin/Potassium Clav 1 tab PEG/G-TUBE Q12HR 10/19/18 10/19/18 [Augmentin 875-125 Tablet] Aspirin 81 mg PEG/G-TUBE DAILY 10/19/18 10/19/18 Atorvastatin [Lipitor] 20 mg PEG/G-TUBE HS 10/19/18 10/19/18 Ferrous Sulfate [Feosol] 325 mg PEG/G-TUBE DAILY 10/19/18 10/19/18 Levothyroxine Sodium [Synthroid] 25 mcg PEG/G-TUBE DAILY 10/19/18 10/19/18 Metoprolol Tartrate [Lopressor] 50 mg PEG/G-TUBE BID 10/19/18 10/19/18 Omeprazole [PriLOSEC] 20 mg PEG/G-TUBE AC-BID 10/19/18 10/19/18 Psyllium Husk 100% [Metamucil 6 gm PEG/G-TUBE BID 10/19/18 10/19/18 Packet] Sodium Bicarbonate Tab 650 mg PEG/G-TUBE BID 10/19/18 10/19/18 Previous Rx's Medication Instructions Recorded Ipratropium-Albuterol Nebulize 3 ml INHALATION RT-QID ampul.neb 07/24/18 [Duoneb 0.5 mg-3 mg/3 ml Soln] Allergies Allergy/AdvReac Type Severity Reaction Status Date / Time No Known Allergies Allergy Verified 10/19/18 08:26 Review of Systems ROS Other: All systems not noted in ROS Statement are negative. <Gumaro Coreas - Last Filed: 10/19/18 12:04> ROS Other: All systems not noted in ROS Statement are negative. <Taryn Mcguire - Last Filed: 10/19/18 12:21> ROS Statement: Those systems with pertinent positive or pertinent negative responses have been documented in the HPI. Past Medical History Past Medical History: GI Bleed, Hypertension, Neurologic Disorder, Pneumonia, Renal Disease Additional Past Medical History / Comment(s): Hx calculus of bile duct, acute cholecystitis, pancreatitis. History of Any Multi-Drug Resistant Organisms: None Reported Past Surgical History: Orthopedic Surgery Additional Past Surgical History / Comment(s): cervical surgery, bilateral cataract removal with lens implants, umbilical hernia as a baby, bile duct stent, ERCP, C3-6 plate Past Anesthesia/Blood Transfusion Reactions: No Reported Reaction Past Psychological History: No Psychological Hx Reported Smoking Status: Former smoker Past Alcohol Use History: Occasional Past Drug Use History: None Reported - Past Family History Father Family Medical History: Cancer Additional Family Medical History / Comment(s): Melanoma Mother Family Medical History: Cancer Additional Family Medical History / Comment(s): Breast cancer. <Taryn Mcguire Rocco - Last Filed: 10/19/18 12:21> General Exam Limitations: no limitations <Taryn Mcguire - Last Filed: 10/19/18 12:21> - General Exam Comments Initial Comments: General: The patient is awake and alert, in no distress, and does not appear acutely ill. Eye: Pupils are equal, round and reactive to light, extra-ocular movements are intact. No nystagmus. There is normal conjunctiva bilaterally. No signs of icterus. Ears, nose, mouth and throat: There are moist mucous membranes and no oral lesions. Neck: The neck is supple, there is no tenderness or JVD. Cardiovascular: There is a regular rate and rhythm. No murmur, rub or gallop is appreciated. Respiratory: Lungs are clear to auscultation, respirations are non-labored, breath sounds are equal. No wheezes, stridor, rales, or rhonchi. Gastrointestinal: Soft, non-distended, non-tender abdomen without masses or organomegaly noted. There is no rebound or guarding present. No CVA tenderness. Bowel sounds are unremarkable. Testicles no obvious swelling (possibility of mild) no tenderness to touch or redness. No perineal tenderness or erythema. N oted swelling in the right groin, minimal erythema, mild ecchymosis noted, pain and swelling stretches from femoral region toward medial aspect of upper thigh. Musculoskeletal: Normal ROM, no tenderness. Strength 5/5. Sensation intact. Strong popliteal pulses equal b/l. Diminished absent posterior tibial/DP pulses with doppler, feet are warm, no pain to palpation. Capillary refill 3 seconds. No pallor/cyanosis of feet/calfs. No LE swelling. Neurological: A&O x 3. CN II-XII intact, There are no obvious motor or sensory deficits. Coordination appears grossly intact. Speech is normal. Skin: Skin is warm and dry and no rashes or lesions are noted. Psychiatric: Cooperative, appropriate mood & affect, normal judgment. (Taryn Mcguire) Course <Gumaro Coreas - Last Filed: 10/19/18 12:04> Vital Signs 10/19/18 08:02 Temperature 98.6 F Pulse Rate 72 Respiratory 17 Rate Blood Pressure 129/75 O2 Sat by Pulse 94 L Oximetry - Reevaluation(s) Reevaluation #1: 10/19/18 10:31 Patient reevaluated by myself, Dr. Coreas. Patient does have swelling and tenderness right groin. This is not pulsatile. Ultrasound concerning for pseudoaneurysm. Case was discussed in detail with Dr. Mariscal. He will call back. 10/19/18 10:49 Case was again discussed with Dr. Mariscal who does request CTA and states Dr. Zhu will come evaluate. 10/19/18 12:04 Case was earlier discussed with Dr. Zhu who did recommend medical admission and will come evaluate. She recommends holding CTA at this time secondary to creatinine. Case was also discussed with Dr. Elliott, who will admit. (Gumaro Coreas) Medical Decision Making - Lab Data Result diagrams: 10/19/18 08:22 10/19/18 08:22 <Gumaro Coreas - Last Filed: 10/19/18 12:04> - Lab Data Result diagrams: 10/19/18 08:22 10/19/18 08:22 <Taryn Mcguire - Last Filed: 10/19/18 12:21> - Medical Decision Making 68yo male presenting for right groin pain and swelling. Patient recent for moral Lawrence catheter placed and removed on October 18. Patient states the pain has been present since. Patient states he has been increasing. Patient denies numbness tingling loss sensation are pale there are/cholecystis distal to the area tenderness. Patient states in the pain persisted he had his nurse evaluate his groin who sent to [facility] for further evaluation. Patient is significantly tender to palpation of the right groin. Patient has strong popliteal pulses bilaterally with Doppler. Patient has diminished to absent posterior tibial and posterior dorsalis pedis pulses bilaterally I feel this is chronic given the warm of palpation to the feet bilaterally as well as absence of pain. Sensation and capillary refill 3 seconds. Vascular was contacted. The recommended CTA however this was not able to be obtained at this time secondary to patient's creatinine. Order was canceled by Dr. Coreas. Patient will be admitted to Dr. duvall with Dr. Zhu the surgeon on consult. Patient was nothing by mouth and bed rest. Patient's pain controlled with IV Dilaudid. Patient is agreeable to admission at this time no further orders per admitting providers. (Taryn Mcguire) - Lab Data Lab Results 10/19/18 10/19/18 10/19/18 Range/Units 08:22 08:22 08:22 WBC 17.4 H (3.8-10.6) k/uL RBC 2.56 L (4.30-5.90) m/uL Hgb 7.5 L (13.0-17.5) gm/dL Hct 23.8 L (39.0-53.0) % MCV 93.1 (80.0-100.0) fL MCH 29.3 (25.0-35.0) pg MCHC 31.4 (31.0-37.0) g/dL RDW 25.7 H (11.5-15.5) % Plt Count 214 (150-450) k/uL Neutrophils % 90 % Lymphocytes % 6 % Monocytes % 2 % Eosinophils % 2 % Basophils % 0 % Neutrophils # 15.6 H (1.3-7.7) k/uL Lymphocytes # 1.0 (1.0-4.8) k/uL Monocytes # 0.4 (0-1.0) k/uL Eosinophils # 0.3 (0-0.7) k/uL Basophils # 0.0 (0-0.2) k/uL Manual Slide Review Performed Hypersegmented Neuts Present Toxic Granulation Present Polychromasia Present Hypochromasia Marked Poikilocytosis Slight Anisocytosis Marked Macrocytosis Slight PT (9.0-12.0) sec INR (<1.2) APTT (22.0-30.0) sec Sodium 140 (137-145) mmol/L Potassium 3.6 (3.5-5.1) mmol/L Chloride 107 (98-107) mmol/L Carbon Dioxide 26 (22-30) mmol/L Anion Gap 7 mmol/L BUN 50 H (9-20) mg/dL Creatinine 2.03 H (0.66-1.25) mg/dL Est GFR (CKD-EPI)AfAm 38 (>60 ml/min/1.73 sqM) Est GFR (CKD-EPI)NonAf 33 (>60 ml/min/1.73 sqM) Glucose 131 H (74-99) mg/dL Plasma Lactic Acid Fred 0.7 (0.7-2.0) mmol/L Calcium 7.4 L (8.4-10.2) mg/dL Total Bilirubin 0.3 (0.2-1.3) mg/dL AST 24 (17-59) U/L ALT 29 (21-72) U/L Alkaline Phosphatase 74 (38-126) U/L Total Protein 5.0 L (6.3-8.2) g/dL Albumin 2.3 L (3.5-5.0) g/dL 10/19/18 Range/Units 08:22 WBC (3.8-10.6) k/uL RBC (4.30-5.90) m/uL Hgb (13.0-17.5) gm/dL Hct (39.0-53.0) % MCV (80.0-100.0) fL MCH (25.0-35.0) pg MCHC (31.0-37.0) g/dL RDW (11.5-15.5) % Plt Count (150-450) k/uL Neutrophils % % Lymphocytes % % Monocytes % % Eosinophils % % Basophils % % Neutrophils # (1.3-7.7) k/uL Lymphocytes # (1.0-4.8) k/uL Monocytes # (0-1.0) k/uL Eosinophils # (0-0.7) k/uL Basophils # (0-0.2) k/uL Manual Slide Review Hypersegmented Neuts Toxic Granulation Polychromasia Hypochromasia Poikilocytosis Anisocytosis Macrocytosis PT 10.3 (9.0-12.0) sec INR 1.0 (<1.2) APTT 26.1 (22.0-30.0) sec Sodium (137-145) mmol/L Potassium (3.5-5.1) mmol/L Chloride (98-107) mmol/L Carbon Dioxide (22-30) mmol/L Anion Gap mmol/L BUN (9-20) mg/dL Creatinine (0.66-1.25) mg/dL Est GFR (CKD-EPI)AfAm (>60 ml/min/1.73 sqM) Est GFR (CKD-EPI)NonAf (>60 ml/min/1.73 sqM) Glucose (74-99) mg/dL Plasma Lactic Acid Fred (0.7-2.0) mmol/L Calcium (8.4-10.2) mg/dL Total Bilirubin (0.2-1.3) mg/dL AST (17-59) U/L ALT (21-72) U/L Alkaline Phosphatase (38-126) U/L Total Protein (6.3-8.2) g/dL Albumin (3.5-5.0) g/dL Disposition <Gumaro Coreas - Last Filed: 10/19/18 12:04> Is patient prescribed a controlled substance at d/c from ED?: No Time of Disposition: 12:20 Decision to Admit Reason: Admit from EC Decision Date: 10/19/18 Decision Time: 12:21 <Taryn Mcguire - Last Filed: 10/19/18 12:21> Clinical Impression: Pseudoaneurysm following procedure, Right groin pain, Decreased dorsalis pedis pulse, Leukocytosis Disposition: ADMITTED IP TO THIS HOSP Condition: Serious Referrals: Obed Smith DO [STAFF PHYSICIAN] - 1-2 days
[2018-10-19 08:49] LABS: Anisocytosis Marked; Basophils % (A) 0 %; Eosinophils # (A) 0.3 k/uL (0-0.7); Eosinophils % (A) 2 %; HCT 23.8 % (39.0-53.0); HGB 7.5 gm/dL (13.0-17.5); Hypochromasia Marked; Lymphocytes % (A) 6 %; MCH 29.3 pg (25.0-35.0); MCHC 31.4 g/dL (31.0-37.0); MCV 93.1 fL (80.0-100.0); Macrocytosis Slight; Mean Platelet Volume 8.9; Monocytes # (A) 0.4 k/uL (0-1.0); Monocytes % (A) 2 %; Neutrophils # (A) 15.6 k/uL (1.3-7.7); Neutrophils % (A) 90 %; Platelet Count 214 k/uL (150-450); Poikilocytosis Slight; RBC 2.56 m/uL (4.30-5.90); WBC 17.4 k/uL (3.8-10.6)
[2018-10-19 08:50] LABS: Albumin 2.3 g/dL (3.5-5.0); Calcium 7.4 mg/dL (8.4-10.2); Potassium 3.6 mmol/L (3.5-5.1); Total Bilirubin 0.3 mg/dL (0.2-1.3)
[2018-10-19 08:56] LABS: RDW 25.7 % (11.5-15.5)
--- NOTE | 2018-10-19 09:33 | US ---
EXAMINATION TYPE: US lower ext pseudo artery RT DATE OF EXAM: 10/19/2018 COMPARISON: NONE CLINICAL HISTORY: Pain. Block in right groin taken out Monday per patient EXAM PERFORMED: Grayscale and color Doppler duplex imaging performed of the groin, post cardiac dannielle ter to assess for pseudoaneurysm. SIDE PERFORMED: Right Color and Waveform Doppler performed to assess for the presence of pseudoaneurysm; Is there ultrasound evidence of a pseudoaneurysm: Yes Is there evidence of AV shunting: No Is there a fluid collection present: No To and fro flow noted within the right groin superficial to the common femoral artery, there is a manan row neck suspected. Abnormality measures approximately 6 cm IMPRESSION: Pseudoaneurysm right groin, recommend vascular surgery consult, report called to the emergency Center at the time of interpretation
[2018-10-19] MEDS ORDERED: cefTRIAXone IN SWFI 1,000 MG/10 ML SYRINGE IVP STA (09:56)
[2018-10-19] MEDS ORDERED: MORPHINE SULFATE 4 MG/ML SYRINGE IVP STA (10:18)
[2018-10-19 10:51] LABS: Hypersegmented Neutrophils Present
[2018-10-19 10:52] LABS: Polychromasia Present; Toxic Granulation Present
[2018-10-19] MEDS ORDERED: CALCIUM GLUCONATE 2 GM in SODIUM CHLORIDE 0.9% 100 ML IVPB ONE (11:18)
[2018-10-19] MEDS ORDERED: NALOXONE 0.4 MG/ML 1 ML VIAL IV PRN (11:38)
[2018-10-19 11:46] LABS: Partial Thromboplastin Time 26.1 sec (22.0-30.0); Prothrombin Time 10.3 sec (9.0-12.0)
[2018-10-19] MEDS: SODIUM CHLORIDE 0.9% 1,000 ML IV SCH ×2 (12:06→21:22)
--- NOTE | 2018-10-19 13:00 | P.GSCN ---
History of Present Illness Consult date: 10/19/18 Reason for Consult: Right groin pseudoaneurysm History of present illness: The patient is a 68-year-old male who was previously admitted for a fall and sepsis who was found to have pneumonia and a urinary tract infection at that time. He has a past medical history of GI bleed, hypertension, delirious stones, acute cholecystitis, pancreatitis, renal disease, neurologic disorder, alcoholism, previous history of staphylococcal pneumonia and respiratory requiring mechanical ventilation, dysphagia with PEG tube placement, hypothyroidism. He presents today after being discharged 2 days previously from his stay. He was sent to a rehabilitation facility. On the day of discharge he apparently had a central line of some sort in his right femoral area that was pulled. He states that at that time he began having pain in the area. He felt as though something wasn't right and it has continued to worsen which brought him back to the hospital today. He still complains of pain in his right groin and swelling. He denies any pain down his leg. He denies any chest pains or shortness of breath this time. He denies any fevers, chills, nausea or vomiting Past Medical History Past Medical History: GI Bleed, Hypertension, Neurologic Disorder, Pneumonia, Renal Disease Additional Past Medical History / Comment(s): Hx calculus of bile duct, acute cholecystitis, pancreatitis. History of Any Multi-Drug Resistant Organisms: None Reported Past Surgical History: Orthopedic Surgery Additional Past Surgical History / Comment(s): cervical surgery, bilateral cataract removal with lens implants, umbilical hernia as a baby, bile duct stent, ERCP, C3-6 plate Past Anesthesia/Blood Transfusion Reactions: No Reported Reaction Past Psychological History: No Psychological Hx Reported Smoking Status: Former smoker Past Alcohol Use History: Occasional Past Drug Use History: None Reported - Past Family History Father Family Medical History: Cancer Additional Family Medical History / Comment(s): Melanoma Mother Family Medical History: Cancer Additional Family Medical History / Comment(s): Breast cancer. Medications and Allergies Home Medications Medication Instructions Recorded Confirmed Type amLODIPine BESYLATE [Norvasc] 10 mg PEG/G-TUBE DAILY 06/29/18 10/19/18 History Ipratropium-Albuterol Nebulize 3 ml INHALATION RT-QID ampul.neb 07/24/18 10/19/18 Rx [Duoneb 0.5 mg-3 mg/3 ml Soln] Acetaminophen Tab [Tylenol] 650 mg PEG/G-TUBE Q6H PRN 08/31/18 10/19/18 History Ergocalciferol (Vitamin D2) 66,000 unit PEG/G-TUBE TH 08/31/18 10/19/18 History [Ergocalciferol] Magnesium Oxide [Mag-Ox] 400 mg PEG/G-TUBE DAILY 08/31/18 10/19/18 History Epoetin Von [Procrit] 4,000 unit IJ MOWEFR 10/06/18 10/19/18 History Amoxicillin/Potassium Clav 1 tab PEG/G-TUBE Q12HR 10/19/18 10/19/18 History [Augmentin 875-125 Tablet] Aspirin 81 mg PEG/G-TUBE DAILY 10/19/18 10/19/18 History Atorvastatin [Lipitor] 20 mg PEG/G-TUBE HS 10/19/18 10/19/18 History Ferrous Sulfate [Feosol] 325 mg PEG/G-TUBE DAILY 10/19/18 10/19/18 History Levothyroxine Sodium [Synthroid] 25 mcg PEG/G-TUBE DAILY 10/19/18 10/19/18 History Metoprolol Tartrate [Lopressor] 50 mg PEG/G-TUBE BID 10/19/18 10/19/18 History Omeprazole [PriLOSEC] 20 mg PEG/G-TUBE AC-BID 10/19/18 10/19/18 History Psyllium Husk 100% [Metamucil 6 gm PEG/G-TUBE BID 10/19/18 10/19/18 History Packet] Sodium Bicarbonate Tab 650 mg PEG/G-TUBE BID 10/19/18 10/19/18 History Allergies Allergy/AdvReac Type Severity Reaction Status Date / Time No Known Allergies Allergy Verified 10/19/18 08:26 Surgical - Exam Vital Signs Temp Pulse Resp BP Pulse Ox 98.6 F 72 17 129/75 94 L 10/19/18 08:02 10/19/18 08:02 10/19/18 08:02 10/19/18 08:02 10/19/18 08:02 Gen. is an ill-appearing male, older than stated age HEENT is normocephalic or is a scar on the right cheek from previous skin grafting Heart is regular at this time, no murmurs appreciated Lungs are clear eye laterally, no respiratory distress, normal excursion, no wheezes, rales, rhonchi Abdomen is soft. There is a PEG tube in the left upper quadrant. Appropriate scarring from previous surgeries. Extremities: The right groin has a large area pulsatile mass that is tender to palpation. The left groin has a palpable femoral pulse. The bilateral lower extremities are warm and dry. No palpable pedal pulses. Psych flattened affect, mood is irritated Skin no wounds or rashes Results - Labs 10/19/18 08:22 10/19/18 08:22 Abnormal Lab Results - Last 24 Hours (Table) 10/19/18 10/19/18 Range/Units 08:22 08:22 WBC 17.4 H (3.8-10.6) k/uL RBC 2.56 L (4.30-5.90) m/uL Hgb 7.5 L (13.0-17.5) gm/dL Hct 23.8 L (39.0-53.0) % RDW 25.7 H (11.5-15.5) % Neutrophils # 15.6 H (1.3-7.7) k/uL BUN 50 H (9-20) mg/dL Creatinine 2.03 H (0.66-1.25) mg/dL Glucose 131 H (74-99) mg/dL Calcium 7.4 L (8.4-10.2) mg/dL Total Protein 5.0 L (6.3-8.2) g/dL Albumin 2.3 L (3.5-5.0) g/dL Diabetes panel 10/19/18 Range/Units 08:22 Sodium 140 (137-145) mmol/L Potassium 3.6 (3.5-5.1) mmol/L Chloride 107 (98-107) mmol/L Carbon Dioxide 26 (22-30) mmol/L BUN 50 H (9-20) mg/dL Creatinine 2.03 H (0.66-1.25) mg/dL Glucose 131 H (74-99) mg/dL Calcium 7.4 L (8.4-10.2) mg/dL AST 24 (17-59) U/L ALT 29 (21-72) U/L Alkaline Phosphatase 74 (38-126) U/L Total Protein 5.0 L (6.3-8.2) g/dL Albumin 2.3 L (3.5-5.0) g/dL Calcium panel 10/19/18 Range/Units 08:22 Calcium 7.4 L (8.4-10.2) mg/dL Albumin 2.3 L (3.5-5.0) g/dL Pituitary panel 10/19/18 Range/Units 08:22 Sodium 140 (137-145) mmol/L Potassium 3.6 (3.5-5.1) mmol/L Chloride 107 (98-107) mmol/L Carbon Dioxide 26 (22-30) mmol/L BUN 50 H (9-20) mg/dL Creatinine 2.03 H (0.66-1.25) mg/dL Glucose 131 H (74-99) mg/dL Calcium 7.4 L (8.4-10.2) mg/dL Adrenal panel 10/19/18 Range/Units 08:22 Sodium 140 (137-145) mmol/L Potassium 3.6 (3.5-5.1) mmol/L Chloride 107 (98-107) mmol/L Carbon Dioxide 26 (22-30) mmol/L BUN 50 H (9-20) mg/dL Creatinine 2.03 H (0.66-1.25) mg/dL Glucose 131 H (74-99) mg/dL Calcium 7.4 L (8.4-10.2) mg/dL Total Bilirubin 0.3 (0.2-1.3) mg/dL AST 24 (17-59) U/L ALT 29 (21-72) U/L Alkaline Phosphatase 74 (38-126) U/L Total Protein 5.0 L (6.3-8.2) g/dL Albumin 2.3 L (3.5-5.0) g/dL - Imaging Additional studies: Right lower extremity ultrasound is reviewed revealing 2 and fro flow of an area off the common femoral artery with a question of a neck. Inability to completely distinguish. The area measures approximately 6 cm Assessment and Plan Assessment: Right femoral artery pseudoaneurysm Chronic kidney disease, stage III Likely some degree of acute kidney injury Recent hospital admission for sepsis Hypertension History of alcohol abuse Hypothyroidism Chronic respiratory insufficiency, histories of pneumonia, currently on oxygen per nasal cannula Plan: At this point given the size and location of the pseudoaneurysm the patient would most benefit from surgical intervention rather than a thrombin injection. We will plan taken to the operating room this afternoon. He has been nothing by mouth since arrival here at this hospital. He will be given IV fluids and will be typed and crossed for 2 blood. Long discussion was had with him regarding the possibility of remaining intubated following surgery given his multiple medical comorbidities and previous recent intubation/pneumonia. Risks and b enefits regarding the surgery were discussed with the patient including but not limited to bleeding, infection, loss of limb, loss of life, prolonged recovery. He seemingly understands and wishes to proceed. Time with Patient: Greater than 30
[2018-10-19] MEDS ORDERED: IV FLUID CONTINUATION 1,000 ML IV ONE (16:11)
[2018-10-19] MEDS ORDERED: MORPHINE SULFATE 4 MG/ML SYRINGE IVP ONE (16:49)
[2018-10-19] MEDS ORDERED: MIDAZOLAM 2 MG/2 ML VIAL ONE (17:45)
[2018-10-19] MEDS ORDERED: NEOSTIGMINE 1 MG/ML 10 ML VIAL ONE (17:45)
[2018-10-19] MEDS ORDERED: PHENYLEPHRINE-0.9% NACL SYG 1 MG/10 ML SYRINGE ONE (17:45)
[2018-10-19] MEDS ORDERED: ROCURONIUM BROMIDE 10 MG/ML 10 ML VIAL IV ONE (17:45)
[2018-10-19] MEDS ORDERED: PROPOFOL 10 MG/ML 20 ML VIAL IV ONE (17:45)
[2018-10-19] MEDS ORDERED: fentaNYL (PF) 50 MCG/ML 2 ML AMP ONE (17:45)
[2018-10-19] MEDS ORDERED: LIDOCAINE 1% INJ 10MG/ML (20 ML MDV) ONE (17:45)
[2018-10-19] MEDS ORDERED: GLYCOPYRROLATE 0.2 MG/ML 2 ML VIAL ONE (17:45)
[2018-10-19] MEDS ORDERED: SUCCINYLCHOLINE CHLORIDE 100 MG/5 ML SYR IV ONE (17:45)
[2018-10-19] MEDS ORDERED: ACETAMINOPHEN TAB 325 MG TAB PEG/G-TUBE PRN (17:50)
[2018-10-19] MEDS ORDERED: ceFAZolin 1,000 MG VIAL IVPB ONE (18:29)
[2018-10-19] MEDS ORDERED: LACTATED RINGERS 1,000 ML IV ONE (18:37)
--- NOTE | 2018-10-19 19:32 | P.OP ---
Description of Procedure: Preoperative diagnosis: Right femoral artery pseudoaneurysm Postoperative diagnosis: Same, right femoral artery and vein puncture sites with active bleeding Procedure: Right right groin exploration, control of hemorrhage. Repair of right femoral artery pseudoaneurysm. Repair of right femoral vein bleeding Surgeon: Marika Zhu D.O. Pulmonologist/Intensivist: Lai EBL:150 mL IVF: Per anesthesia records, patient received 2unit PRBC Drains: 19-Mozambican channel drain Complications: None Condition: Guarded but stable, extubated in the OR to PACU Operative indication and findings: The patient is a 68-year-old male who has a past medical history of GI bleed, chronic respiratory insufficiency with multiple episodes of pneumonia, hypothyroidism, hypertension, history of alcohol abuse. He was previously recently admitted for sepsis with findings of a UTI and pneumonia. He was discharged 2 days previously. He had a central line that had been placed in his right groin at the initiation of his visit in the ICU 76. It was removed 2 days ago on the same day of discharge. He began having increasing swelling and pain at his right groin site. He was found to have a right femoral pseudoaneurysm on ultrasound imaging with a large hematoma. Upon reevaluation in the preoperative area of the hematoma had grown significantly in size Procedure in detail: The patient was taken to the operative suite and placed in supine position. Bilateral groins prepped and draped in usual sterile fashion. A preprocedure timeout was performed and all parties are in agreement. A vertical incision was made in theright groin with the scalpel, Going through the previous puncture site. It was deepened through subcutaneous tissues with blunt dissection. There was so much surrounding hematoma that the tissues were widely dissected. There was significant hematoma all the way down to the level of the scrotum and into the quadriceps muscles. Rapid blunt dissection was carried down to the level of the femoral artery and the bleeding was controlled with digital pressure. A suture of 6-0 Prolene was placed in the neck of the pseudoaneurysm. At that point further dissection was carried out to ensure no further area of pseudoaneurysm. A reinforcement suture was placed at the proper level of the arterial wall. At that point attention was turned towards the venous bleeding. It was identified and a 6-0 Prolene was utilized for repair. The area was then copiously irrigated. Hydrogen peroxide was placed. There was no further evidence of active bleeding. A 19-Mozambican channel drain was placed and sutured through the skin with 3-0 nylon. 3-0 Vicryl was utilized to close off some of the subcu tissues. The skin was reprepped and with interrupted vertical mattress sutures of 3-0 nylon. Dressing was placed. The patient was awakened from surgery, extubated and transferred to PACU in stable condition.
[2018-10-19 19:56] LABS: Anisocytosis Moderate; HCT 31.8 % (39.0-53.0); Hypochromasia Marked; MCH 29.8 pg (25.0-35.0); MCHC 31.1 g/dL (31.0-37.0); MCV 95.9 fL (80.0-100.0); Macrocytosis Slight; Mean Platelet Volume 8.8; Platelet Count 143 k/uL (150-450); Poikilocytosis Slight; RBC 3.31 m/uL (4.30-5.90); RDW 20.1 % (11.5-15.5); WBC 16.4 k/uL (3.8-10.6)
[2018-10-19 20:13] LABS: HGB 9.9 gm/dL (13.0-17.5)
[2018-10-19] MEDS: IPRATROPIUM-ALBUTEROL 3 ML NEB INHALATION SCH (20:50)
[2018-10-19] MEDS: SODIUM BICARBONATE TAB 650 MG TAB PEG/G-TUBE SCH (21:22)
[2018-10-19] MEDS: PSYLLIUM HUSK 100% 6 GM PACKET PO SCH ×2 (21:22→21:35)
[2018-10-19] MEDS: AMOXIC-POT CLAV 875-125MG 1 EACH TAB PEG/G-TUBE SCH (21:22)
[2018-10-19] MEDS: ATORVASTATIN 20 MG TAB PEG/G-TUBE SCH (21:22)
[2018-10-19] MEDS: METOPROLOL TARTRATE 50 MG TAB PEG/G-TUBE SCH (21:22)
[2018-10-19] MEDS: DARBEPOETIN ALFA 40 MCG/0.4 ML SYRINGE SQ SCH (22:14)
--- NOTE | 2018-10-19 23:48 | P.HPIM ---
History of Present Illness H&P Date: 10/19/18 Chief Complaint: Pain in the right groin History of presenting complaint: This is a 68-year-old patient who was just discharged from the hospital on October 17 following admission for aspiration pneumonia. Patient was here in August of this year. Had a rather prolonged admission. Was then treated for pneumonia and metabolic encephalopathy. Patient was on the ventilator. Patient also was found to be esophagitis, had a septic shock, and also had acute tubular necrosis. Patient also GI bleed with multiple blood transfusions. No source of bleeding was found. Patient also had thoracentesis for pleural effusion. PEG tube was placed. About a month ago patient was here for UTI and cystitis. On the last admission patient is found unresponsive at home. Found to have both aspiration pneumonia and possible UTI. Patient had to be intubated. On the last admission patient failed his swallowing exam. Has 2 feeding was being done. Patient had an IV access to the right groin. Patient at the [facility] complaint of pain in the right groin that was progressive. Admitted for the same. Found to have a pseudoaneurysm of the right femoral artery. Patient stated to the OR today by vascular surgery. Patient did require 3 units of blood afterwards. Laying in bed with a dressing in place. Tired. Patient was extubated early. Review of systems: GEN.: Tired EYES: None HEENT: None NECK: None RESPIRATORY: Baseline some shortness of breath CARDIOVASCULAR: None GASTROINTESTINAL: None GENITOURINARY: None MUSCULOSKELETAL: Pain in the joints LYMPHATICS: None HEMATOLOGICAL: None PSYCHIATRY: Some anxiety NEUROLOGICAL: None Past medical history: Recurrent aspiration pneumonia, esophagitis, GI bleed with exact source unknown, PEG tube, UTI, Social history: Patient is currently at [facility]. Otherwise lives alone in a mobile home with 3 steps. Does use a cane sometimes a walker. Patient was drinking a fifth of whiskey a day up to 2013 that he contact his alcohol intake. Patient be smoking a pack a day for close to 40 years. Family history: Melanoma Physical examination: VITAL SIGNS: 97, 68, 16, 143/63, 100 perseverate liters GENERAL: BMI 19, laying in bed, tired appearing. EYES: Pupils equal. Conjunctiva normal. HEENT: External appearance of nose and ears normal, oral cavity dry. NECK: JVD not raised; masses not palpable. HEART: First and second heart sounds are normal; no edema. LUNGS: Respiratory rate normal; decreased breath sounds. ABDOMEN: [Soft, nontender, liver spleen not palpable, no masses palpable, dressing over the right groin., PEG tube in place PSYCH: Alert and oriented x3; mood and affect anxiousl. NEUROLOGICAL: Cranial nerves grossly intact; no facial asymmetry, power and sensation grossly intact. LYMPHATICS: No lymph nodes palpable in the axilla and neck Investigations: White count 17.4 hemoglobin's 7.5 postop crit was 9.9 after getting 3 units of blood Platelets 214, repeat 143 Potassium 3.6 BUN 50 creatinine 2.03 Ultrasound and earlier revealed a pseudoaneurysm of the right femoral artery Assessment: -Pseudoaneurysm of the right femoral artery, Ativan IV access site with blood leakage now surgically repaired -Acute blood loss anemia expected from surgery patient did require 3 units of blood --pneumonia suspected aspiration pneumonia, causing sepsis from staph aureus on admission, from last admission, continue antibiotics -Chronic esophagitis -PEG tube, chronic -Hypothyroid -Chronic kidney disease stage III from nephrosclerosis at baseline -Anemia of chronic kidney disease -Anemia from recent GI bleed exact source unknown -Acute renal failure from acute tubal necrosis from underlying sepsis, some i mprovement -Dysphagia, showed gross silent aspiration. By MBS. Patient to repeat swallowing exam down the road -Antibiotic associated diarrhea. Responded well to Metamucil Plan: Patient's home medications be continued through the PEG tube. Patient is to remain nothing by mouth otherwise. Follow H&H. Followed hemodynamically. Care was discussed with the patient. Patient was seen by vascular surgery. Past Medical History Past Medical History: GI Bleed, Hypertension, Neurologic Disorder, Pneumonia, Renal Disease Additional Past Medical History / Comment(s): Hx calculus of bile duct, acute cholecystitis, pancreatitis. History of Any Multi-Drug Resistant Organisms: None Reported Past Surgical History: Orthopedic Surgery Additional Past Surgical History / Comment(s): cervical surgery, bilateral cataract removal with lens implants, umbilical hernia as a baby, bile duct stent, ERCP, C3-6 plate Past Anesthesia/Blood Transfusion Reactions: No Reported Reaction Past Psychological History: No Psychological Hx Reported Additional Psychological History / Comment(s): Pt resides alone in a mobile home with 3 steps that lately have been difficult for him to navigate. He am bulates with a cane or walker. He does drives. He has helpful neighbors. Smoking Status: Former smoker Past Alcohol Use History: Occasional Additional Past Alcohol Use History / Comment(s): Started smoking at age 27, smokes about a ppd. Pt states in the past he drank a fifth of whiskey a day but in 2013 cut back to a drink a day and a few drinks on weekends. He drinks beer or vodka now. Past Drug Use History: None Reported - Past Family History Father Family Medical History: Cancer Additional Family Medical History / Comment(s): Melanoma Mother Family Medical History: Cancer Additional Family Medical History / Comment(s): Breast cancer. Medications and Allergies Home Medications Medication Instructions Recorded Confirmed Type amLODIPine BESYLATE [Norvasc] 10 mg PEG/G-TUBE DAILY 06/29/18 10/19/18 History Ipratropium-Albuterol Nebulize 3 ml INHALATION RT-QID ampul.neb 07/24/18 10/19/18 Rx [Duoneb 0.5 mg-3 mg/3 ml Soln] Acetaminophen Tab [Tylenol] 650 mg PEG/G-TUBE Q6H PRN 08/31/18 10/19/18 History Ergocalciferol (Vitamin D2) 66,000 unit PEG/G-TUBE TH 08/31/18 10/19/18 History [Ergocalciferol] Magnesium Oxide [Mag-Ox] 400 mg PEG/G-TUBE DAILY 08/31/18 10/19/18 History Epoetin Von [Procrit] 4,000 unit IJ MOWEFR 10/06/18 10/19/18 History Amoxicillin/Potassium Clav 1 tab PEG/G-TUBE Q12HR 10/19/18 10/19/18 History [Augmentin 875-125 Tablet] Aspirin 81 mg PEG/G-TUBE DAILY 10/19/18 10/19/18 History Atorvastatin [Lipitor] 20 mg PEG/G-TUBE HS 10/19/18 10/19/18 History Ferrous Sulfate [Feosol] 325 mg PEG/G-TUBE DAILY 10/19/18 10/19/18 History Levothyroxine Sodium [Synthroid] 25 mcg PEG/G-TUBE DAILY 10/19/18 10/19/18 History Metoprolol Tartrate [Lopressor] 50 mg PEG/G-TUBE BID 10/19/18 10/19/18 History Omeprazole [PriLOSEC] 20 mg PEG/G-TUBE AC-BID 10/19/18 10/19/18 History Psyllium Husk 100% [Metamucil 6 gm PEG/G-TUBE BID 10/19/18 10/19/18 History Packet] Sodium Bicarbonate Tab 650 mg PEG/G-TUBE BID 10/19/18 10/19/18 History Allergies Allergy/AdvReac Type Severity Reaction Status Date / Time No Known Allergies Allergy Verified 10/19/18 08:26 Physical Exam Vitals: Vital Signs Temp Pulse Pulse Pulse Resp BP BP 10/19/18 22:00 58 L 8 L 137/69 10/19/18 21:00 96.6 F L 60 11 L 138/68 10/19/18 20:58 58 L 10/19/18 20:50 60 10/19/18 20:15 56 L 16 10/19/18 20:01 56 L 16 10/19/18 19:41 55 L 16 10/19/18 19:31 56 L 16 10/19/18 19:19 97 F L 68 16 10/19/18 17:42 97.4 F L 85 16 134/69 10/19/18 17:32 98.4 F 10/19/18 17:22 84 16 134/69 10/19/18 17:02 97.8 F 83 16 130/67 10/19/18 16:30 98.0 F 85 16 134/69 10/19/18 16:04 97.2 F L 86 86 16 144/69 10/19/18 16:00 97.6 F 94 16 123/69 10/19/18 15:37 97.6 F 94 16 123/69 10/19/18 15:34 97.4 F L 90 16 118/74 10/19/18 15:24 97.6 F 94 16 165/69 10/19/18 14:40 87 17 112/61 10/19/18 08:02 98.6 F 72 17 129/75 BP Pulse Ox 10/19/18 22:00 94 L 10/19/18 21:00 100 10/19/18 20:58 10/19/18 20:50 10/19/18 20:15 139/67 100 10/19/18 20:01 132/67 100 10/19/18 19:41 133/71 100 10/19/18 19:31 131/63 100 10/19/18 19:19 143/63 100 10/19/18 17:42 98 10/19/18 17:32 10/19/18 17:22 99 10/19/18 17:02 98 10/19/18 16:30 98 10/19/18 16:04 144/69 98 10/19/18 16:00 98 10/19/18 15:37 98 10/19/18 15:34 97 10/19/18 15:24 98 10/19/18 14:40 96 10/19/18 08:02 94 L Intake and Output 10/19/18 10/19/18 10/20/18 14:59 22:59 06:59 Intake Total 2130 Output Total 250 Balance 1880 Intake: IV 1200 Blood Product 930 Rc As-1 Unit 310 [id number] Rc As-1 Unit 310 [id number] Rc As-1 Unit 310 [id number] Output: Urine 100 Estimated Blood Loss 150 Other: Voiding Method Indwelling Catheter Weight 56.699 kg Results CBC & Chem 7: 10/19/18 19:42 10/19/18 08:22 Labs: Abnormal Lab Results - Last 24 Hours (Table) 10/19/18 10/19/18 10/19/18 Range/Units 08:22 08:22 13:13 WBC 17.4 H (3.8-10.6) k/uL RBC 2.56 L (4.30-5.90) m/uL Hgb 7.5 L (13.0-17.5) gm/dL Hct 23.8 L (39.0-53.0) % RDW 25.7 H (11.5-15.5) % Plt Count (150-450) k/uL Neutrophils # 15.6 H (1.3-7.7) k/uL BUN 50 H (9-20) mg/dL Creatinine 2.03 H (0.66-1.25) mg/dL Glucose 131 H (74-99) mg/dL Calcium 7.4 L (8.4-10.2) mg/dL Total Protein 5.0 L (6.3-8.2) g/dL Albumin 2.3 L (3.5-5.0) g/dL Crossmatch See Detail 10/19/18 Range/Units 19:42 WBC 16.4 H (3.8-10.6) k/uL RBC 3.31 L (4.30-5.90) m/uL Hgb 9.9 L D (13.0-17.5) gm/dL Hct 31.8 L (39.0-53.0) % RDW 20.1 H (11.5-15.5) % Plt Count 143 L (150-450) k/uL Neutrophils # (1.3-7.7) k/uL BUN (9-20) mg/dL Creatinine (0.66-1.25) mg/dL Glucose (74-99) mg/dL Calcium (8.4-10.2) mg/dL Total Protein (6.3-8.2) g/dL Albumin (3.5-5.0) g/dL Crossmatch Thrombosis Risk Factor Assmnt - Choose All That Apply Each Factor Represents 1 point: Sepsis (< 1month) Each Risk Factor Represents 2 Points: Age 61-74 years Thrombosis Risk Factor Assessment Total Risk Factor Score: 3 Thrombosis Risk Factor Assessment Level: Moderate Risk
[2018-10-20 05:41] LABS: Anisocytosis Moderate; Basophils % (A) 0 %; Eosinophils # (A) 0.3 k/uL (0-0.7); Eosinophils % (A) 2 %; HCT 27.8 % (39.0-53.0); HGB 8.9 gm/dL (13.0-17.5); Hypochromasia Marked; Lymphocytes % (A) 8 %; MCH 29.6 pg (25.0-35.0); MCV 92.5 fL (80.0-100.0); Macrocytosis Slight; Mean Platelet Volume 8.7; Monocytes # (A) 0.4 k/uL (0-1.0); Monocytes % (A) 3 %; Neutrophils # (A) 11.5 k/uL (1.3-7.7); Neutrophils % (A) 86 %; Platelet Count 153 k/uL (150-450); Poikilocytosis Slight; RBC 3.01 m/uL (4.30-5.90); RDW 21.3 % (11.5-15.5); WBC 13.3 k/uL (3.8-10.6)
[2018-10-20 05:50] LABS: Calcium 7.1 mg/dL (8.4-10.2); Potassium 3.6 mmol/L (3.5-5.1)
[2018-10-20] MEDS: PANTOPRAZOLE SODIUM 40 MG GRANULE PKT PEG/G-TUBE SCH ×2 (06:46→17:02)
[2018-10-20] MEDS: SODIUM CHLORIDE 0.9% 1,000 ML IV SCH ×2 (06:48→17:02)
[2018-10-20] MEDS: IPRATROPIUM-ALBUTEROL 3 ML NEB INHALATION SCH ×4 (07:33→20:21)
[2018-10-20] MEDS ORDERED: CALCIUM CARBONATE LIQUID 500 MG/5 ML CUP PO PRN (09:29)
[2018-10-20] MEDS: AMOXIC-POT CLAV 875-125MG 1 EACH TAB PEG/G-TUBE SCH ×2 (09:39→20:18)
[2018-10-20] MEDS: amLODIPine 10 MG TAB PEG/G-TUBE SCH (09:39)
[2018-10-20] MEDS: FERROUS SULFATE 325 MG TAB PO SCH (09:39)
[2018-10-20] MEDS: LEVOTHYROXINE 25 MCG TAB PEG/G-TUBE SCH (09:39)
[2018-10-20] MEDS: ASPIRIN 81 MG PEG/G-TUBE SCH (09:39)
[2018-10-20] MEDS: PSYLLIUM HUSK 100% 6 GM PACKET PO SCH ×2 (09:39→20:19)
[2018-10-20] MEDS: SODIUM BICARBONATE TAB 650 MG TAB PEG/G-TUBE SCH ×2 (09:39→20:18)
[2018-10-20] MEDS: METOPROLOL TARTRATE 50 MG TAB PEG/G-TUBE SCH ×2 (09:39→20:18)
[2018-10-20] MEDS: MAGNESIUM OXIDE 400 MG TAB PEG/G-TUBE SCH (09:39)
--- NOTE | 2018-10-20 10:11 | P.PN ---
Subjective Progress Note Date: 10/20/18 Principal diagnosis: Right femoral pseudoaneurysm 68-year-old gentleman status post right groin exploration with femoral artery and vein repair was seen and examined at the bedside. Patient states he is having discomfort in his right groin but it is slightly improved since surgery. He denies any numbness or tingling in his feet. Per the nursing staff he has had 80 mL of serosanguineous drainage from his ALBERT drain. He denies any fevers, chills, chest pain or shortness of breath. Overall he states feeling okay. Objective - Vital Signs Vital signs: Vital Signs Temp 97.6 F 10/20/18 08:00 Pulse 91 10/20/18 10:00 Resp 22 10/20/18 10:00 BP 133/69 10/20/18 10:00 Pulse Ox 94 L 10/20/18 10:00 Intake & Output 10/19/18 10/20/18 10/20/18 18:59 06:59 18:59 Intake Total 1820 1360 300 Output Total 925 200 Balance 1820 435 100 Weight 56.699 kg 60.1 kg Intake: IV 1200 0 300 Sodium Chloride 0.9% 1, 300 000 ml @ 100 mls/hr IV . Q10H ANTHONY Rx#:[id number] Intake, IV Titration 1050 Amount Sodium Chloride 0.9% 1, 1050 000 ml @ 100 mls/hr IV . Q10H ANTHONY Rx#:[id number] Blood Product 620 310 Rc As-1 Unit 310 [id number] Rc As-1 Unit 310 [id number] Rc As-1 Unit 310 [id number] Output: Drainage 40 Right Groin 40 Urine 735 200 Estimated Blood Loss 150 Other: Voiding Method Indwelling Catheter Indwelling Catheter - Exam NAD, A&Ox3 Right groin is soft without any expanding hematoma. ALBERT drain is in place with serosanguineous drainage. There is tenderness to palpation over incision extending down to the medial thigh. No fluctuance noted. Patient has palpable PT pulses. - Labs CBC & Chem 7: 10/20/18 05:21 10/20/18 05:21 Labs: Abnormal Lab Results - Last 24 Hours (Table) 10/19/18 10/19/18 10/19/18 Range/Units 08:22 13:13 19:42 WBC 17.4 H 16.4 H (3.8-10.6) k/uL RBC 2.56 L 3.31 L (4.30-5.90) m/uL Hgb 7.5 L 9.9 L D (13.0-17.5) gm/dL Hct 23.8 L 31.8 L (39.0-53.0) % RDW 25.7 H 20.1 H (11.5-15.5) % Plt Count 143 L (150-450) k/uL Neutrophils # 15.6 H (1.3-7.7) k/uL Chloride (98-107) mmol/L BUN (9-20) mg/dL Creatinine (0.66-1.25) mg/dL Calcium (8.4-10.2) mg/dL Crossmatch See Detail 10/20/18 10/20/18 Range/Units 05:21 05:21 WBC 13.3 H (3.8-10.6) k/uL RBC 3.01 L (4.30-5.90) m/uL Hgb 8.9 L (13.0-17.5) gm/dL Hct 27.8 L (39.0-53.0) % RDW 21.3 H (11.5-15.5) % Plt Count (150-450) k/uL Neutrophils # 11.5 H (1.3-7.7) k/uL Chloride 112 H (98-107) mmol/L BUN 44 H (9-20) mg/dL Creatinine 1.89 H (0.66-1.25) mg/dL Calcium 7.1 L (8.4-10.2) mg/dL Crossmatch Assessment and Plan Assessment: POD #1 right femoral artery repair Right femoral artery pseudoaneurysm Chronic kidney disease, stage III Recent hospital admission for sepsis Hypertension History of alcohol abuse Hypothyroidism Chronic respiratory insufficiency, histories of pneumonia, currently on oxygen per nasal cannula Plan: Continue ALBERT drain to bulb suction. Okay to transfer to the telemetry floor. Continue pain management. Increase activity, patient is okay to ambulate with assistance. PT to eval. Monitor hemoglobin.
--- NOTE | 2018-10-20 13:06 | P.PN ---
Progress Note - Text Progress Note Date: 10/20/18 Chief Complaint: Pain in the right groin Interval history: This is a 68-year-old patient who was just discharged from the hospital on October 17 following admission for aspiration pneumonia. Patient was here in August of this year. Had a rather prolonged admission. Was then treated for pneumonia and metabolic encephalopathy. Patient was on the ventilator. Patient also was found to be esophagitis, had a septic shock, and also had acute tubular necrosis. Patient also GI bleed with multiple blood transfusions. No source of bleeding was found. Patient also had thoracentesis for pleural effusion. PEG tube was placed. About a month ago patient was here for UTI and cystitis. On the last admission patient is found unresponsive at home. Found to have both aspiration pneumonia and possible UTI. Patient had to be intubated. On the last admission patient failed his swallowing exam. Has 2 feeding was being done. Patient had an IV access to the right groin. Patient at the [facility] complaint of pain in the right groin that was progressive. Admitted for the same. Found to have a pseudoaneurysm of the right femoral artery. Patient received 3 units of blood. Was extubated. Status post repair of the pseudoaneurysm. Today-laying in bed. Awake. Getting 2 feeding. Some pain at the operative site. Patient remains nothing by mouth.. Review of systems: Was done for constitutional, cardiovascular, GI, pulmonary. relevant finding as above Active Medications Acetaminophen (Tylenol Tab) 650 mg PEG/G-TUBE Q6H PRN PRN Reason: Fever and/ or Pain Last Admin: 10/20/18 09:55 Dose: 650 mg Documented by: Albuterol/Ipratropium (Duoneb 0.5 Mg-3 Mg/3 Ml Soln) 3 ml INHALATION RT-QID [facility] Last Admin: 10/20/18 11:22 Dose: 3 ml Documented by: Amlodipine Besylate (Norvasc) 10 mg PEG/G-TUBE DAILY [facility] Last Admin: 10/20/18 09:39 Dose: 10 mg Documented by: Amoxicillin/Clavulanate Potassium (Augmentin 875-125) 1 each PEG/G-TUBE Q12HR [facility] Stop: 10/25/18 21:01 Last Admin: 10/20/18 09:39 Dose: 1 each Documented by: Aspirin (Aspirin) 81 mg PEG/G-TUBE DAILY [facility] Last Admin: 10/20/18 09:39 Dose: 81 mg Documented by: Atorvastatin Calcium (Lipitor) 20 mg PEG/G-TUBE HS [facility] Last Admin: 10/19/18 21:22 Dose: 20 mg Documented by: Calcium Carbonate/Glycine (Tums Liquid) 500 mg PO TID-W/MEALS PRN PRN Reason: GI Upset Last Admin: 10/20/18 10:59 Dose: 500 mg Documented by: Darbepoetin Von (Aranesp) 40 mcg SQ Q7D [facility] Last Admin: 10/19/18 22:14 Dose: 40 mcg Documented by: Ferrous Sulfate (Feosol) 325 mg PO DAILY [facility] Last Admin: 10/20/18 09:39 Dose: 325 mg Documented by: Hydromorphone HCl (Dilaudid) 0.5 mg IVP Q3HR PRN PRN Reason: Moderate Pain Sodium Chloride (Saline 0.9%) 1,000 mls @ 100 mls/hr IV .Q10H [facility] Last Admin: 10/20/18 06:48 Dose: 100 mls/hr Documented by: Levothyroxine Sodium (Synthroid) 25 mcg PEG/G-TUBE DAILY [facility] Last Admin: 10/20/18 09:39 Dose: 25 mcg Documented by: Magnesium Oxide (Mag-Ox) 400 mg PEG/G-TUBE DAILY [facility] Last Admin: 10/20/18 09:39 Dose: 400 mg Documented by: Metoprolol Tartrate (Lopressor) 50 mg PEG/G-TUBE BID [facility] Last Admin: 10/20/18 09:39 Dose: 50 mg Documented by: Naloxone HCl (Narcan) 0.2 mg IV Q2M PRN PRN Reason: Opioid Reversal Pantoprazole Sodium (Protonix) 20 mg PEG/G-TUBE AC-BID [facility] Last Admin: 10/20/18 06:46 Dose: 20 mg Documented by: Psyllium Hydrophilic Mucilloid (Metamucil) 6 gm PO BID [facility] Last Admin: 10/20/18 09:39 Dose: Not Given Documented by: Sodium Bicarbonate (Sodium Bicarbonate Tab) 650 mg PEG/G-TUBE BID [facility] Last Admin: 10/20/18 09:39 Dose: 650 mg Documented by: Physical examination: VITAL SIGNS: 97.6, 87, 12, 143/70, 95% room air GENERAL: laying in bed, awake. EYES: Pupils equal. Conjunctiva pale HEENT: External appearance of nose and ears normal, oral cavity dry. NECK: JVD not raised; masses not palpable. HEART: First and second heart sounds are normal; no edema. LUNGS: Respiratory rate normal; decreased breath sounds. ABDOMEN: [Soft, nontender, liver spleen not palpable, no masses palpable, dressing over the right groin., PEG tube in place PSYCH: Alert and oriented x3; mood and affect anxiousl. Investigations: white count 3.3 hemoglobin 8.9 platelets 153 Potassium 3.6 BUN 44 creatinine 1.89 Ultrasound and earlier revealed a pseudoaneurysm of the right femoral artery Assessment: -Pseudoaneurysm of the right femoral arteryat IV access site with blood leakage now surgically repaired -Acute blood loss anemia Sexpected from surgery patient did require 3 units of blood --pneumonia suspected aspiration pneumonia, causing sepsis from staph aureus , from last admission, continue antibiotics -Chronic esophagitis -PEG tube, chronic -Hypothyroid -Chronic kidney disease stage III from nephrosclerosis at baseline -Anemia of chronic kidney disease -Anemia from recent GI bleed exact source unknown -Acute renal failure from acute tubal necrosis from underlying sepsis, some improvement -Dysphagia, showed gross silent aspiration. By MBS. Patient to repeat swallowi ng exam down the road -Antibiotic associated diarrhea, on last admission. Responded well to Metamucil Plan: care was discussed with the patient. Continue current medication treatment plan. Repeat labs in the morning. Patient is medically stable to be transferred out of the ICU.
[2018-10-20] MEDS: HYDROmorphone 0.5 MG/0.5 ML SYRINGE IVP PRN ×2 (15:54→20:13)
[2018-10-20] MEDS: ATORVASTATIN 20 MG TAB PEG/G-TUBE SCH (20:18)
[2018-10-21] MEDS: HYDROmorphone 0.5 MG/0.5 ML SYRINGE IVP PRN ×4 (02:30→19:59)
[2018-10-21] MEDS: SODIUM CHLORIDE 0.9% 1,000 ML IV SCH ×2 (02:31→13:02)
[2018-10-21 04:58] LABS: Anisocytosis Moderate; Basophils % (A) 0 %; Eosinophils # (A) 0.3 k/uL (0-0.7); Eosinophils % (A) 3 %; HCT 25.2 % (39.0-53.0); HGB 7.9 gm/dL (13.0-17.5); Hypochromasia Marked; Lymphocytes % (A) 8 %; MCH 29.2 pg (25.0-35.0); MCHC 31.3 g/dL (31.0-37.0); MCV 93.4 fL (80.0-100.0); Macrocytosis Slight; Mean Platelet Volume 8.6; Monocytes # (A) 0.5 k/uL (0-1.0); Monocytes % (A) 4 %; Neutrophils # (A) 10.1 k/uL (1.3-7.7); Neutrophils % (A) 84 %; Platelet Count 184 k/uL (150-450); Poikilocytosis Slight; RBC 2.69 m/uL (4.30-5.90); RDW 22.2 % (11.5-15.5); WBC 12.1 k/uL (3.8-10.6)
[2018-10-21] MEDS: IPRATROPIUM-ALBUTEROL 3 ML NEB INHALATION SCH ×4 (07:22→20:16)
[2018-10-21] MEDS: PANTOPRAZOLE SODIUM 40 MG GRANULE PKT PEG/G-TUBE SCH ×2 (08:19→16:33)
[2018-10-21] MEDS: amLODIPine 10 MG TAB PEG/G-TUBE SCH (08:20)
[2018-10-21] MEDS: PSYLLIUM HUSK 100% 6 GM PACKET PO SCH ×2 (08:20→19:46)
[2018-10-21] MEDS: ASPIRIN 81 MG PEG/G-TUBE SCH (08:20)
[2018-10-21] MEDS: FERROUS SULFATE 325 MG TAB PO SCH (08:20)
[2018-10-21] MEDS: SODIUM BICARBONATE TAB 650 MG TAB PEG/G-TUBE SCH ×2 (08:20→19:51)
[2018-10-21] MEDS: LEVOTHYROXINE 25 MCG TAB PEG/G-TUBE SCH (08:20)
[2018-10-21] MEDS: AMOXIC-POT CLAV 875-125MG 1 EACH TAB PEG/G-TUBE SCH ×2 (08:20→19:51)
[2018-10-21] MEDS: MAGNESIUM OXIDE 400 MG TAB PEG/G-TUBE SCH (08:21)
[2018-10-21] MEDS: METOPROLOL TARTRATE 50 MG TAB PEG/G-TUBE SCH (08:23)
--- NOTE | 2018-10-21 09:51 | P.CRDCN ---
History of Present Illness Consult date: 10/21/18 History of present illness: This is a 68-year-old gentleman with history of hypertension who was in the hospital recently after fall and pneumonia and sepsis. He was treated with the antibiotics and had a IV line in the groi, through the femoral vein. Apparently was a group home and when the venous sheath was pulled out. Patient developed a hematoma and also pseudoaneurysm. Apparently the central line went to the artery into the vein. Patient had repair done yesterday. We're asked to see the patient today because of cardiac arrhythmias. It appears that patient was having frequent APCs and short runs of SVT. Patient also had one brief episode of wide-complex tachycardia. Patient seemed to be asymptomatic. Patient had similar arrhythmias during previous admission. Echo Cardigan amended the time showed normal LV function. Patient doesn't have any history of ischemic heart disease. I'm going to increase the dose of the beta susanna and continue to monitor him. No need for anticoagulation at this time Review of Systems As per the chart Past Medical History Past Medical History: GI Bleed, Hypertension, Neurologic Disorder, Pneumonia, Renal Disease Additional Past Medical History / Comment(s): Hx calculus of bile duct, acute cholecystitis, pancreatitis. History of Any Multi-Drug Resistant Organisms: None Reported Past Surgical History: Orthopedic Surgery Additional Past Surgical History / Comment(s): cervical surgery, bilateral cataract removal with lens implants, umbilical hernia as a baby, bile duct stent, ERCP, C3-6 plate Past Anesthesia/Blood Transfusion Reactions: No Reported Reaction Past Psychological History: No Psychological Hx Reported Additional Psychological History / Comment(s): Pt resides alone in a mobile home with 3 steps that lately have been difficult for him to navigate. He ambulates with a cane or walker. He does drives. He has helpful neighbors. Smoking Status: Former smoker Past Alcohol Use History: Occasional Additional Past Alcohol Use History / Comment(s): Started smoking at age 27, smokes about a ppd. Pt states in the past he drank a fifth of whiskey a day but in 2013 cut back to a drink a day and a few drinks on weekends. He drinks beer or vodka now. Past Drug Use History: None Reported - Past Family History Father Family Medical History: Cancer Additional Family Medical History / Comment(s): Melanoma Mother Family Medical History: Cancer Additional Family Medical History / Comment(s): Breast cancer. Medications and Allergies Home Medications Medication Instructions Recorded Confirmed Type amLODIPine BESYLATE [Norvasc] 10 mg PEG/G-TUBE DAILY 06/29/18 10/19/18 History Ipratropium-Albuterol Nebulize 3 ml INHALATION RT-QID ampul.neb 07/24/18 Rx [Duoneb 0.5 mg-3 mg/3 ml Soln] Acetaminophen Tab [Tylenol] 650 mg PEG/G-TUBE Q6H PRN 08/31/18 10/19/18 History Ergocalciferol (Vitamin D2) 66,000 unit PEG/G-TUBE TH 08/31/18 10/19/18 History [Ergocalciferol] Magnesium Oxide [Mag-Ox] 400 mg PEG/G-TUBE DAILY 08/31/18 10/19/18 History Epoetin Von [Procrit] 4,000 unit IJ MOWEFR 10/06/18 10/19/18 History Amoxicillin/Potassium Clav 1 tab PEG/G-TUBE Q12HR 10/19/18 10/19/18 History [Augmentin 875-125 Tablet] Aspirin 81 mg PEG/G-TUBE DAILY 10/19/18 10/19/18 History Atorvastatin [Lipitor] 20 mg PEG/G-TUBE HS 10/19/18 10/19/18 History Ferrous Sulfate [Feosol] 325 mg PEG/G-TUBE DAILY 10/19/18 10/19/18 History Levothyroxine Sodium [Synthroid] 25 mcg PEG/G-TUBE DAILY 10/19/18 10/19/18 History Metoprolol Tartrate [Lopressor] 50 mg PEG/G-TUBE BID 10/19/18 10/19/18 History Omeprazole [PriLOSEC] 20 mg PEG/G-TUBE AC-BID 10/19/18 10/19/18 History Psyllium Husk 100% [Metamucil 6 gm PEG/G-TUBE BID 10/19/18 10/19/18 History Packet] Sodium Bicarbonate Tab 650 mg PEG/G-TUBE BID 10/19/18 10/19/18 History Allergies Allergy/AdvReac Type Severity Reaction Status Date / Time No Known Allergies Allergy Verified 10/19/18 08:26 Physical Exam Vitals: Vital Signs Temp Pulse Pulse Resp BP BP Pulse Ox 10/21/18 09:00 97.8 F 97 16 126/70 91 L 10/21/18 07:37 80 10/21/18 07:23 76 10/21/18 05:00 98 F 77 14 121/60 96 10/21/18 04:00 75 13 95 10/21/18 03:00 75 14 95 10/21/18 02:00 78 15 95 10/21/18 01:00 68 14 138/71 96 10/21/18 00:00 78 16 96 10/20/18 23:00 75 14 96 10/20/18 22:47 73 14 95 10/20/18 22:44 97.9 F 78 18 129/64 96 10/20/18 21:00 77 14 126/89 95 10/20/18 20:39 72 10/20/18 20:22 72 10/20/18 15:55 72 10/20/18 15:47 75 10/20/18 15:00 98.1 F 75 16 127/59 97 10/20/18 14:00 65 14 120/58 96 10/20/18 13:00 69 15 131/58 95 10/20/18 12:00 64 15 136/65 96 10/20/18 11:38 73 10/20/18 11:23 70 10/20/18 11:00 68 18 126/69 97 10/20/18 10:00 91 22 133/69 94 L Intake and Output 10/20/18 10/21/18 10/21/18 22:59 06:59 14:59 Intake Total 1810 695 675 Output Total 470 990 100 Balance 1340 -295 575 Intake: IV 1250 650 300 Sodium Chloride 0.9% 1, 1250 650 300 000 ml @ 100 mls/hr IV . Q10H [facility] Rx#:[id number] Tube Feeding 300 45 225 Other 260 150 Output: Drainage 40 30 Right Groin 40 30 Urine 430 960 100 Other: Voiding Method Indwelling Catheter Urinal Urinal Weight 60.4 kg GENERAL EXAM: Patient is alert and oriented and doesn't appear to be in any acute distress HEENT: Normocephalic. Normal reaction of pupils, equal size, normal range of extraocular motion. No erythema or exudates in the throat. NECK: No masses, no nuchal rigidity. CHEST: No chest wall deformity. LUNGS: Equal air entry with no crackles or wheeze. HEART: S1 and S2 normal with no audible mumurs or gallops. Regular rhythm, femorals equal on both sides.. ABDOMEN: No hepatosplenomegaly, normal bowel sounds, no guarding or rigidity. SKIN: No rashes CENTRAL NERVOUS SYSTEM: No focal deficits. EXTREMITIES dressing in the right groin from recent surgery Results 10/21/18 04:34 10/20/18 05:21 CBC 10/21/18 Range/Units 04:34 WBC 12.1 H (3.8-10.6) k/uL RBC 2.69 L (4.30-5.90) m/uL Hgb 7.9 L (13.0-17.5) gm/dL Hct 25.2 L (39.0-53.0) % Plt Count 184 (150-450) k/uL Current Medications Generic Name Dose Route Start Last Admin Trade Name Freq PRN Reason Stop Dose Admin Acetaminophen 650 mg 10/19/18 17:50 10/20/18 09:55 Tylenol Tab PEG/G-TUBE 650 mg Q6H PRN Administration Fever and/ or Pain Albuterol/Ipratropium 3 ml 10/19/18 20:00 10/21/18 07:22 Duoneb 0.5 Mg-3 Mg/3 Ml Soln INHALATION 3 ml RT-QID [facility] Administration Amlodipine Besylate 10 mg 10/20/18 09:00 10/21/18 08:20 Norvasc PEG/G-TUBE 10 mg DAILY [facility] Administration Amoxicillin/Clavulanate Potassium 1 each 10/19/18 21:00 10/21/18 08:20 Augmentin 875-125 PEG/G-TUBE 10/25/18 21:01 1 each Q12HR [facility] Administration Aspirin 81 mg 10/20/18 09:00 10/21/18 08:20 Aspirin PEG/G-TUBE 81 mg DAILY [facility] Administration Atorvastatin Calcium 20 mg 10/19/18 21:00 10/20/18 20:18 Lipitor PEG/G-TUBE 20 mg HS [facility] Administration Calcium Carbonate/Glycine 500 mg 10/20/18 09:29 10/20/18 10:59 Tums Liquid PO 500 mg TID-W/MEALS PRN Administration GI Upset Darbepoetin Von 40 mcg 10/19/18 19:00 10/19/18 22:14 Aranesp SQ 40 mcg Q7D [facility] Administration Ferrous Sulfate 325 mg 10/20/18 09:00 10/21/18 08:20 Feosol PO 325 mg DAILY [facility] Administration Hydromorphone HCl 0.5 mg 10/19/18 11:38 10/21/18 08:23 Dilaudid IVP 0.5 mg Q3HR PRN Administration Moderate Pain Sodium Chloride 1,000 mls @ 100 mls/hr 10/19/18 11:45 10/21/18 02:31 Saline 0.9% IV 100 mls/hr .Q10H [facility] Administration Levothyroxine Sodium 25 mcg 10/20/18 09:00 10/21/18 08:20 Synthroid PEG/G-TUBE 25 mcg DAILY [facility] Administration Magnesium Oxide 400 mg 10/20/18 09:00 10/21/18 08:21 Mag-Ox PEG/G-TUBE 400 mg DAILY [facility] Administration Metoprolol Tartrate 50 mg 10/19/18 21:00 10/21/18 08:23 Lopressor PEG/G-TUBE 50 mg BID [facility] Administration Naloxone HCl 0.2 mg 10/19/18 11:38 Narcan IV Q2M PRN Opioid Reversal Pantoprazole Sodium 20 mg 10/20/18 07:30 10/21/18 08:19 Protonix PEG/G-TUBE 20 mg AC-BID [facility] Administration Psyllium Hydrophilic Mucilloid 6 gm 10/19/18 21:00 10/21/18 08:20 Metamucil PO Not Given BID [facility] Sodium Bicarbonate 650 mg 10/19/18 21:00 10/21/18 08:20 Sodium Bicarbonate Tab PEG/G-TUBE 650 mg BID [facility] Administration Intake and Output 10/20/18 10/21/18 10/21/18 22:59 06:59 14:59 Intake Total 1810 695 675 Output Total 470 990 100 Balance 1340 -295 575 Intake: IV 1250 650 300 Sodium Chloride 0.9% 1, 1250 650 300 000 ml @ 100 mls/hr IV . Q10H [facility] Rx#:[id number] Tube Feeding 300 45 225 Other 260 150 Output: Drainage 40 30 Right Groin 40 30 Urine 430 960 100 Other: Voiding Method Indwelling Catheter Urinal Urinal Weight 60.4 kg 10/21/18 04:34 10/20/18 05:21 EKG Interpretations (text) Sinus rhythm with frequent APCs Assessment and Plan (1) SVT (supraventricular tachycardia) Current Visit: Yes Status: Acute Code(s): I47.1 - SUPRAVENTRICULAR TACHYCARDIA SNOMED Code(s): 0067721 (2) Pseudoaneurysm following procedure Current Visit: Yes Status: Acute Code(s): I97.89 - OTH POSTPROC COMP AND DISORDERS OF THE CIRC SYS, NEC; I72.9 - ANEURYSM OF UNSPECIFIED SITE SNOMED Code(s): 15905506 (3) Nonsustained ventricular tachycardia Current Visit: Yes Status: Acute Code(s): I47.2 - VENTRICULAR TACHYCARDIA SNOMED Code(s): 726234755 Plan: I will increase the dose of the beta susanna to metoprolol 75 mg by mouth twice a day. Continue to monitor him. No further intervention. Echo done recently showed normal LV function
--- NOTE | 2018-10-21 10:03 | P.PN ---
Subjective Progress Note Date: 10/21/18 Principal diagnosis: Right femoral pseudoaneurysm 68-year-old gentleman status post right groin exploration with femoral artery and vein repair was seen and examined at the bedside. Patient states he is having discomfort in his right groin but continues to improve daily. He did get up to the chair yesterday without issues. Denies fevers, chills, nausea, chest pain or shortness of breath. Objective - Vital Signs Vital signs: Vital Signs Temp 97.8 F 10/21/18 09:00 Pulse 97 10/21/18 09:00 Resp 16 10/21/18 09:00 BP 126/70 10/21/18 09:00 Pulse Ox 91 L 10/21/18 09:00 Intake & Output 10/20/18 10/21/18 10/21/18 18:59 06:59 18:59 Intake Total 1190 1645 675 Output Total 490 1170 100 Balance 700 475 575 Weight 60.1 kg 60.4 kg Intake: IV 900 1300 300 Sodium Chloride 0.9% 1, 900 1300 300 000 ml @ 100 mls/hr IV . Q10H [facility] Rx#:[id number] Tube Feeding 90 285 225 Other 200 60 150 Output: Drainage 40 30 Right Groin 40 30 Urine 450 1140 100 Other: Voiding Method Indwelling Catheter Urinal Urinal - Exam NAD, A&Ox3 Right groin is soft without any expanding hematoma. Incision site is c/d/i, no drainage or sign of infection. ALBERT drain is in place with serosanguineous drainage- 40cc overnight. There is tenderness to palpation over incision extending down to the medial th igh. No fluctuance noted. Patient has palpable PT pulses. - Labs CBC & Chem 7: 10/21/18 04:34 10/20/18 05:21 Labs: Abnormal Lab Results - Last 24 Hours (Table) 10/21/18 Range/Units 04:34 WBC 12.1 H (3.8-10.6) k/uL RBC 2.69 L (4.30-5.90) m/uL Hgb 7.9 L (13.0-17.5) gm/dL Hct 25.2 L (39.0-53.0) % RDW 22.2 H (11.5-15.5) % Neutrophils # 10.1 H (1.3-7.7) k/uL Microbiology - Last 24 Hours (Table) 10/19/18 08:22 Blood Culture - Preliminary Blood No Growth after 24 hours Assessment and Plan Assessment: POD #2 right femoral artery repair Acute blood loss anemia secondary to PSA and repair. Right femoral artery pseudoaneurysm Chronic kidney disease, stage III Recent hospital admission for sepsis Hypertension History of alcohol abuse Hypothyroidism Chronic respiratory insufficiency, histories of pneumonia, currently on oxygen per nasal cannula Plan: Continue ALBERT drain to bulb suction. Dressings changed. Okay to transfer to the telemetry floor. Continue pain management. Increase activity, patient is okay to ambulate with assistance. PT to eval. Monitor hemoglobin.
[2018-10-21 10:05] LABS: Calcium 6.8 mg/dL (8.4-10.2); Magnesium 1.7 mg/dL (1.6-2.3); Potassium 3.5 mmol/L (3.5-5.1)
[2018-10-21] MEDS ORDERED: Potassium Replacement Protocol 1 EACH MISC MISCELLANE PRN (10:18)
[2018-10-21] MEDS ORDERED: Magnesium Replacement Protocol 1 EACH MISC MISCELLANE PRN (10:19)
[2018-10-21] MEDS: MAGNESIUM SULFATE-D5W PMX 1 GM in DEXTROSE/WATER 1 100ML.BAG IVPB SCH ×2 (11:15→13:02)
[2018-10-21] MEDS: POTASSIUM BICARBONATE/CIT AC 20 MEQ TABLET.EFF NG-TUBE SCH ×2 (11:15→13:02)
[2018-10-21] MEDS ORDERED: LACTULOSE 20 GM/30 ML CUP PO ONE (12:27)
--- NOTE | 2018-10-21 13:31 | P.PN ---
Progress Note - Text Progress Note Date: 10/21/18 Chief Complaint: Pain in the right groin Interval history: This is a 68-year-old patient who was just discharged from the hospital on October 17 following admission for aspiration pneumonia. Patient was here in August of this year. Had a rather prolonged admission. Was then treated for pneumonia and metabolic encephalopathy. Patient was on the ventilator. Patient also was found to be esophagitis, had a septic shock, and also had acute tubular necrosis. Patient also GI bleed with multiple blood transfusions. No source of bleeding was found. Patient also had thoracentesis for pleural effusion. PEG tube was placed. About a month ago patient was here for UTI and cystitis. On the last admission patient is found unresponsive at home. Found to have both aspiration pneumonia and possible UTI. Patient had to be intubated. On the last admission patient failed his swallowing exam. Has 2 feeding was being done. Patient had an IV access to the right groin. Patient at the [facility] complaint of pain in the right groin that was progressive. Admitted for the same. Found to have a pseudoaneurysm of the right femoral artery. Patient received 3 units of blood. Was extubated. Status post repair of the pseudoaneurysm. Today-getting tube feeding. Remains nothing by mouth. Had multiple ectopics. 6 beat run of nonsustained V. tach. Otherwise sitting up comfortable. Does not remember his last bowel movement Review of systems: Was done for constitutional, cardiovascular, GI, pulmonary. relevant finding as above Active Medications Acetaminophen (Tylenol Tab) 650 mg PEG/G-TUBE Q6H PRN PRN Reason: Fever and/ or Pain Last Admin: 10/20/18 09:55 Dose: 650 mg Documented by: Albuterol/Ipratropium (Duoneb 0.5 Mg-3 Mg/3 Ml Soln) 3 ml INHALATION RT-QID [facility] Last Admin: 10/21/18 11:29 Dose: 3 ml Documented by: Amlodipine Besylate (Norvasc) 10 mg PEG/G-TUBE DAILY [facility] Last Admin: 10/21/18 08:20 Dose: 10 mg Documented by: Amoxicillin/Clavulanate Potassium (Augmentin 5125) 1 each PEG/G-TUBE Q12HR [facility] Stop: 10/25/18 21:01 Last Admin: 10/21/18 08:20 Dose: 1 each Documented by: Aspirin (Aspirin) 81 mg PEG/G-TUBE DAILY [facility] Last Admin: 10/21/18 08:20 Dose: 81 mg Documented by: Atorvastatin Calcium (Lipitor) 20 mg PEG/G-TUBE HS [facility] Last Admin: 10/20/18 20:18 Dose: 20 mg Documented by: Calcium Carbonate/Glycine (Tums Liquid) 500 mg PO TID-W/MEALS PRN PRN Reason: GI Upset Last Admin: 10/20/18 10:59 Dose: 500 mg Documented by: Darbepoetin Von (Aranesp) 40 mcg SQ Q7D [facility] Last Admin: 10/19/18 22:14 Dose: 40 mcg Documented by: Ferrous Sulfate (Feosol) 325 mg PO DAILY [facility] Last Admin: 10/21/18 08:20 Dose: 325 mg Documented by: Hydromorphone HCl (Dilaudid) 0.5 mg IVP Q3HR PRN PRN Reason: Moderate Pain Last Admin: 10/21/18 08:23 Dose: 0.5 mg Documented by: Sodium Chloride (Saline 0.9%) 1,000 mls @ 100 mls/hr IV .Q10H [facility] Last Admin: 10/21/18 13:02 Dose: 100 mls/hr Documented by: Levothyroxine Sodium (Synthroid) 25 mcg PEG/G-TUBE DAILY [facility] Last Admin: 10/21/18 08:20 Dose: 25 mcg Documented by: Magnesium Oxide (Mag-Ox) 400 mg PEG/G-TUBE DAILY [facility] Last Admin: 10/21/18 08:21 Dose: 400 mg Documented by: Metoprolol Tartrate (Lopressor) 75 mg PEG/G-TUBE BID [facility] Miscellaneous Information (Magnesium Per Protocol) 1 each MISCELLANE DAILY PRN; Protocol PRN Reason: Per Protocol Miscellaneous Information (Potassium Per Protocol) 1 each MISCELLANE DAILY PRN; Protocol PRN Reason: Per Protocol Naloxone HCl (Narcan) 0.2 mg IV Q2M PRN PRN Reason: Opioid Reversal Pantoprazole Sodium (Protonix) 20 mg PEG/G-TUBE AC-BID [facility] Last Admin: 10/21/18 08:19 Dose: 20 mg Documented by: Psyllium Hydrophilic Mucilloid (Metamucil) 6 gm PO BID [facility] Last Admin: 10/21/18 08:20 Dose: Not Given Documented by: Sodium Bicarbonate (Sodium Bicarbonate Tab) 650 mg PEG/G-TUBE BID [facility] Last Admin: 10/21/18 08:20 Dose: 650 mg Documented by: Physical examination: VITAL SIGNS: 97.8, 97, 16, 126/70, 91% room air GENERAL: Propped up in bed. EYES: Pupils equal. Conjunctiva pale HEENT: External appearance of nose and ears normal, oral cavity dry. NECK: JVD not raised; masses not palpable. HEART: First and second heart sounds are normal; no edema. LUNGS: Respiratory rate normal; decreased breath sounds. ABDOMEN: [Soft, nontender, liver spleen not palpable, no masses palpable, dressing over the right groin., PEG tube in place , ALBERT drain with serosanguin eous drainage 40 mL overnight PSYCH: Alert and oriented x3; mood and affect anxiousl. Investigations: White count 12.1 hemoglobin 7.9 potassium 3.5 bun 37 creatinine 1.83 Previous investigations Ultrasound and earlier revealed a pseudoaneurysm of the right femoral artery Assessment: -Pseudoaneurysm of the right femoral arteryat IV access site with blood leakage now surgically repaired -Acute blood loss anemia as expected from surgery patient did require 3 units of blood --pneumonia suspected aspiration pneumonia, causing sepsis from staph aureus , from last admission, continue antibiotics -Chronic esophagitis -PEG tube, chronic -Hypothyroid -Chronic kidney disease stage III from nephrosclerosis at baseline -Anemia of chronic kidney disease -Anemia from recent GI bleed exact source unknown -Acute renal failure from acute tubal necrosis from underlying sepsis, some improvement -Dysphagia, showed gross silent aspiration. By MBS. Patient to repeat swallowing exam down the road -Antibiotic associated diarrhea, on last admission. Responded well to Metamucil Plan: Patient has been okayed for activity per vascular surgery. Physical therapy consulted. For constipation will give laxatives. Discussed with nurse. Patient to be moved out of ICU. Cardiology consulted. They increased the dose of metoprolol to 75 mg twice a day
[2018-10-21] MEDS: METOPROLOL TARTRATE 25 MG TAB PEG/G-TUBE SCH (19:13)
[2018-10-21] MEDS: ATORVASTATIN 20 MG TAB PEG/G-TUBE SCH (19:51)
[2018-10-22] MEDS: SODIUM CHLORIDE 0.9% 1,000 ML IV SCH ×3 (00:30→20:55)
[2018-10-22] MEDS: HYDROmorphone 0.5 MG/0.5 ML SYRINGE IVP PRN ×4 (04:18→23:08)
[2018-10-22 05:45] LABS: Anisocytosis Moderate; Basophils % (A) 0 %; Eosinophils # (A) 0.4 k/uL (0-0.7); Eosinophils % (A) 3 %; HCT 23.8 % (39.0-53.0); HGB 7.7 gm/dL (13.0-17.5); Hypochromasia Moderate; Lymphocytes # (A) 0.9 k/uL (1.0-4.8); Lymphocytes % (A) 8 %; MCH 30.6 pg (25.0-35.0); MCHC 32.2 g/dL (31.0-37.0); MCV 95.2 fL (80.0-100.0); Macrocytosis Slight; Mean Platelet Volume 8.3; Monocytes # (A) 0.5 k/uL (0-1.0); Monocytes % (A) 5 %; Neutrophils # (A) 9.2 k/uL (1.3-7.7); Neutrophils % (A) 83 %; Platelet Count 224 k/uL (150-450); Poikilocytosis Slight; RDW 21.8 % (11.5-15.5); WBC 11.2 k/uL (3.8-10.6)
[2018-10-22 05:53] LABS: Calcium 6.8 mg/dL (8.4-10.2); Magnesium 2.1 mg/dL (1.6-2.3)
[2018-10-22 06:27] LABS: Potassium 3.8 mmol/L (3.5-5.1)
[2018-10-22] MEDS ORDERED: POTASSIUM BICARBONATE/CIT AC 20 MEQ TABLET.EFF NG-TUBE SCH (07:00)
[2018-10-22] MEDS ORDERED: PANTOPRAZOLE SODIUM 40 MG GRANULE PKT PEG/G-TUBE SCH (08:00)
[2018-10-22] MEDS: IPRATROPIUM-ALBUTEROL 3 ML NEB INHALATION SCH ×4 (08:12→20:17)
[2018-10-22] MEDS: PSYLLIUM HUSK 100% 6 GM PACKET PO SCH ×2 (08:43→20:55)
[2018-10-22] MEDS: PANTOPRAZOLE SODIUM 40 MG GRANULE PKT PEG/G-TUBE SCH ×2 (08:46→18:03)
[2018-10-22] MEDS: amLODIPine 10 MG TAB PEG/G-TUBE SCH (08:46)
[2018-10-22] MEDS: MAGNESIUM OXIDE 400 MG TAB PEG/G-TUBE SCH (08:46)
[2018-10-22] MEDS: SODIUM BICARBONATE TAB 650 MG TAB PEG/G-TUBE SCH ×2 (08:46→20:55)
[2018-10-22] MEDS: ASPIRIN 81 MG PEG/G-TUBE SCH (08:46)
[2018-10-22] MEDS: AMOXIC-POT CLAV 875-125MG 1 EACH TAB PEG/G-TUBE SCH ×2 (08:46→20:55)
[2018-10-22] MEDS: METOPROLOL TARTRATE 25 MG TAB PEG/G-TUBE SCH ×2 (08:47→20:54)
[2018-10-22] MEDS: FERROUS SULFATE 325 MG TAB PO SCH (08:47)
[2018-10-22] MEDS: LEVOTHYROXINE 25 MCG TAB PEG/G-TUBE SCH (08:47)
--- NOTE | 2018-10-22 10:13 | PN ---
PROGRESS NOTE Twin is a 68-year-old gentleman who was admitted to hospital with pseudoaneurysm for which he underwent repair. We were consulted because of an episode of wide-complex tachycardia. The patient had an echocardiogram recently that showed normal LV function. Over the last 24 hours, the patient has done well and has not had any episodes of SVT. PHYSICAL EXAM: Comfortable at rest. Vital signs are stable. Chest exam reveals good air entry bilaterally. Heart exam reveals first and second heart sounds. No gallop. Exam of extremities did not reveal any edema. ASSESSMENT: 1. Paroxysmal SVT, currently in sinus rhythm. 2. Pseudoaneurysm, status post surgical repair. No further cardiac evaluation at this time. We will continue to monitor him. MMODL / IJN: [id number] /
--- NOTE | 2018-10-22 10:22 | P.PN ---
Subjective Progress Note Date: 10/22/18 Pt s/e. Still with right groin/ scrotum pain. No issues per nursing. Did get up to chair yesterday without issue Objective - Vital Signs Vital signs: Vital Signs Temp 98.1 F 10/22/18 04:00 Pulse 74 10/22/18 08:25 Resp 16 10/22/18 04:00 BP 133/66 10/22/18 04:00 Pulse Ox 95 10/22/18 04:00 Intake & Output 10/21/18 10/22/18 10/22/18 18:59 06:59 18:59 Intake Total 2490 2035 Output Total 905 1180 Balance 1585 855 Weight 63.9 kg Intake: IV 1300 1300 Magnesium Sulfate-D5w Pmx 200 1 gm In Dextrose/Water 1 100ml.bag @ 100 mls/hr IVPB Q1H [facility] Rx#: [id number] Sodium Chloride 0.9% 1, 1100 1300 000 ml @ 100 mls/hr IV . Q10H [facility] Rx#:[id number] Tube Feeding 860 675 Other 330 60 Output: Drainage 30 30 Right Groin 30 30 Urine 875 1150 Other: Voiding Method Urinal Urinal # Bowel Movements 1 - Exam NAD, resting in bed comfortably No resp distress heart regular Abd soft R going c/d/i. ALBERT with SS drainage. 35 o/n per nsg. extremely sensitive to [place] ch. greatly improved swelling - Labs CBC & Chem 7: 10/22/18 05:25 10/22/18 05:25 Labs: Abnormal Lab Results - Last 24 Hours (Table) 10/22/18 10/22/18 Range/Units 05:25 05:25 WBC 11.2 H (3.8-10.6) k/uL RBC 2.50 L (4.30-5.90) m/uL Hgb 7.7 L (13.0-17.5) gm/dL Hct 23.8 L (39.0-53.0) % RDW 21.8 H (11.5-15.5) % Neutrophils # 9.2 H (1.3-7.7) k/uL Lymphocytes # 0.9 L (1.0-4.8) k/uL Chloride 113 H (98-107) mmol/L Carbon Dioxide 20 L (22-30) mmol/L BUN 29 H (9-20) mg/dL Creatinine 1.73 H (0.66-1.25) mg/dL Calcium 6.8 L (8.4-10.2) mg/dL Microbiology - Last 24 Hours (Table) 10/19/18 08:22 Blood Culture - Preliminary Blood No Growth after 48 hours Assessment and Plan Assessment: POD #3 right femoral artery repair Acute blood loss anemia secondary to PSA and repair. Right femoral artery pseudoaneurysm Chronic kidney disease, stage III Recent hospital admission for sepsis Hypertension History of alcohol abuse Hypothyroidism Chronic respiratory insufficiency, histories of pneumonia, currently on oxygen per nasal cannula Plan: Increase activity as tolerated. Leave ALBERT in today. Will remove tomorrow. PT/OT. DC planning.
[2018-10-22 12:17] VITALS: BMI 21.4
[2018-10-22] MEDS: ATORVASTATIN 20 MG TAB PEG/G-TUBE SCH (20:55)
--- NOTE | 2018-10-22 22:16 | P.PN ---
Subjective Progress Note Date: 10/22/18 Principal diagnosis: Right femoral pseudoaneurysm This is a 68-year-old patient who was just discharged from the hospital on October 17 following admission for aspiration pneumonia. Patient was here in August of this year. Had a rather prolonged admission. Was then treated for pneumonia and metabolic encephalopathy. Patient was on the ventilator. Patient also was found to be esophagitis, had a septic shock, and also had acute tubular necrosis. Patient also GI bleed with multiple blood transfusions. No source of bleeding was found. Patient also had thoracentesis for pleural effusion. PEG tube was placed. About a month ago patient was here for UTI and cystitis. On the last admission patient is found unresponsive at home. Found to have both aspiration pneumonia and possible UTI. Patient had to be intubated. On the last admission patient failed his swallowing exam. Has 2 feeding was being done. Patient had an IV access to the right groin. Patient at the [facility] complaint of pain in the right groin that was progressive. Admitted for the same. Found to have a pseudoaneurysm of the right femoral artery. Patient received 3 units of blood. Was extubated. Status post repair of the pseudoaneurysm. Today-getting tube feeding. Remains nothing by mouth. Had multiple ectopics. 6 beat run of nonsustained V. tach. Otherwise sitting up comfortable. Does not remember his last bowel movement 10/22/2018 Patient is status post right femoral pseudoaneurysm repair postoperative day 3. Complaints of right groin but improving. PT OT was consulted. Hemoglobin 7.7 down from 7.9 yestersay. creatinine 0.73, leukocytosis improved to 11.2 Review of systems: Was done for constitutional, cardiovascular, GI, pulmonary. relevant finding as above Objective - Vital Signs Vital signs: Vital Signs Temp 98.2 F 10/22/18 09:00 Pulse 74 10/22/18 11:56 Resp 13 10/22/18 10:00 BP 123/78 10/22/18 09:00 Pulse Ox 95 10/22/18 10:00 Intake & Output 10/21/18 10/22/18 10/22/18 18:59 06:59 18:59 Intake Total 2490 2035 990 Output Total 905 1180 Balance 1585 855 990 Weight 63.9 kg Intake: IV 1300 1300 Magnesium Sulfate-D5w Pmx 200 1 gm In Dextrose/Water 1 100ml.bag @ 100 mls/hr IVPB Q1H [facility] Rx#: [id number] Sodium Chloride 0.9% 1, 1100 1300 000 ml @ 100 mls/hr IV . Q10H [facility] Rx#:[id number] Tube Feeding 860 675 990 Other 330 60 Output: Drainage 30 30 Right Groin 30 30 Urine 875 1150 Other: Voiding Method Urinal Urinal Urinal # Bowel Movements 1 - Exam GENERAL: Propped up in bed. EYES: Pupils equal. Conjunctiva pale HEENT: External appearance of nose and ears normal, oral cavity dry. NECK: JVD not raised; masses not palpable. HEART: First and second heart sounds are normal; no edema. LUNGS: Respiratory rate normal; decreased breath sounds. ABDOMEN: [Soft, nontender, liver spleen not palpable, no masses palpable, dressing over the right groin., PEG tube in place , ALBERT drain with serosanguineous drainage 40 mL overnight PSYCH: Alert and oriented x3; mood and affect anxiousl. - Labs CBC & Chem 7: 10/22/18 05:25 10/22/18 05:25 Labs: Abnormal Lab Results - Last 24 Hours (Table) 10/22/18 10/22/18 Range/Units 05:25 05:25 WBC 11.2 H (3.8-10.6) k/uL RBC 2.50 L (4.30-5.90) m/uL Hgb 7.7 L (13.0-17.5) gm/dL Hct 23.8 L (39.0-53.0) % RDW 21.8 H (11.5-15.5) % Neutrophils # 9.2 H (1.3-7.7) k/uL Lymphocytes # 0.9 L (1.0-4.8) k/uL Chloride 113 H (98-107) mmol/L Carbon Dioxide 20 L (22-30) mmol/L BUN 29 H (9-20) mg/dL Creatinine 1.73 H (0.66-1.25) mg/dL Calcium 6.8 L (8.4-10.2) mg/dL Microbiology - Last 24 Hours (Table) 10/19/18 08:22 Blood Culture - Preliminary Blood No Growth after 72 hours Assessment and Plan Assessment: -Pseudoaneurysm of the right femoral arteryat IV access site with blood leakage now surgically repaired -Acute blood loss anemia as expected from surgery patient did require 3 units of blood. hb 7.7 --pneumonia suspected aspiration pneumonia, causing sepsis from staph aureus , from last admission, continue antibiotics -Chronic esophagitis -PEG tube, chronic -Hypothyroid -Chronic kidney disease stage III from nephrosclerosis at baseline -Anemia of chronic kidney disease -Anemia from recent GI bleed exact source unknown -Acute renal failure from acute tubal necrosis from underlying sepsis, some improvement -Dysphagia, showed gross silent aspiration. By MBS. Patient to repeat swallowing exam down the road -Antibiotic associated diarrhea, on last admission. Responded well to Metamucil Plan: Patient has been okayed for activity per vascular surgery. Physical therapy consulted. For constipation will give laxatives. Discussed with nurse. Patient to be moved out of ICU. Cardiology consulted. They increased the dose of metoprolol to 75 mg twice a day Time with Patient: Greater than 30
[2018-10-23] MEDS: HYDROmorphone 0.5 MG/0.5 ML SYRINGE IVP PRN ×5 (03:04→20:24)
[2018-10-23 05:24] LABS: Anisocytosis Moderate; HCT 26.1 % (39.0-53.0); HGB 8.1 gm/dL (13.0-17.5); Hypochromasia Marked; MCHC 30.9 g/dL (31.0-37.0); MCV 97.1 fL (80.0-100.0); Macrocytosis Slight; Mean Platelet Volume 8.2; Platelet Count 242 k/uL (150-450); Poikilocytosis Slight; RBC 2.69 m/uL (4.30-5.90); RDW 21.2 % (11.5-15.5); WBC 11.1 k/uL (3.8-10.6)
[2018-10-23 05:36] LABS: Calcium 7.1 mg/dL (8.4-10.2)
[2018-10-23 05:48] LABS: Potassium 4.1 mmol/L (3.5-5.1)
[2018-10-23] MEDS: PANTOPRAZOLE SODIUM 40 MG GRANULE PKT PEG/G-TUBE SCH ×2 (09:00→16:27)
[2018-10-23] MEDS: MAGNESIUM OXIDE 400 MG TAB PEG/G-TUBE SCH (09:00)
[2018-10-23] MEDS: METOPROLOL TARTRATE 25 MG TAB PEG/G-TUBE SCH ×2 (09:00→21:52)
[2018-10-23] MEDS: ASPIRIN 81 MG PEG/G-TUBE SCH (09:00)
[2018-10-23] MEDS: amLODIPine 10 MG TAB PEG/G-TUBE SCH (09:00)
[2018-10-23] MEDS: AMOXIC-POT CLAV 875-125MG 1 EACH TAB PEG/G-TUBE SCH ×2 (09:01→21:52)
[2018-10-23] MEDS: SODIUM BICARBONATE TAB 650 MG TAB PEG/G-TUBE SCH ×2 (09:01→21:52)
[2018-10-23] MEDS: FERROUS SULFATE 325 MG TAB PO SCH (09:01)
[2018-10-23] MEDS: PSYLLIUM HUSK 100% 6 GM PACKET PO SCH ×2 (09:01→21:51)
[2018-10-23] MEDS: SODIUM CHLORIDE 0.9% 1,000 ML IV SCH ×2 (09:01→16:27)
[2018-10-23] MEDS: LEVOTHYROXINE 25 MCG TAB PEG/G-TUBE SCH (09:02)
[2018-10-23] MEDS: IPRATROPIUM-ALBUTEROL 3 ML NEB INHALATION SCH ×4 (09:15→19:45)
--- NOTE | 2018-10-23 10:55 | P.PN ---
Subjective Progress Note Date: 10/23/18 Principal diagnosis: Right femoral pseudoaneurysm 68-year-old gentleman status post right groin exploration with femoral artery and vein repair was seen and examined at the bedside. patient states feeling better and pain is more controlled. He is still having complaints of swelling. Overnight per nursing his ALBERT drain drained 30 mL. He has not gotten up and ambulated as of yet but is planning on doing that today. He denies any fevers, chills, chest pain or shortness of breath. Objective - Vital Signs Vital signs: Vital Signs Temp 98.0 F 10/23/18 09:00 Pulse 77 10/23/18 10:00 Resp 19 10/23/18 10:00 BP 140/81 10/23/18 09:00 Pulse Ox 93 L 10/23/18 09:00 Intake & Output 10/22/18 10/23/18 10/23/18 18:59 06:59 18:59 Intake Total 1780 1000 180 Output Total 320 800 Balance 1460 200 180 Weight 63.9 kg 67.1 kg Intake: IV 400 1000 Sodium Chloride 0.9% 1, 400 1000 000 ml @ 100 mls/hr IV . Q10H [facility] Rx#:[id number] Tube Feeding 1350 180 Other 30 Output: Drainage 20 Right Groin 20 Urine 300 800 Other: Voiding Method Urinal Urinal Urinal # Voids 1 - Exam NAD, A&Ox3 Right groin is soft without any expanding hematoma. Incision site is c/d/i, no drainage or sign of infection. ALBERT drain is in place with serosanguineous drainage- 30cc overnight. There is tenderness to palpation over incision extending down to the medial thigh. No fluctuance noted. Patient has palpable PT pulses. - Labs CBC & Chem 7: 10/23/18 05:05 10/23/18 05:05 Labs: Abnormal Lab Results - Last 24 Hours (Table) 10/23/18 10/23/18 Range/Units 05:05 05:05 WBC 11.1 H (3.8-10.6) k/uL RBC 2.69 L (4.30-5.90) m/uL Hgb 8.1 L (13.0-17.5) gm/dL Hct 26.1 L (39.0-53.0) % MCHC 30.9 L (31.0-37.0) g/dL RDW 21.2 H (11.5-15.5) % Chloride 111 H (98-107) mmol/L BUN 27 H (9-20) mg/dL Creatinine 1.59 H (0.66-1.25) mg/dL Calcium 7.1 L (8.4-10.2) mg/dL Microbiology - Last 24 Hours (Table) 10/19/18 08:22 Blood Culture - Preliminary Blood No Growth after 96 hours Assessment and Plan Assessment: POD #4 right femoral artery repair Acute blood loss anemia secondary to PSA and repair. Right femoral artery pseudoaneurysm Chronic kidney disease, stage III Recent hospital admission for sepsis Hypertension History of alcohol abuse Hypothyroidism Chronic respiratory insufficiency, histories of pneumonia, currently on oxygen per nasal cannula Plan: ALBERT drain removed without complication. Dressings changed. Okay to transfer to the telemetry floor. Continue pain management. Increase activity, patient is okay to ambulate with assistance. PT to eval. Monitor hemoglobin.
--- NOTE | 2018-10-23 12:02 | PN ---
PROGRESS NOTE A 68-year-old gentleman who was admitted to hospital with right femoral pseudoaneurysm and underwent surgery for the same. We were involved because of episodes of SVT. Patient has not had any further episodes of SVT this morning, other than having some discomfort at the surgical site, he states that he is feeling better. On exam, vital signs are stable. Chest exam reveals good air entry. Heart exam reveals first and second heart sounds. Abdomen is soft. Exam of the extremities reveals status post right groin surgery. ASSESSMENT: Paroxysmal SVT, currently in sinus rhythm, no further evaluation of followup. Will see him on an as-needed basis. MMODL / IJN: [id number] /
[2018-10-23] MEDS: ATORVASTATIN 20 MG TAB PEG/G-TUBE SCH (21:52)
[2018-10-24] MEDS: HYDROmorphone 0.5 MG/0.5 ML SYRINGE IVP PRN ×7 (01:55→22:50)
[2018-10-24] MEDS: SODIUM CHLORIDE 0.9% 1,000 ML IV SCH ×2 (05:02→22:52)
[2018-10-24 06:01] LABS: Anisocytosis Moderate; HCT 23.8 % (39.0-53.0); HGB 7.8 gm/dL (13.0-17.5); Hypochromasia Moderate; MCH 31.2 pg (25.0-35.0); MCV 94.7 fL (80.0-100.0); Macrocytosis Slight; Mean Platelet Volume 8.4; Platelet Count 251 k/uL (150-450); Poikilocytosis Slight; RBC 2.51 m/uL (4.30-5.90); RDW 21.4 % (11.5-15.5); WBC 11.4 k/uL (3.8-10.6)
[2018-10-24 06:32] LABS: Calcium 7.3 mg/dL (8.4-10.2)
[2018-10-24 06:33] LABS: Potassium 4.2 mmol/L (3.5-5.1)
[2018-10-24] MEDS: IPRATROPIUM-ALBUTEROL 3 ML NEB INHALATION SCH ×4 (08:08→20:04)
[2018-10-24] MEDS: ASPIRIN 81 MG PEG/G-TUBE SCH (08:45)
[2018-10-24] MEDS: METOPROLOL TARTRATE 25 MG TAB PEG/G-TUBE SCH ×2 (08:45→20:44)
[2018-10-24] MEDS: LEVOTHYROXINE 25 MCG TAB PEG/G-TUBE SCH (08:45)
[2018-10-24] MEDS: amLODIPine 10 MG TAB PEG/G-TUBE SCH (08:45)
[2018-10-24] MEDS: FERROUS SULFATE 325 MG TAB PO SCH (08:45)
[2018-10-24] MEDS: SODIUM BICARBONATE TAB 650 MG TAB PEG/G-TUBE SCH ×2 (08:45→20:44)
[2018-10-24] MEDS: PANTOPRAZOLE SODIUM 40 MG GRANULE PKT PEG/G-TUBE SCH ×2 (08:45→16:14)
[2018-10-24] MEDS: AMOXIC-POT CLAV 875-125MG 1 EACH TAB PEG/G-TUBE SCH ×2 (08:45→20:44)
[2018-10-24] MEDS: PSYLLIUM HUSK 100% 6 GM PACKET PO SCH ×2 (08:46→20:44)
[2018-10-24] MEDS: MAGNESIUM OXIDE 400 MG TAB PEG/G-TUBE SCH (08:46)
--- NOTE | 2018-10-24 13:44 | P.PN ---
Subjective Progress Note Date: 10/24/18 Principal diagnosis: Right femoral pseudoaneurysm status post repair Patient is awake alert. He voices no complaints other than some residual incisional discomfort. He continues to have small amount of drainage from the drain site. A urostomy bag is utilized to collect fluid. Vital signs are stable patient is afebrile. Surgical wound is clean, dry and healing normally. Drain site wound is draining serous fluid. There is no sign or symptom of infection. Probable posterior tibial pulse is noted on the right. There is no leg edema. Toes are freely movable and nontender. Objective - Vital Signs Vital signs: Vital Signs Temp 97.9 F 10/24/18 08:00 Pulse 87 10/24/18 12:01 Resp 20 10/24/18 09:00 BP 142/82 10/24/18 10:00 Pulse Ox 90 L 10/24/18 10:00 Intake & Output 10/23/18 10/24/18 10/24/18 18:59 06:59 18:59 Intake Total 1340 500 125 Output Total 600 700 300 Balance 740 -200 -175 Weight 65 kg Intake: IV 800 500 50 Sodium Chloride 0.9% 1, 800 500 50 000 ml @ 50 mls/hr IV . Q20H [facility] Rx#:[id number] Tube Feeding 540 45 Other 30 Output: Urine 600 700 300 Other: Voiding Method Urinal Urinal Urinal - Integumentary Integumentary Comment(s): Surgical wound is clean, dry and healing normally. There is a urostomy bag overlying the drain site draining unremarkable serous looking fluid. There is no sign or symptom of cellulitis or other infectious process. Palpable dorsalis pedis pulse is noted on the right. There is no leg edema or cyanosis. Toes are freely movable and nontender. - Labs CBC & Chem 7: 10/24/18 05:22 10/24/18 05:22 Labs: Abnormal Lab Results - Last 24 Hours (Table) 10/24/18 10/24/18 Range/Units 05:22 05:22 WBC 11.4 H (3.8-10.6) k/uL RBC 2.51 L (4.30-5.90) m/uL Hgb 7.8 L (13.0-17.5) gm/dL Hct 23.8 L (39.0-53.0) % RDW 21.4 H (11.5-15.5) % Chloride 111 H (98-107) mmol/L Carbon Dioxide 20 L (22-30) mmol/L BUN 26 H (9-20) mg/dL Creatinine 1.62 H (0.66-1.25) mg/dL Calcium 7.3 L (8.4-10.2) mg/dL Microbiology - Last 24 Hours (Table) 10/19/18 08:22 Blood Culture - Preliminary Blood No Growth after 120 hours Assessment and Plan Assessment: Status post repair right femoral pseudoaneurysm. Plan: Patient may be up in a matured from a surgical standpoint. Okay to shower over wound. Discharge per primary care service. Office follow-up. Time with Patient: Less than 30
[2018-10-24] MEDS: ATORVASTATIN 20 MG TAB PEG/G-TUBE SCH (20:44)
--- NOTE | 2018-10-24 23:36 | P.PN ---
Subjective Progress Note Date: 10/23/18 Principal diagnosis: Right femoral pseudoaneurysm This is a 68-year-old patient who was just discharged from the hospital on October 17 following admission for aspiration pneumonia. Patient was here in August of this year. Had a rather prolonged admission. Was then treated for pneumonia and metabolic encephalopathy. Patient was on the ventilator. Patient also was found to be esophagitis, had a septic shock, and also had acute tubular necrosis. Patient also GI bleed with multiple blood transfusions. No source of bleeding was found. Patient also had thoracentesis for pleural effusion. PEG tube was placed. About a month ago patient was here for UTI and cystitis. On the last admission patient is found unresponsive at home. Found to have both aspiration pneumonia and possible UTI. Patient had to be intubated. On the last admission patient failed his swallowing exam. Has 2 feeding was being done. Patient had an IV access to the right groin. Patient at the [facility] complaint of pain in the right groin that was progressive. Admitted for the same. Found to have a pseudoaneurysm of the right femoral artery. Patient received 3 units of blood. Was extubated. Status post repair of the pseudoaneurysm. Today-getting tube feeding. Remains nothing by mouth. Had multiple ectopics. 6 beat run of nonsustained V. tach. Otherwise sitting up comfortable. Does not remember his last bowel movement 10/22/2018 Patient is status post right femoral pseudoaneurysm repair postoperative day 3. Complaints of right groin but improving. PT OT was consulted. Hemoglobin 7.7 down from 7.9 yestersay. creatinine 0.73, leukocytosis improved to 11.2 10/23/2018 Patient says that he is feeling better today. Still having swelling as well as scrotal swelling. Patient is on ALBERT drain. Patient was transferred to chair with support. Otherwise denied any complaints of chest pain or shortness of breath. Patient is on tube feeding. We will reduce IV fluids due to worsening scrotal swelling. N hemoglobin 8.1 Review of systems: Was done for constitutional, cardiovascular, GI, pulmonary. relevant finding as above Current medications reviewed. Objective - Vital Signs Vital signs: Vital Signs Temp 98.0 F 10/23/18 13:00 Pulse 79 10/23/18 14:00 Resp 20 10/23/18 15:49 BP 135/80 10/23/18 13:00 Pulse Ox 92 L 07/23/19 14:00 Intake & Output 10/22/18 10/23/18 10/23/18 18:59 06:59 18:59 Intake Total 1780 1000 1340 Output Total 320 800 600 Balance 1460 200 740 Weight 63.9 kg 67.1 kg Intake: IV 400 1000 800 Sodium Chloride 0.9% 1, 400 1000 800 000 ml @ 100 mls/hr IV . Q10H [facility] Rx#:[id number] Tube Feeding 1350 540 Other 30 Output: Drainage 20 Right Groin 20 Urine 300 800 600 Other: Voiding Method Urinal Urinal Urinal # Voids 1 - Exam GENERAL: Propped up in bed. EYES: Pupils equal. Conjunctiva pale HEENT: External appearance of nose and ears normal, oral cavity dry. NECK: JVD not raised; masses not palpable. HEART: First and second heart sounds are normal; no edema. LUNGS: Respiratory rate normal; decreased breath sounds. ABDOMEN: [Soft, nontender, liver spleen not palpable, no masses palpable, dressing over the right groin., PEG tube in place , ALBERT drain with serosanguineous drainage 30 mL overnight and scrotal swelling.. PSYCH: Alert and oriented x3; mood and affect anxiousl. - Labs CBC & Chem 7: 10/24/18 05:22 10/24/18 05:22 Labs: Abnormal Lab Results - Last 24 Hours (Table) 10/23/18 10/23/18 Range/Units 05:05 05:05 WBC 11.1 H (3.8-10.6) k/uL RBC 2.69 L (4.30-5.90) m/uL Hgb 8.1 L (13.0-17.5) gm/dL Hct 26.1 L (39.0-53.0) % MCHC 30.9 L (31.0-37.0) g/dL RDW 21.2 H (11.5-15.5) % Chloride 111 H (98-107) mmol/L BUN 27 H (9-20) mg/dL Creatinine 1.59 H (0.66-1.25) mg/dL Calcium 7.1 L (8.4-10.2) mg/dL Microbiology - Last 24 Hours (Table) 10/19/18 08:22 Blood Culture - Preliminary Blood No Growth after 96 hours Assessment and Plan Assessment: -Pseudoaneurysm of the right femoral arteryat IV access site with blood leakage now surgically repaired -Acute blood loss anemia as expected from surgery patient did require 3 units of blood. hb 7.7 --pneumonia suspected aspiration pneumonia, causing sepsis from staph aureus , from last admission, continue antibiotics -Chronic esophagitis -PEG tube, chronic -Hypothyroid -Chronic kidney disease stage III from nephrosclerosis at baseline -Anemia of chronic kidney disease -Anemia from recent GI bleed exact source unknown -Acute renal failure from acute tubal necrosis from underlying sepsis, some improvement -Dysphagia, showed gross silent aspiration. By MBS. Patient to repeat swallowing exam down the road -Antibiotic associated diarrhea, on last admission. Responded well to Metamucil Plan: Patient has been okayed for activity per vascular surgery. Physical therapy consulted. For constipation will give laxatives. Discussed with nurse. Patien t to be moved out of ICU. Cardiology consulted. They increased the dose of metoprolol to 75 mg twice a day Time with Patient: Greater than 30
--- NOTE | 2018-10-24 23:38 | P.PN ---
Subjective Progress Note Date: 10/24/18 Principal diagnosis: Right femoral pseudoaneurysm This is a 68-year-old patient who was just discharged from the hospital on October 17 following admission for aspiration pneumonia. Patient was here in August of this year. Had a rather prolonged admission. Was then treated for pneumonia and metabolic encephalopathy. Patient was on the ventilator. Patient also was found to be esophagitis, had a septic shock, and also had acute tubular necrosis. Patient also GI bleed with multiple blood transfusions. No source of bleeding was found. Patient also had thoracentesis for pleural effusion. PEG tube was placed. About a month ago patient was here for UTI and cystitis. On the last admission patient is found unresponsive at home. Found to have both aspiration pneumonia and possible UTI. Patient had to be intubated. On the last admission patient failed his swallowing exam. Has 2 feeding was being done. Patient had an IV access to the right groin. Patient at the [facility] complaint of pain in the right groin that was progressive. Admitted for the same. Found to have a pseudoaneurysm of the right femoral artery. Patient received 3 units of blood. Was extubated. Status post repair of the pseudoaneurysm. Today-getting tube feeding. Remains nothing by mouth. Had multiple ectopics. 6 beat run of nonsustained V. tach. Otherwise sitting up comfortable. Does not remember his last bowel movement 10/22/2018 Patient is status post right femoral pseudoaneurysm repair postoperative day 3. Complaints of right groin but improving. PT OT was consulted. Hemoglobin 7.7 down from 7.9 yestersay. creatinine 0.73, leukocytosis improved to 11.2 10/23/2018 Patient says that he is feeling better today. Still having swelling as well as scrotal swelling. Patient is on ALBERT drain. Patient was transferred to chair with support. Otherwise denied any complaints of chest pain or shortness of breath. Patient is on tube feeding. We will reduce IV fluids due to worsening scrotal swelling. N hemoglobin 8.1 10/24/2018 Patient is awake alert and oriented. Leg swelling and scrotal swelling is improving. ALBERT drain in place. His. No nausea vomiting or abdominal pain. Tolerating tube feeding. No chest pain or shortness breath. Increase activity. Hemoglobin 7.8 and creatinine 1.62 Review of systems: Was done for constitutional, cardiovascular, GI, pulmonary. r elevant finding as above Current medications reviewed. Objective - Vital Signs Vital signs: Vital Signs Temp 97.9 F 10/24/18 08:00 Pulse 104 H 10/24/18 20:17 Resp 19 10/24/18 20:17 BP 137/73 10/24/18 16:00 Pulse Ox 95 10/24/18 16:10 Intake & Output 10/24/18 10/24/18 10/25/18 06:59 18:59 06:59 Intake Total 500 175 Output Total 700 500 Balance -200 -325 Weight 65 kg Intake: IV 500 100 Sodium Chloride 0.9% 1, 500 100 000 ml @ 50 mls/hr IV . Q20H [facility] Rx#:[id number] Tube Feeding 45 Other 30 Output: Urine 700 500 Other: Voiding Method Urinal Urinal - Exam GENERAL: Propped up in bed. EYES: Pupils equal. Conjunctiva pale HEENT: External appearance of nose and ears normal, oral cavity dry. NECK: JVD not raised; masses not palpable. HEART: First and second heart sounds are normal; no edema. LUNGS: Respiratory rate normal; decreased breath sounds. ABDOMEN: [Soft, nontender, liver spleen not palpable, no masses palpable, dressing over the right groin., PEG tube in place , ALBERT drain with small amount of serosanguineous scrotal swelling.. PSYCH: Alert and oriented x3; mood and affect anxiousl. - Labs CBC & Chem 7: 10/24/18 05:22 10/24/18 05:22 Labs: Abnormal Lab Results - Last 24 Hours (Table) 10/24/18 10/24/18 Range/Units 05:22 05:22 WBC 11.4 H (3.8-10.6) k/uL RBC 2.51 L (4.30-5.90) m/uL Hgb 7.8 L (13.0-17.5) gm/dL Hct 23.8 L (39.0-53.0) % RDW 21.4 H (11.5-15.5) % Chloride 111 H (98-107) mmol/L Carbon Dioxide 20 L (22-30) mmol/L BUN 26 H (9-20) mg/dL Creatinine 1.62 H (0.66-1.25) mg/dL Calcium 7.3 L (8.4-10.2) mg/dL Microbiology - Last 24 Hours (Table) 10/19/18 08:22 Blood Culture - Preliminary Blood No Growth after 120 hours Assessment and Plan Assessment: -Pseudoaneurysm of the right femoral arteryat IV access site with blood leakage now surgically repaired -Acute blood loss anemia as expected from surgery patient did require 3 units of blood. hb 7.7 --pneumonia suspected aspiration pneumonia, causing sepsis from staph aureus , from last admission, continue antibiotics -Chronic esophagitis -PEG tube, chronic -Hypothyroid -Chronic kidney disease stage III from nephrosclerosis at baseline -Anemia of chronic kidney disease -Anemia from recent GI bleed exact source unknown -Acute renal failure from acute tubal necrosis from underlying sepsis, some improvement -Dysphagia, showed gross silent aspiration. By MBS. Patient to repeat swallowing exam down the road -Antibiotic associated diarrhea, on last admission. Responded well to Metamucil Plan: Patient has been okayed for activity per vascular surgery. Physical therapy con sulted. For constipation will give laxatives. Discussed with nurse. Patient to be moved out of ICU. Cardiology consulted. They increased the dose of metoprolol to 75 mg twice a day Time with Patient: Greater than 30
[2018-10-25] MEDS: HYDROmorphone 0.5 MG/0.5 ML SYRINGE IVP PRN ×5 (02:56→19:39)
[2018-10-25] MEDS: PANTOPRAZOLE SODIUM 40 MG GRANULE PKT PEG/G-TUBE SCH ×2 (06:36→18:28)
[2018-10-25] MEDS: IPRATROPIUM-ALBUTEROL 3 ML NEB INHALATION SCH ×4 (08:01→19:47)
[2018-10-25] MEDS: METOPROLOL TARTRATE 25 MG TAB PEG/G-TUBE SCH ×2 (08:48→19:39)
[2018-10-25] MEDS: AMOXIC-POT CLAV 875-125MG 1 EACH TAB PEG/G-TUBE SCH ×2 (08:48→19:39)
[2018-10-25] MEDS: SODIUM BICARBONATE TAB 650 MG TAB PEG/G-TUBE SCH ×2 (08:48→19:39)
[2018-10-25] MEDS: ASPIRIN 81 MG PEG/G-TUBE SCH (08:48)
[2018-10-25] MEDS: PSYLLIUM HUSK 100% 6 GM PACKET PO SCH ×2 (08:48→19:41)
[2018-10-25] MEDS: FERROUS SULFATE 325 MG TAB PO SCH (08:49)
[2018-10-25] MEDS: LEVOTHYROXINE 25 MCG TAB PEG/G-TUBE SCH (08:49)
[2018-10-25] MEDS: MAGNESIUM OXIDE 400 MG TAB PEG/G-TUBE SCH (08:49)
[2018-10-25] MEDS: amLODIPine 10 MG TAB PEG/G-TUBE SCH (08:49)
--- NOTE | 2018-10-25 09:44 | P.PN ---
Subjective Pt s/e. Still with right groin/ scrotum pain. No issues per nursing. ALBERT was removed. Urostomy bag intact without any further drainage Objective - Vital Signs Vital signs: Vital Signs Temp 98.7 F 10/25/18 04:00 Pulse 100 10/25/18 08:11 Resp 20 10/25/18 04:00 BP 139/75 10/25/18 04:00 Pulse Ox 92 L 10/25/18 04:00 Intake & Output 10/24/18 10/25/18 10/25/18 18:59 06:59 18:59 Intake Total 175 245 Output Total 500 400 Balance -325 -155 Weight 64.7 kg Intake: IV 100 200 Sodium Chloride 0.9% 1, 100 200 000 ml @ 50 mls/hr IV . Q20H [facility] Rx#:[id number] Tube Feeding 45 45 Other 30 Output: Urine 500 400 Other: Voiding Method Urinal Urinal # Bowel Movements 1 - Exam NAD, resting in bed comfortably No resp distress heart regular Abd soft R going c/d/i. Urostomy bag with minimal serosanguineous output - Labs CBC & Chem 7: 10/24/18 05:22 10/24/18 05:22 Labs: Microbiology - Last 24 Hours (Table) 10/19/18 08:22 Blood Culture - Preliminary Blood No Growth after 120 hours Assessment and Plan Assessment: POD #6 right femoral artery repair Acute blood loss anemia secondary to PSA and repair - stable. Right femoral artery pseudoaneurysm Chronic kidney disease, stage III Recent hospital admission for sepsis Hypertension History of alcohol abuse Hypothyroidism Chronic respiratory insufficiency, histories of pneumonia, currently on oxygen per nasal cannula Plan: Increase activity as tolerated. Trial removal of urostomy bag, dressing changes as needed. PT/OT. DC planning.
[2018-10-25] MEDS: SODIUM CHLORIDE 0.9% 1,000 ML IV SCH (18:28)
[2018-10-25] MEDS: ATORVASTATIN 20 MG TAB PEG/G-TUBE SCH (19:39)
--- NOTE | 2018-10-25 23:32 | P.PN ---
Subjective Progress Note Date: 10/25/18 Principal diagnosis: Right femoral pseudoaneurysm This is a 68-year-old patient who was just discharged from the hospital on October 17 following admission for aspiration pneumonia. Patient was here in August of this year. Had a rather prolonged admission. Was then treated for pneumonia and metabolic encephalopathy. Patient was on the ventilator. Patient also was found to be esophagitis, had a septic shock, and also had acute tubular necrosis. Patient also GI bleed with multiple blood transfusions. No source of bleeding was found. Patient also had thoracentesis for pleural effusion. PEG tube was placed. About a month ago patient was here for UTI and cystitis. On the last admission patient is found unresponsive at home. Found to have both aspiration pneumonia and possible UTI. Patient had to be intubated. On the last admission patient failed his swallowing exam. Has 2 feeding was being done. Patient had an IV access to the right groin. Patient at the [facility] complaint of pain in the right groin that was progressive. Admitted for the same. Found to have a pseudoaneurysm of the right femoral artery. Patient received 3 units of blood. Was extubated. Status post repair of the pseudoaneurysm. Today-getting tube feeding. Remains nothing by mouth. Had multiple ectopics. 6 beat run of nonsustained V. tach. Otherwise sitting up comfortable. Does not remember his last bowel movement 10/22/2018 Patient is status post right femoral pseudoaneurysm repair postoperative day 3. Complaints of right groin but improving. PT OT was consulted. Hemoglobin 7.7 down from 7.9 yestersay. creatinine 0.73, leukocytosis improved to 11.2 10/23/2018 Patient says that he is feeling better today. Still having swelling as well as scrotal swelling. Patient is on ALBERT drain. Patient was transferred to chair with support. Otherwise denied any complaints of chest pain or shortness of breath. Patient is on tube feeding. We will reduce IV fluids due to worsening scrotal swelling. N hemoglobin 8.1 10/24/2018 Patient is awake alert and oriented. Leg swelling and scrotal swelling is improving. ALBERT drain in place. His. No nausea vomiting or abdominal pain. Tolerating tube feeding. No chest pain or shortness breath. Increase activity. Hemoglobin 7.8 and creatinine 1.62 10/25/2018 Patient is still complaining of left groin pain. ALBERT drain was removed. Scrotal swelling is improving. No complaints of chest pain or shortness of breath. No nausea vomiting. Tolerating tube feeding. Urostomy tube in place. Anticipate discharged to rehab in next 24 hours. Review of systems: Was done for constitutional, cardiovascular, GI, pulmonary. relevant finding as above Current medications reviewed. Objective - Vital Signs Vital signs: Vital Signs Temp 98.2 F 10/25/18 08:00 Pulse 86 10/25/18 11:50 Resp 20 10/25/18 08:00 BP 138/79 10/25/18 08:00 Pulse Ox 93 L 10/25/18 08:00 Intake & Output 10/24/18 10/25/18 10/25/18 18:59 06:59 18:59 Intake Total 175 245 290 Output Total 500 400 400 Balance -325 -155 -110 Weight 64.7 kg Intake: IV 100 200 200 Sodium Chloride 0.9% 1, 100 200 200 000 ml @ 50 mls/hr IV . Q20H [facility] Rx#:[id number] Tube Feeding 45 45 90 Other 30 Output: Urine 500 400 400 Other: Voiding Method Urinal Urinal Urinal # Voids 1 # Bowel Movements 1 - Exam GENERAL: Propped up in bed. EYES: Pupils equal. Conjunctiva pale HEENT: External appearance of nose and ears normal, oral cavity dry. NECK: JVD not raised; masses not palpable. HEART: First and second heart sounds are normal; no edema. LUNGS: Respiratory rate normal; decreased breath sounds. ABDOMEN: [Soft, nontender, liver spleen not palpable, no masses palpable, dressing over the right groin., PEG tube in place , ALBERT drain with small amount of serosanguineous scrotal swelling.. PSYCH: Alert and oriented x3; mood and affect anxiousl. - Labs CBC & Chem 7: 10/24/18 05:22 10/24/18 05:22 Labs: Microbiology - Last 24 Hours (Table) 10/19/18 08:22 Blood Culture - Final Blood No Growth after 144 hours Assessment and Plan Assessment: -Pseudoaneurysm of the right femoral arteryat IV access site with blood leakage now surgically repaired -Acute blood loss anemia as expected from surgery patient did require 3 units of blood. hb 7.7 --pneumonia suspected aspiration pneumonia, causing sepsis from staph aureus , from last admission, continue antibiotics -Chronic esophagitis -PEG tube, chronic -Hypothyroid -Chronic kidney disease stage III from nephrosclerosis at baseline -Anemia of chronic kidney disease -Anemia from recent GI bleed exact source unknown -Acute renal failure from acute tubal necrosis from underlying sepsis, some improvement -Dysphagia, showed gross silent aspiration. By MBS. Patient to repeat swallowing exam down the road -Antibiotic associated diarrhea, on last admission. Responded well to Metamucil Plan: Patient has been okayed for activity per vascular surgery. Physical therapy consulted. For constipation will give laxatives. Discussed with nurse. Patient to be moved out of ICU. Cardiology consulted. They increased the dose of metoprolol to 75 mg twice a day Time with Patient: Greater than 30
[2018-10-26] MEDS: HYDROmorphone 0.5 MG/0.5 ML SYRINGE IVP PRN ×6 (00:51→21:04)
[2018-10-26] MEDS: PANTOPRAZOLE SODIUM 40 MG GRANULE PKT PEG/G-TUBE SCH ×2 (06:32→17:33)
--- NOTE | 2018-10-26 07:15 | P.PN ---
Progress Note - Text Progress Note Date: 10/26/18 for documentation purposes,patient had mssa pneumonia and probably chronic diastolic chf,unable to determine with certainty
[2018-10-26 07:43] LABS: Anisocytosis Moderate; Basophils % (A) 0 %; Eosinophils # (A) 0.2 k/uL (0-0.7); Eosinophils % (A) 2 %; HCT 21.6 % (39.0-53.0); Hypochromasia Marked; Lymphocytes # (A) 0.9 k/uL (1.0-4.8); Lymphocytes % (A) 9 %; MCH 30.3 pg (25.0-35.0); MCHC 31.5 g/dL (31.0-37.0); MCV 96.1 fL (80.0-100.0); Macrocytosis Slight; Mean Platelet Volume 8.3; Monocytes # (A) 0.7 k/uL (0-1.0); Monocytes % (A) 7 %; Neutrophils % (A) 80 %; Platelet Count 383 k/uL (150-450); Poikilocytosis Slight; RBC 2.25 m/uL (4.30-5.90); RDW 20.9 % (11.5-15.5); WBC 9.9 k/uL (3.8-10.6)
[2018-10-26 07:45] LABS: Calcium 7.5 mg/dL (8.4-10.2); Potassium 3.5 mmol/L (3.5-5.1)
[2018-10-26 07:58] LABS: HGB 6.8 gm/dL (13.0-17.5)
[2018-10-26] MEDS: IPRATROPIUM-ALBUTEROL 3 ML NEB INHALATION SCH ×4 (08:25→19:15)
[2018-10-26] MEDS: FERROUS SULFATE 325 MG TAB PO SCH (10:17)
[2018-10-26] MEDS: ASPIRIN 81 MG PEG/G-TUBE SCH (10:17)
[2018-10-26] MEDS: LEVOTHYROXINE 25 MCG TAB PEG/G-TUBE SCH (10:17)
[2018-10-26] MEDS: SODIUM BICARBONATE TAB 650 MG TAB PEG/G-TUBE SCH ×2 (10:17→20:16)
[2018-10-26] MEDS: METOPROLOL TARTRATE 25 MG TAB PEG/G-TUBE SCH ×2 (10:17→20:16)
[2018-10-26] MEDS: PSYLLIUM HUSK 100% 6 GM PACKET PO SCH ×2 (10:18→20:16)
[2018-10-26] MEDS: amLODIPine 10 MG TAB PEG/G-TUBE SCH (10:24)
[2018-10-26] MEDS: MAGNESIUM OXIDE 400 MG TAB PEG/G-TUBE SCH (10:24)
[2018-10-26] MEDS: POTASSIUM BICARBONATE/CIT AC 20 MEQ TABLET.EFF NG-TUBE SCH ×2 (10:53→11:54)
[2018-10-26] MEDS: SODIUM CHLORIDE 0.9% 1,000 ML IV SCH (14:50)
--- NOTE | 2018-10-26 17:06 | P.PN ---
Subjective Pt s/e. Still with right groin/ scrotum pain. No issues per nursing. ALBERT was removed. Urostomy bag intact without any further drainage. Nursing shift today states she has not emptied that yet today. Did have anemia on labs this morning of 6.8, receiving blood at this time Objective - Vital Signs Vital signs: Vital Signs Temp 97 F L 10/26/18 16:55 Pulse 89 10/26/18 16:55 Resp 16 10/26/18 16:55 BP 129/69 10/26/18 16:55 Pulse Ox 96 10/26/18 15:10 Intake & Output 10/25/18 10/26/18 10/26/18 18:59 06:59 18:59 Intake Total 535 545 445 Output Total 860 445 300 Balance -325 100 145 Weight 64.3 kg Intake: IV 400 500 Sodium Chloride 0.9% 1, 400 500 000 ml @ 50 mls/hr IV . Q20H [facility] Rx#:[id number] Tube Feeding 135 45 135 Blood Product 310 Rc As-1 Unit 310 [id number] Output: Urine 860 445 300 Other: Voiding Method Urinal Urinal Urinal # Voids 1 2 - Exam NAD, resting in bed comfortably No resp distress heart regular Abd soft R going c/d/i. Right lower extremity edema as previous Urostomy bag with minimal serosanguineous output - Labs CBC & Chem 7: 10/26/18 05:27 10/26/18 05:27 Labs: Abnormal Lab Results - Last 24 Hours (Table) 10/19/18 10/26/18 10/26/18 Range/Units 13:13 05:27 05:27 RBC 2.25 L (4.30-5.90) m/uL Hgb 6.8 L* (13.0-17.5) gm/dL Hct 21.6 L (39.0-53.0) % RDW 20.9 H (11.5-15.5) % Neutrophils # 8.0 H (1.3-7.7) k/uL Lymphocytes # 0.9 L (1.0-4.8) k/uL Chloride 108 H (98-107) mmol/L BUN 29 H (9-20) mg/dL Creatinine 1.78 H (0.66-1.25) mg/dL Calcium 7.5 L (8.4-10.2) mg/dL Crossmatch See Detail 10/26/18 Range/Units 08:57 RBC (4.30-5.90) m/uL Hgb (13.0-17.5) gm/dL Hct (39.0-53.0) % RDW (11.5-15.5) % Neutrophils # (1.3-7.7) k/uL Lymphocytes # (1.0-4.8) k/uL Chloride (98-107) mmol/L BUN (9-20) mg/dL Creatinine (0.66-1.25) mg/dL Calcium (8.4-10.2) mg/dL Crossmatch See Detail Assessment and Plan Assessment: POD #7 right femoral artery repair Acute blood loss anemia secondary to PSA and repair - stable. Right femoral artery pseudoaneurysm Chronic kidney disease, stage III Recent hospital admission for sepsis Hypertension History of alcohol abuse Hypothyroidism Chronic respiratory insufficiency, histories of pneumonia, currently on oxygen per nasal cannula Plan: Increase activity as tolerated. Trial removal of urostomy bag, dressing changes as needed. Transfuse blood as needed PT/OT. DC planning.
[2018-10-26] MEDS: DARBEPOETIN ALFA 40 MCG/0.4 ML SYRINGE SQ SCH (18:57)
[2018-10-26 19:45] VITALS: RESP 18
[2018-10-26] MEDS: ATORVASTATIN 20 MG TAB PEG/G-TUBE SCH (20:16)
--- NOTE | 2018-10-26 23:18 | P.PN ---
Subjective Progress Note Date: 10/26/18 Principal diagnosis: Right femoral pseudoaneurysm This is a 68-year-old patient who was just discharged from the hospital on October 17 following admission for aspiration pneumonia. Patient was here in August of this year. Had a rather prolonged admission. Was then treated for pneumonia and metabolic encephalopathy. Patient was on the ventilator. Patient also was found to be esophagitis, had a septic shock, and also had acute tubular necrosis. Patient also GI bleed with multiple blood transfusions. No source of bleeding was found. Patient also had thoracentesis for pleural effusion. PEG tube was placed. About a month ago patient was here for UTI and cystitis. On the last admission patient is found unresponsive at home. Found to have both aspiration pneumonia and possible UTI. Patient had to be intubated. On the last admission patient failed his swallowing exam. Has 2 feeding was being done. Patient had an IV access to the right groin. Patient at the [facility] complaint of pain in the right groin that was progressive. Admitted for the same. Found to have a pseudoaneurysm of the right femoral artery. Patient received 3 units of blood. Was extubated. Status post repair of the pseudoaneurysm. Today-getting tube feeding. Remains nothing by mouth. Had multiple ectopics. 6 beat run of nonsustained V. tach. Otherwise sitting up comfortable. Does not remember his last bowel movement 10/22/2018 Patient is status post right femoral pseudoaneurysm repair postoperative day 3. Complaints of right groin but improving. PT OT was consulted. Hemoglobin 7.7 down from 7.9 yestersay. creatinine 0.73, leukocytosis improved to 11.2 10/23/2018 Patient says that he is feeling better today. Still having swelling as well as scrotal swelling. Patient is on ALBERT drain. Patient was transferred to chair with support. Otherwise denied any complaints of chest pain or shortness of breath. Patient is on tube feeding. We will reduce IV fluids due to worsening scrotal swelling. N hemoglobin 8.1 10/24/2018 Patient is awake alert and oriented. Leg swelling and scrotal swelling is improving. ALBERT drain in place. His. No nausea vomiting or abdominal pain. Tolerating tube feeding. No chest pain or shortness breath. Increase activity. Hemoglobin 7.8 and creatinine 1.62 10/25/2018 Patient is still complaining of left groin pain. ALBERT drain was removed. Scrotal swelling is improving. No complaints of chest pain or shortness of breath. No nausea vomiting. Tolerating tube feeding. Urostomy tube in place. Anticipate discharged to rehab in next 24 hours. 10/26/2018 Patient is still complaining of left groin pain but is improving. Her scrotal s welling as well. No complaints of chest pain or shortness of breath. Hemoglobin is 6.8 today. Patient is undergoing 1 unit of transfusion. Vascular surgery is on board.Urostomy bag intact without any further drainage. Review of systems: Was done for constitutional, cardiovascular, GI, pulmonary. relevant finding as above Current medications reviewed. Objective - Vital Signs Vital signs: Vital Signs Temp 97.7 F 10/26/18 15:10 Pulse 79 10/26/18 16:09 Resp 16 10/26/18 15:10 BP 132/73 10/26/18 15:10 Pulse Ox 96 10/26/18 15:10 Intake & Output 10/25/18 10/26/18 10/26/18 18:59 06:59 18:59 Intake Total 535 545 135 Output Total 860 445 300 Balance -325 100 -165 Weight 64.3 kg Intake: IV 400 500 Sodium Chloride 0.9% 1, 400 500 000 ml @ 50 mls/hr IV . Q20H [facility] Rx#:[id number] Tube Feeding 135 45 135 Blood Product 0 Rc As-1 Unit 0 [id number] Output: Urine 860 445 300 Other: Voiding Method Urinal Urinal Urinal # Voids 1 2 - Exam GENERAL: Propped up in bed. EYES: Pupils equal. Conjunctiva pale HEENT: External appearance of nose and ears normal, oral cavity dry. NECK: JVD not raised; masses not palpable. HEART: First and second heart sounds are normal; no edema. LUNGS: Respiratory rate normal; decreased breath sounds. ABDOMEN: [Soft, nontender, liver spleen not palpable, no masses palpable, dressing over the right groin., PEG tube in place , ALBERT drain with small amount of serosanguineous scrotal swelling.. PSYCH: Alert and oriented x3; mood and affect anxiousl. - Labs CBC & Chem 7: 10/26/18 05:27 10/26/18 05:27 Labs: Abnormal Lab Results - Last 24 Hours (Table) 10/19/18 10/26/18 10/26/18 Range/Units 13:13 05:27 05:27 RBC 2.25 L (4.30-5.90) m/uL Hgb 6.8 L* (13.0-17.5) gm/dL Hct 21.6 L (39.0-53.0) % RDW 20.9 H (11.5-15.5) % Neutrophils # 8.0 H (1.3-7.7) k/uL Lymphocytes # 0.9 L (1.0-4.8) k/uL Chloride 108 H (98-107) mmol/L BUN 29 H (9-20) mg/dL Creatinine 1.78 H (0.66-1.25) mg/dL Calcium 7.5 L (8.4-10.2) mg/dL Crossmatch See Detail 10/26/18 Range/Units 08:57 RBC (4.30-5.90) m/uL Hgb (13.0-17.5) gm/dL Hct (39.0-53.0) % RDW (11.5-15.5) % Neutrophils # (1.3-7.7) k/uL Lymphocytes # (1.0-4.8) k/uL Chloride (98-107) mmol/L BUN (9-20) mg/dL Creatinine (0.66-1.25) mg/dL Calcium (8.4-10.2) mg/dL Crossmatch See Detail Assessment and Plan Assessment: -Pseudoaneurysm of the right femoral arteryat IV access site with blood leakage now surgically repaired -Acute blood loss anemia as expected from surgery patient did require 3 units of blood. hb 7.7 --pneumonia suspected aspiration pneumonia, causing sepsis from staph aureus , from last admission, continue antibiotics -Chronic esophagitis -PEG tube, chronic -Hypothyroid -Chronic kidney disease stage III from nephrosclerosis at baseline -Anemia of chronic kidney disease -Anemia from recent GI bleed exact source unknown -Acute renal failure from acute tubal necrosis from underlying sepsis, some improvement -Dysphagia, showed gross silent aspiration. By MBS. Patient to repeat swallowing exam down the road -Antibiotic associated diarrhea, on last admission. Responded well to Metamucil Plan: Patient has been okayed for activity per vascular surgery. Physical therapy consulted. For constipation will give laxatives. Discussed with nurse. Patient to be moved out of ICU. Cardiology consulted. They increased the dose of metoprolol to 75 mg twice a day Time with Patient: Greater than 30
[2018-10-27] MEDS: HYDROmorphone 0.5 MG/0.5 ML SYRINGE IVP PRN ×4 (00:33→12:16)
[2018-10-27] MEDS: PANTOPRAZOLE SODIUM 40 MG GRANULE PKT PEG/G-TUBE SCH ×2 (06:44→16:12)
[2018-10-27] MEDS: MAGNESIUM OXIDE 400 MG TAB PEG/G-TUBE SCH (08:31)
[2018-10-27] MEDS: amLODIPine 10 MG TAB PEG/G-TUBE SCH (08:31)
[2018-10-27] MEDS: ASPIRIN 81 MG PEG/G-TUBE SCH (08:31)
[2018-10-27] MEDS: SODIUM BICARBONATE TAB 650 MG TAB PEG/G-TUBE SCH (08:31)
[2018-10-27] MEDS: METOPROLOL TARTRATE 25 MG TAB PEG/G-TUBE SCH (08:31)
[2018-10-27] MEDS: LEVOTHYROXINE 25 MCG TAB PEG/G-TUBE SCH (08:31)
[2018-10-27] MEDS: FERROUS SULFATE 325 MG TAB PO SCH (08:31)
[2018-10-27] MEDS: SODIUM CHLORIDE 0.9% 1,000 ML IV SCH (08:32)
[2018-10-27] MEDS: PSYLLIUM HUSK 100% 6 GM PACKET PO SCH (08:35)
[2018-10-27] MEDS: IPRATROPIUM-ALBUTEROL 3 ML NEB INHALATION SCH ×3 (08:53→16:21)
[2018-10-27 12:25] VITALS: BP 149/72; TEMP 98.5
[2018-10-27 12:28] LABS: Anisocytosis Slight; Basophils # (A) 0.1 k/uL (0-0.2); Basophils % (A) 1 %; Eosinophils # (A) 0.3 k/uL (0-0.7); Eosinophils % (A) 3 %; HCT 28.8 % (39.0-53.0); Hypochromasia Moderate; Lymphocytes # (A) 0.9 k/uL (1.0-4.8); Lymphocytes % (A) 9 %; MCH 28.3 pg (25.0-35.0); MCHC 30.7 g/dL (31.0-37.0); Mean Platelet Volume 7.5; Monocytes # (A) 0.7 k/uL (0-1.0); Monocytes % (A) 7 %; Neutrophils # (A) 7.9 k/uL (1.3-7.7); Neutrophils % (A) 80 %; Platelet Count 474 k/uL (150-450); RBC 3.13 m/uL (4.30-5.90); RDW 17.4 % (11.5-15.5); WBC 9.9 k/uL (3.8-10.6)
[2018-10-27 12:30] LABS: HGB 8.8 gm/dL (13.0-17.5)
--- NOTE | 2018-10-27 15:03 | P.DS ---
Providers Date of admission: 10/19/18 12:01 Expected date of discharge: 10/27/18 Attending physician: John Elliott Consults: 10/19/18 11:38 Consult Physician Stat Consulting Provider: Marika Zhu Consult Reason/Comments: pseudoaneurysm Do you want consulting provider notified?: Yes 10/21/18 09:30 Consult Physician Urgent Consulting Provider: Angel Gardiner Consult Reason/Comments: 6 beat run of vtach Do you want consulting provider notified?: Already Contacted Primary care physician: Justice Silva Hospital Course: Discharge diagnosis -Pseudoaneurysm of the right femoral arteryat IV access site with blood leakage now surgically repaired -Acute blood loss anemia as expected from surgery patient did require 3 units of blood. hb 7.7 --pneumonia suspected aspiration pneumonia, causing sepsis from staph aureus , from last admission, continue antibiotics -Chronic esophagitis -PEG tube, chronic -Hypothyroid -Chronic kidney disease stage III from nephrosclerosis at baseline -Anemia of chronic kidney disease -Anemia from recent GI bleed exact source unknown -Acute renal failure from acute tubal necrosis from underlying sepsis, some improvement -Dysphagia, showed gross silent aspiration. By MBS. Patient to repeat swallowing exam down the road -Antibiotic associated diarrhea, on last admission. Responded well to Metamucil Hospital course This is a 68-year-old patient who was just discharged from the hospital on October 17 following admission for aspiration pneumonia. Patient was here in August of this year. Had a rather prolonged admission. Was then treated for pneumonia and metabolic encephalopathy. Patient was on the ventilator. Patient also was found to be esophagitis, had a septic shock, and also had acute tubular necrosis. Patient also GI bleed with multiple blood transfusions. No source of bleeding was found. Patient also had thoracentesis for pleural effusion. PEG tube was placed. About a month ago patient was here for UTI and cystitis. On the last admission patient is found unresponsive at home. Found to have both aspiration pneumonia and possible UTI. Patient had to be intubated. On the last admission patient failed his swallowing exam. Has 2 feeding was being done. Patient had an IV access to the right groin. Patient at the [facility] complaint of pain in the right groin that was progressive. Admitted for the same. Found to have a pseudoaneurysm of the right femoral artery. Patient received 3 units of blood. Was extubated. Status post repair of the pseudoaneurysm. Today-getting tube feeding. Remains nothing by mouth. Had multiple ectopics. 6 beat run of nonsustained V. tach. Otherwise sitting up comfortable. Does not remember his last bowel movement 10/22/2018 Patient is status post right femoral pseudoaneurysm repair postoperative day 3. Complaints of right groin but improving. PT OT was consulted. Hemoglobin 7.7 down from 7.9 yestersay. creatinine 0.73, leukocytosis improved to 11.2 10/23/2018 Patient says that he is feeling better today. Still having swelling as well as scrotal swelling. Patient is on ALBERT drain. Patient was transferred to chair with support. Otherwise denied any complaints of chest pain or shortness of breath. Patient is on tube feeding. We will reduce IV fluids due to worsening scrotal swelling. N hemoglobin 8.1 10/24/2018 Patient is awake alert and oriented. Leg swelling and scrotal swelling is improving. ALBERT drain in place. His. No nausea vomiting or abdominal pain. Tolerating tube feeding. No chest pain or shortness breath. Increase activity. Hemoglobin 7.8 and creatinine 1.62 10/25/2018 Patient is still complaining of left groin pain. ALBERT drain was removed. Scrotal swelling is improving. No complaints of chest pain or shortness of breath. No nausea vomiting. Tolerating tube feeding. Urostomy tube in place. Anticipate discharged to rehab in next 24 hours. 10/26/2018 Patient is still complaining of left groin pain but is improving. e scrotal swelling as well. No complaints of chest pain or shortness of breath. Hemoglobin is 6.8 today. Patient is undergoing 1 unit of transfusion. Vascular surgery is on board.Urostomy bag intact without any further drainage. 10/27/2017 Hemoglobin level improved today to 8.8 with blood transfusion of 4 units yesterday. Left groin pain and scrotal swelling is improving. Urostomy tube was removed by vascular surgery. Patient is stable to be discharged back to rehab. Continue with tube feeding. GENERAL: Awake alert and oriented 3. No apparent distress. EYES: Pupils equal. Conjunctiva pale HEENT: External appearance of nose and ears normal, oral cavity dry. NECK: JVD not raised; masses not palpable. HEART: First and second heart sounds are normal; no edema. LUNGS: Respiratory rate normal; decreased breath sounds. ABDOMEN: [Soft, nontender, liver spleen not palpable, no masses palpable, dressing over the right groin., PEG tube in place . Improving scrotal swell ing.. PSYCH: Alert and oriented x3; mood and affect anxiousl. Vital Signs 10/27/18 10/27/18 10/27/18 08:00 08:47 08:53 Temperature 98.4 F Pulse Rate 104 H Pulse Rate [ 98 98 Pulse Oximetery ] Respiratory 18 18 Rate Blood Pressure 141/74 [Right Arm] O2 Sat by Pulse 90 L Oximetry 10/27/18 10/27/18 10/27/18 09:09 12:23 12:40 Temperature 98.5 F Pulse Rate 100 88 Pulse Rate [ 89 Pulse Oximetery ] Respiratory 18 Rate Blood Pressure 149/72 [Right Arm] O2 Sat by Pulse 91 L Oximetry 10/27/18 12:53 Temperature Pulse Rate 88 Pulse Rate [ Pulse Oximetery ] Respiratory Rate Blood Pressure [Right Arm] O2 Sat by Pulse Oximetry Total time taken greater than 35 minutes including 18 minutes for counseling and coordination of care. Patient Condition at Discharge: Serious Plan - Discharge Summary Discharge Rx Participant: No New Discharge Prescriptions: New Metoprolol Tartrate [Lopressor] 75 mg PEG/G-TUBE BID tab HYDROcodone/APAP 5-325MG [[place] 5-325] 1 tab PO Q4HR PRN 3 Days #18 tab PRN Reason: Pain Continue amLODIPine BESYLATE [Norvasc] 10 mg PEG/G-TUBE DAILY Ipratropium-Albuterol Nebulize [Duoneb 0.5 mg-3 mg/3 ml Soln] 3 ml INHALATION RT-QID ampul.neb Magnesium Oxide [Mag-Ox] 400 mg PEG/G-TUBE DAILY Ergocalciferol (Vitamin D2) [Ergocalciferol] 66,000 unit PEG/G-TUBE TH Acetaminophen Tab [Tylenol] 650 mg PEG/G-TUBE Q6H PRN PRN Reason: Fever And/ Or Pain Epoetin Von [Procrit] 4,000 unit IJ MOWEFR Sodium Bicarbonate Tab 650 mg PEG/G-TUBE BID Psyllium Husk 100% [Metamucil Packet] 6 gm PEG/G-TUBE BID Omeprazole [PriLOSEC] 20 mg PEG/G-TUBE AC-BID Levothyroxine Sodium [Synthroid] 25 mcg PEG/G-TUBE DAILY Ferrous Sulfate [Feosol] 325 mg PEG/G-TUBE DAILY Atorvastatin [Lipitor] 20 mg PEG/G-TUBE HS Aspirin 81 mg PEG/G-TUBE DAILY Discontinued Metoprolol Tartrate [Lopressor] 50 mg PEG/G-TUBE BID Amoxicillin/Potassium Clav [Augmentin 875-125 Tablet] 1 tab PEG/G-TUBE Q12HR Discharge Medication List amLODIPine BESYLATE [Norvasc] 10 mg PEG/G-TUBE DAILY 06/29/18 [History] Ipratropium-Albuterol Nebulize [Duoneb 0.5 mg-3 mg/3 ml Soln] 3 ml INHALATION RT-QID ampul.neb 07/24/18 [Rx] Acetaminophen Tab [Tylenol] 650 mg PEG/G-TUBE Q6H PRN 08/31/18 [History] Ergocalciferol (Vitamin D2) [Ergocalciferol] 66,000 unit PEG/G-TUBE TH 08/31/18 [History] Magnesium Oxide [Mag-Ox] 400 mg PEG/G-TUBE DAILY 08/31/18 [History] Epoetin Von [Procrit] 4,000 unit IJ MOWEFR 10/06/18 [History] Aspirin 81 mg PEG/G-TUBE DAILY 10/19/18 [History] Atorvastatin [Lipitor] 20 mg PEG/G-TUBE HS 10/19/18 [History] Ferrous Sulfate [Feosol] 325 mg PEG/G-TUBE DAILY 10/19/18 [History] Levothyroxine Sodium [Synthroid] 25 mcg PEG/G-TUBE DAILY 10/19/18 [History] Omeprazole [PriLOSEC] 20 mg PEG/G-TUBE AC-BID 10/19/18 [History] Psyllium Husk 100% [Metamucil Packet] 6 gm PEG/G-TUBE BID 10/19/18 [History] Sodium Bicarbonate Tab 650 mg PEG/G-TUBE BID 10/19/18 [History] Metoprolol Tartrate [Lopressor] 75 mg PEG/G-TUBE BID tab 10/26/18 [Rx] HYDROcodone/APAP 5-325MG [Ogden 5-325] 1 tab PO Q4HR PRN 3 Days #18 tab 10/27/18 [Rx] Follow up Appointment(s)/Referral(s): Obed Smith DO [STAFF PHYSICIAN] - 1-2 days Marika Zhu DO [STAFF PHYSICIAN] - 1 Week Discharge Disposition: TRANSFER TO SNF/ECF
[2018-10-27] MEDS ORDERED: HYDROcodone/APAP 5-325MG 1 EACH TAB PO PRN (15:10)
[2018-10-27 16:36] VITALS: PULSE 104
== END 2018-10-27 19:45 | DRG 252 ==
LOC: EC 07:55 → 3SCARD 12:01 → 2SICU 18:07 → 3SCARD 10-26 06:21
PROVIDERS: ADMIT Hospitalist; ATTEND Hospitalist
PROC: 30233N1 Transfusion of Nonautologous Red Blood Cells into Peripheral Vein, Percutaneous Approach (ICD-10-PCS; 2018-10-19)
PROC: 04QK0ZZ Repair Right Femoral Artery, Open Approach (ICD-10-PCS; principal; 2018-10-19 16:05)
DX: T81.718A Complication of other artery following a procedure, not elsewhere classified, initial encounter (principal); N17.0 Acute kidney failure with tubular necrosis; J69.0 Pneumonitis due to inhalation of food and vomit; K52.1 Toxic gastroenteritis and colitis; I13.0 Hypertensive heart and chronic kidney disease with heart failure and stage 1 through stage 4 chronic kidney disease, or unspecified chronic kidney disease; I50.32 Chronic diastolic (congestive) heart failure; D62 Acute posthemorrhagic anemia; I47.1 Supraventricular tachycardia; I47.2 Ventricular tachycardia; I72.4 Aneurysm of artery of lower extremity; R13.10 Dysphagia, unspecified; T36.95XA Adverse effect of unspecified systemic antibiotic, initial encounter; E03.9 Hypothyroidism, unspecified; Z96.1 Presence of intraocular lens; D63.1 Anemia in chronic kidney disease; N18.3 Chronic kidney disease, stage 3 (moderate); K20.9 Esophagitis, unspecified; Z87.891 Personal history of nicotine dependence; Z80.3 Family history of malignant neoplasm of breast; Z80.8 Family history of malignant neoplasm of other organs or systems; Z87.440 Personal history of urinary (tract) infections; Z98.41 Cataract extraction status, right eye; Z98.42 Cataract extraction status, left eye; Z79.899 Other long term (current) drug therapy; Z79.82 Long term (current) use of aspirin; Z91.81 History of falling; Z93.1 Gastrostomy status; Z79.2 Long term (current) use of antibiotics; Z79.890 Hormone replacement therapy; Z87.01 Personal history of pneumonia (recurrent)
CPT/HCPCS: 36415; 36430; 80048; 80053; 83605; 83735; 84132; 85025; 85027; 85610; 85730; 86850; 86900; 86901; 86920; 87040; 88304; 93975; 94640; 96365; 96366; 96375; 99285

== ENCOUNTER 2019-06-18 10:23 | Inpatient (IN) | payer MEDICARE, OTHER ==
[2019-06-18] MEDS ORDERED: IPRATROPIUM-ALBUTEROL 3 ML NEB INHALATION STA (10:45)
[2019-06-18] MEDS ORDERED: FAMOTIDINE 20 MG/2 ML VIAL IV STA (10:45)
--- NOTE | 2019-06-18 10:50 | ED ---
General Adult HPI - General Chief complaint: Weakness Stated complaint: Failure to Thrive Time Seen by Provider: 06/18/19 10:34 Source: patient, EMS, RN notes reviewed Mode of arrival: EMS Limitations: no limitations - History of Present Illness Initial comments: Patient is a pleasant 69-year-old male presenting to the emergency department with cough and decreased appetite. Symptoms have been present for a couple of weeks. Patient has gone through 2 courses of antibiotics. Patient has decreased oral intake. Patient amiss to feeling dry. Patient is a poor historian and prefers not to answer questions. - Related Data Home Medications Medication Instructions Recorded Confirmed Magnesium Oxide [Mag-Ox] 400 mg PEG/G-TUBE DAILY 08/31/18 06/18/19 Epoetin Von [Procrit] 4,000 unit IJ TH 10/06/18 06/18/19 Aspirin 81 mg PEG/G-TUBE DAILY 10/19/18 06/18/19 Levothyroxine Sodium [Synthroid] 25 mcg PEG/G-TUBE DAILY 10/19/18 06/18/19 Omeprazole [PriLOSEC] 20 mg PEG/G-TUBE DAILY 10/19/18 06/18/19 Cholecalciferol [Vitamin D3 (25 8,000 unit PEG/G-TUBE DAILY 06/18/19 06/18/19 Mcg = 1000 Iu)] Doxycycline Hyclate 100 mg PEG/G-TUBE BID 06/18/19 06/18/19 Escitalopram [Lexapro] 10 mg PEG/G-TUBE DAILY 06/18/19 06/18/19 Gabapentin [Neurontin] 300 mg PEG/G-TUBE BID 06/18/19 06/18/19 HYDROcodone/APAP 10-325MG [Amenia 1 tab PEG/G-TUBE Q4HR PRN 06/18/19 06/18/19 10-325] Hydrocortisone Cream 1 applic TOPICAL BID 06/18/19 06/18/19 [Hydrocortisone 2.5% Cream] Ipratropium-Albuterol Nebulize 3 ml INHALATION RT-Q6H PRN 06/18/19 06/18/19 [Duoneb 0.5 mg-3 mg/3 ml Soln] Lisinopril [Zestril] 10 mg PEG/G-TUBE HS 06/18/19 06/18/19 Sodium Bicarbonate 650 mg PEG/G-TUBE Q8H 06/18/19 06/18/19 amLODIPine [Norvasc] 5 mg PEG/G-TUBE DAILY 06/18/19 06/18/19 guaiFENesin [Mucinex] 600 mg PEG/G-TUBE Q12H 06/18/19 06/18/19 methylPREDNISolone Dose Pack See Taper PEG/G-TUBE DAILY 06/18/19 06/18/19 [Medrol Dose Pack] Previous Rx's Medication Instructions Recorded Metoprolol Tartrate [Lopressor] 75 mg PEG/G-TUBE BID tab 10/26/18 Allergies Allergy/AdvReac Type Severity Reaction Status Date / Time No Known Allergies Allergy Verified 06/18/19 11:36 Review of Systems ROS Statement: Those systems with pertinent positive or pertinent negative responses have been documented in the HPI. ROS Other: All systems not noted in ROS Statement are negative. Constitutional: Denies: fever Eyes: Denies: eye pain ENT: Denies: ear pain Respiratory: Reports: cough, dyspnea Cardiovascular: Denies: chest pain Endocrine: Denies: fatigue Gastrointestinal: Denies: abdominal pain Genitourinary: Denies: dysuria Musculoskeletal: Denies: back pain Skin: Denies: rash Neurological: Denies: weakness Past Medical History Past Medical History: GI Bleed, Hypertension, Neurologic Disorder, Pneumonia, Renal Disease Additional Past Medical History / Comment(s): Hx calculus of bile duct, acute cholecystitis, pancreatitis. History of Any Multi-Drug Resistant Organisms: None Reported Past Surgical History: Orthopedic Surgery Additional Past Surgical History / Comment(s): cervical surgery, bilateral cataract removal with lens implants, umbilical hernia as a baby, bile duct stent, ERCP, C3-6 plate Past Anesthesia/Blood Transfusion Reactions: No Reported Reaction Past Psychological History: No Psychological Hx Reported Smoking Status: Former smoker Past Alcohol Use History: None Reported Past Drug Use History: None Reported - Past Family History Father Family Medical History: Cancer Additional Family Medical History / Comment(s): Melanoma Mother Family Medical History: Cancer Additional Family Medical History / Comment(s): Breast cancer. General Exam Limitations: no limitations General appearance: alert, in no apparent distress Head exam: Present: normocephalic Eye exam: Present: normal appearance, PERRL ENT exam: Present: mucous membranes dry Neck exam: Present: normal inspection Respiratory exam: Present: rales Cardiovascular Exam: Present: regular rate, normal rhythm GI/Abdominal exam: Present: soft. Absent: tenderness Extremities exam: Present: normal inspection Neurological exam: Present: alert, oriented X3, CN II-XII intact. Absent: motor sensory deficit Psychiatric exam: Present: normal affect, normal mood Skin exam: Present: normal color Course Vital Signs 06/18/19 06/18/19 06/18/19 10:27 10:31 11:11 Temperature 97.4 F L Pulse Rate 56 L 54 L Respiratory 16 16 Rate Blood Pressure 118/68 O2 Sat by Pulse 98 Oximetry 06/18/19 06/18/19 06/18/19 11:17 11:31 12:00 Temperature Pulse Rate 56 L 56 L 56 L Respiratory 16 16 Rate Blood Pressure 117/63 104/67 O2 Sat by Pulse 98 98 Oximetry 06/18/19 13:00 Temperature Pulse Rate 56 L Respiratory 16 Rate Blood Pressure 104/64 O2 Sat by Pulse 98 Oximetry EKG Findings - EKG Comments: EKG Findings:: Sinus bradycardia 54. DC 148. QRS 76. QT 502. QTC 476. Normal axis. Normal QRS. Nonspecific ST-T. Medical Decision Making - Medical Decision Making Patient reevaluated. Patient and family updated. Case discussed in detail with Dr. Centeno, covering for Dr. Elilott, who admits for Dr. Smith. - Lab Data Result diagrams: 06/18/19 10:34 06/18/19 10:34 Lab Results 06/18/19 06/18/19 06/18/19 Range/Units 10:34 10:34 10:34 WBC 12.5 H (3.8-10.6) k/uL RBC 3.48 L (4.30-5.90) m/uL Hgb 12.9 L (13.0-17.5) gm/dL Hct 42.7 (39.0-53.0) % MCV 122.8 H (80.0-100.0) fL MCH 37.1 H (25.0-35.0) pg MCHC 30.2 L (31.0-37.0) g/dL RDW 16.0 H (11.5-15.5) % Plt Count 167 (150-450) k/uL Neutrophils % 90 % Lymphocytes % 7 % Monocytes % 2 % Eosinophils % 0 % Basophils % 0 % Neutrophils # 11.3 H (1.3-7.7) k/uL Lymphocytes # 0.9 L (1.0-4.8) k/uL Monocytes # 0.3 (0-1.0) k/uL Eosinophils # 0.0 (0-0.7) k/uL Basophils # 0.0 (0-0.2) k/uL Manual Slide Review Performed Hypochromasia Marked Poikilocytosis (manual Present Anisocytosis (manual) Present Macrocytosis Marked A PT 11.6 (9.0-12.0) sec INR 1.1 (<1.2) APTT 27.4 (22.0-30.0) sec Sodium 141 (137-145) mmol/L Potassium 4.9 (3.5-5.1) mmol/L Chloride 111 H (98-107) mmol/L Carbon Dioxide 19 L (22-30) mmol/L Anion Gap 11 mmol/L BUN 34 H (9-20) mg/dL Creatinine 2.57 H (0.66-1.25) mg/dL Est GFR (CKD-EPI)AfAm 29 (>60 ml/min/1.73 sqM) Est GFR (CKD-EPI)NonAf 25 (>60 ml/min/1.73 sqM) Glucose 71 L (74-99) mg/dL Plasma Lactic Acid Fred (0.7-2.0) mmol/L Calcium 8.0 L (8.4-10.2) mg/dL Phosphorus 4.8 H (2.5-4.5) mg/dL Magnesium 1.7 (1.6-2.3) mg/dL Total Bilirubin 0.5 (0.2-1.3) mg/dL AST 52 (17-59) U/L ALT 22 (4-49) U/L Alkaline Phosphatase 204 H (38-126) U/L NT-Pro-B Natriuret Pep pg/mL Total Protein 6.8 (6.3-8.2) g/dL Albumin 2.8 L (3.5-5.0) g/dL TSH 3.160 (0.465-4.680) mIU/L Free T4 1.51 (0.78-2.19) ng/dL Free T3 pg/mL 1.6 L (2.8-5.3) pg/ml 06/18/19 06/18/19 Range/Units 10:34 10:34 WBC (3.8-10.6) k/uL RBC (4.30-5.90) m/uL Hgb (13.0-17.5) gm/dL Hct (39.0-53.0) % MCV (80.0-100.0) fL MCH (25.0-35.0) pg MCHC (31.0-37.0) g/dL RDW (11.5-15.5) % Plt Count (150-450) k/uL Neutrophils % % Lymphocytes % % Monocytes % % Eosinophils % % Basophils % % Neutrophils # (1.3-7.7) k/uL Lymphocytes # (1.0-4.8) k/uL Monocytes # (0-1.0) k/uL Eosinophils # (0-0.7) k/uL Basophils # (0-0.2) k/uL Manual Slide Review Hypochromasia Poikilocytosis (manual Anisocytosis (manual) Macrocytosis PT (9.0-12.0) sec INR (<1.2) APTT (22.0-30.0) sec Sodium (137-145) mmol/L Potassium (3.5-5.1) mmol/L Chloride (98-107) mmol/L Carbon Dioxide (22-30) mmol/L Anion Gap mmol/L BUN (9-20) mg/dL Creatinine (0.66-1.25) mg/dL Est GFR (CKD-EPI)AfAm (>60 ml/min/1.73 sqM) Est GFR (CKD-EPI)NonAf (>60 ml/min/1.73 sqM) Glucose (74-99) mg/dL Plasma Lactic Acid Fred 0.8 (0.7-2.0) mmol/L Calcium (8.4-10.2) mg/dL Phosphorus (2.5-4.5) mg/dL Magnesium (1.6-2.3) mg/dL Total Bilirubin (0.2-1.3) mg/dL AST (17-59) U/L ALT (4-49) U/L Alkaline Phosphatase (38-126) U/L NT-Pro-B Natriuret Pep 50183 pg/mL Total Protein (6.3-8.2) g/dL Albumin (3.5-5.0) g/dL TSH (0.465-4.680) mIU/L Free T4 (0.78-2.19) ng/dL Free T3 pg/mL (2.8-5.3) pg/ml - Radiology Data Radiology results: image reviewed (Chest x-ray does show some improvement in aeration of the lung bases. Atelectasis or scarring.) Disposition Clinical Impression: CHF (congestive heart failure) Disposition: ADMITTED IP TO THIS HOSP Is patient prescribed a controlled substance at d/c from ED?: No Referrals: Justice Silva MD [STAFF PHYSICIAN] - 1-2 days Decision Time: 13:29
[2019-06-18 10:59] LABS: Basophils % (A) 0 %; Eosinophils % (A) 0 %; HCT 42.7 % (39.0-53.0); HGB 12.9 gm/dL (13.0-17.5); Hypochromasia Marked; Lymphocytes # (A) 0.9 k/uL (1.0-4.8); Lymphocytes % (A) 7 %; MCH 37.1 pg (25.0-35.0); MCHC 30.2 g/dL (31.0-37.0); MCV 122.8 fL (80.0-100.0); Macrocytosis Marked; Mean Platelet Volume 8.8; Monocytes # (A) 0.3 k/uL (0-1.0); Monocytes % (A) 2 %; Neutrophils # (A) 11.3 k/uL (1.3-7.7); Neutrophils % (A) 90 %; Platelet Count 167 k/uL (150-450); RBC 3.48 m/uL (4.30-5.90); WBC 12.5 k/uL (3.8-10.6)
[2019-06-18 11:14] LABS: Albumin 2.8 g/dL (3.5-5.0); Magnesium 1.7 mg/dL (1.6-2.3); Phosphorus 4.8 mg/dL (2.5-4.5); Potassium 4.9 mmol/L (3.5-5.1); Total Bilirubin 0.5 mg/dL (0.2-1.3); Total Protein 6.8 g/dL (6.3-8.2)
[2019-06-18 11:21] LABS: INR 1.1 (<1.2); Partial Thromboplastin Time 27.4 sec (22.0-30.0); Prothrombin Time 11.6 sec (9.0-12.0)
[2019-06-18 11:32] LABS: T4, Free (Free Thyroxine) 1.51 ng/dL (0.78-2.19)
--- NOTE | 2019-06-18 11:35 | XR ---
EXAMINATION TYPE: XR chest 2V DATE OF EXAM: 06/18/2019 COMPARISON: Prior chest x-ray 10/14/2018 HISTORY: Weakness TECHNIQUE: Frontal and lateral views of the chest are obtained. FINDINGS: The patient is rotated and there are overlying cardiac leads and the patient is rotated. Po stop changes are noted to the cervical spine. Bone mineralization is reduced. There is improvement in the patchy density seen on prior exam in the right lower lobe, left lower lobe, no pneumothorax or p leural effusion. The cardiac silhouette size is within normal limits. The osseous structures are s table. IMPRESSION: Improvement in aeration at the lung bases, there may be subsegmental atelectatic changes or scarring, follow-up could BE performed to assess for stability.
[2019-06-18 12:18] LABS: Anisocytosis (M) Present; Poikilocytosis (M) Present
[2019-06-18] MEDS ORDERED: ASPIRIN 325 MG TAB PO STA (13:33)
[2019-06-18] MEDS ORDERED: FUROSEMIDE 10 MG/ML 4 ML VIAL IV SCH (13:45)
[2019-06-18 13:47] LABS: Appearance,Urine Cloudy (Clear); Bacteria,Urine Many /hpf; Bilirubin,Urine Negative (Negative); Blood,Urine Moderate (Negative); Color,Urine Yellow; Glucose,Urine (UA) Negative (Negative); Ketones,Urine 1+ (Negative); Leukocyte Esterase,Urine Large (Negative); Nitrite,Urine Negative (Negative); PH, Urine 5.5 (5.0-8.0); Protein,Urine 1+ (Negative); RBC,Urine 4 /hpf (0-5); Specific Gravity,Urine 1.016 (1.001-1.035); Squamous Epithelial Cell,Urine 2 /hpf (0-4); Urobilinogen,Urine <2.0 mg/dL (<2.0); WBC,Urine 63 /hpf (0-5)
[2019-06-18] MEDS ORDERED: IPRATROPIUM-ALBUTEROL 3 ML NEB INHALATION PRN (15:00)
--- NOTE | 2019-06-18 15:14 | P.HPIM ---
History of Present Illness Patient is a 69-year-old was sent in as patient has not been eating for last 3 days they believe patient may be dehydrated. Patient the doesn't like the food anymore for last 3 days because of which has not been eating. Patient denied any fever chills patient denied any dysuria superpubic pain patient was believed to have UTI because of abnormal urine and was subsequently admitted with Rocephin patient has elevated BNP because of which it was believe patient may have CHF although patient has chronically elevated BNP from R chronic kidney disease stage IV. Patient doesn't have any JVD patient denied any shortness of breath orthopnea paroxysmal nocturnal dyspnea patient is very thin built cachectic gentleman. Patient has a PEG tube patient had a stroke after which there PEG tube was placed and patient is off PEG tube and doesn't want any more PEG tube feedings. Patient appears to be clinically dry a bit. Review of Systems REVIEW OF SYSTEMS: CONSTITUTIONAL: No fever, no malaise, no fatigue. HEENT: No recent visual problems or hearing problems. Denied any sore throat. CARDIOVASCULAR: No chest pain, orthopnea, PND, no palpitations, no syncope. PULMONARY: No shortness of breath, no cough, no hemoptysis. GASTROINTESTINAL: No diarrhea, no nausea, no vomiting, no abdominal pain. NEUROLOGICAL: No headaches, no weakness, no numbness. HEMATOLOGICAL: Denies any bleeding or petechiae. GENITOURINARY: Denies any burning micturition, frequency, or urgency. MUSCULOSKELETAL/RHEUMATOLOGICAL: Denies any joint pain, swelling, or any muscle pain. ENDOCRINE: Denies any polyuria or polydipsia. The rest of the 14-point review of systems is negative. Past Medical History Past Medical History: Asthma, GI Bleed, Hypertension, Liver Disease, Neurologic Disorder, Pneumonia, Renal Disease Additional Past Medical History / Comment(s): Dysphagia, aspiration pneumonia/vented, peg tube placed but staff state with therapy pt recently able to take orals and they are just doing water flushes of peg [id number] also states past 1.5 weeks pt's oral intake has declined and he has refused to supplement with his peg tube-voices concern he will again lose ability to take orals, esophagitis, septic shock, pleural effusion with thoracentesis, pt wears oxygen ATC, GI bleed, calculus of bile duct/stented, acute cholecystitis, pancreatitis, R femoral pseudoaneurysm with acute blood loss anemia, CKD stage III with chronic anemia, nephrolithiasis, UTI, past ETOH abuse, alcoholic fatty liver, chronic generalized pain, muscle weakness, insomnia, protein calorie malnutrition, defiency of vitamis, thrombocytopenia, skin tear L buttock. History of Any Multi-Drug Resistant Organisms: None Reported Past Surgical History: Orthopedic Surgery Additional Past Surgical History / Comment(s): Peg tube, R femoral pseudoaneurysm repair, C3-6 cervical surgery/plate, bilateral cataract removal with lens implants, umbilical hernia as a baby, bile duct stent, ERCP, Past Anesthesia/Blood Transfusion Reactions: No Reported Reaction Smoking Status: Former smoker - Past Family History Father Family Medical History: Cancer Additional Family Medical History / Comment(s): Melanoma Mother Family Medical History: Cancer Additional Family Medical History / Comment(s): Breast cancer. Medications and Allergies Home Medications Medication Instructions Recorded Confirmed Type Magnesium Oxide [Mag-Ox] 400 mg PEG/G-TUBE DAILY 08/31/18 06/18/19 History Epoetin Von [Procrit] 4,000 unit IJ TH 10/06/18 06/18/19 History Aspirin 81 mg PEG/G-TUBE DAILY 10/19/18 06/18/19 History Levothyroxine Sodium [Synthroid] 25 mcg PEG/G-TUBE DAILY 10/19/18 06/18/19 History Omeprazole [PriLOSEC] 20 mg PEG/G-TUBE DAILY 10/19/18 06/18/19 History Metoprolol Tartrate [Lopressor] 75 mg PEG/G-TUBE BID tab 10/26/18 06/18/19 Rx Cholecalciferol [Vitamin D3 (25 8,000 unit PEG/G-TUBE DAILY 06/18/19 06/18/19 History Mcg = 1000 Iu)] Doxycycline Hyclate 100 mg PEG/G-TUBE BID 06/18/19 06/18/19 History Escitalopram [Lexapro] 10 mg PEG/G-TUBE DAILY 06/18/19 06/18/19 History Gabapentin [Neurontin] 300 mg PEG/G-TUBE BID 06/18/19 06/18/19 History HYDROcodone/APAP 10-325MG [Sims 1 tab PEG/G-TUBE Q4HR PRN 06/18/19 06/18/19 History 10-325] Hydrocortisone Cream 1 applic TOPICAL BID 06/18/19 06/18/19 History [Hydrocortisone 2.5% Cream] Ipratropium-Albuterol Nebulize 3 ml INHALATION RT-Q6H PRN 06/18/19 06/18/19 History [Duoneb 0.5 mg-3 mg/3 ml Soln] Lisinopril [Zestril] 10 mg PEG/G-TUBE HS 06/18/19 06/18/19 History Sodium Bicarbonate 650 mg PEG/G-TUBE Q8H 06/18/19 06/18/19 History amLODIPine [Norvasc] 5 mg PEG/G-TUBE DAILY 06/18/19 06/18/19 History guaiFENesin [Mucinex] 600 mg PEG/G-TUBE Q12H 06/18/19 06/18/19 History methylPREDNISolone Dose Pack See Taper PEG/G-TUBE DAILY 06/18/19 06/18/19 History [Medrol Dose Pack] Allergies Allergy/AdvReac Type Severity Reaction Status Date / Time No Known Allergies Allergy Verified 06/18/19 11:36 Physical Exam Vitals: Vital Signs Temp Pulse Resp BP Pulse Ox 06/18/19 14:19 58 L 20 107/68 98 06/18/19 13:00 56 L 16 104/64 98 06/18/19 12:00 56 L 16 104/67 98 06/18/19 11:31 56 L 16 117/63 98 06/18/19 11:17 56 L 06/18/19 11:11 54 L 06/18/19 10:31 16 06/18/19 10:27 97.4 F L 56 L 16 118/68 98 Intake and Output 06/18/19 06/18/19 06/18/19 06:59 14:59 22:59 Other: Weight 54.431 kg PHYSICAL EXAMINATION: GENERAL: The patient is alert and oriented x3, not in any acute distress. Well developed, well nourished. HEENT within built cachectic dry mucous membranes and dry skin HEENT: Pupils are round and equally reacting to light. EOMI. No scleral icterus. No conjunctival pallor. Normocephalic, atraumatic. No pharyngeal erythema. No thyromegaly. CARDIOVASCULAR: S1 and S2 present. No murmurs, rubs, or gallops. PULMONARY: Chest is clear to auscultation, no wheezing or crackles. ABDOMEN: Soft, nontender, nondistended, normoactive bowel sounds. No palpable organomegaly. PEG tube is without any infection MUSCULOSKELETAL: No joint swelling or deformity. EXTREMITIES: No cyanosis, clubbing, or pedal edema. A cyst in the right shoulder area NEUROLOGICAL: Gross neurological examination did not reveal any focal deficits. SKIN: No rashes. Results CBC & Chem 7: 06/18/19 10:34 06/18/19 10:34 Labs: Abnormal Lab Results - Last 24 Hours (Table) 06/18/19 06/18/19 06/18/19 Range/Units 10:34 10:34 13:30 WBC 12.5 H (3.8-10.6) k/uL RBC 3.48 L (4.30-5.90) m/uL Hgb 12.9 L (13.0-17.5) gm/dL MCV 122.8 H (80.0-100.0) fL MCH 37.1 H (25.0-35.0) pg MCHC 30.2 L (31.0-37.0) g/dL RDW 16.0 H (11.5-15.5) % Neutrophils # 11.3 H (1.3-7.7) k/uL Lymphocytes # 0.9 L (1.0-4.8) k/uL Macrocytosis Marked A Chloride 111 H (98-107) mmol/L Carbon Dioxide 19 L (22-30) mmol/L BUN 34 H (9-20) mg/dL Creatinine 2.57 H (0.66-1.25) mg/dL Glucose 71 L (74-99) mg/dL Calcium 8.0 L (8.4-10.2) mg/dL Phosphorus 4.8 H (2.5-4.5) mg/dL Alkaline Phosphatase 204 H (38-126) U/L Albumin 2.8 L (3.5-5.0) g/dL Free T3 pg/mL 1.6 L (2.8-5.3) pg/ml Urine Protein 1+ H (Negative) Urine Ketones 1+ H (Negative) Urine Blood Moderate H (Negative) Ur Leukocyte Esterase Large H (Negative) Urine WBC 63 H (0-5) /hpf Urine WBC Clumps Moderate H (None) /hpf Urine Bacteria Many H (None) /hpf Thrombosis Risk Factor Assmnt - Choose All That Apply Each Factor Represents 1 point: Heart failure (<1month), Serious lung disease incl. pneumonia (< 1month) Other Risk Factors: Yes Each Risk Factor Represents 2 Points: Age 61-74 years Other congenital or acquired thrombophilia - If yes, enter type in comment: No Thrombosis Risk Factor Assessment Total Risk Factor Score: 4 Thrombosis Risk Factor Assessment Level: Moderate Risk Assessment and Plan Plan: -Dehydration which is a possibility as patient has not been eating or drinking patient will be started on water via PEG tube. IV fluids at 75 mL/h IV Lasix will be discontinued -Decreased appetite will try Marinol -Moderate to severe malnutrition severe cachexia as mentioned above will not try Marinol and deficits will see if that can submit his appetite but will also obtain evaluation by EP. -Possibility of UTI low is low and patient probably has a symptomatically bacteriuria not require any antibiotics -Rule out congestive heart failure exacerbation -Chronic kidney disease stage IV patient's baseline creatinine is around 2.5 patient present creatinine is around 2.5 -Right shoulder chronic cyst no further intervention at this time Anemia of chronic kidney disease DVT prophylaxis with subcutaneous heparin
[2019-06-18] MEDS ORDERED: SODIUM CHLORIDE 0.9% 1,000 ML IV SCH (15:15)
[2019-06-18] MEDS: SODIUM BICARBONATE TAB 650 MG TAB PEG/G-TUBE SCH ×2 (16:31→23:30)
[2019-06-18] MEDS: DRONABINOL 2.5 MG CAP PO SCH (16:32)
[2019-06-18] MEDS ORDERED: NITROGLYCERIN OINT 1 INCH/GM PACKET TOPICAL SCH (18:00)
[2019-06-18 20:01] LABS: Glucose,Whole Blood 68 mg/dL (75-99)
[2019-06-18] MEDS ORDERED: DEXTROSE 50% SYRINGE 50 ML IVP ONE (20:03)
[2019-06-18 20:32] LABS: Glucose,Whole Blood 120 mg/dL (75-99)
[2019-06-18] MEDS: DEXTROSE 5%-0.9% NACL 1,000 ML IV SCH (21:10)
[2019-06-18] MEDS: GABAPENTIN 300 MG CAP PEG/G-TUBE SCH (21:30)
[2019-06-18] MEDS: HYDROCORTISONE 1% CREAM 30 GM TUBE TOPICAL SCH (22:37)
[2019-06-18] MEDS: HEPARIN SODIUM,PORCINE 5,000 UNIT/ML 1 ML VIAL SQ SCH (22:37)
[2019-06-18] MEDS: METOPROLOL TARTRATE 25 MG TAB PEG/G-TUBE SCH (23:30)
[2019-06-19] MEDS: LEVOTHYROXINE 25 MCG TAB PEG/G-TUBE SCH (06:11)
[2019-06-19] MEDS: DRONABINOL 2.5 MG CAP PO SCH ×2 (06:11→17:40)
[2019-06-19] MEDS: HYDROcodone/APAP 10-325MG 1 EACH TAB PEG/G-TUBE PRN ×2 (06:11→16:55)
[2019-06-19] MEDS: SODIUM BICARBONATE TAB 650 MG TAB PEG/G-TUBE SCH ×3 (06:12→23:09)
[2019-06-19 06:26] LABS: Glucose,Whole Blood 110 mg/dL (75-99)
[2019-06-19] MEDS ORDERED: ASPIRIN 325 MG TAB PO SCH (09:00)
[2019-06-19] MEDS: PANTOPRAZOLE 40 MG/10 ML VIAL IV SCH (09:52)
[2019-06-19] MEDS: HEPARIN SODIUM,PORCINE 5,000 UNIT/ML 1 ML VIAL SQ SCH ×2 (09:52→20:46)
--- NOTE | 2019-06-19 10:46 | CONS ---
CONSULTATION This patient is seen in the consultation to rule out congestive cardiac failure. The patient's medical records reviewed and past medical records also reviewed. This patient was transferred from the [facility] with suspicion that he may be dehydrated. He was not taking any food for last 3 days and he has not been PE this patient has a PEG tube and is not able to tolerate any oral food. He denies any orthopnea or PND. Denies any chest pain. Patient has a chronically elevated BNP. His last BNP in the chart was 25,000. The patient denies any JVD, orthopnea or PND. Denies any fever or chills. The patient is off the back tube and does not want any active feeding. There is no definite prior history of myocardial infarction. PHYSICAL EXAMINATION: At present reveals a 69-year-old gentleman who is not in any acute distress the patient's blood pressure is 120/59 mmHg, heart rate is 65 per minute HEENT examination is negative heart first and second heart sounds are normal lungs are reveal bilateral scattered wheezes. Abdomen is negative extremities peripheral pulsations are not felt. Rest extremities peripheral pulsations are not felt the patient's creatinine is 2.57. Electrolytes are normal. LABORATORY DATA: Hemoglobin is 12.9, patient has a significant microcytosis. Chest x-ray does not show any significant left ventricular failure. Patient's BP. BNP level is 19,000. Previous BNP level was 25,000. FINAL IMPRESSION: 1. This patient is primarily admitted with not eating well and possible dehydration. Patient does have acute evidence of acute on chronic renal failure. There is no evidence of any overt left ventricular failure at present. 2. Patient has a chronically elevated BNP level. His last BNP in the chart is 25,000. We will obtain echo and Doppler study to assess the left ventricular systolic function. We will recommend nebulizer because of his bilateral wheezing. MMODL / IJN: [id number] /
[2019-06-19] MEDS: IPRATROPIUM-ALBUTEROL 3 ML NEB INHALATION SCH ×3 (11:51→20:40)
[2019-06-19] MEDS: METOPROLOL TARTRATE 25 MG TAB PEG/G-TUBE SCH ×2 (12:11→20:45)
[2019-06-19] MEDS: MAGNESIUM OXIDE 400 MG TAB PEG/G-TUBE SCH (12:11)
[2019-06-19] MEDS: ESCITALOPRAM 5 MG TAB PEG/G-TUBE SCH (12:11)
[2019-06-19] MEDS: amLODIPine 5 MG TAB PEG/G-TUBE SCH (12:11)
[2019-06-19] MEDS: ASPIRIN 81 MG PEG/G-TUBE SCH (12:12)
[2019-06-19] MEDS: GABAPENTIN 300 MG CAP PEG/G-TUBE SCH ×2 (12:12→20:45)
[2019-06-19] MEDS: DEXTROSE 5%-0.9% NACL 1,000 ML IV SCH ×2 (12:19→23:09)
[2019-06-19 14:16] LABS: Calcium 7.1 mg/dL (8.4-10.2)
[2019-06-19 14:18] LABS: Potassium 5.2 mmol/L (3.5-5.1)
[2019-06-19] MEDS: HYDROCORTISONE 1% CREAM 30 GM TUBE TOPICAL SCH ×2 (14:27→20:45)
[2019-06-19] MEDS: SODIUM CHLORIDE 0.9% 1,000 ML IV SCH ×2 (14:27→23:09)
--- NOTE | 2019-06-19 15:48 | CDI ---
Documentation Clarification Form Date: 06/19/2019 02:50:42 PM From: Malena Mancuso RN CCDS Admit Date: 06/18/2019 01:34:00 PM Patient Name: Twin Enamorado Visit Number: [id number] Discharge Date: ATTENTION: The Clinical Documentation Specialists (CDI) and [facility] Coding Staff appreciate your assistance in clarifying documentation. Please respond to the clarification below the line at the bottom and electronically sign. The CDI & [facility] Coding staff will review the response and follow-up if needed. Please note: Queries are made part of the Legal Health Record. If you have any questions, please contact the author of this message via ITS. Dr. Shrestha Thank you for documenting moderate to severe protein malnutrition. However, there needs to be more specificity. History/Risk Factors: 69-year-old female presents to the ED for not eating for the last three days. Medical history of Peg tube after Stroke and doesnt want any more Peg tube feedings. Dysphagia and Neurologic disorder. Clinical Indicators: Per the H&P Moderate to severe malnutrition severe cachexia Per the Nutrition Assessment 06/17 Severe protein calorie malnutrition stage II pressure ulcer on coccyx Lab findings: 06/17 Wbc 12.5, Neutrophils 11.3, Cr 2.57, Calcium 8.0, Phosphorus 4.8, Albumin 2.8, PBNP 13552, Vital Signs: 06/17 118/68 56 97.4 16 98% 3L Treatment: 06/17 Marinol 2.5mg po AC-BID shikha In your professional opinion, can you please clarify the malnutrition? Moderate malnutrition Severe malnutrition Other, please specify Unable to determine (Last Revision: July 2017) Documented in Progress note 06/[address] Shrestha moderate protein calorie malnutrition MTDD
--- NOTE | 2019-06-19 16:21 | CDI ---
Documentation Clarification Form Date: 06/19/2019 03:54:56 PM From: Malena Mancuso RN CCDS Admit Date: 06/18/2019 01:34:00 PM Patient Name: Twin Enamorado Visit Number: [id number] Discharge Date: ATTENTION: The Clinical Documentation Specialists (CDI) and [facility] Coding Staff appreciate your assistance in clarifying documentation. Please respond to the clarification below the line at the bottom and electronically sign. The CDI & [facility] Coding staff will review the response and follow-up if needed. Please note: Queries are made part of the Legal Health Record. If you have any questions, please contact the author of this message via ITS. Dr. Earl Esparza pressure ulcer was documented in the Nursing wound assessment 06/17 History/Risk Factors: 69-year-old male presents to the ED via EMS from [facility] for not eating for the last three days. Medical history patient had a stroke and has a peg tube. The patient has refused peg tube feedings. Clinical Indicators: Location: Coccyx Wound description: Stage II Pressure Ulcer, Length/cm 0.5, Width/cm 0.5, Jane- Wound excoriation, Jane wound color - Erythema, Dressing status - Dry & Intact, Treatment: Optifoam Gentle Liquitrap bordered 3x3 Elements for accurate and compliant documentation of an ulcer: *The location/laterality of the ulcer *Etiology (decubitus/pressure, diabetic, PVD) *Stage I-IV, Unstageable, Suspected Deep Tissue Injury (To the deepest stage) *If the ulcer was present at admission (POA) or occurred after admission In your professional opinion, can you please clarify the diagnosis, location, laterality and whether present on admission (POA): Stage 2 Pressure/Decubitus Ulcer POA (Partial thickness, loss of dermis, pink wound bed) Other condition, please specify Unable to determine Please indicate etiology of pressure ulcer (if known). (Last Revision: January 2017) Stage II decubitus ulcer-right buttock, POA MTDD
--- NOTE | 2019-06-19 17:33 | ECHOF ---
Referral Reason:chf MEASUREMENTS -------- HEIGHT: 172.7 cm WEIGHT: 50.8 kg BP: 120/59 RVIDd: 2.7 cm (< 3.3) IVSd: 1.3 cm (0.6 - 1.1) LVIDd: 4.3 cm (3.9 - 5.3) LVPWd: 1.2 cm (0.6 - 1.1) IVSs: 1.7 cm LVIDs: 3.2 cm LVPWs: 1.4 cm LA Diam: 3.4 cm (2.7 - 3.8) LAESV Index (A-L): 27.40 ml/m Ao Diam: 3.1 cm (2.0 - 3.7) AV Cusp: 2.2 cm (1.5 - 2.6) MV EXCURSION: 19.197 mm (> 18.000) MV EF SLOPE: 87 mm/s (70 - 150) EPSS: 0.5 cm MV E Juan Antonio: 0.96 m/s MV DecT: 212 ms MV A Juan Antonio: 1.06 m/s MV E/A Ratio: 0.90 RAP: 5.00 mmHg RVSP: 31.76 mmHg FINDINGS -------- Sinus rhythm. This was a technically good study. The left ventricular size is normal. There is mild concentric left ventricular hypertrophy. Overa ll left ventricular systolic function is normal with, an EF between 60 - 65 %. The right ventricle is normal in size. Normal LA size by volume 22+/-6 ml/m2. The right atrium is normal in size. Interatrial and interventricular septum intact. There is mild aortic valve sclerosis. Trace to mild aortic regurgitation. The mitral valve leaflets are mildly thickened. There is trace to mild mitral regurgitation. Mild tricuspid regurgitation present. Right ventricular systolic pressure is normal at < 35 mmHg. The pulmonic valve was not well visualized. The aortic root size is normal. There is no pericardial effusion. CONCLUSIONS -------- 1. Sinus rhythm. 2. This was a technically good study. 3. The left ventricular size is normal. 4. There is mild concentric left ventricular hypertrophy. 5. Overall left ventricular systolic function is normal with, an EF between 60 - 65 %. 6. The right ventricle is normal in size. 7. Normal LA size by volume 22+/-6 ml/m2. 8. The right atrium is normal in size. 9. Interatrial and interventricular septum intact. 10. There is mild aortic valve sclerosis. 11. Trace to mild aortic regurgitation. 12. The mitral valve leaflets are mildly thickened. 13. There is trace to mild mitral regurgitation. 14. Mild tricuspid regurgitation present. 15. Right ventricular systolic pressure is normal at < 35 mmHg. 16. The pulmonic valve was not well visualized. 17. The aortic root size is normal. 18. There is no pericardial effusion. [employer] SP[employer]ER: Vonda Alvarez RDCS
--- NOTE | 2019-06-19 23:22 | P.PN ---
Progress Note - Text Progress Note Date: 06/19/19 Presenting complaint: Decreased oral intake Interval history: Admitted with decreased oral intake. Chronic stable medical conditions include dysphagia, PEG tube, chronic esophagitis, home oxygen, CK-MB stage III with chronic anemia, kidney stones protein calorie malnutrition. History of smoking and alcoholism. Today-patient did intermittently choking on food. But gets really upset when told not to eat. Spoke to the speech therapist. Did not wish to see her anymore. Review of systems: Was done for constitutional, cardiovascular, GI, pulmonary. relevant finding as above On examination: VITAL SIGNS: 97.7, 75, 16, blood pressure 120/68, 97% on room air GENERAL APPEARANCE: BMI 17.1, laying in bed tired HEENT: Normal external appearance of nose and ear. Oral cavity normal EYES: Pupils equal. Conjunctiva pale. NECK: JVD not raised. Mass not palpable. RESPIRATORY: Respiratory effort increased, decreased breath sounds, some wheezing. CARDIOVASCULAR: First and second sounds normal. No edema. ABDOMEN: Soft. Liver and spleen not palpable. No tenderness. No mass palpable. PEG tube in place PSYCHIATRY: Alert and oriented x3. Mood and affect anxious. INVESTIGATIONS, reviewed in the clinical context: Potassium 5.2 bun 43 creatinine 2.64 Previous testing: UA positive White count 12.5 hemoglobin 12.9 potassium 4.9 bun 34 creatinine 2.57 Patient's creatinine was 1.78 on April 30 on May 14 it was 2.25 Assessment: -Acute kidney injury, possibly ATN, also from decreased oral intake -Hypokalemia from renal failure -Acute UTI from cystitis -Chronic kidney disease stage III from nephrosclerosis -Moderate protein calorie malnutrition with BMI of 17.1 -Chronic medical debility does use a wheelchair -Chronic esophagitis -Chronic dysphagia being further evaluated by speech therapist Plan: Continue with IV ceftriaxone, IV fluids. Speech therapist will again speak to the patient. Obtaining records from the [facility]. Care was discussed with the patient.
[2019-06-20] MEDS ORDERED: DEXTROSE 50% SYRINGE 50 ML IVP ONE ×2 (06:15→10:18)
[2019-06-20 06:16] LABS: Glucose,Whole Blood 62 mg/dL (75-99)
[2019-06-20] MEDS: LEVOTHYROXINE 25 MCG TAB PEG/G-TUBE SCH (06:18)
[2019-06-20] MEDS: DRONABINOL 2.5 MG CAP PO SCH ×2 (06:18→17:31)
[2019-06-20] MEDS: SODIUM BICARBONATE TAB 650 MG TAB PEG/G-TUBE SCH ×3 (06:18→23:03)
[2019-06-20] MEDS: HYDROcodone/APAP 10-325MG 1 EACH TAB PEG/G-TUBE PRN ×2 (06:22→17:30)
[2019-06-20 07:03] LABS: Glucose,Whole Blood 110 mg/dL (75-99)
[2019-06-20 07:04] LABS: Calcium 7.2 mg/dL (8.4-10.2); Potassium 4.7 mmol/L (3.5-5.1)
[2019-06-20] MEDS: IPRATROPIUM-ALBUTEROL 3 ML NEB INHALATION SCH ×4 (07:05→19:47)
[2019-06-20 07:13] LABS: HCT 34.5 % (39.0-53.0); HGB 10.5 gm/dL (13.0-17.5); Hypochromasia Marked; MCH 37.1 pg (25.0-35.0); MCHC 30.3 g/dL (31.0-37.0); MCV 122.4 fL (80.0-100.0); Macrocytosis Marked; Mean Platelet Volume 9.7; Platelet Count 141 k/uL (150-450); RBC 2.82 m/uL (4.30-5.90); RDW 15.6 % (11.5-15.5); WBC 12.4 k/uL (3.8-10.6)
[2019-06-20] MEDS: PANTOPRAZOLE 40 MG/10 ML VIAL IV SCH (09:21)
[2019-06-20] MEDS: HEPARIN SODIUM,PORCINE 5,000 UNIT/ML 1 ML VIAL SQ SCH ×2 (09:21→21:23)
[2019-06-20 10:07] LABS: Glucose,Whole Blood 65 mg/dL (75-99)
--- NOTE | 2019-06-20 10:39 | CDI ---
Documentation Clarification Form Date: 06/20/2019 10:23:02 AM From: Malena Mancuso RN CCDS Admit Date: 06/18/2019 01:34:00 PM Patient Name: Twin Enamorado Visit Number: [id number] Discharge Date: ATTENTION: The Clinical Documentation Specialists (CDI) and [facility] Coding Staff appreciate your assistance in clarifying documentation. Please respond to the clarification below the line at the bottom and electronically sign. The CDI & [facility] Coding staff will review the response and follow-up if needed. Please note: Queries are made part of the Legal Health Record. If you have any questions, please contact the author of this message via ITS. Dr. John Elliott The patient presented to the ED with a cough and not eating. History/Risk Factors: 69-year-old male presents to the ED for cough and decreased appetite. Medical History of GI Bleed, HTN, Neurologic Disorder, Stroke and Peg Tube. Tobacco use: per your progress note 06/18 history of smoking Home oxygen: per your progress note 06/18 home oxygen Clinical Indicators: Vital signs: 06/17 10:27 118/68 56 97.4 16 98% 3L nasal cannula Lung/Breathing assessment: 06/17 H&P Pulmonary: no shortness of breath, no cough, no hemoptysis. Treatment: Breathing tx Duoneb x1 then QID shikha and Q6H PRN, Oxygen via nasal cannula 3L In your professional opinion, can you please clarify if these findings signify one of the following conditions? Chronic Respiratory Failure Other Diagnosis, please specify Unable to determine Specificity: If known, further specify (if known): With hypercapnia? (pCO2 >50 and pH <7.35) With hypoxia? (pO2 <60 mm Hg or SpO2 <91% on room air) (Last Query Form Revision: December 2018) Possible chronic hypoxic respiratory failure MTDD
[2019-06-20 10:52] LABS: Glucose,Whole Blood 118 mg/dL (75-99)
[2019-06-20] MEDS ORDERED: DEXTROSE 10% IN WATER 500 ML in EMPTY BAG 1 BAG IV SCH (11:00)
[2019-06-20 12:00] LABS: Glucose,Whole Blood 104 mg/dL (75-99)
[2019-06-20] MEDS: GABAPENTIN 100 MG CAP PEG/G-TUBE SCH ×2 (12:51→21:22)
[2019-06-20] MEDS: ESCITALOPRAM 5 MG TAB PEG/G-TUBE SCH (12:51)
[2019-06-20] MEDS: ASPIRIN 81 MG PEG/G-TUBE SCH (12:52)
[2019-06-20] MEDS: MAGNESIUM OXIDE 400 MG TAB PEG/G-TUBE SCH (12:52)
[2019-06-20] MEDS: METOPROLOL TARTRATE 25 MG TAB PEG/G-TUBE SCH ×2 (12:53→21:23)
[2019-06-20] MEDS: amLODIPine 5 MG TAB PEG/G-TUBE SCH (12:53)
[2019-06-20] MEDS: HYDROCORTISONE 1% CREAM 30 GM TUBE TOPICAL SCH ×2 (12:54→21:23)
[2019-06-20 13:15] LABS: Glucose,Whole Blood 109 mg/dL (75-99)
[2019-06-20 15:02] LABS: Glucose,Whole Blood 81 mg/dL (75-99)
[2019-06-20 16:52] LABS: Glucose,Whole Blood 114 mg/dL (75-99)
--- NOTE | 2019-06-20 16:52 | P.PN ---
Progress Note - Text Progress Note Date: 06/20/19 Presenting complaint: Decreased oral intake Interval history: Admitted with decreased oral intake. Chronic stable medical conditions include dysphagia, PEG tube, chronic esophagitis, home oxygen, chronic kidney disease stage III with chronic anemia, kidney stones protein calorie malnutrition. History of smoking and alcoholism. Today-patient has been refusing PEG tube feeding. Somewhat irritated. Blood glucose dropped this morning. Started on hypoglycemia protocol. Review of systems: Was done for constitutional, cardiovascular, GI, pulmonary. relevant finding as above Active Medications Hydrocodone Bitart/Acetaminophen ([place] 10) 1 each PEG/G-TUBE Q6H PRN PRN Reason: Pain Last Admin: 06/19/19 16:55 Dose: 1 each Documented by: Albuterol/Ipratropium (Duoneb 0.5 Mg-3 Mg/3 Ml Soln) 3 ml INHALATION RT-QID [facility] Last Admin: 06/20/19 16:18 Dose: 3 ml Documented by: Amlodipine Besylate (Norvasc) 5 mg PEG/G-TUBE DAILY [facility] Last Admin: 06/20/19 12:53 Dose: 5 mg Documented by: Aspirin (Aspirin) 81 mg PEG/G-TUBE DAILY [facility] Last Admin: 06/20/19 12:52 Dose: 81 mg Documented by: Dronabinol (Marinol) 2.5 mg PO AC-BID [facility] Last Admin: 06/20/19 06:18 Dose: 2.5 mg Documented by: Escitalopram Oxalate (Lexapro) 10 mg PEG/G-TUBE DAILY [facility] Last Admin: 06/20/19 12:51 Dose: 10 mg Documented by: Gabapentin (Neurontin) 200 mg PEG/G-TUBE BID [facility] Last Admin: 06/20/19 12:51 Dose: 200 mg Documented by: Heparin Sodium (Porcine) (Heparin) 5,000 unit SQ Q12HR [facility] Last Admin: 06/20/19 09:21 Dose: 5,000 unit Documented by: Hydrocortisone (Hydrocortisone 1% Cream) 1 applic TOPICAL BID [facility] Last Admin: 06/20/19 12:54 Dose: Not Given Documented by: Ceftriaxone Sodium 1 gm/ (Sodium Chloride) 50 mls @ 100 mls/hr IVPB Q24H [facility] Last Admin: 06/20/19 14:18 Dose: 100 mls/hr Documented by: Dextrose/Water 500 ml/ IV (Solution) 500 mls @ 50 mls/hr IV .Q10H [facility] Last Admin: 06/20/19 11:10 Dose: 50 mls/hr Documented by: Levothyroxine Sodium (Synthroid) 25 mcg PEG/G-TUBE DAILY@0630 [facility] Last Admin: 06/20/19 06:18 Dose: 25 mcg Documented by: Magnesium Oxide (Mag-Ox) 400 mg PEG/G-TUBE DAILY [facility] Last Admin: 06/20/19 12:52 Dose: 400 mg Documented by: Metoprolol Tartrate (Lopressor) 75 mg PEG/G-TUBE BID [facility] Last Admin: 06/20/19 12:53 Dose: 75 mg Documented by: Pantoprazole Sodium (Protonix) 40 mg IV DAILY [facility] Last Admin: 06/20/19 09:21 Dose: 40 mg Documented by: Sodium Bicarbonate (Sodium Bicarbonate Tab) 650 mg PEG/G-TUBE Q8H [facility] Last Admin: 06/20/19 06:18 Dose: 650 mg Documented by: Sodium Chloride (Saline Flush) 10 ml IV BID [facility] Last Admin: 06/20/19 12:54 Dose: 10 ml Documented by: On examination: VITAL SIGNS: 98.1, 73, 18, blood pressure 135/73, 95% on 2 L GENERAL APPEARANCE: Laying in bed, slightly anxious HEENT: Normal external appearance of nose and ear. Oral cavity normal EYES: Pupils equal. Conjunctiva pale. NECK: JVD not raised. Mass not palpable. RESPIRATORY: Respiratory effort increased, decreased breath sounds, some wheezing. CARDIOVASCULAR: First and second sounds normal. No edema. ABDOMEN: Soft. Liver and spleen not palpable. No tenderness. No mass palpable. PEG tube in place PSYCHIATRY: Alert and oriented x3. Mood and affect anxious. INVESTIGATIONS, reviewed in the clinical context: White count 12.4 hemoglobin 10.5 crit is 141 potassium 4.7 bun 40 creatinine 2.5 to blood glucose 62 Previous testing: UA positive White count 12.5 hemoglobin 12.9 potassium 4.9 bun 34 creatinine 2.57 Patient's creatinine was 1.78 on April 28 on May 14 it was 2.25 Assessment: -Acute kidney injury, possibly ATN, also from decreased oral intake-slow to improve -Hypoglycemia from poor oral intake -Hyperkalemia from renal failure-improving -Acute UTI from cystitis -Chronic kidney disease stage III from nephrosclerosis -Moderate protein calorie malnutrition with BMI of 17.1 -Chronic medical debility does use a wheelchair -Chronic esophagitis -Chronic dysphagia being further evaluated by speech therapist Plan: Discussed at length with the patient. Patient has finally agreed to proceed with Ensure through the PEG tube. We will also give water flushes. Given instructions to the nurse. His hypoglycemia protocol. Detailed reported at 50 mL an hour. Follow Accu-Cheks closely. Time spent was about 40 minutes with over 25 minutes of discussion.
[2019-06-20 19:03] LABS: Glucose,Whole Blood 163 mg/dL (75-99)
[2019-06-20 20:43] LABS: Glucose,Whole Blood 190 mg/dL (75-99)
[2019-06-20] MEDS: SODIUM CHLORIDE 0.9% 1,000 ML IV SCH (21:13)
[2019-06-21] MEDS: HYDROcodone/APAP 10-325MG 1 EACH TAB PEG/G-TUBE PRN ×2 (04:59→20:39)
[2019-06-21 06:18] LABS: Glucose,Whole Blood 84 mg/dL (75-99)
[2019-06-21] MEDS: DRONABINOL 2.5 MG CAP PO SCH ×2 (06:26→16:11)
[2019-06-21] MEDS: LEVOTHYROXINE 25 MCG TAB PEG/G-TUBE SCH (06:26)
[2019-06-21] MEDS: SODIUM BICARBONATE TAB 650 MG TAB PEG/G-TUBE SCH ×3 (06:26→20:39)
[2019-06-21] MEDS: IPRATROPIUM-ALBUTEROL 3 ML NEB INHALATION SCH ×4 (07:40→19:25)
[2019-06-21] MEDS: MAGNESIUM OXIDE 400 MG TAB PEG/G-TUBE SCH (08:59)
[2019-06-21] MEDS: ESCITALOPRAM 5 MG TAB PEG/G-TUBE SCH (08:59)
[2019-06-21] MEDS: amLODIPine 5 MG TAB PEG/G-TUBE SCH (08:59)
[2019-06-21] MEDS: ASPIRIN 81 MG PEG/G-TUBE SCH (08:59)
[2019-06-21] MEDS: METOPROLOL TARTRATE 25 MG TAB PEG/G-TUBE SCH ×2 (08:59→20:39)
[2019-06-21] MEDS: GABAPENTIN 100 MG CAP PEG/G-TUBE SCH ×2 (08:59→20:39)
[2019-06-21] MEDS: HEPARIN SODIUM,PORCINE 5,000 UNIT/ML 1 ML VIAL SQ SCH ×2 (09:00→20:39)
[2019-06-21] MEDS: PANTOPRAZOLE 40 MG/10 ML VIAL IV SCH (09:00)
[2019-06-21] MEDS: HYDROCORTISONE 1% CREAM 30 GM TUBE TOPICAL SCH ×2 (11:39→20:40)
[2019-06-21 12:09] LABS: Glucose,Whole Blood 108 mg/dL (75-99)
[2019-06-21 17:02] LABS: Glucose,Whole Blood 112 mg/dL (75-99)
[2019-06-21] MEDS: GABAPENTIN 300 MG CAP PEG/G-TUBE SCH (20:21)
[2019-06-21 20:48] LABS: Glucose,Whole Blood 128 mg/dL (75-99)
--- NOTE | 2019-06-21 23:33 | P.PN ---
Progress Note - Text Progress Note Date: 06/21/19 Presenting complaint: Decreased oral intake Interval history: Admitted with decreased oral intake. Chronic stable medical conditions include dysphagia, PEG tube, chronic esophagitis, home oxygen, chronic kidney disease stage III with chronic anemia, kidney stones protein calorie malnutrition. History of smoking and alcoholism. Patient was started on PEG tube feeding. Hypoglycemia improved. Given to patient aspirating his sister needing. Was put on a chopped diet. Today-some infection around the PEG tube site. Cultures currently been shrinking obstructive pneumonia. No abdominal pain. Review of systems: Was done for constitutional, cardiovascular, GI, pulmonary. relevant finding as above Active Medications Hydrocodone Bitart/Acetaminophen ([place] 10) 1 each PEG/G-TUBE Q6H PRN PRN Reason: Pain Last Admin: 06/21/19 20:39 Dose: 1 each Documented by: Albuterol/Ipratropium (Duoneb 0.5 Mg-3 Mg/3 Ml Soln) 3 ml INHALATION RT-QID [facility] Last Admin: 06/21/19 19:25 Dose: 3 ml Documented by: Amlodipine Besylate (Norvasc) 5 mg PEG/G-TUBE DAILY [facility] Last Admin: 06/21/19 08:59 Dose: 5 mg Documented by: Aspirin (Aspirin) 81 mg PEG/G-TUBE DAILY [facility] Last Admin: 06/21/19 08:59 Dose: 81 mg Documented by: Dronabinol (Marinol) 2.5 mg PO AC-BID [facility] Last Admin: 06/21/19 16:11 Dose: 2.5 mg Documented by: Escitalopram Oxalate (Lexapro) 10 mg PEG/G-TUBE DAILY [facility] Gabapentin (Neurontin) 200 mg PEG/G-TUBE BID [facility] Last Admin: 06/21/19 20:39 Dose: 200 mg Documented by: Heparin Sodium (Porcine) (Heparin) 5,000 unit SQ Q12HR [facility] Last Admin: 06/21/19 20:39 Dose: 5,000 unit Documented by: Hydrocortisone (Hydrocortisone 1% Cream) 1 applic TOPICAL BID [facility] Last Admin: 06/21/19 20:40 Dose: 1 applic Documented by: Ceftriaxone Sodium 1 gm/ (Sodium Chloride) 50 mls @ 100 mls/hr IVPB Q24H [facility] Last Admin: 06/21/19 14:57 Dose: 100 mls/hr Documented by: Levothyroxine Sodium (Synthroid) 25 mcg PEG/G-TUBE DAILY@0630 [facility] Last Admin: 06/21/19 06:26 Dose: 25 mcg Documented by: Magnesium Oxide (Mag-Ox) 400 mg PEG/G-TUBE DAILY [facility] Last Admin: 06/21/19 08:59 Dose: 400 mg Documented by: Metoprolol Tartrate (Lopressor) 75 mg PEG/G-TUBE BID [facility] Last Admin: 06/21/19 20:39 Dose: 75 mg Documented by: Pantoprazole Sodium (Protonix) 40 mg IV DAILY [facility] Last Admin: 06/21/19 09:00 Dose: 40 mg Documented by: Sodium Bicarbonate (Sodium Bicarbonate Tab) 650 mg PEG/G-TUBE Q8H [facility] Last Admin: 06/21/19 20:39 Dose: 650 mg Documented by: Sodium Chloride (Saline Flush) 10 ml IV BID [facility] Last Admin: 06/21/19 20:40 Dose: 10 ml Documented by: On examination: VITAL SIGNS: 98.1, 65, 20, blood pressure 120 was 86, 97% on room air GENERAL APPEARANCE: Laying in bed, awake HEENT: Normal external appearance of nose and ear. Oral cavity normal EYES: Pupils equal. Conjunctiva pale. NECK: JVD not raised. Mass not palpable. RESPIRATORY: Respiratory effort increased, decreased breath sounds, some wheezing. CARDIOVASCULAR: First and second sounds normal. No edema. ABDOMEN: Soft. Liver and spleen not palpable. No tenderness. No mass palpable. PEG tube in place-some infection around the PEG tube site PSYCHIATRY: Alert and oriented x3. Mood and affect anxious. INVESTIGATIONS, reviewed in the clinical context: White count 12.4 hemoglobin 10.5 crit is 141 potassium 4.7 bun 40 creatinine 2.5 to blood glucose 62 Previous testing: UA positive White count 12.5 hemoglobin 12.9 potassium 4.9 bun 34 creatinine 2.57 Patient's creatinine was 1.78 on April 30 on May 14 it was 2.25 PEG tube site infection growing Pneumoniae, ESBL and Aracelis Assessment: -Acute kidney injury, possibly ATN, also from decreased oral intake-slow to improve -Hypoglycemia from poor oral intake-improving -Hyperkalemia from renal failure-improving -Acute UTI from cystitis -Chronic kidney disease stage III from nephrosclerosis -Moderate protein calorie malnutrition with BMI of 17.1 -Chronic medical debility does use a wheelchair -Chronic esophagitis -Chronic dysphagia being further evaluated by speech therapist -PEG tube site infection growing Klebsiella pneumonia ESBL and some Aracelis Plan: Continue with tube feeding. Continue with chopped diet. Start patient on IV meropenem. GI consultation.
[2019-06-22] MEDS: MEROPENEM 1 GM in SODIUM CHLORIDE 0.9% 100 ML IVPB SCH ×2 (00:02→12:04)
[2019-06-22] MEDS: DRONABINOL 2.5 MG CAP PO SCH ×2 (06:13→17:16)
[2019-06-22] MEDS: LEVOTHYROXINE 25 MCG TAB PEG/G-TUBE SCH (06:13)
[2019-06-22] MEDS: HYDROcodone/APAP 10-325MG 1 EACH TAB PEG/G-TUBE PRN ×2 (06:13→14:34)
[2019-06-22] MEDS: PANTOPRAZOLE 40 MG TABLET PO SCH ×2 (06:13→17:16)
[2019-06-22] MEDS: SODIUM BICARBONATE TAB 650 MG TAB PEG/G-TUBE SCH ×3 (06:13→22:56)
[2019-06-22 06:32] LABS: Glucose,Whole Blood 70 mg/dL (75-99)
[2019-06-22 06:36] LABS: HCT 33.5 % (39.0-53.0); HGB 10.6 gm/dL (13.0-17.5); Hypochromasia Moderate; MCH 37.2 pg (25.0-35.0); MCHC 31.7 g/dL (31.0-37.0); Macrocytosis Marked; Mean Platelet Volume 9.5; Platelet Count 152 k/uL (150-450); RBC 2.86 m/uL (4.30-5.90); RDW 14.4 % (11.5-15.5)
[2019-06-22 06:38] LABS: MCV 117.2 fL (80.0-100.0)
[2019-06-22 07:44] LABS: Calcium 7.1 mg/dL (8.4-10.2); Potassium 4.2 mmol/L (3.5-5.1)
[2019-06-22] MEDS: IPRATROPIUM-ALBUTEROL 3 ML NEB INHALATION SCH ×4 (08:37→20:13)
[2019-06-22] MEDS: MAGNESIUM OXIDE 400 MG TAB PEG/G-TUBE SCH (09:21)
[2019-06-22] MEDS: amLODIPine 5 MG TAB PEG/G-TUBE SCH (09:21)
[2019-06-22] MEDS: HEPARIN SODIUM,PORCINE 5,000 UNIT/ML 1 ML VIAL SQ SCH ×2 (09:21→22:57)
[2019-06-22] MEDS: METOPROLOL TARTRATE 25 MG TAB PEG/G-TUBE SCH ×2 (09:21→22:57)
[2019-06-22] MEDS: ASPIRIN 81 MG PEG/G-TUBE SCH (09:21)
[2019-06-22] MEDS: ESCITALOPRAM 10 MG TAB PEG/G-TUBE SCH (09:21)
[2019-06-22] MEDS: GABAPENTIN 100 MG CAP PEG/G-TUBE SCH ×2 (09:21→22:56)
[2019-06-22] MEDS: HYDROCORTISONE 1% CREAM 30 GM TUBE TOPICAL SCH ×2 (09:22→22:58)
[2019-06-22 12:19] LABS: Glucose,Whole Blood 96 mg/dL (75-99)
--- NOTE | 2019-06-22 16:46 | P.PN ---
Progress Note - Text Progress Note Date: 06/22/19 Presenting complaint: Decreased oral intake Interval history: Admitted with decreased oral intake. Chronic stable medical conditions include dysphagia, PEG tube, chronic esophagitis, home oxygen, chronic kidney disease stage III with chronic anemia, kidney stones protein calorie malnutrition. History of smoking and alcoholism. Patient was started on PEG tube feeding. Hypoglycemia improved. Since patient insisted was put on a chopped diet. Even though showing evidence of aspiration. Started on IV meropenem Klebsiella pneumonia ESBL at PEG tube site infection Today-appears more comfortable. Tolerating about 50% of his diet. No abdominal pain. Only occasional cough. Review of systems: Was done for constitutional, cardiovascular, GI, pulmonary. relevant finding as above Active Medications Hydrocodone Bitart/Acetaminophen ([place] 10) 1 each PEG/G-TUBE Q6H PRN PRN Reason: Pain Last Admin: 06/22/19 14:34 Dose: 1 each Documented by: Albuterol/Ipratropium (Duoneb 0.5 Mg-3 Mg/3 Ml Soln) 3 ml INHALATION RT-QID [facility] Last Admin: 06/22/19 15:58 Dose: 3 ml Documented by: Amlodipine Besylate (Norvasc) 5 mg PEG/G-TUBE DAILY [facility] Last Admin: 06/22/19 09:21 Dose: 5 mg Documented by: Aspirin (Aspirin) 81 mg PEG/G-TUBE DAILY [facility] Last Admin: 06/22/19 09:21 Dose: 81 mg Documented by: Dronabinol (Marinol) 2.5 mg PO AC-BID [facility] Last Admin: 06/22/19 06:13 Dose: 2.5 mg Documented by: Escitalopram Oxalate (Lexapro) 10 mg PEG/G-TUBE DAILY [facility] Last Admin: 06/22/19 09:21 Dose: 10 mg Documented by: Gabapentin (Neurontin) 200 mg PEG/G-TUBE BID [facility] Last Admin: 06/22/19 09:21 Dose: 200 mg Documented by: Heparin Sodium (Porcine) (Heparin) 5,000 unit SQ Q12HR [facility] Last Admin: 06/22/19 09:21 Dose: 5,000 unit Documented by: Hydrocortisone (Hydrocortisone 1% Cream) 1 applic TOPICAL BID [facility] Last Admin: 06/22/19 09:22 Dose: 1 applic Documented by: Meropenem 1 gm/ Sodium (Chloride) 100 mls @ 200 mls/hr IVPB Q12H [facility]; Protocol Last Admin: 06/22/19 12:04 Dose: 200 mls/hr Documented by: Levothyroxine Sodium (Synthroid) 25 mcg PEG/G-TUBE DAILY@0630 [facility] Last Admin: 06/22/19 06:13 Dose: 25 mcg Documented by: Magnesium Oxide (Mag-Ox) 400 mg PEG/G-TUBE DAILY [facility] Last Admin: 06/22/19 09:21 Dose: 400 mg Documented by: Metoprolol Tartrate (Lopressor) 75 mg PEG/G-TUBE BID [facility] Last Admin: 06/22/19 09:21 Dose: 75 mg Documented by: Pantoprazole Sodium (Protonix) 40 mg PO AC-BID [facility] Last Admin: 06/22/19 06:13 Dose: 40 mg Documented by: Sodium Bicarbonate (Sodium Bicarbonate Tab) 650 mg PEG/G-TUBE Q8H [facility] Last Admin: 06/22/19 14:34 Dose: 650 mg Documented by: Sodium Chloride (Saline Flush) 10 ml IV BID [facility] Last Admin: 06/22/19 09:21 Dose: 10 ml Documented by: On examination: VITAL SIGNS: 98.3, 63, 18, blood pressure 126/69, 95% on room air GENERAL APPEARANCE: Laying in bed, more comfortable HEENT: Normal external appearance of nose and ear. Oral cavity normal EYES: Pupils equal. Conjunctiva pale. NECK: JVD not raised. Mass not palpable. RESPIRATORY: Respiratory effort increased, decreased breath sounds,. CARDIOVASCULAR: First and second sounds normal. No edema. ABDOMEN: Soft. Liver and spleen not palpable. No tenderness. No mass palpable. PEG tube in place-some infection around the PEG tube site PSYCHIATRY: Alert and oriented x3. Mood and affect anxious. INVESTIGATIONS, reviewed in the clinical context: White count 8 hemoglobin 10.6 potassium 4.2 bun 29 and creatinine 2.04 Previous testing: UA positive White count 12.5 hemoglobin 12.9 potassium 4.9 bun 34 creatinine 2.57 Patient's creatinine was 1.78 on April 30 on May 14 it was 2.25 PEG tube site infection growing Klebsiella Pneumoniae, ESBL and Aracelis Assessment: -Acute kidney injury, possibly ATN, also from decreased oral improving -Hypoglycemia from poor oral intake-improving -Hyperkalemia from renal improved -Acute UTI from cystitis -Chronic kidney disease stage III from nephrosclerosis -Moderate protein calorie malnutrition with BMI of 17.1 -Chronic medical debility does use a wheelchair -Chronic esophagitis -Chronic dysphagia being further evaluated by speech therapist -PEG tube site infection growing Klebsiella pneumonia ESBL and some Aracelis Plan: Continue with IV meropenem. Patient clinically responding. Await input from GI and ID. Care was discussed with the patient. Tube feeding to continue.
[2019-06-22 17:24] LABS: Glucose,Whole Blood 104 mg/dL (75-99)
[2019-06-22 20:07] LABS: Glucose,Whole Blood 175 mg/dL (75-99)
--- NOTE | 2019-06-22 23:42 | P.CONS ---
History of Present Illness - Reason for Consult Consult date: 06/22/19 PEG site infection Requesting physician: John Elliott - Chief Complaint weakness x few days - History of Present Illness Patient is a 69-year male with a past medical his significant for dysphagia from chronic esophagitis in this patient who did have a PEG tube for feeding patient presented to the hospital with increasing shortness of breath and cough and decreased oral intake patient on presentation to the hospital was afebrile and remained to be afebrile patient did have mildly positive UA mildly elevated white count of 12.5 that is normalized as of today patient did have a chest x-ray on admission which shows improvement in aeration in the lung bases from subsegmental atelectasis patient did have some drainage and expectoration which has been cultured which has been finalized with Klebsiella pneumoniae has been indicated and because patient was started on meropenem infectious disease was consulted for further recommendation of antibiotic patient currently denies having any abdominal pain. Denies any further drainage from his PEG tube site denies any fever or chills as mentioned above no nausea no vomiting and no diarrhea. Review of Systems Positive point has been mentioned in HPI rest of the systems are negative Past Medical History Past Medical History: Asthma, GI Bleed, Hypertension, Liver Disease, Neurologic Disorder, Pneumonia, Renal Disease Additional Past Medical History / Comment(s): Dysphagia, aspiration pneumonia/vented, peg tube placed but staff state with therapy pt recently able to take orals and they are just doing water flushes of peg [id number] also states past 1.5 weeks pt's oral intake has declined and he has refused to supplement with his peg tube-voices concern he will again lose ability to take orals, esophagitis, septic shock, pleural effusion with thoracentesis, pt wears oxygen ATC, GI bleed, calculus of bile duct/stented, acute cholecystitis, pancreatitis, R femoral pseudoaneurysm with acute blood loss anemia, CKD stage III with chronic anemia, nephrolithiasis, UTI, past ETOH abuse, alcoholic fatty liver, chronic generalized pain, muscle weakness, insomnia, protein calorie malnutrition, defiency of vitamis, thrombocytopenia, skin tear L buttock. History of Any Multi-Drug Resistant Organisms: ESBL Year Discovered:: 06/19/19 MDRO Source:: ESBL ABDOMEN Past Surgical History: Orthopedic Surgery Additional Past Surgical History / Comment(s): Peg tube, R femoral pseudoan eurysm repair, C3-6 cervical surgery/plate, bilateral cataract removal with lens implants, umbilical hernia as a baby, bile duct stent, ERCP, Past Anesthesia/Blood Transfusion Reactions: No Reported Reaction Smoking Status: Former smoker - Past Family History Father Family Medical History: Cancer Additional Family Medical History / Comment(s): Melanoma Mother Family Medical History: Cancer Additional Family Medical History / Comment(s): Breast cancer. Medications and Allergies Home Medications Medication Instructions Recorded Confirmed Type Magnesium Oxide [Mag-Ox] 400 mg PEG/G-TUBE DAILY 08/31/18 06/18/19 History Epoetin Von [Procrit] 4,000 unit IJ TH 10/06/18 06/18/19 History Aspirin 81 mg PEG/G-TUBE DAILY 10/19/18 06/18/19 History Levothyroxine Sodium [Synthroid] 25 mcg PEG/G-TUBE DAILY 10/19/18 06/18/19 History Omeprazole [PriLOSEC] 20 mg PEG/G-TUBE DAILY 10/19/18 06/18/19 History Metoprolol Tartrate [Lopressor] 75 mg PEG/G-TUBE BID tab 10/26/18 06/18/19 Rx Cholecalciferol [Vitamin D3 (25 8,000 unit PEG/G-TUBE DAILY 06/18/19 06/18/19 History Mcg = 1000 Iu)] Doxycycline Hyclate 100 mg PEG/G-TUBE BID 06/18/19 06/18/19 History Escitalopram [Lexapro] 10 mg PEG/G-TUBE DAILY 06/18/19 06/18/19 History Gabapentin [Neurontin] 300 mg PEG/G-TUBE BID 06/18/19 06/18/19 History HYDROcodone/APAP 10-325MG [[place] 1 tab PEG/G-TUBE Q4HR PRN 06/18/19 06/18/19 History 10-325] Hydrocortisone Cream 1 applic TOPICAL BID 06/18/19 06/18/19 History [Hydrocortisone 2.5% Cream] Ipratropium-Albuterol Nebulize 3 ml INHALATION RT-Q6H PRN 06/18/19 06/18/19 History [Duoneb 0.5 mg-3 mg/3 ml Soln] Lisinopril [Zestril] 10 mg PEG/G-TUBE HS 06/18/19 06/18/19 History Sodium Bicarbonate 650 mg PEG/G-TUBE Q8H 06/18/19 06/18/19 History amLODIPine [Norvasc] 5 mg PEG/G-TUBE DAILY 06/18/19 06/18/19 History guaiFENesin [Mucinex] 600 mg PEG/G-TUBE Q12H 06/18/19 06/18/19 History methylPREDNISolone Dose Pack See Taper PEG/G-TUBE DAILY 06/18/19 06/18/19 History [Medrol Dose Pack] Allergies Allergy/AdvReac Type Severity Reaction Status Date / Time No Known Allergies Allergy Verified 06/18/19 11:36 Physical Exam Vitals: Vital Signs Temp Pulse Pulse Resp BP Pulse Ox 06/22/19 16:11 70 06/22/19 15:58 64 06/22/19 15:15 98.3 F 63 18 126/69 95 06/22/19 12:05 98 F 68 18 129/71 97 06/22/19 11:56 72 06/22/19 11:44 72 06/22/19 08:51 70 06/22/19 08:38 68 06/22/19 08:00 98.2 F 68 18 128/75 94 L 06/22/19 03:01 97.9 F 86 18 128/67 96 06/22/19 00:00 85 18 123/68 96 06/21/19 20:00 97.7 F 83 20 126/66 95 06/21/19 19:34 72 06/21/19 19:25 74 Intake and Output 06/22/19 06/22/19 06/22/19 06:59 14:59 22:59 Intake Total 356 120 Output Total 125 400 Balance -125 356 -280 Intake: Oral 236 Tube Feeding 120 120 Output: Urine 125 400 Other: # Bowel Movements 1 2 Weight 49.5 kg GENERAL DESCRIPTION: Elderly male lying in bed, no distress. No tachypnea or accessory muscle of respiration use. HEENT: Shows Pallor , no scleral icterus. Oral mucous membrane is dry. NECK: Trachea central, no thyromegaly. LUNGS: Unlabored breathing. Clear to auscultation anteriorly. No wheeze or crackle. HEART: S1, S2, regular rate and rhythm. ABDOMEN: Soft, PEG tube site healed with no swelling no redness or any purulent drainage , there is no tenderness , guarding or rigidity EXTREMITIES: No edema of feet. SKIN: No rash, no masses palpable. NEUROLOGICAL: The patient is awake, alert, oriented x3, mood and affect normal. Results CBC & Chem 7: 06/22/19 06:00 06/22/19 06:00 Labs: Abnormal Lab Results - Last 24 Hours (Table) 06/21/19 06/22/19 06/22/19 Range/Units 20:44 06:00 06:00 RBC 2.86 L (4.30-5.90) m/uL Hgb 10.6 L (13.0-17.5) gm/dL Hct 33.5 L (39.0-53.0) % MCV 117.2 H D (80.0-100.0) fL MCH 37.2 H (25.0-35.0) pg Macrocytosis Marked A Chloride 113 H (98-107) mmol/L BUN 29 H (9-20) mg/dL Creatinine 2.04 H (0.66-1.25) mg/dL Glucose 69 L (74-99) mg/dL POC Glucose (mg/dL) 128 H (75-99) mg/dL Calcium 7.1 L (8.4-10.2) mg/dL 06/22/19 06/22/19 Range/Units 06:29 17:21 RBC (4.30-5.90) m/uL Hgb (13.0-17.5) gm/dL Hct (39.0-53.0) % MCV (80.0-100.0) fL MCH (25.0-35.0) pg Macrocytosis Chloride (98-107) mmol/L BUN (9-20) mg/dL Creatinine (0.66-1.25) mg/dL Glucose (74-99) mg/dL POC Glucose (mg/dL) 70 L 104 H (75-99) mg/dL Calcium (8.4-10.2) mg/dL Microbiology - Last 24 Hours (Table) 06/18/19 11:02 Blood Culture - Preliminary Blood No Growth after 96 hours Assessment and Plan Assessment: 1-patient with a positive culture from the PEG tube site more likely indicated of the GI tejas of this patient and possible colonization as the PEG tube itself currently with no swelling no redness no induration in this patient with no fever clinical suspicion is low for infection/cellulitis of the PEG tube site Plan: 1-recommend to discontinue the meropenem 2-patient will monitor closely off antibiotic therapy We will follow on clinical condition and cultures to further adjust medication if needed Thank you for this consultation we will follow the patient along with you Time with Patient: Greater than 30
[2019-06-23] MEDS: MEROPENEM 1 GM in SODIUM CHLORIDE 0.9% 100 ML IVPB SCH ×2 (01:14→12:11)
[2019-06-23 06:11] LABS: Glucose,Whole Blood 83 mg/dL (75-99)
[2019-06-23] MEDS: DRONABINOL 2.5 MG CAP PO SCH ×2 (06:37→17:33)
[2019-06-23] MEDS: LEVOTHYROXINE 25 MCG TAB PEG/G-TUBE SCH (06:38)
[2019-06-23] MEDS: PANTOPRAZOLE 40 MG TABLET PO SCH ×2 (06:38→17:33)
[2019-06-23] MEDS: SODIUM BICARBONATE TAB 650 MG TAB PEG/G-TUBE SCH ×3 (06:38→22:33)
[2019-06-23 07:46] LABS: Calcium 7.4 mg/dL (8.4-10.2); Potassium 4.3 mmol/L (3.5-5.1)
[2019-06-23] MEDS: IPRATROPIUM-ALBUTEROL 3 ML NEB INHALATION SCH ×4 (08:20→21:58)
[2019-06-23] MEDS: HEPARIN SODIUM,PORCINE 5,000 UNIT/ML 1 ML VIAL SQ SCH ×2 (09:20→22:33)
[2019-06-23] MEDS: ASPIRIN 81 MG PEG/G-TUBE SCH (09:20)
[2019-06-23] MEDS: amLODIPine 5 MG TAB PEG/G-TUBE SCH (09:20)
[2019-06-23] MEDS: GABAPENTIN 100 MG CAP PEG/G-TUBE SCH ×2 (09:20→22:33)
[2019-06-23] MEDS: ESCITALOPRAM 10 MG TAB PEG/G-TUBE SCH (09:20)
[2019-06-23] MEDS: MAGNESIUM OXIDE 400 MG TAB PEG/G-TUBE SCH (09:20)
[2019-06-23] MEDS: METOPROLOL TARTRATE 25 MG TAB PEG/G-TUBE SCH ×2 (09:20→22:33)
[2019-06-23] MEDS: HYDROCORTISONE 1% CREAM 30 GM TUBE TOPICAL SCH (09:33)
[2019-06-23 11:40] LABS: Glucose,Whole Blood 103 mg/dL (75-99)
[2019-06-23] MEDS: HYDROcodone/APAP 10-325MG 1 EACH TAB PEG/G-TUBE PRN (14:00)
[2019-06-23 16:50] LABS: Glucose,Whole Blood 126 mg/dL (75-99)
[2019-06-23 20:06] LABS: Glucose,Whole Blood 115 mg/dL (75-99)
--- NOTE | 2019-06-23 20:10 | PN ---
PROGRESS NOTE DATE OF SERVICE: 06/23/2019 REASON FOR FOLLOWUP: Positive cultures from the PEG tube site. INTERVAL HISTORY: The patient is currently afebrile. Patient has been breathing comfortably. The patient denies having any chest pain or shortness of breath or cough and no further drainage from his PEG tube site. PHYSICAL EXAMINATION: Blood pressure 124/75 with a pulse of 78. Temperature is 97.8. He was 97% on room air. General description is an elderly male lying in bed in no distress. Respiratory system: Unlabored breathing. Clear to auscultation anteriorly. Heart: S1, S2, regular rate and rhythm. Abdomen soft. No tenderness. LABS: BUN of 28, creatinine 1.95. DIAGNOSTIC IMPRESSION AND PLAN: Patient with positive culture of Klebsiella pneumoniae, ESBL from the PEG tube site. There is no evidence of any cellulitis or drainage. Clinically doubt any cellulitis or infection of the PEG tube site. Meropenem has been discontinued. Monitor blood cultures closely, off antibiotic therapy. Continue supportive care. MMODL / IJN: [id number] /
--- NOTE | 2019-06-23 20:21 | P.PN ---
Progress Note - Text Progress Note Date: 06/23/19 Presenting complaint: Decreased oral intake Interval history: Admitted with decreased oral intake. Chronic stable medical conditions include dysphagia, PEG tube, chronic esophagitis, home oxygen, chronic kidney disease stage III with chronic anemia, kidney stones protein calorie malnutrition. History of smoking and alcoholism. Patient was started on PEG tube feeding. Hypoglycemia improved. Since patient insisted was put on a chopped diet. Even though showing evidence of aspiration. Started on IV meropenem Klebsiella pneumonia ESBL at PEG tube site infection Today-patient will. Intermittent coughing. Happy with his diet. Tolerating tube feeding. No new issues. Review of systems: Was done for constitutional, cardiovascular, GI, pulmonary. relevant finding as above Active Medications Hydrocodone Bitart/Acetaminophen ([place] 10) 1 each PEG/G-TUBE Q6H PRN PRN Reason: Pain Last Admin: 06/23/19 14:00 Dose: 1 each Documented by: Albuterol/Ipratropium (Duoneb 0.5 Mg-3 Mg/3 Ml Soln) 3 ml INHALATION RT-QID [facility] Last Admin: 06/23/19 16:48 Dose: 3 ml Documented by: Amlodipine Besylate (Norvasc) 5 mg PEG/G-TUBE DAILY [facility] Last Admin: 06/23/19 09:20 Dose: 5 mg Documented by: Aspirin (Aspirin) 81 mg PEG/G-TUBE DAILY [facility] Last Admin: 06/23/19 09:20 Dose: 81 mg Documented by: Dronabinol (Marinol) 2.5 mg PO AC-BID [facility] Last Admin: 06/23/19 17:33 Dose: 2.5 mg Documented by: Escitalopram Oxalate (Lexapro) 10 mg PEG/G-TUBE DAILY [facility] Last Admin: 06/23/19 09:20 Dose: 10 mg Documented by: Gabapentin (Neurontin) 200 mg PEG/G-TUBE BID [facility] Last Admin: 06/23/19 09:20 Dose: 200 mg Documented by: Heparin Sodium (Porcine) (Heparin) 5,000 unit SQ Q12HR [facility] Last Admin: 06/23/19 09:20 Dose: 5,000 unit Documented by: Hydrocortisone (Hydrocortisone 1% Cream) 1 applic TOPICAL BID [facility] Last Admin: 06/23/19 09:33 Dose: 1 applic Documented by: Levothyroxine Sodium (Synthroid) 25 mcg PEG/G-TUBE DAILY@0630 [facility] Last Admin: 06/23/19 06:38 Dose: 25 mcg Documented by: Magnesium Oxide (Mag-Ox) 400 mg PEG/G-TUBE DAILY [facility] Last Admin: 06/23/19 09:20 Dose: 400 mg Documented by: Metoprolol Tartrate (Lopressor) 75 mg PEG/G-TUBE BID [facility] Last Admin: 06/23/19 09:20 Dose: 75 mg Documented by: Pantoprazole Sodium (Protonix) 40 mg PO AC-BID [facility] Last Admin: 06/23/19 17:33 Dose: 40 mg Documented by: Sodium Bicarbonate (Sodium Bicarbonate Tab) 650 mg PEG/G-TUBE Q8H [facility] Last Admin: 06/23/19 14:00 Dose: 650 mg Documented by: Sodium Chloride (Saline Flush) 10 ml IV BID [facility] Last Admin: 06/23/19 09:21 Dose: Not Given Documented by: On examination: VITAL SIGNS: 97.8, 77, 18, blood pressure 100 2475, 97% on room air GENERAL APPEARANCE: Laying in bed, comfortable HEENT: Normal external appearance of nose and ear. Oral cavity normal EYES: Pupils equal. Conjunctiva pale. NECK: JVD not raised. Mass not palpable. RESPIRATORY: Respiratory effort increased, decreased breath sounds,. CARDIOVASCULAR: First and second sounds normal. No edema. ABDOMEN: Soft. Liver and spleen not palpable. No tenderness. No mass palpable. PEG tube site appearance clean PSYCHIATRY: Alert and oriented x3. Mood and affect anxious. INVESTIGATIONS, reviewed in the clinical context: Potassium 4.3 bun 28 creatinine 1.95 Previous testing: UA positive White count 12.5 hemoglobin 12.9 potassium 4.9 bun 34 creatinine 2.57 Patient's creatinine was 1.78 on April 30 on May 14 it was 2.25 PEG tube site infection growing Klebsiella Pneumoniae, ESBL and Aracelis Assessment: -Acute kidney injury, possibly ATN, also from decreased oral improving -Hypoglycemia from poor oral intake-improving -Hyperkalemia from renal improved -Acute UTI from cystitis -Chronic kidney disease stage III from nephrosclerosis -Moderate protein calorie malnutrition with BMI of 17.1 -Chronic medical debility does use a wheelchair -Chronic esophagitis -Chronic dysphagia being further evaluated by speech therapist -PEG tube site infection growing Klebsiella pneumonia ESBL and some Aracelis-not acute infection-colonization Plan: Appreciate ID input. Meropenem discontinued. Other medications to continue. Discharged to [facility] tomorrow. Discussed with patient.
[2019-06-24 05:55] LABS: Glucose,Whole Blood 88 mg/dL (75-99)
[2019-06-24 06:19] LABS: Calcium 7.6 mg/dL (8.4-10.2); Potassium 3.6 mmol/L (3.5-5.1)
[2019-06-24] MEDS: HYDROCORTISONE 1% CREAM 30 GM TUBE TOPICAL SCH ×2 (06:57→10:05)
[2019-06-24] MEDS: LEVOTHYROXINE 25 MCG TAB PEG/G-TUBE SCH (06:57)
[2019-06-24] MEDS: PANTOPRAZOLE 40 MG TABLET PO SCH (06:57)
[2019-06-24] MEDS: SODIUM BICARBONATE TAB 650 MG TAB PEG/G-TUBE SCH (06:57)
[2019-06-24] MEDS: DRONABINOL 2.5 MG CAP PO SCH (07:02)
[2019-06-24] MEDS: IPRATROPIUM-ALBUTEROL 3 ML NEB INHALATION SCH ×2 (08:23→11:28)
[2019-06-24] MEDS: ESCITALOPRAM 10 MG TAB PEG/G-TUBE SCH (10:04)
[2019-06-24] MEDS: HEPARIN SODIUM,PORCINE 5,000 UNIT/ML 1 ML VIAL SQ SCH (10:04)
[2019-06-24] MEDS: amLODIPine 5 MG TAB PEG/G-TUBE SCH (10:04)
[2019-06-24] MEDS: MAGNESIUM OXIDE 400 MG TAB PEG/G-TUBE SCH (10:04)
[2019-06-24] MEDS: ASPIRIN 81 MG PEG/G-TUBE SCH (10:04)
[2019-06-24] MEDS: GABAPENTIN 100 MG CAP PEG/G-TUBE SCH (10:04)
[2019-06-24] MEDS: METOPROLOL TARTRATE 25 MG TAB PEG/G-TUBE SCH (10:04)
[2019-06-24 11:23] VITALS: BMI 16.4
--- NOTE | 2019-06-24 12:13 | P.DS ---
Providers Date of admission: 06/18/19 13:34 Expected date of discharge: 06/24/19 Attending physician: John Elliott Consults: 06/18/19 13:33 Consult Physician Routine Consulting Provider: Maria Luz Rashid Consult Reason/Comments: chf Do you want consulting provider notified?: Yes 06/21/19 10:04 Consult Physician Routine Consulting Provider: Shy Christianson Consult Reason/Comments: infected peg tube Do you want consulting provider notified?: Yes 06/21/19 23:34 Consult Physician Routine Consulting Provider: Rickie Castillo Consult Reason/Comments: PEG tube site infection Do you want consulting provider notified?: Yes Primary care physician: [facility] Course: Presenting complaint: Decreased oral intake Interval history: Admitted with decreased oral intake. Chronic stable medical conditions include dysphagia, PEG tube, chronic esophagitis, home oxygen, chronic kidney disease stage III with chronic anemia, kidney stones protein calorie malnutrition. History of smoking and alcoholism. Patient was started on PEG tube feeding. Hypoglycemia improved. Since patient insisted was put on a chopped diet. Even though showing evidence of aspiration. Klebsiella pneumonia ESBL at PEG tube site -felt to be colonization. No need for antibiotics per ID. Also had acute kidney injury-on presentation creatinine was 2.57 to drop to 1.77 today-felt to be from decreased oral intake Today-comfortable. Tolerating his diet. Tolerating tube feeding. Baseline occasional cough. Consultation: Dr. VC Burgess from cardiology Dr. Greg castillo from ID On examination: VITAL SIGNS: 97.3, 77, 18, blood pressure 141/75, 98% on room air GENERAL APPEARANCE: Laying in bed, comfortable HEENT: Normal external appearance of nose and ear. Oral cavity normal EYES: Pupils equal. Conjunctiva pale. NECK: JVD not raised. Mass not palpable. RESPIRATORY: Respiratory effort increased, decreased breath sounds,. CARDIOVASCULAR: First and second sounds normal. No edema. ABDOMEN: Soft. Liver and spleen not palpable. No tenderness. No mass palpable. PEG tube site appearance clean PSYCHIATRY: Alert and oriented x3. Mood and affect anxious. INVESTIGATIONS, reviewed in the clinical context: Potassium 3.6 creatinine 1.77 Previous testing: UA positive White count 12.5 hemoglobin 12.9 potassium 4.9 bun 34 creatinine 2.57 Patient's creatinine was 1.78 on April 30 on May 14 it was 2.25 PEG tube site infection growing Klebsiella Pneumoniae, ESBL and Aracelis Assessment: -Acute kidney injury, possibly ATN, also from decreased oral improving -Hypoglycemia from poor oral intake-improving -Hyperkalemia from renal improved -Acute UTI from cystitis -Chronic kidney disease stage III from nephrosclerosis -Severe protein calorie malnutrition with BMI of 17.1 -Chronic medical debility does use a wheelchair -Chronic esophagitis -Chronic dysphagia with intermittent aspiration. Patient refuses to be nothing by mouth. -PEG tube site growing Klebsiella pneumonia ESBL and some Aracelis-not acute znchwpeiv-dgbdokuczefh-km antibiotics Disposition: [facility] Patient Condition at Discharge: Stable Plan - Discharge Summary Discharge Rx Participant: No New Discharge Prescriptions: No Action Magnesium Oxide [Mag-Ox] 400 mg PEG/G-TUBE DAILY Epoetin Von [Procrit] 4,000 unit IJ TH Omeprazole [PriLOSEC] 20 mg PEG/G-TUBE DAILY Levothyroxine Sodium [Synthroid] 25 mcg PEG/G-TUBE DAILY Aspirin 81 mg PEG/G-TUBE DAILY Metoprolol Tartrate [Lopressor] 75 mg PEG/G-TUBE BID tab amLODIPine [Norvasc] 5 mg PEG/G-TUBE DAILY Cholecalciferol [Vitamin D3 (25 Mcg = 1000 Iu)] 8,000 unit PEG/G-TUBE DAILY Doxycycline Hyclate 100 mg PEG/G-TUBE BID Escitalopram [Lexapro] 10 mg PEG/G-TUBE DAILY Gabapentin [Neurontin] 300 mg PEG/G-TUBE BID guaiFENesin [Mucinex] 600 mg PEG/G-TUBE Q12H HYDROcodone/APAP 10-325MG [[place] 10-325] 1 tab PEG/G-TUBE Q4HR PRN PRN Reason: Pain Hydrocortisone Cream [Hydrocortisone 2.5% Cream] 1 applic TOPICAL BID Ipratropium-Albuterol Nebulize [Duoneb 0.5 mg-3 mg/3 ml Soln] 3 ml INHALATION RT-Q6H PRN PRN Reason: Shortness Of Breath Lisinopril [Zestril] 10 mg PEG/G-TUBE HS methylPREDNISolone Dose Pack [Medrol Dose Pack] See Taper PEG/G-TUBE DAILY Sodium Bicarbonate 650 mg PEG/G-TUBE Q8H Discharge Medication List Magnesium Oxide [Mag-Ox] 400 mg PEG/G-TUBE DAILY 08/31/18 [History] Epoetin Von [Procrit] 4,000 unit IJ TH 10/06/18 [History] Aspirin 81 mg PEG/G-TUBE DAILY 10/19/18 [History] Levothyroxine Sodium [Synthroid] 25 mcg PEG/G-TUBE DAILY 10/19/18 [History] Omeprazole [PriLOSEC] 20 mg PEG/G-TUBE DAILY 10/19/18 [History] Metoprolol Tartrate [Lopressor] 75 mg PEG/G-TUBE BID tab 10/26/18 [Rx] Cholecalciferol [Vitamin D3 (25 Mcg = 1000 Iu)] 8,000 unit PEG/G-TUBE DAILY 06/18/19 [History] Doxycycline Hyclate 100 mg PEG/G-TUBE BID 06/18/19 [History] Escitalopram [Lexapro] 10 mg PEG/G-TUBE DAILY 06/18/19 [History] Gabapentin [Neurontin] 300 mg PEG/G-TUBE BID 06/18/19 [History] HYDROcodone/APAP 10-325MG [[place] 10-325] 1 tab PEG/G-TUBE Q4HR PRN 06/18/19 [History] Hydrocortisone Cream [Hydrocortisone 2.5% Cream] 1 applic TOPICAL BID 06/18/19 [History] Ipratropium-Albuterol Nebulize [Duoneb 0.5 mg-3 mg/3 ml Soln] 3 ml INHALATION RT-Q6H PRN 06/18/19 [History] Lisinopril [Zestril] 10 mg PEG/G-TUBE HS 06/18/19 [History] Sodium Bicarbonate 650 mg PEG/G-TUBE Q8H 06/18/19 [History] amLODIPine [Norvasc] 5 mg PEG/G-TUBE DAILY 06/18/19 [History] guaiFENesin [Mucinex] 600 mg PEG/G-TUBE Q12H 06/18/19 [History] methylPREDNISolone Dose Pack [Medrol Dose Pack] See Taper PEG/G-TUBE DAILY 06/18/19 [History] Follow up Appointment(s)/Referral(s): Justice Silva MD [STAFF PHYSICIAN] - 1-2 days
[2019-06-24 12:47] VITALS: BP 156/76; PULSE 78; RESP 16; TEMP 98.2
--- NOTE | 2019-06-24 16:32 | PN ---
PROGRESS NOTE DATE OF SERVICE: 06/24/2019 REASON FOR FOLLOWUP: Positive culture from his PEG tube site. INTERVAL HISTORY: The patient was seen on rounds this morning. The patient has been afebrile. The patient was breathing comfortably. Denies having any chest pain or cough. No abdominal pain. He was eating his lunch with no choking and no diarrhea. PHYSICAL EXAMINATION: Blood pressure 156/76, pulse of 78, temperature 98.2. He is 97% on room air. General description is an elderly male lying in bed in no distress. RESPIRATORY SYSTEM: Unlabored breathing. Clear to auscultation anteriorly. HEART: S1, S2. Regular rate and rhythm. ABDOMEN: Soft. No tenderness. LABS: Creatinine is 1.77. DIAGNOSTIC IMPRESSION AND PLAN: Patient with a positive culture, extended-spectrum beta-lactamase Klebsiella, from his PEG tube site. There was no evidence of any cellulitis. Patient with no fever or elevated white count. Likely colonization of his GI tract and no need for any systemic antibiotic therapy for the same. Continue with supportive care. MMODL / IJN: [id number] /
--- NOTE | 2019-06-27 08:23 | CDI ---
Documentation Clarification Form Date: 06/27/19 From: Flora Cornell Phone: If you have a question about this query, please contact Helena Robbins, Automation Controls Specialist at [phone] between 8am and 5pm. Admit Date: 06/18/19 Discharge Date: 06/24/19 Patient Name: ALVA SAXENA Visit Number: [id number] ATTENTION: The Clinical Documentation Specialists (CDI) and [facility] Coding Staff appreciate your assistance in clarifying documentation. Please respond to the clarification below the line at the bottom and electronically sign. The CDI & [facility] Coding staff will review the response and follow-up if needed. Please note: Queries are made part of the Legal Health Record. If you have any questions, please contact the author of this message via ITS. Dear Dr. John Elliott, CHF is documented in the ED Note, H&P & DS. History/Risk Factors: HTN w CKD III & CHF, chronic hypoxic respiratory failure, severe PCM, ATN Clinical Indicators: cough, dyspnea, no chest pain VS/Pulse OX: T-97.4, P-56, R-56, BP-118/68, O2-98 (3L) BNP: [id number] Echocardiogram Results: left ventricular systolic function is normal with, an EF between 60 - 65 %. Chest X Ray: Improvement in aeration at the lung bases, there may be subsegmental atelectatic changes or scarring, follow-up could BE performed to assess for stability. Treatment: 06/17-Lasix 20 mg IV Q12HR given once In your professional opinion, can you please clarify the acuity and type of CHF if known? TYPE Systolic Heart Failure Diastolic Heart Failure Systolic & Diastolic Heart Failure ACUITY Acute Chronic Acute on Chronic Heart Failure Unable to Determine Other, please specify No CHF MTDD
== END 2019-06-24 15:17 | DRG 682 ==
LOC: EC 10:23 → 3SCARD 13:34
PROVIDERS: ADMIT Hospitalist; ATTEND Hospitalist
DX: N17.0 Acute kidney failure with tubular necrosis (principal); E43 Unspecified severe protein-calorie malnutrition; J96.11 Chronic respiratory failure with hypoxia; R64 Cachexia; I13.0 Hypertensive heart and chronic kidney disease with heart failure and stage 1 through stage 4 chronic kidney disease, or unspecified chronic kidney disease; Z68.1 Body mass index [BMI] 19.9 or less, adult; N30.00 Acute cystitis without hematuria; J98.11 Atelectasis; N18.3 Chronic kidney disease, stage 3 (moderate); K70.0 Alcoholic fatty liver; D63.1 Anemia in chronic kidney disease; R62.7 Adult failure to thrive; I50.9 Heart failure, unspecified; E87.5 Hyperkalemia; E86.0 Dehydration; J45.909 Unspecified asthma, uncomplicated; R13.10 Dysphagia, unspecified; K20.9 Esophagitis, unspecified; E16.2 Hypoglycemia, unspecified; G47.00 Insomnia, unspecified; E56.9 Vitamin deficiency, unspecified; F10.11 Alcohol abuse, in remission; Z93.1 Gastrostomy status; Z79.82 Long term (current) use of aspirin; Z79.2 Long term (current) use of antibiotics; Z79.890 Hormone replacement therapy; Z79.52 Long term (current) use of systemic steroids; Z79.899 Other long term (current) drug therapy; Z87.01 Personal history of pneumonia (recurrent); Z99.81 Dependence on supplemental oxygen; Z87.440 Personal history of urinary (tract) infections; Z87.442 Personal history of urinary calculi; Z87.891 Personal history of nicotine dependence; Z86.19 Personal history of other infectious and parasitic diseases; Z87.19 Personal history of other diseases of the digestive system; Z98.890 Other specified postprocedural states; Z96.1 Presence of intraocular lens; Z98.41 Cataract extraction status, right eye; Z98.42 Cataract extraction status, left eye; Z86.73 Personal history of transient ischemic attack (TIA), and cerebral infarction without residual deficits; Z99.3 Dependence on wheelchair; Z80.8 Family history of malignant neoplasm of other organs or systems; Z80.3 Family history of malignant neoplasm of breast
CPT/HCPCS: 36415; 71046; 80048; 80053; 81001; 83605; 83735; 83880; 84100; 84439; 84443; 84481; 85025; 85027; 85610; 85730; 87040; 87070; 87077; 87086; 87186; 87205; 93005; 93306; 94640; 94760; 96374; 99285

== ENCOUNTER 2019-10-27 08:05 | Inpatient (IN) | payer MEDICARE, OTHER ==
[~2019-10-27 08:05] MED LIST: DEXTROSE 10 % IN WATER 250 ML BAG IV ONE; EPINEPHrine 10 ML SYRINGE (0.1 MG/ML) ONE
[2019-10-27] MEDS: DEXTROSE 50% SYRINGE 50 ML IVP STA ×4 (08:20→08:56)
[2019-10-27] MEDS ORDERED: SODIUM CHLORIDE 0.9% 1,000 ML IV STA ×2 (08:21→09:00)
[2019-10-27 08:28] LABS: Glucose,Whole Blood 21 mg/dL (75-99)
[2019-10-27 08:28] LABS: Glucose,Whole Blood 26 mg/dL (75-99)
[2019-10-27 08:28] LABS: Glucose,Whole Blood 28 mg/dL (75-99)
[2019-10-27 08:28] LABS: Glucose,Whole Blood 24 mg/dL (75-99)
[2019-10-27 08:28] LABS: Glucose,Whole Blood 25 mg/dL (75-99)
[2019-10-27] MEDS ORDERED: GLUCAGON 1 MG/ML VIAL IVP STA (08:30)
[2019-10-27] MEDS: NOREPINEPHRINE 4 MG in SODIUM CHLORIDE 0.9% 250 ML IV SCH ×3 (08:41→12:30)
[2019-10-27 08:48] LABS: Glucose,Whole Blood 95 mg/dL (75-99)
[2019-10-27 08:48] LABS: Glucose,Whole Blood <20 mg/dL (75-99)
[2019-10-27 08:59] LABS: Glucose,Whole Blood 44 mg/dL (75-99)
[2019-10-27] MEDS ORDERED: DEXTROSE 10% IN WATER 1,000 ML IV ONE (09:00)
--- NOTE | 2019-10-27 09:04 | XR ---
EXAMINATION TYPE: XR chest 1V portable DATE OF EXAM: 10/27/2019 HISTORY: cardiac arrest. REFERENCE: Previous study dated 06/18/2019. FINDINGS: There has been a previous ACDF of the lower cervical spine. The patient has been intubated. The ET tube is somewhat low with its tip 1.8 cm from the brett. The NG tube is within the stomach. A right internal jugular catheter has been inserted. Its tip is in the superior vena cava. Lung volumes are prominent. Heart size upper limits of normal. I suspect small effusions. There is so me alveolar airspace disease present at the right lung base. This may represent developing pneumonia. There is what appears to be a right-sided PICC line in place. Its tip is not the expected location an d is likely in one of the thoracic veins with internal mammary vein. IMPRESSION: 1. LOW-LYING ET TUBE. THIS SHOULD BE A WITH DRAWN APPROXIMATELY 2 CM. 2. MALPOSITIONING OF THE PATIENT'S PICC LINE. 3. DEVELOPING ALVEOLAR AIRSPACE DISEASE IN THE RIGHT LOWER LUNG MAY REPRESENT DEVELOPING PNEUMONIA. THIS REPORT WAS CALLED TO SILAS BIRD IN THE ER AT THE TIME OF REPORTING.
[2019-10-27 09:05] LABS: HCT 23.8 % (39.0-53.0); Hypochromasia Marked; MCH 35.7 pg (25.0-35.0); Macrocytosis Marked; Mean Platelet Volume 11.3; RBC 1.86 m/uL (4.30-5.90); RDW 15.5 % (11.5-15.5); WBC 12.9 k/uL (3.8-10.6)
--- NOTE | 2019-10-27 09:09 | ED ---
CPR HPI - General Chief Complaint: Cardiac Arrest/CPR Stated Complaint: CPR Time Seen by Provider: 10/27/19 08:15 Source: EMS Mode of arrival: EMS Limitations: altered mental status, physical limitation - History of Present Illness Initial Comments: Patient is a 69-year-old male past medical history of liver disease, GI bleed, hypertension who presents to the emergency department as a cardiac arrest patient. A neighbor checked on him this morning. They noted that the patient was struggling with his breathing. Because of this they called EMS. EMS evaluated the patient. He was nonverbal but did answer questions by nodding. They put him in the back of the ambulance and the patient lost pulses. He is found to be in PEA. CPR was from 20 minutes prior to hospital arrival. Repeat rhythm checks demonstrated PEA. Patient received 3 rounds of epinephrine and was intubated in the field. He does arrive pulseless. Remainder of HPI is limited. I'm told by EMS that the patient has no family - Related Data Home Medications Medication Instructions Recorded Confirmed Levothyroxine Sodium [Synthroid] 25 mcg PO DAILY 10/19/18 10/27/19 Sodium Bicarbonate 650 mg PO Q8H 06/18/19 10/27/19 amLODIPine [Norvasc] 5 mg PO DAILY 06/18/19 10/27/19 Epoetin Von-Epbx [Retacrit] 4,000 units SQ Q7D 10/27/19 10/27/19 Escitalopram [Lexapro] 10 mg PO DAILY 10/27/19 10/27/19 Gabapentin [Neurontin] 400 mg PO HS 10/27/19 10/27/19 HYDROcodone/APAP 10-325MG [[place] 1 tab PO Q4HR PRN 10/27/19 10/27/19 10-325] Ipratropium-Albuterol Nebulize 3 ml INHALATION RT-QID 10/27/19 10/27/19 [Duoneb 0.5 mg-3 mg/3 ml Soln] Metoprolol Tartrate [Lopressor] 75 mg PO BID 10/27/19 10/27/19 Omeprazole [PriLOSEC] 20 mg PO BID 10/27/19 10/27/19 Allergies Allergy/AdvReac Type Severity Reaction Status Date / Time No Known Allergies Allergy Verified 10/27/19 13:13 Review of Systems ROS Statement: Those systems with pertinent positive or pertinent negative responses have been documented in the HPI. ROS Other: All systems not noted in ROS Statement are negative. Past Medical History Past Medical History: Asthma, GI Bleed, Hypertension, Liver Disease, Neurologic Disorder, Pneumonia, Renal Disease Additional Past Medical History / Comment(s): Dysphagia, aspiration pneumonia/vented, peg tube placed but staff state with therapy pt recently able to take orals and they are just doing water flushes of peg [id number] also states past 1.5 weeks pt's oral intake has declined and he has refused to supplement with his peg tube-voices concern he will again lose ability to take orals, esophagitis, septic shock, pleural effusion with thoracentesis, pt wears oxygen ATC, GI bleed, calculus of bile duct/stented, acute cholecystitis, pancr eatitis, R femoral pseudoaneurysm with acute blood loss anemia, CKD stage III with chronic anemia, nephrolithiasis, UTI, past ETOH abuse, alcoholic fatty liver, chronic generalized pain, muscle weakness, insomnia, protein calorie malnutrition, defiency of vitamis, thrombocytopenia, skin tear L buttock. History of Any Multi-Drug Resistant Organisms: ESBL Date of last positivie culture/infection: 06/19/19 MDRO Source:: ESBL ABDOMEN Past Surgical History: Orthopedic Surgery Additional Past Surgical History / Comment(s): Peg tube, R femoral pseudoaneurysm repair, C3-6 cervical surgery/plate, bilateral cataract removal with lens implants, umbilical hernia as a baby, bile duct stent, ERCP, Past Anesthesia/Blood Transfusion Reactions: No Reported Reaction Past Psychological History: No Psychological Hx Reported Smoking Status: Unknown if ever smoked Past Alcohol Use History: None Reported Past Drug Use History: None Reported - Past Family History Father Family Medical History: Cancer Additional Family Medical History / Comment(s): Melanoma Mother Family Medical History: Cancer Additional Family Medical History / Comment(s): Breast cancer. General Exam Limitations: altered mental status, physical limitation Head exam: Present: atraumatic, normocephalic, normal inspection Eye exam: Present: other (4 mm, fixed, dilated) ENT exam: Present: mucous membranes dry Neck exam: Present: normal inspection. Absent: tenderness, meningismus, lymphadenopathy Respiratory exam: Present: other (bagged respirations by ET tube placed in field, coarse bilateral lung sounds) Cardiovascular Exam: Present: other (pulseless upon arrival) GI/Abdominal exam: Present: soft, other (healed peg tube site over left abdomen). Absent: distended Extremities exam: Present: other (no spontaneous movements) Neurological exam: Present: other (no response to painful stimuli. No gag. ) Skin exam: Present: mottled Course Vital Signs 10/27/19 10/27/19 10/27/19 08:10 08:15 08:34 Temperature Pulse Rate 97 95 67 Respiratory 18 12 12 Rate Blood Pressure 160/99 119/66 78/54 O2 Sat by Pulse 98 95 100 Oximetry 10/27/19 10/27/19 10/27/19 09:04 09:20 10:00 Temperature 91 F L 90.0 F L Pulse Rate 56 L 56 L 51 L Respiratory 12 12 12 Rate Blood Pressure 75/52 89/53 91/60 O2 Sat by Pulse 96 92 L Oximetry 10/27/19 10/27/19 10/27/19 10:30 11:38 11:48 Temperature 91 F L 92 F L 93 F L Pulse Rate 54 L 56 L 58 L Respiratory 12 12 12 Rate Blood Pressure 94/65 91/57 86/58 O2 Sat by Pulse Oximetry 10/27/19 10/27/19 12:05 12:18 Temperature 93 F L 93.1 F L Pulse Rate 60 59 L Respiratory 12 12 Rate Blood Pressure 91/55 96/65 O2 Sat by Pulse Oximetry - Reevaluation(s) Reevaluation #1: Spoke with Dr. Fink. recommended retraction ET tube 2 cm. This is conveyed to respiratory. We will retract to 25 cm 10/27/19 09:06 Procedures - Central Line Placement Right IJ Consent Obtained: emergent situation Patient Placed on Monitor/Pulse Ox: Yes Prep: mask, gown, gloves Ultrasound Used for Placement: Yes Central Line Lumen Inserted: triple Bloods Obtained for Lab: Yes Central Line Position: good blood return, all ports aspirated, flushed, capped, sutured in place with nylon Dressing Applied: Tegaderm Post Procedure X-Ray: tip of catheter in good position Patient Tolerated Procedure: well, no complications Complications: none Medical Decision Making - Medical Decision Making Upon arrival patient is placed into trauma bay 2. A thorough physical exam is performed. Patient does arrive pulseless with the [place] device going. We do provide the patient with a dose of epinephrine. He has been on for approximately 20 minutes. Pulses checked after 3 minutes and does demonstrate a normal sinus rhythm. EKG is obtained. Patient given 2 L Normal saline. Labor atory studies were conducted. A portable chest x-ray is performed. Chest x-ray demonstrates low-lying ET tube. It is then retracted 2 cm to 22 cm. also demonstrates malposition of the patient's PICC line. Developing alveolar airspace disease in the right lung. Blood cultures were obtained. Patient was given Rocephin and azithromycin. Laboratory studies are remarkable for hemoglobin of 6.6. Patient is typed and screened and transfused 1 unit of blood. He does have history of liver failure with GI bleeding. Platelets are 46. PT and INR 44.6 and 4.5. Patient is not on Coumadin, suspected from protein calorie malnutrition. Patient given 10 mg of vitamin K due to suspected active bleeding. Gas demonstrates pH of 6.9. Bicarb 7. Patient is given 2 A of bicarb. Patient is also persistently hypoglycemic. He did receive 3 A of dextrose over multiple Accu-Cheks and is started on a D10 drip. Patient does have an accucheck on 800 obtained in the ER however this is a false reading as it was taken off the central line shortly after the patient received an amp dextrose. Patient's sodium 129. Elevated AST and ALTs. I did place a central line in the patient's right groin. He is started on Levophed for persistent hypotension. CT of the brain is performed which demonstrates no acute intracranial abnormality. Old lacunar infarct. CT of the chest and pelvis is performed without contrast due to patient's chronic kidney disease with creatinine of 2.6. CT demonstrates no acute process. Patient pupils was fixed and dilated upon arrival to the emergency room. Patient continues to remain fixed and dilated without purposeful activity. He is not sedated. I discussed case with Dr. Adams and Dr. Singh who accepted admission to the ICU. No family is present to update. Patient is transported in critical condition to the ICU - Lab Data Result diagrams: 10/29/19 07:07 10/29/19 19:40 Lab Results 10/27/19 10/27/19 10/27/19 Range/Units 08:10 08:15 08:20 WBC (3.8-10.6) k/uL RBC (4.30-5.90) m/uL Hgb (13.0-17.5) gm/dL Hct (39.0-53.0) % MCV (80.0-100.0) fL MCH (25.0-35.0) pg MCHC (31.0-37.0) g/dL RDW (11.5-15.5) % Plt Count (150-450) k/uL Neutrophils % Neutrophils % (Manual) % Band Neutrophils % % Lymphocytes % Lymphocytes % (Manual) % Monocytes % Monocytes % (Manual) % Eosinophils % Basophils % Metamyelocytes % % Myelocytes % % Neutrophils # Neutrophils # (Manual) (1.3-7.7) k/uL Lymphocytes # Lymphocytes # (Manual) (1.0-4.8) k/uL Monocytes # Monocytes # (Manual) (0-1.0) k/uL Eosinophils # Basophils # Metamyelocytes # (Man) (0) k/uL Myelocytes # (Manual) (0) k/uL Nucleated RBCs (0-0) /100 WBC Manual Slide Review Large Platelets Hypochromasia Poikilocytosis (manual Macrocytosis PT (9.0-12.0) sec INR (<1.2) APTT (22.0-30.0) sec Sample Site ABG pH (7.35-7.45) ABG pCO2 (35-45) mmHg ABG pO2 (83-108) mmHg ABG HCO3 (21-25) mmol/L ABG Total CO2 (19-24) mmol/L ABG O2 Saturation (94-97) % ABG Base Excess mmol/L Andreas Test FiO2 % Sodium (137-145) mmol/L Potassium (3.5-5.1) mmol/L Chloride (98-107) mmol/L Carbon Dioxide (22-30) mmol/L Anion Gap mmol/L BUN (9-20) mg/dL Creatinine (0.66-1.25) mg/dL Est GFR (CKD-EPI)AfAm (>60 ml/min/1.73 sqM) Est GFR (CKD-EPI)NonAf (>60 ml/min/1.73 sqM) Glucose (74-99) mg/dL POC Glucose (mg/dL) 26 L 21 L 25 L (75-99) mg/dL POC Glu Environmental Science Program Director ID Obed Jensen, Obed Jenesn, Obed Lactic Ac Sepsis Rflx Plasma Lactic Acid Fred (0.7-2.0) mmol/L Calcium (8.4-10.2) mg/dL Total Bilirubin (0.2-1.3) mg/dL AST (17-59) U/L ALT (4-49) U/L Alkaline Phosphatase (38-126) U/L CK-MB (CK-2) (0.0-2.4) ng/mL Troponin I (0.000-0.034) ng/mL Total Protein (6.3-8.2) g/dL Albumin (3.5-5.0) g/dL Lipase (23-300) U/L TSH (0.465-4.680) mIU/L Blood Type Blood Type Recheck Bld Type Recheck Status Antibody Screen Crossmatch Spec Expiration Date 10/27/19 10/27/19 10/27/19 Range/Units 08:26 08:27 08:33 WBC (3.8-10.6) k/uL RBC (4.30-5.90) m/uL Hgb (13.0-17.5) gm/dL Hct (39.0-53.0) % MCV (80.0-100.0) fL MCH (25.0-35.0) pg MCHC (31.0-37.0) g/dL RDW (11.5-15.5) % Plt Count (150-450) k/uL Neutrophils % Neutrophils % (Manual) % Band Neutrophils % % Lymphocytes % Lymphocytes % (Manual) % Monocytes % Monocytes % (Manual) % Eosinophils % Basophils % Metamyelocytes % % Myelocytes % % Neutrophils # Neutrophils # (Manual) (1.3-7.7) k/uL Lymphocytes # Lymphocytes # (Manual) (1.0-4.8) k/uL Monocytes # Monocytes # (Manual) (0-1.0) k/uL Eosinophils # Basophils # Metamyelocytes # (Man) (0) k/uL Myelocytes # (Manual) (0) k/uL Nucleated RBCs (0-0) /100 WBC Manual Slide Review Large Platelets Hypochromasia Poikilocytosis (manual Macrocytosis PT (9.0-12.0) sec INR (<1.2) APTT (22.0-30.0) sec Sample Site ABG pH (7.35-7.45) ABG pCO2 (35-45) mmHg ABG pO2 (83-108) mmHg ABG HCO3 (21-25) mmol/L ABG Total CO2 (19-24) mmol/L ABG O2 Saturation (94-97) % ABG Base Excess mmol/L Andreas Test FiO2 % Sodium (137-145) mmol/L Potassium (3.5-5.1) mmol/L Chloride (98-107) mmol/L Carbon Dioxide (22-30) mmol/L Anion Gap mmol/L BUN (9-20) mg/dL Creatinine (0.66-1.25) mg/dL Est GFR (CKD-EPI)AfAm (>60 ml/min/1.73 sqM) Est GFR (CKD-EPI)NonAf (>60 ml/min/1.73 sqM) Glucose (74-99) mg/dL POC Glucose (mg/dL) 24 L 28 L <20 L (75-99) mg/dL POC Glu Environmental Science Program Director Obed Romano, Obed Naqvi Lactic Ac Sepsis Rflx Plasma Lactic Acid Fred (0.7-2.0) mmol/L Calcium (8.4-10.2) mg/dL Total Bilirubin (0.2-1.3) mg/dL AST (17-59) U/L ALT (4-49) U/L Alkaline Phosphatase (38-126) U/L CK-MB (CK-2) (0.0-2.4) ng/mL Troponin I (0.000-0.034) ng/mL Total Protein (6.3-8.2) g/dL Albumin (3.5-5.0) g/dL Lipase (23-300) U/L TSH (0.465-4.680) mIU/L Blood Type Blood Type Recheck Bld Type Recheck Status Antibody Screen Crossmatch Spec Expiration Date 10/27/19 10/27/19 10/27/19 Range/Units 08:37 08:50 08:50 WBC 12.9 H (3.8-10.6) k/uL RBC 1.86 L (4.30-5.90) m/uL Hgb 6.6 L* D (13.0-17.5) gm/dL Hct 23.8 L (39.0-53.0) % MCV 127.9 H D (80.0-100.0) fL MCH 35.7 H (25.0-35.0) pg MCHC 28.0 L (31.0-37.0) g/dL RDW 15.5 (11.5-15.5) % Plt Count 46 L D (150-450) k/uL Neutrophils % Not Reportable Neutrophils % (Manual) 89 % Band Neutrophils % 2 % Lymphocytes % Not Reportable Lymphocytes % (Manual) 8 % Monocytes % Not Reportable Monocytes % (Manual) 1 % Eosinophils % Not Reportable Basophils % Not Reportable Metamyelocytes % 1 % Myelocytes % 1 % Neutrophils # Not Reportable Neutrophils # (Manual) 11.70 H (1.3-7.7) k/uL Lymphocytes # Not Reportable Lymphocytes # (Manual) 1.03 (1.0-4.8) k/uL Monocytes # Not Reportable Monocytes # (Manual) 0.13 (0-1.0) k/uL Eosinophils # Not Reportable Basophils # Not Reportable Metamyelocytes # (Man) 0.13 H (0) k/uL Myelocytes # (Manual) 0.13 H (0) k/uL Nucleated RBCs 0 (0-0) /100 WBC Manual Slide Review Performed Large Platelets Present Hypochromasia Marked Poikilocytosis (manual Present Macrocytosis Marked A PT 44.6 H (9.0-12.0) sec INR 4.5 H (<1.2) APTT 185.5 H* (22.0-30.0) sec Sample Site ABG pH (7.35-7.45) ABG pCO2 (35-45) mmHg ABG pO2 (83-108) mmHg ABG HCO3 (21-25) mmol/L ABG Total CO2 (19-24) mmol/L ABG O2 Saturation (94-97) % ABG Base Excess mmol/L Andreas Test FiO2 % Sodium (137-145) mmol/L Potassium (3.5-5.1) mmol/L Chloride (98-107) mmol/L Carbon Dioxide (22-30) mmol/L Anion Gap mmol/L BUN (9-20) mg/dL Creatinine (0.66-1.25) mg/dL Est GFR (CKD-EPI)AfAm (>60 ml/min/1.73 sqM) Est GFR (CKD-EPI)NonAf (>60 ml/min/1.73 sqM) Glucose (74-99) mg/dL POC Glucose (mg/dL) 95 (75-99) mg/dL POC Glu Environmental Science Program Director Obed Romano Lactic Ac Sepsis Rflx Plasma Lactic Acid Fred (0.7-2.0) mmol/L Calcium (8.4-10.2) mg/dL Total Bilirubin (0.2-1.3) mg/dL AST (17-59) U/L ALT (4-49) U/L Alkaline Phosphatase (38-126) U/L CK-MB (CK-2) (0.0-2.4) ng/mL Troponin I (0.000-0.034) ng/mL Total Protein (6.3-8.2) g/dL Albumin (3.5-5.0) g/dL Lipase (23-300) U/L TSH (0.465-4.680) mIU/L Blood Type Blood Type Recheck Bld Type Recheck Status Antibody Screen Crossmatch Spec Expiration Date 10/27/19 10/27/19 10/27/19 Range/Units 08:50 08:50 08:50 WBC (3.8-10.6) k/uL RBC (4.30-5.90) m/uL Hgb (13.0-17.5) gm/dL Hct (39.0-53.0) % MCV (80.0-100.0) fL MCH (25.0-35.0) pg MCHC (31.0-37.0) g/dL RDW (11.5-15.5) % Plt Count (150-450) k/uL Neutrophils % Neutrophils % (Manual) % Band Neutrophils % % Lymphocytes % Lymphocytes % (Manual) % Monocytes % Monocytes % (Manual) % Eosinophils % Basophils % Metamyelocytes % % Myelocytes % % Neutrophils # Neutrophils # (Manual) (1.3-7.7) k/uL Lymphocytes # Lymphocytes # (Manual) (1.0-4.8) k/uL Monocytes # Monocytes # (Manual) (0-1.0) k/uL Eosinophils # Basophils # Metamyelocytes # (Man) (0) k/uL Myelocytes # (Manual) (0) k/uL Nucleated RBCs (0-0) /100 WBC Manual Slide Review Large Platelets Hypochromasia Poikilocytosis (manual Macrocytosis PT (9.0-12.0) sec INR (<1.2) APTT (22.0-30.0) sec Sample Site ABG pH (7.35-7.45) ABG pCO2 (35-45) mmHg ABG pO2 (83-108) mmHg ABG HCO3 (21-25) mmol/L ABG Total CO2 (19-24) mmol/L ABG O2 Saturation (94-97) % ABG Base Excess mmol/L Andreas Test FiO2 % Sodium 129 L (137-145) mmol/L Potassium 3.9 (3.5-5.1) mmol/L Chloride 111 H (98-107) mmol/L Carbon Dioxide 8 L* (22-30) mmol/L Anion Gap 10 mmol/L BUN 26 H (9-20) mg/dL Creatinine 2.62 H (0.66-1.25) mg/dL Est GFR (CKD-EPI)AfAm 28 (>60 ml/min/1.73 sqM) Est GFR (CKD-EPI)NonAf 24 (>60 ml/min/1.73 sqM) Glucose 800 H* (74-99) mg/dL POC Glucose (mg/dL) (75-99) mg/dL POC Glu Environmental Science Program Director ID Lactic Ac Sepsis Rflx Plasma Lactic Acid Fred 7.8 H* (0.7-2.0) mmol/L Calcium 5.5 L* (8.4-10.2) mg/dL Total Bilirubin 1.1 (0.2-1.3) mg/dL AST 2522 H (17-59) U/L ALT 317 H (4-49) U/L Alkaline Phosphatase 101 (38-126) U/L CK-MB (CK-2) 1.1 (0.0-2.4) ng/mL Troponin I <0.012 (0.000-0.034) ng/mL Total Protein 2.6 L (6.3-8.2) g/dL Albumin <1.0 L (3.5-5.0) g/dL Lipase <10 L (23-300) U/L TSH 1.420 (0.465-4.680) mIU/L Blood Type Blood Type Recheck Bld Type Recheck Status Antibody Screen Crossmatch Spec Expiration Date 10/27/19 10/27/19 10/27/19 Range/Units 08:53 09:10 09:15 WBC (3.8-10.6) k/uL RBC (4.30-5.90) m/uL Hgb (13.0-17.5) gm/dL Hct (39.0-53.0) % MCV (80.0-100.0) fL MCH (25.0-35.0) pg MCHC (31.0-37.0) g/dL RDW (11.5-15.5) % Plt Count (150-450) k/uL Neutrophils % Neutrophils % (Manual) % Band Neutrophils % % Lymphocytes % Lymphocytes % (Manual) % Monocytes % Monocytes % (Manual) % Eosinophils % Basophils % Metamyelocytes % % Myelocytes % % Neutrophils # Neutrophils # (Manual) (1.3-7.7) k/uL Lymphocytes # Lymphocytes # (Manual) (1.0-4.8) k/uL Monocytes # Monocytes # (Manual) (0-1.0) k/uL Eosinophils # Basophils # Metamyelocytes # (Man) (0) k/uL Myelocytes # (Manual) (0) k/uL Nucleated RBCs (0-0) /100 WBC Manual Slide Review Large Platelets Hypochromasia Poikilocytosis (manual Macrocytosis PT (9.0-12.0) sec INR (<1.2) APTT (22.0-30.0) sec Sample Site ABG pH (7.35-7.45) ABG pCO2 (35-45) mmHg ABG pO2 (83-108) mmHg ABG HCO3 (21-25) mmol/L ABG Total CO2 (19-24) mmol/L ABG O2 Saturation (94-97) % ABG Base Excess mmol/L Andreas Test FiO2 % Sodium (137-145) mmol/L Potassium (3.5-5.1) mmol/L Chloride (98-107) mmol/L Carbon Dioxide (22-30) mmol/L Anion Gap mmol/L BUN (9-20) mg/dL Creatinine (0.66-1.25) mg/dL Est GFR (CKD-EPI)AfAm (>60 ml/min/1.73 sqM) Est GFR (CKD-EPI)NonAf (>60 ml/min/1.73 sqM) Glucose (74-99) mg/dL POC Glucose (mg/dL) 44 L 192 H (75-99) mg/dL POC Glu Environmental Science Program Director ID Washburn, Janay Washburn, Janay Lactic Ac Sepsis Rflx Plasma Lactic Acid Fred (0.7-2.0) mmol/L Calcium (8.4-10.2) mg/dL Total Bilirubin (0.2-1.3) mg/dL AST (17-59) U/L ALT (4-49) U/L Alkaline Phosphatase (38-126) U/L CK-MB (CK-2) (0.0-2.4) ng/mL Troponin I (0.000-0.034) ng/mL Total Protein (6.3-8.2) g/dL Albumin (3.5-5.0) g/dL Lipase (23-300) U/L TSH (0.465-4.680) mIU/L Blood Type A Positive Blood Type Recheck A Pos Bld Type Recheck Status No Antibody Screen NEGATIVE Crossmatch See Detail Spec Expiration Date 10/30/2019 - 231410/27/19 10/27/19 10/27/19 Range/Units 09:15 09:20 09:22 WBC (3.8-10.6) k/uL RBC (4.30-5.90) m/uL Hgb (13.0-17.5) gm/dL Hct (39.0-53.0) % MCV (80.0-100.0) fL MCH (25.0-35.0) pg MCHC (31.0-37.0) g/dL RDW (11.5-15.5) % Plt Count (150-450) k/uL Neutrophils % Neutrophils % (Manual) % Band Neutrophils % % Lymphocytes % Lymphocytes % (Manual) % Monocytes % Monocytes % (Manual) % Eosinophils % Basophils % Metamyelocytes % % Myelocytes % % Neutrophils # Neutrophils # (Manual) (1.3-7.7) k/uL Lymphocytes # Lymphocytes # (Manual) (1.0-4.8) k/uL Monocytes # Monocytes # (Manual) (0-1.0) k/uL Eosinophils # Basophils # Metamyelocytes # (Man) (0) k/uL Myelocytes # (Manual) (0) k/uL Nucleated RBCs (0-0) /100 WBC Manual Slide Review Large Platelets Hypochromasia Poikilocytosis (manual Macrocytosis PT (9.0-12.0) sec INR (<1.2) APTT (22.0-30.0) sec Sample Site ABG pH (7.35-7.45) ABG pCO2 (35-45) mmHg ABG pO2 (83-108) mmHg ABG HCO3 (21-25) mmol/L ABG Total CO2 (19-24) mmol/L ABG O2 Saturation (94-97) % ABG Base Excess mmol/L Andreas Test FiO2 % Sodium (137-145) mmol/L Potassium (3.5-5.1) mmol/L Chloride (98-107) mmol/L Carbon Dioxide (22-30) mmol/L Anion Gap mmol/L BUN (9-20) mg/dL Creatinine (0.66-1.25) mg/dL Est GFR (CKD-EPI)AfAm (>60 ml/min/1.73 sqM) Est GFR (CKD-EPI)NonAf (>60 ml/min/1.73 sqM) Glucose (74-99) mg/dL POC Glucose (mg/dL) >600 H 205 H (75-99) mg/dL POC Glu Environmental Science Program Director ID Washburn, Janay Washburn, Janay Lactic Ac Sepsis Rflx Y Plasma Lactic Acid Fred (0.7-2.0) mmol/L Calcium (8.4-10.2) mg/dL Total Bilirubin (0.2-1.3) mg/dL AST (17-59) U/L ALT (4-49) U/L Alkaline Phosphatase (38-126) U/L CK-MB (CK-2) (0.0-2.4) ng/mL Troponin I (0.000-0.034) ng/mL Total Protein (6.3-8.2) g/dL Albumin (3.5-5.0) g/dL Lipase (23-300) U/L TSH (0.465-4.680) mIU/L Blood Type Blood Type Recheck Bld Type Recheck Status Antibody Screen Crossmatch Spec Expiration Date 10/27/19 Range/Units 09:50 WBC (3.8-10.6) k/uL RBC (4.30-5.90) m/uL Hgb (13.0-17.5) gm/dL Hct (39.0-53.0) % MCV (80.0-100.0) fL MCH (25.0-35.0) pg MCHC (31.0-37.0) g/dL RDW (11.5-15.5) % Plt Count (150-450) k/uL Neutrophils % Neutrophils % (Manual) % Band Neutrophils % % Lymphocytes % Lymphocytes % (Manual) % Monocytes % Monocytes % (Manual) % Eosinophils % Basophils % Metamyelocytes % % Myelocytes % % Neutrophils # Neutrophils # (Manual) (1.3-7.7) k/uL Lymphocytes # Lymphocytes # (Manual) (1.0-4.8) k/uL Monocytes # Monocytes # (Manual) (0-1.0) k/uL Eosinophils # Basophils # Metamyelocytes # (Man) (0) k/uL Myelocytes # (Manual) (0) k/uL Nucleated RBCs (0-0) /100 WBC Manual Slide Review Large Platelets Hypochromasia Poikilocytosis (manual Macrocytosis PT (9.0-12.0) sec INR (<1.2) APTT (22.0-30.0) sec Sample Site rbrac ABG pH 6.90 L* (7.35-7.45) ABG pCO2 37 (35-45) mmHg ABG pO2 >400 H (83-108) mmHg ABG HCO3 7 L* (21-25) mmol/L ABG Total CO2 8 L (19-24) mmol/L ABG O2 Saturation 98.3 H (94-97) % ABG Base Excess -25.7 mmol/L Andreas Test Yes FiO2 100 % Sodium (137-145) mmol/L Potassium (3.5-5.1) mmol/L Chloride (98-107) mmol/L Carbon Dioxide (22-30) mmol/L Anion Gap mmol/L BUN (9-20) mg/dL Creatinine (0.66-1.25) mg/dL Est GFR (CKD-EPI)AfAm (>60 ml/min/1.73 sqM) Est GFR (CKD-EPI)NonAf (>60 ml/min/1.73 sqM) Glucose (74-99) mg/dL POC Glucose (mg/dL) (75-99) mg/dL POC Glu Environmental Science Program Director ID Lactic Ac Sepsis Rflx Plasma Lactic Acid Fred (0.7-2.0) mmol/L Calcium (8.4-10.2) mg/dL Total Bilirubin (0.2-1.3) mg/dL AST (17-59) U/L ALT (4-49) U/L Alkaline Phosphatase (38-126) U/L CK-MB (CK-2) (0.0-2.4) ng/mL Troponin I (0.000-0.034) ng/mL Total Protein (6.3-8.2) g/dL Albumin (3.5-5.0) g/dL Lipase (23-300) U/L TSH (0.465-4.680) mIU/L Blood Type Blood Type Recheck Bld Type Recheck Status Antibody Screen Crossmatch Spec Expiration Date - EKG Data EKG Comments: EKG demonstrates a sinus rhythm with a first-degree block. Rate of 96. NC interval to 26. QRS 92. QTC of 409. There is some ST depression in 2, 3 and aVF. V5 through V6. No acute ST segment elevation Critical Care Time Critical Care Time: Yes Critical Care Time: 48 minutes Disposition Clinical Impression: Cardiac arrest, Hypoxia, Anemia, Liver failure, Chronic kidney failure, Protein-calorie malnutrition, severe Disposition: ADMITTED IP TO THIS [facility] Condition: Critical Is patient prescribed a controlled substance at d/c from ED?: No Decision to Admit Reason: Admit from EC Decision Date: 10/27/19 Decision Time: 12:13
[2019-10-27 09:23] LABS: INR 4.5 (<1.2); Prothrombin Time 44.6 sec (9.0-12.0)
[2019-10-27] MEDS ORDERED: AZITHROMYCIN 500 MG in SODIUM CHLORIDE 0.9% 250 ML IVPB STA (09:25)
[2019-10-27] MEDS ORDERED: cefTRIAXone IN SWFI 1,000 MG/10 ML SYRINGE IVP STA (09:25)
[2019-10-27 09:28] LABS: Partial Thromboplastin Time 185.5 sec (22.0-30.0)
[2019-10-27] MEDS ORDERED: SODIUM CHLORIDE 0.9% 1,000 ML IV ONE ×3 (09:28→18:24)
[2019-10-27 09:30] LABS: HGB 6.6 gm/dL (13.0-17.5); MCV 127.9 fL (80.0-100.0)
[2019-10-27 09:33] LABS: Glucose,Whole Blood >600 mg/dL (75-99)
[2019-10-27 09:33] LABS: Glucose,Whole Blood 192 mg/dL (75-99)
[2019-10-27 09:33] LABS: Glucose,Whole Blood 205 mg/dL (75-99)
[2019-10-27 09:36] LABS: Creatine Kinase MB 1.1 ng/mL (0.0-2.4); Troponin I <0.012 ng/mL (0.000-0.034)
[2019-10-27 09:44] LABS: African American GFR (CKD) 28 (>60 ml/min/1.73 sqM); Alkaline Phosphatase 101 U/L (38-126); Blood Urea Nitrogen 26 mg/dL (9-20); Chloride 111 mmol/L (98-107); Non-African American GFR(CKD) 24 (>60 ml/min/1.73 sqM); Potassium 3.9 mmol/L (3.5-5.1); Sodium 129 mmol/L (137-145); Total Bilirubin 1.1 mg/dL (0.2-1.3)
[2019-10-27 09:47] LABS: Band Neutrophils % 2 %; Lymphocytes # (M) 1.03 k/uL (1.0-4.8); Metamyelocytes # (M) 0.13 k/uL (0); Metamyelocytes % 1 %; Monocytes # (M) 0.13 k/uL (0-1.0); Myelocytes # (M) 0.13 k/uL (0); Myelocytes % 1 %; Neutrophils % (M) 89 %; Nucleated Red Blood Cells 0 /100 WBC (0-0); Poikilocytosis (M) Present; Total Cells Counted 200
[2019-10-27 09:48] LABS: Large Platelets Present; Platelet Count 46 k/uL (150-450)
[2019-10-27 09:49] LABS: Anion Gap 10 mmol/L
[2019-10-27 09:54] LABS: ABG Base Excess -25.7 mmol/L; ABG Oxygen Saturation 98.3 % (94-97); ABG PCO2 37 mmHg (35-45); ABG PO2 >400 mmHg (83-108); ABG TCO2 8 mmol/L (19-24); Allen Test Performed? Yes
[2019-10-27 09:57] LABS: Glucose 800 mg/dL (74-99)
[2019-10-27 09:58] LABS: Calcium 5.5 mg/dL (8.4-10.2); Carbon Dioxide 8 mmol/L (22-30)
[2019-10-27 09:59] LABS: Albumin <1.0 g/dL (3.5-5.0); Total Protein 2.6 g/dL (6.3-8.2)
[2019-10-27 10:00] LABS: ALT 317 U/L (4-49)
[2019-10-27] MEDS ORDERED: SODIUM BICARB 8.4% 50 ML SYR (1 MEQ/ML) IV STA ×4 (10:00→14:44)
[2019-10-27 10:11] LABS: AST 2522 U/L (17-59)
[2019-10-27 10:17] LABS: ABG HCO3 7 mmol/L (21-25)
[2019-10-27] MEDS ORDERED: PHYTONADIONE 10 MG in SODIUM CHLORIDE 0.9% 50 ML IVPB STA (12:10)
[2019-10-27] MEDS ORDERED: NALOXONE 0.4 MG/ML 1 ML VIAL IV PRN (12:14)
--- NOTE | 2019-10-27 12:27 | CT ---
EXAMINATION TYPE: CT brain wo con DATE OF EXAM: 10/27/2019 COMPARISON: Previous study dated 10/06/2018 HISTORY: Altered mental status CT DLP: 1102 mGycm Automated exposure control for dose reduction was used. FINDINGS: There are generalized changes of sulcal prominence and ventriculomegaly, compatible with atrophic giuliana nge. There is diffuse periventricular white matter lucency compatible with chronic ischemic change. T here is evidence of an old lacunar infarct in the jung radiata on the right. There is no mass effec t, midline shift or intracranial blood identified. Visualized portions of the paranasal sinuses and mastoids are clear. The bony calvarium is intact IMPRESSION: 1. NO ACUTE INTRACRANIAL ABNORMALITY. 2. OLD LACUNAR INFARCT IN THE JUNG RADIATA ON THE RIGHT. 3. ATROPHIC CHANGE. 4. CHRONIC WHITE MATTER ISCHEMIC CHANGE.
[2019-10-27] MEDS: SODIUM CHLORIDE 0.9% 1,000 ML IV SCH (12:33)
--- NOTE | 2019-10-27 12:40 | CT ---
EXAMINATION TYPE: CT ChestAbdPelvis wo con DATE OF EXAM: 10/27/2019 COMPARISON: Previous study dated 10/06/2018. HISTORY: Hypotension CT DLP: 553.2 mGycm Automated exposure control for dose reduction was used. TECHNIQUE: Helical acquisition through the abdomen and pelvis was obtained without oral contrast but following the intravenous administration of mL of . The data was formatted in the axial, coronal and sagittal projections. FINDINGS: There are bilateral pleural effusions. There is consolidation at the left lung base and to a lesser extent the right lung base. There is patchy and diffuse groundglass appearance more marked i n the lower than the upper lobes. There is underlying emphysematous change. There is been a previous ACDF in the lower cervical spine. An ET tube and NG tube are in place in goo d position. There is no significant axillary or mediastinal adenopathy. There is approximately 7.2 mm of pericard ial thickening or fluid. There is calcification of the coronary arteries. The heart is enlarged. Within the abdomen, the liver is normal in size but hypoattenuating and likely fatty infiltrated. The gallbladder is unremarkable. The spleen is normal in size. Both adrenal glands are normal. There is no evidence of hydronephrosis or nephrolithiasis. There is extensive calcification of the pancreas indicating chronic calcific pancreatitis. There is no significant retroperitoneal, iliac or inguinal adenopathy. There is a Zhu catheter within the bladder. There is a rectal tube in place. There is thickening of the wall of the sigmoid colon and to a lesser extent the distal descending col on. The remainder of the colon has a more normal appearance. The appendix is not visualized with cert ainty. Small bowel loops are slightly prominent but there is no evidence of obstruction. There is no significant free fluid and there is no free air. There is facet arthropathy, degenerative disc disease and hypertrophic spondylosis within the spine. IMPRESSION: 1. SMALL, BILATERAL EFFUSIONS. 2. BIBASILAR AIRSPACE DISEASE. 3. EMPHYSEMATOUS CHANGES WITHIN THE LUNGS WITH ASSOCIATED GROUNDGLASS OPACITY MAY REPRESENT ONGOING A LVEOLITIS. 4. MILD PERICARDIAL FLUID OR THICKENING. 5. FATTY INFILTRATION OF THE LIVER. 6. EVIDENCE OF CHRONIC CALCIFIC PANCREATITIS. 7. THICKENING OF THE WALL OF THE SIGMOID COLON. PLEASE CORRELATE FOR COLITIS. 8. DEGENERATIVE CHANGES WITHIN THE SPINE.
[2019-10-27 13:36] LABS: Glucose,Whole Blood 505 mg/dL (75-99)
[2019-10-27 13:54] LABS: Glucose,Whole Blood 423 mg/dL (75-99)
[2019-10-27] MEDS ORDERED: propofoL 100 ML IV ONE (13:55)
[2019-10-27 14:38] LABS: Glucose,Whole Blood 426 mg/dL (75-99)
[2019-10-27 14:44] LABS: ABG Base Excess -12.8 mmol/L; ABG HCO3 15 mmol/L (21-25); ABG Oxygen Saturation 97.6 % (94-97); ABG PCO2 34 mmHg (35-45); ABG PH 7.24 (7.35-7.45); ABG PO2 121 mmHg (83-108); ABG TCO2 16 mmol/L (19-24)
[2019-10-27 14:45] LABS: Allen Test Performed? no
[2019-10-27 15:00] LABS: Anisocytosis Slight; Basophils % (A) 0 %; Eosinophils % (A) 0 %; HCT 29.9 % (39.0-53.0); Hypochromasia Marked; Lymphocytes # (A) 0.6 k/uL (1.0-4.8); Lymphocytes % (A) 3 %; MCH 33.8 pg (25.0-35.0); MCHC 30.9 g/dL (31.0-37.0); MCV 109.2 fL (80.0-100.0); Macrocytosis Marked; Mean Platelet Volume 11.1; Monocytes # (A) 0.7 k/uL (0-1.0); Monocytes % (A) 3 %; Neutrophils # (A) 18.4 k/uL (1.3-7.7); Neutrophils % (A) 93 %; RBC 2.74 m/uL (4.30-5.90); RDW 17.5 % (11.5-15.5); WBC 19.7 k/uL (3.8-10.6)
[2019-10-27 15:05] LABS: HGB 9.2 gm/dL (13.0-17.5); Platelet Count 55 k/uL (150-450)
[2019-10-27 15:07] LABS: INR 3.9 (<1.2)
[2019-10-27 15:08] LABS: Prothrombin Time 38.6 sec (9.0-12.0)
[2019-10-27 15:12] LABS: Albumin 1.1 g/dL (3.5-5.0); Potassium 3.5 mmol/L (3.5-5.1); Total Bilirubin 1.7 mg/dL (0.2-1.3); Total Protein 3.1 g/dL (6.3-8.2)
[2019-10-27 15:24] LABS: Poikilocytosis (M) Present
[2019-10-27 15:27] LABS: Calcium 5.6 mg/dL (8.4-10.2)
--- NOTE | 2019-10-27 15:48 | P.CNPUL ---
History of Present Illness Consult date: 10/27/19 Requesting physician: Nathaniel Helms Reason for consult: other (Mechanical ventilator/critical care management) Chief complaint: Cardiac arrest History of present illness: This is a 69-year-old gentleman who follows with Dr. Smith as his primary care provider. He has a history of hypertension, alcoholism, previous history of staphylococcal pneumonia and respiratory failure requiring intubation and mechanical ventilation, dysphagia with previous PEG tube placement, chronic kidney disease, hypothyroidism, chronic pancreatitis, previous GI bleed, recurrent UTIs, ERCPs. He is residing at home. His neighbor was checking on him earlier this morning and found him to be having difficulty in breathing. EMS was called. Upon arrival patient was arousable. They put him in the back and the implants and then he lost pulses and was found to be an PEA. CPR was performed for 20 minutes prior to arriving to the hospital. He had received 3 rounds of epinephrine and was tubed in the field. He arrived pulseless. CPR continued and there was return of spontaneous circulation. According to EMS there is no family for this patient. He was subsequently transferred to the intensive care unit he was seen immediately upon arrival. He is intubated on mechanical ventilator with settings of assist control of 20, tidal volume 400, FiO2 50% and a PEEP of 5. Arterial blood gases on 50% FiO2 were 1 PaO2 of 121. PCO2 34. PH 7.24. He has received 3 L of fluid resuscitation. 2 A of bicarb were given. He is sedated on propofol at 30 mcg/kg/m. He is requiring norepinephrine at 0.55 mcg/kg/m. He received 1 dose of Zosyn. Right IJ catheter in place. Left femoral arterial line inserted. Scant urine output. White count 19.7. Hemoglobin 9.2. INR 3.9. Sodium 139. Potassium 3.5. Chlor valente 114. Bicarb 14. Creatinine 2.66. Lactic acid 8.3. ALT 472. AST 2522. Troponin negative 1. Glucose 380. Computed tomography scan of the brain revealed no acute intracranial abnormality. Old lacunar infarct in the jung radiata on the right. Atrophic change. Chronic white matter ischemic change. Computed tomography scan of the chest abdomen and pelvis revealed small bilateral effusions. Bibasilar airspace disease. Emphysematous changes with associated ground glass opacity may represent ongoing alveolitis. Mild pericardial fluid or thickening. Fatty infiltration of the liver. Evidence of chronic calcific pancreatitis. Thickening of the wall of the sigmoid colon. Possible colitis. Degenerative changes of the spine. Review of Systems ROS unobtainable: due to endotracheal tube Past Medical History Past Medical History: Asthma, GI Bleed, Hypertension, Liver Disease, Neurologic Disorder, Pneumonia, Renal Disease Additional Past Medical History / Comment(s): Dysphagia, aspiration pneumonia/vented, peg tube placed but staff state with therapy pt recently able to take orals and they are just doing water flushes of peg [id number] also states past 1.5 weeks pt's oral intake has declined and he has refused to supplement with his peg tube-voices concern he will again lose ability to take orals, esophagitis, septic shock, pleural effusion with thoracentesis, pt wears oxygen ATC, GI bleed, calculus of bile duct/stented, acute cholecystitis, pancreatitis, R femoral pseudoaneurysm with acute blood loss anemia, CKD stage III with chronic anemia, nephrolithiasis, UTI, past ETOH abuse, alcoholic fatty liver, chronic generalized pain, muscle weakness, insomnia, protein calorie malnutrition, defiency of vitamis, thrombocytopenia, skin tear L buttock. History of Any Multi-Drug Resistant Organisms: ESBL Date of last positivie culture/infection: 06/19/19 MDRO Source:: ESBL ABDOMEN Past Surgical History: Orthopedic Surgery Additional Past Surgical History / Comment(s): Peg tube, R femoral pseudoaneurysm repair, C3-6 cervical surgery/plate, bilateral cataract removal with lens implants, umbilical hernia as a baby, bile duct stent, ERCP, Past Anesthesia/Blood Transfusion Reactions: No Reported Reaction Past Psychological History: No Psychological Hx Reported Smoking Status: Unknown if ever smoked Past Alcohol Use History: None Reported Past Drug Use History: None Reported - Past Family History Father Family Medical History: Cancer Additional Family Medical History / Comment(s): Melanoma Mother Family Medical History: Cancer Additional Family Medical History / Comment(s): Breast cancer. Medications and Allergies Home Medications Medication Instructions Recorded Confirmed Type Levothyroxine Sodium [Synthroid] 25 mcg PO DAILY 10/19/18 10/27/19 History Sodium Bicarbonate 650 mg PO Q8H 06/18/19 10/27/19 History amLODIPine [Norvasc] 5 mg PO DAILY 06/18/19 10/27/19 History Epoetin Von-Epbx [Retacrit] 4,000 units SQ Q7D 10/27/19 10/27/19 History Escitalopram [Lexapro] 10 mg PO DAILY 10/27/19 10/27/19 History Gabapentin [Neurontin] 400 mg PO HS 10/27/19 10/27/19 History HYDROcodone/APAP 10-325MG [Romance 1 tab PO Q4HR PRN 10/27/19 10/27/19 History 10-325] Ipratropium-Albuterol Nebulize 3 ml INHALATION RT-QID 10/27/19 10/27/19 History [Duoneb 0.5 mg-3 mg/3 ml Soln] Metoprolol Tartrate [Lopressor] 75 mg PO BID 10/27/19 10/27/19 History Omeprazole [PriLOSEC] 20 mg PO BID 10/27/19 10/27/19 History Allergies Allergy/AdvReac Type Severity Reaction Status Date / Time No Known Allergies Allergy Verified 10/27/19 13:13 Physical Exam Vitals: Vital Signs Temp Pulse Resp BP Pulse Ox 10/27/19 15:00 94.6 F L 52 L 16 100 10/27/19 14:45 52 L 16 100 10/27/19 14:30 53 L 16 100 10/27/19 14:15 60 16 73/55 99 10/27/19 14:00 65 18 85/60 100 10/27/19 13:50 93.2 F L 59 L 20 85/60 98 10/27/19 13:45 92.1 F L 69 20 83/58 100 10/27/19 12:18 93.1 F L 59 L 12 96/65 10/27/19 12:05 93 F L 60 12 91/55 10/27/19 11:48 93 F L 58 L 12 86/58 10/27/19 11:38 92 F L 56 L 12 91/57 10/27/19 10:30 91 F L 54 L 12 94/65 10/27/19 10:00 51 L 12 91/60 10/27/19 09:20 90.0 F L 56 L 12 89/53 92 L 10/27/19 09:04 91 F L 56 L 12 75/52 96 10/27/19 08:34 67 12 78/54 100 10/27/19 08:15 95 12 119/66 95 10/27/19 08:10 97 18 160/99 98 Intake and Output 10/27/19 10/27/19 10/27/19 06:59 14:59 22:59 Intake Total 1658.231 123.476 Output Total 0 0 Balance 1658.231 123.476 Intake: IV 1000 75 Sodium Chloride 0.9% 1, 75 000 ml @ 75 mls/hr IV . [id number] ANTHONY Rx#:[id number] Sodium Chloride 0.9% 1, 1000 000 ml @ 999 mls/hr IV . Q1H1M ONE Rx#:[id number] Intake, IV Titration 348.231 48.476 Amount Norepinephrine 4 mg In 348.231 48.476 Sodium Chloride 0.9% 250 ml @ 0.05 MCG/KG/MIN 9. 505 mls/hr IV .Q24H ANTHONY Rx#:[id number] Blood Product 310 Rc As-1 Unit 310 [id number] Output: Urine 0 0 Other: Weight 58.8 kg ABP, PAP, CO, CI - Last 8 Hours Arterial Blood Pressure 105/42 Arterial Blood Pressure 107/53 Arterial Blood Pressure 86/44 GENERAL EXAM: Intubated, sedated frail, cachectic 69-year-old gentleman on the mechanical ventilator. HEAD: Normocephalic. EYES: Fixed reaction of pupils, dark circles around the pupils, equal size. NOSE: Clear with pink turbinates. THROAT: Orogastric and endotracheal tube secured in place. No erythema or exudates. NECK: No masses, no JVD. Triple-lumen to right IJ CHEST: No chest wall deformity. LUNGS: Equal air entry with no crackles, wheeze, rhonchi or dullness. CVS: S1 and S2 normal with no audible murmur, regular rhythm. ABDOMEN: PEG tube site healed with no redness or swelling or purulent drainage. No hepatosplenomegaly, normal bowel sounds, no guarding or rigidity. SPINE: No scoliosis or deformity SKIN: No rashes CENTRAL NERVOUS SYSTEM: No focal deficits, tone is normal in all 4 extremities. EXTREMITIES: Left femoral arterial line in place. There is no peripheral edema. No clubbing, no cyanosis. Peripheral pulses are intact. Results - Laboratory Findings CBC and BMP: 10/27/19 14:40 10/27/19 14:40 ABG ABG pH 7.24 (7.35-7.45) L 10/27/19 14:34 ABG pCO2 34 mmHg (35-45) L 10/27/19 14:34 ABG pO2 121 mmHg (83-108) H 10/27/19 14:34 ABG O2 Saturation 97.6 % (94-97) H 10/27/19 14:34 PT/INR, D-dimer PT 38.6 sec (9.0-12.0) H 10/27/19 14:40 INR 3.9 (<1.2) H 10/27/19 14:40 Abnormal lab findings: Abnormal Labs 10/27/19 10/27/19 10/27/19 08:10 08:15 08:20 WBC RBC Hgb Hct MCV MCH MCHC RDW Plt Count Neutrophils # Neutrophils # (Manual) Lymphocytes # Metamyelocytes # (Man) Myelocytes # (Manual) Macrocytosis PT INR APTT ABG pH ABG pCO2 ABG pO2 ABG HCO3 ABG Total CO2 ABG O2 Saturation Sodium Chloride Carbon Dioxide BUN Creatinine Glucose POC Glucose (mg/dL) 26 L 21 L 25 L Plasma Lactic Acid Fred Calcium Ionized Calcium Cornelius Total Bilirubin AST ALT Alkaline Phosphatase Total Protein Albumin Lipase Crossmatch 10/27/19 10/27/19 10/27/19 08:26 08:27 08:33 WBC RBC Hgb Hct MCV MCH MCHC RDW Plt Count Neutrophils # Neutrophils # (Manual) Lymphocytes # Metamyelocytes # (Man) Myelocytes # (Manual) Macrocytosis PT INR APTT ABG pH ABG pCO2 ABG pO2 ABG HCO3 ABG Total CO2 ABG O2 Saturation Sodium Chloride Carbon Dioxide BUN Creatinine Glucose POC Glucose (mg/dL) 24 L 28 L <20 L Plasma Lactic Acid Fred Calcium Ionized Calcium Cornelius Total Bilirubin AST ALT Alkaline Phosphatase Total Protein Albumin Lipase Crossmatch 10/27/19 10/27/19 10/27/19 08:50 08:50 08:50 WBC 12.9 H RBC 1.86 L Hgb 6.6 L* D Hct 23.8 L MCV 127.9 H D MCH 35.7 H MCHC 28.0 L RDW Plt Count 46 L D Neutrophils # Neutrophils # (Manual) 11.70 H Lymphocytes # Metamyelocytes # (Man) 0.13 H Myelocytes # (Manual) 0.13 H Macrocytosis Marked A PT 44.6 H INR 4.5 H APTT 185.5 H* ABG pH ABG pCO2 ABG pO2 ABG HCO3 ABG Total CO2 ABG O2 Saturation Sodium 129 L Chloride 111 H Carbon Dioxide 8 L* BUN 26 H Creatinine 2.62 H Glucose 800 H* POC Glucose (mg/dL) Plasma Lactic Acid Fred Calcium 5.5 L* Ionized Calcium Cornelius Total Bilirubin AST 2522 H ALT 317 H Alkaline Phosphatase Total Protein 2.6 L Albumin <1.0 L Lipase <10 L Crossmatch 10/27/19 10/27/19 10/27/19 08:50 08:53 09:10 WBC RBC Hgb Hct MCV MCH MCHC RDW Plt Count Neutrophils # Neutrophils # (Manual) Lymphocytes # Metamyelocytes # (Man) Myelocytes # (Manual) Macrocytosis PT INR APTT ABG pH ABG pCO2 ABG pO2 ABG HCO3 ABG Total CO2 ABG O2 Saturation Sodium Chloride Carbon Dioxide BUN Creatinine Glucose POC Glucose (mg/dL) 44 L 192 H Plasma Lactic Acid Fred 7.8 H* Calcium Ionized Calcium Cornelius Total Bilirubin AST ALT Alkaline Phosphatase Total Protein Albumin Lipase Crossmatch 10/27/19 10/27/19 10/27/19 09:15 09:15 09:22 WBC RBC Hgb Hct MCV MCH MCHC RDW Plt Count Neutrophils # Neutrophils # (Manual) Lymphocytes # Metamyelocytes # (Man) Myelocytes # (Manual) Macrocytosis PT INR APTT ABG pH ABG pCO2 ABG pO2 ABG HCO3 ABG Total CO2 ABG O2 Saturation Sodium Chloride Carbon Dioxide BUN Creatinine Glucose POC Glucose (mg/dL) >600 H 205 H Plasma Lactic Acid Fred Calcium Ionized Calcium Cornelius Total Bilirubin AST ALT Alkaline Phosphatase Total Protein Albumin Lipase Crossmatch See Detail 10/27/19 10/27/19 10/27/19 09:50 13:00 13:00 WBC RBC Hgb Hct MCV MCH MCHC RDW Plt Count Neutrophils # Neutrophils # (Manual) Lymphocytes # Metamyelocytes # (Man) Myelocytes # (Manual) Macrocytosis PT INR APTT ABG pH 6.90 L* ABG pCO2 ABG pO2 >400 H ABG HCO3 7 L* ABG Total CO2 8 L ABG O2 Saturation 98.3 H Sodium Chloride Carbon Dioxide BUN Creatinine Glucose POC Glucose (mg/dL) Plasma Lactic Acid Fred 8.3 H* Calcium Ionized Calcium Cornelius 4.1 L Total Bilirubin AST ALT Alkaline Phosphatase Total Protein Albumin Lipase Crossmatch 10/27/19 10/27/19 10/27/19 13:34 13:53 14:34 WBC RBC Hgb Hct MCV MCH MCHC RDW Plt Count Neutrophils # Neutrophils # (Manual) Lymphocytes # Metamyelocytes # (Man) Myelocytes # (Manual) Macrocytosis PT INR APTT ABG pH 7.24 L ABG pCO2 34 L ABG pO2 121 H ABG HCO3 15 L ABG Total CO2 16 L ABG O2 Saturation 97.6 H Sodium Chloride Carbon Dioxide BUN Creatinine Glucose POC Glucose (mg/dL) 505 H 423 H Plasma Lactic Acid Fred Calcium Ionized Calcium Cornelius Total Bilirubin AST ALT Alkaline Phosphatase Total Protein Albumin Lipase Crossmatch 10/27/19 10/27/19 10/27/19 14:36 14:40 14:40 WBC 19.7 H RBC 2.74 L Hgb 9.2 L D Hct 29.9 L MCV 109.2 H D MCH MCHC 30.9 L RDW 17.5 H Plt Count 55 L Neutrophils # 18.4 H Neutrophils # (Manual) Lymphocytes # 0.6 L Metamyelocytes # (Man) Myelocytes # (Manual) Macrocytosis Marked A PT 38.6 H INR 3.9 H APTT 59.0 H ABG pH ABG pCO2 ABG pO2 ABG HCO3 ABG Total CO2 ABG O2 Saturation Sodium Chloride Carbon Dioxide BUN Creatinine Glucose POC Glucose (mg/dL) 426 H Plasma Lactic Acid Fred Calcium Ionized Calcium Cornelius Total Bilirubin AST ALT Alkaline Phosphatase Total Protein Albumin Lipase Crossmatch 10/27/19 14:40 WBC RBC Hgb Hct MCV MCH MCHC RDW Plt Count Neutrophils # Neutrophils # (Manual) Lymphocytes # Metamyelocytes # (Man) Myelocytes # (Manual) Macrocytosis PT INR APTT ABG pH ABG pCO2 ABG pO2 ABG HCO3 ABG Total CO2 ABG O2 Saturation Sodium Chloride 114 H Carbon Dioxide 14 L BUN 26 H Creatinine 2.66 H Glucose 380 H POC Glucose (mg/dL) Plasma Lactic Acid Fred Calcium 5.6 L* Ionized Calcium Cornelius Total Bilirubin 1.7 H AST ALT 472 H Alkaline Phosphatase 132 H Total Protein 3.1 L Albumin 1.1 L Lipase Crossmatch - Diagnostic Findings CT scan - chest: image reviewed Assessment and Plan Assessment: 1 Cardiac arrest with approximate 20 minutes of CPR, for epinephrine and subsequent return of spontaneous circulation. 2 Acute respiratory arrest secondary to above requiring intubation mechanical ventilatory support 3 Acute hypotension with suspected septic shock requiring norepinephrine 4 shock liver secondary to above 5 Acute on chronic renal failure 6 Leukocytosis 7 Coagulopathy secondary to shock liver 8 Chronic pancreatitis 9 History of alcoholism 10 Chronic normocytic anemia 11 Previous history of ventilatory dependent respiratory failure secondary to MSSA pneumonia 12 Chronic dysphagia secondary to vocal cord injury with previous PEG tube placement 13 History of previous GI bleed 14 Cerebral atrophy along with chronic small vessel ischemia 15 Poor overall functional performance based on the above-mentioned multiple comorbidities Plan: The patient was seen and evaluated by Dr. Singh. Total of 3 L of fluid resuscitation thus far. 2 A of additional bicarb given. Continue sedation with propofol. Titrate down the norepinephrine as tolerated while keeping a mean arterial pressure of 65. Continue Zosyn. Repeat chest x-ray, labs ABGs in a.m. Establish CODE STATUS. The patient's condition is critical and poor. Neurology consult. We will continue to follow and make further recommendations based on his clinical status. I, the cosigning physician, performed a history & physical examination of the patient. Lungs sounds with basilar crackles, scattered rhonchi Maintaining good O2 saturations in the 90s on 50% FiO2 via the mechanical ventilator.. I discussed the assessment and plan of care with my nurse practitioner, Kylee Phan. I attest to the above note as dictated by her. Time with Patient: Greater than 30
[2019-10-27 16:05] LABS: Glucose,Whole Blood 398 mg/dL (75-99)
--- NOTE | 2019-10-27 17:39 | PCN ---
PROCEDURE NOTE OPERATIVE REPORT: Placement of the left femoral arterial line. PREOPERATIVE DIAGNOSIS: Acute cardiac arrest. POSTOP DIAGNOSIS: Acute cardiac arrest. ANESTHESIA: None deployed. PROCEDURE DETAILS: The patient was placed in a supine position, the left groin was prepared in a sterile fashion and drapes were applied. The left femoral artery was palpated, cannulated, and a guidewire was placed. The area around the guidewire was dilated with a dilator. Then a standard femoral catheter was used and inserted over the guidewire, the guidewire was removed. Good blood flow and good waveform noted, no evidence of any immediate complications. The line was secured using 3.0 silk sutures. MMODL / IJN: [id number] /
[2019-10-27] MEDS: PIPERACILLIN-TAZOBACTAM 3.375 GM in SODIUM CHLORIDE 0.9% 100 ML IVPB SCH (18:00)
[2019-10-27] MEDS: NOREPINEPHRINE 8 MG in SODIUM CHLORIDE 0.9% 250 ML IV SCH ×2 (18:01→21:44)
[2019-10-27] MEDS ORDERED: Potassium Replacement Protocol 1 EACH MISC MISCELLANE PRN (18:26)
[2019-10-27] MEDS: POTASSIUM CHLORIDE 20 MEQ in WATER FOR INJECTION 1 100ML.BAG IVPB SCH ×2 (19:10→21:18)
[2019-10-27 20:25] LABS: Glucose,Whole Blood 316 mg/dL (75-99)
[2019-10-27] MEDS ORDERED: FUROSEMIDE 10 MG/ML 2 ML VIAL IV ONE (20:37)
--- NOTE | 2019-10-27 23:08 | P.HPIM ---
History of Present Illness This is a 69 years old male With multiple medical problems as below. Patient is intubated and unresponsive and could not provide information so it was obtained from staff and medical records, no family at bedside. Patient Presents because the neighbors called 911/AMS 4 patient was dyspneic, and brought to the hospital patient became unresponsive with PEA in ambulance, CPR was in associated, he got 3 samples of epinephrine in the ambulance and 1 other dose of epinephrine in the hospital. His CPR downtown was about 20 minutes Patient also hypoglycemic and hypothermic and hypotensive , blood glucose was 20 h glucose D 50% with partial correction and was placed on D10% effusion, however his sugar jumped to 800 so D10%was stopped and currently glucose in around 300. He was placed on Jarad hugger and Currently he is on Levophed at 0.57 which is high dose showing leukocytosis of 12.9 and 19.7 K, hemoglobin 6.6 corrected to 9.2 after blood transfusion, platelets 46 and 50 5K. INR 4.5 and 3.9. PH was 6.9 and 7.2. Creatinine 2.6 which are unknown baseline. Lactic acid 8.0 7.0. Elevated liver enzymes with AST 3652 and ALT 472 . Troponin is negative Hemoglobin was 6 and INR was 4 and he got 1 dose of vitamin K and 2 units of blood transfusion Patient got Zithromax and ceftriaxone in the emergency room, patient continued on Zosyn, and normal saline at 75 mL/h Review of Systems N/a, patient could not provide information Past Medical History Past Medical History: Asthma, GI Bleed, Hypertension, Liver Disease, Neurologic Disorder, Pneumonia, Renal Disease Additional Past Medical History / Comment(s): Dysphagia, aspiration pneumonia/vented, peg tube placed but staff state with therapy pt recently able to take orals and they are just doing water flushes of peg [id number] also states past 1.5 weeks pt's oral intake has declined and he has refused to supplement with his peg tube-voices concern he will again lose ability to take orals, esophagitis, septic shock, pleural effusion with thoracentesis, pt wears oxygen ATC, GI bleed, calculus of bile duct/stented, acute cholecystitis, pancreatitis, R femoral pseudoaneurysm with acute blood loss anemia, CKD stage III with chronic anemia, nephrolithiasis, UTI, past ETOH abuse, alcoholic fatty liver, chronic generalized pain, muscle weakness, insomnia, protein calorie malnutrition, defiency of vitamis, thrombocytopenia, skin tear L buttock. History of Any Multi-Drug Resistant Organisms: ESBL Date of last positivie culture/infection: 06/19/19 MDRO Source:: ESBL ABDOMEN Past Surgical History: Orthopedic Surgery Additional Past Surgical History / Comment(s): Peg tube, R femoral pseudoaneurysm repair, C3-6 cervical surgery/plate, bilateral cataract removal with lens implants, umbilical hernia as a baby, bile duct stent, ERCP, Past Anesthesia/Blood Transfusion Reactions: No Reported Reaction Past Psychological History: No Psychological Hx Reported Smoking Status: Unknown if ever smoked Past Alcohol Use History: None Reported Past Drug Use History: None Reported - Past Family History Father Family Medical History: Cancer Additional Family Medical History / Comment(s): Melanoma Mother Family Medical History: Cancer Additional Family Medical History / Comment(s): Breast cancer. Medications and Allergies Home Medications Medication Instructions Recorded Confirmed Type Levothyroxine Sodium [Synthroid] 25 mcg PO DAILY 10/19/18 10/27/19 History Sodium Bicarbonate 650 mg PO Q8H 06/18/19 10/27/19 History amLODIPine [Norvasc] 5 mg PO DAILY 06/18/19 10/27/19 History Epoetin Von-Epbx [Retacrit] 4,000 units SQ Q7D 10/27/19 10/27/19 History Escitalopram [Lexapro] 10 mg PO DAILY 10/27/19 10/27/19 History Gabapentin [Neurontin] 400 mg PO HS 10/27/19 10/27/19 History HYDROcodone/APAP 10-325MG [[place] 1 tab PO Q4HR PRN 10/27/19 10/27/19 History 10-325] Ipratropium-Albuterol Nebulize 3 ml INHALATION RT-QID 10/27/19 10/27/19 History [Duoneb 0.5 mg-3 mg/3 ml Soln] Metoprolol Tartrate [Lopressor] 75 mg PO BID 10/27/19 10/27/19 History Omeprazole [PriLOSEC] 20 mg PO BID 10/27/19 10/27/19 History Allergies Allergy/AdvReac Type Severity Reaction Status Date / Time No Known Allergies Allergy Verified 10/27/19 13:13 Physical Exam Vitals: Vital Signs Temp Pulse Resp BP Pulse Ox 10/27/19 21:00 98.4 F 55 L 16 100 10/27/19 20:45 55 L 2 L 101/57 100 10/27/19 20:30 98.1 F 56 L 22 100 10/27/19 20:15 55 L 17 100 10/27/19 20:00 54 L 18 100 10/27/19 19:45 54 L 10 L 100 10/27/19 19:30 97.0 F L 53 L 17 100 10/27/19 19:15 53 L 17 100 10/27/19 19:00 53 L 18 100 10/27/19 18:45 53 L 16 100 10/27/19 18:30 53 L 16 100 10/27/19 18:15 52 L 20 100 10/27/19 18:00 52 L 20 100 10/27/19 17:59 95.5 F L 52 L 19 102/42 100 10/27/19 17:45 52 L 16 100 10/27/19 17:30 52 L 16 100 10/27/19 17:15 52 L 20 100 10/27/19 17:00 51 L 16 100 10/27/19 16:45 51 L 20 100 10/27/19 16:30 50 L 20 100 10/27/19 16:17 94.5 F L 50 L 20 97/41 100 10/27/19 16:15 50 L 20 100 10/27/19 16:00 94.3 F L 50 L 16 100 10/27/19 15:47 94.3 F L 51 L 18 91/40 100 10/27/19 15:45 50 L 20 100 10/27/19 15:37 94.3 F L 50 L 22 100/44 100 10/27/19 15:30 50 L 15 100 10/27/19 15:15 51 L 20 100 10/27/19 15:00 94.6 F L 52 L 16 100 10/27/19 14:45 52 L 16 100 10/27/19 14:30 53 L 16 100 10/27/19 14:15 60 16 73/55 99 10/27/19 14:00 65 18 85/60 100 10/27/19 13:50 93.2 F L 59 L 20 85/60 98 10/27/19 13:45 92.1 F L 69 20 83/58 100 10/27/19 12:18 93.1 F L 59 L 12 96/65 10/27/19 12:05 93 F L 60 12 91/55 10/27/19 11:48 93 F L 58 L 12 86/58 10/27/19 11:38 92 F L 56 L 12 91/57 10/27/19 10:30 91 F L 54 L 12 94/65 10/27/19 10:00 51 L 12 91/60 10/27/19 09:20 90.0 F L 56 L 12 89/53 92 L 10/27/19 09:04 91 F L 56 L 12 75/52 96 10/27/19 08:34 67 12 78/54 100 10/27/19 08:15 95 12 119/66 95 10/27/19 08:10 97 18 160/99 98 Intake and Output 10/27/19 10/27/19 10/27/19 06:59 14:59 22:59 Intake Total 0224.975 2388.653 Output Total 0 13 Balance 3448.395 9639.653 Intake: IV 1000 1475 Piperacillin-Tazobactam 3 50 .375 gm In Sodium Chloride 0.9% 100 ml @ 25 mls/hr IVPB Q8H [facility] Rx#: [id number] Potassium Chloride 20 meq 50 In Water For Injection 1 100ml.bag @ 50 mls/hr IVPB Q2H [facility] Rx#: [id number] Sodium Chloride 0.9% 1, 375 000 ml @ 75 mls/hr IV . [id number] [facility] Rx#:[id number] Sodium Chloride 0.9% 1, 1000 1000 000 ml @ 999 mls/hr IV . Q1H1M [facility] Rx#:[id number] Intake, IV Titration 348.231 446.653 Amount Norepinephrine 4 mg In 348.231 120.930 Sodium Chloride 0.9% 250 ml @ 0.05 MCG/KG/MIN 9. 505 mls/hr IV .Q24H [facility] Rx#:[id number] Norepinephrine 8 mg In 271.274 Sodium Chloride 0.9% 250 ml @ 0.6 MCG/KG/MIN 68. 267 mls/hr IV .Q3H47M [facility] Rx#:[id number] propofoL 1,000 mg In 54.449 Empty Bag 1 bag @ Titrate IV .Q0M [facility] Rx#: [id number] Blood Product 310 310 Rc As-1 Unit 310 [id number] Rc As-1 Unit 310 [id number] Output: Urine 0 13 Other: Voiding Method Indwelling Catheter Weight 58.8 kg ABP, PAP, CO, CI - Last 8 Hours Arterial Blood Pressure 99/38 Arterial Blood Pressure 98/38 Arterial Blood Pressure 101/40 Arterial Blood Pressure 93/40 Arterial Blood Pressure 99/41 Arterial Blood Pressure 103/44 Arterial Blood Pressure 101/41 Arterial Blood Pressure 102/41 Arterial Blood Pressure 102/42 Arterial Blood Pressure 98/40 Arterial Blood Pressure 99/41 Arterial Blood Pressure 98/42 Arterial Blood Pressure 102/43 Arterial Blood Pressure 105/44 Arterial Blood Pressure 97/41 Arterial Blood Pressure 106/46 Arterial Blood Pressure 105/44 Arterial Blood Pressure 106/46 Arterial Blood Pressure 99/42 Arterial Blood Pressure 96/42 Arterial Blood Pressure 98/43 Arterial Blood Pressure 92/41 Arterial Blood Pressure 101/45 Arterial Blood Pressure 98/45 Arterial Blood Pressure 105/42 Arterial Blood Pressure 107/53 Arterial Blood Pressure 86/44 GENERAL: The patient is intubated and sedated HEENT: Pupils are round and equally reacting to light. EOMI. No scleral icterus. No conjunctival pallor. Normocephalic, atraumatic. No pharyngeal erythema. No thyromegaly. CARDIOVASCULAR: S1 and S2 present. No murmurs, rubs, or gallops. PULMONARY: Chest is clear to auscultation, no wheezing or crackles. ABDOMEN: Soft, nontender, nondistended, normoactive bowel sounds. No palpable organomegaly. MUSCULOSKELETAL: No joint swelling or deformity. EXTREMITIES: No cyanosis, clubbing, or pedal edema. NEUROLOGICAL: Gross neurological examination did not reveal any focal deficits. SKIN: No rashes. no petechiae. Results CBC & Chem 7: 10/27/19 14:40 10/27/19 14:40 Labs: Abnormal Lab Results - Last 24 Hours (Table) 10/27/19 10/27/19 10/27/19 Range/Units 08:10 08:15 08:20 WBC (3.8-10.6) k/uL RBC (4.30-5.90) m/uL Hgb (13.0-17.5) gm/dL Hct (39.0-53.0) % MCV (80.0-100.0) fL MCH (25.0-35.0) pg MCHC (31.0-37.0) g/dL RDW (11.5-15.5) % Plt Count (150-450) k/uL Neutrophils # (1.3-7.7) k/uL Neutrophils # (Manual) (1.3-7.7) k/uL Lymphocytes # (1.0-4.8) k/uL Metamyelocytes # (Man) (0) k/uL Myelocytes # (Manual) (0) k/uL Macrocytosis PT (9.0-12.0) sec INR (<1.2) APTT (22.0-30.0) sec ABG pH (7.35-7.45) ABG pCO2 (35-45) mmHg ABG pO2 (83-108) mmHg ABG HCO3 (21-25) mmol/L ABG Total CO2 (19-24) mmol/L ABG O2 Saturation (94-97) % Sodium (137-145) mmol/L Chloride (98-107) mmol/L Carbon Dioxide (22-30) mmol/L BUN (9-20) mg/dL Creatinine (0.66-1.25) mg/dL Glucose (74-99) mg/dL POC Glucose (mg/dL) 26 L 21 L 25 L (75-99) mg/dL Plasma Lactic Acid Fred (0.7-2.0) mmol/L Calcium (8.4-10.2) mg/dL Ionized Calcium Cornelius (4.5-5.3) mg/dL Total Bilirubin (0.2-1.3) mg/dL AST (17-59) U/L ALT (4-49) U/L Alkaline Phosphatase (38-126) U/L Total Protein (6.3-8.2) g/dL Albumin (3.5-5.0) g/dL Lipase (23-300) U/L Crossmatch 10/27/19 10/27/19 10/27/19 Range/Units 08:26 08:27 08:33 WBC (3.8-10.6) k/uL RBC (4.30-5.90) m/uL Hgb (13.0-17.5) gm/dL Hct (39.0-53.0) % MCV (80.0-100.0) fL MCH (25.0-35.0) pg MCHC (31.0-37.0) g/dL RDW (11.5-15.5) % Plt Count (150-450) k/uL Neutrophils # (1.3-7.7) k/uL Neutrophils # (Manual) (1.3-7.7) k/uL Lymphocytes # (1.0-4.8) k/uL Metamyelocytes # (Man) (0) k/uL Myelocytes # (Manual) (0) k/uL Macrocytosis PT (9.0-12.0) sec INR (<1.2) APTT (22.0-30.0) sec ABG pH (7.35-7.45) ABG pCO2 (35-45) mmHg ABG pO2 (83-108) mmHg ABG HCO3 (21-25) mmol/L ABG Total CO2 (19-24) mmol/L ABG O2 Saturation (94-97) % Sodium (137-145) mmol/L Chloride (98-107) mmol/L Carbon Dioxide (22-30) mmol/L BUN (9-20) mg/dL Creatinine (0.66-1.25) mg/dL Glucose (74-99) mg/dL POC Glucose (mg/dL) 24 L 28 L <20 L (75-99) mg/dL Plasma Lactic Acid Fred (0.7-2.0) mmol/L Calcium (8.4-10.2) mg/dL Ionized Calcium Cornelius (4.5-5.3) mg/dL Total Bilirubin (0.2-1.3) mg/dL AST (17-59) U/L ALT (4-49) U/L Alkaline Phosphatase (38-126) U/L Total Protein (6.3-8.2) g/dL Albumin (3.5-5.0) g/dL Lipase (23-300) U/L Crossmatch 10/27/19 10/27/19 10/27/19 Range/Units 08:50 08:50 08:50 WBC 12.9 H (3.8-10.6) k/uL RBC 1.86 L (4.30-5.90) m/uL Hgb 6.6 L* D (13.0-17.5) gm/dL Hct 23.8 L (39.0-53.0) % MCV 127.9 H D (80.0-100.0) fL MCH 35.7 H (25.0-35.0) pg MCHC 28.0 L (31.0-37.0) g/dL RDW (11.5-15.5) % Plt Count 46 L D (150-450) k/uL Neutrophils # (1.3-7.7) k/uL Neutrophils # (Manual) 11.70 H (1.3-7.7) k/uL Lymphocytes # (1.0-4.8) k/uL Metamyelocytes # (Man) 0.13 H (0) k/uL Myelocytes # (Manual) 0.13 H (0) k/uL Macrocytosis Marked A PT 44.6 H (9.0-12.0) sec INR 4.5 H (<1.2) APTT 185.5 H* (22.0-30.0) sec ABG pH (7.35-7.45) ABG pCO2 (35-45) mmHg ABG pO2 (83-108) mmHg ABG HCO3 (21-25) mmol/L ABG Total CO2 (19-24) mmol/L ABG O2 Saturation (94-97) % Sodium 129 L (137-145) mmol/L Chloride 111 H (98-107) mmol/L Carbon Dioxide 8 L* (22-30) mmol/L BUN 26 H (9-20) mg/dL Creatinine 2.62 H (0.66-1.25) mg/dL Glucose 800 H* (74-99) mg/dL POC Glucose (mg/dL) (75-99) mg/dL Plasma Lactic Acid Fred (0.7-2.0) mmol/L Calcium 5.5 L* (8.4-10.2) mg/dL Ionized Calcium Cornelius (4.5-5.3) mg/dL Total Bilirubin (0.2-1.3) mg/dL AST 2522 H (17-59) U/L ALT 317 H (4-49) U/L Alkaline Phosphatase (38-126) U/L Total Protein 2.6 L (6.3-8.2) g/dL Albumin <1.0 L (3.5-5.0) g/dL Lipase <10 L (23-300) U/L Crossmatch 10/27/19 10/27/19 10/27/19 Range/Units 08:50 08:53 09:10 WBC (3.8-10.6) k/uL RBC (4.30-5.90) m/uL Hgb (13.0-17.5) gm/dL Hct (39.0-53.0) % MCV (80.0-100.0) fL MCH (25.0-35.0) pg MCHC (31.0-37.0) g/dL RDW (11.5-15.5) % Plt Count (150-450) k/uL Neutrophils # (1.3-7.7) k/uL Neutrophils # (Manual) (1.3-7.7) k/uL Lymphocytes # (1.0-4.8) k/uL Metamyelocytes # (Man) (0) k/uL Myelocytes # (Manual) (0) k/uL Macrocytosis PT (9.0-12.0) sec INR (<1.2) APTT (22.0-30.0) sec ABG pH (7.35-7.45) ABG pCO2 (35-45) mmHg ABG pO2 (83-108) mmHg ABG HCO3 (21-25) mmol/L ABG Total CO2 (19-24) mmol/L ABG O2 Saturation (94-97) % Sodium (137-145) mmol/L Chloride (98-107) mmol/L Carbon Dioxide (22-30) mmol/L BUN (9-20) mg/dL Creatinine (0.66-1.25) mg/dL Glucose (74-99) mg/dL POC Glucose (mg/dL) 44 L 192 H (75-99) mg/dL Plasma Lactic Acid Fred 7.8 H* (0.7-2.0) mmol/L Calcium (8.4-10.2) mg/dL Ionized Calcium Cornelius (4.5-5.3) mg/dL Total Bilirubin (0.2-1.3) mg/dL AST (17-59) U/L ALT (4-49) U/L Alkaline Phosphatase (38-126) U/L Total Protein (6.3-8.2) g/dL Albumin (3.5-5.0) g/dL Lipase (23-300) U/L Crossmatch 10/27/19 10/27/19 10/27/19 Range/Units 09:15 09:15 09:22 WBC (3.8-10.6) k/uL RBC (4.30-5.90) m/uL Hgb (13.0-17.5) gm/dL Hct (39.0-53.0) % MCV (80.0-100.0) fL MCH (25.0-35.0) pg MCHC (31.0-37.0) g/dL RDW (11.5-15.5) % Plt Count (150-450) k/uL Neutrophils # (1.3-7.7) k/uL Neutrophils # (Manual) (1.3-7.7) k/uL Lymphocytes # (1.0-4.8) k/uL Metamyelocytes # (Man) (0) k/uL Myelocytes # (Manual) (0) k/uL Macrocytosis PT (9.0-12.0) sec INR (<1.2) APTT (22.0-30.0) sec ABG pH (7.35-7.45) ABG pCO2 (35-45) mmHg ABG pO2 (83-108) mmHg ABG HCO3 (21-25) mmol/L ABG Total CO2 (19-24) mmol/L ABG O2 Saturation (94-97) % Sodium (137-145) mmol/L Chloride (98-107) mmol/L Carbon Dioxide (22-30) mmol/L BUN (9-20) mg/dL Creatinine (0.66-1.25) mg/dL Glucose (74-99) mg/dL POC Glucose (mg/dL) >600 H 205 H (75-99) mg/dL Plasma Lactic Acid Fred (0.7-2.0) mmol/L Calcium (8.4-10.2) mg/dL Ionized Calcium Cornelius (4.5-5.3) mg/dL Total Bilirubin (0.2-1.3) mg/dL AST (17-59) U/L ALT (4-49) U/L Alkaline Phosphatase (38-126) U/L Total Protein (6.3-8.2) g/dL Albumin (3.5-5.0) g/dL Lipase (23-300) U/L Crossmatch See Detail 10/27/19 10/27/19 10/27/19 Range/Units 09:50 13:00 13:00 WBC (3.8-10.6) k/uL RBC (4.30-5.90) m/uL Hgb (13.0-17.5) gm/dL Hct (39.0-53.0) % MCV (80.0-100.0) fL MCH (25.0-35.0) pg MCHC (31.0-37.0) g/dL RDW (11.5-15.5) % Plt Count (150-450) k/uL Neutrophils # (1.3-7.7) k/uL Neutrophils # (Manual) (1.3-7.7) k/uL Lymphocytes # (1.0-4.8) k/uL Metamyelocytes # (Man) (0) k/uL Myelocytes # (Manual) (0) k/uL Macrocytosis PT (9.0-12.0) sec INR (<1.2) APTT (22.0-30.0) sec ABG pH 6.90 L* (7.35-7.45) ABG pCO2 (35-45) mmHg ABG pO2 >400 H (83-108) mmHg ABG HCO3 7 L* (21-25) mmol/L ABG Total CO2 8 L (19-24) mmol/L ABG O2 Saturation 98.3 H (94-97) % Sodium (137-145) mmol/L Chloride (98-107) mmol/L Carbon Dioxide (22-30) mmol/L BUN (9-20) mg/dL Creatinine (0.66-1.25) mg/dL Glucose (74-99) mg/dL POC Glucose (mg/dL) (75-99) mg/dL Plasma Lactic Acid Fred 8.3 H* (0.7-2.0) mmol/L Calcium (8.4-10.2) mg/dL Ionized Calcium Cornelius 4.1 L (4.5-5.3) mg/dL Total Bilirubin (0.2-1.3) mg/dL AST (17-59) U/L ALT (4-49) U/L Alkaline Phosphatase (38-126) U/L Total Protein (6.3-8.2) g/dL Albumin (3.5-5.0) g/dL Lipase (23-300) U/L Crossmatch 10/27/19 10/27/19 10/27/19 Range/Units 13:34 13:53 14:34 WBC (3.8-10.6) k/uL RBC (4.30-5.90) m/uL Hgb (13.0-17.5) gm/dL Hct (39.0-53.0) % MCV (80.0-100.0) fL MCH (25.0-35.0) pg MCHC (31.0-37.0) g/dL RDW (11.5-15.5) % Plt Count (150-450) k/uL Neutrophils # (1.3-7.7) k/uL Neutrophils # (Manual) (1.3-7.7) k/uL Lymphocytes # (1.0-4.8) k/uL Metamyelocytes # (Man) (0) k/uL Myelocytes # (Manual) (0) k/uL Macrocytosis PT (9.0-12.0) sec INR (<1.2) APTT (22.0-30.0) sec ABG pH 7.24 L (7.35-7.45) ABG pCO2 34 L (35-45) mmHg ABG pO2 121 H (83-108) mmHg ABG HCO3 15 L (21-25) mmol/L ABG Total CO2 16 L (19-24) mmol/L ABG O2 Saturation 97.6 H (94-97) % Sodium (137-145) mmol/L Chloride (98-107) mmol/L Carbon Dioxide (22-30) mmol/L BUN (9-20) mg/dL Creatinine (0.66-1.25) mg/dL Glucose (74-99) mg/dL POC Glucose (mg/dL) 505 H 423 H (75-99) mg/dL Plasma Lactic Acid Fred (0.7-2.0) mmol/L Calcium (8.4-10.2) mg/dL Ionized Calcium Cornelius (4.5-5.3) mg/dL Total Bilirubin (0.2-1.3) mg/dL AST (17-59) U/L ALT (4-49) U/L Alkaline Phosphatase (38-126) U/L Total Protein (6.3-8.2) g/dL Albumin (3.5-5.0) g/dL Lipase (23-300) U/L Crossmatch 10/27/19 10/27/19 10/27/19 Range/Units 14:36 14:40 14:40 WBC 19.7 H (3.8-10.6) k/uL RBC 2.74 L (4.30-5.90) m/uL Hgb 9.2 L D (13.0-17.5) gm/dL Hct 29.9 L (39.0-53.0) % MCV 109.2 H D (80.0-100.0) fL MCH (25.0-35.0) pg MCHC 30.9 L (31.0-37.0) g/dL RDW 17.5 H (11.5-15.5) % Plt Count 55 L (150-450) k/uL Neutrophils # 18.4 H (1.3-7.7) k/uL Neutrophils # (Manual) (1.3-7.7) k/uL Lymphocytes # 0.6 L (1.0-4.8) k/uL Metamyelocytes # (Man) (0) k/uL Myelocytes # (Manual) (0) k/uL Macrocytosis Marked A PT 38.6 H (9.0-12.0) sec INR 3.9 H (<1.2) APTT 59.0 H (22.0-30.0) sec ABG pH (7.35-7.45) ABG pCO2 (35-45) mmHg ABG pO2 (83-108) mmHg ABG HCO3 (21-25) mmol/L ABG Total CO2 (19-24) mmol/L ABG O2 Saturation (94-97) % Sodium (137-145) mmol/L Chloride (98-107) mmol/L Carbon Dioxide (22-30) mmol/L BUN (9-20) mg/dL Creatinine (0.66-1.25) mg/dL Glucose (74-99) mg/dL POC Glucose (mg/dL) 426 H (75-99) mg/dL Plasma Lactic Acid Fred (0.7-2.0) mmol/L Calcium (8.4-10.2) mg/dL Ionized Calcium Cornelius (4.5-5.3) mg/dL Total Bilirubin (0.2-1.3) mg/dL AST (17-59) U/L ALT (4-49) U/L Alkaline Phosphatase (38-126) U/L Total Protein (6.3-8.2) g/dL Albumin (3.5-5.0) g/dL Lipase (23-300) U/L Crossmatch 10/27/19 10/27/19 10/27/19 Range/Units 14:40 16:04 16:04 WBC (3.8-10.6) k/uL RBC (4.30-5.90) m/uL Hgb (13.0-17.5) gm/dL Hct (39.0-53.0) % MCV (80.0-100.0) fL MCH (25.0-35.0) pg MCHC (31.0-37.0) g/dL RDW (11.5-15.5) % Plt Count (150-450) k/uL Neutrophils # (1.3-7.7) k/uL Neutrophils # (Manual) (1.3-7.7) k/uL Lymphocytes # (1.0-4.8) k/uL Metamyelocytes # (Man) (0) k/uL Myelocytes # (Manual) (0) k/uL Macrocytosis PT (9.0-12.0) sec INR (<1.2) APTT (22.0-30.0) sec ABG pH (7.35-7.45) ABG pCO2 (35-45) mmHg ABG pO2 (83-108) mmHg ABG HCO3 (21-25) mmol/L ABG Total CO2 (19-24) mmol/L ABG O2 Saturation (94-97) % Sodium (137-145) mmol/L Chloride 114 H (98-107) mmol/L Carbon Dioxide 14 L (22-30) mmol/L BUN 26 H (9-20) mg/dL Creatinine 2.66 H (0.66-1.25) mg/dL Glucose 380 H (74-99) mg/dL POC Glucose (mg/dL) 398 H (75-99) mg/dL Plasma Lactic Acid Fred 8.0 H* (0.7-2.0) mmol/L Calcium 5.6 L* (8.4-10.2) mg/dL Ionized Calcium Cornelius (4.5-5.3) mg/dL Total Bilirubin 1.7 H (0.2-1.3) mg/dL AST 3652 H (17-59) U/L ALT 472 H (4-49) U/L Alkaline Phosphatase 132 H (38-126) U/L Total Protein 3.1 L (6.3-8.2) g/dL Albumin 1.1 L (3.5-5.0) g/dL Lipase (23-300) U/L Crossmatch 10/27/19 10/27/19 Range/Units 18:30 20:23 WBC (3.8-10.6) k/uL RBC (4.30-5.90) m/uL Hgb (13.0-17.5) gm/dL Hct (39.0-53.0) % MCV (80.0-100.0) fL MCH (25.0-35.0) pg MCHC (31.0-37.0) g/dL RDW (11.5-15.5) % Plt Count (150-450) k/uL Neutrophils # (1.3-7.7) k/uL Neutrophils # (Manual) (1.3-7.7) k/uL Lymphocytes # (1.0-4.8) k/uL Metamyelocytes # (Man) (0) k/uL Myelocytes # (Manual) (0) k/uL Macrocytosis PT (9.0-12.0) sec INR (<1.2) APTT (22.0-30.0) sec ABG pH (7.35-7.45) ABG pCO2 (35-45) mmHg ABG pO2 (83-108) mmHg ABG HCO3 (21-25) mmol/L ABG Total CO2 (19-24) mmol/L ABG O2 Saturation (94-97) % Sodium (137-145) mmol/L Chloride (98-107) mmol/L Carbon Dioxide (22-30) mmol/L BUN (9-20) mg/dL Creatinine (0.66-1.25) mg/dL Glucose (74-99) mg/dL POC Glucose (mg/dL) 316 H (75-99) mg/dL Plasma Lactic Acid Fred 7.0 H* (0.7-2.0) mmol/L Calcium (8.4-10.2) mg/dL Ionized Calcium Cornelius (4.5-5.3) mg/dL Total Bilirubin (0.2-1.3) mg/dL AST (17-59) U/L ALT (4-49) U/L Alkaline Phosphatase (38-126) U/L Total Protein (6.3-8.2) g/dL Albumin (3.5-5.0) g/dL Lipase (23-300) U/L Crossmatch Microbiology - Last 24 Hours (Table) 10/27/19 09:12 Sputum Culture - Preliminary Sputum Assessment and Plan Assessment: Status post cardiopulmonary arrest status post CPR Possible septic shock Acute hypoxic respiratory failure needing mechanical intubation secondary to above Suspected anoxic brain injury Hypothermia Coagulopathy, secondary to shock liver Metabolic acidosis Elevated lactic acid shock liver leukocytosis, rule out sepsis History of Dysphagia Chronic kidney disease stage III Anemia Hypertension, currently in shock state Chronic asthma Nephrolithiasis Alcoholic fatty liver Mild to moderate protein calorie malnutrition Thrombocytopenia History of aspiration pneumonia History of PEG tube placement History of septic shock History of pleural effusion status post thoracocentesis History of GI bleed History of pancreatitis Plan: This is a 69 years old male who presents with cardiac arrest status post CPR, septic shock and intubated. Patient remains in the ICU in critical condition, pulmonary/critical care team on the case, continue on pressors. Vent management as per pulmonary team. Continue with normal saline. Continue with antibiotic, Follow-up culture results. GI, cardiology and neurology service were consulted Labs and medication were reviewed.. Continue same treatment. Continue with symptomatic treatment. Resume home medication. Monitor lytes and vitals. DVT and GI prophylaxis. Further recommendations of the clinical course of the patient DVT prophylaxis: He is coagulopathic GI Prophylaxis: Protonix Prognosis is guarded
[2019-10-27] MEDS: PANTOPRAZOLE 40 MG/10 ML VIAL IVP SCH (23:38)
[2019-10-27 23:51] LABS: Glucose,Whole Blood 248 mg/dL (75-99)
[2019-10-28] MEDS: CHLORHEXIDINE GLUCONATE 15 ML CUP MUCOUS MEM SCH ×3 (00:34→20:26)
[2019-10-28] MEDS: NOREPINEPHRINE 32 MG in SODIUM CHLORIDE 0.9% 218 ML IV SCH ×2 (00:38→13:48)
[2019-10-28] MEDS: PIPERACILLIN-TAZOBACTAM 3.375 GM in SODIUM CHLORIDE 0.9% 100 ML IVPB SCH ×3 (00:45→17:17)
[2019-10-28] MEDS: SODIUM CHLORIDE 0.9% 1,000 ML IV SCH ×2 (00:49→16:58)
[2019-10-28 05:09] LABS: ABG Base Excess -16.2 mmol/L; ABG HCO3 12 mmol/L (21-25); ABG Oxygen Saturation 96.7 % (94-97); ABG PCO2 33 mmHg (35-45); ABG PO2 102 mmHg (83-108); ABG TCO2 13 mmol/L (19-24)
[2019-10-28 05:14] LABS: ABG PH 7.17 (7.35-7.45); Allen Test Performed? no
[2019-10-28 05:20] LABS: Ionized Calcium 4.2 mg/dL (4.5-5.3)
[2019-10-28 05:27] LABS: Anisocytosis Slight; HCT 39.8 % (39.0-53.0); Hypochromasia Moderate; MCH 35.4 pg (25.0-35.0); MCV 107.2 fL (80.0-100.0); Macrocytosis Marked; Mean Platelet Volume 12.8; RBC 3.72 m/uL (4.30-5.90); RDW 18.6 % (11.5-15.5); WBC 21.7 k/uL (3.8-10.6)
[2019-10-28 05:32] LABS: HGB 13.2 gm/dL (13.0-17.5); Platelet Count 40 k/uL (150-450)
[2019-10-28 05:38] LABS: Potassium 3.7 mmol/L (3.5-5.1)
[2019-10-28] MEDS ORDERED: SODIUM BICARB 8.4% 50 ML SYR (1 MEQ/ML) IV STA ×2 (05:45→05:46)
[2019-10-28 05:47] LABS: Band Neutrophils % 15 %; Lymphocytes # (M) 0.65 k/uL (1.0-4.8); Monocytes # (M) 0.43 k/uL (0-1.0); Neutrophils % (M) 80 %; Nucleated Red Blood Cells 0 /100 WBC (0-0); Total Cells Counted 100
[2019-10-28 05:48] LABS: Anisocytosis (M) Present; Poikilocytosis (M) Present
[2019-10-28 06:04] LABS: Calcium 5.8 mg/dL (8.4-10.2)
[2019-10-28 06:23] LABS: Glucose,Whole Blood 232 mg/dL (75-99)
[2019-10-28] MEDS: DEXTROSE 5% IN WATER 1,000 ML with SODIUM BICARB (1 MEQ/ML) 150 ML IV SCH ×2 (07:07→21:10)
[2019-10-28] MEDS ORDERED: CALCIUM GLUCONATE 2 GM in SODIUM CHLORIDE 0.9% 100 ML IVPB ONE (07:15)
--- NOTE | 2019-10-28 07:53 | XR ---
EXAMINATION TYPE: XR chest 1V portable DATE OF EXAM: 10/28/2019 COMPARISON: 10/27/2019 INDICATION: Tube placement TECHNIQUE: Single frontal view of the chest is obtained. FINDINGS: The heart size is normal. The pulmonary vasculature is normal. Mild infiltrate is at the right base. Lesser infiltrate may be present on the left. Endotracheal tube tip is 10 cm above the brett. This could be advanced slightly for better positioni ng. Nasogastric tube transverses the thorax. Right central venous catheter is present with the tip in the superior vena cava region. IMPRESSION: 1. Mild infiltrates in the bilateral lung bases. 2. Lines and catheters discussed above. 3. Endotracheal tube tip could be advanced approximately 4 cm.
[2019-10-28 08:50] LABS: ABG Base Excess -10.6 mmol/L; ABG HCO3 16 mmol/L (21-25); ABG Oxygen Saturation 97.3 % (94-97); ABG PCO2 34 mmHg (35-45); ABG PH 7.28 (7.35-7.45); ABG PO2 103 mmHg (83-108); ABG TCO2 17 mmol/L (19-24); Allen Test Performed? Yes
[2019-10-28] MEDS: PANTOPRAZOLE 40 MG/10 ML VIAL IVP SCH (10:00)
[2019-10-28] MEDS ORDERED: POTASSIUM BICARBONATE/CIT AC 20 MEQ TABLET.EFF NG-TUBE SCH (10:00)
[2019-10-28 11:03] LABS: Albumin 1.4 g/dL (3.5-5.0); Bilirubin, Conjugated 1.1 mg/dL (0.0-0.3); Bilirubin, Delta 0.6 mg/dL (0.0-0.2); Bilirubin,Unconjugated 0.6 mg/dL (0.0-1.1); Total Bilirubin 2.3 mg/dL (0.2-1.3); Total Protein 3.7 g/dL (6.3-8.2)
--- NOTE | 2019-10-28 11:03 | PN ---
PROGRESS NOTE PULMONARY/CRITICAL CARE PROGRESS NOTE: DATE OF SERVICE: 10/28/2019 CRITICAL CARE TIME: 33 minutes. This is a 69-year-old male who was admitted on 10/27/2019. He apparently was found to be in cardiac arrest. He apparently had a respiratory arrest requiring intubation and mechanical ventilation. He had about a 20 minute down time apparently. He was intubated on 10/26. He was seen by my partner yesterday. He had CPR for 20 minutes. He did have eventual return of spontaneous circulation. Anyway, since he has been here, the patient has received 2 units of PRBCs. He will need a stat blood gas and EEG. Head CT was negative. He has received 5 total L of fluid. He also received 2 units of PRBCs. Currently, vent settings are the volume assist-control mode rate of 16, tidal volume 400, FiO2 of 40%, PEEP of 5. Blood gases show PO2 of 102, pCO2 of 33 and a pH of 7.17. The patient had a BP blood gas which showed a pO2 of 103, pCO2 of 34, and a pH is 7.28. He is receiving 3 amps of sodium bicarbonate and D5W at 75 mL an hour. I told the nurses to discontinue the propofol. That was on a running at 20 mcg/kg per minute. He is also on norepinephrine at 36 mcg/minute. Current vital signs good temperature of only 36.1, heart rate 65, respiratory rate 20, blood pressure 118/51, and a saturation of 98%. He is on 40% FiO2. Current blood pressure is on 36 mcg/minute of norepinephrine. Currently sedated. HEENT: Examination is grossly unremarkable. There is no orally placed endotracheal tube and NG tube. Neck is supple, full range of motion. CARDIOVASCULAR: Examination reveals regular rhythm and rate. 65 beats per minute. S1, S2 normal. Heart sounds are distant. LUNGS: Reveal some diffuse coarse rhonchi. Breath sounds equal bilaterally. There are no wheezes or crackles. ABDOMEN: Soft. No bowel sounds. EXTREMITIES: Intact. No edema. SKIN: Without rash. NEUROLOGIC: Examination is difficult to assess given the cardiac arrest and also the sedation with propofol. LABS: Reviewed. White count 21.7, hemoglobin 13.2, hematocrit 39.8, platelet count is 40,000. PT was 38.6, INR was 3.9, PTT is 59.0. Blood gases have just been noted. Sodium 139, potassium 3.7, chloride 119, CO2 of 13. Anion gap is 7. BUN and creatinine were 25 and 2.81. Plasma lactic acid is down to 4.2 from 5.4. Calcium 5.8, ionized calcium is 4.2, AST 3652, bilirubin 1.7, ALT 472, alkaline phosphatase 132. Lipase less than 10. TSH was normal. Current microbiology is pending or negative. A chest x-ray shows an endotracheal tube which is too high up in the trachea. Apparently it was pushed down. It was 10 cm above the tracheal brett. There is some bibasilar atelectasis or infiltrates and small effusions bilaterally, left greater than right. CURRENT MEDICATIONS: Reviewed. He is on chlorhexidine, Narcan, norepinephrine, Protonix, Zosyn, potassium replacement therapy, propofol which I have asked him to stop, and the bicarbonate drip. The patient is also on 3 amps of sodium bicarb and D5W at 75 mL an hour as mentioned earlier. ASSESSMENT: 1. [id number]-[id number] cardiopulmonary arrest with cardiopulmonary resuscitation and eventual return of spontaneous circulation after 20 minutes. 2. Hypoxemic respiratory failure with intubation and mechanical ventilation on October 26. 3. Acute hypotension with possible underlying sepsis, requiring norepinephrine at 36 mcg/minute. Currently on Zosyn. 4. Hypotensive hepatopathy. 5. Acute on chronic renal failure. 6. Coagulopathy secondary to shock liver. 7. History of chronic pancreatitis. 8. History of chronic alcohol abuse. 9. History of chronic anemia. 10.Prior history of ventilatory dependent respiratory failure secondary to methicillin sensitive Staphylococcus aureus pneumonia. 11.Chronic dysphagia secondary to vocal cord injury with previous PEG tube placement. 12.Previous history of GI bleed. 13.History of cerebral atrophy with chronic small-vessel disease. 14.General medical debility. PLAN: The patient has received 2 units of PRBCs. Liver enzymes are quite elevated, likely from hypotension. The patient is currently on Zosyn. He is also receiving norepinephrine at 36 mcg/minute. He has received 5 L of total fluid. The blood gas was repeated. The pH is better. Will ask for an EEG. Head CT was negative. Will continue to follow. Overall prognosis remains very poor. Will start some tube feeds. Additional recommendations and suggestions are forthcoming. CRITICAL CARE TIME: 33 minutes. MMODL / IJN: [id number] /
[2019-10-28] MEDS ORDERED: Magnesium Replacement Protocol 1 EACH MISC MISCELLANE PRN (11:05)
[2019-10-28 11:32] LABS: Glucose,Whole Blood 130 mg/dL (75-99)
[2019-10-28] MEDS: MAGNESIUM SULFATE-D5W PMX 1 GM in DEXTROSE/WATER 1 100ML.BAG IVPB SCH ×3 (12:21→14:52)
[2019-10-28] MEDS: ENOXAPARIN 30 MG/0.3 ML SYRINGE SQ SCH (13:52)
--- NOTE | 2019-10-28 14:59 | P.CNNES ---
History of Present Illness Consult date: 10/28/19 Requesting physician: Luiz Singh Reason for Consult: Anoxic brain injury History of Present Illness: Patient is a 69-year-old male with history of liver disease, GI bleed, hypertension, presented to the ER with cardiac arrest. A neighbor checked on him yesterday morning. They noted that patient was struggling with breathing. They called EMS. As per EMS flow sheet, when they arrived, patient was nonverbal, shallow breathing, cold, pale dry skin. Neighbor who checks on patient said when he came in this morning patient asked him for a nebulizer for trouble breathing. Patient has no signs of trauma. Blood sugar was 61 mg/dL. EKG leads revealed A-V dissociation. Patient was placed on the stretcher. Patient became respiratory arrest. Patient was intubated on scene. Patient then went into cardiac arrest with pulseless electrical activity. Carlton device placed. CPR was done for 20 minutes prior to hospital arrival. Patient received 3 rounds of epinephrine and was intubated in the field. Patient was brought to the ER at 8 AM yesterday morning. CPR was continued. Return of spontaneous circulation was obtained and 20 minutes. Patient overnight has been stable. Patient at present is intubated. He is off sedation with propofol since 8:30 AM. Patient is showing meaningful response. Please refer to examination below. Chest x-ray showed low lying ET tube. Developing and regular airspace disease in the right lower lung may represent developing pneumonia. EKG shows sinus rhythm with first-degree AV block with PVC or fusion complexes. Low voltage QRS. Anteroseptal infarct, age undetermined. CT head showed no acute intracranial abnormality. Old lacunar infarct in the jung radiate on the right. Atrophic changes. Chronic white matter ischemic change. Patient's WBC 21.7 hemoglobin 13.2, elevated MCV 107.2, platelets 40. ABG with pH 7.28, pCO2 34, O2 103, saturation 97.3. Chem-7 shows BUN 25, creatinine 2.81, AST is 2000 432, ALT 650, ammonia normal, TSH normal. GENNA negative, ANCA negative, Review of Systems ROS unobtainable: due to endotracheal tube, due to mental status Past Medical History Past Medical History: Asthma, GI Bleed, Hypertension, Liver Disease, Neurologic Disorder, Pneumonia, Renal Disease Additional Past Medical History / Comment(s): Dysphagia, aspiration pneumonia/vented, peg tube placed but staff state with therapy pt recently able to take orals and they are just doing water flushes of peg [id number] also states past 1.5 weeks pt's oral intake has declined and he has refused to supplement with his peg tube-voices concern he will again lose ability to take orals, esophagitis, septic shock, pleural effusion with thoracentesis, pt wears oxygen ATC, GI bleed, calculus of bile duct/stented, acute cholecystitis, pancreatitis, R femoral pseudoaneurysm with acute blood loss anemia, CKD stage III with chronic anemia, nephrolithiasis, UTI, past ETOH abuse, alcoholic fatty liver, chronic generalized pain, muscle weakness, insomnia, protein calorie malnutrition, defiency of vitamis, thrombocytopenia, skin tear L buttock. History of Any Multi-Drug Resistant Organisms: ESBL Date of last positivie culture/infection: 06/19/19 MDRO Source:: ESBL ABDOMEN Past Surgical History: Orthopedic Surgery Additional Past Surgical History / Comment(s): Peg tube, R femoral pseudoaneurysm repair, C3-6 cervical surgery/plate, bilateral cataract removal with lens implants, umbilical hernia as a baby, bile duct stent, ERCP, Past Anesthesia/Blood Transfusion Reactions: No Reported Reaction Past Psychological History: No Psychological Hx Reported Smoking Status: Unknown if ever smoked Past Alcohol Use History: None Reported Past Drug Use History: None Reported - Past Family History Father Family Medical History: Cancer Additional Family Medical History / Comment(s): Melanoma Mother Family Medical History: Cancer Additional Family Medical History / Comment(s): Breast cancer. Medications and Allergies Home Medications Medication Instructions Recorded Confirmed Type Levothyroxine Sodium [Synthroid] 25 mcg PO DAILY 10/19/18 10/27/19 History Sodium Bicarbonate 650 mg PO Q8H 06/18/19 10/27/19 History amLODIPine [Norvasc] 5 mg PO DAILY 06/18/19 10/27/19 History Epoetin Von-Epbx [Retacrit] 4,000 units SQ Q7D 10/27/19 10/27/19 History Escitalopram [Lexapro] 10 mg PO DAILY 10/27/19 10/27/19 History Gabapentin [Neurontin] 400 mg PO HS 10/27/19 10/27/19 History HYDROcodone/APAP 10-325MG [[place] 1 tab PO Q4HR PRN 10/27/19 10/27/19 History 10-325] Ipratropium-Albuterol Nebulize 3 ml INHALATION RT-QID 10/27/19 10/27/19 History [Duoneb 0.5 mg-3 mg/3 ml Soln] Metoprolol Tartrate [Lopressor] 75 mg PO BID 10/27/19 10/27/19 History Omeprazole [PriLOSEC] 20 mg PO BID 10/27/19 10/27/19 History Allergies Allergy/AdvReac Type Severity Reaction Status Date / Time No Known Allergies Allergy Verified 10/27/19 13:13 Physical Examination - Vital Signs Vital Signs: Vital Signs Temp Pulse Resp BP Pulse Ox 10/28/19 11:00 68 22 98 10/28/19 10:00 67 22 97 10/28/19 09:00 65 20 98 10/28/19 08:00 36.1 F L 63 16 99 10/28/19 07:00 64 16 99 10/28/19 06:00 60 12 99 10/28/19 05:00 60 17 98 10/28/19 04:00 97.7 F 58 L 16 99 10/28/19 03:00 58 L 16 99 10/28/19 02:00 56 L 16 98 10/28/19 01:00 55 L 16 98 10/28/19 00:00 97.8 F 56 L 16 98 10/27/19 23:55 54 L 16 99 10/27/19 23:00 97.8 F 54 L 18 100 10/27/19 22:00 54 L 16 100 10/27/19 21:00 98.4 F 55 L 16 100 10/27/19 20:45 55 L 2 L 101/57 100 10/27/19 20:30 98.1 F 56 L 22 100 10/27/19 20:15 55 L 17 100 10/27/19 20:00 54 L 18 100 10/27/19 19:45 54 L 10 L 100 10/27/19 19:30 97.0 F L 53 L 17 100 10/27/19 19:15 53 L 17 100 10/27/19 19:00 53 L 18 100 10/27/19 18:45 53 L 16 100 10/27/19 18:30 53 L 16 100 10/27/19 18:15 52 L 20 10/27/19 18:00 52 L 20 100 10/27/19 17:59 95.5 F L 52 L 19 102/42 10/27/19 17:45 52 L 16 10/27/19 17:30 52 L 16 100 10/27/19 17:15 52 L 20 10/27/19 17:00 51 L 16 100 10/27/19 16:45 51 L 20 10/27/19 16:30 50 L 20 10/27/19 16:17 94.5 F L 50 L 20 97/41 10/27/19 16:15 50 L 20 100 10/27/19 16:00 94.3 F L 50 L 16 10/27/19 15:47 94.3 F L 51 L 18 91/40 10/27/19 15:45 50 L 20 10/27/19 15:37 94.3 F L 50 L 22 100/44 100 10/27/19 15:30 50 L 15 10/27/19 15:15 51 L 20 10/27/19 15:00 94.6 F L 52 L 16 10/27/19 14:45 52 L 16 10/27/19 14:30 53 L 16 10/27/19 14:15 60 16 73/55 99 10/27/19 14:00 65 18 85/60 10/27/19 13:50 93.2 F L 59 L 20 85/60 98 10/27/19 13:45 92.1 F L 69 20 83/58 10/27/19 12:18 93.1 F L 59 L 12 96/65 10/27/19 12:05 93 F L 60 12 91/55 Intake and Output 10/27/19 10/28/19 10/28/19 22:59 06:59 14:59 Intake Total 2306.653 522.949 719.775 Output Total 18 23 62 Balance 2288.653 499.949 657.775 Intake: IV 1550 400 575 Calcium Gluconate 2 gm In 100 Sodium Chloride 0.9% 100 ml @ 100 mls/hr IVPB ONCE ONE Rx#:[id number] Dextrose 5% in Water 1, 300 000 ml @ 75 mls/hr IV . [id number] ANTHONY with Sodium Bicarb (1 Meq/ml) 150 ml Rx#:[id number] Piperacillin-Tazobactam 3 75 100 100 .375 gm In Sodium Chloride 0.9% 100 ml @ 25 mls/hr IVPB Q8H [facility] Rx#: [id number] Potassium Chloride 20 meq 100 In Water For Injection 1 100ml.bag @ 50 mls/hr IVPB Q2H ANTHON[facility] Rx#: [id number] Sodium Chloride 0.9% 1, 375 300 75 000 ml @ 75 mls/hr IV . [id number] [facility] Rx#:[id number] Sodium Chloride 0.9% 1, 1000 000 ml @ 999 mls/hr IV . Q1H1M [facility] Rx#:[id number] Intake, IV Titration 446.653 122.949 144.775 Amount Norepinephrine 32 mg In 50.831 130.707 Sodium Chloride 0.9% 218 ml @ 0.05 MCG/KG/MIN 1. 378 mls/hr IV .Q24H [facility] Rx#:[id number] Norepinephrine 4 mg In 120.930 Sodium Chloride 0.9% 250 ml @ 0.05 MCG/KG/MIN 9. 505 mls/hr IV .Q24H [facility] Rx#:[id number] Norepinephrine 8 mg In 271.274 Sodium Chloride 0.9% 250 ml @ 0.6 MCG/KG/MIN 68. 267 mls/hr IV .Q3H47M [facility] Rx#:[id number] propofoL 1,000 mg In 54.449 72.118 14.068 Empty Bag 1 bag @ Titrate IV .Q0M [facility] Rx#: [id number] Blood Product 310 Rc As-1 Unit 310 [id number] Output: Urine 18 23 62 Other: Voiding Method Indwelling Catheter Indwelling Catheter Weight 65.6 kg 65.6 kg ABP, PAP, CO, CI - Last 8 Hours Arterial Blood Pressure 116/51 Arterial Blood Pressure 122/51 Arterial Blood Pressure 118/51 Arterial Blood Pressure 110/45 Arterial Blood Pressure 107/45 Arterial Blood Pressure 109/47 Arterial Blood Pressure 106/43 Arterial Blood Pressure 106/45 On examination patient is an elderly male, who is laying in the bed, intubated. He does open and closes his eyes spontaneously. Patient frequently blinks. Patient did not make eye contact, but after patient was given a noxious stimulus with nailbed pressure, he grimaced very purposefully, and made some eye contact. However he did not nod. Pupils are round and reacting to light. Patient is breathing over the ventilator. Patient does have a week cough and gag. Extraocular muscles appears intact. Patient did not begin his hands or feet. Reflexes are 1+, plantars are upgoing bilaterally. Tone is equal. Cerebellar functions, gait could not be tested. No obvious seizure activity noted. Results - Laboratory Findings CBC and BMP: 10/28/19 04:30 10/28/19 04:30 Abnormal Lab Findings: Abnormal Labs 10/27/19 10/27/19 10/27/19 08:10 08:15 08:20 WBC RBC Hgb Hct MCV MCH MCHC RDW Plt Count Neutrophils # Neutrophils # (Manual) Lymphocytes # Lymphocytes # (Manual) Metamyelocytes # (Man) Myelocytes # (Manual) Macrocytosis PT INR APTT ABG pH ABG pCO2 ABG pO2 ABG HCO3 ABG Total CO2 ABG O2 Saturation Sodium Chloride Carbon Dioxide BUN Creatinine Glucose POC Glucose (mg/dL) 26 L 21 L 25 L Plasma Lactic Acid Fred Calcium Ionized Calcium Cornelius Magnesium Total Bilirubin Conjugated Bilirubin Delta Bilirubin AST ALT Alkaline Phosphatase Total Protein Albumin Lipase Crossmatch 10/27/19 10/27/19 10/27/19 08:26 08:27 08:33 WBC RBC Hgb Hct MCV MCH MCHC RDW Plt Count Neutrophils # Neutrophils # (Manual) Lymphocytes # Lymphocytes # (Manual) Metamyelocytes # (Man) Myelocytes # (Manual) Macrocytosis PT INR APTT ABG pH ABG pCO2 ABG pO2 ABG HCO3 ABG Total CO2 ABG O2 Saturation Sodium Chloride Carbon Dioxide BUN Creatinine Glucose POC Glucose (mg/dL) 24 L 28 L <20 L Plasma Lactic Acid Fred Calcium Ionized Calcium Cornelius Magnesium Total Bilirubin Conjugated Bilirubin Delta Bilirubin AST ALT Alkaline Phosphatase Total Protein Albumin Lipase Crossmatch 10/27/19 10/27/19 10/27/19 08:50 08:50 08:50 WBC 12.9 H RBC 1.86 L Hgb 6.6 L* D Hct 23.8 L MCV 127.9 H D MCH 35.7 H MCHC 28.0 L RDW Plt Count 46 L D Neutrophils # Neutrophils # (Manual) 11.70 H Lymphocytes # Lymphocytes # (Manual) Metamyelocytes # (Man) 0.13 H Myelocytes # (Manual) 0.13 H Macrocytosis Marked A PT 44.6 H INR 4.5 H APTT 185.5 H* ABG pH ABG pCO2 ABG pO2 ABG HCO3 ABG Total CO2 ABG O2 Saturation Sodium 129 L Chloride 111 H Carbon Dioxide 8 L* BUN 26 H Creatinine 2.62 H Glucose 800 H* POC Glucose (mg/dL) Plasma Lactic Acid Fred Calcium 5.5 L* Ionized Calcium Cornelius Magnesium Total Bilirubin Conjugated Bilirubin Delta Bilirubin AST 2522 H ALT 317 H Alkaline Phosphatase Total Protein 2.6 L Albumin <1.0 L Lipase <10 L Crossmatch 10/27/19 10/27/19 10/27/19 08:50 08:53 09:10 WBC RBC Hgb Hct MCV MCH MCHC RDW Plt Count Neutrophils # Neutrophils # (Manual) Lymphocytes # Lymphocytes # (Manual) Metamyelocytes # (Man) Myelocytes # (Manual) Macrocytosis PT INR APTT ABG pH ABG pCO2 ABG pO2 ABG HCO3 ABG Total CO2 ABG O2 Saturation Sodium Chloride Carbon Dioxide BUN Creatinine Glucose POC Glucose (mg/dL) 44 L 192 H Plasma Lactic Acid Fred 7.8 H* Calcium Ionized Calcium Cornelius Magnesium Total Bilirubin Conjugated Bilirubin Delta Bilirubin AST ALT Alkaline Phosphatase Total Protein Albumin Lipase Crossmatch 10/27/19 10/27/19 10/27/19 09:15 09:15 09:22 WBC RBC Hgb Hct MCV MCH MCHC RDW Plt Count Neutrophils # Neutrophils # (Manual) Lymphocytes # Lymphocytes # (Manual) Metamyelocytes # (Man) Myelocytes # (Manual) Macrocytosis PT INR APTT ABG pH ABG pCO2 ABG pO2 ABG HCO3 ABG Total CO2 ABG O2 Saturation Sodium Chloride Carbon Dioxide BUN Creatinine Glucose POC Glucose (mg/dL) >600 H 205 H Plasma Lactic Acid Fred Calcium Ionized Calcium Cornelius Magnesium Total Bilirubin Conjugated Bilirubin Delta Bilirubin AST ALT Alkaline Phosphatase Total Protein Albumin Lipase Crossmatch See Detail 10/27/19 10/27/19 10/27/19 09:50 13:00 13:00 WBC RBC Hgb Hct MCV MCH MCHC RDW Plt Count Neutrophils # Neutrophils # (Manual) Lymphocytes # Lymphocytes # (Manual) Metamyelocytes # (Man) Myelocytes # (Manual) Macrocytosis PT INR APTT ABG pH 6.90 L* ABG pCO2 ABG pO2 >400 H ABG HCO3 7 L* ABG Total CO2 8 L ABG O2 Saturation 98.3 H Sodium Chloride Carbon Dioxide BUN Creatinine Glucose POC Glucose (mg/dL) Plasma Lactic Acid Fred 8.3 H* Calcium Ionized Calcium Cornelius 4.1 L Magnesium Total Bilirubin Conjugated Bilirubin Delta Bilirubin AST ALT Alkaline Phosphatase Total Protein Albumin Lipase Crossmatch 10/27/19 10/27/19 10/27/19 13:34 13:53 14:34 WBC RBC Hgb Hct MCV MCH MCHC RDW Plt Count Neutrophils # Neutrophils # (Manual) Lymphocytes # Lymphocytes # (Manual) Metamyelocytes # (Man) Myelocytes # (Manual) Macrocytosis PT INR APTT ABG pH 7.24 L ABG pCO2 34 L ABG pO2 121 H ABG HCO3 15 L ABG Total CO2 16 L ABG O2 Saturation 97.6 H Sodium Chloride Carbon Dioxide BUN Creatinine Glucose POC Glucose (mg/dL) 505 H 423 H Plasma Lactic Acid Fred Calcium Ionized Calcium Cornelius Magnesium Total Bilirubin Conjugated Bilirubin Delta Bilirubin AST ALT Alkaline Phosphatase Total Protein Albumin Lipase Crossmatch 10/27/19 10/27/19 10/27/19 14:36 14:40 14:40 WBC 19.7 H RBC 2.74 L Hgb 9.2 L D Hct 29.9 L MCV 109.2 H D MCH MCHC 30.9 L RDW 17.5 H Plt Count 55 L Neutrophils # 18.4 H Neutrophils # (Manual) Lymphocytes # 0.6 L Lymphocytes # (Manual) Metamyelocytes # (Man) Myelocytes # (Manual) Macrocytosis Marked A PT 38.6 H INR 3.9 H APTT 59.0 H ABG pH ABG pCO2 ABG pO2 ABG HCO3 ABG Total CO2 ABG O2 Saturation Sodium Chloride Carbon Dioxide BUN Creatinine Glucose POC Glucose (mg/dL) 426 H Plasma Lactic Acid Fred Calcium Ionized Calcium Cornelius Magnesium Total Bilirubin Conjugated Bilirubin Delta Bilirubin AST ALT Alkaline Phosphatase Total Protein Albumin Lipase Crossmatch 10/27/19 10/27/19 10/27/19 14:40 16:04 16:04 WBC RBC Hgb Hct MCV MCH MCHC RDW Plt Count Neutrophils # Neutrophils # (Manual) Lymphocytes # Lymphocytes # (Manual) Metamyelocytes # (Man) Myelocytes # (Manual) Macrocytosis PT INR APTT ABG pH ABG pCO2 ABG pO2 ABG HCO3 ABG Total CO2 ABG O2 Saturation Sodium Chloride 114 H Carbon Dioxide 14 L BUN 26 H Creatinine 2.66 H Glucose 380 H POC Glucose (mg/dL) 398 H Plasma Lactic Acid Fred 8.0 H* Calcium 5.6 L* Ionized Calcium Cornelius Magnesium Total Bilirubin 1.7 H Conjugated Bilirubin Delta Bilirubin AST 3652 H ALT 472 H Alkaline Phosphatase 132 H Total Protein 3.1 L Albumin 1.1 L Lipase Crossmatch 10/27/19 10/27/19 10/27/19 18:30 20:23 23:47 WBC RBC Hgb Hct MCV MCH MCHC RDW Plt Count Neutrophils # Neutrophils # (Manual) Lymphocytes # Lymphocytes # (Manual) Metamyelocytes # (Man) Myelocytes # (Manual) Macrocytosis PT INR APTT ABG pH ABG pCO2 ABG pO2 ABG HCO3 ABG Total CO2 ABG O2 Saturation Sodium Chloride Carbon Dioxide BUN Creatinine Glucose POC Glucose (mg/dL) 316 H 248 H Plasma Lactic Acid Fred 7.0 H* Calcium Ionized Calcium Cornelius Magnesium Total Bilirubin Conjugated Bilirubin Delta Bilirubin AST ALT Alkaline Phosphatase Total Protein Albumin Lipase Crossmatch 10/27/19 10/28/19 10/28/19 23:50 03:30 04:30 WBC 21.7 H RBC 3.72 L Hgb Hct MCV 107.2 H MCH 35.4 H MCHC RDW 18.6 H Plt Count 40 L Neutrophils # Neutrophils # (Manual) 20.60 H Lymphocytes # Lymphocytes # (Manual) 0.65 L Metamyelocytes # (Man) Myelocytes # (Manual) Macrocytosis Marked A PT INR APTT ABG pH ABG pCO2 ABG pO2 ABG HCO3 ABG Total CO2 ABG O2 Saturation Sodium Chloride Carbon Dioxide BUN Creatinine Glucose POC Glucose (mg/dL) Plasma Lactic Acid Fred 5.4 H* 4.3 H* Calcium Ionized Calcium Cornelius Magnesium Total Bilirubin Conjugated Bilirubin Delta Bilirubin AST ALT Alkaline Phosphatase Total Protein Albumin Lipase Crossmatch 10/28/19 10/28/19 10/28/19 04:30 04:30 05:05 WBC RBC Hgb Hct MCV MCH MCHC RDW Plt Count Neutrophils # Neutrophils # (Manual) Lymphocytes # Lymphocytes # (Manual) Metamyelocytes # (Man) Myelocytes # (Manual) Macrocytosis PT INR APTT ABG pH 7.17 L* ABG pCO2 33 L ABG pO2 ABG HCO3 12 L ABG Total CO2 13 L ABG O2 Saturation Sodium Chloride 119 H Carbon Dioxide 13 L BUN 25 H Creatinine 2.81 H Glucose 201 H POC Glucose (mg/dL) Plasma Lactic Acid Fred Calcium 5.8 L* Ionized Calcium Cornelius 4.2 L Magnesium 1.3 L Total Bilirubin 2.3 H Conjugated Bilirubin 1.1 H Delta Bilirubin 0.6 H AST 2432 H ALT 650 H Alkaline Phosphatase 186 H Total Protein 3.7 L Albumin 1.4 L Lipase Crossmatch 10/28/19 10/28/19 10/28/19 06:05 06:21 08:43 WBC RBC Hgb Hct MCV MCH MCHC RDW Plt Count Neutrophils # Neutrophils # (Manual) Lymphocytes # Lymphocytes # (Manual) Metamyelocytes # (Man) Myelocytes # (Manual) Macrocytosis PT INR APTT ABG pH 7.28 L ABG pCO2 34 L ABG pO2 ABG HCO3 16 L ABG Total CO2 17 L ABG O2 Saturation 97.3 H Sodium Chloride Carbon Dioxide BUN Creatinine Glucose POC Glucose (mg/dL) 232 H Plasma Lactic Acid Fred 4.2 H* Calcium Ionized Calcium Cornelius Magnesium Total Bilirubin Conjugated Bilirubin Delta Bilirubin AST ALT Alkaline Phosphatase Total Protein Albumin Lipase Crossmatch 10/28/19 10/28/19 09:42 11:30 WBC RBC Hgb Hct MCV MCH MCHC RDW Plt Count Neutrophils # Neutrophils # (Manual) Lymphocytes # Lymphocytes # (Manual) Metamyelocytes # (Man) Myelocytes # (Manual) Macrocytosis PT INR APTT ABG pH ABG pCO2 ABG pO2 ABG HCO3 ABG Total CO2 ABG O2 Saturation Sodium Chloride Carbon Dioxide BUN Creatinine Glucose POC Glucose (mg/dL) 130 H Plasma Lactic Acid Fred 4.3 H* Calcium Ionized Calcium Cornelius Magnesium Total Bilirubin Conjugated Bilirubin Delta Bilirubin AST ALT Alkaline Phosphatase Total Protein Albumin Lipase Crossmatch Assessment and Plan Assessment: * 69-year-old male with witnessed cardiac arrest with downtime of around 12 minutes. Patient at present showing some meaningful response. * Ventilator-dependent respiratory failure on mechanical ventilation. * Shock liver due to above. * Acute on chronic renal failure. * Coagulopathy, leukocytosis * History of alcoholism. Plan: * Patient is 30 hours post cardiac arrest. Patient at present is showing meaningful response, which favors relatively good prognosis. * We will continue with serial neurological examination. * Patient also has multiple medical issues, for which IM/critical care case.
[2019-10-28] MEDS ORDERED: HYDROmorphone 1 MG/ML 1 ML SYRINGE IVP PRN (17:06)
[2019-10-28] MEDS: HYDROmorphone 0.5 MG/0.5 ML SYRINGE IVP PRN ×2 (17:25→22:36)
--- NOTE | 2019-10-28 17:30 | CONS ---
CONSULTATION CHIEF COMPLAINT: Cardiopulmonary arrest. This is a 69-year-old gentleman with history of COPD, hypothyroidism, who presented to the hospital having had a cardiac arrest at home, who had pulseless electrical activity, has been intubated on vent, had a prolonged resuscitation. Cardiology has been consulted for the pain. There was troponin when he first came and that was negative. He had a chest x-ray that showed sinus rhythm with evidence of prior anterolateral myocardial infarction with poor R-wave progression. The chest x-ray revealed mild infiltrate. At the time of my evaluation, he is intubated on vent, sedated and unresponsive. PAST MEDICAL HISTORY, MEDICATIONS, ALLERGIES, FAMILY HISTORY, SOCIAL HISTORY, REVIEW OF SYSTEMS: I reviewed the chart and I am not able to obtain anything from the patient. PHYSICAL EXAM: Heart rate is 70 beats per minute, blood pressure is 111/48, respiratory rate is 20, O2 saturation is 98%. There is no jugular venous distention. Chest exam reveals diminished air entry bilaterally. Heart exam reveals first and second heart sounds. Systolic murmur at the apex. Abdomen is soft. Exam of extremities did not reveal any edema. Peripheral pulses are felt. LABS: Show that the lactic acid is elevated. CBC shows a hemoglobin of 13.2, white cell count is 20. Potassium is 3.7, BUN is 25, creatinine is 0.8. His are elevated. ASSESSMENT: 1. Acute cardiac respiratory arrest plan. 2. Vent requiring respiratory failure. PLAN: Patient's prognosis is guarded. Continue supportive care. I will obtain a 2D echo to assess LV function. I will obtain another set of troponin. MMODL / IJN: [id number] /
[2019-10-28 18:11] LABS: Glucose,Whole Blood 186 mg/dL (75-99)
--- NOTE | 2019-10-28 18:15 | EEG ---
ELECTROENCEPHALOGRAM REPORT DATE OF SERVICE: 10/28/2019 PREAMBLE: This is a 69-year-old male with cardiac arrest. This study is performed to evaluate for encephalopathy, rule out any epileptiform activity. EEG FINDINGS: This is a 21-channel portable routine EEG recording in a patient utilizing 10-20 international system with referential and bipolar montages. Background consists of well- developed, poorly regulated, mixed frequencies of generalized 2-3 hertz delta, with some fast frequency activity. There are very frequent triphasic waves seen in bihemispheric region. Photic driving response was not seen. Different stages of sleep were not seen. No focal or generalized epileptiform activity was seen. IMPRESSION: This is an abnormal EEG due to: 1. Background slowing of moderate to severe degree. 2. Presence of significant triphasic waves seen throughout the study. CLINICAL IMPRESSION: This is suggestive of generalized cerebral dysfunction as can be seen with toxic metabolic encephalopathy or due to diffuse structural brain abnormality. The presence of triphasic waves suggest hepatic encephalopathy. Clinical correlation is also recommended. MMODL / IJN: [id number] /
[2019-10-28 20:25] LABS: Magnesium 2.1 mg/dL (1.6-2.3); Potassium 3.3 mmol/L (3.5-5.1)
[2019-10-28] MEDS: POTASSIUM CHLORIDE 20 MEQ in WATER FOR INJECTION 1 100ML.BAG IVPB SCH ×2 (21:00→23:16)
--- NOTE | 2019-10-28 22:18 | P.PN ---
Progress Note - Text Progress Note Date: 10/28/19 Presenting complaint: Shoulder. Interval history: From the records: This is a 69 years old male With multiple medical problems as below. Patient is intubated and unresponsive and could not provide information so it was obtained from staff and medical records, no family at bedside. Patient Presents because the neighbors called 911/AMS 4 patient was dyspneic, and brought to the hospital patient became unresponsive with PEA in ambulance, CPR was in associated, he got 3 samples of epinephrine in the ambulance and 1 other dose of epinephrine in the hospital. His CPR downtown was about 20 minutes Patient also hypoglycemic and hypothermic and hypotensive , blood glucose was 20 h glucose D 50% with partial correction and was placed on D10% effusion, however his sugar jumped to 800 so D10%was stopped and currently glucose in around 300. He was placed on Jarad hugger and Currently he is on Levophed at 0.57 which is high dose showing leukocytosis of 12.9 and 19.7 K, hemoglobin 6.6 corrected to 9.2 after blood transfusion, platelets 46 and 50 5K. INR 4.5 and 3.9. PH was 6.9 and 7.2. Creatinine 2.6 which are unknown baseline. Lactic acid 8.0 7.0. Elevated liver enzymes with AST 3652 and ALT 472 . Troponin is negative Hemoglobin was 6 and INR was 4 and he got 1 dose of vitamin K and 2 units of blood transfusion Patient got Zithromax and ceftriaxone in the emergency room, patient continued on Zosyn, [id number]. FiO2 40% and a PEEP of 5. Drips include we will affect, propofol, bicarbonate. Telemetry shows sinus rhythm. 2 feeding started at 10 mL an hour. Review of systems: Patient intubated Active Medications Chlorhexidine Gluconate (Peridex) 15 ml MUCOUS MEM BID [facility] Last Admin: 10/28/19 20:26 Dose: 15 ml Documented by: Enoxaparin Sodium (Lovenox) 30 mg SQ DAILY [facility] Last Admin: 10/28/19 13:52 Dose: 30 mg Documented by: Hydromorphone HCl (Dilaudid) 0.5 mg IVP Q3HR PRN PRN Reason: Pain Last Admin: 10/28/19 17:25 Dose: 0.5 mg Documented by: Hydromorphone HCl (Dilaudid) 1 mg IVP Q4HR PRN PRN Reason: Pain Propofol 1,000 mg/ IV Solution 100 mls @ 0 mls/hr IV .Q0M [facility]; Protocol Last Titration: 10/28/19 08:36 Dose: 0 mcg/kg/min, 0 mls/hr Documented by: Piperacillin Sod/Tazobactam (Sod 3.375 gm/ Sodium Chloride) 100 mls @ 25 mls/hr IVPB Q8H [facility] Last Admin: 10/28/19 17:17 Dose: 25 mls/hr Documented by: Norepinephrine Bitartrate 32 (mg/ Sodium Chloride) 250 mls @ 1.378 mls/hr IV .Q24H [facility]; Protocol Last Titration: 10/28/19 16:53 Dose: 0.2 mcg/kg/min, 5.513 mls/hr Documented by: Sodium Bicarbonate 150 ml/ (Dextrose/Water) 1,150 mls @ 75 mls/hr IV .[id number] [facility] Last Admin: 10/28/19 21:10 Dose: 75 mls/hr Documented by: Potassium Chloride 20 meq/ IV (Solution) 100 mls @ 50 mls/hr IVPB Q2H [facility]; Protocol Stop: 10/29/19 00:59 Last Admin: 10/28/19 21:00 Dose: 50 mls/hr Documented by: Miscellaneous Information (Potassium Per Protocol) 1 each MISCELLANE DAILY PRN; Protocol PRN Reason: Per Protocol Miscellaneous Information (Magnesium Per Protocol) 1 each MISCELLANE DAILY PRN; Protocol PRN Reason: Per Protocol Naloxone HCl (Narcan) 0.2 mg IV Q2M PRN PRN Reason: Opioid Reversal Pantoprazole Sodium (Protonix) 40 mg IVP DAILY [facility] Last Admin: 10/28/19 10:00 Dose: 40 mg Documented by: On examination: VITAL SIGNS: 98.2, 73, 14, 103/47, 97% on the ventilator GENERAL APPEARANCE: Laying in bed, intubated, sedated HEENT: Normal external appearance of nose and ear. Oral cavity-endotracheal tube EYES: Pupils equal. Conjunctiva pale. NECK: JVD not raised. Mass not palpable. RESPIRATORY: Respiratory effort increased, decreased breath sounds,. CARDIOVASCULAR: First and second sounds normal. No edema. ABDOMEN: Soft. Liver and spleen not palpable. No tenderness. No mass palpable. PEG tube site appearance clean PSYCHIATRY: Patient sedated INVESTIGATIONS, reviewed in the clinical context: White count 21.7 hemoglobin 13.2 platelets 40 potassium 3.7 BUN-25, creatinine 2.81 ionized calcium 4.2 AST 2432 ALT 650 albumin 1.4 Chest [id number] infiltrate Computed tomography scan of the chest-bibasilar airspace disease, emphysema changes, chronic calcific pancreatitis, Computed tomography scan of the brain-old lacunar infarct in the jung radiata on the right, chronic changes Assessment: -Status post cardiac arrest witnessed the downtime of about 12 minutes. -Chronic kidney disease stage III from nephrosclerosis -Moderate protein calorie malnutrition -Chronic medical debility does use a wheelchair -Chronic esophagitis -Chronic dysphagia -Ischemic hepatitis from hypotension -Hypocalcemia -Aspiration pneumonia due to altered mental status -Chronic pancreatitis -Combination of metabolic and respiratory acidosis. -acute hypoxic respiratory failure, on ventilator support-sodium respond -Hypertensive and/or septic shock requiring pressor support Plan: Patient is currently on bicarbonate drip, D Yosef drip, IV Zosyn, propofol. Intubated. Prognosis is guarded. Follow-up in steam room attendant, neurology, cardiology. Prognosis is guarded
[2019-10-29 00:10] LABS: Glucose,Whole Blood 157 mg/dL (75-99)
[2019-10-29] MEDS: PIPERACILLIN-TAZOBACTAM 3.375 GM in SODIUM CHLORIDE 0.9% 100 ML IVPB SCH ×3 (01:47→16:55)
[2019-10-29] MEDS: HYDROmorphone 0.5 MG/0.5 ML SYRINGE IVP PRN (01:54)
[2019-10-29 05:49] LABS: ABG Base Excess -3.3 mmol/L; ABG HCO3 23 mmol/L (21-25); ABG Oxygen Saturation 97.2 % (94-97); ABG PCO2 43 mmHg (35-45); ABG PH 7.33 (7.35-7.45); ABG PO2 98 mmHg (83-108); ABG TCO2 24 mmol/L (19-24); Allen Test Performed? Yes
[2019-10-29 06:43] LABS: Glucose,Whole Blood 141 mg/dL (75-99)
--- NOTE | 2019-10-29 07:03 | XR ---
EXAMINATION TYPE: XR chest 1V portable DATE OF EXAM: 10/29/2019 COMPARISON: 10/28/2019 HISTORY: SOB, Follow Up FINDINGS: Indwelling tubes and catheters are unchanged. No change in bibasilar opacities. Stable appearance of the cardio-mediastinal structures at this time. Pleural effusion unchanged. IMPRESSION: 1. Stable portable chest. Clinical correlation and follow up until resolution is recommended.
[2019-10-29 07:39] LABS: Anisocytosis Slight; HCT 33.7 % (39.0-53.0); HGB 10.9 gm/dL (13.0-17.5); Hypochromasia Slight; MCH 33.3 pg (25.0-35.0); MCHC 32.3 g/dL (31.0-37.0); Macrocytosis Moderate; Mean Platelet Volume 13.7; RBC 3.27 m/uL (4.30-5.90); WBC 13.5 k/uL (3.8-10.6)
[2019-10-29 07:41] LABS: INR 1.8 (<1.2); Prothrombin Time 18.1 sec (9.0-12.0)
[2019-10-29 07:52] LABS: Albumin 1.2 g/dL (3.5-5.0); Magnesium 1.9 mg/dL (1.6-2.3); Potassium 3.7 mmol/L (3.5-5.1); Total Bilirubin 2.8 mg/dL (0.2-1.3); Total Protein 3.3 g/dL (6.3-8.2)
--- NOTE | 2019-10-29 08:24 | P.CONS ---
History of Present Illness - Reason for Consult Consult date: 10/28/19 Elevated liver enzymes Requesting physician: John Elliott - Chief Complaint AMS, respiratory arrest - History of Present Illness 69-year-old male with multiple medical comorbidities including alcohol abuse who presented to the hospital due to respiratory arrest after the patient was found short of breath with altered mental status and EMS was called. Patient underwen t CPR and is currently in the intensive care unit receiving ventilatory support. Previously the patient had been seen for anemia with EGD and colonoscopy performed in 07/16/2018 with no active bleeding noted, fair colon prep with colon polyps removed in the setting of GI bleed. Upper presentation CT of the abdomen showed chronic pancreatitis, thickening of the sigmoid colon and fatty infiltration of the liver. The patient is currently intubated and sedated. The gastroenterology service was consulted to see the patient due to marked elevation in his liver enzymes predominantly in a hepatocellular pattern with total bilirubin 2.3, alkaline phosphatase 186, AST 2432 and ALT 650. Review of Systems ROS unobtainable: due to endotracheal tube, due to mental status (Patient is currently intubated and sedated) Past Medical History Past Medical History: Asthma, GI Bleed, Hypertension, Liver Disease, Neurologic Disorder, Pneumonia, Renal Disease Additional Past Medical History / Comment(s): Dysphagia, aspiration pneumonia/vented, peg tube placed but staff state with therapy pt recently able to take orals and they are just doing water flushes of peg [id number] also states past 1.5 weeks pt's oral intake has declined and he has refused to supplement with his peg tube-voices concern he will again lose ability to take orals, esophagitis, septic shock, pleural effusion with thoracentesis, pt wears oxygen ATC, GI bleed, calculus of bile duct/stented, acute cholecystitis, p ancreatitis, R femoral pseudoaneurysm with acute blood loss anemia, CKD stage III with chronic anemia, nephrolithiasis, UTI, past ETOH abuse, alcoholic fatty liver, chronic generalized pain, muscle weakness, insomnia, protein calorie malnutrition, defiency of vitamis, thrombocytopenia, skin tear L buttock. History of Any Multi-Drug Resistant Organisms: ESBL Year Discovered:: 06/19/19 MDRO Source:: ESBL ABDOMEN Past Surgical History: Orthopedic Surgery Additional Past Surgical History / Comment(s): Peg tube, R femoral pseudoaneurysm repair, C3-6 cervical surgery/plate, bilateral cataract removal with lens implants, umbilical hernia as a baby, bile duct stent, ERCP, Past Anesthesia/Blood Transfusion Reactions: No Reported Reaction Past Psychological History: No Psychological Hx Reported Smoking Status: Unknown if ever smoked Past Alcohol Use History: None Reported Past Drug Use History: None Reported - Past Family History Father Family Medical History: Cancer Additional Family Medical History / Comment(s): Melanoma Mother Family Medical History: Cancer Additional Family Medical History / Comment(s): Breast cancer. Medications and Allergies Home Medications Medication Instructions Recorded Confirmed Type Levothyroxine Sodium [Synthroid] 25 mcg PO DAILY 10/19/18 10/27/19 History Sodium Bicarbonate 650 mg PO Q8H 06/18/19 10/27/19 History amLODIPine [Norvasc] 5 mg PO DAILY 06/18/19 10/27/19 History Epoetin Von-Epbx [Retacrit] 4,000 units SQ Q7D 10/27/19 10/27/19 History Escitalopram [Lexapro] 10 mg PO DAILY 10/27/19 10/27/19 History Gabapentin [Neurontin] 400 mg PO HS 10/27/19 10/27/19 History HYDROcodone/APAP 10-325MG [[place] 1 tab PO Q4HR PRN 10/27/19 10/27/19 History 10-325] Ipratropium-Albuterol Nebulize 3 ml INHALATION RT-QID 10/27/19 10/27/19 History [Duoneb 0.5 mg-3 mg/3 ml Soln] Metoprolol Tartrate [Lopressor] 75 mg PO BID 10/27/19 10/27/19 History Omeprazole [PriLOSEC] 20 mg PO BID 10/27/19 10/27/19 History Allergies Allergy/AdvReac Type Severity Reaction Status Date / Time No Known Allergies Allergy Verified 10/27/19 13:13 Physical Exam Vitals: Vital Signs Temp Pulse Resp BP Pulse Ox 10/28/19 13:00 70 22 98 10/28/19 12:00 97.3 F L 68 21 98 10/28/19 11:00 68 22 98 10/28/19 10:00 67 22 97 10/28/19 09:00 65 20 98 10/28/19 08:00 36.1 F L 63 16 99 07/27/20 07:00 64 16 99 10/28/19 06:00 60 12 99 10/28/19 05:00 60 17 98 10/28/19 04:00 97.7 F 58 L 16 99 10/28/19 03:00 58 L 16 99 10/28/19 02:00 56 L 16 98 10/28/19 01:00 55 L 16 98 10/28/19 00:00 97.8 F 56 L 16 98 10/27/19 23:55 54 L 16 99 10/27/19 23:00 97.8 F 54 L 18 100 10/27/19 22:00 54 L 16 100 10/27/19 21:00 98.4 F 55 L 16 100 10/27/19 20:45 55 L 2 L 101/57 100 10/27/19 20:30 98.1 F 56 L 22 100 10/27/19 20:15 55 L 17 100 10/27/19 20:00 54 L 18 100 10/27/19 19:45 54 L 10 L 100 10/27/19 19:30 97.0 F L 53 L 17 100 10/27/19 19:15 53 L 17 100 10/27/19 19:00 53 L 18 100 10/27/19 18:45 53 L 16 10/27/19 18:30 53 L 16 100 10/27/19 18:15 52 L 20 100 10/27/19 18:00 52 L 20 100 10/27/19 17:59 95.5 F L 52 L 19 102/42 100 10/27/19 17:45 52 L 16 100 10/27/19 17:30 52 L 16 100 10/27/19 17:15 52 L 20 100 10/27/19 17:00 51 L 16 100 10/27/19 16:45 51 L 20 100 10/27/19 16:30 50 L 20 100 10/27/19 16:17 94.5 F L 50 L 20 97/41 100 10/27/19 16:15 50 L 20 100 10/27/19 16:00 94.3 F L 50 L 16 100 10/27/19 15:47 94.3 F L 51 L 18 91/40 100 10/27/19 15:45 50 L 20 100 10/27/19 15:37 94.3 F L 50 L 22 100/44 100 10/27/19 15:30 50 L 15 100 10/27/19 15:15 51 L 20 100 10/27/19 15:00 94.6 F L 52 L 16 100 10/27/19 14:45 52 L 16 100 10/27/19 14:30 53 L 16 100 10/27/19 14:15 60 16 73/55 99 10/27/19 14:00 65 18 85/60 100 10/27/19 13:50 93.2 F L 59 L 20 85/60 98 10/27/19 13:45 92.1 F L 69 20 83/58 100 Intake and Output 10/27/19 10/28/19 10/28/19 22:59 06:59 14:59 Intake Total 2306.653 522.949 883.355 Output Total 18 23 94 Balance 2288.653 499.949 789.355 Intake: IV 1550 400 731 Calcium Gluconate 2 gm In 100 Sodium Chloride 0.9% 100 ml @ 100 mls/hr IVPB ONCE [facility] Rx#:[id number] Dextrose 5% in Water 1, 450 000 ml @ 75 mls/hr IV . [id number] [facility] with Sodium Bicarb (1 Meq/ml) 150 ml Rx#:[id number] Piperacillin-Tazobactam 3 75 100 100 .375 gm In Sodium Chloride 0.9% 100 ml @ 25 mls/hr IVPB Q8H [facility] Rx#: [id number] Potassium Chloride 20 meq 100 In Water For Injection 1 100ml.bag @ 50 mls/hr IVPB Q2H [facility] Rx#: [id number] Pressure Bag 0.9 6 Sodium Chloride 0.9% 1, 375 300 75 000 ml @ 75 mls/hr IV . [id number] [facility] Rx#:[id number] Sodium Chloride 0.9% 1, 1000 000 ml @ 999 mls/hr IV . Q1H1M [facility] Rx#:[id number] Intake, IV Titration 446.653 122.949 152.355 Amount Norepinephrine 32 mg In 50.831 138.287 Sodium Chloride 0.9% 218 ml @ 0.05 MCG/KG/MIN 1. 378 mls/hr IV .Q24H [facility] Rx#:[id number] Norepinephrine 4 mg In 120.930 Sodium Chloride 0.9% 250 ml @ 0.05 MCG/KG/MIN 9. 505 mls/hr IV .Q24H [facility] Rx#:[id number] Norepinephrine 8 mg In 271.274 Sodium Chloride 0.9% 250 ml @ 0.6 MCG/KG/MIN 68. 267 mls/hr IV .Q3H47M [facility] Rx#:[id number] propofoL 1,000 mg In 54.449 72.118 14.068 Empty Bag 1 bag @ Titrate IV .Q0M [facility] Rx#: [id number] Blood Product 310 Rc As-1 Unit 310 [id number] Output: Urine 18 23 94 Other: Voiding Method Indwelling Catheter Indwelling Catheter Weight 65.6 kg 65.6 kg ABP, PAP, CO, CI - Last 8 Hours Arterial Blood Pressure 111/48 Arterial Blood Pressure 118/52 Arterial Blood Pressure 116/51 Arterial Blood Pressure 122/51 Arterial Blood Pressure 118/51 Arterial Blood Pressure 110/45 Arterial Blood Pressure 107/45 Arterial Blood Pressure 109/47 Results CBC & Chem 7: 10/28/19 04:30 10/28/19 19:56 Labs: Abnormal Lab Results - Last 24 Hours (Table) 10/27/19 10/27/19 10/27/19 Range/Units 09:15 13:00 13:00 WBC (3.8-10.6) k/uL RBC (4.30-5.90) m/uL Hgb (13.0-17.5) gm/dL Hct (39.0-53.0) % MCV (80.0-100.0) fL MCH (25.0-35.0) pg MCHC (31.0-37.0) g/dL RDW (11.5-15.5) % Plt Count (150-450) k/uL Neutrophils # (1.3-7.7) k/uL Neutrophils # (Manual) (1.3-7.7) k/uL Lymphocytes # (1.0-4.8) k/uL Lymphocytes # (Manual) (1.0-4.8) k/uL Macrocytosis PT (9.0-12.0) sec INR (<1.2) APTT (22.0-30.0) sec ABG pH (7.35-7.45) ABG pCO2 (35-45) mmHg ABG pO2 (83-108) mmHg ABG HCO3 (21-25) mmol/L ABG Total CO2 (19-24) mmol/L ABG O2 Saturation (94-97) % Chloride (98-107) mmol/L Carbon Dioxide (22-30) mmol/L BUN (9-20) mg/dL Creatinine (0.66-1.25) mg/dL Glucose (74-99) mg/dL POC Glucose (mg/dL) (75-99) mg/dL Plasma Lactic Acid Fred 8.3 H* (0.7-2.0) mmol/L Calcium (8.4-10.2) mg/dL Ionized Calcium Cornelius 4.1 L (4.5-5.3) mg/dL Magnesium (1.6-2.3) mg/dL Total Bilirubin (0.2-1.3) mg/dL Conjugated Bilirubin (0.0-0.3) mg/dL Delta Bilirubin (0.0-0.2) mg/dL AST (17-59) U/L ALT (4-49) U/L Alkaline Phosphatase (38-126) U/L Total Protein (6.3-8.2) g/dL Albumin (3.5-5.0) g/dL Crossmatch See Detail 10/27/19 10/27/19 10/27/19 Range/Units 13:34 13:53 14:34 WBC (3.8-10.6) k/uL RBC (4.30-5.90) m/uL Hgb (13.0-17.5) gm/dL Hct (39.0-53.0) % MCV (80.0-100.0) fL MCH (25.0-35.0) pg MCHC (31.0-37.0) g/dL RDW (11.5-15.5) % Plt Count (150-450) k/uL Neutrophils # (1.3-7.7) k/uL Neutrophils # (Manual) (1.3-7.7) k/uL Lymphocytes # (1.0-4.8) k/uL Lymphocytes # (Manual) (1.0-4.8) k/uL Macrocytosis PT (9.0-12.0) sec INR (<1.2) APTT (22.0-30.0) sec ABG pH 7.24 L (7.35-7.45) ABG pCO2 34 L (35-45) mmHg ABG pO2 121 H (83-108) mmHg ABG HCO3 15 L (21-25) mmol/L ABG Total CO2 16 L (19-24) mmol/L ABG O2 Saturation 97.6 H (94-97) % Chloride (98-107) mmol/L Carbon Dioxide (22-30) mmol/L BUN (9-20) mg/dL Creatinine (0.66-1.25) mg/dL Glucose (74-99) mg/dL POC Glucose (mg/dL) 505 H 423 H (75-99) mg/dL Plasma Lactic Acid Fred (0.7-2.0) mmol/L Calcium (8.4-10.2) mg/dL Ionized Calcium Cornelius (4.5-5.3) mg/dL Magnesium (1.6-2.3) mg/dL Total Bilirubin (0.2-1.3) mg/dL Conjugated Bilirubin (0.0-0.3) mg/dL Delta Bilirubin (0.0-0.2) mg/dL AST (17-59) U/L ALT (4-49) U/L Alkaline Phosphatase (38-126) U/L Total Protein (6.3-8.2) g/dL Albumin (3.5-5.0) g/dL Crossmatch 10/27/19 10/27/19 10/27/19 Range/Units 14:36 14:40 14:40 WBC 19.7 H (3.8-10.6) k/uL RBC 2.74 L (4.30-5.90) m/uL Hgb 9.2 L D (13.0-17.5) gm/dL Hct 29.9 L (39.0-53.0) % MCV 109.2 H D (80.0-100.0) fL MCH (25.0-35.0) pg MCHC 30.9 L (31.0-37.0) g/dL RDW 17.5 H (11.5-15.5) % Plt Count 55 L (150-450) k/uL Neutrophils # 18.4 H (1.3-7.7) k/uL Neutrophils # (Manual) (1.3-7.7) k/uL Lymphocytes # 0.6 L (1.0-4.8) k/uL Lymphocytes # (Manual) (1.0-4.8) k/uL Macrocytosis Marked A PT 38.6 H (9.0-12.0) sec INR 3.9 H (<1.2) APTT 59.0 H (22.0-30.0) sec ABG pH (7.35-7.45) ABG pCO2 (35-45) mmHg ABG pO2 (83-108) mmHg ABG HCO3 (21-25) mmol/L ABG Total CO2 (19-24) mmol/L ABG O2 Saturation (94-97) % Chloride (98-107) mmol/L Carbon Dioxide (22-30) mmol/L BUN (9-20) mg/dL Creatinine (0.66-1.25) mg/dL Glucose (74-99) mg/dL POC Glucose (mg/dL) 426 H (75-99) mg/dL Plasma Lactic Acid Fred (0.7-2.0) mmol/L Calcium (8.4-10.2) mg/dL Ionized Calcium Cornelius (4.5-5.3) mg/dL Magnesium (1.6-2.3) mg/dL Total Bilirubin (0.2-1.3) mg/dL Conjugated Bilirubin (0.0-0.3) mg/dL Delta Bilirubin (0.0-0.2) mg/dL AST (17-59) U/L ALT (4-49) U/L Alkaline Phosphatase (38-126) U/L Total Protein (6.3-8.2) g/dL Albumin (3.5-5.0) g/dL Crossmatch 10/27/19 10/27/19 10/27/19 Range/Units 14:40 16:04 16:04 WBC (3.8-10.6) k/uL RBC (4.30-5.90) m/uL Hgb (13.0-17.5) gm/dL Hct (39.0-53.0) % MCV (80.0-100.0) fL MCH (25.0-35.0) pg MCHC (31.0-37.0) g/dL RDW (11.5-15.5) % Plt Count (150-450) k/uL Neutrophils # (1.3-7.7) k/uL Neutrophils # (Manual) (1.3-7.7) k/uL Lymphocytes # (1.0-4.8) k/uL Lymphocytes # (Manual) (1.0-4.8) k/uL Macrocytosis PT (9.0-12.0) sec INR (<1.2) APTT (22.0-30.0) sec ABG pH (7.35-7.45) ABG pCO2 (35-45) mmHg ABG pO2 (83-108) mmHg ABG HCO3 (21-25) mmol/L ABG Total CO2 (19-24) mmol/L ABG O2 Saturation (94-97) % Chloride 114 H (98-107) mmol/L Carbon Dioxide 14 L (22-30) mmol/L BUN 26 H (9-20) mg/dL Creatinine 2.66 H (0.66-1.25) mg/dL Glucose 380 H (74-99) mg/dL POC Glucose (mg/dL) 398 H (75-99) mg/dL Plasma Lactic Acid Fred 8.0 H* (0.7-2.0) mmol/L Calcium 5.6 L* (8.4-10.2) mg/dL Ionized Calcium Cornelius (4.5-5.3) mg/dL Magnesium (1.6-2.3) mg/dL Total Bilirubin 1.7 H (0.2-1.3) mg/dL Conjugated Bilirubin (0.0-0.3) mg/dL Delta Bilirubin (0.0-0.2) mg/dL AST 3652 H (17-59) U/L ALT 472 H (4-49) U/L Alkaline Phosphatase 132 H (38-126) U/L Total Protein 3.1 L (6.3-8.2) g/dL Albumin 1.1 L (3.5-5.0) g/dL Crossmatch 10/27/19 10/27/19 10/27/19 Range/Units 18:30 20:23 23:47 WBC (3.8-10.6) k/uL RBC (4.30-5.90) m/uL Hgb (13.0-17.5) gm/dL Hct (39.0-53.0) % MCV (80.0-100.0) fL MCH (25.0-35.0) pg MCHC (31.0-37.0) g/dL RDW (11.5-15.5) % Plt Count (150-450) k/uL Neutrophils # (1.3-7.7) k/uL Neutrophils # (Manual) (1.3-7.7) k/uL Lymphocytes # (1.0-4.8) k/uL Lymphocytes # (Manual) (1.0-4.8) k/uL Macrocytosis PT (9.0-12.0) sec INR (<1.2) APTT (22.0-30.0) sec ABG pH (7.35-7.45) ABG pCO2 (35-45) mmHg ABG pO2 (83-108) mmHg ABG HCO3 (21-25) mmol/L ABG Total CO2 (19-24) mmol/L ABG O2 Saturation (94-97) % Chloride (98-107) mmol/L Carbon Dioxide (22-30) mmol/L BUN (9-20) mg/dL Creatinine (0.66-1.25) mg/dL Glucose (74-99) mg/dL POC Glucose (mg/dL) 316 H 248 H (75-99) mg/dL Plasma Lactic Acid Fred 7.0 H* (0.7-2.0) mmol/L Calcium (8.4-10.2) mg/dL Ionized Calcium Cornelius (4.5-5.3) mg/dL Magnesium (1.6-2.3) mg/dL Total Bilirubin (0.2-1.3) mg/dL Conjugated Bilirubin (0.0-0.3) mg/dL Delta Bilirubin (0.0-0.2) mg/dL AST (17-59) U/L ALT (4-49) U/L Alkaline Phosphatase (38-126) U/L Total Protein (6.3-8.2) g/dL Albumin (3.5-5.0) g/dL Crossmatch 10/27/19 10/28/19 10/28/19 Range/Units 23:50 03:30 04:30 WBC 21.7 H (3.8-10.6) k/uL RBC 3.72 L (4.30-5.90) m/uL Hgb (13.0-17.5) gm/dL Hct (39.0-53.0) % MCV 107.2 H (80.0-100.0) fL MCH 35.4 H (25.0-35.0) pg MCHC (31.0-37.0) g/dL RDW 18.6 H (11.5-15.5) % Plt Count 40 L (150-450) k/uL Neutrophils # (1.3-7.7) k/uL Neutrophils # (Manual) 20.60 H (1.3-7.7) k/uL Lymphocytes # (1.0-4.8) k/uL Lymphocytes # (Manual) 0.65 L (1.0-4.8) k/uL Macrocytosis Marked A PT (9.0-12.0) sec INR (<1.2) APTT (22.0-30.0) sec ABG pH (7.35-7.45) ABG pCO2 (35-45) mmHg ABG pO2 (83-108) mmHg ABG HCO3 (21-25) mmol/L ABG Total CO2 (19-24) mmol/L ABG O2 Saturation (94-97) % Chloride (98-107) mmol/L Carbon Dioxide (22-30) mmol/L BUN (9-20) mg/dL Creatinine (0.66-1.25) mg/dL Glucose (74-99) mg/dL POC Glucose (mg/dL) (75-99) mg/dL Plasma Lactic Acid Fred 5.4 H* 4.3 H* (0.7-2.0) mmol/L Calcium (8.4-10.2) mg/dL Ionized Calcium Cornelius (4.5-5.3) mg/dL Magnesium (1.6-2.3) mg/dL Total Bilirubin (0.2-1.3) mg/dL Conjugated Bilirubin (0.0-0.3) mg/dL Delta Bilirubin (0.0-0.2) mg/dL AST (17-59) U/L ALT (4-49) U/L Alkaline Phosphatase (38-126) U/L Total Protein (6.3-8.2) g/dL Albumin (3.5-5.0) g/dL Crossmatch 10/28/19 10/28/19 10/28/19 Range/Units 04:30 04:30 05:05 WBC (3.8-10.6) k/uL RBC (4.30-5.90) m/uL Hgb (13.0-17.5) gm/dL Hct (39.0-53.0) % MCV (80.0-100.0) fL MCH (25.0-35.0) pg MCHC (31.0-37.0) g/dL RDW (11.5-15.5) % Plt Count (150-450) k/uL Neutrophils # (1.3-7.7) k/uL Neutrophils # (Manual) (1.3-7.7) k/uL Lymphocytes # (1.0-4.8) k/uL Lymphocytes # (Manual) (1.0-4.8) k/uL Macrocytosis PT (9.0-12.0) sec INR (<1.2) APTT (22.0-30.0) sec ABG pH 7.17 L* (7.35-7.45) ABG pCO2 33 L (35-45) mmHg ABG pO2 (83-108) mmHg ABG HCO3 12 L (21-25) mmol/L ABG Total CO2 13 L (19-24) mmol/L ABG O2 Saturation (94-97) % Chloride 119 H (98-107) mmol/L Carbon Dioxide 13 L (22-30) mmol/L BUN 25 H (9-20) mg/dL Creatinine 2.81 H (0.66-1.25) mg/dL Glucose 201 H (74-99) mg/dL POC Glucose (mg/dL) (75-99) mg/dL Plasma Lactic Acid Fred (0.7-2.0) mmol/L Calcium 5.8 L* (8.4-10.2) mg/dL Ionized Calcium Cornelius 4.2 L (4.5-5.3) mg/dL Magnesium 1.3 L (1.6-2.3) mg/dL Total Bilirubin 2.3 H (0.2-1.3) mg/dL Conjugated Bilirubin 1.1 H (0.0-0.3) mg/dL Delta Bilirubin 0.6 H (0.0-0.2) mg/dL AST 2432 H (17-59) U/L ALT 650 H (4-49) U/L Alkaline Phosphatase 186 H (38-126) U/L Total Protein 3.7 L (6.3-8.2) g/dL Albumin 1.4 L (3.5-5.0) g/dL Crossmatch 10/28/19 10/28/19 10/28/19 Range/Units 06:05 06:21 08:43 WBC (3.8-10.6) k/uL RBC (4.30-5.90) m/uL Hgb (13.0-17.5) gm/dL Hct (39.0-53.0) % MCV (80.0-100.0) fL MCH (25.0-35.0) pg MCHC (31.0-37.0) g/dL RDW (11.5-15.5) % Plt Count (150-450) k/uL Neutrophils # (1.3-7.7) k/uL Neutrophils # (Manual) (1.3-7.7) k/uL Lymphocytes # (1.0-4.8) k/uL Lymphocytes # (Manual) (1.0-4.8) k/uL Macrocytosis PT (9.0-12.0) sec INR (<1.2) APTT (22.0-30.0) sec ABG pH 7.28 L (7.35-7.45) ABG pCO2 34 L (35-45) mmHg ABG pO2 (83-108) mmHg ABG HCO3 16 L (21-25) mmol/L ABG Total CO2 17 L (19-24) mmol/L ABG O2 Saturation 97.3 H (94-97) % Chloride (98-107) mmol/L Carbon Dioxide (22-30) mmol/L BUN (9-20) mg/dL Creatinine (0.66-1.25) mg/dL Glucose (74-99) mg/dL POC Glucose (mg/dL) 232 H (75-99) mg/dL Plasma Lactic Acid Fred 4.2 H* (0.7-2.0) mmol/L Calcium (8.4-10.2) mg/dL Ionized Calcium Cornelius (4.5-5.3) mg/dL Magnesium (1.6-2.3) mg/dL Total Bilirubin (0.2-1.3) mg/dL Conjugated Bilirubin (0.0-0.3) mg/dL Delta Bilirubin (0.0-0.2) mg/dL AST (17-59) U/L ALT (4-49) U/L Alkaline Phosphatase (38-126) U/L Total Protein (6.3-8.2) g/dL Albumin (3.5-5.0) g/dL Crossmatch 10/28/19 10/28/19 Range/Units 09:42 11:30 WBC (3.8-10.6) k/uL RBC (4.30-5.90) m/uL Hgb (13.0-17.5) gm/dL Hct (39.0-53.0) % MCV (80.0-100.0) fL MCH (25.0-35.0) pg MCHC (31.0-37.0) g/dL RDW (11.5-15.5) % Plt Count (150-450) k/uL Neutrophils # (1.3-7.7) k/uL Neutrophils # (Manual) (1.3-7.7) k/uL Lymphocytes # (1.0-4.8) k/uL Lymphocytes # (Manual) (1.0-4.8) k/uL Macrocytosis PT (9.0-12.0) sec INR (<1.2) APTT (22.0-30.0) sec ABG pH (7.35-7.45) ABG pCO2 (35-45) mmHg ABG pO2 (83-108) mmHg ABG HCO3 (21-25) mmol/L ABG Total CO2 (19-24) mmol/L ABG O2 Saturation (94-97) % Chloride (98-107) mmol/L Carbon Dioxide (22-30) mmol/L BUN (9-20) mg/dL Creatinine (0.66-1.25) mg/dL Glucose (74-99) mg/dL POC Glucose (mg/dL) 130 H (75-99) mg/dL Plasma Lactic Acid Fred 4.3 H* (0.7-2.0) mmol/L Calcium (8.4-10.2) mg/dL Ionized Calcium Cornelius (4.5-5.3) mg/dL Magnesium (1.6-2.3) mg/dL Total Bilirubin (0.2-1.3) mg/dL Conjugated Bilirubin (0.0-0.3) mg/dL Delta Bilirubin (0.0-0.2) mg/dL AST (17-59) U/L ALT (4-49) U/L Alkaline Phosphatase (38-126) U/L Total Protein (6.3-8.2) g/dL Albumin (3.5-5.0) g/dL Crossmatch Microbiology - Last 24 Hours (Table) 10/27/19 10:38 Blood Culture - Preliminary Blood No Growth after 24 hours 10/27/19 09:12 Gram Stain - Preliminary Sputum Sputum Culture - Preliminary Assessment and Plan (1) Elevated liver enzymes Narrative/Plan: 69-year-old male with a known history of alcoholism and alcoholic liver disease previously seen for anemia in 2019 with no findings of active bleed on EGD and colonoscopy who presented due to respiratory distress, altered mental status sub sequently undergoing CPR for a cardiopulmonary arrest. He is seen in the ICU where he was noted to have marked elevation in his liver enzymes predominantly in a hepatocellular pattern with total bilirubin 2.3, alkaline phosphatase 186, AST 2432 and ALT 650. It is felt that elevation in liver enzymes is likely secondary to ischemia and shock liver. If the viral hepatitis panel is pending. Liver enzymes have profound to trend down. We'll to monitor and consider full liver serologies if liver enzymes remain persistently elevated. Suspicion is that patient has a degree of underlying liver fibrosis or possibly cirrhosis in the setting of alcohol abuse. Current Visit: Yes Status: Acute Code(s): R74.8 - ABNORMAL LEVELS OF OTHER SERUM ENZYMES SNOMED Code(s): 630513174 (2) Alcoholic liver disease Current Visit: Yes Status: Acute Code(s): K70.9 - ALCOHOLIC LIVER DISEASE, UNSPECIFIED SNOMED Code(s): 06847866 Plan: Supportive care Nothing by mouth Okay to initiate tube feeds Continue to monitor CBC, BMP, LFTs Acute viral hepatitis panel ordered Computed tomography scan of the liver with findings of chronic pancreatitis, thickened sigmoid and fatty filtration of the liver Continue ICU management Thank you for allowing us to participate in the care of the patient
[2019-10-29] MEDS: ENOXAPARIN 30 MG/0.3 ML SYRINGE SQ SCH (08:40)
[2019-10-29] MEDS: PANTOPRAZOLE 40 MG/10 ML VIAL IVP SCH (08:40)
[2019-10-29] MEDS: CHLORHEXIDINE GLUCONATE 15 ML CUP MUCOUS MEM SCH ×2 (08:40→20:42)
[2019-10-29] MEDS ORDERED: POTASSIUM BICARBONATE/CIT AC 20 MEQ TABLET.EFF NG-TUBE SCH ×2 (09:00→12:00)
[2019-10-29] MEDS: MAGNESIUM SULFATE-D5W PMX 1 GM in DEXTROSE/WATER 1 100ML.BAG IVPB SCH ×2 (09:08→10:17)
[2019-10-29] MEDS: SODIUM CHLORIDE 0.9% 1,000 ML IV SCH (09:09)
--- NOTE | 2019-10-29 09:22 | PN ---
PROGRESS NOTE PULMONARY/CRITICAL CARE PROGRESS NOTE: DATE OF SERVICE: 10/29/2019 CRITICAL CARE TIME: 33 minutes This is a 69-year-old male who was admitted on October 26. He was apparently found to be in cardiac arrest. He had a respiratory arrest as well, which required intubation and mechanical ventilation. He had apparently 20 minutes of down time and was intubated on 10/26 when he was found. He was seen by my partner yesterday in consultation. He had CPR for about 20 minutes and eventual return of spontaneous circulation. He has received 2 units of PRBCs since he has been here. He remains on the mechanical ventilator. He has been weaned off of propofol. He is on the volume assist-control mode, rate of 16, tidal volume of 400, FiO2 of 40%, PEEP of 5. Blood gases show a pO2 of 98, pCO2 of 43 and a pH of 7.33. Patient is getting 3 amps of bicarb and D5W at 75 mL an hour, Levophed is 6.5 mcg/minute and Vital high-protein at 20 with a goal of 44 mL an hour. Currently, otherwise doing well. His norepinephrine dose yesterday was 36 mcg/minute. Current vital signs are reviewed. Temperature is 96.8, heart rate 75, respiratory rate 16, blood pressure 99/49 and saturations are 95%. Appears in no acute distress. HEENT: Examination is grossly unremarkable. He has an orally placed endotracheal tube and NG tube. NECK: Supple. Full range of motion. Neck veins are flat. CARDIOVASCULAR: Examination reveals regular rhythm and rate. Heart sounds are distant. Heart rate 75 beats per minute. LUNGS: Reveal coarse bilateral rhonchi. Breath sounds equal. There are no wheezes. No crackles. ABDOMEN: Soft, bowel sounds are heard. EXTREMITIES: Intact. No edema. SKIN: Without rash. NEUROLOGIC: Examination cannot be adequately assessed. CURRENT LAB DATA: Reviewed. Blood gases have been noted. I do not see a CBC or comprehensive metabolic profile. Microbiology is currently negative. Chest x-ray shows bibasilar opacities. Medications are reviewed. ASSESSMENT: 1. [id number] cardiopulmonary arrest with cardiopulmonary resuscitation and eventual return of spontaneous circulation after 20 minutes. 2. Hypoxemic respiratory failure with intubation and mechanical ventilation on October 26. 3. Acute hypotension with possible underlying sepsis, requiring norepinephrine which has been weaned. 4. Hypertensive hepatopathy. 5. Acute on chronic renal failure. 6. Coagulopathy secondary to shock liver. 7. History of chronic pancreatitis. 8. History of chronic alcohol abuse. 9. History of chronic anemia. 10.Prior history of ventilator-dependent respiratory failure secondary to methicillin- resistant sensitive Staph aureus pneumonia. 11.Chronic dysphagia secondary to vocal cord injury with previous PEG tube placement. 12.Prior history of GI bleed. 13.History of cerebral atrophy and chronic small-vessel disease. 14.General medical debility. PLAN: I do not see a CBC or comprehensive metabolic profile on the patient. Norepinephrine dose has been weaned down significantly. The patient remains on the bicarb drip. Will continue to follow. The patient's tube feeds should be increased to goal. No additional recommendations are made. Will continue to follow. Medications are reviewed. MMAMANUELL / IJN: [id number] /
[2019-10-29 09:31] LABS: Platelet Count 25 k/uL (150-450)
[2019-10-29] MEDS: LACTULOSE 20 GM/30 ML CUP PO SCH ×2 (10:00→16:47)
[2019-10-29] MEDS ORDERED: FUROSEMIDE 10 MG/ML 4 ML VIAL IV STA (10:27)
[2019-10-29] MEDS ORDERED: ALBUMIN HUMAN 25% 50 ML in EMPTY BAG 1 BAG IVPB ONE (10:30)
--- NOTE | 2019-10-29 11:39 | ECHOF ---
Referral Reason:LV function MEASUREMENTS -------- HEIGHT: 175.3 cm WEIGHT: 65.3 kg BP: 110/58 RVIDd: 3.1 cm (< 3.3) IVSd: 1.4 cm (0.6 - 1.1) LVIDd: 3.6 cm (3.9 - 5.3) LVPWd: 1.4 cm (0.6 - 1.1) IVSs: 1.8 cm LVIDs: 2.8 cm LVPWs: 1.9 cm LA Diam: 3.0 cm (2.7 - 3.8) LAESV Index (A-L): 16.94 ml/m Ao Diam: 3.4 cm (2.0 - 3.7) AV Cusp: 2.0 cm (1.5 - 2.6) MV EXCURSION: 15.279 mm (> 18.000) MV EF SLOPE: 43 mm/s (70 - 150) EPSS: 0.5 cm MV E Juan Antonio: 0.69 m/s MV DecT: 239 ms MV A Juan Antonio: 0.94 m/s MV E/A Ratio: 0.74 AR PHT: 536 ms RAP: 5.00 mmHg RVSP: 23.84 mmHg FINDINGS -------- Sinus rhythm. This was a technically good study. The left ventricular size is normal. There is moderate concentric left ventricular hypertrophy. O verall left ventricular systolic function is normal with, an EF between 55 - 60 %. The right ventricle is normal in size. Normal LA size by volume 22+/-6 ml/m2. The right atrium is normal in size. Lipomatous Hypertrophy of the atrial septum is present Aortic valve is trileaflet and is mildly thickened. There is mild aortic regurgitation. The mitral valve is normal. Mild tricuspid regurgitation present. Right ventricular systolic pressure is normal at < 35 mmHg. The pulmonic valve was not well visualized. The aortic root size is normal. Normal inferior vena cava with normal inspiratory collapse consistent with estimated right atrial pre ssure of 5 mmHg. There is no pericardial effusion. CONCLUSIONS -------- 1. The left ventricular size is normal. 2. There is moderate concentric left ventricular hypertrophy. 3. Lipomatous Hypertrophy of the atrial septum is present 4. Aortic valve is trileaflet and is mildly thickened. 5. There is mild aortic regurgitation. 6. There is no pericardial effusion. TRANSPORTATION TECHNICIAN: MARGARETTE Luna
[2019-10-29 12:02] LABS: Glucose,Whole Blood 164 mg/dL (75-99)
[2019-10-29 15:28] LABS: Hepatitis A Antibody IgM Non-Reactive (Non-Reactive); Hepatitis B Core IgM Non-Reactive (Non-Reactive); Hepatitis B Surface Antigen Non-Reactive (Non-Reactive); Hepatitis C IgG Antibody Non-Reactive (Non-Reactive)
--- NOTE | 2019-10-29 16:36 | PN ---
PROGRESS NOTE FOLLOW-UP NOTE: Twin is a 69-year-old gentleman who is admitted to hospital with acute cardiopulmonary arrest. He is off sedation and actually responding to his name. An echocardiogram showed normal LV function and he did not have any evidence of myocardial infarction. He was anemic, and creatinine is 2.96. On exam, he is intubated oxygen saturation is 94%, mechanically ventilated. Chest exam reveals good air entry bilaterally. Heart exam reveals first and second heart sounds. No gallop. Abdomen is soft. Examination of extremities did not reveal any edema. Peripheral pulses are felt. ASSESSMENT: Status post cardiac arrest. PLAN: Patient will continue with current supportive care. MMODL / IJN: [id number] /
[2019-10-29] MEDS ORDERED: VANCOMYCIN IV PER PHARMACY 1 EACH MISC MISCELLANE PRN ×2 (16:44→16:49)
[2019-10-29] MEDS: POTASSIUM BICARBONATE/CIT AC 20 MEQ TABLET.EFF NG-TUBE SCH ×2 (16:54→18:31)
[2019-10-29] MEDS ORDERED: VANCOMYCIN 1,250 MG in SODIUM CHLORIDE 0.9% 250 ML IVPB ONE (17:00)
[2019-10-29 17:59] LABS: Glucose,Whole Blood 122 mg/dL (75-99)
--- NOTE | 2019-10-29 20:20 | P.PN ---
Subjective Progress Note Date: 10/29/19 Patient is intubated. Much more alert and awake. Patient is following some directions, making eye contact better than yesterday. Objective - Vital Signs Vital signs: Vital Signs Temp 98.8 F 10/29/19 20:00 Pulse 78 10/29/19 20:00 Resp 16 10/29/19 20:00 BP 96/58 10/29/19 00:00 Pulse Ox 94 L 10/29/19 20:00 Intake & Output 10/29/19 10/29/19 10/30/19 06:59 18:59 06:59 Intake Total 7390.130 5224.907 524 Output Total 243 256 56 Balance 0464.733 8186.907 468 Weight 68 kg Intake: IV 1239 936 406 Albumin Human 25% 50 ml 50 In Empty Bag 1 bag @ 50 mls/hr IVPB ONCE ONE Rx#: [id number] Dextrose 5% in Water 1, 900 225 000 ml @ 75 mls/hr IV . [id number] ANTHONY with Sodium Bicarb (1 Meq/ml) 150 ml Rx#:[id number] Piperacillin-Tazobactam 3 100 100 .375 gm In Sodium Chloride 0.9% 100 ml @ 25 mls/hr IVPB Q8H [facility] Rx#: [id number] Potassium Chloride 20 meq 200 In Water For Injection 1 100ml.bag @ 50 mls/hr IVPB Q2H [facility] Rx#: [id number] Pressure Bag 0.9 39 36 6 Sodium Chloride 0.9% 1, 525 150 000 ml @ 75 mls/hr IV . [id number] [facility] Rx#:[id number] Vancomycin 1,250 mg In 250 Sodium Chloride 0.9% 250 ml @ 125 mls/hr IVPB ONCE ONE Rx#:[id number] Intake, IV Titration 57.350 23.907 Amount Norepinephrine 32 mg In 57.350 23.907 Sodium Chloride 0.9% 218 ml @ 0.05 MCG/KG/MIN 1. 378 mls/hr IV .Q24H [facility] Rx#:[id number] Tube Feeding 210 416 88 Other 90 180 30 Output: Urine 243 256 56 Other: Voiding Method Indwelling Catheter Indwelling Catheter # Bowel Movements 1 1 ABP, PAP, CO, CI - Last Documented Arterial Blood Pressure 117/44 - Exam Patient's pupils are round and reacting. Visual yi could not be tested. Patient is intubated. Patient makes eye contact, follows some commands. Patient has slightly better fitting room operator on the right as compared to left. Still generalized weak. Very minimally wiggled toes. - Labs CBC & Chem 7: 10/29/19 07:07 10/29/19 19:40 Labs: Abnormal Lab Results - Last 24 Hours (Table) 10/28/19 10/29/19 10/29/19 Range/Units 19:56 00:08 05:45 WBC (3.8-10.6) k/uL RBC (4.30-5.90) m/uL Hgb (13.0-17.5) gm/dL Hct (39.0-53.0) % MCV (80.0-100.0) fL RDW (11.5-15.5) % Plt Count (150-450) k/uL PT (9.0-12.0) sec INR (<1.2) ABG pH 7.33 L (7.35-7.45) ABG O2 Saturation 97.2 H (94-97) % Potassium 3.3 L (3.5-5.1) mmol/L Chloride (98-107) mmol/L BUN (9-20) mg/dL Creatinine (0.66-1.25) mg/dL Glucose (74-99) mg/dL POC Glucose (mg/dL) 157 H (75-99) mg/dL Calcium (8.4-10.2) mg/dL Total Bilirubin (0.2-1.3) mg/dL AST (17-59) U/L ALT (4-49) U/L Alkaline Phosphatase (38-126) U/L Ammonia (<30) umol/L Total Protein (6.3-8.2) g/dL Albumin (3.5-5.0) g/dL 10/29/19 10/29/19 10/29/19 Range/Units 06:40 07:07 07:07 WBC (3.8-10.6) k/uL RBC (4.30-5.90) m/uL Hgb (13.0-17.5) gm/dL Hct (39.0-53.0) % MCV (80.0-100.0) fL RDW (11.5-15.5) % Plt Count (150-450) k/uL PT 18.1 H (9.0-12.0) sec INR 1.8 H (<1.2) ABG pH (7.35-7.45) ABG O2 Saturation (94-97) % Potassium (3.5-5.1) mmol/L Chloride 114 H (98-107) mmol/L BUN 27 H (9-20) mg/dL Creatinine 2.96 H (0.66-1.25) mg/dL Glucose 135 H (74-99) mg/dL POC Glucose (mg/dL) 141 H (75-99) mg/dL Calcium 6.0 L* (8.4-10.2) mg/dL Total Bilirubin 2.8 H (0.2-1.3) mg/dL AST 302 H (17-59) U/L ALT 318 H (4-49) U/L Alkaline Phosphatase 139 H (38-126) U/L Ammonia (<30) umol/L Total Protein 3.3 L (6.3-8.2) g/dL Albumin 1.2 L (3.5-5.0) g/dL 10/29/19 10/29/19 10/29/19 Range/Units 07:07 07:07 12:00 WBC 13.5 H (3.8-10.6) k/uL RBC 3.27 L (4.30-5.90) m/uL Hgb 10.9 L (13.0-17.5) gm/dL Hct 33.7 L (39.0-53.0) % MCV 103.0 H (80.0-100.0) fL RDW 18.0 H (11.5-15.5) % Plt Count 25 L (150-450) k/uL PT (9.0-12.0) sec INR (<1.2) ABG pH (7.35-7.45) ABG O2 Saturation (94-97) % Potassium (3.5-5.1) mmol/L Chloride (98-107) mmol/L BUN (9-20) mg/dL Creatinine (0.66-1.25) mg/dL Glucose (74-99) mg/dL POC Glucose (mg/dL) 164 H (75-99) mg/dL Calcium (8.4-10.2) mg/dL Total Bilirubin (0.2-1.3) mg/dL AST (17-59) U/L ALT (4-49) U/L Alkaline Phosphatase (38-126) U/L Ammonia 79 H (<30) umol/L Total Protein (6.3-8.2) g/dL Albumin (3.5-5.0) g/dL 10/29/19 10/29/19 Range/Units 15:35 17:57 WBC (3.8-10.6) k/uL RBC (4.30-5.90) m/uL Hgb (13.0-17.5) gm/dL Hct (39.0-53.0) % MCV (80.0-100.0) fL RDW (11.5-15.5) % Plt Count (150-450) k/uL PT (9.0-12.0) sec INR (<1.2) ABG pH (7.35-7.45) ABG O2 Saturation (94-97) % Potassium 3.4 L (3.5-5.1) mmol/L Chloride (98-107) mmol/L BUN (9-20) mg/dL Creatinine (0.66-1.25) mg/dL Glucose (74-99) mg/dL POC Glucose (mg/dL) 122 H (75-99) mg/dL Calcium (8.4-10.2) mg/dL Total Bilirubin (0.2-1.3) mg/dL AST (17-59) U/L ALT (4-49) U/L Alkaline Phosphatase (38-126) U/L Ammonia (<30) umol/L Total Protein (6.3-8.2) g/dL Albumin (3.5-5.0) g/dL Microbiology - Last 24 Hours (Table) 10/28/19 08:46 Urine Culture - Final Urine,Catheterized 10/27/19 10:38 Blood Culture - Preliminary Blood No Growth after 48 hours 10/27/19 09:12 Gram Stain - Preliminary Sputum Sputum Culture - Preliminary Presumptive Staph aureus Assessment and Plan Assessment: * 69-year-old male with witnessed cardiac arrest with downtime of around 12 minutes. Patient's mentation and level of response improving. * Ventilator-dependent respiratory failure on mechanical ventilation. * Shock liver due to above. * Acute on chronic renal failure. * Coagulopathy, leukocytosis * History of alcoholism. Plan: * Patient at present is showing meaningful response, which favors relatively g ood prognosis. Patient's examination slightly better than yesterday. Better response, more alert. More interactive. * We will continue with serial neurological examination. * Patient's EEG showed generalized cerebral dysfunction as can be seen with toxic metabolic encephalopathy or diffuse structural brain abnormality. Presence of triphasic waves suggest hepatic encephalopathy. * Patient ammonia is 79, consistent with hepatic encephalopathy. Treatment of hepatic encephalopathy as per IM. * B12 is 1200, but methylmalonic acid is 0.73 also elevated. RBC folate is normal. * Patient also has multiple medical issues, for which IM/critical care on the case.
--- NOTE | 2019-10-29 22:10 | P.PN ---
Progress Note - Text Progress Note Date: 10/29/19 Presenting complaint: Short of breath Interval history: From the records: This is a 69 years old male With multiple medical problems as below. Patient is intubated and unresponsive and could not provide information so it was obtained from staff and medical records, no family at bedside. Patient Presents because the neighbors called 911/AMS 4 patient was dyspneic, and brought to the hospital patient became unresponsive with PEA in ambulance, CPR was in associated, he got 3 samples of epinephrine in the ambulance and 1 other dose of epinephrine in the hospital. His CPR downtown was about 20 minutes Patient also hypoglycemic and hypothermic and hypotensive , blood glucose was 20 h glucose D 50% with partial correction and was placed on D10% effusion, however his sugar jumped to 800 so D10%was stopped and currently glucose in around 300. He was placed on Jarad hugger and Currently he is on Levophed at 0.57 which is high dose showing leukocytosis of 12.9 and 19.7 K, hemoglobin 6.6 corrected to 9.2 after blood transfusion, platelets 46 and 50 5K. INR 4.5 and 3.9. PH was 6.9 and 7. 2. Creatinine 2.6 which are unknown baseline. Lactic acid 8.0 7.0. Elevated liver enzymes with AST 3652 and ALT 472 . Troponin is negative Hemoglobin was 6 and INR was 4 and he got 1 dose of vitamin K and 2 units of blood transfusion Patient got Zithromax and ceftriaxone in the emergency room, patient continued on Zosyn, Gvpro-GAV-cuocnpvpe. FiO2 40% and a PEEP of 5. Patient was on CPAP today for 2 hours. Remains off sedation. Following simple commands. 2 feeding at goal at 44 mL an hour. Telemetry shows sinus rhythm. Remains edematous. Review of systems: Patient intubated Active Medications Chlorhexidine Gluconate (Peridex) 15 ml MUCOUS MEM BID [facility] Last Admin: 10/29/19 20:42 Dose: 15 ml Documented by: Enoxaparin Sodium (Lovenox) 30 mg SQ DAILY [facility] Last Admin: 10/29/19 08:40 Dose: 30 mg Documented by: Hydromorphone HCl (Dilaudid) 0.5 mg IVP Q3HR PRN PRN Reason: Pain Last Admin: 10/29/19 01:54 Dose: 0.5 mg Documented by: Hydromorphone HCl (Dilaudid) 1 mg IVP Q4HR PRN PRN Reason: Pain Propofol 1,000 mg/ IV Solution 100 mls @ 0 mls/hr IV .Q0M [facility]; Protocol Last Titration: 10/28/19 08:36 Dose: 0 mcg/kg/min, 0 mls/hr Documented by: Piperacillin Sod/Tazobactam (Sod 3.375 gm/ Sodium Chloride) 100 mls @ 25 mls/hr IVPB Q8H [facility] Last Admin: 10/29/19 16:55 Dose: 25 mls/hr Documented by: Norepinephrine Bitartrate 32 (mg/ Sodium Chloride) 250 mls @ 1.378 mls/hr IV .Q24H [facility]; Protocol Last Titration: 10/29/19 14:36 Dose: 0.02 mcg/kg/min, 0.551 mls/hr Documented by: Sodium Chloride (Saline 0.9%) 1,000 mls @ 75 mls/hr IV .[id number] [facility] Last Admin: 10/29/19 09:09 Dose: 75 mls/hr Documented by: Vancomycin HCl 1,250 mg/ (Sodium Chloride) 250 mls @ 125 mls/hr IVPB ONCE ONE Stop: 10/30/19 11:59 Lactulose (Cephulac) 30 gm PO TID [facility] Last Admin: 10/29/19 16:47 Dose: Not Given Documented by: Miscellaneous Information (Potassium Per Protocol) 1 each MISCELLANE DAILY PRN; Protocol PRN Reason: Per Protocol Miscellaneous Information (Magnesium Per Protocol) 1 each MISCELLANE DAILY PRN; Protocol PRN Reason: Per Protocol Miscellaneous Information (Pharmacy To Dose Iv Vancomycin) 1 each MISCELLANE DIRECTED PRN; Protocol PRN Reason: Per Protocol Naloxone HCl (Narcan) 0.2 mg IV Q2M PRN PRN Reason: Opioid Reversal Pantoprazole Sodium (Protonix) 40 mg IVP DAILY [facility] Last Admin: 10/29/19 08:40 Dose: 40 mg Documented by: On examination: VITAL SIGNS: 98.8, 78, 16, 117/44, 94% on the ventilator GENERAL APPEARANCE: Laying in bed, intubated, arousable HEENT: Normal external appearance of nose and ear. Oral cavity-endotracheal tube EYES: Pupils equal. Conjunctiva pale. NECK: JVD not raised. Mass not palpable. RESPIRATORY: Respiratory effort increased, decreased breath sounds,. CARDIOVASCULAR: First and second sounds normal. Significant edema ABDOMEN: Soft. Liver and spleen not palpable. No tenderness. No mass palpable. PEG tube site appearance clean. Significant scrotal edema DERMATOLOGICAL: Stage II decubital but [place] [facility]: Unable to assess INVESTIGATIONS, reviewed in the clinical context: White count 13.5 hemoglobin 10.9 platelets 25 progression 3.7 bun 27 creatinine 2.96 calcium 6 AST 302 ALT 318 albumin 1.2 Previous testing Chest [id number] infiltrate Computed tomography scan of the chest-bibasilar airspace disease, emphysema changes, chronic calcific pancreatitis, Computed tomography scan of the brain-old lacunar infarct in the jung radiata on the right, chronic changes Assessment: -Status post cardiac arrest witnessed the downtime of about 12 minutes. -Chronic kidney disease stage III from nephrosclerosis -Moderate protein calorie malnutrition -Chronic medical debility does use a wheelchair -Chronic esophagitis -Chronic dysphagia -Ischemic hepatitis from hypotension -Hypocalcemia -Aspiration pneumonia due to altered mental status -Chronic pancreatitis -Combination of metabolic and respiratory acidosis. -acute hypoxic respiratory failure, on ventilator -slow to respond -Hypertensive and/or septic shock requiring pressor support -Significant edema due to tote spacing from severe hypoalbuminemia -Stage II decubitus ulcer Plan: -Patient off sedation. Getting 2 feeding. Remains on IV vancomycin and Zosyn. Prognosis guarded.
[2019-10-29 23:55] LABS: Glucose,Whole Blood 132 mg/dL (75-99)
[2019-10-30] MEDS: PIPERACILLIN-TAZOBACTAM 3.375 GM in SODIUM CHLORIDE 0.9% 100 ML IVPB SCH (00:59)
[2019-10-30] MEDS: LACTULOSE 20 GM/30 ML CUP PO SCH ×4 (01:00→21:14)
[2019-10-30] MEDS: SODIUM CHLORIDE 0.9% 1,000 ML IV SCH ×2 (01:01→12:09)
[2019-10-30] MEDS: HYDROmorphone 0.5 MG/0.5 ML SYRINGE IVP PRN (04:33)
[2019-10-30 05:00] LABS: Anisocytosis Slight; HCT 31.5 % (39.0-53.0); HGB 10.6 gm/dL (13.0-17.5); MCH 34.3 pg (25.0-35.0); MCHC 33.6 g/dL (31.0-37.0); MCV 101.9 fL (80.0-100.0); Macrocytosis Moderate; Mean Platelet Volume 12.5; Platelet Count 23 k/uL (150-450); RBC 3.09 m/uL (4.30-5.90); RDW 17.8 % (11.5-15.5); WBC 10.5 k/uL (3.8-10.6)
[2019-10-30 05:02] LABS: Albumin 1.4 g/dL (3.5-5.0); Calcium 6.6 mg/dL (8.4-10.2); Magnesium 2.3 mg/dL (1.6-2.3); Potassium 3.3 mmol/L (3.5-5.1); Total Bilirubin 3.9 mg/dL (0.2-1.3); Total Protein 3.5 g/dL (6.3-8.2)
[2019-10-30 05:55] LABS: Glucose,Whole Blood 129 mg/dL (75-99)
[2019-10-30] MEDS: POTASSIUM BICARBONATE/CIT AC 20 MEQ TABLET.EFF NG-TUBE SCH ×4 (05:58→13:13)
[2019-10-30] MEDS ORDERED: IPRATROPIUM-ALBUTEROL 3 ML NEB INHALATION PRN (08:16)
[2019-10-30] MEDS: NOREPINEPHRINE 32 MG in SODIUM CHLORIDE 0.9% 218 ML IV SCH (09:10)
[2019-10-30] MEDS: ENOXAPARIN 30 MG/0.3 ML SYRINGE SQ SCH (09:32)
[2019-10-30] MEDS: CHLORHEXIDINE GLUCONATE 15 ML CUP MUCOUS MEM SCH ×2 (09:32→20:22)
[2019-10-30] MEDS: PANTOPRAZOLE 40 MG/10 ML VIAL IVP SCH (09:32)
[2019-10-30] MEDS ORDERED: VANCOMYCIN 1,250 MG in SODIUM CHLORIDE 0.9% 250 ML IVPB ONE (10:00)
--- NOTE | 2019-10-30 10:14 | P.PN ---
Subjective Progress Note Date: 10/30/19 Principal diagnosis: Cardiac arrest, acute respiratory failure This is a 69-year-old gentleman who follows with Dr. Smith as his primary care provider. He has a history of hypertension, alcoholism, previous history of staphylococcal pneumonia and respiratory failure requiring intubation and mechanical ventilation, dysphagia with previous PEG tube placement, chronic kidney disease, hypothyroidism, chronic pancreatitis, previous GI bleed, recurrent UTIs, ERCPs. He is residing at home. His neighbor was checking on him earlier this morning and found him to be having difficulty in breathing. EMS was called. Upon arrival patient was arousable. They put him in the back and the implants and then he lost pulses and was found to be an PEA. CPR was performed for 20 minutes prior to arriving to the hospital. He had received 3 rounds of epinephrine and was tubed in the field. He arrived pulseless. CPR continued and there was return of spontaneous circulation. According to EMS there is no family for this patient. He was subsequently transferred to the intensive care unit he was seen immediately upon arrival. He is intubated on mechanical ventilator with settings of assist control of 20, tidal volume 400, FiO2 50% and a PEEP of 5. Arterial blood gases on 50% FiO2 were 1 PaO2 of 121. PCO2 34. PH 7.24. He has received 3 L of fluid resuscitation. 2 A of bicarb were given. He is sedated on propofol at 30 mcg/kg/m. He is requiring norepinephrine at 0.55 mcg/kg/m. He received 1 dose of Zosyn. Right IJ catheter in place. Left femoral arterial line inserted. Scant urine output. White count 19.7. Hemoglobin 9.2. INR 3.9. Sodium 139. Potassium 3.5. Chloride 114. Bicarb 14. Creatinine 2.66. Lactic acid 8.3. ALT 472. AST 2522. Troponin negative 1. Glucose 380. Computed tomography scan of the brain revealed no acute intracranial abnormality. Old lacunar infarct in the jung radiata on the right. Atrophic change. Chronic white matter ischemic change. Computed tomography scan of the chest abdomen and pelvis revealed small bilateral effusions. Bibasilar airspace disease. Emphysematous changes with associated ground glass opacity may represent ongoing alveolitis. Mild pericardial fluid or thickening. Fatty infiltration of the liver. Evidence of chronic calcific pancreatitis. Thickening of the wall of the sigmoid colon. Possible colitis. Degenerative changes of the spine. On 10/30/2019 patient seen in follow-up in the intensive care unit, patient remains intubated on mechanical ventilator, current vent settings are assist- control with a rate of 16, tidal volume is 400, FiO2 is 40% and PEEP of 5, this morning his blood gases reveal pO2 of 82, pCO2 36, and pH of 7.39. Patient's sedation is currently on hold, he is on 0.9 normal saline at a rate of 75 ML per hour, Levaquin fatty is at 2 mics per minute. He is receiving tube feedings with vital high protein at a rate of 44 with a goal of 44 and standard water flushes. Yesterday we discontinued patient's Diprivan, patient is awake, and following simple commands, he is extremely weak he is not able to squeeze hands on command but he is nodding his head appropriately to verbal questioning. He denies any acute distress. Patient's sputum culture came back positive for presumptive staph aureus, and patient was started on vancomycin, he is also on Zosyn which we can discontinue. He has been afebrile. Patient has developed severe anasarca, pitting edema upper lower extremities, abdominal wall, and severe scrotal edema. History we gave the patient on dose of 25% albumin 25 g and followed it with 40 mg of IV Lasix. Patient has produced 632 mL in urine output in the last 24 hours and he still 2.8 L positive. His albumin on today's CMP is only 1.4, patient has chronic liver disease related to his history of alcoholism, other blood work has been reviewed showing white blood cell count of 10.5, hemoglobin of 10.6, sodium is 141, potassium is 3.3, chloride is 114, B1 of 27 and creatinine of 3.2. His renal profile continues to worsen. Liver enzymes are improving, AST down to 86, ALT is 188, and alkaline phosphatase is 153. His ammonia level is 95, patient is having diarrhea however he is getting lactulose 30 Musa 3 times daily. FMS was inserted. Yesterday patient was able to tolerate on pressure-support trial with a pressure support of 10 and CPAP of 5 for 2 hours. He was placed on assist-control mode of ventilation for the night. This morning we will give him another pressure-support trial. Vital signs are stable, patient is sinus mechanism with a controlled rate. Objective - Vital Signs Vital signs: Vital Signs Temp 98.1 F 10/30/19 04:00 Pulse 79 10/30/19 07:00 Resp 15 10/30/19 07:00 BP 96/55 10/30/19 04:00 Pulse Ox 95 10/30/19 07:00 Intake & Output 10/29/19 10/30/19 10/30/19 18:59 06:59 18:59 Intake Total 8083.468 7853.181 122 Output Total 256 376 25 Balance 1987.646 8244.181 97 Weight 66.5 kg Intake: IV 936 1286 78 Albumin Human 25% 50 ml 50 In Empty Bag 1 bag @ 50 mls/hr IVPB ONCE ONE Rx#: [id number] Dextrose 5% in Water 1, 225 000 ml @ 75 mls/hr IV . [id number] [facility] with Sodium Bicarb (1 Meq/ml) 150 ml Rx#:[id number] Piperacillin-Tazobactam 3 100 100 .375 gm In Sodium Chloride 0.9% 100 ml @ 25 mls/hr IVPB Q8H [facility] Rx#: [id number] Pressure Bag 0.9 36 36 3 Sodium Chloride 0.9% 1, 525 900 75 000 ml @ 75 mls/hr IV . [id number] [facility] Rx#:[id number] Vancomycin 1,250 mg In 250 Sodium Chloride 0.9% 250 ml @ 125 mls/hr IVPB ONCE ONE Rx#:[id number] Intake, IV Titration 23.907 11.181 Amount Norepinephrine 32 mg In 23.907 11.181 Sodium Chloride 0.9% 218 ml @ 0.05 MCG/KG/MIN 1. 378 mls/hr IV .Q24H [facility] Rx#:[id number] Tube Feeding 416 528 44 Other 180 90 Output: Urine 256 376 25 Other: Voiding Method Indwelling Catheter Indwelling Catheter # Bowel Movements 1 1 ABP, PAP, CO, CI - Last Documented Arterial Blood Pressure 110/50 - Exam GENERAL EXAM: Alert, 69-year-old white male, appears quite weak, but is able to nod head appropriately to questioning, is quite weak and not able to squeeze hands on command intubated, on assist-control mode of ventilation with FiO2 of 40%, comfortable in no apparent distress. Patient has generalized swelling and upper and lower extremities, and weeping from the lower extremities and small o pen areas on upper arms. Patient appears older than stated age, quite pale and chronically ill appearing HEAD: Normocephalic/atraumatic. EYES: Normal reaction of pupils, equal size. Conjunctiva pink, sclera white. NOSE: Clear with pink turbinates. THROAT: No erythema or exudates. NECK: No masses, no JVD, no thyroid enlargement, no adenopathy. CHEST: No chest wall deformity. Symmetrical expansion. LUNGS: Equal air entry with no crackles, wheeze, rhonchi or dullness. CVS: Regular rate and rhythm, normal S1 and S2, no gallops, no murmurs, no rubs ABDOMEN: Soft, nontender. No hepatosplenomegaly, normal bowel sounds, no guarding or rigidity. EXTREMITIES: No clubbing, no cyanosis, 2+ pulses and upper and lower extremities. Generalized anasarca, swelling, 2+ lower extremity edema, 1+ upper extremity edema, edema involving abdominal wall, and severe scrotal edema MUSCULOSKELETAL: Muscle strength and tone normal. SPINE: No scoliosis or deformity SKIN: No rashes CENTRAL NERVOUS SYSTEM: Alert and oriented -1. No focal deficits, tone is normal in all 4 extremities. PSYCHIATRIC: Alert and oriented -1. Appropriate affect. Intact judgment and insight. - Labs CBC & Chem 7: 10/30/19 04:45 10/30/19 04:45 Labs: Abnormal Lab Results - Last 24 Hours (Table) 10/29/19 10/29/19 10/29/19 Range/Units 12:00 15:35 17:57 RBC (4.30-5.90) m/uL Hgb (13.0-17.5) gm/dL Hct (39.0-53.0) % MCV (80.0-100.0) fL RDW (11.5-15.5) % Plt Count (150-450) k/uL Potassium 3.4 L (3.5-5.1) mmol/L Chloride (98-107) mmol/L BUN (9-20) mg/dL Creatinine (0.66-1.25) mg/dL Glucose (74-99) mg/dL POC Glucose (mg/dL) 164 H 122 H (75-99) mg/dL Calcium (8.4-10.2) mg/dL Total Bilirubin (0.2-1.3) mg/dL AST (17-59) U/L ALT (4-49) U/L Alkaline Phosphatase (38-126) U/L Ammonia (<30) umol/L Total Protein (6.3-8.2) g/dL Albumin (3.5-5.0) g/dL 10/29/19 10/30/19 10/30/19 Range/Units 23:54 04:45 04:45 RBC (4.30-5.90) m/uL Hgb (13.0-17.5) gm/dL Hct (39.0-53.0) % MCV (80.0-100.0) fL RDW (11.5-15.5) % Plt Count (150-450) k/uL Potassium 3.3 L (3.5-5.1) mmol/L Chloride 114 H (98-107) mmol/L BUN 27 H (9-20) mg/dL Creatinine 3.22 H (0.66-1.25) mg/dL Glucose 117 H (74-99) mg/dL POC Glucose (mg/dL) 132 H (75-99) mg/dL Calcium 6.6 L (8.4-10.2) mg/dL Total Bilirubin 3.9 H (0.2-1.3) mg/dL AST 86 H (17-59) U/L ALT 188 H (4-49) U/L Alkaline Phosphatase 153 H (38-126) U/L Ammonia 95 H (<30) umol/L Total Protein 3.5 L (6.3-8.2) g/dL Albumin 1.4 L (3.5-5.0) g/dL 10/30/19 10/30/19 Range/Units 04:45 05:53 RBC 3.09 L (4.30-5.90) m/uL Hgb 10.6 L (13.0-17.5) gm/dL Hct 31.5 L (39.0-53.0) % MCV 101.9 H (80.0-100.0) fL RDW 17.8 H (11.5-15.5) % Plt Count 23 L (150-450) k/uL Potassium (3.5-5.1) mmol/L Chloride (98-107) mmol/L BUN (9-20) mg/dL Creatinine (0.66-1.25) mg/dL Glucose (74-99) mg/dL POC Glucose (mg/dL) 129 H (75-99) mg/dL Calcium (8.4-10.2) mg/dL Total Bilirubin (0.2-1.3) mg/dL AST (17-59) U/L ALT (4-49) U/L Alkaline Phosphatase (38-126) U/L Ammonia (<30) umol/L Total Protein (6.3-8.2) g/dL Albumin (3.5-5.0) g/dL Microbiology - Last 24 Hours (Table) 10/28/19 08:46 Urine Culture - Preliminary Urine,Catheterized Yeast species 10/27/19 09:12 Gram Stain - Final Sputum Sputum Culture - Final Staphylococcus aureus 10/27/19 10:38 Blood Culture - Preliminary Blood No Growth after 48 hours Assessment and Plan Plan: Assessment: 1 Cardiac arrest with approximate 20 minutes of CPR, for epinephrine and subsequent return of spontaneous circulation. 2 Acute respiratory arrest secondary to above requiring intubation mechanical ventilatory support, patient was intubated on 10/27/2019, remains intubated today on 10/30/2019. Did tolerate 2 hours a pressure support trials yesterday on 10/29/2019 3 Acute hypotension with suspected septic shock requiring norepinephrine 5 Presumptive staph pneumonia, urine culture is pending, patient is covered with combination of Zosyn and vancomycin 6 shock liver secondary to above, improving 7 Acute on chronic renal failure, worsening 8 Leukocytosis, and proved 9 Coagulopathy secondary to shock liver 10 Chronic pancreatitis 11 History of alcoholism 11 Chronic normocytic anemia 12 Previous history of ventilatory dependent respiratory failure secondary to MSSA pneumonia 13 Chronic dysphagia secondary to vocal cord injury with previous PEG tube placement 14 History of previous GI bleed 15 Cerebral atrophy along with chronic small vessel ischemia 16 Poor overall functional performance based on the above-mentioned multiple comorbidities Plan: We'll send the random cortisol level, we'll start midodrine 10 mg 3 times daily, wean levo fed support, proceed with daily traction of sedation, patient is awake and his quite weak and he is unable to squeeze hands on command but he is nodding his head appropriately to verbal questioning, yesterday he tolerated 2 hours a pressure support trials, he was placed back on assist control mode for the night, today we will place him back on pressure support of 10 and CPAP of 5. Continue vancomycin, with final sputum culture, patient is afebrile, Discontinue Zosyn, continue GI and DVT prophylaxis. Continue nutritional sup port. We are told the patient has no family and will consult social work initiated process for possible public guardianship. Today's chest x-ray has been reviewed this on persistence of bibasilar infiltrates, with some improvement in the appearance of right basilar infiltrate. Overall prognosis is guarded, will continue to try to wean the patient off the ventilator support. I performed a history & physical examination of the patient and discussed their management with my nurse practitioner, Ashley Vigil. I reviewed the nurse practitioner's note and agree with the documented findings and plan of care. Lung sounds are positive for diminished breath sounds. The findings and the impression was discussed with the patient. I attest to the documentation by the nurse practitioner. Critical care time is greater than 30 minutes Time with Patient: Greater than 30
--- NOTE | 2019-10-30 10:30 | XR ---
EXAMINATION TYPE: XR chest 1V portable DATE OF EXAM: 10/30/2019 COMPARISON: Prior chest x-ray 10/29/2019, CT 10/27/2019 HISTORY: Tube placement TECHNIQUE: Single frontal view of the chest is obtained. FINDINGS: Orogastric tube is overlying appropriate position, endotracheal tube is overlying the trac heal air column. Right jugular central venous catheter shows the distal tip over the superior vena ca va. Patient is rotated. There is no evident pneumothorax. Basilar areas of increased attenuation show s a similar appearance. Heart is likely stable. Aorta is dense. There is underlying emphysema. IMPRESSION: Findings are similar to prior exam. There may be interstitial lung disease, correlate fo r pneumonia versus atelectasis, possible associated effusion, atypical congestive heart failure in a patient with pre-existing COPD.
[2019-10-30 11:47] LABS: Glucose,Whole Blood 132 mg/dL (75-99)
[2019-10-30 11:57] LABS: INR 1.7 (<1.2); Prothrombin Time 16.5 sec (9.0-12.0)
[2019-10-30] MEDS: IPRATROPIUM-ALBUTEROL 3 ML NEB INHALATION SCH ×3 (12:13→20:09)
[2019-10-30] MEDS: MIDODRINE 5 MG TAB PO SCH ×2 (12:18→16:42)
--- NOTE | 2019-10-30 12:36 | P.PN ---
Subjective Progress Note Date: 10/29/19 Objective - Vital Signs Vital signs: Vital Signs Temp 97.3 F L 10/29/19 12:00 Pulse 75 10/29/19 12:00 Resp 20 10/29/19 12:00 BP 96/58 10/29/19 00:00 Pulse Ox 95 10/29/19 12:00 Intake & Output 10/28/19 10/29/19 10/29/19 18:59 06:59 18:59 Intake Total 4326.025 2391.350 787.202 Output Total 192 243 117 Balance 5827.241 7377.350 670.202 Weight 65.6 kg 68 kg Intake: IV 1221 1239 468 Albumin Human 25% 50 ml 50 In Empty Bag 1 bag @ 50 mls/hr IVPB ONCE ONE Rx#: [id number] Calcium Gluconate 2 gm In 100 Sodium Chloride 0.9% 100 ml @ 100 mls/hr IVPB ONCE ONE Rx#:[id number] Dextrose 5% in Water 1, 825 900 225 000 ml @ 75 mls/hr IV . [id number] [facility] with Sodium Bicarb (1 Meq/ml) 150 ml Rx#:[id number] Piperacillin-Tazobactam 3 200 100 100 .375 gm In Sodium Chloride 0.9% 100 ml @ 25 mls/hr IVPB Q8H [facility] Rx#: [id number] Potassium Chloride 20 meq 200 In Water For Injection 1 100ml.bag @ 50 mls/hr IVPB Q2H [facility] Rx#: [id number] Pressure Bag 0.9 21 39 18 Sodium Chloride 0.9% 1, 75 000 ml @ 75 mls/hr IV . [id number] [facility] Rx#:[id number] Sodium Chloride 0.9% 1, 75 000 ml @ 75 mls/hr IV . [id number] [facility] Rx#:[id number] Intake, IV Titration 210.815 57.350 19.202 Amount Norepinephrine 32 mg In 196.747 57.350 19.202 Sodium Chloride 0.9% 218 ml @ 0.05 MCG/KG/MIN 1. 378 mls/hr IV .Q24H [facility] Rx#:[id number] propofoL 1,000 mg In 14.068 Empty Bag 1 bag @ Titrate IV .Q0M [facility] Rx#: [id number] Tube Feeding 20 210 180 Other 90 120 Output: Urine 192 243 117 Other: Voiding Method Indwelling Catheter Indwelling Catheter Indwelling Catheter # Bowel Movements 2 1 ABP, PAP, CO, CI - Last Documented Arterial Blood Pressure 118/51 - Labs CBC & Chem 7: 10/30/19 04:45 10/30/19 11:05 Labs: Abnormal Lab Results - Last 24 Hours (Table) 10/28/19 10/28/19 10/28/19 Range/Units 12:10 18:08 19:56 WBC (3.8-10.6) k/uL RBC (4.30-5.90) m/uL Hgb (13.0-17.5) gm/dL Hct (39.0-53.0) % MCV (80.0-100.0) fL RDW (11.5-15.5) % Plt Count (150-450) k/uL PT (9.0-12.0) sec INR (<1.2) ABG pH (7.35-7.45) ABG O2 Saturation (94-97) % Potassium 3.3 L (3.5-5.1) mmol/L Chloride (98-107) mmol/L BUN (9-20) mg/dL Creatinine (0.66-1.25) mg/dL Glucose (74-99) mg/dL POC Glucose (mg/dL) 186 H (75-99) mg/dL Calcium (8.4-10.2) mg/dL Total Bilirubin (0.2-1.3) mg/dL AST (17-59) U/L ALT (4-49) U/L Alkaline Phosphatase (38-126) U/L Ammonia (<30) umol/L Troponin I 0.037 H* (0.000-0.034) ng/mL Total Protein (6.3-8.2) g/dL Albumin (3.5-5.0) g/dL 10/29/19 10/29/19 10/29/19 Range/Units 00:08 05:45 06:40 WBC (3.8-10.6) k/uL RBC (4.30-5.90) m/uL Hgb (13.0-17.5) gm/dL Hct (39.0-53.0) % MCV (80.0-100.0) fL RDW (11.5-15.5) % Plt Count (150-450) k/uL PT (9.0-12.0) sec INR (<1.2) ABG pH 7.33 L (7.35-7.45) ABG O2 Saturation 97.2 H (94-97) % Potassium (3.5-5.1) mmol/L Chloride (98-107) mmol/L BUN (9-20) mg/dL Creatinine (0.66-1.25) mg/dL Glucose (74-99) mg/dL POC Glucose (mg/dL) 157 H 141 H (75-99) mg/dL Calcium (8.4-10.2) mg/dL Total Bilirubin (0.2-1.3) mg/dL AST (17-59) U/L ALT (4-49) U/L Alkaline Phosphatase (38-126) U/L Ammonia (<30) umol/L Troponin I (0.000-0.034) ng/mL Total Protein (6.3-8.2) g/dL Albumin (3.5-5.0) g/dL 10/29/19 10/29/19 10/29/19 Range/Units 07:07 07:07 07:07 WBC (3.8-10.6) k/uL RBC (4.30-5.90) m/uL Hgb (13.0-17.5) gm/dL Hct (39.0-53.0) % MCV (80.0-100.0) fL RDW (11.5-15.5) % Plt Count (150-450) k/uL PT 18.1 H (9.0-12.0) sec INR 1.8 H (<1.2) ABG pH (7.35-7.45) ABG O2 Saturation (94-97) % Potassium (3.5-5.1) mmol/L Chloride 114 H (98-107) mmol/L BUN 27 H (9-20) mg/dL Creatinine 2.96 H (0.66-1.25) mg/dL Glucose 135 H (74-99) mg/dL POC Glucose (mg/dL) (75-99) mg/dL Calcium 6.0 L* (8.4-10.2) mg/dL Total Bilirubin 2.8 H (0.2-1.3) mg/dL AST 302 H (17-59) U/L ALT 318 H (4-49) U/L Alkaline Phosphatase 139 H (38-126) U/L Ammonia 79 H (<30) umol/L Troponin I (0.000-0.034) ng/mL Total Protein 3.3 L (6.3-8.2) g/dL Albumin 1.2 L (3.5-5.0) g/dL 10/29/19 10/29/19 Range/Units 07:07 12:00 WBC 13.5 H (3.8-10.6) k/uL RBC 3.27 L (4.30-5.90) m/uL Hgb 10.9 L (13.0-17.5) gm/dL Hct 33.7 L (39.0-53.0) % MCV 103.0 H (80.0-100.0) fL RDW 18.0 H (11.5-15.5) % Plt Count 25 L (150-450) k/uL PT (9.0-12.0) sec INR (<1.2) ABG pH (7.35-7.45) ABG O2 Saturation (94-97) % Potassium (3.5-5.1) mmol/L Chloride (98-107) mmol/L BUN (9-20) mg/dL Creatinine (0.66-1.25) mg/dL Glucose (74-99) mg/dL POC Glucose (mg/dL) 164 H (75-99) mg/dL Calcium (8.4-10.2) mg/dL Total Bilirubin (0.2-1.3) mg/dL AST (17-59) U/L ALT (4-49) U/L Alkaline Phosphatase (38-126) U/L Ammonia (<30) umol/L Troponin I (0.000-0.034) ng/mL Total Protein (6.3-8.2) g/dL Albumin (3.5-5.0) g/dL Microbiology - Last 24 Hours (Table) 10/27/19 10:38 Blood Culture - Preliminary Blood No Growth after 48 hours 10/27/19 09:12 Gram Stain - Preliminary Sputum Sputum Culture - Preliminary Presumptive Staph aureus 10/28/19 08:46 Urine Culture - Preliminary Urine,Catheterized Assessment and Plan (1) Elevated liver enzymes Narrative/Plan: 69-year-old male with a known history of alcoholism and alcoholic liver disease previously seen for anemia in 2019 with no findings of active bleed on EGD and colonoscopy who presented due to respiratory distress, altered mental status subsequently undergoing CPR for a cardiopulmonary arrest. He is seen in the ICU where he was noted to have marked elevation in his liver enzymes predominantly in a hepatocellular pattern with total bilirubin 2.3, alkaline phosphatase 186, AST 2432 and ALT 650. It is felt that elevation in liver enzymes is likely secondary to ischemia and shock liver. If the viral hepatitis panel is pending. Liver enzymes have profound to trend down. We'll to monitor and consider full liver serologies if liver enzymes remain persistently elevated. Suspicion is that patient has a degree of underlying liver fibrosis or possibly cirrhosis in the setting of alcohol abuse. AST and ALT markedly improved with total bilirubin slightly higher consistent with resolving ischemic hepatitis. Current Visit: Yes Status: Acute Code(s): R74.8 - ABNORMAL LEVELS OF OTHER SERUM ENZYMES SNOMED Code(s): 948845039 (2) Alcoholic liver disease Current Visit: Yes Status: Acute Code(s): K70.9 - ALCOHOLIC LIVER DISEASE, UNSPECIFIED SNOMED Code(s): 53125940 Plan: Supportive care Nothing by mouth Okay for tube feeds Continue to monitor CBC, BMP, LFTs Acute viral hepatitis panel negative Computed tomography scan of the liver with findings of chronic pancreatitis, thickened sigmoid and fatty filtration of the liver Continue ICU management Thank you for allowing us to participate in the care of the patient
--- NOTE | 2019-10-30 13:49 | P.PN ---
Subjective Progress Note Date: 10/30/19 Patient is intubated. Much more alert and awake. Patient is following some directions, making eye contact better than yesterday. Patient tracking. Objective - Vital Signs Vital signs: Vital Signs Temp 98.0 F 10/30/19 12:00 Pulse 87 10/30/19 13:00 Resp 14 10/30/19 13:00 BP 110/63 10/30/19 13:00 Pulse Ox 88 L 10/30/19 13:00 Intake & Output 10/29/19 10/30/19 10/30/19 18:59 06:59 18:59 Intake Total 3246.544 2228.181 1100 Output Total 256 376 120 Balance 2146.513 6080.181 980 Weight 66.5 kg Intake: IV 936 1286 468 Albumin Human 25% 50 ml 50 In Empty Bag 1 bag @ 50 mls/hr IVPB ONCE ONE Rx#: [id number] Dextrose 5% in Water 1, 225 000 ml @ 75 mls/hr IV . [id number] [facility] with Sodium Bicarb (1 Meq/ml) 150 ml Rx#:[id number] Piperacillin-Tazobactam 3 100 100 .375 gm In Sodium Chloride 0.9% 100 ml @ 25 mls/hr IVPB Q8H [facility] Rx#: [id number] Pressure Bag 0.9 36 36 18 Sodium Chloride 0.9% 1, 525 900 450 000 ml @ 75 mls/hr IV . [id number] [facility] Rx#:[id number] Vancomycin 1,250 mg In 250 Sodium Chloride 0.9% 250 ml @ 125 mls/hr IVPB ONCE ONE Rx#:[id number] Intake, IV Titration 23.907 11.181 250 Amount Norepinephrine 32 mg In 23.907 11.181 Sodium Chloride 0.9% 218 ml @ 0.05 MCG/KG/MIN 1. 378 mls/hr IV .Q24H [facility] Rx#:[id number] Vancomycin 1,250 mg In 250 Sodium Chloride 0.9% 250 ml @ 125 mls/hr IVPB ONCE ONE Rx#:[id number] Tube Feeding 416 528 352 Other 180 90 30 Output: Urine 256 376 120 Other: Voiding Method Indwelling Catheter Indwelling Catheter # Bowel Movements 1 1 ABP, PAP, CO, CI - Last Documented Arterial Blood Pressure 134/59 - Exam Patient's pupils are round and reacting. Visual yi could not be tested. Patient is intubated. Patient makes eye contact, follows some commands. Pat ient tracks with his eyes on either side. Patient appears quadriparetic. Has very slight staff respiratory therapist on the right. Patient did not wiggle his toes or feet. - Labs CBC & Chem 7: 10/30/19 04:45 10/30/19 11:05 Labs: Abnormal Lab Results - Last 24 Hours (Table) 10/29/19 10/29/19 10/29/19 Range/Units 15:35 17:57 23:54 RBC (4.30-5.90) m/uL Hgb (13.0-17.5) gm/dL Hct (39.0-53.0) % MCV (80.0-100.0) fL RDW (11.5-15.5) % Plt Count (150-450) k/uL PT (9.0-12.0) sec INR (<1.2) Potassium 3.4 L (3.5-5.1) mmol/L Chloride (98-107) mmol/L BUN (9-20) mg/dL Creatinine (0.66-1.25) mg/dL Glucose (74-99) mg/dL POC Glucose (mg/dL) 122 H 132 H (75-99) mg/dL Calcium (8.4-10.2) mg/dL Total Bilirubin (0.2-1.3) mg/dL AST (17-59) U/L ALT (4-49) U/L Alkaline Phosphatase (38-126) U/L Ammonia (<30) umol/L Total Protein (6.3-8.2) g/dL Albumin (3.5-5.0) g/dL 10/30/19 10/30/19 10/30/19 Range/Units 04:45 04:45 04:45 RBC 3.09 L (4.30-5.90) m/uL Hgb 10.6 L (13.0-17.5) gm/dL Hct 31.5 L (39.0-53.0) % MCV 101.9 H (80.0-100.0) fL RDW 17.8 H (11.5-15.5) % Plt Count 23 L (150-450) k/uL PT (9.0-12.0) sec INR (<1.2) Potassium 3.3 L (3.5-5.1) mmol/L Chloride 114 H (98-107) mmol/L BUN 27 H (9-20) mg/dL Creatinine 3.22 H (0.66-1.25) mg/dL Glucose 117 H (74-99) mg/dL POC Glucose (mg/dL) (75-99) mg/dL Calcium 6.6 L (8.4-10.2) mg/dL Total Bilirubin 3.9 H (0.2-1.3) mg/dL AST 86 H (17-59) U/L ALT 188 H (4-49) U/L Alkaline Phosphatase 153 H (38-126) U/L Ammonia 95 H (<30) umol/L Total Protein 3.5 L (6.3-8.2) g/dL Albumin 1.4 L (3.5-5.0) g/dL 10/30/19 10/30/19 10/30/19 Range/Units 05:53 11:05 11:45 RBC (4.30-5.90) m/uL Hgb (13.0-17.5) gm/dL Hct (39.0-53.0) % MCV (80.0-100.0) fL RDW (11.5-15.5) % Plt Count (150-450) k/uL PT 16.5 H (9.0-12.0) sec INR 1.7 H (<1.2) Potassium (3.5-5.1) mmol/L Chloride (98-107) mmol/L BUN (9-20) mg/dL Creatinine (0.66-1.25) mg/dL Glucose (74-99) mg/dL POC Glucose (mg/dL) 129 H 132 H (75-99) mg/dL Calcium (8.4-10.2) mg/dL Total Bilirubin (0.2-1.3) mg/dL AST (17-59) U/L ALT (4-49) U/L Alkaline Phosphatase (38-126) U/L Ammonia (<30) umol/L Total Protein (6.3-8.2) g/dL Albumin (3.5-5.0) g/dL Microbiology - Last 24 Hours (Table) 10/27/19 10:38 Blood Culture - Preliminary Blood No Growth after 72 hours 10/28/19 08:46 Urine Culture - Preliminary Urine,Catheterized Yeast species 10/27/19 09:12 Gram Stain - Final Sputum Sputum Culture - Final Staphylococcus aureus Assessment and Plan Assessment: * 69-year-old male with witnessed cardiac arrest with downtime of around 12 minutes. Patient's mentation and level of response improving. * Ventilator-dependent respiratory failure on mechanical ventilation. * Hepatic encephalopathy. * Shock liver due to above. * Acute on chronic renal failure. * Coagulopathy, leukocytosis * History of alcoholism. Plan: * Patient's level of consciousness, alertness has significantly improved. However continues to be quadriparetic. * We will continue with serial neurological examination. * Patient's EEG showed generalized cerebral dysfunction as can be seen with toxic metabolic encephalopathy or diffuse structural brain abnormality. Presence of triphasic waves suggest hepatic encephalopathy. * Patient ammonia is 79, consistent with hepatic encephalopathy. Treatment of hepatic encephalopathy as per IM. * B12 is 1200, but methylmalonic acid is 0.73 also elevated. RBC folate is normal. * Patient also has multiple medical issues, for which IM/critical care on the case.
[2019-10-30] MEDS ORDERED: LIDOCAINE 1% INJ 10MG/ML (20 ML MDV) ONE (13:55)
[2019-10-30] MEDS ORDERED: LIDOCAINE 1% (PF) 10 MG/ML (30 ML SDV) SQ ONE (14:24)
--- NOTE | 2019-10-30 15:43 | PN ---
PROGRESS NOTE A 69-year-old gentleman that is admitted to hospital as a cardiopulmonary arrest. He seems still intubated on vent, but appears alert and awake. On exam, heart rate is 88 beats per minute, blood pressure , respiratory rate is 18. Chest exam reveals diminished air entry at the bases. Heart exam reveals first and second heart sounds. No gallop. Exam of the extremities revealed mild edema. LABS: Show a hemoglobin of 10.6, platelet count is 23, BUN is 27, creatinine is 3.2. ASSESSMENT: 1. Status post cardiorespiratory arrest. 2. Renal failure. 3. Thrombocytopenia. PLAN: Patient will continue with the supportive care. Have Hematology evaluate the patient for the low platelet count. MMODL / IJN: [id number] /
[2019-10-30] MEDS ORDERED: SODIUM CHLORIDE 0.9% 1,000 ML IV ONE (20:33)
--- NOTE | 2019-10-30 21:07 | P.PN ---
Progress Note - Text Progress Note Date: 10/30/19 Presenting complaint: Short of breath Interval history: From the records: This is a 69 years old male With multiple medical problems as below. Patient is intubated and unresponsive and could not provide information so it was obtained from staff and medical records, no family at bedside. Patient Presents because the neighbors called 911/AMS 4 patient was dyspneic, and brought to the hospital patient became unresponsive with PEA in ambulance, CPR was in associated, he got 3 samples of epinephrine in the ambulance and 1 other dose of epinephrine in the hospital. His CPR downtown was about 20 minutes Patient also hypoglycemic and hypothermic and hypotensive , blood glucose was 20 h glucose D 50% with partial correction and was placed on D10% effusion, however his sugar jumped to 800 so D10%was stopped and currently glucose in around 300. He was placed on Jarad hugger and Currently he is on Levophed at 0.57 which is high dose showing leukocytosis of 12.9 and 19.7 K, hemoglobin 6.6 corrected to 9.2 after blood transfusion, platelets 46 and 50 5K. INR 4.5 and 3.9. PH was 6.9 and 7. 2. Creatinine 2.6 which are unknown baseline. Lactic acid 8.0 7.0. Elevated liver enzymes with AST 3652 and ALT 472 . Troponin is negative Hemoglobin was 6 and INR was 4 and he got 1 dose of vitamin K and 2 units of blood transfusion Patient got Zithromax and ceftriaxone in the emergency room, patient continued on Zosyn, [id number]. FiO2 40% and a PEEP of 5. Patient remains on levo fed. Off sedation. Following simple commands. Intubated. As a fecal management system in place for liquid stools. No urine output. Telemetry shows sinus rhythm. Significant edema remains Review of systems: Patient intubated Active Medications Albuterol/Ipratropium (Duoneb 0.5 Mg-3 Mg/3 Ml Soln) 3 ml INHALATION RT-Q4H [facility] Last Admin: 10/30/19 20:09 Dose: 3 ml Documented by: Albuterol/Ipratropium (Duoneb 0.5 Mg-3 Mg/3 Ml Soln) 3 ml INHALATION RT-Q2H PRN PRN Reason: Shortness Of Breath Or Wheezing Chlorhexidine Gluconate (Peridex) 15 ml MUCOUS MEM BID [facility] Last Admin: 10/30/19 20:22 Dose: 15 ml Documented by: Enoxaparin Sodium (Lovenox) 30 mg SQ DAILY [facility] Last Admin: 10/30/19 09:32 Dose: 30 mg Documented by: Hydromorphone HCl (Dilaudid) 0.5 mg IVP Q3HR PRN PRN Reason: Pain Last Admin: 10/30/19 04:33 Dose: 0.5 mg Documented by: Hydromorphone HCl (Dilaudid) 1 mg IVP Q4HR PRN PRN Reason: Pain Propofol 1,000 mg/ IV Solution 100 mls @ 0 mls/hr IV .Q0M [facility]; Protocol Last Titration: 10/28/19 08:36 Dose: 0 mcg/kg/min, 0 mls/hr Documented by: Norepinephrine Bitartrate 32 (mg/ Sodium Chloride) 250 mls @ 1.378 mls/hr IV .Q24H [facility]; Protocol Last Titration: 10/30/19 14:10 Dose: 0 mcg/kg/min, 0 mls/hr Documented by: Sodium Chloride (Saline 0.9%) 1,000 mls @ 75 mls/hr IV .[id number] [facility] Last Admin: 10/30/19 12:09 Dose: Not Given Documented by: Sodium Chloride (Saline 0.9%) 1,000 mls @ 999 mls/hr IV .Q1H1M ONE Stop: 10/30/19 21:33 Last Admin: 10/30/19 20:35 Dose: 999 mls/hr Documented by: Lactulose (Cephulac) 30 gm PO TID [facility] Last Admin: 10/30/19 16:42 Dose: 30 gm Documented by: Midodrine (Proamatine) 10 mg PO AC-TID [facility] Last Admin: 10/30/19 16:42 Dose: 10 mg Documented by: Miscellaneous Information (Potassium Per Protocol) 1 each MISCELLANE DAILY PRN; Protocol PRN Reason: Per Protocol Miscellaneous Information (Magnesium Per Protocol) 1 each MISCELLANE DAILY PRN; Protocol PRN Reason: Per Protocol Miscellaneous Information (Pharmacy To Dose Iv Vancomycin) 1 each MISCELLANE DIRECTED PRN; Protocol PRN Reason: Per Protocol Naloxone HCl (Narcan) 0.2 mg IV Q2M PRN PRN Reason: Opioid Reversal Pantoprazole Sodium (Protonix) 40 mg IVP DAILY [facility] Last Admin: 10/30/19 09:32 Dose: 40 mg Documented by: On examination: VITAL SIGNS: 98.1, 91, 20, 110/63, 92% on the ventilator GENERAL APPEARANCE: Laying in bed, intubated, more awake HEENT: Normal external appearance of nose and ear. Oral cavity-endotracheal tube EYES: Pupils equal. Conjunctiva pale. NECK: JVD not raised. Mass not palpable. RESPIRATORY: Respiratory effort increased, decreased breath sounds,. CARDIOVASCULAR: First and second sounds normal. Significant edema ABDOMEN: Soft. Liver and spleen not palpable. No tenderness. No mass palpable. PEG tube site appearance clean. Significant scrotal edema DERMATOLOGICAL: Stage II decubital ulcers NEUROLOGICAL: Awake, following simple commands. Weakness in all 4 limbs. PSYCHIATRY: Unable to assess INVESTIGATIONS, reviewed in the clinical context: White count 10.5 hemoglobin 10.6 platelets 23 potassium 3.3 bun 27 creatinine 3.22 AST 86 ALT 188 albumin 1.4 cortisol 51 Previous testing Chest [id number]-dsghywe infiltrate Computed tomography scan of the chest-bibasilar airspace disease, emphysema changes, chronic calcific pancreatitis, Computed tomography scan of the brain-old lacunar infarct in the jung radiata on the right, chronic changes EEG-suggestive of generalized cerebral dysfunction Assessment: -Status post cardiac arrest witnessed-downtime of about 12 minutes. -Chronic kidney disease stage III from nephrosclerosis -Moderate protein calorie malnutrition -Chronic medical debility does use a wheelchair -Chronic esophagitis -Chronic dysphagia -Ischemic hepatitis from hypotension-improving -Hypocalcemia -Aspiration pneumonia due to altered mental status -Chronic pancreatitis -Combination of metabolic and respiratory acidosis. -acute hypoxic respiratory failure, on ventilator -slow to respond -Hypotensive and/or septic shock requiring pressor support -Significant edema due to third spacing from severe hypoalbuminemia -Stage II decubitus ulcer -Metabolic encephalopathy Plan: -Remains off sedation. [address] Fecal management system in place. Has been taken off antibiotics-per Dr. Zapien.
[2019-10-31] MEDS: IPRATROPIUM-ALBUTEROL 3 ML NEB INHALATION SCH ×6 (00:03→19:38)
[2019-10-31 00:54] LABS: Glucose,Whole Blood 164 mg/dL (75-99)
[2019-10-31] MEDS: NOREPINEPHRINE 32 MG in SODIUM CHLORIDE 0.9% 218 ML IV SCH (03:37)
[2019-10-31] MEDS: SODIUM CHLORIDE 0.9% 1,000 ML IV SCH (03:45)
[2019-10-31 05:29] LABS: Glucose,Whole Blood 140 mg/dL (75-99)
[2019-10-31 05:42] LABS: Albumin 1.3 g/dL (3.5-5.0); Calcium 6.9 mg/dL (8.4-10.2); Potassium 2.9 mmol/L (3.5-5.1); Total Bilirubin 4.1 mg/dL (0.2-1.3); Total Protein 3.6 g/dL (6.3-8.2)
[2019-10-31 05:43] LABS: ABG HCO3 18 mmol/L (21-25); ABG PCO2 34 mmHg (35-45); ABG PH 7.33 (7.35-7.45); ABG PO2 76 mmHg (83-108); Allen Test Performed? no
[2019-10-31 06:23] LABS: Anisocytosis Slight; Basophils % (A) 0 %; Eosinophils # (A) 0.2 k/uL (0-0.7); Eosinophils % (A) 2 %; HCT 33.7 % (39.0-53.0); HGB 10.5 gm/dL (13.0-17.5); Hypochromasia Moderate; Lymphocytes # (A) 0.7 k/uL (1.0-4.8); Lymphocytes % (A) 8 %; MCH 32.7 pg (25.0-35.0); MCV 105.3 fL (80.0-100.0); Macrocytosis Marked; Mean Platelet Volume 13.5; Monocytes # (A) 0.5 k/uL (0-1.0); Monocytes % (A) 5 %; Neutrophils # (A) 7.4 k/uL (1.3-7.7); Neutrophils % (A) 83 %; RDW 17.9 % (11.5-15.5); WBC 8.9 k/uL (3.8-10.6)
[2019-10-31 06:41] LABS: Platelet Count 18 k/uL (150-450); Poikilocytosis (M) Present
[2019-10-31] MEDS: POTASSIUM CHLORIDE 20 MEQ in WATER FOR INJECTION 1 100ML.BAG IVPB SCH ×2 (06:52→08:39)
[2019-10-31] MEDS: MIDODRINE 5 MG TAB PO SCH ×3 (06:52→18:23)
--- NOTE | 2019-10-31 07:19 | XR ---
EXAMINATION TYPE: XR chest 1V portable DATE OF EXAM: 10/31/2019 COMPARISON: Prior chest x-ray 10/30/2019 HISTORY: Intubated TECHNIQUE: Single frontal view of the chest is obtained. FINDINGS: Endotracheal tube and NG tube, right jugular central venous catheter are overlying appropr iate positions. Heart size is stable. Interval improved aeration at the left lung base, improved visu alization of left hemidiaphragm noted. No pneumothorax. Heart is stable. Postop changes are noted to the cervical spine, there are overlying artifacts. IMPRESSION: Interval improvement in aeration left lower lobe.
[2019-10-31] MEDS: PANTOPRAZOLE 40 MG/10 ML VIAL IVP SCH (08:38)
[2019-10-31] MEDS: CHLORHEXIDINE GLUCONATE 15 ML CUP MUCOUS MEM SCH (08:38)
[2019-10-31] MEDS: ENOXAPARIN 30 MG/0.3 ML SYRINGE SQ SCH (08:39)
--- NOTE | 2019-10-31 09:07 | P.NPCON ---
History of Present Illness - Reason for Consult acute renal failure, chronic renal failure - History of Present Illness Reason for consultation: Acute kidney injury on chronic kidney disease History of present illness: Patient is a 69-year-old male seen in renal consultation for acute kidney injury on chronic kidney disease. Patient has chronic kidney disease stage III with baseline creatinine 1.8-2. Renal function is worse today. Creatinine 3.41. Urine output 5-10 mL an hour for the last 3 hours. Patient presented to the hospital on October 26 due to shortness of breath. Patient had a PEA cardiac arrest and underwent multiple rounds of CPR. He initially received 5 L of normal saline on admission and another 2 L last night. He is off vasopressors at this time. Patient is intubated. He is noted to be severely edematous. Albumin level low at 1.3. Currently not on tube feeding. He is maintained on normal saline at 75 mL an hour. He is also noted to have staph aureus in the sputum and yeast in the urine. He is maintained on antibiotics. Vancomycin level XXI this morning. Vital signs are stable. General: The patient appeared well nourished and normally developed. Intubated. HEENT: Head exam is unremarkable. Neck is without jugular venous distension. LUNGS: Breath sounds decreased. HEART: Rate and Rhythm are regular. ABDOMEN: Soft, nondistended. EXTREMITITES: 3+ edema. Severe scrotal edema noted. Past Medical History Past Medical History: Asthma, GI Bleed, Hypertension, Liver Disease, Neurologic Disorder, Pneumonia, Renal Disease Additional Past Medical History / Comment(s): Dysphagia, aspiration pneumo dusty/vented, peg tube placed but staff state with therapy pt recently able to take orals and they are just doing water flushes of peg [id number]-jfmmh also states past 1.5 weeks pt's oral intake has declined and he has refused to supplement with his peg tube-voices concern he will again lose ability to take orals, esophagitis, septic shock, pleural effusion with thoracentesis, pt wears oxygen ATC, GI bleed, calculus of bile duct/stented, acute cholecystitis, pancreatitis, R femoral pseudoaneurysm with acute blood loss anemia, CKD stage III with chronic anemia, nephrolithiasis, UTI, past ETOH abuse, alcoholic fatty liver, chronic generalized pain, muscle weakness, insomnia, protein calorie malnutrition, defiency of vitamis, thrombocytopenia, skin tear L buttock. History of Any Multi-Drug Resistant Organisms: ESBL Date of last positivie culture/infection: 06/19/19 MDRO Source:: ESBL ABDOMEN Past Surgical History: Orthopedic Surgery Additional Past Surgical History / Comment(s): Peg tube, R femoral pseudoaneurysm repair, C3-6 cervical surgery/plate, bilateral cataract removal with lens implants, umbilical hernia as a baby, bile duct stent, ERCP, Past Anesthesia/Blood Transfusion Reactions: No Reported Reaction Past Psychological History: No Psychological Hx Reported Smoking Status: Unknown if ever smoked Past Alcohol Use History: None Reported Past Drug Use History: None Reported - Past Family History Father Family Medical History: Cancer Additional Family Medical History / Comment(s): Melanoma Mother Family Medical History: Cancer Additional Family Medical History / Comment(s): Breast cancer. Medications and Allergies Home Medications Medication Instructions Recorded Confirmed Type Levothyroxine Sodium [Synthroid] 25 mcg PO DAILY 10/19/18 10/27/19 History Sodium Bicarbonate 650 mg PO Q8H 06/18/19 10/27/19 History amLODIPine [Norvasc] 5 mg PO DAILY 06/18/19 10/27/19 History Epoetin Von-Epbx [Retacrit] 4,000 units SQ Q7D 10/27/19 10/27/19 History Escitalopram [Lexapro] 10 mg PO DAILY 10/27/19 10/27/19 History Gabapentin [Neurontin] 400 mg PO HS 10/27/19 10/27/19 History HYDROcodone/APAP 10-325MG [Davis 1 tab PO Q4HR PRN 10/27/19 10/27/19 History 10-325] Ipratropium-Albuterol Nebulize 3 ml INHALATION RT-QID 10/27/19 10/27/19 History [Duoneb 0.5 mg-3 mg/3 ml Soln] Metoprolol Tartrate [Lopressor] 75 mg PO BID 10/27/19 10/27/19 History Omeprazole [PriLOSEC] 20 mg PO BID 10/27/19 10/27/19 History Allergies Allergy/AdvReac Type Severity Reaction Status Date / Time No Known Allergies Allergy Verified 10/27/19 13:13 Physical Exam Vitals: Vital Signs Temp Pulse Resp BP Pulse Ox 10/31/19 08:55 85 10/31/19 08:44 84 10/31/19 08:00 93.7 F L 70 22 95 10/31/19 07:00 75 29 H 95 10/31/19 06:00 76 29 H 96 10/31/19 05:00 76 30 H 96 10/31/19 04:00 97 F L 82 29 H 93 L 10/31/19 03:00 80 25 H 96 10/31/19 02:00 74 22 95 10/31/19 01:00 80 22 95 10/31/19 00:16 84 10/31/19 00:14 80 20 98 10/31/19 00:03 78 10/31/19 00:00 98.7 F 78 20 95 10/30/19 23:00 83 19 95 10/30/19 22:00 90 24 96 10/30/19 21:00 98 20 93 L 10/30/19 20:26 89 10/30/19 20:09 96 10/30/19 20:00 97.8 F 87 20 95 10/30/19 19:00 86 19 94 L 10/30/19 18:00 90 16 94 L 10/30/19 17:00 94 17 93 L 10/30/19 16:51 93 10/30/19 16:00 98.1 F 91 20 110/63 92 L 10/30/19 15:00 86 18 110/63 90 L 10/30/19 14:00 88 15 110/63 89 L 10/30/19 13:00 87 14 110/63 88 L 10/30/19 12:30 122 H 10/30/19 12:13 82 10/30/19 12:00 98.0 F 90 20 90 L 10/30/19 11:00 88 11 L 102/60 93 L 10/30/19 10:00 90 12 102/60 92 L 10/30/19 09:00 91 16 102/60 94 L Intake and Output 10/30/19 10/31/19 10/31/19 22:59 06:59 14:59 Intake Total 1755 990.633 122 Output Total 170 145 5 Balance 1585 845.633 117 Intake: IV 1549 549 78 Pressure Bag 0.9 24 24 3 Sodium Chloride 0.9% 1, 525 525 75 000 ml @ 75 mls/hr IV . [id number] [facility] Rx#:[id number] Sodium Chloride 0.9% 1, 1000 000 ml @ 999 mls/hr IV . Q1H1M [facility] Rx#:[id number] Intake, IV Titration 0 29.633 Amount propofoL 1,000 mg In 0 29.633 Empty Bag 1 bag @ Titrate IV .Q0M [facility] Rx#: [id number] Tube Feeding 176 352 44 Other 30 60 Output: Urine 170 145 5 Other: Voiding Method Indwelling Catheter Indwelling Catheter Weight 68.2 kg ABP, PAP, CO, CI - Last 8 Hours Arterial Blood Pressure 112/50 Arterial Blood Pressure 105/47 Arterial Blood Pressure 117/51 Arterial Blood Pressure 117/46 Arterial Blood Pressure 107/49 Arterial Blood Pressure 134/55 Arterial Blood Pressure 116/53 Arterial Blood Pressure 92/44 Results - Lab Results Most recent lab results ABG pH 7.33 (7.35-7.45) L 10/31/19 05:15 ABG pCO2 34 mmHg (35-45) L 10/31/19 05:15 ABG pO2 76 mmHg (83-108) L 10/31/19 05:15 ABG HCO3 18 mmol/L (21-25) L 10/31/19 05:15 ABG O2 Saturation 94.0 % (94-97) 10/31/19 05:15 Calcium 6.9 mg/dL (8.4-10.2) L 10/31/19 05:19 Phosphorus 3.2 mg/dL (2.5-4.5) 10/29/19 07:07 Magnesium 2.3 mg/dL (1.6-2.3) 10/30/19 04:45 10/31/19 05:19 10/31/19 05:19 Assessment and Plan Plan: Assessment: 1. Acute kidney injury secondary to ATN secondary to cardiac arrest. Creatinine 3.41 today. 2. Chronic kidney disease stage III Baseline creatinine 1.8-2 secondary to nephrosclerosis. 3. Status post cardiac arrest. 4. Hypokalemia from poor intake. Magnesium normal as of yesterday. 5. Metabolic acidosis secondary to acute kidney injury. 6. Volume overload. Partially due to severe hypoalbuminemia causing third spacing. Plan: 25 g IV albumin 2 doses today. Start Lasix 80 mg IV twice daily. Hep-Lock IV fluids. Continue to monitor renal function and urine output. Potassium being replaced. Recheck this evening. Monitor vancomycin level. Dose to be adjusted for renal function. Continue to assess daily for need for renal placement therapy. Thank you for the consultation. I will continue to follow the patient with you during his hospital stay.
[2019-10-31] MEDS: ALBUMIN HUMAN 25% 50 ML in EMPTY BAG 1 BAG IVPB SCH ×4 (09:19→18:24)
--- NOTE | 2019-10-31 09:36 | PN ---
PROGRESS NOTE Twin is a 69-year-old gentleman who is admitted to the hospital following a cardiopulmonary arrest, remains intubated and on vent. Has multiple other issues including severe thrombocytopenia and renal failure with a creatinine that is still going up. He remains intubated and on vent. On exam, heart rate is 75 beats per minute. Blood pressure is 104/47, respiratory is 18. Chest exam reveals good air entry bilaterally. Heart exam reveals first and second heart sounds. No gallop. Exam of extremities reveals bilateral 1+ pitting edema. Patient is currently on nebulizers, Lasix, midodrine for hypotension. ASSESSMENT: Status post cardiac respiratory arrest, sepsis with hypotension, severe thrombocytopenia. PLAN: Prognosis is guarded. Continue current measures. Will wean and extubate as tolerated. MMODL / IJN: [id number] /
[2019-10-31] MEDS ORDERED: FUROSEMIDE 10 MG/ML 10 ML VIAL IV SCH ×2 (10:00→18:00)
[2019-10-31] MEDS: LACTULOSE 20 GM/30 ML CUP PO SCH ×2 (10:02→23:08)
--- NOTE | 2019-10-31 10:43 | P.PN ---
Subjective Progress Note Date: 10/31/19 Principal diagnosis: Cardiac arrest, acute respiratory failure This is a 69-year-old gentleman who follows with Dr. Smith as his primary care provider. He has a history of hypertension, alcoholism, previous history of staphylococcal pneumonia and respiratory failure requiring intubation and mechanical ventilation, dysphagia with previous PEG tube placement, chronic kidney disease, hypothyroidism, chronic pancreatitis, previous GI bleed, recurrent UTIs, ERCPs. He is residing at home. His neighbor was checking on him earlier this morning and found him to be having difficulty in breathing. EMS was called. Upon arrival patient was arousable. They put him in the back and the implants and then he lost pulses and was found to be an PEA. CPR was performed for 20 minutes prior to arriving to the hospital. He had received 3 rounds of epinephrine and was tubed in the field. He arrived pulseless. CPR continued and there was return of spontaneous circulation. According to EMS there is no family for this patient. He was subsequently transferred to the intensive care unit he was seen immediately upon arrival. He is intubated on mechanical ventilator with settings of assist control of 20, tidal volume 400, FiO2 50% and a PEEP of 5. Arterial blood gases on 50% FiO2 were 1 PaO2 of 121. PCO2 34. PH 7.24. He has received 3 L of fluid resuscitation. 2 A of bicarb were given. He is sedated on propofol at 30 mcg/kg/m. He is requiring norepinephrine at 0.55 mcg/kg/m. He received 1 dose of Zosyn. Right IJ catheter in place. Left femoral arterial line inserted. Scant urine output. White count 19.7. Hemoglobin 9.2. INR 3.9. Sodium 139. Potassium 3.5. Chloride 114. Bicarb 14. Creatinine 2.66. Lactic acid 8.3. ALT 472. AST 2522. Troponin negative 1. Glucose 380. Computed tomography scan of the brain revealed no acute intracranial abnormality. Old lacunar infarct in the jung radiata on the right. Atrophic change. Chronic white matter ischemic change. Computed tomography scan of the chest abdomen and pelvis revealed small bilateral effusions. Bibasilar airspace disease. Emphysematous changes with associated ground glass opacity may represent ongoing alveolitis. Mild pericardial fluid or thickening. Fatty infiltration of the liver. Evidence of chronic calcific pancreatitis. Thickening of the wall of the sigmoid colon. Possible colitis. Degenerative changes of the spine. On 10/30/2019 patient seen in follow-up in the intensive care unit, patient remains intubated on mechanical ventilator, current vent settings are assist- control with a rate of 16, tidal volume is 400, FiO2 is 40% and PEEP of 5, this morning his blood gases reveal pO2 of 82, pCO2 36, and pH of 7.39. Patient's sedation is currently on hold, he is on 0.9 normal saline at a rate of 75 ML per hour, Levaquin fatty is at 2 mics per minute. He is receiving tube feedings with vital high protein at a rate of 44 with a goal of 44 and standard water flushes. Yesterday we discontinued patient's Diprivan, patient is awake, and following simple commands, he is extremely weak he is not able to squeeze hands on command but he is nodding his head appropriately to verbal questioning. He denies any acute distress. Patient's sputum culture came back positive for presumptive staph aureus, and patient was started on vancomycin, he is also on Zosyn which we can discontinue. He has been afebrile. Patient has developed severe anasarca, pitting edema upper lower extremities, abdominal wall, and severe scrotal edema. History we gave the patient on dose of 25% albumin 25 g and followed it with 40 mg of IV Lasix. Patient has produced 632 mL in urine output in the last 24 hours and he still 2.8 L positive. His albumin on today's CMP is only 1.4, patient has chronic liver disease related to his history of alcoholism, other blood work has been reviewed showing white blood cell count of 10.5, hemoglobin of 10.6, sodium is 141, potassium is 3.3, chloride is 114, B1 of 27 and creatinine of 3.2. His renal profile continues to worsen. Liver enzymes are improving, AST down to 86, ALT is 188, and alkaline phosphatase is 153. His ammonia level is 95, patient is having diarrhea however he is getting lactulose 30 Musa 3 times daily. FMS was inserted. Yesterday patient was able to tolerate on pressure-support trial with a pressure support of 10 and CPAP of 5 for 2 hours. He was placed on assist-control mode of ventilation for the night. This morning we will give him another pressure-support trial. Vital signs are stable, patient is sinus mechanism with a controlled rate. On 10/31/2019 patient seen in follow-up in intensive care unit, he is currently sedated, on propofol infusion at 20 mics per kilo per minute, remains on dc [employer] ventilator, on assist-control with a rate of 16, TV 400, FiO2 of 40% and PEEP of 5, despite blood gases show pO2 of 76, pCO2 34, and pH of 7.33. Maintenance IV fluids 0.9 normal saline at a rate of 75 per hour, vital high protein tube feedings at a rate of 44 with a goal of 44. Yesterday patient was given a sedation holiday, he was awake and following commands although he was severely generally weak, he was given a spontaneous breathing trial with pressure support of 10 and CPAP of 5, and patient did quite well, and remained on pressure-support trial all day and was placed back on assist control mode for the night. This morning we will proceed with the same, will wake up the patient and do another pressure-support trial with pressure support of 10 and CPAP of 5. Today's chest x-ray has been reviewed, showing interval improvement in aeration of the left lower lobe. Today's labs have been reviewed, with metal, Z.9, hemoglobin is 10.5, platelet count is further decreased and is down to 18,000, no obvious signs of bleeding, sodium is 143, potassium is 2.9, chloride is 120, CO2 is 18, BUN is 26, creatinine is 3.4, AST is 50, ALT is 125, alkaline phosphatase is 137. Albumin is 1.3. Ammonia level is 146, patient remains on lactulose 3 times daily, and patient is having massive liquid diarrhea and the nursing reports that patient put out approximately 1.5 L in liquid stool in the last 24 hours. Patient has a severe generalized anasarca, pitting edema involving his torso, upper and lower extremities, he has significant scrotal edema. Nephrology is on, in patient has been off vasopressors and the last 48 hours, and nephrology starting diuretics with 80 mg of Lasix. Objective - Vital Signs Vital signs: Vital Signs Temp 95.0 F L 10/31/19 10:00 Pulse 81 10/31/19 10:00 Resp 15 10/31/19 10:00 BP 110/63 10/30/19 16:00 Pulse Ox 95 10/31/19 10:00 Intake & Output 10/30/19 10/31/19 10/31/19 18:59 06:59 18:59 Intake Total 9352.266 9094.633 624 Output Total 240 245 25 Balance 6899.041 7331.633 599 Weight 68.2 kg Intake: IV 936 1786 262 Albumin Human 25% 50 ml 100 In Empty Bag 1 bag @ 50 mls/hr IVPB ONCE ONE Rx#: [id number] Pressure Bag 0.9 36 36 12 Sodium Chloride 0.9% 1, 900 750 150 000 ml @ 75 mls/hr IV . [id number] [facility] Rx#:[id number] Sodium Chloride 0.9% 1, 1000 000 ml @ 999 mls/hr IV . Q1H1M [facility] Rx#:[id number] Intake, IV Titration 255.320 29.633 200 Amount Norepinephrine 32 mg In 5.320 Sodium Chloride 0.9% 218 ml @ 0.05 MCG/KG/MIN 1. 378 mls/hr IV .Q24H [facility] Rx#:[id number] Potassium Chloride 20 meq 200 In Water For Injection 1 100ml.bag @ 50 mls/hr IVPB Q2H [facility] Rx#: [id number] Vancomycin 1,250 mg In 250 Sodium Chloride 0.9% 250 ml @ 125 mls/hr IVPB ONCE ONE Rx#:[id number] propofoL 1,000 mg In 29.633 Empty Bag 1 bag @ Titrate IV .Q0M [facility] Rx#: [id number] Tube Feeding 396 484 132 Other 30 90 30 Output: Urine 240 245 25 Other: Voiding Method Indwelling Catheter Indwelling Catheter ABP, PAP, CO, CI - Last Documented Arterial Blood Pressure 130/52 - Exam GENERAL EXAM: Alert, 69-year-old white male, sedated, on assist-control mode of ventilation with FiO2 of 40%, comfortable in no apparent distress. Patient has generalized swelling and upper and lower extremities, and weeping from the lower extremities and small open areas on upper arms. Patient appears older than stated age, quite pale and chronically ill appearing HEAD: Normocephalic/atraumatic. EYES: Normal reaction of pupils, equal size. Conjunctiva pink, sclera white. NOSE: Clear with pink turbinates. THROAT: No erythema or exudates. NECK: No masses, no JVD, no thyroid enlargement, no adenopathy. CHEST: No chest wall deformity. Symmetrical expansion. LUNGS: Equal air entry with no crackles, wheeze, rhonchi or dullness. CVS: Regular rate and rhythm, normal S1 and S2, no gallops, no murmurs, no rubs ABDOMEN: Soft, nontender. No hepatosplenomegaly, normal bowel sounds, no guarding or rigidity. EXTREMITIES: No clubbing, no cyanosis, 2+ pulses and upper and lower extremities. Generalized anasarca, swelling, 2+ lower extremity edema, 1+ upper extremity edema, edema involving abdominal wall, and severe scrotal edema MUSCULOSKELETAL: Muscle strength and tone normal. SPINE: No scoliosis or deformity SKIN: No rashes CENTRAL NERVOUS SYSTEM: Alert and oriented -1. No focal deficits, tone is normal in all 4 extremities. PSYCHIATRIC: Alert and oriented -1. Appropriate affect. Intact judgment and insight. - Labs CBC & Chem 7: 10/31/19 05:19 10/31/19 05:19 Labs: Abnormal Lab Results - Last 24 Hours (Table) 10/30/19 10/30/19 10/31/19 Range/Units 11:05 11:45 00:41 RBC (4.30-5.90) m/uL Hgb (13.0-17.5) gm/dL Hct (39.0-53.0) % MCV (80.0-100.0) fL RDW (11.5-15.5) % Plt Count (150-450) k/uL Lymphocytes # (1.0-4.8) k/uL Macrocytosis PT 16.5 H (9.0-12.0) sec INR 1.7 H (<1.2) ABG pH (7.35-7.45) ABG pCO2 (35-45) mmHg ABG pO2 (83-108) mmHg ABG HCO3 (21-25) mmol/L Potassium (3.5-5.1) mmol/L Chloride (98-107) mmol/L Carbon Dioxide (22-30) mmol/L BUN (9-20) mg/dL Creatinine (0.66-1.25) mg/dL Glucose (74-99) mg/dL POC Glucose (mg/dL) 132 H 164 H (75-99) mg/dL Calcium (8.4-10.2) mg/dL Total Bilirubin (0.2-1.3) mg/dL ALT (4-49) U/L Alkaline Phosphatase (38-126) U/L Ammonia (<30) umol/L Total Protein (6.3-8.2) g/dL Albumin (3.5-5.0) g/dL 10/31/19 10/31/19 10/31/19 Range/Units 05:15 05:18 05:19 RBC (4.30-5.90) m/uL Hgb (13.0-17.5) gm/dL Hct (39.0-53.0) % MCV (80.0-100.0) fL RDW (11.5-15.5) % Plt Count (150-450) k/uL Lymphocytes # (1.0-4.8) k/uL Macrocytosis PT (9.0-12.0) sec INR (<1.2) ABG pH 7.33 L (7.35-7.45) ABG pCO2 34 L (35-45) mmHg ABG pO2 76 L (83-108) mmHg ABG HCO3 18 L (21-25) mmol/L Potassium 2.9 L (3.5-5.1) mmol/L Chloride 120 H (98-107) mmol/L Carbon Dioxide 18 L (22-30) mmol/L BUN 26 H (9-20) mg/dL Creatinine 3.41 H (0.66-1.25) mg/dL Glucose 129 H (74-99) mg/dL POC Glucose (mg/dL) 140 H (75-99) mg/dL Calcium 6.9 L (8.4-10.2) mg/dL Total Bilirubin 4.1 H (0.2-1.3) mg/dL ALT 125 H (4-49) U/L Alkaline Phosphatase 137 H (38-126) U/L Ammonia (<30) umol/L Total Protein 3.6 L (6.3-8.2) g/dL Albumin 1.3 L (3.5-5.0) g/dL 10/31/19 10/31/19 Range/Units 05:19 05:41 RBC 3.20 L (4.30-5.90) m/uL Hgb 10.5 L (13.0-17.5) gm/dL Hct 33.7 L (39.0-53.0) % MCV 105.3 H (80.0-100.0) fL RDW 17.9 H (11.5-15.5) % Plt Count 18 L* (150-450) k/uL Lymphocytes # 0.7 L (1.0-4.8) k/uL Macrocytosis Marked A PT (9.0-12.0) sec INR (<1.2) ABG pH (7.35-7.45) ABG pCO2 (35-45) mmHg ABG pO2 (83-108) mmHg ABG HCO3 (21-25) mmol/L Potassium (3.5-5.1) mmol/L Chloride (98-107) mmol/L Carbon Dioxide (22-30) mmol/L BUN (9-20) mg/dL Creatinine (0.66-1.25) mg/dL Glucose (74-99) mg/dL POC Glucose (mg/dL) (75-99) mg/dL Calcium (8.4-10.2) mg/dL Total Bilirubin (0.2-1.3) mg/dL ALT (4-49) U/L Alkaline Phosphatase (38-126) U/L Ammonia 146 H (<30) umol/L Total Protein (6.3-8.2) g/dL Albumin (3.5-5.0) g/dL Microbiology - Last 24 Hours (Table) 10/27/19 10:38 Blood Culture - Preliminary Blood No Growth after 72 hours 10/28/19 08:46 Urine Culture - Preliminary Urine,Catheterized Yeast species 10/27/19 09:12 Gram Stain - Final Sputum Sputum Culture - Final Staphylococcus aureus Assessment and Plan Plan: Assessment: 1 Cardiac arrest with approximate 20 minutes of CPR, for epinephrine and subsequent return of spontaneous circulation. 2 Acute respiratory arrest secondary to above requiring intubation mechanical ventilatory support, patient was intubated on 10/27/2019, remains intubated today on 10/30/2019. Did tolerate 2 hours a pressure support trials yesterday on 10/29/2019 3 Acute hypotension with suspected septic shock requiring norepinephrine, improved, and patient is off vasopressor support, midodrine was added, serum cortisol level is 51 5 MSSA pneumonia, urine culture showing yeast species, was initially covered with vancomycin 6 shock liver secondary to above, improving 7 Acute on chronic renal failure, worsening 8 Leukocytosis, improved 9 Coagulopathy secondary to shock liver 10 Chronic pancreatitis 11 History of alcoholism 11 Chronic normocytic anemia 12 Previous history of ventilatory dependent respiratory failure secondary to MSSA pneumonia 13 Chronic dysphagia secondary to vocal cord injury with previous PEG tube placement 14 History of previous GI bleed 15 Cerebral atrophy along with chronic small vessel ischemia 16 Poor overall functional performance based on the above-mentioned multiple comorbidities 17 thrombocytopenia, hypoalbuminemia, severe, related to chronic liver disease and sepsis Plan: Proceed with daily traction of sedation, and placed patient back on pressure support of 10 and CPAP of 5, obtain a full set of weaning parameters after half an hour. Agree with diuretics, followed consultation has been noted, will discontinue vancomycin, we'll switch the patient to Rocephin for MSSA pneumonia, today's chest x-ray has been reviewed showing some improvement in aeration of the left base. Hemodynamically patient is stable, his been off vasopressor support her last 48 hours, cortisol level has been noted, continue midodrine, continue tube feedings for nutritional support. Patient developed massive liquid diarrhea, we'll cut back the lactulose to once daily, and will add Xifaxan. Correct hypokalemia per protocol. Patient remains critically ill, overall prognosis is extremely guarded, will ask the director of social media marketing to start the process for legal guardianship as the patient has no family and has no one speaking on his behalf in making medical decisions. I performed a history & physical examination of the patient and discussed their management with my nurse practitioner, Ashley Vigil. I reviewed the nurse practitioner's note and agree with the documented findings and plan of care. Lung sounds are positive for diminished breath sounds. The findings and the impression was discussed with the patient. I attest to the documentation by the nurse practitioner. Critical care time is greater than 30 minutes Time with Patient: Greater than 30
[2019-10-31] MEDS: RIFAXIMIN 550 MG TABLET PO SCH ×2 (11:44→23:09)
[2019-10-31 11:56] LABS: Glucose,Whole Blood 123 mg/dL (75-99)
--- NOTE | 2019-10-31 13:45 | P.PN ---
Subjective Progress Note Date: 10/31/19 Patient is intubated. Much more alert and awake. Patient is following some directions, making eye contact. Patient tracking. Following some commands as below. Objective - Vital Signs Vital signs: Vital Signs Temp 97.2 F L 10/31/19 13:00 Pulse 95 10/31/19 13:00 Resp 7 L 10/31/19 13:00 BP 110/63 10/30/19 16:00 Pulse Ox 90 L 10/31/19 13:00 Intake & Output 10/30/19 10/31/19 10/31/19 18:59 06:59 18:59 Intake Total 9450.229 9430.633 753.736 Output Total 240 245 70 Balance 5009.906 4150.633 683.736 Weight 68.2 kg 68.2 kg Intake: IV 936 1786 271 Albumin Human 25% 50 ml 100 In Empty Bag 1 bag @ 50 mls/hr IVPB ONCE ONE Rx#: [id number] Pressure Bag 0.9 36 36 21 Sodium Chloride 0.9% 1, 900 750 150 000 ml @ 75 mls/hr IV . [id number] [facility] Rx#:[id number] Sodium Chloride 0.9% 1, 1000 000 ml @ 999 mls/hr IV . Q1H1M [facility] Rx#:[id number] Intake, IV Titration 255.320 29.633 232.736 Amount Norepinephrine 32 mg In 5.320 Sodium Chloride 0.9% 218 ml @ 0.05 MCG/KG/MIN 1. 378 mls/hr IV .Q24H [facility] Rx#:[id number] Potassium Chloride 20 meq 200 In Water For Injection 1 100ml.bag @ 50 mls/hr IVPB Q2H [facility] Rx#: [id number] Vancomycin 1,250 mg In 250 Sodium Chloride 0.9% 250 ml @ 125 mls/hr IVPB ONCE ONE Rx#:[id number] propofoL 1,000 mg In 29.633 32.736 Empty Bag 1 bag @ Titrate IV .Q0M [facility] Rx#: [id number] Tube Feeding 396 484 220 Other 30 90 30 Output: Urine 240 245 70 Other: Voiding Method Indwelling Catheter Indwelling Catheter Indwelling Catheter ABP, PAP, CO, CI - Last Documented Arterial Blood Pressure 127/48 - Exam Patient's pupils are round and reacting. Visual yi could not be tested. Patient is intubated. Patient makes eye contact, follows some commands. Patient tracks with his eyes on either side. Patient's abrasive mixer is about 4 to 4- bilaterally. Patient did not wiggle his toes or feet. - Labs CBC & Chem 7: 10/31/19 05:19 10/31/19 05:19 Labs: Abnormal Lab Results - Last 24 Hours (Table) 10/31/19 10/31/19 10/31/19 Range/Units 00:41 05:15 05:18 RBC (4.30-5.90) m/uL Hgb (13.0-17.5) gm/dL Hct (39.0-53.0) % MCV (80.0-100.0) fL RDW (11.5-15.5) % Plt Count (150-450) k/uL Lymphocytes # (1.0-4.8) k/uL Macrocytosis ABG pH 7.33 L (7.35-7.45) ABG pCO2 34 L (35-45) mmHg ABG pO2 76 L (83-108) mmHg ABG HCO3 18 L (21-25) mmol/L Potassium (3.5-5.1) mmol/L Chloride (98-107) mmol/L Carbon Dioxide (22-30) mmol/L BUN (9-20) mg/dL Creatinine (0.66-1.25) mg/dL Glucose (74-99) mg/dL POC Glucose (mg/dL) 164 H 140 H (75-99) mg/dL Calcium (8.4-10.2) mg/dL Total Bilirubin (0.2-1.3) mg/dL ALT (4-49) U/L Alkaline Phosphatase (38-126) U/L Ammonia (<30) umol/L Total Protein (6.3-8.2) g/dL Albumin (3.5-5.0) g/dL 10/31/19 10/31/19 10/31/19 Range/Units 05:19 05:19 05:41 RBC 3.20 L (4.30-5.90) m/uL Hgb 10.5 L (13.0-17.5) gm/dL Hct 33.7 L (39.0-53.0) % MCV 105.3 H (80.0-100.0) fL RDW 17.9 H (11.5-15.5) % Plt Count 18 L* (150-450) k/uL Lymphocytes # 0.7 L (1.0-4.8) k/uL Macrocytosis Marked A ABG pH (7.35-7.45) ABG pCO2 (35-45) mmHg ABG pO2 (83-108) mmHg ABG HCO3 (21-25) mmol/L Potassium 2.9 L (3.5-5.1) mmol/L Chloride 120 H (98-107) mmol/L Carbon Dioxide 18 L (22-30) mmol/L BUN 26 H (9-20) mg/dL Creatinine 3.41 H (0.66-1.25) mg/dL Glucose 129 H (74-99) mg/dL POC Glucose (mg/dL) (75-99) mg/dL Calcium 6.9 L (8.4-10.2) mg/dL Total Bilirubin 4.1 H (0.2-1.3) mg/dL ALT 125 H (4-49) U/L Alkaline Phosphatase 137 H (38-126) U/L Ammonia 146 H (<30) umol/L Total Protein 3.6 L (6.3-8.2) g/dL Albumin 1.3 L (3.5-5.0) g/dL //20 Range/Units 11:54 RBC (4.30-5.90) m/uL Hgb (13.0-17.5) gm/dL Hct (39.0-53.0) % MCV (80.0-100.0) fL RDW (11.5-15.5) % Plt Count (150-450) k/uL Lymphocytes # (1.0-4.8) k/uL Macrocytosis ABG pH (7.35-7.45) ABG pCO2 (35-45) mmHg ABG pO2 (83-108) mmHg ABG HCO3 (21-25) mmol/L Potassium (3.5-5.1) mmol/L Chloride (98-107) mmol/L Carbon Dioxide (22-30) mmol/L BUN (9-20) mg/dL Creatinine (0.66-1.25) mg/dL Glucose (74-99) mg/dL POC Glucose (mg/dL) 123 H (75-99) mg/dL Calcium (8.4-10.2) mg/dL Total Bilirubin (0.2-1.3) mg/dL ALT (4-49) U/L Alkaline Phosphatase (38-126) U/L Ammonia (<30) umol/L Total Protein (6.3-8.2) g/dL Albumin (3.5-5.0) g/dL Microbiology - Last 24 Hours (Table) 10/27/19 10:38 Blood Culture - Preliminary Blood No Growth after 96 hours 10/28/19 08:46 Urine Culture - Preliminary Urine,Catheterized Yeast species 10/27/19 09:12 Gram Stain - Final Sputum Sputum Culture - Final Staphylococcus aureus Assessment and Plan Assessment: * 69-year-old male with witnessed cardiac arrest with downtime of around 12 minutes. Patient's mentation and level of response improving. * Ventilator-dependent respiratory failure on mechanical ventilation. * Hepatic encephalopathy. * Shock liver due to above. * Acute on chronic renal failure. * Coagulopathy, leukocytosis * History of alcoholism. Plan: * Patient's level of consciousness, alertness has significantly improved. Still generalized weak. Able to squeeze hands with better abrasive mixer. * Patient's ammonia level has gone up 146. Treatment of hepatic encephalopathy as per IM/critical care. * Patient's EEG showed generalized cerebral dysfunction as can be seen with toxic metabolic encephalopathy or diffuse structural brain abnormality. Presence of triphasic waves suggest hepatic encephalopathy. * B12 is 1200, but methylmalonic acid is 0.73 also elevated. RBC folate is normal. * Patient also has multiple medical issues, for which IM/critical care on the case. * Please call neurology if any other concerns.
--- NOTE | 2019-10-31 15:57 | P.PN ---
Progress Note - Text Progress Note Date: 10/31/19 Presenting complaint: Short of breath Interval history: From the records: This is a 69 years old male With multiple medical problems as below. Patient is intubated and unresponsive and could not provide information so it was obtained from staff and medical records, no family at bedside. Patient Presents because the neighbors called 911/AMS 4 patient was dyspneic, and brought to the hospital patient became unresponsive with PEA in ambulance, CPR was in associated, he got 3 samples of epinephrine in the ambulance and 1 other dose of epinephrine in the hospital. His CPR downtown was about 20 minutes Patient also hypoglycemic and hypothermic and hypotensive , blood glucose was 20 h glucose D 50% with partial correction and was placed on D10% effusion, however his sugar jumped to 800 so D10%was stopped and currently glucose in around 300. He was placed on Jarad hugger and Currently he is on Levophed at 0.57 which is high dose showing leukocytosis of 12.9 and 19.7 K, hemoglobin 6.6 corrected to 9.2 after blood transfusion, platelets 46 and 50 5K. INR 4.5 and 3.9. PH was 6.9 and 7. 2. Creatinine 2.6 which are unknown baseline. Lactic acid 8.0 7.0. Elevated liver enzymes with AST 3652 and ALT 472 . Troponin is negative Hemoglobin was 6 and INR was 4 and he got 1 dose of vitamin K and 2 units of blood transfusion Patient got Zithromax and ceftriaxone in the emergency room, patient continued on Zosyn, Today-patient extubated today. On his atenolol. Propped up. Able to follow commands. Review of systems: Attempted for constitutional, cardiovascular, GI, pulmonary. relevant finding as above Active Medications Albuterol/Ipratropium (Duoneb 0.5 Mg-3 Mg/3 Ml Soln) 3 ml INHALATION RT-Q4H [facility] Last Admin: 10/31/19 11:57 Dose: 3 ml Documented by: Albuterol/Ipratropium (Duoneb 0.5 Mg-3 Mg/3 Ml Soln) 3 ml INHALATION RT-Q2H PRN PRN Reason: Shortness Of Breath Or Wheezing Chlorhexidine Gluconate (Peridex) 15 ml MUCOUS MEM BID [facility] Last Admin: 10/31/19 08:38 Dose: 15 ml Documented by: Enoxaparin Sodium (Lovenox) 30 mg SQ DAILY [facility] Last Admin: 10/31/19 08:39 Dose: 30 mg Documented by: Furosemide (Lasix) 80 mg IV 1000 ANTHONY Last Admin: 10/31/19 10:19 Dose: 80 mg Documented by: Hydromorphone HCl (Dilaudid) 0.5 mg IVP Q3HR PRN PRN Reason: Pain Last Admin: 10/30/19 04:33 Dose: 0.5 mg Documented by: Hydromorphone HCl (Dilaudid) 1 mg IVP Q4HR PRN PRN Reason: Pain Propofol 1,000 mg/ IV Solution 100 mls @ 0 mls/hr IV .Q0M [facility]; Protocol Last Titration: 10/31/19 08:00 Dose: 0 mcg/kg/min, 0 mls/hr Documented by: Norepinephrine Bitartrate 32 (mg/ Sodium Chloride) 250 mls @ 1.378 mls/hr IV .Q24H [facility]; Protocol Last Admin: 10/31/19 03:37 Dose: Not Given Documented by: Ceftriaxone Sodium 1 gm/ (Sodium Chloride) 50 mls @ 100 mls/hr IVPB Q24HR [facility] Last Admin: 10/31/19 11:44 Dose: 100 mls/hr Documented by: Lactulose (Cephulac) 30 gm PO BID [facility] Midodrine (Proamatine) 10 mg PO AC-TID [facility] Last Admin: 10/31/19 11:44 Dose: 10 mg Documented by: Miscellaneous Information (Potassium Per Protocol) 1 each MISCELLANE DAILY PRN; Protocol PRN Reason: Per Protocol Miscellaneous Information (Magnesium Per Protocol) 1 each MISCELLANE DAILY PRN; Protocol PRN Reason: Per Protocol Naloxone HCl (Narcan) 0.2 mg IV Q2M PRN PRN Reason: Opioid Reversal Pantoprazole Sodium (Protonix) 40 mg IVP DAILY [facility] Last Admin: 10/31/19 08:38 Dose: 40 mg Documented by: Rifaximin (Xifaxan) 550 mg PO BID [facility] Stop: 11/30/19 10:31 Last Admin: 10/31/19 11:44 Dose: 550 mg Documented by: On examination: VITAL SIGNS: 97.2, 95, 18, 127/48, 90% on 6 L GENERAL APPEARANCE: Propper in bed, awake, tired, with nasal cannula HEENT: Normal external appearance of nose and ear. Oral dry EYES: Pupils equal. Conjunctiva pale. NECK: JVD not raised. Mass not palpable. RESPIRATORY: Respiratory effort increased, decreased breath sounds,. Expiratory coarse crackles CARDIOVASCULAR: First and second sounds normal. Significant edema ABDOMEN: Soft. Liver and spleen not palpable. No tenderness. No mass palpable. PEG tube site appearance clean. Significant scrotal edema DERMATOLOGICAL: Stage II decubital ulcers NEUROLOGICAL: Awake, following simple commands. Weakness in all 4 limbs. PSYCHIATRY: Mood appears to be low INVESTIGATIONS, reviewed in the clinical context: White count 8.9 hemoglobin 10.5 platelets 18 potassium 2.9 bun 36 creatinine 41 albumin 1.3 Previous testing Chest [id number] infiltrate Computed tomography scan of the chest-bibasilar airspace disease, emphysema changes, chronic calcific pancreatitis, Computed tomography scan of the brain-old lacunar infarct in the jung radiata on the right, chronic changes EEG-suggestive of generalized cerebral dysfunction Assessment: -Status post cardiac arrest witnessed-downtime of about 12 minutes. 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 -acute hypoxic respiratory failure, on ventilator -extubated October 30 -Hypotensive and/or septic shock requiring pressor support-now on midodrine -Significant edema due to third spacing from severe hypoalbuminemia -Stage II decubitus ulcer -Metabolic encephalopathy Plan: -Extubated today. On IV ceftriaxone. Midodrine. On IV Lasix. Prognosis guarded.
[2019-10-31 17:04] LABS: ABG Base Excess -7.3 mmol/L; ABG HCO3 18 mmol/L (21-25); ABG PCO2 31 mmHg (35-45); ABG PH 7.37 (7.35-7.45); ABG PO2 84 mmHg (83-108); ABG TCO2 19 mmol/L (19-24)
[2019-10-31 17:05] LABS: Allen Test Performed? no
[2019-10-31 17:31] LABS: Glucose,Whole Blood 94 mg/dL (75-99)
[2019-10-31 20:40] LABS: Albumin 2.2 g/dL (3.5-5.0); Calcium 8.1 mg/dL (8.4-10.2); Potassium 3.1 mmol/L (3.5-5.1); Total Bilirubin 4.4 mg/dL (0.2-1.3); Total Protein 4.2 g/dL (6.3-8.2)
--- NOTE | 2019-10-31 22:08 | XR ---
EXAMINATION TYPE: XR chest 1V portable DATE OF EXAM: 10/31/2019 COMPARISON: Today HISTORY: Check tube placement TECHNIQUE: FINDINGS: There is nasogastric tube in the stomach. There is right jugular catheter with tip in the s uperior vena cava. There is some patchy airspace infiltrate or atelectasis in both lower lobes. There is no gross heart failure. I see no definite pleural effusion. IMPRESSION: Bilateral lower lobe pulmonary infiltrates and atelectasis unchanged compared to exam thi s morning.
[2019-10-31] MEDS ORDERED: POTASSIUM BICARBONATE/CIT AC 20 MEQ TABLET.EFF PO ONE (23:39)
[2019-11-01 00:08] LABS: Glucose,Whole Blood 96 mg/dL (75-99)
[2019-11-01] MEDS: NOREPINEPHRINE 32 MG in SODIUM CHLORIDE 0.9% 218 ML IV SCH (04:53)
[2019-11-01 05:00] LABS: Albumin 2.1 g/dL (3.5-5.0); Calcium 8.3 mg/dL (8.4-10.2); Total Bilirubin 4.9 mg/dL (0.2-1.3); Total Protein 4.3 g/dL (6.3-8.2)
[2019-11-01 05:08] LABS: Glucose,Whole Blood 78 mg/dL (75-99)
[2019-11-01 05:10] LABS: Potassium 3.8 mmol/L (3.5-5.1)
[2019-11-01 06:37] LABS: Anisocytosis Slight; Basophils % (A) 0 %; Eosinophils # (A) 0.3 k/uL (0-0.7); Eosinophils % (A) 3 %; HCT 27.7 % (39.0-53.0); HGB 8.8 gm/dL (13.0-17.5); Hypochromasia Moderate; Lymphocytes # (A) 0.8 k/uL (1.0-4.8); Lymphocytes % (A) 9 %; MCHC 31.8 g/dL (31.0-37.0); MCV 106.8 fL (80.0-100.0); Macrocytosis Marked; Mean Platelet Volume 14.8; Monocytes # (A) 0.5 k/uL (0-1.0); Monocytes % (A) 6 %; Neutrophils # (A) 6.6 k/uL (1.3-7.7); Neutrophils % (A) 80 %; RDW 18.7 % (11.5-15.5); WBC 8.3 k/uL (3.8-10.6)
[2019-11-01 06:38] LABS: Platelet Count 21 k/uL (150-450)
--- NOTE | 2019-11-01 07:09 | XR ---
EXAMINATION TYPE: XR chest 1V portable DATE OF EXAM: 11/01/2019 COMPARISON: 10/31/2019 HISTORY: SOB, Follow Up FINDINGS: Indwelling tubes and catheters are unchanged. No change in bibasilar opacities. Stable appearance of the cardio-mediastinal structures at this time. Pleural effusion unchanged. IMPRESSION: 1. Stable portable chest. Clinical correlation and follow up until resolution is recommended.
--- NOTE | 2019-11-01 07:31 | P.PN ---
Subjective Progress Note Date: 10/31/19 Principal diagnosis: Alcoholic liver disease, elevated liver enzymes, encephalopathy Patient is seen lying in bed no acute events as per the nursing staff. The patient is status post extubation. Objective - Vital Signs Vital signs: Vital Signs Temp 98.4 F 10/31/19 16:00 Pulse 99 10/31/19 19:47 Resp 21 10/31/19 19:00 BP 110/63 10/30/19 16:00 Pulse Ox 94 L 10/31/19 19:00 Intake & Output 10/31/19 10/31/19 11/01/19 06:59 18:59 06:59 Intake Total 2389.633 871.736 Output Total 245 235 Balance 2144.633 636.736 Weight 68.2 kg 68.2 kg Intake: IV 1786 289 Albumin Human 25% 50 ml 100 In Empty Bag 1 bag @ 50 mls/hr IVPB ONCE ONE Rx#: [id number] Pressure Bag 0.9 36 39 Sodium Chloride 0.9% 1, 750 150 000 ml @ 75 mls/hr IV . [id number] [facility] Rx#:[id number] Sodium Chloride 0.9% 1, 1000 000 ml @ 999 mls/hr IV . Q1H1M ONE Rx#:[id number] Intake, IV Titration 29.633 332.736 Amount Albumin Human 25% 50 ml 100 In Empty Bag 1 bag @ 50 mls/hr IVPB Q1H [facility] Rx#: [id number] Potassium Chloride 20 meq 200 In Water For Injection 1 100ml.bag @ 50 mls/hr IVPB Q2H [facility] Rx#: [id number] propofoL 1,000 mg In 29.633 32.736 Empty Bag 1 bag @ Titrate IV .Q0M [facility] Rx#: [id number] Tube Feeding 484 220 Other 90 30 Output: Urine 245 235 Other: Voiding Method Indwelling Catheter Indwelling Catheter ABP, PAP, CO, CI - Last Documented Arterial Blood Pressure 123/46 - Exam On physical examination, patient appears comfortable in no apparent distress. HEAD: Normocephalic, atraumatic. EYES: No scleral icterus. No conjunctival injection. MOUTH: No lesions, tongue midline. NECK: Trachea midline, no gross abnormalities. ABDOMEN: Soft, obese. Bowel sounds are positive. No organomegaly. No guarding or rigidity. EXTREMITIES: No pedal edema. SKIN: No rashes, no jaundice. NEUROLOGIC: Alert and following commands. - Labs CBC & Chem 7: 11/01/19 04:30 11/01/19 04:30 Labs: Abnormal Lab Results - Last 24 Hours (Table) 10/31/19 10/31/19 10/31/19 Range/Units 00:41 05:15 05:18 RBC (4.30-5.90) m/uL Hgb (13.0-17.5) gm/dL Hct (39.0-53.0) % MCV (80.0-100.0) fL RDW (11.5-15.5) % Plt Count (150-450) k/uL Lymphocytes # (1.0-4.8) k/uL Macrocytosis ABG pH 7.33 L (7.35-7.45) ABG pCO2 34 L (35-45) mmHg ABG pO2 76 L (83-108) mmHg ABG HCO3 18 L (21-25) mmol/L Potassium (3.5-5.1) mmol/L Chloride (98-107) mmol/L Carbon Dioxide (22-30) mmol/L BUN (9-20) mg/dL Creatinine (0.66-1.25) mg/dL Glucose (74-99) mg/dL POC Glucose (mg/dL) 164 H 140 H (75-99) mg/dL Calcium (8.4-10.2) mg/dL Total Bilirubin (0.2-1.3) mg/dL ALT (4-49) U/L Alkaline Phosphatase (38-126) U/L Ammonia (<30) umol/L Total Protein (6.3-8.2) g/dL Albumin (3.5-5.0) g/dL 10/31/19 10/31/19 10/31/19 Range/Units 05:19 05:19 05:41 RBC 3.20 L (4.30-5.90) m/uL Hgb 10.5 L (13.0-17.5) gm/dL Hct 33.7 L (39.0-53.0) % MCV 105.3 H (80.0-100.0) fL RDW 17.9 H (11.5-15.5) % Plt Count 18 L* (150-450) k/uL Lymphocytes # 0.7 L (1.0-4.8) k/uL Macrocytosis Marked A ABG pH (7.35-7.45) ABG pCO2 (35-45) mmHg ABG pO2 (83-108) mmHg ABG HCO3 (21-25) mmol/L Potassium 2.9 L (3.5-5.1) mmol/L Chloride 120 H (98-107) mmol/L Carbon Dioxide 18 L (22-30) mmol/L BUN 26 H (9-20) mg/dL Creatinine 3.41 H (0.66-1.25) mg/dL Glucose 129 H (74-99) mg/dL POC Glucose (mg/dL) (75-99) mg/dL Calcium 6.9 L (8.4-10.2) mg/dL Total Bilirubin 4.1 H (0.2-1.3) mg/dL ALT 125 H (4-49) U/L Alkaline Phosphatase 137 H (38-126) U/L Ammonia 146 H (<30) umol/L Total Protein 3.6 L (6.3-8.2) g/dL Albumin 1.3 L (3.5-5.0) g/dL 10/31/19 10/31/19 Range/Units 11:54 17:02 RBC (4.30-5.90) m/uL Hgb (13.0-17.5) gm/dL Hct (39.0-53.0) % MCV (80.0-100.0) fL RDW (11.5-15.5) % Plt Count (150-450) k/uL Lymphocytes # (1.0-4.8) k/uL Macrocytosis ABG pH (7.35-7.45) ABG pCO2 31 L (35-45) mmHg ABG pO2 (83-108) mmHg ABG HCO3 18 L (21-25) mmol/L Potassium (3.5-5.1) mmol/L Chloride (98-107) mmol/L Carbon Dioxide (22-30) mmol/L BUN (9-20) mg/dL Creatinine (0.66-1.25) mg/dL Glucose (74-99) mg/dL POC Glucose (mg/dL) 123 H (75-99) mg/dL Calcium (8.4-10.2) mg/dL Total Bilirubin (0.2-1.3) mg/dL ALT (4-49) U/L Alkaline Phosphatase (38-126) U/L Ammonia (<30) umol/L Total Protein (6.3-8.2) g/dL Albumin (3.5-5.0) g/dL Microbiology - Last 24 Hours (Table) 10/28/19 08:46 Urine Culture - Final Urine,Catheterized Aracelis glabrata 10/27/19 10:38 Blood Culture - Preliminary Blood No Growth after 96 hours Assessment and Plan (1) Elevated liver enzymes Narrative/Plan: 69-year-old male with a known history of alcoholism and alcoholic liver disease previously seen for anemia in 2019 with no findings of active bleed on EGD and colonoscopy who presented due to respiratory distress, altered mental status subsequently undergoing CPR for a cardiopulmonary arrest. He is seen in the ICU where he was noted to have marked elevation in his liver enzymes predominantly in a hepatocellular pattern with total bilirubin 2.3, alkaline phosphatase 186, AST 2432 and ALT 650. It is felt that elevation in liver enzymes is likely secondary to ischemia and shock liver. If the viral hepatitis panel is pending. Liver enzymes have profound to trend down. We'll to monitor and consider full liver serologies if liver enzymes remain persistently elevated. Suspicion is that patient has a degree of underlying liver fibrosis or possibly cirrhosis in the setting of alcohol abuse. AST and ALT markedly improved with total bilirubin slightly higher consistent with resolving ischemic hepatitis. Current Visit: Yes Status: Acute Code(s): R74.8 - ABNORMAL LEVELS OF OTHER SERUM ENZYMES SNOMED Code(s): 698762272 (2) Alcoholic liver disease Current Visit: Yes Status: Acute Code(s): K70.9 - ALCOHOLIC LIVER DISEASE, UNSPECIFIED SNOMED Code(s): 53875042 (3) Encephalopathy Narrative/Plan: Likely multifactorial secondary to metabolic encephalopathy and hepatic encephalopathy, ammonia markedly elevated today at 153 Will increase lactulose therapy. Current Visit: Yes Status: Acute Code(s): G93.40 - ENCEPHALOPATHY, UNSPECIFIED SNOMED Code(s): 75450477 Plan: Supportive care Okay to initiate feeding, sodium restricted as patient tolerates Lactulose therapy increased to elevated ammonia Continue to monitor CBC, BMP, LFTs Acute viral hepatitis panel negative Computed tomography scan of the liver with findings of chronic pancreatitis, thi ckened sigmoid and fatty filtration of the liver Continue ICU management Thank you for allowing us to participate in the care of the patient
[2019-11-01] MEDS ORDERED: VANCOMYCIN 1,250 MG in SODIUM CHLORIDE 0.9% 250 ML IVPB ONE (08:00)
[2019-11-01] MEDS: IPRATROPIUM-ALBUTEROL 3 ML NEB INHALATION SCH ×4 (08:50→20:34)
[2019-11-01] MEDS ORDERED: LACTULOSE 20 GM/30 ML CUP PO SCH (09:00)
--- NOTE | 2019-11-01 09:17 | P.PN ---
Subjective Progress Note Date: 11/01/19 Principal diagnosis: Cardiac arrest, acute respiratory failure This is a 69-year-old gentleman who follows with Dr. Smith as his primary care provider. He has a history of hypertension, alcoholism, previous history of staphylococcal pneumonia and respiratory failure requiring intubation and mechanical ventilation, dysphagia with previous PEG tube placement, chronic kidney disease, hypothyroidism, chronic pancreatitis, previous GI bleed, recurrent UTIs, ERCPs. He is residing at home. His neighbor was checking on him earlier this morning and found him to be having difficulty in breathing. EMS was called. Upon arrival patient was arousable. They put him in the back and the implants and then he lost pulses and was found to be an PEA. CPR was performed for 20 minutes prior to arriving to the hospital. He had received 3 rounds of epinephrine and was tubed in the field. He arrived pulseless. CPR continued and there was return of spontaneous circulation. According to EMS there is no family for this patient. He was subsequently transferred to the intensive care unit he was seen immediately upon arrival. He is intubated on mechanical ventilator with settings of assist control of 20, tidal volume 400, FiO2 50% and a PEEP of 5. Arterial blood gases on 50% FiO2 were 1 PaO2 of 121. PCO2 34. PH 7.24. He has received 3 L of fluid resuscitation. 2 A of bicarb were given. He is sedated on propofol at 30 mcg/kg/m. He is requiring norepinephrine at 0.55 mcg/kg/m. He received 1 dose of Zosyn. Right IJ catheter in place. Left femoral arterial line inserted. Scant urine output. White count 19.7. Hemoglobin 9.2. INR 3.9. Sodium 139. Potassium 3.5. Chloride 114. Bicarb 14. Creatinine 2.66. Lactic acid 8.3. ALT 472. AST 2522. Troponin negative 1. Glucose 380. Computed tomography scan of the brain revealed no acute intracranial abnormality. Old lacunar infarct in the jung radiata on the right. Atrophic change. Chronic white matter ischemic change. Computed tomography scan of the chest abdomen and pelvis revealed small bilateral effusions. Bibasilar airspace disease. Emphysematous changes with associated ground glass opacity may represent ongoing alveolitis. Mild pericardial fluid or thickening. Fatty infiltration of the liver. Evidence of chronic calcific pancreatitis. Thickening of the wall of the sigmoid colon. Possible colitis. Degenerative changes of the spine. On 10/30/2019 patient seen in follow-up in the intensive care unit, patient remains intubated on mechanical ventilator, current vent settings are assist- control with a rate of 16, tidal volume is 400, FiO2 is 40% and PEEP of 5, this morning his blood gases reveal pO2 of 82, pCO2 36, and pH of 7.39. Patient's sedation is currently on hold, he is on 0.9 normal saline at a rate of 75 ML per hour, Levaquin fatty is at 2 mics per minute. He is receiving tube feedings with vital high protein at a rate of 44 with a goal of 44 and standard water flushes. Yesterday we discontinued patient's Diprivan, patient is awake, and following simple commands, he is extremely weak he is not able to squeeze hands on command but he is nodding his head appropriately to verbal questioning. He denies any acute distress. Patient's sputum culture came back positive for presumptive staph aureus, and patient was started on vancomycin, he is also on Zosyn which we can discontinue. He has been afebrile. Patient has developed severe anasarca, pitting edema upper lower extremities, abdominal wall, and severe scrotal edema. History we gave the patient on dose of 25% albumin 25 g and followed it with 40 mg of IV Lasix. Patient has produced 632 mL in urine output in the last 24 hours and he still 2.8 L positive. His albumin on today's CMP is only 1.4, patient has chronic liver disease related to his history of alcoholism, other blood work has been reviewed showing white blood cell count of 10.5, hemoglobin of 10.6, sodium is 141, potassium is 3.3, chloride is 114, B1 of 27 and creatinine of 3.2. His renal profile continues to worsen. Liver enzymes are improving, AST down to 86, ALT is 188, and alkaline phosphatase is 153. His ammonia level is 95, patient is having diarrhea however he is getting lactulose 30 Musa 3 times daily. FMS was inserted. Yesterday patient was able to tolerate on pressure-support trial with a pressure support of 10 and CPAP of 5 for 2 hours. He was placed on assist-control mode of ventilation for the night. This morning we will give him another pressure-support trial. Vital signs are stable, patient is sinus mechanism with a controlled rate. On 10/31/2019 patient seen in follow-up in intensive care unit, he is currently sedated, on propofol infusion at 20 mics per kilo per minute, remains on hi [employer] ventilator, on assist-control with a rate of 16, TV 400, FiO2 of 40% and PEEP of 5, despite blood gases show pO2 of 76, pCO2 34, and pH of 7.33. Maintenance IV fluids 0.9 normal saline at a rate of 75 per hour, vital high protein tube feedings at a rate of 44 with a goal of 44. Yesterday patient was given a sedation holiday, he was awake and following commands although he was severely generally weak, he was given a spontaneous breathing trial with pressure support of 10 and CPAP of 5, and patient did quite well, and remained on pressure-support trial all day and was placed back on assist control mode for the night. This morning we will proceed with the same, will wake up the patient and do another pressure-support trial with pressure support of 10 and CPAP of 5. Today's chest x-ray has been reviewed, showing interval improvement in aeration of the left lower lobe. Today's labs have been reviewed, with metal, Z.9, hemoglobin is 10.5, platelet count is further decreased and is down to 18,000, no obvious signs of bleeding, sodium is 143, potassium is 2.9, chloride is 120, CO2 is 18, BUN is 26, creatinine is 3.4, AST is 50, ALT is 125, alkaline phosphatase is 137. Albumin is 1.3. Ammonia level is 146, patient remains on lactulose 3 times daily, and patient is having massive liquid diarrhea and the nursing reports that patient put out approximately 1.5 L in liquid stool in the last 24 hours. Patient has a severe generalized anasarca, pitting edema involving his torso, upper and lower extremities, he has significant scrotal edema. Nephrology is on, in patient has been off vasopressors and the last 48 hours, and nephrology starting diuretics with 80 mg of Lasix. On 11/01/2019 patient seen in follow-up in the intensive care unit, yesterday patient was successfully weaned and extubated the mechanical ventilator, today he is on 6 L of oxygen the pulse ox of 94-95%. Failed his swallow evaluation, he remains nothing by mouth, NG tube has been inserted to be able to administer oral medications. Patient is quite weak, he has a weak cough he is unable to cl ear secretions. He is a high risk for aspiration. He is on Rocephin for MSSA pneumonia. He has severe anasarca, third spacing, significant pitting edema involving his trunk, upper and lower extremities, and scrotal edema. Currently on 0.9 normal saline at a rate of KVO, he continues to have massive diarrhea, yesterday because of back his lactulose to once daily, added Xifaxan, lactulose was increased back up to twice a day by GI service however nursing reports patient is still having significant diarrhea, put out 1200 in liquid stool. He is also leaking around the FMS insertion site. He is not on any vasopressor support, appears dehydrated, oral mucous membranes are extremely dry, his blood pressure is 126/51, he had some episodes of hypothermia last night. Today's chest x-ray shows bibasilar opacities likely related to aspiration pneumonia. Nephrology is following, and patient's renal status is slightly worsening every day, today's labs show BUN of 33, and creatinine of 3.89, sodium is up to 146, potassium is 3.8, chloride is 121, CO2 is 18, ammonia level is 235. Patient is awake, is quite weak, but he is trying to follow basic commands, white blood cell count is 8.3, hemoglobin is 8.8, platelet count is 21. Patient was given some albumin and 2 doses of IV Lasix per nephrology, and his urine output is in the order of 22 at 40 ML per hour. Lung sounds reveal diminished breath sounds with scattered rhonchi, patient has upper airway congestion and his cough is poor Objective - Vital Signs Vital signs: Vital Signs Temp 96.4 F L 11/01/19 00:00 Pulse 96 11/01/19 09:01 Resp 17 11/01/19 07:00 BP 110/63 10/30/19 16:00 Pulse Ox 95 11/01/19 07:00 Intake & Output 10/31/19 11/01/19 11/01/19 18:59 06:59 18:59 Intake Total 871.736 33 3 Output Total 235 1608 30 Balance 636.736 -1735 -27 Weight 68.2 kg 68.6 kg Intake: IV 289 33 3 Albumin Human 25% 50 ml 100 In Empty Bag 1 bag @ 50 mls/hr IVPB ONCE ONE Rx#: [id number] Pressure Bag 0.9 39 33 3 Sodium Chloride 0.9% 1, 150 000 ml @ 75 mls/hr IV . [id number] COUNTS INCLUDE 234 BEDS AT THE [facility] Rx#:[id number] Intake, IV Titration 332.736 Amount Albumin Human 25% 50 ml 100 In Empty Bag 1 bag @ 50 mls/hr IVPB Q1H COUNTS INCLUDE 234 BEDS AT THE [facility] Rx#: [id number] Potassium Chloride 20 meq 200 In Water For Injection 1 100ml.bag @ 50 mls/hr IVPB Q2H ANTHONY Rx#: [id number] propofoL 1,000 mg In 32.736 Empty Bag 1 bag @ Titrate IV .Q0M COUNTS INCLUDE 234 BEDS AT THE [facility] Rx#: [id number] Tube Feeding 220 Other 30 Output: Urine 235 408 30 Stool 1200 Other: Voiding Method Indwelling Catheter Indwelling Catheter ABP, PAP, CO, CI - Last Documented Arterial Blood Pressure 126/51 - Exam GENERAL EXAM: Alert, 69-year-old white male, extremely weak, he is on 6 L of oxygen with a pulse ox of 94-95%, NG tube is in place as the patient failed swallow evaluation, he has a very weak cough, he has audible upper airway congestion Patient has generalized swelling and upper and lower extremities, and weeping from the lower extremities and small open areas on upper arms. Patient appears older than stated age, quite pale and chronically ill appearing HEAD: Normocephalic/atraumatic. EYES: Normal reaction of pupils, equal size. Conjunctiva pink, sclera white. NOSE: Clear with pink turbinates. NG tube is in place to low intermittent suction THROAT: No erythema or exudates. NECK: No masses, no JVD, no thyroid enlargement, no adenopathy. CHEST: No chest wall deformity. Symmetrical expansion. LUNGS: Equal air entry with rhonchi CVS: Regular rate and rhythm, normal S1 and S2, no gallops, no murmurs, no rubs ABDOMEN: Soft, nontender. No hepatosplenomegaly, normal bowel sounds, no guarding or rigidity. EXTREMITIES: No clubbing, no cyanosis, 2+ pulses and upper and lower extr emities. Generalized anasarca, swelling, 2+ lower extremity edema, 1+ upper extremity edema, edema involving abdominal wall, and severe scrotal edema MUSCULOSKELETAL: Muscle strength and tone normal. SPINE: No scoliosis or deformity SKIN: No rashes CENTRAL NERVOUS SYSTEM: Alert and oriented -1. No focal deficits, tone is normal in all 4 extremities. PSYCHIATRIC: Alert and oriented -1. Appropriate affect. Intact judgment and insight. - Labs CBC & Chem 7: 11/01/19 04:30 11/01/19 04:30 Labs: Abnormal Lab Results - Last 24 Hours (Table) 10/31/19 10/31/19 10/31/19 Range/Units 11:54 17:02 20:20 RBC (4.30-5.90) m/uL Hgb (13.0-17.5) gm/dL Hct (39.0-53.0) % MCV (80.0-100.0) fL RDW (11.5-15.5) % Plt Count (150-450) k/uL Lymphocytes # (1.0-4.8) k/uL Macrocytosis ABG pCO2 31 L (35-45) mmHg ABG HCO3 18 L (21-25) mmol/L Sodium 146 H (137-145) mmol/L Potassium 3.1 L (3.5-5.1) mmol/L Chloride 120 H (98-107) mmol/L Carbon Dioxide 18 L (22-30) mmol/L BUN 29 H (9-20) mg/dL Creatinine 3.81 H (0.66-1.25) mg/dL Glucose (74-99) mg/dL POC Glucose (mg/dL) 123 H (75-99) mg/dL Calcium 8.1 L (8.4-10.2) mg/dL Total Bilirubin 4.4 H (0.2-1.3) mg/dL ALT 81 H (4-49) U/L Ammonia (<30) umol/L Total Protein 4.2 L (6.3-8.2) g/dL Albumin 2.2 L (3.5-5.0) g/dL 11/01/19 11/01/19 11/01/19 Range/Units 04:30 04:30 04:30 RBC 2.60 L (4.30-5.90) m/uL Hgb 8.8 L D (13.0-17.5) gm/dL Hct 27.7 L (39.0-53.0) % MCV 106.8 H (80.0-100.0) fL RDW 18.7 H (11.5-15.5) % Plt Count 21 L (150-450) k/uL Lymphocytes # 0.8 L (1.0-4.8) k/uL Macrocytosis Marked A ABG pCO2 (35-45) mmHg ABG HCO3 (21-25) mmol/L Sodium 146 H (137-145) mmol/L Potassium (3.5-5.1) mmol/L Chloride 121 H (98-107) mmol/L Carbon Dioxide 18 L (22-30) mmol/L BUN 33 H (9-20) mg/dL Creatinine 3.89 H (0.66-1.25) mg/dL Glucose 72 L (74-99) mg/dL POC Glucose (mg/dL) (75-99) mg/dL Calcium 8.3 L (8.4-10.2) mg/dL Total Bilirubin 4.9 H (0.2-1.3) mg/dL ALT 70 H (4-49) U/L Ammonia 235 H (<30) umol/L Total Protein 4.3 L (6.3-8.2) g/dL Albumin 2.1 L (3.5-5.0) g/dL Microbiology - Last 24 Hours (Table) 10/28/19 08:46 Urine Culture - Final Urine,Catheterized Aracelis glabrata 10/27/19 10:38 Blood Culture - Preliminary Blood No Growth after 96 hours Assessment and Plan Plan: Assessment: 1 Cardiac arrest with approximate 20 minutes of CPR, for epinephrine and subsequent return of spontaneous circulation. 2 Acute respiratory arrest secondary to above requiring intubation mechanical ventilatory support, patient was intubated on 10/27/2019, remains intubated today on 10/30/2019. Did tolerate 2 hours a pressure support trials yesterday on 10/29/2019. Patient was successfully weaned and extubate if from mechanical ventilator on 10/31/2019, he is on 6 L of oxygen on 11/01/2019, quite weak, high risk for aspiration, as a weak cough, and audible upper airway congestion 3 Acute hypotension with suspected septic shock requiring norepinephrine, im proved, and patient is off vasopressor support, midodrine was added, serum cortisol level is 51. Patient is off the vasopressors on 11/01/2019 5 MSSA pneumonia, urine culture showing yeast species, was initially covered with vancomycin, switched to Rocephin 6 shock liver secondary to above, improving 7 Acute on chronic renal failure, worsening 8 Leukocytosis, improved 9 Coagulopathy secondary to shock liver 10 Chronic pancreatitis 11 History of alcoholism 11 Chronic normocytic anemia 12 Previous history of ventilatory dependent respiratory failure secondary to MSSA pneumonia 13 Chronic dysphagia secondary to vocal cord injury with previous PEG tube placement 14 History of previous GI bleed 15 Cerebral atrophy along with chronic small vessel ischemia 16 Poor overall functional performance based on the above-mentioned multiple comorbidities 17 thrombocytopenia, hypoalbuminemia, severe, related to chronic liver disease and sepsis 18 elevated ammonia level, and despite high liquid stool output from being on lactulose and Xifaxan his ammonia level is trending up 19 severe generalized weakness, weak cough, failed a swallow evaluation, and patient is a high risk for aspiration and reintubation 20 hypernatremia related to free water deficit, intravascular depletion, related massive liquid diarrhea, will cut back to lactulose Plan: We'll switch IV fluids to D5W at a rate of 40, free water flushes via NG tube at 200 ML every 6 hours, keep patient nothing by mouth would not start tube feedings right now. he is extremely weak and he is a high risk for aspiration and reintubation. We spoke to the assigned legal guardian today, and apparently the court hearing is not for next several days however we updated the guardian about patient's current condition and high risk for reintubation and clinical deterioration. We recommended for the patient to be made DO NOT RESUSCITATE based on his multiple chronic comorbidities, multisystem organ dysfunction, quite severe general medical debility, and possibility of hemodialysis. We thought that patient would not tolerate hemodialysis. The guardian is supposed to update Nursery Manager Sari and give him our recommendations. We will continue to support we treat the patient in the ICU. Prognosis is quite guarded. I performed a history & physical examination of the patient and discussed their management with my nurse practitioner, Ashley Vigil. I reviewed the nurse practitioner's note and agree with the documented findings and plan of care. Lung sounds are positive for diminished breath sounds. The findings and the impression was discussed with the patient. I attest to the documentation by the nurse practitioner. Critical care time is greater than 30 minutes Time with Patient: Greater than 30
[2019-11-01] MEDS: LACTULOSE 20 GM/30 ML CUP PO SCH (09:18)
[2019-11-01] MEDS: ENOXAPARIN 30 MG/0.3 ML SYRINGE SQ SCH (09:18)
[2019-11-01] MEDS: MIDODRINE 5 MG TAB PO SCH ×3 (09:18→17:55)
[2019-11-01] MEDS: RIFAXIMIN 550 MG TABLET PO SCH ×2 (09:18→20:23)
[2019-11-01] MEDS: PANTOPRAZOLE 40 MG/10 ML VIAL IVP SCH (09:18)
--- NOTE | 2019-11-01 10:08 | P.PN ---
Subjective Patient is seen in follow-up for acute kidney injury on chronic kidney disease. Renal function stable. Patient received 2 doses of IV albumin and 2 doses of IV Lasix 80 mg yesterday. He does respond to IV Lasix initially but the urine output begins to taper 2 or 3 hours after. He remains edematous. He was extubated yesterday. Patient is quite confused. Ammonia level high. Maintained on lactulose. Vital signs are stable. General: Appears lethargic. Nonresponsive. HEENT: Head exam is unremarkable. Neck is without jugular venous distension. NG tube noted. LUNGS: Breath sounds decreased. Scattered rhonchi. HEART: Rate and Rhythm are regular. ABDOMEN: Soft, nontender. EXTREMITITES: 3+ edema. Severe scrotal edema noted. Objective - Vital Signs Vital signs: Vital Signs Temp 96.4 F L 11/01/19 00:00 Pulse 96 11/01/19 09:01 Resp 17 11/01/19 07:00 BP 110/63 10/30/19 16:00 Pulse Ox 95 11/01/19 07:00 Intake & Output 10/31/19 11/01/19 11/01/19 18:59 06:59 18:59 Intake Total 871.736 33 3 Output Total 235 1608 30 Balance 636.736 -1575 -27 Weight 68.2 kg 68.6 kg Intake: IV 289 33 3 Albumin Human 25% 50 ml 100 In Empty Bag 1 bag @ 50 mls/hr IVPB ONCE ONE Rx#: [id number] Pressure Bag 0.9 39 33 3 Sodium Chloride 0.9% 1, 150 000 ml @ 75 mls/hr IV . [id number] ANTHON[facility] Rx#:[id number] Intake, IV Titration 332.736 Amount Albumin Human 25% 50 ml 100 In Empty Bag 1 bag @ 50 mls/hr IVPB Q1H [facility] Rx#: [id number] Potassium Chloride 20 meq 200 In Water For Injection 1 100ml.bag @ 50 mls/hr IVPB Q2H [facility] Rx#: [id number] propofoL 1,000 mg In 32.736 Empty Bag 1 bag @ Titrate IV .Q0M [facility] Rx#: [id number] Tube Feeding 220 Other 30 Output: Urine 235 408 30 Stool 1200 Other: Voiding Method Indwelling Catheter Indwelling Catheter ABP, PAP, CO, CI - Last Documented Arterial Blood Pressure 126/51 - Labs CBC & Chem 7: 11/01/19 04:30 11/01/19 04:30 Labs: Abnormal Lab Results - Last 24 Hours (Table) 10/31/19 10/31/19 10/31/19 Range/Units 11:54 17:02 20:20 RBC (4.30-5.90) m/uL Hgb (13.0-17.5) gm/dL Hct (39.0-53.0) % MCV (80.0-100.0) fL RDW (11.5-15.5) % Plt Count (150-450) k/uL Lymphocytes # (1.0-4.8) k/uL Macrocytosis ABG pCO2 31 L (35-45) mmHg ABG HCO3 18 L (21-25) mmol/L Sodium 146 H (137-145) mmol/L Potassium 3.1 L (3.5-5.1) mmol/L Chloride 120 H (98-107) mmol/L Carbon Dioxide 18 L (22-30) mmol/L BUN 29 H (9-20) mg/dL Creatinine 3.81 H (0.66-1.25) mg/dL Glucose (74-99) mg/dL POC Glucose (mg/dL) 123 H (75-99) mg/dL Calcium 8.1 L (8.4-10.2) mg/dL Total Bilirubin 4.4 H (0.2-1.3) mg/dL ALT 81 H (4-49) U/L Ammonia (<30) umol/L Total Protein 4.2 L (6.3-8.2) g/dL Albumin 2.2 L (3.5-5.0) g/dL 11/01/19 11/01/19 11/01/19 Range/Units 04:30 04:30 04:30 RBC 2.60 L (4.30-5.90) m/uL Hgb 8.8 L D (13.0-17.5) gm/dL Hct 27.7 L (39.0-53.0) % MCV 106.8 H (80.0-100.0) fL RDW 18.7 H (11.5-15.5) % Plt Count 21 L (150-450) k/uL Lymphocytes # 0.8 L (1.0-4.8) k/uL Macrocytosis Marked A ABG pCO2 (35-45) mmHg ABG HCO3 (21-25) mmol/L Sodium 146 H (137-145) mmol/L Potassium (3.5-5.1) mmol/L Chloride 121 H (98-107) mmol/L Carbon Dioxide 18 L (22-30) mmol/L BUN 33 H (9-20) mg/dL Creatinine 3.89 H (0.66-1.25) mg/dL Glucose 72 L (74-99) mg/dL POC Glucose (mg/dL) (75-99) mg/dL Calcium 8.3 L (8.4-10.2) mg/dL Total Bilirubin 4.9 H (0.2-1.3) mg/dL ALT 70 H (4-49) U/L Ammonia 235 H (<30) umol/L Total Protein 4.3 L (6.3-8.2) g/dL Albumin 2.1 L (3.5-5.0) g/dL Microbiology - Last 24 Hours (Table) 10/28/19 08:46 Urine Culture - Final Urine,Catheterized Aracelis glabrata 10/27/19 10:38 Blood Culture - Preliminary Blood No Growth after 96 hours Assessment and Plan Plan: Assessment: 1. Acute kidney injury secondary to ATN secondary to cardiac arrest. Creatinine 3.89 today. 2. Chronic kidney disease stage III Baseline creatinine 1.8-2 secondary to nephrosclerosis. 3. Status post cardiac arrest. 4. Hypokalemia from poor intake. 5. Metabolic acidosis secondary to acute kidney injury. 6. Volume overload. Partially due to severe hypoalbuminemia causing third spacing. 7. Mild hypernatremia secondary to lack of oral water intake. Plan: Repeat 25 g IV albumin 2 doses today. Maintain IV Lasix 80 mg twice daily. Start D5W at 50 mL an hour. Monitor vancomycin level. Dose to be adjusted for renal function. Await final guardian decision. Patient may possibly be comfort care. If not, will initiate renal replacement therapy due to severe volume overload. Case discussed with the sweetbread trimmer. Prognosis guarded.
[2019-11-01] MEDS: ALBUMIN HUMAN 25% 50 ML in EMPTY BAG 1 BAG IVPB SCH ×4 (10:28→21:27)
[2019-11-01] MEDS: DEXTROSE 5% IN WATER 1,000 ML IV SCH (10:29)
[2019-11-01] MEDS: FUROSEMIDE 10 MG/ML 10 ML VIAL IV SCH ×2 (11:49→22:02)
--- NOTE | 2019-11-01 15:48 | PN ---
PROGRESS NOTE FOLLOW-UP NOTE: This patient is extubated today. He appears confused and is not responsive. His ammonia levels are high. On exam, he remains in sinus rhythm. Blood pressure is 130/55. Heart rate is 90 beats per minute. Chest exam reveals good air entry. Heart exam reveals first and second heart sounds. No gallop. Examination of extremities did not reveal any edema. Labs show that the BUN is 33, creatinine is 3.89. AST, ALT are improving. Ammonia level is high. Albumin level is low. ASSESSMENT: Status post cardiorespiratory arrest. No cardiac intervention at this time. We are going to see the patient on a p.r.n. basis. MMAMANUELL / HARPERN: [id number] /
--- NOTE | 2019-11-01 19:14 | P.PN ---
Subjective Progress Note Date: 10/30/19 Principal diagnosis: Alcoholic liver disease, elevated liver enzymes, encephalopathy Patient is seen lying in bed no acute events as per the nursing staff. Objective - Vital Signs Vital signs: Vital Signs Temp 98.0 F 10/30/19 12:00 Pulse 87 10/30/19 13:00 Resp 14 10/30/19 13:00 BP 110/63 10/30/19 13:00 Pulse Ox 88 L 10/30/19 13:00 Intake & Output 10/29/19 10/30/19 10/30/19 18:59 06:59 18:59 Intake Total 6666.519 5338.181 1100 Output Total 256 376 120 Balance 7725.058 4595.181 980 Weight 66.5 kg Intake: IV 936 1286 468 Albumin Human 25% 50 ml 50 In Empty Bag 1 bag @ 50 mls/hr IVPB ONCE ONE Rx#: [id number] Dextrose 5% in Water 1, 225 000 ml @ 75 mls/hr IV . [id number] [facility] with Sodium Bicarb (1 Meq/ml) 150 ml Rx#:[id number] Piperacillin-Tazobactam 3 100 100 .375 gm In Sodium Chloride 0.9% 100 ml @ 25 mls/hr IVPB Q8H [facility] Rx#: [id number] Pressure Bag 0.9 36 36 18 Sodium Chloride 0.9% 1, 525 900 450 000 ml @ 75 mls/hr IV . [id number] [facility] Rx#:[id number] Vancomycin 1,250 mg In 250 Sodium Chloride 0.9% 250 ml @ 125 mls/hr IVPB ONCE ONE Rx#:[id number] Intake, IV Titration 23.907 11.181 250 Amount Norepinephrine 32 mg In 23.907 11.181 Sodium Chloride 0.9% 218 ml @ 0.05 MCG/KG/MIN 1. 378 mls/hr IV .Q24H [facility] Rx#:[id number] Vancomycin 1,250 mg In 250 Sodium Chloride 0.9% 250 ml @ 125 mls/hr IVPB ONCE ONE Rx#:[id number] Tube Feeding 416 528 352 Other 180 90 30 Output: Urine 256 376 120 Other: Voiding Method Indwelling Catheter Indwelling Catheter # Bowel Movements 1 1 ABP, PAP, CO, CI - Last Documented Arterial Blood Pressure 134/59 - Exam On physical examination, patient appears comfortable in no apparent distress. HEAD: Normocephalic, atraumatic. EYES: No scleral icterus. No conjunctival injection. MOUTH: No lesions, tongue midline. NECK: Trachea midline, no gross abnormalities. ABDOMEN: Soft, obese. Bowel sounds are positive. No organomegaly. No guarding or rigidity. EXTREMITIES: No pedal edema. SKIN: No rashes, no jaundice. NEUROLOGIC: Alert and following commands. - Labs CBC & Chem 7: 11/01/19 04:30 11/01/19 04:30 Labs: Abnormal Lab Results - Last 24 Hours (Table) 10/29/19 10/29/19 10/29/19 Range/Units 15:35 17:57 23:54 RBC (4.30-5.90) m/uL Hgb (13.0-17.5) gm/dL Hct (39.0-53.0) % MCV (80.0-100.0) fL RDW (11.5-15.5) % Plt Count (150-450) k/uL PT (9.0-12.0) sec INR (<1.2) Potassium 3.4 L (3.5-5.1) mmol/L Chloride (98-107) mmol/L BUN (9-20) mg/dL Creatinine (0.66-1.25) mg/dL Glucose (74-99) mg/dL POC Glucose (mg/dL) 122 H 132 H (75-99) mg/dL Calcium (8.4-10.2) mg/dL Total Bilirubin (0.2-1.3) mg/dL AST (17-59) U/L ALT (4-49) U/L Alkaline Phosphatase (38-126) U/L Ammonia (<30) umol/L Total Protein (6.3-8.2) g/dL Albumin (3.5-5.0) g/dL 10/30/19 10/30/19 10/30/19 Range/Units 04:45 04:45 04:45 RBC 3.09 L (4.30-5.90) m/uL Hgb 10.6 L (13.0-17.5) gm/dL Hct 31.5 L (39.0-53.0) % MCV 101.9 H (80.0-100.0) fL RDW 17.8 H (11.5-15.5) % Plt Count 23 L (150-450) k/uL PT (9.0-12.0) sec INR (<1.2) Potassium 3.3 L (3.5-5.1) mmol/L Chloride 114 H (98-107) mmol/L BUN 27 H (9-20) mg/dL Creatinine 3.22 H (0.66-1.25) mg/dL Glucose 117 H (74-99) mg/dL POC Glucose (mg/dL) (75-99) mg/dL Calcium 6.6 L (8.4-10.2) mg/dL Total Bilirubin 3.9 H (0.2-1.3) mg/dL AST 86 H (17-59) U/L ALT 188 H (4-49) U/L Alkaline Phosphatase 153 H (38-126) U/L Ammonia 95 H (<30) umol/L Total Protein 3.5 L (6.3-8.2) g/dL Albumin 1.4 L (3.5-5.0) g/dL 10/30/19 10/30/19 10/30/19 Range/Units 05:53 11:05 11:45 RBC (4.30-5.90) m/uL Hgb (13.0-17.5) gm/dL Hct (39.0-53.0) % MCV (80.0-100.0) fL RDW (11.5-15.5) % Plt Count (150-450) k/uL PT 16.5 H (9.0-12.0) sec INR 1.7 H (<1.2) Potassium (3.5-5.1) mmol/L Chloride (98-107) mmol/L BUN (9-20) mg/dL Creatinine (0.66-1.25) mg/dL Glucose (74-99) mg/dL POC Glucose (mg/dL) 129 H 132 H (75-99) mg/dL Calcium (8.4-10.2) mg/dL Total Bilirubin (0.2-1.3) mg/dL AST (17-59) U/L ALT (4-49) U/L Alkaline Phosphatase (38-126) U/L Ammonia (<30) umol/L Total Protein (6.3-8.2) g/dL Albumin (3.5-5.0) g/dL Microbiology - Last 24 Hours (Table) 10/27/19 10:38 Blood Culture - Preliminary Blood No Growth after 72 hours 10/28/19 08:46 Urine Culture - Preliminary Urine,Catheterized Yeast species 10/27/19 09:12 Gram Stain - Final Sputum Sputum Culture - Final Staphylococcus aureus Assessment and Plan (1) Elevated liver enzymes Narrative/Plan: 69-year-old male with a known history of alcoholism and alcoholic liver disease previously seen for anemia in 2019 with no findings of active bleed on EGD and colonoscopy who presented due to respiratory distress, altered mental status subsequently undergoing CPR for a cardiopulmonary arrest. He is seen in the ICU where he was noted to have marked elevation in his liver enzymes predominantly in a hepatocellular pattern with total bilirubin 2.3, alkaline phosphatase 186, AST 2432 and ALT 650. It is felt that elevation in liver enzymes is likely secondary to ischemia and shock liver. If the viral hepatitis panel is pending. Liver enzymes have profound to trend down. We'll to monitor and consider full liver serologies if liver enzymes remain persistently elevated. Suspicion is that patient has a degree of underlying liver fibrosis or possibly cirrhosis in the setting of alcohol abuse. AST and ALT markedly improved with total bilirubin slightly higher consistent with resolving ischemic hepatitis. Current Visit: Yes Status: Acute Code(s): R74.8 - ABNORMAL LEVELS OF OTHER SERUM ENZYMES SNOMED Code(s): 502252258 (2) Alcoholic liver disease Current Visit: Yes Status: Acute Code(s): K70.9 - ALCOHOLIC LIVER DISEASE, UNSPECIFIED SNOMED Code(s): 84930780 Plan: Supportive care Okay to initiate feeding, sodium restricted as patient tolerates Lactulose therapy increased to elevated ammonia Continue to monitor CBC, BMP, LFTs Acute viral hepatitis panel negative Computed tomography scan of the liver with findings of chronic pancreatitis, thickened sigmoid and fatty filtration of the liver Continue ICU management Thank you for allowing us to participate in the care of the patient
--- NOTE | 2019-11-01 20:09 | PN ---
PROGRESS NOTE DATE OF DICTATION: 11/01/2019 This patient is a 69-year-old white male with history of alcoholic cirrhosis of the liver, admitted to hospital post cardiac arrest with acute respiratory failure. The patient developed acute ischemic hepatitis with significant elevation of serum transaminases that are gradually improving. The patient is very lethargic. He was noted to have elevated ammonia level and currently remains on lactulose as well as Xifaxan. FMS in place with significant amount of thick liquid stool noted. PHYSICAL EXAMINATION: Vital signs show a blood pressure of 121/45, pulse rate 90, temperature 96.3. HEENT examination unremarkable. Conjunctivae pink. Sclerae anicteric. Oral cavity no lesions. NECK: No JVD or lymph node enlargement. CHEST: Clear to auscultation. HEART: Regular rate and rhythm. ABDOMEN: Soft. Bowel sounds are positive. No organomegaly. EXTREMITIES: Trace pedal edema. FMS in place. NEUROLOGIC: Very lethargic. LABS: Labs from today show WBC 8.3, hemoglobin 8.8, platelets 21,000. Bilirubin is 1.4 and T- bilirubin is 4.9. AST and ALT are 38 and 70, respectively. Alkaline phosphatase 101, albumin 2.1. IMPRESSION: 1. Status post cardiac arrest, being monitored in the intensive care unit. 2. Acute kidney injury secondary to hypoperfusion superimposed on chronic kidney disease. 3. History of underlying alcoholic cirrhosis of the liver with significant elevation of serum transaminases secondary to acute ischemic hepatitis which are gradually improving. 4. Hyperbilirubinemia, probably cholestatic in nature, secondary to underlying liver decompensation. 5. Altered mental status hepatic encephalopathy, presently on lactulose and Xifaxan. RECOMMENDATIONS: 1. Continue with symptomatic and supportive care. 2. Agree with IV albumin infusions. 3. Continue lactulose as well as Xifaxan for now. 4. Monitor ammonia on a close basis. 5. As per the nursing staff, awaiting decision by his legal guardian, considering comfort care at this time. Will follow with you closely. Thank you for this consultation. ENRIQUE / HARPERN: [id number] /
[2019-11-01 20:52] LABS: Glucose,Whole Blood 106 mg/dL (75-99)
[2019-11-01 21:15] LABS: Calcium 8.6 mg/dL (8.4-10.2); Magnesium 2.3 mg/dL (1.6-2.3)
[2019-11-01 21:20] LABS: Potassium 4.3 mmol/L (3.5-5.1)
[2019-11-02 00:32] LABS: Glucose,Whole Blood 98 mg/dL (75-99)
[2019-11-02 04:58] LABS: Anisocytosis Slight; Basophils # (A) 0.1 k/uL (0-0.2); Basophils % (A) 1 %; Eosinophils # (A) 0.2 k/uL (0-0.7); Eosinophils % (A) 3 %; HCT 23.4 % (39.0-53.0); Hypochromasia Moderate; Lymphocytes # (A) 1.1 k/uL (1.0-4.8); Lymphocytes % (A) 14 %; MCH 32.9 pg (25.0-35.0); MCHC 31.1 g/dL (31.0-37.0); MCV 105.6 fL (80.0-100.0); Macrocytosis Marked; Mean Platelet Volume 14.5; Monocytes # (A) 0.4 k/uL (0-1.0); Monocytes % (A) 5 %; Neutrophils # (A) 6.3 k/uL (1.3-7.7); Neutrophils % (A) 75 %; RBC 2.22 m/uL (4.30-5.90); RDW 18.5 % (11.5-15.5); WBC 8.3 k/uL (3.8-10.6)
[2019-11-02 05:03] LABS: HGB 7.3 gm/dL (13.0-17.5); Platelet Count 26 k/uL (150-450)
[2019-11-02 05:39] LABS: Albumin 2.5 g/dL (3.5-5.0); Calcium 8.8 mg/dL (8.4-10.2); Total Protein 4.5 g/dL (6.3-8.2)
[2019-11-02 05:48] LABS: Potassium 2.7 mmol/L (3.5-5.1)
--- NOTE | 2019-11-02 06:13 | XR ---
EXAMINATION TYPE: XR chest 1V portable DATE OF EXAM: 11/02/2019 HISTORY: Tube placement. REFERENCE: Previous study dated 11/01/2019. FINDINGS: There has been an ACDF of the lower cervical spine. The patient is NG tube and right internet sales director al jugular catheter remain in place, unchanged in appearance. There is worsening bibasilar airspace disease. There is a small left effusion. Heart size upper limit s of normal. IMPRESSION: WORSENING BIBASILAR AIRSPACE DISEASE.
[2019-11-02] MEDS: MIDODRINE 5 MG TAB PO SCH ×3 (06:34→17:39)
[2019-11-02] MEDS: POTASSIUM CHLORIDE 20 MEQ in WATER FOR INJECTION 1 100ML.BAG IVPB SCH ×5 (06:34→22:16)
[2019-11-02] MEDS: DEXTROSE 5% IN WATER 1,000 ML IV SCH (06:36)
[2019-11-02] MEDS: IPRATROPIUM-ALBUTEROL 3 ML NEB INHALATION SCH ×4 (08:26→19:18)
--- NOTE | 2019-11-02 09:47 | P.PN ---
Subjective Progress Note Date: 11/02/19 Principal diagnosis: Cardiac arrest, acute respiratory failure This is a 69-year-old gentleman who follows with Dr. Smith as his primary care provider. He has a history of hypertension, alcoholism, previous history of staphylococcal pneumonia and respiratory failure requiring intubation and mechanical ventilation, dysphagia with previous PEG tube placement, chronic kidney disease, hypothyroidism, chronic pancreatitis, previous GI bleed, recurrent UTIs, ERCPs. He is residing at home. His neighbor was checking on him earlier this morning and found him to be having difficulty in breathing. EMS was called. Upon arrival patient was arousable. They put him in the back and the implants and then he lost pulses and was found to be an PEA. CPR was performed for 20 minutes prior to arriving to the hospital. He had received 3 rounds of epinephrine and was tubed in the field. He arrived pulseless. CPR continued and there was return of spontaneous circulation. According to EMS there is no family for this patient. He was subsequently transferred to the intensive care unit he was seen immediately upon arrival. He is intubated on mechanical ventilator with settings of assist control of 20, tidal volume 400, FiO2 50% and a PEEP of 5. Arterial blood gases on 50% FiO2 were 1 PaO2 of 121. PCO2 34. PH 7.24. He has received 3 L of fluid resuscitation. 2 A of bicarb were given. He is sedated on propofol at 30 mcg/kg/m. He is requiring norepinephrine at 0.55 mcg/kg/m. He received 1 dose of Zosyn. Right IJ catheter in place. Left femoral arterial line inserted. Scant urine output. White count 19.7. Hemoglobin 9.2. INR 3.9. Sodium 139. Potassium 3.5. Chloride 114. Bicarb 14. Creatinine 2.66. Lactic acid 8.3. ALT 472. AST 2522. Troponin negative 1. Glucose 380. Computed tomography scan of the brain revealed no acute intracranial abnormality. Old lacunar infarct in the jung radiata on the right. Atrophic change. Chronic white matter ischemic change. Computed tomography scan of the chest abdomen and pelvis revealed small bilateral effusions. Bibasilar airspace disease. Emphysematous changes with associated ground glass opacity may represent ongoing alveolitis. Mild pericardial fluid or thickening. Fatty infiltration of the liver. Evidence of chronic calcific pancreatitis. Thickening of the wall of the sigmoid colon. Possible colitis. Degenerative changes of the spine. On 10/30/2019 patient seen in follow-up in the intensive care unit, patient remains intubated on mechanical ventilator, current vent settings are assist- control with a rate of 16, tidal volume is 400, FiO2 is 40% and PEEP of 5, this morning his blood gases reveal pO2 of 82, pCO2 36, and pH of 7.39. Patient's sedation is currently on hold, he is on 0.9 normal saline at a rate of 75 ML per hour, Levaquin fatty is at 2 mics per minute. He is receiving tube feedings with vital high protein at a rate of 44 with a goal of 44 and standard water flushes. Yesterday we discontinued patient's Diprivan, patient is awake, and following simple commands, he is extremely weak he is not able to squeeze hands on command but he is nodding his head appropriately to verbal questioning. He denies any acute distress. Patient's sputum culture came back positive for presumptive staph aureus, and patient was started on vancomycin, he is also on Zosyn which we can discontinue. He has been afebrile. Patient has developed severe anasarca, pitting edema upper lower extremities, abdominal wall, and severe scrotal edema. History we gave the patient on dose of 25% albumin 25 g and followed it with 40 mg of IV Lasix. Patient has produced 632 mL in urine output in the last 24 hours and he still 2.8 L positive. His albumin on today's CMP is only 1.4, patient has chronic liver disease related to his history of alcoholism, other blood work has been reviewed showing white blood cell count of 10.5, hemoglobin of 10.6, sodium is 141, potassium is 3.3, chloride is 114, B1 of 27 and creatinine of 3.2. His renal profile continues to worsen. Liver enzymes are improving, AST down to 86, ALT is 188, and alkaline phosphatase is 153. His ammonia level is 95, patient is having diarrhea however he is getting lactulose 30 Musa 3 times daily. FMS was inserted. Yesterday patient was able to tolerate on pressure-support trial with a pressure support of 10 and CPAP of 5 for 2 hours. He was placed on assist-control mode of ventilation for the night. This morning we will give him another pressure-support trial. Vital signs are stable, patient is sinus mechanism with a controlled rate. On 10/31/2019 patient seen in follow-up in intensive care unit, he is currently sedated, on propofol infusion at 20 mics per kilo per minute, remains on pr SunnyBumpical ventilator, on assist-control with a rate of 16, TV 400, FiO2 of 40% and PEEP of 5, despite blood gases show pO2 of 76, pCO2 34, and pH of 7.33. Maintenance IV fluids 0.9 normal saline at a rate of 75 per hour, vital high protein tube feedings at a rate of 44 with a goal of 44. Yesterday patient was given a sedation holiday, he was awake and following commands although he was severely generally weak, he was given a spontaneous breathing trial with pressure support of 10 and CPAP of 5, and patient did quite well, and remained on pressure-support trial all day and was placed back on assist control mode for the night. This morning we will proceed with the same, will wake up the patient and do another pressure-support trial with pressure support of 10 and CPAP of 5. Today's chest x-ray has been reviewed, showing interval improvement in aeration of the left lower lobe. Today's labs have been reviewed, with metal, Z.9, hemoglobin is 10.5, platelet count is further decreased and is down to 18,000, no obvious signs of bleeding, sodium is 143, potassium is 2.9, chloride is 120, CO2 is 18, BUN is 26, creatinine is 3.4, AST is 50, ALT is 125, alkaline phosphatase is 137. Albumin is 1.3. Ammonia level is 146, patient remains on lactulose 3 times daily, and patient is having massive liquid diarrhea and the nursing reports that patient put out approximately 1.5 L in liquid stool in the last 24 hours. Patient has a severe generalized anasarca, pitting edema involving his torso, upper and lower extremities, he has significant scrotal edema. Nephrology is on, in patient has been off vasopressors and the last 48 hours, and nephrology starting diuretics with 80 mg of Lasix. On 11/01/2019 patient seen in follow-up in the intensive care unit, yesterday patient was successfully weaned and extubated the mechanical ventilator, today he is on 6 L of oxygen the pulse ox of 94-95%. Failed his swallow evaluation, he remains nothing by mouth, NG tube has been inserted to be able to administer oral medications. Patient is quite weak, he has a weak cough he is unable to cl ear secretions. He is a high risk for aspiration. He is on Rocephin for MSSA pneumonia. He has severe anasarca, third spacing, significant pitting edema involving his trunk, upper and lower extremities, and scrotal edema. Currently on 0.9 normal saline at a rate of KVO, he continues to have massive diarrhea, yesterday because of back his lactulose to once daily, added Xifaxan, lactulose was increased back up to twice a day by GI service however nursing reports patient is still having significant diarrhea, put out 1200 in liquid stool. He is also leaking around the FMS insertion site. He is not on any vasopressor support, appears dehydrated, oral mucous membranes are extremely dry, his blood pressure is 126/51, he had some episodes of hypothermia last night. Today's chest x-ray shows bibasilar opacities likely related to aspiration pneumonia. Nephrology is following, and patient's renal status is slightly worsening every day, today's labs show BUN of 33, and creatinine of 3.89, sodium is up to 146, potassium is 3.8, chloride is 121, CO2 is 18, ammonia level is 235. Patient is awake, is quite weak, but he is trying to follow basic commands, white blood cell count is 8.3, hemoglobin is 8.8, platelet count is 21. Patient was given some albumin and 2 doses of IV Lasix per nephrology, and his urine output is in the order of 22 at 40 ML per hour. Lung sounds reveal diminished breath sounds with scattered rhonchi, patient has upper airway congestion and his cough is poor The patient is seen today 11/02/2019 in follow-up in the intensive care unit. He is currently resting in bed. Minimal response to verbal stimuli. He was extubated on 10/31/2019. He remains on oxygen at 6 L/m per nasal cannula. He has D5W at 50 MLS per hour. Chest x-ray reveals worsening bibasilar airspace disease. He is status post 2 units of packed red blood cells this admission. Current hemoglobin 7.3. INR 1.7. White count 8.3. Sodium 144. Potassium 2.7. Chloride 118. Bicarb 15. Creatinine 4.22. Ammonia level CLV. Total protein 4.5. Albumin 2.5. Urine culture was positive for Aracelis glabrata. Initial sputum culture positive for MSSA. He remains on DuoNeb inhalations, antibiotics in the form of ceftriaxone and Xifaxan, Lasix 80 mg IV every 12 hours. The plan is for hemodialysis catheter placement and to start hemodialysis today. We are waiting further instruction from the temporary legal guardian prior to the procedure. Objective - Vital Signs Vital signs: Vital Signs Temp 96.8 F L 11/02/19 08:00 Pulse 95 11/02/19 08:38 Resp 17 11/02/19 08:00 BP 110/63 10/30/19 16:00 Pulse Ox 95 11/02/19 08:26 Intake & Output 11/01/19 11/02/19 11/02/19 18:59 06:59 18:59 Intake Total 1146 786 106 Output Total 600 1785 70 Balance 546 -999 36 Weight 65.3 kg Intake: IV 36 586 106 Dextrose 5% in Water 1, 550 100 000 ml @ 50 mls/hr IV . Q20H [facility] Rx#:[id number] Pressure Bag 0.9 36 36 6 Intake, IV Titration 550 Amount Albumin Human 25% 50 ml 100 In Empty Bag 1 bag @ 50 mls/hr IVPB Q1H [facility] Rx#: [id number] Dextrose 5% in Water 1, 450 000 ml @ 50 mls/hr IV . Q20H [facility] Rx#:[id number] Oral 360 Other 200 200 Output: Urine 600 785 70 Stool 1000 Other: Voiding Method Indwelling Catheter Indwelling Catheter ABP, PAP, CO, CI - Last Documented Arterial Blood Pressure 139/49 - Exam GENERAL EXAM: Alert, 69-year-old male patient, extremely weak, he is on 6 L of oxygen with a pulse ox of 95%, NG tube is in place as the patient failed swallow evaluation, he has a very weak cough, he has audible upper airway congestion Patient has generalized swelling and upper and lower extremities, and weeping from the lower extremities and small open areas on upper arms. Patient appears older than stated age, quite pale and chronically ill appearing HEAD: Normocephalic/atraumatic. EYES: Normal reaction of pupils, equal size. Conjunctiva pink, sclera white. NOSE: Clear with pink turbinates. NG tube is in place to low intermittent suction THROAT: No erythema or exudates. NECK: No masses, no JVD, no thyroid enlargement, no adenopathy. CHEST: No chest wall deformity. Symmetrical expansion. LUNGS: Equal air entry with basilar crackles and scattered rhonchi CVS: Regular rate and rhythm, normal S1 and S2, no gallops, no murmurs, no rubs ABDOMEN: Soft, nontender. No hepatosplenomegaly, normal bowel sounds, no guard ing or rigidity. EXTREMITIES: No clubbing, no cyanosis, 2+ pulses and upper and lower extremities. Generalized anasarca, swelling, 2+ lower extremity edema, 1+ upper extremity edema, edema involving abdominal wall, and severe scrotal edema MUSCULOSKELETAL: Muscle strength and tone normal. SPINE: No scoliosis or deformity SKIN: No rashes CENTRAL NERVOUS SYSTEM: No focal deficits, tone is normal in all 4 extremities. PSYCHIATRIC: Alert and oriented -1. Appropriate affect. Intact judgment and insight. - Labs CBC & Chem 7: 11/02/19 04:30 11/02/19 04:30 Labs: Abnormal Lab Results - Last 24 Hours (Table) 11/01/19 11/01/19 11/02/19 Range/Units 20:40 20:40 04:30 RBC (4.30-5.90) m/uL Hgb (13.0-17.5) gm/dL Hct (39.0-53.0) % MCV (80.0-100.0) fL RDW (11.5-15.5) % Plt Count (150-450) k/uL Macrocytosis Potassium (3.5-5.1) mmol/L Chloride 120 H (98-107) mmol/L Carbon Dioxide 15 L (22-30) mmol/L BUN 37 H (9-20) mg/dL Creatinine 4.13 H (0.66-1.25) mg/dL POC Glucose (mg/dL) 106 H (75-99) mg/dL Total Bilirubin (0.2-1.3) mg/dL Ammonia 155 H (<30) umol/L Total Protein (6.3-8.2) g/dL Albumin (3.5-5.0) g/dL 11/02/19 11/02/19 Range/Units 04:30 04:30 RBC 2.22 L (4.30-5.90) m/uL Hgb 7.3 L D (13.0-17.5) gm/dL Hct 23.4 L (39.0-53.0) % MCV 105.6 H (80.0-100.0) fL RDW 18.5 H (11.5-15.5) % Plt Count 26 L (150-450) k/uL Macrocytosis Marked A Potassium 2.7 L* (3.5-5.1) mmol/L Chloride 118 H (98-107) mmol/L Carbon Dioxide 15 L (22-30) mmol/L BUN 39 H (9-20) mg/dL Creatinine 4.22 H (0.66-1.25) mg/dL POC Glucose (mg/dL) (75-99) mg/dL Total Bilirubin 4.0 H (0.2-1.3) mg/dL Ammonia (<30) umol/L Total Protein 4.5 L (6.3-8.2) g/dL Albumin 2.5 L (3.5-5.0) g/dL Microbiology - Last 24 Hours (Table) 10/27/19 10:38 Blood Culture - Preliminary Blood No Growth after 120 hours Assessment and Plan Assessment: 1 Cardiac arrest with approximate 20 minutes of CPR, for epinephrine and subsequent return of spontaneous circulation. 2 Acute respiratory arrest secondary to above requiring intubation mechanical ventilatory support, extubated 10/31/2019 3 Acute hypotension with suspected septic shock requiring norepinephrine, recovered 4 shock liver secondary to above 5 Acute on chronic renal failure, current creatinine 4.22 6 Leukocytosis 7 Coagulopathy secondary to shock liver 8 Chronic pancreatitis 9 History of alcoholism 10 Chronic normocytic anemia 11 Previous history of ventilatory dependent respiratory failure secondary to MSSA pneumonia 12 Chronic dysphagia secondary to vocal cord injury with previous PEG tube placement 13 History of previous GI bleed 14 Cerebral atrophy along with chronic small vessel ischemia 15 Poor overall functional performance based on the above-mentioned multiple comorbidities Plan: The patient was seen and evaluated by Dr. Zapien. He is waiting to hear from the temporary legal guardian prior to proceeding with a dialysis catheter placement and hemodialysis. Patient's overall prognosis remains quite poor. In the interim, we'll continue with full supportive care. We will continue to follow and make further recommendations based on his clinical status. I, the cosigning physician, performed a history & physical examination of the patient. Lungs sounds with basilar crackles, scattered rhonchi Maintaining good O2 saturations in the 90s on 6 L/m per nasal cannula.. I discussed the assessment and plan of care with my nurse practitioner, Kylee Phan. I attest to the above note as dictated by her.
[2019-11-02] MEDS: LACTULOSE 20 GM/30 ML CUP PO SCH (10:10)
[2019-11-02] MEDS: PANTOPRAZOLE 40 MG/10 ML VIAL IVP SCH (10:11)
[2019-11-02] MEDS: FUROSEMIDE 10 MG/ML 10 ML VIAL IV SCH ×2 (10:11→21:31)
[2019-11-02] MEDS: ENOXAPARIN 30 MG/0.3 ML SYRINGE SQ SCH (10:13)
[2019-11-02] MEDS: RIFAXIMIN 550 MG TABLET PO SCH ×2 (10:14→21:31)
[2019-11-02 12:40] LABS: Glucose,Whole Blood 114 mg/dL (75-99)
--- NOTE | 2019-11-02 13:33 | P.PN ---
Subjective Progress Note Date: 11/02/19 History of present illness: This is a 69-year-old male with past medical history of hypertension, alcoholism, previous staphylococcal pneumonia and respiratory failure requiring intubation, dysphagia, previous PEG tube placement, chronic kidney disease, hypothyroidism, chronic pancreatitis, previous GI bleed, recurrent UTIs, ERCPs. Patient presented on October 26 status post cardiopulmonary arrest, he has been successfully intubated and remains in the intensive care unit. Patient is unresponsive and is currently a full code. Core temperature is at 35.4 with B air hugger. Chest x-ray shows worsening airspace disease bilaterally. He is status post 2 units packed RBCs. Hemoglobin is at 7.3 down from yesterday, INR 1.7, WBC 8.3, potassium 2.7, creatinine 4.2 to ammonia level 155. He is currently on Lasix 80 mg IV every 12 hours. There was a plan for hemo dialysis catheter placement today which has been sexually canceled awaiting discussion with the temporary legal guardian. Physical examination: Gen: This is a thin 69-year-old male patient resting in the ICU bed. Patient is unresponsive to verbal stimuli. VS: HEENT: Head is atraumatic, normocephalic. Pupils equal, round. Sclerae is anicteric. NECK: Supple. No JVD. No lymphadenopathy. No thyromegaly. LUNGS: Bilateral rhonchi. No intercostal retractions. HEART: Regular rate and rhythm. No murmur. ABDOMEN: Soft. Bowel sounds are present. No masses. No tenderness. EXTREMITIES: 2+ pedal edema. 1+ upper extremity edema and generalized anasarca. NEUROLOGICAL: Patient is awake, alert and oriented x3. Cranial nerves 2 through 12 are grossly intact. Assessment: Status post cardiac pulmonary arrest Acute kidney injury Acute hypoxic respiratory failure status post extubation Hypotensive Multi-organ failure Plan: Prognosis guarded Will follow on an as-needed basis only. Please reconsult if new concerns arise. Nurse practitioner note has been reviewed, I agree with documented findings and plan of care. Patient was seen and examined. Objective - Vital Signs Vital signs: Vital Signs Temp 96.8 F L 11/02/19 08:00 Pulse 94 11/02/19 10:00 Resp 15 11/02/19 10:00 BP 110/63 10/30/19 16:00 Pulse Ox 95 11/02/19 10:00 Intake & Output 11/01/19 11/02/19 11/02/19 18:59 06:59 18:59 Intake Total 1146 786 212 Output Total 600 1785 140 Balance 546 -999 72 Weight 65.3 kg Intake: IV 36 586 212 Dextrose 5% in Water 1, 550 200 000 ml @ 50 mls/hr IV . Q20H [facility] Rx#:[id number] Pressure Bag 0.9 36 36 12 Intake, IV Titration 550 Amount Albumin Human 25% 50 ml 100 In Empty Bag 1 bag @ 50 mls/hr IVPB Q1H [facility] Rx#: [id number] Dextrose 5% in Water 1, 450 000 ml @ 50 mls/hr IV . Q20H [facility] Rx#:[id number] Oral 360 Other 200 200 Output: Urine 600 785 140 Stool 1000 Other: Voiding Method Indwelling Catheter Indwelling Catheter ABP, PAP, CO, CI - Last Documented Arterial Blood Pressure 130/46 - Labs CBC & Chem 7: 11/02/19 04:30 11/02/19 04:30 Labs: Abnormal Lab Results - Last 24 Hours (Table) 11/01/19 11/01/19 11/02/19 Range/Units 20:40 20:40 04:30 RBC (4.30-5.90) m/uL Hgb (13.0-17.5) gm/dL Hct (39.0-53.0) % MCV (80.0-100.0) fL RDW (11.5-15.5) % Plt Count (150-450) k/uL Macrocytosis Potassium (3.5-5.1) mmol/L Chloride 120 H (98-107) mmol/L Carbon Dioxide 15 L (22-30) mmol/L BUN 37 H (9-20) mg/dL Creatinine 4.13 H (0.66-1.25) mg/dL POC Glucose (mg/dL) 106 H (75-99) mg/dL Total Bilirubin (0.2-1.3) mg/dL Ammonia 155 H (<30) umol/L Total Protein (6.3-8.2) g/dL Albumin (3.5-5.0) g/dL 11/02/19 11/02/19 Range/Units 04:30 04:30 RBC 2.22 L (4.30-5.90) m/uL Hgb 7.3 L D (13.0-17.5) gm/dL Hct 23.4 L (39.0-53.0) % MCV 105.6 H (80.0-100.0) fL RDW 18.5 H (11.5-15.5) % Plt Count 26 L (150-450) k/uL Macrocytosis Marked A Potassium 2.7 L* (3.5-5.1) mmol/L Chloride 118 H (98-107) mmol/L Carbon Dioxide 15 L (22-30) mmol/L BUN 39 H (9-20) mg/dL Creatinine 4.22 H (0.66-1.25) mg/dL POC Glucose (mg/dL) (75-99) mg/dL Total Bilirubin 4.0 H (0.2-1.3) mg/dL Ammonia (<30) umol/L Total Protein 4.5 L (6.3-8.2) g/dL Albumin 2.5 L (3.5-5.0) g/dL Microbiology - Last 24 Hours (Table) 10/27/19 10:38 Blood Culture - Preliminary Blood No Growth after 120 hours
--- NOTE | 2019-11-02 16:57 | P.PN ---
Progress Note - Text Progress Note Date: 11/01/19 Presenting complaint: Short of breath Interval history: From the records: This is a 69 years old male With multiple medical problems as below. Patient is intubated and unresponsive and could not provide information so it was obtained from staff and medical records, no family at bedside. Patient Presents because the neighbors called 911/AMS 4 patient was dyspneic, and brought to the hospital patient became unresponsive with PEA in ambulance, CPR was in associated, he got 3 samples of epinephrine in the ambulance and 1 other dose of epinephrine in the hospital. His CPR downtown was about 20 minutes Patient also hypoglycemic and hypothermic and hypotensive , blood glucose was 20 h glucose D 50% with partial correction and was placed on D10% effusion, however his sugar jumped to 800 so D10%was stopped and currently glucose in around 300. He was placed on Jarad hugger and Currently he is on Levophed at 0.57 which is high dose showing leukocytosis of 12.9 and 19.7 K, hemoglobin 6.6 corrected to 9.2 after blood transfusion, platelets 46 and 50 5K. INR 4.5 and 3.9. PH was 6.9 and 7. 2. Creatinine 2.6 which are unknown baseline. Lactic acid 8.0 7.0. Elevated liver enzymes with AST 3652 and ALT 472 . Troponin is negative Hemoglobin was 6 and INR was 4 and he got 1 dose of vitamin K and 2 units of blood transfusion Patient got Zithromax and ceftriaxone in the emergency room, patient continued on Zosyn, patient extubated on October 30. Today-In the ICU. Lethargic but arousable. NG tube. On telemetry Review of systems: Attempted for constitutional, cardiovascular, GI, pulmonary. relevant finding as above Active Medications Albuterol/Ipratropium (Duoneb 0.5 Mg-3 Mg/3 Ml Soln) 3 ml INHALATION RT-Q2H PRN PRN Reason: Shortness Of Breath Or Wheezing Albuterol/Ipratropium (Duoneb 0.5 Mg-3 Mg/3 Ml Soln) 3 ml INHALATION RT-QID [facility] Last Admin: 11/01/19 20:34 Dose: 3 ml Documented by: Enoxaparin Sodium (Lovenox) 30 mg SQ DAILY [facility] Last Admin: 11/01/19 09:18 Dose: 30 mg Documented by: Furosemide (Lasix) 80 mg IV Q12HR [facility] Last Admin: 11/01/19 22:02 Dose: 80 mg Documented by: Propofol 1,000 mg/ IV Solution 100 mls @ 0 mls/hr IV .Q0M [facility]; Protocol Last Titration: 10/31/19 08:00 Dose: 0 mcg/kg/min, 0 mls/hr Documented by: Ceftriaxone Sodium 1 gm/ (Sodium Chloride) 50 mls @ 100 mls/hr IVPB Q24HR [facility] Last Admin: 11/01/19 09:19 Dose: 100 mls/hr Documented by: Dextrose/Water (Dextrose 5%-Water Iv Soln) 1,000 mls @ 50 mls/hr IV .Q20H [facility] Last Admin: 11/01/19 10:29 Dose: 50 mls/hr Documented by: Lactulose (Cephulac) 30 gm PO DAILY [facility] Midodrine (Proamatine) 10 mg PO AC-TID [facility] Last Admin: 11/01/19 17:55 Dose: 10 mg Documented by: Miscellaneous Information (Potassium Per Protocol) 1 each MISCELLANE DAILY PRN; Protocol PRN Reason: Per Protocol Miscellaneous Information (Magnesium Per Protocol) 1 each MISCELLANE DAILY PRN; Protocol PRN Reason: Per Protocol Naloxone HCl (Narcan) 0.2 mg IV Q2M PRN PRN Reason: Opioid Reversal Pantoprazole Sodium (Protonix) 40 mg IVP DAILY [facility] Last Admin: 11/01/19 09:18 Dose: 40 mg Documented by: Rifaximin (Xifaxan) 550 mg PO BID [facility] Stop: 11/30/19 10:31 Last Admin: 11/01/19 20:23 Dose: 550 mg Documented by: On examination: VITAL SIGNS: 96.1, 86, 24, 130/50, 94% on oxygen GENERAL APPEARANCE: Laying in bed, lethargic, just about arousable HEENT: Normal external appearance of nose and ear. Oral dry, NG tube EYES: Pupils equal. Conjunctiva pale. NECK: JVD not raised. Mass not palpable. RESPIRATORY: Respiratory effort increased, decreased breath sounds,. Expiratory coarse crackles CARDIOVASCULAR: First and second sounds normal. Significant edema ABDOMEN: Soft. Liver and spleen not palpable. No tenderness. No mass palpable. PEG tube site appearance clean. Significant scrotal edema DERMATOLOGICAL: Stage II decubital ulcers NEUROLOGICAL: Lethargic just about arousable PSYCHIATRY: Mood below INVESTIGATIONS, reviewed in the clinical context: White count 8.3 hemoglobin 8.8 platelets 21 potassium 3.8 bun 33 creatinine 3.89 sodium 146 chloride 121 ammonia 235 Previous testing Chest [id number] infiltrate Computed tomography scan of the chest-bibasilar airspace disease, emphysema changes, chronic calcific pancreatitis, Computed tomography scan of the brain-old lacunar infarct in the jung radiata on the right, chronic changes EEG-suggestive of generalized cerebral dysfunction Assessment: -Status post cardiac arrest witnessed-downtime of about 12 minutes. 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 -acute hypoxic respiratory failure, on ventilator -extubated October 30 -Hypotensive and/or septic shock requiring pressor support-now on midodrine -Significant edema due to third spacing from severe hypoalbuminemia -Stage II decubitus ulcer -Metabolic encephalopathy-not improving Plan: -Doing poorly. IV fluids are being adjusted. That is a court-appointed guardian but the hearing is not present for next few days-as per Dr. Zapien notes.. Prognosis is poor. Continue current medication changes are planned.
--- NOTE | 2019-11-02 17:01 | P.PN ---
Progress Note - Text Progress Note Date: 11/02/19 Presenting complaint: Short of breath Interval history: From the records: This is a 69 years old male With multiple medical problems as below. Patient is intubated and unresponsive and could not provide information so it was obtained from staff and medical records, no family at bedside. Patient Presents because the neighbors called 911/AMS 4 patient was dyspneic, and brought to the hospital patient became unresponsive with PEA in ambulance, CPR was in associated, he got 3 samples of epinephrine in the ambulance and 1 other dose of epinephrine in the hospital. His CPR downtown was about 20 minutes Patient also hypoglycemic and hypothermic and hypotensive , blood glucose was 20 h glucose D 50% with partial correction and was placed on D10% effusion, however his sugar jumped to 800 so D10%was stopped and currently glucose in around 300. He was placed on Jarad hugger and Currently he is on Levophed at 0.57 which is high dose showing leukocytosis of 12.9 and 19.7 K, hemoglobin 6.6 corrected to 9.2 after blood transfusion, platelets 46 and 50 5K. INR 4.5 and 3.9. PH was 6.9 and 7. 2. Creatinine 2.6 which are unknown baseline. Lactic acid 8.0 7.0. Elevated liver enzymes with AST 3652 and ALT 472 . Troponin is negative Hemoglobin was 6 and INR was 4 and he got 1 dose of vitamin K and 2 units of blood transfusion Patient got Zithromax and ceftriaxone in the emergency room, patient continued on Zosyn, patient extubated on October 30. Has a court-appointed guardian. Today-In the ICU. Continues to be lethargic. Barely arousable. Review of systems: Attempted for constitutional, cardiovascular, GI, pulmonary. relevant finding as above Active Medications Albuterol/Ipratropium (Duoneb 0.5 Mg-3 Mg/3 Ml Soln) 3 ml INHALATION RT-Q2H PRN PRN Reason: Shortness Of Breath Or Wheezing Albuterol/Ipratropium (Duoneb 0.5 Mg-3 Mg/3 Ml Soln) 3 ml INHALATION RT-QID [facility] Last Admin: 11/02/19 15:54 Dose: 3 ml Documented by: Furosemide (Lasix) 80 mg IV Q12HR [facility] Last Admin: 11/02/19 10:11 Dose: 80 mg Documented by: Propofol 1,000 mg/ IV Solution 100 mls @ 0 mls/hr IV .Q0M [facility]; Protocol Last Titration: 10/31/19 08:00 Dose: 0 mcg/kg/min, 0 mls/hr Documented by: Ceftriaxone Sodium 1 gm/ (Sodium Chloride) 50 mls @ 100 mls/hr IVPB Q24HR [facility] Last Admin: 11/02/19 10:12 Dose: 100 mls/hr Documented by: Dextrose/Water (Dextrose 5%-Water Iv Soln) 1,000 mls @ 50 mls/hr IV .Q20H [facility] Last Admin: 11/02/19 06:36 Dose: 50 mls/hr Documented by: Lactulose (Cephulac) 30 gm PO DAILY [facility] Last Admin: 11/02/19 10:10 Dose: 30 gm Documented by: Midodrine (Proamatine) 10 mg PO AC-TID [facility] Last Admin: 11/02/19 12:38 Dose: 10 mg Documented by: Miscellaneous Information (Potassium Per Protocol) 1 each MISCELLANE DAILY PRN; Protocol PRN Reason: Per Protocol Miscellaneous Information (Magnesium Per Protocol) 1 each MISCELLANE DAILY PRN; Protocol PRN Reason: Per Protocol Naloxone HCl (Narcan) 0.2 mg IV Q2M PRN PRN Reason: Opioid Reversal Pantoprazole Sodium (Protonix) 40 mg IVP DAILY [facility] Last Admin: 11/02/19 10:11 Dose: 40 mg Documented by: Rifaximin (Xifaxan) 550 mg PO BID [facility] Stop: 11/30/19 10:31 Last Admin: 11/02/19 10:14 Dose: 550 mg Documented by: On examination: VITAL SIGNS: 96.8, 96, 17, 139/49, 95% on 6 L GENERAL APPEARANCE: Laying in bed, lethargic, just about arousable HEENT: Normal external appearance of nose and ear. Oral dry, NG tube EYES: Pupils equal. Conjunctiva pale. NECK: JVD not raised. Mass not palpable. RESPIRATORY: Respiratory effort increased, decreased breath sounds,. Expiratory coarse crackles CARDIOVASCULAR: First and second sounds normal. Significant edema ABDOMEN: Soft. Liver and spleen not palpable. No tenderness. No mass palpable. PEG tube site appearance clean. Significant scrotal edema DERMATOLOGICAL: Stage II decubital ulcers NEUROLOGICAL: Lethargic just about arousable PSYCHIATRY: Mood is down INVESTIGATIONS, reviewed in the clinical context: White count 8.3 hemoglobin 7.3 platelets 26 potassium 2.7 bun 39 creatinine 4.22 albumin 2.5 Previous testing Chest [id number] infiltrate Computed tomography scan of the chest-bibasilar airspace disease, emphysema changes, chronic calcific pancreatitis, Computed tomography scan of the brain-old lacunar infarct in the jung radiata on the right, chronic changes EEG-suggestive of generalized cerebral dysfunction Assessment: -Status post cardiac arrest witnessed-downtime of about 12 minutes. 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 -acute hypoxic respiratory failure, on ventilator -extubated October 30 -Hypotensive and/or septic shock requiring pressor support-now on midodrine -Significant edema due to third spacing from severe hypoalbuminemia -Stage II decubitus ulcer -Metabolic encephalopathy-not improving -Court-appointed guardian -Severe metabolic acidosis, from renal failure Plan: -Doing poorly. Patient remains on IV ceftriaxone, IV fluids at 50 mL an hour. Also on IV Lasix. An Xifaxan. Awaiting court hearing in terms of CODE STATUS. Prognosis poor.
[2019-11-02 17:52] LABS: Glucose,Whole Blood 120 mg/dL (75-99)
--- NOTE | 2019-11-02 20:44 | PN ---
PROGRESS NOTE DATE OF DICTATION: November 02, 2019 Patient is a 69-year-old white male with alcoholic cirrhosis of the liver, admitted to the hospital following cardiopulmonary arrest. The patient remains in the intensive care unit and very lethargic/unresponsive. No acute events noted overnight. PHYSICAL EXAMINATION: Vital signs show blood pressure of 92/86, pulse rate 112 per minute. HEENT examination unremarkable. Conjunctivae pink. Sclerae slightly icteric. Oral cavity no lesions. CHEST: Decreased breath sounds bilaterally. HEART: Regular rate and rhythm. ABDOMEN is slightly distended. EXTREMITIES: No pedal edema. NEURO unresponsive. Lab from today WBC 8.3, hemoglobin 7.3, platelets 26,000. T-bilirubin 4. AST, ALT, alkaline phosphatase normal. IMPRESSION: 1. Altered mental status secondary to hepatic encephalopathy/metabolic encephalopathy. Rule out anoxic brain injury. 2. Status post cardiopulmonary arrest. Patient being monitored in the intensive care unit. 3. Severe anemia but no evidence of active bleeding. 4. Acute kidney injury. 5. Alcoholic cirrhosis of the liver with decompensation. RECOMMENDATION: 1. Continue with symptomatic and supportive care. 2. Continue Xifaxan and lactulose for now. 3. Dr. Zapien trying to address the code status with the legal guardian. 4. Monitor labs closely. 5. We will follow with you. MMODL / IJN: [id number] /
[2019-11-02 21:34] LABS: Magnesium 2.3 mg/dL (1.6-2.3); Phosphorus 3.2 mg/dL (2.5-4.5); Potassium 3.2 mmol/L (3.5-5.1)
[2019-11-03 00:07] LABS: Glucose,Whole Blood 121 mg/dL (75-99)
[2019-11-03] MEDS: POTASSIUM CHLORIDE 20 MEQ in WATER FOR INJECTION 1 100ML.BAG IVPB SCH ×3 (00:57→09:35)
[2019-11-03] MEDS: DEXTROSE 5% IN WATER 1,000 ML IV SCH (03:27)
[2019-11-03 04:47] LABS: Anisocytosis Slight; Basophils # (A) 0.1 k/uL (0-0.2); Basophils % (A) 1 %; Eosinophils # (A) 0.3 k/uL (0-0.7); Eosinophils % (A) 3 %; HCT 26.6 % (39.0-53.0); HGB 8.2 gm/dL (13.0-17.5); Hypochromasia Moderate; Lymphocytes # (A) 1.4 k/uL (1.0-4.8); Lymphocytes % (A) 12 %; MCH 32.3 pg (25.0-35.0); MCHC 30.9 g/dL (31.0-37.0); MCV 104.5 fL (80.0-100.0); Macrocytosis Moderate; Mean Platelet Volume 12.1; Monocytes # (A) 0.4 k/uL (0-1.0); Monocytes % (A) 4 %; Neutrophils # (A) 8.6 k/uL (1.3-7.7); Neutrophils % (A) 77 %; RBC 2.55 m/uL (4.30-5.90); RDW 17.7 % (11.5-15.5); WBC 11.2 k/uL (3.8-10.6)
[2019-11-03 05:04] LABS: Platelet Count 35 k/uL (150-450)
[2019-11-03 05:14] LABS: Calcium 9.3 mg/dL (8.4-10.2); Potassium 3.7 mmol/L (3.5-5.1)
[2019-11-03] MEDS: MIDODRINE 5 MG TAB PO SCH ×3 (06:40→17:48)
--- NOTE | 2019-11-03 07:02 | XR ---
EXAMINATION TYPE: XR chest 1V portable DATE OF EXAM: 11/03/2019 HISTORY: ICU management. REFERENCE: Previous study dated 11/02/2019. FINDINGS: The patient is NG tube and right internal jugular catheter remain in place, unchanged in ap pearance. There is improved aeration of both lung. Heart size upper limits of normal. There is blunting of both CP angles. I could not exclude tiny effusions. IMPRESSION: IMPROVED AERATION, BOTH LUNGS.
[2019-11-03] MEDS: IPRATROPIUM-ALBUTEROL 3 ML NEB INHALATION SCH ×4 (08:05→19:03)
[2019-11-03] MEDS: LACTULOSE 20 GM/30 ML CUP PO SCH (09:34)
[2019-11-03] MEDS: PANTOPRAZOLE 40 MG/10 ML VIAL IVP SCH (09:34)
[2019-11-03] MEDS: FUROSEMIDE 10 MG/ML 10 ML VIAL IV SCH ×2 (09:34→21:54)
[2019-11-03] MEDS: RIFAXIMIN 550 MG TABLET PO SCH ×2 (09:35→21:54)
--- NOTE | 2019-11-03 09:36 | P.PN ---
Subjective Progress Note Date: 11/03/19 Principal diagnosis: Patient is a 69-year-old male seen in renal consultation for acute kidney injury on chronic kidney disease. Patient has chronic kidney disease stage III with baseline creatinine 1.8-2. He has ATN from cardiac arrest, down time is approximately 20 minutes with PEA. Additionally he has severe liver disease from history of alcohol use and his ammonia is very high. Patient Presents because the neighbors called 911/AMS 4 patient was dyspneic, and brought to the hospital patient became unresponsive with PEA in ambulance, CPR was in associated, he got 3 samples of epinephrine in the ambulance and 1 other dose of epinephrine in the hospital. His CPR downtown was about 20 minutes Patient also hypoglycemic and hypothermic and hypotensive , blood glucose was 20 He is known with past ETOH abuse, alcoholic fatty liver, . Since admission he was intubated was in the ICU, 6 is certainly extubated on 10/31/2019. He remains on BiPAP currently. He is completely comatose with fixed pupils He is labs are stable vital signs are stable off of any inotropes. His creatinine is slowly going up from 2.6 to to 4.2 yesterday and today it is 4.76 Objective - Vital Signs Vital signs: Vital Signs Temp 97.0 F L 11/03/19 07:00 Pulse 114 H 11/03/19 08:18 Resp 16 11/03/19 08:18 BP 110/63 10/30/19 16:00 Pulse Ox 94 L 11/03/19 08:05 Intake & Output 11/02/19 11/03/19 11/03/19 18:59 06:59 18:59 Intake Total 636 836 159 Output Total 2090 545 95 Balance -1454 291 64 Weight 64.8 kg Intake: IV 636 636 159 Dextrose 5% in Water 1, 600 600 150 000 ml @ 50 mls/hr IV . Q20H [facility] Rx#:[id number] Pressure Bag 0.9 36 36 9 Other 200 Output: Urine 1090 545 95 Stool 1000 Other: Voiding Method Indwelling Catheter Indwelling Catheter ABP, PAP, CO, CI - Last Documented Arterial Blood Pressure 133/48 Examination is comatose, pupils are dilated and fixed about 3 mm. Neck is supple no facial asymmetry Lungs are clear to auscultation he is on BiPAP at 50% FiO2. Heart sounds are unremarkable is in normal sinus rhythm Abdomen is slightly distended. Extremity exam was minimal edema Neurologically as mentioned about he did not receive any sedation - Labs CBC & Chem 7: 11/03/19 04:30 11/03/19 04:30 Labs: Abnormal Lab Results - Last 24 Hours (Table) 11/02/19 11/02/19 11/02/19 Range/Units 12:38 17:50 21:08 WBC (3.8-10.6) k/uL RBC (4.30-5.90) m/uL Hgb (13.0-17.5) gm/dL Hct (39.0-53.0) % MCV (80.0-100.0) fL MCHC (31.0-37.0) g/dL RDW (11.5-15.5) % Plt Count (150-450) k/uL Neutrophils # (1.3-7.7) k/uL Potassium 3.2 L (3.5-5.1) mmol/L Chloride (98-107) mmol/L Carbon Dioxide (22-30) mmol/L BUN (9-20) mg/dL Creatinine (0.66-1.25) mg/dL Glucose (74-99) mg/dL POC Glucose (mg/dL) 114 H 120 H (75-99) mg/dL Ammonia (<30) umol/L 11/02/19 11/03/19 11/03/19 Range/Units 23:55 04:30 04:30 WBC 11.2 H (3.8-10.6) k/uL RBC 2.55 L (4.30-5.90) m/uL Hgb 8.2 L (13.0-17.5) gm/dL Hct 26.6 L (39.0-53.0) % MCV 104.5 H (80.0-100.0) fL MCHC 30.9 L (31.0-37.0) g/dL RDW 17.7 H (11.5-15.5) % Plt Count 35 L (150-450) k/uL Neutrophils # 8.6 H (1.3-7.7) k/uL Potassium (3.5-5.1) mmol/L Chloride 118 H (98-107) mmol/L Carbon Dioxide 12 L (22-30) mmol/L BUN 46 H (9-20) mg/dL Creatinine 4.76 H (0.66-1.25) mg/dL Glucose 116 H (74-99) mg/dL POC Glucose (mg/dL) 121 H (75-99) mg/dL Ammonia (<30) umol/L 11/03/19 Range/Units 04:30 WBC (3.8-10.6) k/uL RBC (4.30-5.90) m/uL Hgb (13.0-17.5) gm/dL Hct (39.0-53.0) % MCV (80.0-100.0) fL MCHC (31.0-37.0) g/dL RDW (11.5-15.5) % Plt Count (150-450) k/uL Neutrophils # (1.3-7.7) k/uL Potassium (3.5-5.1) mmol/L Chloride (98-107) mmol/L Carbon Dioxide (22-30) mmol/L BUN (9-20) mg/dL Creatinine (0.66-1.25) mg/dL Glucose (74-99) mg/dL POC Glucose (mg/dL) (75-99) mg/dL Ammonia 102 H (<30) umol/L Microbiology - Last 24 Hours (Table) 10/27/19 10:38 Blood Culture - Final Blood No Growth after 144 hours Assessment and Plan Assessment: Impression 1. Acute kidney injury secondary to cardiac arrest slowly worsening. 2. Obtundation, comatose secondary to combination of cardiac arrest with down time of 20 minutes as well as hepatocellular failure with high ammonia level as well as an element of acute kidney injury. 3. Pneumonia 4. History of alcoholism. Possibly shock liver additionally with liver enzymes improved, bilirubin 4, slightly better from 4.9 and enzymes improved 5. Cardiac arrest down time 20 minutes. 6. When dependent respiratory failure, weaned off and is currently on BiPAP. 7. Non-gap and gap acidosis with an element of lactic acidosis secondary to acute kidney injury and shock. Recommendation 1. No indication for dialysis given poor prognosis as well as severe liver disease with ammonia levels high at 102 in spite of treatment 2. Pending court guardianship to make him hospice. Agree with that until that will maintain the same management. 3. Sodium bicarbonate 650 4 times a day if possible via NG tube.
[2019-11-03] MEDS: SODIUM BICARBONATE TAB 650 MG TAB PO SCH ×4 (11:26→21:57)
--- NOTE | 2019-11-03 12:10 | P.PN ---
Subjective Progress Note Date: 11/03/19 Principal diagnosis: Cardiac arrest, acute respiratory failure This is a 69-year-old gentleman who follows with Dr. Smith as his primary care provider. He has a history of hypertension, alcoholism, previous history of staphylococcal pneumonia and respiratory failure requiring intubation and mechanical ventilation, dysphagia with previous PEG tube placement, chronic kidney disease, hypothyroidism, chronic pancreatitis, previous GI bleed, recurrent UTIs, ERCPs. He is residing at home. His neighbor was checking on him earlier this morning and found him to be having difficulty in breathing. EMS was called. Upon arrival patient was arousable. They put him in the back and the implants and then he lost pulses and was found to be an PEA. CPR was performed for 20 minutes prior to arriving to the hospital. He had received 3 rounds of epinephrine and was tubed in the field. He arrived pulseless. CPR continued and there was return of spontaneous circulation. According to EMS there is no family for this patient. He was subsequently transferred to the intensive care unit he was seen immediately upon arrival. He is intubated on mechanical ventilator with settings of assist control of 20, tidal volume 400, FiO2 50% and a PEEP of 5. Arterial blood gases on 50% FiO2 were 1 PaO2 of 121. PCO2 34. PH 7.24. He has received 3 L of fluid resuscitation. 2 A of bicarb were given. He is sedated on propofol at 30 mcg/kg/m. He is requiring norepinephrine at 0.55 mcg/kg/m. He received 1 dose of Zosyn. Right IJ catheter in place. Left femoral arterial line inserted. Scant urine output. White count 19.7. Hemoglobin 9.2. INR 3.9. Sodium 139. Potassium 3.5. Chloride 114. Bicarb 14. Creatinine 2.66. Lactic acid 8.3. ALT 472. AST 2522. Troponin negative 1. Glucose 380. Computed tomography scan of the brain revealed no acute intracranial abnormality. Old lacunar infarct in the jung radiata on the right. Atrophic change. Chronic white matter ischemic change. Computed tomography scan of the chest abdomen and pelvis revealed small bilateral effusions. Bibasilar airspace disease. Emphysematous changes with associated ground glass opacity may represent ongoing alveolitis. Mild pericardial fluid or thickening. Fatty infiltration of the liver. Evidence of chronic calcific pancreatitis. Thickening of the wall of the sigmoid colon. Possible colitis. Degenerative changes of the spine. On 10/30/2019 patient seen in follow-up in the intensive care unit, patient remains intubated on mechanical ventilator, current vent settings are assist- control with a rate of 16, tidal volume is 400, FiO2 is 40% and PEEP of 5, this morning his blood gases reveal pO2 of 82, pCO2 36, and pH of 7.39. Patient's sedation is currently on hold, he is on 0.9 normal saline at a rate of 75 ML per hour, Levaquin fatty is at 2 mics per minute. He is receiving tube feedings with vital high protein at a rate of 44 with a goal of 44 and standard water flushes. Yesterday we discontinued patient's Diprivan, patient is awake, and following simple commands, he is extremely weak he is not able to squeeze hands on command but he is nodding his head appropriately to verbal questioning. He denies any acute distress. Patient's sputum culture came back positive for presumptive staph aureus, and patient was started on vancomycin, he is also on Zosyn which we can discontinue. He has been afebrile. Patient has developed severe anasarca, pitting edema upper lower extremities, abdominal wall, and severe scrotal edema. History we gave the patient on dose of 25% albumin 25 g and followed it with 40 mg of IV Lasix. Patient has produced 632 mL in urine output in the last 24 hours and he still 2.8 L positive. His albumin on today's CMP is only 1.4, patient has chronic liver disease related to his history of alcoholism, other blood work has been reviewed showing white blood cell count of 10.5, hemoglobin of 10.6, sodium is 141, potassium is 3.3, chloride is 114, B1 of 27 and creatinine of 3.2. His renal profile continues to worsen. Liver enzymes are improving, AST down to 86, ALT is 188, and alkaline phosphatase is 153. His ammonia level is 95, patient is having diarrhea however he is getting lactulose 30 Musa 3 times daily. FMS was inserted. Yesterday patient was able to tolerate on pressure-support trial with a pressure support of 10 and CPAP of 5 for 2 hours. He was placed on assist-control mode of ventilation for the night. This morning we will give him another pressure-support trial. Vital signs are stable, patient is sinus mechanism with a controlled rate. On 10/31/2019 patient seen in follow-up in intensive care unit, he is currently sedated, on propofol infusion at 20 mics per kilo per minute, remains on [facility], on assist-control with a rate of 16, TV 400, FiO2 of 40% and PEEP of 5, despite blood gases show pO2 of 76, pCO2 34, and pH of 7.33. Maintenance IV fluids 0.9 normal saline at a rate of 75 per hour, vital high protein tube feedings at a rate of 44 with a goal of 44. Yesterday patient was given a sedation holiday, he was awake and following commands although he was severely generally weak, he was given a spontaneous breathing trial with pressure support of 10 and CPAP of 5, and patient did quite well, and remained on pressure-support trial all day and was placed back on assist control mode for the night. This morning we will proceed with the same, will wake up the patient and do another pressure-support trial with pressure support of 10 and CPAP of 5. Today's chest x-ray has been reviewed, showing interval improvement in aeration of the left lower lobe. Today's labs have been reviewed, with metal, Z.9, hemoglobin is 10.5, platelet count is further decreased and is down to 18,000, no obvious signs of bleeding, sodium is 143, potassium is 2.9, chloride is 120, CO2 is 18, BUN is 26, creatinine is 3.4, AST is 50, ALT is 125, alkaline phosphatase is 137. Albumin is 1.3. Ammonia level is 146, patient remains on lactulose 3 times daily, and patient is having massive liquid diarrhea and the nursing reports that patient put out approximately 1.5 L in liquid stool in the last 24 hours. Patient has a severe generalized anasarca, pitting edema involving his torso, upper and lower extremities, he has significant scrotal edema. Nephrology is on, in patient has been off vasopressors and the last 48 hours, and nephrology starting diuretics with 80 mg of Lasix. On 11/01/2019 patient seen in follow-up in the intensive care unit, yesterday patient was successfully weaned and extubated the mechanical ventilator, today he is on 6 L of oxygen the pulse ox of 94-95%. Failed his swallow evaluation, he remains nothing by mouth, NG tube has been inserted to be able to administer oral medications. Patient is quite weak, he has a weak cough he is unable to cl ear secretions. He is a high risk for aspiration. He is on Rocephin for MSSA pneumonia. He has severe anasarca, third spacing, significant pitting edema involving his trunk, upper and lower extremities, and scrotal edema. Currently on 0.9 normal saline at a rate of KVO, he continues to have massive diarrhea, yesterday because of back his lactulose to once daily, added Xifaxan, lactulose was increased back up to twice a day by GI service however nursing reports patient is still having significant diarrhea, put out 1200 in liquid stool. He is also leaking around the FMS insertion site. He is not on any vasopressor support, appears dehydrated, oral mucous membranes are extremely dry, his blood pressure is 126/51, he had some episodes of hypothermia last night. Today's chest x-ray shows bibasilar opacities likely related to aspiration pneumonia. Nephrology is following, and patient's renal status is slightly worsening every day, today's labs show BUN of 33, and creatinine of 3.89, sodium is up to 146, potassium is 3.8, chloride is 121, CO2 is 18, ammonia level is 235. Patient is awake, is quite weak, but he is trying to follow basic commands, white blood cell count is 8.3, hemoglobin is 8.8, platelet count is 21. Patient was given some albumin and 2 doses of IV Lasix per nephrology, and his urine output is in the order of 22 at 40 ML per hour. Lung sounds reveal diminished breath sounds with scattered rhonchi, patient has upper airway congestion and his cough is poor The patient is seen today 11/02/2019 in follow-up in the intensive care unit. He is currently resting in bed. Minimal response to verbal stimuli. He was extubated on 10/31/2019. He remains on oxygen at 6 L/m per nasal cannula. He has D5W at 50 MLS per hour. Chest x-ray reveals worsening bibasilar airspace disease. He is status post 2 units of packed red blood cells this admission. Current hemoglobin 7.3. INR 1.7. White count 8.3. Sodium 144. Potassium 2.7. Chloride 118. Bicarb 15. Creatinine 4.22. Ammonia level CLV. Total protein 4.5. Albumin 2.5. Urine culture was positive for Aracelis glabrata. Initial sputum culture positive for MSSA. He remains on DuoNeb inhalations, antibiotics in the form of ceftriaxone and Xifaxan, Lasix 80 mg IV every 12 hours. The plan is for hemodialysis catheter placement and to start hemodialysis today. We are waiting further instruction from the temporary legal guardian prior to the procedure. The patient is seen today 11/03/2019 in follow-up in the intensive care unit. He continues to be minimally responsive. He is maintaining O2 saturations in the 90s on BiPAP 10/5 at 50% FiO2. Sputum positive for MSSA. Urine culture positive for Aracelis glabrata. White count 11.2. Hemoglobin 8.2. Sodium 143. Potassium 3.7. Creatinine 4.76. He remains on ceftriaxone and rifaximin. Lasix 80 mg IV every 12 hours. D5W at 50 MLS per hour. Sodium bicarb was initiated. Objective - Vital Signs Vital signs: Vital Signs Temp 97.5 F L 11/03/19 08:00 Pulse 94 11/03/19 11:00 Resp 14 11/03/19 11:00 BP 110/63 10/30/19 16:00 Pulse Ox 97 11/03/19 11:00 Intake & Output 11/02/19 11/03/19 11/03/19 18:59 06:59 18:59 Intake Total 636 836 265 Output Total 2090 545 580 Balance -1454 291 -315 Weight 64.8 kg Intake: IV 636 636 265 Dextrose 5% in Water 1, 600 600 250 000 ml @ 50 mls/hr IV . Q20H [facility] Rx#:[id number] Pressure Bag 0.9 36 36 15 Other 200 Output: Gastric Drainage 400 Urine 1090 545 180 Stool 1000 Other: Voiding Method Indwelling Catheter Indwelling Catheter Indwelling Catheter ABP, PAP, CO, CI - Last Documented Arterial Blood Pressure 129/46 - Exam GENERAL EXAM: Minimally responsive 69-year-old male patient, extremely weak, he is on BiPAP 10/5 and 50% FiO2, NG tube is in place as the patient failed swallow evaluation, he has a very weak cough, he has audible upper airway congestion Patient has generalized swelling and upper and lower extremities, and weeping from the lower extremities and small open areas on upper arms. Patient appears older than stated age, quite pale and chronically ill appearing HEAD: Normocephalic/atraumatic. EYES: Normal reaction of pupils, equal size. Conjunctiva pink, sclera white. NOSE: Clear with pink turbinates. NG tube is in place to low intermittent suction THROAT: No erythema or exudates. NECK: No masses, no JVD, no thyroid enlargement, no adenopathy. CHEST: No chest wall deformity. Symmetrical expansion. LUNGS: Equal air entry with basilar crackles and scattered rhonchi CVS: Regular rate and rhythm, normal S1 and S2, no gallops, no murmurs, no rubs ABDOMEN: Soft, nontender. No hepatosplenomegaly, normal bowel sounds, no guarding or rigidity. EXTREMITIES: No clubbing, no cyanosis, 2+ pulses and upper and lower extremities. Generalized anasarca, swelling, 2+ lower extremity edema, 1+ upper extremity edema, edema involving abdominal wall, and severe scrotal edema MUSCULOSKELETAL: Muscle strength and tone normal. SPINE: No scoliosis or deformity SKIN: No rashes CENTRAL NERVOUS SYSTEM: No focal deficits, tone is normal in all 4 extremities. PSYCHIATRIC: Minimally responsive - Labs CBC & Chem 7: 11/03/19 04:30 11/03/19 04:30 Labs: Abnormal Lab Results - Last 24 Hours (Table) 11/02/19 11/02/19 11/02/19 Range/Units 12:38 17:50 21:08 WBC (3.8-10.6) k/uL RBC (4.30-5.90) m/uL Hgb (13.0-17.5) gm/dL Hct (39.0-53.0) % MCV (80.0-100.0) fL MCHC (31.0-37.0) g/dL RDW (11.5-15.5) % Plt Count (150-450) k/uL Neutrophils # (1.3-7.7) k/uL Potassium 3.2 L (3.5-5.1) mmol/L Chloride (98-107) mmol/L Carbon Dioxide (22-30) mmol/L BUN (9-20) mg/dL Creatinine (0.66-1.25) mg/dL Glucose (74-99) mg/dL POC Glucose (mg/dL) 114 H 120 H (75-99) mg/dL Ammonia (<30) umol/L 11/02/19 11/03/19 11/03/19 Range/Units 23:55 04:30 04:30 WBC 11.2 H (3.8-10.6) k/uL RBC 2.55 L (4.30-5.90) m/uL Hgb 8.2 L (13.0-17.5) gm/dL Hct 26.6 L (39.0-53.0) % MCV 104.5 H (80.0-100.0) fL MCHC 30.9 L (31.0-37.0) g/dL RDW 17.7 H (11.5-15.5) % Plt Count 35 L (150-450) k/uL Neutrophils # 8.6 H (1.3-7.7) k/uL Potassium (3.5-5.1) mmol/L Chloride 118 H (98-107) mmol/L Carbon Dioxide 12 L (22-30) mmol/L BUN 46 H (9-20) mg/dL Creatinine 4.76 H (0.66-1.25) mg/dL Glucose 116 H (74-99) mg/dL POC Glucose (mg/dL) 121 H (75-99) mg/dL Ammonia (<30) umol/L 11/03/19 Range/Units 04:30 WBC (3.8-10.6) k/uL RBC (4.30-5.90) m/uL Hgb (13.0-17.5) gm/dL Hct (39.0-53.0) % MCV (80.0-100.0) fL MCHC (31.0-37.0) g/dL RDW (11.5-15.5) % Plt Count (150-450) k/uL Neutrophils # (1.3-7.7) k/uL Potassium (3.5-5.1) mmol/L Chloride (98-107) mmol/L Carbon Dioxide (22-30) mmol/L BUN (9-20) mg/dL Creatinine (0.66-1.25) mg/dL Glucose (74-99) mg/dL POC Glucose (mg/dL) (75-99) mg/dL Ammonia 102 H (<30) umol/L Microbiology - Last 24 Hours (Table) 10/27/19 10:38 Blood Culture - Final Blood No Growth after 144 hours Assessment and Plan Assessment: 1 Cardiac arrest with approximate 20 minutes of CPR, for epinephrine and subsequent return of spontaneous circulation. 2 Acute respiratory arrest secondary to above requiring intubation mechanical ventilatory support, extubated 10/31/2019 3 Acute hypotension with suspected septic shock requiring norepinephrine, recovered 4 shock liver secondary to above 5 Acute on chronic renal failure, current creatinine 4.22 6 Leukocytosis 7 Coagulopathy secondary to shock liver 8 Chronic pancreatitis 9 History of alcoholism 10 Chronic normocytic anemia 11 Previous history of ventilatory dependent respiratory failure secondary to MSSA pneumonia 12 Chronic dysphagia secondary to vocal cord injury with previous PEG tube placement 13 History of previous GI bleed 14 Cerebral atrophy along with chronic small vessel ischemia 15 Poor overall functional performance based on the above-mentioned multiple comorbidities Plan: The patient was seen and evaluated by Dr. Zapien. Chest x-ray and labs reviewed. He is still waiting to hear from the temporary legal guardian prior to proce eding with a dialysis catheter placement and hemodialysis. Patient's overall prognosis remains quite guarded and poor. In the interim, we'll continue with full supportive care. We will continue to follow and make further recommendations based on his clinical status. I, the cosigning physician, performed a history & physical examination of the patient. Lungs sounds with basilar crackles, scattered rhonchi. Maintaining good O2 saturations in the 90s on BiPAP 10/5 and 50% FiO2. I discussed the assessment and plan of care with my nurse practitioner, Kylee Phan. I attest to the above note as dictated by her.
[2019-11-03 13:04] LABS: Glucose,Whole Blood 129 mg/dL (75-99)
--- NOTE | 2019-11-03 15:24 | PN ---
PROGRESS NOTE DATE OF SERVICE: 11/03/2019 Patient is a 69-year-old white male with acute alcoholic cirrhosis of the liver with pulmonary hypertension with hepatic encephalopathy, admitted to the hospital following a cardiopulmonary arrest. The patient was started on BiPAP last night. He remains clearly confused. Ammonia level is 120. Remains on Xifaxan as well as lactulose. PHYSICAL EXAMINATION: Blood pressure 113/72. Pulse rate 128. HEENT: Unremarkable. Conjunctivae pink. Sclerae anicteric. Oral cavity no lesions. CHEST: Decreased breath sounds bilaterally. HEART: Regular rate and rhythm. ABDOMEN: Soft. EXTREMITIES: No pedal edema. NEUROLOGICAL: lethargic. LABS: WBC 14.2, hemoglobin 8.2, platelets 45,000. Basic metabolic panel, BUN and creatinine ammonia level of 102. IMPRESSION: 1. Status post cardiopulmonary arrest. Presently remains on BIPAP. 2. Severe altered mental status with lethargy. 3. Cirrhosis of the liver with portal hypertension. 4. Possible hepatic encephalopathy. 5. Acute kidney injury. RECOMMENDATIONS: 1. Continue symptomatic and supportive care. 2. Continue Xifaxan as well as lactulose. 3. Monitor ammonia level on a daily basis. 4. We will follow with you. Thank you for this consultation. MMODL / IJN: [id number] /
[2019-11-03 18:18] LABS: Glucose,Whole Blood 121 mg/dL (75-99)
--- NOTE | 2019-11-03 21:47 | P.PN ---
Progress Note - Text Progress Note Date: 11/03/19 Presenting complaint: Short of breath Interval history: From the records: This is a 69 years old male With multiple medical problems as below. Patient is intubated and unresponsive and could not provide information so it was obtained from staff and medical records, no family at bedside. Patient Presents because the neighbors called 911/AMS 4 patient was dyspneic, and brought to the hospital patient became unresponsive with PEA in ambulance, CPR was in associated, he got 3 samples of epinephrine in the ambulance and 1 other dose of epinephrine in the hospital. His CPR downtown was about 20 minutes Patient also hypoglycemic and hypothermic and hypotensive , blood glucose was 20 h glucose D 50% with partial correction and was placed on D10% effusion, however his sugar jumped to 800 so D10%was stopped and currently glucose in around 300. He was placed on Jarad hugger and Currently he is on Levophed at 0.57 which is high dose showing leukocytosis of 12.9 and 19.7 K, hemoglobin 6.6 corrected to 9.2 after blood transfusion, platelets 46 and 50 5K. INR 4.5 and 3.9. PH was 6.9 and 7. 2. Creatinine 2.6 which are unknown baseline. Lactic acid 8.0 7.0. Elevated liver enzymes with AST 3652 and ALT 472 . Troponin is negative Hemoglobin was 6 and INR was 4 and he got 1 dose of vitamin K and 2 units of blood transfusion Patient got Zithromax and ceftriaxone in the emergency room, patient continued on Zosyn, patient extubated on October 30. Has a court-appointed guardian. Today-In the ICU. Continues to do poorly.. Barely arousable. No urine output. Decision made not to place a dialysis catheter. Review of systems: Patient unable to answer questions Active Medications Albuterol/Ipratropium (Duoneb 0.5 Mg-3 Mg/3 Ml Soln) 3 ml INHALATION RT-Q2H PRN PRN Reason: Shortness Of Breath Or Wheezing Albuterol/Ipratropium (Duoneb 0.5 Mg-3 Mg/3 Ml Soln) 3 ml INHALATION RT-QID [facility] Last Admin: 11/03/19 19:03 Dose: 3 ml Documented by: Furosemide (Lasix) 80 mg IV Q12HR [facility] Last Admin: 11/03/19 09:34 Dose: 80 mg Documented by: Propofol 1,000 mg/ IV Solution 100 mls @ 0 mls/hr IV .Q0M [facility]; Protocol Last Titration: 10/31/19 08:00 Dose: 0 mcg/kg/min, 0 mls/hr Documented by: Ceftriaxone Sodium 1 gm/ (Sodium Chloride) 50 mls @ 100 mls/hr IVPB Q24HR [facility] Last Admin: 11/03/19 09:35 Dose: 100 mls/hr Documented by: Dextrose/Water (Dextrose 5%-Water Iv Soln) 1,000 mls @ 50 mls/hr IV .Q20H [facility] Last Admin: 11/03/19 03:27 Dose: 50 mls/hr Documented by: Lactulose (Cephulac) 30 gm PO DAILY [facility] Last Admin: 11/03/19 09:34 Dose: 30 gm Documented by: Midodrine (Proamatine) 10 mg PO AC-TID [facility] Last Admin: 11/03/19 17:48 Dose: 10 mg Documented by: Miscellaneous Information (Potassium Per Protocol) 1 each MISCELLANE DAILY PRN; Protocol PRN Reason: Per Protocol Miscellaneous Information (Magnesium Per Protocol) 1 each MISCELLANE DAILY PRN; Protocol PRN Reason: Per Protocol Naloxone HCl (Narcan) 0.2 mg IV Q2M PRN PRN Reason: Opioid Reversal Pantoprazole Sodium (Protonix) 40 mg IVP DAILY [facility] Last Admin: 11/03/19 09:34 Dose: 40 mg Documented by: Rifaximin (Xifaxan) 550 mg PO BID [facility] Stop: 11/30/19 10:31 Last Admin: 11/03/19 09:35 Dose: 550 mg Documented by: Sodium Bicarbonate (Sodium Bicarbonate Tab) 650 mg PO QID [facility] Last Admin: 11/03/19 17:48 Dose: 650 mg Documented by: On examination: VITAL SIGNS: 35.8, 93, 14, 134/49, 97% on the BiPAP GENERAL APPEARANCE: Laying in bed, lethargic, barely arousable HEENT: Normal external appearance of nose and ear. Oral dry, NG tube, BiPAP EYES: Pupils equal. Conjunctiva pale. NECK: JVD not raised. Mass not palpable. RESPIRATORY: Respiratory effort increased, decreased breath sounds,. Expiratory coarse crackles CARDIOVASCULAR: First and second sounds normal. Significant edema ABDOMEN: Soft. Liver and spleen not palpable. No tenderness. No mass palpable. PEG tube site appearance clean. Significant scrotal edema DERMATOLOGICAL: Stage II decubital ulcers NEUROLOGICAL: Barely arousable PSYCHIATRY: Unable to assess INVESTIGATIONS, reviewed in the clinical context: White count 11.2 hemoglobin 8.2 platelets 35 potassium 3.7 creatinine 4.76 Previous testing Chest [id number] infiltrate Computed tomography scan of the chest-bibasilar airspace disease, emphysema changes, chronic calcific pancreatitis, Computed tomography scan of the brain-old lacunar infarct in the jung radiata on the right, chronic changes EEG-suggestive of generalized cerebral dysfunction Assessment: -Status post cardiac arrest witnessed-downtime of about 12 minutes. -Chronic kidney disease stage III from nephrosclerosis -Acute kidney injury possibly ATN multifactorial worsening, no urine output -Moderate protein calorie malnutrition -worsening -Hepatic encephalopathy on lactulose-no improvement -Chronic medical debility does use a wheelchair -Chronic esophagitis -Chronic dysphagia -Ischemic hepatitis from hypotension-improving -Hypocalcemia -Aspiration pneumonia due to altered mental status -Chronic pancreatitis -Combination of metabolic and respiratory acidosis. -acute hypoxic respiratory failure, on ventilator -extubated October 30 -Hypotensive and/or septic shock requiring pressor support-now on midodrine -Significant edema due to third spacing from severe hypoalbuminemia -Stage II decubitus ulcer -Metabolic encephalopathy-not improving -Court-appointed guardian -Severe metabolic acidosis, from renal failure Plan: -Patient condition doing poorly. Decision has been made with the middleware developer and neurourologist not to proceed with dialysis catheter. Totally appropriate. Patient is "getting has been brought forward to Monday that is tomorrow before patient's CODE STATUS can be addressed. In the meantime in the best interest of the patient would not be alvarez to resuscitate the patient given all 3 physicians feels the same strongly. That might entail suffering to the patient if patient is resuscitated in the event of cardiac arrest. Legal orders elevated from the Court for the DO NOT RESUSCITATE and hopefully the comfort measures. As per the nurse Dr. Zapien did reach out to the legal guardian.
[2019-11-04 02:30] LABS: Glucose,Whole Blood 109 mg/dL (75-99)
[2019-11-04 04:18] LABS: Calcium 9.2 mg/dL (8.4-10.2); Potassium 3.5 mmol/L (3.5-5.1); Total Bilirubin 2.2 mg/dL (0.2-1.3); Total Protein 4.5 g/dL (6.3-8.2)
[2019-11-04 04:29] LABS: Anisocytosis Slight; HCT 24.8 % (39.0-53.0); HGB 7.6 gm/dL (13.0-17.5); Hypochromasia Marked; MCH 32.4 pg (25.0-35.0); MCHC 30.7 g/dL (31.0-37.0); MCV 105.7 fL (80.0-100.0); Macrocytosis Marked; RBC 2.35 m/uL (4.30-5.90); RDW 18.4 % (11.5-15.5); WBC 11.1 k/uL (3.8-10.6)
[2019-11-04 04:40] LABS: Band Neutrophils % 1 %; Eosinophils # (M) 0.33 k/uL (0-0.7); Lymphocytes # (M) 2.66 k/uL (1.0-4.8); Monocytes # (M) 0.22 k/uL (0-1.0); Neutrophils % (M) 70 %; Nucleated Red Blood Cells 0 /100 WBC (0-0); Total Cells Counted 100
[2019-11-04 04:41] LABS: Platelet Count 39 k/uL (150-450); Poikilocytosis (M) Present; Polychromasia Present
[2019-11-04] MEDS ORDERED: POTASSIUM BICARBONATE/CIT AC 20 MEQ TABLET.EFF PO ONE (06:31)
[2019-11-04] MEDS: DEXTROSE 5% IN WATER 1,000 ML IV SCH (06:53)
--- NOTE | 2019-11-04 07:39 | XR ---
EXAMINATION TYPE: XR chest 1V portable DATE OF EXAM: 11/04/2019 CLINICAL HISTORY: Difficulty breathing progress study. TECHNIQUE: Single AP portable semiupright view of the chest is obtained. COMPARISON: Chest x-ray from one day earlier and older studies. CT October 27, 2019. FINDINGS: Stable nasogastric tube and right internal jugular central venous catheter. Background chronic emphysematous and parenchymal fibrotic changes with increased bibasilar opacities and small to tiny left greater than right pleural effusions remain present cardiac silhouette size st able and upper limits of normal. Age-indeterminate left proximal humeral fracture redemonstrated. Par tial visualization of surgical change of the cervical spine noted. IMPRESSION: Chronic emphysematous and parenchymal fibrotic changes with tiny left greater than right pleural effusions and underlying bilateral lower lung edema and/or infiltrates all redemonstrated. No significant change from most recent x-ray.
[2019-11-04] MEDS: LACTULOSE 20 GM/30 ML CUP PO SCH (07:59)
[2019-11-04] MEDS: SODIUM BICARBONATE TAB 650 MG TAB PO SCH ×4 (07:59→21:00)
[2019-11-04] MEDS: PANTOPRAZOLE 40 MG/10 ML VIAL IVP SCH (07:59)
[2019-11-04] MEDS: MIDODRINE 5 MG TAB PO SCH ×3 (07:59→17:31)
[2019-11-04] MEDS: RIFAXIMIN 550 MG TABLET PO SCH ×2 (08:00→21:00)
[2019-11-04] MEDS: FUROSEMIDE 10 MG/ML 10 ML VIAL IV SCH ×2 (08:00→21:00)
[2019-11-04] MEDS: IPRATROPIUM-ALBUTEROL 3 ML NEB INHALATION SCH ×4 (09:19→20:06)
[2019-11-04 09:29] LABS: ABG Base Excess -14.5 mmol/L; ABG HCO3 12 mmol/L (21-25); ABG Oxygen Saturation 97.3 % (94-97); ABG PCO2 26 mmHg (35-45); ABG PH 7.28 (7.35-7.45); ABG PO2 104 mmHg (83-108); ABG TCO2 13 mmol/L (19-24); Allen Test Performed? Yes
[2019-11-04] MEDS: DEXTROSE 5% IN WATER 1,000 ML with SODIUM BICARB (1 MEQ/ML) 150 ML IV SCH (11:06)
[2019-11-04 12:31] LABS: Glucose,Whole Blood 99 mg/dL (75-99)
--- NOTE | 2019-11-04 14:47 | P.PN ---
Subjective Progress Note Date: 11/04/19 This patient is doing poorly. He is a 69-year-old male patient is been hospital post cardiac arrest. The patient is known to have alcoholism, and liver disease secondary to alcoholism/cirrhosis. He is also known to have chronic kidney disease, chronic pancreatitis, hypothyroidism, recurrent UTIs, and previous history of respiratory failure requiring intubation mechanical ventilation. This was attributed to a staphylococcal pneumonia. He also has old lacunar infarcts and his baseline performance and functional status extremely impaired. During this current admission, the patient came in with cardiac arrest. CPR was offered to him for a total of 20 minutes prior to arrival to the hospital and the patient received 3 rounds of epinephrine and he lost his pulse and he was found to be PEA. He arrived pulseless and CPR was continued and there was return of spontaneous circulation ultimately after 20 minutes of resuscitation. He had acute respiratory arrest due to cardiac arrest and the patient required intubation mechanical ventilation and was extubated on 10/31/2019. He is course was Again by shock liver, acute on top of chronic kidney injury where his creatinine is on the rise and the patient is producing diminished amount of urine output. He was extubated and subsequently was placed on a BiPAP for respiratory support. This morning, the patient is pain-free stimulation. Not r esponding to any verbal stimulation. His blood work shows non-anion gap metabolic acidosis with a serum bicarb of 13. BUN is up to 40 now with a creatinine of 5.24. The patient's blood gas show a pH of 7.28 with a pCO2 of 26 and pO2 of 104 and this was done on BiPAP at a pressure of 10/5 cm of water and FiO2 of 40%. He was receiving D5 water at the rate of 50 mL an hour along with some water flushes. He was receiving enteral feeding for nutritional support via an NG tube. Note that his echocardiogram post cardiac arrest with an ejection fraction of around 60% without any significant valvular abnormalities. His chest x-ray from today showing chronic emphysema and some parenchymal fibro tic changes bilaterally left more than right. There is also some bilateral lower lung edema demonstrated. No sedated and change compared to yesterday chest x-ray. Ammonia level is improving. Ammonia level is down to 79 as the patient is receiving Xifaxan. The patient is also on lactulose. He has an FMS system in place. He is also on lactulose. Objective - Vital Signs Vital signs: Vital Signs Temp 95.9 F L 11/04/19 12:00 Pulse 80 11/04/19 14:00 Resp 13 11/04/19 14:00 BP 109/61 11/04/19 03:00 Pulse Ox 98 11/04/19 14:00 Intake & Output 11/03/19 11/04/19 11/04/19 18:59 06:59 18:59 Intake Total 636 689 401 Output Total 1035 725 205 Balance -399 -36 196 Weight 66.2 kg 66.2 kg Intake: IV 636 689 171 Dextrose 5% in Water 1, 600 650 150 000 ml @ 50 mls/hr IV . Q20H [facility] Rx#:[id number] Pressure Bag 0.9 36 39 21 Intake, IV Titration 200 Amount Dextrose 5% in Water 1, 200 000 ml @ 50 mls/hr IV . Q23H [facility] with Sodium Bicarb (1 Meq/ml) 150 ml Rx#:[id number] Tube Feeding 30 Output: Gastric Drainage 400 200 Urine 635 525 205 Other: Voiding Method Indwelling Catheter Indwelling Catheter Indwelling Catheter ABP, PAP, CO, CI - Last Documented Arterial Blood Pressure 127/49 - Exam GENERAL EXAM: Minimally responsive 69-year-old male patient, extremely weak, he is on BiPAP 10/5 and 50% FiO2, NG tube is in place quite pale and chronically ill appearing HEAD: Normocephalic/atraumatic. EYES: Normal reaction of pupils, equal size. Conjunctiva pink, sclera white. NOSE: Clear with pink turbinates. NG tube is in place to low intermittent suction THROAT: No erythema or exudates. NECK: No masses, no JVD, no thyroid enlargement, no adenopathy. CHEST: No chest wall deformity. Symmetrical expansion. LUNGS: Equal air entry with basilar crackles and scattered rhonchi CVS: Regular rate and rhythm, normal S1 and S2, no gallops, no murmurs, no rubs ABDOMEN: Soft, nontender. No hepatosplenomegaly, normal bowel sounds, no guar ding or rigidity. EXTREMITIES: No clubbing, no cyanosis, 2+ pulses and upper and lower extremities. Generalized anasarca, swelling, 2+ lower extremity edema, 1+ upper extremity edema, edema involving abdominal wall, and severe scrotal edema MUSCULOSKELETAL: Muscle strength and tone normal. SPINE: No scoliosis or deformity SKIN: No rashes CENTRAL NERVOUS SYSTEM: No focal deficits, tone is normal in all 4 extremities. PSYCHIATRIC: Unresponsive to verbal or painful stimulation. Pupils are equal and reactive to light. No nystagmus or clonus no facial asymmetry. Reflexes are diminished. - Labs CBC & Chem 7: 11/04/19 03:50 11/04/19 03:50 Labs: Abnormal Lab Results - Last 24 Hours (Table) 11/03/19 11/04/19 11/04/19 Range/Units 18:17 02:27 03:50 WBC 11.1 H (3.8-10.6) k/uL RBC 2.35 L (4.30-5.90) m/uL Hgb 7.6 L (13.0-17.5) gm/dL Hct 24.8 L (39.0-53.0) % MCV 105.7 H (80.0-100.0) fL MCHC 30.7 L (31.0-37.0) g/dL RDW 18.4 H (11.5-15.5) % Plt Count 39 L (150-450) k/uL Neutrophils # (Manual) 7.80 H (1.3-7.7) k/uL Macrocytosis Marked A ABG pH (7.35-7.45) ABG pCO2 (35-45) mmHg ABG HCO3 (21-25) mmol/L ABG Total CO2 (19-24) mmol/L ABG O2 Saturation (94-97) % Chloride (98-107) mmol/L Carbon Dioxide (22-30) mmol/L BUN (9-20) mg/dL Creatinine (0.66-1.25) mg/dL Glucose (74-99) mg/dL POC Glucose (mg/dL) 121 H 109 H (75-99) mg/dL Total Bilirubin (0.2-1.3) mg/dL Ammonia (<30) umol/L Total Protein (6.3-8.2) g/dL Albumin (3.5-5.0) g/dL 11/04/19 11/04/19 11/04/19 Range/Units 03:50 03:57 09:26 WBC (3.8-10.6) k/uL RBC (4.30-5.90) m/uL Hgb (13.0-17.5) gm/dL Hct (39.0-53.0) % MCV (80.0-100.0) fL MCHC (31.0-37.0) g/dL RDW (11.5-15.5) % Plt Count (150-450) k/uL Neutrophils # (Manual) (1.3-7.7) k/uL Macrocytosis ABG pH 7.28 L (7.35-7.45) ABG pCO2 26 L (35-45) mmHg ABG HCO3 12 L (21-25) mmol/L ABG Total CO2 13 L (19-24) mmol/L ABG O2 Saturation 97.3 H (94-97) % Chloride 116 H (98-107) mmol/L Carbon Dioxide 13 L (22-30) mmol/L BUN 49 H (9-20) mg/dL Creatinine 5.42 H (0.66-1.25) mg/dL Glucose 106 H (74-99) mg/dL POC Glucose (mg/dL) (75-99) mg/dL Total Bilirubin 2.2 H (0.2-1.3) mg/dL Ammonia 79 H (<30) umol/L Total Protein 4.5 L (6.3-8.2) g/dL Albumin 2.0 L (3.5-5.0) g/dL Assessment and Plan Plan: 1 Cardiac arrest with approximate 20 minutes of CPR, for epinephrine and subsequent return of spontaneous circulation. 2 Acute respiratory arrest secondary to above requiring intubation mechanical ventilatory support, extubated 10/31/2019 3 Acute hypotension with suspected septic shock requiring norepinephrine, recovered 4 shock liver secondary to above, improved 5 Acute on chronic renal failure, current creatinine creatinine is on the rise in the patient's creatinine today is at 5.42 6 altered mentation, responsiveness. The patient could have an underlying component of anoxic encephalopathy. The CAT scan of the brain showed old lacunar infarcts. At the same time there may be a component of metabolic encephalopathy as the patient is in chronic liver failure and acute on top of chronic kidney injury. 7 Coagulopathy secondary to shock liver and chronic liver disease, most recent INR is down to 1.7 8 Chronic pancreatitis 9 History of alcoholism 10 Chronic normocytic anemia 11 Previous history of ventilatory dependent respiratory failure secondary to MSSA pneumonia 12 Chronic dysphagia secondary to vocal cord injury with previous PEG tube placement, the patient is tolerating enteral feeding for nutritional support. The patient is also on a combination of lactulose and Xifaxan. 13 History of previous GI bleed 14 Cerebral atrophy along with chronic small vessel ischemia Plan The prognosis remains extremely poor baseline above-mentioned morbidities. There is a ongoing legal issue for guardianship and social workers on the case working with the appropriate court system to establish guardianship. Meanwhile, the patient is receiving supportive care. I am not in favor of interviewing this patient on offering him any dialysis based on his very poor prognosis and poor baseline performance and functional status. I am going to put him on a bicarb infusion. I reviewed the blood gases continue the BiPAP for now. Continue enteral feeding. Continue lactulose. Continue Xifaxan. Continue empiric antibiotic coverage. We'll make further recommendations once guardianship has been obtained on this patient.
--- NOTE | 2019-11-04 16:34 | PN ---
PROGRESS NOTE Patient is seen for followup for acute kidney injury. The patient remains obtunded. He is maintained on BiPAP. Urine output is borderline. His serum creatinine has increased to 5.4. Awaiting guardianship for consideration of change in code status to comfort care measures/hospice care. Patient is maintained on lactulose. He has loose stools. On examination today, patient was obtunded. Blood pressure was 119/47, heart rate 80 per minute. He is afebrile. EXAMINATION OF THE HEART: S1 and S2. EXAMINATION OF LUNGS: Bilateral breath sounds are heard. ABDOMEN: Soft, distended. Examination of lower extremities shows trace edema. SMALL ELECTRIC ENGINE TECHNICIAN exam cannot be performed. Patient is unresponsive. Labs show sodium 140, potassium 3.5, chloride 116. CO2 is 13, BUN 49, creatinine 5.42. ASSESSMENT: 1. Acute kidney injury, acute tubular necrosis, currently nonoliguric. However, urine output is on the borderline. Renal function has worsened, but patient is not a candidate for dialysis. Recommend comfort care/hospice measures. 2. Severe metabolic acidosis associated with renal failure as well as diarrhea, mostly non-gap. Start IV bicarb. 3. Anemia; no active bleeding currently. Patient is being followed by GI. 4. Status post cardiac arrest. PLAN: Start IV bicarb. Continue empiric antibiotics. May continue with the Lasix. Patient is not a candidate for dialysis. Recommend comfort care/hospice care. MMODL / IJN: [id number] /
--- NOTE | 2019-11-04 18:39 | P.PN ---
Subjective Progress Note Date: 11/04/19 Principal diagnosis: Hepatic Encephalopathy Post cardiac arrest Patient was seen at bedside and was not responding. Per nurse he is not on sedation and has not been moving any of his extremities or responsding to questions. No jerking or any abnormal movement noted. His ammonia continues to be elevated and is on Lactulose and Rifaximin. Creatnine level are elevated. Objective - Vital Signs Vital signs: Vital Signs Temp 97.0 F L 11/04/19 04:00 Pulse 96 11/04/19 09:44 Resp 22 11/04/19 07:00 BP 109/61 11/04/19 03:00 Pulse Ox 95 11/04/19 07:00 Intake & Output 11/03/19 11/04/19 11/04/19 18:59 06:59 18:59 Intake Total 636 689 Output Total 1035 725 Balance -399 -36 Weight 66.2 kg Intake: IV 636 689 Dextrose 5% in Water 1, 600 650 000 ml @ 50 mls/hr IV . Q20H [facility] Rx#:[id number] Pressure Bag 0.9 36 39 Output: Gastric Drainage 400 200 Urine 635 525 Other: Voiding Method Indwelling Catheter Indwelling Catheter ABP, PAP, CO, CI - Last Documented Arterial Blood Pressure 124/46 - Exam Exam is limited because of patient condition: General: Patient does not seem in distress. HENT: supple Respiratory: Clear to ausculation and no wheezing noted. Neurological: Higher mental function: Not responsive to verbal stimuli or following commands. Cranial Nerves: Pupils are 2mm bilaterally and reactive to light. Primary gaze is midline. No facial weakness noted. Motor: Strength: Quadraparesis. No spontaneous movement noted. Sensory: With painful stimuli on right upper extremity slightly opened his eyes and slightly looked toward me to right but otherwise not anywhere else. Reflexes: 1-2+ throught except at ankles 0 bilaterally. Plantars: mute bilaterally. - Labs CBC & Chem 7: 11/04/19 03:50 11/04/19 03:50 Labs: Abnormal Lab Results - Last 24 Hours (Table) 11/03/19 11/03/19 11/04/19 Range/Units 13:03 18:17 02:27 WBC (3.8-10.6) k/uL RBC (4.30-5.90) m/uL Hgb (13.0-17.5) gm/dL Hct (39.0-53.0) % MCV (80.0-100.0) fL MCHC (31.0-37.0) g/dL RDW (11.5-15.5) % Plt Count (150-450) k/uL Neutrophils # (Manual) (1.3-7.7) k/uL Macrocytosis ABG pH (7.35-7.45) ABG pCO2 (35-45) mmHg ABG HCO3 (21-25) mmol/L ABG Total CO2 (19-24) mmol/L ABG O2 Saturation (94-97) % Chloride (98-107) mmol/L Carbon Dioxide (22-30) mmol/L BUN (9-20) mg/dL Creatinine (0.66-1.25) mg/dL Glucose (74-99) mg/dL POC Glucose (mg/dL) 129 H 121 H 109 H (75-99) mg/dL Total Bilirubin (0.2-1.3) mg/dL Ammonia (<30) umol/L Total Protein (6.3-8.2) g/dL Albumin (3.5-5.0) g/dL 11/04/19 11/04/19 11/04/19 Range/Units 03:50 03:50 03:57 WBC 11.1 H (3.8-10.6) k/uL RBC 2.35 L (4.30-5.90) m/uL Hgb 7.6 L (13.0-17.5) gm/dL Hct 24.8 L (39.0-53.0) % MCV 105.7 H (80.0-100.0) fL MCHC 30.7 L (31.0-37.0) g/dL RDW 18.4 H (11.5-15.5) % Plt Count 39 L (150-450) k/uL Neutrophils # (Manual) 7.80 H (1.3-7.7) k/uL Macrocytosis Marked A ABG pH (7.35-7.45) ABG pCO2 (35-45) mmHg ABG HCO3 (21-25) mmol/L ABG Total CO2 (19-24) mmol/L ABG O2 Saturation (94-97) % Chloride 116 H (98-107) mmol/L Carbon Dioxide 13 L (22-30) mmol/L BUN 49 H (9-20) mg/dL Creatinine 5.42 H (0.66-1.25) mg/dL Glucose 106 H (74-99) mg/dL POC Glucose (mg/dL) (75-99) mg/dL Total Bilirubin 2.2 H (0.2-1.3) mg/dL Ammonia 79 H (<30) umol/L Total Protein 4.5 L (6.3-8.2) g/dL Albumin 2.0 L (3.5-5.0) g/dL 11/04/19 Range/Units 09:26 WBC (3.8-10.6) k/uL RBC (4.30-5.90) m/uL Hgb (13.0-17.5) gm/dL Hct (39.0-53.0) % MCV (80.0-100.0) fL MCHC (31.0-37.0) g/dL RDW (11.5-15.5) % Plt Count (150-450) k/uL Neutrophils # (Manual) (1.3-7.7) k/uL Macrocytosis ABG pH 7.28 L (7.35-7.45) ABG pCO2 26 L (35-45) mmHg ABG HCO3 12 L (21-25) mmol/L ABG Total CO2 13 L (19-24) mmol/L ABG O2 Saturation 97.3 H (94-97) % Chloride (98-107) mmol/L Carbon Dioxide (22-30) mmol/L BUN (9-20) mg/dL Creatinine (0.66-1.25) mg/dL Glucose (74-99) mg/dL POC Glucose (mg/dL) (75-99) mg/dL Total Bilirubin (0.2-1.3) mg/dL Ammonia (<30) umol/L Total Protein (6.3-8.2) g/dL Albumin (3.5-5.0) g/dL Assessment and Plan Assessment: 69 y/o male with witnessed cardiac arrest with downtime of around 12 minute. Encephalopathy and quadraparesis due multifactorial: hepatic encephalopathy with elevated ammonia, MUMTAZ on CKI and result of post-cardiac arrest. Per Dr. Tyler noted patient mentation was improving but upon seeing him and talking to his nurse his mentation continues to be altered. Hepatic encephalopathy MUMTAZ on CKD Post-cardiac arrest Shock liver due to above coagulopathy History of alcoholism Plan: CT head 10/27/19: No acute abnormalities but showed old right lacunar infarct in jung radiata, chronic white matter changes Patient EEG 10/27 showed generalized cerebral dysfunction as can be seen with toxic metabolic encephalopathy or diffuse structural brain abnormality. Presence of triphasic waves suggest hepatic encephalopathy. Vitamin 12 is 122 but Methylmalonic acid is 0.73 (elevated). RBC folate is normal. -Regarding his encephalopathy and quadraparesis could be due to his multiple medical issues. If condition does not improves and with improvement in ammonia level the consider repeating CT head w/o constrast and if not abnormality seen consider MRI Brain and consider MRI C-spine -regarding high ammonia level patient is on Lactulose 300mg daily and Rifaximin 550mg bid. Defer management to ICU and primary team. -Regarding management of his medical issues we will defer to ICU and primary team. We will continue to follow. Donell Zapien MD Neuro-hospitalist Time with Patient: Greater than 30
--- NOTE | 2019-11-04 18:55 | P.PN ---
Progress Note - Text Progress Note Date: 11/04/19 Presenting complaint: Short of breath Interval history: From the records: This is a 69 years old male With multiple medical problems as below. Patient is intubated and unresponsive and could not provide information so it was obtained from staff and medical records, no family at bedside. Patient Presents because the neighbors called 911/AMS 4 patient was dyspneic, and brought to the hospital patient became unresponsive with PEA in ambulance, CPR was in associated, he got 3 samples of epinephrine in the ambulance and 1 other dose of epinephrine in the hospital. His CPR downtown was about 20 minutes Patient also hypoglycemic and hypothermic and hypotensive , blood glucose was 20 h glucose D 50% with partial correction and was placed on D10% effusion, however his sugar jumped to 800 so D10%was stopped and currently glucose in around 300. He was placed on Jarad hugger and Currently he is on Levophed at 0.57 which is high dose showing leukocytosis of 12.9 and 19.7 K, hemoglobin 6.6 corrected to 9.2 after blood transfusion, platelets 46 and 50 5K. INR 4.5 and 3.9. PH was 6.9 and 7. 2. Creatinine 2.6 which are unknown baseline. Lactic acid 8.0 7.0. Elevated liver enzymes with AST 3652 and ALT 472 . Troponin is negative Hemoglobin was 6 and INR was 4 and he got 1 dose of vitamin K and 2 units of blood transfusion Patient got Zithromax and ceftriaxone in the emergency room, patient continued on Zosyn, patient extubated on October 30. Pending hearing for a court-appointed guardian. Today-In the ICU. He remains barely arousable. Due feeding started. Bicarbonate drip. On BiPAP. Telemetry shows sinus rhythm. Court hearing on Monday to a point the guardian. Patient to remain full code until then. Review of systems: Patient not responding Active Medications Albuterol/Ipratropium (Duoneb 0.5 Mg-3 Mg/3 Ml Soln) 3 ml INHALATION RT-Q2H PRN PRN Reason: Shortness Of Breath Or Wheezing Albuterol/Ipratropium (Duoneb 0.5 Mg-3 Mg/3 Ml Soln) 3 ml INHALATION RT-QID [facility] Last Admin: 11/04/19 16:06 Dose: 3 ml Documented by: Furosemide (Lasix) 80 mg IV Q12HR [facility] Last Admin: 11/04/19 08:00 Dose: 80 mg Documented by: Propofol 1,000 mg/ IV Solution 100 mls @ 0 mls/hr IV .Q0M [facility]; Protocol Last Titration: 10/31/19 08:00 Dose: 0 mcg/kg/min, 0 mls/hr Documented by: Ceftriaxone Sodium 1 gm/ (Sodium Chloride) 50 mls @ 100 mls/hr IVPB Q24HR [facility] Last Admin: 11/04/19 07:58 Dose: 100 mls/hr Documented by: Sodium Bicarbonate 150 ml/ (Dextrose/Water) 1,150 mls @ 50 mls/hr IV .Q23H [facility] Last Admin: 11/04/19 11:06 Dose: 50 mls/hr Documented by: Lactulose (Cephulac) 30 gm PO DAILY [facility] Last Admin: 11/04/19 07:59 Dose: 30 gm Documented by: Midodrine (Proamatine) 10 mg PO AC-TID [facility] Last Admin: 11/04/19 17:31 Dose: 10 mg Documented by: Miscellaneous Information (Potassium Per Protocol) 1 each MISCELLANE DAILY PRN; Protocol PRN Reason: Per Protocol Miscellaneous Information (Magnesium Per Protocol) 1 each MISCELLANE DAILY PRN; Protocol PRN Reason: Per Protocol Naloxone HCl (Narcan) 0.2 mg IV Q2M PRN PRN Reason: Opioid Reversal Pantoprazole Sodium (Protonix) 40 mg IVP DAILY [facility] Last Admin: 11/04/19 07:59 Dose: 40 mg Documented by: Rifaximin (Xifaxan) 550 mg PO BID [facility] Stop: 11/30/19 10:31 Last Admin: 11/04/19 08:00 Dose: 550 mg Documented by: Sodium Bicarbonate (Sodium Bicarbonate Tab) 650 mg PO QID [facility] Last Admin: 11/04/19 17:31 Dose: 650 mg Documented by: On examination: VITAL SIGNS: 95.9, 86, codeine, 120/48, 97% on BiPAP GENERAL APPEARANCE: Laying in bed with the BiPAP, barely arousable. Absent corneal reflex. Minimal response to pain. Positive doll's eye movement HEENT: Normal external appearance of nose and ear. Oral cavity dry, NG tube, BiPAP EYES: Pupils equal. Conjunctiva pale. NECK: JVD not raised. Mass not palpable. RESPIRATORY: Respiratory effort increased, decreased breath sounds,. Expiratory coarse crackles CARDIOVASCULAR: First and second sounds normal. Significant edema ABDOMEN: Soft. Liver and spleen not palpable. No tenderness. No mass palpable. PEG tube site appearance clean. Significant scrotal edema DERMATOLOGICAL: Stage II decubital ulcers NEUROLOGICAL: Absent corneal reflex, absent gag reflex PSYCHIATRY: Unable to assess INVESTIGATIONS, reviewed in the clinical context: White count 11.1 hemoglobin 7.6 platelets 39 ABG pH 7.28 potassium 3.5 creatinine 5.42 Previous testing Chest [id number] infiltrate Computed tomography scan of the chest-bibasilar airspace disease, emphysema changes, chronic calcific pancreatitis, Computed tomography scan of the brain-old lacunar infarct in the jung radiata on the right, chronic changes EEG-suggestive of generalized cerebral dysfunction Assessment: -Status post cardiac arrest witnessed-downtime of about 12 minutes. -Chronic kidney disease stage III from nephrosclerosis -Acute kidney injury possibly ATN multifactorial worsening, no urine output -Moderate protein calorie malnutrition -worsening -Hepatic encephalopathy on lactulose-no improvement -Chronic medical debility does use a wheelchair -Chronic esophagitis -Chronic dysphagia -Ischemic hepatitis from hypotension-improving -Hypocalcemia -Aspiration pneumonia due to altered mental status -Chronic pancreatitis -Combination of metabolic and respiratory acidosis. -acute hypoxic respiratory failure, on ventilator -extubated October 30 -Hypotensive and/or septic shock requiring pressor support-now on midodrine -Significant edema due to third spacing from severe hypoalbuminemia -Stage II decubitus ulcer -Metabolic encephalopathy-worsening not improving -Court-appointed guardian -Severe metabolic acidosis, from renal failure Plan: Patient's court hearing is on Monday when the court-appointed guardian will become a physician. In the meantime patient to remain full code. Continue supportive care. Patient continues to do poorly.
--- NOTE | 2019-11-04 20:38 | PN ---
PROGRESS NOTE DATE OF DICTATION: 11/04/2019 This patient is a 69-year-old white male with alcoholic cirrhosis of the liver, portal hypertension and hepatic encephalopathy, admitted following cardiopulmonary arrest. The patient remains on BiPAP, not responsive. No acute events noted overnight, as per the nursing staff. PHYSICAL EXAMINATION: Blood pressure 131/50, pulse rate 81, temperature 98. HEENT examination unremarkable. Conjunctivae pink. Sclerae anicteric. NECK: No JVD or lymph node enlargement. CHEST: Clear to auscultation. HEART: Regular rate and rhythm. ABDOMEN: Soft. EXTREMITIES: No pedal edema. NEUROLOGIC: Unresponsive. LABS: Labs from today show WBC 11.7, hemoglobin 11.6, platelets 39,000. BUN 49, creatinine 5.42. IMPRESSION: 1. Altered mental status secondary to hepatic encephalopathy. Patient may have a component of anoxic encephalopathy. 2. Status post cardiopulmonary arrest prior to admission to the hospital. 3. Shortness of breath, on BiPAP. 4. Alcoholic liver disease with cirrhosis of the liver. 5. Hepatic encephalopathy. 6. Acute on chronic kidney disease. RECOMMENDATIONS: 1. Continue Xifaxan and oral lactulose. 2. Continue symptomatic and supportive care. 3. As per the nursing staff, social workers are working on legal guardianship at the present time and considering comfort care. 4. Will follow with you closely. Thank you for this consultation. MMODL / IJN: [id number] /
[2019-11-05 04:56] LABS: Glucose,Whole Blood 110 mg/dL (75-99)
[2019-11-05 05:21] LABS: Anisocytosis Slight; HCT 23.9 % (39.0-53.0); HGB 7.2 gm/dL (13.0-17.5); Hypochromasia Moderate; MCH 32.2 pg (25.0-35.0); MCHC 30.3 g/dL (31.0-37.0); MCV 106.4 fL (80.0-100.0); Macrocytosis Marked; Mean Platelet Volume 11.7; RBC 2.25 m/uL (4.30-5.90); RDW 19.3 % (11.5-15.5)
[2019-11-05 05:23] LABS: Calcium 9.6 mg/dL (8.4-10.2); Potassium 3.5 mmol/L (3.5-5.1)
[2019-11-05 05:47] LABS: Band Neutrophils % 2 %; Eosinophils # (M) 0.13 k/uL (0-0.7); Lymphocytes # (M) 2.86 k/uL (1.0-4.8); Monocytes # (M) 0.39 k/uL (0-1.0); Neutrophils % (M) 72 %; Nucleated Red Blood Cells 0 /100 WBC (0-0); Total Cells Counted 100
[2019-11-05 05:48] LABS: Platelet Count 47 k/uL (150-450); Poikilocytosis (M) Present; Polychromasia Present; Target Cells Present
[2019-11-05 06:02] LABS: Glucose,Whole Blood 113 mg/dL (75-99)
[2019-11-05] MEDS ORDERED: POTASSIUM BICARBONATE/CIT AC 20 MEQ TABLET.EFF PO ONE (06:20)
[2019-11-05] MEDS: DEXTROSE 5% IN WATER 1,000 ML with SODIUM BICARB (1 MEQ/ML) 150 ML IV SCH (06:41)
[2019-11-05] MEDS: MIDODRINE 5 MG TAB PO SCH ×3 (06:42→17:06)
--- NOTE | 2019-11-05 06:55 | XR ---
EXAMINATION TYPE: XR chest 1V portable DATE OF EXAM: 11/05/2019 COMPARISON: November 04, 2019 HISTORY: SOB, Follow Up FINDINGS: Indwelling tubes and catheters are unchanged. No change in bibasilar opacities. Stable appearance of the cardio-mediastinal structures at this time. IMPRESSION: 1. Stable portable chest. Clinical correlation and follow up until resolution is recommended.
[2019-11-05] MEDS: IPRATROPIUM-ALBUTEROL 3 ML NEB INHALATION SCH ×4 (08:58→19:58)
[2019-11-05] MEDS: PANTOPRAZOLE 40 MG/10 ML VIAL IVP SCH (09:13)
[2019-11-05] MEDS: SODIUM BICARBONATE TAB 650 MG TAB PO SCH ×4 (09:13→21:25)
[2019-11-05] MEDS: RIFAXIMIN 550 MG TABLET PO SCH ×2 (09:13→21:25)
[2019-11-05] MEDS: FUROSEMIDE 10 MG/ML 10 ML VIAL IV SCH ×2 (09:13→21:25)
[2019-11-05 11:53] LABS: Glucose,Whole Blood 124 mg/dL (75-99)
[2019-11-05] MEDS: POTASSIUM BICARBONATE/CIT AC 20 MEQ TABLET.EFF NG-TUBE SCH ×2 (12:09→13:57)
--- NOTE | 2019-11-05 13:35 | P.PN ---
Subjective Progress Note Date: 11/05/19 This patient is doing poorly. He is a 69-year-old male patient is been hospital post cardiac arrest. The patient is known to have alcoholism, and liver disease secondary to alcoholism/cirrhosis. He is also known to have chronic kidney disease, chronic pancreatitis, hypothyroidism, recurrent UTIs, and previous history of respiratory failure requiring intubation mechanical ventilation. This was attributed to a staphylococcal pneumonia. He also has old lacunar infarcts and his baseline performance and functional status extremely impaired. During this current admission, the patient came in with cardiac arrest. CPR was offered to him for a total of 20 minutes prior to arrival to the hospital and the patient received 3 rounds of epinephrine and he lost his pulse and he was found to be PEA. He arrived pulseless and CPR was continued and there was return of spontaneous circulation ultimately after 20 minutes of resuscitation. He had acute respiratory arrest due to cardiac arrest and the patient required intubation mechanical ventilation and was extubated on 10/31/2019. He is course was Again by shock liver, acute on top of chronic kidney injury where his creatinine is on the rise and the patient is producing diminished amount of urine output. He was extubated and subsequently was placed on a BiPAP for respiratory support. This morning, the patient is pain-free stimulation. Not r esponding to any verbal stimulation. His blood work shows non-anion gap metabolic acidosis with a serum bicarb of 13. BUN is up to 40 now with a creatinine of 5.24. The patient's blood gas show a pH of 7.28 with a pCO2 of 26 and pO2 of 104 and this was done on BiPAP at a pressure of 10/5 cm of water and FiO2 of 40%. He was receiving D5 water at the rate of 50 mL an hour along with some water flushes. He was receiving enteral feeding for nutritional support via an NG tube. Note that his echocardiogram post cardiac arrest with an ejection fraction of around 60% without any significant valvular abnormalities. His chest x-ray from today showing chronic emphysema and some parenchymal fibro tic changes bilaterally left more than right. There is also some bilateral lower lung edema demonstrated. No sedated and change compared to yesterday chest x-ray. Ammonia level is improving. Ammonia level is down to 79 as the patient is receiving Xifaxan. The patient is also on lactulose. He has an FMS system in place. He is also on lactulose. On 11/05/2019 and seeing this patient for a follow-up. The patient is essentially the same. The patient remains unresponsive. The patient's heart is responding to any verbal or painful stimulation. He remains quite encephalopathic and this could be a combination of factors including possibility of hypoxic encephalopathy post cardiac arrest in addition to hepatic/renal encephalopathy as the patient is an liver and kidney failure. On yesterday's evaluation, the patient had a component of non-anion gap metabolic acidosis. He was started on bicarb drip which is still running at a rate of 100 mL an hour. The patient is producing adequate amount of urine output. The patient is also having liquidy stool and the patient is currently on a combination of Xifaxan and lactulose for hepatic encephalopathy. The patient has a fecal management system in place. Meanwhile, the renal function is still impaired and the creatinine is on the rise. On today's evaluation , the patient's serum bicarbonate was up to 16. Creatinine is up to 5.9 with a mean of 52. Glucose is 106. We are still not planning any dialysis and we are considering sending patient to come for care measures once guardianship has been established. Meanwhile, the patient remains BiPAP dependent at the pressure of 10/5 with an FiO2 of 40%. Chest x-ray shows essentially no significant change impaired to yesterday's chest x-ray . The patient has a Zhu catheter in place. The patient has an NG tube in place. The patient is receiving enteral feeding for nutritional support. Lactulose will be discontinued for now. Urine output is normal at 15-20 mL an hour. Objective - Vital Signs Vital signs: Vital Signs Temp 96.9 F L 11/05/19 12:00 Pulse 88 11/05/19 13:02 Resp 15 11/05/19 13:00 BP 109/61 11/05/19 08:00 Pulse Ox 100 11/05/19 13:00 Intake & Output 11/04/19 11/05/19 11/05/19 18:59 06:59 18:59 Intake Total 741 940 876 Output Total 350 292 115 Balance 391 648 761 Weight 66.2 kg 65.3 kg 61.7 kg Intake: IV 186 580 371 Dextrose 5% in Water 1, 150 000 ml @ 50 mls/hr IV . Q20H [facility] Rx#:[id number] Dextrose 5% in Water 1, 550 350 000 ml @ 50 mls/hr IV . Q23H [facility] with Sodium Bicarb (1 Meq/ml) 150 ml Rx#:[id number] Pressure Bag 0.9 36 30 21 Intake, IV Titration 450 Amount Dextrose 5% in Water 1, 450 000 ml @ 50 mls/hr IV . Q23H [facility] with Sodium Bicarb (1 Meq/ml) 150 ml Rx#:[id number] Tube Feeding 105 270 315 Other 90 190 Output: Urine 350 292 115 Other: Voiding Method Indwelling Catheter Indwelling Catheter Indwelling Catheter ABP, PAP, CO, CI - Last Documented Arterial Blood Pressure 137/51 - Exam GENERAL EXAM: Minimally responsive 69-year-old male patient, extremely weak, he is on BiPAP 10/5 and 50% FiO2, NG tube is in place quite pale and chronically ill appearing HEAD: Normocephalic/atraumatic. EYES: Normal reaction of pupils, equal size. Conjunctiva pink, sclera white. NOSE: Clear with pink turbinates. NG tube is in place to low intermittent suction THROAT: No erythema or exudates. NECK: No masses, no JVD, no thyroid enlargement, no adenopathy. CHEST: No chest wall deformity. Symmetrical expansion. LUNGS: Equal air entry with basilar crackles and scattered rhonchi CVS: Regular rate and rhythm, normal S1 and S2, no gallops, no murmurs, no rubs ABDOMEN: Soft, nontender. No hepatosplenomegaly, normal bowel sounds, no guarding or rigidity. EXTREMITIES: No clubbing, no cyanosis, 2+ pulses and upper and lower extremities. Generalized anasarca, swelling, 2+ lower extremity edema, 1+ upper extremity edema, edema involving abdominal wall, and severe scrotal edema MUSCULOSKELETAL: Muscle strength and tone normal. SPINE: No scoliosis or deformity SKIN: No rashes CENTRAL NERVOUS SYSTEM: No focal deficits, tone is normal in all 4 extremities. PSYCHIATRIC: Unresponsive to verbal or painful stimulation. Pupils are equal and reactive to light. No nystagmus or clonus no facial asymmetry. Reflexes are diminished. - Labs CBC & Chem 7: 11/05/19 04:55 11/05/19 04:55 Labs: Abnormal Lab Results - Last 24 Hours (Table) 11/05/19 11/05/19 11/05/19 Range/Units 04:53 04:55 04:55 WBC 13.0 H (3.8-10.6) k/uL RBC 2.25 L (4.30-5.90) m/uL Hgb 7.2 L (13.0-17.5) gm/dL Hct 23.9 L (39.0-53.0) % MCV 106.4 H (80.0-100.0) fL MCHC 30.3 L (31.0-37.0) g/dL RDW 19.3 H (11.5-15.5) % Plt Count 47 L (150-450) k/uL Neutrophils # (Manual) 9.60 H (1.3-7.7) k/uL Macrocytosis Marked A Chloride 115 H (98-107) mmol/L Carbon Dioxide 16 L (22-30) mmol/L BUN 52 H (9-20) mg/dL Creatinine 5.93 H (0.66-1.25) mg/dL Glucose 106 H (74-99) mg/dL POC Glucose (mg/dL) 110 H (75-99) mg/dL 11/05/19 11/05/19 Range/Units 06:00 11:51 WBC (3.8-10.6) k/uL RBC (4.30-5.90) m/uL Hgb (13.0-17.5) gm/dL Hct (39.0-53.0) % MCV (80.0-100.0) fL MCHC (31.0-37.0) g/dL RDW (11.5-15.5) % Plt Count (150-450) k/uL Neutrophils # (Manual) (1.3-7.7) k/uL Macrocytosis Chloride (98-107) mmol/L Carbon Dioxide (22-30) mmol/L BUN (9-20) mg/dL Creatinine (0.66-1.25) mg/dL Glucose (74-99) mg/dL POC Glucose (mg/dL) 113 H 124 H (75-99) mg/dL Assessment and Plan Plan: 1 Cardiac arrest with approximate 20 minutes of CPR, for epinephrine and subsequent return of spontaneous circulation. Consider underlying anoxic e ncephalopathy post cardiac arrest. 2 Acute respiratory arrest secondary to above requiring intubation mechanical ventilatory support, extubated 10/31/2019, the patient currently is BiPAP dependent and the chest x-ray showing bilateral pulmonary changes consistent with COPD and some parenchymal fibrotic changes with tiny left more than right pleural effusions. The patient also has some interstitial edema without any significant change compared to yesterday's chest x-ray. 3 Acute hypotension with suspected septic shock requiring norepinephrine, recovered 4 shock liver secondary to above, improved 5 Acute on chronic renal failure, current creatinine creatinine is on the rise in the patient's creatinine today is at 5.9 6 altered mentation, responsiveness. The patient could have an underlying component of anoxic encephalopathy. The CAT scan of the brain showed old lacunar infarcts. At the same time there may be a component of metabolic encephalopathy as the patient is in chronic liver failure and acute on top of chronic kidney injury. 7 Coagulopathy secondary to shock liver and chronic liver disease, most recent INR is down to 1.7 8 Chronic pancreatitis 9 History of alcoholism 10 Chronic normocytic anemia 11 Previous history of ventilatory dependent respiratory failure secondary to MSSA pneumonia 12 Chronic dysphagia secondary to vocal cord injury with previous PEG tube placement, the patient is tolerating enteral feeding for nutritional support. The patient is also on a combination of lactulose and Xifaxan. The patient will be taken of the lactulose and the patient is having significant amount of diarrhea. We'll keep the Xifaxan for now. Continue enteral feeding for nutritional support. 13 History of previous GI bleed 14 Cerebral atrophy along with chronic small vessel ischemia 15 underlying gap metabolic acidosis, slightly improved and serum bicarb is up. Plan The prognosis remains extremely poor baseline above-mentioned morbidities. There is a ongoing legal issue for guardianship and social workers on the case working with the appropriate court system to establish guardianship. Meanwhile, the patient is receiving supportive care. The patient is on a candidate for dialysis. I have ordered to spoken in this regard with the greeter guest services. I'm awaiting guardianship and hopefully will be able to make this patient comfort care measures on hospice once guardianship has been established. I do not see any improvement in his mentation or in his overall condition over the past 24-48 hours.
--- NOTE | 2019-11-05 16:19 | PN ---
PROGRESS NOTE Patient is seen for followup for acute kidney injury. The hearing for guardianship is scheduled for tomorrow. In the meantime, patient remains obtunded. Urine output at about 15 mL/hour. He is maintained on BiPAP. No significant changes since yesterday. Blood pressure was 119/47, heart rate 84 per minute. He is afebrile. EXAMINATION OF THE HEART: S1 and S2. EXAMINATION OF LUNGS: Bilateral breath sounds are heard. ABDOMEN: Soft, non-tender. Examination of lower extremities shows no significant edema. ELIGIBILITY EXAMINER exam shows patient is obtunded. According to the nurse, he did withdraw to severe pain. Labs show sodium 141, potassium 3.5, chloride 115. CO2 is 16, BUN 52, creatinine 5.93, hemoglobin 7.2 g/dL. ASSESSMENT: 1. Acute kidney injury on top of chronic kidney disease, mostly acute tubular necrosis. Not a candidate for renal replacement therapy. 2. Metabolic acidosis, non-gap, associated with renal failure. 3. Hypoxic respiratory failure, currently on BiPAP. 4. Status post cardiac arrest. 5. Anemia with no active current bleeding. PLAN: Continue with the bicarb drip. No plans on dialysis. Recommend comfort care, hospice care. MMODL / IJN: [id number] /
[2019-11-05 18:01] LABS: Glucose,Whole Blood 140 mg/dL (75-99)
--- NOTE | 2019-11-05 22:00 | P.PN ---
Progress Note - Text Progress Note Date: 11/05/19 Presenting complaint: Short of breath Interval history: From the records: This is a 69 years old male With multiple medical problems as below. Patient is intubated and unresponsive and could not provide information so it was obtained from staff and medical records, no family at bedside. Patient Presents because the neighbors called 911/AMS 4 patient was dyspneic, and brought to the hospital patient became unresponsive with PEA in ambulance, CPR was in associated, he got 3 samples of epinephrine in the ambulance and 1 other dose of epinephrine in the hospital. His CPR downtown was about 20 minutes Patient also hypoglycemic and hypothermic and hypotensive , blood glucose was 20 h glucose D 50% with partial correction and was placed on D10% effusion, however his sugar jumped to 800 so D10%was stopped and currently glucose in around 300. He was placed on Jarad hugger and Currently he is on Levophed at 0.57 which is high dose showing leukocytosis of 12.9 and 19.7 K, hemoglobin 6.6 corrected to 9.2 after blood transfusion, platelets 46 and 50 5K. INR 4.5 and 3.9. PH was 6.9 and 7. 2. Creatinine 2.6 which are unknown baseline. Lactic acid 8.0 7.0. Elevated liver enzymes with AST 3652 and ALT 472 . Troponin is negative Hemoglobin was 6 and INR was 4 and he got 1 dose of vitamin K and 2 units of blood transfusion Patient got Zithromax and ceftriaxone in the emergency room, patient continued on Zosyn, patient extubated on October 30. Pending hearing for a court-appointed guardian. Today-In the ICU. He remains barely arousable. On BiPAP 01/10. Sinus rhythm. 2 feeding through NG tube. I'm awaiting court hearing for guardian. Review of systems: Patient not responding Active Medications Albuterol/Ipratropium (Duoneb 0.5 Mg-3 Mg/3 Ml Soln) 3 ml INHALATION RT-Q2H PRN PRN Reason: Shortness Of Breath Or Wheezing Albuterol/Ipratropium (Duoneb 0.5 Mg-3 Mg/3 Ml Soln) 3 ml INHALATION RT-QID [facility] Last Admin: 11/05/19 19:58 Dose: 3 ml Documented by: Furosemide (Lasix) 80 mg IV Q12HR [facility] Last Admin: 11/05/19 21:25 Dose: 80 mg Documented by: Propofol 1,000 mg/ IV Solution 100 mls @ 0 mls/hr IV .Q0M [facility]; Protocol Last Titration: 10/31/19 08:00 Dose: 0 mcg/kg/min, 0 mls/hr Documented by: Ceftriaxone Sodium 1 gm/ (Sodium Chloride) 50 mls @ 100 mls/hr IVPB Q24HR [facility] Last Admin: 11/05/19 09:13 Dose: 100 mls/hr Documented by: Sodium Bicarbonate 150 ml/ (Dextrose/Water) 1,150 mls @ 50 mls/hr IV .Q23H [facility] Last Admin: 11/05/19 06:41 Dose: 50 mls/hr Documented by: Midodrine (Proamatine) 10 mg PO AC-TID [facility] Last Admin: 11/05/19 17:06 Dose: 10 mg Documented by: Miscellaneous Information (Potassium Per Protocol) 1 each MISCELLANE DAILY PRN; Protocol PRN Reason: Per Protocol Miscellaneous Information (Magnesium Per Protocol) 1 each MISCELLANE DAILY PRN; Protocol PRN Reason: Per Protocol Naloxone HCl (Narcan) 0.2 mg IV Q2M PRN PRN Reason: Opioid Reversal Pantoprazole Sodium (Protonix) 40 mg IVP DAILY [facility] Last Admin: 11/05/19 09:13 Dose: 40 mg Documented by: Rifaximin (Xifaxan) 550 mg PO BID [facility] Stop: 11/30/19 10:31 Last Admin: 11/05/19 21:25 Dose: 550 mg Documented by: Sodium Bicarbonate (Sodium Bicarbonate Tab) 650 mg PO QID [facility] Last Admin: 11/05/19 21:25 Dose: 650 mg Documented by: On examination: VITAL SIGNS: 96.9, 84, 16, 119/47, 99% on the BiPAP GENERAL APPEARANCE: Laying in bed with the BiPAP, barely arousable. Absent corneal reflex. Minimal response to pain. Positive doll's eye movement HEENT: Normal external appearance of nose and ear. Oral cavity dry, NG tube, BiPAP EYES: Pupils equal. Conjunctiva pale. NECK: JVD not raised. Mass not palpable. RESPIRATORY: Respiratory effort increased, decreased breath sounds,. Expiratory coarse crackles CARDIOVASCULAR: First and second sounds normal. Significant edema ABDOMEN: Soft. Liver and spleen not palpable. No tenderness. No mass palpable. PEG tube site appearance clean. Significant scrotal edema DERMATOLOGICAL: Stage II decubital ulcers NEUROLOGICAL: Absent corneal reflex, absent gag reflex PSYCHIATRY: Unable to assess INVESTIGATIONS, reviewed in the clinical context: White count 13 hemoglobin 7.2 potassium 3.5 creatinine 5.93 Previous testing Chest [id number] infiltrate Computed tomography scan of the chest-bibasilar airspace disease, emphysema changes, chronic calcific pancreatitis, Computed tomography scan of the brain-old lacunar infarct in the jung radiata on the right, chronic changes EEG-suggestive of generalized cerebral dysfunction Assessment: -Status post cardiac arrest witnessed-downtime of about 12 minutes. -Chronic kidney disease stage III from nephrosclerosis -Acute kidney injury possibly ATN multifactorial-not improving, no urine output -Moderate protein calorie malnutrition -not improving -Hepatic encephalopathy on lactulose-no improvement -Chronic medical debility does use a wheelchair -Chronic esophagitis -Chronic dysphagia -Ischemic hepatitis from hypotension-improving -Hypocalcemia -Aspiration pneumonia due to altered mental status -Chronic pancreatitis -Combination of metabolic and respiratory acidosis. -acute hypoxic respiratory failure, on ventilator -extubated October 30 -Hypotensive and/or septic shock requiring pressor support-now on midodrine -Significant edema due to third spacing from severe hypoalbuminemia -Stage II decubitus ulcer -Metabolic encephalopathy-worsening not improving -Court-appointed guardian-hearing pending -Severe metabolic acidosis, from renal failure Plan: Pending court hearing in front of the test tomorrow morning for court-appointed guardian. Patient can history of poorly. Continue current medication gentle plan.
[2019-11-06 00:14] LABS: Glucose,Whole Blood 148 mg/dL (75-99)
[2019-11-06 04:41] LABS: Anisocytosis Moderate; HCT 23.3 % (39.0-53.0); HGB 7.1 gm/dL (13.0-17.5); Hypochromasia Marked; MCH 32.5 pg (25.0-35.0); MCHC 30.5 g/dL (31.0-37.0); MCV 106.3 fL (80.0-100.0); Macrocytosis Marked; Mean Platelet Volume 12.8; RBC 2.19 m/uL (4.30-5.90); RDW 20.2 % (11.5-15.5); WBC 15.7 k/uL (3.8-10.6)
[2019-11-06 04:54] LABS: Calcium 9.8 mg/dL (8.4-10.2)
[2019-11-06 04:57] LABS: Potassium 4.3 mmol/L (3.5-5.1)
[2019-11-06 05:19] LABS: Band Neutrophils % 3 %; Eosinophils # (M) 0.31 k/uL (0-0.7); Lymphocytes # (M) 2.83 k/uL (1.0-4.8); Metamyelocytes # (M) 0.31 k/uL (0); Metamyelocytes % 2 %; Monocytes # (M) 0.47 k/uL (0-1.0); Neutrophils % (M) 74 %; Nucleated Red Blood Cells 0 /100 WBC (0-0); Total Cells Counted 200
[2019-11-06 05:20] LABS: Platelet Count 60 k/uL (150-450); Poikilocytosis (M) Present; Target Cells Present
[2019-11-06 05:52] LABS: Glucose,Whole Blood 164 mg/dL (75-99)
--- NOTE | 2019-11-06 07:33 | XR ---
EXAMINATION TYPE: XR chest 1V portable DATE OF EXAM: 11/06/2019 COMPARISON: 11/05/2019 INDICATION: Short of breath TECHNIQUE: Single frontal view of the chest is obtained. FINDINGS: The heart size is normal. The pulmonary vasculature is normal. Bibasilar infiltrates are present appears stable. Right central venous catheter is present tip in sup erior vena cava. Nasogastric tube transverses the thorax. IMPRESSION: 1. Stable bibasilar infiltrates. Continued follow-up is recommended
[2019-11-06] MEDS: DEXTROSE 5% IN WATER 1,000 ML with SODIUM BICARB (1 MEQ/ML) 150 ML IV SCH (08:38)
[2019-11-06] MEDS: MIDODRINE 5 MG TAB PO SCH ×3 (08:38→17:38)
[2019-11-06] MEDS: FUROSEMIDE 10 MG/ML 10 ML VIAL IV SCH ×2 (08:39→21:48)
[2019-11-06] MEDS: PANTOPRAZOLE 40 MG/10 ML VIAL IVP SCH (08:39)
[2019-11-06] MEDS: SODIUM BICARBONATE TAB 650 MG TAB PO SCH ×4 (08:39→21:48)
[2019-11-06] MEDS: RIFAXIMIN 550 MG TABLET PO SCH ×2 (08:39→21:48)
[2019-11-06] MEDS: IPRATROPIUM-ALBUTEROL 3 ML NEB INHALATION SCH ×4 (09:06→20:13)
[2019-11-06 11:45] LABS: Glucose,Whole Blood 147 mg/dL (75-99)
--- NOTE | 2019-11-06 13:59 | P.PN ---
Subjective Progress Note Date: 11/06/19 This patient is doing poorly. He is a 69-year-old male patient is been hospital post cardiac arrest. The patient is known to have alcoholism, and liver disease secondary to alcoholism/cirrhosis. He is also known to have chronic kidney disease, chronic pancreatitis, hypothyroidism, recurrent UTIs, and previous history of respiratory failure requiring intubation mechanical ventilation. This was attributed to a staphylococcal pneumonia. He also has old lacunar infarcts and his baseline performance and functional status extremely impaired. During this current admission, the patient came in with cardiac arrest. CPR was offered to him for a total of 20 minutes prior to arrival to the hospital and the patient received 3 rounds of epinephrine and he lost his pulse and he was found to be PEA. He arrived pulseless and CPR was continued and there was return of spontaneous circulation ultimately after 20 minutes of resuscitation. He had acute respiratory arrest due to cardiac arrest and the patient required intubation mechanical ventilation and was extubated on 10/31/2019. He is course was Again by shock liver, acute on top of chronic kidney injury where his creatinine is on the rise and the patient is producing diminished amount of urine output. He was extubated and subsequently was placed on a BiPAP for respiratory support. This morning, the patient is pain-free stimulation. Not r esponding to any verbal stimulation. His blood work shows non-anion gap metabolic acidosis with a serum bicarb of 13. BUN is up to 40 now with a creatinine of 5.24. The patient's blood gas show a pH of 7.28 with a pCO2 of 26 and pO2 of 104 and this was done on BiPAP at a pressure of 10/5 cm of water and FiO2 of 40%. He was receiving D5 water at the rate of 50 mL an hour along with some water flushes. He was receiving enteral feeding for nutritional support via an NG tube. Note that his echocardiogram post cardiac arrest with an ejection fraction of around 60% without any significant valvular abnormalities. His chest x-ray from today showing chronic emphysema and some parenchymal fibro tic changes bilaterally left more than right. There is also some bilateral lower lung edema demonstrated. No sedated and change compared to yesterday chest x-ray. Ammonia level is improving. Ammonia level is down to 79 as the patient is receiving Xifaxan. The patient is also on lactulose. He has an FMS system in place. He is also on lactulose. On 11/05/2019 and seeing this patient for a follow-up. The patient is essentially the same. The patient remains unresponsive. The patient's heart is responding to any verbal or painful stimulation. He remains quite encephalopathic and this could be a combination of factors including possibility of hypoxic encephalopathy post cardiac arrest in addition to hepatic/renal encephalopathy as the patient is an liver and kidney failure. On yesterday's evaluation, the patient had a component of non-anion gap metabolic acidosis. He was started on bicarb drip which is still running at a rate of 100 mL an hour. The patient is producing adequate amount of urine output. The patient is also having liquidy stool and the patient is currently on a combination of Xifaxan and lactulose for hepatic encephalopathy. The patient has a fecal management system in place. Meanwhile, the renal function is still impaired and the creatinine is on the rise. On today's evaluation , the patient's serum bicarbonate was up to 16. Creatinine is up to 5.9 with a mean of 52. Glucose is 106. We are still not planning any dialysis and we are considering sending patient to come for care measures once guardianship has been established. Meanwhile, the patient remains BiPAP dependent at the pressure of 10/5 with an FiO2 of 40%. Chest x-ray shows essentially no significant change impaired to yesterday's chest x-ray . The patient has a Zhu catheter in place. The patient has an NG tube in place. The patient is receiving enteral feeding for nutritional support. Lactulose will be discontinued for now. Urine output is normal at 15-20 mL an hour. 11/06/2019, no change in the patient's condition. Neurologically the same. Unresponsive. Barely responsive to painful stimulation. Nonverbal. Opens his eyes occasionally without any stimulation, spontaneously. Remains on a BiPAP at a pressure of 10/5 7 m water and FiO2 of 40%. Chest x-ray findings are essentially unchanged. There is increased infiltration of the lung bases embolus changes in the upper lobes bilaterally. NG tube is in place. Tolerating enteral feeding with vital high protein at the rate of 60 mL an hour. Cardiac rhythm is sinus. Remains on a Infusion rate of 50 mL an hour. Serum bicarb is improving and the patient is also on Lasix 80 mg IV push every 12 hours. Still havingliquidy bowel movements and diarrhea. Urinary was no order of 10-50 mL an hour. Overall fluid balance is -1 L over the past 24 hours. No seizure activity. No significant cardiac arrhythmias. No other significant events over the past 24 hours. As mentioned earlier, we are trying to establish guardianship. Unfortunately the patient remains encephalopathic and unresponsive. This is a multifactorial in nature including the possibility of anoxic encephalopathy post cardiac arrest. Objective - Vital Signs Vital signs: Vital Signs Temp 98.2 F 11/06/19 12:00 Pulse 90 11/06/19 13:00 Resp 16 11/06/19 13:00 BP 116/57 11/06/19 10:00 Pulse Ox 95 11/06/19 13:00 Intake & Output 11/05/19 11/06/19 11/06/19 18:59 06:59 18:59 Intake Total 1531 1626 901 Output Total 282 624 9492 Balance 1316 1401 -2254 Weight 61.7 kg 64.2 kg 62.8 kg Intake: IV 636 636 371 Dextrose 5% in Water 1, 600 600 350 000 ml @ 50 mls/hr IV . Q23H ANTHONY with Sodium Bicarb (1 Meq/ml) 150 ml Rx#:[id number] Pressure Bag 0.9 36 36 21 Intake, IV Titration 50 Amount cefTRIAXone 1 gm In 50 Sodium Chloride 0.9% 50 ml @ 100 mls/hr IVPB Q24HR ANTHONY Rx#:[id number] Tube Feeding 615 900 360 Other 280 90 120 Output: Urine 215 225 155 Stool 3000 Other: Voiding Method Indwelling Catheter Indwelling Catheter Indwelling Catheter ABP, PAP, CO, CI - Last Documented Arterial Blood Pressure 127/50 - Exam GENERAL EXAM: Minimally responsive 69-year-old male patient, extremely weak, he is on BiPAP 10/5 and 50% FiO2, NG tube is in place quite pale and chronically ill appearing HEAD: Normocephalic/atraumatic. EYES: Normal reaction of pupils, equal size. Conjunctiva pink, sclera white. NOSE: Clear with pink turbinates. NG tube is in place to low intermittent suction THROAT: No erythema or exudates. NECK: No masses, no JVD, no thyroid enlargement, no adenopathy. CHEST: No chest wall deformity. Symmetrical expansion. LUNGS: Equal air entry with basilar crackles and scattered rhonchi CVS: Regular rate and rhythm, normal S1 and S2, no gallops, no murmurs, no rubs ABDOMEN: Soft, nontender. No hepatosplenomegaly, normal bowel sounds, no guardi ng or rigidity. EXTREMITIES: No clubbing, no cyanosis, 2+ pulses and upper and lower extremities. Generalized anasarca, swelling, 2+ lower extremity edema, 1+ upper extremity edema, edema involving abdominal wall, and severe scrotal edema MUSCULOSKELETAL: Muscle strength and tone normal. SPINE: No scoliosis or deformity SKIN: No rashes CENTRAL NERVOUS SYSTEM: No focal deficits, tone is normal in all 4 extremities. PSYCHIATRIC: Unresponsive to verbal or painful stimulation. Pupils are equal an d reactive to light. No nystagmus or clonus no facial asymmetry. Reflexes are diminished. - Labs CBC & Chem 7: 11/06/19 04:30 11/06/19 04:30 Labs: Abnormal Lab Results - Last 24 Hours (Table) 11/05/19 11/06/19 11/06/19 Range/Units 18:00 00:13 04:30 WBC 15.7 H (3.8-10.6) k/uL RBC 2.19 L (4.30-5.90) m/uL Hgb 7.1 L (13.0-17.5) gm/dL Hct 23.3 L (39.0-53.0) % MCV 106.3 H (80.0-100.0) fL MCHC 30.5 L (31.0-37.0) g/dL RDW 20.2 H (11.5-15.5) % Plt Count 60 L (150-450) k/uL Neutrophils # (Manual) 12.00 H (1.3-7.7) k/uL Metamyelocytes # (Man) 0.31 H (0) k/uL Macrocytosis Marked A Chloride (98-107) mmol/L Carbon Dioxide (22-30) mmol/L BUN (9-20) mg/dL Creatinine (0.66-1.25) mg/dL Glucose (74-99) mg/dL POC Glucose (mg/dL) 140 H 148 H (75-99) mg/dL 11/06/19 11/06/19 11/06/19 Range/Units 04:30 05:50 11:44 WBC (3.8-10.6) k/uL RBC (4.30-5.90) m/uL Hgb (13.0-17.5) gm/dL Hct (39.0-53.0) % MCV (80.0-100.0) fL MCHC (31.0-37.0) g/dL RDW (11.5-15.5) % Plt Count (150-450) k/uL Neutrophils # (Manual) (1.3-7.7) k/uL Metamyelocytes # (Man) (0) k/uL Macrocytosis Chloride 113 H (98-107) mmol/L Carbon Dioxide 18 L (22-30) mmol/L BUN 60 H (9-20) mg/dL Creatinine 5.83 H (0.66-1.25) mg/dL Glucose 135 H (74-99) mg/dL POC Glucose (mg/dL) 164 H 147 H (75-99) mg/dL Assessment and Plan Plan: 1 Cardiac arrest with approximate 20 minutes of CPR, for epinephrine and subsequent return of spontaneous circulation. Consider underlying anoxic encephalopathy post cardiac arrest. 2 Acute respiratory arrest secondary to above requiring intubation mechanical ventilatory support, extubated 10/31/2019, the patient currently is BiPAP dependent and the chest x-ray showing bilateral pulmonary changes consistent with COPD and some parenchymal fibrotic changes with tiny left more than right pleural effusions. The patient also has some interstitial edema without any significant change compared to yesterday's chest x-ray. 3 Acute hypotension with suspected septic shock requiring norepinephrine, recovered 4 shock liver secondary to above, improved 5 Acute on chronic renal failure, and the renal function continues to be impaired. 6 altered mentation, responsiveness. The patient could have an underlying component of anoxic encephalopathy. The CAT scan of the brain showed old lacunar infarcts. At the same time there may be a component of metabolic encephalopathy as the patient is in chronic liver failure and acute on top of chronic kidney injury. I do not appreciate any change in his patient's condition or mental status over the past 48 hours. 7 Coagulopathy secondary to shock liver and chronic liver disease, most recent INR is down to 1.7 8 Chronic pancreatitis 9 History of alcoholism 10 Chronic normocytic anemia 11 Previous history of ventilatory dependent respiratory failure secondary to MSSA pneumonia 12 Chronic dysphagia secondary to vocal cord injury with previous PEG tube placement, the patient is tolerating enteral feeding for nutritional support. The patient is also on a combination of lactulose and Xifaxan. The patient will be taken of the lactulose and the patient is having significant amount of diarrhea. We'll keep the Xifaxan for now. Continue enteral feeding for nutrit ional support. 13 History of previous GI bleed 14 Cerebral atrophy along with chronic small vessel ischemia 15 underlying gap metabolic acidosis, slightly improved and serum bicarb is up. Plan The prognosis remains extremely poor baseline above-mentioned morbidities. There is episodes no changes the patient's condition. The patient has multisystem organ failure and his chance of recovery extremely poor. He does have probably an underlying component of anoxic encephalopathy and addition to metabolic encephalopathy emanating from his renal failure and the liver failure. As such he remains unresponsive and quite comatose. I do not think is a candidate for dialysis. I do not think is a candidate for intubation mechanical ventilation as such immediate guardianship needs to be established to change his CODE STATUS was released a DNR/DNI CODE STATUS. I will ultimately recommended hospice care for comfort care for this patient. There is a ongoing legal issue for guardianship and social workers on the case working with the appropriate court system to establish guardianship.
--- NOTE | 2019-11-06 14:56 | PN ---
PROGRESS NOTE Patient is seen for followup for acute kidney injury. His general condition is about the same. Guardianship has been obtained. Code status remains as NO CODE, NO CPR. Patient's urine output is about 15-20 mL an hour. He is maintained on bicarb drip. He is stable on BiPAP as well. He remains obtunded with no significant changes in mentation. PHYSICAL EXAMINATION: On examination today, blood pressure was 112/44, heart rate 85 per minute, he is afebrile. Examination of the heart S1, S2. Examination of the lungs, bilateral breath sounds are heard. Abdomen is soft. Examination of the lower extremities shows edema 2+ bilaterally. [employer] exam shows patient is unresponsive. LABS: Show sodium 141, potassium 4.3, chloride 113, CO2 is 18, BUN 60, creatinine 5.83, hemoglobin 7.1 g/dL. ASSESSMENT: 1. Acute kidney injury on top of chronic kidney disease, mostly acute tubular necrosis, currently oliguric with borderline urine output. The patient is not a candidate for dialysis. 2. Volume overload. 3. Status post cardiac arrest with obtundation and patient being unresponsive. 4. Metabolic acidosis maintained on bicarb drip which we can continue for now. PLAN: Continue with the bicarb drip. Continue IV Lasix. The patient is not a candidate for renal replacement therapy. Recommend hospice care/comfort care measures. MMODL / IJN: [id number] /
[2019-11-06 18:04] LABS: Glucose,Whole Blood 143 mg/dL (75-99)
--- NOTE | 2019-11-06 22:54 | P.PN ---
Progress Note - Text Progress Note Date: 11/06/19 Presenting complaint: Short of breath Interval history: From the records: This is a 69 years old male With multiple medical problems as below. Patient is intubated and unresponsive and could not provide information so it was obtained from staff and medical records, no family at bedside. Patient Presents because the neighbors called 911/AMS 4 patient was dyspneic, and brought to the hospital patient became unresponsive with PEA in ambulance, CPR was in associated, he got 3 samples of epinephrine in the ambulance and 1 other dose of epinephrine in the hospital. His CPR downtown was about 20 minutes Patient also hypoglycemic and hypothermic and hypotensive , blood glucose was 20 h glucose D 50% with partial correction and was placed on D10% effusion, however his sugar jumped to 800 so D10%was stopped and currently glucose in around 300. He was placed on Jarad hugger and Currently he is on Levophed at 0.57 which is high dose showing leukocytosis of 12.9 and 19.7 K, hemoglobin 6.6 corrected to 9.2 after blood transfusion, platelets 46 and 50 5K. INR 4.5 and 3.9. PH was 6.9 and 7. 2. Creatinine 2.6 which are unknown baseline. Lactic acid 8.0 7.0. Elevated liver enzymes with AST 3652 and ALT 472 . Troponin is negative Hemoglobin was 6 and INR was 4 and he got 1 dose of vitamin K and 2 units of blood transfusion Patient got Zithromax and ceftriaxone in the emergency room, patient continued on Zosyn, patient extubated on October 30. Pending hearing for a court-appointed guardian. Today-In the ICU. Continues to use Jarad hugger and it otherwise drops temperature. Remains on BiPAP 01/10. Telemetry sinus rhythm. Does have a court-appointed guardian. Still full code. Has the legal system is trying to determine determine patient's wishes. This is by interviewing the place E[facility]. Patient remains minimally responsive. Review of systems: Patient not responding Active Medications Albuterol/Ipratropium (Duoneb 0.5 Mg-3 Mg/3 Ml Soln) 3 ml INHALATION RT-Q2H PRN PRN Reason: Shortness Of Breath Or Wheezing Albuterol/Ipratropium (Duoneb 0.5 Mg-3 Mg/3 Ml Soln) 3 ml INHALATION RT-QID [facility] Last Admin: 11/06/19 20:13 Dose: 3 ml Documented by: Furosemide (Lasix) 80 mg IV Q12HR [facility] Last Admin: 11/06/19 21:48 Dose: 80 mg Documented by: Propofol 1,000 mg/ IV Solution 100 mls @ 0 mls/hr IV .Q0M [facility]; Protocol Last Titration: 10/31/19 08:00 Dose: 0 mcg/kg/min, 0 mls/hr Documented by: Ceftriaxone Sodium 1 gm/ (Sodium Chloride) 50 mls @ 100 mls/hr IVPB Q24HR [facility] Last Admin: 11/06/19 08:39 Dose: 100 mls/hr Documented by: Sodium Bicarbonate 150 ml/ (Dextrose/Water) 1,150 mls @ 50 mls/hr IV .Q23H [facility] Last Admin: 11/06/19 08:38 Dose: Not Given Documented by: Midodrine (Proamatine) 10 mg PO AC-TID [facility] Last Admin: 11/06/19 17:38 Dose: 10 mg Documented by: Miscellaneous Information (Potassium Per Protocol) 1 each MISCELLANE DAILY PRN; Protocol PRN Reason: Per Protocol Miscellaneous Information (Magnesium Per Protocol) 1 each MISCELLANE DAILY PRN; Protocol PRN Reason: Per Protocol Naloxone HCl (Narcan) 0.2 mg IV Q2M PRN PRN Reason: Opioid Reversal Pantoprazole Sodium (Protonix) 40 mg IVP DAILY [facility] Last Admin: 11/06/19 08:39 Dose: 40 mg Documented by: Rifaximin (Xifaxan) 550 mg PO BID [facility] Stop: 11/30/19 10:31 Last Admin: 11/06/19 21:48 Dose: 550 mg Documented by: Sodium Bicarbonate (Sodium Bicarbonate Tab) 650 mg PO QID [facility] Last Admin: 11/06/19 21:48 Dose: 650 mg Documented by: On examination: VITAL SIGNS: 98.2, 85, 15, 112/44, 77% on the BiPAP GENERAL APPEARANCE: Laying in bed with the BiPAP, barely arousable. Absent corneal reflex. Minimal response to pain. Positive doll's eye movement HEENT: Normal external appearance of nose and ear. Oral cavity dry, NG tube, BiPAP EYES: Pupils equal. Conjunctiva pale. NECK: JVD not raised. Mass not palpable. RESPIRATORY: Respiratory effort increased, decreased breath sounds,. Expiratory coarse crackles CARDIOVASCULAR: First and second sounds normal. Significant edema ABDOMEN: Soft. Liver and spleen not palpable. No tenderness. No mass palpable. PEG tube site appearance clean. Significant scrotal edema DERMATOLOGICAL: Stage II decubital ulcers NEUROLOGICAL: Absent corneal reflex, absent gag reflex PSYCHIATRY: Unable to assess INVESTIGATIONS, reviewed in the clinical context: White count 15.7 hemoglobin 7.1 potassium 4.3 bun 60 creatinine 5.83 Previous testing Chest [id number] infiltrate Computed tomography scan of the chest-bibasilar airspace disease, emphysema changes, chronic calcific pancreatitis, Computed tomography scan of the brain-old lacunar infarct in the jung radiata on the right, chronic changes EEG-suggestive of generalized cerebral dysfunction Assessment: -Status post cardiac arrest witnessed-downtime of about 12 minutes. -Chronic kidney disease stage III from nephrosclerosis -Acute kidney injury possibly ATN- worsening, no urine output -Moderate protein calorie malnutrition -not improving -Hepatic encephalopathy on lactulose-no improvement -Chronic medical debility does use a wheelchair -Chronic esophagitis -Chronic dysphagia -Ischemic hepatitis from hypotension-improving -Hypocalcemia -Aspiration pneumonia due to altered mental status -Chronic pancreatitis -Combination of metabolic and respiratory acidosis. -acute hypoxic respiratory failure, on ventilator -extubated October 30 -Hypotensive and/or septic shock requiring pressor support-now on midodrine -Significant edema due to third spacing from severe hypoalbuminemia -Stage II decubitus ulcer -Metabolic encephalopathy-worsening not improving -Court-appointed hearing was today. -Severe metabolic acidosis, from renal failure Plan: Continue current medication treatment plan. Did inform Dr. Medel that from my standpoint it may be very unfair to the patient, if intubated-given his very poor quality of life and prognosis.. We will await legal decision about CODE STATUS, from the court-appointed guardian..
[2019-11-07 01:01] LABS: Glucose,Whole Blood 145 mg/dL (75-99)
[2019-11-07] MEDS: DEXTROSE 5% IN WATER 1,000 ML with SODIUM BICARB (1 MEQ/ML) 150 ML IV SCH (01:07)
[2019-11-07 05:28] LABS: Anisocytosis Moderate; HCT 22.6 % (39.0-53.0); Hypochromasia Moderate; MCH 32.6 pg (25.0-35.0); MCHC 30.4 g/dL (31.0-37.0); MCV 107.2 fL (80.0-100.0); Macrocytosis Marked; Mean Platelet Volume 12.4; RBC 2.11 m/uL (4.30-5.90); RDW 21.1 % (11.5-15.5); WBC 17.2 k/uL (3.8-10.6)
[2019-11-07 05:31] LABS: Glucose,Whole Blood 136 mg/dL (75-99)
[2019-11-07 05:44] LABS: HGB 6.9 gm/dL (13.0-17.5); Platelet Count 69 k/uL (150-450)
[2019-11-07 05:59] LABS: Calcium 9.6 mg/dL (8.4-10.2); Potassium 3.6 mmol/L (3.5-5.1)
[2019-11-07] MEDS: MIDODRINE 5 MG TAB PO SCH ×3 (06:50→17:05)
--- NOTE | 2019-11-07 06:51 | XR ---
EXAMINATION TYPE: XR chest 1V portable DATE OF EXAM: 11/07/2019 CLINICAL HISTORY: Difficulty breathing progress study. TECHNIQUE: Single AP portable upright view of the chest is obtained. COMPARISON: Chest x-ray from one day earlier and older studies. CT chest October 27, 2019. FINDINGS: Stable nasogastric tube and right internal jugular central venous catheter. Background chronic emphysematous and parenchymal fibrotic changes with persistent bibasilar opacities and small to tiny left pleural effusion remain present. Cardiac silhouette size stable and upper tsang its of normal. More dense retrocardiac consolidation redemonstrated. Osseous structures remain demine ralized. IMPRESSION: Background chronic emphysematous and parenchymal fibrotic changes with left greater than right bibasilar acute infiltrate and/or atelectasis and suspected small to tiny left pleural effusion are all redemonstrated. No significant change from one day earlier.
[2019-11-07] MEDS: IPRATROPIUM-ALBUTEROL 3 ML NEB INHALATION SCH ×4 (07:38→19:48)
[2019-11-07] MEDS: FUROSEMIDE 10 MG/ML 10 ML VIAL IV SCH ×2 (08:30→22:42)
[2019-11-07] MEDS: PANTOPRAZOLE 40 MG/10 ML VIAL IVP SCH (08:30)
[2019-11-07] MEDS: RIFAXIMIN 550 MG TABLET PO SCH (08:31)
[2019-11-07] MEDS: SODIUM BICARBONATE TAB 650 MG TAB PO SCH ×4 (08:31→22:42)
[2019-11-07] MEDS ORDERED: DARBEPOETIN ALFA 60 MCG/0.3 ML SYRINGE SQ SCH (12:00)
--- NOTE | 2019-11-07 12:22 | P.PN ---
Subjective Progress Note Date: 11/07/19 This patient is doing poorly. He is a 69-year-old male patient is been hospital post cardiac arrest. The patient is known to have alcoholism, and liver disease secondary to alcoholism/cirrhosis. He is also known to have chronic kidney disease, chronic pancreatitis, hypothyroidism, recurrent UTIs, and previous history of respiratory failure requiring intubation mechanical ventilation. This was attributed to a staphylococcal pneumonia. He also has old lacunar infarcts and his baseline performance and functional status extremely impaired. During this current admission, the patient came in with cardiac arrest. CPR was offered to him for a total of 20 minutes prior to arrival to the hospital and the patient received 3 rounds of epinephrine and he lost his pulse and he was found to be PEA. He arrived pulseless and CPR was continued and there was return of spontaneous circulation ultimately after 20 minutes of resuscitation. He had acute respiratory arrest due to cardiac arrest and the patient required intubation mechanical ventilation and was extubated on 10/31/2019. He is course was Again by shock liver, acute on top of chronic kidney injury where his creatinine is on the rise and the patient is producing diminished amount of urine output. He was extubated and subsequently was placed on a BiPAP for respiratory support. This morning, the patient is pain-free stimulation. Not r esponding to any verbal stimulation. His blood work shows non-anion gap metabolic acidosis with a serum bicarb of 13. BUN is up to 40 now with a creatinine of 5.24. The patient's blood gas show a pH of 7.28 with a pCO2 of 26 and pO2 of 104 and this was done on BiPAP at a pressure of 10/5 cm of water and FiO2 of 40%. He was receiving D5 water at the rate of 50 mL an hour along with some water flushes. He was receiving enteral feeding for nutritional support via an NG tube. Note that his echocardiogram post cardiac arrest with an ejection fraction of around 60% without any significant valvular abnormalities. His chest x-ray from today showing chronic emphysema and some parenchymal fibro tic changes bilaterally left more than right. There is also some bilateral lower lung edema demonstrated. No sedated and change compared to yesterday chest x-ray. Ammonia level is improving. Ammonia level is down to 79 as the patient is receiving Xifaxan. The patient is also on lactulose. He has an FMS system in place. He is also on lactulose. On 11/05/2019 and seeing this patient for a follow-up. The patient is essentially the same. The patient remains unresponsive. The patient's heart is responding to any verbal or painful stimulation. He remains quite encephalopathic and this could be a combination of factors including possibility of hypoxic encephalopathy post cardiac arrest in addition to hepatic/renal encephalopathy as the patient is an liver and kidney failure. On yesterday's evaluation, the patient had a component of non-anion gap metabolic acidosis. He was started on bicarb drip which is still running at a rate of 100 mL an hour. The patient is producing adequate amount of urine output. The patient is also having liquidy stool and the patient is currently on a combination of Xifaxan and lactulose for hepatic encephalopathy. The patient has a fecal management system in place. Meanwhile, the renal function is still impaired and the creatinine is on the rise. On today's evaluation , the patient's serum bicarbonate was up to 16. Creatinine is up to 5.9 with a mean of 52. Glucose is 106. We are still not planning any dialysis and we are considering sending patient to come for care measures once guardianship has been established. Meanwhile, the patient remains BiPAP dependent at the pressure of 10/5 with an FiO2 of 40%. Chest x-ray shows essentially no significant change impaired to yesterday's chest x-ray . The patient has a Zhu catheter in place. The patient has an NG tube in place. The patient is receiving enteral feeding for nutritional support. Lactulose will be discontinued for now. Urine output is normal at 15-20 mL an hour. 11/06/2019, no change in the patient's condition. Neurologically the same. Unresponsive. Barely responsive to painful stimulation. Nonverbal. Opens his eyes occasionally without any stimulation, spontaneously. Remains on a BiPAP at a pressure of 10/5 7 m water and FiO2 of 40%. Chest x-ray findings are essentially unchanged. There is increased infiltration of the lung bases embolus changes in the upper lobes bilaterally. NG tube is in place. Tolerating enteral feeding with vital high protein at the rate of 60 mL an hour. Cardiac rhythm is sinus. Remains on a Infusion rate of 50 mL an hour. Serum bicarb is improving and the patient is also on Lasix 80 mg IV push every 12 hours. Still havingliquidy bowel movements and diarrhea. Urinary was no order of 10-50 mL an hour. Overall fluid balance is -1 L over the past 24 hours. No seizure activity. No significant cardiac arrhythmias. No other significant events over the past 24 hours. As mentioned earlier, we are trying to establish guardianship. Unfortunately the patient remains encephalopathic and unresponsive. This is a multifactorial in nature including the possibility of anoxic encephalopathy post cardiac arrest. 11/07/2019, we haven't done and followed up progress in this patient's condition. He remains unresponsive. A legal guardian has been established. I had a lengthy conversation with the assigned guardian. We discussed his condition. Discussed his poor outcome based on the presence of multisystem organ failure in addition to her cardiac arrest and underlying chronic liver disease and acute on top of chronic kidney injury. In terms of his mentation, there is the possibility of him having a metabolic encephalopathy based on his underlying renal failure and hepatic failure. The legal guardian request another neurology evaluation which we did and I asked Dr. Zapien to reevaluate this patient's neurologic status and function. Meanwhile, after having a lengthy discussion with nephrology and neurology, with a sense was failure to offer this patient to session of hemodialysis and reevaluate his neuro status should there be any improvement. As such vascular surgery surgery was again con sulted. On today's evaluation, the patient's blood work shows a BUN of 62 with a creatinine of 6.2. His hemoglobin is at 6. without any evidence of GI bleed. He is currently on a BiPAP at a pressure of 10/5 cm of water FiO2 40%. The chest x-ray remains unchanged with increased by the pulmonary infiltrates lung bases bilaterally. The patient is still having some loose liquidy diarrhea. He remains on vital high protein 1.2 at the rate of 44 mL an hour. Cardiac rhythm is sinus. No other significant events overnight. White cell count is at 17.2. He is afebrile. He is serum ammonia level is down to 75. Objective - Vital Signs Vital signs: Vital Signs Temp 97.6 F 11/07/19 08:00 Pulse 86 11/07/19 12:13 Resp 20 11/07/19 11:00 BP 116/57 11/07/19 04:00 Pulse Ox 97 11/07/19 11:00 Intake & Output 11/06/19 11/07/19 11/07/19 18:59 06:59 18:59 Intake Total 1586 1446 443 Output Total 3275 465 1210 Balance -1689 781 -357 Weight 62.8 kg 63.2 kg Intake: IV 636 636 265 Dextrose 5% in Water 1, 600 600 250 000 ml @ 50 mls/hr IV . Q23H ANTHONY with Sodium Bicarb (1 Meq/ml) 150 ml Rx#:[id number] Pressure Bag 0.9 36 36 15 Intake, IV Titration 50 Amount cefTRIAXone 1 gm In 50 Sodium Chloride 0.9% 50 ml @ 100 mls/hr IVPB Q24HR ANTHONY Rx#:[id number] Tube Feeding 720 720 148 Other 180 90 30 Output: Urine 275 465 210 Stool 3000 1000 Other: Voiding Method Indwelling Catheter Indwelling Catheter Indwelling Catheter ABP, PAP, CO, CI - Last Documented Arterial Blood Pressure 134/49 - Exam GENERAL EXAM: Minimally responsive 69-year-old male patient, extremely weak, he is on BiPAP 10/5 and 50% FiO2, NG tube is in place quite pale and chronically ill appearing HEAD: Normocephalic/atraumatic. EYES: Normal reaction of pupils, equal size. Conjunctiva pink, sclera white. NOSE: Clear with pink turbinates. NG tube is in place to low intermittent suction THROAT: No erythema or exudates. NECK: No masses, no JVD, no thyroid enlargement, no adenopathy. CHEST: No chest wall deformity. Symmetrical expansion. LUNGS: Equal air entry with basilar crackles and scattered rhonchi CVS: Regular rate and rhythm, normal S1 and S2, no gallops, no murmurs, no rubs ABDOMEN: Soft, nontender. No hepatosplenomegaly, normal bowel sounds, no guarding or rigidity. EXTREMITIES: No clubbing, no cyanosis, 2+ pulses and upper and lower ext remities. Generalized anasarca, swelling, 2+ lower extremity edema, 1+ upper extremity edema, edema involving abdominal wall, and severe scrotal edema MUSCULOSKELETAL: Muscle strength and tone normal. SPINE: No scoliosis or deformity SKIN: No rashes CENTRAL NERVOUS SYSTEM: No focal deficits, tone is normal in all 4 extremities. PSYCHIATRIC: Unresponsive to verbal or painful stimulation. Pupils are equal and reactive to light. No nystagmus or clonus no facial asymmetry. Reflexes are diminished. - Labs CBC & Chem 7: 11/07/19 05:15 11/07/19 05:15 Labs: Abnormal Lab Results - Last 24 Hours (Table) 11/06/19 11/07/19 11/07/19 Range/Units 18:02 00:59 05:15 WBC 17.2 H (3.8-10.6) k/uL RBC 2.11 L (4.30-5.90) m/uL Hgb 6.9 L* (13.0-17.5) gm/dL Hct 22.6 L (39.0-53.0) % MCV 107.2 H (80.0-100.0) fL MCHC 30.4 L (31.0-37.0) g/dL RDW 21.1 H (11.5-15.5) % Plt Count 69 L (150-450) k/uL Macrocytosis Marked A Chloride (98-107) mmol/L Carbon Dioxide (22-30) mmol/L BUN (9-20) mg/dL Creatinine (0.66-1.25) mg/dL Glucose (74-99) mg/dL POC Glucose (mg/dL) 143 H 145 H (75-99) mg/dL Ammonia (<30) umol/L Crossmatch 11/07/19 11/07/19 11/07/19 Range/Units 05:15 05:15 05:19 WBC (3.8-10.6) k/uL RBC (4.30-5.90) m/uL Hgb (13.0-17.5) gm/dL Hct (39.0-53.0) % MCV (80.0-100.0) fL MCHC (31.0-37.0) g/dL RDW (11.5-15.5) % Plt Count (150-450) k/uL Macrocytosis Chloride 111 H (98-107) mmol/L Carbon Dioxide 21 L (22-30) mmol/L BUN 62 H (9-20) mg/dL Creatinine 6.23 H (0.66-1.25) mg/dL Glucose 127 H (74-99) mg/dL POC Glucose (mg/dL) 136 H (75-99) mg/dL Ammonia 75 H (<30) umol/L Crossmatch 11/07/19 Range/Units 06:00 WBC (3.8-10.6) k/uL RBC (4.30-5.90) m/uL Hgb (13.0-17.5) gm/dL Hct (39.0-53.0) % MCV (80.0-100.0) fL MCHC (31.0-37.0) g/dL RDW (11.5-15.5) % Plt Count (150-450) k/uL Macrocytosis Chloride (98-107) mmol/L Carbon Dioxide (22-30) mmol/L BUN (9-20) mg/dL Creatinine (0.66-1.25) mg/dL Glucose (74-99) mg/dL POC Glucose (mg/dL) (75-99) mg/dL Ammonia (<30) umol/L Crossmatch See Detail Assessment and Plan Plan: 1 Cardiac arrest with approximate 20 minutes of CPR, for epinephrine and subsequent return of spontaneous circulation. Consider underlying anoxic encephalopathy post cardiac arrest. 2 Acute respiratory arrest secondary to above requiring intubation mechanical ventilatory support, extubated 10/31/2019, the patient currently is BiPAP dependent and the chest x-ray showing bilateral pulmonary changes consistent with COPD and some parenchymal fibrotic changes with tiny left more than right pleural effusions. The patient also has some interstitial edema without any significant change compared to yesterday's chest x-ray. 3 Acute hypotension with suspected septic shock requiring norepinephrine, rec overed 4 shock liver secondary to above, improved 5 Acute on chronic renal failure, and the renal function continues to be impaired. 6 altered mentation, responsiveness. The ongoing encephalopathy is still active issue for this patient. We have not seen any significant signs of neurologic recovery. Discussed the case with neurology. A repeat neurology evaluation will be done. Meanwhile, the patient is going to be given 2 sessions of hemodialysis and his neuro status is to be reevaluated. He is ammonia level is at 75 at this point and the patient is still on Xifaxan. 7 Coagulopathy secondary to shock liver and chronic liver disease, most recent INR is down to 1.7 8 Chronic pancreatitis 9 History of alcoholism 10 Chronic normocytic anemia 11 Previous history of ventilatory dependent respiratory failure secondary to MSSA pneumonia 12 Chronic dysphagia secondary to vocal cord injury with previous PEG tube placement, the patient is tolerating enteral feeding for nutritional support. The patient is also on a combination of lactulose and Xifaxan. The patient will be taken of the lactulose and the patient is having significant amount of diarrhea. We'll keep the Xifaxan for now. Continue enteral feeding for nutritional support. 13 History of previous GI bleed 14 Cerebral atrophy along with chronic small vessel ischemia 15 underlying gap metabolic acidosis, recovered and the patient got replaced with sodium bicarb Plan The prognosis remains extremely poor baseline above-mentioned morbidities. The patient remains unresponsive. The patient is still encephalopathic. We'll proceed with hemodialysis and this decision was made after having discussions with neurology and nephrology. When informed that he get guardian about this. We'll hopefully get approval on undergoing this procedure. We'll continue to monitor the neurologic function and is very unlikely the patient may resume functionality based on his above-mentioned comorbidities. We'll keep the p atient ICU. Final recommendation will be done regarding comfort care or hospice based on his progress. Meanwhile, I would strongly urge duodenal guardian to change his CODE STATUS to DNR/DNI.
--- NOTE | 2019-11-07 12:26 | PN ---
PROGRESS NOTE Patient is seen for followup for acute kidney injury during this time we were waiting for guardianship and it appears that a guardian has decided not to proceed with comfort care measures. It appears that they would like to try other measures before making him comfort care. Given the underlying significant renal failure and possibility of uremia, it is decided to proceed with dialysis for a 2-3 treatments before proceeding with comfort care measures. If the mentation does not improve after dialysis, then there is definitely significant anoxic encephalopathy. PHYSICAL EXAMINATION: On examination today, patient is seen in the ICU. He is maintained on BiPAP. He is being examined by Neurology as well. He did withdraw to pain. However, nursing staff reports that there is no gag reflex when they are trying to suction him. Examination of the heart S1, S2. Examination of the lungs, bilateral breath sounds are heard. Abdomen is soft, nontender. Examination of the lower extremities shows edema 2+ bilaterally upper and lower extremities. PERINATAL TECHNICIAN exam shows withdrawal to pain. Pupils are reactive. No gag reflex per nursing staff. LABS: Show sodium 143, potassium 3.6, chloride 111, CO2 is 21, BUN 62, creatinine 6.23, hemoglobin 6.9 g/dL. Ammonia is 75. ASSESSMENT: 1. Acute kidney injury with uremic encephalopathy, possibly contributing to his altered mentation Since patient will not be switched to comfort care measures, we will proceed with dialysis for at least 2-3 treatments and assess any change in mentation. 2. Metabolic acidosis. Expect improvement with dialysis. 3. Anemia, no active bleeding noted currently. 4. Status post cardiac arrest with anoxic encephalopathy. 5. Hypoxic respiratory failure, currently maintained on BiPAP. 6. Volume overload, expect improvement with dialysis. PLAN: 1. Hemodialysis today. 2. Consult Vascular Surgery for temporary catheter placement. We will plan to dialyze him again tomorrow. We will try to remove about 1-2 L as tolerated. MMODL / IJN: [id number] /
--- NOTE | 2019-11-07 12:33 | P.PN ---
Subjective Progress Note Date: 11/07/19 Principal diagnosis: Encephalopathy due to multifacotrial Post cardiac arrest she was seen at bedside and he was on the BiPAP machine. He continues not to be responding the to staff members. patient to remain said to be not moving any of his extremities. Upon seeing the patient he was not responding. He was not on any sedation. Per ICU team as well as nephrology team will restart patient's dialysis to see whether the patient will have any improvement. Objective - Vital Signs Vital signs: Vital Signs Temp 97.6 F 11/07/19 08:00 Pulse 88 11/07/19 12:05 Resp 20 11/07/19 11:00 BP 116/57 11/07/19 04:00 Pulse Ox 97 11/07/19 11:00 Intake & Output 11/06/19 11/07/19 11/07/19 18:59 06:59 18:59 Intake Total 1586 1446 443 Output Total 3275 465 1210 Balance -1689 981 -767 Weight 62.8 kg 63.2 kg Intake: IV 636 636 265 Dextrose 5% in Water 1, 600 600 250 000 ml @ 50 mls/hr IV . Q23H ANTHONY with Sodium Bicarb (1 Meq/ml) 150 ml Rx#:[id number] Pressure Bag 0.9 36 36 15 Intake, IV Titration 50 Amount cefTRIAXone 1 gm In 50 Sodium Chloride 0.9% 50 ml @ 100 mls/hr IVPB Q24HR ANTHONY Rx#:[id number] Tube Feeding 720 720 148 Other 180 90 30 Output: Urine 275 465 210 Stool 3000 1000 Other: Voiding Method Indwelling Catheter Indwelling Catheter Indwelling Catheter ABP, PAP, CO, CI - Last Documented Arterial Blood Pressure 134/49 - Exam Exam is limited because of patient condition: He was on BiPAP machine General: Patient does not seem in distress. HENT: supple Respiratory: Clear to ausculation and no wheezing noted. On BiPAP machine Neurological: Higher mental function: patient has his eyes closed. Opens his eyes to painful stimuli. And with painful stimuli on either the right side or left side he'll open his eyes and the look towards the me. He is not following any commands. Cranial Nerves: Pupils are 3mm bilaterally and reactive to light. Primary gaze is midline bilaterally. cannot assess the facial sensation because of his condition. No facial weakness noted bilaterally or gag reflex since he was on BiPAP. Motor: Strength: Quadraparesis. No spontaneous movement noted. Decrease tone in bilateral upper extremities compared to lower extremities. Sensory: intact the pupils and eye. Reflexes: 1-2+ throught except at ankles 0 bilaterally. Plantars: mute bilaterally. - Labs CBC & Chem 7: 11/07/19 05:15 11/07/19 05:15 Labs: Abnormal Lab Results - Last 24 Hours (Table) 11/06/19 11/07/19 11/07/19 Range/Units 18:02 00:59 05:15 WBC 17.2 H (3.8-10.6) k/uL RBC 2.11 L (4.30-5.90) m/uL Hgb 6.9 L* (13.0-17.5) gm/dL Hct 22.6 L (39.0-53.0) % MCV 107.2 H (80.0-100.0) fL MCHC 30.4 L (31.0-37.0) g/dL RDW 21.1 H (11.5-15.5) % Plt Count 69 L (150-450) k/uL Macrocytosis Marked A Chloride (98-107) mmol/L Carbon Dioxide (22-30) mmol/L BUN (9-20) mg/dL Creatinine (0.66-1.25) mg/dL Glucose (74-99) mg/dL POC Glucose (mg/dL) 143 H 145 H (75-99) mg/dL Ammonia (<30) umol/L Crossmatch 11/07/19 11/07/19 11/07/19 Range/Units 05:15 05:15 05:19 WBC (3.8-10.6) k/uL RBC (4.30-5.90) m/uL Hgb (13.0-17.5) gm/dL Hct (39.0-53.0) % MCV (80.0-100.0) fL MCHC (31.0-37.0) g/dL RDW (11.5-15.5) % Plt Count (150-450) k/uL Macrocytosis Chloride 111 H (98-107) mmol/L Carbon Dioxide 21 L (22-30) mmol/L BUN 62 H (9-20) mg/dL Creatinine 6.23 H (0.66-1.25) mg/dL Glucose 127 H (74-99) mg/dL POC Glucose (mg/dL) 136 H (75-99) mg/dL Ammonia 75 H (<30) umol/L Crossmatch 11/07/19 Range/Units 06:00 WBC (3.8-10.6) k/uL RBC (4.30-5.90) m/uL Hgb (13.0-17.5) gm/dL Hct (39.0-53.0) % MCV (80.0-100.0) fL MCHC (31.0-37.0) g/dL RDW (11.5-15.5) % Plt Count (150-450) k/uL Macrocytosis Chloride (98-107) mmol/L Carbon Dioxide (22-30) mmol/L BUN (9-20) mg/dL Creatinine (0.66-1.25) mg/dL Glucose (74-99) mg/dL POC Glucose (mg/dL) (75-99) mg/dL Ammonia (<30) umol/L Crossmatch See Detail Assessment and Plan Assessment: 69 y/o male with witnessed cardiac arrest with downtime of around 12 minute. Encephalopathy and quadraparesis due multifactorial: hepatic encephalopathy with elevated ammonia, MUMTAZ on CKI, anemia and result of post-cardiac arrest. Encephalopathy that is multifactorial (MUMTAZ on CKI, shock liver, post-cardiac arrest) MUMTAZ on CKD Anemia Post-cardiac arrest Shock liver due to above Coagulopathy History of alcoholism Plan: CT head 10/27/19: No acute abnormalities but showed old right lacunar infarct in jung radiata, chronic white matter changes Patient EEG 10/27 showed generalized cerebral dysfunction as can be seen with toxic metabolic encephalopathy or diffuse structural brain abnormality. Presence of triphasic waves suggest hepatic encephalopathy. Vitamin B12 is 122 but Methylmalonic acid is 0.73 (elevated). RBC folate is normal. Since last ammonia level was 75. Last creatinine is 6.23. -Regarding his worsening encephalopathy (which I felt was same as my previous exam) will repeat EEG study. -he is having worsening of his creatinine levels so to resume the dialysis. Regarding quadraparesis could be due to his multiple medical issues. If condition does not improves and with improvement in renal issue/metabolic issue level the consider repeating CT head w/o constrast and if not abnormality seen consider MRI Brain and consider MRI C-spine -regarding high ammonia level patient is on Lactulose 300mg daily and Rifaximin 550mg bid. Defer management to ICU and primary team. -Regarding management of his medical issues we will defer to ICU and primary team. Patient condition is guarded. Patient suffered a cardiac arrest and has multiple medical issues and as a result it its uncertain if the patient will go back to his baseline. If he does improves he will need dependence on his ADLs: he will be dependent on feeding, possibly respiratory issues etc. Also he is having this quadriparesis which we needs further workup. For now we will reassess the patient's condition after getting a couple of dialysis treatment. We will continue to follow. Donell Zapien MD Neuro-hospitalist Time with Patient: Greater than 30
[2019-11-07 13:03] LABS: Glucose,Whole Blood 142 mg/dL (75-99)
[2019-11-07] MEDS ORDERED: HEPARIN SODIUM 1,000 UN/ML (10ML VL) ONE (14:45)
[2019-11-07] MEDS ORDERED: LIDOCAINE 1% INJ 10MG/ML (20 ML MDV) ONE (14:45)
--- NOTE | 2019-11-07 15:47 | EEG ---
ELECTROENCEPHALOGRAM REPORT DATE OF SERVICE: 11/07/2019 This is a 69-year-old gentleman that is admitted to the hospital on 10/28/2019 after a cardiac arrest lasting about 12 minutes, has acute kidney injury on chronic kidney disease on dialysis. He was intubated during the admission and currently is extubated. This EEG was obtained to evaluate for seizure and epileptiform activity since the patient remains to have altered mental status change. EEG TYPE: This is a routine 21-channel EEG was performed with video using the 10-20 electrode placement system. DESCRIPTION: During stimulate state, the patient background consisted of frequent moderate voltage of diffuse 0.5 to 1.5 delta activity that is asynchronous and seen over the bilateral hemisphere. That intermixed with generalized periodic discharges with anterior to posterior lie in the bilateral hemisphere as seen in triphasic waves. During the unstimulated state, there continues to be the 0.5 to 1.5 diffuse delta activity that is asynchronous reduced triphasic waves. There is no stage 2 sleep architecture seen during the study. Interictal and ictal, none seen. Activation procedure: Photic stimulation did not evoke a posterior driving response. Hyperventilation was not performed because of the patient's clinical history. DIAGNOSIS: This is an abnormal routine EEG due to: 0.5 to 1.5 diffuse delta activity over the bilateral hemisphere that is asynchronous intermixed with triphasic waves more during stimulated than unstimulated state. CLINICAL INTERPRETATION: This is an abnormal EEG study. The diffuse delta swelling intermixed with triphasic morphology is suggestive of severe encephalopathy of unspecified etiology. Triphasic waves is due likely to toxic metabolic encephalopathy. There is no focal slowing. There is no intraictal or seizure activity during this study. Compared to the previous EEG study on 10/28/2019, this seems worse. Clinical interpretation is recommended. MMODL / IJN: [id number] / MTDD
[2019-11-07 18:22] LABS: Glucose,Whole Blood 149 mg/dL (75-99)
--- NOTE | 2019-11-07 18:45 | P.PN ---
Progress Note - Text Progress Note Date: 11/07/19 Presenting complaint: Short of breath Interval history: From the records: This is a 69 years old male With multiple medical problems as below. Patient is intubated and unresponsive and could not provide information so it was obtained from staff and medical records, no family at bedside. Patient Presents because the neighbors called 911/AMS 4 patient was dyspneic, and brought to the hospital patient became unresponsive with PEA in ambulance, CPR was in associated, he got 3 samples of epinephrine in the ambulance and 1 other dose of epinephrine in the hospital. His CPR downtown was about 20 minutes Patient also hypoglycemic and hypothermic and hypotensive , blood glucose was 20 h glucose D 50% with partial correction and was placed on D10% effusion, however his sugar jumped to 800 so D10%was stopped and currently glucose in around 300. He was placed on Jarad hugger and Currently he is on Levophed at 0.57 which is high dose showing leukocytosis of 12.9 and 19.7 K, hemoglobin 6.6 corrected to 9.2 after blood transfusion, platelets 46 and 50 5K. INR 4.5 and 3.9. PH was 6.9 and 7. 2. Creatinine 2.6 which are unknown baseline. Lactic acid 8.0 7.0. Elevated liver enzymes with AST 3652 and ALT 472 . Troponin is negative Hemoglobin was 6 and INR was 4 and he got 1 dose of vitamin K and 2 units of blood transfusion Patient got Zithromax and ceftriaxone in the emergency room, patient continued on Zosyn, patient extubated on October 30. Pending hearing for a court-appointed guardian. Today-In the ICU. Very lethargic. Barely arousable. On Jarad hugger. BiPAP of 01/10. Getting 2 feeding at 44 mL an hour. Sinus rhythm. Review of systems: Unable to obtain Active Medications Albuterol/Ipratropium (Duoneb 0.5 Mg-3 Mg/3 Ml Soln) 3 ml INHALATION RT-Q2H PRN PRN Reason: Shortness Of Breath Or Wheezing Albuterol/Ipratropium (Duoneb 0.5 Mg-3 Mg/3 Ml Soln) 3 ml INHALATION RT-QID ANTHONY Last Admin: 11/07/19 16:59 Dose: 3 ml Documented by: Darbepoetin Von (Aranesp) 60 mcg SQ Q7D [facility] Last Admin: 11/07/19 14:14 Dose: 60 mcg Documented by: Furosemide (Lasix) 80 mg IV Q12HR [facility] Last Admin: 11/07/19 08:30 Dose: 80 mg Documented by: Sodium Bicarbonate 150 ml/ (Dextrose/Water) 1,150 mls @ 50 mls/hr IV .Q23H [facility] Last Admin: 11/07/19 01:07 Dose: 50 mls/hr Documented by: Midodrine (Proamatine) 10 mg PO AC-TID [facility] Last Admin: 11/07/19 17:05 Dose: 10 mg Documented by: Miscellaneous Information (Potassium Per Protocol) 1 each MISCELLANE DAILY PRN; Protocol PRN Reason: Per Protocol Miscellaneous Information (Magnesium Per Protocol) 1 each MISCELLANE DAILY PRN; Protocol PRN Reason: Per Protocol Naloxone HCl (Narcan) 0.2 mg IV Q2M PRN PRN Reason: Opioid Reversal Pantoprazole Sodium (Protonix) 40 mg IVP DAILY [facility] Last Admin: 11/07/19 08:30 Dose: 40 mg Documented by: Sodium Bicarbonate (Sodium Bicarbonate Tab) 650 mg PO QID [facility] Last Admin: 11/07/19 17:05 Dose: 650 mg Documented by: On examination: VITAL SIGNS: 95.9, 88, 18, 04/24/1948, 94% on BiPAP GENERAL APPEARANCE: Laying in bed with the BiPAP, barely arousable. HEENT: Normal external appearance of nose and ear. Oral cavity dry, NG tube, BiPAP EYES: Pupils equal. Conjunctiva pale. NECK: JVD not raised. Mass not palpable. RESPIRATORY: Respiratory effort increased, decreased breath sounds,. Expiratory coarse crackles CARDIOVASCULAR: First and second sounds normal. Significant edema ABDOMEN: Soft. Liver and spleen not palpable. No tenderness. No mass palpable. PEG tube site appearance clean. Significant scrotal edema DERMATOLOGICAL: Stage II decubital ulcers NEUROLOGICAL: Minimally responsive PSYCHIATRY: Unable to assess INVESTIGATIONS, reviewed in the clinical context: White count 7.2 hemoglobin 6.9 platelets 69 potassium 3.6 bun 62 creatinine 6.23 ammonia 75 Previous testing Chest [id number] infiltrate Computed tomography scan of the chest-bibasilar airspace disease, emphysema changes, chronic calcific pancreatitis, Computed tomography scan of the brain-old lacunar infarct in the jung radiata on the right, chronic changes EEG-suggestive of generalized cerebral dysfunction Assessment: -Status post cardiac arrest witnessed-downtime of about 12 minutes. -Chronic kidney disease stage III from nephrosclerosis -Acute kidney injury possibly ATN- worsening, -Moderate protein calorie malnutrition -not improving -Hepatic encephalopathy on lactulose-no improvement -Quadriparesis likely from critical care myopathy and metabolic -Chronic medical debility does use a wheelchair -Chronic esophagitis -Chronic dysphagia -Ischemic hepatitis from hypotension-improving -Hypocalcemia -Aspiration pneumonia due to altered mental status -Chronic pancreatitis -Combination of metabolic and respiratory acidosis. -acute hypoxic respiratory failure, on ventilator -extubated October 30 -Hypotensive and/or septic shock requiring pressor support-now on midodrine -Significant edema due to third spacing from severe hypoalbuminemia -Stage II decubitus ulcer -Metabolic encephalopathy-worsening not improving -Court-appointed legal guardian. -Severe metabolic acidosis, from renal failure Plan: Prognosis remains poor. Had dropped hemoglobin to 6.9 and ordered a unit of blood earlier today. Awaiting court decision about patient's CODE STATUS. Patient continues to do poorly. Continue supportive care. On 2 feeding
--- NOTE | 2019-11-07 19:32 | CONS ---
DATE OF CONSULTATION: 11/07/2019 Patient was seen for placement of urgent dialysis catheter. Patient is a 69-year-old male with multiple medical problems. The patient has been intubated due to cardiac arrest. The patient has a history of hypertension, post cardiopulmonary arrest, respiratory failure, possible aspiration pneumonia, pleural effusion post thoracocentesis, history of renal failure. I was consulted for placement of the dialysis catheter. The patient was seen in the room. The patient has been intubated. Neck has a triple-lumen catheter for IV access. Chest has crackles bilaterally. Abdomen is soft. 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 Left groin has a triple-lumen catheter. Plan is placement of the dialysis catheter, right femoral approach. Risks and complications were discussed. ENRIQUE / RAMILA: [id number] / MTDD
--- NOTE | 2019-11-07 23:14 | PCN ---
PROCEDURE NOTE PREOP DIAGNOSIS: Acute renal failure. PROCEDURE PERFORMED: Ultrasound-guided right femoral catheter placed. DESCRIPTION OF PROCEDURE: The patient was seen in the intensive care unit. Right groin was prepped and drapes applied in the usual sterile manner. 1% lidocaine plain infiltrated. Ultrasound- guided micropuncture introduced right common femoral vein. Micropuncture guidewire was passed and a 4 Kiswahili dilator advanced on the top of the guidewire. Then we passed a regular guidewire without any resistance. The dilator was advanced and then we placed a double-lumen dialysis catheter on the top of the guidewire. The guidewire was removed. Flushed with heparin saline and hep-locked and secured with 3-0 nylon. Patient tolerated the procedure well. MMODL / IJN: [id number] /
[2019-11-08] MEDS: DEXTROSE 5% IN WATER 1,000 ML with SODIUM BICARB (1 MEQ/ML) 150 ML IV SCH ×2
[2019-11-08 01:16] LABS: Glucose,Whole Blood 146 mg/dL (75-99)
[2019-11-08 04:52] LABS: Glucose,Whole Blood 145 mg/dL (75-99)
[2019-11-08 05:18] LABS: Anisocytosis Moderate; HCT 25.9 % (39.0-53.0); Hypochromasia Slight; MCH 31.8 pg (25.0-35.0); MCHC 31.1 g/dL (31.0-37.0); MCV 102.3 fL (80.0-100.0); Macrocytosis Moderate; Mean Platelet Volume 12.5; RBC 2.53 m/uL (4.30-5.90); RDW 20.1 % (11.5-15.5)
[2019-11-08 05:20] LABS: Platelet Count 55 k/uL (150-450)
[2019-11-08 05:24] LABS: Calcium 9.2 mg/dL (8.4-10.2); Potassium 3.1 mmol/L (3.5-5.1)
[2019-11-08 05:28] LABS: Band Neutrophils % 3 %; Eosinophils # (M) 0.34 k/uL (0-0.7); Monocytes # (M) 0.34 k/uL (0-1.0); Neutrophils % (M) 83 %; Nucleated Red Blood Cells 0 /100 WBC (0-0); Polychromasia Present; Target Cells Present; Total Cells Counted 100; Toxic Granulation Present
[2019-11-08] MEDS: POTASSIUM CHLORIDE 20 MEQ in WATER FOR INJECTION 1 100ML.BAG IVPB SCH ×2 (06:20→08:34)
[2019-11-08] MEDS: MIDODRINE 5 MG TAB PO SCH ×3 (06:21→17:47)
[2019-11-08] MEDS ORDERED: POTASSIUM CHLORIDE ER 20 MEQ TAB.ER PO SCH (07:00)
[2019-11-08] MEDS: FUROSEMIDE 10 MG/ML 10 ML VIAL IV SCH ×2 (08:32→20:24)
[2019-11-08] MEDS: SODIUM BICARBONATE TAB 650 MG TAB PO SCH ×4 (08:32→20:24)
[2019-11-08] MEDS: PANTOPRAZOLE 40 MG/10 ML VIAL IVP SCH (08:32)
[2019-11-08] MEDS: RIFAXIMIN 550 MG TABLET PO SCH ×2 (08:34→20:55)
[2019-11-08] MEDS: IPRATROPIUM-ALBUTEROL 3 ML NEB INHALATION SCH ×4 (08:44→19:37)
[2019-11-08 09:26] LABS: Total Bilirubin 1.1 mg/dL (0.2-1.3)
[2019-11-08 11:39] LABS: Glucose,Whole Blood 123 mg/dL (75-99)
--- NOTE | 2019-11-08 12:02 | PN ---
PROGRESS NOTE Patient is seen for followup for acute kidney injury on top of chronic kidney disease. It was decided to proceed with dialysis yesterday. Patient had about 2 hour treatment yesterday. He did not tolerate it well. His heart rate had increased and blood pressure dropped to below 90 mmHg. We did not remove much fluid. There are plans for dialysis again today. PHYSICAL EXAMINATION: On examination, patient is unresponsive. He is on BiPAP. Blood pressure is 116/57, heart rate 87 per minute, he is afebrile. Examination of the heart S1, S2. Examination of the lungs, bilateral breath sounds are heard. Abdomen is soft. Examination of the lower extremities shows edema, 2+ bilaterally. INSTRUCTIONAL DESIGNER exam shows patient is unresponsive, responds minimally to pain. LABS: Show sodium 140, potassium 3.1, BUN 58, creatinine 4.93, hemoglobin 8.0 g/dL. ASSESSMENT: 1. Acute kidney injury, acute tubular necrosis, currently nonoliguric, status post first treatment of hemodialysis yesterday; however, patient did not tolerate his treatment well. We will try to dialyze him again today and if he remains hemodynamically stable, we will not proceed with further renal replacement therapy. It was decided to proceed with dialysis as an it may have been contributing to some mental status changes, in view of the fact that the patient was not being changed to comfort care measures. 2. Mental status changes with anoxic encephalopathy, possibly component of uremic encephalopathy as well, being followed by Neurology. 3. Hypokalemia, status post replacement. 4. Respiratory failure, maintained on BiPAP. 5. Volume overload. 6. Metabolic acidosis, status post bicarb drip. PLAN: Try hemodialysis again today. If the patient does not tolerate his treatment well, I will not proceed with further renal replacement therapy and we need to consider comfort care measures. I do not see any significant change in his mentation. MMODL / IJN: [id number] /
--- NOTE | 2019-11-08 12:32 | P.PN ---
Subjective Progress Note Date: 11/08/19 This patient is doing poorly. He is a 69-year-old male patient is been hospital post cardiac arrest. The patient is known to have alcoholism, and liver disease secondary to alcoholism/cirrhosis. He is also known to have chronic kidney disease, chronic pancreatitis, hypothyroidism, recurrent UTIs, and previous history of respiratory failure requiring intubation mechanical ventilation. This was attributed to a staphylococcal pneumonia. He also has old lacunar infarcts and his baseline performance and functional status extremely impaired. During this current admission, the patient came in with cardiac arrest. CPR was offered to him for a total of 20 minutes prior to arrival to the hospital and the patient received 3 rounds of epinephrine and he lost his pulse and he was found to be PEA. He arrived pulseless and CPR was continued and there was return of spontaneous circulation ultimately after 20 minutes of resuscitation. He had acute respiratory arrest due to cardiac arrest and the patient required intubation mechanical ventilation and was extubated on 10/31/2019. He is course was Again by shock liver, acute on top of chronic kidney injury where his creatinine is on the rise and the patient is producing diminished amount of urine output. He was extubated and subsequently was placed on a BiPAP for respiratory support. This morning, the patient is pain-free stimulation. Not r esponding to any verbal stimulation. His blood work shows non-anion gap metabolic acidosis with a serum bicarb of 13. BUN is up to 40 now with a creatinine of 5.24. The patient's blood gas show a pH of 7.28 with a pCO2 of 26 and pO2 of 104 and this was done on BiPAP at a pressure of 10/5 cm of water and FiO2 of 40%. He was receiving D5 water at the rate of 50 mL an hour along with some water flushes. He was receiving enteral feeding for nutritional support via an NG tube. Note that his echocardiogram post cardiac arrest with an ejection fraction of around 60% without any significant valvular abnormalities. His chest x-ray from today showing chronic emphysema and some parenchymal fibro tic changes bilaterally left more than right. There is also some bilateral lower lung edema demonstrated. No sedated and change compared to yesterday chest x-ray. Ammonia level is improving. Ammonia level is down to 79 as the patient is receiving Xifaxan. The patient is also on lactulose. He has an FMS system in place. He is also on lactulose. On 11/05/2019 and seeing this patient for a follow-up. The patient is essentially the same. The patient remains unresponsive. The patient's heart is responding to any verbal or painful stimulation. He remains quite encephalopathic and this could be a combination of factors including possibility of hypoxic encephalopathy post cardiac arrest in addition to hepatic/renal encephalopathy as the patient is an liver and kidney failure. On yesterday's evaluation, the patient had a component of non-anion gap metabolic acidosis. He was started on bicarb drip which is still running at a rate of 100 mL an hour. The patient is producing adequate amount of urine output. The patient is also having liquidy stool and the patient is currently on a combination of Xifaxan and lactulose for hepatic encephalopathy. The patient has a fecal management system in place. Meanwhile, the renal function is still impaired and the creatinine is on the rise. On today's evaluation , the patient's serum bicarbonate was up to 16. Creatinine is up to 5.9 with a mean of 52. Glucose is 106. We are still not planning any dialysis and we are considering sending patient to come for care measures once guardianship has been established. Meanwhile, the patient remains BiPAP dependent at the pressure of 10/5 with an FiO2 of 40%. Chest x-ray shows essentially no significant change impaired to yesterday's chest x-ray . The patient has a Zhu catheter in place. The patient has an NG tube in place. The patient is receiving enteral feeding for nutritional support. Lactulose will be discontinued for now. Urine output is normal at 15-20 mL an hour. 11/06/2019, no change in the patient's condition. Neurologically the same. Unresponsive. Barely responsive to painful stimulation. Nonverbal. Opens his eyes occasionally without any stimulation, spontaneously. Remains on a BiPAP at a pressure of 10/5 7 m water and FiO2 of 40%. Chest x-ray findings are essentially unchanged. There is increased infiltration of the lung bases embolus changes in the upper lobes bilaterally. NG tube is in place. Tolerating enteral feeding with vital high protein at the rate of 60 mL an hour. Cardiac rhythm is sinus. Remains on a Infusion rate of 50 mL an hour. Serum bicarb is improving and the patient is also on Lasix 80 mg IV push every 12 hours. Still havingliquidy bowel movements and diarrhea. Urinary was no order of 10-50 mL an hour. Overall fluid balance is -1 L over the past 24 hours. No seizure activity. No significant cardiac arrhythmias. No other significant events over the past 24 hours. As mentioned earlier, we are trying to establish guardianship. Unfortunately the patient remains encephalopathic and unresponsive. This is a multifactorial in nature including the possibility of anoxic encephalopathy post cardiac arrest. 11/07/2019, we haven't done and followed up progress in this patient's condition. He remains unresponsive. A legal guardian has been established. I had a lengthy conversation with the assigned guardian. We discussed his condition. Discussed his poor outcome based on the presence of multisystem organ failure in addition to her cardiac arrest and underlying chronic liver disease and acute on top of chronic kidney injury. In terms of his mentation, there is the possibility of him having a metabolic encephalopathy based on his underlying renal failure and hepatic failure. The legal guardian request another neurology evaluation which we did and I asked Dr. Zapien to reevaluate this patient's neurologic status and function. Meanwhile, after having a lengthy discussion with nephrology and neurology, with a sense was failure to offer this patient to session of hemodialysis and reevaluate his neuro status should there be any improvement. As such vascular surgery surgery was again con sulted. On today's evaluation, the patient's blood work shows a BUN of 62 with a creatinine of 6.2. His hemoglobin is at 6. without any evidence of GI bleed. He is currently on a BiPAP at a pressure of 10/5 cm of water FiO2 40%. The chest x-ray remains unchanged with increased by the pulmonary infiltrates lung bases bilaterally. The patient is still having some loose liquidy diarrhea. He remains on vital high protein 1.2 at the rate of 44 mL an hour. Cardiac rhythm is sinus. No other significant events overnight. White cell count is at 17.2. He is afebrile. He is serum ammonia level is down to 75. On 11/08/2019, the patient is being seen for a follow-up. As mentioned yesterday, the patient was started on hemodialysis yesterday. A temper does cath was inserted in his right femoral vein and he was given an hour of dialysis yesterday which she was unable to tolerate because of hypotension. The procedure was interrupted. The patient this morning was seen again prior to his dialysis. He was quite lethargic unresponsive. At times he would open up his eyes spontaneously. Nevertheless, no reactions, no grimacing to painful stimulation, no response to painful stimuli. He remains on a BiPAP at the same pressure setting of 10/5 cm of waterFiO2 40%. He remains on a bicarb infusion with improvement in serum bicarb level. He is a bit hypothermic and the patient is receiving external warming. Chest x-ray shows no interval change. His serum ammonia level is down to 51. Creatinine is at 4.0 to be on a 58. His liver function tests are within normal limits and albumin level is at 2.0. Glucose is at 123. As such, it was attempted to give the patient another session of hemodialysis. The patient started developing V. tach and he became hypotensive again and the dialysis was interrupted. Nephrology will be informed of these changes. He is having significant third spacing secondary to limb being in bed for prolonged period of time and has also become hypoalbuminemic. He still awaiting his enteral feeding for nutritional support. He had a urine output ord er of 15-20 mL an hour. He remains on IV Lasix. Enterofeeding in the form of vital high protein at the rate of 60 mL an hour. Objective - Vital Signs Vital signs: Vital Signs Temp 97.0 F L 11/08/19 08:00 Pulse 89 11/08/19 11:32 Resp 16 11/08/19 11:00 BP 116/57 11/08/19 11:00 Pulse Ox 99 11/08/19 11:00 Intake & Output 11/07/19 11/08/19 11/08/19 18:59 06:59 18:59 Intake Total 1676 1446 645 Output Total 1480 580 120 Balance 196 866 525 Weight 63.2 kg 63.7 kg Intake: IV 636 636 115 Dextrose 5% in Water 1, 600 600 100 000 ml @ 50 mls/hr IV . Q23H ANTHONY with Sodium Bicarb (1 Meq/ml) 150 ml Rx#:[id number] Pressure Bag 0.9 36 36 15 Intake, IV Titration 200 Amount Potassium Chloride 20 meq 200 In Water For Injection 1 100ml.bag @ 50 mls/hr IVPB Q2H ANTHONY Rx#: [id number] Tube Feeding 640 720 300 Blood Product 310 Rc As-1 Unit 310 [id number] Other 90 90 30 Output: Urine 480 580 120 Stool 1000 Other: Voiding Method Indwelling Catheter Indwelling Catheter ABP, PAP, CO, CI - Last Documented Arterial Blood Pressure 118/50 - Exam GENERAL EXAM: Minimally responsive 69-year-old male patient, extremely debilitated, coming more cachectic, BMI is 20.7, completely unresponsive, at times he opens his eyes spontaneously without any reaction., he is on BiPAP 10/5 and 50% FiO2, NG tube is in place quite pale and chronically ill appearing, wearing a BiPAP mask. HEAD: Normocephalic/atraumatic. EYES: Normal reaction of pupils, equal size. Conjunctiva pink, sclera white. NOSE: Clear with pink turbinates. NG tube is in place to low intermittent suction THROAT: No erythema or exudates. NECK: No masses, no JVD, no thyroid enlargement, no adenopathy. The patient has an NG tube in place at the same time he has a full face mask BiPAP that he is able to tolerate without any major difficulties. CHEST: No chest wall deformity. Symmetrical expansion. LUNGS: Equal air entry with basilar crackles and scattered rhonchi CVS: Regular rate and rhythm, normal S1 and S2, no gallops, no murmurs, no rubs ABDOMEN: Soft, nontender. No hepatosplenomegaly, normal bowel sounds, no guarding or rigidity. EXTREMITIES: No clubbing, no cyanosis, 2+ pulses and upper and lower extremities. Generalized anasarca, swelling, 2+ lower extremity edema, 1+ upper extremity edema, edema involving abdominal wall, and severe scrotal edema MUSCULOSKELETAL: Muscle strength and tone normal. SPINE: No scoliosis or deformity SKIN: No rashes CENTRAL NERVOUS SYSTEM: No focal deficits, tone is normal in all 4 extremities. PSYCHIATRIC: Unresponsive to verbal or painful stimulation. Pupils are equal and reactive to light. No nystagmus or clonus no facial asymmetry. Reflexes are diminished. - Labs CBC & Chem 7: 11/08/19 04:55 11/08/19 04:55 Labs: Abnormal Lab Results - Last 24 Hours (Table) 11/07/19 11/07/19 11/07/19 Range/Units 06:00 13:01 18:20 WBC (3.8-10.6) k/uL RBC (4.30-5.90) m/uL Hgb (13.0-17.5) gm/dL Hct (39.0-53.0) % MCV (80.0-100.0) fL RDW (11.5-15.5) % Plt Count (150-450) k/uL Neutrophils # (Manual) (1.3-7.7) k/uL Potassium (3.5-5.1) mmol/L BUN (9-20) mg/dL Creatinine (0.66-1.25) mg/dL Glucose (74-99) mg/dL POC Glucose (mg/dL) 142 H 149 H (75-99) mg/dL Ammonia (<30) umol/L Albumin (3.5-5.0) g/dL Crossmatch See Detail 11/08/19 11/08/19 11/08/19 Range/Units 01:04 04:50 04:55 WBC 17.0 H (3.8-10.6) k/uL RBC 2.53 L (4.30-5.90) m/uL Hgb 8.0 L (13.0-17.5) gm/dL Hct 25.9 L (39.0-53.0) % MCV 102.3 H (80.0-100.0) fL RDW 20.1 H (11.5-15.5) % Plt Count 55 L (150-450) k/uL Neutrophils # (Manual) 14.60 H (1.3-7.7) k/uL Potassium (3.5-5.1) mmol/L BUN (9-20) mg/dL Creatinine (0.66-1.25) mg/dL Glucose (74-99) mg/dL POC Glucose (mg/dL) 146 H 145 H (75-99) mg/dL Ammonia (<30) umol/L Albumin (3.5-5.0) g/dL Crossmatch 11/08/19 11/08/19 11/08/19 Range/Units 04:55 04:55 10:57 WBC (3.8-10.6) k/uL RBC (4.30-5.90) m/uL Hgb (13.0-17.5) gm/dL Hct (39.0-53.0) % MCV (80.0-100.0) fL RDW (11.5-15.5) % Plt Count (150-450) k/uL Neutrophils # (Manual) (1.3-7.7) k/uL Potassium 3.1 L (3.5-5.1) mmol/L BUN 58 H (9-20) mg/dL Creatinine 4.93 H (0.66-1.25) mg/dL Glucose 137 H (74-99) mg/dL POC Glucose (mg/dL) (75-99) mg/dL Ammonia 51 H (<30) umol/L Albumin 2.0 L (3.5-5.0) g/dL Crossmatch 11/08/19 Range/Units 11:37 WBC (3.8-10.6) k/uL RBC (4.30-5.90) m/uL Hgb (13.0-17.5) gm/dL Hct (39.0-53.0) % MCV (80.0-100.0) fL RDW (11.5-15.5) % Plt Count (150-450) k/uL Neutrophils # (Manual) (1.3-7.7) k/uL Potassium (3.5-5.1) mmol/L BUN (9-20) mg/dL Creatinine (0.66-1.25) mg/dL Glucose (74-99) mg/dL POC Glucose (mg/dL) 123 H (75-99) mg/dL Ammonia (<30) umol/L Albumin (3.5-5.0) g/dL Crossmatch Assessment and Plan Plan: 1 Cardiac arrest with approximate 20 minutes of CPR, for epinephrine and subsequent return of spontaneous circulation. Consider underlying anoxic encephalopathy post cardiac arrest. 2 Acute respiratory arrest secondary to above requiring intubation mechanical ventilatory support, extubated 10/31/2019, the patient currently is BiPAP dependent and the chest x-ray showing bilateral pulmonary changes consistent with COPD and some parenchymal fibrotic changes with tiny left more than right pleural effusions. The patient also has some interstitial edema without any significant change compared to yesterday's chest x-ray. The patient is currently receiving BiPAP for respiratory support and pressure of 10/5 cm of water with an FiO2 of 40%. He seems to be quite BiPAP dependent unable to be weaned at all. 3 Acute hypotension with suspected septic shock requiring norepinephrine, recovered 4 shock liver secondary to above, improved, and the liver function tests have normalized. 5 Acute on chronic renal failure, and the renal function was started on hemodialysis yesterday. That the dialysis session yesterday was complicated by hypotension. Dialysis session for today was [place] by cardiac arrhythmias, and ventricular arrhythmias and hypotension. Both of the sessions were interrupted and stop and the patient was unable to complete a full session. Urine output is minimal at this point in time. He remains on IV Lasix 6 altered mentation, responsiveness. The ongoing encephalopathy is still active issue for this patient. We have not seen any significant signs of neurologic recovery. Discussed the case with neurology. A repeat neurology evaluation will be done. Meanwhile, the patient is going to be given 2 sessions of hemodialysis and his neuro status is to be reevaluated. He is ammonia level is at 75 at this point and the patient is still on Xifaxan. 7 Coagulopathy secondary to shock liver and chronic liver disease, most recent INR is down to 1.7 8 Chronic pancreatitis 9 History of alcoholism 10 Chronic normocytic anemia 11 Previous history of ventilatory dependent respiratory failure secondary to MSSA pneumonia 12 Chronic dysphagia secondary to vocal cord injury with previous PEG tube placement, the patient is tolerating enteral feeding for nutritional support. The patient is also on a combination of lactulose and Xifaxan. The patient will be taken of the lactulose and the patient is having significant amount of diarrhea. We'll keep the Xifaxan for now. Continue enteral feeding for nutritional support. 13 History of previous GI bleed 14 Cerebral atrophy along with chronic small vessel ischemia 15 underlying gap metabolic acidosis, recovered and the patient got replaced with sodium bicarb Plan The prognosis remains extremely poor baseline above-mentioned morbidities. The patient remains unresponsive. The patient is still encephalopathic. Dialysis was attempted and seems to be failing at this point in time because of hemodynamic changes. We'll discuss this with nephrology. We'll discuss this with a legal guardian. I think it's reasonable to consider comfort care measures as long as the patient's condition and comorbid set extensive and he has multisystem organ failure. He will be supported with BiPAP. We'll be continued on his enteral feeding for nutritional support. We'll stop the bicarb infusion. Ammonia level is improving. LFTs and have normalized. Continue Xifaxan. Continue the rest of the supportive care and discuss the possibility of comfort care measures with the primary care team
[2019-11-08 17:55] LABS: Glucose,Whole Blood 116 mg/dL (75-99)
--- NOTE | 2019-11-08 19:48 | P.PN ---
Progress Note - Text Progress Note Date: 11/08/19 Presenting complaint: Short of breath Interval history: From the records: This is a 69 years old male With multiple medical problems as below. Patient is intubated and unresponsive and could not provide information so it was obtained from staff and medical records, no family at bedside. Patient Presents because the neighbors called 911/AMS 4 patient was dyspneic, and brought to the hospital patient became unresponsive with PEA in ambulance, CPR was in associated, he got 3 samples of epinephrine in the ambulance and 1 other dose of epinephrine in the hospital. His CPR downtown was about 20 minutes Patient also hypoglycemic and hypothermic and hypotensive , blood glucose was 20 h glucose D 50% with partial correction and was placed on D10% effusion, however his sugar jumped to 800 so D10%was stopped and currently glucose in around 300. He was placed on Jarad hugger and Currently he is on Levophed at 0.57 which is high dose showing leukocytosis of 12.9 and 19.7 K, hemoglobin 6.6 corrected to 9.2 after blood transfusion, platelets 46 and 50 5K. INR 4.5 and 3.9. PH was 6.9 and 7. 2. Creatinine 2.6 which are unknown baseline. Lactic acid 8.0 7.0. Elevated liver enzymes with AST 3652 and ALT 472 . Troponin is negative Hemoglobin was 6 and INR was 4 and he got 1 dose of vitamin K and 2 units of blood transfusion Patient got Zithromax and ceftriaxone in the emergency room, patient continued on Zosyn, patient extubated on October 30. Pending hearing for a court-appointed guardian. Dialysis catheter placed on November 06. Today-In the ICU. Remains lethargic. Sinus rhythm. . Blood pressure running very low. Making urine at about 30 mL an hour. Tube feeding at 60 mL an hour.. Dialysis was unsuccessful today. The patient going into different arrhythmias. It Artinian spoke to the legal guardian and patient was made DO NOT RESUSCITATE. Review of systems: Unable to obtain Active Medications Albuterol/Ipratropium (Duoneb 0.5 Mg-3 Mg/3 Ml Soln) 3 ml INHALATION RT-Q2H PRN PRN Reason: Shortness Of Breath Or Wheezing Albuterol/Ipratropium (Duoneb 0.5 Mg-3 Mg/3 Ml Soln) 3 ml INHALATION RT-QID [facility] Last Admin: 11/08/19 19:37 Dose: 3 ml Documented by: Darbepoetin Von (Aranesp) 60 mcg SQ Q7D [facility] Last Admin: 11/07/19 14:14 Dose: 60 mcg Documented by: Furosemide (Lasix) 80 mg IV Q12HR [facility] Last Admin: 11/08/19 08:32 Dose: 80 mg Documented by: Midodrine (Proamatine) 10 mg PO AC-TID [facility] Last Admin: 11/08/19 17:47 Dose: 10 mg Documented by: Miscellaneous Information (Potassium Per Protocol) 1 each MISCELLANE DAILY PRN; Protocol PRN Reason: Per Protocol Miscellaneous Information (Magnesium Per Protocol) 1 each MISCELLANE DAILY PRN; Protocol PRN Reason: Per Protocol Naloxone HCl (Narcan) 0.2 mg IV Q2M PRN PRN Reason: Opioid Reversal Pantoprazole Sodium (Protonix) 40 mg IVP DAILY [facility] Last Admin: 11/08/19 08:32 Dose: 40 mg Documented by: Rifaximin (Xifaxan) 550 mg PO BID [facility] Stop: 12/08/19 09:01 Last Admin: 11/08/19 08:34 Dose: 550 mg Documented by: Sodium Bicarbonate (Sodium Bicarbonate Tab) 650 mg PO QID [facility] Last Admin: 11/08/19 17:47 Dose: 650 mg Documented by: On examination: VITAL SIGNS: 97.9, 92, 17, 116/57, 40% on BiPAP GENERAL APPEARANCE: Laying in bed with the BiPAP, barely arousable. HEENT: Normal external appearance of nose and ear. Oral cavity dry, NG tube, BiPAP EYES: Pupils equal. Conjunctiva pale. NECK: JVD not raised. Mass not palpable. RESPIRATORY: Respiratory effort increased, decreased breath sounds,. Expiratory coarse crackles CARDIOVASCULAR: First and second sounds normal. Significant edema ABDOMEN: Soft. Liver and spleen not palpable. No tenderness. No mass palpable. Significant scrotal edema DERMATOLOGICAL: Stage II decubital ulcers NEUROLOGICAL: Minimally responsive PSYCHIATRY: Unable to assess INVESTIGATIONS, reviewed in the clinical context: White count 17 hemoglobin 8 platelets 55 potassium 3.1 creatinine 4.93 Previous testing Chest [id number] infiltrate Computed tomography scan of the chest-bibasilar airspace disease, emphysema giuliana nges, chronic calcific pancreatitis, Computed tomography scan of the brain-old lacunar infarct in the jung radiata on the right, chronic changes EEG-suggestive of generalized cerebral dysfunction Assessment: -Status post cardiac arrest witnessed-downtime of about 12 minutes. -Chronic kidney disease stage III from nephrosclerosis -Acute kidney injury possibly ATN- worsening, progress to end-stage kidney disease. Failed attempted dialysis today. -Moderate protein calorie malnutrition -not improving -Hepatic encephalopathy on lactulose-no improvement -Quadriparesis likely from critical care myopathy and metabolic -Chronic medical debility does use a wheelchair -Chronic esophagitis -Chronic dysphagia -Ischemic hepatitis from hypotension-improving -Hypocalcemia -Aspiration pneumonia due to altered mental status -Chronic pancreatitis -Combination of metabolic and respiratory acidosis. -acute hypoxic respiratory failure, on ventilator -extubated October 30 -Hypotensive and/or septic shock requiring pressor support-now on midodrine -Significant edema due to third spacing from severe hypoalbuminemia -Stage II decubitus ulcer -Metabolic encephalopathy-worsening not improving -Court-appointed legal guardian. -Severe metabolic acidosis, from renal failure Plan: Patient that it is too poorly. Failed attempted dialysis. Patient made DO NOT RESUSCITATE. Continue supportive care. Continue current medications.
[2019-11-09 00:01] LABS: Glucose,Whole Blood 117 mg/dL (75-99)
[2019-11-09 04:18] LABS: Anisocytosis Moderate; Basophils # (A) 0.1 k/uL (0-0.2); Basophils % (A) 1 %; Eosinophils # (A) 0.4 k/uL (0-0.7); Eosinophils % (A) 2 %; HCT 24.2 % (39.0-53.0); HGB 7.5 gm/dL (13.0-17.5); Hypochromasia Slight; Lymphocytes # (A) 1.7 k/uL (1.0-4.8); Lymphocytes % (A) 11 %; MCH 32.1 pg (25.0-35.0); MCHC 30.9 g/dL (31.0-37.0); MCV 103.9 fL (80.0-100.0); Macrocytosis Moderate; Mean Platelet Volume 11.3; Monocytes # (A) 0.6 k/uL (0-1.0); Monocytes % (A) 4 %; Neutrophils # (A) 12.9 k/uL (1.3-7.7); Neutrophils % (A) 80 %; RBC 2.33 m/uL (4.30-5.90); RDW 20.5 % (11.5-15.5); WBC 16.1 k/uL (3.8-10.6)
[2019-11-09 04:20] LABS: Platelet Count 69 k/uL (150-450)
[2019-11-09 04:38] LABS: Albumin 1.9 g/dL (3.5-5.0); Calcium 9.3 mg/dL (8.4-10.2); Potassium 3.8 mmol/L (3.5-5.1); Total Bilirubin 0.9 mg/dL (0.2-1.3); Total Protein 5.3 g/dL (6.3-8.2)
[2019-11-09 06:21] LABS: Glucose,Whole Blood 132 mg/dL (75-99)
--- NOTE | 2019-11-09 07:41 | XR ---
EXAMINATION TYPE: XR chest 1V portable DATE OF EXAM: 11/09/2019 COMPARISON: 11/07/2019 HISTORY: Abnormal x-ray TECHNIQUE: Single frontal view of the chest is obtained. FINDINGS: There is underlying COPD with coarsened interstitium. Subsegmental areas of consolidation are seen with small effusion. Postsurgical change overlying the cervical spine. Central line and NG t ube. Chronic deformity left humerus. IMPRESSION: 1. COPD with improving left basilar infiltrate and pleural effusion. Coarsened basilar interstitium c ould been the basis of a interstitial pneumonitis or chronic interstitial lung disease versus venous congestion.
[2019-11-09] MEDS: IPRATROPIUM-ALBUTEROL 3 ML NEB INHALATION SCH ×4 (08:04→20:39)
--- NOTE | 2019-11-09 08:46 | P.PN ---
Subjective Patient is seen in follow-up for acute kidney injury on chronic kidney disease. Dialysis was attempted again yesterday and had to be stopped within 10 minutes due to arrhythmia and hypotension. Patient is now DO NOT RESUSCITATE. Remains on BiPAP. No improvement in his mentation. Receiving tube feeding. Urine output about 30 mL an hour. Vital signs are stable. General: Appears lethargic. Nonresponsive. HEENT: Head exam is unremarkable. Neck is without jugular venous distension. NG tube noted. On BiPAP. LUNGS: Breath sounds decreased. Scattered rhonchi. HEART: Rate and Rhythm are regular. ABDOMEN: Soft, nontender. EXTREMITITES: 2+ edema. Scrotal edema noted. Objective - Vital Signs Vital signs: Vital Signs Temp 97.3 F L 11/09/19 04:00 Pulse 89 11/09/19 08:18 Resp 15 11/09/19 07:00 BP 116/57 11/09/19 07:00 Pulse Ox 95 11/09/19 07:00 Intake & Output 11/08/19 11/09/19 11/09/19 18:59 06:59 18:59 Intake Total 1209 783 Output Total 360 2605 Balance 849 -1822 Weight 63 kg 66.3 kg Intake: IV 139 33 Dextrose 5% in Water 1, 100 000 ml @ 50 mls/hr IV . Q23H ANTHONY with Sodium Bicarb (1 Meq/ml) 150 ml Rx#:[id number] Pressure Bag 0.9 39 33 Intake, IV Titration 200 Amount Potassium Chloride 20 meq 200 In Water For Injection 1 100ml.bag @ 50 mls/hr IVPB Q2H ANTHONY Rx#: [id number] Tube Feeding 780 660 Other 90 90 Output: Urine 360 605 Stool 2000 Other: Voiding Method Indwelling Catheter Indwelling Catheter ABP, PAP, CO, CI - Last Documented Arterial Blood Pressure 147/53 - Labs CBC & Chem 7: 11/09/19 04:10 11/09/19 04:10 Labs: Abnormal Lab Results - Last 24 Hours (Table) 11/08/19 11/08/19 11/08/19 Range/Units 04:55 10:57 11:37 WBC (3.8-10.6) k/uL RBC (4.30-5.90) m/uL Hgb (13.0-17.5) gm/dL Hct (39.0-53.0) % MCV (80.0-100.0) fL MCHC (31.0-37.0) g/dL RDW (11.5-15.5) % Plt Count (150-450) k/uL Neutrophils # (1.3-7.7) k/uL BUN (9-20) mg/dL Creatinine (0.66-1.25) mg/dL Glucose (74-99) mg/dL POC Glucose (mg/dL) 123 H (75-99) mg/dL Alkaline Phosphatase (38-126) U/L Ammonia 51 H (<30) umol/L Total Protein (6.3-8.2) g/dL Albumin 2.0 L (3.5-5.0) g/dL 11/08/19 11/09/19 11/09/19 Range/Units 17:53 00:00 04:10 WBC 16.1 H (3.8-10.6) k/uL RBC 2.33 L (4.30-5.90) m/uL Hgb 7.5 L (13.0-17.5) gm/dL Hct 24.2 L (39.0-53.0) % MCV 103.9 H (80.0-100.0) fL MCHC 30.9 L (31.0-37.0) g/dL RDW 20.5 H (11.5-15.5) % Plt Count 69 L (150-450) k/uL Neutrophils # 12.9 H (1.3-7.7) k/uL BUN (9-20) mg/dL Creatinine (0.66-1.25) mg/dL Glucose (74-99) mg/dL POC Glucose (mg/dL) 116 H 117 H (75-99) mg/dL Alkaline Phosphatase (38-126) U/L Ammonia (<30) umol/L Total Protein (6.3-8.2) g/dL Albumin (3.5-5.0) g/dL 11/09/19 11/09/19 11/09/19 Range/Units 04:10 04:10 06:19 WBC (3.8-10.6) k/uL RBC (4.30-5.90) m/uL Hgb (13.0-17.5) gm/dL Hct (39.0-53.0) % MCV (80.0-100.0) fL MCHC (31.0-37.0) g/dL RDW (11.5-15.5) % Plt Count (150-450) k/uL Neutrophils # (1.3-7.7) k/uL BUN 57 H (9-20) mg/dL Creatinine 4.93 H (0.66-1.25) mg/dL Glucose 118 H (74-99) mg/dL POC Glucose (mg/dL) 132 H (75-99) mg/dL Alkaline Phosphatase 153 H (38-126) U/L Ammonia 49 H (<30) umol/L Total Protein 5.3 L (6.3-8.2) g/dL Albumin 1.9 L (3.5-5.0) g/dL Assessment and Plan Plan: Assessment: 1. Acute kidney injury secondary to ATN secondary to cardiac arrest. Dialysis attempted twice in November 06 and November 07 but not able to tolerate due to arrhy thmias and hypotension. 2. Chronic kidney disease stage III Baseline creatinine 1.8-2 secondary to nephrosclerosis. 3. Status post cardiac arrest. 4. Hypokalemia from poor intake. Stable. 5. Metabolic acidosis secondary to acute kidney injury. Stable. Maintained on oral sodium bicarbonate. 6. Volume overload. Partially due to severe hypoalbuminemia causing third spacing. 7. Anemia of chronic kidney disease maintained on Aranesp. Plan: 25 g IV albumin 2 doses today. Maintain IV Lasix 80 mg twice daily. Patient unable to tolerate renal replacement therapy. Prognosis guarded. Now DNR.
[2019-11-09] MEDS: ALBUMIN HUMAN 25% 50 ML in EMPTY BAG 1 BAG IVPB SCH ×2 (09:10→21:25)
[2019-11-09] MEDS: SODIUM BICARBONATE TAB 650 MG TAB PO SCH ×4 (09:10→21:28)
[2019-11-09] MEDS: MIDODRINE 5 MG TAB PO SCH ×3 (09:10→18:17)
[2019-11-09] MEDS: PANTOPRAZOLE 40 MG/10 ML VIAL IVP SCH (09:10)
[2019-11-09] MEDS: RIFAXIMIN 550 MG TABLET PO SCH ×2 (09:10→19:45)
[2019-11-09] MEDS: FUROSEMIDE 10 MG/ML 10 ML VIAL IV SCH ×2 (09:11→21:27)
--- NOTE | 2019-11-09 12:41 | P.PN ---
Subjective Progress Note Date: 11/09/19 This patient is doing poorly. He is a 69-year-old male patient is been hospital post cardiac arrest. The patient is known to have alcoholism, and liver disease secondary to alcoholism/cirrhosis. He is also known to have chronic kidney disease, chronic pancreatitis, hypothyroidism, recurrent UTIs, and previous history of respiratory failure requiring intubation mechanical ventilation. This was attributed to a staphylococcal pneumonia. He also has old lacunar infarcts and his baseline performance and functional status extremely impaired. During this current admission, the patient came in with cardiac arrest. CPR was offered to him for a total of 20 minutes prior to arrival to the hospital and the patient received 3 rounds of epinephrine and he lost his pulse and he was found to be PEA. He arrived pulseless and CPR was continued and there was return of spontaneous circulation ultimately after 20 minutes of resuscitation. He had acute respiratory arrest due to cardiac arrest and the patient required intubation mechanical ventilation and was extubated on 10/31/2019. He is course was Again by shock liver, acute on top of chronic kidney injury where his creatinine is on the rise and the patient is producing diminished amount of urine output. He was extubated and subsequently was placed on a BiPAP for respiratory support. This morning, the patient is pain-free stimulation. Not r esponding to any verbal stimulation. His blood work shows non-anion gap metabolic acidosis with a serum bicarb of 13. BUN is up to 40 now with a creatinine of 5.24. The patient's blood gas show a pH of 7.28 with a pCO2 of 26 and pO2 of 104 and this was done on BiPAP at a pressure of 10/5 cm of water and FiO2 of 40%. He was receiving D5 water at the rate of 50 mL an hour along with some water flushes. He was receiving enteral feeding for nutritional support via an NG tube. Note that his echocardiogram post cardiac arrest with an ejection fraction of around 60% without any significant valvular abnormalities. His chest x-ray from today showing chronic emphysema and some parenchymal fibro tic changes bilaterally left more than right. There is also some bilateral lower lung edema demonstrated. No sedated and change compared to yesterday chest x-ray. Ammonia level is improving. Ammonia level is down to 79 as the patient is receiving Xifaxan. The patient is also on lactulose. He has an FMS system in place. He is also on lactulose. On 11/05/2019 and seeing this patient for a follow-up. The patient is essentially the same. The patient remains unresponsive. The patient's heart is responding to any verbal or painful stimulation. He remains quite encephalopathic and this could be a combination of factors including possibility of hypoxic encephalopathy post cardiac arrest in addition to hepatic/renal encephalopathy as the patient is an liver and kidney failure. On yesterday's evaluation, the patient had a component of non-anion gap metabolic acidosis. He was started on bicarb drip which is still running at a rate of 100 mL an hour. The patient is producing adequate amount of urine output. The patient is also having liquidy stool and the patient is currently on a combination of Xifaxan and lactulose for hepatic encephalopathy. The patient has a fecal management system in place. Meanwhile, the renal function is still impaired and the creatinine is on the rise. On today's evaluation , the patient's serum bicarbonate was up to 16. Creatinine is up to 5.9 with a mean of 52. Glucose is 106. We are still not planning any dialysis and we are considering sending patient to come for care measures once guardianship has been established. Meanwhile, the patient remains BiPAP dependent at the pressure of 10/5 with an FiO2 of 40%. Chest x-ray shows essentially no significant change impaired to yesterday's chest x-ray . The patient has a Zhu catheter in place. The patient has an NG tube in place. The patient is receiving enteral feeding for nutritional support. Lactulose will be discontinued for now. Urine output is normal at 15-20 mL an hour. 11/06/2019, no change in the patient's condition. Neurologically the same. Unresponsive. Barely responsive to painful stimulation. Nonverbal. Opens his eyes occasionally without any stimulation, spontaneously. Remains on a BiPAP at a pressure of 10/5 7 m water and FiO2 of 40%. Chest x-ray findings are essentially unchanged. There is increased infiltration of the lung bases embolus changes in the upper lobes bilaterally. NG tube is in place. Tolerating enteral feeding with vital high protein at the rate of 60 mL an hour. Cardiac rhythm is sinus. Remains on a Infusion rate of 50 mL an hour. Serum bicarb is improving and the patient is also on Lasix 80 mg IV push every 12 hours. Still havingliquidy bowel movements and diarrhea. Urinary was no order of 10-50 mL an hour. Overall fluid balance is -1 L over the past 24 hours. No seizure activity. No significant cardiac arrhythmias. No other significant events over the past 24 hours. As mentioned earlier, we are trying to establish guardianship. Unfortunately the patient remains encephalopathic and unresponsive. This is a multifactorial in nature including the possibility of anoxic encephalopathy post cardiac arrest. 11/07/2019, we haven't done and followed up progress in this patient's condition. He remains unresponsive. A legal guardian has been established. I had a lengthy conversation with the assigned guardian. We discussed his condition. Discussed his poor outcome based on the presence of multisystem organ failure in addition to her cardiac arrest and underlying chronic liver disease and acute on top of chronic kidney injury. In terms of his mentation, there is the possibility of him having a metabolic encephalopathy based on his underlying renal failure and hepatic failure. The legal guardian request another neurology evaluation which we did and I asked Dr. Zapien to reevaluate this patient's neurologic status and function. Meanwhile, after having a lengthy discussion with nephrology and neurology, with a sense was failure to offer this patient to session of hemodialysis and reevaluate his neuro status should there be any improvement. As such vascular surgery surgery was again con sulted. On today's evaluation, the patient's blood work shows a BUN of 62 with a creatinine of 6.2. His hemoglobin is at 6. without any evidence of GI bleed. He is currently on a BiPAP at a pressure of 10/5 cm of water FiO2 40%. The chest x-ray remains unchanged with increased by the pulmonary infiltrates lung bases bilaterally. The patient is still having some loose liquidy diarrhea. He remains on vital high protein 1.2 at the rate of 44 mL an hour. Cardiac rhythm is sinus. No other significant events overnight. White cell count is at 17.2. He is afebrile. He is serum ammonia level is down to 75. On 11/08/2019, the patient is being seen for a follow-up. As mentioned yesterday, the patient was started on hemodialysis yesterday. A temper does cath was inserted in his right femoral vein and he was given an hour of dialysis yesterday which she was unable to tolerate because of hypotension. The procedure was interrupted. The patient this morning was seen again prior to his dialysis. He was quite lethargic unresponsive. At times he would open up his eyes spontaneously. Nevertheless, no reactions, no grimacing to painful stimulation, no response to painful stimuli. He remains on a BiPAP at the same pressure setting of 10/5 cm of waterFiO2 40%. He remains on a bicarb infusion with improvement in serum bicarb level. He is a bit hypothermic and the patient is receiving external warming. Chest x-ray shows no interval change. His serum ammonia level is down to 51. Creatinine is at 4.0 to be on a 58. His liver function tests are within normal limits and albumin level is at 2.0. Glucose is at 123. As such, it was attempted to give the patient another session of hemodialysis. The patient started developing V. tach and he became hypotensive again and the dialysis was interrupted. Nephrology will be informed of these changes. He is having significant third spacing secondary to limb being in bed for prolonged period of time and has also become hypoalbuminemic. He still awaiting his enteral feeding for nutritional support. He had a urine output ord er of 15-20 mL an hour. He remains on IV Lasix. Enterofeeding in the form of vital high protein at the rate of 60 mL an hour. On 11/09/2019, the patient's condition essentially unchanged. As mentioned earlier the patient failed 2 attempts to undergo dialysis and nephrology has no plans to reinitiate dialysis at this point in time. The patient is completely unresponsive. The patient on a BiPAP at a pressure of 10/5 cm of water and FiO2 of 40%. Urine output in order of 20-30 mL an hour. He is on no pressors. He is tolerating his enteral feeding for nutritional support. No seizure activity. He is stooling. Noted the patient had DVT after 10 minutes into dialysis. We will lengthy discussion with the guardian and the patient's CODE STATUS is this patient a DO NOT RESUSCITATE and DO NOT INTUBATE. May ultimately switch him to hospice. No improvement in his overall condition. Renal function continues to be impaired with a BUN of 57 and creatinine 4.9. This electrolytes are within normal limits. Hb stable at 7.5. Objective - Vital Signs Vital signs: Vital Signs Temp 97.0 F L 11/09/19 12:00 Pulse 77 11/09/19 12:00 Resp 14 11/09/19 12:00 BP 116/57 11/09/19 12:00 Pulse Ox 98 11/09/19 12:00 Intake & Output 11/08/19 11/09/19 11/09/19 18:59 06:59 18:59 Intake Total 1209 783 445 Output Total 360 2605 275 Balance 849 -1822 170 Weight 63 kg 66.3 kg Intake: IV 139 33 15 Dextrose 5% in Water 1, 100 000 ml @ 50 mls/hr IV . Q23H ANTHONY with Sodium Bicarb (1 Meq/ml) 150 ml Rx#:[id number] Pressure Bag 0.9 39 33 15 Intake, IV Titration 200 100 Amount Albumin Human 25% 50 ml 100 In Empty Bag 1 bag @ 50 mls/hr IVPB BID ANTHONY Rx#: [id number] Potassium Chloride 20 meq 200 In Water For Injection 1 100ml.bag @ 50 mls/hr IVPB Q2H ANTHONY Rx#: [id number] Tube Feeding 780 660 300 Other 90 90 30 Output: Urine 360 605 275 Stool 2000 Other: Voiding Method Indwelling Catheter Indwelling Catheter ABP, PAP, CO, CI - Last Documented Arterial Blood Pressure 123/48 - Exam GENERAL EXAM: Minimally responsive 69-year-old male patient, extremely debilitated, coming more cachectic, BMI is 20.7, completely unresponsive, at times he opens his eyes spontaneously without any reaction., he is on BiPAP 10/5 and 50% FiO2, NG tube is in place quite pale and chronically ill appearing, wearing a BiPAP mask. HEAD: Normocephalic/atraumatic. EYES: Normal reaction of pupils, equal size. Conjunctiva pink, sclera white. NOSE: Clear with pink turbinates. NG tube is in place to low intermittent suction THROAT: No erythema or exudates. NECK: No masses, no JVD, no thyroid enlargement, no adenopathy. The patient has an NG tube in place at the same time he has a full face mask BiPAP that he is able to tolerate without any major difficulties. CHEST: No chest wall deformity. Symmetrical expansion. LUNGS: Equal air entry with basilar crackles and scattered rhonchi CVS: Regular rate and rhythm, normal S1 and S2, no gallops, no murmurs, no rubs ABDOMEN: Soft, nontender. No hepatosplenomegaly, normal bowel sounds, no guarding or rigidity. EXTREMITIES: No clubbing, no cyanosis, 2+ pulses and upper and lower extremities. Generalized anasarca, swelling, 2+ lower extremity edema, 1+ upper extremity edema, edema involving abdominal wall, and severe scrotal edema MUSCULOSKELETAL: Muscle strength and tone normal. SPINE: No scoliosis or deformity SKIN: No rashes CENTRAL NERVOUS SYSTEM: No focal deficits, tone is normal in all 4 extremities. PSYCHIATRIC: Unresponsive to verbal or painful stimulation. Pupils are equal and reactive to light. No nystagmus or clonus no facial asymmetry. Reflexes are diminished. - Labs CBC & Chem 7: 11/09/19 04:10 11/09/19 04:10 Labs: Abnormal Lab Results - Last 24 Hours (Table) 11/08/19 11/09/19 11/09/19 Range/Units 17:53 00:00 04:10 WBC 16.1 H (3.8-10.6) k/uL RBC 2.33 L (4.30-5.90) m/uL Hgb 7.5 L (13.0-17.5) gm/dL Hct 24.2 L (39.0-53.0) % MCV 103.9 H (80.0-100.0) fL MCHC 30.9 L (31.0-37.0) g/dL RDW 20.5 H (11.5-15.5) % Plt Count 69 L (150-450) k/uL Neutrophils # 12.9 H (1.3-7.7) k/uL BUN (9-20) mg/dL Creatinine (0.66-1.25) mg/dL Glucose (74-99) mg/dL POC Glucose (mg/dL) 116 H 117 H (75-99) mg/dL Alkaline Phosphatase (38-126) U/L Ammonia (<30) umol/L Total Protein (6.3-8.2) g/dL Albumin (3.5-5.0) g/dL 11/09/19 11/09/19 11/09/19 Range/Units 04:10 04:10 06:19 WBC (3.8-10.6) k/uL RBC (4.30-5.90) m/uL Hgb (13.0-17.5) gm/dL Hct (39.0-53.0) % MCV (80.0-100.0) fL MCHC (31.0-37.0) g/dL RDW (11.5-15.5) % Plt Count (150-450) k/uL Neutrophils # (1.3-7.7) k/uL BUN 57 H (9-20) mg/dL Creatinine 4.93 H (0.66-1.25) mg/dL Glucose 118 H (74-99) mg/dL POC Glucose (mg/dL) 132 H (75-99) mg/dL Alkaline Phosphatase 153 H (38-126) U/L Ammonia 49 H (<30) umol/L Total Protein 5.3 L (6.3-8.2) g/dL Albumin 1.9 L (3.5-5.0) g/dL Assessment and Plan Plan: 1 Cardiac arrest with approximate 20 minutes of CPR, for epinephrine and subsequent return of spontaneous circulation. Consider underlying anoxic encephalopathy post cardiac arrest. 2 Acute respiratory arrest secondary to above requiring intubation mechanical ventilatory support, extubated 10/31/2019, the patient currently is BiPAP dependent and the chest x-ray showing bilateral pulmonary changes consistent with COPD and some parenchymal fibrotic changes with tiny left more than right pleural effusions. The patient also has some interstitial edema without any significant change compared to yesterday's chest x-ray. The patient is currently receiving BiPAP for respiratory support and pressure of 10/5 cm of water with an FiO2 of 40%. He seems to be quite BiPAP dependent unable to be weaned at all. 3 Acute hypotension with suspected septic shock requiring norepinephrine, recovered 4 shock liver secondary to above, improved, and the liver function tests have normalized. 5 Acute on chronic renal failure, and the renal function was started on hemodialysis yesterday. That the dialysis session yesterday was complicated by hypotension. Dialysis session for today was complicated by cardiac arrhythmias, and ventricular arrhythmias and hypotension. Both of the sessions were interr upted and stop and the patient was unable to complete a full session. Urine output is minimal at this point in time. He remains on IV Lasix. Nephrology is on the case and there are no plans to repeat his dialysis because of the significant hemodynamic changes in the VT that occurred at a time of the dialysis.6 altered mentation, responsiveness. The ongoing encephalopathy is still active issue for this patient. We have not seen any significant signs of neurologic recovery. Discussed the case with neurology. A repeat neurology evaluation will be done. Meanwhile, the patient is going to be given 2 sessions of hemodialysis and his neuro status is to be reevaluated. He is ammonia level is at 75 at this point and the patient is still on Xifaxan. 7 Coagulopathy secondary to shock liver and chronic liver disease, most recent INR is down to 1.7 8 Chronic pancreatitis 9 History of alcoholism 10 Chronic normocytic anemia 11 Previous history of ventilatory dependent respiratory failure secondary to MSSA pneumonia 12 Chronic dysphagia secondary to vocal cord injury with previous PEG tube placement, the patient is tolerating enteral feeding for nutritional support. The patient is also on a combination of lactulose and Xifaxan. The patient will be taken of the lactulose and the patient is having significant amount of diarrhea. We'll keep the Xifaxan for now. Continue enteral feeding for nutritional support. 13 History of previous GI bleed 14 Cerebral atrophy along with chronic small vessel ischemia 15 underlying gap metabolic acidosis, recovered Plan The prognosis remains extremely poor baseline above-mentioned morbidities. The patient remains unresponsive. Continue the supportive care. CODE STATUS is DNR/DNI. Will communicate again with the legal guardian regarding the possibility of switching this patient to comfort care measures/hospice. No improvement on his condition.
--- NOTE | 2019-11-09 18:29 | P.PN ---
Subjective Progress Note Date: 11/09/19 The patient is seen in neurologic follow-up on November 09, 2019, via teleneurology. There is no one present at the bedside at the time of the evaluation. In reviewing of the chart notes, the patient is reportedly unchanged. Dialysis has been unable to be performed Objective - Vital Signs Vital signs: Vital Signs Temp 97.0 F L 11/09/19 12:00 Pulse 77 11/09/19 12:00 Resp 14 11/09/19 12:00 BP 116/57 11/09/19 12:00 Pulse Ox 98 11/09/19 12:00 Intake & Output 11/08/19 11/09/19 11/09/19 18:59 06:59 18:59 Intake Total 1209 783 445 Output Total 360 2605 275 Balance 849 -1822 170 Weight 63 kg 66.3 kg Intake: IV 139 33 15 Dextrose 5% in Water 1, 100 000 ml @ 50 mls/hr IV . Q23H ANTHONY with Sodium Bicarb (1 Meq/ml) 150 ml Rx#:[id number] Pressure Bag 0.9 39 33 15 Intake, IV Titration 200 100 Amount Albumin Human 25% 50 ml 100 In Empty Bag 1 bag @ 50 mls/hr IVPB BID ANTHONY Rx#: [id number] Potassium Chloride 20 meq 200 In Water For Injection 1 100ml.bag @ 50 mls/hr IVPB Q2H ANTHONY Rx#: [id number] Tube Feeding 780 660 300 Other 90 90 30 Output: Urine 360 605 275 Stool 2000 Other: Voiding Method Indwelling Catheter Indwelling Catheter ABP, PAP, CO, CI - Last Documented Arterial Blood Pressure 123/48 - Exam Gen.: The patient is reclining in the bed. He is on BiPAP. He is in no acute distress. HEENT: Head is atraumatic, normocephalic. Fundus not visualized. There is no scleral icterus. The left eye has debris in it Neurological examination Mental status: The patient opens his eyes to verbal stimulation. He follows no commands. He is nonverbal. Cranial nerves: Pupils are equal and sluggishly reactive. There is no blink to visual threat. Motor: There are no spontaneous movements. Sensation: There is no withdrawal of the upper extremities from noxious stimulation. There is grimace. There is localization to noxious stimulation of the lower extremities. Deep tendon reflexes: 2+/4+ throughout - Labs CBC & Chem 7: 11/09/19 04:10 11/09/19 04:10 Labs: Abnormal Lab Results - Last 24 Hours (Table) 11/08/19 11/09/19 11/09/19 Range/Units 17:53 00:00 04:10 WBC 16.1 H (3.8-10.6) k/uL RBC 2.33 L (4.30-5.90) m/uL Hgb 7.5 L (13.0-17.5) gm/dL Hct 24.2 L (39.0-53.0) % MCV 103.9 H (80.0-100.0) fL MCHC 30.9 L (31.0-37.0) g/dL RDW 20.5 H (11.5-15.5) % Plt Count 69 L (150-450) k/uL Neutrophils # 12.9 H (1.3-7.7) k/uL BUN (9-20) mg/dL Creatinine (0.66-1.25) mg/dL Glucose (74-99) mg/dL POC Glucose (mg/dL) 116 H 117 H (75-99) mg/dL Alkaline Phosphatase (38-126) U/L Ammonia (<30) umol/L Total Protein (6.3-8.2) g/dL Albumin (3.5-5.0) g/dL 11/09/19 11/09/19 11/09/19 Range/Units 04:10 04:10 06:19 WBC (3.8-10.6) k/uL RBC (4.30-5.90) m/uL Hgb (13.0-17.5) gm/dL Hct (39.0-53.0) % MCV (80.0-100.0) fL MCHC (31.0-37.0) g/dL RDW (11.5-15.5) % Plt Count (150-450) k/uL Neutrophils # (1.3-7.7) k/uL BUN 57 H (9-20) mg/dL Creatinine 4.93 H (0.66-1.25) mg/dL Glucose 118 H (74-99) mg/dL POC Glucose (mg/dL) 132 H (75-99) mg/dL Alkaline Phosphatase 153 H (38-126) U/L Ammonia 49 H (<30) umol/L Total Protein 5.3 L (6.3-8.2) g/dL Albumin 1.9 L (3.5-5.0) g/dL Assessment and Plan Assessment: 1. Anoxic encephalopathy-status post cardiac arrest for 20 minutes 2. Multiorgan failure 3. Prognosis poor Plan: 1. Consider hospice placement Time with Patient: Less than 30 (spent 20 minutes with patient via t eleneurology)
[2019-11-09 18:47] LABS: Glucose,Whole Blood 140 mg/dL (75-99)
--- NOTE | 2019-11-09 21:09 | P.PN ---
Progress Note - Text Progress Note Date: 11/09/19 Presenting complaint: Short of breath Interval history: From the records: This is a 69 years old male With multiple medical problems as below. Patient is intubated and unresponsive and could not provide information so it was obtained from staff and medical records, no family at bedside. Patient Presents because the neighbors called 911/AMS 4 patient was dyspneic, and brought to the hospital patient became unresponsive with PEA in ambulance, CPR was in associated, he got 3 samples of epinephrine in the ambulance and 1 other dose of epinephrine in the hospital. His CPR downtown was about 20 minutes Patient also hypoglycemic and hypothermic and hypotensive , blood glucose was 20 h glucose D 50% with partial correction and was placed on D10% effusion, however his sugar jumped to 800 so D10%was stopped and currently glucose in around 300. He was placed on Jarad hugger and Currently he is on Levophed at 0.57 which is high dose showing leukocytosis of 12.9 and 19.7 K, hemoglobin 6.6 corrected to 9.2 after blood transfusion, platelets 46 and 50 5K. INR 4.5 and 3.9. PH was 6.9 and 7. 2. Creatinine 2.6 which are unknown baseline. Lactic acid 8.0 7.0. Elevated liver enzymes with AST 3652 and ALT 472 . Troponin is negative Hemoglobin was 6 and INR was 4 and he got 1 dose of vitamin K and 2 units of blood transfusion Patient got Zithromax and ceftriaxone in the emergency room, patient continued on Zosyn, patient extubated on October 30. Pending hearing for a court-appointed guardian. Dialysis catheter placed on November 06. Failed hemodialysis because of low blood pressure. Today- ICU. Remains lethargic. Sinus rhythm. . [address] Unresponsive[address] FMS remains in place. Make some urine. Review of systems: Unable to obtain Active Medications Albuterol/Ipratropium (Duoneb 0.5 Mg-3 Mg/3 Ml Soln) 3 ml INHALATION RT-Q2H PRN PRN Reason: Shortness Of Breath Or Wheezing Albuterol/Ipratropium (Duoneb 0.5 Mg-3 Mg/3 Ml Soln) 3 ml INHALATION RT-QID [facility] Last Admin: 11/09/19 20:39 Dose: 3 ml Documented by: Darbepoetin Von (Aranesp) 60 mcg SQ Q7D [facility] Last Admin: 11/07/19 14:14 Dose: 60 mcg Documented by: Furosemide (Lasix) 80 mg IV Q12HR [facility] Last Admin: 11/09/19 09:11 Dose: 80 mg Documented by: Albumin Human 50 ml/ IV (Solution) 50 mls @ 50 mls/hr IVPB BID [facility] Stop: 11/09/19 21:59 Last Admin: 11/09/19 09:10 Dose: 50 mls/hr Documented by: Midodrine (Proamatine) 10 mg PO AC-TID [facility] Last Admin: 11/09/19 18:17 Dose: Not Given Documented by: Miscellaneous Information (Potassium Per Protocol) 1 each MISCELLANE DAILY PRN; Protocol PRN Reason: Per Protocol Miscellaneous Information (Magnesium Per Protocol) 1 each MISCELLANE DAILY PRN; Protocol PRN Reason: Per Protocol Naloxone HCl (Narcan) 0.2 mg IV Q2M PRN PRN Reason: Opioid Reversal Pantoprazole Sodium (Protonix) 40 mg IVP DAILY [facility] Last Admin: 11/09/19 09:10 Dose: 40 mg Documented by: Rifaximin (Xifaxan) 550 mg PO BID [facility] Stop: 12/08/19 09:01 Last Admin: 11/09/19 19:45 Dose: 550 mg Documented by: Sodium Bicarbonate (Sodium Bicarbonate Tab) 650 mg PO QID [facility] Last Admin: 11/09/19 19:45 Dose: 650 mg Documented by: On examination: VITAL SIGNS: 97, 77, 14, 116/57, 98% on BiPAP GENERAL APPEARANCE: Laying in bed with the BiPAP, barely arousable. HEENT: Normal external appearance of nose and ear. Oral cavity dry, NG tube, BiPAP EYES: Pupils equal. Conjunctiva pale. NECK: JVD not raised. Mass not palpable. RESPIRATORY: Respiratory effort increased, decreased breath sounds,. Expiratory coarse crackles CARDIOVASCULAR: First and second sounds normal. Significant edema ABDOMEN: Soft. Liver and spleen not palpable. No tenderness. No mass palpable. Significant scrotal edema DERMATOLOGICAL: Stage II decubital ulcers NEUROLOGICAL: Minimally responsive PSYCHIATRY: Unable to assess INVESTIGATIONS, reviewed in the clinical context: White count 16.1 hemoglobin 7.5 platelets 65 potassium 3.8 creatinine 4.93 Accu-Cheks 132, 140 Chicks x-ray shows coarse interstitial Previous testing Chest [id number]-qaf-bvazadr infiltrate Computed tomography scan of the chest-bibasilar airspace disease, emphysema changes, chronic calcific pancreatitis, Computed tomography scan of the brain-old lacunar infarct in the jung radiata on the right, chronic changes EEG-suggestive of generalized cerebral dysfunction Assessment: -Status post cardiac arrest witnessed-downtime of about 12 minutes. -Chronic kidney disease stage III from nephrosclerosis -Acute kidney injury possibly ATN- worsening, progress to end-stage kidney disease. 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 -acute hypoxic respiratory failure, on ventilator -extubated October 30 -Hypotensive and/or septic shock requiring pressor support-now on midodrine -Significant edema due to third spacing from severe hypoalbuminemia -Stage II decubitus ulcer -Metabolic encephalopathy-worsening not improving -Court-appointed legal guardian. -Severe metabolic acidosis, from renal failure -DO NOT RESUSCITATE Plan: Patient condition is too poorly. Has failed hemanalysis. Getting [address] decide comfort care measures. Meantime continue current medication to the plan.
[2019-11-09 23:53] LABS: Glucose,Whole Blood 136 mg/dL (75-99)
[2019-11-10 05:02] LABS: Anisocytosis Moderate; Basophils # (A) 0.1 k/uL (0-0.2); Basophils % (A) 1 %; Eosinophils # (A) 0.3 k/uL (0-0.7); Eosinophils % (A) 2 %; HCT 20.6 % (39.0-53.0); Hypochromasia Moderate; Lymphocytes # (A) 1.8 k/uL (1.0-4.8); Lymphocytes % (A) 13 %; MCH 32.4 pg (25.0-35.0); MCHC 30.6 g/dL (31.0-37.0); Mean Platelet Volume 10.1; Monocytes # (A) 0.5 k/uL (0-1.0); Monocytes % (A) 4 %; Neutrophils # (A) 10.7 k/uL (1.3-7.7); Neutrophils % (A) 78 %; RBC 1.95 m/uL (4.30-5.90); RDW 21.3 % (11.5-15.5); WBC 13.7 k/uL (3.8-10.6)
[2019-11-10 05:08] LABS: Platelet Count 92 k/uL (150-450)
[2019-11-10 05:09] LABS: HGB 6.3 gm/dL (13.0-17.5)
[2019-11-10 05:10] LABS: Macrocytosis Marked
[2019-11-10 05:20] LABS: Albumin 2.3 g/dL (3.5-5.0); Calcium 9.4 mg/dL (8.4-10.2); Potassium 3.8 mmol/L (3.5-5.1); Total Bilirubin 0.8 mg/dL (0.2-1.3); Total Protein 5.5 g/dL (6.3-8.2)
[2019-11-10 06:17] LABS: Glucose,Whole Blood 140 mg/dL (75-99)
[2019-11-10] MEDS: IPRATROPIUM-ALBUTEROL 3 ML NEB INHALATION SCH (08:13)
--- NOTE | 2019-11-10 08:16 | P.PN ---
Subjective Patient is seen in follow-up for acute kidney injury on chronic kidney disease. Dialysis was attempted twice and had to be stopped within 10 minutes due to arrhythmia and hypotension. Patient is now DO NOT RESUSCITATE. Currently on high flow nasal cannula. No improvement in his mentation. Receiving tube feeding. Urine output about 50 mL an hour. Hemoglobin 6.3 this morning and is currently receiving blood transfusion. Blood pressure stable. Vital signs are stable. General: Appears lethargic. Nonresponsive. HEENT: Head exam is unremarkable. Neck is without jugular venous distension. NG tube noted. LUNGS: Breath sounds decreased. Scattered rhonchi. HEART: Rate and Rhythm are regular. ABDOMEN: Soft, nontender. EXTREMITITES: 2+ edema. Scrotal edema noted. Objective - Vital Signs Vital signs: Vital Signs Temp 97.3 F L 11/10/19 08:06 Pulse 92 11/10/19 08:06 Resp 22 11/10/19 08:06 BP 132/49 11/10/19 08:06 Pulse Ox 93 L 11/10/19 08:06 Intake & Output 11/09/19 11/10/19 11/10/19 18:59 06:59 18:59 Intake Total 946 1219 403 Output Total 760 2065 75 Balance 186 -846 328 Weight 65.2 kg Intake: IV 36 39 3 Pressure Bag 0.9 36 39 3 Intake, IV Titration 100 Amount Albumin Human 25% 50 ml 100 In Empty Bag 1 bag @ 50 mls/hr IVPB BID [facility] Rx#: [id number] Tube Feeding 720 780 60 Blood Product 310 310 Rc As-1 Unit 0 310 [id number] Other 90 90 30 Output: Urine 760 565 75 Stool 1500 Other: Voiding Method Indwelling Catheter Indwelling Catheter ABP, PAP, CO, CI - Last Documented Arterial Blood Pressure 128/51 - Labs CBC & Chem 7: 11/10/19 04:41 11/10/19 04:41 Labs: Abnormal Lab Results - Last 24 Hours (Table) 11/07/19 11/09/19 11/09/19 Range/Units 06:00 18:45 23:50 WBC (3.8-10.6) k/uL RBC (4.30-5.90) m/uL Hgb (13.0-17.5) gm/dL Hct (39.0-53.0) % MCV (80.0-100.0) fL MCHC (31.0-37.0) g/dL RDW (11.5-15.5) % Plt Count (150-450) k/uL Neutrophils # (1.3-7.7) k/uL Macrocytosis BUN (9-20) mg/dL Creatinine (0.66-1.25) mg/dL Glucose (74-99) mg/dL POC Glucose (mg/dL) 140 H 136 H (75-99) mg/dL Alkaline Phosphatase (38-126) U/L Ammonia (<30) umol/L Total Protein (6.3-8.2) g/dL Albumin (3.5-5.0) g/dL Crossmatch See Detail 11/10/19 11/10/19 11/10/19 Range/Units 04:41 04:41 04:41 WBC 13.7 H (3.8-10.6) k/uL RBC 1.95 L (4.30-5.90) m/uL Hgb 6.3 L* (13.0-17.5) gm/dL Hct 20.6 L (39.0-53.0) % MCV 106.0 H (80.0-100.0) fL MCHC 30.6 L (31.0-37.0) g/dL RDW 21.3 H (11.5-15.5) % Plt Count 92 L (150-450) k/uL Neutrophils # 10.7 H (1.3-7.7) k/uL Macrocytosis Marked A BUN 65 H (9-20) mg/dL Creatinine 4.83 H (0.66-1.25) mg/dL Glucose 110 H (74-99) mg/dL POC Glucose (mg/dL) (75-99) mg/dL Alkaline Phosphatase 136 H (38-126) U/L Ammonia 53 H (<30) umol/L Total Protein 5.5 L (6.3-8.2) g/dL Albumin 2.3 L (3.5-5.0) g/dL Crossmatch 11/10/19 Range/Units 06:15 WBC (3.8-10.6) k/uL RBC (4.30-5.90) m/uL Hgb (13.0-17.5) gm/dL Hct (39.0-53.0) % MCV (80.0-100.0) fL MCHC (31.0-37.0) g/dL RDW (11.5-15.5) % Plt Count (150-450) k/uL Neutrophils # (1.3-7.7) k/uL Macrocytosis BUN (9-20) mg/dL Creatinine (0.66-1.25) mg/dL Glucose (74-99) mg/dL POC Glucose (mg/dL) 140 H (75-99) mg/dL Alkaline Phosphatase (38-126) U/L Ammonia (<30) umol/L Total Protein (6.3-8.2) g/dL Albumin (3.5-5.0) g/dL Crossmatch Assessment and Plan Plan: Assessment: 1. Acute kidney injury secondary to ATN secondary to cardiac arrest. Dialysis attempted twice in November 06 and November 07 but not able to tolerate due to arrhythmias and hypotension. 2. Chronic kidney disease stage III Baseline creatinine 1.8-2 secondary to nephrosclerosis. 3. Status post cardiac arrest. 4. Hypokalemia from poor intake. Stable. 5. Metabolic acidosis secondary to acute kidney injury. Stable. Maintained on oral sodium bicarbonate. 6. Volume overload. Partially due to severe hypoalbuminemia causing third spacing. 7. Anemia of chronic kidney disease maintained on Aranesp. Hemoglobin 6.3. Receiving 2 units of packed red cells today. Plan: Maintain IV Lasix 80 mg twice daily. Patient unable to tolerate renal replacement therapy. Prognosis guarded. Now DNR.
[2019-11-10] MEDS: MIDODRINE 5 MG TAB PO SCH (08:25)
[2019-11-10] MEDS ORDERED: LORazepam 2 MG/ML INJ IV PRN (08:43)
[2019-11-10] MEDS ORDERED: MORPHINE SULFATE 2 MG/ML SYRINGE IVP ONE (08:43)
[2019-11-10] MEDS ORDERED: ATROPINE OPHTH SOLN 1% 5ML BTL SUBLINGUAL PRN (08:43)
[2019-11-10] MEDS ORDERED: MORPHINE SULFATE (100 MG/2 ML) 100 MG in SODIUM CHLORIDE 0.9% 100 ML IV SCH (08:45)
[2019-11-10 08:58] VITALS: BP 117/43; PULSE 94; RESP 21; TEMP 36.3
[2019-11-10] MEDS: FUROSEMIDE 10 MG/ML 10 ML VIAL IV SCH (10:37)
--- NOTE | 2019-11-10 12:16 | P.PN ---
Subjective Progress Note Date: 11/10/19 11/10/2019, the patient is doing poorly. He has developed some skin maceration over the nose bridge related to prolonged BiPAP use. He was placed on high flow oxygen yesterday through a nasal cannula. On today's evaluation, has excess amount of rest or secretions and the patient is a very weak cough and is unable to maintain his airways. He is unresponsive. He is quite lethargic. No response to verbal stimulation. No response to painful stimulation. Labs were noted. Urine output is diminished. Renal function continues to be impaired. Contacted the legal guardian and switch this patient to hospice care. Currently is on morphine running at 1 mg an hour infusion and is also receiving Ativan on a when necessary basis. Scopolamine patch will be also added for respiratory secretions. He is being suctioned frequently for comfort reasons. Objective - Vital Signs Vital signs: Vital Signs Temp 36.3 F L 11/10/19 08:58 Pulse 94 11/10/19 08:58 Resp 21 11/10/19 08:58 BP 117/43 11/10/19 08:58 Pulse Ox 78 L 11/10/19 08:58 Intake & Output 11/09/19 11/10/19 11/10/19 18:59 06:59 18:59 Intake Total 946 1219 466.961 Output Total 760 2065 75 Balance 186 -846 391.961 Weight 65.2 kg Intake: IV 36 39 3 Pressure Bag 0.9 36 39 3 Intake, IV Titration 100 3.961 Amount Albumin Human 25% 50 ml 100 In Empty Bag 1 bag @ 50 mls/hr IVPB BID [facility] Rx#: [id number] Morphine Sulfate (100 mg/ 3.961 2 ml) 100 mg In Sodium Chloride 0.9% 100 ml @ 1 MG/HR 1.02 mls/hr IV . Q24H [facility] Rx#:[id number] Tube Feeding 720 780 60 Blood Product 310 370 Rc As-1 Unit 60 [id number] Rc As-1 Unit 0 310 [id number] Other 90 90 30 Output: Urine 760 565 75 Stool 1500 Other: Voiding Method Indwelling Catheter Indwelling Catheter ABP, PAP, CO, CI - Last Documented Arterial Blood Pressure 128/51 - Exam GENERAL EXAM: Minimally responsive 69-year-old male patient, extremely debilitated, coming more cachectic, BMI is 20.7, completely unresponsive, currently on 2 L of oxygen by nasal cannula. The skin over the nose bridge is quite macerated related to prolonged BiPAP use. He is having some noisy breat constantine and deep posterior airway suctioning was being done and some loose secretions are being suctioned out. HEAD: Normocephalic/atraumatic. EYES: Normal reaction of pupils, equal size. Conjunctiva pink, sclera white. NOSE: Clear with pink turbinates. NG tube is in place to low intermittent suction THROAT: No erythema or exudates. NECK: No masses, no JVD, no thyroid enlargement, no adenopathy. The patient has an NG tube in place at the same time he has a full face mask BiPAP that he is able to tolerate without any major difficulties. CHEST: No chest wall deformity. Symmetrical expansion. LUNGS: Equal air entry with basilar crackles and scattered rhonchi, and the patient has rhonchi heard throughout the lung his bilaterally. CVS: Regular rate and rhythm, normal S1 and S2, no gallops, no murmurs, no rubs ABDOMEN: Soft, nontender. No hepatosplenomegaly, normal bowel sounds, no guarding or rigidity. EXTREMITIES: No clubbing, no cyanosis, 2+ pulses and upper and lower extremities. Generalized anasarca, swelling, 2+ lower extremity edema, 1+ upper extremity edema, edema involving abdominal wall, and severe scrotal edema MUSCULOSKELETAL: Muscle strength and tone normal. SPINE: No scoliosis or deformity SKIN: No rashes CENTRAL NERVOUS SYSTEM: No focal deficits, tone is normal in all 4 extremities. PSYCHIATRIC: Unresponsive to verbal or painful stimulation. Pupils are equal and reactive to light. No nystagmus or clonus no facial asymmetry. Reflexes are diminished. - Labs CBC & Chem 7: 11/10/19 04:41 11/10/19 04:41 Labs: Abnormal Lab Results - Last 24 Hours (Table) 11/07/19 11/09/19 11/09/19 Range/Units 06:00 18:45 23:50 WBC (3.8-10.6) k/uL RBC (4.30-5.90) m/uL Hgb (13.0-17.5) gm/dL Hct (39.0-53.0) % MCV (80.0-100.0) fL MCHC (31.0-37.0) g/dL RDW (11.5-15.5) % Plt Count (150-450) k/uL Neutrophils # (1.3-7.7) k/uL Macrocytosis BUN (9-20) mg/dL Creatinine (0.66-1.25) mg/dL Glucose (74-99) mg/dL POC Glucose (mg/dL) 140 H 136 H (75-99) mg/dL Alkaline Phosphatase (38-126) U/L Ammonia (<30) umol/L Total Protein (6.3-8.2) g/dL Albumin (3.5-5.0) g/dL Crossmatch See Detail 11/10/19 11/10/19 11/10/19 Range/Units 04:41 04:41 04:41 WBC 13.7 H (3.8-10.6) k/uL RBC 1.95 L (4.30-5.90) m/uL Hgb 6.3 L* (13.0-17.5) gm/dL Hct 20.6 L (39.0-53.0) % MCV 106.0 H (80.0-100.0) fL MCHC 30.6 L (31.0-37.0) g/dL RDW 21.3 H (11.5-15.5) % Plt Count 92 L (150-450) k/uL Neutrophils # 10.7 H (1.3-7.7) k/uL Macrocytosis Marked A BUN 65 H (9-20) mg/dL Creatinine 4.83 H (0.66-1.25) mg/dL Glucose 110 H (74-99) mg/dL POC Glucose (mg/dL) (75-99) mg/dL Alkaline Phosphatase 136 H (38-126) U/L Ammonia 53 H (<30) umol/L Total Protein 5.5 L (6.3-8.2) g/dL Albumin 2.3 L (3.5-5.0) g/dL Crossmatch 11/10/19 Range/Units 06:15 WBC (3.8-10.6) k/uL RBC (4.30-5.90) m/uL Hgb (13.0-17.5) gm/dL Hct (39.0-53.0) % MCV (80.0-100.0) fL MCHC (31.0-37.0) g/dL RDW (11.5-15.5) % Plt Count (150-450) k/uL Neutrophils # (1.3-7.7) k/uL Macrocytosis BUN (9-20) mg/dL Creatinine (0.66-1.25) mg/dL Glucose (74-99) mg/dL POC Glucose (mg/dL) 140 H (75-99) mg/dL Alkaline Phosphatase (38-126) U/L Ammonia (<30) umol/L Total Protein (6.3-8.2) g/dL Albumin (3.5-5.0) g/dL Crossmatch Assessment and Plan Plan: 1 Cardiac arrest with approximate 20 minutes of CPR, for epinephrine and subsequent return of spontaneous circulation. Consider underlying anoxic encephalopathy post cardiac arrest. 2 Acute respiratory arrest secondary to above requiring intubation mechanical ventilatory support, extubated 10/31/2019, the patient was on BiPAP throughout the past week and currently is on high flow oxygen 10 L per minute nasal cannula. Weak cough. Unable to clear the secretions. 3 Acute hypotension with suspected septic shock requiring norepinephrine, recovered 4 shock liver secondary to above, improved, and the liver function tests have normalized. 5 Acute on chronic renal failure, and the renal function was started on hemodialysis yesterday. That the dialysis session yesterday was complicated by hypotension. Dialysis session for today was complicated by cardiac arrhythmias, and ventricular arrhythmias and hypotension. Both of the sessions were interrupted and stop and the patient was unable to complete a full session. Urine output is minimal at this point in time. He remains on IV Lasix. Nephrology is on the case and there are no plans to repeat his dialysis because of the significant hemodynamic changes in the VT that occurred at a time of the dialysis.6 altered mentation, responsiveness. The ongoing encephalopathy is still active issue for this patient. We have not seen any significant signs of neurologic recovery. Discussed the case with neurology. A repeat neurology evaluation will be done. Meanwhile, the patient is going to be given 2 sessions of hemodialysis and his neuro status is to be reevaluated. He is ammonia level is at 75 at this point and the patient is still on Xifaxan. 7 Coagulopathy secondary to shock liver and chronic liver disease, most recent INR is down to 1.7 8 Chronic pancreatitis 9 History of alcoholism 10 Chronic normocytic anemia 11 Previous history of ventilatory dependent respiratory failure secondary to MSSA pneumonia 12 Chronic dysphagia secondary to vocal cord injury with previous PEG tube placement, the patient is tolerating enteral feeding for nutritional support. The patient is also on a combination of lactulose and Xifaxan. The patient will be taken of the lactulose and the patient is having significant amount of diarrhea. We'll keep the Xifaxan for now. Continue enteral feeding for nutritional support. 13 History of previous GI bleed 14 Cerebral atrophy along with chronic small vessel ischemia 15 underlying gap metabolic acidosis, recovered Plan Very poor prognosis. DNR/DNI CODE STATUS. Proceed with hospice.
[2019-11-10 12:41] VITALS: BMI 21.2
--- NOTE | 2019-11-10 14:15 | XR ---
EXAMINATION TYPE: XR chest 1V portable DATE OF EXAM: 11/10/2019 CLINICAL HISTORY: CHF TECHNIQUE: Semiupright portable view of the chest obtained COMPARISON: 11/09/2019 chest radiograph FINDINGS: Enteric tube distal tip and side-port overlie the stomach. Right-sided internal jugular ce ntral venous catheter overlies the superior vena cava. Cervical spine fixation hardware. Emphysematou s changes with interstitial coarsening. Bibasilar airspace opacities appear similar to 11/09/2019 tariq rison. Mildly increased size of small right pleural effusion. No pneumothorax. Chronic deformity of t he left humerus. IMPRESSION: 1. Bibasilar airspace opacities not significantly changed versus 11/09/2019. 2. Mildly increased small right pleural effusion.
--- NOTE | 2019-11-10 18:30 | P.DS ---
Providers Date of admission: 10/27/19 12:14 Expected date of discharge: 11/10/19 Attending physician: John Elliott Consults: 10/27/19 12:14 Consult Physician Stat Consulting Provider: [facility] Consult Reason/Comments: CPA Do you want consulting provider notified?: Yes Consult Physician Stat Consulting Provider: Luiz Singh Consult Reason/Comments: CPA, AVDRF Do you want consulting provider notified?: Yes Consult Physician Stat Consulting Provider: Shy Christianson Consult Reason/Comments: transaminitis, liver disease hx Do you want consulting provider notified?: Yes 10/27/19 19:25 Consult Physician Routine Consulting Provider: Makayla Tyler Consult Reason/Comments: anoxic brain injury Do you want consulting provider notified?: Yes 10/30/19 11:49 Consult Physician Routine Consulting Provider: Ilir Keating Consult Reason/Comments: GFR 19, need OK for PICC placement Do you want consulting provider notified?: Yes 11/01/19 17:00 Consult Physician Stat Consulting Provider: Neo Mariscal Consult Reason/Comments: HD Cath placement Do you want consulting provider notified?: Yes Primary care physician: [facility] Course: Presenting complaint: Short of breath Interval history: From the records: This is a 69 years old male With multiple medical problems as below. Patient is intubated and unresponsive and could not provide information so it was obtained from staff and medical records, no family at bedside. Patient Presents because the neighbors called 911/AMS 4 patient was dyspneic, and brought to the hospital patient became unresponsive with PEA in ambulance, CPR was in associated, he got 3 samples of epinephrine in the ambulance and 1 other dose of epinephrine in the hospital. His CPR downtown was about 20 minutes Patient also hypoglycemic and hypothermic and hypotensive , blood glucose was 20 h glucose D 50% with partial correction and was placed on D10% effusion, however his sugar jumped to 800 so D10%was stopped and currently glucose in around 300. He was placed on Jarad hugger and Currently he is on Levophed at 0.57 which is high dose showing leukocytosis of 12.9 and 19.7 K, hemoglobin 6.6 corrected to 9.2 after blood transfusion, platelets 46 and 50 5K. INR 4.5 and 3.9. PH was 6.9 and 7.2. Creatinine 2.6 which are unknown baseline. Lactic acid 8.0 7.0. Elevated liver enzymes with AST 3652 and ALT 472 . Troponin is negative Hemoglobin was 6 and INR was 4 and he got 1 dose of vitamin K and 2 units of blood transfusion Patient got Zithromax and ceftriaxone in the emergency room, patient continued on Zosyn, patient extubated on October 30. Pending hearing for a court-appointed guardian. Dialysis catheter placed on November 06. Failed hemodialysis because of low blood pressure. Today- ICU. Dr. Medel called the legal guardian today. Patient is made comfort care. On morphine drip. Rattling in the chest. Some suction carried out. Patient unresponsive. Review of systems: Unable to obtain Active Medications Albuterol/Ipratropium (Duoneb 0.5 Mg-3 Mg/3 Ml Soln) 3 ml INHALATION RT-Q2H PRN PRN Reason: Shortness Of Breath Or Wheezing Atropine Sulfate (Isopto Atropine 1% 5ml) 2 drops SUBLINGUAL Q4HR PRN PRN Reason: Excess Secretions Morphine Sulfate 100 mg/ (Sodium Chloride) 102 mls @ 1.02 mls/hr IV .Q24H [facility]; Protocol Last Titration: 11/10/19 10:38 Dose: 4 mg/hr, 4.08 mls/hr Documented by: Lorazepam (Ativan) 1 mg IV Q4HR PRN PRN Reason: Anxiety Naloxone HCl (Narcan) 0.2 mg IV Q2M PRN PRN Reason: Opioid Reversal On examination: VITAL SIGNS: 94, 21, 117/43, 78% GENERAL APPEARANCE: Laying in bed with nasal cannula, unresponsive. HEENT: Normal external appearance of nose and ear. Oral cavity dry, EYES: Pupils equal. Conjunctiva pale. NECK: JVD not raised. Mass not palpable. RESPIRATORY: Respiratory effort increased, decreased breath sounds,. Audible crackles CARDIOVASCULAR: First and second sounds normal. Significant edema ABDOMEN: Soft. Liver and spleen not palpable. No tenderness. No mass palpable. Significant scrotal edema DERMATOLOGICAL: Stage II decubital ulcers NEUROLOGICAL: Minimally responsive PSYCHIATRY: Unable to assess INVESTIGATIONS, reviewed in the clinical context: White count 13.7 hemoglobin 6.3 potassium 3.8 creatinine 4.83 Accu-Cheks 132, 140 Chicks x-ray shows coarse interstitial Previous testing Chest [id number] infiltrate Computed tomography scan of the chest-bibasilar airspace disease, emphysema changes, chronic calcific pancreatitis, Computed tomography scan of the brain-old lacunar infarct in the jung radiata on the right, chronic changes EEG-suggestive of generalized cerebral dysfunction Assessment: -Status post cardiac arrest witnessed-downtime of about 12 minutes. -Chronic kidney disease stage III from nephrosclerosis -Acute kidney injury possibly ATN- worsening, progress to end-stage kidney disease. 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 -acute hypoxic respiratory failure, on ventilator -extubated October 30 -Hypotensive and/or septic shock requiring pressor support-now on midodrine -Significant edema due to third spacing from severe hypoalbuminemia -Stage II decubitus ulcer -Metabolic encephalopathy-worsening not improving -Court-appointed legal guardian. -Severe metabolic acidosis, from renal failure -DO NOT RESUSCITATE Plan: Patient made comfort care. On morphine drip. Oxygen for comfort measures. Patient Condition at Discharge: Poor Plan - Discharge Summary Discharge Rx Participant: No New Discharge Prescriptions: No Action Levothyroxine Sodium [Synthroid] 25 mcg PO DAILY amLODIPine [Norvasc] 5 mg PO DAILY Sodium Bicarbonate 650 mg PO Q8H Epoetin Von-Epbx [Retacrit] 4,000 units SQ Q7D Escitalopram [Lexapro] 10 mg PO DAILY Gabapentin [Neurontin] 400 mg PO HS HYDROcodone/APAP 10-325MG [Perry 10-325] 1 tab PO Q4HR PRN PRN Reason: Pain Ipratropium-Albuterol Nebulize [Duoneb 0.5 mg-3 mg/3 ml Soln] 3 ml INHALATION RT-QID Metoprolol Tartrate [Lopressor] 75 mg PO BID Omeprazole [PriLOSEC] 20 mg PO BID Discharge Medication List Levothyroxine Sodium [Synthroid] 25 mcg PO DAILY 10/19/18 [History] Sodium Bicarbonate 650 mg PO Q8H 06/18/19 [History] amLODIPine [Norvasc] 5 mg PO DAILY 06/18/19 [History] Epoetin Von-Epbx [Retacrit] 4,000 units SQ Q7D 10/27/19 [History] Escitalopram [Lexapro] 10 mg PO DAILY 10/27/19 [History] Gabapentin [Neurontin] 400 mg PO HS 10/27/19 [History] HYDROcodone/APAP 10-325MG [Perry 10-325] 1 tab PO Q4HR PRN 10/27/19 [History] Ipratropium-Albuterol Nebulize [Duoneb 0.5 mg-3 mg/3 ml Soln] 3 ml INHALATION RT-QID 10/27/19 [History] Metoprolol Tartrate [Lopressor] 75 mg PO BID 10/27/19 [History] Omeprazole [PriLOSEC] 20 mg PO BID 10/27/19 [History] Follow up Appointment(s)/Referral(s): Obed Smiht DO [Primary Care Provider] - 1-2 days
--- NOTE | 2019-11-11 22:27 | P.PN ---
Progress Note - Text Progress Note Date: 11/10/19 Presenting complaint: Short of breath Interval history: From the records: This is a 69 years old male With multiple medical problems as below. Patient is intubated and unresponsive and could not provide information so it was obtained from staff and medical records, no family at bedside. Patient Presents because the neighbors called 911/AMS 4 patient was dyspneic, and brought to the hospital patient became unresponsive with PEA in ambulance, CPR was in associated, he got 3 samples of epinephrine in the ambulance and 1 other dose of epinephrine in the hospital. His CPR downtown was about 20 minutes Patient also hypoglycemic and hypothermic and hypotensive , blood glucose was 20 h glucose D 50% with partial correction and was placed on D10% effusion, however his sugar jumped to 800 so D10%was stopped and currently glucose in around 300. He was placed on Jarad hugger and Currently he is on Levophed at 0.57 which is high dose showing leukocytosis of 12.9 and 19.7 K, hemoglobin 6.6 corrected to 9.2 after blood transfusion, platelets 46 and 50 5K. INR 4.5 and 3.9. PH was 6.9 and 7. 2. Creatinine 2.6 which are unknown baseline. Lactic acid 8.0 7.0. Elevated liver enzymes with AST 3652 and ALT 472 . Troponin is negative Hemoglobin was 6 and INR was 4 and he got 1 dose of vitamin K and 2 units of blood transfusion Patient got Zithromax and ceftriaxone in the emergency room, patient continued on Zosyn, patient extubated on October 30. Pending hearing for a court-appointed guardian. Dialysis catheter placed on November 06. Failed hemodialysis because of low blood pressure. Today- ICU. Dr. Medel called the legal guardian today. Patient is made comfort care. On morphine drip. Rattling in the chest. Some suction carried out. Patient unresponsive. Review of systems: Unable to obtain Active Medications Albuterol/Ipratropium (Duoneb 0.5 Mg-3 Mg/3 Ml Soln) 3 ml INHALATION RT-Q2H PRN PRN Reason: Shortness Of Breath Or Wheezing Atropine Sulfate (Isopto Atropine 1% 5ml) 2 drops SUBLINGUAL Q4HR PRN PRN Reason: Excess Secretions Morphine Sulfate 100 mg/ (Sodium Chloride) 102 mls @ 1.02 mls/hr IV .Q24H [facility]; Protocol Last Titration: 11/10/19 10:38 Dose: 4 mg/hr, 4.08 mls/hr Documented by: Lorazepam (Ativan) 1 mg IV Q4HR PRN PRN Reason: Anxiety Naloxone HCl (Narcan) 0.2 mg IV Q2M PRN PRN Reason: Opioid Reversal On examination: VITAL SIGNS: 94, 21, 117/43, 78% GENERAL APPEARANCE: Laying in bed with nasal cannula, unresponsive. HEENT: Normal external appearance of nose and ear. Oral cavity dry, EYES: Pupils equal. Conjunctiva pale. NECK: JVD not raised. Mass not palpable. RESPIRATORY: Respiratory effort increased, decreased breath sounds,. Audible crackles CARDIOVASCULAR: First and second sounds normal. Significant edema ABDOMEN: Soft. Liver and spleen not palpable. No tenderness. No mass palpable. Significant scrotal edema DERMATOLOGICAL: Stage II decubital ulcers NEUROLOGICAL: Minimally responsive PSYCHIATRY: Unable to assess INVESTIGATIONS, reviewed in the clinical context: White count 13.7 hemoglobin 6.3 potassium 3.8 creatinine 4.83 Accu-Cheks 132, 140 Chicks x-ray shows coarse interstitial Previous testing Chest [id number]-[id number] infiltrate Computed tomography scan of the chest-bibasilar airspace disease, emphysema changes, chronic calcific pancreatitis, Computed tomography scan of the brain-old lacunar infarct in the jung radiata on the right, chronic changes EEG-suggestive of generalized cerebral dysfunction Assessment: -Status post cardiac arrest witnessed-downtime of about 12 minutes. -Chronic kidney disease stage III from nephrosclerosis -Acute kidney injury possibly ATN- worsening, progress to end-stage kidney disease. 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 -acute hypoxic respiratory failure, on ventilator -extubated October 30 -Hypotensive and/or septic shock requiring pressor support-now on midodrine -Significant edema due to third spacing from severe hypoalbuminemia -Stage II decubitus ulcer -Metabolic encephalopathy-worsening not improving -Court-appointed legal guardian. -Severe metabolic acidosis, from renal failure -DO NOT RESUSCITATE Plan: Patient made comfort care. On morphine drip. Oxygen for comfort measures.
--- NOTE | 2019-11-11 22:29 | P.DS ---
Providers Date of admission: 10/27/19 12:14 Expected date of discharge: 11/10/19 Attending physician: John Elliott Consults: 10/27/19 12:14 Consult Physician Stat Consulting Provider: [facility] Consult Reason/Comments: CPA Do you want consulting provider notified?: Yes Consult Physician Stat Consulting Provider: Luiz Singh Consult Reason/Comments: CPA, AVDRF Do you want consulting provider notified?: Yes Consult Physician Stat Consulting Provider: Shy Christianson Consult Reason/Comments: transaminitis, liver disease hx Do you want consulting provider notified?: Yes 10/27/19 19:25 Consult Physician Routine Consulting Provider: Makayla Tyler Consult Reason/Comments: anoxic brain injury Do you want consulting provider notified?: Yes 10/30/19 11:49 Consult Physician Routine Consulting Provider: Ilir Keating Consult Reason/Comments: GFR 19, need OK for PICC placement Do you want consulting provider notified?: Yes 11/01/19 17:00 Consult Physician Stat Consulting Provider: Neo Mariscal Consult Reason/Comments: HD Cath placement Do you want consulting provider notified?: Yes Primary care physician: [facility] Course: Presenting complaint: Short of breath Interval history: From the records: This is a 69 years old male With multiple medical problems as below. Patient is intubated and unresponsive and could not provide information so it was obtained from staff and medical records, no family at bedside. Patient Presents because the neighbors called 911/AMS 4 patient was dyspneic, and brought to the hospital patient became unresponsive with PEA in ambulance, CPR was in associated, he got 3 samples of epinephrine in the ambulance and 1 other dose of epinephrine in the hospital. His CPR downtown was about 20 minutes Patient also hypoglycemic and hypothermic and hypotensive , blood glucose was 20 h glucose D 50% with partial correction and was placed on D10% effusion, however his sugar jumped to 800 so D10%was stopped and currently glucose in around 300. He was placed on Jarad hugger and Currently he is on Levophed at 0.57 which is high dose showing leukocytosis of 12.9 and 19.7 K, hemoglobin 6.6 corrected to 9.2 after blood transfusion, platelets 46 and 50 5K. INR 4.5 and 3.9. PH was 6.9 and 7.2. Creatinine 2.6 which are unknown baseline. Lactic acid 8.0 7.0. Elevated liver enzymes with AST 3652 and ALT 472 . Troponin is negative Hemoglobin was 6 and INR was 4 and he got 1 dose of vitamin K and 2 units of blood transfusion Patient got Zithromax and ceftriaxone in the emergency room, patient continued on Zosyn, patient extubated on October 30. Pending hearing for a court-appointed guardian. Dialysis catheter placed on November 06. Failed hemodialysis because of low blood pressure. Today- ICU. Dr. Medel called the legal guardian today. Patient is made comfort care. On morphine drip.-Patient . INVESTIGATIONS, reviewed in the clinical context: White count 13.7 hemoglobin 6.3 potassium 3.8 creatinine 4.83 Accu-Cheks 132, 140 Chicks x-ray shows coarse interstitial Previous testing Chest [id number]-pbg-hqzpzqm infiltrate Computed tomography scan of the chest-bibasilar airspace disease, emphysema changes, chronic calcific pancreatitis, Computed tomography scan of the brain-old lacunar infarct in the jung radiata on the right, chronic changes EEG-suggestive of generalized cerebral dysfunction Cause of : Pneumonia Assessment: -Status post cardiac arrest witnessed-downtime of about 12 minutes. -Chronic kidney disease stage III from nephrosclerosis -Acute kidney injury possibly ATN- worsening, progress to end-stage kidney disease. 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 -acute hypoxic respiratory failure, on ventilator -extubated October 30 -Hypotensive and/or septic shock requiring pressor support-now on midodrine -Significant edema due to third spacing from severe hypoalbuminemia -Stage II decubitus ulcer -Metabolic encephalopathy-worsening not improving -Court-appointed legal guardian. -Severe metabolic acidosis, from renal failure -DO NOT RESUSCITATE Disposition: Patient Patient Condition at Discharge: Poor Plan - Discharge Summary Discharge Rx Participant: No New Discharge Prescriptions: No Action Levothyroxine Sodium [Synthroid] 25 mcg PO DAILY amLODIPine [Norvasc] 5 mg PO DAILY Sodium Bicarbonate 650 mg PO Q8H Epoetin Von-Epbx [Retacrit] 4,000 units SQ Q7D Escitalopram [Lexapro] 10 mg PO DAILY Gabapentin [Neurontin] 400 mg PO HS HYDROcodone/APAP 10-325MG [Denbo 10-325] 1 tab PO Q4HR PRN PRN Reason: Pain Ipratropium-Albuterol Nebulize [Duoneb 0.5 mg-3 mg/3 ml Soln] 3 ml INHALATION RT-QID Metoprolol Tartrate [Lopressor] 75 mg PO BID Omeprazole [PriLOSEC] 20 mg PO BID Discharge Medication List Levothyroxine Sodium [Synthroid] 25 mcg PO DAILY 10/19/18 [History] Sodium Bicarbonate 650 mg PO Q8H 06/18/19 [History] amLODIPine [Norvasc] 5 mg PO DAILY 06/18/19 [History] Epoetin Von-Epbx [Retacrit] 4,000 units SQ Q7D 10/27/19 [History] Escitalopram [Lexapro] 10 mg PO DAILY 10/27/19 [History] Gabapentin [Neurontin] 400 mg PO HS 10/27/19 [History] HYDROcodone/APAP 10-325MG [Denbo 10-325] 1 tab PO Q4HR PRN 10/27/19 [History] Ipratropium-Albuterol Nebulize [Duoneb 0.5 mg-3 mg/3 ml Soln] 3 ml INHALATION RT-QID 10/27/19 [History] Metoprolol Tartrate [Lopressor] 75 mg PO BID 10/27/19 [History] Omeprazole [PriLOSEC] 20 mg PO BID 10/27/19 [History] Follow up Appointment(s)/Referral(s): Obed Smith DO [Primary Care Provider] - 1-2 days Discharge Disposition: - Preliminary Cause of Preliminary Cause of : Pneumonia
--- NOTE | 2019-11-14 10:15 | CDI ---
Documentation Clarification Form Mortality Review Date: 11/14/2019 10:12:28 AM From: Bisi Allred RN, CCDS Admit Date: 10/27/2019 12:14:00 PM Patient Name: Twin Enamorado Visit Number: [id number] Discharge Date: 11/10/2019 11:11:00 PM ATTENTION: The Clinical Documentation Specialists (CDI) and [facility] Coding Staff appreciate your assistance in clarifying documentation. Please respond to the clarification below the line at the bottom and electronically sign. The CDI & [facility] Coding staff will review the response and follow-up if needed. Please note: Queries are made part of the Legal Health Record. If you have any questions, please contact the author of this message via ITS. Dr. John Elliott The patient presented w dyspnea, unresponsive with PEA with a downtime of about 20 minutes with CPR and was placed on mechanical ventilation. Acute hypoxic respiratory has been documented consistently in a patient that was on home O2 OTC. Please provide clinical significance. History/Risk Factors: Asthma, Aspiration Pneumonia with Peg tube, renal failure, ETOH Tobacco use: unknown Home oxygen: ATC Clinical Indicators: 10/26 0810 Admission Vital signs: Temp 91 rectal, HR 97, RR 18 BVM, B/P 160/99, Spo2 98% BVM Pulse oximetry: 98-100% on mechanical ventilation intubated in EC 10/26 H&P: Lung/Breathing assessment:"PULMONARY: Chest is clear to auscultation, no wheezing or crackles." 10/26 0945 ABG/CBG: pH 6.9 pO2: >400 pCO2 37 HCO3 7 Lactate -25.7 Treatment: Breathing TX: 10/29-10/31 Duoneb Continuous Pulse ox per ICU Protocol O2/Vent/BiPap: mechanical vent weaning as tolerated, extubated to 6L NC, then placed on BiPap, weaning to 10L high flow NC In your professional opinion, can you please clarify if these findings signify one of the following conditions? Acute on Chronic Hypoxic Respiratory Failure Acute on Chronic Hypercapnic Respiratory Failure Other Diagnosis, please specify Unable to determine see D/C summary - no change in diagnosis MTDD
--- NOTE | 2019-11-14 13:06 | CDI ---
Documentation Clarification Form Mortality review Date: 11/14/2019 12:49:39 PM From: Bisi Allred RN, CCDS Admit Date: 10/27/2019 12:14:00 PM Patient Name: Twin Enamorado Visit Number: [id number] Discharge Date: 11/10/2019 11:11:00 PM ATTENTION: The Clinical Documentation Specialists (CDI) and [facility] Coding Staff appreciate your assistance in clarifying documentation. Please respond to the clarification below the line at the bottom and electronically sign. The CDI & [facility] Coding staff will review the response and follow-up if needed. Please note: Queries are made part of the Legal Health Record. If you have any questions, please contact the author of this message via ITS. Dr. John Elliott A pressure ulcer was documented in the Progress notes and requires a location to be documented by the MD. History/Risk Factors: Cardiac arrest, CKD stage 3, MUMTAZ with ATN, Moderate PCM, Quadriparesis from critical care myopathy Clinical Indicators: 10/28- D/C Summary Attending: DERMATOLOGICAL: "Stage II decubital ulcers 10/27-11/05 Nursing Assessments Location: Lower Sacrum 10/25-11/05 Nursing Assessments Wound description: Stage 2 with periwound erythema, without drainage Treatment: Foam with border dressing Elements for accurate and compliant documentation of an ulcer: *The location/laterality of the ulcer *Etiology (Decubitus/pressure, diabetic, PVD) *Stage I-IV, Unstageable, Suspected Deep Tissue Injury (To the deepest stage) *If the ulcer was present at admission (POA) or occurred after admission In your professional opinion, can you please clarify the diagnosis, location, laterality and whether present on admission (POA): Lower Sacral stage 2 Decubitus (specify if POA or acquired during stay and cause if known) Other condition, please specify Unable to determine Please indicate etiology of pressure ulcer (if known). (Last Revision: January 2017) sacral stage 2 decubitus,POA MTDD
== END 2019-11-10 23:11 | disposition expired | DRG 870 ==
LOC: EC 08:05 → EEVIPCON 12:14 → 2SICU 12:14
PROVIDERS: ADMIT Hospitalist; ATTEND Hospitalist
PROC: 04HY32Z Insertion of Monitoring Device into Lower Artery, Percutaneous Approach (ICD-10-PCS; principal; 2019-10-27)
PROC: 3E033XZ Introduction of Vasopressor into Peripheral Vein, Percutaneous Approach (ICD-10-PCS; principal; 2019-10-27)
PROC: 5A12012 Performance of Cardiac Output, Single, Manual (ICD-10-PCS; principal; 2019-10-27)
PROC: 5A1955Z Respiratory Ventilation, Greater than 96 Consecutive Hours (ICD-10-PCS; principal; 2019-10-27)
PROC: 02HV33Z Insertion of Infusion Device into Superior Vena Cava, Percutaneous Approach (ICD-10-PCS; principal; 2019-10-27)
PROC: 4A133J1 Monitoring of Arterial Pulse, Peripheral, Percutaneous Approach (ICD-10-PCS; principal; 2019-10-27)
PROC: 4A133B1 Monitoring of Arterial Pressure, Peripheral, Percutaneous Approach (ICD-10-PCS; principal; 2019-10-27)
PROC: 5A09557 Assistance with Respiratory Ventilation, Greater than 96 Consecutive Hours, Continuous Positive Airway Pressure (ICD-10-PCS; 2019-11-03)
PROC: 06HM33Z Insertion of Infusion Device into Right Femoral Vein, Percutaneous Approach (ICD-10-PCS; 2019-11-07)
PROC: 5A1D70Z Performance of Urinary Filtration, Intermittent, Less than 6 Hours Per Day (ICD-10-PCS; 2019-11-08)
DX: A41.9 Sepsis, unspecified organism (principal); G93.41 Metabolic encephalopathy; G82.50 Quadriplegia, unspecified; J69.0 Pneumonitis due to inhalation of food and vomit; N17.0 Acute kidney failure with tubular necrosis; N18.6 End stage renal disease; R65.21 Severe sepsis with septic shock; R40.2312 Coma scale, best motor response, none, at arrival to emergency department; R40.2112 Coma scale, eyes open, never, at arrival to emergency department; R40.2212 Coma scale, best verbal response, none, at arrival to emergency department; K72.01 Acute and subacute hepatic failure with coma; J96.01 Acute respiratory failure with hypoxia; J15.211 Pneumonia due to Methicillin susceptible Staphylococcus aureus; D68.4 Acquired coagulation factor deficiency; E44.0 Moderate protein-calorie malnutrition; R64 Cachexia; E87.0 Hyperosmolality and hypernatremia; E87.4 Mixed disorder of acid-base balance; G72.81 Critical illness myopathy; G93.1 Anoxic brain damage, not elsewhere classified; I45.89 Other specified conduction disorders; I47.2 Ventricular tachycardia; K76.6 Portal hypertension; K86.1 Other chronic pancreatitis; I12.0 Hypertensive chronic kidney disease with stage 5 chronic kidney disease or end stage renal disease; I67.82 Cerebral ischemia; Z20.828 Contact with and (suspected) exposure to other viral communicable diseases; Z66 Do not resuscitate; Z51.5 Encounter for palliative care; D63.1 Anemia in chronic kidney disease; D69.6 Thrombocytopenia, unspecified; E03.9 Hypothyroidism, unspecified; E16.2 Hypoglycemia, unspecified; Z68.21 Body mass index [BMI] 21.0-21.9, adult; E83.51 Hypocalcemia; E87.6 Hypokalemia; F10.21 Alcohol dependence, in remission; E88.09 Other disorders of plasma-protein metabolism, not elsewhere classified; E87.70 Fluid overload, unspecified; I25.2 Old myocardial infarction; I27.20 Pulmonary hypertension, unspecified; I46.9 Cardiac arrest, cause unspecified; I44.0 Atrioventricular block, first degree; J43.9 Emphysema, unspecified; K70.0 Alcoholic fatty liver; K20.8 Other esophagitis; K70.30 Alcoholic cirrhosis of liver without ascites; L89.152 Pressure ulcer of sacral region, stage 2; R13.10 Dysphagia, unspecified; N50.89 Other specified disorders of the male genital organs; Z79.890 Hormone replacement therapy; T68.XXXA Hypothermia, initial encounter; Z79.899 Other long term (current) drug therapy; Z80.3 Family history of malignant neoplasm of breast; Z80.8 Family history of malignant neoplasm of other organs or systems; Z86.73 Personal history of transient ischemic attack (TIA), and cerebral infarction without residual deficits; Z87.01 Personal history of pneumonia (recurrent); Z87.440 Personal history of urinary (tract) infections; Z93.1 Gastrostomy status; Z96.1 Presence of intraocular lens; Z98.41 Cataract extraction status, right eye; Z98.42 Cataract extraction status, left eye; Z99.81 Dependence on supplemental oxygen; Z53.8 Procedure and treatment not carried out for other reasons; G89.29 Other chronic pain; K52.9 Noninfective gastroenteritis and colitis, unspecified; Z87.442 Personal history of urinary calculi; Z99.3 Dependence on wheelchair; R73.9 Hyperglycemia, unspecified; J45.909 Unspecified asthma, uncomplicated; E56.9 Vitamin deficiency, unspecified; G47.00 Insomnia, unspecified; Z87.19 Personal history of other diseases of the digestive system
CPT/HCPCS: 36415; 36430; 36556; 36573; 36600; 70450; 71045; 71250; 74176; 80048; 80053; 80074; 80076; 80202; 82040; 82140; 82247; 82330; 82533; 82553; 82805; 83605; 83690; 83735; 84100; 84132; 84443; 84450; 84460; 84484; 85025; 85027; 85610; 85730; 86850; 86900; 86901; 86920; 87040; 87070; 87077; 87086; 87186; 87205; 90935; 92950; 93005; 93306; 94002; 94003; 94640; 94660; 95816; 96365; 96366; 96368; 96375; 96376; 99291